=== PATIENT | male | born 1945 | race Caucasian/White ===

== ENCOUNTER 2024-05-09 10:30 | Emergency (ER) | payer MEDICARE, BC, SELFPAY ==
[2024-05-09 10:31] VITALS: BP 135/77; PULSE 113; RESP 18; TEMP 36.7; O2SAT 99
[2024-05-09] MEDS: Morphine 4 MG/ML Syringe IV (12:15)
[2024-05-09] MEDS: Ondansetron 4 MG/2 ML Vial IV (12:15)
[2024-05-09] MEDS: 0.9% Normal Saline (1000mL) 1,000 ML 999 ML IV (12:15)
--- NOTE | 2024-05-09 12:19 | EX.ED.DYSGE1 ---
HPI History of Present Illness Chief Complaint: Abd Pain Narrative Narrative: Chief complaint and HPI: Abdominal pain. 78-year-old male with history of untreated prostate cancer and remote history of kidney stones presents for evaluation of abdominal pain. Patient states 2 weeks ago he fell and since then has been having abdominal pain. He states originally the pain started in the right side of his back but then radiated to the right lower quadrant. He describes it as sharp. Worse with palpation and movement. Patient endorses 3 days of constipation. He has been eating and drinking. He endorses good urination. He denies any fever, chills, shortness of breath, chest pain, nausea, vomiting, dysuria, testicular pain. Denies history abdominal surgeries. Review of systems: See HPI Medications: As listed on the chart Allergies: As listed on the chart PFSH: Per chart Vital signs: As listed on the chart. Reviewed. Physical exam: Gen: A&O x3, NAD Head: Normocephalic, atraumatic Eyes: No sclera icterus, conjunctiva clear ENT: Moist mucous membranes Neck: Trachea midline, No JVD CV: RRR, no murmurs, no peripheral edema Resp: Lungs CTA BL, no w/r/c GI: Abd soft, non-distended, tender to palpation in the right lower quadrant and suprapubic region, + guarding, no rebound or rigidity : Circumcised penis. No penile tenderness or discharge. No penile or testicular swelling. Normal lie and position of the testicles. No testicular tenderness, masses, or skin changes. Cremasteric reflexes intact and equal bilaterally. No rashes. No palpable hernias. No CVA tenderness Musc: Full ROM, no deformity, no midline spinal tenderness , no bony step-off Skin: Warm, dry Neuro: Alert, oriented, grossly intact, sensation intact Psych: Cooperative, appropriate mood and affect PFSH PFSH Medical History no medical history Allergy/AdvReac Type Severity Reaction Status Date / Time No Known Allergies Allergy Verified 05/09/24 10:30 Family History no significant family his Surgical History no surgical history Social History Smoking Status: Never smoker EXAM Physical Exam Const Vital Signs: 05/09/24 10:31 05/09/24 12:30 05/09/24 14:00 Temperature 98.1 F Temperature Source Oral Pulse Rate 113 H 81 91 Respiratory Rate 18 16 16 Blood Pressure 135/77 H 126/81 H 114/69 Blood Pressure Mean 96 96 84 Pulse Ox 99 98 98 Oxygen Delivery Method Room Air Room Air Room Air MDM MDM MDM Narrative Medical decision making narrative: 78-year-old male with history of untreated prostate cancer and remote history of kidney stones presents for evaluation of abdominal pain. Differential diagnosis includes but is not limited to urolithiasis, UTI, appendicitis, colitis, constipation, electrolyte abnormality. NS bolus, morphine, Zofran ordered. Abdominal pain workup ordered. CBC without leukocytosis or anemia. CMP relatively unremarkable without USAMA, transaminitis. Lactic unremarkable. Lipase unremarkable. UA negative for UTI. CT abdomen pelvis shows mild hiatal hernia. Unremarkable appendix. Colonic diverticulosis without acute diverticulitis. Mildly enlarged prostate gland with distention of the urinary bladder, possible bladder outlet obstruction. On reviewing the imaging myself, patient's bladder is distended. He has been urinating here in the emergency department. Patient urinated 600 mL however on postvoid bladder scan he still had a liter in his bladder. I suspect his pain is secondary to urinary retention. Chowdhury catheter placed. On reexamination, patient's pain is improved with the Chowdhury placement. I suspect this is secondary to his prostate enlargement from his known prostate cancer. Patient is stable to discharge home. He will discharge home with a Chowdhury catheter. Follow-up with urology. He confirmed understanding. Return precautions explained. Impression: 1. Urinary retention 2. Enlarged prostate from known prostate cancer Lab Data Labs: Laboratory Results - last 24 hr 05/09/24 05/09/24 05/09/24 10:51 12:20 12:40 WBC 7.9 RBC 3.65 L Hgb 13.0 Hct 37.2 L MCV 101.9 H MCH 35.6 H MCHC 34.9 RDW Std Deviation 47.8 H RDW Coeff of Jam 12.8 Plt Count 175 MPV 9.2 Immature Gran % (Auto) 0.400 Neut % (Auto) 71.0 H Lymph % (Auto) 18.1 L Sur[place] % (Auto) 8.3 Eos % (Auto) 1.6 Baso % (Auto) 0.6 Absolute Neuts (auto) 5.6 Absolute Lymphs (auto) 1.44 Nucleated RBC % 0 Differential Comment Not Reportable Platelet Estimate Not Reportable Sodium 137 Potassium 3.8 Chloride 103 Carbon Dioxide 24.0 Anion Gap 10 BUN 19 H Creatinine 1.03 Est GFR (MDRD) Af Amer 89 Est GFR (MDRD) Non-Af 74 BUN/Creatinine Ratio 18.4 Glucose 117 H Lactic Acid 1.1 Calcium 9.6 Total Bilirubin 0.70 AST 24 ALT 32 Alkaline Phosphatase 78 Total Protein 7.7 Albumin 4.3 Globulin 3.4 Albumin/Globulin Ratio 1.3 Lipase 32 Urine Color Straw Urine Clarity Clear Urine pH 6.0 Ur Specific [place] 1.020 Urine Protein Negative Urine Glucose (UA) Normal Urine Ketones Negative Urine Occult Blood Negative Urine Nitrite Negative Urine Bilirubin Negative Urine Urobilinogen Normal Ur Leukocyte Esterase Negative Urine RBC 0 SEEN Urine WBC 0 SEEN Ur Squamous Epith Cells 0 SEEN Urine Bacteria 0 SEEN Urine Mucus 0 SEEN Radiography Diagnostic Testing: Clinical Impression(s) from Imaging Studies Abdomen/Pelvis CT 05/09/24 13:27 IMPRESSION: Mild hiatal hernia. Unremarkable appendix. Colonic diverticulosis without acute diverticulitis. Mildly enlarged prostate gland with distention of the urinary bladder, possible bladder outlet obstruction. Electronically Signed: Daphne Duggan MD at 14:06 EST Reading Location ID and State: [facility] / [place] Tel , Service support , Discharge Plan Triage Chief Complaint: Abd Pain ED Provider: Marin Platt Dx/Rx/DC Orders Clinical Impression: Acute urinary retention Instructions: ED Urinary Retention, Male Primary Care Provider: Ailin Magallon Referrals: Ailin Magallon MD [Primary Care Provider] - 3-5 Days Aron Soto MD [Med Staff - Active Staff] - 3-5 Days Activity Restrictions/Additional Instructions: Follow-up with urology and PCP. Chowdhury to remain in until removed by urology. Print Language: Yakut Disposition Disposition: Home, Self Care Discharge Date/Time: 05/09/24 15:36
[2024-05-09 12:30] VITALS: BP 126/81; PULSE 81; RESP 16; O2SAT 98
[2024-05-09 12:34] LABS: Bacteria 0 SEEN /hpf (None Seen); Mucous, Urine 0 SEEN /hpf (<or=2+); Red Blood Cells-Urine 0 SEEN /hpf (0-5); Squamous Epithelial Cells - UA 0 SEEN /hpf (0-5); White Blood Cells 0 SEEN /hpf (0-5)
[2024-05-09 12:36] LABS: Color, Urine Straw (Yellow); Glucose, Dipstick Normal (Normal); Ketone-Dipstick Negative (Negative); Leukocyte Esterase-Dipstick Negative /ul (Negative); Nitrite-Dipstick Negative (Negative); Occult Blood-Urine Negative /ul (Negative); Protein-Dipstick Negative (Negative); Urine Bilirubin Dipstick Negative (Negative); Urine Clarity Clear (Clear); Urine Urobilinogen Normal (Normal)
[2024-05-09 12:49] LABS: Absolute Lymphocyte Count 1.44 X10^3/uL (0.83-4.51); Absolute Neutrophil Count 5.6 X10^3/uL (2.0-7.7); Basophil# 0.05 X10^3/uL; Basophil% 0.6 % (0-1); Eosinophil# 0.13 X10^3/uL; Eosinophils% 1.6 % (0-5); Hematocrit 37.2 % (40-54); Lymphocyte # 1.44 X10^3/ul (0.83-4.51); Lymphocyte % 18.1 % (19-41); Mean Corp Hgb Conc 34.9 g/dL (32-36); Mean Corpuscular Hgb 35.6 pg (27.0-32.0); Mean Corpuscular Volume 101.9 fL (80-94); Mean Platelet Vol. 9.2 fl (6.2-12.0); Monocyte# 0.66 X10^3/uL; Monocyte% 8.3 % (0-10); NRBC Flagged by Analyzer 0 % (0-5); Neutrophil # 5.63 X10^3/uL (2.7-7.7); Platelet Count 175 K/mm3 (150-450); RBC Distribution Width CV 12.8 % (11.6-14.6); RBC Distribution Width SD 47.8 fl (35.1-43.9); Red Blood Count 3.65 M/mm3 (4.6-6.2); White Blood Count 7.9 K/mm3 (4.4-11.0)
[2024-05-09 13:08] LABS: ALB/GLOB Ratio 1.3 RATIO (0.9-2.4); AST(SGOT) 24 U/L (15-37); Alanine Aminotransfer ALT/SGPT 32 U/L (16-61); Albumin, Serum 4.3 g/dL (3.2-5.0); Alkaline Phosphatase 78 U/L (45-117); Anion Gap 10 (5-15); BUN 19 mg/dL (7-18); BUN/Creat Ratio 18.4 RATIO (10-20); Calcium,Total 9.6 mg/dL (8.5-10.1); Chloride 103 mmol/L (98-107); Creatinine, Serum 1.03 mg/dL (0.70-1.30); EST Glomerular Filtration Rate 74 mL/min (>60); Est Glom Filt Rate - Afr Amer 89 mL/min (>60); Globulin 3.4 g/dL (2.2-4.2); Glucose 117 mg/dL (74-106); Lipase 32 U/L (13-75); Potassium 3.8 mmol/L (3.5-5.1); Protein, Total 7.7 g/dL (6.4-8.2); Sodium Level 137 mmol/L (136-145)
[2024-05-09 13:18] LABS: Lactic Acid 1.1 mmol/L (0.4-1.9)
--- NOTE | 2024-05-09 13:27 | CT_ITS ---
HISTORY: Right lower quadrant abdominal pain. TECHNIQUE: Helically acquired images were obtained of the abdomen and pelvis after the intravenous administration of 100 mL Isovue-370. A radiation dose optimization technique was used for this scan. 499 images. COMPARISON: None. FINDINGS: LOWER CHEST: Small triangular juxtapleural nodules in the right lung base which do not require follow-up. BOWEL: Mild hiatal hernia. Bowel including appendix nondilated. No periappendiceal inflammation. Mild chronic diverticulosis without pericolonic inflammation. PERITONEUM: No significant ascites. LIVER: No enhancing mass. GALLBLADDER/BILIARY TREE: Gallbladder present. SPLEEN/PANCREAS: Homogeneous and nonenlarged. ADRENAL GLANDS: No nodules. KIDNEYS: No hydronephrosis. Simple cysts measuring up to 2.5 cm on the left; follow-up not indicated. VESSELS: No abdominal aortic aneurysm. Mild atherosclerosis of the abdominal aorta and its major branches. PELVIC ORGANS: 5.3 x 6.3 cm prostate gland. Distended urinary bladder. BONES: Degenerative change. CT/Abdomen/Pelvis W IV Cont ONLY IMPRESSION: Mild hiatal hernia. Unremarkable appendix. Colonic diverticulosis without acute diverticulitis. Mildly enlarged prostate gland with distention of the urinary bladder, possible bladder outlet obstruction. Electronically Signed: Daphne Duggan MD at 14:06 EST ,
[2024-05-09 14:00] VITALS: BP 114/69; PULSE 91; RESP 16; O2SAT 98
== END 2024-05-09 15:36 | disposition home or self-care (01) ==
PROVIDERS: Emergency Provider Surgery; PCP Internal Medicine; Visit Provider Surgery
DX: N40.1 Benign prostatic hyperplasia with lower urinary tract symptoms (principal); C61 Malignant neoplasm of prostate; R33.8 Other retention of urine; K44.9 Diaphragmatic hernia without obstruction or gangrene; K57.30 Diverticulosis of large intestine without perforation or abscess without bleeding; Z87.442 Personal history of urinary calculi
CPT/HCPCS: 51702; 74177; 80053; 81001; 83605; 83690; 85025; 96361; 96374; 96375; 99284; Q9967; A4216; J2405

== ENCOUNTER 2024-05-22 14:34 | Inpatient (IN) | payer MEDICARE, BC, SELFPAY ==
[2024-05-22 14:35] VITALS: BP 106/88; PULSE 76; RESP 18; TEMP 36.9; O2SAT 98; BMI 33.5
--- NOTE | 2024-05-22 14:53 | RAD_ITS ---
INDICATION: fall EXAMINATION/TECHNIQUE: X-RAY - XR Hip Unilateral with Pelvis when performed; 2-3 Views COMPARISON: No relevant prior comparison study available FINDINGS: PELVIC BONES: No displaced fracture, destructive or sclerotic lesions. Note that overlapping bowel shadows may however obscure fine detail. Sacroiliac joints are unremarkable. No widening of the pubic symphysis. HIPS: There are degenerative changes of the head characterized by joint space narrowing, subchondral sclerosis and marginal osteophytes. SOFT TISSUES: No soft tissue swelling or gas. RAD/HIP, UNI W/ Pelvis 2-3 Views IMPRESSION: Degenerative changes of the hips. Electronically Signed: Marielena Roper MD at 16:23 EST ,
--- NOTE | 2024-05-22 14:53 | EKG12_ITS ---
Test Reason : WEAKNESS Blood Pressure : */* mmHG Vent. Rate : 75 BPM Atrial Rate : 75 BPM P-R Int : 156 ms QRS Dur : 120 ms QT Int : 406 ms P-R-T Axes : 15 -53 36 degrees QTcB Int : 453 ms Sinus rhythm with Premature atrial complexes Left anterior fascicular block Septal infarct , age undetermined Abnormal ECG Confirmed by GREGORIO BHARDWAJ, REJI ([id number]), rewrite editor HARI PINEDA ([id number]) on 05/24/2024 2:16:33 PM Referred By: Mich Stokes Confirmed By: REJI PERKINS MD
--- NOTE | 2024-05-22 14:53 | RAD_ITS ---
INDICATION: fall EXAMINATION/TECHNIQUE: X-RAY - RIGHT XR Elbow Min 3 Views COMPARISON: No relevant prior comparison study available FINDINGS: SOFT TISSUES: No soft tissue swelling or gas. No radiopaque foreign body. BONES/JOINTS: There are intra-articular lucencies within the coronoid process. No dislocation is visualized. Normal alignment. No sclerotic or destructive changes observed. RAD/Elbow min 3 Views IMPRESSION: Findings concerning for a nondisplaced coronoid process fracture. Electronically Signed: Marielena Roper MD at 16:18 EST ,
--- NOTE | 2024-05-22 14:53 | CT_ITS ---
INDICATION: fall and trauma EXAMINATION: CT BRAIN - CT Head or Brain W/O Contrast Injection TECHNIQUE: Multiple axial images were obtained of the head without intravenous contrast. The protocol utilizes one or more of the following dose reduction techniques: automated exposure control, adjustment of mA and/or kV according to patient size,and/or use of iterative reconstruction technique. IV Contrast dosage and agent: None. RADIATION DOSAGE (If Supplied By Facility): CTDIvol = ( 44.99 ) mGy, DLP = ( 863.60 ) mGycm COMPARISON: No relevant prior comparison study available FINDINGS: BRAIN PARENCHYMA: No intra- or extra-axial hemorrhage. No evidence of acute infarct. No intracranial mass or mass effect. There is preservation of the lester/white matter interface. Posterior fossa structures are unremarkable. CSF SPACES: Appropriate for age. No hydrocephalus. Basal cisterns are patent. CALVARIUM, SKULL BASE, PARANASAL SINUSES AND MASTOID AIR CELLS: There is minimal opacification of the paranasal sinuses. There is a separate dedicated CT report of the maxillofacial bones. No discrete lytic or blastic abnormalities. ORBITS: Both globes, extraocular muscles, optic nerves and retrobulbar fat appear unremarkable. ASPECTS Score for Acute Strokes: 10 CT/Brain/Head without Contrast IMPRESSION: No acute intracranial process. Mild pansinusitis. Electronically Signed: Marielena Roper MD at 15:58 EST ,
--- NOTE | 2024-05-22 14:56 | ED.VIS.FALL ---
HPI HPI - Fall History of Present Illness Chief Complaint: Fall Informant: patient and family ( adult son) Occured/Mechanism Occurred: Today and Yesterday Mechanism/Context: Yes same level fall and Yes slip Usually ambulates: Without assistance Pain/Injury Pain Location: head, pelvis, upper extremity and lower extremity Quality of Pain: Dull and Aching Current Severity: Mild Maximum Severity: Mild Associated Symptoms Associated Symptoms: Positive for Weakness; Negative for Parasthesias, Loss of function, Loss of consciousness or Amnesia Narrative Narrative: 78-year-old male past medical history of prostate cancer will review his trouble urinating often has to self cath. Also has a left knee and left shoulder replacement. Last night he was in bed probably around 7 or 8:00. He talked to his son right before that. And he was trying to get out of bed he can a rolled off the bed on the ground and was unable to get up after that time. Denies any LOC. Does state he hit the back of his head when he fell from the bed. He is not on blood thinners. He denies any neck or back pain. He denies any chest or abdominal pain. He also has some mild discomfort to his right elbow and left hip. States over the last several days he has had a fever as high as 1013. Denies any dysuria. No abdominal pain. No rash or significant cough. Prior similar symptoms: No Recent Illness/Hospitalization: No PFSH PFSH Medical History Hypertension Allergy/AdvReac Type Severity Reaction Status Date / Time No Known Allergies Allergy Verified 05/22/24 14:38 Surgical History Knee joint replacement status H/O shoulder replacement Shoulder joint replacement by other means Social History housing: house Smoking Status: Never smoker ROS ROS ED ROS Narrative Fever. Generalized weakness. Constitutional Constitutional ED: Reports fever(s) Eyes Eyes: Denies blurry vision ENT ENT ED: Denies ear pain Cardiovascular Cardiovascular: Denies chest pain Respiratory/Chest Respiratory/Chest: Denies cough or dyspnea Gastrointestinal Gastrointestinal: Denies abdominal pain Genitourinary Genitourinary ED: Denies dysuria or hematuria Musculoskeletal Musculoskeletal: Denies arthralgias Integumentary Denies abscess Neurologic Neurologic: Denies headache(s) Psychiatric Psychiatric: Denies anxiety Endocrine Endocrinology: Denies polydipsia or polyphagia Hematologic/Lymphatic Hematologic/Lymphatic: Denies easy bleeding or easy bruising Allergic/Immunologic Allergic/Immunologic ED: Denies mouth swelling, tongue swelling or urticaria EXAM Physical Exam Narrative Exam Narrative: 78-year-old male lying flat in bed. Son present in the room also one of her nurses. Vital signs are stable currently is afebrile 98.4. He does not look septic or toxic. Currently he is in no distress. H EENT exam pupils round react light. Moist mucous membranes. There is no hematoma or laceration to his scalp. No trauma to his face. Neck and is nontender. Trachea midline. Lungs clear to auscultation bilaterally. Heart regular rhythm rate about 75 no murmur. Chest wall ribs nontender. Abdomen soft nontender. Nursed is already straight cath patient. He is put out about 800 cc of yellow urine. No blood is not cloudy. He is moving all 4 extremities. No gross bony deformity. Mild tenderness to his right elbow and left lateral hip. No deformity. Normal transmitter supervisor strength. Shoulders are nontender. He is able to flex and extend both knees dorsi and plantarflex both ankles. There is no shortening or rotation. Skin unremarkable. He is awake and alert. He knows he is in the hospital. He knows his April is tomorrow. He is answering questions and following commands. Const Vital Signs: 05/22/24 14:35 05/22/24 14:38 05/22/24 16:34 Temperature 98.4 F Temperature Source Oral Pulse Rate 76 Respiratory Rate 18 Respiratory Effort Normal Non-Labored Respiratory Depth Normal Respiratory Pattern Normal Blood Pressure 106/88 H Blood Pressure Mean 94 Pulse Ox 98 99 Oxygen Delivery Method Room Air Room Air 05/22/24 16:34 Temperature Temperature Source Pulse Rate 77 Respiratory Rate 16 Respiratory Effort Respiratory Depth Respiratory Pattern Blood Pressure 124/78 H Blood Pressure Mean 93 Pulse Ox 99 Oxygen Delivery Method Positive well nourished and well developed; Negative for cachectic, contractures or unkempt General Appearance ED: well developed and NAD; Negative for unkempt, cachectic or contractures Nutritional Appearance: Negative for cachectic HEENT Reports normocephalic HEENT Narrative: History of head trauma but no hematoma or laceration. No significant scalp tenderness. atraumatic; Negative for contusion, hematoma or tenderness Eyes PERRL and EOMs intact bilaterally General Eye ED: Negative for pale conjunctiva or scleral icterus Neck full ROM, no lymphadenopathy and supple General: Negative for tenderness Chest Wall inspection of chest normal and palpation of chest normal Resp normal respiratory effort, no retractions and clear to auscultation bilaterally Auscultation: Negative for rales, rhonchi, wheezes or diminished lung sounds Cardio regular rate, regular rhythm, S1 normal heart sound, S2 normal heart sound and no murmurs Rate: Negative for bradycardia or tachycardic GI non-tender, non-distended and no masses Inspection: Negative for abdominal distention Palpation: soft; Negative for guarding or rebound tenderness present Back/Spine no CVA tenderness Cervical Spine: Negative for cervical spine tenderness Thoracic Spine / Upper Back: Negative for ROM limited Lumbar Spine / Lower Back: Negative for lumbar spinal tenderness Neuro oriented x3, CN's II-XII intact bilaterally, moves all extremities and no focal motor deficits [place] Coma Scale: document GCS findings Spontaneous Obeys Commands Oriented 15 Sensorium / Orientation: alert, oriented to person, oriented to place and oriented to time; Negative for orientation impaired, confused, lethargic or stuporous Motor Exam: strength 5/5 throughout; Negative for general weakness Psych Appearance: Negative for unkempt Skin Lesions: no lesions Rashes: no rashes MDM MDM MDM Narrative Medical decision making narrative: 78-year-old male fell last night around 7:00 flight on the floor the today he was found by family. Complaining of mild right elbow and left hip discomfort. States he hit his head was not knocked out is not on blood thinners. He is also recently had a fever of the last several days but not currently. He will undergo septic workup with a CAT scan of his head due to head trauma and x-ray of his right elbow and his left hip. He is receiving IV fluids. CPK-MB done to determine if he is in rhabdomyolysis. Repeat exam at 5:05 PM patient doing well. Both sons are present in the room. I went over all the different diagnoses with them including his leukocytosis, UTI, right elbow fracture and I explained that while we are in the room with the nurses. We placed a Chowdhury catheter due to his urinary retention and need to monitor his fluids in's and outs. Also has rhabdomyolysis. He will be admitted to the hospitalist to have on page. History & Record Review Discussion w/independent historian: Patient and Family Additional record(s) reviewed:: Prior inpatient record, Prior outpatient record, Prior ED visit, Prior labs and No prior records Lab Data Attestation: I reviewed the patient's lab results. Lab results narrative: COVID, flu and RSV negative. CBC shows an elevated white count of 14.9. H&H 12.9 and 38. Platelets 205. PT/INR is 16 and 1. PTT 33. Electrolytes show a gap of 6. BUN of 22 creatinine 0.94. Glucose 105. Lactic acid 2. Liver enzymes unremarkable AST 248. CPK elevated at 9519. Urinalysis positive nitrates. 5-10 red cells 25-50 white cells 2+ bacteria culture will be sent. To be treated for UTI. Labs: Laboratory Results - last 24 hr 05/22/24 05/22/24 15:13 15:27 WBC 14.9 H RBC 3.69 L Hgb 12.9 L Hct 38.1 L MCV 103.3 H MCH 35.0 H MCHC 33.9 RDW Std Deviation 49.2 H RDW Coeff of Jam 12.9 Plt Count 205 MPV 9.0 Immature Gran % (Auto) 0.500 Neut % (Auto) 83.4 H Lymph % (Auto) 7.7 L Bonner % (Auto) 7.6 Eos % (Auto) 0.2 Baso % (Auto) 0.6 Absolute Neuts (auto) 12.4 H Absolute Lymphs (auto) 1.15 Nucleated RBC % 0 PT 16.1 H INR 1.3 APTT 33.5 Sodium 140 Potassium 4.2 Chloride 107 Carbon Dioxide 26.0 Anion Gap 6 BUN 22 H Creatinine 0.94 Estim Creat Clear Calc 81.06 Est GFR (MDRD) Af Amer 99 Est GFR (MDRD) Non-Af 82 BUN/Creatinine Ratio 23.4 H Glucose 105 Lactic Acid 2.0 Calcium 9.2 Total Bilirubin 0.60 AST 248 H ALT 75 H Alkaline Phosphatase 79 Total Creatine Kinase 9519 H Total Protein 7.8 Albumin 3.2 Globulin 4.6 H Albumin/Globulin Ratio 0.7 L Urine Color Yellow Urine Clarity Sl. Cloudy Urine pH 5.0 Ur Specific [place] 1.025 Urine Protein 100 H Urine Glucose (UA) Normal Urine Ketones 5 H Urine Occult Blood 250 H Urine Nitrite Positive H Urine Bilirubin Negative Urine Urobilinogen Normal Ur Leukocyte Esterase 100 H Urine RBC 5-10 SEEN Urine WBC 25-50 SEEN Ur Squamous Epith Cells 0 SEEN Urine Bacteria 2+ Urine Mucus 1+ Radiography Chest X-Ray - ED: 1 View, Read by ED Physician, Read by Radiologist, Heart, Lungs, Mediastinum, Bony Structures, No Acute Disease and Chronic Changes Diagnostic Testing: Clinical Impression(s) from Imaging Studies Brain CT 05/22/24 14:53 IMPRESSION: No acute intracranial process. Mild pansinusitis. Electronically Signed: Marielena Roper MD at 15:58 EST , Elbow X-Ray 05/22/24 14:53 IMPRESSION: Findings concerning for a nondisplaced coronoid process fracture. Electronically Signed: Marielean Roper MD at 16:18 EST , Hip/Pelvis X-Ray 05/22/24 14:53 IMPRESSION: Degenerative changes of the hips. Electronically Signed: Marielena Roper MD at 16:23 EST , Cervical Spine CT 05/22/24 15:43 IMPRESSION: Multilevel degenerative changes. Status post anterior fusion of C4-C7. Electronically Signed: Marielena Roper MD at 16:04 EST , Facial/Sinus 05/22/24 15:43 IMPRESSION: No acute osseous injury. Mild pansinusitis. Electronically Signed: Marielena Roper MD at 16:12 EST , Chest X-Ray 05/22/24 15:50 IMPRESSION: No radiographic evidence of acute cardiopulmonary disease. Electronically Signed: Marielena Roper MD at 16:13 EST , Chest x-ray, portable, single view interpreted by myself and radiologist shows no acute abnormality. Chronic changes. No pneumonia. Normal cardiac silhouette. Right elbow x-ray interpreted by myself and radiologist. Very questionable nondisplaced right coronoid process fracture. Procedures Upper Extremity Splints Upper Extremity Splint: Orthoglass and Long arm Splint Fabrication: Fabricated (Well-padded Ortho-Glass.) Location: Right Critical Care Time Critical Care Time: Yes Critical care time (excluding procedures): 30-74 minutes, Including time spent:, Discussing w/Patient &/or Family/Paint Technician, Discussing w/Consultants, Arranging Admission or Transfer, Performing Direct Patient Care at Bedside and - (33 minutes) Discharge Plan Dx/Rx/DC Orders Clinical Impression: Fall, Rhabdomyolysis, Fever, Acute UTI, Weakness, Closed fracture of right elbow, Leukocytosis, Acute on chronic urinary retention Disposition Disposition: [facility]
[2024-05-22 15:17] LABS: Squamous Epithelial Cells - UA 0 SEEN /hpf (0-5)
[2024-05-22 15:19] LABS: Color, Urine Yellow (Yellow); Glucose, Dipstick Normal (Normal); Ketone-Dipstick 5 mg/dl (Negative); Leukocyte Esterase-Dipstick 100 /ul (Negative); Nitrite-Dipstick Positive (Negative); Occult Blood-Urine 250 /ul (Negative); Protein-Dipstick 100 mg/dl (Negative); Specific Gravity, Urine 1.025 (1.002-1.030); Urine Bilirubin Dipstick Negative (Negative); Urine Clarity Sl. Cloudy (Clear); Urine Urobilinogen Normal (Normal)
[2024-05-22] MEDS: 0.9% Normal Saline (1000mL) 1,000 ML 999 ML IV (15:35)
[2024-05-22 15:40] LABS: White Blood Cells 25-50 SEEN /hpf (0-5)
[2024-05-22 15:41] LABS: Red Blood Cells-Urine 5-10 SEEN /hpf (0-5)
[2024-05-22 15:42] LABS: Mucous, Urine 1+ /hpf (<or=2+)
[2024-05-22 15:43] LABS: Bacteria 2+ /hpf (None Seen)
--- NOTE | 2024-05-22 15:43 | CT_ITS ---
INDICATION: FALL,INJURY EXAMINATION: CT CERVICAL SPINE - CT Spine Cervical W/O Contrast Injection TECHNIQUE: Helically acquired images were obtained of the cervical spine. 2D reformatted images were reviewed. The protocol utilizes one or more of the following dose reduction techniques: automated exposure control, adjustment of mA and/or kV according to patient size,and/or use of iterative reconstruction technique. IV Contrast dosage and agent: None. RADIATION DOSAGE (If Supplied By Facility): CTDIvol = ( 25.59 ) mGy, DLP = ( 500.06 ) mGycm COMPARISON: CT of the neck soft tissues FINDINGS: VERTEBRAE: There is evidence of prior anterior fusion of C4-C7 with a plate and screw fixation device. There is multilevel facet hypertrophy. No fracture or traumatic subluxation. No discrete lytic or blastic abnormality. Normal alignment. Normal craniocervical junction and cervicothoracic junction. DISCS and SPINAL CANAL: There is multilevel degenerative disc disease. No critical stenosis. NECK SOFT TISSUES: No prevertebral soft tissue swelling. There is no cervical adenopathy. LUNG APICES: Clear. CT/Spine Cervical without Contras IMPRESSION: Multilevel degenerative changes. Status post anterior fusion of C4-C7. Electronically Signed: Marielena Roper MD at 16:04 EST ,
--- NOTE | 2024-05-22 15:43 | CT_ITS ---
INDICATION: FALL, INJURY EXAMINATION: CT FACIAL BONES - CT Maxillofacial W/O Contrast Injection TECHNIQUE: Helically acquired images were obtained of the facial bones. A radiation dose optimization technique was used for this scan. The protocol utilizes one or more of the following dose reduction techniques: automated exposure control, adjustment of mA and/or kV according to patient size,and/or use of iterative reconstruction technique. IV Contrast dosage and agent: None. RADIATION DOSAGE (If Supplied By Facility): CTDIvol = ( 29.38 ) mGy, DLP = ( 562.15 ) mGycm COMPARISON: Prior study dated: Soft tissue neck CT dated July 21, 2007 FINDINGS: There is a separate dedicated CT report of the cervical spine. SOFT TISSUES: No focal subcutaneous swelling. No discrete fluid collections. VISUALIZED PARANASAL SINUSES: There is mild opacification of the paranasal sinuses. There is a stable cortical defect within the lateral wall of the left maxillary sinus. VISUALIZED MASTOID AIR CELLS: Clear. FACIAL BONES, MANDIBLE AND TMJs: No displaced facial bone fracture. No lytic or blastic abnormality. ORBITAL CONTENTS: Both globes, extraocular muscles and retrobulbar fat appear unremarkable. CT/Sinus/Facial Bone IMPRESSION: No acute osseous injury. Mild pansinusitis. Electronically Signed: Marielena Roper MD at 16:12 EST ,
[2024-05-22 15:47] LABS: Absolute Lymphocyte Count 1.15 X10^3/uL (0.83-4.51); Absolute Neutrophil Count 12.4 X10^3/uL (2.0-7.7); Basophil# 0.09 X10^3/uL; Basophil% 0.6 % (0-1); Eosinophil# 0.03 X10^3/uL; Eosinophils% 0.2 % (0-5); Hematocrit 38.1 % (40-54); Hemoglobin 12.9 g/dL (13.0-16.5); Lymphocyte # 1.15 X10^3/ul (0.83-4.51); Lymphocyte % 7.7 % (19-41); Mean Corp Hgb Conc 33.9 g/dL (32-36); Mean Corpuscular Volume 103.3 fL (80-94); Monocyte# 1.13 X10^3/uL; Monocyte% 7.6 % (0-10); NRBC Flagged by Analyzer 0 % (0-5); Neutrophil # 12.43 X10^3/uL (2.7-7.7); Neutrophil % 83.4 % (47-70); Platelet Count 205 K/mm3 (150-450); RBC Distribution Width CV 12.9 % (11.6-14.6); RBC Distribution Width SD 49.2 fl (35.1-43.9); Red Blood Count 3.69 M/mm3 (4.6-6.2); White Blood Count 14.9 K/mm3 (4.4-11.0)
--- NOTE | 2024-05-22 15:50 | RAD_ITS ---
INDICATION: fever EXAMINATION/TECHNIQUE: X-RAY - XR Chest 1 View COMPARISON: ) Shoulder dated April 08, 2004 FINDINGS: LINES/DEVICES: None. LUNGS: No consolidation, edema or effusion. No pneumothorax. MEDIASTINUM AND CARDIOVASCULAR STRUCTURES: Cardiac silhouette not enlarged. Central airways and mediastinal contour are unremarkable. 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 RAD/Chest 1 View (Portable) IMPRESSION: No radiographic evidence of acute cardiopulmonary disease. Electronically Signed: Marielena Rpoer MD at 16:13 EST ,
[2024-05-22 15:56] LABS: International Normalized Ratio 1.3; Partial Thromboplast Time 33.5 Seconds (24.1-36.2); Prothrombin Time (Protime)PT. 16.1 SECONDS (11.7-14.9)
[2024-05-22] MEDS: Acetaminophen 500 MG Tablet 1000 MG PO (16:04)
[2024-05-22 16:28] LABS: ALB/GLOB Ratio 0.7 RATIO (0.9-2.4); AST(SGOT) 248 U/L (15-37); Alanine Aminotransfer ALT/SGPT 75 U/L (16-61); Albumin, Serum 3.2 g/dL (3.2-5.0); Alkaline Phosphatase 79 U/L (45-117); Anion Gap 6 (5-15); BUN 22 mg/dL (7-18); BUN/Creat Ratio 23.4 RATIO (10-20); CPK Total, Creatine Kinase 9519 U/L (39-308); Calcium,Total 9.2 mg/dL (8.5-10.1); Chloride 107 mmol/L (98-107); Creatinine, Serum 0.94 mg/dL (0.70-1.30); EST Glomerular Filtration Rate 82 mL/min (>60); Est Glom Filt Rate - Afr Amer 99 mL/min (>60); Estimated Creatinine Clearance 81.06 ml/min; Globulin 4.6 g/dL (2.2-4.2); Glucose 105 mg/dL (74-106); Potassium 4.2 mmol/L (3.5-5.1); Protein, Total 7.8 g/dL (6.4-8.2); Sodium Level 140 mmol/L (136-145)
[2024-05-22 16:34] VITALS: BP 124/78; PULSE 77; RESP 16; O2SAT 99
[2024-05-22] MEDS: Ceftriaxone 1 GM/50 ML BAG IV (17:32)
--- NOTE | 2024-05-22 17:57 | CASEMGMT ---
Care Management Face to Face with patient for initial transition planning/care coordination assessment in the ED.? This contract writer introduced self and role at [facility]. Patient lying in bed, alert and oriented. Patient willing to participate in assessment and is able to answer all questions appropriately.? Patients sons at bedside and permission given for them to participate in assessment.? Care providers, pharmacy, and demographics verified. Admitting Diagnosis: Acute UTI ? PCP: [facility] Specialists: ??patient states he has a cancer doctor but does not recall name Preferred Pharmacy: [facility] Insurance: Medicare Prescription Benefit:?yes Living Will/HPOA: ?patient states he has a HPOA and Living Will, to bring in when able LNOK: Son Living Arrangements: patient lives alone in a ranch home.? Stairs to the basement, laundry is in basement.? Patient has been able to complete all ADLs, meals, laundry and cleaning although the sons say not to the level they should be completed. Transportation: Patient drives DME: cane, walker, walk in shower HHC: ?used once about 10 years ago SNF/Rehab: none Community Resources: none Patient goals: Patients sons state that patient will not be able to discharge home alone, they are considering patient going to live with one of them.? Patient seems to be in agreement at this time.? ? Disposition Plan: admission to acute; RN CM/SW to follow for discharge planning needs that may arise. Taylor Collado, IRON MELTER, [employer]G [employer]OPPER
[2024-05-22 18:00] VITALS: BP 106/68; PULSE 67; RESP 18; O2SAT 98
[2024-05-22 18:14] VITALS: BP 106/68; PULSE 67; RESP 18; TEMP 37.2; O2SAT 98
[2024-05-22 18:25] VITALS: BP 128/56; PULSE 64; RESP 17; TEMP 36.3; O2SAT 100
[2024-05-22 18:33] VITALS: BMI 32.4
--- NOTE | 2024-05-22 18:37 | PCM.HP.STD ---
HPI - General General Date of Admission: 05/22/24 Date of Service: 05/22/24 Chief Complaint: Fall HPI Narrative DARLENE ISIDRO, is a 78 M history of prostate cancer, prior history of kidney stones, who was brought to the ED following a fall at home. Per the patient, last night around 8 PM he tried to get out of his bed, tripped over and fell on his right side, and could not get up again. He could not dial the emergency services or call his family members. He laid there for almost 15 hours and was discovered today around noon. He had a bowel movement while laying down and also had few episodes of urinary incontinence. His 2 sons found him, and since then he is having severe pain in his right elbow and associated with pain over his right side of the face. Denies any fevers chills shortness of breath chest pain, nausea vomiting. In the ED, WBC 14.9, hemoglobin 12.9, platelet count 205, PT 16.1, sodium 140, potassium 4.2, BUN 22, creatinine 0.9, lactic acid 2.0, AST 248, ALT 75, total creatinine kinase 9519, albumin 3.2, urine protein 100, urine nitrate positive, leukoesterase 100, WBC 25-50 with 2+ bacteria. [facility] Medical History Hypertension Allergy/AdvReac Type Severity Reaction Status Date / Time No Known Allergies Allergy Verified 05/22/24 14:38 Surgical History Knee joint replacement status H/O shoulder replacement Shoulder joint replacement by other means Social History housing: house Smoking Status: Never smoker ROS Review of Systems ROS Unobtainable: Denies due to encephalopathy, due to endotracheal tube, due to mental condition, due to mental status or other Constitutional Constitutional: Reports fatigue Eyes Eyes: Denies blurry vision, change in eye color, change in vision, discharge from eye(s), double vision, erythema, eye pain, loss of vision or other ENT HEENT: Denies abnormal hearing, dysphagia, ear pain, epistaxis, headache(s), hearing loss, nasal congestion, nasal discharge, post nasal drip, sinus pressure, sore throat or other Cardiovascular Cardiovascular: Denies chest pain, claudication, dyspnea on exertion, edema, lightheadedness, orthopnea, palpitations, paroxysmal nocturnal dyspnea, rapid heart rate, syncope or other Respiratory/Chest Respiratory/Chest: Denies cough, dyspnea, excessive phlegm production, hemoptysis, productive cough, shortness of breath at rest, shortness of breath with exertion, wheezing or other Gastrointestinal Gastrointestinal: Denies abdominal pain, coffee ground emesis, constipation, diarrhea, dyspepsia, hematemesis, hematochezia, loose stools, melena, nausea, vomiting or other Genitourinary Genitourinary: Denies burning urination, difficulty urinating, dysuria, hematuria, nocturia, urinary frequency, urinary hesitancy, urinary incontinence, urinary urgency or other Musculoskeletal Musculoskeletal: Reports arthralgias, back pain and joint pain Neurologic Neurologic: Denies abnormal gait, abnormal speech, confusion, disequilibrium, dizziness, focal weakness, headache(s), numbness, paresthesias, seizure-like activity, seizures, syncope, tingling, tremor(s) or other Psychiatric Psychiatric: Denies anxiety, depression, homicidal ideation, suicidal ideation or other Endocrine Endocrinology: Denies change in body appearance, cold intolerance, excessive sweating, heat intolerance, polydipsia, polyuria or other Hematologic/Lymphatic Hematologic/Lymphatic: Denies anemia, easy bleeding, easy bruising, lymphadenopathy or other Allergic/Immunologic Allergic/Immunologic: Denies rhinitis, hives, eczemia, asthma or other Vital Signs Vital Signs Vital Signs: 05/22/24 14:35 05/22/24 14:38 05/22/24 16:34 Temperature 98.4 F Temperature Source Oral Pulse Rate 76 Respiratory Rate 18 Respiratory Effort Normal Non-Labored Respiratory Depth Normal Respiratory Pattern Normal Blood Pressure 106/88 H Blood Pressure Mean 94 Pulse Ox 98 99 Oxygen Delivery Method Room Air Room Air 05/22/24 16:34 05/22/24 18:00 05/22/24 18:14 Temperature 98.9 F Temperature Source Pulse Rate 77 67 67 Respiratory Rate 16 18 18 Respiratory Effort Respiratory Depth Respiratory Pattern Blood Pressure 124/78 H 106/68 106/68 Blood Pressure Mean 93 80 80 Pulse Ox 99 98 98 Oxygen Delivery Method Room Air Weight Weight: 247 lb 5.738 oz Body Mass Index (BMI) 33.5 Physical Exam Const alert and oriented x3 HEENT normocephalic, head/scalp atraumatic, hearing grossly normal bilaterally and moist oral mucous membranes Eyes PERRL and EOMs intact bilaterally Neck no lymphadenopathy Resp normal respiratory effort and no retractions Cardio regular rate and regular rhythm GI GI Narrative: Slight tenderness present in the periumbilical, right and left iliac region Extremity normal to inspection Neuro oriented x3 Results Medical Records Data Attestation: I reviewed the patient's medical records Lab / Micro Data Attestation: I reviewed the patient's lab results. 05/22/24 15:27 05/22/24 15:27 Labs: Laboratory Results - last 24 hr 05/22/24 15:13: Urine Color Yellow, Urine Clarity Sl. Cloudy, Urine pH 5.0, Ur Specific [place] 1.025, Urine Protein 100 H, Urine Glucose (UA) Normal, Urine Ketones 5 H, Urine Occult Blood 250 H, Urine Nitrite Positive H, Urine Bilirubin Negative, Urine Urobilinogen Normal, Ur Leukocyte Esterase 100 H, Urine RBC 5-10 SEEN, Urine WBC 25-50 SEEN, Ur Squamous Epith Cells 0 SEEN, Urine Bacteria 2+, Urine Mucus 1+ 05/22/24 15:27: WBC 14.9 H, RBC 3.69 L, Hgb 12.9 L, Hct 38.1 L, MCV 103.3 H, MCH 35.0 H, MCHC 33.9, RDW Std Deviation 49.2 H, RDW Coeff of Jam 12.9, Plt Count 205, MPV 9.0, Immature Gran % (Auto) 0.500, Neut % (Auto) 83.4 H, Lymph % (Auto) 7.7 L, [place] % (Auto) 7.6, Eos % (Auto) 0.2, Baso % (Auto) 0.6, Absolute Neuts (auto) 12.4 H, Absolute Lymphs (auto) 1.15, Nucleated RBC % 0, PT 16.1 H, INR 1.3, APTT 33.5, Sodium 140, Potassium 4.2, Chloride 107, Carbon Dioxide 26.0, Anion Gap 6, BUN 22 H, Creatinine 0.94, Estim Creat Clear Calc 81.06, Est GFR (MDRD) Af Amer 99, Est GFR (MDRD) Non-Af 82, BUN/Creatinine Ratio 23.4 H, Glucose 105, Lactic Acid 2.0, Calcium 9.2, Total Bilirubin 0.60, AST 248 H, ALT 75 H, Alkaline Phosphatase 79, Total Creatine Kinase 9519 H, Total Protein 7.8, Albumin 3.2, Globulin 4.6 H, Albumin/Globulin Ratio 0.7 L Micro: Microbiology 05/22/24 15:13 Mucosa - Nose SARS-CoV-2, Influenza & RSV (PCR) - Final Imaging Radiology Impression Brain CT 05/22/24 14:53 IMPRESSION: No acute intracranial process. Mild pansinusitis. Electronically Signed: Marielena Roper MD at 15:58 EST , Elbow X-Ray 05/22/24 14:53 IMPRESSION: Findings concerning for a nondisplaced coronoid process fracture. Electronically Signed: Marielena Roper MD at 16:18 EST , Hip/Pelvis X-Ray 05/22/24 14:53 IMPRESSION: Degenerative changes of the hips. Electronically Signed: Marielena Roper MD at 16:23 EST , Cervical Spine CT 05/22/24 15:43 IMPRESSION: Multilevel degenerative changes. Status post anterior fusion of C4-C7. Electronically Signed: Marielena Roper MD at 16:04 EST , Facial/Sinus 05/22/24 15:43 IMPRESSION: No acute osseous injury. Mild pansinusitis. Electronically Signed: Marielena Roper MD at 16:12 EST , Chest X-Ray 05/22/24 15:50 IMPRESSION: No radiographic evidence of acute cardiopulmonary disease. Electronically Signed: Marielena Roper MD at 16:13 EST , Assessment & Plan Assessment/Plan (1) Acute on chronic urinary retention: PLAN: Plan 78-year-old male presents to the ED following a fall resulting in prolonged immobilization and features of rhabdomyolysis. He was also incidentally found to have urinary tract infection. #Rhabdomyolysis -Secondary to his fall, prolonged dehydration and new mobilization -Received 1 L of fluid in the ED -Normal saline at the rate 100 mL/h with close monitoring of urine output -Repeat creatinine, creatinine kinase levels tomorrow morning -Life alert before discharge -Case management, PT OT consult #Nondisplaced coronoid fracture -Pain management for now -Orthopedic evaluation for need for any surgical intervention -Immobilization #Urinary tract infection -Likely secondary to recurrent straight cath and urinary obstruction -IV ceftriaxone as started in the ED. -Follow urine cultures #DVT prophylaxis -Enoxaparin 40 mg subcu daily #Urinary tract obstruction -Secondary to prostate cancer -Patient does not want to be discharged on Chowdhury's catheter, voiding trial and straight cath trial at the time of discharge
[2024-05-22 19:38] LABS: Reflex Lactate? Y
[2024-05-22] MEDS: 0.9% Normal Saline (1000mL) 1,000 ML 100 ML IV (20:16)
[2024-05-22 23:55] VITALS: BP 124/78; PULSE 70; RESP 16; TEMP 36.4; O2SAT 99
[2024-05-23 03:40] VITALS: BP 118/58; PULSE 62; RESP 16; TEMP 36.6; O2SAT 95
[2024-05-23] MEDS: 0.9% Normal Saline (1000mL) 1,000 ML 100 ML IV (06:11)
[2024-05-23 06:39] LABS: Absolute Lymphocyte Count 1.41 X10^3/uL (0.83-4.51); Basophil# 0.08 X10^3/uL; Basophil% 0.7 % (0-1); Eosinophil# 0.26 X10^3/uL; Eosinophils% 2.2 % (0-5); Hematocrit 34.7 % (40-54); Hemoglobin 11.6 g/dL (13.0-16.5); Lymphocyte # 1.41 X10^3/ul (0.83-4.51); Lymphocyte % 11.8 % (19-41); Mean Corp Hgb Conc 33.4 g/dL (32-36); Mean Corpuscular Hgb 34.7 pg (27.0-32.0); Mean Corpuscular Volume 103.9 fL (80-94); Mean Platelet Vol. 9.3 fl (6.2-12.0); Monocyte# 1.13 X10^3/uL; Monocyte% 9.4 % (0-10); NRBC Flagged by Analyzer 0 % (0-5); Neutrophil # 9.01 X10^3/uL (2.7-7.7); Neutrophil % 75.1 % (47-70); Platelet Count 194 K/mm3 (150-450); RBC Distribution Width SD 49.9 fl (35.1-43.9); Red Blood Count 3.34 M/mm3 (4.6-6.2)
[2024-05-23 07:19] LABS: ALB/GLOB Ratio 0.6 RATIO (0.9-2.4); AST(SGOT) 205 U/L (15-37); Alanine Aminotransfer ALT/SGPT 70 U/L (16-61); Albumin, Serum 2.7 g/dL (3.2-5.0); Alkaline Phosphatase 69 U/L (45-117); Anion Gap 6 (5-15); BUN 16 mg/dL (7-18); BUN/Creat Ratio 21.1 RATIO (10-20); Bilirubin, Direct 0.12 mg/dL (0.00-0.30); Calcium,Total 8.4 mg/dL (8.5-10.1); Chloride 109 mmol/L (98-107); Creatinine, Serum 0.76 mg/dL (0.70-1.30); EST Glomerular Filtration Rate 105 mL/min (>60); Est Glom Filt Rate - Afr Amer 127 mL/min (>60); Estimated Creatinine Clearance 93.71 ml/min; Globulin 4.3 g/dL (2.2-4.2); Glucose 89 mg/dL (74-106); Magnesium 2.3 mg/dL (1.6-2.6); Potassium 3.8 mmol/L (3.5-5.1); Sodium Level 139 mmol/L (136-145)
[2024-05-23 07:33] LABS: Phosphorus 2.9 mg/dL (2.5-4.9)
[2024-05-23 08:38] LABS: International Normalized Ratio 1.5
[2024-05-23 09:40] VITALS: BP 121/81; PULSE 72; RESP 16; TEMP 36.6; O2SAT 96
[2024-05-23] MEDS: Ceftriaxone 1 GM/50 ML BAG IV (12:44)
[2024-05-23] MEDS: Aspirin 81 MG TAB.CHEW PO (12:45)
[2024-05-23] MEDS: Lisinopril 10 MG Tablet PO (12:45)
[2024-05-23] MEDS: hydroCHLOROthiazide 12.5mg 12.5 MG PO (12:45)
[2024-05-23] MEDS: Enoxaparin 40 MG/0.4 ML Syringe SC (12:46)
--- NOTE | 2024-05-23 14:38 | PCM.PN.HOSP ---
Reason for Visit Reason for Visit: Diagnoses Retention of urine, unspecified (05/22/24) Subjective Subjective Patient was seen and examined today, had a long discussion with patient's son who is in the room at the time of my examination. Patient has had an indwelling Chowdhury catheter placed for several days, he usually straight caths himself due to a history of prostate cancer but a catheter was placed in the ER and he was told to follow-up with urology in [place] but could not get an appointment until July. He does state he has an upcoming appointment with his current urologist in [facility]. Patient states that he fell down at home and was not able to get up due to the fact that he was extremely weak in his legs. Objective Data Objective Data Vital Signs: Vital Signs Temp Pulse Resp BP Pulse Ox O2 Del Method 97.8 F 72 16 121/81 H 96 Room Air 05/23/24 09:40 05/23/24 09:40 05/23/24 09:40 05/23/24 09:40 05/23/24 09:40 05/23/24 09:55 Oxygen Delivery Method Room Air Weight: 108.5 kg Body Mass Index (BMI) 32.4 Intake & Output: Intake and Output for Last 24 Hours 05/21/24 05/22/24 05/23/24 23:59 23:59 23:59 Intake Total 1050 / 1050 1041.67 / 1041.67 Output Total 300 / 300 350 / 350 Balance 750 / 750 691.67 / 691.67 Lab / Micro Data 05/23/24 05:24 05/23/24 05:24 Labs: Laboratory Results - last 24 hr 05/22/24 15:13: Urine Color Yellow, Urine Clarity Sl. Cloudy, Urine pH 5.0, Ur Specific [place] 1.025, Urine Protein 100 H, Urine Glucose (UA) Normal, Urine Ketones 5 H, Urine Occult Blood 250 H, Urine Nitrite Positive H, Urine Bilirubin Negative, Urine Urobilinogen Normal, Ur Leukocyte Esterase 100 H, Urine RBC 5-10 SEEN, Urine WBC 25-50 SEEN, Ur Squamous Epith Cells 0 SEEN, Urine Bacteria 2+, Urine Mucus 1+ 05/22/24 15:27: WBC 14.9 H, RBC 3.69 L, Hgb 12.9 L, Hct 38.1 L, MCV 103.3 H, MCH 35.0 H, MCHC 33.9, RDW Std Deviation 49.2 H, RDW Coeff of Jam 12.9, Plt Count 205, MPV 9.0, Immature Gran % (Auto) 0.500, Neut % (Auto) 83.4 H, Lymph % (Auto) 7.7 L, [place] % (Auto) 7.6, Eos % (Auto) 0.2, Baso % (Auto) 0.6, Absolute Neuts (auto) 12.4 H, Absolute Lymphs (auto) 1.15, Nucleated RBC % 0, PT 16.1 H, INR 1.3, APTT 33.5, Sodium 140, Potassium 4.2, Chloride 107, Carbon Dioxide 26.0, Anion Gap 6, BUN 22 H, Creatinine 0.94, Estim Creat Clear Calc 81.06, Est GFR (MDRD) Af Amer 99, Est GFR (MDRD) Non-Af 82, BUN/Creatinine Ratio 23.4 H, Glucose 105, Lactic Acid 2.0, Calcium 9.2, Total Bilirubin 0.60, AST 248 H, ALT 75 H, Alkaline Phosphatase 79, Total Creatine Kinase 9519 H, Total Protein 7.8, Albumin 3.2, Globulin 4.6 H, Albumin/Globulin Ratio 0.7 L 05/22/24 20:25: Lactic Acid 3.0 H* 05/23/24 05:24: WBC 12.0 H, RBC 3.34 L, Hgb 11.6 L, Hct 34.7 L, MCV 103.9 H, MCH 34.7 H, MCHC 33.4, RDW Std Deviation 49.9 H, RDW Coeff of Jam 13.0, Plt Count 194, MPV 9.3, Immature Gran % (Auto) 0.800, Neut % (Auto) 75.1 H, Lymph % (Auto) 11.8 L, [place] % (Auto) 9.4, Eos % (Auto) 2.2, Baso % (Auto) 0.7, Absolute Neuts (auto) 9.0 H, Absolute Lymphs (auto) 1.41, Nucleated RBC % 0, PT 18.0 H, INR 1.5, Sodium 139, Potassium 3.8, Chloride 109 H, Carbon Dioxide 25.0, Anion Gap 6, BUN 16, Creatinine 0.76, Estim Creat Clear Calc 93.71, Est GFR (MDRD) Af Amer 127, Est GFR (MDRD) Non-Af 105, BUN/Creatinine Ratio 21.1 H, Glucose 89, Calcium 8.4 L, Phosphorus 2.9, Magnesium 2.3, Total Bilirubin 0.50, Direct Bilirubin 0.12, AST 205 H, ALT 70 H, Alkaline Phosphatase 69, Total Protein 7.0, Albumin 2.7 L, Globulin 4.3 H, Albumin/Globulin Ratio 0.6 L, TSH 1.080 Micro: Microbiology 05/22/24 15:13 Mucosa - Nose SARS-CoV-2, Influenza & RSV (PCR) - Final Radiography Diagnostic Testing: Radiology Impression Brain CT 05/22/24 14:53 IMPRESSION: No acute intracranial process. Mild pansinusitis. Electronically Signed: Marielena Roper MD at 15:58 EST Reading Location ID and State: [facility] / [place] Tel , Service support , Elbow X-Ray 05/22/24 14:53 IMPRESSION: Findings concerning for a nondisplaced coronoid process fracture. Electronically Signed: Marielena Roper MD at 16:18 EST Reading Location ID and State: [facility] / [place] Tel , Service support , Hip/Pelvis X-Ray 05/22/24 14:53 IMPRESSION: Degenerative changes of the hips. Electronically Signed: Marielena Roper MD at 16:23 EST , Cervical Spine CT 05/22/24 15:43 IMPRESSION: Multilevel degenerative changes. Status post anterior fusion of C4-C7. Electronically Signed: Marielena Roper MD at 16:04 EST Reading Location ID and State: [facility] / [place] Tel , Service support , Facial/Sinus 05/22/24 15:43 IMPRESSION: No acute osseous injury. Mild pansinusitis. Electronically Signed: Marielena Roper MD at 16:12 EST , Chest X-Ray 05/22/24 15:50 IMPRESSION: No radiographic evidence of acute cardiopulmonary disease. Electronically Signed: Marielena Roper MD at 16:13 EST , Physical Exam Const alert, oriented x3, no apparent distress and healthy appearing General Appearance: cooperative, well kempt and well developed Orientation / Consciousness: awake, oriented to person, oriented to place and oriented to time HEENT normocephalic, head/scalp atraumatic and moist oral mucous membranes Eyes PERRL, EOMs intact bilaterally and conjunctivae normal Neck supple, no JVD, thyroid normal and no carotid bruits General: trachea midline Resp normal respiratory effort, no retractions, no use of accessory muscles and clear to auscultation bilaterally Auscultation: Negative for rales, rhonchi or wheezes Cardio regular rate, regular rhythm, S1 normal heart sound, S2 normal heart sound, no murmurs, no rub and no gallops GI normal to inspection, nondistended, normoactive bowel sounds, soft to palpation, non-tender and non-distended Extremity no clubbing, cyanosis or edema Skin no rashes or lesions noted General Skin Exam: no breakdown Neuro oriented x3, CN's II-XII intact bilaterally, moves all extremities, no focal motor deficits and no sensory deficits noted Sensorium / Orientation: awake and alert Speech: speech normal Psych affect normal Assessment & Plan Assessment/Plan (1) Acute UTI: PLAN: Plan 1. Acute cystitis related to temporary indwelling Chowdhury catheter-patient will remain on IV Rocephin, urine cultures pending, patient would like to try to discontinue his Chowdhury catheter and I told him tomorrow I would discontinue it and make sure that he was able to straight cath without a residual before he goes home. #2 rhabdomyolysis-patient's BMP will be rechecked tomorrow #3 prostate cancer-complicates care, management, recovery, and prognosis, patient is due to follow-up with his urologist as an outpatient #4 possible fracture of the coronoid process of the right elbow-orthopedic surgery will see the patient in consultation Total clinical time spent by myself addressing the patient's medical issues, reviewing all of his data, and collaborating with patient's care team: 35 minutes Charges/Coding Visit Charges Inpatient E&M: 80360 Subs Hosp L2
[2024-05-23 16:00] VITALS: BP 107/68; PULSE 71; RESP 18; TEMP 37.1; O2SAT 97
[2024-05-23 17:00] VITALS: BP 107/68; PULSE 71; RESP 18; TEMP 37.1; O2SAT 97
[2024-05-23] MEDS: Tamsulosin HCl 0.4 MG Capsule 0.8 MG PO (20:58)
[2024-05-23 22:54] VITALS: BP 116/68; PULSE 70; RESP 16; TEMP 37.1; O2SAT 96
[2024-05-24 05:00] VITALS: BP 117/70; PULSE 58; RESP 16; TEMP 36.4; O2SAT 95
[2024-05-24] MEDS: oxyCODONE 5 MG Tablet PO (05:48)
[2024-05-24 06:49] LABS: Anion Gap 5 (5-15); BUN 15 mg/dL (7-18); BUN/Creat Ratio 21.1 RATIO (10-20); Calcium,Total 8.7 mg/dL (8.5-10.1); Chloride 107 mmol/L (98-107); Creatinine, Serum 0.71 mg/dL (0.70-1.30); EST Glomerular Filtration Rate 113 mL/min (>60); Est Glom Filt Rate - Afr Amer 137 mL/min (>60); Estimated Creatinine Clearance 93.71 ml/min; Glucose 102 mg/dL (74-106); Potassium 3.5 mmol/L (3.5-5.1); Sodium Level 138 mmol/L (136-145)
--- NOTE | 2024-05-24 08:21 | CONS.ORTHO ---
HPI Consult Data Date of Consult: 05/24/24 HPI Narrative HPI Narrative: DARLENE ISIDRO, is a 78 M who presents with right elbow pain. Patient had a fall out of bed about a day and a half ago. The patient is right-hand dominant. He has pain in the right lateral aspect of the elbow. The patient was put in a splint for possible fracture and admitted due to rhabdomyolysis and urinary issues. [facility] Medical History (Updated 05/24/24 @ 08:25 by Jono Adler MD) Right elbow pain Kidney stones Non-smoker Asthma Hypertension Home Medications ?Medication ?Instructions ?Recorded ?Last Taken ?Type aspirin 81 mg capsule 81 mg PO DAILY prevention 05/22/24 Unknown History azelastine 137 mcg (0.1 %) nasal 1 spray intranasal DAILY nasal 05/22/24 Unknown History spray ergocalciferol (vitamin D2) 1,250 1,250 mcg PO .weekly bones 05/22/24 Unknown History mcg (50,000 unit) capsule lisinopril 10 1 tab PO DAILY bp 05/22/24 Unknown History mg-hydrochlorothiazide 12.5 mg tablet naproxen 500 mg tablet 500 mg PO BID PRN PRN pain 05/22/24 Unknown History polyethylene glycol 3350 17 17 g PO DAILY PRN bowels 05/22/24 Unknown History gram/dose oral powder tamsulosin 0.4 mg capsule 0.4 mg PO QHS bladder 05/22/24 Unknown History Allergy/AdvReac Type Severity Reaction Status Date / Time ramelteon Allergy hallucinati Verified 05/22/24 19:37 ons Surgical History Knee joint replacement status H/O shoulder replacement Shoulder joint replacement by other means Social History housing: house Smoking Status: Never smoker Vital Signs Vital Signs Vital Signs: 05/23/24 09:40 05/23/24 09:55 05/23/24 09:55 Temperature 97.8 F Temperature Source Temporal Pulse Rate 72 Pulse Strength Normal (2+) Respiratory Rate 16 Respiratory Effort Normal Non-Labored Respiratory Depth Normal Respiratory Pattern Normal Blood Pressure 121/81 H Blood Pressure Mean 94 Blood Pressure Source Monitor Blood Pressure Position Sitting Blood Pressure Location Left Arm Pulse Ox 96 Oxygen Delivery Method Room Air Room Air 05/23/24 14:00 05/23/24 16:00 05/23/24 17:00 Temperature 98.8 F 98.8 F Temperature Source Oral Oral Pulse Rate 71 71 Pulse Strength Respiratory Rate 18 18 Respiratory Effort Normal Non-Labored Respiratory Depth Normal Respiratory Pattern Normal Blood Pressure 107/68 107/68 Blood Pressure Mean 81 81 Blood Pressure Source Monitor Blood Pressure Position Semi-Fowlers Blood Pressure Location Left Arm Pulse Ox 97 97 Oxygen Delivery Method Room Air Room Air Room Air 05/23/24 22:00 05/23/24 22:00 05/23/24 22:54 Temperature 98.7 F Temperature Source Oral Pulse Rate 70 Pulse Strength Normal (2+) Respiratory Rate 16 Respiratory Effort Respiratory Depth Respiratory Pattern Blood Pressure 116/68 Blood Pressure Mean 84 Blood Pressure Source Monitor Blood Pressure Position Semi-Fowlers Blood Pressure Location Left Arm Pulse Ox 96 Oxygen Delivery Method Room Air Room Air 05/24/24 05:00 Temperature 97.6 F L Temperature Source Oral Pulse Rate 58 L Pulse Strength Respiratory Rate 16 Respiratory Effort Respiratory Depth Respiratory Pattern Blood Pressure 117/70 Blood Pressure Mean 85 Blood Pressure Source Monitor Blood Pressure Position Semi-Fowlers Blood Pressure Location Left Arm Pulse Ox 95 Oxygen Delivery Method Room Air Weight Weight: 239 lb 3.225 oz Body Mass Index (BMI) 32.4 Physical Exam Const alert, oriented x3, no apparent distress and well nourished General Appearance: well developed Extremity Extremity Narrative: Right upper extremity is in a splint. I remove the splint. There is some mild superficial abrasions the posterior aspect of the right elbow. Some mild area of ecchymosis to the lateral aspect of the elbow. Mild pain to the anterior and medial aspect of the elbow no pain to the radial head or posterior aspect of the elbow. Forearm compartment is soft. This is neurovascularly intact strong radial pulse normal sensation and motor function to the MRU and AIN/PIN nerves. Shoulder deltoid muscle is soft. No bruising up there or in the wrist no pain in the wrist or hand. Elbow moves fully and range of motion 0 to 135 degrees of flexion with full pronation and supination. No varus or valgus instability at 0 or 30 degrees of stress testing. Able to actively flex and extend at the elbow. Lab / Micro Data 05/23/24 05:24 05/24/24 05:22 Labs: Laboratory Results - last 24 hr 05/23/24 05:24: PT 18.0 H, INR 1.5 05/24/24 05:22: Sodium 138, Potassium 3.5, Chloride 107, Carbon Dioxide 26.0, Anion Gap 5, BUN 15, Creatinine 0.71, Estim Creat Clear Calc 93.71, Est GFR (MDRD) Af Amer 137, Est GFR (MDRD) Non-Af 113, BUN/Creatinine Ratio 21.1 H, Glucose 102, Calcium 8.7 Imaging [facility] Imaging Services [address] [place], [place] [id number] Elbow min 3 Views MR#: [id number] Acct: [id number] Name: DARLENE ISIDRO Rep #: [id number] : 1945 78 From: Marielena Roper MD PCP: Dr. Ailin Magallon MD Status: [facility] ER Study: Elbow min 3 Views Date of Exam: 05/22/24 Exam# [id number] Ordering Dr: Mich Stokes MD INDICATION: fall EXAMINATION/TECHNIQUE: X-RAY - RIGHT XR Elbow Min 3 Views COMPARISON: No relevant prior comparison study available FINDINGS: SOFT TISSUES: No soft tissue swelling or gas. No radiopaque foreign body. BONES/JOINTS: There are intra-articular lucencies within the coronoid process. No dislocation is visualized. Normal alignment. No sclerotic or destructive changes observed. RAD/Elbow min 3 Views IMPRESSION: Findings concerning for a nondisplaced coronoid process fracture. Electronically Signed: Marielena Roper MD at 16:18 EST , C: Dr. Ailni Magallon MD; Dr. Mich Stokes MD ~ I independently reviewed the imaging. I am not overly suspicious for a fracture. the joint space is aligned. Leather Belt Loop Cutter: Signed Assessment & Plan Assessment/Plan (1) Right elbow pain: PLAN: 78-year-old man with a right elbow pain after a fall. No signs of a compartment syndrome. He does have a superficial abrasion and some mild ecchymosis about the elbow - can do ointment and bandage if needed, but I have a relatively low suspicion of a fracture given the x-ray findings, good alignment of the joint and clinical findings of full range of motion and stable elbow with minimal pain. The patient is right-hand dominant - for now I think the best plan of action would be to remove the splint which I have done he can do some gentle range of motion at the elbow no heavy lifting gripping pushing or pulling or mobilizing with the elbow but see how the pain feels over the next couple days as long as there is minimal pain we will continue to do gentle range of motion without the splint and the patient will follow-up in the clinic. Even if there was a nondisplaced radial head fracture or very small coronoid fracture I would still recommend doing the same type of gentle range of motion with no heavy lifting and I will sign off on the patient and okay to follow-up in clinic in the next 1 to 2 weeks. Thanks for the consult.
[2024-05-24 10:04] VITALS: BP 111/78; PULSE 58; RESP 18; TEMP 36.6; O2SAT 96
[2024-05-24] MEDS: hydroCHLOROthiazide 12.5mg 12.5 MG PO (10:06)
[2024-05-24] MEDS: Aspirin 81 MG TAB.CHEW PO (10:06)
[2024-05-24] MEDS: Enoxaparin 40 MG/0.4 ML Syringe SC (10:06)
[2024-05-24] MEDS: Lisinopril 10 MG Tablet PO (10:06)
[2024-05-24] MEDS: Ceftriaxone 1 GM/50 ML BAG IV (10:06)
--- NOTE | 2024-05-24 12:09 | CASEMGMT ---
Social Work SW met w/pt and son Brayden in room in regard to discharge plan. Pt states did therapy today and he is moving well, son confirms this. SW spoke w/pt and son in regard to plan. Both in agreement at this time that pt will go home. Son Brayden states they are going to get a life alert button for pt, hire someone to help w/cleaning and laundry, and get some grab bars out from the basement to put up. Additionally pt has a lower bed frame in the basement so they are going to set this up, as pt's bed currently is very high. Pt explained his fall, that he could not reach his phone and it was a fluke thing. Pt states he brings his phone everywhere. He fell out of bed and the phone was on the bed, he could not reach it. SW offered support for pt having gone through this, he was on the floor for 18 hours. Pt states he is feeling so much better, is attributing his fall and weakness to the UTI he has. SW spoke w/pt and son Brayden about both home health and outpt PT, pt declined referrals for both. Pt and son explain son Ariel is also working on some things for pt and will be here shortly. They will ask for SW if they need anything, but at this time they are declining home health, outpt PT and DME. Pt has a walker already. SW offered to give information on home delivered meals, pt declined this as well. Pt's son Brayden states he has room in his home for pt to stay w/him if needed, but they are okay w/pt going home at this time. SW remains available should any needs arise. Plan: Home, no needs. SHIRAZ Putnam
--- NOTE | 2024-05-24 13:52 | CHAPLAIN ---
Type of Pastoral Visit _x__ Initial Visit ___ Follow-up Visit ___ On-call Visit ___ General Patient Visit ___ Spiritual Assessment ___ Family Conference ___ Bereavement ___ Rapid Response ___ Code Blue ___ Other (describe below) Pastoral Care Referral From _x__ Patient _x_ Family ___ Nurse ___ Physician ___ Water Taxi Boat Mate ___ Local Intermodal Truck Driver ___ Other (describe below) Sacrament/Intervention _x__ Active listening ___ Anointing ___ Druze ___ Bereavement ___ Communion ___ Alexsandra exploration ___ _x__ Life review _x__ Prayer ___ Reconciliation ___ Sacrament of Sick _x__ Supportive presence ___ Wedding ___ Other (describe below) Pastoral Comments patient speaks of his fall and lying on the floor for many hours before rescued; pt acknowledges that his situation at home will need to change for his safety in the future and speaks with his son openly about the possibilities; pt also reveals the loss of his a few years ago and how he is filled with the memories of her cancer journey; pt is emotional at moments during his reporting; calm presence, listening and waiting for patient responses, affirming his feelings, and offering support to his family that is present in the room; prayer requested and given
--- NOTE | 2024-05-24 14:29 | DCINST_ITS ---
Discharge Instructions Diet Discharge Diet: No restrictions DC O2, CPAP, BIPAP needs Home O2 Discharge instructions: No Dressing / Incision Discharge Activity: Return to Normal Activity Weight Bearing Status: Full weight bearing Follow Up Care Test Results: Test results from this visit will be discussed in further detail at your follow- up appointment, if applicable. Discharge Plan Admission Admit Date/Time: 05/22/24 17:51 Primary Reason for Your Visit: cystitis, debility Attending Provider: Brayden Gaona Primary Care Provider: Ailin Magallon Consulting Providers: Tyler Garcia; Jono Adler Instructions Additional Instructions / Restrictions: Follow-up with your urologist as scheduled Discharge Orders/Prescriptions Prescriptions: New tamsulosin 0.4 mg Capsule 0.8 mg PO QHS Qty: 60 0RF cefdinir 300 mg capsule 300 mg PO BID Qty: 8 0RF Rx Instructions: Start on 05/25/2024 Continued lisinopril-hydrochlorothiazide 10-12.5 mg tablet 1 tab PO DAILY aspirin 81 mg capsule 81 mg PO DAILY polyethylene glycol 3350 17 gram/dose powder 17 g PO DAILY PRN (Reason: bowels) azelastine 137 mcg (0.1 %) spray,non-aerosol 1 spray INTRANASAL DAILY naproxen 500 mg tablet 500 mg PO BID PRN PRN (Reason: pain) ergocalciferol (vitamin D2) 1,250 mcg (50,000 unit) capsule 1,250 mcg PO .weekly Rx Instructions: takes on Saturadays Discontinued tamsulosin 0.4 mg capsule 0.4 mg PO QHS Referrals / Follow Up: Ailin Magallon MD [Primary Care Provider] - Within 2 Weeks Disposition Disposition (needs filled in before D/C Order can be placed): Home, Self Care
--- NOTE | 2024-05-24 14:45 | DS.PCM_ITS ---
Providers Date of Admission: 05/22/24 Date of Discharge: 05/24/24 Primary Care Physician: Dr. Ailin Magallon MD Consultations 05/22/24 18:56 Consult: Orthopedics Routine Consulting Provider: Jono Adler Reason for Consult: elbow fracture EMERGENT Consult: No MD Notified: Yes Date Notified: 05/22/24 Time Notified: 07:54 Method of Notification: Verbal Reason For Visit: FALL Diagnosis Discharge Diagnosis (1) Right elbow pain: Status: Acute Code(s): M25.521 - Pain in right elbow Plan 1. Acute cystitis related to temporary indwelling Chowdhury catheter-patient will remain on IV Rocephin, urine cultures pending, patient would like to try to discontinue his Chowdhury catheter and I told him tomorrow I would discontinue it and make sure that he was able to straight cath without a residual before he goes home. #2 rhabdomyolysis-patient's BMP will be rechecked tomorrow #3 prostate cancer-complicates care, management, recovery, and prognosis, patient is due to follow-up with his urologist as an outpatient #4 possible fracture of the coronoid process of the right elbow-orthopedic surgery will see the patient in consultation Total clinical time spent by myself addressing the patient's medical issues, reviewing all of his data, and collaborating with patient's care team: 35 minutes Medications at Discharge Home Medications aspirin 81 mg capsule 81 mg PO DAILY prevention 05/22/24 azelastine 137 mcg (0.1 %) nasal spray 1 spray intranasal DAILY nasal 05/22/24 ergocalciferol (vitamin D2) 1,250 mcg (50,000 unit) capsule 1,250 mcg PO .weekly bones 05/22/24 lisinopril 10 mg-hydrochlorothiazide 12.5 mg tablet 1 tab PO DAILY bp 05/22/24 naproxen 500 mg tablet 500 mg PO BID PRN PRN pain 05/22/24 polyethylene glycol 3350 17 gram/dose oral powder 17 g PO DAILY PRN bowels 05/22/24 cefdinir 300 mg capsule 300 mg PO BID #8 caps 05/24/24 tamsulosin 0.4 mg capsule 0.8 mg (2 x 0.4 mg) PO QHS #60 caps 05/24/24 Hospital Course Operations None Procedures None Summary of Care Provided Minutes Spent on Discharge: 31 Hospital Course: This 78-year-old white male was seen in the emergency room at [facility] for generalized weakness and a fall from his bed with no serious injuries but he could not get up off his floor. He also complained of a fever at home. Workup in the emergency room included a white blood cell count which was elevated at 14.9, hemoglobin is 12.9, BUN was 22, and CPK was 9592. AST was elevated to 48 and ALT was 75. UA was abnormal for white blood cell count of 25-50, there is +2 bacteria. Patient was admitted for rhabdomyolysis generalized weakness and acute UTI. There was question about a closed fracture of the right elbow, patient was seen by orthopedic surgery however and they did not feel the patient had a fracture. Patient was seen by PT and OT, he was given IV antibiotics and improved during his hospital stay. Patient's Chowdhury catheter was removed prior to discharge home. On 05/24/2024, patient was seen and examined: On examination he appeared in good health and spirits. Vital signs as documented. Skin warm and dry and without overt rashes. Neck without JVD, neck was supple, trachea midline, thyroid was normal. Lungs clear bilaterally, normal air movement was noted. Heart exam notable for regular rhythm, normal sounds and absence of murmurs, rubs or gallops. Abdomen unremarkable and without evidence of organomegaly, masses, or abdominal aortic enlargement. Bowel sounds are present, abdomen is not distended. Extremities nonedematous, no cyanosis was noted, no clubbing was noted. Neuro: Cranial nerves II through XII are grossly intact, no focal motor deficits were noted, sensation to light touch and pinprick intact, motor exam 5/5 throughout. Psych: Patient is alert and oriented x3, he does not appear anxious or depressed, he does not appear agitated. Patient was discharged home in stable condition on 05/24/2024 Weight / BMI Weight Weight: 108.5 kg Body Mass Index (BMI) 32.4 ABG / Lab / Microbiology Data 05/23/24 05:24 05/24/24 05:22 Laboratory: Laboratory Results - last 24 hr 05/24/24 05:22: Sodium 138, Potassium 3.5, Chloride 107, Carbon Dioxide 26.0, Anion Gap 5, BUN 15, Creatinine 0.71, Estim Creat Clear Calc 93.71, Est GFR (MDRD) Af Amer 137, Est GFR (MDRD) Non-Af 113, BUN/Creatinine Ratio 21.1 H, Glucose 102, Calcium 8.7 Microbiology: Microbiology 05/22/24 15:27 Blood Culture (Wb) - Left Wrist Blood Culture - Final No growth in 5 days. 05/22/24 15:27 Blood Culture (Wb) - Right Wrist Blood Culture - Final No growth in 5 days. 05/22/24 15:11 Urine, Random Urine Culture - Final Enterococcus faecalis Enterobacter cloacae complex 05/23/24 14:30 Urine Catheter - Chowdhury Urine Culture - Final Culture exhibits no growth. 05/22/24 15:13 Mucosa - Nose SARS-CoV-2, Influenza & RSV (PCR) - Final D/C Instructions Discharge Diet: No restrictions Weight Bearing Status: Full weight bearing DC O2, CPAP, BIPAP Needs Home O2 Discharge instructions: No Meaningful Use Info Meaningful Use Meaningful Use Diagnoses (Choose all that apply): None applicable Ischemic Stroke Statin Dosing Therapy Reference: STATIN DOSE THERAPY REFERENCE: * Patients > 75 years receive moderate or high dose statin therapy. * Patients 75 years or YOUNGER should receive HIGH intensity statin dose unless contraindicated. You will be required to document reason for non-treatment if statin daily dose does not meet guidelines. HIGH DOSE STATIN THERAPY DAILY Atorvastatin > than or = to 40 mg Rosuvastatin > than or = to 20 mg Amlodipine + Atorvastatin > than or = to 2.5/40 mg Ezetimibe + Simvastatin 10/80 mg Simvastatin 80mg Discharge Plan Admission Admit Date/Time: 05/22/24 17:51 Primary Reason for Your Visit: cystitis, debility Attending Provider: Brayden Gaona Primary Care Provider: Ailin Magallon Consulting Providers: Tyler Garcia; Joon Adler Instructions Additional Instructions / Restrictions: Follow-up with your urologist as scheduled Discharge Orders/Prescriptions Prescriptions: New tamsulosin 0.4 mg Capsule 0.8 mg PO QHS Qty: 60 0RF cefdinir 300 mg capsule 300 mg PO BID Qty: 8 0RF Rx Instructions: Start on 05/25/2024 Continued lisinopril-hydrochlorothiazide 10-12.5 mg tablet 1 tab PO DAILY aspirin 81 mg capsule 81 mg PO DAILY polyethylene glycol 3350 17 gram/dose powder 17 g PO DAILY PRN (Reason: bowels) azelastine 137 mcg (0.1 %) spray,non-aerosol 1 spray INTRANASAL DAILY naproxen 500 mg tablet 500 mg PO BID PRN PRN (Reason: pain) ergocalciferol (vitamin D2) 1,250 mcg (50,000 unit) capsule 1,250 mcg PO .weekly Rx Instructions: takes on Saturadays Discontinued tamsulosin 0.4 mg capsule 0.4 mg PO QHS Referrals / Follow Up: Ailin Magallon MD [Primary Care Provider] - Within 2 Weeks Disposition Disposition (needs filled in before D/C Order can be placed): Home, Self Care Charges/Coding Visit Charges Inpatient E&M: 87703 Disch Hosp >30min
[2024-05-24 14:58] VITALS: BMI 32.4
[2024-05-24 15:43] VITALS: BP 114/76; PULSE 71; RESP 18; TEMP 36.4; O2SAT 97
== END 2024-05-24 17:20 | disposition home or self-care (01) | DRG 699 ==
LOC: ED 17:07 → PCU 17:54
PROVIDERS: Admitting Provider Internal Medicine; Emergency Provider Emergency Medicine; PCP Internal Medicine; Visit Provider Internal Medicine
DX: T83.511A Infection and inflammatory reaction due to indwelling urethral catheter, initial encounter (principal); M62.82 Rhabdomyolysis; C61 Malignant neoplasm of prostate; I10 Essential (primary) hypertension; S52.044A Nondisplaced fracture of coronoid process of right ulna, initial encounter for closed fracture; W06.XXXA Fall from bed, initial encounter; N39.0 Urinary tract infection, site not specified; Z79.82 Long term (current) use of aspirin; Z79.899 Other long term (current) drug therapy
CPT/HCPCS: 36415; 70450; 70486; 71045; 72125; 73080; 73502; 80048; 80053; 80076; 81001; 82550; 83605; 83735; 84100; 84443; 85025; 85610; 85730; 87040; 87077; 87086; 87088; 87186; 87631; 93005; 97110; 97162; 97166; 97530; 97535; 99285; A4216

== ENCOUNTER 2024-06-19 09:14 | Observation (INO) | payer MEDICARE, BC, SELFPAY ==
[2024-06-19 09:16] VITALS: BP 131/77; PULSE 94; RESP 16; TEMP 36.1; O2SAT 99; BMI 33.4
--- NOTE | 2024-06-19 09:25 | ED.RN ---
PT BRUSHING HIS TEETH, DROPPED HIS TOOTHBRUSH AND FELL PICKING IT UP. DENIES LOC. PT SELF CATHS SINCE 04/2024. PT SAID HE HAS NOT BEEN GOING OFTEN SINCE FALL BUT DENIES ANY BLOOD IN THE OUTPUT HE HAS HAD.
--- NOTE | 2024-06-19 09:29 | CT_ITS ---
STUDY: CT LUMBAR SPINE WITHOUT CONTRAST REASON FOR EXAM: Male, 78 years old. Trauma, fell yesterday, bruising to posterior left back RADIATION DOSAGE (If Supplied By Facility): CTDIvol = ( 48.81 ) mGy, DLP = ( 1540.26 ) mGycm TECHNIQUE: The patient was scanned in a multi detector CT scanner. High resolution transaxial imaging was performed. Images were obtained from L1 to S1 vertebral level. Sagittal and coronal images were reconstructed. Individualized dose optimization techniques were used for this CT. COMPARISON: None FINDINGS: Normal lumbar lordosis. There is no substantial scoliosis. Multilevel spondylosis. L1-2: Moderate degree of disc space narrowing. Anterior spondylosis. No evidence of vertebral compression. Mild degree of bilateral neural foraminal stenosis. L2-3: Marked degree of disc space narrowing and disc degeneration. Spondylosis. Bilateral neural foraminal stenosis caused by diffuse posterior disc bulge. Mild degree of disc space 9. Spondylosis. Bilateral neural foraminal stenosis and posterior diffuse disc bulge. L3-4: Disc space narrowing. Spondylosis. Bilateral neural foraminal stenosis. L4-5: Moderate degree of disc space narrowing and spondylosis. Facet joint osteoarthritis and hypertrophy. Bilateral neural foraminal stenosis. L5-S1: Moderate degree of disc space narrowing and disc degeneration. Spondylosis. Facet joint osteoarthritis. There is evidence of a nondisplaced fracture of the transverse process of the L2, L3 and L4 vertebrae. Nondisplaced fracture involving the costovertebral aspect of the right 12th rib as well as nondisplaced fracture of the anterior lateral aspect of the left 11th rib. Atherosclerotic calcification of the abdominal aorta. CT/Spine Lumbar without Contrast IMPRESSION: Nondisplaced fracture of the costovertebral aspect of the left fourth rib as well as the posterior lateral aspect of the left 11th rib. Nondisplaced fracture of the L2, L3 and L4 transverse process. Electronically Signed: Abraham Weiss MD at 10:47 EST ,
--- NOTE | 2024-06-19 09:29 | CT_ITS ---
STUDY: CT CHEST, ABDOMEN T PELVIS WITHOUT CONTRAST REASON FOR EXAM: Male, 78 years old. Left rib pain posterior after falling RADIATION DOSAGE (If Supplied By Facility): CTDIvol = ( 27.15 ) mGy, DLP = ( 2654.34 ) mGycm TECHNIQUE: Transaxial imaging was performed without the administration of intravenous contrast material. Multiplanar coronal and sagittal images were reformatted. Individualized dose optimization techniques were used for this CT. COMPARISON: No relevant priors. FINDINGS: CHEST Minimal scarring seen in the posterior medial segment of the right lower lobe. There is no demonstrated pleural abnormality. There are calcifications of the coronary arteries. Normal mediastinum. Normal hilar regions. Normal unenhanced pulmonary arteries. There is atherosclerotic calcification of the aortic arch. There are multi-level degenerative changes of the thoracic spine. Degenerative changes of both shoulder joints. Small hiatal hernia. ABDOMEN The visualized lung bases are unremarkable. The visualized portions of the heart are within normal limits. Normal liver. Normal gallbladder and extrahepatic biliary system. Normal spleen. Normal pancreas. Normal bilateral adrenal glands. Normal right kidney. There is a 2.4 cm x 1.8 cm hypodense nodule in the posterior medial aspect of the lower pole of the left kidney. This may represent a cyst although correlation with ultrasound is recommended. There is a small hiatal hernia. Normal small intestine. Normal colon. The appendix is visualized and appears normal. There is diffuse atherosclerotic calcification of the abdominal aorta and its major visceral branches, without a demonstrated aneurysm. Normal inferior vena cava. Normal retroperitoneum. There is evidence of increased markings within the subcutaneous fat overlying the posterior left flank extending into the lower posterior pelvic fat. This may represent changes secondary to the patient''s history of a recent fall There are diffuse degenerative changes of the visualized lumbar spine. PELVIS There is evidence of diffuse bilateral wall thickening. There is heterogeneous enlargement of the prostate measuring 4.6 cm x 5.9 cm. This causes indentation of the bladder base. Central prostatic calcification. Small fat-containing inguinal lymph nodes. There is no pelvic fluid. There is no pelvic lymphadenopathy or mass lesion. There is diffuse atherosclerotic calcification of the pelvic arteries. CT/CT Chest, Abd, Pelvis WO Cont IMPRESSION: Minimal scarring in the posterior segment of the right lower lobe. 2.4 cm x 1.8 cm hypodense nodule in the posteromedial aspect of the lower pole of the left kidney suggestive of a small cyst although correlation with ultrasound is recommended. Findings suggestive of a edematous changes overlying the subcutaneous fat in the posterior left flank extending to the lower posterior pelvic fat suggestive of post fall contusion. Electronically Signed: Abraham Weiss MD at 10:35 EST ,
--- NOTE | 2024-06-19 09:30 | EDS_ITS ---
HPI History of Present Illness Chief Complaint: Back Narrative Narrative: 78-year-old male presents with his son status post fall yesterday evening. He states he was in his carpeted bathroom, brushing his teeth when he dropped his toothbrush. He leaned forward to pick it up, and started falling. He turned his head so he did not hit the toilet. He hit the left side of his back and his ribs. There was no loss of consciousness. He does not take blood thinners. However, he complains of large amount of bruising to his left low back. He does have mild midline back pain as well. While he has bruising and tenderness on his left anterior to lateral ribs, he denies any shortness of breath or difficulty breathing. He is also concerned about his kidneys as he has had problems with having to self catheterize once a day. He denies any blood in his urine, but states when he cath himself there is only a small amount of urine contained in his bladder. [facility] Medical History Acute on chronic urinary retention Leukocytosis Closed fracture of right elbow Weakness Acute UTI Fever Rhabdomyolysis Fall Right elbow pain Kidney stones Non-smoker Asthma Hypertension Home Medications ?Medication ?Instructions ?Recorded ?Last Taken ?Type aspirin 81 mg capsule 81 mg PO DAILY prevention 05/22/24 Unknown History azelastine 137 mcg (0.1 %) nasal 1 spray intranasal DAILY nasal 05/22/24 Unknown History spray ergocalciferol (vitamin D2) 1,250 1,250 mcg PO .weekly bones 05/22/24 Unknown History mcg (50,000 unit) capsule lisinopril 10 1 tab PO DAILY bp 05/22/24 Unknown History mg-hydrochlorothiazide 12.5 mg tablet naproxen 500 mg tablet 500 mg PO BID PRN PRN pain 05/22/24 Unknown History polyethylene glycol 3350 17 17 g PO DAILY PRN bowels 05/22/24 Unknown History gram/dose oral powder cefdinir 300 mg capsule 300 mg PO BID #8 caps 05/24/24 Unknown Rx tamsulosin 0.4 mg capsule 0.8 mg (2 x 0.4 mg) PO QHS #60 caps 05/24/24 Unknown Rx Allergy/AdvReac Type Severity Reaction Status Date / Time ramelteon Allergy hallucinati Verified 06/19/24 09:26 ons Surgical History 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 History of neurogenic bladder but no loss of bowel control. No fevers or chills. No hitting of head or loss of consciousness. EXAM Physical Exam Narrative Exam Narrative: GCS 15. ABCs intact. Seen ambulating to his emergency department room. Nontoxic-appearing. Cardiovascular examination reveals a regular rate and rhythm, chest wall mildly tender in left anterior to mid axillary ribs. No crepitance. Small bruise noted on left chest wall. Abdomen is soft and nontender with positive bowel sounds. No vertebral point tenderness or bony step-off of lumbar spine. Large flank ecchymosis, left. Neurovascular intact bilateral lower extremities. Moves all extremities. Neurological examination nonfocal, nonlateralizing. Const Vital Signs: 06/19/24 09:16 06/19/24 11:37 Temperature 97 F L Temperature Source Temporal Pulse Rate 94 75 Respiratory Rate 16 16 Blood Pressure 131/77 H 109/75 Blood Pressure Mean 95 86 Pulse Ox 99 95 Oxygen Delivery Method Room Air Room Air MDM MDM MDM Narrative Medical decision making narrative: Differential diagnosis includes but not limited to left flank contusion versus retroperitoneal hemorrhage versus rib fracture versus rib contusion on the left. I have lower concern for lumbar spine fracture. However, given his age, imaging was obtained of the chest/ribs as well as CT lumbar spine and CT flank. I reviewed the radiology report of the CT of the flank and there is a renal cyst noted, but more of a left flank contusion, no discrete hematoma. There are edematous changes. On review of the radiology report of the CT of the chest, there are fractures of the posterior ribs #11 and 12 at the costovertebral angle. I reviewed the radiology report of the CT of the lumbar spine and he has nondisplaced fractures of L2, L3, and L4 transverse processes. Given the patient's age and comorbidities, I do feel that he requires observation and further evaluation at a trauma center. In discussion with the patient's son, he would like him transferred to a facility in [place] [facility]. Patient does live alone. However, given that he has posterior rib fractures and nondisplaced transverse process fractures with flank hematoma, I discussed patient with Dr. Randle. Patient will be observed on the general medical floor here for PT and OT eval. Patient is in stable condition. History & Record Review Discussion w/independent historian: Patient Radiography Diagnostic Testing: Clinical Impression(s) from Imaging Studies Chest/Abdomen/Pelvis CT 06/19/24 09:29 IMPRESSION: Minimal scarring in the posterior segment of the right lower lobe. 2.4 cm x 1.8 cm hypodense nodule in the posteromedial aspect of the lower pole of the left kidney suggestive of a small cyst although correlation with ultrasound is recommended. Findings suggestive of a edematous changes overlying the subcutaneous fat in the posterior left flank extending to the lower posterior pelvic fat suggestive of post fall contusion. Electronically Signed: Abraham Weiss MD at 10:35 EST , Lumbar Spine CT 06/19/24 09:29 IMPRESSION: Nondisplaced fracture of the costovertebral aspect of the left fourth rib as well as the posterior lateral aspect of the left 11th rib. Nondisplaced fracture of the L2, L3 and L4 transverse process. Electronically Signed: Abraham Weiss MD at 10:47 EST , Management Discussion w/another healthcare provider: Hospitalist (Dr. Randle) and Radiologist (Dr. Weiss) Discharge Plan Dx/Rx/DC Orders Clinical Impression: Fall, Contusion of left flank, Fracture of transverse process of lumbar vertebra, Fracture, ribs Disposition Disposition: Acute Care Hospital [facility]
--- NOTE | 2024-06-19 11:32 | HP.PCM.HOS_ITS ---
HPI - General General Date of Admission: 06/19/24 Date of Service: 06/19/24 Chief Complaint: mechanical fall HPI Narrative DARLENE ISIDRO, is a 78 M with a PMH as outlined who presents via the ED on 06/19/2024 with a complaint of mechanical fall and back pian. He was brushing his teeth when he dropped is toothbrush. In his attempt to pick it up, he fell. He hit his head and also hit the left side of his back and ribs. He had no loss of consciousness. He complained of lower back pain and left flank pain with associated brusing. He had no other symptoms. Review of systems was otherwise. Vitals in the ED were BP of 109/75, AR of 75, RR of 16 and oxygen sats of 95% on room air. CBC and BMP ordered with pending at time of review. CT chest abdomen and pelvis showed a 2.4 x 1.8 cm hypodense nodule in the posterior aspect of the left lower pole of the left kidney suggestive of a small cyst and showed edematous changes overlying the subcutaneous fat in the posterior left flank extending to the lower posterior pelvic fat suggestive of post fall contusion. Lumbar spine CT showed a nondisplaced fracture of the costovertebral aspect of the left fourth rib as well as the posterior lateral aspect of the left 11th rib and nondisplaced fractures of the L2-L3 and L4 transverse processes. He has been admitted to be managed for debility and spinal fractures as well as rib fractures due to mechanical fall. [facility] Medical History Acute on chronic urinary retention Leukocytosis Closed fracture of right elbow Weakness Acute UTI Fever Rhabdomyolysis Fall Right elbow pain Kidney stones Non-smoker Asthma Hypertension Home Medications ?Medication ?Instructions ?Recorded ?Last Taken ?Type aspirin 81 mg capsule 81 mg PO DAILY prevention 05/22/24 06/19/24 History azelastine 137 mcg (0.1 %) nasal 1 spray intranasal DAILY nasal 05/22/24 06/19/24 History spray ergocalciferol (vitamin D2) 1,250 1,250 mcg PO .weekly bones 05/22/24 06/16/24 History mcg (50,000 unit) capsule lisinopril 10 1 tab PO DAILY bp 05/22/24 06/19/24 History mg-hydrochlorothiazide 12.5 mg tablet naproxen 500 mg tablet 500 mg PO BID PRN PRN pain 05/22/24 06/05/24 History polyethylene glycol 3350 17 17 g PO DAILY PRN bowels 05/22/24 05/15/24 History gram/dose oral powder tamsulosin 0.4 mg capsule 0.8 mg (2 x 0.4 mg) PO QHS #60 caps 05/24/24 06/19/24 Rx Allergy/AdvReac Type Severity Reaction Status Date / Time ramelteon Allergy hallucinati Verified 06/19/24 09:26 ons Surgical History Knee joint replacement status H/O shoulder replacement Shoulder joint replacement by other means Social History housing: house Smoking Status: Never smoker ROS Constitutional Constitutional: Reports fatigue, malaise and weakness; Denies anorexia, chills or fever(s) Eyes Eyes: Denies change in vision ENT HEENT: Denies dysphagia or headache(s) Cardiovascular Cardiovascular: Denies chest pain, dyspnea on exertion, edema, lightheadedness, orthopnea, palpitations, paroxysmal nocturnal dyspnea, rapid heart rate or syncope Respiratory/Chest Respiratory/Chest: Denies cough, dyspnea, shortness of breath at rest or shortness of breath with exertion Gastrointestinal Gastrointestinal: Denies abdominal pain, nausea or vomiting Genitourinary Genitourinary: Denies burning urination or dysuria Musculoskeletal Musculoskeletal: Reports arthralgias and back pain; Denies joint pain, joint stiffness, joint swelling, myalgias or neck pain Neurologic Neurologic: Denies confusion, dizziness, focal weakness, headache(s), numbness, paresthesias, seizure-like activity, seizures or syncope Psychiatric Psychiatric: Denies anxiety Vital Signs Vital Signs Vital Signs: 06/19/24 09:16 Temperature 97 F L Temperature Source Temporal Pulse Rate 94 Respiratory Rate 16 Blood Pressure 131/77 H Blood Pressure Mean 95 Pulse Ox 99 Oxygen Delivery Method Room Air Weight Weight: 246 lb 4.101 oz Body Mass Index (BMI) 33.4 Physical Exam Const alert, oriented x3 and no apparent distress Constitutional Narrative: frail General Appearance: cooperative HEENT normocephalic, head/scalp atraumatic, hearing grossly normal bilaterally and moist oral mucous membranes Eyes PERRL, EOMs intact bilaterally and conjunctivae normal Neck no lymphadenopathy and supple Resp normal respiratory effort, no retractions, no use of accessory muscles and clear to auscultation bilaterally Cardio regular rate, regular rhythm, S1 normal heart sound and S2 normal heart sound GI normal to inspection, nondistended, normoactive bowel sounds, soft to palpation, non-tender and non-distended Extremity normal to inspection, full ROM and no clubbing, cyanosis or edema Skin Skin Narrative: has large ecchymosis on left lower back Neuro oriented x3, CN's II-XII intact bilaterally and moves all extremities Sensorium / Orientation: awake and alert Motor Exam: strength 5/5 throughout Psych affect normal Results Lab / Micro Data 06/19/24 11:37 06/19/24 11:37 Imaging Radiology Impression Chest/Abdomen/Pelvis CT 06/19/24 09:29 IMPRESSION: Minimal scarring in the posterior segment of the right lower lobe. 2.4 cm x 1.8 cm hypodense nodule in the posteromedial aspect of the lower pole of the left kidney suggestive of a small cyst although correlation with ultrasound is recommended. Findings suggestive of a edematous changes overlying the subcutaneous fat in the posterior left flank extending to the lower posterior pelvic fat suggestive of post fall contusion. Electronically Signed: Abraham Weiss MD at 10:35 EST , Lumbar Spine CT 06/19/24 09:29 IMPRESSION: Nondisplaced fracture of the costovertebral aspect of the left fourth rib as well as the posterior lateral aspect of the left 11th rib. Nondisplaced fracture of the L2, L3 and L4 transverse process. Electronically Signed: Abraham Weiss MD at 10:47 EST , Assessment & Plan Assessment/Plan (1) Fracture, ribs: (2) Fracture of transverse process of lumbar vertebra: (3) Contusion of left flank: (4) Fall: PLAN: Plan #Debility with left rib fractures and spinal fractures due to mechanical fall * patient said he was picking his toothbrush which fell down; he fell down and did not hit his head, but hit his left flank and back against the toilet. * sustained a large ecchymotic patch over the left lower back. * Imaging done showed left rib fractures and lumbar spinal stenosis * CT of the chest abdomen and pelvis showed 2.4 x 1.8cm hypodense nodule in the postero medial aspect of hte lower pole of the left kidney suffestive of small cyst and edematous changes overlying the subcutaneous fat in the posterior left flank extending to the lower posterior pelvic fat suggestive of post fall contusion. * CXR showed no acute cardiopulmonary pathollgy. * CT chest showed nondisplaced fracture of L2, L3 and L4, and showed nondisplaced facture of the costovertebral aspect of hte left fourth rib as well as the posteriolateral aspect of hte left 11th rib * admit to med surg * PT/OT consult * PO tylenol, PO oxycodone and IV morphine prn for pain. * fall precautions * incentive spirometry * #Left rib and spinal fractures due to mechanical fall * as above * #Left lower back ecchymosis due ot mechanical fall * Has a large ecchymotic patch over the left lower back. Hemoglobin is 12.6. * hold aspirin and monitor Hb * monitor ecchymosis for resolution * #History of prostate cancer * says he has opted for conservative management for now and is due to follow up with his urologist within a few weeks for follow up PSA * on flomax * #Hypertension: On lisinopril and HCTZ DVT prophylaxis: SCDs due to mechanical fall and left lower back ecchymosis Code status: full code * Patient and son counseled extensively about different types of CODE STATUS including full code, DNR CCA and DNR CCA. * Patient elects to be full code. * Total syed-no-tnni time 17 minutes. Charges/Coding Visit Charges Inpatient E&M: 19121 Init Hosp L3 Procedures Hospitalists Procedures: 51426 Advncd Care Plan 30 Min
[2024-06-19] MEDS: Morphine 4 MG/ML Syringe IV (11:33)
[2024-06-19] MEDS: Ondansetron 4 MG/2 ML Vial IV (11:33)
[2024-06-19 11:37] VITALS: BP 109/75; PULSE 75; RESP 16; O2SAT 95
[2024-06-19 11:47] LABS: Absolute Lymphocyte Count 1.54 X10^3/uL (0.83-4.51); Absolute Neutrophil Count 7.6 X10^3/uL (2.0-7.7); Basophil# 0.08 X10^3/uL; Basophil% 0.8 % (0-1); Eosinophils% 1.9 % (0-5); Hematocrit 36.2 % (40-54); Hemoglobin 12.6 g/dL (13.0-16.5); Lymphocyte # 1.54 X10^3/ul (0.83-4.51); Lymphocyte % 14.5 % (19-41); Mean Corp Hgb Conc 34.8 g/dL (32-36); Mean Corpuscular Hgb 35.6 pg (27.0-32.0); Mean Corpuscular Volume 102.3 fL (80-94); Mean Platelet Vol. 9.2 fl (6.2-12.0); Monocyte# 1.07 X10^3/uL; Monocyte% 10.1 % (0-10); NRBC Flagged by Analyzer 0 % (0-5); Neutrophil # 7.64 X10^3/uL (2.7-7.7); Neutrophil % 71.9 % (47-70); Platelet Count 160 K/mm3 (150-450); RBC Distribution Width CV 13.4 % (11.6-14.6); RBC Distribution Width SD 50.6 fl (35.1-43.9); Red Blood Count 3.54 M/mm3 (4.6-6.2); White Blood Count 10.6 K/mm3 (4.4-11.0)
[2024-06-19 11:59] LABS: Anion Gap 9 (5-15); BUN 18 mg/dL (7-18); BUN/Creat Ratio 15.8 RATIO (10-20); Calcium,Total 9.1 mg/dL (8.5-10.1); Chloride 101 mmol/L (98-107); Creatinine, Serum 1.14 mg/dL (0.70-1.30); EST Glomerular Filtration Rate 66 mL/min (>60); Est Glom Filt Rate - Afr Amer 79 mL/min (>60); Glucose 109 mg/dL (74-106); Sodium Level 136 mmol/L (136-145)
[2024-06-19 12:20] VITALS: BP 109/75; PULSE 75; RESP 16; TEMP 36.5; O2SAT 95
[2024-06-19 12:35] VITALS: BMI 32.8
[2024-06-19 13:03] VITALS: BP 117/66; PULSE 69; RESP 18; TEMP 36.4; O2SAT 99
[2024-06-19] MEDS: 0.9% Normal Saline (1000mL) 1,000 ML 125 ML IV ×2 (14:48→23:09)
[2024-06-19] MEDS: 0.9% Saline Lock 10 ML Syringe IV ×2 (14:58→18:46)
[2024-06-19] MEDS: Morphine 2 MG/ML Syringe IV (18:45)
[2024-06-19 20:19] VITALS: BP 109/74; PULSE 84; RESP 18; TEMP 36.7; O2SAT 99
[2024-06-19] MEDS: Tamsulosin HCl 0.4 MG Capsule 0.8 MG PO (20:21)
[2024-06-19] MEDS: oxyCODONE 5 MG Tablet PO (20:21)
[2024-06-19] MEDS: traZODone 50 MG Tablet PO (20:22)
[2024-06-20] MEDS: Morphine 2 MG/ML Syringe IV (00:46)
[2024-06-20] MEDS: 0.9% Saline Lock 10 ML Syringe IV (00:46)
[2024-06-20 02:45] VITALS: BP 93/68; PULSE 77; RESP 16; TEMP 36.3; O2SAT 98
[2024-06-20 06:17] LABS: Absolute Lymphocyte Count 1.11 X10^3/uL (0.83-4.51); Absolute Neutrophil Count 7.1 X10^3/uL (2.0-7.7); Basophil# 0.07 X10^3/uL; Basophil% 0.7 % (0-1); Eosinophil# 0.19 X10^3/uL; Hematocrit 33.3 % (40-54); Lymphocyte # 1.11 X10^3/ul (0.83-4.51); Lymphocyte % 11.8 % (19-41); Mean Corpuscular Hgb 34.7 pg (27.0-32.0); Mean Platelet Vol. 9.4 fl (6.2-12.0); Monocyte# 0.92 X10^3/uL; Monocyte% 9.7 % (0-10); NRBC Flagged by Analyzer 0 % (0-5); Neutrophil % 75.3 % (47-70); Platelet Count 157 K/mm3 (150-450); RBC Distribution Width CV 13.5 % (11.6-14.6); RBC Distribution Width SD 52.2 fl (35.1-43.9); Red Blood Count 3.17 M/mm3 (4.6-6.2); White Blood Count 9.4 K/mm3 (4.4-11.0)
[2024-06-20 06:56] LABS: Anion Gap 5 (5-15); BUN 17 mg/dL (7-18); BUN/Creat Ratio 16.3 RATIO (10-20); Calcium,Total 8.5 mg/dL (8.5-10.1); Chloride 102 mmol/L (98-107); Creatinine, Serum 1.04 mg/dL (0.70-1.30); EST Glomerular Filtration Rate 73 mL/min (>60); Est Glom Filt Rate - Afr Amer 88 mL/min (>60); Estimated Creatinine Clearance 72.47 ml/min; Glucose 116 mg/dL (74-106); Potassium 4.8 mmol/L (3.5-5.1); Sodium Level 135 mmol/L (136-145)
[2024-06-20 09:03] VITALS: BP 111/69; PULSE 83; RESP 16; TEMP 37.2; O2SAT 98
[2024-06-20] MEDS: Lisinopril 10 MG Tablet PO (09:10)
[2024-06-20] MEDS: hydroCHLOROthiazide 12.5mg 12.5 MG PO (09:10)
[2024-06-20] MEDS: Azelastine HCl NASAL.SRY 1 SPRAY NASAL (09:10)
[2024-06-20] MEDS: Aspirin 81 MG TAB.CHEW PO (09:14)
[2024-06-20] MEDS: oxyCODONE 5 MG Tablet PO ×3 (09:24→21:23)
--- NOTE | 2024-06-20 12:58 | CHAPLAIN ---
Type of Pastoral Visit _x__ Initial Visit ___ Follow-up Visit ___ On-call Visit ___ General Patient Visit ___ Spiritual Assessment ___ Family Conference ___ Bereavement ___ Rapid Response ___ Code Blue ___ Other (describe below) Pastoral Care Referral From _x__ Patient ___ Family _x__ Nurse ___ Physician ___ Software Consultant ___ Mortgage Loan Assistant ___ Other (describe below) Sacrament/Intervention _x__ Active listening ___ Anointing ___ Hindu ___ Bereavement ___ Communion ___ Alexsandra exploration ___ _x__ Life review _x__ Prayer ___ Reconciliation ___ Sacrament of Sick _x__ Supportive presence ___ Wedding ___ Other (describe below) Pastoral Comments MUSIC ADAPTER notified this peripatologist that the patient has been tearful this morning and upset about his situation; MUSIC ADAPTER recommended intervention to give support and encouragement; patient welcomed this peripatologist to visit and he explains his previous and current admissions to the hospital due to falls and injury; pt admits that he is not able to do things like before; pt admits to pain and discomfort in his arm, shoulder, and ribs; pt is and lives alone; pt is able to express his emotions although they surprise him as I've never been this emotional before; pt is given time to process thoughts and feelings, and have prayer support; pt expresses thanks for the time and visit
--- NOTE | 2024-06-20 13:00 | PN_ITS ---
Subjective Subjective Patient seen and examined. He complained of pain over the left flank due to the fractured ribs. Pain was especially worse with breathing and movement. Review of systems is otherwise negative. Objective Data Objective Data Vital Signs: Vital Signs Temp Pulse Resp BP Pulse Ox O2 Del Method O2 Flow Rate 98.9 F 83 16 111/69 98 Room Air 2 06/20/24 09:03 06/20/24 09:03 06/20/24 09:03 06/20/24 09:03 06/20/24 09:03 06/20/24 09:03 06/20/24 02:45 Oxygen Flow Rate (L/min) 2 Oxygen Delivery Method Room Air Weight: 241 lb 13.553 oz Body Mass Index (BMI) 32.8 Intake & Output: Intake and Output for Last 24 Hours 06/18/24 06/19/24 06/20/24 23:59 23:59 23:59 Intake Total 1000 / 1000 1000 / 1000 Output Total 600 / 600 Balance 400 / 400 1000 / 1000 Lab / Micro Data 06/20/24 05:37 06/20/24 05:37 Labs: Laboratory Results - last 24 hr 06/20/24 05:37: WBC 9.4, RBC 3.17 L, Hgb 11.0 L, Hct 33.3 L, MCV 105.0 H, MCH 34.7 H, MCHC 33.0 D, RDW Std Deviation 52.2 H, RDW Coeff of Jam 13.5, Plt Count 157, MPV 9.4, Immature Gran % (Auto) 0.500, Neut % (Auto) 75.3 H, Lymph % (Auto) 11.8 L, Graves % (Auto) 9.7, Eos % (Auto) 2.0, Baso % (Auto) 0.7, Absolute Neuts (auto) 7.1, Absolute Lymphs (auto) 1.11, Nucleated RBC % 0, Sodium 135 L, Potassium 4.8, Chloride 102, Carbon Dioxide 28.0, Anion Gap 5, BUN 17, Creatinine 1.04, Estim Creat Clear Calc 72.47, Est GFR (MDRD) Af Amer 88, Est GFR (MDRD) Non-Af 73, BUN/Creatinine Ratio 16.3, Glucose 116 H, Calcium 8.5 Physical Exam Const alert, oriented x3 and no apparent distress Constitutional Narrative: frail General Appearance: cooperative HEENT normocephalic, head/scalp atraumatic, hearing grossly normal bilaterally and moist oral mucous membranes Eyes PERRL, EOMs intact bilaterally and conjunctivae normal Neck no lymphadenopathy and supple Resp normal respiratory effort, normal air movement, no retractions, no use of accessory muscles and clear to auscultation bilaterally Cardio regular rate, regular rhythm, S1 normal heart sound and S2 normal heart sound GI normal to inspection, nondistended, normoactive bowel sounds, soft to palpation, non-tender and non-distended Extremity normal to inspection, full ROM and no clubbing, cyanosis or edema Skin Skin Narrative: has large ecchymosis on left lower back Neuro oriented x3, CN's II-XII intact bilaterally and moves all extremities Sensorium / Orientation: awake and alert Motor Exam: strength 5/5 throughout Psych affect normal Appearance: appropriate Assessment & Plan Assessment/Plan (1) Fracture, ribs: (2) Fracture of transverse process of lumbar vertebra: (3) Contusion of left flank: (4) Fall: PLAN: Plan #Debility with left rib fractures and spinal fractures due to mechanical fall * patient said he was picking his toothbrush which fell down; he fell down and did not hit his head, but hit his left flank and back against the toilet. * sustained a large ecchymotic patch over the left lower back. * Imaging done showed left rib fractures and lumbar spinal stenosis * CT of the chest abdomen and pelvis showed 2.4 x 1.8cm hypodense nodule in the postero medial aspect of hte lower pole of the left kidney suggestive of small cyst and edematous changes overlying the subcutaneous fat in the posterior left flank extending to the lower posterior pelvic fat suggestive of post fall contusion. * CXR showed no acute cardiopulmonary pathollgy. * CT chest showed nondisplaced fracture of L2, L3 and L4, and showed nondisplaced facture of the costovertebral aspect of hte left fourth rib as well as the posterolateral aspect of the left 11th rib * PT/OT on board * PO tylenol, PO oxycodone and IV morphine prn for pain. * fall precautions * incentive spirometry * #Left rib and spinal fractures due to mechanical fall * as above * #Left lower back ecchymosis due to mechanical fall * Has a large ecchymotic patch over the left lower back. Hemoglobin is 12.6. * hold aspirin and monitor Hb * monitor ecchymosis for resolution * #History of prostate cancer * says he has opted for conservative management for now and is due to follow up with his urologist within a few weeks for follow up PSA * on flomax * #Hypertension: On lisinopril and HCTZ DVT prophylaxis: SCDs due to mechanical fall and left lower back ecchymosis Code status: full code * Charges/Coding Visit Charges Inpatient E&M: 80257 Subs Hosp L2
[2024-06-20 14:28] VITALS: BP 105/64; PULSE 77; RESP 16; TEMP 36.6; O2SAT 96
[2024-06-20] MEDS: Lidocaine 5% Patch 1 PATCH TOPICAL (14:38)
--- NOTE | 2024-06-20 15:41 | CASEMGMT ---
Met with patient to complete LAKE form. LAKE form explained to patient who voiced understanding and signed form. Original form placed in pt?s chart and copy provided to patient. Jo Harrington, Discharge Planning Asst
[2024-06-20 20:28] VITALS: BP 89/62; PULSE 75; RESP 18; TEMP 36.4; O2SAT 98
[2024-06-20] MEDS: Tamsulosin HCl 0.4 MG Capsule 0.8 MG PO (20:32)
[2024-06-20 21:16] VITALS: BP 112/64; PULSE 68; RESP 16; TEMP 36.4; O2SAT 96
[2024-06-20] MEDS: traZODone 50 MG Tablet PO (21:23)
[2024-06-21 03:10] VITALS: BP 99/78; PULSE 75; RESP 18; TEMP 36; O2SAT 95
[2024-06-21 05:53] LABS: Absolute Lymphocyte Count 1.72 X10^3/uL (0.83-4.51); Absolute Neutrophil Count 5.2 X10^3/uL (2.0-7.7); Basophil# 0.04 X10^3/uL; Basophil% 0.5 % (0-1); Eosinophil# 0.31 X10^3/uL; Eosinophils% 3.8 % (0-5); Hematocrit 30.7 % (40-54); Hemoglobin 10.3 g/dL (13.0-16.5); Lymphocyte # 1.72 X10^3/ul (0.83-4.51); Lymphocyte % 20.8 % (19-41); Mean Corp Hgb Conc 33.6 g/dL (32-36); Mean Corpuscular Hgb 34.7 pg (27.0-32.0); Mean Corpuscular Volume 103.4 fL (80-94); Mean Platelet Vol. 9.4 fl (6.2-12.0); Monocyte% 10.9 % (0-10); NRBC Flagged by Analyzer 0 % (0-5); Neutrophil # 5.23 X10^3/uL (2.7-7.7); Neutrophil % 63.3 % (47-70); Platelet Count 158 K/mm3 (150-450); RBC Distribution Width CV 13.3 % (11.6-14.6); Red Blood Count 2.97 M/mm3 (4.6-6.2); White Blood Count 8.3 K/mm3 (4.4-11.0)
[2024-06-21 06:38] LABS: Anion Gap 7 (5-15); BUN 22 mg/dL (7-18); BUN/Creat Ratio 22.6 RATIO (10-20); Calcium,Total 8.6 mg/dL (8.5-10.1); Chloride 101 mmol/L (98-107); Creatinine, Serum 0.97 mg/dL (0.70-1.30); EST Glomerular Filtration Rate 79 mL/min (>60); Est Glom Filt Rate - Afr Amer 95 mL/min (>60); Glucose 108 mg/dL (74-106); Sodium Level 133 mmol/L (136-145)
[2024-06-21] MEDS: Aspirin 81 MG TAB.CHEW PO (08:37)
[2024-06-21 08:39] VITALS: BP 106/69; PULSE 74; RESP 18; TEMP 36.6; O2SAT 96
[2024-06-21] MEDS: Lisinopril 10 MG Tablet PO (10:08)
[2024-06-21] MEDS: hydroCHLOROthiazide 12.5mg 12.5 MG PO (10:08)
[2024-06-21] MEDS: Lidocaine 5% Patch 1 PATCH TOPICAL (10:09)
[2024-06-21] MEDS: Azelastine HCl NASAL.SRY 1 SPRAY NASAL (10:09)
[2024-06-21 10:20] VITALS: BP 110/63; PULSE 73; O2SAT 100
[2024-06-21] MEDS: Acetaminophen 325 MG Tablet 650 MG PO (10:25)
[2024-06-21 12:44] VITALS: BP 104/58; PULSE 69; RESP 18; TEMP 36.4; O2SAT 95
--- NOTE | 2024-06-21 13:00 | CASEMGMT ---
RN WALTER updated that patient will be discharging today. RN CM in to discuss needs at discharge, therapy recommending outpatient therapy. RN WALTER discussed outpatient therapy with patient, patient agreeable to outpatient therapy and prefers [facility]. Patient denied further needs or help at discharge. Patient states his son is able to help him at home. Patient asked this RN CM to call his son Ariel to update regarding discharge plan. RN CM called son Ariel and updated regarding discharge plan, son agreeable to plan and requested to have [employer] call him to schedule appt. Son had no further questions or concerns. RN WALTER updated patient regarding son requesting [employer] call him, patient agreeable to plan. Patient had no further questions or concerns. LAY WATSON faxed outpatient therapy referral to [employer].
--- NOTE | 2024-06-21 14:22 | DCINST_ITS ---
Discharge Instructions Diet Discharge Diet: Low fat / Low cholesterol DC O2, CPAP, BIPAP needs Home O2 Discharge instructions: No Dressing / Incision Discharge Activity: Return to Normal Activity Weight Bearing Status: Weight bearing as tolerated Dressing / Incision Call your doctor if you observe: Fever of 101 or Higher, Shortness of breath, Dizziness, Swelling in the ankles, Chest pain and Uncontrolled pain Follow Up Care Test Results: Test results from this visit will be discussed in further detail at your follow- up appointment, if applicable. Discharge Plan Admission Admit Date/Time: 06/19/24 11:44 Primary Reason for Your Visit: mechanical fall, rib and lumbar spine fracutres Attending Provider: Itzel Randle Primary Care Provider: Ailin Magallon Instructions Patient Instructions: ED Mechanical Fall, ED Rib Fracture Additional Instructions / Restrictions: to see PCP within 2-3 days to check CBC to monitor Hb level. Discharge Orders/Prescriptions Prescriptions: New lidocaine 5 % Adhesive Patch,Medicated 1 patch topical DAILY Qty: 30 0RF Protocol: *Topical Application Instructions APPLICATION INSTRUCTIONS: apply to left flank over broken ribs Rx Instructions: apply over left flank and lower back oxycodone 5 mg Tablet 5 mg PO Q4H PRN PRN (Reason: Pain Score 4-10) 5 Days Qty: 30 0RF Continued lisinopril-hydrochlorothiazide 10-12.5 mg tablet 1 tab PO DAILY polyethylene glycol 3350 17 gram/dose powder 17 g PO DAILY PRN (Reason: bowels) azelastine 137 mcg (0.1 %) spray,non-aerosol 1 spray INTRANASAL DAILY ergocalciferol (vitamin D2) 1,250 mcg (50,000 unit) capsule 1,250 mcg PO .weekly Rx Instructions: takes on Saturadays tamsulosin 0.4 mg Capsule 0.8 mg PO QHS Qty: 60 0RF Patient Comments: CHECK DOSAGE CHANGE Discontinued aspirin 81 mg capsule 81 mg PO DAILY naproxen 500 mg tablet 500 mg PO BID PRN PRN (Reason: pain) Referrals / Follow Up: Ailin Magallon MD [Primary Care Provider] - Within 1 Week Disposition Disposition (needs filled in before D/C Order can be placed): Home, Self Care
--- NOTE | 2024-06-21 14:23 | DS.PCM_ITS ---
Providers Date of Admission: 06/19/24 Date of Discharge: 06/21/24 Primary Care Physician: Dr. Ailin Magallon MD Reason For Visit: DEBILITY DUE TO MECHANICAL FALL Diagnosis Discharge Diagnosis (1) Fracture, ribs: Status: Acute Code(s): S22.49XA - Multiple fractures of ribs, unspecified side, initial encounter for closed fracture (2) Fracture of transverse process of lumbar vertebra: Status: Acute Code(s): S32.009A - Unspecified fracture of unspecified lumbar vertebra, initial encounter for closed fracture (3) Contusion of left flank: Status: Acute Code(s): S30.1XXA - Contusion of abdominal wall, initial encounter (4) Fall: Status: Acute Code(s): W19.XXXA - Unspecified fall, initial encounter Plan #Debility with left rib fractures and spinal fractures due to mechanical fall * patient said he was picking his toothbrush which fell down; he fell down and did not hit his head, but hit his left flank and back against the toilet. * sustained a large ecchymotic patch over the left lower back. * Imaging done showed left rib fractures and lumbar spinal stenosis * CT of the chest abdomen and pelvis showed 2.4 x 1.8cm hypodense nodule in the postero medial aspect of hte lower pole of the left kidney suggestive of small cyst and edematous changes overlying the subcutaneous fat in the posterior left flank extending to the lower posterior pelvic fat suggestive of post fall contusion. * CXR showed no acute cardiopulmonary pathollgy. * CT chest showed nondisplaced fracture of L2, L3 and L4, and showed nondisplaced facture of the costovertebral aspect of hte left fourth rib as well as the posterolateral aspect of the left 11th rib * PT/OT on board * PO tylenol, PO oxycodone and IV morphine prn for pain. * fall precautions * incentive spirometry * #Left rib and spinal fractures due to mechanical fall * as above * #Left lower back ecchymosis due to mechanical fall * Has a large ecchymotic patch over the left lower back. Hemoglobin is 12.6. * hold aspirin and monitor Hb * monitor ecchymosis for resolution * #History of prostate cancer * says he has opted for conservative management for now and is due to follow up with his urologist within a few weeks for follow up PSA * on flomax * #Hypertension: On lisinopril and HCTZ DVT prophylaxis: SCDs due to mechanical fall and left lower back ecchymosis Code status: full code * Medications at Discharge Home Medications azelastine 137 mcg (0.1 %) nasal spray 1 spray intranasal DAILY nasal 05/22/24 ergocalciferol (vitamin D2) 1,250 mcg (50,000 unit) capsule 1,250 mcg PO .weekly bones 05/22/24 lisinopril 10 mg-hydrochlorothiazide 12.5 mg tablet 1 tab PO DAILY bp 05/22/24 polyethylene glycol 3350 17 gram/dose oral powder 17 g PO DAILY PRN bowels 05/22/24 tamsulosin 0.4 mg capsule 0.8 mg (2 x 0.4 mg) PO QHS #60 caps 05/24/24 lidocaine 5 % topical patch 1 patch topical DAILY #30 ea 06/21/24 oxycodone 5 mg tablet 5 mg PO Q4H PRN PRN Pain Score 4-10 5 days #30 tabs 06/21/24 Hospital Course Operations None Procedures None Summary of Care Provided Minutes Spent on Discharge: 47 Hospital Course: DARLENE ISIDRO, is a 78 M with a PMH as outlined who presents via the ED on 06/19/2024 with a complaint of mechanical fall and back pain. He was brushing his teeth when he dropped is toothbrush. In his attempt to pick it up, he fell. He hit his head and also hit the left side of his back and ribs. He had no loss of consciousness. He complained of lower back pain and left flank pain with associated bruising. He had no other symptoms. Review of systems was otherwise. Vitals in the ED were BP of 109/75, UT of 75, RR of 16 and oxygen sats of 95% on room air. CBC and BMP ordered with pending at time of review. CT chest abdomen and pelvis showed a 2.4 x 1.8 cm hypodense nodule in the posterior aspect of the left lower pole of the left kidney suggestive of a small cyst and showed edematous changes overlying the subcutaneous fat in the posterior left flank extending to the lower posterior pelvic fat suggestive of post fall contusion. Lumbar spine CT showed a nondisplaced fracture of the costovertebral aspect of the left fourth rib as well as the posterior lateral aspect of the left 11th rib and nondisplaced fractures of the L2-L3 and L4 transverse processes. He has been admitted to be managed for debility and spinal fractures as well as rib fractures due to mechanical fall. PT OT were consulted. He was also placed on p.o. pain meds and IV pain meds as well as lidocaine patch. He worked well with therapy and did well. His hemoglobin dropped from around 12-10.6. This was likely due to a left flank contusion that he sustained as a result of the mechanical fall. Patient was counseled to follow-up with his PCP within 2 to 3 days for follow-up CBC to monitor hemoglobin as there is a chance he may continue to drop. Patient seen and examined prior to discharge. Son was by his bedside. He still complains of some left flank pain especially with breathing in and out of as a result of the rib fractures. He said the lidocaine patch helped. Review of systems otherwise negative. Labs and vitals reviewed. Home medication reviewed and reconciled. He was discharged the prescription for p.o. oxycodone 5 mg every 4 hours as needed for total of 30 tablets for 5 days. OARRS score was checked and no red flags were seen. He was also given a script for lidocaine patch daily x 30 days. Patient and family counseled to take fall precautions at home and to remove any potential fall risks. Physical Exam Const alert, oriented x3 and no apparent distress Constitutional Narrative: frail General Appearance: cooperative and comfortable Orientation / Consciousness: awake Exam Limitations: no limitations HEENT normocephalic, head/scalp atraumatic, hearing grossly normal bilaterally, moist oral mucous membranes and oropharynx normal Mouth: oral and palatal mucosa normal Eyes PERRL, EOMs intact bilaterally and conjunctivae normal Neck no lymphadenopathy, supple and no JVD Resp normal respiratory effort, normal air movement, no retractions, no use of accessory muscles and clear to auscultation bilaterally Cardio regular rate, regular rhythm, S1 normal heart sound and S2 normal heart sound GI normal to inspection, nondistended, normoactive bowel sounds, soft to palpation, non-tender and non-distended Extremity normal to inspection, full ROM and no clubbing, cyanosis or edema Skin Skin Narrative: has large ecchymosis on left lower back Neuro oriented x3, CN's II-XII intact bilaterally and moves all extremities Sensorium / Orientation: awake and alert Motor Exam: strength 5/5 throughout Psych affect normal Appearance: appropriate Weight / BMI Weight Weight: 241 lb 13.553 oz Body Mass Index (BMI) 32.8 ABG / Lab / Microbiology Data 06/21/24 05:05 06/21/24 05:05 Laboratory: Laboratory Results - last 24 hr 06/21/24 05:05: WBC 8.3, RBC 2.97 L, Hgb 10.3 L, Hct 30.7 L, MCV 103.4 H, MCH 34.7 H, MCHC 33.6, RDW Std Deviation 51.0 H, RDW Coeff of Jam 13.3, Plt Count 158, MPV 9.4, Immature Gran % (Auto) 0.700, Neut % (Auto) 63.3, Lymph % (Auto) 20.8, [place] % (Auto) 10.9 H, Eos % (Auto) 3.8, Baso % (Auto) 0.5, Absolute Neuts (auto) 5.2, Absolute Lymphs (auto) 1.72, Nucleated RBC % 0, Sodium 133 L, Potassium 4.0, Chloride 101, Carbon Dioxide 25.0, Anion Gap 7, BUN 22 H, Creatinine 0.97, Estim Creat Clear Calc 77.70, Est GFR (MDRD) Af Amer 95, Est GFR (MDRD) Non-Af 79, BUN/Creatinine Ratio 22.6 H, Glucose 108 H, Calcium 8.6 D/C Instructions Discharge Diet: Low fat / Low cholesterol Discharge Activity: Return to Normal Activity Weight Bearing Status: Weight bearing as tolerated Call your doctor if you observe: Fever of 101 or Higher, Shortness of breath, Dizziness, Swelling in the ankles, Chest pain and Uncontrolled pain DC O2, CPAP, BIPAP Needs Home O2 Discharge instructions: No Meaningful Use Info Meaningful Use Meaningful Use Diagnoses (Choose all that apply): None applicable Ischemic Stroke Statin Dosing Therapy Reference: STATIN DOSE THERAPY REFERENCE: * Patients > 75 years receive moderate or high dose statin therapy. * Patients 75 years or YOUNGER should receive HIGH intensity statin dose unless contraindicated. You will be required to document reason for non-treatment if statin daily dose does not meet guidelines. HIGH DOSE STATIN THERAPY DAILY Atorvastatin > than or = to 40 mg Rosuvastatin > than or = to 20 mg Amlodipine + Atorvastatin > than or = to 2.5/40 mg Ezetimibe + Simvastatin 10/80 mg Simvastatin 80mg Discharge Plan Admission Admit Date/Time: 06/19/24 11:44 Primary Reason for Your Visit: mechanical fall, rib and lumbar spine fracutres Attending Provider: Itzel Randle Primary Care Provider: Ailin Magallon Instructions Patient Instructions: ED Mechanical Fall, ED Rib Fracture Additional Instructions / Restrictions: to see PCP within 2-3 days to check CBC to monitor Hb level. Discharge Orders/Prescriptions Prescriptions: New lidocaine 5 % Adhesive Patch,Medicated 1 patch topical DAILY Qty: 30 0RF Protocol: *Topical Application Instructions APPLICATION INSTRUCTIONS: apply to left flank over broken ribs Rx Instructions: apply over left flank and lower back oxycodone 5 mg Tablet 5 mg PO Q4H PRN PRN (Reason: Pain Score 4-10) 5 Days Qty: 30 0RF Continued lisinopril-hydrochlorothiazide 10-12.5 mg tablet 1 tab PO DAILY polyethylene glycol 3350 17 gram/dose powder 17 g PO DAILY PRN (Reason: bowels) azelastine 137 mcg (0.1 %) spray,non-aerosol 1 spray INTRANASAL DAILY ergocalciferol (vitamin D2) 1,250 mcg (50,000 unit) capsule 1,250 mcg PO .weekly Rx Instructions: takes on Saturadays tamsulosin 0.4 mg Capsule 0.8 mg PO QHS Qty: 60 0RF Patient Comments: CHECK DOSAGE CHANGE Discontinued aspirin 81 mg capsule 81 mg PO DAILY naproxen 500 mg tablet 500 mg PO BID PRN PRN (Reason: pain) Referrals / Follow Up: Ailin Magallon MD [Primary Care Provider] - Within 1 Week Disposition Disposition (needs filled in before D/C Order can be placed): Home, Self Care Charges/Coding Visit Charges Inpatient E&M: 85349 Disch Hosp >30min
[2024-06-21 14:49] VITALS: BP 119/61; PULSE 74; RESP 18; TEMP 36.8; O2SAT 97
== END 2024-06-21 16:27 | disposition home or self-care (01) ==
LOC: ED 11:40 → PCU 11:58
PROVIDERS: Admitting Provider Student in an Organized Health Care Education/Training Program; Emergency Provider Emergency Medicine; PCP Internal Medicine; Visit Provider Student in an Organized Health Care Education/Training Program
DX: S22.42XA Multiple fractures of ribs, left side, initial encounter for closed fracture (principal); S32.029A Unspecified fracture of second lumbar vertebra, initial encounter for closed fracture; S32.039A Unspecified fracture of third lumbar vertebra, initial encounter for closed fracture; S32.049A Unspecified fracture of fourth lumbar vertebra, initial encounter for closed fracture; Z79.82 Long term (current) use of aspirin; I10 Essential (primary) hypertension; R53.81 Other malaise; Z79.899 Other long term (current) drug therapy; J45.909 Unspecified asthma, uncomplicated; W01.0XXA Fall on same level from slipping, tripping and stumbling without subsequent striking against object, initial encounter; Y93.E8 Activity, other personal hygiene; Y92.89 Other specified places as the place of occurrence of the external cause
CPT/HCPCS: 36415; 71250; 72131; 74176; 80048; 85025; 96361; 96374; 96375; 96376; 97162; 97166; 99221; 99284; A4216; G0378; J2405

== ENCOUNTER 2024-08-29 12:39 | Emergency (ER) | payer MEDICARE, BC, SELFPAY ==
[2024-08-29] VITALS (11 sets, daily range): BP systolic 96–144; BP diastolic 53–85; PULSE 57–92; RESP 16–18; TEMP 36.4–36.8; O2SAT 97–100; BMI 31.6
[2024-08-29 13:48] LABS: Absolute Lymphocyte Count 0.73 X10^3/uL (0.83-4.51); Absolute Neutrophil Count 6.3 X10^3/uL (2.0-7.7); Basophil% 1.1 % (0-1); Eosinophil# 0.74 X10^3/uL; Eosinophils% 8.4 % (0-5); Hematocrit 33.8 % (40-54); Hemoglobin 11.6 g/dL (13.0-16.5); Lymphocyte # 0.73 X10^3/ul (0.83-4.51); Lymphocyte % 8.3 % (19-41); Mean Corp Hgb Conc 34.3 g/dL (32-36); Mean Corpuscular Hgb 34.4 pg (27.0-32.0); Mean Corpuscular Volume 100.3 fL (80-94); Monocyte# 0.87 X10^3/uL; Monocyte% 9.9 % (0-10); NRBC Flagged by Analyzer 0 % (0-5); Neutrophil # 6.28 X10^3/uL (2.7-7.7); Neutrophil % 71.5 % (47-70); POSITIVE COUNT YES; Platelet Count 219 K/mm3 (150-450); RBC Distribution Width CV 14.1 % (11.6-14.6); RBC Distribution Width SD 51.2 fl (35.1-43.9); Red Blood Count 3.37 M/mm3 (4.6-6.2); White Blood Count 8.8 K/mm3 (4.4-11.0)
[2024-08-29 14:09] LABS: ALB/GLOB Ratio 0.9 RATIO (0.9-2.4); AST(SGOT) 26 U/L (<=37); Alanine Aminotransfer ALT/SGPT 22 U/L (<=46); Alkaline Phosphatase 82 U/L (40-129); Anion Gap 12 (5-15); BUN 29 mg/dL (4-19); BUN/Creat Ratio 24.2 RATIO (10-20); Calcium,Total 9.6 mg/dL (7.6-11.0); Carbon Dioxide 22.8 mmol/L (21.0-32.0); Chloride 101 mmol/L (98-108); Creatinine, Serum 1.21 mg/dL (0.70-1.20); Differential Indicated SCAN CRITERIA MET; EST Glomerular Filtration Rate 60 (>60); Estimated Creatinine Clearance 60.16 ml/min (50-250); Globulin 4.3 g/dL (2.2-4.2); Glucose 98 mg/dL (70-99); Lipase 47 U/L (13-75); Protein, Total 8.2 g/dL (5.9-8.4); Sodium Level 136 mmol/L (133-145); Total Bilirubin 0.22 mg/dL (0.00-1.30)
--- NOTE | 2024-08-29 14:30 | EDS_ITS ---
HPI History of Present Illness Chief Complaint: Complaint Detail of Chief Complaint: Possible UTI/dysuria Informant: patient Narrative Narrative: Patient presents to the emergency department with complaint urinary symptoms. Patient states that currently being treated for prostate cancer with metastasis to the bone and receiving radiation therapy. Yesterday he mention to the radiation oncologist that he was having pain with urination. Urine culture apparently was sent and today was called was told that there may be an infection there. Patient complains of chills but no fever. He said no nausea or vomiting. Patient states that he self caths once a day. He has had history of retention. He sees a [facility] urologist and also sees Dr. Soto. [facility] Medical History Acute on chronic urinary retention Leukocytosis Closed fracture of right elbow Weakness Acute UTI Fever Rhabdomyolysis Fall Right elbow pain Kidney stones Non-smoker Asthma Hypertension Home Medications ?Medication ?Instructions ?Recorded ?Last Taken ?Type azelastine 137 mcg (0.1 %) nasal 1 spray intranasal DA CRISTOBAL nasal 05/22/24 06/19/24 History spray ergocalciferol (vitamin D2) 1,250 1,250 mcg PO .weekly bones 05/22/24 06/16/24 History mcg (50,000 unit) capsule lisinopril 10 1 tab PO DAILY bp 05/22/24 0 06/19/24 History mg-hydrochlorothiazide 12.5 mg tablet polyethylene glycol 3350 17 17 g PO DAILY PRN bowels 1 07/23/23 05/15/24 History gram/dose oral powder tamsulosin 0.4 mg capsule 0.8 mg (2 x 0.4 mg) PO QHS # 60 caps 05/24/24 06/19/24 Rx lidocaine 5 % topical patch 1 patch topical DAILY #30 ea 06/21/24 Unknown Rx oxycodone 5 mg tablet 5 mg PO Q4H PRN PRN Pain Sco re 06/21/24 Unknown Rx 4-10 5 days #30 tabs cephalexin 500 mg capsule 500 mg PO Q6 #28 CAPSULES Unknown Rx phenazopyridine 200 mg tablet 200 mg PO TID 6 doses #6 tabs 08/29/24 Unknown Rx (Pyridium) Allergy/AdvReac Type Severity Reaction Status Date / Time ramelteon Allergy hallucinati Verified 08/29/24 12:45 ons Family History no significant family his Surgical History Knee joint replacement status H/O shoulder replacement Shoulder joint replacement by other means Social History housing: house Smoking Status: Never smoker ROS ROS ED Review of Systems ROS Unobtainable: other Constitutional Constitutional ED: Reports lethargy; Denies chills, fever(s), sweats or weight loss Eyes Eyes: Denies blurry vision, change in vision or diplopia ENT ENT ED: Denies rhinorrhea or sore throat Cardiovascular Cardiovascular: Denies chest pain, orthopnea or racing heartbeat Respiratory/Chest Respiratory/Chest: Denies cough, dyspnea, dyspnea on exertion, orthopnea or sputum Gastrointestinal Gastrointestinal: Reports abdominal pain; Denies diarrhea, nausea or vomiting Genitourinary Genitourinary ED: Reports dysuria and other Details: Urinary retention ; Denies hematuria or urinary frequency Musculoskeletal Musculoskeletal: Denies arthralgias, back pain, myalgias or neck pain Integumentary Denies abscess, Abrasions or rash Neurologic Neurologic: Denies headache(s) or weakness Psychiatric Psychiatric: Denies anxiety, depression or suicidal thoughts Endocrine Endocrinology: Denies polydipsia, polyphagia or polyuria Hematologic/Lymphatic Hematologic/Lymphatic: Denies easy bleeding, easy bruising or lymphadenopathy Allergic/Immunologic Allergic/Immunologic ED: Denies mouth swelling, tongue swelling or urticaria EXAM Physical Exam Const Vital Signs: 08/29/24 12:39 08/29/24 14:32 08/29/24 14:37 Temperature 97.5 F L 98.2 F Temperature Source Oral Oral Pulse Rate 92 73 73 Respiratory Rate 18 18 18 Blood Pressure 96/73 144/85 H 144/85 H Blood Pressure Mean 80 104 104 Pulse Ox 99 98 99 Oxygen Delivery Method Room Air Room Air Room Air 08/29/24 15:00 Temperature 98.2 F Temperature Source Oral Pulse Rate 67 Respiratory Rate 18 Blood Pressure 144/85 H Blood Pressure Mean 104 Pulse Ox 100 Oxygen Delivery Method Room Air Positive well nourished and well developed General Appearance ED: well developed and NAD HEENT Reports TM's clear and moist mucous membranes normocephalic and atraumatic; Negative for trauma or tenderness Tympanic Membrane ED: Yes TM's clear Eyes PERRL and EOMs intact bilaterally General Eye ED: Negative for pale conjunctiva or scleral icterus Neck no lymphadenopathy, supple and no JVD General: Negative for tenderness Chest Wall inspection of chest normal and palpation of chest normal Chest: Negative for tenderness Resp normal respiratory effort and clear to auscultation bilaterally Effort and Inspection: Negative for respiratory distress or pain with movement Auscultation: Negative for rhonchi, wheezes or diminished lung sounds Cardio regular rate, regular rhythm, S1 normal heart sound, S2 normal heart sound and no murmurs Peripheral Pulses: pulses 2+ throughout GI normal to inspection, nondistended, normoactive bowel sounds, soft to palpation, non-tender, non-distended and no masses GI Narrative: Tenderness right lower quadrant and suprapubic region. There are some mild guarding. There is no rebound, rigidity, or peritoneal signs. No mass palpated Back/Spine no CVA tenderness and no thoracic nor lumbar tenderness Extremity normal to inspection General Extremety ED: Negative for edema General Extremity: Negative for edema Neuro oriented x3, CN's II-XII intact bilaterally, no sensory deficits noted and gait normal Sensorium / Orientation: awake, alert, oriented to person, oriented to place and oriented to time Motor Exam: strength 5/5 throughout and strength abnormal Psych mental status grossly normal Skin no rashes or lesions noted and no wounds MDM MDM MDM Narrative Medical decision making narrative: Patient presents the emergency department with concern for UTI. Currently undergoing treatment for prostate cancer. He self caths. He has had problems with retention in the past. IV line established. CBC with differential white of 8.8 with hemoglobin 11.6 and platelet count of 219. Chemistries unremarkable. BUN 29 and creatinine 1.21. Lactate was 1.3. Urinalysis positive for UTI and I did send off a culture. He was started on Rocephin 1 g IV. I did obtain a CT scan of the abdomen pelvis given the amount of pain he was having and history of kidney stones. Scan shows evidence of likely cystitis with out evidence of kidney stones. He has had some old fractures of his ribs from prior fall that patient is aware of. This point I feel he can be safely discharged to home. Patient is not septic. Will start patient on Keflex. Patient had a Chowdhury catheter placed on arrival and will send him home with a leg bag as well as a larger bag for nighttime as he has had a hard time sleeping as he is up frequently feeling like he needs to urinate. Will also start patient on Pyridium. Lab Data Attestation: I reviewed the patient's lab results. Labs: Laboratory Results - last 24 hr 08/29/24 08/29/24 13:35 15:06 WBC 8.8 RBC 3.37 L Hgb 11.6 L Hct 33.8 L MCV 100.3 H MCH 34.4 H MCHC 34.3 RDW Std Deviation 51.2 H RDW Coeff of Jam 14.1 Plt Count 219 MPV 10.0 Immature Gran % (Auto) 0.800 Neut % (Auto) 71.5 H Lymph % (Auto) 8.3 L [place] % (Auto) 9.9 Eos % (Auto) 8.4 H Baso % (Auto) 1.1 H Absolute Neuts (auto) 6.3 Absolute Lymphs (auto) 0.73 L Nucleated RBC % 0 Platelet Estimate ADEQUATE Sodium 136 Potassium 4.0 Chloride 101 Carbon Dioxide 22.8 Anion Gap 12 BUN 29 H Creatinine 1.21 H Estim Creat Clear Calc 60.16 Est GFR (MDRD) Non-Af 60 BUN/Creatinine Ratio 24.2 H Glucose 98 Lactic Acid 1.3 Calcium 9.6 Total Bilirubin 0.22 AST 26 ALT 22 Alkaline Phosphatase 82 Total Protein 8.2 Albumin 4.0 Globulin 4.3 H Albumin/Globulin Ratio 0.9 Lipase 47 Urine Color Yellow Urine Clarity Cloudy Urine pH 6.0 Ur Specific [place] 1.015 Urine Protein 100 H Urine Glucose (UA) Normal Urine Ketones Negative Urine Occult Blood 50 H Urine Nitrite Positive H Urine Bilirubin Negative Urine Urobilinogen Normal Ur Leukocyte Esterase 500 H Urine RBC 0 SEEN Urine WBC 50-100 SEEN Ur Squamous Epith Cells 0 SEEN Urine Bacteria 1+ Urine Mucus 0 SEEN Radiography Diagnostic Testing: Clinical Impression(s) from Imaging Studies Abdomen/Pelvis CT 08/29/24 15:25 IMPRESSION: 1. Findings suggestive of cystitis although a component of chronic bladder outlet obstruction may be present given prostatomegaly. Stranding extending along the mid to distal LEFT ureter could be related to ascending urinary tract infection. Correlate with urinalysis. No hydronephrosis or ureteral calculus identified. 2. Subacute appearing fractures of LEFT L1-L3 transverse processes and LEFT posterior ribs 11-12. 3. Abdominal aortic ectasia to 2.6 cm. Recommend follow-up in 5 years per 2013 ACR recommendations. 4. Additional description as above. Reading Location: [id number] Discharge Plan Triage Chief Complaint: Complaint ED Provider: Lamont Fajardo Dx/Rx/DC Orders Clinical Impression: Acute UTI, Acute urinary retention Instructions: ED Chowdhury Catheter, Care, ED Urinary Retention, Male, ED Bladder Infection, Male (Adult) Prescriptions: New cephalexin 500 mg capsule 500 mg PO Q6 Qty: 28 0RF phenazopyridine [Pyridium] 200 mg tablet 200 mg PO TID Qty: 6 0RF No Action lisinopril-hydrochlorothiazide 10-12.5 mg tablet 1 tab PO DAILY polyethylene glycol 3350 17 gram/dose powder 17 g PO DAILY PRN (Reason: bowels) azelastine 137 mcg (0.1 %) spray,non-aerosol 1 spray INTRANASAL DAILY ergocalciferol (vitamin D2) 1,250 mcg (50,000 unit) capsule 1,250 mcg PO .weekly Rx Instructions: takes on Saturadays tamsulosin 0.4 mg Capsule 0.8 mg PO QHS Qty: 60 0RF Patient Comments: CHECK DOSAGE CHANGE lidocaine 5 % Adhesive Patch,Medicated 1 patch topical DAILY Qty: 30 0RF Protocol: *Topical Application Instructions APPLICATION INSTRUCTIONS: apply to left flank over broken ribs Rx Instructions: apply over left flank and lower back oxycodone 5 mg Tablet 5 mg PO Q4H PRN PRN (Reason: Pain Score 4-10) 5 Days Qty: 30 0RF Primary Care Provider: Ailin Magallon Referrals: Ailin Magallon MD [Primary Care Provider] - Activity Restrictions/Additional Instructions: Follow-up with your urologist within the next 7 to 10 days Print Language: Bolivian Disposition Disposition: Home, Self Care
[2024-08-29 15:14] LABS: Mucous, Urine 0 SEEN /hpf (<or=2+); Red Blood Cells-Urine 0 SEEN /hpf (0-5); Squamous Epithelial Cells - UA 0 SEEN /hpf (0-5)
[2024-08-29] MEDS: 0.9% Normal Saline (1000mL) 1,000 ML 999 ML IV (15:15)
[2024-08-29 15:18] LABS: Color, Urine Yellow (Yellow); Glucose, Dipstick Normal (Normal); Ketone-Dipstick Negative (Negative); Leukocyte Esterase-Dipstick 500 /ul (Negative); Nitrite-Dipstick Positive (Negative); Occult Blood-Urine 50 /ul (Negative); Protein-Dipstick 100 mg/dl (Negative); Specific Gravity, Urine 1.015 (1.002-1.030); Urine Bilirubin Dipstick Negative (Negative); Urine Clarity Cloudy (Clear); Urine Urobilinogen Normal (Normal)
--- NOTE | 2024-08-29 15:25 | CT_ITS ---
PROCEDURE: ABDOMEN/PELVIS WITHOUT CONT 08/29/2024 REASON FOR EXAM: LOWER ABDOMINAL PAIN, HISTORY OF KIDNEY STONES TECHNIQUE: CT abdomen and pelvis was performed with out IV contrast. Multiplanar reformats were generated. One or more dose reduction techniques were used (e.g., Automated exposure control, adjustment of the mA and/or kV according to patient size, use of iterative reconstruction technique). PATIENT PREPARATION: Per protocol ORAL CONTRAST TYPE: None. COMPARISON: 06/19/2024 FINDINGS: Exam limited by beam hardening artifact related to the arms which were positioned at the sides rather than above the head. Note also that evaluation of the abdominopelvic viscera, vasculature, and remaining soft tissues is limited in the absence of IV contrast. Lung bases: Multivessel coronary atherosclerosis and/or stents. Aortic annular calcification. Hiatal hernia. Atelectasis/scarring. Similar fissural likely intrapulmonary lymph nodes in the RIGHT lung base. Liver: Unremarkable. Spleen: Unremarkable. Gallbladder: Unremarkable. Pancreas: Unremarkable. Adrenals: Unremarkable. Kidneys: LEFT renal cyst. No hydronephrosis or ureteral calculus identified. Mild nonspecific stranding along the mid to distal course of the RIGHT ureter and RIGHT pelvic sidewall, slightly increased from prior. Bowel: Mild sigmoid diverticulosis.. Normal caliber appendix. Lymph nodes: Unremarkable. Vasculature: Atherosclerosis. Tortuous aortoiliac vessels. Mild infrarenal abdominal aortic ectasia to 2.6 x 2.4 cm. Peritoneum: Unremarkable. Bladder: Decompressed by Chowdhury catheter and suboptimally evaluated. Marked bladder wall thickening disproportionate to the degree of underdistention. Perivesicular stranding. Reproductive Organs: Prostatomegaly. Body Wall: Tiny fat containing umbilical hernia.. Bones: Multilevel spondylosis. Findings suggestive of early diffuse idiopathic skeletal hyperostosis. Multilevel spinal canal stenoses are suboptimally characterized by CT. Trace lumbar dextroscoliosis. Degenerative changes of the hips and SI joints including anterior ankylosis. Subacute appearing LEFT transverse process fractures from L1-L3. Subacute appearing nondisplaced fractures of LEFT posterior ribs 11-12. CT/Abdomen/Pelvis without Cont IMPRESSION: 1. Findings suggestive of cystitis although a component of chronic bladder outl et obstruction may be present given prostatomegaly. Stranding extending along the mid to distal LEFT ureter could be related to ascending urinary tract infection. Correlate with urinalysis. No hydronephrosis or ureteral calculus identified. 2. Subacute appearing fractures of LEFT L1-L3 transverse processes and LEFT pos terior ribs 11-12. 3. Abdominal aortic ectasia to 2.6 cm. Recommend follow-up in 5 years per 2013 ACR recommendations. 4. Additional description as above. Reading Location: [facility]
[2024-08-29 15:26] LABS: White Blood Cells 50-100 SEEN /hpf (0-5)
[2024-08-29 15:27] LABS: Bacteria 1+ /hpf (None Seen)
[2024-08-29 15:33] LABS: Platelet Estimate ADEQUATE (ADEQ)
[2024-08-29 15:48] LABS: Lactic Acid 1.3 mmol/L (0.0-2.0)
[2024-08-29] MEDS: Ceftriaxone 1 GM/50 ML BAG IV (16:12)
== END 2024-08-29 17:41 | disposition home or self-care (01) ==
LOC: ED 16:51
PROVIDERS: Emergency Provider Emergency Medicine; PCP Internal Medicine; Visit Provider Emergency Medicine
DX: N39.0 Urinary tract infection, site not specified (principal); C79.51 Secondary malignant neoplasm of bone; C61 Malignant neoplasm of prostate; I10 Essential (primary) hypertension; R33.9 Retention of urine, unspecified; Z92.3 Personal history of irradiation; Z79.899 Other long term (current) drug therapy; Z96.619 Presence of unspecified artificial shoulder joint; Z96.659 Presence of unspecified artificial knee joint
CPT/HCPCS: 36415; 51702; 74176; 80053; 81001; 83605; 83690; 85025; 87040; 87077; 87086; 87088; 87186; 96361; 96365; 99283; A4216

== ENCOUNTER 2025-01-06 12:47 | Emergency (ER) | payer MEDICARE, BC, SELFPAY ==
[2025-01-06] VITALS (11 sets, daily range): BP systolic 104–150; BP diastolic 58–114; PULSE 57–85; RESP 15–18; TEMP 36.8–37.1; O2SAT 95–99; BMI 32.8
--- NOTE | 2025-01-06 13:13 | EX.ED.DYSGE1 ---
HPI History of Present Illness Chief Complaint: Complaint Detail of Chief Complaint: Dysuria Informant: patient Narrative Narrative: Patient presents to the emergency department with complaint of dysuria that started around 8 PM last night. States he was recently admitted to the [facility] for a UTI and spent 4 days in the hospital. Patient tells me that a few weeks ago he had a TURP at [facility]. He complains of some frequency. Low-grade temp at home up to 99.2. Had some nausea but no vomiting. Describes some mild suprapubic discomfort. Denies any significant pain in his back. Patient lives alone. [facility] Medical History Fracture, ribs Fracture of transverse process of lumbar vertebra Contusion of left flank Fall Acute on chronic urinary retention Leukocytosis Closed fracture of right elbow Weakness Acute UTI Fever Rhabdomyolysis Fall Right elbow pain Kidney stones Non-smoker Asthma Hypertension Home Medications ?Medication ?Instructions ?Recorded ?Last Taken ?Type azelastine 137 mcg (0.1 %) nasal 1 spray intranasal DAILY nasal 05/22/24 06/19/24 History spray ergocalciferol (vitamin D2) 1,250 1,250 mcg PO .weekly bones 05/22/24 06/16/24 History mcg (50,000 unit) capsule lisinopril 10 1 tab PO DAILY bp 05/22/24 06/19/24 History mg-hydrochlorothiazide 12.5 mg tablet polyethylene glycol 3350 17 17 g PO DAILY PRN bowels 05/22/24 05/15/24 History gram/dose oral powder oxycodone 5 mg tablet 5 mg PO Q4H PRN PRN Pain Score 06/21/24 Unknown Rx 4-10 5 days #30 tabs phenazopyridine 200 mg tablet 200 mg PO TID 6 doses #6 tabs 08/29/24 Unknown Rx (Pyridium) colestipol 1 gram tablet 1 g PO BID 01/06/25 Unknown History tamsulosin 0.4 mg capsule 0.4 mg PO BID 01/06/25 Unknown History Allergy/AdvReac Type Severity Reaction Status Date / Time ramelteon Allergy hallucinati Verified 01/06/25 12:50 ons Surgical History (Updated 01/06/25 @ 17:[address] 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 Shoulder joint replacement by other means Social History housing: house Smoking Status: Never smoker ROS ROS ED Review of Systems ROS Unobtainable: other Constitutional Constitutional ED: Reports lethargy; Denies chills, fever(s), sweats or weight loss Eyes Eyes: Denies blurry vision, change in vision or diplopia ENT ENT ED: Denies rhinorrhea or sore throat Cardiovascular Cardiovascular: Denies chest pain, orthopnea or racing heartbeat Respiratory/Chest Respiratory/Chest: Denies cough, dyspnea, dyspnea on exertion, orthopnea or sputum Gastrointestinal Gastrointestinal: Reports abdominal pain and nausea; Denies diarrhea or vomiting Genitourinary Genitourinary ED: Reports dysuria and urinary frequency; Denies hematuria Musculoskeletal Musculoskeletal: Denies arthralgias, back pain, myalgias or neck pain Integumentary Denies abscess, Abrasions or rash Neurologic Neurologic: Denies headache(s) or weakness Psychiatric Psychiatric: Denies anxiety, depression or suicidal thoughts Endocrine Endocrinology: Denies polydipsia, polyphagia or polyuria Hematologic/Lymphatic Hematologic/Lymphatic: Denies easy bleeding, easy bruising or lymphadenopathy Allergic/Immunologic Allergic/Immunologic ED: Denies mouth swelling, tongue swelling or urticaria EXAM Physical Exam Const Vital Signs: 01/06/25 12:48 01/06/25 12:50 01/06/25 13:50 Temperature 98.6 F 98.6 F 98.6 F Temperature Source Oral Oral Oral Pulse Rate 85 81 65 Respiratory Rate 16 16 15 Blood Pressure 150/114 H 150/114 H 113/66 Blood Pressure Mean 126 126 81 Pulse Ox 98 98 96 Oxygen Delivery Method Room Air Room Air Room Air Positive well nourished and well developed General Appearance ED: well developed and NAD HEENT Reports TM's clear and moist mucous membranes normocephalic and atraumatic; Negative for trauma or tenderness Tympanic Membrane ED: Yes TM's clear Eyes PERRL and EOMs intact bilaterally General Eye ED: Negative for pale conjunctiva or scleral icterus Neck no lymphadenopathy, supple and no JVD General: Negative for tenderness Chest Wall inspection of chest normal and palpation of chest normal Chest: Negative for tenderness Resp normal respiratory effort and clear to auscultation bilaterally Effort and Inspection: Negative for respiratory distress or pain with movement Auscultation: Negative for rhonchi, wheezes or diminished lung sounds Cardio regular rate, regular rhythm, S1 normal heart sound, S2 normal heart sound and no murmurs Peripheral Pulses: pulses 2+ throughout GI normal to inspection, nondistended, normoactive bowel sounds, soft to palpation, non-distended and no masses GI Narrative: Mild suprapubic tenderness on exam. There is no rebound, rigidity, or peritoneal signs. No masses palpated. Back/Spine no CVA tenderness and no thoracic nor lumbar tenderness Extremity normal to inspection General Extremety ED: Negative for edema General Extremity: Negative for edema Neuro oriented x3, CN's II-XII intact bilaterally, no sensory deficits noted and gait normal Sensorium / Orientation: awake, alert, oriented to person, oriented to place and oriented to time Motor Exam: strength 5/5 throughout and strength abnormal Psych mental status grossly normal Skin no rashes or lesions noted and no wounds MDM MDM MDM Narrative Medical decision making narrative: Patient presents with dysuria and recently admitted for treatment for UTI at [facility]. He said chills and sweats. Low-grade temp at home. Established. CBC with inflammation and elevated white count of 12.9 with hemoglobin 9.7 and platelet count of 234. Chemistries unremarkable. Urine positive for infection. Urine culture sent. Blood cultures ordered. Patient started on Rocephin 1 g IV. Will discuss with hospitalist to evaluate for admission for UTI. Currently do not believe he is septic but concerned about recent treated infection and the fact that patient was diaphoretic and had chills. Lab Data Attestation: I reviewed the patient's lab results. Labs: Laboratory Results - last 24 hr 01/06/25 01/06/25 13:35 13:55 WBC 12.9 H RBC 2.74 L Hgb 9.7 L Hct 28.5 L MCV 104.0 H MCH 35.4 H MCHC 34.0 RDW Std Deviation 47.4 H RDW Coeff of Jam 12.5 Plt Count 234 MPV 8.6 Immature Gran % (Auto) 0.700 Neut % (Auto) 85.0 H Lymph % (Auto) 5.6 L Mcduffie % (Auto) 7.7 Eos % (Auto) 0.6 Baso % (Auto) 0.4 Absolute Neuts (auto) 11.0 H Absolute Lymphs (auto) 0.73 L Nucleated RBC % 0 Sodium 133 Potassium 4.5 Chloride 98 Carbon Dioxide 22.7 Anion Gap 12 BUN 26 H Creatinine 1.18 Estim Creat Clear Calc 62.81 Est GFR (MDRD) Non-Af 62 BUN/Creatinine Ratio 22.0 H Glucose 103 H Lactic Acid 1.4 Calcium 9.4 Urine Color Yellow Urine Clarity Turbid Urine pH 6.0 Ur Specific Worley 1.015 Urine Protein 500 H Urine Glucose (UA) Normal Urine Ketones Negative Urine Occult Blood 250 H Urine Nitrite Positive H Urine Bilirubin Negative Urine Urobilinogen Normal Ur Leukocyte Esterase 500 H Urine RBC 10-25 SEEN Urine WBC >100 SEEN Ur Squamous Epith Cells 0 SEEN Urine Bacteria 2+ Urine Mucus 0 SEEN Discharge Plan Triage Chief Complaint: Complaint ED Provider: Lamont Fajardo Dx/Rx/DC Orders Clinical Impression: Acute UTI, Weakness Primary Care Provider: Ailin Magallon Disposition Disposition: DC/Tx to Another Type of HCF
--- OUTSIDE RECORDS SUMMARY | 2025-01-06 13:25 | XMS RPT_ITS | CCD ---
Author Organization [facility] Team Providers Care Agricultural Technician Name Role Phone FOSTER, SAMUEL Unavailable Unavailable FOSTER, SAMUEL Unavailable Unavailable FOSTER, SAMUEL Unavailable Unavailable FOSTER, SAMUEL Unavailable Unavailable FOSTER, SAMUEL Unavailable Unavailable FOSTER, SAMUEL Unavailable Unavailable FOSTER, SAMUEL Unavailable Unavailable FOSTER, SAMUEL Unavailable Unavailable FOSTER, SAMUEL Unavailable Unavailable FOSTER, SAMUEL Unavailable Unavailable FOSTER, SAMUEL Unavailable Unavailable FOSTER, SAMUEL Unavailable Unavailable FOSTER, SAMUEL Unavailable Unavailable FOSTER, SAMUEL Unavailable Unavailable FOSTER, SAMUEL Unavailable Unavailable FOSTER, SAMUEL Unavailable Unavailable FOSTER, SAMUEL Unavailable Unavailable FOSTER, SAMUEL Unavailable Unavailable FOSTER, SAMUEL Unavailable Unavailable FOSTER, SAMUEL Unavailable Unavailable Ailin Pierson MD Primary Care Provider Ailin Pierson MD Primary Care Provider Ailin Pierson MD Primary Care Provider Vince Huffman MD Unavailable Carley Armenta PA-C Unavailable Older [place] DECORATOR.DIRECTOR OF COMPENSATION, Kayla Unavailable Nancy Villarreal PA-C Unavailable VINCE HUFFMAN Referring Unavailable AILIN PIERSON Primary Care Unavailable VINCE HUFFMAN Referring Unavailable AILIN IPERSON Primary Care Unavailable Dr. Ailin Pierson MD Primary Care Provider [phone] Dr. Marin Platt DO Attending Provider Dr. Marin Platt DO Emergency Provider Dr. Mich Stokes MD Emergency Provider [phone] Jose BHARDWAJ, Dr. Scott Admit Provider Unavailab elin Garcia MD, Dr. Scott Other Provider Unavailab Samuel Vincent MD Other Provider Dr. Brayden Gaona DO Attending Provider Jose BHARDWAJ, Dr. Scott Attending Provider Renee Gaona DO, Dr. Owen Other Provider Samuel Adler MD Attending Provider Jimenez DAWSON, Dr. Owen Referring Provider Faustino Starr MD Emergency Provider Razia BHARDWAJ, Dr. Itzel Hancock Admit Provider Razia BHARDWAJ, Dr. Itzel Hancock Attending Provider Razia BHARDWAJ, Dr. Itzel Hancock Other Provider Scotty DAWSON, Dr. Miguel Emergency Provider Ganta, Ailin Primary Care Unavailable Garcia, Achintya Admitting Unavailable Garcia, Achintya Attending Unavailable Jose, Achintya Consulting Unavailable Brayden Gaona Attending Unavailable Samuel Adler Consulting Unavailable Brayden Gaona Consulting Unavailable Samuel Adler Attending Unavailable Brayden Gaona Referring Unavailable Ganta, Ailin Primary Care Unavailable Koram, Itzel Karissa Admitting Unavailable Koram, Itzel Karissa Attending Unavailable Koram, Itzel Karissa Consulting Unavailable Ganta, Ailin Primary Care Unavailable Marin Platt Attending Unavailabl e Ganta, Ailin Primary Care Unavailable Lamont Fajardo Attending Unavailable Ganta, Ailin Primary Care Unavailable Mich Stokes Referring Unavailable Garcia, Achintya Consulting Unavailable Brayden Gaona Attending Unavailable Garcia, Achintya Admitting Unavailable Samuel Adler Consulting Unavailable Ganta, Ailin Primary Care Unavailable Koram, Itzel Karissa Admitting Unavailable Koram, Itzel Karissa Attending Unavailable Jarrod RN, Sophia Unavailable Unavailable Jarrod RN, Sophia Unavailable Unavailable Jered RN, Joseluis Zaman Unavailable GANTA, AILIN Primary Care Unavailable RADHA JR, JUAN GENE Referring Unavaila ble GANGEL JR, JUAN GENE Referring Unavaila ble GANGEL JR, JUAN GENE Attending Unavaila ble GANGEL JR, JUAN GENE Admitting Unavaila ble GANTA, AILIN Primary Care Unavailable GANTA, AILIN Referring Unavailable GANTA, AILIN Primary Care Unavailable PROVIDER, UNKNOWN Attending Unavailable GANTA, AILIN Primary Care Unavailable AN, JIMBO Consulting Unavailable KIZZY, RIMON Attending Unavailable KATERINA, THI KARIMI Admitting Unavailable GANTA, AILIN Primary Care Unavailable GANTA, AILIN Primary Care Unavailable GANTA, AILIN Primary Care Unavailable GANTA, AILIN Primary Care Unavailable GANTA, AILIN Primary Care Unavailable IXMENA, DAESUNG Attending Unavailable GANTA, AILIN Attending Unavailable GANTA, AILIN Primary Care Unavailable GANTA, AILIN Primary Care Unavailable GANTA, AILIN Primary Care Unavailable GANTA, AILIN Primary Care Unavailable GANTA, AILIN Primary Care Unavailable GANTA, AILIN Primary Care Unavailable GANTA, AILIN Primary Care Unavailable GANTA, AILIN Primary Care Unavailable XIMENA, DAESUNG Attending Unavailable GANTA, AILIN Primary Care Unavailable GANTA, AILIN Primary Care Unavailable GANTA, AILIN Primary Care Unavailable GANTA, AILIN Primary Care Unavailable XIMENA, DAESUNG Attending Unavailable GANTA, AILIN Primary Care Unavailable GANTA, AILIN Attending Unavailable KIZZY, DAVIDON Referring Unavailable GANTA, AILIN Primary Care Unavailable GANTA, AILIN Primary Care Unavailable XIMENA, DAESUNG Referring Unavailable GANTA, AILIN Primary Care Unavailable XIMENA, DAESUNG Attending Unavailable GANTA, AILIN Referring Unavailable GANTA, AILIN Primary Care Unavailable GANTA, AILIN Primary Care Unavailable SARAH WARE Attending Unavailable GANTA, AILIN Referring Unavailable GANTA, AILIN Primary Care Unavailable GANTA, AILIN Attending Unavailable GANTA, AILIN Primary Care Unavailable GANTA, AILIN Primary Care Unavailable GANTA, AILIN Attending Unavailable GANTA, AILIN Primary Care Unavailable GANTA, AILIN Primary Care Unavailable JUAN BLANTON JR Referring Unavaila ble GANTA, AILIN Primary Care Unavailable GANTA, AILIN Primary Care Unavailable GANTA, AILIN Primary Care Unavailable XIMENA, DAESUNG Attending Unavailable GANTA, AILIN Primary Care Unavailable GANTA, AILIN Primary Care Unavailable SAMEER RENDON Attending Unavailable GANTA, AILIN Primary Care Unavailable GANTA, AILIN Primary Care Unavailable GANTA, AILIN Primary Care Unavailable GANTA, AILIN Primary Care Unavailable GANTA, AILIN Primary Care Unavailable GANTA, AILIN Primary Care Unavailable GANTA, AILIN Primary Care Unavailable GANTA, AILIN Primary Care Unavailable SELF Referring Unavailable XIMENA, DAESUNG Attending Unavailable GANTA, AILIN Attending Unavailable GANTA, AILIN Primary Care Unavailable GANTA, AILIN Referring Unavailable GANTA, AILIN Primary Care Unavailable GANGEL JR, JUAN GENE Attending Unavaila ble GANTA, AILIN Primary Care Unavailable GANTA, AILIN Primary Care Unavailable VINCE HUFFMAN Attending Unavailable GANTA, AILIN Primary Care Unavailable GANTA, AILIN Primary Care Unavailable GANTA, AILIN Primary Care Unavailable GANTA, AILIN Referring Unavailable GANTA, AILIN Primary Care Unavailable GANTA, AILIN Referring Unavailable GANTA, AILIN Primary Care Unavailable SOLO BAKER Attending Unavailable GANTA, AILIN Primary Care Unavailable GANTA, AILIN Primary Care Unavailable SOLO BAKER Referring Unavailable GANTA, AILIN Primary Care Unavailable GANTA, AILIN Primary Care Unavailable VINCE HUFFMAN Attending Unavailable XIMENA, DACHEMAUNG Referring Unavailable GANTA, AILIN Primary Care Unavailable GANTA, AILIN Primary Care Unavailable GANTA, AILIN Attending Unavailable SELF Referring Unavailable GANTA, AILIN Primary Care Unavailable GANTA, AILIN Primary Care Unavailable Allergies Allergy Classification Reported Allergen(s) Allergy Type Date of Onset Reaction(s) Facility (11 sources) environmental [Other] Propensity to adverse reactions 6 [facility] Work Phone: (20 sources) ramelteon; Translations: [RAMELTEON] Drug Allergy 4 Mental Status Change [facility] (1 source) [facility]on Drug Allergy 5 [facility] Repository Medications Current Medications Medication Drug Class(es) Dates Sig (Normalized) Sig (Original) acetaminophen 650 mg / dexbrompheniramine maleate 2 mg oral tablet (3 sources) Start: 08-30-2017 End: 03-25-2022 take 1 tablet by mouth once daily acetaminophen/d-bromp heniramin 650-2 mg tab Indications: S/P left unicompartmental knee replacement Take 650 mg by mouth once daily. 0 08/30/2017 03/25/2022 Discontinued (Discontinued by Patient) Comment on above: Take 650 mg by mouth once daily. Acetaminophen / oxyCODONE (20 sources) Opioid Agonist take 1-2 tablets by mouth every four hours as needed for pain oxyCODONE-acetaminoph en 5-325 mg (PERCOCET) Take 1-2 tablets by mouth every 4 hours as needed (for pain). Suspended take 1-2 tablets by mouth every four hours as needed for pain oxyCODONE-acetaminophen 5-325 mg (PERCOC ET) Take 1-2 tablets by mouth every 4 hours as needed (for pain). Active amoxicillin 875 mg / clavulanate 125 mg oral tablet (1 source) Penicillin-class Antibacterial Start: 11-29-2024 End: 12-02-2024 take 1 tablet by mouth every twelve hours amoxicillin-clavulanate potassium (AUGMENTIN) 875-125 mg per tablet Take 1 tablet by mouth every 12 hours for 3 days. 6 tablet 11/29/2024 12/02/2024 Active azelastine hydrochloride 0.137 mg/actuat metered dose nasal spray (20 sources) Histamine-1 Receptor Antagonist Start: 05-22-2024 Azelastine 137 mcg (0.1 %) spray,non-aerosol Active 1 NMA INTRANASAL DAILY May 22, 2024 1:00am Start: 04-23-2024 take 1 spray(s) nasa l route twice daily azelastine 0.1% nasal spray Use 1 [place] in each nostril two times a day. 30 mL 1 04/23/2024 Active cephalexin 500 mg oral capsule (2 sources) Cephalosporin Antibacterial Start: 12-27-2024 End: 01-01-2025 take 1 capsule by mouth four times daily cephALEXin (KEFLEX) 500 mg capsule Take 1 capsule by mouth four times daily for 5 days. 20 capsule 12/27/2024 01/01/2025 Active Start: 08-29-2024 take 1 capsule by [facility] every six hours Cephalexin 500 mg capsule Active 500 mg PO EVERY 6 HOURS August 29, 2024 12:00am citalopram 20 mg oral tablet (20 sources) Serotonin Reuptake Inhibitor Start: 10-10-2024 take 1 tablet by mouth once daily citalopram (CELEXA) 20 mg tablet Take 1 tablet by mouth once daily. 90 tablet 3 10/10/2024 Active Start: 08-28-2024 End: 10-10-2024 citalopram hydrobromide (MK EXA) 10 mg tablet Take 1 tablet by mouth once daily. Start with half a pill a week and then go to a full pill 90 tablet 3 08/28/2024 10/10/2024 Discontinued colestipol hydrochloride 1000 mg oral tablet (20 sources) Bile Acid Sequestrant Start: 10-10-2024 take 1 tablet by mouth twice daily colestipol (COLESTID) 1 gram tablet Take 1 tablet by mouth two times a day. 60 tablet 5 10/10/2024 Active docusate sodium 100 mg oral capsule (3 sources) Start: 08-30-2017 End: 03-25-2022 take 1 capsule by mouth twice daily as needed for constipation docusate sodium (COLACE) 100 mg capsule Indications: S/P left unicompartmental knee replacement Take 1 capsule by mouth twice daily as needed for Constipation. 0 08/30/2017 03/25/2022 Discontinued (Discontinued by Patient) Comment on above: Take 1 capsule by mo ut twice daily as needed for Constipation. ergocalciferol 1.25 mg oral capsule (20 sources) Provitamin D2 Compound Start: 05-22-2024 Ergocalciferol (Vitamin D2) 1,250 mcg (50,000 unit) capsule Active 1250 ug PO .weekly May 22, 2024 1:00am takes on Satur Start: 12-30-2023 take 1 capsule by mo ut two times weekly, then take 1 capsule by mouth two times weekly, then take 1 capsule by mouth every week ergocalciferol 50,000 unit capsule (VITAMIN D2, DRISDOL) Take 1 capsule by mouth two times a week. TO BE TAKEN ORALLY DIRECTED. Take 1 tablet by mouth twice weekly [id number], then decrease to 1 tablet weekly. 8 capsule 5 12/30/2023 Active finasteride 5 mg oral tablet (14 sources) 5-alpha Reductase Inhibitor Start: 10-09-2024 take 1 tablet by mouth once daily finasteride (PROSCAR) 5 mg tablet Take 1 tablet by mouth once daily. 10/09/2024 Active homatropine methylbromide 0.3 mg/ml / HYDROcodone bitartrate 1 mg/ml oral solution (1 source) Opioid Agonist, Cholinergic Muscarinic Agonist Start: 07-02-2024 End: 07-07-2024 HYDROcodone-ruchi tropine (HYCODAN, WITH HOMATROPINE,) 5-1.5 mg/5 mL syrup Indications: Upper respiratory tract infection, unspecified type Take 5 mL by mouth every 6 hours as needed for cough for up to 5 days. 100 mL 07/02/2024 07/07/2024 Active hydroCHLOROthiazide 12.5 mg / lisinopril 10 mg oral tablet (20 sources) Thiazide Diuretic, Angiotensin Converting Enzyme Inhibitor Start: 05-22-2024 Lisinopril-[facility] chlorothiazide 10-12.5 mg tablet Active 1 {tbl} PO DAILY May 22, 2024 1:00am Start: 03-03-2021 End: 04-16-2024 take 10-12.5 mg by mouth once lisinopril-hydroCHLOROthiazide (ZESTORET IC) 10-12.5 mg per tablet Indications: Essential hypertension, benign Take 1 tablet by mouth once daily. 90 tablet 3 04/16/2024 Active Comment on above: Take 1 tablet by [place] th once daily. iv contrast (will be provided with radiology test) (1 source) Start: End: iv contrast (will be provided with radiology test) MRI Prostate Inject, intravenously, once for 1 dose. No IV access, insert saline lock prior to the beginning of sedation, infusion, injection of imaging exam. Discontinue saline lock post exam. If Pt. has a central line or IVAD, may access for administration according to line specific nursing protocol. Once exam is complete flush line and de-access according to line specific nursing protocol in the MR contrast administration guidelines link. 1 Each 0 2023 07/20/2023 Active Comment on above: MRI Prostate Inject, intravenously, once for 1 dose. No IV access, insert saline lock prior to the beginning of sedation, infusion, injection of imaging exam. Discontinue saline lock post exam. If Pt. has a central line or IVAD, may access for administration according to line specific nursing protocol. Once exam is complete flush line and de-access according to line specific nursing protocol in the MR contrast administration guidelines link. lidocaine 0.05 mg/mg medicated patch (1 source) Antiarrhythmic, Amide Local Anesthetic Start: 025 Lidocaine 5 % Adhesive Patch,Medicated Active 1 NMA TOPICAL DAILY June 21, 2024 1:00am apply over left flank and lower back Please contact the information source for Protocol details. mupirocin 0.02 mg/mg topical ointment (3 sources) RNA Synthetase Inhibitor Antibacterial Start: 018 End: mupirocin (BACTROBAN) 2 % ointment 0 07/22/2017 03/25/2022 Discontinued (Discontinued by Patient) oxyCODONE hydrochloride 5 mg oral tablet (1 source) Opioid Agonist Start: take 1 tablet by mouth every four hours as needed for pain Oxycodone 5 mg Tablet Active 5 mg PO EVERY 4 HOURS NEEDED as needed for Pain Score 4-10 30 5 June 21, 2024 phenazopyridine hydrochloride 200 mg oral tablet (1 source) Start: 025 take 1 tablet by mouth three times daily Phenazopyridine (Pyridium) 200 mg tablet Active 200 mg PO THREE TIMES A DAY August 29, 2024 12:00am polyethylene glycol 3350 32054 mg powder for oral solution (20 sources) Osmotic Laxative Start: 024 take 17 g by mouth once daily as needed Polyethylene Glycol 3350 17 gram/dose powder Active 17 g PO DAILY as needed for bowels May 22, 2024 1:00am Start: 09-28-2023 polyethylene g lycol 3350 (MIRALAX) 17 gram/dose powder Take 17 g by mouth once daily. Dissolve dose in 4 - 8 ounces of liquid and take as directed. 510 g 09/28/2023 Active tamsulosin hydrochloride 0.4 mg oral capsule (20 sources) alpha-Adrenergic Ayaz Start: 09-24-2024 End: 09-24-2025 take 1 capsule by mouth twice daily tamsulosin (FLOMAX) 0.4 mg Take 1 capsule by mouth two times a day. 180 capsule 3 09/24/2024 09/24/2025 Active Start: 05-24-2024 take 2 capsules by m outh at bedtime Tamsulosin 0.4 mg Capsule Active 0.8 mg PO AT BEDTIME 60 May 24, 2024 1:00am Start: 04-02-2022 End: 05-24-2024 take 1 capsule by mouth once daily at bedtime tamsulosin (FLOMAX) 0.4 mg Take 1 capsule by mouth daily at bedtime. 90 capsule 3 04/16/2024 Active Comment on above: Take 1 capsule by mo uth daily at bedtime. terbinafine 250 mg oral tablet (2 sources) Allylamine Antifungal Start: 2 End: 3 take 1 tablet by mouth once daily terbinafine HCl (LAMISIL) 250 mg tablet Indications: Onychomycosis Take 1 tablet by mouth once daily. 90 tablet 0 03/25/2022 06/23/2022 Active Comment on above: Take 1 tablet by [place] once daily. Completed/Discontinued Medications Medication Drug Class(es) Dates Sig (Normalized) Sig (Original) ampicillin 500 mg oral capsule (2 sources) Penicillin-class Antibacterial Start: 09-28-2024 End: 10-08-2024 take 1 capsule by mouth four times daily ampicillin (PRINCIPEN) 500 mg capsule Take 1 capsule by mouth four times daily for 10 days. 40 capsule 09/28/2024 10/08/2024 aspirin 81 mg oral tablet (20 sources) Platelet Aggregation Inhibitor, Nonsteroidal Anti-inflammatory Drug Start: 05-22-2024 End: 06-21-2024 take 1 capsule by mouth once daily Aspirin 81 mg capsule Discontinued 81 mg PO DAILY May 22, 2024 1:00am June 21, 2024 3:16pm Start: 08-30-2017 take 1 tablet by [facility] once daily aspirin, enteric coated (ASPIRIN, ENTERIC COATED) 81 mg EC tablet Indications: S/P left unicompartmental knee replacement Take 81 mg by mouth once daily. 08/30/2017 Active Comment on above: Take 1 tablet by [facility] once daily. cefdinir 300 mg oral capsule (1 source) Cephalosporin Antibacterial Start: 4 End: 5 take 1 capsule by mouth twice daily Cefdinir 300 mg capsule Discontinued 300 mg PO TWICE A DAY May 24, 2024 1:00am June 19, 2024 1:17pm Start on 05/25/2024 2 ml gentamicin 40 mg/ml injection (1 source) Start: 3 End: 3 gentamicin 40 mg/mL 160 mg injection Start: 04-19-2023 End: 04-19-2023 gentamicin 40 mg/mL 160 mg i njection 0.375 ml leuprolide acetate 120 mg/ml prefilled syringe (6 sources) Gonadotropin Releasing Hormone Receptor Agonist Start: 10-11-2024 End: 10-11-2024 leuprolide 45 mg injection (ELIGARD) Start: 10-11-2024 End: 10-11-2024 inject 1 dose by subcutaneous injection once 45 mg, SUBCUTANEOUS, ONCE, 1 dose, On Radha 10/11/24 at 0000, Hazardous Chemotherapy Drug: Use appropriate PPE. levoFLOXacin 750 mg oral tablet (1 source) Quinolone Antimicrobial Start: 04-19-2023 End: 04-19-2023 levoFLOXacin 750 mg tab(s) (LEVAQUIN) Start: 04-19-2023 End: 04-19-2023 levoFLOXacin 750 mg tab(s) ( LEVAQUIN) naproxen 500 mg oral tablet (20 sources) Nonsteroidal Anti-inflammatory Drug Start: 03-30-2023 End: 06-21-2024 take 1 tablet by mouth every twelve hours as needed naproxen (NAPROSYN) 500 mg tablet Take 1 tablet by mouth two times a day as needed (for pain/inflammation). Take with food. 30 tablet 1 09/28/2023 Suspended Comment on above: Take 1 tablet by mouth two times a day a s needed (for pain/inflammation). Take with food. ramelteon 8 mg oral tablet (20 sources) Melatonin Receptor Agonist Start: 04-23-2024 End: 10-10-2024 take 1 tablet by mouth once daily at bedtime ramelteon (ROZEREM) 8 mg tablet Indications: Insomnia, unspecified type Take 1 tablet by mouth daily at bedtime. 30 tablet 1 04/23/2024 10/10/2024 Discontinued Problems Active Problems Problem Classification Problem Date Documented Da te Episodic/Chronic Abdominal pain (1 source) Unspecified abdominal pain; Translations: [Unspecified abdominal pain] Onset: 5 Episodic Aortic; peripheral; and visceral artery aneurysms (4 sources) Dilatation of aorta; Translations: [Aortic ectasia, unspecified site] Onset: 5 12-11-2024 Chronic Asthma (20 sources) Unspecified asthma, uncomplicated; Translations: [Asthma, unspecified type, unspecified] Onset: 6 09-15-2009 Chronic Cancer of prostate (20 sources) Malignant tumor of prostate; Translations: [Malignant neoplasm of prostate] Onset: 4 09-28-2023 Chronic Cardiac dysrhythmias (4 sources) Supraventricular premature beats; Translations: [Atrial premature depolarization] Onset: 5 10-10-2024 Chronic Conditions associated with dizziness or vertigo (10 sources) Lightheadedness; Translations: [Dizziness and giddiness] Onset: 5 12-17-2024 Episodic Conduction disorders (1 source) Left anterior fascicular block; Translations: [Left anterior fascicular block] 10-10-2024 Chronic Diseases of mouth; excluding dental (1 source) Geographic tongue; Translations: [Geographic tongue] Episodic Diseases of white blood cells (2 sources) Leukocytosis; Translations: [Elevated white blood cell count, unspecified] 06-01-2024 Chronic Disorders of lipid metabolism (20 sources) Mixed hyperlipidemia; Translations: [Mixed hyperlipidemia] Onset: 6 06-12-2020 Chronic E Codes: Fall (10 sources) Fall; Translations: [Unspecified fall, initial encounter] Onset: 5 Resolved: 5 06-01-2024 Episodic Esophageal disorders (4 sources) Gastroesophageal reflux disease; Translations: [Gastro-esophageal reflux disease without esophagitis] Onset: 8 12-24-2024 Chronic Essential hypertension (20 sources) Benign essential hypertension; Translations: [Essential (primary) hypertension] Onset: 0 Chronic Fever of unknown origin (2 sources) Fever; Translations: [Fever, unspecified] 06-01-2024 Episodic Fracture of upper limb (2 sources) Elbow fracture - closed; Translations: [Unspecified fracture of lower end of right humerus, initial encounter for closed fracture] 06-01-2024 Episodic Genitourinary symptoms and ill-defined conditions (2 sources) Urinary catheter in situ; Translations: [Encounter for fitting and adjustment of urinary device] Onset: 5 11-05-2024 Chronic Genitourinary symptoms and ill-defined conditions (18 sources) Increased frequency of urination; Translations: [Frequency of micturition] Onset: 5 Resolved: 5 09-28-2023 Episodic Hyperplasia of prostate (20 sources) Benign prostatic hypertrophy with outflow obstruction; Translations: [Benign prostatic hyperplasia with lower urinary tract symptoms] Onset: 0 05-22-2012 Chronic Mycoses (1 source) Onychomycosis; Translations: [Tinea unguium] Episodic Nutritional deficiencies (3 sources) Vitamin D deficiency; Translations: [Vitamin D deficiency, unspecified] Onset: 5 12-29-2023 Chronic Nutritional deficiencies (1 source) Cobalamin deficiency; Translations: [Deficiency of other specified B group vitamins] 12-29-2023 Episodic Osteoarthritis (20 sources) Unilateral primary osteoarthritis, left knee; Translations: [Localized, primary osteoarthritis of the shoulder region] Onset: 8 09-15-2009 Chronic Osteoporosis (4 sources) Osteoporosis; Translations: [Other osteoporosis without current pathological fracture] Onset: 5 06-27-2024 Chronic Other aftercare (1 source) Post-discharge follow-up; Translations: [Encounter for follow-up examination after completed treatment for conditions other than malignant neoplasm] 12-11-2024 Episodic Other aftercare (2 sources) Encounter for follow-up examination after completed treatment for conditions other than malignant neoplasm; Translations: [Hospital discharge follow-up] Onset: 5 Episodic Other bone disease and musculoskeletal deformities (1 source) Bone density below reference range; Translations: [Other specified disorders of bone density and structure, unspecified site] 08-28-2024 Episodic Other circulatory disease (1 source) Disorder of arteries and arterioles, unspecified; Translations: [Disorder of artery or arteriole] Onset: 5 Chronic Other circulatory disease (10 sources) Low blood pressure; Translations: [Hypotension, unspecified] Onset: 5 12-17-2024 Episodic Other connective tissue disease (2 sources) Presence of left artificial knee joint; Translations: [Presence of left artificial knee joint] Onset: 8 Chronic Other connective tissue disease (2 sources) Recurrent falls ; Translations: [Repeated falls] 06-28-2024 Episodic Other connective tissue disease (2 sources) Rhabdomyolysis; Translations: [Rhabdomyolysis] 06-01-2024 Episodic Other diseases of bladder and urethra (20 sources) Bladder neck obstruction; Translations: [Bladder-neck obstruction] Onset: 0 10-30-2009 Chronic Other fractures (1 source) Closed fracture of multiple left and right ribs; Translations: [Multiple fractures of ribs, bilateral, sequela] 06-27-2024 Episodic Other fractures (2 sources) Fracture of multiple ribs ; Translations: [Multiple fractures of ribs, unspecified side, initial encounter for closed fracture] 06-29-2024 Episodic Other fractures (2 sources) Fracture of transverse process of lumbar vertebra; Translations: [Unspecified fracture of unspecified lumbar vertebra, initial encounter for closed fracture] 06-29-2024 Episodic Other fractures (1 source) Multiple fractures of ribs, unspecified side, initial encounter for closed fracture; Translations: [Multiple fractures of ribs, unspecified side, initial encounter for closed fracture] Onset: 5 Episodic Other fractures (1 source) Unspecified fracture of unspecified lumbar vertebra, initial encounter for closed fracture; Translations: [Unspecified fracture of unspecified lumbar vertebra, initial encounter for closed fracture] Onset: 5 Episodic Other fractures (1 source) Multiple fractures of ribs, left side, initial encounter for closed fracture; Translations: [Multiple fractures of ribs, left side, initial encounter for closed fracture] Onset: 5 Episodic Other gastrointestinal disorders (1 source) Constipation; Translations: [Constipation, unspecified] 09-28-2023 Episodic Other inflammatory condition of skin (20 sources) Rosacea; Translations: [Rosacea, unspecified] Onset: 8 05-22-2012 Chronic Other male genital disorders (1 source) Pain of right testicle; Translations: [Right testicular pain] 03-29-2023 Episodic Other nervous system disorders (2 sources) Other chronic pain; Translations: [Other chronic pain] Onset: 7 Chronic Other non-traumatic joint disorders (2 sources) Pain in elbow; Translations: [Pain in right elbow] 06-01-2024 Episodic Other nutritional; endocrine; and metabolic disorders (20 sources) Obesity; Translations: [Obesity, unspecified] Onset: 0 09-15-2009 Chronic Other nutritional; endocrine; and metabolic disorders (20 sources) Obese class I; Translations: [Obesity, unspecified] Onset: 4 11-21-2023 Chronic Other nutritional; endocrine; and metabolic disorders (1 source) Hypomagnesemia; Translations: [Hypomagnesemia] 10-10-2024 Chronic Other screening for suspected conditions (not mental disorders or infectious disease) (20 sources) Patient encounter status; Translations: [Encounter for screening for malignant neoplasm of prostate] Onset: 4 Resolved: 4 Episodic Other upper respiratory disease (1 source) Nasal sinus problem; Translations: [Other specified disorders of nose and nasal sinuses] 09-28-2023 Episodic Other upper respiratory infections (1 source) Upper respiratory infection; Translations: [Acute upper respiratory infection, unspecified] 07-02-2024 Episodic Residual codes; unclassified (2 sources) Insomnia; Translations: [Insomnia, unspecified] 09-28-2023 Episodic Residual codes; unclassified (1 source) Finding related to ability to manage personal health care; Translations: [Other specified health status] 08-28-2024 Episodic Residual codes; unclassified (1 source) Acquired absence of other genital organ(s); Translations: [S/P TURP] Onset: 5 Episodic Spondylosis; intervertebral disc disorders; other back problems (20 sources) Cervical spondylosis without myelopathy; Translations: [Spondylosis without myelopathy or radiculopathy, cervical region] 09-15-2009 Chronic Superficial injury; contusion (4 sources) Tick bite; Translations: [Insect bite (nonvenomous) of right upper arm, initial encounter] Onset: 5 Episodic Unclassified (1 source) Follow-up / 145() Onset: 8 Unclassified (2 sources) Obesity, Class I, BMI 30-34.9; Translations: [Obesity, Class I, BMI 30-34.9] Onset: 4 Unclassified (1 source) Radiotherapy On-treatment Visit Onset: 5 Past or Other Problems Problem Classification Problem Date Documented Date Episodic/Chronic Allergic reactions (20 sources) Radiation-induced dermatosis; Translations: [Other skin changes due to chronic exposure to nonionizing radiation] Onset: 05-17-2008 Resolved: 09-15-2009 09-15-2009 Episodic Fluid and electrolyte disorders (4 sources) Hyponatremia; Translations: [Hypo-osmolality and hyponatremia] Onset: 12-24-2024 Resolved: 12-27-2024 12-24-2024 Episodic Malaise and fatigue (9 sources) Asthenia; Translations: [Other malaise] Onset: 06-26-2024 Resolved: 12-27-2024 06-28-2024 Episodic Medical examination/evaluati on (2 sources) Encounter for other preprocedural examination; Translations: [Encounter for other preprocedural examination] Onset: 08-08-2017 Episodic Other aftercare (1 source) Other jboss developer (current) drug therapy; Translations: [Medication management] Onset: 04-19-2024 Episodic Other and unspecified benign neoplasm (20 sources) Benign neoplasm of rectum and anal canal; Translations: [Benign neoplasm of rectum] Onset: 08-23-2011 05-22-2012 Episodic Other connective tissue disease (1 source) Repeated falls; Translations: [Falls frequently] Onset: 06-26-2024 Episodic Other diseases of kidney and ureters (2 sources) Other obstructive and reflux uropathy; Translations: [BPH with obstruction/lower urinary tract symptoms] Onset: 09-25-2024 Episodic Other fractures (1 source) Multiple fractures of ribs, bilateral, sequela; Translations: [Closed fracture of multiple ribs of both sides, sequela] Onset: 06-26-2024 Episodic Other nervous system disorders (2 sources) Other acute postprocedural pain; Translations: [Other acute postprocedural pain] Onset: 08-08-2017 Episodic Other non-epithelial cancer of skin (20 sources) History of malignant neoplasm of skin; Translations: [Personal history of other malignant neoplasm of skin] Onset: 03-31-2006 05-22-2012 Episodic Other non-traumatic joint disorders (2 sources) Pain in left knee; Translations: [Pain in left knee] Onset: 08-08-2017 Episodic Other non-traumatic joint disorders (20 sources) Shoulder joint pain; Translations: [Pain in unspecified shoulder] Onset: 10-21-2011 10-21-2011 Episodic Other non-traumatic joint disorders (20 sources) Pain in unspecified knee; Translations: [Pain in joint, lower leg] Onset: 02-28-2017 02-28-2017 Episodic Other non-traumatic joint disorders (1 source) Pain in right elbow; Translations: [Pain in right elbow] Onset: 06-01-2024 Episodic Other skin disorders (20 sources) Actinic keratosis; Translations: [Actinic keratosis] Onset: 05-17-2008 05-22-2012 Episodic Other skin disorders (20 sources) Inflamed seborrheic keratosis; Translations: [Inflamed seborrheic keratosis] Onset: 09-23-2009 05-22-2012 Episodic Other skin disorders (20 sources) Solar lentigo; Translations: [Other melanin hyperpigmentation] Onset: 09-23-2009 05-22-2012 Episodic Other skin disorders (20 sources) Seborrheic keratosis; Translations: [Other seborrheic keratosis] Onset: 05-17-2008 Resolved: 09-15-2009 09-15-2009 Episodic Pathological fracture (2 sources) Pathological fracture of vertebra due to osteoporosis; Translations: [Age-related osteoporosis with current pathological fracture, vertebra(e), sequela] Onset: 06-26-2024 06-27-2024 Episodic Residual codes; unclassified (20 sources) Family history of malignant neoplasm of gastrointestinal tract; Translations: [Family history of malignant neoplasm of digestive organs] Onset: 05-16-2008 09-15-2009 Episodic Residual codes; unclassified (1 source) Insomnia, unspecified; Translations: [Insomnia, unspecified type] Onset: 04-23-2024 Episodic Unclassified (1 source) Follow-up; Translations: [Follow-up] Onset: 07-07-2017 Unclassified (1 source) Patient encounter status 10-10-2024 Urinary tract infections (17 sources) Acute urinary tract infection; Translations: [Urinary tract infection, site not specified] Onset: 05-27-2024 Resolved: 12-27-2024 08-29-2024 Episodic Results Test Name Value Interpretation Reference Range Facility [facility] 01-03-2025 [facility] Telephone (INTMWS) -- ZACHARY SHORT ([id number]) 1945 M Date Time Provider Department 01/03/25 AILIN PIERSON INTWS During your visit today, we recorded the following information about you: Zaire Wellington, LAY 01/03/2025 8:45 AM Signed Patient calls to request polysomnogram orders be faxed to [facility]. Faxed to [phone] per request. Patient aware to follow up with [facility] scheduling for polysomnogram. Patient also requesting to schedule iron infusions. Spoke with Yvonne in hematology. Orders will be submitted to the pharmacy and then patient will be contacted to schedule. Notified patient of message and patient will await call for scheduling. Zaire Wellington RN Allergies As of Date: 01/03/2025 Noted Allergy Reaction RAMELTEON 05/22/2024 1 - Mental Status Change Date Reviewed: 01/01/2025 Reviewed by: Joseluis Chau LPN - Fully Assessed Reason for Visit: Orders [521] Prescriptions as of 01/03/2025 - finasteride (PROSCAR) 5 mg tablet Take 1 tablet by mouth once daily. - colestipol (COLESTID) 1 gram tablet Take 1 tablet by mouth two times a day. - citalopram (CELEXA) 20 mg tablet Take 1 tablet by mouth once daily. - tamsulosin (FLOMAX) 0.4 mg Take 1 capsule by mouth two times a day. - oxyCODONE-acetaminophen 5-325 mg (PERCOCET) Take 1-2 tablets by mouth every 4 hours as needed (for pain). - azelastine 0.1% nasal spray Use 1 [place] in each nostril two times a day. - lisinopril-hydroCHLOROthia zide (ZESTORETIC) 10-12.5 mg per tablet Take 1 tablet by mouth once daily. - ergocalciferol 50,000 unit capsule (VITAMIN D2, DRISDOL) Take 1 capsule by mouth two times a week. TO BE TAKEN ORALLY DIRECTED. Take 1 tablet by mouth twice weekly [id number], then decrease to 1 tablet weekly. - polyethylene glycol 3350 (MIRALAX) 17 gram/dose powder Take 17 g by mouth once daily. Dissolve dose in 4 - 8 ounces of liquid and take as directed. - aspirin, enteric coated (ASPIRIN, ENTERIC COATED) 81 mg EC tablet Take 81 mg by mouth once daily. Problem List As Of Date 01/03/2025 Noted Resolved Mixed hyperlipidemia [E78.2] 11/09/2005 Unspecified Asthma [J45.909] 11/09/2005 Personal history of other malignant neoplasm of*03/31/2006 Cervical Spondylosis without Myelopathy [M47.81* Family History of Malignant Neoplasm of Gastroi*05/16/2008 Primary Localized Osteoarthrosis, Shoulder Quin*05/16/2008 ACTINIC KERATOSIS (Premalignant AK) [L57.0] 05/17/2008 Other Seborrheic Keratosis [L82.1] 05/17/2008 09/15/2009 ACTINIC DAMAGE///CHR SOLAR SKIN DAMAGE NOS [L57*05/17/2008 09/15/2009 Rosacea [L71.9] 05/17/2008 Primary hypertension [I10] 09/15/2009 Obesity [E66.9] 09/15/2009 Irritated//Inflamed Seborrheic Keratosis [L82.0]09/23/2009 Solar lentigo [L81.4] 09/23/2009 Bladder Neck Obstruction [N32.0] 10/30/2009 Hypertrophy of prostate with urinary obstructio*05/28/2010 Arthritis of shoulder region, left, degenerativ*08/03/2011 Benign neoplasm of rectum and anal canal [D12.8*08/23/2011 Pain in joint, shoulder region [M25.519] 10/21/2011 Chronic knee pain [M25.569, G89.29] 02/28/2017 Preop examination [Z01.818] 11/21/2023 Elevated prostate specific antigen (PSA) [R97.2*11/21/2023 11/29/2023 Obesity, Class I, BMI 30-34.9 [E66.811] 11/21/2023 Prostate cancer (HCC) [C61] 11/29/2023 BPH with obstruction/lower urinary tract sympto*11/28/2024 Hypotension [I95.9] 12/17/2024 Lightheaded [R42] 12/17/2024 Acute on chronic urinary retention [R33.9] 12/24/2024 12/27/2024 Acute urinary tract infection [N39.0] 05/27/2024 Fall [W19.XXXA] 12/24/2024 12/27/2024 GERD (gastroesophageal reflux disease) [K21.9] 08/08/2017 Weakness [R53.1] 12/24/2024 12/27/2024 Hyponatremia [E87.1] 12/24/2024 12/27/2024 Acute UTI (urinary tract infection) [N39.0] 12/24/2024 12/27/2024 Iron deficiency [E61.1] 01/01/2025 Encounter Status:Closed by ZAIRE WELLINGTON on 01/03/25 [facility] Telephone (RADHA) -- ZACHARY SHORT ([id number]) 1945 M Date Time Provider Department 01/03/25 JUAN C PEOPLES During your visit today, we recorded the following information about you: Christopher Broderick 01/03/2025 8:40 AM Signed Iron orders in from Dr. Pierson. Please review and advise. Kelvin Dowd 01/03/2025 12:00 PM Signed LVM for pt to call back and schedule. Christopher Parkinson 01/04/2025 9:04 AM Signed Scheduled with patient Start email sent Allergies As of Date: 01/03/2025 Noted Allergy Reaction BRENDAON 05/22/2024 1 - Mental Status Change Date Reviewed: 01/01/2025 Reviewed by: Joseluis Chau LPN - Fully Assessed Reason for Visit: Orders [681] Prescriptions as of 01/04/2025 - finasteride (PROSCAR) 5 mg tablet Take 1 tablet by mouth once daily. - colestipol (COLESTID) 1 gram tablet Take 1 tablet by mouth two times a day. - citalopram (CELEXA) 20 mg tablet Take 1 tablet by mouth once daily. - tamsulosin (FLOMAX) 0.4 mg Take 1 capsule by mouth two times a day. - oxyCODONE-acetaminophen 5-325 mg (PERCOCET) Take 1-2 tablets by mouth every 4 hours as needed (for pain). - azelastine 0.1% nasal spray Use 1 [place] in each nostril two times a day. - lisinopril-hydroCHLOROthia zide (ZESTORETIC) 10-12.5 mg per tablet Take 1 tablet by mouth once daily. - ergocalciferol 50,000 unit capsule (VITAMIN D2, DRISDOL) Take 1 capsule by mouth two times a week. TO BE TAKEN ORALLY DIRECTED. Take 1 tablet by mouth twice weekly [id number], then decrease to 1 tablet weekly. - polyethylene glycol 3350 (MIRALAX) 17 gram/dose powder Take 17 g by mouth once daily. Dissolve dose in 4 - 8 ounces of liquid and take as directed. - aspirin, enteric coated (ASPIRIN, ENTERIC COATED) 81 mg EC tablet Take 81 mg by mouth once daily. Problem List As Of Date 01/03/2025 Noted Resolved Mixed hyperlipidemia [E78.2] 11/09/2005 Unspecified Asthma [J45.909] 11/09/2005 Personal history of other malignant neoplasm of*03/31/2006 Cervical Spondylosis without Myelopathy [M47.81* Family History of Malignant Neoplasm of Gastroi*05/16/2008 Primary Localized Osteoarthrosis, Shoulder Quin*05/16/2008 ACTINIC KERATOSIS (Premalignant AK) [L57.0] 05/17/2008 Other Seborrheic Keratosis [L82.1] 05/17/2008 09/15/2009 ACTINIC DAMAGE///CHR SOLAR SKIN DAMAGE NOS [L57*05/17/2008 09/15/2009 Rosacea [L71.9] 05/17/2008 Primary hypertension [I10] 09/15/2009 Obesity [E66.9] 09/15/2009 Irritated//Inflamed Seborrheic Keratosis [L82.0]09/23/2009 Solar lentigo [L81.4] 09/23/2009 Bladder Neck Obstruction [N32.0] 10/30/2009 Hypertrophy of prostate with urinary obstructio*05/28/2010 Arthritis of shoulder region, left, degenerativ*08/03/2011 Benign neoplasm of rectum and anal canal [D12.8*08/23/2011 Pain in joint, shoulder region [M25.519] 10/21/2011 Chronic knee pain [M25.569, G89.29] 02/28/2017 Preop examination [Z01.818] 11/21/2023 Elevated prostate specific antigen (PSA) [R97.2*11/21/2023 11/29/2023 Obesity, Class I, BMI 30-34.9 [E66.811] 11/21/2023 Prostate cancer (HCC) [C61] 11/29/2023 BPH with obstruction/lower urinary tract sympto*11/28/2024 Hypotension [I95.9] 12/17/2024 Lightheaded [R42] 12/17/2024 Acute on chronic urinary retention [R33.9] 12/24/2024 12/27/2024 Acute urinary tract infection [N39.0] 05/27/2024 Fall [W19.XXXA] 12/24/2024 12/27/2024 GERD (gastroesophageal reflux disease) [K21.9] 08/08/2017 Weakness [R53.1] 12/24/2024 12/27/2024 Hyponatremia [E87.1] 12/24/2024 12/27/2024 Acute UTI (urinary tract infection) [N39.0] 12/24/2024 12/27/2024 Iron deficiency [E61.1] 01/01/2025 Encounter Status:Closed by CHRISTOPHER BRODERICK on 01/04/25 [facility] 01-01-2025 [facility] Office Visit (INTMWS ) -- ZACHARY SHORT ([id number]) 1945 M Date Time Provider Department 01/01/25 4:00 PM AILIN PIERSON INTMWS During your visit today, we recorded the following information about you: Pulse Respiration Blood pressure Weight 93/minute 18/minute 88/58 108.8 kg Ailin Pierson MD 01/01/2025 4:50 PM Signed We discussed your recent hospitalization and urinary tract infection (UTI): - You were hospitalized from 12/24 to 12/27 for a UTI caused by E. coli. You were treated with IV Rocephin in the hospital and discharged with a prescription for Keflex. Please continue taking Keflex as prescribed for the remaining 2 days to complete the 5-day course. - The E. coli infection is likely related to your prior prostate procedure (PPH). We discussed your anemia: - Your hemoglobin levels are low, and you are iron deficient. I am ordering iron infusions to address this. This may help with your dizziness, lightheadedness, and fatigue. We discussed your sleep apnea: - You have been diagnosed with sleep apnea. I recommend completing a sleep study at the sleep lab in [facility]. This is necessary to determine the best settings for a CPAP machine, which can help improve your sleep and overall health. We discussed your shortness of breath and fatigue: - You reported feeling short of breath and weak, especially with activity. This may be related to your anemia or other underlying conditions. The iron infusions should help improve these symptoms. We discussed your abdominal aortic aneurysm (AAA): - Your recent CT scan showed a bulging aorta (abdominal aortic aneurysm). At this time, it is not severe and does not require intervention. We will continue to monitor this. We discussed your heart rhythm concerns: - You mentioned prior findings of irregular heart rhythms, including surging and blood pooling. These may be contributing to your fluctuating blood pressure. We will continue to monitor this as part of your care. Next steps: - Complete your current course of Keflex for the UTI. - Schedule and complete the sleep study at [facility] to evaluate your sleep apnea and determine the need for a CPAP machine. - Begin iron infusions as ordered to address your anemia. - Monitor your symptoms, including dizziness, shortness of breath, and fatigue. If these worsen or do not improve, please contact our office. Please let us know if you have any questions or concerns. Ailin Pierson MD 01/01/2025 5:10 PM Signed Reason for Visit Follow up HPI Zachary Short is a 79-year-old male, with a history of recurrent UTIs, presenting for follow-up after a recent hospitalization for a UTI. Zachary was admitted to the hospital on 12/24 and discharged on 12/27 for a UTI. He was treated with IV Rocephin, and urine cultures showed E. coli, which was alexandre-sensitive. He was discharged with a 5-day course of Keflex, with 2 days remaining. He reports feeling weak and experiencing dyspnea on exertion, which he attributes to the recent radiation treatment. He also reports dizziness and lightheadedness, which he believes may be related to his anemia. He denies any known heart or lung problems. Zachary also reports a recent fall, which he attributes to dizziness from the infection. He fell in his driveway while trying to move a trash barrel and snowblower. He denies any injuries from the fall. Zachary also reports the hospital personnel told him that he has sleep apnea, as he stopped breathing mutliple times , but has not been using a CPAP machine and has always declined wanting one. He expresses reluctance to undergo a sleep study, but is considering it due to his symptoms. Social History Tobacco Use Smoking status: Never Passive exposure: Never Smokeless tobacco: Never Vaping Use Vaping status: Never Used Substance Use Topics Alcohol use: Yes Comment: socially, 3-4 beers/year Drug use: No Past medical history, appointments, medications, allergies reviewed. Pertinent Lab/Diagnostic Studies are reviewed and discussed today Current Outpatient Medications: cephALEXin (KEFLEX) 500 mg capsule finasteride (PROSCAR) 5 mg tablet colestipol (COLESTID) 1 gram tablet citalopram (CELEXA) 20 mg tablet tamsulosin (FLOMAX) 0.4 mg oxyCODONE-acetaminophen 5-325 mg (PERCOCET) azelastine 0.1% nasal spray lisinopril-hydroCHLOROthia zide (ZESTORETIC) 10-12.5 mg per tablet ergocalciferol 50,000 unit capsule (VITAMIN D2, DRISDOL) polyethylene glycol 3350 (MIRALAX) 17 gram/dose powder aspirin, enteric coated (ASPIRIN, ENTERIC COATED) 81 mg EC tablet Health Maintenance Depression Screening Anxiety Screening DTaP,Tdap,Td Vaccine(1 - Tdap) Shingrix Vaccine(1 of 2) Medicare Annual Wellness Visit RSV Vaccine(1 - 1-dose 75+ series) Advance Directive Discussion@ Review Of Systems Constitutional: (+) weakness Barney (more content not included)... Normal [facility] Basic metabolic 2000 panelon 12-27-2024 Anion gap [Moles/Vol] 18 mmol/L High 8-15 [facility] Comment on above: Order Comment: Speci men Type: BLOOD SPECIMEN Ordering Facility: [facility] Address: [address] [place] [address] Performed By: #### 2 4321-2, #### [facility] CLIA [id number] [address] [place] [address] [place] Calcium [Mass/Vol] 9.1 mg/dL Normal 8.5-10.2 [facility] Comment on above: Order Comment: Speci men Type: BLOOD SPECIMEN Ordering Facility: [facility] Address: [address] [place] [address] Performed By: #### 2 4321-2, #### [facility] CLIA [id number] [address] [place] [address] [place] Chloride [Moles/Vol] 98 mmol/L Normal 98-107 [facility] Comment on above: Order Comment: Speci men Type: BLOOD SPECIMEN Ordering Facility: [facility] Address: [address] [place] [address] Performed By: #### 2 4321-2, #### [facility] CLIA [id number] [address] [place] [address] [place] CO2 [Moles/Vol] 18 mmol/L Low 22-30 [facility] Comment on above: Order Comment: Speci men Type: BLOOD SPECIMEN Ordering Facility: [facility] Address: [address] [place] [address] Performed By: #### 2 4321-2, #### [facility] CLIA [id number] [address] [place] [address] [place] Creatinine [Mass/Vol] 1.19 mg/dL Normal 0.73-1.22 [facility] Comment on above: Order Comment: Speci men Type: BLOOD SPECIMEN Ordering Facility: [facility] Address: [address] [place] [address] Performed By: #### 2 4321-2, #### [facility] CLIA [id number] [address] [place] [address] [place] eGFRcr SerPlBld CKD-EPI 2020 61 mL/min/1.73m??? Normal >=60 [facility] Comment on above: Order Comment: Radha charles Type: BLOOD SPECIMEN Ordering Facility: [facility] Address: [address] [place] [address] Result Comment: Ekaterina mated Glomerular Filtration Rate (eGFR) is calculated using the 2020 CKD-EPI creatinine equation. This equation utilizes serum creatinine, sex, and age as parameters. The creatinine assay has traceable calibration to isotope dilution-mass spectrometry. Refer to KDIGO guidelines for clinical interpretation. In patients with unstable renal function, e.g. those with acute kidney injury, the eGFR may not accurately reflect actual GFR. Performed By: #### 2 432-2, #### [facility] CLIA [id number] [address] [place] [address] [place] Glucose [Mass/Vol] 96 mg/dL Normal 74-99 [facility] Comment on above: Order Comment: Radha charles Type: BLOOD SPECIMEN Ordering Facility: [facility] Address: [address] [place] [address] Result Comment: The [place] [employer] (ADA) provides guidance for cutoff values for fasting glucose and random glucose. The ADA defines fasting as no caloric intake for at least 8 hours. Fasting plasma glucose results between 100 to 125 mg/dL indicate increased risk for diabetes (prediabetes). Fasting plasma glucose results greater than or equal to 126 mg/dL meet the criteria for diagnosis of diabetes. In the absence of unequivocal hyperglycemia, results should be confirmed by repeat testing. In a patient with classic symptoms of hyperglycemia or hyperglycemic crisis, random plasma glucose results greater than or equal to 200 mg/dL meet the criteria for diagnosis of diabetes. Reference: Standards of Medical Care in Diabetes 2016, [place] [employer]. Diabetes Care. 2016.39(Suppl 1). Performed By: #### 2 4321-2, #### [facility] CLIA [id number] [address] [place] [address] [place] Potassium [Moles/Vol] 4.6 mmol/L Normal 3.7-5.1 [facility] Comment on above: Order Comment: Speci men Type: BLOOD SPECIMEN Ordering Facility: [facility] Address: [address] [place] [address] Performed By: #### 2 4321-2, #### [facility] CLIA [id number] [address] STATES OF [facility] Sodium [Moles/Vol] 134 mmol/L Low 136-144 [facility] Comment on above: Order Comment: Speci men Type: BLOOD SPECIMEN Ordering Facility: [facility] Address: [address] [place] [address] Performed By: #### 2 4321-2, #### [facility] CLIA [id number] [address] STATES [facility] Urea nitrogen [Mass/Vol] 21 mg/dL Normal 9-24 [facility] Comment on above: Order Comment: Speci men Type: BLOOD SPECIMEN Ordering Facility: [facility] Address: [address] [place] [address] Performed By: #### 2 4321-2, #### [facility] CLIA [id number] [address] [place] CBC W Auto Differential pane l (Bld)on 12-27-2024 Basophils (Bld) [#/Vol] 0.08 10*3/uL Normal <0.11 [facility] Comment on above: Order Comment: Speci men Type: BLOOD SPECIMENOrdering Facility: [facility] Address: [address] [place] [address] Performed By: #### 5 7021-8 ####[facility] [id number] [address] Basophils/100 WBC (Bld) 1.1 % Normal [facility] Comment on above: Order Comment: Speci men Type: BLOOD SPECIMENOrdering Facility: [facility] Address: [address] [place] [address] Performed By: #### 5 7021-8 ####[facility] [id number] [address] Differential cell count method Nom (Bld) Auto Normal [facility] Comment on above: Order Comment: Speci men Type: BLOOD SPECIMENOrdering Facility: [facility] Address: [address] [place] [address] Performed By: #### 5 7021-8 ####[facility] [id number] [place] [address] [place] Eosinophils (Bld) [#/Vol] 0.41 10*3/uL Normal <0.46 [facility] Comment on above: Order Comment: Speci men Type: BLOOD SPECIMENOrdering Facility: [facility] Address: [address] [place] [address] Performed By: #### 5 7021-8 ####[facility] [id number] [address] Eosinophils/100 WBC (Bld) 5.8 % Normal [facility] Comment on above: Order Comment: Speci men Type: BLOOD SPECIMENOrdering Facility: [facility] Address: [address] [place] [address] Performed By: #### 5 7021-8 ####[facility] [id number] [address] Erythrocyte distribution width (RBC) [Ratio] 12.2 % Normal 11.5-15.0 [facility] Comment on above: Order Comment: Speci men Type: BLOOD SPECIMENOrdering Facility: [facility] Address: [address] [place] [address] Performed By: #### 5 7021-8 ####[facility] [id number] [address] [place] Hematocrit (Bld) [Volume fraction] 29.4 % Low 39.0-51.0 [facility] Comment on above: Order Comment: Speci men Type: BLOOD SPECIMENOrdering Facility: [facility] Address: [address] [place] [address] Performed By: #### 5 7021-8 ####[facility] [id number] [place] [address] [place] Hemoglobin (Bld) [Mass/Vol] 9.4 g/dL Low 13.0-17.0 [facility] Comment on above: Order Comment: Speci men Type: BLOOD SPECIMENOrdering Facility: [facility] Address: [address] [place] [address] Performed By: #### 5 7021-8 ####[facility]IA [id number] [place] [address] [place] Immature granulocytes (Bld) [#/Vol] 0.07 10*3/uL Normal <0.10 [facility] Comment on above: Order Comment: Speci men Type: BLOOD SPECIMENOrdering Facility: [facility] Address: [address] [place] [address] Performed By: #### 5 7021-8 ####[facility] [id number] [address] [place] Immature granulocytes/100 WBC (Bld) 1.0 % Normal [facility] Comment on above: Order Comment: Speci men Type: BLOOD SPECIMENOrdering Facility: [facility] Address: [address] [place] [address] Performed By: #### 5 7021-8 ####[facility] [id number] [place] [address] [place] Lymphocytes (Bld) [#/Vol] 0.71 10*3/uL Low 1.00-4.00 [facility] Comment on above: Order Comment: Speci men Type: BLOOD SPECIMENOrdering Facility: [facility] Address: [address] [place] [address] Performed By: #### 5 7021-8 ####[facility] [id number] [address] [place] Lymphocytes/100 WBC (Bld) 10.1 % Normal [facility] Comment on above: Order Comment: Speci men Type: BLOOD SPECIMENOrdering Facility: [facility] Address: [address] [place] [address] Performed By: #### 5 7021-8 ####[facility] [id number] [address] MCH (RBC) [Entitic mass] 36.3 pg High 26.0-34.0 [facility] Comment on above: Order Comment: Speci men Type: BLOOD SPECIMENOrdering Facility: [facility] Address: [address] [place] [address] Performed By: #### 5 7021-8 ####[facility] [id number] [address] [place] MCHC (RBC) [Mass/Vol] 32.0 g/dL Normal 30.5-36.0 [facility] Comment on above: Order Comment: Speci men Type: BLOOD SPECIMENOrdering Facility: [facility] Address: [address] [place] [address] Performed By: #### 5 7021-8 ####[facility] [id number] [address] MCV (RBC) [Entitic vol] 113.5 fL High 80.0-100.0 [facility] Comment on above: Order Comment: Speci men Type: BLOOD SPECIMENOrdering Facility: [facility] Address: [address] [place] [address] Performed By: #### 5 7021-8 ####[facility] [id number] [address] Monocytes (Bld) [#/Vol] 0.81 10*3/uL Normal <0.87 [facility] Comment on above: Order Comment: Speci men Type: BLOOD SPECIMENOrdering Facility: [facility] Address: [address] [place] [address] Performed By: #### 5 7021-8 ####[facility] [id number] [address] Monocytes/100 WBC (Bld) 11.6 % Normal [facility] Comment on above: Order Comment: Speci men Type: BLOOD SPECIMENOrdering Facility: [facility] Address: [address] [place] [address] Performed By: #### 5 7021-8 ####[facility]ORYCLIA [id number] [place] [address] [place] Neutrophils (Bld) [#/Vol] 4.93 10*3/uL Normal 1.45-7.50 [facility] Comment on above: Order Comment: Speci men Type: BLOOD SPECIMENOrdering Facility: [facility] Address: [address] [place] [address] Performed By: #### 5 7021-8 ####[facility] [id number] [place] [address] [place] Neutrophils/100 WBC (Bld) 70.4 % Normal [facility] Comment on above: Order Comment: Speci men Type: BLOOD SPECIMENOrdering Facility: [facility] Address: [address] [place] [address] Performed By: #### 5 7021-8 ####[facility]ORYCLIA [id number] [place] [address] [place] Nucleated RBC (Bld) [#/Vol] 10*3/uL Normal <0.01 [facility] Comment on above: Order Comment: Speci men Type: BLOOD SPECIMENOrdering Facility: [facility] Address: [address] [place] [address] Performed By: #### 5 7021-8 ####[facility]ORYCLIA [id number] [address] [place] Nucleated RBC/100 WBC (Bld) [Ratio] 0.0 /100 WBC Normal [facility] Comment on above: Order Comment: Speci men Type: BLOOD SPECIMENOrdering Facility: [facility] Address: [address] [place] [address] Performed By: #### 5 7021-8 ####[facility]ORYCLIA [id number] [place] [address] [place] Platelet mean volume (Bld) [Entitic vol] 9.2 fL Normal 9.0-12.7 [facility] Comment on above: Order Comment: Speci men Type: BLOOD SPECIMENOrdering Facility: [facility] Address: [address] [place] [address] Performed By: #### 5 7021-8 ####[facility]ORYCLIA [id number] [place] [address] [place] [facility] [place] Platelets (Bld) [#/Vol] 241 10*3/uL Normal 150-400 [facility] Comment on above: Order Comment: Speci men Type: BLOOD SPECIMENOrdering Facility: [facility] Address: [address] [place] [address] Performed By: #### 5 7021-8 ####[facility] [id number] [place] [address] [place] RBC (Bld) [#/Vol] 2.59 10*6/uL Low 4.20-6.00 [facility] Comment on above: Order Comment: Speci men Type: BLOOD SPECIMENOrdering Facility: [facility] Address: [address] [place] [address] Performed By: #### 5 7021-8 ####[facility] [id number] [address] [place] WBC (Bld) [#/Vol] 7.12 10*3/uL Normal 3.70-11.00 [facility] Comment on above: Order Comment: Speci men Type: BLOOD SPECIMENOrdering Facility: [facility] Address: [address] [place] [address] Performed By: #### 5 7021-8 ####[facility]ORY[facility]IA [id number] [place] [id number] [facility] [place] CNCOon 12-27-2024 CNCO Letter Text Normal [facility] CNDSon 12-27-2024 CNDS HNO ID: [id number] Author: ALLISON SUN MD Service: Hospital Medicine Author Type: Physician Type: Discharge Summary Filed: 12/27/2024 14:35 Note Text: DISCHARGE SUMMARY PATIENT NAME: Zachary Short ADMISSION DATE: 12/24/2024 DISCHARGE DATE: 12/27/2024 ATTENDING PHYSICIAN: Allison Sun MD Code Status: Full Code PCP: Ailin Pierson MD Highest Readmission Risk Score: 22 The 30 day readmissions risk score is derived from an internally validated risk model which evaluates patient level characteristics, utilization history, medication orders and lab results up until the day of discharge. Patients with a score of 39 or above are considered highest risk for readmission. Specific patient level drivers will be listed at the bottom of the summary. 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 coli pansensitive, discussed with ID who was consulted on admission recommended Keflex for 5 more days, patient denied having today any abdominal pain nausea vomiting fever chills chest pain or shortness of breath, he will be discharged home in stable condition, patient will be discharged in stable condition, patient was advised to follow-up with a primary care physician and other specialist as indicated, patient was advised to come back to the hospital if experiencing any more concerns or worsening symptoms. Assesment: Acute E. coli UTI Generalized weakness debility and fall secondary to UTI BPH, prostate cancer status post radiation and TURP Hypertension Hyperlipidemia GERD Anemia Plan *Patient initiated emergency room he was started on IV Zosyn and vancomycin, before microbiology, ID was consulted. I will add Pyridium *DC Mahoney catheter, continue BPH medications *Blood work was reviewed HANDH low but stable *Continue chronic home medications monitor vital signs *Check CBC BMP magnesium for tomorrow *Constipation the patient and his [id number]-[id number]-kea at bedside Plan 12/10/2019 *Continue IV antibiotics Zosyn, vancomycin was discontinued, continue Pyridium patient benefited from diet, patient urine culture showed E. coli pending sensitivity, blood culture no growth at 1 day ID note was reviewed from yesterday. *Blood work was reviewed HANDH low but stable *Continue chronic home medications monitor vital signs *Check CBC BMP magnesium for tomorrow DATA: LABORATORY TESTS: CBC: Recent Labs 12/27/24 0501 12/26/2444512/25/2443612/24/241918 WBC 7.12 7.22 7.85 8.56 HB 9.4* 9.3* 9.0* 9.7* PLT 241 185 201 202 MCV 113.5* 106.3* 105.6* 105.1* NEUTP 70.4 70.4 -- 76.9 ABSNEUT 4.93 5.09 -- 6.58 LYMPHP 10.1 11.1 -- 9.2 EODINP 5.8 6.0 -- 2.0 CHEM: Recent Labs 12/27/24 05012/26/2444612/25/24436 NA 134* 137 138 K 4.6 4.4 4.0 CA 9.1 9.1 8.8 MG 2.1 2.2 1.8 ANION 18* 10 12 CHLOR 98 100 101 CO2 18* 27 25 GLUC 96 98 94 BUN 21 18 16 CREAT 1.19 1.29* 0.94 HEPATIC: Recent Labs 12/24/241918 ALT 14 AST 19 TBILI 0.2 ALKPHOS 87 ALB 3.9 TPROT 7.5 URINALYSIS: Recent Labs 12/24/241912 SPGR 1.025 UBACTERIA Many* LEUKEST 1+* UWBC >25 /HPF* URBC 6-10 /HPF* UHB 2+* UPROT 3+* UGLUC Negative UKET Negative COAG: No results for input(s): APTT, INR in the last 168 hours. CARDIAC: No results for input(s): CKMB, CKMBP, TROPT, PBNP in the last 168 hours. OPERATIONS/PROCEDURE DURING THIS HOSPITALIZATION: * No surgery found * CONSULTS DURING HOSPITALIZATION: Treatment Team: Attending Provider: Allison Sun MD Consulting: Jimbo Nolan MD Primary Service: 1, [facility] PATIENT CONDITION AT DISCHARGE: Stable DISCHARGE DISPOSITION: Home with Home Health Vital Signs: BP 115/63 Pulse 73 Temp 37.2 ?C (98.9 ?F) (Oral) Resp 17 Ht 180.3 cm (5' 11) Wt 104.4 kg (230 lb 2.6 oz) SpO2 96% BMI 32.10 kg/m? Body mass index is 32.1 kg/m?. General: Patient is alert and is in no acute respiratory distress. Lungs: Clear to auscultation, no wheezing, rales, or rhonchi. Cardiac: S1-S2 within normal limits Abdomen: Soft, nontender, nondistended. Extremities: No cyanosis Neurologic: Cranial nerves from II-XII intact grossly. Ps (more content not included)... Normal [facility] CONSULT PROGon 12-27-2024 CONSULT PROG HNO ID: [id number] Author: JIMBO NOLAN MD Service: Infectious Disease Author Type: Physician Type: Consult Progress Note Filed: 12/28/2024 09:43 Note Text: INFECTIOUS DISEASE PROGRESS NOTE Patient Name: Zachary Short INTERVAL HISTORY: No fevers. Feels better. Voiding trial Patient Active Hospital Problem List: Acute urinary tract infection Date Noted: 05/27/2024 Mixed hyperlipidemia Date Noted: 11/09/2005 Primary hypertension Date Noted: 09/15/2009 Prostate cancer (HCC) Date Noted: 11/29/2023 BPH with obstruction/lower urinary tract symptoms Date Noted: 11/28/2024 GERD (gastroesophageal reflux disease) Date Noted: 08/08/2017 ASSESSMENT: Acute urinary tract infection Mixed hyperlipidemia Primary hypertension Prostate cancer BPH with obstruction/lower urinary tract symptoms Acute on chronic urinary retention Fall GERD (gastroesophageal reflux disease) Weakness Hyponatremia PLAN: Discontinue Zosyn Stopped vanco Abx started before UCx collected but still positive Added Pyridium Discussed w DR SUN. DISCHARGE PLANNING ON PO KEFLEX X 5 DAYS MORE BCx x 2 Voiding trial Shoulder XR Check PSA Renal US DC Mahoney catheter, continue BPH medications I have reviewed and interpreted all lab test imaging studies and documentations from other healthcare providers I am monitoring antibiotics for side effects and toxicity MEDICATIONS: reviewed. PHYSICAL EXAM: Vital signs: BP 115/63 Pulse 73 Temp 37.2 ?C (98.9 ?F) (Oral) Resp 17 Ht 180.3 cm (5' 11) Wt 104.4 kg (230 lb 2.6 oz) SpO2 96% BMI 32.10 kg/m? Temp (24hrs), Av.6 ?C (97.8 ?F), Min:36.5 ?C (97.7 ?F), Max:36.6 ?C (97.8 ?F) General: alert, oriented, NAD Lungs: bilaterally clear to auscultation Heart: regular rate and rhythm Abdomen: soft, non tender, non distended, BS+ Extremities: no edema No rashes No joint inflammation Neck supple Lines ok No CVAT Labs: Recent Labs 12/27/24 0501 12/26/24 0447 12/26/24 0446 WBC 7.12 -- 7.22 HB 9.4* -- 9.3* PLT 241 -- 185 NA 134* 137 -- K 4.6 4.4 -- CO2 18* 27 -- BUN 21 18 -- CREAT 1.19 1.29* -- Microbiology data: reviewed Imaging data: reviewed Jimbo Nolan MD Pager: Date of service: 12/27/2024 Time of service: 11:22 AM This note is not final until Authenticated by responsible provider. Normal [facility] Magnesium SerPl-mCncon 12-27 Magnesium [Mass/Vol] 2.1 mg/dL Normal 1.7-2.3 [facility] Comment on above: Order Comment: Speci men Type: BLOOD SPECIMEN [facility] Address: [address] [place] [address] Performed By: #### 2 4321-2, 44328-1 #### [facility] CLIA [id number] [address] [place] [address] [place] [facility] THERAPY NTon 12-27-2024 THERAPY NT HNO ID: [id number] Author: BALAJI GUERRA PT Service: Physical Therapy Author Type: Physical Therapist Type: Therapy (PT/OT/Speech/Resp) Filed: 12/27/2024 14:39 Note Text: -- Summary: PT Eval -- Physical Therapy Evaluation Summary SERVICE DATE: 12/27/2024 SERVICE TIME: 1341 to 1407 ROOM: [place] [address] PT 6 Clicks Score: 21 DISCHARGE RECOMMENDATIONS Home PT Recommended Discharge Equipment: No equipment needs anticipated ASSESSMENT Response to Therapy Interventions: Good Participation in Activities, On-Track to Achieve Discharge Goals, Requires Additional Time to Complete Activities Pt functioning close to baseline however minor balance and strength deficits are noted. Pt is AANDO x 3, follows cues appropriately, participates without adverse effects. Pt owuld benefit from additional therapy for high level balance and strength training to reduce risk of falls. PRECAUTIONS Lines/Tubes/Drains CURRENT HOSPITAL COURSE Patient presents with hematuria and weakness, recent fall, admitted for UTI Relevant Past Medical History: cervical spondylosis, benign prostatic hyperplasia with urinary obstruction, HTN, prostate CA, asthma, falls, HLD, L shoulder hemiarthroplasty with revision, anterior cervical discectomy allograft fusion on C4-6, anal and rectal CA HOME LIVING Patient Lives With: Self/Alone Assistance Available: PRN (from neighbors, sons live in [facility] [place]) Entry To Home: No Stairs Number Of Stairs To Bed/Bath: 0 Tub/Shower Type: Tub shower with shower chair and grab bars Laundry: Basement, pt throws down the stairs and sons complete Equipment Owned: Cane, Commode- Raised, Commode- Bedside, Grab Bars- Shower, Grab Bars- Toilet, Shower Chair, Walker- Wheeled, Extended Tub Bench, Hand Held Shower PRIOR FUNCTIONAL LEVEL Within Functional Limits, History of Falls Patient reports independence with ADLs/IADLs but sons assist with laundry, ambulates PRN with a walker in the home, no use of AD in the community, report 3 falls in the past 6 months, enjoys going to the [employer] and yard work, recently sold his yacht, sleeps on a flat bed, +drives, manages own meds SUBJECTIVE Pt agreeable to PT, ok per nursing to treat. THERAPY DIAGNOSIS General symptoms and signs-other TREATMENT INTERVENTIONS $ Evaluation-Low (97453) Billed Units: 1 unit Gait Training (66828) Treatment Minutes: 9 $ Gait Training (58395) Billed Units: 1 unit Evaluation, Gait Training (83333) Timed Code Treatment (minutes): 9 Skilled Treatment Time (minutes): 24 TRAINING AND EDUCATION PROVIDED Advanced Balance Activities, Benefits of In-Hospital Mobility, Discharge Planning, Disease Specific Education, Expected Functional Level, Falls Prevention, Gait Pattern, Reduction of Deviations, Home Safety, Role of Physical Therapy, Standing Balance, Transfers, Treatment Protocol, Assistive Device Use THERAPEUTIC SKILLS USED Cues for Sequencing/Proper Technique for Activity, Cuing Tactile, Cuing Verbal, Cuing Visual, Physical Assist, Postural Alignment Correction FUNCTIONAL STATUS Bed Mobility Supine To Sit: Stand By Assistance, Additional Information HOB elevated Sit to Supine: Additional Information Scooting: Stand By Assistance Transfers Sit To Stand: Stand By Assistance, Additional Information LOB back to bed trial 1 Stand To Sit: Stand By Assistance Bed to Chair Gait Stand By Assistance, Additional Information, Contact Guard Assistance step through pattern, initial CGA with cues for safety navigating narrow spaces, progression to SBA without device. Discussed benefits of increased utilization of cane at home until back to baseline Gait Device: None, IV Pole General Deviations/Observations: Step length decreased Gait Distance (feet): 1 x 100', 2 x 8' Stairs Additional Information N/A RANGE OF MOTION WFL STRENGTH BALANCE Static Sitting Balance: Good Dynamic Sitting Balance: Good Static Standing Balance: Good Dynamic Standing Balance: Good GOALS Patient will demonstrate progress with functional mobility to allow safe discharge to home with available support and/or physical assistance., Patient will demonstrate progress to optimize functional mobility, maximize activity tolerance and endurance to maximize function upon discharge. Transfer Supine to/from Sit with: Stand By Assistance (HOB flat) Transfer Sit to/from Stand with: Stand By Assistance Ambulate with: Stand By Assistance Distance: 250 Device: (LRAD) Rehab Potential: Good Progress Toward Goals: Progressing as expected PLAN PT Frequency: 3 Times Per Week Treatment Interventions: Balance Training, Strengthening Plan for Next Visit: Continue per POC SIGNATURE: Balaji Guerra, CHASIDY PATIENT NAME: Zachary Short DATE: December 27, (more content not included)... [facility] THERAPY NT HNO ID: [id number] Author: RICK MCFADDEN, OT/L Service: ? Author Type: Occupational Therapist Type: Therapy (PT/OT/Speech/Resp) Filed: 12/27/2024 10:20 Note Text: -- Summary: OT Evaluation -- Occupational Therapy Evaluation Summary SERVICE DATE: 12/27/2024 SERVICE TIME: 0947 to 1012 ROOM: [place] [address] OT 6 Clicks Score: 21 DISCHARGE RECOMMENDATIONS Home OT Anticipated Discharge Needs: Supervision at Home, Physical Assist at Home Physical Assist at Home for: (PRN assist for IADLs) Supervision at Home due to: Decreased safety awareness Recommended Discharge Equipment: No equipment needs anticipated ASSESSMENT Response to Therapy Interventions: Good Participation in Activities, On-Track to Achieve Discharge Goals Patient is functioning below baseline with ADLs/IADLs, follows commands appropriately but requires cueing to maintain attention to task, reports no questions/concerns for d/c home PRECAUTIONS Bed/Chair Alarm, Fall Risk CURRENT HOSPITAL COURSE Patient presents with hematuria and weakness, recent fall, admitted for UTI Relevant Past Medical History: cervical spondylosis, benign prostatic hyperplasia with urinary obstruction, HTN, prostate CA, asthma, falls, HLD, L shoulder hemiarthroplasty with revision, anterior cervical discectomy allograft fusion on C4-6, anal and rectal CA HOME LIVING Patient Lives With: Self/Alone Assistance Available: PRN (from neighbors, sons live in [facility] [place]) Entry To Home: No Stairs Number Of Stairs To Bed/Bath: 0 Tub/Shower Type: Tub shower with shower chair and grab bars Laundry: Basement, pt throws down the stairs and sons complete Equipment Owned: Cane, Commode- Raised, Commode- Bedside, Grab Bars- Shower, Grab Bars- Toilet, Shower Chair, Walker- Wheeled, Extended Tub Bench PRIOR FUNCTIONAL LEVEL Within Functional Limits, History of Falls Patient reports independence with ADLs/IADLs but sons assist with laundry, ambulates PRN with a walker in the home, no use of AD in the community, report 3 falls in the past 6 months, enjoys going to the [employer] and yard work, recently sold his yacht, sleeps on a flat bed, +drives, manages own meds Baseline Cognition: Oriented to self, Oriented to place, Oriented to time, Oriented to situation SUBJECTIVE Patient pleasant and agreeable to this session, RN cleared to work with COGNITION Orientation Deficits: (AOx4) Responsiveness: Alert, Awake Follows Commands: 3-step Commands Attention Deficits: Distractible, Redirected with Cues THERAPY DIAGNOSIS Decreased activities of daily living (ADL), Reduced mobility-other, Muscle Weakness (generalized) TREATMENT INTERVENTIONS Evaluation, Self Fci Management (49378) Timed Code Treatment (minutes): 10 Skilled Treatment Time (minutes): 25 TRAINING AND EDUCATION PROVIDED Bed Mobility, Activity Adaptation/Compensatory Strategies, Benefits of In-Hospital Mobility, Cognitive Skills, Command Following, Discharge Planning, Expected Functional Level, Functional Mobility Involving ADLs, Insight into Deficits, Lower Extremity Dressing, Memory/Attention, Orientation, Positioning, Role of Occupational Therapy, Safety/Judgment, Sitting Balance to Improve [place] with ADLs/Self-Care, Standing Balance to Improve [place] with ADLs/Self-Care, Toileting , Transfer - Sit to Stand, Transfer - Toilet/Commode THERAPEUTIC SKILLS USED Activity Dosing, Cues for Sequencing/Proper Technique for Activity, Cuing Visual, Cuing Verbal, Cuing Tactile, Facilitation of Joint Range of Motion, Movement Facilitation, Muscle Activation Facilitation, Physical Assist, Task Analysis Learning, Teach-Back for Education, Therapeutic Use of Self FUNCTIONAL STATUS Activities of Daily Living Assist Level Additional Information Feeding Independent Grooming Contact Guard Assistance, Additional Information standing at the sink Bathing Upper Body Stand By Assistance Bathing Lower Body Contact Guard Assistance Dressing Upper Body Stand By Assistance Dressing Lower Body Contact Guard Assistance Toileting Stand By Assistance Mobility Assist Level Additional Information Bed Mobility Supine To Sit: Stand By Assistance Sit To Supine: Stand By Assistance Sit to Stand Contact Guard Assistance Stand to Sit Contact Guard Assistance Bed to Chair Toilet/Commode Contact Guard Assistance Shower Functional Mobility Contact Guard Assistance Functional Mobility Device: None GOALS Patient will demonstrate progress with self-care, cognitive and/or coping needs identified to allow safe discharge to home with available support and/or physical assistance. Rehab Potential: Good Good Rehab Potential Due To: Current objective clinical presentation, Good support system/ coping skills, Good (more content not included)... Normal [facility] Basic metabolic 2000 panelon 12-26-2024 Anion gap [Moles/Vol] 10 mmol/L Normal 8-15 [facility] Comment on above: Order Comment: Radha charles Type: BLOOD SPECIMEN Ordering Facility: [facility] Address: [address] [place] [address] Performed By: #### 2 4321-2, #### [facility] CLIA [id number] [address] [place] [address] [place] Calcium [Mass/Vol] 9.1 mg/dL Normal 8.5-10.2 [facility] Comment on above: Order Comment: Radha charles Type: BLOOD SPECIMEN Ordering Facility: [facility] Address: [address] [place] [address] Performed By: #### 2 2, #### [facility] CLIA [id number] [address] [place] [address] [place] Chloride [Moles/Vol] 100 mmol/L Normal 98-107 [facility] Comment on above: Order Comment: Radha charles Type: BLOOD SPECIMEN Ordering Facility: [facility] Address: [address] [place] [address] Performed By: #### 2 2, #### [facility] CLIA [id number] [address] [place] [address] [place] CO2 [Moles/Vol] 27 mmol/L Normal 22-30 [facility] Comment on above: Order Comment: Radha charles Type: BLOOD SPECIMEN Ordering Facility: [facility] Address: [address] [place] [address] Performed By: #### 2 2, #### [facility] CLIA [id number] [address] [place] [address] [place] Creatinine [Mass/Vol] 1.29 mg/dL High 0.73-1.22 [facility] Comment on above: Order Comment: Radha charles Type: BLOOD SPECIMEN Ordering Facility: [facility] Address: [address] [place] [address] Performed By: #### 2 4321-2, #### [facility] CLIA [id number] [address] [place] [address] [place] eGFRcr SerPlBld CKD-EPI 2020 56 mL/min/1.73m??? Low >=60 [facility] Comment on above: Order Comment: Radha charles Type: BLOOD SPECIMEN Ordering Facility: [facility] Address: [address] [place] [address] Result Comment: Ekaterina mated Glomerular Filtration Rate (eGFR) is calculated using the 2020 CKD-EPI creatinine equation. This equation utilizes serum creatinine, sex, and age as parameters. The creatinine assay has traceable calibration to isotope dilution-mass spectrometry. Refer to KDIGO guidelines for clinical interpretation. In patients with unstable renal function, e.g. those with acute kidney injury, the eGFR may not accurately reflect actual GFR. Performed By: #### 2 4321-2, 85248-4 #### [facility] CLIA [id number] [address] [place] [address] [place] Glucose [Mass/Vol] 98 mg/dL Normal 74-99 [facility] Comment on above: Order Comment: Radha charles Type: BLOOD SPECIMEN Ordering Facility: [facility] Address: [address] [place] [address] Result Comment: The [place] [employer] (ADA) provides guidance for cutoff values for fasting glucose and random glucose. The ADA defines fasting as no caloric intake for at least 8 hours. Fasting plasma glucose results between 100 to 125 mg/dL indicate increased risk for diabetes (prediabetes). Fasting plasma glucose results greater than or equal to 126 mg/dL meet the criteria for diagnosis of diabetes. In the absence of unequivocal hyperglycemia, results should be confirmed by repeat testing. In a patient with classic symptoms of hyperglycemia or hyperglycemic crisis, random plasma glucose results greater than or equal to 200 mg/dL meet the criteria for diagnosis of diabetes. Reference: Standards of Medical Care in Diabetes 2016, [place] [employer]. Diabetes Care. 2016.39(Suppl 1). Performed By: #### 2 4321-2, #### [facility] CLIA [id number] [address] [place] [address] [place] Potassium [Moles/Vol] 4.4 mmol/L Normal 3.7-5.1 [facility] Comment on above: Order Comment: Speci men Type: BLOOD SPECIMEN Ordering Facility: [facility] Address: [address] [place] [address] Performed By: #### 2 4321-2, #### [facility] CLIA [id number] [address] [place] [address] [place] Sodium [Moles/Vol] 137 mmol/L Normal 136-144 [facility] Comment on above: Order Comment: Speci men Type: BLOOD SPECIMEN Ordering Facility: [facility] Address: [address] [place] [address] Performed By: #### 2 432-2, #### [facility] CLIA [id number] [address] [place] [address] [place] Urea nitrogen [Mass/Vol] 18 mg/dL Normal 9-24 [facility] Comment on above: Order Comment: Speci men Type: BLOOD SPECIMEN Ordering Facility: [facility] Address: [address] [place] [address] Performed By: #### 2 432-2, #### [facility] CLIA [id number] [address] [place] [address] [place] CBC W Auto Differential pane l (Bld)on 12-26-2024 Basophils (Bld) [#/Vol] 0.06 10*3/uL Normal <0.11 [facility] Comment on above: Order Comment: Speci men Type: BLOOD SPECIMENOrdering Facility: [facility] Address: [address] [place] [address] Performed By: #### 5 7021-8 ####[facility] [id number] [address] [place] Basophils/100 WBC (Bld) 0.8 % Normal [facility] Comment on above: Order Comment: Speci men Type: BLOOD SPECIMENOrdering Facility: [facility] Address: [address] [place] [address] Performed By: #### 5 7021-8 ####[facility] [id number] [address] [place] Differential cell count method Nom (Bld) Auto Normal [facility] Comment on above: Order Comment: Speci men Type: BLOOD SPECIMENOrdering Facility: [facility] Address: [address] [place] [address] Performed By: #### 5 7021-8 ####[facility] [id number] [place] [address] [place] Eosinophils (Bld) [#/Vol] 0.43 10*3/uL Normal <0.46 [facility] Comment on above: Order Comment: Speci men Type: BLOOD SPECIMENOrdering Facility: [facility] Address: [address] [place] [address] Performed By: #### 5 7021-8 ####[facility] [id number] [address] [place] Eosinophils/100 WBC (Bld) 6.0 % Normal [facility] Comment on above: Order Comment: Speci men Type: BLOOD SPECIMENOrdering Facility: [facility] Address: [address] [place] [address] Performed By: #### 5 7021-8 ####[facility] [id number] [address] [place] Erythrocyte distribution width (RBC) [Ratio] 12.3 % Normal 11.5-15.0 [facility] Comment on above: Order Comment: Speci men Type: BLOOD SPECIMENOrdering Facility: [facility] Address: [address] [place] [address] Performed By: #### 5 7021-8 ####[facility] [id number] [address] [place] Hematocrit (Bld) [Volume fraction] 26.9 % Low 39.0-51.0 [facility] Comment on above: Order Comment: Speci men Type: BLOOD SPECIMENOrdering Facility: [facility] Address: [address] [place] [address] Performed By: #### 5 7021-8 ####[facility] [id number] [place] [address] [place] Hemoglobin (Bld) [Mass/Vol] 9.3 g/dL Low 13.0-17.0 [facility] Comment on above: Order Comment: Speci men Type: BLOOD SPECIMENOrdering Facility: [facility] Address: [address] [place] [address] Performed By: #### 5 7021-8 ####[facility] [id number] [place] [address] [place] Immature granulocytes (Bld) [#/Vol] 0.07 10*3/uL Normal <0.10 [facility] Comment on above: Order Comment: Speci men Type: BLOOD SPECIMENOrdering Facility: [facility] Address: [address] [place] [address] Performed By: #### 5 7021-8 ####[facility] [id number] [place] [address] [place] Immature granulocytes/100 WBC (Bld) 1.0 % Normal [facility] Comment on above: Order Comment: Speci men Type: BLOOD SPECIMENOrdering Facility: [facility] Address: [address] [place] [address] Performed By: #### 5 7021-8 ####[facility] [id number] [place] [address] [place] Lymphocytes (Bld) [#/Vol] 0.80 10*3/uL Low 1.00-4.00 [facility] Comment on above: Order Comment: Speci men Type: BLOOD SPECIMENOrdering Facility: [facility] Address: [address] [place] [address] Performed By: #### 5 7021-8 ####[facility] [id number] [place] [address] [place] Lymphocytes/100 WBC (Bld) 11.1 % Normal [facility] Comment on above: Order Comment: Speci men Type: BLOOD SPECIMENOrdering Facility: [facility] Address: [address] [place] [address] Performed By: #### 5 7021-8 ####[facility] [id number] [address] MCH (RBC) [Entitic mass] 36.8 pg High 26.0-34.0 [facility] Comment on above: Order Comment: Speci men Type: BLOOD SPECIMENOrdering Facility: [facility] Address: [address] [place] [address] Performed By: #### 5 7021-8 ####[facility] [id number] [address] MCHC (RBC) [Mass/Vol] 34.6 g/dL Normal 30.5-36.0 [facility] Comment on above: Order Comment: Speci men Type: BLOOD SPECIMENOrdering Facility: [facility] Address: [address] [place] [address] Performed By: #### 5 7021-8 ####[facility] [id number] [address] MCV (RBC) [Entitic vol] 106.3 fL High 80.0-100.0 [facility] Comment on above: Order Comment: Speci men Type: BLOOD SPECIMENOrdering Facility: [facility] Address: [address] [place] [address] Performed By: #### 5 7021-8 ####[facility] [id number] [address] Monocytes (Bld) [#/Vol] 0.77 10*3/uL Normal <0.87 [facility] Comment on above: Order Comment: Speci men Type: BLOOD SPECIMENOrdering Facility: [facility] Address: [address] [place] [address] Performed By: #### 5 7021-8 ####[facility] [id number] [address] Monocytes/100 WBC (Bld) 10.7 % Normal [facility] Comment on above: Order Comment: Speci men Type: BLOOD SPECIMENOrdering Facility: [facility] Address: [address] [place] [address] Performed By: #### 5 7021-8 ####[facility] [id number] [place] [address] [place] Neutrophils (Bld) [#/Vol] 5.09 10*3/uL Normal 1.45-7.50 [facility] Comment on above: Order Comment: Speci men Type: BLOOD SPECIMENOrdering Facility: [facility] Address: [address] [place] [address] Performed By: #### 5 7021-8 ####[facility] [id number] [place] [address] [place] Neutrophils/100 WBC (Bld) 70.4 % Normal [facility] Comment on above: Order Comment: Speci men Type: BLOOD SPECIMENOrdering Facility: [facility] Address: [address] [place] [address] Performed By: #### 5 7021-8 ####[facility] [id number] [place] [address] [place] Nucleated RBC (Bld) [#/Vol] 10*3/uL Normal <0.01 [facility] Comment on above: Order Comment: Speci men Type: BLOOD SPECIMENOrdering Facility: [facility] Address: [address] [place] [address] Performed By: #### 5 7021-8 ####[facility] [id number] [place] [address] [place] Nucleated RBC/100 WBC (Bld) [Ratio] 0.0 /100 WBC Normal [facility] Comment on above: Order Comment: Speci men Type: BLOOD SPECIMENOrdering Facility: [facility] Address: [address] [place] [address] Performed By: #### 5 7021-8 ####[facility] [id number] [place] [address] [place] Platelet mean volume (Bld) [Entitic vol] 8.5 fL Low 9.0-12.7 [facility] Comment on above: Order Comment: Speci men Type: BLOOD SPECIMENOrdering Facility: [facility] Address: [address] [place] [address] Performed By: #### 5 7021-8 ####[facility] [id number] [address] [place] Platelets (Bld) [#/Vol] 185 10*3/uL Normal 150-400 [facility] Comment on above: Order Comment: Speci men Type: BLOOD SPECIMENOrdering Facility: [facility] Address: [address] [place] [address] Performed By: #### 5 7021-8 ####[facility] [id number] [address] [place] RBC (Bld) [#/Vol] 2.53 10*6/uL Low 4.20-6.00 [facility] Comment on above: Order Comment: Speci men Type: BLOOD SPECIMENOrdering Facility: [facility] Address: [address] [place] [address] Performed By: #### 5 7021-8 ####[facility] [id number] [address] WBC (Bld) [#/Vol] 7.22 10*3/uL Normal 3.70-11.00 [facility] Comment on above: Order Comment: Speci men Type: BLOOD SPECIMENOrdering Facility: [facility] Address: [address] [place] [address] Performed By: #### 5 7021-8 ####[facility] [id number] [address] [place] CONSULT PROGon 12-26-2024 CONSULT PROG HNO ID: [id number] Author: JIMBO NOLAN MD Service: Infectious Disease Author Type: Physician Type: Consult Progress Note Filed: 12/26/2024 22:26 Note Text: INFECTIOUS DISEASE PROGRESS NOTE Patient Name: Zachary Short INTERVAL HISTORY: No fevers. Feels better. Voiding trial Patient Active Hospital Problem List: Acute urinary tract infection Date Noted: 05/27/2024 Mixed hyperlipidemia Date Noted: 11/09/2005 Primary hypertension Date Noted: 09/15/2009 Prostate cancer (HCC) Date Noted: 11/29/2023 BPH with obstruction/lower urinary tract symptoms Date Noted: 11/28/2024 Acute on chronic urinary retention Date Noted: 12/24/2024 Fall Date Noted: 12/24/2024 GERD (gastroesophageal reflux disease) Date Noted: 08/08/2017 Weakness Date Noted: 12/24/2024 Hyponatremia Date Noted: 12/24/2024 Acute UTI (urinary tract infection) Date Noted: 12/24/2024 ASSESSMENT: Acute urinary tract infection Mixed hyperlipidemia Primary hypertension Prostate cancer BPH with obstruction/lower urinary tract symptoms Acute on chronic urinary retention Fall GERD (gastroesophageal reflux disease) Weakness Hyponatremia PLAN: Continue Zosyn Stopped vanco Abx started before UCx collected Added Pyridium BCx x 2 Voiding trial Shoulder XR Check PSA Renal US DC Mahoney catheter, continue BPH medications I have reviewed and interpreted all lab test imaging studies and documentations from other healthcare providers I am monitoring antibiotics for side effects and toxicity MEDICATIONS: reviewed. Current Facility-Administered Medications Medication Dose Route Frequency NaCl 0.9% iv flush bag 20 mL INTRAVENOUS PRN piperacillin-tazobactam iv piggyback 3.375 g in dextrose (iso-osmotic) 50 mL (ZOSYN) 3.375 g INTRAVENOUS q 6 HR oxyCODONE-acetaminophen 5-325 mg 1 tablet (PERCOCET) 1 tablet ORAL q 4 H PRN colestipol 1 g tab(s) (COLESTID) 1 g ORAL BID polyethylene glycol 3350 17 g packet 17 g ORAL DAILY PRN finasteride 5 mg tab(s) (PROSCAR) 5 mg ORAL DAILY tamsulosin 0.4 mg cap(s) (FLOMAX) 0.4 mg ORAL BID ondansetron orally disintegrating 4 mg tab(s) (ZOFRAN ODT) 4 mg ORAL q 6 H PRN Or ondansetron (PF) 4 mg injection (ZOFRAN) 4 mg INTRAVENOUS q 6 H PRN acetaminophen 650 mg tab(s) (TYLENOL) 650 mg ORAL q 6 H PRN aspirin, enteric coated 81 mg tab(s) 81 mg ORAL DAILY lisinopril 10 mg tab(s) (ZESTRIL) 10 mg ORAL DAILY And hydroCHLOROthiazide 12.5 mg tab(s) 12.5 mg ORAL DAILY phenazopyridine 200 mg tab(s) (PYRIDIUM) 200 mg ORAL TID after MEALS PHYSICAL EXAM: Vital signs: BP 115/63 Pulse 77 Temp 36.5 ?C (97.7 ?F) (Oral) Resp 14 Ht 180.3 cm (5' 11) Wt 104.4 kg (230 lb 2.6 oz) SpO2 95% BMI 32.10 kg/m? Temp (24hrs), Av.6 ?C (97.8 ?F), Min:36.5 ?C (97.7 ?F), Max:36.6 ?C (97.8 ?F) General: alert, oriented, NAD Lungs: bilaterally clear to auscultation Heart: regular rate and rhythm Abdomen: soft, non tender, non distended, BS+ Extremities: no edema No rashes No joint inflammation Neck supple Lines ok No CVAT Lines, Drains, and Airways Line Duration Peripheral 12/26/24 1743 [facility] Short Right Forearm 22 Gauge <1 day Labs: Recent Labs 12/26/24 0447 12/26/24 0446 12/25/24 0437 12/24/24 2109 12/24/24 1919 WBC -- 7.22 7.85 -- 8.56 HB -- 9.3* 9.0* -- 9.7* PLT -- 185 201 -- 202 NA 137 -- 138 -- 135* K 4.4 -- 4.0 -- 4.7 CO2 27 -- 25 -- 23 BUN 18 -- 16 -- 20 CREAT 1.29* -- 0.94 -- 1.08 AST -- -- -- -- 19 ALT -- -- -- -- 14 TBILI -- -- -- -- 0.2 ALKPHOS -- -- -- -- 87 LACT -- -- -- 0.9 -- Microbiology data: reviewed Imaging data: reviewed Jimbo Nolan MD Pager: Date of service: 12/26/2024 Time of service: 10:22 AM This note is not final until Authenticated by responsible provider. Normal [facility] Magnesium SerPl-mCncon 12-26 Magnesium [Mass/Vol] 2.2 mg/dL Normal 1.7-2.3 [facility] Comment on above: Order Comment: Speci men Type: BLOOD SPECIMEN Order[facility] Facility[facility] Address: [address] [place] [address] Performed By: #### 2 4321-2, 61400-6 #### [facility] CLIA [id number] [address] [place] [address] [facility] NUTRITIONon 12-26-2024 NUTRITION HNO ID: [id number] Author: LUISA ARGUETA RD Service: Nutrition Therapy Author Type: Registered Dietitian Type: Nutrition Filed: 12/26/2024 13:21 Note Text: NUTRITION THERAPY SCREEN NOTE SERVICE DATE: 12/26/2024 SERVICE TIME: Start Time: 5 Care Plan: Continue current diet Monitor and Evaluation: Meet greater than 75% of estimated needs Intake History: Nutrition Intake Prior to Admission: good appetite eating 2-3 meals/day + snacks at times per pt Current Nutrition Intake: 100% of meals that have been recorded in flowsheets since admission per pt. Good appetite per pt. Diet Orders (From admission, onward) Start Ordered 12/24/242244 DIET REGULAR START NOW 12/24/242237 Anthropometrics: Height: 180.3 cm (5' 11) Weight: 104.4 kg (230 lb 2.6 oz) Usual Weight: 110.7 kg (244 lb 0.8 oz) 06/26/24 Usual Weight Obtained From: Chart Review Weight change percentage over time: 5.7% weight loss 6 months Weight Change: Not clinically significant weight loss MNT Billing: $ Routine Care : 1 unit Time Spent (mins): 3 SIGNATURE: Luisa Argueta RD PATIENT NAME: Zachary Short DATE: December 26, 2024 TIME: 1:21 PM Normal [facility] PSA SerPl-mCncon 12-26-2024 Prostate specific Ag [Mass/Vol] ng/mL Normal <2.60 [facility] Comment on above: Order Comment: Speci men Type: BLOOD SPECIMENOrdering Facility: [facility] Address: [address] [place] [address] Result Comment: Wilmana angeline PSA test methodology used is the Electrochemiluminescence Immunoassay by [employer]. Total PSA values by differing methodologies cannot be interchanged. Performed By: #### 2 857-1 ####[facility] LABCLIA [id number] [place] [id number] [place] ALLIED HEALTHon 12-25-2024 ALLIED HEALTH HNO ID: [id number] Author: CASIE ANDINO RT(R) Service: Radiology Author Type: Insurance Inspector Type: Allied Health Filed: 12/25/2024 23:44 Note Text: Radiology Service Progress Note PATIENT NAME: Zachary Short DATE OF SERVICE: December 25, 2024 TIME: 11:44 PM PATIENT IDENTITY VERIFICATION COMPLETED USING TWO (2) IDENTIFIERS: Name and Date of confirmed by patient verbally and Name and Date of confirmed by identification band. FALL SCREENING: Has the patient had 2 falls in the last year or 1 fall with injury or currently using an Ambulatory Assistive Device (Walker, Cane, Wheelchair, Crutches, etc.)? Inpatient: Screened on floor PATIENT GENDER DATA: Assigned male at PATIENT RELEVANT IMPLANT DATA REVIEWED: Not Applicable PATIENT PRESENTS WITH AN IMPLANTABLE OR ATTACHED EXTENSION WORK INSTRUCTOR: No RADIOLOGY DEPARTMENT: Ultrasound PERIPHERAL IV DATA: Not applicable SIGNED BY: RT Linus(R) December 25, 2024 11:44 PM Normal [facility] Basic metabolic 2000 panelon 12-25-2024 Anion gap [Moles/Vol] 12 mmol/L Normal 8-15 [facility] Comment on above: Order Comment: Speci men Type: BLOOD SPECIMENOrdering Facility: [facility] Address: [address] [place] [address] Performed By: #### 2 132-9, 54623-5, 64016-9 ####[facility] [id number] [place] [address] [place]#### 2284-8 ####[facility] LABCLIA [id number] [place] [id number] [place] Calcium [Mass/Vol] 8.8 mg/dL Normal 8.5-10.2 [facility] Comment on above: Order Comment: Speci men Type: BLOOD SPECIMENOrdering Facility: [facility] Address: [address] [place], [place] [address] Performed By: #### 2 132-9, 53544-4, ####[facility] [id number] [place] [address] [place]#### 2284-8 ####[facility] LABCLIA [id number] [address] [address] [place] Chloride [Moles/Vol] 101 mmol/L Normal 98-107 [facility] Comment on above: Order Comment: Speci men Type: BLOOD SPECIMENOrdering Facility: [facility] Address: [address] [place] [address] Performed By: #### 2 132-9, , ####[facility] [id number] [place] [address] [place]#### 2284-8 ####[facility] LABCLIA [id number] [place] [id number] [place] CO2 [Moles/Vol] 25 mmol/L Normal 22-30 [facility] Comment on above: Order Comment: Speci men Type: BLOOD SPECIMENOrdering Facility: [facility] Address: [address] [place] [address] Performed By: #### 2 132-9, , ####[facility] [id number] [place] [address] [place]#### 2284-8 ####[facility] LABCLIA [id number] [address] [address] [place] Creatinine [Mass/Vol] 0.94 mg/dL Normal 0.73-1.22 [facility] Comment on above: Order Comment: Speci men Type: BLOOD SPECIMENOrdering Facility: [facility] Address: [address] [place], [place] [address] Performed By: #### 2 132-9, , ####[facility] [id number] [place] [address] [place]#### 2284-8 ####[facility] LABCLIA [id number] [place] [address] [place] eGFRcr SerPlBld CKD-EPI 2020 81 mL/min/1.73m??? Normal >=60 [facility] Comment on above: Order Comment: Radha charles Type: BLOOD SPECIMENOrdering Facility: [facility] Address: [address] [place] [address] Result Comment: Ekaterina mated Glomerular Filtration Rate (eGFR) is calculated using the 2020 CKD-EPI creatinine equation. This equation utilizes serum creatinine, sex, and age as parameters. The creatinine assay has traceable calibration to isotope dilution-mass spectrometry. Refer to KDIGO guidelines for clinical interpretation. In patients with unstable renal function, e.g. those with acute kidney injury, the eGFR may not accurately reflect actual GFR. Performed By: #### 2 132-9, 71673-9, 79136-7 ####[facility]IA [id number] [place] [address] [place]#### 2284-8 ####[facility] LABCLIA [id number] [place] [address] [place] Glucose [Mass/Vol] 94 mg/dL Normal 74-99 [facility] Comment on above: Order Comment: Radha charles Type: BLOOD SPECIMENOrdering Facility: [facility] Address: [address] [place] [address] Result Comment: The [place] [employer] Association (ADA) provides guidance for cutoff values for fasting glucose and random glucose. The ADA defines fasting as no caloric intake for at least 8 hours. Fasting plasma glucose results between 100 to 125 mg/dL indicate increased risk for diabetes (prediabetes). Fasting plasma glucose results greater than or equal to 126 mg/dL meet the criteria for diagnosis of diabetes. In the absence of unequivocal hyperglycemia, results should be confirmed by repeat testing. In a patient with classic symptoms of hyperglycemia or hyperglycemic crisis, random plasma glucose results greater than or equal to 200 mg/dL meet the criteria for diagnosis of diabetes. Reference: Standards of Medical Care in Diabetes 2016, [place] [employer]. Diabetes Care. 2016.39(Suppl 1). Performed By: #### 2 132-9, 50857-1, ####LINK LABORATORYCLIA [id number] [place] [address] [place]#### 2284-8 ####[facility] LABCLIA [id number] [address] [address] [place] Potassium [Moles/Vol] 4.0 mmol/L Normal 3.7-5.1 [facility] Comment on above: Order Comment: Speci men Type: BLOOD SPECIMENOrdering Facility: [facility] Address: [address] [place] [address] Performed By: #### 2 132-9, , ####LINK LABORATORYCLIA [id number] [place] [address] [place]#### 2284-8 ####[facility] LABCLIA [id number] [address] [address] [place] Sodium [Moles/Vol] 138 mmol/L Normal 136-144 [facility] Comment on above: Order Comment: Speci men Type: BLOOD SPECIMENOrdering Facility: [facility] Address: [address] [place] [address] Performed By: #### 2 132-9, , ####LINK LABORATORYCLIA [id number] [place] [address] [place]#### 2284-8 ####[facility] LABCLIA [id number] [address] [address] [place] Urea nitrogen [Mass/Vol] 16 mg/dL Normal 9-24 [facility] Comment on above: Order Comment: Speci men Type: BLOOD SPECIMENOrdering Facility: [facility] Address: [address] [place], [place] [address] Performed By: #### 2 132-9, , ####LINK LABORATORYCLIA [id number] [address] [place]#### 2284-8 ####[facility] LABCLIA [id number] [address] [place] CBC panel Auto (Bld)on 12-25 Erythrocyte distribution width (RBC) [Ratio] 12.4 % Normal 11.5-15.0 [facility] Comment on above: Order Comment: Speci men Type: BLOOD SPECIMENOrdering Facility: [facility] Address: [address] [place] [address] Performed By: #### 5 8410-2 ####LINK LABORATORYCLIA [id number] [address] Hematocrit (Bld) [Volume fraction] 26.6 % Low 39.0-51.0 [facility] Comment on above: Order Comment: Speci men Type: BLOOD SPECIMENOrdering Facility: [facility] Address: [address] [place] [address] Performed By: #### 5 8410-2 ####LINK LABORATORYCLIA [id number] [address] Hemoglobin (Bld) [Mass/Vol] 9.0 g/dL Low 13.0-17.0 [facility] Comment on above: Order Comment: Speci men Type: BLOOD SPECIMENOrdering Facility: [facility] Address: [address] [place] [address] Performed By: #### 5 8410-2 ####LINK LABORATORYCLIA [id number] [address] MCH (RBC) [Entitic mass] 35.7 pg High 26.0-34.0 [facility] Comment on above: Order Comment: Speci men Type: BLOOD SPECIMENOrdering Facility: [facility] Address: [address] [place] [address] Performed By: #### 5 8410-2 ####LINK LABORATORYCLIA [id number] [place] [address] [place] MCHC (RBC) [Mass/Vol] 33.8 g/dL Normal 30.5-36.0 [facility] Comment on above: Order Comment: Speci men Type: BLOOD SPECIMENOrdering Facility: [facility] Address: [address] [place] [address] Performed By: #### 5 8410-2 ####LINK LABORATORYCLIA [id number] [address] [place] MCV (RBC) [Entitic vol] 105.6 fL High 80.0-100.0 [facility] Comment on above: Order Comment: Speci men Type: BLOOD SPECIMENOrdering Facility: [facility] Address: [address] [place] [address] Performed By: #### 5 8410-2 ####LINK LABORATORYCLIA [id number] [address] Nucleated RBC (Bld) [#/Vol] 10*3/uL Normal <0.01 [facility] Comment on above: Order Comment: Speci men Type: BLOOD SPECIMENOrdering Facility: [facility] Address: [address] [place] [address] Performed By: #### 5 8410-2 ####LINK LABORATORYCLIA [id number] [address] [place] Platelet mean volume (Bld) [Entitic vol] 8.8 fL Low 9.0-12.7 [facility] Comment on above: Order Comment: Speci men Type: BLOOD SPECIMENOrdering Facility: [facility] Address: [address] [place] [address] Performed By: #### 5 8410-2 ####LINK LABORATORYCLIA [id number] [place] [address] [place] Platelets (Bld) [#/Vol] 201 10*3/uL Normal 150-400 [facility] Comment on above: Order Comment: Speci men Type: BLOOD SPECIMENOrdering Facility: [facility] Address: [address] [place] [address] Performed By: #### 5 8410-2 ####LINK LABORATORYCLIA [id number] [address] [place] RBC (Bld) [#/Vol] 2.52 10*6/uL Low 4.20-6.00 [facility] Comment on above: Order Comment: Speci men Type: BLOOD SPECIMENOrdering Facility: [facility] Address: [address] [place] [address] Performed By: #### 5 8410-2 ####LINK LABORATORYCLIA [id number] [place] [id number] [facility] WBC (Bld) [#/Vol] 7.85 10*3/uL Normal 3.70-11.00 [facility] Comment on above: Order Comment: Speci men Type: BLOOD SPECIMENOrdering Facility: [facility] Address: [address] [place] [address] Performed By: #### 5 8410-2 ####LINK LABORATORYCLIA [id number] [address] CONSULTon 12-25-2024 CONSULT HNO ID: [id number] Author: JIMBO NOLAN MD Service: Infectious Disease Author Type: Physician Type: Consults Filed: 12/25/2024 22:49 Note Text: INFECTIOUS DISEASE INITIAL CONSULT SERVICE DATE: 12/25/2024 SERVICE TIME: 10:42 AM REASON FOR CONSULT: UTI Subjective Patient is seen at the request of Dr Sun. My final recommendations will be communicated back to the requesting physician by way of copy of this note or shared electronic medical record. HPI: Zachary Short who is a 79 year old male with PMHx of HTN, HLD, GERD, BPH, prostate cancer s/p radiation with recent negative biopsy 11/28/24, and hx chronic urinary retention who presents with blood in urine. Patient was sent in by PCP for concerns of blood in his urine. Patient has been weak and suffered a fall onto his right shoulder today after losing his balance. He states he has felt lightheaded like his head is in the clouds. He endorses blood in his urine with numerous clots yesterday that has resolved with dysuria for a few days. He states he has been urinating more at night going about every 2 hrs. He endorses suprapubic pressure/discomfort. He recently underwent a TURP at [facility] on11/28/24 and had 8 days of bleeding thereafter. He has been having low back pain since a fall around 2023 made worse by the fall today which he states is tolerable and declines oxycodone. His temp has been 99F max at home with no chills. He endorses chronic toe tingling and leg soreness. He denies smoking, endorses rare alcohol use and denies illicit drug use. He denies headaches, syncope, chest pain, shortness of breath, abdominal pain, nausea, vomiting, diarrhea, constipation, lower extremity edema. 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 Only seasonal now PAST SURGICAL HISTORY Procedure Laterality Date ARTHROPLASTY HEMIARTHROPLASTY 09/10/2011 left shoulder Ari arthroplasty ARTHROPLASTY HEMIARTHROPLASTY 03/07/2012 left shoulder revision COLONOSCOPY AND POLYPECTOMY 08/23/11 repeat 5 years COLONOSCOPY FLX DX W/COLLJ SPEC WHEN PFRMD 10/19/2016 Normal colonoscopy-family history-5 year follow-up NECK 07/17/2007 Anterior cervical discectomy allograft fusion on c-4,c-5,c-6 Social History Tobacco Use Smoking status: Never Passive exposure: Never Smokeless tobacco: Never Vaping Use Vaping status: Never Used Substance Use Topics Alcohol use: Yes Comment: socially, 3-4 beers/year Drug use: No FAMILY HISTORY Problem Relation Age of Onset Colon Cancer Father Cancer Mother metastatic melanoma Immunization History Administered Date(s) Administered COVID-19 original vaccine, age 12+ yr, monovalent ([employer] - PURPLE TOP) 07/25/2020 08/15/2020 influenza (HD-IIV3) vaccine, age 65+ yr, high dose, trivalent, PF (FLUZONE HIGH-DOSE) 02/27/2019 influenza (IIV3) vaccine, age 6 mo - 64 yr, trivalent (AFLURIA, FLULAVAL, FLUVIRIN, FLUZONE) 06/25/2014 influenza vaccine, unspecified formulation 09/09/2011 06/22/2013 pneumococcal conjugate (PCV13) vaccine, 13 valent (PREVNAR 13) 10/06/2016 pneumococcal polysaccharide (PPV23) vaccine, 23 valent (PNEUMOVAX 23) 09/09/2011 Current Facility-Administered Medications Medication Dose Route Frequency phenazopyridine 200 mg tab(s) (PYRIDIUM) 200 mg ORAL TID after MEALS NaCl 0.9% iv flush bag 20 mL INTRAVENOUS PRN piperacillin-tazobactam iv piggyback 3.375 g in dextrose (iso-osmotic) 50 mL (ZOSYN) 3.375 g INTRAVENOUS q 6 HR vancomycin dosing and monitoring per pharmacy OTHER As Directed oxyCODONE-acetaminophen 5-325 mg 1 tablet (PERCOCET) 1 tablet ORAL q 4 H PRN colestipol 1 g tab(s) (COLESTID) 1 g ORAL BID polyethylene glycol 3350 17 g packet 17 g ORAL DAILY PRN finasteride 5 mg tab(s) (PROSCAR) 5 mg ORAL DAILY tamsulosin 0.4 mg cap(s) (FLOMAX) 0.4 mg ORAL BID ondansetron orally disintegrating 4 mg tab(s) (ZOFRAN ODT) 4 mg ORAL q 6 H PRN Or ondansetron (PF) 4 mg injection (ZOFRAN) 4 mg INTRAVENOUS q 6 H PRN acetaminophen 650 mg tab(s) (TYLENOL) 650 mg ORAL q 6 H PRN aspirin, enteric coated 81 mg tab(s) 81 mg ORAL DAILY lisinopril 10 mg tab(s) (ZESTRIL) 10 mg ORAL DAILY And hydroCHLOROthiazide 12.5 mg tab(s) 12.5 mg ORAL DAILY vancomycin iv piggyback 1.5 g in D5W 300 mL (VANCOCIN) 1.5 g INTRAVENOUS q 24 HR ALLERGIES Allergen Reactions Ramelteon Mental Status Change REVIEW OF SYSTEMS: ROS checked in details x 10 systems and is negat (more content not included)... [facility] CONSULT PROGon 12-25-2024 CONSULT PROG HNO ID: [id number] Author: FOSTER FELIX RPh Service: Pharmacy Author Type: Pharmacist Type: Consult Progress Note Filed: 12/25/2024 23:00 Note Text: PHARMACY VANCOMYCIN DOSING NOTE Patient Name: Zachary S Han Admission Date: 12/24/2024 Date of Consult: 12/25/2024 Time of Consult: 11:00 PM RECOMMENDATIONS/PLAN: Pharmacy consulted for vancomycin dosing for Zachary Short, a 79 year old male. Vancomycin therapy has been discontinued. Vancomycin level(s) have been discontinued: Yes. The pharmacy vancomycin dosing service will sign off. Thank you for allowing us to participate in this patient's care. Please contact pharmacy if there are questions. Foster Felix, [facility] Normal [facility] Folate SerPl-mCncon 12-26-19 25 Folate [Mass/Vol] 15.9 ng/mL Normal >4.7 [facility] Comment on above: Order Comment: Radha charles Type: BLOOD SPECIMENOrdering Facility: [facility] Address: [address] [place] [address] Performed By: #### 2 132-9, 76237-8, 20281-9 ####DONIPHAN LABORATORYCLIA [id number] [place] [address] [place]#### 2284-8 ####[facility] LABCLIA [id number] [place] [address] [place] [facility] Magnesium [Mass/Vol] 1.8 mg/dL Normal 1.7-2.3 [facility] Comment on above: Order Comment: Radha charles Type: BLOOD SPECIMENOrdering Facility: [facility] Address: [address] [place] [address] Performed By: #### 2 132-9, 12687-0, ####DONIPHAN LABORATORYCLIA [id number] [place] [address] [place]#### 2284-8 ####[facility] LABCLIA [id number] [place] [address] [place] US KIDNEY/BLADDERon 12-26-19 25 US KIDNEY/BLADDER * * *Final Report* * * DATE OF EXAM: Dec 25 2024 11:48PM U 1055 - US KIDNEY/BLADDER / PROCEDURE REASON: Urinary retention * * * * Physician Interpretation * * * * EXAMINATION: RENAL ULTRASOUND CLINICAL HISTORY: Urinary retention TECHNIQUE: Sonography of the kidneys and urinary bladder was performed. Images were obtained and stored in a permanent archive. MQ: UR_1 COMPARISON: None RESULT: Right Kidney: -Renal length: 11.6 cm -Parenchyma: Normal parenchymal echogenicity. Normal parenchymal thickness. -Collecting system: No hydronephrosis. -Calculus: No echogenic, shadowing calculus. -Lesion: None Left Kidney: -Renal length: 12.5 cm -Parenchyma: Normal parenchymal echogenicity. Normal parenchymal thickness. -Collecting system: No hydronephrosis. -Calculus: No echogenic, shadowing calculus. -Lesion: Complex cyst along the medial aspect of the lower pole measures 2.3 x 2.0 x 2.3 cm. Bladder: Bladder is distended with a volume of 279 cc. There is bladder wall thickening measuring 6 mm. Patient has history of prostate cancer. The prostate gland is enlarged and impresses upon the base of the urinary bladder measuring 5.8 x 4.0 x 7.6 cm. IMPRESSION: Complex cyst of the left kidney. Thickening of the bladder wall possibly related to enlarged prostate gland impressing upon the base of the urinary bladder. Slitter Cut Off Operator: PSCB Transcribe Date/Time: Dec 26 2024 8:13A Dictated by : DEREK MOSHER MD This examination was interpreted and the report reviewed and electronically signed by: DEREK MOSHER MD on Dec 26 2024 8:16AM EST [id number] Normal [facility] Vit [facility]12 [facility] Cobalamin (Vitamin B12) [Mass/Vol] 423 pg/mL Normal 232-1245 [facility] Comment on above: Order Comment: Speci men Type: BLOOD SPECIMENOrdering Facility: [facility] Address: [address] [place] [address] Performed By: #### 2 132-9, 99119-6, 39434-7 ####DONIPHAN LABORATORYCLIA [id number] [place] [address] [place]#### 2284-8 ####[facility] LABCLIA [id number] [place] [id number] [facility] HE[facility] 12-24-2024 ALLIED HEALTH HNO ID: [id number] Author: JOSELUIS MELISSA RT(R) Service: Radiology Author Type: Insurance Inspector Type: Allied Health Filed: 12/24/2024 20:33 Note Text: Radiology Service Progress Note PATIENT NAME: Zachary Short DATE OF SERVICE: December 24, 2024 TIME: 8:33 PM PATIENT IDENTITY VERIFICATION COMPLETED USING TWO (2) IDENTIFIERS: Name and Date of confirmed by patient verbally and Name and Date of confirmed by identification band. FALL SCREENING: Has the patient had 2 falls in the last year or 1 fall with injury or currently using an Ambulatory Assistive Device (Walker, Cane, Wheelchair, Crutches, etc.)? Emergency Room Patient: Screened in ED PATIENT GENDER DATA: Assigned male at PATIENT RELEVANT IMPLANT DATA REVIEWED: Not Applicable PATIENT PRESENTS WITH AN IMPLANTABLE OR ATTACHED EXTENSION WORK INSTRUCTOR: No RADIOLOGY DEPARTMENT: General X-ray: Exam(s) Completed: Upper Extremity X-Ray(s): Shoulder, AP / TRUE AP right PERIPHERAL IV DATA: Not applicable SIGNED BY: RT Hayder(R) December 24, 2024 8:33 PM [facility] ALLIED HEALTH HNO ID: [id number] Author: CARLEY ABARCA RT(R) Service: Radiology Author Type: Technologist Type: Allied Health Filed: 12/24/2024 20:29 Note Text: Radiology Service Progress Note PATIENT NAME: Zachary Short DATE OF SERVICE: December 24, 2024 TIME: 8:28 PM PATIENT IDENTITY VERIFICATION COMPLETED USING TWO (2) IDENTIFIERS: Name and Date of confirmed by patient verbally and Name and Date of confirmed by identification band. FALL SCREENING: Has the patient had 2 falls in the last year or 1 fall with injury or currently using an Ambulatory Assistive Device (Walker, Cane, Wheelchair, Crutches, etc.)? Emergency Room Patient: Screened in ED PATIENT GENDER DATA: Assigned male at PATIENT RELEVANT IMPLANT DATA REVIEWED: Not Applicable PATIENT PRESENTS WITH AN IMPLANTABLE OR ATTACHED EXTENSION WORK INSTRUCTOR: No RADIOLOGY DEPARTMENT: General X-ray: Exam(s) Completed: Upper Extremity X-Ray(s): Shoulder, AP / TRUE AP / Y VIEW right PERIPHERAL IV DATA: Not applicable SIGNED BY: RT Kendell(R) December 24, 2024 8:28 PM [facility] Bacteria Bld Culton 12-25-19 25 Bacteria identified Cx Nom (Bld) CULTURE, BLOOD: No growth 5 days [facility] Comment on above: Performed By: #### 6 00-7 ####[facility] LABCLIA [id number] [address] OF [facility] Bacteria Ur Culton 5 Bacteria identified Cx Nom (U) ORGANISM ID: 1 >=100,000 CFU/ml Escherichia coli ORGANISM ID: 1 (ESCHERICHIA COLI) ANTIBIOTIC INTERPRETATION DYLAN STATUS REFERENCE RANGE Ampicillin S 4 F Susceptible <=8 , Intermediate >8 , Resistant >16 Cefazolin S <=4 F Susceptible 0-16 , Intermediate <0 or >16 , Resistant >16 For uncomplicated urinary tract infections, cefazolin results can be used to predict susceptibility or resistance to cephalexin. Ceftriaxone S <=1 F Susceptible <=1 , Intermediate >1 , Resistant >=4 Cefepime S <=1 F Susceptible <=2 , Susceptible-Dose Dependent >2 , Resistant >=16 Ertapenem S <=0.5 F Susceptible <=0.5 , Intermediate >.5 , Resistant >1 Meropenem S <=0.25 F Susceptible <=1 , Intermediate >1 , Resistant >2 Ampicillin/Sulbact S <=2 F Susceptible <=8 , Intermediate >8 , Resistant >16 Piperacillin/Tazobac S <=4 F Susceptible <16 , Susceptible-Dose Dependent >=16 , Resistant >=32 Gentamicin S <=1 F Susceptible <=2 , Intermediate >2 , Resistant >=8 Tobramycin S <=1 F Susceptible <4 , Intermediate >=4 , Resistant >=8 Trimeth sulfameth S <=20 F Susceptible <=40 , Resistant >40 Ciprofloxacin S <=0.25 F Susceptible <0.5 , Intermediate >=.5 , Resistant >=1 Nitrofurantoin S <=16 F Susceptible <=32 , Intermediate >32 , Resistant >64 Abnormal [facility] Comment on above: Performed By: #### 6 30-4 ####[facility] LABCLIA [id number] [address]#### [address]-8 ####DONIPHAN LABORATORYCLIA [id number] [address] [place] CBC W Auto Differential pane l (Bld)on 12-24-2024 Basophils (Bld) [#/Vol] 0.07 10*3/uL Normal <0.11 [facility] Comment on above: Order Comment: Speci men Type: BLOOD SPECIMENOrdering Facility: [facility] Address: [address] [place] [address] Performed By: #### 5 7021-8 ####DONIPHAN LABORATORYCLIA [id number] [address] [place] Basophils/100 WBC (Bld) 0.8 % Normal [facility] Comment on above: Order Comment: Speci men Type: BLOOD SPECIMENOrdering Facility: [facility] Address: [address] [place] [address] Performed By: #### 5 7021-8 ####LINK LABORATORYCLIA [id number] [address] Differential cell count method Nom (Bld) Auto Normal [facility] Comment on above: Order Comment: Speci men Type: BLOOD SPECIMENOrdering Facility: [facility] Address: [address] [place], [place] [address] Performed By: #### 5 7021-8 ####LINK LABORATORYCLIA [id number] [address] [place] Eosinophils (Bld) [#/Vol] 0.17 10*3/uL Normal <0.46 [facility] Comment on above: Order Comment: Speci men Type: BLOOD SPECIMENOrdering Facility: [facility] Address: [address] [place] [address] Performed By: #### 5 7021-8 ####LINK LABORATORYCLIA [id number] [address] Eosinophils/100 WBC (Bld) 2.0 % Normal [facility] Comment on above: Order Comment: Speci men Type: BLOOD SPECIMENOrdering Facility: [facility] Address: [address] [place] [address] Performed By: #### 5 7021-8 ####LINK LABORATORYCLIA [id number] [address] Erythrocyte distribution width (RBC) [Ratio] 12.6 % Normal 11.5-15.0 [facility] Comment on above: Order Comment: Speci men Type: BLOOD SPECIMENOrdering Facility: [facility] Address: [address] [place] [address] Performed By: #### 5 7021-8 ####LINK LABORATORYCLIA [id number] [address] Hematocrit (Bld) [Volume fraction] 28.6 % Low 39.0-51.0 [facility] Comment on above: Order Comment: Speci men Type: BLOOD SPECIMENOrdering Facility: [facility] Address: [address] [place] [address] Performed By: #### 5 7021-8 ####LINK LABORATORYCLIA [id number] [address] Hemoglobin (Bld) [Mass/Vol] 9.7 g/dL Low 13.0-17.0 [facility] Comment on above: Order Comment: Speci men Type: BLOOD SPECIMENOrdering Facility: [facility] Address: [address] [place] [address] Performed By: #### 5 7021-8 ####LINK LABORATORYCLIA [id number] [place] [address] [place] Immature granulocytes (Bld) [#/Vol] 0.07 10*3/uL Normal <0.10 [facility] Comment on above: Order Comment: Speci men Type: BLOOD SPECIMENOrdering Facility: [facility] Address: [address] [place] [address] Performed By: #### 5 7021-8 ####LINK LABORATORYCLIA [id number] [place] [address] [place] Immature granulocytes/100 WBC (Bld) 0.8 % Normal [facility] Comment on above: Order Comment: Speci men Type: BLOOD SPECIMENOrdering Facility: [facility] Address: [address] [place] [address] Performed By: #### 5 7021-8 ####LINK LABORATORYCLIA [id number] [place] [address] [place] Lymphocytes (Bld) [#/Vol] 0.79 10*3/uL Low 1.00-4.00 [facility] Comment on above: Order Comment: Speci men Type: BLOOD SPECIMENOrdering Facility: [facility] Address: [address] [place] [address] Performed By: #### 5 7021-8 ####LINK LABORATORYCLIA [id number] [address] [place] Lymphocytes/100 WBC (Bld) 9.2 % Normal [facility] Comment on above: Order Comment: Speci men Type: BLOOD SPECIMENOrdering Facility: [facility] Address: [address] [place] [address] Performed By: #### 5 7021-8 ####LINK LABORATORYCLIA [id number] [place] [address] [place] MCH (RBC) [Entitic mass] 35.7 pg High 26.0-34.0 [facility] Comment on above: Order Comment: Speci men Type: BLOOD SPECIMENOrdering Facility: [facility] Address: [address] [place] [address] Performed By: #### 5 7021-8 ####LINK LABORATORYCLIA [id number] [place] [address] [place] MCHC (RBC) [Mass/Vol] 33.9 g/dL Normal 30.5-36.0 [facility] Comment on above: Order Comment: Speci men Type: BLOOD SPECIMENOrdering Facility: [facility] Address: [address] [place] [address] Performed By: #### 5 7021-8 ####LINK LABORATORYCLIA [id number] [place] [address] [place] MCV (RBC) [Entitic vol] 105.1 fL High 80.0-100.0 [facility] Comment on above: Order Comment: Speci men Type: BLOOD SPECIMENOrdering Facility: [facility] Address: [address] [place] [address] Performed By: #### 5 7021-8 ####LINK LABORATORYCLIA [id number] [place] [address] [place] Monocytes (Bld) [#/Vol] 0.88 10*3/uL High <0.87 [facility] Comment on above: Order Comment: Speci men Type: BLOOD SPECIMENOrdering Facility: [facility] Address: [address] [place] [address] Performed By: #### 5 7021-8 ####LINK LABORATORYCLIA [id number] [address] [place] Monocytes/100 WBC (Bld) 10.3 % Normal [facility] Comment on above: Order Comment: Speci men Type: BLOOD SPECIMENOrdering Facility: [facility] Address: [address] [place] [address] Performed By: #### 5 7021-8 ####LINK LABORATORYCLIA [id number] [place] [address] [place] Neutrophils (Bld) [#/Vol] 6.58 10*3/uL Normal 1.45-7.50 [facility] Comment on above: Order Comment: Speci men Type: BLOOD SPECIMENOrdering Facility: [facility] Address: [address] [place] [address] Performed By: #### 5 7021-8 ####LINK LABORATORYCLIA [id number] [address] Neutrophils/100 WBC (Bld) 76.9 % Normal [facility] Comment on above: Order Comment: Speci men Type: BLOOD SPECIMENOrdering Facility: [facility] Address: [address] [place] [address] Performed By: #### 5 7021-8 ####LINK LABORATORYCLIA [id number] [place] [address] [place] Nucleated RBC (Bld) [#/Vol] 10*3/uL Normal <0.01 [facility] Comment on above: Order Comment: Speci men Type: BLOOD SPECIMENOrdering Facility: [facility] Address: [address] [place] [address] Performed By: #### 5 7021-8 ####LINK LABORATORYCLIA [id number] [address] [place] Nucleated RBC/100 WBC (Bld) [Ratio] 0.0 /100 WBC Normal [facility] Comment on above: Order Comment: Speci men Type: BLOOD SPECIMENOrdering Facility: [facility] Address: [address] [place] [address] Performed By: #### 5 7021-8 ####LINK LABORATORYCLIA [id number] [place] [address] [place] Platelet mean volume (Bld) [Entitic vol] 8.7 fL Low 9.0-12.7 [facility] Comment on above: Order Comment: Speci men Type: BLOOD SPECIMENOrdering Facility: [facility] Address: [address] [place] [address] Performed By: #### 5 7021-8 ####LINK LABORATORYCLIA [id number] [place] [address] [place] Platelets (Bld) [#/Vol] 202 10*3/uL Normal 150-400 [facility] Comment on above: Order Comment: Speci men Type: BLOOD SPECIMENOrdering Facility: [facility] Address: [address] [place] [address] Performed By: #### 5 7021-8 ####LINK LABORATORYCLIA [id number] [address] RBC (Bld) [#/Vol] 2.72 10*6/uL Low 4.20-6.00 [facility] Comment on above: Order Comment: Speci men Type: BLOOD SPECIMENOrdering Facility: [facility] Address: [address] [place] [address] Performed By: #### 5 7021-8 ####LINK LABORATORYCLIA [id number] [address] WBC (Bld) [#/Vol] 8.56 10*3/uL Normal 3.70-11.00 [facility] Comment on above: Order Comment: Speci men Type: BLOOD SPECIMENOrdering Facility: [facility] Address: [address] [place] [address] Performed By: #### 5 7021-8 ####LINK LABORATORYCLIA [id number] [address] CNPMelisa 12-24-2024 CNPN Telephone (CRISTHIAN) -- ZACHARY SHORT ([id number]) 1945 M Date Time Provider Department 12/24/24 JUAN BLANTON JR (HIST) CRISTHIAN During your visit today, we recorded the following information about you: Mario Ugalde, RN 12/24/2024 4:20 PM Signed Patient is calling that he is having urinary burning and unable to urinate. Patient is drinking fluids. Patient stated that he also fell in his garage. Temp. 99.8. Patient is feeling weak. Patient had surgery on 11/28/24. Patient stated that he had blood in urine and blood clots yesterday but is clear up today after increasing his fluids. Informed patient that the recommendation would be for him to go to /[facility]. Mario Ugalde RN Allergies As of Date: 12/24/2024 Noted Allergy Reaction RAMDANIELEON 05/22/2024 1 - Mental Status Change Date Reviewed: 12/17/2024 Reviewed by: Nini Sheriff APRN.DIRECTOR OF COMPENSATION - Fully Assessed Reason for Visit: Patient Update [1234] Prescriptions as of 12/24/2024 - finasteride (PROSCAR) 5 mg tablet Take 1 tablet by mouth once daily. - colestipol (COLESTID) 1 gram tablet Take 1 tablet by mouth two times a day. - citalopram (CELEXA) 20 mg tablet Take 1 tablet by mouth once daily. - tamsulosin (FLOMAX) 0.4 mg Take 1 capsule by mouth two times a day. - oxyCODONE-acetaminophen 5-325 mg (PERCOCET) Take 1-2 tablets by mouth every 4 hours as needed (for pain). - azelastine 0.1% nasal spray Use 1 [place] in each nostril two times a day. - lisinopril-hydroCHLOROthia zide (ZESTORETIC) 10-12.5 mg per tablet Take 1 tablet by mouth once daily. - ergocalciferol 50,000 unit capsule (VITAMIN D2, DRISDOL) Take 1 capsule by mouth two times a week. TO BE TAKEN ORALLY DIRECTED. Take 1 tablet by mouth twice weekly x2vkopg, then decrease to 1 tablet weekly. - naproxen (NAPROSYN) 500 mg tablet Take 1 tablet by mouth two times a day as needed (for pain/inflammation). Take with food. - polyethylene glycol 3350 (MIRALAX) 17 gram/dose powder Take 17 g by mouth once daily. Dissolve dose in 4 - 8 ounces of liquid and take as directed. - aspirin, enteric coated (ASPIRIN, ENTERIC COATED) 81 mg EC tablet Take 1 tablet by mouth once daily. Problem List As Of Date 12/24/2024 Noted Resolved Mixed hyperlipidemia [E78.2] 11/09/2005 Unspecified Asthma [J45.909] 11/09/2005 Personal history of other malignant neoplasm of*03/31/2006 Cervical Spondylosis without Myelopathy [M47.81* Family History of Malignant Neoplasm of Gastroi*05/16/2008 Primary Localized Osteoarthrosis, Shoulder Quin*05/16/2008 ACTINIC KERATOSIS (Premalignant AK) [L57.0] 05/17/2008 Other Seborrheic Keratosis [L82.1] 05/17/2008 09/15/2009 ACTINIC DAMAGE///CHR SOLAR SKIN DAMAGE NOS [L57*05/17/2008 09/15/2009 Rosacea [L71.9] 05/17/2008 Primary hypertension [I10] 09/15/2009 Obesity [E66.9] 09/15/2009 Irritated//Inflamed Seborrheic Keratosis [L82.0]09/23/2009 Solar lentigo [L81.4] 09/23/2009 Bladder Neck Obstruction [N32.0] 10/30/2009 Hypertrophy of prostate with urinary obstructio*05/28/2010 Arthritis of shoulder region, left, degenerativ*08/03/2011 Benign neoplasm of rectum and anal canal [D12.8*08/23/2011 Pain in joint, shoulder region [M25.519] 10/21/2011 Chronic knee pain [M25.569, G89.29] 02/28/2017 Preop examination [Z01.818] 11/21/2023 Elevated prostate specific antigen (PSA) [R97.2*11/21/2023 11/29/2023 Obesity, Class I, BMI 30-34.9 [E66.811] 11/21/2023 Prostate cancer (HCC) [C61] 11/29/2023 BPH with obstruction/lower urinary tract sympto*11/28/2024 Hypotension [I95.9] 12/17/2024 Lightheaded [R42] 12/17/2024 Encounter Status:Closed by MARIO UGALDE on 12/24/24 [facility] CONSULT PROGon 12-24-2024 CONSULT PROG HNO ID: [id number] Author: FOSTER FELIX RPh Service: Pharmacy Author Type: Pharmacist Type: Consult Progress Note Filed: 12/24/2024 23:20 Note Text: PHARMACY VANCOMYCIN DOSING NOTE Patient Name: Zachary Short Admission Date: 12/24/2024 Date of Consult: 12/24/2024 Time of Consult: 9:34 PM Indication: Urinary tract infection Goal Range: 10-20 mcg/mL RECOMMENDATIONS/PLAN: Pharmacy consulted for vancomycin dosing for Zachary Short, a 79 year old male. 1. Patient is currently ordered Vancomycin 1.5 g IV once. Today is day 1 of therapy. 2. No vancomycin level has been drawn for this dosing regimen. 3. Will schedule vancomycin to 1.5 g with a dosing interval of q24h. 4. The next vancomycin level will be ordered for 12/26/24 unless clinically indicated sooner. (Pharmacy will order) We will follow patient renal function, vancomycin levels and doses with you during the course of therapy. Additional recommendations will appear in follow up notes. If you have any questions, please contact pharmacy at [phone]. Age: [age] year old Allergies: ALLERGIES Allergen Reactions Ramelteon Mental Status Change Last 3 Encounter Wt Readings: Date: Wt: 12/24/2024 107.7 kg (237 lb 7 oz) 12/11/2024 108.2 kg (238 lb 9.6 oz) 11/14/2024 105.2 kg (232 lb) Last 1 Encounter Ht Readings: Date: Ht: 11/14/2024 180.3 cm (5' 11) CrCl: 65.9 mL/min Temp (24hrs), Av.4 ?C (97.5 ?F), Min:36.4 ?C (97.5 ?F), Max:36.4 ?C (97.5 ?F) - Current Temp: 36.4 ?C (97.5 ?F) Labs BUN (mg/dL) Date Value 12/24/2024 20 12/11/2024 14 10/23/2024 21 Creatinine (mg/dL) Date Value 12/24/2024 1.08 12/11/2024 0.86 10/23/2024 1.01 WBC (k/uL) Date Value 12/24/2024 8.56 12/11/2024 7.76 10/23/2024 6.96 Vancomycin Levels: No results found for: BETHANIE Felix [facility] metabolic 2000 panelon 12-24-2024 Albumin [Mass/Vol] 3.9 g/dL Normal 3.9-4.9 [facility] Comment on above: Order Comment: Speci men Type: BLOOD SPECIMEN [facility] Address: [address] [place] [address] Performed By: #### 2 4321-2, #### [facility]AT[facility] CLIA [id number] [address] [place] [address] [place] ALP [Catalytic activity/Vol] 87 U/L Normal 38-113 [facility] Comment on above: Order Comment: Speci men Type: BLOOD SPECIMEN [facility] Address: [address] [place] [address] Performed By: #### 2 432-2, #### [facility] CLIA [id number] [address] [place] [address] [place] ALT [Catalytic activity/Vol] 14 U/L Normal 10-54 [facility] Comment on above: Order Comment: Speci men Type: BLOOD SPECIMEN [facility] Address: [address] [place] [address] Performed By: #### 2 4321-2, #### [facility] CLIA [id number] [address] [place] [address] [place] Anion gap [Moles/Vol] 13 mmol/L Normal 8-15 [facility] Comment on above: Order Comment: Speci men Type: BLOOD SPECIMEN [facility] Address: [address] [place] [address] Performed By: #### 2 4321-2, #### [facility] CLIA [id number] [address] [place] [address] [place] AST [Catalytic activity/Vol] 19 U/L Normal 14-40 [facility] Comment on above: Order Comment: Speci men Type: BLOOD SPECIMEN [facility] Address: [address] [place] [address] Performed By: #### 2 4321-2, #### [facility] CLIA [id number] [address] [place] [address] [place] Bilirubin [Mass/Vol] 0.2 mg/dL Normal 0.2-1.3 [facility] Comment on above: Order Comment: Speci men Type: BLOOD SPECIMEN [facility] Address: [address] [place] [address] Performed By: #### 2 4321-2, #### [facility] CLIA [id number] [address] [place] [address] [place] Calcium [Mass/Vol] 9.1 mg/dL Normal 8.5-10.2 [facility] Comment on above: Order Comment: Speci men Type: BLOOD SPECIMEN [facility] Address: [address] [place] [address] Performed By: #### 2 4321-2, #### [facility] CLIA [id number] [address] [place] [address] [place] Chloride [Moles/Vol] 99 mmol/L Normal 98-107 [facility] Comment on above: Order Comment: Speci men Type: BLOOD SPECIMEN [facility] Address: [address] [place] [address] Performed By: #### 2 432-2, #### [facility] CLIA [id number] [address] [place] [address] [place] CO2 [Moles/Vol] 23 mmol/L Normal 22-30 [facility] Comment on above: Order Comment: Speci men Type: BLOOD SPECIMEN [facility] Address: [address] [place] [address] Performed By: #### 2 4321-2, #### [facility] CLIA [id number] [address] [place] [address] [place] Creatinine [Mass/Vol] 1.08 mg/dL Normal 0.73-1.22 [facility] Comment on above: Order Comment: Speci men Type: BLOOD SPECIMEN [facility] Address: [address] [place] [address] Performed By: #### 2 4321-2, #### [facility] CLIA [id number] [address] [place] [address] [place] eGFRcr SerPlBld CKD-EPI 2020 69 mL/min/1.73m??? Normal >=60 [facility] Comment on above: Order Comment: Radha charles Type: BLOOD SPECIMEN [facility] Address: [address] [place] [address] Result Comment: Ekaterina mated Glomerular Filtration Rate (eGFR) is calculated using the 2020 CKD-EPI creatinine equation. This equation utilizes serum creatinine, sex, and age as parameters. The creatinine assay has traceable calibration to isotope dilution-mass spectrometry. Refer to KDIGO guidelines for clinical interpretation. In patients with unstable renal function, e.g. those with acute kidney injury, the eGFR may not accurately reflect actual GFR. Performed By: #### 2 432-2, #### [facility] CLIA [id number] [address] [place] [address] [place] Glucose [Mass/Vol] 98 mg/dL Normal 74-99 [facility] Comment on above: Order Comment: Radha charles Type: BLOOD SPECIMEN [facility] Address: [address] [place] [address] Result Comment: The [place] Diabetes Association (ADA) provides guidance for cutoff values for fasting glucose and random glucose. The ADA defines fasting as no caloric intake for at least 8 hours. Fasting plasma glucose results between 100 to 125 mg/dL indicate increased risk for diabetes (prediabetes). Fasting plasma glucose results greater than or equal to 126 mg/dL meet the criteria for diagnosis of diabetes. In the absence of unequivocal hyperglycemia, results should be confirmed by repeat testing. In a patient with classic symptoms of hyperglycemia or hyperglycemic crisis, random plasma glucose results greater than or equal to 200 mg/dL meet the criteria for diagnosis of diabetes. Reference: Standards of Medical Care in Diabetes 2016, [place] [employer] Association. Diabetes Care. 2016.39(Suppl 1). Performed By: #### 2 4321-2, #### [facility] CLIA [id number] [address] [place] [address] [place] Potassium [Moles/Vol] 4.7 mmol/L Normal 3.7-5.1 [facility] Comment on above: Order Comment: Speci men Type: BLOOD SPECIMEN [facility] Address: [address] [place] [address] Performed By: #### 2 4321-2, #### [facility] CLIA [id number] [address] [place] Protein [Mass/Vol] 7.5 g/dL Normal 6.3-8.0 [facility] Comment on above: Order Comment: Speci men Type: BLOOD SPECIMEN [facility] Address: [address] [place] [address] Performed By: #### 2 4321-2, #### [facility] CLIA [id number] [address] [place] [address] [place] Sodium [Moles/Vol] 135 mmol/L Low 136-144 [facility] Comment on above: Order Comment: Speci men Type: BLOOD SPECIMEN [facility] Address: [address] [place] [address] Performed By: #### 2 4321-2, #### [facility] CLIA [id number] [address] [place] [address] [place] Urea nitrogen [Mass/Vol] 20 mg/dL Normal 9-24 [facility] Comment on above: Order Comment: Speci men Type: BLOOD SPECIMEN [facility] Address: [address] [place] [address] Performed By: #### 2 4321-2, #### [facility] CLIA [id number] [address] [place] [address] [place] ED NOTEon 12-24-2024 ED NOTE HNO ID: [id number] Author: LUCHO MARES RN Service: Nursing Author Type: Registered Nurse Type: ED Notes Filed: 12/24/2024 18:45 Note Text: Assumed care of patient at this time. [facility] ED PROV NOTEon 12-24-2024 ED PROV NOTE HNO ID: [id number] Author: MELONIE HARRINGTON MD Service: Emergency Medicine Author Type: Physician Type: ED Provider Notes Filed: 12/25/2024 01:10 Note Text: ED Provider Note Patient Name: Zachary Short : 1945 SERVICE DATE: 12/24/24 History Patient presents with: Hematuria: Patient came to ER, coming in from home. States he believes he has a kidney infection again. Last one was 3-4 weeks ago. ABD pain, tightness. Burning with urination. Started last night and continued throughout the night. Not passing urine since this morning. Back is sore from fall today. Urinary Retention Weakness: Has had unsteady gait. States bilateral weakness has been getting worse over weeks. 79-year-old male who has history of hypertension, hyperlipidemia, prostate cancer, BPH on Proscar, previous anorectal cancer, and asthma who underwent recent TURP by Dr. Blanton on 11/28 d/c with no catheter after passing TOV on Augmentin BID x 3 days presents to the emergency department for 2-day duration of dysuria and difficulty voiding suspecting he may have a urinary tract infection. Appears he has grown Enterococcus faecalis previously on review of cultures and has been on ampicillin in September and Augmentin in October for this. Last night he did have gross hematuria and passed a clot. Bleeding seems to have subsided as his urine has been nonbloody today. He is otherwise on no anticoagulants. He also describes generalized weakness worsening over the last few weeks and today he suffered a fall in his garage after mowing the lawn while bringing the dumpster back into the house. Fell backwards striking his right shoulder on a nearby car. Stumbled again and fell into the snowblower. Ambulatory on arrival. Denies any other sites of pain or injury besides the right shoulder and otherwise has full range of motion. Did not hit his head or lose consciousness. 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 Only seasonal now PAST SURGICAL HISTORY Procedure Laterality Date - ARTHROPLASTY HEMIARTHROPLASTY 09/10/2011 left shoulder Ari arthroplasty - ARTHROPLASTY HEMIARTHROPLASTY 03/07/2012 left shoulder revision - COLONOSCOPY AND POLYPECTOMY 08/23/11 repeat 5 years - COLONOSCOPY FLX DX W/COLLJ SPEC WHEN PFRMD 10/19/2016 Normal colonoscopy-family history-5 year follow-up - NECK 07/17/2007 Anterior cervical discectomy allograft fusion on c-4,c-5,c-6 FAMILY HISTORY Problem Relation Age of Onset - Colon Cancer Father - Cancer Mother metastatic melanoma Social History Tobacco Use - Smoking status: Never Passive exposure: Never - Smokeless tobacco: Never Vaping Use - Vaping status: Never Used Substance and Sexual Activity - Alcohol use: Yes Comment: socially, 3-4 beers/year - Drug use: No - Sexual activity: Not Currently Partners: Female ALLERGIES Allergen Reactions - Ramelteon Mental Status Change Review of Systems Constitutional: Positive for fatigue. Negative for chills and fever. Respiratory: Negative for shortness of breath. Cardiovascular: Negative for chest pain. Gastrointestinal: Negative for vomiting. Genitourinary: Positive for dysuria and hematuria. Musculoskeletal: Positive for arthralgias. Negative for back pain and neck pain. Skin: Negative for color change. Allergic/Immunologic: Negative for immunocompromised state. Neurological: Positive for weakness. Hematological: Does not bruise/bleed easily. Psychiatric/Behavioral: Negative for confusion. Physical Exam Vitals BP Pulse Temp Temp src Resp SpO2 Weight Height 12/24/24 1816 12/24/24 1816 12/24/24 18112/24/24 18112/24/24 1816 12/24/24 18112/24/24 1813 -- 120/68 67 36.4 ?C (97.5 ?F) Oral 18 100 % 107.7 kg (237 lb 7 oz) Physical Exam Vitals and nursing note reviewed. Constitutional: General: He is awake. He is not in acute distress. Appearance: Normal appearance. He is well-developed and well-groomed. He is not ill-appearing, toxic-appearing or diaphoretic. HENT: Head: Normocephalic and atraumatic. Nose: Nose normal. Mouth/Throat: Mouth: Mucous membranes are moist. Cardiovascular: Rate and Rhythm: Normal rate and regular rhythm. Pulses: Normal pulses. Radial pulses are 2+ on the right side and 2+ on the left side. Dorsalis pedis pulses are 2+ on the right side and 2+ on t (more content not included)... [facility] ED Triage Noteon 12-24-2024 ED Triage Note HNO ID: [id number] Author: ISAMAR GARCIA MD Service: Emergency Medicine Author Type: Physician Type: ED Triage Notes Filed: 12/24/2024 18:35 Note Text: ED INTAKE NOTE Patient Name: Zachary Short Service Date: 12/24/24 BRIEF HPI: This is a 79 year old male who presents to the ED with: Hematuria Patient came to ER, coming in from home. States he believes he has a kidney infection again. Last one was 3-4 weeks ago. ABD pain, tightness. Burning with urination. Started last night and continued throughout the night. Not passing urine since this morning. Back is sore from fall today. Urinary Retention Weakness Has had unsteady gait. States bilateral weakness has been getting worse over weeks. Denies head strike or LOC. BRIEF EXAM: NAD Awake and Alert Non labored breathing Points to R shoulder as area of discomfort INITIAL WORKUP AND DECISION MAKING: Orders Placed This Encounter XR SHOULDER GENERAL 3V OR MORE AP/TRUE AP/OTHER RIGHT Urine w microscopic, relfex culture CBC w Diff CMP Magnesium Bladder scan [place] Provider examination performed via virtual platform with assistance from bedside clinician. SIGNATURE: Isamar Garcia MD [facility] EKGon 12-24-2024 Electrocardiogram Ventricular Rate : 6 1 BPM Atrial Rate : 61 BPM P-R Interval : 196 ms QRS Duration : 132 ms Q-T Interval : 420 ms QTC Calculation(Bazett) : 422 ms Calculated P [place] : 54 degrees Calculated R [place] : -47 degrees Calculated T [place] : 32 degrees NORMAL SINUS RHYTHM Confirmed by MELONIE HARRINGTON MD ([id number]) on 12/25/2024 1:10:34 AM NAME : ZACHARY SHORT PID : [id number] : 1945 Gender : Male Race : ORD : Procedure Date : Dec 24 2024 19:19:55 Edit Date : Dec 25 2024 01:10:36 Diagnosis: NORMAL SINUS RHYTHM Confirmed by MELONIE HARRINGTON MD ([id number]) on 12/25/2024 1:10:34 AM Test Reason : Location : 1 : ER ED Overread By : MELONIE HARRINGTON MD Edited By : MELONIE HARRINGTON MD Referred By : , Acquired by : leanne, Normal [facility] Ferritin SerPl-mCncon 2024 Ferritin [Mass/Vol] 261.4 ng/mL Normal 30.3-565.7 [facility] Comment on above: Order Comment: Speci men Type: BLOOD SPECIMEN [facility] [address] [address] [facility] [place] [id number] Performed By: #### 2 4321-2, 44952-6 #### [facility] CLIA [id number] [address] [place] [address] [facility] HISTORY PHYSICALon HISTORY PHYSICAL HNO ID: [id number] Author: ROCHELLE MEDELLIN PA-C Service: Hospital Medicine Author Type: Physician Medical Unit Secretary Type: H&P Filed: 12/24/2024 22:53 Note Text: -- Attestation signed by Ros Yeung MD at 12/25/2024 12:34 PM I have reviewed the chart and data for this patient. I agree with the history and physical, and discussed the outlined assessment and management with the ELMER. Signature: Ros Yeung MD Date: 12/25/2024 Time: 12:34 PM -- DEPARTMENT OF HOSPITAL MEDICINE HISTORY AND PHYSICAL EXAM SERVICE DATE: 12/24/2024 SERVICE TIME: 9:42 PM Primary Care Physician: Ailin Pierson MD NIGHT AND WEEKEND COVERAGE: [facility] COVERAGE: Days: [phone], please page attending physician. Nights: [phone], please page [facility] Night coverage pager [phone]. Subjective CHIEF COMPLAINT: blood in urine HPI: This is a 79 year old male with PMHx of HTN, HLD, GERD, BPH, prostate cancer s/p radiation with recent negative biopsy 11/28/24, and hx chronic urinary retention who presents with blood in urine. Patient was sent in by PCP for concerns of blood in his urine. Patient has been weak and suffered a fall onto his right shoulder today after losing his balance. He states he has felt lightheaded like his head is in the clouds. He endorses blood in his urine with numerous clots yesterday that has resolved with dysuria for a few days. He states he has been urinating more at night going about every 2 hrs. He endorses suprapubic pressure/discomfort. He recently underwent a TURP at [facility] on11/28/24 and had 8 days of bleeding thereafter. He has been having low back pain since a fall around [place] 2023 made worse by the fall today which he states is tolerable and declines oxycodone. His temp has been 99F max at home with no chills. He endorses chronic toe tingling and leg soreness. He denies smoking, endorses rare alcohol use and denies illicit drug use. He denies headaches, syncope, chest pain, shortness of breath, abdominal pain, nausea, vomiting, diarrhea, constipation, lower extremity edema. He desires to be a full code. ED course: Afebrile, BP 120/68, HR 67, RR 18 with SpO2 100% on RA. CBC with RBC 2.72, HANDH 9.7/28.6, MCV 105.1, MCH 35.7, ALC 0.79. CMP with sodium 135. Magnesium WNL. UA with cloudy clarity, 2+ hgb, 3+ protein, positive nitrites, 1+ LE, WBC >25, RBC 6-10, many bacteria. Urine culture pending. Lactate WNL. Blood cultures x2 pending. EKG read as NSR, LAD, LVH; Qtc 422. X-ray right shoulder unremarkable. Patient started on Vancomycin and Zosyn. Patient admitted to [facility] under the hospital medicine service for management of UTI. 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 Only seasonal now PAST SURGICAL HISTORY Procedure Laterality Date ARTHROPLASTY HEMIARTHROPLASTY 09/10/2011 left shoulder Ari arthroplasty ARTHROPLASTY HEMIARTHROPLASTY 03/07/2012 left shoulder revision COLONOSCOPY AND POLYPECTOMY 08/23/11 repeat 5 years COLONOSCOPY FLX DX W/COLLJ SPEC WHEN PFRMD 10/19/2016 Normal colonoscopy-family history-5 year follow-up NECK 07/17/2007 Anterior cervical discectomy allograft fusion on c-4,c-5,c-6 FAMILY HISTORY Problem Relation Age of Onset Colon Cancer Father Cancer Mother metastatic melanoma Social History Tobacco Use Smoking status: Never Passive exposure: Never Smokeless tobacco: Never Vaping Use Vaping status: Never Used Substance Use Topics Alcohol use: Yes Comment: socially, 3-4 beers/year Drug use: No PRIOR TO ADMISSION MEDICATIONS: Prior to Admission Medications Prescriptions Last Dose Informant Patient Reported? Taking? aspirin, enteric coated (ASPIRIN, ENTERIC COATED) 81 mg EC tablet Yes No Sig: Take 1 tablet by mouth once daily. Patient not taking: Reported on 06/26/2024 azelastine 0.1% nasal spray No No Sig: Use 1 [place] in each nostril two times a day. citalopram (CELEXA) 20 mg tablet No No Sig: Take 1 tablet by mouth once daily. colestipol (COLESTID) 1 gram tablet No No Sig: Take 1 tablet by mouth two times a day. ergocalciferol 50,000 unit capsule (VITAMIN D2, DRISDOL) No No Sig: Take 1 capsule by mouth two times a week. TO BE TAKEN ORALLY DIRECTED. Take 1 tablet by mouth twice weekly [id number], then decrease to 1 tablet weekly. finaster (more content not included)... Normal [facility] Iron and Iron binding capaci ty panelon 12-24-2024 Iron [Mass/Vol] 28 ug/dL Low 41-186 [facility] Comment on above: Order Comment: Speci men Type: BLOOD SPECIMEN Ordering Facility: [facility] Address: [address] [place] [address] Performed By: #### 5 0190-8 #### [facility] CLIA [id number] [address] [place] Iron binding capacity [Mass/Vol] 216 ug/dL Low 232-386 [facility] Comment on above: Order Comment: Speci men Type: BLOOD SPECIMEN Ordering Facility: [facility] Address: [address] [place] [address] Performed By: #### 5 0190-8 #### [facility] CLIA [id number] [address] [place] Iron/TIBC [Molar ratio] 13.0 % Low 15.0-57.0 [facility] Comment on above: Order Comment: Speci men Type: BLOOD SPECIMEN Ordering Facility: [facility] Address: [address] [place] [address] Performed By: #### 5 0190-8 #### [facility] CLIA [id number] [address] [place] [address] [place] Magnesium SerPl-mCncon 12-24 Magnesium [Mass/Vol] 1.9 mg/dL Normal 1.7-2.3 [facility] Comment on above: Order Comment: Speci men Type: BLOOD SPECIMEN Ordering Facility: [facility] Address: [address] [place] [address] Performed By: #### 2 4321-2, 17752-7 #### [facility] CLIA [id number] [address] [place] [address] [place] SEPSIS LACTATE W/ REFLEX (IN ITIAL)on 12-24-2024 Lactate [Moles/Vol] 0.9 mmol/L Normal 0.5-2.0 [facility] Comment on above: Order Comment: Speci men Type: BLOOD SPECIMENOrdering Facility: [facility] Address: [address] [place] [address] Performed By: #### S LACTR ####[facility] [id number] [address] [place] Urinalysis complete panel (U )on 12-24-2024 Bacteria LM.HPF (Urine sed) [#/Area] Many Abnormal None Seen [facility] Comment on above: Order Comment: Speci men Type: URINE SPECIMENOrdering Facility: [facility] Address: [address] [place] [address] Performed By: #### 6 30-4 ####[facility]CLIA [id number] [place] [address] [place]#### 36444-8 ####[facility] [id number] [place] [address] [place] Bilirubin Ql (U) Negative Normal Negative [facility] Comment on above: Order Comment: Speci men Type: URINE SPECIMENOrdering Facility: [facility] Address: [address] [place] [address] Performed By: #### 6 30-4 ####[facility]CLIA [id number] [address] [place]#### 68749-0 ####[facility] [id number] [address] [place] Clarity (Unsp spec) Cloudy Abnormal Clear [facility] Comment on above: Order Comment: Speci men Type: URINE SPECIMENOrdering Facility: [facility] Address: [address] [place] [address] Performed By: #### 6 30-4 ####[facility]CLIA [id number] [place] [address] [place] [facility] [place]#### 73876-7 ####[facility] [id number] [address] [place] Color (U) Yellow Normal Yellow [facility] Comment on above: Order Comment: Speci men Type: URINE SPECIMENOrdering Facility: [facility] Address: [address] [place] [address] Performed By: #### 6 30-4 ####[facility] LABCLIA [id number] [place] [address] [place]#### 30587-0 ####[facility] [id number] [place] [address] [place] Epithelial cells LM.HPF (Urine sed) [#/Area] Few Normal [facility] Comment on above: Order Comment: Speci men Type: URINE SPECIMENOrdering Facility: [facility] Address: [address] [place] [address] Performed By: #### 6 30-4 ####[facility]CLIA [id number] [place] [address] [place]#### 99085-3 ####[facility] [id number] [place] [address] [place] Glucose Test strip (U) [Mass/Vol] Negative Normal Negative [facility] Comment on above: Order Comment: Speci men Type: URINE SPECIMENOrdering Facility: [facility] Address: [address] [place] [address] Performed By: #### 6 30-4 ####[facility]CLIA [id number] [place] [address] [place]#### 39660-2 ####[facility] [id number] [place] [address] [place] Hemoglobin Ql (U) 2+ Abnormal Negative [facility] Comment on above: Order Comment: Speci men Type: URINE SPECIMENOrdering Facility: [facility] Address: [address] [place], [place] [address] Performed By: #### 6 30-4 ####[facility] LABCLIA [id number] [place] [address] [place]#### 90118-3 ####[facility] [id number] [place] [address] [place] Ketones Ql (U) Negative Normal Negative [facility] Comment on above: Order Comment: Speci men Type: URINE SPECIMENOrdering Facility: [facility] Address: [address] [place] [address] Performed By: #### 6 30-4 ####[facility]CLIA [id number] [place] [address] [place]#### 46139-3 ####[facility] [id number] [place] [address] [place] Leukocyte esterase Test strip Ql (U) 1+ Abnormal Negative [facility] Comment on above: Order Comment: Speci men Type: URINE SPECIMENOrdering Facility: [facility] Address: [address] [place] [address] Performed By: #### 6 30-4 ####[facility]CLIA [id number] [place] [address] [place]#### 26322-3 ####[facility] [id number] [place] [address] [place] Nitrite Ql (U) Positive Abnormal Negative [facility] Comment on above: Order Comment: Speci men Type: URINE SPECIMENOrdering Facility: [facility] Address: [address] [place] [address] Performed By: #### 6 30-4 ####[facility]CLIA [id number] [place] [address] [place]#### 66102-1 ####[facility] [id number] [place] [address] [place] pH (U) 6.0 [pH] Normal 5.0-8.0 [facility] Comment on above: Order Comment: Speci men Type: URINE SPECIMENOrdering Facility: [facility] Address: [address] [place] [address] Performed By: #### 6 30-4 ####[facility] LABCLIA [id number] [place] [address] [place]#### 71869-5 ####[facility] [id number] [place] [address] [place] Protein (U) [Mass/Vol] 3+ Abnormal Negative [facility] Comment on above: Order Comment: Speci men Type: URINE SPECIMENOrdering Facility: [facility] Address: [address] [place] [address] Performed By: #### 6 30-4 ####[facility] LABCLIA [id number] [place] [address] [place]#### 19258-8 ####[facility] [id number] [place] [address] [place] RBC LM.HPF (Urine sed) [#/Area] 6-10 /HPF Abnormal 0-3 /HPF [facility] Comment on above: Order Comment: Speci men Type: URINE SPECIMENOrdering Facility: [facility] Address: [address] [place] [address] Performed By: #### 6 30-4 ####[facility] LABCLIA [id number] [place] [address] [place]#### 89731-7 ####[facility] [id number] [place] [address] [place] Specific gravity (U) [Rel density] 1.025 Normal 1.005-1.030 [facility] Comment on above: Order Comment: Speci men Type: URINE SPECIMENOrdering Facility: [facility] Address: [address] [place] [address] Performed By: #### 6 30-4 ####[facility]CLIA [id number] [place] [address] [place]#### 33816-8 ####[facility] [id number] [place] [address] [place] Urobilinogen Ql (U) 0.2 EU/dL Normal 0.2-1.0 EU/dL [facility] Comment on above: Order Comment: Speci men Type: URINE SPECIMENOrdering Facility: [facility] Address: [address] [place] [address] Performed By: #### 6 30-4 ####[facility]CLIA [id number] [address] [place]#### 49806-0 ####[facility] [id number] [place] [address] [place] WBC LM.HPF (Urine sed) [#/Area] /[HPF] Abnormal 0-5 /HPF [facility] Comment on above: Order Comment: Speci men Type: URINE SPECIMENOrdering Facility: [facility] Address: [address] [place] [address] Performed By: #### 6 30-4 ####[facility]CLIA [id number] [address] [place]#### 68174-8 ####[facility] [id number] [address] [place] XR SHLDR >/=3V AP/RIKI AP/OTH R RTon 12-24-2024 XR SHLDR >/=3V AP/RIKI AP/OTHR RT * * *Final Report* * * DATE OF EXAM: Dec 24 2024 8:25PM MDX 5253 - XR SHLDR >/=3V AP/RIKI AP/OTHR RT / PROCEDURE REASON: Trauma * * * * Physician Interpretation * * * * EXAMINATION: XR SHLDR >/=3V AP/RIKI AP/OTHR RT CLINICAL HISTORY: Trauma Technique: XR SHLDR >/=3V AP/RIKI AP/OTHR RT -- RIGHT with 3 views on 3 images Comparison: None RESULT: No acute fracture or dislocation. Right acromioclavicular and glenohumeral joint space narrowing with marginal osteophytes. IMPRESSION: No acute fracture. Degenerative disease of the right shoulder. Slitter Cut Off Operator: ROCÍO Transcribe Date/Time: Dec 24 2024 8:43P Dictated by : SANTHOSH GUEVARA MD This examination was interpreted and the report reviewed and electronically signed by: SANTHOSH GUEVARA MD on Dec 24 2024 8:44PM EST [id number] [facility] CT CHEST WO IVCONon 12-20-19 CT CHEST WO IVCON * * *Final Report* * * DATE OF EXAM: Dec 19 2024 11:51AM [facility] 0541 - CT CHEST WO IVCON / PROCEDURE REASON: Aortic dilatation * * * * Physician Interpretation * * * * EXAMINATION: CHEST CT WITHOUT CONTRAST CLINICAL HISTORY: Aortic dilatation Technique: Spiral CT acquisition of the chest from the thoracic inlet to the upper abdomen without contrast. MQ: [id number] CT Radiation dose: Integrated Dose-length product (DLP) for this visit = 442 mGy*cm CT Dose Reduction Employed: Automated exposure control(AEC) and iterative recon Comparison: CT chest performed at outside facility on 06/19/2024. RESULT: Limitations: None. Lines, tubes, and devices: None. Lung parenchyma and airways: Mild subpleural reticulations and traction bronchiectasis in the medial RIGHT lower lobe favored to be secondary to adjacent thoracic spine marginal endplate osteophytes. There is a 6 mm perifissural triangular nodule in the RIGHT lower lobe on series 6 image 135, unchanged. There is also a 6 mm subpleural nodule in the middle lobe on series 6 image 135 that is unchanged. Pleural space: No pleural effusion. No pleural thickening. Lower neck, lymph nodes, and mediastinum: The imaged thyroid gland is normal. No lymphadenopathy in the supraclavicular, axillary, mediastinal, or hilar regions. Heart, pericardium, and thoracic vessels: The ascending thoracic aorta is mildly ectatic measuring up to 4.0 cm caliber at the level the RIGHT main pulmonary artery, unchanged remeasure the same plane on 06/19/2024. Aorta measures 4.2 cm in caliber at the level of the sinuses of Valsalva. Mild thoracic aortic atherosclerosis. The cardiac chambers are normal in size. Coronary artery atherosclerotic calcifications are noted, although the study is not optimized for coronary assessment. No pericardial effusion or thickening. Bones and soft tissues: Partially imaged LEFT shoulder arthroplasty. Upper abdomen: Moderate sliding hiatal hernia. Localizer images: No additional findings. IMPRESSION: 1. Mild ectasia of the ascending thoracic aorta measuring up to 4.0 cm in caliber. 2. Moderate sliding hiatal hernia. 3. Unchanged 6 mm pulmonary nodules in the RIGHT lower and middle lobes. These are most likely benign lymph nodes, but recommend additional follow-up chest CT in 12 months to confirm stability according to Fleischner Society guidelines. ACTIONABLE RESULT: FOLLOW-UP Acuity: Actionable Findings: Thoracic-Lung nodules Routing code: RI_1 Recommendation: CT Chest WO IVCON Time Frame: In one year. COMMUNICATION: Results will be communicated with the ordering provider via [facility] staff message or phone message by [facility] within 2 business days of report finalization. --END OF FINDING-- Slitter Cut Off Operator: PSCB Transcribe Date/Time: Dec 27 2024 4:13P Dictated by : SULTANA GUZMÁN MD This examination was interpreted and the report reviewed and electronically signed by: SULTANA GUZMÁN MD on Dec 27 2024 4:24PM EST [id number] ACTIONABLE Invalid Interpretation Code [facility] Jluis 12-18-2024 HUMA Telephone (UROLMD) -- ZACHARY SHORT ([id number]) 1945 M Date Time Provider Department 12/18/24 JUAN BLANTON JR UROLMD During your visit today, we recorded the following information about you: Destinee Cloud RN 12/18/2024 1:23 PM Addendum Patient calling and had the Medicare Outpatient Observation notice. I called back and gave billing number to patient. Left message about billing # [phone]. Allergies As of Date: 12/18/2024 Noted Allergy Reaction RAMELTEON 05/22/2024 1 - Mental Status Change Date Reviewed: 12/17/2024 Reviewed by: Nini Sheriff APRN.DIRECTOR OF COMPENSATION - Fully Assessed Prescriptions as of 12/18/2024 - finasteride (PROSCAR) 5 mg tablet Take 1 tablet by mouth once daily. - colestipol (COLESTID) 1 gram tablet Take 1 tablet by mouth two times a day. - citalopram (CELEXA) 20 mg tablet Take 1 tablet by mouth once daily. - tamsulosin (FLOMAX) 0.4 mg Take 1 capsule by mouth two times a day. - oxyCODONE-acetaminophen 5-325 mg (PERCOCET) Take 1-2 tablets by mouth every 4 hours as needed (for pain). - azelastine 0.1% nasal spray Use 1 [place] in each nostril two times a day. - lisinopril-hydroCHLOROthia zide (ZESTORETIC) 10-12.5 mg per tablet Take 1 tablet by mouth once daily. - ergocalciferol 50,000 unit capsule (VITAMIN D2, DRISDOL) Take 1 capsule by mouth two times a week. TO BE TAKEN ORALLY DIRECTED. Take 1 tablet by mouth twice weekly [id number], then decrease to 1 tablet weekly. - naproxen (NAPROSYN) 500 mg tablet Take 1 tablet by mouth two times a day as needed (for pain/inflammation). Take with food. - polyethylene glycol 3350 (MIRALAX) 17 gram/dose powder Take 17 g by mouth once daily. Dissolve dose in 4 - 8 ounces of liquid and take as directed. - aspirin, enteric coated (ASPIRIN, ENTERIC COATED) 81 mg EC tablet Take 1 tablet by mouth once daily. Problem List As Of Date 12/18/2024 Noted Resolved Mixed hyperlipidemia [E78.2] 11/09/2005 Unspecified Asthma [J45.909] 11/09/2005 Personal history of other malignant neoplasm of*03/31/2006 Cervical Spondylosis without Myelopathy [M47.81* Family History of Malignant Neoplasm of Gastroi*05/16/2008 Primary Localized Osteoarthrosis, Shoulder Quin*05/16/2008 ACTINIC KERATOSIS (Premalignant AK) [L57.0] 05/17/2008 Other Seborrheic Keratosis [L82.1] 05/17/2008 09/15/2009 ACTINIC DAMAGE///CHR SOLAR SKIN DAMAGE NOS [L57*05/17/2008 09/15/2009 Rosacea [L71.9] 05/17/2008 Primary hypertension [I10] 09/15/2009 Obesity [E66.9] 09/15/2009 Irritated//Inflamed Seborrheic Keratosis [L82.0]09/23/2009 Solar lentigo [L81.4] 09/23/2009 Bladder Neck Obstruction [N32.0] 10/30/2009 Hypertrophy of prostate with urinary obstructio*05/28/2010 Arthritis of shoulder region, left, degenerativ*08/03/2011 Benign neoplasm of rectum and anal canal [D12.8*08/23/2011 Pain in joint, shoulder region [M25.519] 10/21/2011 Chronic knee pain [M25.569, G89.29] 02/28/2017 Preop examination [Z01.818] 11/21/2023 Elevated prostate specific antigen (PSA) [R97.2*11/21/2023 11/29/2023 Obesity, Class I, BMI 30-34.9 [E66.811] 11/21/2023 Prostate cancer (HCC) [C61] 11/29/2023 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 2 mg/dL [facility] Chloride [Moles/Vol] 103 mmol/L 98 - 10 7 mmol/L [facility] CO2 [Moles/Vol] 23 mmol/L 22 - 30 mmol/L [facility] Creatinine [Mass/Vol] 0.86 mg/dL 0.73 - 1.22 mg/dL [facility] GFR/1.73 sq M.predicted among non-blacks MDRD (S/P/Bld) [Vol rate/Area] 87 mL/min/{1.73_m2} - PINF [facility] Comment on above: Estimated Glomerular Filtration Rate (eGFR) is calculated using the 2020 CKD-EPI creatinine equation. This equation utilizes serum creatinine, sex, and age as parameters. The creatinine assay has traceable calibration to isotope dilution-mass spectrometry. Refer to KDIGO guidelines for clinical interpretation. In patients with unstable renal function, e.g. those with acute kidney injury, the eGFR may not accurately reflect actual GFR. Glucose [Mass/Vol] 98 mg/dL 74 - 99 mg/dL [facility] Comment on above: The [place] Diabete s Association (ADA) provides guidance for cutoff values for fasting glucose and random glucose. The ADA defines fasting as no caloric intake for at least 8 hours. Fasting plasma glucose results between 100 to 125 mg/dL indicate increased risk for diabetes (prediabetes). Fasting plasma glucose results greater than or equal to 126 mg/dL meet the criteria for diagnosis of diabetes. In the absence of unequivocal hyperglycemia, results should be confirmed by repeat testing. In a patient with classic symptoms of hyperglycemia or hyperglycemic crisis, random plasma glucose results greater than or equal to 200 mg/dL meet the criteria for diagnosis of diabetes. Reference: Standards of Medical Care in Diabetes 2016, [place] [employer]. Diabetes Care. 2016.39(Suppl 1). Interpretation and review of laboratory results Normal [facility] Potassium [Moles/Vol] 4.5 mmol/L 3.7 - 5.1 mmol/L [facility] Sodium [Moles/Vol] 137 mmol/L 136 - 144 mmol/L [facility] Urea nitrogen [Mass/Vol] 14 mg/dL 9 - 24 mg/dL [facility] Anion gap [Moles/Vol] 11 mmol/L Normal 8-15 [facility] Comment on above: Order Comment: Speci men Type: URINE SPECIMEN Ordering Facility: [facility] Address: [address] [place] [address] Performed By: #### U A #### [facility] CLIA [id number] [address] [place] [address] [place] Calcium [Mass/Vol] 9.1 mg/dL Normal 8.5-10.2 [facility] Comment on above: Order Comment: Speci men Type: URINE SPECIMEN Ordering Facility: [facility] Address: [address] [place] [address] Performed By: #### U A #### [facility] CLIA [id number] [address] [place] [address] [place] Chloride [Moles/Vol] 103 mmol/L Normal 98-107 [facility] Comment on above: Order Comment: Speci men Type: URINE SPECIMEN Ordering Facility: [facility] Address: [address] [place] [address] Performed By: #### U A #### [facility] CLIA [id number] [address] [place] [address] [place] CO2 [Moles/Vol] 23 mmol/L Normal 22-30 [facility] Comment on above: Order Comment: Speci men Type: URINE SPECIMEN Ordering Facility: [facility] Address: [address] [place] [address] Performed By: #### U A #### [facility] CLIA [id number] [address] [place] [address] [place] Creatinine [Mass/Vol] 0.86 mg/dL Normal 0.73-1.22 [facility] Comment on above: Order Comment: Speci men Type: URINE SPECIMEN Ordering Facility: [facility] Address: [address] [place] [address] Performed By: #### U A #### [facility] CLIA [id number] 35 [place] [address] [place] eGFRcr SerPlBld CKD-EPI 2020 87 mL/min/1.73m??? Normal >=60 [facility] Comment on above: Order Comment: Speci men Type: URINE SPECIMEN Ordering Facility: [facility] Address: [address] [place] [address] Result Comment: Ekaternia mated Glomerular Filtration Rate (eGFR) is calculated using the 2020 CKD-EPI creatinine equation. This equation utilizes serum creatinine, sex, and age as parameters. The creatinine assay has traceable calibration to isotope dilution-mass spectrometry. Refer to KDIGO guidelines for clinical interpretation. In patients with unstable renal function, e.g. those with acute kidney injury, the eGFR may not accurately reflect actual GFR. Performed By: #### U A #### [facility] CLIA [id number] [address] [place] [address] [place] Glucose [Mass/Vol] 98 mg/dL Normal 74-99 [facility] Comment on above: Order Comment: Speci men Type: URINE SPECIMEN Ordering Facility: [facility] Address: [address] [place] [address] Result Comment: The [place] [employer] (ADA) provides guidance for cutoff values for fasting glucose and random glucose. The ADA defines fasting as no caloric intake for at least 8 hours. Fasting plasma glucose results between 100 to 125 mg/dL indicate increased risk for diabetes (prediabetes). Fasting plasma glucose results greater than or equal to 126 mg/dL meet the criteria for diagnosis of diabetes. In the absence of unequivocal hyperglycemia, results should be confirmed by repeat testing. In a patient with classic symptoms of hyperglycemia or hyperglycemic crisis, random plasma glucose results greater than or equal to 200 mg/dL meet the criteria for diagnosis of diabetes. Reference: Standards of Medical Care in Diabetes 2016, [place] [employer]. Diabetes Care. 2016.39(Suppl 1). Performed By: #### U A #### [facility] CLIA [id number] [address] [place] [address] [place] Potassium [Moles/Vol] 4.5 mmol/L Normal 3.7-5.1 [facility] Comment on above: Order Comment: Speci men Type: URINE SPECIMEN Ordering Facility: [facility] Address: [address] [place] [address] Performed By: #### U A #### [facility] CLIA [id number] [address] [place] [address] [place] Sodium [Moles/Vol] 137 mmol/L Normal 136-144 [facility] Comment on above: Order Comment: Speci men Type: URINE SPECIMEN Ordering Facility: [facility] Address: [address] [place] [address] Performed By: #### U A #### [facility] CLIA [id number] [address] [place] [address] [place] Urea nitrogen [Mass/Vol] 14 mg/dL Normal 9-24 [facility] Comment on above: Order Comment: Speci men Type: URINE SPECIMEN Ordering Facility: [facility] Address: [address] [place] [address] Performed By: #### U A #### [facility] CLIA [id number] [address] [place] [address] [place] CBC W Auto Differential pane l (Bld)on 12-11-2024 Basophils (Bld) [#/Vol] 0.07 10*3/uL [facility] Basophils/100 WBC (Bld) 0.9 % [facility] Differential cell count method Nom (Bld) Auto [facility] Eosinophils (Bld) [#/Vol] 0.32 10*3/uL [facility] Eosinophils/100 WBC (Bld) 4.1 % [facility] Erythrocyte distribution width (RBC) [Ratio] 12.9 % 11.5 - 15.0 % [facility] Hematocrit (Bld) [Volume fraction] 31.6 % Low 39.0 - 51.0 % [facility] Hemoglobin (Bld) [Mass/Vol] 10.4 g/dL Low 13.0 - 17.0 g/dL [facility] Immature granulocytes (Bld) [#/Vol] 0.04 10*3/uL [facility] Immature granulocytes/100 WBC (Bld) 0.5 % [facility] Interpretation and review of laboratory results Abnormal [facility] Lymphocytes (Bld) [#/Vol] 1.02 10*3/uL [facility] Lymphocytes/100 WBC (Bld) 13.1 % [facility] MCH (RBC) [Entitic mass] 36 pg High 26.0 - 34.0 pg [facility] MCHC (RBC) [Mass/Vol] 32.9 g/dL 30.5 - 36.0 g/dL [facility] MCV (RBC) [Entitic vol] 109.3 fL High 80.0 - 100.0 fL [facility] Monocytes (Bld) [#/Vol] 0.71 10*3/uL [facility] Monocytes/100 WBC (Bld) 9.1 % [facility] Neutrophils (Bld) [#/Vol] 5.6 10*3/uL [facility] Neutrophils/100 WBC (Bld) 72.3 % [facility] Nucleated RBC (Bld) [#/Vol] NINF [facility] Nucleated RBC/100 WBC (Bld) [Ratio] 0 % /100 WBC [facility] Platelet mean volume (Bld) [Entitic vol] 9.3 fL 9.0 - 12.7 fL [facility] Platelets (Bld) [#/Vol] 237 10*3/uL [facility] RBC (Bld) [#/Vol] 2.89 10*6/uL Low 4.20 - 6.0 0 m/uL [facility] WBC (Bld) [#/Vol] 7.76 10*3/uL [facility] Basophils (Bld) [#/Vol] 0.07 10*3/uL Normal <0.11 [facility] Comment on above: Order Comment: Speci men Type: URINE SPECIMEN Ordering Facility: [facility] Address: [address] [place] [address] Performed By: #### U A #### [facility] CLIA [id number] [address] [place] [address] [place] Basophils/100 WBC (Bld) 0.9 % Normal [facility] Comment on above: Order Comment: Speci men Type: URINE SPECIMEN Ordering Facility: [facility] Address: [address] [place] [address] Performed By: #### U A #### [facility] CLIA [id number] [address] [place] [address] [place] Differential cell count method Nom (Bld) Auto Normal [facility] Comment on above: Order Comment: Speci men Type: URINE SPECIMEN Ordering Facility: [facility] Address: [address] [place] [address] Performed By: #### U A #### [facility] CLIA [id number] [address] [place] [address] [place] Eosinophils (Bld) [#/Vol] 0.32 10*3/uL Normal <0.46 [facility] Comment on above: Order Comment: Speci men Type: URINE SPECIMEN Ordering Facility: [facility] Address: [address] [place] [address] Performed By: #### U A #### [facility] CLIA [id number] [address] [place] [address] [place] Eosinophils/100 WBC (Bld) 4.1 % Normal [facility] Comment on above: Order Comment: Speci men Type: URINE SPECIMEN Ordering Facility: [facility] Address: [address] [place] [address] Performed By: #### U A #### [facility] CLIA [id number] [address] [place] [address] [place] Erythrocyte distribution width (RBC) [Ratio] 12.9 % Normal 11.5-15.0 [facility] Comment on above: Order Comment: Speci men Type: URINE SPECIMEN Ordering Facility: [facility] Address: [address] [place] [address] Performed By: #### U A #### [facility] CLIA [id number] [address] [place] [address] [place] Hematocrit (Bld) [Volume fraction] 31.6 % Low 39.0-51.0 [facility] Comment on above: Order Comment: Speci men Type: URINE SPECIMEN Ordering Facility: [facility] Address: [address] [place] [address] Performed By: #### U A #### [facility] CLIA [id number] [address] [place] [address] [place] Hemoglobin (Bld) [Mass/Vol] 10.4 g/dL Low 13.0-17.0 [facility] Comment on above: Order Comment: Speci men Type: URINE SPECIMEN Ordering Facility: [facility] Address: [address] [place] [address] Performed By: #### U A #### [facility] CLIA [id number] [address] [place] [address] [place] Immature granulocytes (Bld) [#/Vol] 0.04 10*3/uL Normal <0.10 [facility] Comment on above: Order Comment: Speci men Type: URINE SPECIMEN Ordering Facility: [facility] Address: [address] [place] [address] Performed By: #### U A #### [facility] CLIA [id number] [address] [place] [address] [place] Immature granulocytes/100 WBC (Bld) 0.5 % Normal [facility] Comment on above: Order Comment: Speci men Type: URINE SPECIMEN Ordering Facility: [facility] Address: [address] [place] [address] Performed By: #### U A #### [facility] CLIA [id number] [address] [place] [address] [place] Lymphocytes (Bld) [#/Vol] 1.02 10*3/uL Normal 1.00-4.00 [facility] Comment on above: Order Comment: Speci men Type: URINE SPECIMEN Ordering Facility: [facility] Address: [address] [place] [address] Performed By: #### U A #### [facility] CLIA [id number] [address] [place] [address] [place] Lymphocytes/100 WBC (Bld) 13.1 % Normal [facility] Comment on above: Order Comment: Speci men Type: URINE SPECIMEN Ordering Facility: [facility] Address: [address] [place] [address] Performed By: #### U A #### [facility] CLIA [id number] [address] [place] [address] [place] MCH (RBC) [Entitic mass] 36.0 pg High 26.0-34.0 [facility] Comment on above: Order Comment: Speci men Type: URINE SPECIMEN Ordering Facility: [facility] Address: [address] [place] [address] Performed By: #### U A #### [facility] CLIA [id number] [address] [place] [address] [place] MCHC (RBC) [Mass/Vol] 32.9 g/dL Normal 30.5-36.0 [facility] Comment on above: Order Comment: Speci men Type: URINE SPECIMEN Ordering Facility: [facility] Address: [address] [place] [address] Performed By: #### U A #### [facility] CLIA [id number] [address] [place] [address] [place] MCV (RBC) [Entitic vol] 109.3 fL High 80.0-100.0 [facility] Comment on above: Order Comment: Speci men Type: URINE SPECIMEN Ordering Facility: [facility] Address: [address] [place] [address] Performed By: #### U A #### [facility] CLIA [id number] [address] [place] [address] [place] Monocytes (Bld) [#/Vol] 0.71 10*3/uL Normal <0.87 [facility] Comment on above: Order Comment: Speci men Type: URINE SPECIMEN Ordering Facility: [facility] Address: [address] [place] [address] Performed By: #### U A #### [facility] CLIA [id number] [address] [place] [address] [place] Monocytes/100 WBC (Bld) 9.1 % Normal [facility] Comment on above: Order Comment: Speci men Type: URINE SPECIMEN Ordering Facility: [facility] Address: [address] [place] [address] Performed By: #### U A #### [facility] CLIA [id number] [address] [place] [address] [place] Neutrophils (Bld) [#/Vol] 5.60 10*3/uL Normal 1.45-7.50 [facility] Comment on above: Order Comment: Speci men Type: URINE SPECIMEN Ordering Facility: [facility] Address: [address] [place] [address] Performed By: #### U A #### [facility] CLIA [id number] [address] [place] [address] [place] Neutrophils/100 WBC (Bld) 72.3 % Normal [facility] Comment on above: Order Comment: Speci men Type: URINE SPECIMEN Ordering Facility: [facility] Address: [address] [place] [address] Performed By: #### U A #### [facility] CLIA [id number] [address] [place] [address] [place] Nucleated RBC (Bld) [#/Vol] 10*3/uL Normal <0.01 [facility] Comment on above: Order Comment: Speci men Type: URINE SPECIMEN Ordering Facility: [facility] Address: [address] [place] [address] Performed By: #### U A #### [facility] CLIA [id number] [address] [place] [address] [place] Nucleated RBC/100 WBC (Bld) [Ratio] 0.0 /100 WBC Normal [facility] Comment on above: Order Comment: Speci men Type: URINE SPECIMEN Ordering Facility: [facility] Address: [address] [place] [address] Performed By: #### U A #### [facility] CLIA [id number] [address] [place] [address] [place] Platelet mean volume (Bld) [Entitic vol] 9.3 fL Normal 9.0-12.7 [facility] Comment on above: Order Comment: Speci men Type: URINE SPECIMEN Ordering Facility: [facility] Address: [address] [place] [address] Performed By: #### U A #### [facility] CLIA [id number] [address] [place] [address] [place] Platelets (Bld) [#/Vol] 237 10*3/uL Normal 150-400 [facility] Comment on above: Order Comment: Speci men Type: URINE SPECIMEN Ordering Facility: [facility] Address: [address] [place] [address] Performed By: #### U A #### [facility] CLIA [id number] [address] [place] [address] [place] RBC (Bld) [#/Vol] 2.89 10*6/uL Low 4.20-6.00 [facility] Comment on above: Order Comment: Speci men Type: URINE SPECIMEN Ordering Facility: [facility] Address: [address] [place] [address] Performed By: #### U A #### [facility] CLIA [id number] [address] [place] [address] WBC (Bld) [#/Vol] 7.76 10*3/uL Normal 3.70-11.00 [facility] Comment on above: Order Comment: Speci men Type: URINE SPECIMEN Ordering Facility: [facility] Address: [address] [place] [address] Performed By: #### U A #### [facility] CLIA [id number] [address] [place] [address] CNOVon 12-11-2024 CNOV Office Visit (INTMWS ) -- ZACHARY SHORT ([id number]) 1945 M Date Time Provider Department 12/11/24 11:40 AM AILIN PIERSON During your visit today, we recorded the following information about you: Pulse Respiration Blood pressure Weight 81/minute 16/minute 98/57 108.2 kg Ailin Pierson MD 12/11/2024 12:40 PM Signed We discussed your prostate health and recent surgery: - The pathology report from your prostate surgery showed no cancer in the fragments removed. The findings were benign, consistent with prostatic hyperplasia. - You no longer require a catheter and are urinating well. This is a significant improvement, and I?m glad to hear you are feeling better. - You experienced some bleeding after the procedure, which resolved after passing clots. You are now urinating without issues and able to control your bladder. Continue monitoring for any changes, and let us know if you experience new symptoms such as difficulty urinating or significant bleeding. 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 This is being monitored, as intervention is typically not required unless it reaches 5 cm. - I have ordered a CT scan of your chest (no contrast) to get a clearer picture of the aorta and its dilation. Please schedule and complete this test within the next month. - After the CT scan, you may need to follow up with a community service specialist for further evaluation. For now, this condition is not expected to cause you significant problems. - Your blood pressure and heart rate have been fluctuating. Please continue monitoring these at home and let us know if you experience symptoms such as dizziness, chest pain, or shortness of breath. We discussed your cancer treatment: - Your last PSA test after radiation therapy showed a significant decrease to 0.2, which is a positive sign. No further PSA tests have been done since then. Dr. Huffman is expected to follow up with you later this month to discuss your progress. We discussed your follow-up care: - Please complete the blood work I ordered at your convenience this month. - Keep your scheduled appointment in December. - I will see you back in 3 months to review your progress and any new test results. Please continue to avoid heavy lifting, using a weed eater, or prolonged use of a experience designer to prevent strain. Let us know if you have any new or worsening symptoms. Ailin Pierson MD 12/11/2024 5:08 PM Signed Reason for Visit Follow up HPI Zachary Short is a 79-year-old male with a history of prostate cancer and aortic dilation, presenting for follow-up after recent prostate surgery and cardiac complications. Zachary recently underwent prostate surgery performed by Dr. Pierson, during which he experienced cardiac complications. He reports that his heart rate was irregular, jumping up and down, leading to an extended recovery time of 3-4 hours and close monitoring by the anesthesiologist and other physicians. Zachary was informed that his heart rate dropped to 52 bpm at one point, causing concern among the medical team. He was given medication to stabilize his heart rate, which eventually allowed him to be moved to a regular room. Since the surgery, he has noticed fluctuations in his heart rate and blood pressure, with a recent reading of 117/68 mmHg and a heart rate of 56 bpm this morning, which later increased to 70-80 bpm. Prior to the surgery, Zachary was scheduled for an echocardiogram but canceled it based on information that it would be performed during his pre-hospital exam. However, the echocardiogram was not conducted as expected, leading to delays and confusion. Eventually, his urologist, Dr. Ruelas, facilitated the echocardiogram, which revealed aortic dilation with a maximal dimension of 4.1 cm. Zachary is seeking clarification on the implications of this finding and its potential impact on his irregular heart rate. Post-surgery, Zachary experienced significant bleeding for 8 days, with a particularly severe episode on the 8th day, which he describes as extremely thick and red. He reports that the bleeding caused a blockage in his urinary flow, which he managed to clear by applying pressure. A second similar episode occurred but has since resolved. He is now able to urinate without a catheter, although he wakes up every 2.5-3 hours at night to urinate to prevent leakage. He expresses satisfaction with his current urinary function and notes an improvement in his overall condition, including increased energy levels, as evidenced by his ability to mow the lawn recently. Zachary also mentions a significant reduction in his PSA levels to approximately 0.2 ng/mL following radiation therapy, although he has not had a recent PSA test. He is awaiting further information from Dr. Huffman regarding his cancer s (more content not included)... Normal [facility] ANES POSTPROC EVALon 025 ANES POSTPROC EVAL HNO ID: [id number] Author: JUAN SALGUERO DO Service: Anesthesiology Author Type: Physician Type: Anesthesia Postprocedure Evaluation Filed: 11/30/2024 17:04 Note Text: POST ANESTHESIA EVALUATION NOTE : 1945 Procedure Summary Date: 11/28/24 Room / Location: [facility] OR / [facility] OR Anesthesia Start: 1007 Anesthesia Stop: 1123 Procedure: CYSTOSCOPY, RESECTION PROSTATE TRANSURETHRAL (Prostate) Diagnosis: BPH with obstruction/lower urinary tract symptoms (BPH with obstruction/lower urinary tract symptoms [N40.1, N13.8]) Surgeons: Juan Blanton Jr., MD Responsible Provider: Juan Salguero DO Anesthesia Type: general ASA Status: 2 Anesthesia Type: general Airway Type: LMA Last Vitals Vitals Value Taken Time BP 128/75 11/28/24 1400 Temp 36 ?C (96.8 ?F) 11/28/24 1215 Pulse 68 11/28/24 1406 Resp 20 11/28/24 1406 SpO2 99 % 11/28/24 1406 Vitals shown include unfiled device data. Post Anesthesia Patient Status Patient Evaluation: PACU. PACU/ICU Patient Condition: stable. Anticipated Disposition: inpatient floor planned admission. Neurological Status: sleepy but arousable. Pulmonary Status: breathing comfortably on supplemental oxygen Airway Control: returned to baseline unsupported. Cardiovascular Status: stable. Pain Management: clinically adequate Postoperative Hydration: acceptable. Intraoperative Events: no significant anesthesia events Post Operative Nausea/Vomiting Status: no significant post operative nausea or vomiting Recommendation: continue current plan of care. Anesthesia Observations No Documentation SIGNATURE: Juan Salguero DO PATIENT NAME: Zachary Short DATE: November 30, 2024 TIME: 5:03 PM CSN: [id number] [facility] Jluis 11-30-2024 [facility] Telephone (AKURFL) -- HANZACHARY ([id number]) 1945 M Date Time Provider Department 11/30/24 JUAN BLANTON JR During your visit today, we recorded the following information about you: Juan Blanton Jr., MD 11/30/2024 10:00 AM Signed [facility] or 11/28/24 Fu with az 4 weeks Mor Cannon 12/03/2024 10:13 AM Signed PT called and was scheduled Thanks Allergies As of Date: 11/30/2024 Noted Allergy Reaction RAMELTEON 05/22/2024 1 - Mental Status Change Date Reviewed: 11/28/2024 Reviewed by: Mikala Miranda, LAY - Fully Assessed Reason for Visit: Appointment [186] Prescriptions as of 12/03/2024 - finasteride (PROSCAR) 5 mg tablet Take 1 tablet by mouth once daily. - colestipol (COLESTID) 1 gram tablet Take 1 tablet by mouth two times a day. - citalopram (CELEXA) 20 mg tablet Take 1 tablet by mouth once daily. - tamsulosin (FLOMAX) 0.4 mg Take 1 capsule by mouth two times a day. - oxyCODONE-acetaminophen 5-325 mg (PERCOCET) Take 1-2 tablets by mouth every 4 hours as needed (for pain). - azelastine 0.1% nasal spray Use 1 [place] in each nostril two times a day. - lisinopril-hydroCHLOROthia zide (ZESTORETIC) 10-12.5 mg per tablet Take 1 tablet by mouth once daily. - ergocalciferol 50,000 unit capsule (VITAMIN D2, DRISDOL) Take 1 capsule by mouth two times a week. TO BE TAKEN ORALLY DIRECTED. Take 1 tablet by mouth twice weekly [id number], then decrease to 1 tablet weekly. - naproxen (NAPROSYN) 500 mg tablet Take 1 tablet by mouth two times a day as needed (for pain/inflammation). Take with food. - polyethylene glycol 3350 (MIRALAX) 17 gram/dose powder Take 17 g by mouth once daily. Dissolve dose in 4 - 8 ounces of liquid and take as directed. - aspirin, enteric coated (ASPIRIN, ENTERIC COATED) 81 mg EC tablet Take 1 tablet by mouth once daily. Problem List As Of Date 11/30/2024 Noted Resolved Mixed hyperlipidemia [E78.2] 11/09/2005 Unspecified Asthma [J45.909] 11/09/2005 Personal history of other malignant neoplasm of*03/31/2006 Cervical Spondylosis without Myelopathy [M47.81* Family History of Malignant Neoplasm of Gastroi*05/16/2008 Primary Localized Osteoarthrosis, Shoulder Quin*05/16/2008 ACTINIC KERATOSIS (Premalignant AK) [L57.0] 05/17/2008 Other Seborrheic Keratosis [L82.1] 05/17/2008 09/15/2009 ACTINIC DAMAGE///CHR SOLAR SKIN DAMAGE NOS [L57*05/17/2008 09/15/2009 Rosacea [L71.9] 05/17/2008 Primary hypertension [I10] 09/15/2009 Obesity [E66.9] 09/15/2009 Irritated//Inflamed Seborrheic Keratosis [L82.0]09/23/2009 Solar lentigo [L81.4] 09/23/2009 Bladder Neck Obstruction [N32.0] 10/30/2009 Hypertrophy of prostate with urinary obstructio*05/28/2010 Arthritis of shoulder region, left, degenerativ*08/03/2011 Benign neoplasm of rectum and anal canal [D12.8*08/23/2011 Pain in joint, shoulder region [M25.519] 10/21/2011 Chronic knee pain [M25.569, G89.29] 02/28/2017 Preop examination [Z01.818] 11/21/2023 Elevated prostate specific antigen (PSA) [R97.2*11/21/2023 11/29/2023 Obesity, Class I, BMI 30-34.9 [E66.811] 11/21/2023 Prostate cancer (HCC) [C61] 11/29/2023 BPH with obstruction/lower urinary tract sympto*11/28/2024 Encounter Status:Closed by JUAN BLANTON on 11/30/24 [facility] OPERATIVE NOon 11-30-2024 OPERATIVE NO HNO ID: [id number] Author: JUAN BLANTON JR, MD Service: Urology Author Type: Physician Type: Operative Report Filed: 12/01/2024 08:05 Note Text: [facility] - Operative Report ZACHARY SHORT : 1945 AGE: 79. SEX: M PATIENT TYPE: V HOSP SVC: Surgical LOCATION: [facility] ATTENDING PHYSICIAN: Juan Blanton Jr, MD CSN NUMBER: [id number] DATE OF SURGERY/PROCEDURE: 11/28/2024 INCISION/PROCEDURE START TIME: 10:27 AM INCISION CLOSE/PROCEDURE END TIME: 11:09 AM PREOPERATIVE DIAGNOSIS: BPH with lower urinary tract symptoms. POSTOPERATIVE DIAGNOSIS: BPH with lower urinary tract symptoms. SURGEON: Juan Blanton Jr, MD DROP FORGER HELPER: No Additional Staff SURGERY/PROCEDURE: Cystoscopy, transurethral resection of the prostate. ANESTHESIA: General. COMPLICATIONS: None. HISTORY: Zachary Short is an 79-year-old gentleman with a history of BPH, now presents for endoscopic management. DESCRIPTION OF PROCEDURE: After being explained the risks, benefits, and alternatives of the procedure, the patient was correctly identified, taken to the operative suite, placed on the table in a dorsal lithotomy position. After a general anesthesia was induced, prepped and draped in a normal sterile fashion. The resectoscope was inserted transurethrally into the bladder, and resection was started on the small middle lobe. This was taken down and flushed with the trigone. Next, the bilateral lateral lobes were resected in their entirety down to the capsule. At this point, all the prostate chips were evacuated from the bladder and sent to lab for pathologic analysis. Hemostasis was achieved with fulguration of the prostatic fossa. At this point, the scope was removed. A three-way Mahoney catheter was inserted transurethrally into the bladder and hooked to CBI straight drain. At this point, the patient was reversed from anesthesia having tolerated the procedure well and afterward was taken to postoperative care unit for recovery. Juan Blanton Jr, MD MG:[id number] /[id number] Normal [facility] CNDSon 11-29-2024 [facility] HNO ID: [id number] Author: JUAN BLANTON JR, MD Service: Urology Author Type: Resident Type: Discharge Summary Filed: 11/30/2024 09:51 Note Text: -- Attestation signed by Juan Blanton Jr., MD at 11/30/2024 9:51 AM Discussed with the resident and agree with resident's findings and plan as documented in the resident's note. Juan Blanton Jr, MD -- DISCHARGE SUMMARY PATIENT NAME: Zachary Short ADMISSION DATE: 11/28/2024 DISCHARGE DATE: 11/29/2024 Attending Physician: Juan Blanton Jr.* Reason for Hospitalization: TURP Principal Problem: BPH with obstruction/lower urinary tract symptoms (POA: Yes) Resolved Problems: * No resolved hospital problems. * Operations During Hospitalization: TURP Hospital Course: Patient was admitted for the above surgery. Patient was transferred to the recovery unit and then to the regular nursing floor. Diet was slowly advanced as tolerated. Activity level was gradually increased. Pain was controlled on oral medications. The patient was then deemed fit for discharge. Patient passed void trial and went home without catheter. Labs and Procedures Pending at Discharge: No pending results. Consulting Teams During Hospitalization: none Patient Condition @ Discharge: Stable Discharge Disposition: Home with Self Care Information Provided to Patient: See discharge instructions Discharge Medications: Medication List PAUSE taking these medications aspirin, enteric coated 81 mg EC tablet Wait to take this until: December 03, 2024 Commonly known as: ASPIRIN, ENTERIC COATED START taking these medications amoxicillin-clavulanate potassium 875-125 mg per tablet Commonly known as: AUGMENTIN Take 1 tablet by mouth every 12 hours for 3 days. CONTINUE taking these medications azelastine 0.1% nasal spray Use 1 [place] in each nostril two times a day. citalopram 20 mg tablet Commonly known as: CeleXA Take 1 tablet by mouth once daily. colestipol 1 gram tablet Commonly known as: COLESTID Take 1 tablet by mouth two times a day. ergocalciferol (vitamin D2) 50,000 unit capsule Commonly known as: DRISDOL Take 1 capsule by mouth two times a week. TO BE TAKEN ORALLY DIRECTED. Take 1 tablet by mouth twice weekly [id number], then decrease to 1 tablet weekly. finasteride 5 mg tablet Commonly known as: PROSCAR lisinopril-hydroCHLOROthia zide 10-12.5 mg per tablet Commonly known as: ZESTORETIC Take 1 tablet by mouth once daily. oxyCODONE-acetaminophen 5-325 mg Commonly known as: PERCOCET polyethylene glycol 3350 17 gram/dose powder Commonly known as: MIRALAX Take 17 g by mouth once daily. Dissolve dose in 4 - 8 ounces of liquid and take as directed. tamsulosin 0.4 mg Commonly known as: FLOMAX Take 1 capsule by mouth two times a day. ASK your doctor about these medications naproxen 500 mg tablet Commonly known as: NAPROSYN Take 1 tablet by mouth two times a day as needed (for pain/inflammation). Take with food. Where to Get Your Medications These medications were sent to [facility] [place] [address] [address] [phone] [place] [address] amoxicillin-clavulanate potassium 875-125 mg per tablet Future Appointments: Follow Up with Dr Blanton TIME OF CARE: Discharge Management: I personally spent less than 30 minutes involved in the discharge management of this patient. SIGNATURE: Michael Dang MD DATE: November 29, 2024 TIME: 8:22 AM Normal [facility] ECG COMPLETEon 11-29-2024 ECG COMPLETE Ventricular Rate : 5 8 BPM Atrial Rate : 58 BPM P-R Interval : 200 ms QRS Duration : 134 ms Q-T Interval : 458 ms QTC Calculation(Bazett) : 449 ms Calculated P [place] : 61 degrees Calculated R [place] : -48 degrees Calculated T [place] : 36 degrees SINUS BRADYCARDIA WITH PREMATURE ATRIAL COMPLEXES LEFT AXIS DEVIATION NON-SPECIFIC INTRA-VENTRICULAR CONDUCTION BLOCK MINIMAL VOLTAGE CRITERIA FOR LVH, MAY BE NORMAL VARIANT ( [place] product ) CANNOT RULE OUT SEPTAL INFARCT , AGE UNDETERMINED ABNORMAL ECG NO PREVIOUS ECGS AVAILABLE Confirmed by KANU GONZALES MD ([id number]) on 11/29/2024 2:49:30 PM NAME : ZACHARY SHORT PID : [id number] : 1945 Gender : Male Race : ORD : [id number] Procedure Date : Nov 29 2024 07:56:13 Edit Date : Nov 29 2024 14:49:33 Diagnosis: SINUS BRADYCARDIA WITH PREMATURE ATRIAL COMPLEXES LEFT AXIS DEVIATION NON-SPECIFIC INTRA-VENTRICULAR CONDUCTION BLOCK MINIMAL VOLTAGE CRITERIA FOR LVH, MAY BE NORMAL VARIANT ( [place] product ) CANNOT RULE OUT SEPTAL INFARCT , AGE UNDETERMINED ABNORMAL ECG NO PREVIOUS ECGS AVAILABLE Confirmed by KANU GONZALES MD ([id number]) on 11/29/2024 2:49:30 PM Test Reason : Bradycardia Location : 200 : [facility] 5105 Overread By : KANU GONZALES MD Edited By : KANU GONZALES MD Referred By : JUAN BLANTON JR Acquired by : POORNIMA CHOW [facility] ANES PRE-OPon 11-28-2024 ANES PRE-OP HNO ID: [id number] Author: JUAN SALGUERO DO Service: Anesthesiology Author Type: Physician Type: Anesthesia Preprocedure Evaluation Filed: 11/28/2024 09:24 Note Text: ANESTHESIOLOGY DAY OF SURGERY NOTE : 1945 Procedure Information Date/Time: 11/28/24 1015 Procedure: CYSTOSCOPY, RESECTION PROSTATE TRANSURETHRAL (Prostate) Location: [place] OR 18 / [facility] Surgeons: Juan Blanton Jr., MD Estimated body mass index is 32.36 kg/m? as calculated from the following: Height as of 11/14/24: 180.3 cm (5' 11). Weight as of 11/14/24: 105.2 kg (232 lb). Most recent hematocrit and potassium results: Hematocrit 34.4 10/23/2024 Potassium 4.6 10/23/2024 Relevant Problems CARDIO (+) Primary hypertension NEURO-PSYCH (+) Personal history of other malignant neoplasm of skin Other (+) Arthritis of shoulder region, left, degenerative (+) Primary localized osteoarthrosis, shoulder region I - PHYSICAL EVALUATION AIRWAY Patient intubated: No. Tracheostomy tube not present Mallampati: II. TM distance: >3 FB. Neck ROM: full ROM without neurological symptoms. Mouth opening: adequate. Short neck: no. Thick neck: no DENTAL Dental findings: missing tooth/teeth. Dentures, upper: complete. Dentures, lower: partial. Additional exam findings: no II - ANESTHESIA PLAN ASA Score: 2 Anesthetic Plan: general Airway type: LMA The patient is not a current smoker. NPO Status: adequate Beta Ayaz Monitoring Plan Monitoring plan: standard ASA. Post Procedure Analgesic Plan Postoperative analgesic plan: multimodal analgesia and parenteral or oral opioids. Patient / Surrogate agrees to blood products: blood products not planned Significant changes in the patient condition since the History and Physical, not otherwise documented in primary service progress note: no. Potential Anesthesia issues that may suggest increased risk of complications or contraindication to planned procedure: none. Vitals Value Taken Time BP 113/76 11/28/24901 Pulse 61 11/28/24901 Resp 16 11/28/24901 Temp 36.3 ?C (97.3 ?F) 11/28/24901 SpO2 98 % 11/28/24901 Facility-Administered Medications as of 11/28/2024 Medication Dose Route Frequency lidocaine (PF) 10 mg/mL (1 %) 1-2 mg injection (XYLOCAINE) 0.1-0.2 mL INTRADERMAL PRN lactated ringers iv infusion 5-30 mL/hr INTRAVENOUS CONTINUOUS NaCl 0.9% iv flush bag 20 mL INTRAVENOUS PRN [COMPLETED] acetaminophen 975 mg tab(s) (TYLENOL) 975 mg ORAL Pre-Op Once [COMPLETED] celecoxib 400 mg cap(s) (CeleBREX) 400 mg ORAL Pre-Op Once ceFAZolin iv piggyback 2 g in D5W (iso-osmotic) 100 mL (ANCEF) 2 g INTRAVENOUS ONCE Outpatient Medications as of 11/28/2024 Medication Sig finasteride (PROSCAR) 5 mg tablet Take 1 tablet by mouth once daily. colestipol (COLESTID) 1 gram tablet Take 1 tablet by mouth two times a day. citalopram (CELEXA) 20 mg tablet Take 1 tablet by mouth once daily. tamsulosin (FLOMAX) 0.4 mg Take 1 capsule by mouth two times a day. oxyCODONE-acetaminophen 5-325 mg (PERCOCET) Take 1-2 tablets by mouth every 4 hours as needed (for pain). lisinopril-hydroCHLOROthia zide (ZESTORETIC) 10-12.5 mg per tablet Take 1 tablet by mouth once daily. azelastine 0.1% nasal spray Use 1 [place] in each nostril two times a day. ergocalciferol 50,000 unit capsule (VITAMIN D2, DRISDOL) Take 1 capsule by mouth two times a week. TO BE TAKEN ORALLY DIRECTED. Take 1 tablet by mouth twice weekly [id number], then decrease to 1 tablet weekly. naproxen (NAPROSYN) 500 mg tablet Take 1 tablet by mouth two times a day as needed (for pain/inflammation). Take with food. (Patient not taking: Reported on 06/26/2024) polyethylene glycol 3350 (MIRALAX) 17 gram/dose powder Take 17 g by mouth once daily. Dissolve dose in 4 - 8 ounces of liquid and take as directed. (Patient taking differently: Take 17 g by mouth as needed. Dissolve dose in 4 - 8 ounces of liquid and take as directed.) aspirin, enteric coated (ASPIRIN, ENTERIC COATED) 81 mg EC tablet Take 1 tablet by mouth once daily. (Patient not taking: Reported on 06/26/2024) I have interviewed and examined the patient. I have reviewed the medical record and/or the pre-anesthesia evaluation, pertinent labs, and test results. This contains updated information obtained within 48 hours of Surgery/Procedure. SIGNATURE: Juan Salguero DO PATIENT NAME: Zachary Short DATE: November 28, 2024 TIME: 9:24 AM CSN: [id number] Normal [facility] Pathology biopsy report Leno (Tiss)on 11-28-2024 AP DISCLAIMER Normal [facility] Comment on above: Order Comment: Speci men Type: TISSUE SPECIMENOrdering Facility: [facility] Address: [address] [place] [address] Result Comment: Ramon medina Developed Test (LDT) Disclaimer: Performance characteristics of immunohistochemical, immunofluorescent, and chromogenic in-situ hybridization tests have been determined by the performing laboratory within [facility]'s Rajat Lopez Pathology and Laboratory Medicine Department ([facility], [facility], [facility], [facility], [facility], [facility], or [facility]) in a manner consistent with CLIA requirements. One or more of these tests may not have been cleared or approved by the FDA. [facility] is regulated under CLIA as qualified to perform high-complexity testing. These tests are used for clinical purposes. These should not be regarded as investigational or for research. Positive and negative controls stain appropriately. Performed By: #### 6 6121-5 ####[facility] [id number] [address] CASE REPORT Normal [facility] Comment on above: Order Comment: Speci men Type: TISSUE SPECIMENOrdering Facility: [facility] Address: [address] [place] [address] Result Comment: Surg ica Pathology Report Case: [id number] Authorizing Provider: Juan Blanton Jr., Collected: 11/28/2024 11:07 AM Ordering Location: [facility] Received: 11/28/2024 02:50 PM Pathologist: Zachary Blackmon MD Specimen: Prostate, Chips Performed By: #### 6 6121-5 ####[facility] [id number] [address] STATES [facility] CLINICAL HISTORY Normal [facility] Comment on above: Order Comment: Speci men Type: TISSUE SPECIMENOrdering Facility: [facility] Address: [address] [place] [address] Result Comment: Pre- op diagnosis: BPH with obstruction/lower urinary tract symptoms [N40.1, N13.8] Performed By: #### 6 6121-5 ####[facility] [id number] [address] FINAL DIAGNOSIS Normal [facility] Comment on above: Order Comment: Speci men Type: TISSUE SPECIMENOrdering Facility: [facility] Address: [address] [place] [address] Result Comment: Sanjay menendez, transurethral resection: - Benign prostatic tissues. at 1007 EDT Performed By: #### 6 6121-5 ####[facility] LABORATORYCLIA [id number] [address] STATES [place] FINAL PERFORMING LAB Normal [facility] Comment on above: Order Comment: Speci men Type: TISSUE SPECIMENOrdering Facility: [facility] Address: [address] [place] [address] Result Comment: Diag nostic interpretation performed at: [facility], [address] [place] [address] CLIA# [id number] Hat Blocking Operator: Zachary Blackmon MD Performed By: #### 6 6121-5 ####[facility] LABORATORYCLIA [id number] [address] GROSS DESCRIPTION Normal [facility] Comment on above: Order Comment: Speci men Type: TISSUE SPECIMENOrdering Facility: [facility] Address: [address] [place] [address] Result Comment: Sanjay menendez, Chips Received in formalin and designated prostate chips are multiple fragments of jones-pink rubbery tissue 28.2 g and 10.0 x 9.0 x 2.0 cm. Grossly no firm areas are identified. Multiple product support representative sections are submitted in cassettes 1-8. KM November 29, 2024 8:31 AM Gross examination performed at [facility], [address] [place] [address] Performed By: #### 6 6121-5 ####[facility] LABORATORYCLIA [id number] [address] OF [facility] NURSING PROGon 11-22-2024 NURSING PROG HNO ID: [id number] Author: LACI ALEXANDRE APRN.DIRECTOR OF COMPENSATION Service: ? Author Type: Nurse Practitioner Type: Nursing Progress Note Filed: 11/22/2024 08:44 Note Text: -- Summary: PAT -- F/u on PAT concerns: ECHO completed 11/19/24 results reviewed. No further anesthesia concerns at this time. ECHO 11/19/24 CONCLUSIONS: - Exam indication: Abnormal ECG - The left ventricle is normal in size. Left ventricular systolic function is normal. EF = 55 ? 5% (2D 4-ch.). Normal left ventricular diastolic function. - The right ventricle is normal in size. Right ventricular systolic function is normal. - The visualized aorta is dilated with a maximal dimension of 4.1 cm. - Mild (1+) mitral valve regurgitation. - The patient has not had a prior CC echocardiographic exam for comparison. Normal [facility] ECHOon 11-19-2024 CONCLUSIONS: - Exam indication: Abnormal ECG - The left ventricle is normal in size. Left ventricular systolic function is normal. EF = 55 5% (2D 4-ch.). Normal left ventricular diastolic function. - The right ventricle is normal in size. Right ventricular systolic function is normal. - The visualized aorta is dilated with a maximal dimension of 4.1 cm. - Mild (1+) mitral valve regurgitation. - The patient has not had a prior CC echocardiographic exam for comparison. * * * Final * * * [facility] Echocardiography Report: Transthoracic Echo [facility] Date of service: 11/19/2024 11:34:12 AM Ordering physician: AILIN PIERSON Indication: Abnormal ECG Technologist: Kathia Ramos [facility] Interpreting physician: Oj Barton MD PATIENT: Name: ZACHARY SHORT : 1945 Age: 79 years Gender: M Primary rhythm: sinus. Height: 182.88 cm BSA: 2.35 m Weight: 108.41 kg BMI: 32.4 kg/m Heart rate 75 bpm Blood pressure 100/80 mmHg Color Doppler was utilized to interrogate the cardiac valves assessed and spectral Doppler was utilized to determine the flow velocities and pressure gradients reported in this exam. Myocardial strain analysis was performed in this exam to aid in the assessment of cardiac function. MEASUREMENTS: Value Indexed Normal Max aortic dimension 4.1 cm Ao < 3.8 Left atrial volume 42 ml (biplane A-L) 18 ml/m Harman <= 34 LV ID (diastole) 5.6 cm (2D) 2.39 cm/m LV ID (systole) 3.8 cm (2D) 1.60 cm/m IVS, leaflet tips 1.0 cm (2D) Posterior wall thickness 1.1 cm (2D) Left ventricular mass 235 g (2D) 100 g/m Global peak long strain -17.4 % LV stroke volume 76 ml (2D 4-ch.) LV end diastolic volume 137 ml (2D 4-ch.) 58.5 ml/m 34<=EDVi<75 LV end systolic volume 61 ml (2D 4-ch.) 26.1 ml/m Ejection Fraction 55 % (2D 4-ch.) EF > 52 FINDINGS: LEFT VENTRICLE The left ventricle is normal in size. Left ventricular systolic function is normal. Global LV myocardial strain is normal. Normal left ventricular diastolic function. Mitral annular lateral E/e': 10.0. Mitral annular septal E/e': 10.9. Wall Motion: All scored segments are normal. RIGHT VENTRICLE The right ventricle is normal in size. Right ventricular systolic function is normal. RV systolic tissue Doppler velocity is 9.0 cm/s. Tricuspid annular displacement is 2.3 cm. Estimated right ventricular systolic pressure is not reported due to an insufficient tricuspid regurgitation signal. Estimated right atrial pressure is not included as the IVC was not seen. LEFT ATRIUM The left atrial cavity is normal in size. RIGHT ATRIUM The right atrial cavity is normal in size. MITRAL VALVE The mitral valve leaflets are structurally normal. There is mild (1+) mitral valve regurgitation. The pressure half time is 49 msec. The peak mitral E/A ratio is 0.83. The average mitral E/e' ratio is 10.5. The mitral flow deceleration time is 169 msec. TRICUSPID VALVE The tricuspid valve leaflets are structurally normal. There is trace tricuspid valve regurgitation. AORTIC VALVE There is no aortic valve stenosis. There is no aortic valve regurgitation. Tricuspid aortic valve. There is mild thickening. There is mild calcification. The peak gradient is 4 mmHg (peak velocity = 97.0 cm/s). PULMONIC VALVE The pulmonic valve cusps are structurally normal. There is no pulmonic stenosis. There is trace pulmonic valve regurgitation. AORTA The visualized aorta is dilated. Measurements - Aortic valve annulus 2.6 cm. Sinus: 4.1 cm. Sinotubular junction 4.0 cm. Mid ascending aorta 4.1 cm. PULMONARY ARTERIES The pulmonary arteries are normal. INTERATRIAL SEPTUM There is no evidence of intracardiac shunting as detected by Doppler. INTERVENTRICULAR SEPTUM There is abnormal motion of the interventricular septum secondary to abnormal conduction. There is no flow through the interventricular septum as detected by Doppler. PERICARDIUM There is no pericardial effusion. There is an epicardial fat pad. [facility] Echocardiography Echocardiography Rep ort: Transthoracic Echo [facility] Date of service: 11/19/2024 11:34:12 AM Ordering physician: AILIN PIERSON Indication: Abnormal ECG Technologist: Kathia Ramos [facility] Interpreting physician: Oj Barton MD PATIENT: Name: ZACHARY SHORT : 1945 Age: 79 years Gender: M Primary rhythm: sinus. Height: 182.88 cm BSA: 2.35 m Weight: 108.41 kg BMI: 32.4 kg/m Heart rate 75 bpm Blood pressure 100/80 mmHg Color Doppler was utilized to interrogate the cardiac valves assessed and spectral Doppler was utilized to determine the flow velocities and pressure gradients reported in this exam. Myocardial strain analysis was performed in this exam to aid in the assessment of cardiac function. MEASUREMENTS: Value Indexed Normal Max aortic dimension 4.1 cm Ao < 3.8 Left atrial volume 42 ml (biplane A-L) 18 ml/m Har[place] <= 34 LV ID (diastole) 5.6 cm (2D) 2.39 cm/m LV ID (systole) 3.8 cm (2D) 1.60 cm/m IVS, leaflet tips 1.0 cm (2D) Posterior wall thickness 1.1 cm (2D) Left ventricular mass 235 g (2D) 100 g/m Global peak long strain -17.4 % LV stroke volume 76 ml (2D 4-ch.) LV end diastolic volume 137 ml (2D 4-ch.) 58.5 ml/m 34<=EDVi<75 LV end systolic volume 61 ml (2D 4-ch.) 26.1 ml/m Ejection Fraction 55 % (2D 4-ch.) EF > 52 FINDINGS: LEFT VENTRICLE The left ventricle is normal in size. Left ventricular systolic function is normal. Global LV myocardial strain is normal. Normal left ventricular diastolic function. Mitral annular lateral E/e': 10.0. Mitral annular septal E/e': 10.9. Wall Motion: All scored segments are normal. RIGHT VENTRICLE The right ventricle is normal in size. Right ventricular systolic function is normal. RV systolic tissue Doppler velocity is 9.0 cm/s. Tricuspid annular displacement is 2.3 cm. Estimated right ventricular systolic pressure is not reported due to an insufficient tricuspid regurgitation signal. Estimated right atrial pressure is not included as the IVC was not seen. LEFT ATRIUM The left atrial cavity is normal in size. RIGHT ATRIUM The right atrial cavity is normal in size. MITRAL VALVE The mitral valve leaflets are structurally normal. There is mild (1+) mitral valve regurgitation. The pressure half time is 49 msec. The peak mitral E/A ratio is 0.83. The average mitral E/e' ratio is 10.5. The mitral flow deceleration time is 169 msec. TRICUSPID VALVE The tricuspid valve leaflets are structurally normal. There is trace tricuspid valve regurgitation. AORTIC VALVE There is no aortic valve stenosis. There is no aortic valve regurgitation. Tricuspid aortic valve. There is mild thickening. There is mild calcification. The peak gradient is 4 mmHg (peak velocity = 97.0 cm/s). PULMONIC VALVE The pulmonic valve cusps are structurally normal. There is no pulmonic stenosis. There is trace pulmonic valve regurgitation. AORTA The visualized aorta is dilated. Measurements - Aortic valve annulus 2.6 cm. Sinus: 4.1 cm. Sinotubular junction 4.0 cm. Mid ascending aorta 4.1 cm. PULMONARY ARTERIES The pulmonary arteries are normal. INTERATRIAL SEPTUM There is no evidence of intracardiac shunting as detected by Doppler. INTERVENTRICULAR SEPTUM There is abnormal motion of the interventricular septum secondary to abnormal conduction. There is no flow through the interventricular septum as detected by Doppler. PERICARDIUM There is no pericardial effusion. There is an epicardial fat pad. CONCLUSIONS: - Exam indication: Abnormal ECG - The left ventricle is normal in size. Left ventricular systolic function is normal. EF = 55 5% (2D 4-ch.). Normal left ventricular diastolic function. - The right ventricle is normal in size. Right ventricular systolic function is normal. - The visualized aorta is dilated with a maximal dimension of 4.1 cm. - Mild (1+) mitral valve regurgitation. - The patient has not had a prior CC echocardiographic exam for comparison. * * * Final * * * CC [employer] Medical Image : [id number]. 524[employer] [facility] 11-14-2024 HUMA Telephone (UROLMD) -- ZACHARY SHORT ([id number]) 1945 M Date Time Provider Department 11/14/24 JUAN BLANTON JR UROLMD During your visit today, we recorded the following information about you: Yordan Arellano 11/14/2024 10:32 AM Signed Called patient and LVM of scheduled echo appt. If patient calls back please let him know date and time of echo. . ThanksYordan Allergies As of Date: 11/14/2024 Noted Allergy Reaction RAMELTEON 05/22/2024 1 - Mental Status Change Date Reviewed: 11/14/2024 Reviewed by: Navneet Tellez APRN.[facility] - Fully Assessed Reason for Visit: Appointment [186] Prescriptions as of 11/14/2024 - finasteride (PROSCAR) 5 mg tablet Take 1 tablet by mouth once daily. - colestipol (COLESTID) 1 gram tablet Take 1 tablet by mouth two times a day. - citalopram (CELEXA) 20 mg tablet Take 1 tablet by mouth once daily. - tamsulosin (FLOMAX) 0.4 mg Take 1 capsule by mouth two times a day. - oxyCODONE-acetaminophen 5-325 mg (PERCOCET) Take 1-2 tablets by mouth every 4 hours as needed (for pain). - azelastine 0.1% nasal spray Use 1 [place] in each nostril two times a day. - lisinopril-hydroCHLOROthia zide (ZESTORETIC) 10-12.5 mg per tablet Take 1 tablet by mouth once daily. - ergocalciferol 50,000 unit capsule (VITAMIN D2, DRISDOL) Take 1 capsule by mouth two times a week. TO BE TAKEN ORALLY DIRECTED. Take 1 tablet by mouth twice weekly q8wfaip, then decrease to 1 tablet weekly. - naproxen (NAPROSYN) 500 mg tablet Take 1 tablet by mouth two times a day as needed (for pain/inflammation). Take with food. - polyethylene glycol 3350 (MIRALAX) 17 gram/dose powder Take 17 g by mouth once daily. Dissolve dose in 4 - 8 ounces of liquid and take as directed. - aspirin, enteric coated (ASPIRIN, ENTERIC COATED) 81 mg EC tablet Take 1 tablet by mouth once daily. Problem List As Of Date 11/14/2024 Noted Resolved Mixed hyperlipidemia [E78.2] 11/09/2005 Unspecified Asthma [J45.909] 11/09/2005 Personal history of other malignant neoplasm of*03/31/2006 Cervical Spondylosis without Myelopathy [M47.81* Family History of Malignant Neoplasm of Gastroi*05/16/2008 Primary Localized Osteoarthrosis, Shoulder Quin*05/16/2008 ACTINIC KERATOSIS (Premalignant AK) [L57.0] 05/17/2008 Other Seborrheic Keratosis [L82.1] 05/17/2008 09/15/2009 ACTINIC DAMAGE///CHR SOLAR SKIN DAMAGE NOS [L57*05/17/2008 09/15/2009 Rosacea [L71.9] 05/17/2008 Primary hypertension [I10] 09/15/2009 Obesity [E66.9] 09/15/2009 Irritated//Inflamed Seborrheic Keratosis [L82.0]09/23/2009 Solar lentigo [L81.4] 09/23/2009 Bladder Neck Obstruction [N32.0] 10/30/2009 Hypertrophy of prostate with urinary obstructio*05/28/2010 Arthritis of shoulder region, left, degenerativ*08/03/2011 Benign neoplasm of rectum and anal canal [D12.8*08/23/2011 Pain in joint, shoulder region [M25.519] 10/21/2011 Chronic knee pain [M25.569, G89.29] 02/28/2017 Preop examination [Z01.818] 11/21/2023 Elevated prostate specific antigen (PSA) [R97.2*11/21/2023 11/29/2023 Obesity, Class I, BMI 30-34.9 [E66.811] 11/21/2023 Prostate cancer (HCC) [C61] 11/29/2023 Encounter Status:Closed by YORDAN ARELLANO on 11/14/24 Normal [facility] HISTORY PHYSICALon HISTORY PHYSICAL HNO ID: [id number] Author: NAVNEET TELLEZ APRN.DIRECTOR OF COMPENSATION Service: ? Author Type: Nurse Practitioner Type: H&P Filed: 11/14/2024 08:53 Note Text: [facility] HISTORY AND PHYSICAL EXAMINATION SERVICE DATE: 11/14/2024 SERVICE TIME: 07:45 AM PRIMARY CARE PHYSICIAN: Ailin Pierson MD Assessment Patient has the following medical conditions which may affect jose francisco-operative course: Problem List Items Addressed This Visit Cardiovascular Mixed hyperlipidemia Current Assessment AND Plan Managed by PCP and Controlled with meds. Cholesterol, Total (mg/dL) Date Value 04/19/2024 193 06/11/2020 170 Primary hypertension Current Assessment AND Plan Managed by PCP and Controlled with meds. Last 14 BP Last 14 Encounter BP Readings: Date: BP: 10/23/2024 129/73 10/10/2024 102/61 09/18/2024 111/58 09/11/2024 114/66 09/04/2024 142/67 08/28/2024 116/63 08/28/2024 110/62 08/21/2024 100/67 08/14/2024 122/72 06/29/2024 118/69 06/26/2024 112/70 04/23/2024 118/78 01/05/2024 120/71 12/29/2023 120/78 Other Preop examination - Primary Current Assessment AND Plan Patient has the following medical conditions which may affect jose francisco-operative course addressed in assessment and plan today Obesity, Class I, BMI 30-34.9 Current Assessment AND Plan BMI 32 Pending ECHO from 10/10/2024 in [facility] ? Flagged for anesthesia review ANESTHESIA FINDINGS: Intubation History: No history of difficult intubation. No abnormal airway history Significant Anesthesia Considerations: none Airway History: No history of difficult airway No abnormal airway history Glover Activity Status Index: METS: Climb a flight of stairs or walk up a hill (5.50 METs) DASI Score: 5.5 Patient denies any chest pain or undue shortness of breath with the above physical activity. ARISCAT Score: Age: >80 Preoperative SpO2: >=96% Respiratory infection in the last month: No Preoperative anemia: No Surgical incision: peripheral Duration of surgery: <2 hrs Emergency procedure: No ARISCAT Score: 16 I - PHYSICAL EVALUATION AIRWAY Patient intubated: No. DENTAL Dental findings: missing tooth/teeth and poor dentition. Dentures, upper: partial. Dentures, lower: partial. II - ANESTHESIA PLAN Anesthetic Plan: general Beta Ayaz Monitoring Plan Post Procedure Analgesic Plan Prepared for Surgery: . Last OR October 2023 with no issues with anesthesia CONSULTS: Planned Anesthetic: general The Following Tests/Procedures Have Been Initiated: No orders of the defined types were placed in this encounter. REASON FOR VISIT: Zachary Short is a 79 year old male who is scheduled for Procedure(s): CYSTOSCOPY, RESECTION PROSTATE TRANSURETHRAL (N/A) at the request of Dr. Blanton, Juan Martin Jr., MD for routine HANDP. My final recommendation will be communicated back to the requesting physician by way of shared medical record or letter. Subjective The patient has the following: COVID-19 Immunization Status Upcoming Covid-19 Vaccine () Postponed until 04/23/2025 04/23/2024 Postponed until 04/23/2025 by Ailin Pierson MD (Declined at this time) 03/30/2023 Postponed until 03/30/2024 by Roxana Reza MA (Declined at this time) 03/25/2022 Postponed until 03/25/2023 by Roxana Reza MA (Declined at this time) Only the first 3 history entries have been loaded, but more history exists. CHIEF COMPLAINT: The reason for this visit is to perform a comprehensive review of the patient's past medical history, assess their current health status and obtain any additional testing required based on anesthesia guidelines. We will also identify any potential anesthesia problems or contraindications to the planned procedure. HPI: Patient presents to [facility] for the preoperative exam for the above procedure. Patient with PMH prostate cancer on hormone therapy s/p radiation with last treatment 3 weeks ago. Chronic hx of BPH x 2 years. Patient recently was unable to empty his bladder with ultrasound showing blockage. Mahoney cath put in place. +UTI and was prescribed antibiotic treatments. Patient denies any other problems or concerns at this time. Risks and benefits of the procedure discussed by Surgeon and patient agreed to proceed with planned procedure. REVIEW OF SYSTEMS: General: No weight loss, malaise or fevers. Neurological: No history of TIA's, stroke, [employer]OTE [employer] tumor, impaired sensorium, hemiplegia, paraplegia or quadraplegia. No neurological symptoms or problems. Respiratory: No history of current cough or dyspnea, or pneumonia in the past 6 weeks. No history of respiratory/pulmonary symptoms or problems. Cardiovascular: Positive for: hyperlipidemia and hypertension GI: No history of GI symptoms or problems. No history of esophageal varices, recent ascites, or ETOH greater than 2 drinks per day. : See HPI. Positive for: nolberto (more content not included)... Normal [facility] NURSING PROGon 11-14-2024 NURSING PROG HNO ID: [id number] Author: LACI ALEXANDRE APRN.DIRECTOR OF COMPENSATION Service: ? Author Type: Nurse Practitioner Type: Nursing Progress Note Filed: 11/14/2024 10:18 Note Text: -- Summary: Anesthesia -- Reviewed patient's HANDP, PCP note from 10/10/24 and outstanding ECHO with Dr. Gonzalez of anesthesia, she states ideally would have ECHO complete, but due to surgery is approaching, no need for canceling surgery, at this time will request medical optimization to address the issue. I called and spoke with Bhumika at Dr. Blanton's office regarding the request. ELMER please f/u on medical optimization. [facility] NURSING PROGon 11-12-2024 NURSING PROG HNO ID: [id number] Author: BHUMIKA SCHULER, RN Service: Nursing Author Type: Registered Nurse Type: Nursing Progress Note Filed: 11/12/2024 15:27 Note Text: Does patient want another opportunity to revisit surgical decision with surgeon prior to surgery? No If yes, message sent to surgeon. N/A Normal [facility] CNNURSEon 11-05-2024 CNNURSE Nurse Visit (UROLMD) -- ZACHARY SHORT ([id number]) 1945 M Date Time Provider Department 11/05/24 8:00 AM NURSE UROL LINK UROLMD During your visit today, we recorded the following information about you: Gregory Casarez, RN 11/05/2024 1:40 PM Signed Zachary Short presents for a Mahoney catheter change Assisted to exam table, placed into semi-atkins position.Prepped with Iodine and 200 mg/10ml Lidocaine Hydrochloride jelly, 2% instilled retrograde into urethra. Using sterile procedure inserted 16 Fr. Coude catheter into bladder, returned 10 cc's of yellow urine.Balloon inflated with 10 cc's sterile H2O, connected to closed leg bag drainage, secured mahoney catheter to upper right side thigh c a mahoney catheter stabilization device.Leg bag secured to upper right side thigh.Tolerated procedure well. Overnight bag supplied.Instructions were given to wipe collection bag-mahoney catheter connection with alcohol prior to disconnect for exchange of collection bags, secure catheter with paper tape or mahoney catheter stabilization device obtained from a medical supply store and to alternate inner upper thigh site daily and to secure collection bag to alternate inner upper thigh daily. Gregory Casarez RN Allergies As of Date: 11/05/2024 (No Known Allergies) Date Reviewed: 11/05/2024 Reviewed by: Gregory Casarez RN - Fully Assessed Reason for Visit: Mahoney Catheter Change [825] Primary Visit Diagnosis:Encounter for Mahoney catheter replacement [Z46.6] Prescriptions as of 11/05/2024 - colestipol (COLESTID) 1 gram tablet Take 1 tablet by mouth two times a day. - citalopram (CELEXA) 20 mg tablet Take 1 tablet by mouth once daily. - tamsulosin (FLOMAX) 0.4 mg Take 1 capsule by mouth two times a day. - oxyCODONE-acetaminophen 5-325 mg (PERCOCET) Take 1-2 tablets by mouth every 4 hours as needed (for pain). - azelastine 0.1% nasal spray Use 1 [place] in each nostril two times a day. - lisinopril-hydroCHLOROthia zide (ZESTORETIC) 10-12.5 mg per tablet Take 1 tablet by mouth once daily. - ergocalciferol 50,000 unit capsule (VITAMIN D2, DRISDOL) Take 1 capsule by mouth two times a week. TO BE TAKEN ORALLY DIRECTED. Take 1 tablet by mouth twice weekly [id number], then decrease to 1 tablet weekly. - naproxen (NAPROSYN) 500 mg tablet Take 1 tablet by mouth two times a day as needed (for pain/inflammation). Take with food. - polyethylene glycol 3350 (MIRALAX) 17 gram/dose powder Take 17 g by mouth once daily. Dissolve dose in 4 - 8 ounces of liquid and take as directed. - aspirin, enteric coated (ASPIRIN, ENTERIC COATED) 81 mg EC tablet Take 1 tablet by mouth once daily. Problem List As Of Date 11/05/2024 Noted Resolved Mixed hyperlipidemia [E78.2] 11/09/2005 Unspecified Asthma [J45.909] 11/09/2005 Personal history of other malignant neoplasm of*03/31/2006 Cervical Spondylosis without Myelopathy [M47.81* Family History of Malignant Neoplasm of Gastroi*05/16/2008 Primary Localized Osteoarthrosis, Shoulder Quin*05/16/2008 ACTINIC KERATOSIS (Premalignant AK) [L57.0] 05/17/2008 Other Seborrheic Keratosis [L82.1] 05/17/2008 09/15/2009 ACTINIC DAMAGE///CHR SOLAR SKIN DAMAGE NOS [L57*05/17/2008 09/15/2009 Rosacea [L71.9] 05/17/2008 Primary hypertension [I10] 09/15/2009 Obesity [E66.9] 09/15/2009 Irritated//Inflamed Seborrheic Keratosis [L82.0]09/23/2009 Solar lentigo [L81.4] 09/23/2009 Bladder Neck Obstruction [N32.0] 10/30/2009 Hypertrophy of prostate with urinary obstructio*05/28/2010 Arthritis of shoulder region, left, degenerativ*08/03/2011 Benign neoplasm of rectum and anal canal [D12.8*08/23/2011 Pain in joint, shoulder region [M25.519] 10/21/2011 Chronic knee pain [M25.569, G89.29] 02/28/2017 Preop examination [Z01.818] 11/21/2023 Elevated prostate specific antigen (PSA) [R97.2*11/21/2023 11/29/2023 Obesity, Class I, BMI 30-34.9 [E66.811] 11/21/2023 Prostate cancer (HCC) [C61] 11/29/2023 Encounter Status:Closed by GREGORY CASAREZ on 11/05/24 Normal [facility] Bacteria Ur Culton 5 Bacteria identified Cx Nom (U) ORGANISM ID: 1 50,000-<100,000 CFU/ml Enterococcus faecalis Cephalosporins, clindamycin, and TMP-SMX are not effective for the treatment of enterococcal infections. ORGANISM ID: 2 10,000 -<50,000 CFU/ml Normal urogenital he ORGANISM ID: 1 (ENTEROCOCCUS FAECALIS) ANTIBIOTIC INTERPRETATION DYLAN STATUS REFERENCE RANGE Ampicillin S <=2 F Susceptible <=8 , Resistant >8 Vancomycin S 2 F Susceptible <=4 , Intermediate >4 , Resistant >16 Nitrofurantoin S <=16 F Susceptible <=32 , Intermediate >32 , Resistant >64 Abnormal [facility] Comment on above: Performed By: #### 2 4321-2, 02395-8 #### [facility] CLIA [id number] [address] [place] CBC W Auto Differential pane l (Bld)on 10-23-2024 Basophils (Bld) [#/Vol] 0.04 10*3/uL Normal <0.11 [facility] Comment on above: Order Comment: Speci men Type: BLOOD SPECIMENOrdering Facility: [facility] Address: [address] [place] [address] Performed By: #### 5 7021-8 ####[facility] [id number] [address] OF [facility] Basophils/100 WBC (Bld) 0.6 % Normal [facility] Comment on above: Order Comment: Speci men Type: BLOOD SPECIMENOrdering Facility: [facility] Address: [address] [place] [address] Performed By: #### 5 7021-8 ####[facility] [id number] [address] [place] Differential cell count method Nom (Bld) Auto Normal [facility] Comment on above: Order Comment: Speci men Type: BLOOD SPECIMENOrdering Facility: [facility] Address: [address] [place] [address] Performed By: #### 5 7021-8 ####[facility] [id number] [place] [address] [place] Eosinophils (Bld) [#/Vol] 0.50 10*3/uL High <0.46 [facility] Comment on above: Order Comment: Speci men Type: BLOOD SPECIMENOrdering Facility: [facility] Address: [address] [place] [address] Performed By: #### 5 7021-8 ####[facility] [id number] [address] [place] Eosinophils/100 WBC (Bld) 7.2 % Normal [facility] Comment on above: Order Comment: Speci men Type: BLOOD SPECIMENOrdering Facility: [facility] Address: [address] [place] [address] Performed By: #### 5 7021-8 ####[facility] [id number] [address] [place] Erythrocyte distribution width (RBC) [Ratio] 14.6 % Normal 11.5-15.0 [facility] Comment on above: Order Comment: Speci men Type: BLOOD SPECIMENOrdering Facility: [facility] Address: [address] [place] [address] Performed By: #### 5 7021-8 ####[facility] [id number] [address] [place] Hematocrit (Bld) [Volume fraction] 34.4 % Low 39.0-51.0 [facility] Comment on above: Order Comment: Speci men Type: BLOOD SPECIMENOrdering Facility: [facility] Address: [address] [place] [address] Performed By: #### 5 7021-8 ####[facility] [id number] [place] [address] [place] Hemoglobin (Bld) [Mass/Vol] 11.8 g/dL Low 13.0-17.0 [facility] Comment on above: Order Comment: Speci men Type: BLOOD SPECIMENOrdering Facility: [facility] Address: [address] [place] [address] Performed By: #### 5 7021-8 ####[facility] [id number] [place] [address] [place] Immature granulocytes (Bld) [#/Vol] 0.10 10*3/uL High <0.10 [facility] Comment on above: Order Comment: Speci men Type: BLOOD SPECIMENOrdering Facility: [facility] Address: [address] [place] [address] Performed By: #### 5 7021-8 ####[facility] [id number] [address] [place] Immature granulocytes/100 WBC (Bld) 1.4 % Normal [facility] Comment on above: Order Comment: Speci men Type: BLOOD SPECIMENOrdering Facility: [facility] Address: [address] [place] [address] Performed By: #### 5 7021-8 ####[facility] [id number] [place] [address] [place] Lymphocytes (Bld) [#/Vol] 0.83 10*3/uL Low 1.00-4.00 [facility] Comment on above: Order Comment: Speci men Type: BLOOD SPECIMENOrdering Facility: [facility] Address: [address] [place] [address] Performed By: #### 5 7021-8 ####[facility] [id number] [address] [place] Lymphocytes/100 WBC (Bld) 11.9 % Normal [facility] Comment on above: Order Comment: Speci men Type: BLOOD SPECIMENOrdering Facility: [facility] Address: [address] [place] [address] Performed By: #### 5 7021-8 ####[facility] [id number] [address] MCH (RBC) [Entitic mass] 35.4 pg High 26.0-34.0 [facility] Comment on above: Order Comment: Speci men Type: BLOOD SPECIMENOrdering Facility: [facility] Address: [address] [place] [address] Performed By: #### 5 7021-8 ####[facility] [id number] [address] MCHC (RBC) [Mass/Vol] 34.3 g/dL Normal 30.5-36.0 [facility] Comment on above: Order Comment: Speci men Type: BLOOD SPECIMENOrdering Facility: [facility] Address: [address] [place] [address] Performed By: #### 5 7021-8 ####[facility] [id number] [address] MCV (RBC) [Entitic vol] 103.3 fL High 80.0-100.0 [facility] Comment on above: Order Comment: Speci men Type: BLOOD SPECIMENOrdering Facility: [facility] Address: [address] [place] [address] Performed By: #### 5 7021-8 ####[facility] [id number] [address] Monocytes (Bld) [#/Vol] 0.77 10*3/uL Normal <0.87 [facility] Comment on above: Order Comment: Speci men Type: BLOOD SPECIMENOrdering Facility: [facility] Address: [address] [place] [address] Performed By: #### 5 7021-8 ####[facility] [id number] [address] Monocytes/100 WBC (Bld) 11.1 % Normal [facility] Comment on above: Order Comment: Speci men Type: BLOOD SPECIMENOrdering Facility: [facility] Address: [address] [place] [address] Performed By: #### 5 7021-8 ####[facility] [id number] [place] [address] [place] Neutrophils (Bld) [#/Vol] 4.72 10*3/uL Normal 1.45-7.50 [facility] Comment on above: Order Comment: Speci men Type: BLOOD SPECIMENOrdering Facility: [facility] Address: [address] [place] [address] Performed By: #### 5 7021-8 ####[facility] [id number] [place] [address] [place] Neutrophils/100 WBC (Bld) 67.8 % Normal [facility] Comment on above: Order Comment: Speci men Type: BLOOD SPECIMENOrdering Facility: [facility] Address: [address] [place] [address] Performed By: #### 5 7021-8 ####[facility]ORY[facility] [id number] [place] [address] [place] Nucleated RBC (Bld) [#/Vol] 10*3/uL Normal <0.01 [facility] Comment on above: Order Comment: Speci men Type: BLOOD SPECIMENOrdering Facility: [facility] Address: [address] [place] [address] Performed By: #### 5 7021-8 ####[facility] [id number] [address] [place] Nucleated RBC/100 WBC (Bld) [Ratio] 0.0 /100 WBC Normal [facility] Comment on above: Order Comment: Speci men Type: BLOOD SPECIMENOrdering Facility: [facility] Address: [address] [place] [address] Performed By: #### 5 7021-8 ####[facility]ORYCL[facility] [id number] [place] [address] [place] Platelet mean volume (Bld) [Entitic vol] 8.6 fL Low 9.0-12.7 [facility] Comment on above: Order Comment: Speci men Type: BLOOD SPECIMENOrdering Facility: [facility] Address: [address] [place] [address], [place] [address] Performed By: #### 5 7021-8 ####[facility]ORYCL[facility] [id number] [address] [place] Platelets (Bld) [#/Vol] 201 10*3/uL Normal 150-400 [facility] Comment on above: Order Comment: Speci men Type: BLOOD SPECIMENOrdering Facility: [facility] Address: [address] [place] [address] Performed By: #### 5 7021-8 ####[facility] [id number] [address] [place] RBC (Bld) [#/Vol] 3.33 10*6/uL Low 4.20-6.00 [facility] Comment on above: Order Comment: Speci men Type: BLOOD SPECIMENOrdering Facility: [facility] Address: [address] [place] [address] Performed By: #### 5 7021-8 ####[facility] [id number] [address] OF [facility] WBC (Bld) [#/Vol] 6.96 10*3/uL Normal 3.70-11.00 [facility] Comment on above: Order Comment: Speci men Type: BLOOD SPECIMENOrdering Facility: [facility] Address: [address] [place] [address] Performed By: #### 5 7021-8 ####[facility] [id number] [address] OF [facility] ZACHARY SHORT ([id number]) 1945 M Date Time Provider Department 10/23/24 XIMENA, DAESUNG RADTWS During your visit today, we recorded the following information about you: Mali Fernández RN 10/23/2024 3:[address] Huffman, pt was called to see if UA with culture was completed on 10/17 not 08/29/24 when it had been ordered and if it wsa a straight cath as noted on report. Spoke with Zachary and he reports he came in for blood draw on 10/17 and was told he needed a urine culture too. He told the lab he had a mahoney cath and was told that it was ok and the specimen was drawn from the catheter bag. Pt does reports some occasional burning at tip but feels ok and reports urine looks clear in bag. This all reported to Dr Huffman who ordered pt to go to ER to have catheter changed since the culture on 10/17 showed Silke. Pt was notified and prefers to go to [place] [facility] and will do so now. Dr Blanton is now caring for pt as radiation is complete. Allergies As of Date: 10/23/2024 (No Known Allergies) Date Reviewed: 10/10/2024 Reviewed by: Lea Hargrove LPN - Fully Assessed Reason for Visit: Results [95] Prescriptions as of 10/23/2024 - colestipol (COLESTID) 1 gram tablet Take 1 tablet by mouth two times a day. - citalopram (CELEXA) 20 mg tablet Take 1 tablet by mouth once daily. - tamsulosin (FLOMAX) 0.4 mg Take 1 capsule by mouth two times a day. - oxyCODONE-acetaminophen 5-325 mg (PERCOCET) Take 1-2 tablets by mouth every 4 hours as needed (for pain). - azelastine 0.1% nasal spray Use 1 [place] in each nostril two times a day. - lisinopril-hydroCHLOROthia zide (ZESTORETIC) 10-12.5 mg per tablet Take 1 tablet by mouth once daily. - ergocalciferol 50,000 unit capsule (VITAMIN D2, DRISDOL) Take 1 capsule by mouth two times a week. TO BE TAKEN ORALLY DIRECTED. Take 1 tablet by mouth twice weekly e2uuiat, then decrease to 1 tablet weekly. - naproxen (NAPROSYN) 500 mg tablet Take 1 tablet by mouth two times a day as needed (for pain/inflammation). Take with food. - polyethylene glycol 3350 (MIRALAX) 17 gram/dose powder Take 17 g by mouth once daily. Dissolve dose in 4 - 8 ounces of liquid and take as directed. - aspirin, enteric coated (ASPIRIN, ENTERIC COATED) 81 mg EC tablet Take 1 tablet by mouth once daily. Problem List As Of Date 10/23/2024 Noted Resolved Mixed hyperlipidemia [E78.2] 11/09/2005 Unspecified Asthma [J45.909] 11/09/2005 Personal history of other malignant neoplasm of*03/31/2006 Cervical Spondylosis without Myelopathy [M47.81* Family History of Malignant Neoplasm of Gastroi*05/16/2008 Primary Localized Osteoarthrosis, Shoulder Quin*05/16/2008 ACTINIC KERATOSIS (Premalignant AK) [L57.0] 05/17/2008 Other Seborrheic Keratosis [L82.1] 05/17/2008 09/15/2009 ACTINIC DAMAGE///CHR SOLAR SKIN DAMAGE NOS [L57*05/17/2008 09/15/2009 Rosacea [L71.9] 05/17/2008 Primary hypertension [I10] 09/15/2009 Obesity [E66.9] 09/15/2009 Irritated//Inflamed Seborrheic Keratosis [L82.0]09/23/2009 Solar lentigo [L81.4] 09/23/2009 Bladder Neck Obstruction [N32.0] 10/30/2009 Hypertrophy of prostate with urinary obstructio*05/28/2010 Arthritis of shoulder region, left, degenerativ*08/03/2011 Benign neoplasm of rectum and anal canal [D12.8*08/23/2011 Pain in joint, shoulder region [M25.519] 10/21/2011 Chronic knee pain [M25.569, G89.29] 02/28/2017 Preop examination [Z01.818] 11/21/2023 Elevated prostate specific antigen (PSA) [R97.2*11/21/2023 11/29/2023 Obesity, Class I, BMI 30-34.9 [E66.811] 11/21/2023 Prostate cancer (HCC) [C61] 11/29/2023 Encounter Status:Closed by MALI FERNÁNDEZ on 10/23/24 Normal [facility] metabolic 2000 panelon 10-23-2024 Albumin [Mass/Vol] 4.2 g/dL Normal 3.9-4.9 [facility] Comment on above: Order Comment: Speci men Type: BLOOD SPECIMENOrdering Facility: [facility] Address: [address] [place] [address] Performed By: #### 1 9123-9, 06810-2 ####LINK LABORATORYCLIA [id number] [place] [address] [place] ALP [Catalytic activity/Vol] 102 U/L Normal 38-113 [facility] Comment on above: Order Comment: Speci men Type: BLOOD SPECIMENOrdering Facility: [facility] Address: [address] [place] [address] Performed By: #### 1 9123-9, 77373-7 ####LIKN LABORATORYCLIA [id number] [place] [address] [place] ALT [Catalytic activity/Vol] U/L Low 10-54 [facility] Comment on above: Order Comment: Speci men Type: BLOOD SPECIMENOrdering Facility: [facility] Address: [address] [place] [address] Performed By: #### 1 23-9, 15475-2 ####LINK LABORATORYCLIA [id number] [place] [address] [place] Anion gap [Moles/Vol] 11 mmol/L Normal 8-15 [facility] Comment on above: Order Comment: Speci men Type: BLOOD SPECIMENOrdering Facility: [facility] Address: [address] [place] [address] Performed By: #### 1 9123-9, 17999-3 ####LINK LABORATORYCLIA [id number] [place] [id number] [place] AST [Catalytic activity/Vol] 27 U/L Normal 14-40 [facility] Comment on above: Order Comment: Speci men Type: BLOOD SPECIMENOrdering Facility: [facility] Address: [address] [place] [address] Performed By: #### 1 23, ####LINK LABORATORYCLIA [id number] [place] [address] [place] Bilirubin [Mass/Vol] mg/dL Low 0.2-1.3 [facility] Comment on above: Order Comment: Speci men Type: BLOOD SPECIMENOrdering Facility: [facility] Address: [address] [place] [address] Performed By: #### 1 9123-01, ####LINK LABORATORYCLIA [id number] [place] [address] [place] Calcium [Mass/Vol] 9.3 mg/dL Normal 8.5-10.2 [facility] Comment on above: Order Comment: Speci men Type: BLOOD SPECIMENOrdering Facility: [facility] Address: [address] [place] [address] Performed By: #### 1 9, ####LINK LABORATORYCLIA [id number] [place] [address] [place] Chloride [Moles/Vol] 100 mmol/L Normal 98-107 [facility] Comment on above: Order Comment: Speci men Type: BLOOD SPECIMENOrdering Facility: [facility] Address: [address] [place] [address] Performed By: #### 1 9, ####LINK LABORATORYCLIA [id number] [place] [address] [place] CO2 [Moles/Vol] 26 mmol/L Normal 22-30 [facility] Comment on above: Order Comment: Speci men Type: BLOOD SPECIMENOrdering Facility: [facility] Address: [address] [place] [address] Performed By: #### 1 23-9, 09149-4 ####LINK LABORATORYCLIA [id number] [place] [address] [place] Creatinine [Mass/Vol] 1.01 mg/dL Normal 0.73-1.22 [facility] Comment on above: Order Comment: Speci men Type: BLOOD SPECIMENOrdering Facility: [facility] Address: [address] [place] [address] Performed By: #### 1 9123-9, 36026-8 ####LINK LABORATORYCLIA [id number] [place] [id number] [place] [facility] Creatinine and Glomerular filtration rate.predicted panel (S/P/Bld) 75 mL/min/1.73m??? Normal >=60 [facility] Comment on above: Order Comment: Radha charles Type: BLOOD SPECIMENOrdering Facility: [facility] Address: [address] [place] [address] Result Comment: Ekaterina mated Glomerular Filtration Rate (eGFR) is calculated using the 2020 CKD-EPI creatinine equation. This equation utilizes serum creatinine, sex, and age as parameters. The creatinine assay has traceable calibration to isotope dilution-mass spectrometry. Refer to KDIGO guidelines for clinical interpretation. In patients with unstable renal function, e.g. those with acute kidney injury, the eGFR may not accurately reflect actual GFR. Performed By: #### 1 9123-9, 63471-9 ####LINK LABORATORYCLIA [id number] [place] [address] [place] [facility] Glucose [Mass/Vol] 96 mg/dL Normal 74-99 [facility] Comment on above: Order Comment: Radha charles Type: BLOOD SPECIMENOrdering Facility: [facility] Address: [address] [place] [address] Result Comment: The [place] Diabetes Association (ADA) provides guidance for cutoff values for fasting glucose and random glucose. The ADA defines fasting as no caloric intake for at least 8 hours. Fasting plasma glucose results between 100 to 125 mg/dL indicate increased risk for diabetes (prediabetes). Fasting plasma glucose results greater than or equal to 126 mg/dL meet the criteria for diagnosis of diabetes. In the absence of unequivocal hyperglycemia, results should be confirmed by repeat testing. In a patient with classic symptoms of hyperglycemia or hyperglycemic crisis, random plasma glucose results greater than or equal to 200 mg/dL meet the criteria for diagnosis of diabetes. Reference: Standards of Medical Care in Diabetes 2016, [place] [employer] Association. Diabetes Care. 2016.39(Suppl 1). Performed By: #### 1 9123-9, 50186-1 ####LINK LABORATORYCLIA [id number] [place] [address] OF [facility] Potassium [Moles/Vol] 4.6 mmol/L Normal 3.7-5.1 [facility] Comment on above: Order Comment: Speci men Type: BLOOD SPECIMENOrdering Facility: [facility] Address: [address] [place] [address] Performed By: #### 1 9123-9, 28478-5 ####LINK LABORATORYCLIA [id number] [place] [address] [place] Protein [Mass/Vol] 7.9 g/dL Normal 6.3-8.0 [facility] Comment on above: Order Comment: Speci men Type: BLOOD SPECIMENOrdering Facility: [facility] Address: [address] [place] [address] Performed By: #### 1 9123-9, 37351-5 ####LINK LABORATORYCLIA [id number] [address] Sodium [Moles/Vol] 137 mmol/L Normal 136-144 [facility] Comment on above: Order Comment: Speci men Type: BLOOD SPECIMENOrdering Facility: [facility] Address: [address] [place] [address] Performed By: #### 1 9123-9, 07867-8 ####LINK LABORATORYCLIA [id number] [address] [place] Urea nitrogen [Mass/Vol] 21 mg/dL Normal 9-24 [facility] Comment on above: Order Comment: Speci men Type: BLOOD SPECIMENOrdering Facility: [facility] Address: [address] [place] [address] Performed By: #### 1 9123-9, 61150-5 ####LINK LABORATORYCLIA [id number] [address] [place] ED NOTEon 10-23-2024 ED NOTE HNO ID: [id number] Author: RENEE RAMIREZ RN Service: ? Author Type: Registered Nurse Type: ED Notes Filed: 10/25/2024 10:37 Note Text: Emergency Services: ED Call Back Questionnaire SERVICE DATE: 10/23/2024 Are you feeling better? Yes Any questions about discharge instructions and follow-up care? No Were you able to make a follow up appointment? Yes Do you have any further questions? No Is there anything that we could have done differently to improve your ED visit? No SIGNATURE: Renee Ramirez RN PATIENT NAME: Zachary Short DATE: October 25, 2024 TIME: 10:35 AM [facility] ED NOTE HNO ID: [id number] Author: AYDEN HOLDEN RN Service: Nursing Author Type: Registered Nurse Type: ED Notes Filed: 10/23/2024 20:05 Note Text: Pt discharged from the facility at this time in satisfactory condition. Pt peripheral IV removed prior to discharge. Pt educated on how to schedule follow up appt with PCP. This nurse reviewed entire discharge packet with Pt including: medications, side effects, s/s to report to MD. Pt verbalized understanding. Pt has a ride home. Pt left with all personal belongings exiting the facility. [facility] ED PROV NOTEon 10-23-2024 ED PROV NOTE HNO ID: [id number] Author: VICKY HERNÁNDEZ DO Service: Emergency Medicine Author Type: Physician Type: ED Provider Notes Filed: 10/24/2024 01:01 Note Text: ED Provider Note Patient Name: Zachary Short : 1945 SERVICE DATE: 10/23/24 History Patient presents with: Mahoney Cath Problem: Pt ambulates to triage, pt was sent by PCP for catheter change for possible infection. HPI 79-year-old male PMH prostate cancer on hormone therapy s/p radiation presents today for concern for UTI. Patient states that he was told to emergency room because he has a patient denies any fever, chills, nausea, vomiting, abdominal pain, flank pain, focal weakness or numbness, headaches, vision changes UTI. Denies any hematuria, dysuria, melena, hematochezia. Patient states that he has otherwise been at baseline. Denies any chemotherapy. Patient states that he is currently asymptomatic. 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 Only seasonal now PAST SURGICAL HISTORY Procedure Laterality Date ARTHROPLASTY HEMIARTHROPLASTY 09/10/2011 left shoulder Ari arthroplasty ARTHROPLASTY HEMIARTHROPLASTY 03/07/2012 left shoulder revision COLONOSCOPY AND POLYPECTOMY 08/23/11 repeat 5 years COLONOSCOPY FLX DX W/COLLJ SPEC WHEN PFRMD 10/19/2016 Normal colonoscopy-family history-5 year follow-up NECK 07/17/2007 Anterior cervical discectomy allograft fusion on c-4,c-5,c-6 FAMILY HISTORY Problem Relation Age of Onset Colon Cancer Father Cancer Mother metastatic melanoma Social History Tobacco Use Smoking status: Never Passive exposure: Never Smokeless tobacco: Never Vaping Use Vaping status: Never Used Substance and Sexual Activity Alcohol use: Yes Comment: socially, 3-4 beers/year Drug use: No Sexual activity: Not Currently Partners: Female ALLERGIES No Known Allergies Review of Systems Constitutional: Negative for fatigue and fever. HENT: Negative for congestion. Respiratory: Negative for cough and shortness of breath. Cardiovascular: Negative for chest pain. Gastrointestinal: Negative for abdominal pain, diarrhea, nausea and vomiting. Genitourinary: Negative for dysuria. Neurological: Negative for weakness. Physical Exam Vitals [10/23/24 1655] BP Pulse Temp Temp src Resp SpO2 Weight Height 142/72 76 36.7 ?C (98 ?F) Oral 18 99 % 108.4 kg (239 lb) -- Physical Exam Constitutional: General: He is not in acute distress. Appearance: He is not ill-appearing, toxic-appearing or diaphoretic. HENT: Head: Normocephalic. Nose: Nose normal. Mouth/Throat: Mouth: Mucous membranes are moist. Eyes: Pupils: Pupils are equal, round, and reactive to light. Cardiovascular: Rate and Rhythm: Normal rate. Pulses: Normal pulses. Comments: +2 radials and DPs bilaterally Pulmonary: Effort: Pulmonary effort is normal. No respiratory distress. Breath sounds: No wheezing. Abdominal: Palpations: Abdomen is soft. Tenderness: There is no abdominal tenderness. There is no guarding. Comments: abdomen soft and nontender in all quadrants Urinary bag on patient's leg with yellow urine. Musculoskeletal: Right lower leg: No edema. Left lower leg: No edema. Skin: General: Skin is warm. Capillary Refill: Capillary refill takes less than 2 seconds. Neurological: Mental Status: Mental status is at baseline. Diagnostic Testing ED Labs Ordered and Reviewed COMPREHENSIVE METABOLIC PANEL - Abnormal; Notable for the following components: Result Value Ref Range Bilirubin, Total <0.2 (*) 0.2 - 1.3 mg/dL ALT <5 (*) 10 - 54 U/L All other components within normal limits COMPLETE BLOOD COUNT AND DIFFERENTIAL - Abnormal; Notable for the following components: RBC 3.33 (*) 4.20 - 6.00 m/uL Hemoglobin 11.8 (*) 13.0 - 17.0 g/dL Hematocrit 34.4 (*) 39.0 - 51.0 % MCV 103.3 (*) 80.0 - 100.0 fL MCH 35.4 (*) 26.0 - 34.0 pg MPV 8.6 (*) 9.0 - 12.7 fL Abs Lymph 0.83 (*) 1.00 - 4.00 k/uL Abs Eosin 0.50 (*) <0.46 k/uL Abs Immature Gran 0.10 (*) <0.10 k/uL All other components within normal limits URINALYSIS (WITH MICROSCOPIC) WITH CULTURE IF INDICATED - Abnormal; Notable for the following components: Clarity Cloudy (*) Clear Hemoglobin/Blood,Ur 3+ (*) Negative Protein, Urine 1+ (*) Negative Leuk Esterase 3+ (*) Negative WBC, Urine 11-25 /HPF (*) 0-5 /HPF RBC, Urine 6-10 /HPF (*) 0-3 /HPF Bacteria Moderate (*) None Seen /HPF All other components within normal limits MAGNESIUM - Normal URINE CULTURE IF INDICATED Procedures ED Course / Clinical Impression ED Course a (more content not included)... Normal [facility] ED Triage Noteon 10-23-2024 ED Triage Note HNO ID: [id number] Author: MATEO BRODERICK APRN.DIRECTOR OF COMPENSATION Service: Emergency Medicine Author Type: Nurse Practitioner Type: ED Triage Notes Filed: 10/23/2024 16:58 Note Text: ED TRIAGE PROVIDER NOTE Patient Name: Zachary Short Service Date: 10/23/24 BRIEF HPI: This is a 79 year old male who presents to the ED with: Possible UTI Follows with urology for BPH Has mahoney just finished radiation Had culture 10/17 showing silke Due to UTI symptoms patient physician wanted cath exchanged and urine re examined. (See epic) BRIEF EXAM: NAD Awake and Alert Non labored breathing No focal neurological deficits INITIAL WORKUP AND DECISION MAKING: Orders Placed This Encounter COMP METABOLIC PANEL (BMP+LFT) MAGNESIUM BLD CBC + DIFF Urinalysis w Microscopic, reflex Culture SIGNATURE: Mateo Broderick, [place] DECORATOR.DIRECTOR OF COMPENSATION Normal [facility] Magnesium SerPl-mCncon 10-23 Magnesium [Mass/Vol] 2.0 mg/dL Normal 1.7-2.3 [facility] Comment on above: Order Comment: Speci men Type: BLOOD SPECIMENOrdering Facility: [facility] Address: [address] [place] [address] Performed By: #### 1 9123-9, 70315-4 ####DONIPHAN LABORATORYCLIA [id number] [address] [place] [facility] Urinalysis complete panel (U )on 10-23-2024 Bacteria LM.HPF (Urine sed) [#/Area] Moderate Abnormal None Seen [facility] Comment on above: Order Comment: Speci men Type: BLOOD SPECIMEN [facility] Address: [address] [place] [address] Performed By: #### 2 432-2, #### [facility] CLIA [id number] [address] [place] [facility] Bilirubin Ql (U) Negative Normal Negative [facility] Comment on above: Order Comment: Speci men Type: BLOOD SPECIMEN [facility] Address: [address] [place] [address] Performed By: #### 2 432-2, #### [facility] CLIA [id number] [address] Clarity (Unsp spec) Cloudy Abnormal Clear [facility] Comment on above: Order Comment: Speci men Type: BLOOD SPECIMEN [facility] Address: [address] [place] [address] Performed By: #### 2 4321-2, #### [facility] CLIA [id number] [address] [place] Color (U) Yellow Normal Yellow [facility] Comment on above: Order Comment: Speci men Type: BLOOD SPECIMEN [facility] Address: [address] [place] [address] Performed By: #### 2 4321-2, #### [facility] CLIA [id number] [address] Glucose Test strip (U) [Mass/Vol] Negative Normal Negative [facility] Comment on above: Order Comment: Speci men Type: BLOOD SPECIMEN [facility] Address: [address] [place] [address] Performed By: #### 2 4321-2, #### [facility] CLIA [id number] [address] Hemoglobin Ql (U) 3+ Abnormal Negative [facility] Comment on above: Order Comment: Speci men Type: BLOOD SPECIMEN [facility] Address: [address] [place] [address] Performed By: #### 2 432-2, #### [facility] CLIA [id number] [address] [place] Ketones Ql (U) Negative Normal Negative [facility] Comment on above: Order Comment: Speci men Type: BLOOD SPECIMEN [facility] Address: [address] [place] [address] Performed By: #### 2 432-2, #### [facility] CLIA [id number] [address] Leukocyte esterase Test strip Ql (U) 3+ Abnormal Negative [facility] Comment on above: Order Comment: Speci men Type: BLOOD SPECIMEN [facility] Address: [address] [place] [address] Performed By: #### 2 432-2, #### [facility] CLIA [id number] [address] [place] [address] [place] Nitrite Ql (U) Negative Normal Negative [facility] Comment on above: Order Comment: Speci men Type: BLOOD SPECIMEN [facility] Address: [address] [place] [address] Performed By: #### 2 4320-2, #### [facility] CLIA [id number] [address] [place] pH (U) 6.0 [pH] Normal 5.0-8.0 [facility] Comment on above: Order Comment: Speci men Type: BLOOD SPECIMEN [facility] Address: [address] [place] [address] Performed By: #### 2 4320-2, #### [facility] CLIA [id number] [address] [place] [address] [place] Protein (U) [Mass/Vol] 1+ Abnormal Negative [facility] Comment on above: Order Comment: Speci men Type: BLOOD SPECIMEN [facility] Address: [address] [place] [address] Performed By: #### 2 4320-2, #### [facility] CLIA [id number] [address] [place] [address] [place] RBC LM.HPF (Urine sed) [#/Area] 6-10 /HPF Abnormal 0-3 /HPF [facility] Comment on above: Order Comment: Speci men Type: BLOOD SPECIMEN [facility] Address: [address] [place] [address] Performed By: #### 2 4320-2, #### [facility] CLIA [id number] [address] [place] Specific gravity (U) [Rel density] 1.020 Normal 1.005-1.030 [facility] Comment on above: Order Comment: Speci men Type: BLOOD SPECIMEN [facility] Address: [address] [place] [address] Performed By: #### 2 4320-2, #### [facility] CLIA [id number] [address] [place] [address] [place] Urobilinogen Ql (U) 0.2 EU/dL Normal 0.2-1.0 EU/dL [facility] Comment on above: Order Comment: Speci men Type: BLOOD SPECIMEN [facility] Address: [address] [place] [address] [place] [id number] Performed By: #### 2 4321-2, #### [facility] CLIA [id number] [address] WBC LM.HPF (Urine sed) [#/Area] 11-25 /HPF Abnormal 0-5 /HPF [facility] Comment on above: Order Comment: Speci men Type: BLOOD SPECIMEN [facility] Address: [address] [place] [address] [place] [id number] Performed By: #### 2 4321-2, #### [facility] CLIA [id number] [address] CNPNon 10-18-2024 CNPN Telephone (RADTWS) -- ZACHARY SHORT ([id number]) 1945 M Date Time Provider Department 10/18/24 VINCE HUFFMAN RADTWS During your visit today, we recorded the following information about you: Poonam Rice RN 10/18/2024 12:03 PM Signed I attempted to notify pt of his PSA results but had to leave a message. Dr Huffman would like a 6 [address] follow [address] scheduled. [address] Huffman do you want a PSA drawn a week before and follow up by phone? Vince Huffman MD 10/18/2024 1:29 PM Signed Yes, please. Thank you. Poonam Rice, RN 10/18/2024 2:19 PM Signed PSR's please contact pt and schedule 6 month phone follow up with Dr Huffman. PSA in lab 1 week prior. Thanks! Vero Aj 10/18/2024 3:02 PM Signed Spoke with patient and scheduled both lab and phone call Vero Aj Allergies As of Date: 10/18/2024 (No Known Allergies) Date Reviewed: 10/10/2024 Reviewed by: Lea Hargrove LPN - Fully Assessed Prescriptions as of 10/18/2024 - colestipol (COLESTID) 1 gram tablet Take 1 tablet by mouth two times a day. - citalopram (CELEXA) 20 mg tablet Take 1 tablet by mouth once daily. - tamsulosin (FLOMAX) 0.4 mg Take 1 capsule by mouth two times a day. - oxyCODONE-acetaminophen 5-325 mg (PERCOCET) Take 1-2 tablets by mouth every 4 hours as needed (for pain). - azelastine 0.1% nasal spray Use 1 [place] in each nostril two times a day. - lisinopril-hydroCHLOROthia zide (ZESTORETIC) 10-12.5 mg per tablet Take 1 tablet by mouth once daily. - ergocalciferol 50,000 unit capsule (VITAMIN D2, DRISDOL) Take 1 capsule by mouth two times a week. TO BE TAKEN ORALLY DIRECTED. Take 1 tablet by mouth twice weekly [id number], then decrease to 1 tablet weekly. - naproxen (NAPROSYN) 500 mg tablet Take 1 tablet by mouth two times a day as needed (for pain/inflammation). Take with food. - polyethylene glycol 3350 (MIRALAX) 17 gram/dose powder Take 17 g by mouth once daily. Dissolve dose in 4 - 8 ounces of liquid and take as directed. - aspirin, enteric coated (ASPIRIN, ENTERIC COATED) 81 mg EC tablet Take 1 tablet by mouth once daily. Problem List As Of Date 10/18/2024 Noted Resolved Mixed hyperlipidemia [E78.2] 11/09/2005 Unspecified Asthma [J45.909] 11/09/2005 Personal history of other malignant neoplasm of*03/31/2006 Cervical Spondylosis without Myelopathy [M47.81* Family History of Malignant Neoplasm of Gastroi*05/16/2008 Primary Localized Osteoarthrosis, Shoulder Quin*05/16/2008 ACTINIC KERATOSIS (Premalignant [place]) [L57.0] 05/17/2008 Other Seborrheic Keratosis [L82.1] 05/17/2008 09/15/2009 ACTINIC DAMAGE///CHR SOLAR SKIN DAMAGE NOS [L57*05/17/2008 09/15/2009 Rosacea [L71.9] 05/17/2008 Primary hypertension [I10] 09/15/2009 Obesity [E66.9] 09/15/2009 Irritated//Inflamed Seborrheic Keratosis [L82.0]09/23/2009 Solar lentigo [L81.4] 09/23/2009 Bladder Neck Obstruction [N32.0] 10/30/2009 Hypertrophy of prostate with urinary obstructio*05/28/2010 Arthritis of shoulder region, left, degenerativ*08/03/2011 Benign neoplasm of rectum and anal canal [D12.8*08/23/2011 Pain in joint, shoulder region [M25.519] 10/21/2011 Chronic knee pain [M25.569, G89.29] 02/28/2017 Preop examination [Z01.818] 11/21/2023 Elevated prostate specific antigen (PSA) [R97.2*11/21/2023 11/29/2023 Obesity, Class I, BMI 30-34.9 [E66.811] 11/21/2023 Prostate cancer (HCC) [C61] 11/29/2023 Encounter Status:Closed by VERO AJ on 10/18/24 Normal [facility] Bacteria Ur Culton 5 Bacteria identified Cx Nom (U) ORGANISM ID: 1 >=100,000 CFU/ml Silke tropicalis No susceptibility testing done. Normal [facility] Comment on above: Performed By: #### 6 30-4 ####[facility] LABCLIA [id number] [place] [address] [place] PSA SerPl-mCncon 10-17-2024 Prostate specific Ag [Mass/Vol] ng/mL Normal <2.60 [facility] Comment on above: Order Comment: Speci men Type: BLOOD SPECIMEN Ordering Facility: [facility] Address: [address] [place] [address] Result Comment: Tota l PSA test methodology used is the Electrochemiluminescence Immunoassay by [employer]. Total PSA values by differing methodologies cannot be interchanged. Performed By: #### 2 857-1 #### [facility] CLIA [id number] [address] [place] [address] [place] CNNURSEon 10-11-2024 CNNURSE Nurse Visit (UROLMD) -- HANZACHARY Bates ([id number]) 1945 M Date Time Provider Department 10/11/24 11:00 AM NURSE GAVIN LINK UROFRIEDA During your visit today, we recorded the following information about you: Gregory Casarez RN 10/26/2024 11:18 AM Signed Zachary Short a 79 year old male, identified by name and date of , here for a 6 Month Lupron injection Hot Flashes:No Frequency: none Allergies reviewed: Yes Medication - prescribed and OTC reviewed and updated: Yes Latex allergy: no. PAIN SCALE: Is the patient having any pain? No 0 on a scale of 0 to 10 Injection Administration: 45 mg IM left upper arm. Lot Number:[id number] Expiration date:10/2025 Patient tolerated well. FOLLOW UP: Next Dose: 6 months Allergies As of Date: 10/11/2024 (No Known Allergies) Date Reviewed: 10/10/2024 Reviewed by: Lea Hargrove LPN - Fully Assessed Primary Visit Diagnosis:Malignant neoplasm of prostate (HCC) [C61] Prescriptions as of 10/26/2024 - amoxicillin-clavulanate potassium (AUGMENTIN) 875-125 mg per tablet Take 1 tablet by mouth two times a day for 10 days. - colestipol (COLESTID) 1 gram tablet Take 1 tablet by mouth two times a day. - citalopram (CELEXA) 20 mg tablet Take 1 tablet by mouth once daily. - tamsulosin (FLOMAX) 0.4 mg Take 1 capsule by mouth two times a day. - oxyCODONE-acetaminophen 5-325 mg (PERCOCET) Take 1-2 tablets by mouth every 4 hours as needed (for pain). - azelastine 0.1% nasal spray Use 1 [place] in each nostril two times a day. - lisinopril-hydroCHLOROthia zide (ZESTORETIC) 10-12.5 mg per tablet Take 1 tablet by mouth once daily. - ergocalciferol 50,000 unit capsule (VITAMIN D2, DRISDOL) Take 1 capsule by mouth two times a week. TO BE TAKEN ORALLY DIRECTED. Take 1 tablet by mouth twice weekly f0kotkr, then decrease to 1 tablet weekly. - naproxen (NAPROSYN) 500 mg tablet Take 1 tablet by mouth two times a day as needed (for pain/inflammation). Take with food. - polyethylene glycol 3350 (MIRALAX) 17 gram/dose powder Take 17 g by mouth once daily. Dissolve dose in 4 - 8 ounces of liquid and take as directed. - aspirin, enteric coated (ASPIRIN, ENTERIC COATED) 81 mg EC tablet Take 1 tablet by mouth once daily. Problem List As Of Date 10/11/2024 Noted Resolved Mixed hyperlipidemia [E78.2] 11/09/2005 Unspecified Asthma [J45.909] 11/09/2005 Personal history of other malignant neoplasm of*03/31/2006 Cervical Spondylosis without Myelopathy [M47.81* Family History of Malignant Neoplasm of Gastroi*05/16/2008 Primary Localized Osteoarthrosis, Shoulder Quin*05/16/2008 ACTINIC KERATOSIS (Premalignant AK) [L57.0] 05/17/2008 Other Seborrheic Keratosis [L82.1] 05/17/2008 09/15/2009 ACTINIC DAMAGE///CHR SOLAR SKIN DAMAGE NOS [L57*05/17/2008 09/15/2009 Rosacea [L71.9] 05/17/2008 Primary hypertension [I10] 09/15/2009 Obesity [E66.9] 09/15/2009 Irritated//Inflamed Seborrheic Keratosis [L82.0]09/23/2009 Solar lentigo [L81.4] 09/23/2009 Bladder Neck Obstruction [N32.0] 10/30/2009 Hypertrophy of prostate with urinary obstructio*05/28/2010 Arthritis of shoulder region, left, degenerativ*08/03/2011 Benign neoplasm of rectum and anal canal [D12.8*08/23/2011 Pain in joint, shoulder region [M25.519] 10/21/2011 Chronic knee pain [M25.569, G89.29] 02/28/2017 Preop examination [Z01.818] 11/21/2023 Elevated prostate specific antigen (PSA) [R97.2*11/21/2023 11/29/2023 Obesity, Class I, BMI 30-34.9 [E66.811] 11/21/2023 Prostate cancer (HCC) [C61] 11/29/2023 Encounter Status:Closed by GREGORY CASAREZ on 10/26/24 Normal [facility] 25(OH)D3 SerPl-mCncon 2024 25-hydroxyvitamin D3 [Mass/Vol] 32.2 ng/mL Normal 31.0-80.0 [facility] Comment on above: Order Comment: Speci men Type: BLOOD SPECIMEN Ordering Facility: [facility] Address: [address] [place] [address] Performed By: #### 1 989-3 #### [facility] CLIA [id number] [address] [place] [address] [place] 25-hydroxyvitamin D3 [Mass/V ol]on 10-10-2024 Interpretation and review of laboratory results Normal [facility] Basic metabolic 2000 panelon 10-10-2024 Anion gap [Moles/Vol] 13 mmol/L Normal 8-15 [facility] Comment on above: Order Comment: Speci men Type: BLOOD SPECIMENOrdering Facility: [facility] Address: [address] [place] [address] Performed By: #### 2 4321-2, 97584-2, 3016-3 ####[facility] LABCLIA [id number] [place] [address] [place] Calcium [Mass/Vol] 10.1 mg/dL Normal 8.5-10.2 [facility] Comment on above: Order Comment: Speci men Type: BLOOD SPECIMENOrdering Facility: [facility] Address: [address] [place], [place] [address] Performed By: #### 2 4321-2, , 3 ####[facility] LABCLIA [id number] [address] [address] [place] Chloride [Moles/Vol] 98 mmol/L Normal 98-107 [facility] Comment on above: Order Comment: Speci men Type: BLOOD SPECIMENOrdering Facility: [facility] Address: [address] [place], [place] [id number] Performed By: #### 2 4321-2, , 3 ####[facility] LABCLIA [id number] [address] [address] [place] CO2 [Moles/Vol] 25 mmol/L Normal 22-30 [facility] Comment on above: Order Comment: Speci men Type: BLOOD SPECIMENOrdering Facility: [facility] Address: [address] [place], [place] [address] Performed By: #### 2 4321-2, , 3015-07 ####[facility] LABCLIA [id number] [address] [address] [place] Creatinine [Mass/Vol] 1.01 mg/dL Normal 0.73-1.22 [facility] Comment on above: Order Comment: Speci men Type: BLOOD SPECIMENOrdering Facility: [facility] Address: [address] [place], [place] [address] Performed By: #### 2 4321-2, , 3 ####[facility] LABCLIA [id number] [address] [address] [place] Creatinine and Glomerular filtration rate.predicted panel (S/P/Bld) 75 mL/min/1.73m??? Normal >=60 [facility] Comment on above: Order Comment: Speci men Type: BLOOD SPECIMENOrdering Facility: [facility] Address: [address] [place] [id number] Result Comment: Ekaterina mated Glomerular Filtration Rate (eGFR) is calculated using the 2020 CKD-EPI creatinine equation. This equation utilizes serum creatinine, sex, and age as parameters. The creatinine assay has traceable calibration to isotope dilution-mass spectrometry. Refer to KDIGO guidelines for clinical interpretation. In patients with unstable renal function, e.g. those with acute kidney injury, the eGFR may not accurately reflect actual GFR. Performed By: #### 2 4321-2, , 3 ####[facility] LABIA [id number] [place] [id number] [place] Glucose [Mass/Vol] 93 mg/dL Normal 74-99 [facility] Comment on above: Order Comment: Radha charles Type: BLOOD SPECIMENOrdering Facility: [facility] Address: [address] [place] [address] Result Comment: The [place] Diabetes Association (ADA) provides guidance for cutoff values for fasting glucose and random glucose. The ADA defines fasting as no caloric intake for at least 8 hours. Fasting plasma glucose results between 100 to 125 mg/dL indicate increased risk for diabetes (prediabetes). Fasting plasma glucose results greater than or equal to 126 mg/dL meet the criteria for diagnosis of diabetes. In the absence of unequivocal hyperglycemia, results should be confirmed by repeat testing. In a patient with classic symptoms of hyperglycemia or hyperglycemic crisis, random plasma glucose results greater than or equal to 200 mg/dL meet the criteria for diagnosis of diabetes. Reference: Standards of Medical Care in Diabetes 2016, [place] [employer] Association. Diabetes Care. 2016.39(Suppl 1). Performed By: #### 2 4321-2, , 3 ####[facility] LABIA [id number] [address] [address] [place] Potassium [Moles/Vol] 4.6 mmol/L Normal 3.7-5.1 [facility] Comment on above: Order Comment: Radha charles Type: BLOOD SPECIMENOrdering Facility: [facility] Address: [address] [place] [address] Performed By: #### 2 4321-2, 36453-6, 6-3 ####[facility] LABIA [id number] [place] [id number] [place] Sodium [Moles/Vol] 136 mmol/L Normal 136-144 [facility] Comment on above: Order Comment: Speci men Type: BLOOD SPECIMENOrdering Facility: [facility] Address: [address] [place] [address] Performed By: #### 2 4321-2, 89074-1, 3016-3 ####[facility] LABIA [id number] [place] [address] [place] Urea nitrogen [Mass/Vol] 22 mg/dL Normal 9-24 [facility] Comment on above: Order Comment: Speci men Type: BLOOD SPECIMENOrdering Facility: [facility] Address: [address] [place] [address] Performed By: #### 2 4321-2, 57887-6, 3016-3 ####[facility] LABIA [id number] [place] [id number] [place] CNOVon 10-10-2024 CNOV Office Visit (INTMWS ) -- ZACHARY SHORT ([id number]) 1945 M Date Time Provider Department 10/10/24 8:20 AM AILIN PIERSON INTMWS During your visit today, we recorded the following information about you: Pulse Blood pressure Weight Height 81/minute 102/61 108.5 kg 1.829 m Ailin Pierson MD 10/10/2024 9:33 AM Addendum We discussed your prostate cancer and related treatments: - You have completed your radiation therapy. The oncologist?s office is expected to call you next week with results. Please follow up with them if you do not hear back. - You mentioned ongoing use of a catheter due to an enlarged prostate. The urologist has discussed the option of surgery to reduce the prostate size and improve bladder function. This would involve an overnight hospital stay. You may decide whether to proceed with this based on your preferences and discussions with the urologist. - Continue taking your prescribed medications, including the testosterone-suppressing injections. You are scheduled to receive your next injection tomorrow, along with a catheter change. We discussed your bone health: - Your recent bone density scan shows that your bone density is within the normal range, and your 10-year risk for major fractures is low. This is reassuring, and no further action is needed at this time. - Your history of fractures is likely related to cancer involvement in the bones. Continue to follow up with your oncologist regarding this. We discussed your bowel issues: - You are experiencing diarrhea and burning pain, which may be related to recent radiation therapy. I have prescribed Colestipol to help manage your diarrhea. Please take this as directed. - If your symptoms persist or worsen, let us know. We discussed your mental health: - You are currently taking Citalopram (Celexa) for depression. I have increased your dose to help manage your symptoms. Please take the new dose as prescribed. - If you experience any side effects or worsening of your mood, contact our office. We discussed your heart health: - Your EKG today showed some changes, including premature ventricular complexes and a left anterior fascicular block. To further evaluate your heart, I have ordered an echocardiogram. Please schedule this test as soon as possible. - At this time, I am not referring you to a leisure travel agent to avoid unnecessary stress. We will review the echocardiogram results and decide on next steps. We discussed your sleep issues: - You are having difficulty sleeping and are using sleeping pills occasionally. Continue to use them as needed, but let us know if your sleep does not improve or if you need additional support. We discussed your recent infections: - You recently completed a course of antibiotics for a urinary tract infection. Continue monitoring for any signs of infection, such as fever, chills, or worsening urinary symptoms, and let us know if they occur. Next steps: - Schedule an echocardiogram as ordered. - Follow up with your oncologist for radiation results and ongoing cancer care. - Follow up with your urologist for your next injection, catheter change, and any further decisions regarding prostate surgery. - Take all prescribed medications as directed, including Colestipol and the increased dose of Citalopram. - Contact our office if you, experience any new or worsening symptoms. Ailin Pierson MD 10/10/2024 12:30 PM Signed Reason for Visit Follow up HPI Zachary is a 79-year-old male with a history of prostate cancer, presenting for follow-up after completing radiation therapy. Zachary recently completed radiation therapy targeting the prostate and is awaiting results, expected next week. He reports ongoing issues with a urinary catheter due to an enlarged prostate obstructing the urethra, causing nocturnal enuresis. He is scheduled for a second injection tomorrow to reduce testosterone levels and is considering a TURP procedure to alleviate urinary obstruction. He also reports diarrhea with associated burning pain, which he attributes to recent radiation therapy. Zachary has been hospitalized four times since April, twice for kidney infections and twice for falls resulting in fractures. He reports difficulty sleeping, averaging 2-3 hours per night, and is currently taking a sleep aid as needed. He also reports feelings of depression and is taking citalopram, which he feels is effective. He denies seeing a leisure travel agent recently. Social History Tobacco Use Smoking status: Never Passive exposure: Never Smokeless tobacco: Never Vaping Use Vaping status: Never Used Substance Use Topics Alcohol use: Yes Comment: socially, 3-4 beers/year Drug use: No Past medical history, appointments, medications, allergies reviewed. Pertinent Lab/Diagnostic Studies are reviewed and discussed today Curr (more content not included)... Normal [facility] ECG COMPLETEon 10-10-2024 ECG COMPLETE Ventricular Rate : 6 7 BPM Atrial Rate : 67 BPM P-R Interval : 178 ms QRS Duration : 118 ms Q-T Interval : 424 ms QTC Calculation(Bazett) : 448 ms Calculated R [place] : -48 degrees Calculated T [place] : 31 degrees SINUS RHYTHM WITH PREMATURE SUPRAVENTRICULAR COMPLEXES LEFT ANTERIOR FASCICULAR BLOCK MINIMAL VOLTAGE CRITERIA FOR LVH, MAY BE NORMAL VARIANT ( R in aVL ) Confirmed by MD SEN, QAB ([id number]) on 10/15/2024 12:38:35 PM NAME : ZACHARY SHORT PID : [id number] : 1945 Gender : Male Race : ORD : [id number] Procedure Date : Oct 10 2024 09:20:28 Edit Date : Oct 15 2024 12:38:36 Diagnosis: SINUS RHYTHM WITH PREMATURE SUPRAVENTRICULAR COMPLEXES LEFT ANTERIOR FASCICULAR BLOCK MINIMAL VOLTAGE CRITERIA FOR LVH, MAY BE NORMAL VARIANT ( R in aVL ) Confirmed by MD CHATTERJEE QARAB ([id number]) on 10/15/2024 12:38:35 PM Test Reason : Z51.81 Medication monitoring encounter Location : 185 : [facility] Overread By : MD CHATTERJEE QARAB Edited By : MD CHATTERJEE QARAB Referred By : , Acquired by : Devon montanez [facility] Magnesium SerPl-mCncon 10-10 Magnesium [Mass/Vol] 2.1 mg/dL Normal 1.7-2.3 [facility] Comment on above: Order Comment: Speci men Type: BLOOD SPECIMENOrdering Facility: [facility] Address: [address] [place] [address] Performed By: #### 2 4321-2, 79341-5, 6-3 ####[facility] [id number] [place] [address] [place] TSH SerPl-aCncon 10-10-2024 TSH Qn 3.280 m[IU]/L Normal 0.270-4.200 [facility] Comment on above: Order Comment: Speci men Type: BLOOD SPECIMENOrdering Facility: [facility] Address: [address] [place] [address] Performed By: #### 2 4321-2, 76838-1, 6-3 ####[facility] [id number] [place] [address] [place] VITAMIN D 25 HYDROXYon 10-10 25-hydroxyvitamin D3 [Mass/Vol] 32.2 ng/mL 31.0 - 80.0 ng/mL [facility] BD DXA - AXIAL SKELETONon 05 -12-2025 BD DXA - AXIAL SKELETON * * *Final Report* * * DATE OF EXAM: Oct 08 2024 8:44AM WRB 0804 - BD DXA - AXIAL SKELETON / PROCEDURE REASON: Other osteoporosis, unspecified pathological fracture presence * * * * Physician Interpretation * * * * EXAMINATION: DXA BONE DENSITOMETRY BD DXA - AXIAL SKELETON PATIENT DEMOGRAPHICS: Age: 79 years, Gender: Male SCANNER INFORMATION: DXA Model: PetHub - Flowgram C [id number] Date Scanned: 10/08/2024 8:44 AM CLINICAL HISTORY: DIAGNOSTIC Other osteoporosis, unspecified pathological fracture presence . RISK FACTORS FOR OSTEOPOROSIS AND ASSOCIATED FRACTURES REPORTED BY THIS PATIENT: Please refer to Bone Health Questionnaire in the EMR CURRENT THERAPY: Please refer to Bone Health Questionnaire in the EMR TECHNICAL LIMITATIONS: Degenerative disease of the spine RESULTS: Lumbar spine (L1, L3, L4): 1.396 g/cm2, T-score 2.8, Z-score 4.0 Right Femoral Neck: 1.016 g/cm2, T-score 0.6, Z-score 2.2 Right Total Hip: 1.078 g/cm2, T-score 0.3, Z-score 1.4 Left Femoral Neck: 0.985 g/cm2, T-score 0.4, Z-score 2.0 Left Total Hip: 1.104 g/cm2, T-score 0.5, Z-score 1.6 No comparison data - the patient has not had a previous bone density in the [facility] or the previous bone density was performed on a different DXA machine (new, updated model or different location) within the [facility]. VERTEBRAL FRACTURE ASSESSMENT Not performed. IMPRESSION: THE LOWEST T-SCORE IS 0.4 IN THE LEFT HIP 1) DIAGNOSIS (based on BMD alone): NORMAL BONE DENSITY Caution: Medical conditions other than osteoporosis may cause low bone density, such as osteomalacia or renal osteodystrophy. Clinical correlation is necessary. 2) FRACTURE RISK (based on FRAX): 10-year absolute fracture risk: - major osteoporotic fracture = 5.8 % - hip fracture = 0.9 % - A diagnosis of Osteoporosis, a 10 year probability of hip fracture greater than or equal to 3% or a 10 year probability of any major osteoporosis-related fracture greater than or equal to 20% should be considered for treatment. - DXA scanner generated FRAX calculations may slightly differ from online FRAX calculations due to differences in software versions. - All recommendations and calculations are to be considered as guidelines and should not replace sound clinical judgement - Caution: Fracture risk may be increased independent of BMD in patients with corticosteroid use, age greater than 65 years, or a history of prior fragility fracture. RECOMMENDATIONS: Follow-up in 2 years or as clinically indicated. Patients that are taking corticosteroids, are transplant recipients or have hyperparathyroidism should have annual follow-up. Follow-up scans should always be done on the same machine for accurate comparison. FOR MORE INFORMATION ABOUT DIAGNOSIS AND TREATMENT: [facility] Center for Osteoporosis and Metabolic Bone Disease:? [email or web address]/arthritis/oste o National Osteoporosis Foundation:? www.nof.org International Society of Clinical Densitometry www.iscd.org Slitter Cut Off Operator: ROCÍO Transcribe Date/Time: Oct 08 2024 8:54A Dictated by : ROXI DEVRIES MD This examination was interpreted and the report reviewed and electronically signed by: ROXI DEVRIES MD on Oct 08 2024 8:56AM EST [id number] 0.4 Normal [facility] DXA Skeletal system.axial Vi ews for bone densityOrdered By: [facility]cf Provider on 10-08-2024 LOWEST T-SCORE 0.4 [facility] DXA Skeletal system.axial Vi ews for bone densityon 10-08-2024 IMPRESSION: THE LOWEST T-SCORE IS 0.4 IN THE LEFT HIP 1) DIAGNOSIS (based on BMD alone): NORMAL BONE DENSITY Caution: Medical conditions other than osteoporosis may cause low bone density, such as osteomalacia or renal osteodystrophy. Clinical correlation is necessary. 2) FRACTURE RISK (based on FRAX): 10-year absolute fracture risk: - major osteoporotic fracture = 5.8 % - hip fracture = 0.9 % - A diagnosis of Osteoporosis, a 10 year probability of hip fracture greater than or equal to 3% or a 10 year probability of any major osteoporosis-related fracture greater than or equal to 20% should be considered for treatment. - DXA scanner generated FRAX calculations may slightly differ from online FRAX calculations due to differences in software versions. - All recommendations and calculations are to be considered as guidelines and should not replace sound clinical judgement - Caution: Fracture risk may be increased independent of BMD in patients with corticosteroid use, age greater than 65 years, or a history of prior fragility fracture. RECOMMENDATIONS: Follow-up in 2 years or as clinically indicated. Patients that are taking corticosteroids, are transplant recipients or have hyperparathyroidism should have annual follow-up. Follow-up scans should always be done on the same machine for accurate comparison. FOR MORE INFORMATION ABOUT DIAGNOSIS AND TREATMENT: [facility] Center for Osteoporosis and Metabolic Bone Disease:? www.ccf.org/arthritis/oste o National Osteoporosis Foundation:? www.nof.org International Society of Clinical Densitometry www.iscd.org Slitter Cut Off Operator: ROCÍO Transcribe Date/Time: Oct 08 2024 8:54A Dictated by : ROXI DEVRIES MD This examination was interpreted and the report reviewed and electronically signed by: ROXI DEVRIES MD on Oct 08 2024 8:56AM [facility] [email or web address]] DIVISION OF RADIOLOGY * * *Final Report* * * DATE OF EXAM: Oct 08 2024 8:44AM [facility] 0804 - BD DXA - AXIAL SKELETON / PROCEDURE REASON: Other osteoporosis, unspecified pathological fracture presence * * * * Physician Interpretation * * * * EXAMINATION: DXA BONE DENSITOMETRY BD DXA - AXIAL SKELETON PATIENT DEMOGRAPHICS: Age: 79 years, Gender: Male SCANNER INFORMATION: DXA Model: [employer] - Flowgram C [id number] Date Scanned: 10/08/2024 8:44 AM CLINICAL HISTORY: DIAGNOSTIC Other osteoporosis, unspecified pathological fracture presence . RISK FACTORS FOR OSTEOPOROSIS AND ASSOCIATED FRACTURES REPORTED BY THIS PATIENT: Please refer to Bone Health Questionnaire in the EMR CURRENT THERAPY: Please refer to Bone Health Questionnaire in the EMR TECHNICAL LIMITATIONS: Degenerative disease of the spine RESULTS: Lumbar spine (L1, L3, L4): 1.396 g/cm2, T-score 2.8, Z-score 4.0 Right Femoral Neck: 1.016 g/cm2, T-score 0.6, Z-score 2.2 Right Total Hip: 1.078 g/cm2, T-score 0.3, Z-score 1.4 Left Femoral Neck: 0.985 g/cm2, T-score 0.4, Z-score 2.0 Left Total Hip: 1.104 g/cm2, T-score 0.5, Z-score 1.6 No comparison data - the patient has not had a previous bone density in the [facility] or the previous bone density was performed on a different DXA machine (new, updated model or different location) within the [facility]. VERTEBRAL FRACTURE ASSESSMENT Not performed. DIVISION OF RADIOLOGY Provider, Virginia Rola Mosher - 10/08/2024 * * *Final Report* * * DATE OF EXAM: Oct 08 2024 8:44AM WRB [id number] - BD DXA - AXIAL SKELETON / PROCEDURE REASON: Other osteoporosis, unspecified pathological fracture presence * * * * Physician Interpretation * * * * EXAMINATION: DXA BONE DENSITOMETRY BD DXA - AXIAL SKELETON PATIENT DEMOGRAPHICS: Age: 79 years, Gender: Male SCANNER INFORMATION: DXA Model: Pet[employer] - Flowgram C [id number] Date Scanned: 10/08/2024 8:44 AM CLINICAL HISTORY: DIAGNOSTIC Other osteoporosis, unspecified pathological fracture presence . RISK FACTORS FOR OSTEOPOROSIS AND ASSOCIATED FRACTURES REPORTED BY THIS PATIENT: Please refer to Bone Health Questionnaire in the EMR CURRENT THERAPY: Please refer to Bone Health Questionnaire in the EMR TECHNICAL LIMITATIONS: Degenerative disease of the spine RESULTS: Lumbar spine (L1, L3, L4): 1.396 g/cm2, T-score 2.8, Z-score 4.0 Right Femoral Neck: 1.016 g/cm2, T-score 0.6, Z-score 2.2 Right Total Hip: 1.078 g/cm2, T-score 0.3, Z-score 1.4 Left Femoral Neck: 0.985 g/cm2, T-score 0.4, Z-score 2.0 Left Total Hip: 1.104 g/cm2, T-score 0.5, Z-score 1.6 No comparison data - the patient has not had a previous bone density in the [facility] or the previous bone density was performed on a different DXA machine (new, updated model or different location) within the [facility]. VERTEBRAL FRACTURE ASSESSMENT Not performed. IMPRESSION IMPRESSION: THE LOWEST T-SCORE IS 0.4 IN THE LEFT HIP 1) DIAGNOSIS (based on BMD alone): NORMAL BONE DENSITY Caution: Medical conditions other than osteoporosis may cause low bone density, such as osteomalacia or renal osteodystrophy. Clinical correlation is necessary. 2) FRACTURE RISK (based on FRAX): 10-year absolute fracture risk: - major osteoporotic fracture = 5.8 % - hip fracture = 0.9 % - A diagnosis of Osteoporosis, a 10 year probability of hip fracture greater than or equal to 3% or a 10 year probability of any major osteoporosis-related fracture greater than or equal to 20% should be considered for treatment. - DXA scanner generated FRAX calculations may slightly differ from online FRAX calculations due to differences in software versions. - All recommendations and calculations are to be considered as guidelines and should not replace sound clinical judgement - Caution: Fracture risk may be increased independent of BMD in patients with corticosteroid use, age greater than 65 years, or a history of prior fragility fracture. RECOMMENDATIONS: Follow-up in 2 years or as clinically indicated. Patients that are taking corticosteroids, are transplant recipients or have hyperparathyroidism should have annual follow-up. Follow-up scans should always be done on the same machine for accurate comparison. FOR MORE INFORMATION ABOUT DIAGNOSIS AND TREATMENT: [facility] for Osteoporosis and Metabolic Bone Disease:? www.ccf.org/arthritis/oste o National Osteoporosis Foundation:? www.nof.org International Society of Clinical Densitometry www.iscd.org Slitter Cut Off Operator: ROCÍO Transcribe Date/Time: Oct 08 2024 8:54A Dictated by : ROXI DEVRIES MD This examination was interpreted and the report reviewed and electronically signed by: ROXI DEVRIES MD on Oct 08 2024 8:56AM EST [facility] Radiology Study observation (narrative) [facility] Bacteria Ur Culton 5 Bacteria identified Cx Nom (U) ORGANISM ID: 1 >=100,000 CFU/ml Enterococcus faecalis Cephalosporins, clindamycin, and TMP-SMX are not effective for the treatment of enterococcal infections. ORGANISM ID: 1 (ENTEROCOCCUS FAECALIS) ANTIBIOTIC INTERPRETATION DYLAN STATUS REFERENCE RANGE Ampicillin S <=2 F Susceptible <=8 , Resistant >8 Vancomycin S 2 F Susceptible <=4 , Intermediate >4 , Resistant >16 Nitrofurantoin S <=16 F Susceptible <=32 , Intermediate >32 , Resistant >64 Abnormal [facility] Comment on above: Performed By: #### U A #### [facility] CLIA [id number] [address] [place] [address] STATES OF [facility] CNOVon 09-25-2024 CNOV Office Visit (UROLMD ) -- ZACHARY SHORT ([id number]) 1945 M Date Time Provider Department 09/25/24 10:30 AM JUAN BLANTON JR During your visit today, we recorded the following information about you: Juan Blanton Jr., MD 09/25/2024 11:27 AM Signed ESTABLISHED PATIENT OFFICE VISIT HPI Zachary Short is a 79 year old male who presents sp trus bx 04/21. Did well after surgery. Gland 67cc. Path benign. Psa was 14.2 then and is now 12.17. no fever. No uti. Feels well otherwise. Options discussed. 10/11/23 - here to discuss psa and mri prostate. Psa now 17. Mri prostate 1 pirads 5 lesion. Gland 66 cc. No change in luts. Options discussed. 12/06/23 - sp mri fusion bx. Path on lesion showed G7(3+4). Rest of bx neg. Gland 66.8cc. mri had showed a ? Lesion in pelvic bone. No LAD. Options discussed. 01/03/24 - bone scan normal. Repeat psa 12. Options discussed. No fever. No uti. 09/25/24 - since last seen completed xrt. Dr. Soto gave lupron injection. Is now catheter dependent. Was getting UTI's with cic. Interested in becoming catheter independent. Options discussed. Would like to proceed with TURP LAB: Creatinine Date Value Ref Range Status 04/19/2024 0.98 0.73 - 1.22 mg/dL Final PSA (ng/mL) Date Value 06/25/2024 17.31 12/29/2023 12.32 08/18/2023 17.02 05/10/2023 12.17 03/25/2023 14.20 PSA Screening (ng/mL) Date Value 03/23/2022 9.18 10/06/2016 2.58 Glucose, Urine Date Value 08/28/2024 Negative 08/31/2011 Negative mg/dL Bilirubin, Urine (no units) Date Value 08/28/2024 Negative 08/31/2011 Negative Ketones, Urine (no units) Date Value 08/28/2024 Negative 08/31/2011 Negative Specific [place], Ur (no units) Date Value 08/28/2024 1.015 08/31/2011 1.020 Hemoglobin/Blood,Ur Date Value 08/28/2024 1+ 08/31/2011 Negative pH, Urine (no units) Date Value 08/28/2024 6.0 08/31/2011 5.5 Protein, Urine Date Value 08/28/2024 2+ 08/31/2011 Negative mg/dL Nitrites (no units) Date Value 08/28/2024 Negative 08/31/2011 Negative WBC, Urine (/HPF) Date Value 08/31/2011 3-5 MEDICATIONS: tamsulosin (FLOMAX) 0.4 mgTake 1 capsule by mouth two times a day.Disp: 180 capsuleRfl: 3 citalopram hydrobromide (CELEXA) 10 mg tabletTake 1 tablet by mouth once daily. Start with half a pill a week and then go to a full pillDisp: 90 tabletRfl: 3 oxyCODONE-acetaminophen 5-325 mg (PERCOCET)Take 1-2 tablets by mouth every 4 hours as needed (for pain).Disp: Rfl: azelastine 0.1% nasal sprayUse 1 [place] in each nostril two times a day.Disp: 30 mLRfl: 1 lisinopril-hydroCHLOROthia zide (ZESTORETIC) 10-12.5 mg per tabletTake 1 tablet by mouth once daily.Disp: 90 tabletRfl: 3 ergocalciferol 50,000 unit capsule (VITAMIN D2, DRISDOL)Take 1 capsule by mouth two times a week. TO BE TAKEN ORALLY DIRECTED. Take 1 tablet by mouth twice weekly [id number], then decrease to 1 tablet weekly.Disp: 8 capsuleRfl: 5 ramelteon (ROZEREM) 8 mg tabletTake 1 tablet by mouth daily at bedtime.Disp: 30 tabletRfl: 1 (Patient not taking: Reported on 09/25/2024) naproxen (NAPROSYN) 500 mg tabletTake 1 tablet by mouth two times a day as needed (for pain/inflammation). Take with food.Disp: 30 tabletRfl: 1 (Patient not taking: Reported on 06/26/2024) polyethylene glycol 3350 (MIRALAX) 17 gram/dose powderTake 17 g by mouth once daily. Dissolve dose in 4 - 8 ounces of liquid and take as directed.Disp: 510 gRfl: 0 (Patient not taking: Reported on 09/25/2024) aspirin, enteric coated (ASPIRIN, ENTERIC COATED) 81 mg EC tabletTake 1 tablet by mouth once daily.Disp: Rfl: (Patient not taking: Reported on 06/26/2024) REVIEW OF SYSTEMS Review of Systems Constitutional: Negative. Respiratory: Negative. Cardiovascular: Negative. Gastrointestinal: Negative. Genitourinary: Negative. Skin: Negative. Neurological: Negative. Psychiatric/Behavioral: Negative. 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 Only seasonal now FAMILY HISTORY Problem Relation Age of Onset Colon Cancer Father Cancer Mother metastatic melanoma SOCIAL HISTORY Social History Tobacco Use Smoking status: Never Passive exposure: Never Smokeless tobacco: Never Vaping Use Vaping status: Never Used Substance Use Topics Alcohol use: Yes Comment: socially, 3-4 beers/year Drug use: No PHYSICAL EXAMINATION General appearance: Well appearing, alert, in no acute distress, and well-hydrated, well nourished Skin: Skin color, textur (more content not included)... Normal [facility] CNOVon 09-18-2024 CNOV Office Visit (RADTWS ) -- ZACHARY SHORT ([id number]) 1945 M Date Time Provider Department 09/18/24 2:00 PM VINCE HUFFMAN During your visit today, we recorded the following information about you: Temperature Pulse Blood pressure 97.7 degrees 64/minute 111/58 Mali Fernández, RN 09/18/2024 2:30 PM Signed Radiation Therapy - Nursing Note (OTV) PATIENT NAME: Zachary Short PATIENT September 18, 2024 [facility] FACILITY/LOCATION: [place] NURSING NOTE TYPE: PROSTATE - MALE PELVIS Subjective Data some diarrhea 2 times a day, afraid to take imodium Additional Data Do you want to see a Physical Science Technician? No Status: Patient is male Stress Scale: On a scale of 0 to 10, what number best describes how much distress you have experienced in the past week?(0 being no distress and 10 being extreme distress) 2 Social work notified: Pt denied need to see addiction social worker at this time. Nursing Assessment Fatigue: moderate; causing difficulty performing some activities Appetite: good Nutritional Intake: Regular oral intake. Weight Gain/Loss: Not applicable Ambulatory weight history: Last 6 Encounter Wt Readings: Date: Wt: 08/28/2024 107 kg (236 lb) 06/29/2024 110.2 kg (243 lb) 06/26/2024 110.7 kg (244 lb) 05/16/2024 109.3 kg (241 lb) 04/23/2024 111 kg (244 lb 11.4 oz) 01/05/2024 113.4 kg (250 lb) Nausea:None Vomiting: None Bowel Function: diarrhea 1 - abdominal cramping; two or less soft or liquid bowel Erythema/Hyperpigmentation :none Desquamation:none Rash:none Skin Care: Aquaphor Skin Sensation: mild itching Focused Assessment PROSTATE - MALE PELVIS: Rectal bleeding: No. Rectal pain: No. Bladder function: no problems. Urinary frequency (D/N): mahoney/mahoney clear yellow. SIGNED by: LAY Sagastume Daesung, MD 09/18/2024 2:30 PM Signed Radiation Oncology - On Treatment Review (OTR) Note PATIENT NAME: Zachary Short PATIENT DIAGNOSIS: Stage IIA, T1c cN0, prostate adenocarcinoma with Nordheim score 7 (3+4), grade group 2, and PSA 17.31 ng/mL. He is on hormonal therapy. COURSE: definitive AREA TREATED: Pelvis/prostate/SV CURRENT DOSE: 7000 cGy in 28 fx PLANNED DOSE: 7000 cGy in 28 fx SUBJECTIVE: He is doing well without any specific new complaints. EXAM: KPS: 90 General Appearance: Alert and oriented. No acute distress. IMAGING/LAB RESULTS: None Treatment chart checked: Yes Patient treatment site reviewed and verified:Yes CBCTs reviewed and current:Yes Medications started: None ASSESSMENT/PLAN: Clinically stable. No signs of toxicity. He finished radiation treatment today as planned. Follow-up with me in four weeks. Vince Huffman MD Allergies As of Date: 09/18/2024 (No Known Allergies) Date Reviewed: 09/18/2024 Reviewed by: Mali Fernández RN - Fully Assessed Reason for Visit: Radiotherapy On-treatment Visit [1722] Primary Visit Diagnosis:Prostate cancer (HCC) [C61] Prescriptions as of 09/18/2024 - citalopram hydrobromide (CELEXA) 10 mg tablet Take 1 tablet by mouth once daily. Start with half a pill a week and then go to a full pill - oxyCODONE-acetaminophen 5-325 mg (PERCOCET) Take 1-2 tablets by mouth every 4 hours as needed (for pain). - ramelteon (ROZEREM) 8 mg tablet Take 1 tablet by mouth daily at bedtime. - azelastine 0.1% nasal spray Use 1 [place] in each nostril two times a day. - lisinopril-hydroCHLOROthia zide (ZESTORETIC) 10-12.5 mg per tablet Take 1 tablet by mouth once daily. - tamsulosin (FLOMAX) 0.4 mg Take 1 capsule by mouth daily at bedtime. - ergocalciferol 50,000 unit capsule (VITAMIN D2, DRISDOL) Take 1 capsule by mouth two times a week. TO BE TAKEN ORALLY DIRECTED. Take 1 tablet by mouth twice weekly [id number], then decrease to 1 tablet weekly. - naproxen (NAPROSYN) 500 mg tablet Take 1 tablet by mouth two times a day as needed (for pain/inflammation). Take with food. - polyethylene glycol 3350 (MIRALAX) 17 gram/dose powder Take 17 g by mouth once daily. Dissolve dose in 4 - 8 ounces of liquid and take as directed. - aspirin, enteric coated (ASPIRIN, ENTERIC COATED) 81 mg EC tablet Take 1 tablet by mouth once daily. Problem List As Of Date 09/18/2024 Noted Resolved Mixed hyperlipidemia [E78.2] 11/09/2005 Unspecified Asthma [J45.909] 11/09/2005 Personal history of other malignant neoplasm of*03/31/2006 Cervical Spondylosis without Myelopathy [M47.81* Family History of Malignant Neoplasm of Gastroi*05/16/2008 Primary Localized Osteoarthrosis, Shoulder Quin*05/16/2008 ACTINIC KERATOSIS (Premalignant AK) [L57.0] 05/17/2008 Other Seborrheic Keratosis [L82.1] 05/17/2008 09/15/2009 ACTINIC DAMAGE///CHR SOLAR SKIN DAMAGE NOS [L57*05/17/2008 09/15/2009 Rosacea [L71.9] 05/17/2008 Primary hypertension [I10] 09/15/2009 Obesity [E66.9] 09/15/2009 Irritated//Inflamed Seborrheic Kerato (more content not included)... Normal [facility] CNOVon 09-11-2024 CNOV Office Visit (RADTWS ) -- ZACHARY SHORT ([id number]) 1945 M Date Time Provider Department 09/11/24 2:00 PM VINCE HUFFMAN During your visit today, we recorded the following information about you: Temperature Pulse Blood pressure 97.1 degrees 82/minute 114/66 Mali Fernández RN 09/11/2024 2:23 PM Signed Radiation Therapy - Nursing Note (OTV) PATIENT NAME: Zachary Short PATIENT September 11, 2024 [facility] FACILITY/LOCATION: [facility] NOTE TYPE: PROSTATE - MALE PELVIS Subjective Data some fatigue, a little diarrhea has not taken imodium, seems to alternate with constipation Additional Data Do you want to see a Physical Science Technician? No Status: Patient is male Stress Scale: On a scale of 0 to 10, what number best describes how much distress you have experienced in the past week?(0 being no distress and 10 being extreme distress) 3 Social work notified: Pt denied need to see addiction social worker at this time. Nursing Assessment Fatigue: increased fatigue over baseline but not altering normal activities Appetite: good Nutritional Intake: Regular oral intake. Weight Gain/Loss: Not applicable Ambulatory weight history: Last 6 Encounter Wt Readings: Date: Wt: 08/28/2024 107 kg (236 lb) 06/29/2024 110.2 kg (243 lb) 06/26/2024 110.7 kg (244 lb) 05/16/2024 109.3 kg (241 lb) 04/23/2024 111 kg (244 lb 11.4 oz) 01/05/2024 113.4 kg (250 lb) Nausea:None Vomiting: None Bowel Function: alternates with normal to constipation to diarrhea Erythema/Hyperpigmentation :none Desquamation:none Rash:none Skin Care: Aquaphor Skin Sensation: Within Normal Limits Focused Assessment PROSTATE - MALE PELVIS: Rectal bleeding: No. Rectal pain: Minimal. Bladder function: no problems. Urinary frequency (D/N): has mahoney/clear pale yellow. SIGNED by: LAY Sagastume Daesung, MD 09/11/2024 2:23 PM Signed Radiation Oncology - On Treatment Review (OTR) Note PATIENT NAME: Zachary Short PATIENT DIAGNOSIS: Stage IIA, T1c cN0, prostate adenocarcinoma with Lisbeth score 7 (3+4), grade group 2, and PSA 17.31 ng/mL. He is on hormonal therapy. COURSE: definitive AREA TREATED: Pelvis/prostate/SV CURRENT DOSE: 5750 cGy in 23 fx PLANNED DOSE: 7000 cGy in 28 fx SUBJECTIVE: He is doing well without any specific new complaints. EXAM: KPS: 90 General Appearance: Alert and oriented. No acute distress. IMAGING/LAB RESULTS: None Treatment chart checked: Yes Patient treatment site reviewed and verified:Yes CBCTs reviewed and current:Yes Medications started: None ASSESSMENT/PLAN: Clinically stable. No signs of toxicity. Continue radiation treatment as planned. Vince Huffman MD Allergies As of Date: 09/11/2024 (No Known Allergies) Date Reviewed: 09/11/2024 Reviewed by: Mali Fernández RN - Fully Assessed Reason for Visit: Radiotherapy On-treatment Visit [1722] Primary Visit Diagnosis:Prostate cancer (HCC) [C61] Prescriptions as of 09/11/2024 - citalopram hydrobromide (CELEXA) 10 mg tablet Take 1 tablet by mouth once daily. Start with half a pill a week and then go to a full pill - oxyCODONE-acetaminophen 5-325 mg (PERCOCET) Take 1-2 tablets by mouth every 4 hours as needed (for pain). - ramelteon (ROZEREM) 8 mg tablet Take 1 tablet by mouth daily at bedtime. - azelastine 0.1% nasal spray Use 1 [place] in each nostril two times a day. - lisinopril-hydroCHLOROthia zide (ZESTORETIC) 10-12.5 mg per tablet Take 1 tablet by mouth once daily. - tamsulosin (FLOMAX) 0.4 mg Take 1 capsule by mouth daily at bedtime. - ergocalciferol 50,000 unit capsule (VITAMIN D2, DRISDOL) Take 1 capsule by mouth two times a week. TO BE TAKEN ORALLY DIRECTED. Take 1 tablet by mouth twice weekly [id number], then decrease to 1 tablet weekly. - naproxen (NAPROSYN) 500 mg tablet Take 1 tablet by mouth two times a day as needed (for pain/inflammation). Take with food. - polyethylene glycol 3350 (MIRALAX) 17 gram/dose powder Take 17 g by mouth once daily. Dissolve dose in 4 - 8 ounces of liquid and take as directed. - aspirin, enteric coated (ASPIRIN, ENTERIC COATED) 81 mg EC tablet Take 1 tablet by mouth once daily. Problem List As Of Date 09/11/2024 Noted Resolved Mixed hyperlipidemia [E78.2] 11/09/2005 Unspecified Asthma [J45.909] 11/09/2005 Personal history of other malignant neoplasm of*03/31/2006 Cervical Spondylosis without Myelopathy [M47.81* Family History of Malignant Neoplasm of Gastroi*05/16/2008 Primary Localized Osteoarthrosis, Shoulder Quin*05/16/2008 ACTINIC KERATOSIS (Premalignant AK) [L57.0] 05/17/2008 Other Seborrheic Keratosis [L82.1] 05/17/2008 09/15/2009 ACTINIC DAMAGE///CHR SOLAR SKIN DAMAGE NOS [L57*05/17/2008 09/15/2009 Rosacea [L71.9] 05/17/2008 Primary hypertension [I10] 09/15/2009 Obesity [E66.9] 09/15/2009 Irritated//Inflamed Sebor (more content not included)... Normal [facility] CNOVon 09-04-2024 CNOV Office Visit (RADTWS ) -- HANZACHARY PATEL ([id number]) 1945 M Date Time Provider Department 09/04/24 2:00 PM VINCE HUFFMAN RADTWS During your visit today, we recorded the following information about you: Temperature Pulse Blood pressure 97.5 degrees 80/minute 142/67 Mali Fernández, LAY 09/04/2024 2:33 PM Signed Radiation Therapy - Nursing Note (OTV) PATIENT NAME: Zachary Short PATIENT September 04, 2024 [facility] FACILITY/LOCATION: [place] NURSING NOTE TYPE: PROSTATE - MALE PELVIS Subjective Data has mahoney in, has finished Keflex has also finished pyridium Additional Data Do you want to see a Physical Science Technician? No Status: Patient is male Stress Scale: On a scale of 0 to 10, what number best describes how much distress you have experienced in the past week?(0 being no distress and 10 being extreme distress) 0 Social work notified: Pt denied need to see addiction social worker at this time. Nursing Assessment Fatigue: increased fatigue over baseline but not altering normal activities Appetite: good Nutritional Intake: Regular oral intake. Weight Gain/Loss: Not applicable Ambulatory weight history: Last 6 Encounter Wt Readings: Date: Wt: 08/28/2024 107 kg (236 lb) 06/29/2024 110.2 kg (243 lb) 06/26/2024 110.7 kg (244 lb) 05/16/2024 109.3 kg (241 lb) 04/23/2024 111 kg (244 lb 11.4 oz) 01/05/2024 113.4 kg (250 lb) Nausea:None Vomiting: None Bowel Function: normal bowel movements Erythema/Hyperpigmentation :none Desquamation:none Rash:none Skin Care: Aquaphor Skin Sensation: Within Normal Limits Focused Assessment PROSTATE - MALE PELVIS: Rectal bleeding: No. Rectal pain: No. Bladder function: no problems, retention. Urinary frequency (D/N): Pt has mahoney in and it is clamped for radiation treatment, pt reports urine is clear, /mahoney. SIGNED by: LAY Sagastume Daesung, MD 09/04/2024 2:33 PM Signed Radiation Oncology - On Treatment Review (OTR) Note PATIENT NAME: Zachary Short PATIENT DIAGNOSIS: Stage IIA, T1c cN0, prostate adenocarcinoma with Nordheim score 7 (3+4), grade group 2, and PSA 17.31 ng/mL. He is on hormonal therapy. COURSE: definitive AREA TREATED: Pelvis/prostate/SV CURRENT DOSE: 4500 cGy in 18 fx PLANNED DOSE: 7000 cGy in 28 fx SUBJECTIVE: He is doing well without any specific new complaints. He had UTI and was treated with antibiotics. He feels a lot better and he denies any pelvic pain. He had Mahoney catheter now and he reports that his urine is clean now. He will talk to his urologist to see when his Mahoney catheter can come out. EXAM: KPS: 90 General Appearance: Alert and oriented. No acute distress. IMAGING/LAB RESULTS: None Treatment chart checked: Yes Patient treatment site reviewed and verified:Yes CBCTs reviewed and current:Yes Medications started: None ASSESSMENT/PLAN: Clinically stable. No signs of toxicity. Continue radiation treatment as planned. Vince Huffman MD Allergies As of Date: 09/04/2024 (No Known Allergies) Date Reviewed: 09/04/2024 Reviewed by: Mali Fernández RN - Fully Assessed Reason for Visit: Radiotherapy On-treatment Visit [1722] Primary Visit Diagnosis:Prostate cancer (HCC) [C61] Prescriptions as of 09/04/2024 - citalopram hydrobromide (CELEXA) 10 mg tablet Take 1 tablet by mouth once daily. Start with half a pill a week and then go to a full pill - oxyCODONE-acetaminophen 5-325 mg (PERCOCET) Take 1-2 tablets by mouth every 4 hours as needed (for pain). - ramelteon (ROZEREM) 8 mg tablet Take 1 tablet by mouth daily at bedtime. - azelastine 0.1% nasal spray Use 1 [place] in each nostril two times a day. - lisinopril-hydroCHLOROthia zide (ZESTORETIC) 10-12.5 mg per tablet Take 1 tablet by mouth once daily. - tamsulosin (FLOMAX) 0.4 mg Take 1 capsule by mouth daily at bedtime. - ergocalciferol 50,000 unit capsule (VITAMIN D2, DRISDOL) Take 1 capsule by mouth two times a week. TO BE TAKEN ORALLY DIRECTED. Take 1 tablet by mouth twice weekly [id number], then decrease to 1 tablet weekly. - naproxen (NAPROSYN) 500 mg tablet Take 1 tablet by mouth two times a day as needed (for pain/inflammation). Take with food. - polyethylene glycol 3350 (MIRALAX) 17 gram/dose powder Take 17 g by mouth once daily. Dissolve dose in 4 - 8 ounces of liquid and take as directed. - aspirin, enteric coated (ASPIRIN, ENTERIC COATED) 81 mg EC tablet Take 1 tablet by mouth once daily. Problem List As Of Date 09/04/2024 Noted Resolved Mixed hyperlipidemia [E78.2] 11/09/2005 Unspecified Asthma [J45.909] 11/09/2005 Personal history of other malignant neoplasm of*03/31/2006 Cervical Spondylosis without Myelopathy [M47.81* Family History of Malignant Neoplasm of Gastroi*05/16/2008 Primary Localized Osteoarthrosis, Shoulder Quin*05/16/2008 ACTINIC KERATOSIS (Premalignant AK) [L57.0] 05/17/2008 (more content not included)... Normal [facility] Culture, Blood (WB)on 2024 CUB Blood cultures x2, f rom two different sites No growth in 5 days. Normal [facility] Comment on above: Performed By: #### L [id number] #### [facility] [address], [place], [id number] Urine Cultureon 08-31-2024 [facility] Enterobacter cloacae complex [place] Count 80,000-100,000 Enterobacter cloacae complex: REACTION Cefepime Islt DYLAN <=0.12 Ciprofloxacin Islt DYLAN <=0.06 S Gentamicin Islt DYLAN <=1 S levoFLOXacin Islt DYLAN <=0.12 S Meropenem Islt DYLAN <=0.25 S Nitrofurantoin Islt DYLAN <=16 S Pip+Tazo Islt DYLAN <=4 S TMP SMX Islt DYLAN <=20 S Normal [facility] Comment on above: Performed By: #### L 400.0001 #### [facility] [address], [place], [address] Abdomen/Pelvis without Conto n 08-29-2024 Abdomen/Pelvis without Cont [facility] Imaging Services [address] [place], [place] [address] Abdomen/Pelvis without Cont MR#: [id number] Acct: [id number] Name: ZACHARY SHORT Rep #: [id number] : 1945 M 79 From: Brayden Austin MD PCP: Dr. Ailin Pierson MD Status: PRE ER Study: Abdomen/Pelvis without Cont Date of Exam: 07/24 Exam# [id number] Ordering Dr: Lamont Fajardo DO PROCEDURE: ABDOMEN/PELVIS WITHOUT CONT 08/29/2024 REASON FOR EXAM: LOWER ABDOMINAL PAIN, HISTORY OF KIDNEY STONES TECHNIQUE: CT abdomen and pelvis was performed with out IV contrast. Multiplanar reformats were generated. One or more dose reduction techniques were used (e.g., Automated exposure control, adjustment of the mA and/or kV according to patient size, use of iterative reconstruction technique). PATIENT PREPARATION: Per protocol ORAL CONTRAST TYPE: None. COMPARISON: 06/19/2024 FINDINGS: Exam limited by beam hardening artifact related to the arms which were positioned at the sides rather than above the head. Note also that evaluation of the abdominopelvic viscera, vasculature, and remaining soft tissues is limited in the absence of IV contrast. Lung bases: Multivessel coronary atherosclerosis and/or stents. Aortic annular calcification. Hiatal hernia. Atelectasis/scarring. Similar fissural likely intrapulmonary lymph nodes in the RIGHT lung base. Liver: Unremarkable. Spleen: Unremarkable. Gallbladder: Unremarkable. Pancreas: Unremarkable. Adrenals: Unremarkable. Kidneys: LEFT renal cyst. No hydronephrosis or ureteral calculus identified. Mild nonspecific stranding along the mid to distal course of the RIGHT ureter and RIGHT pelvic sidewall, slightly increased from prior. Bowel: Mild sigmoid diverticulosis.. Normal caliber appendix. Lymph nodes: Unremarkable. Vasculature: Atherosclerosis. Tortuous aortoiliac vessels. Mild infrarenal abdominal aortic ectasia to 2.6 x 2.4 cm. Peritoneum: Unremarkable. Bladder: Decompressed by Mahoney catheter and suboptimally evaluated. Marked bladder wall thickening disproportionate to the degree of underdistention. Perivesicular stranding. Reproductive Organs: Prostatomegaly. Body Wall: Tiny fat containing umbilical hernia.. Bones: Multilevel spondylosis. Findings suggestive of early diffuse idiopathic skeletal hyperostosis. Multilevel spinal canal stenoses are suboptimally characterized by CT. Trace lumbar dextroscoliosis. Degenerative changes of the hips and SI joints including anterior ankylosis. Subacute appearing LEFT transverse process fractures from L1-L3. Subacute appearing nondisplaced fractures of LEFT posterior ribs 11-12. CT/Abdomen/Pelvis without Cont IMPRESSION: 1. Findings suggestive of cystitis although a component of chronic bladder outlet obstruction may be present given prostatomegaly. Stranding extending along the mid to distal LEFT ureter could be related to ascending urinary tract infection. Correlate with urinalysis. No hydronephrosis or ureteral calculus identified. 2. Subacute appearing fractures of LEFT L1-L3 transverse processes and LEFT posterior ribs 11-12. 3. Abdominal aortic ectasia to 2.6 cm. Recommend follow-up in 5 years per 2013 ACR recommendations. 4. Additional description as above. Reading Location: [id number] CC: Dr. Ailin Pierson MD; Dr. Lamont Fajardo, Slitter Cut Off Operator: Signed Normal [facility] Absolute neutrophil countOrd ered By: ED PROVIDER on 08-29-2024 Neutrophils (Bld) [#/Vol] 6.3 10*3/uL 2.0-7.7 [facility] Anion gap in Serum or Plasma Ordered By: ED PROVIDER on 08-29-2024 Anion gap [Moles/Vol] 12 mmol/L 5-15 [facility] BUN/creatinine ratioOrdered By: ED PROVIDER on 08-29-2024 Urea nitrogen/Creatinine [Mass ratio] 24.2 mg/mg High 10-20 [facility] Basophil percentageOrdered B y: ED PROVIDER on 08-29-2024 Basophils/100 WBC (Bld) 1.1 % High 0-1 [facility] Bilirubin Test strip Ql (U)O rdered By: Lamont Fajardo on 08-29-2024 Bilirubin Ql (U) Negative Negative [facility] Bilirubin, totalOrdered By: ED PROVIDER on 08-29-2024 Bilirubin [Mass/Vol] 0.22 mg/dL 0.00-1.30 [facility] CBC W/Diff, Automatedon 04 PLT EST ADEQUATE Normal ADEQ [facility] Comment on above: Performed By: #### L 400.0001 #### [facility] [address] [place], [address] [facility] ZACHARY SHORT ([id number]) 1945 M Date Time Provider Department 08/29/24 VINCE HUFFMAN During your visit today, we recorded the following information about you: Mali Fernández, RN 08/29/2024 12:12 PM Signed Currently getting radiation for prostate cancer. Pt c/o of increased bladder pain and frequency. Self caths once per day per another MD (not radiation oncologist). Hx of sepsis with untreated UTI. UA ordered 08/28 afternoon for these complaints.Per Dr Huffman: Called pt this am to report his urine was positive for infection. NO culture was ordered yesterday so asked him to do a self cath urine specimen here after he get radiation treatment.When I spoke with pt he said he just does not feel good and running to bathroom every 15 min but does not go much. He reports that he self caths in the evening. When asked if he measures tht he said yes he has a container from hospital he uses and usually fill that up. In checking that container her said it holds 28oz. He also reports that he is chilling and shaking right now. Had him check his temp and it was 97.7F. This reported to Dr Huffman who advises pt to go to ER right now. Pt not happy about that but understands and states he will go. Told ok to miss radiation today and we will check on him in the morning. Poonam Rice RN 08/30/2024 10:33 AM Signed Pt was seen at [facility]. Records printed and given to Dr Huffman. Pt denies fever or chills today. He has started the antibiotic that was prescribed yesterday. Pt has mahoney catheter and advised per Dr Huffman's instructions to clamp his catheter 3 hours prior to treatment. Pt verbalized understanding. Allergies As of Date: 08/29/2024 (No Known Allergies) Date Reviewed: 08/28/2024 Reviewed by: Mali Fernández, RN - Fully Assessed Reason for Visit: Results [95] UTI [116] Prescriptions as of 08/30/2024 - citalopram hydrobromide (CELEXA) 10 mg tablet Take 1 tablet by mouth once daily. Start with half a pill a week and then go to a full pill - oxyCODONE-acetaminophen 5-325 mg (PERCOCET) Take 1-2 tablets by mouth every 4 hours as needed (for pain). - ramelteon (ROZEREM) 8 mg tablet Take 1 tablet by mouth daily at bedtime. - azelastine 0.1% nasal spray Use 1 [place] in each nostril two times a day. - lisinopril-hydroCHLOROthia zide (ZESTORETIC) 10-12.5 mg per tablet Take 1 tablet by mouth once daily. - tamsulosin (FLOMAX) 0.4 mg Take 1 capsule by mouth daily at bedtime. - ergocalciferol 50,000 unit capsule (VITAMIN D2, DRISDOL) Take 1 capsule by mouth two times a week. TO BE TAKEN ORALLY DIRECTED. Take 1 tablet by mouth twice weekly [id number], then decrease to 1 tablet weekly. - naproxen (NAPROSYN) 500 mg tablet Take 1 tablet by mouth two times a day as needed (for pain/inflammation). Take with food. - polyethylene glycol 3350 (MIRALAX) 17 gram/dose powder Take 17 g by mouth once daily. Dissolve dose in 4 - 8 ounces of liquid and take as directed. - aspirin, enteric coated (ASPIRIN, ENTERIC COATED) 81 mg EC tablet Take 1 tablet by mouth once daily. Problem List As Of Date 08/29/2024 Noted Resolved Mixed hyperlipidemia [E78.2] 11/09/2005 Unspecified Asthma [J45.909] 11/09/2005 Personal history of other malignant neoplasm of*03/31/2006 Cervical Spondylosis without Myelopathy [M47.81* Family History of Malignant Neoplasm of Gastroi*05/16/2008 Primary Localized Osteoarthrosis, Shoulder Quin*05/16/2008 ACTINIC KERATOSIS (Premalignant AK) [L57.0] 05/17/2008 Other Seborrheic Keratosis [L82.1] 05/17/2008 09/15/2009 ACTINIC DAMAGE///CHR SOLAR SKIN DAMAGE NOS [L57*05/17/2008 09/15/2009 Rosacea [L71.9] 05/17/2008 Primary hypertension [I10] 09/15/2009 Obesity [E66.9] 09/15/2009 Irritated//Inflamed Seborrheic Keratosis [L82.0]09/23/2009 Solar lentigo [L81.4] 09/23/2009 Bladder Neck Obstruction [N32.0] 10/30/2009 Hypertrophy of prostate with urinary obstructio*05/28/2010 Arthritis of shoulder region, left, degenerativ*08/03/2011 Benign neoplasm of rectum and anal canal [D12.8*08/23/2011 Pain in joint, shoulder region [M25.519] 10/21/2011 Chronic knee pain [M25.569, G89.29] 02/28/2017 Preop examination [Z01.818] 11/21/2023 Elevated prostate specific antigen (PSA) [R97.2*11/21/2023 11/29/2023 Obesity, Class I, BMI 30-34.9 [E66.811] 11/21/2023 Prostate cancer (HCC) [C61] 11/29/2023 Encounter Status:Closed by MALI FERNÁNDEZ on 08/29/24 Normal [facility] Carbon dioxide, total [Moles /volume] in Central venous bloodOrdered By: ED PROVIDER on 08-29-2024 CO2 [Moles/Vol] 22.8 mmol/L 21.0-32.0 [facility] Chloride assayOrdered By: ED PROVIDER on 08-29-2024 Chloride [Moles/Vol] 101 mmol/L 98-108 [facility] Comprehensive Metabolic Prof ilon 08-29-2024 Albumin [Mass/Vol] 4.0 g/dL Normal 3.4-4.8 [facility] Comment on above: Performed By: #### L 400.0001 #### [facility] [address] [place], [place], [id number] Albumin/Globulin [Mass ratio] 0.9 {ratio} Normal 0.9-2.4 [facility] Comment on above: Performed By: #### L 400.0001 #### [facility] [address] [place], [address] ALK PHOS 82 U/L Normal 40-129 [facility] Comment on above: Performed By: #### L 400.0001 #### [facility] [address] [place], [address] ALT [Catalytic activity/Vol] 22 U/L Normal <=46 [facility] Comment on above: Performed By: #### L 400.0001 #### [facility] [address] [place], [address] AST [Catalytic activity/Vol] 26 U/L Normal <=37 [facility] Comment on above: Performed By: #### L 400.0001 #### [facility] [address] [place], [address] Bilirubin [Mass/Vol] 0.22 mg/dL Normal 0.00-1.30 [facility] Comment on above: Performed By: #### L 400.0001 #### [facility] [address] [place], [address] BUN/CRE 24.2 RATIO High 10-20 [facility] Comment on above: Performed By: #### L 400.0001 #### [facility] [address] [place], [address] Calcium [Mass/Vol] 9.6 mg/dL Normal 7.6-11.0 [facility] Comment on above: Performed By: #### L 400.0001 #### [facility] [address] [place], [address] Chloride [Moles/Vol] 101 mmol/L Normal 98-108 [facility] Comment on above: Performed By: #### L 400.0001 #### [facility] [address] [place], [address] CO2 [Moles/Vol] 22.8 mmol/L Normal 21.0-32.0 [facility] Comment on above: Performed By: #### L 400.0001 #### [facility] [address] [place], [address] Creatinine [Mass/Vol] 1.21 mg/dL High 0.70-1.20 [facility] Comment on above: Performed By: #### L 400.0001 #### [facility] [address] [place], [address] ECRCL 60.16 ml/min Normal 50-250 [facility] Comment on above: Performed By: #### L 400.0001 #### [facility] [address] [place], [address] GAP 12 Normal 5-15 [facility] Comment on above: Performed By: #### L 400.0001 #### [facility] [address] [place], [address] GFR/1.73 sq M.predicted among non-blacks MDRD (S/P/Bld) [Vol rate/Area] 60 mL/min/{1.73_m2} Normal >60 [facility] Comment on above: Result Comment: mL/m in/1.73m2 CKD-EPI Creatinine Equation (2020) Performed By: #### L 400.0001 #### [facility] [address] [place], [address] Globulin (S) [Mass/Vol] 4.3 g/dL High 2.2-4.2 [facility] Comment on above: Performed By: #### L 400.0001 #### [facility] [address] [place], [address] Glucose [Mass/Vol] 98 mg/dL Normal 70-99 [facility] Comment on above: Performed By: #### L 400.0001 #### [facility] [address] [place], [address] Potassium [Moles/Vol] 4.0 mmol/L Normal 3.3-5.1 [facility] Comment on above: Performed By: #### L 400.0001 #### [facility] [address] [place], [address] Sodium [Moles/Vol] 136 mmol/L Normal 133-145 [facility] Comment on above: Performed By: #### L 400.0001 #### [facility] [address] [place], [place], [address] T PROT 8.2 g/dL Normal 5.9-8.4 [facility] Comment on above: Performed By: #### L 400.0001 #### [facility] [address] [place], [address] Urea nitrogen [Mass/Vol] 29 mg/dL High 4-19 [facility] Comment on above: Performed By: #### L 400.0001 #### [facility] [address] [place], [place], [id number] Emergency Department Summary on 08-29-2024 Emergency Department Summary [facility] Medical Records Department [address] [place] [address] Emergency Department Summary 08/29/24 MR#: [id number] Acct: [id number] Name: ZACHARY SHORT Rep #: [id number] : 1945 79 From: Lamont Fajardo DO PCP: Dr. Ailin Pierson MD Status:DEP ER Location: ED HPI History of Present Illness Chief Complaint: Complaint Detail of Chief Complaint: Possible UTI/dysuria Informant: patient Narrative Narrative: Patient presents to the emergency department with complaint urinary symptoms. Patient states that currently being treated for prostate cancer with metastasis to the bone and receiving radiation therapy. Yesterday he mention to the radiation oncologist that he was having pain with urination. Urine culture apparently was sent and today was called was told that there may be an infection there. Patient complains of chills but no fever. He said no nausea or vomiting. Patient states that he self caths once a day. He has had history of retention. He sees a [facility] urologist and also sees Dr. Soto. [facility] Medical History Acute on chronic urinary retention Leukocytosis Closed fracture of right elbow Weakness Acute UTI Fever Rhabdomyolysis Fall Right elbow pain Kidney stones Non-smoker Asthma Hypertension Home Medications ???Medication ???Instructions ???Recorded ???Last Taken ???Type azelastine 137 mcg (0.1 %) nasal 1 spray intranasal DAILY nasal 06/19/24 History spray ergocalciferol (vitamin D2) 1,250 1,250 mcg PO .weekly bones 06/16/24 History mcg (50,000 unit) capsule lisinopril 10 1 tab PO DAILY bp 05/22/24 5 History mg-hydrochlorothiazide 12.5 mg tablet polyethylene glycol 3350 17 17 g PO DAILY PRN bowels 05/22/24 05/15/24 History gram/dose oral powder tamsulosin 0.4 mg capsule 0.8 mg (2 x 0.4 mg) PO QHS #60 cap s 05/24/24 06/19/24 Rx lidocaine 5 % topical patch 1 patch topical DAILY #30 ea 06/21 Unknown Rx oxycodone 5 mg tablet 5 mg PO Q4H PRN PRN Pain Score Unknown Rx 4-10 5 days #30 tabs cephalexin 500 mg capsule 500 mg PO Q6 #28 CAPSULES 08/29/24 Unknown Rx phenazopyridine 200 mg tablet 200 mg PO TID 6 doses #6 tabs 04/07/24 Unknown Rx (Pyridium) Allergy/AdvReac Type Severity Reaction Status Date / Time ramelteon Allergy hallucinati Verified 08/29/24 12:45 ons Family History no significant family his Surgical History Knee joint replacement status H/O shoulder replacement Shoulder joint replacement by other means Social History housing: house Smoking Status: Never smoker ROS ROS ED Review of Systems ROS Unobtainable: other Constitutional Constitutional ED: Reports lethargy; Denies chills, fever(s), sweats or weight loss Eyes Eyes: Denies blurry vision, change in vision or diplopia ENT ENT ED: Denies rhinorrhea or sore throat Cardiovascular Cardiovascular: Denies chest pain, orthopnea or racing heartbeat Respiratory/Chest Respiratory/Chest: Denies cough, dyspnea, dyspnea on exertion, orthopnea or sputum Gastrointestinal Gastrointestinal: Reports abdominal pain; Denies diarrhea, nausea or vomiting Genitourinary Genitourinary ED: Reports dysuria and other Details: Urinary retention ; Denies hematuria or urinary frequency Musculoskeletal Musculoskeletal: Denies arthralgias, back pain, myalgias or neck pain Integumentary Denies abscess, Abrasions or rash Neurologic Neurologic: Denies headache(s) or weakness Psychiatric Psychiatric: Denies anxiety, depression or suicidal thoughts Endocrine Endocrinology: Denies polydipsia, polyphagia or polyuria Hematologic/Lymphatic Hematologic/Lymphatic: Denies easy bleeding, easy bruising or lymphadenopathy Allergic/Immunologic Allergic/Immunologic ED: Denies mouth swelling, tongue swelling or urticaria EXAM Physical Exam Const Vital Signs: 08/29/24 12:39 08/29/24 14:32 08/29/24 14:37 Temperature 97.5 F L 98.2 F Temperature Source Oral Oral Pulse Rate 92 73 73 Respiratory Rate 18 18 18 Blood Pressure 96/73 144/85 H 144/85 H Blood Pressure Mean 80 104 104 Pulse Ox 99 98 99 Oxygen Delivery Method Room Air Room Air Room Air 08/29/24 15:00 Temperature 98.2 F Temperature Source Oral Pulse Rate 67 Respiratory Rate 18 Blood Pressure 144/85 H Blood Pressure Mean 104 Pulse Ox 100 Oxygen Delivery Method Room Air Positive well nourished and well developed General Appearance ED: well developed and NAD HEENT Reports TM's clear and moist mucous membranes normocephalic and atraumatic; Negative for trauma or tender (more content not included)... Normal [facility] Eosinophil percentageOrdered By: ED PROVIDER on 08-29-2024 Eosinophils/100 WBC (Bld) 8.4 % High 0-5 [facility] Epithelial cells.squamous LM Ql (Urine sed)Ordered By: Lamont Fajardo on 08-29-2024 Epithelial cells.squamous LM.HPF (Urine sed) [#/Area] 0 /[HPF] 0-5 [facility] Erythrocyte distribution wid th (RBC) [Ratio]Ordered By: ED PROVIDER on 08-29-2024 Erythrocyte distribution width (RBC) [Entitic vol] 51.2 fL High 35.1-43.9 [facility] Erythrocyte distribution wid th ratioOrdered By: ED PROVIDER on 08-29-2024 Erythrocyte distribution width (RBC) [Ratio] 14.1 % 11.6-14.6 [facility] Estimation of creatinine lopez aranceOrdered By: ED PROVIDER on 08-29-2024 Estimated Creatinine Clearance Calc 60.16 ml/min 50-250 [facility] GFR/1.73 sq M.predicted jimenez g non-blacks MDRD (S/P/Bld) [Vol rate/Area]Ordered By: ED PROVIDER on 08-29-2024 Estimated GFR (MDRD) Non-Af Amer 60 >60 [facility] Comment on above: mL/min/1.73m2 CKD-EP I Creatinine Equation (2020) Glucose Ql (U)Ordered By: Leatha Fajardo on 08-29-2024 Urine Glucose (UA) Normal mg/dl Normal [facility] Hematocrit Auto (Bld) [Volum e fraction]Ordered By: ED PROVIDER on 08-29-2024 Hematocrit (Bld) [Volume fraction] 33.8 % Low 40-54 [facility] Hemoglobin measurementOrdere d By: ED PROVIDER on 08-29-2024 Hemoglobin (Bld) [Mass/Vol] 11.6 g/dL Low 13.0-16.5 [facility] Immature granulocytes/100 WB C Auto (Bld)Ordered By: ED PROVIDER on 08-29-2024 Immature granulocytes/100 WBC (Bld) 0.800 % 0.0-0.9 [facility] Comment on above: IG% - Immature Granu locytes (promyelocytes, myelocytes and metamyelocytes) > 1% indicates that a LEFT SHIFT is Present. Ketones Test strip Ql (U)Ord ered By: Lamont Fajardo on 08-29-2024 Ketones Ql (U) Negative Negative [facility] - Chemistry and C hemistry - challengeOrdered By: ED PROVIDER on 08-29-2024 AST [Catalytic activity/Vol] 26 U/L <38 [facility] Lactic Acidon 08-29-2024 Lactate [Moles/Vol] 1.3 mmol/L Normal 0.0-2.[address] [facility] Comment on above: Order Comment: Y Performed By: #### L 503.6006 ####[facility] [address] [place], [place], [address] Lactic acid measurementOrder ed By: Lamont Fajardo on 08-29-2024 Lactate [Moles/Vol] 1.3 mmol/L 0.0-2.[address] [facility] Lipaseon 08-29-2024 Lipase [Catalytic activity/Vol] 47 U/L Normal 13-75 [facility] Comment on above: Result Comment: Linda armando note: LIPASE revised reference range effective 22. New Lipase methodology. Expected to produce lower values than the previous assay method. NEW Reference Range: 13 - 75 U/L Performed By: #### L 100.0100, L500.4050, L501.2450, L503.6005 #### [facility] [address] [place], [address] Lipase measurementOrdered By : ED PROVIDER on 08-29-2024 Lipase [Catalytic activity/Vol] 47 U/L 13-75 [facility] Comment on above: Please note:LIPASE r evised reference range effective 22. New Lipase methodology. Expected to produce lower values than the previous assay method. NEW Reference Range: 13 - 75 U/L Lymphocytes Auto (Unsp spec) [#/Vol]Ordered By: ED PROVIDER on 08-29-2024 Lymphocytes (Bld) [#/Vol] 0.73 10*3/uL Low 0.83-4.51 [facility] Lymphocytes/100 WBC Auto (Un sp spec)Ordered By: ED PROVIDER on 08-29-2024 Lymphocytes/100 WBC (Bld) 8.3 % Low 19-41 [facility] MCV (mean corpuscular volume ) determinationOrdered By: ED PROVIDER on 08-29-2024 MCV (RBC) [Entitic vol] 100.3 fL High 80-94 [facility] Mean corpuscular hemoglobin (MCH) determinationOrdered By: ED PROVIDER on 08-29-2024 MCH (RBC) [Entitic mass] 34.4 pg High 27.0-32.0 [facility] Mean corpuscular hemoglobin concentration (MCHC) determinationOrdered By: ED PROVIDER on 08-29-2024 MCHC (RBC) [Mass/Vol] 34.3 g/dL 32-36 [facility] Mean platelet volume determi nationOrdered By: ED PROVIDER on 08-29-2024 Platelet mean volume (Bld) [Entitic vol] 10.0 fL 6.2-12.0 [facility] Microscopic analysis of urin e for red blood cells (RBC)Ordered By: Lamont Fajardo on 08-29-2024 Urine RBC 0 SEEN /hpf 0-5 [facility] Monocyte percentageOrdered B y: ED PROVIDER on 08-29-2024 Monocytes/100 WBC (Bld) 9.9 % 0-10 [facility] Mucus LM Ql (Urine sed)Order ed By: Lamont Fajardo on 08-29-2024 Mucus Ql (Urine sed) 0 SEEN /hpf [facility] Neutrophil percentageOrdered By: ED PROVIDER on 08-29-2024 Neutrophils/100 WBC (Bld) 71.5 % High 47-70 [facility] Nitrite Test strip Ql (U)Ord ered By: Lamont Fajardo on 08-29-2024 Nitrite Ql (U) Positive High Negative [facility] Nucleated red blood cell per centageOrdered By: ED PROVIDER on 08-29-2024 Nucleated RBC/100 WBC (Bld) [Ratio] 0 % 0-5 [facility] Platelet countOrdered By: ED PROVIDER on 08-29-2024 Platelets (Bld) [#/Vol] 219 10*3/uL 150-450 [facility] Platelets LM Ql (Bld)Ordered By: Lamont Fajardo on 08-29-2024 Platelet Estimate ADEQUATE ADEQ [facility] Potassium (Unsp spec) [Mass/ Vol]Ordered By: ED PROVIDER on 08-29-2024 Potassium [Moles/Vol] 4.0 mmol/L 3.3-5.1 [facility] [facility] Protein Test strip Ql (U)Ord ered By: Lamont Fajardo on 08-29-2024 Protein Ql (U) 100 mg/dl High Negative [facility] RBC Auto (Bld) [#/Vol]Ordere d By: ED PROVIDER on 08-29-2024 RBC (Bld) [#/Vol] 3.37 10*6/uL Low 4.6-6.[address] [facility] Serum creatinine measurement (mass/volume)Ordered By: ED PROVIDER on 08-29-2024 Creatinine [Mass/Vol] 1.21 mg/dL High 0.70-1.20 [facility] Serum globulin measurementOr dered By: ED PROVIDER on 08-29-2024 Globulin (S) [Mass/Vol] 4.3 g/dL High 2.2-4.2 [facility] Serum glucose measurement (m ass/volume)Ordered By: ED PROVIDER on 08-29-2024 Glucose [Mass/Vol] 98 mg/dL 70-99 [facility] Serum or plasma alanine anderson otransferase (ALT) measurementOrdered By: ED PROVIDER on 08-29-2024 ALT [Catalytic activity/Vol] 22 U/L <47 [facility] Serum or plasma albumin valentin urement (mass/volume)Ordered By: ED PROVIDER on 08-29-2024 Albumin [Mass/Vol] 4.0 g/dL 3.4-4.8 [facility] Serum or plasma albumin/glob ulin mass ratioOrdered By: ED PROVIDER on 08-29-2024 Albumin/Globulin [Mass ratio] 0.9 {ratio} 0.9-2.4 [facility] Serum or plasma alkaline herb sphatase measurementOrdered By: ED PROVIDER on 08-29-2024 ALP [Catalytic activity/Vol] 82 U/L 40-129 [facility] Serum or plasma calcium valentin urement (mass/volume)Ordered By: ED PROVIDER on 08-29-2024 Calcium [Mass/Vol] 9.6 mg/dL 7.6-11.0 [facility] Serum or plasma urea nitroge n measurement (mass/volume)Ordered By: ED PROVIDER on 08-29-2024 Urea nitrogen [Mass/Vol] 29 mg/dL High 4-19 [facility] Sodium levelOrdered By: ED Keely MENON on 08-29-2024 Sodium [Moles/Vol] 136 mmol/L 133-145 [facility] Total proteinOrdered By: ED PROVIDER on 08-29-2024 Protein [Mass/Vol] 8.2 g/dL 5.9-8.4 [facility] Urinalysis, Completeon 08-29 BACTERIA 1+ /hpf Normal None Seen [facility] Comment on above: Order Comment: CLEAN CATCH Performed By: #### L 100.0100, L500.4050, L501.2450, L503.6005 #### [facility] [address] [place], [address] WBC 50-100 SEEN Normal 0-5 [facility] Comment on above: Order Comment: CLEAN CATCH Performed By: #### L 100.0100, L500.4050, L501.2450, L503.6005 #### [facility] [address] [place], [address] EPI,SQUAMOUS 0 SEEN Normal 0-5 [facility] Comment on above: Order Comment: CLEAN CATCH Performed By: #### L 100.0100, L500.4050, L501.2450, L503.6005 #### [facility] [address] [place], [address] Mucus Ql (Urine sed) 0 SEEN Normal [facility] Comment on above: Order Comment: CLEAN CATCH Performed By: #### L 100.0100, L500.4050, L501.2450, L503.6005 #### [facility] [address] [place], [address] RBC 0 SEEN Normal [address] [place] [address] Comment on above: Order Comment: CLEAN CATCH Performed By: #### L 100.0100, L500.4050, L501.2450, L503.6005 #### [facility] [address] [place], [address] Urine blood detectionOrdered By: Lamont Fajardo on 08-29-2024 Urine Occult Blood 50 /ul High Negative [facility] Urine clarityOrdered By: Ava Fajardo on 08-29-2024 Clarity (U) Cloudy Clear [facility] Urine color determinationOrd ered By: Lamont Fajardo on 08-29-2024 Color (U) Yellow Yellow [facility] Urine leukocyte esterase det ection by dipstickOrdered By: Lamont Fajardo on 08-29-2024 Leukocyte esterase Test strip Ql (U) 500 /ul High Negative [facility] Urine pHOrdered By: Remus Un gur on 08-29-2024 pH (U) 6.0 [pH] 5.0 - 8.0 [facility] Urine sediment bacteria coun t by microscopy (number/high power field)Ordered By: Remus Ungsandra on 08-29-2024 Bacteria LM.HPF (Urine sed) [#/Area] 1 /[HPF] None Seen [facility] Urine specific gravity measu rementOrdered By: Remus Ungsandra on 08-29-2024 Specific gravity (U) [Rel density] 1.015 1.002-1.030 [facility] Urobilinogen Ql (U)Ordered B y: Remus Ungsandra on 08-29-2024 Urine Urobilinogen Normal mg/dl Normal [facility] White blood cell (WBC) count Ordered By: ED PROVIDER on 08-29-2024 WBC (Bld) [#/Vol] 8.8 10*3/uL 4.4-11.0 [facility] White blood cell countOrdere d By: Remus Ungsandra on 08-29-2024 Urine WBC 50-100 SEEN /hpf 0-5 [facility] CNOVon 08-28-2024 CNOV Office Visit (RADTWS ) -- HANZACHARY Bates ([id number]) 1945 M Date Time Provider Department 08/28/24 2:00 PM SOLO BAKER During your visit today, we recorded the following information about you: Temperature Pulse Blood pressure 97.5 degrees 81/minute 116/63 Solo Baker MD 09/05/2024 12:31 PM Addendum Radiation Therapy - Nursing Note (OTV) PATIENT NAME: Zachary Short PATIENT August 28, 2024 [facility] FACILITY/LOCATION: [facility] NURSING NOTE TYPE: PROSTATE - MALE PELVIS Subjective Data c/o pain in bladder area, pt history of self cath, but only does this first thing in am, thinks maybe should do more often Also reports his son saw someone for medical swetha who gave son a mixture that he has tried once, this is in a vape form and does not think it is marijuana Additional Data Do you want to see a Physical Science Technician? No Status: Patient is male Stress Scale: On a scale of 0 to 10, what number best describes how much distress you have experienced in the past week?(0 being no distress and 10 being extreme distress) 6 Social work notified: Pt denied need to see addiction social worker at this time. Nursing Assessment Fatigue: none Appetite: good Nutritional Intake: Regular oral intake. Weight Gain/Loss: Not applicable Ambulatory weight history: Last 6 Encounter Wt Readings: Date: Wt: 08/28/2024 107 kg (236 lb) 06/29/2024 110.2 kg (243 lb) 06/26/2024 110.7 kg (244 lb) 05/16/2024 109.3 kg (241 lb) 04/23/2024 111 kg (244 lb 11.4 oz) 01/05/2024 113.4 kg (250 lb) Nausea:None Vomiting: None Bowel Function: loose stools, Erythema/Hyperpigmentation :none Desquamation:none Rash:none Skin Care: Aquaphor Skin Sensation: Within Normal Limits Focused Assessment PROSTATE - MALE PELVIS: Rectal bleeding: No. Rectal pain: No. Bladder function: no problems, painful urination, blood in urine. Urinary frequency (D/N): urinates multiple times a day/every hour or so., SIGNED by: Mali Fernández RN [facility] STAFF PHYSICAN NOTE OF PERSONAL INVOLVEMENT IN CARE I have personally participated in the [place] components of the case including a review and verification of the treatment chart, treatment site, and pertinent set-up including imaging and agree with the above findings Complex scenario. Patient complains of significant pain with urination. Complicated by self-cath/recent history of UTI, prostate radiation. He is seeing his urologist next week to discuss. UA today to rule out UTI. If negative, consider azo. no other radiation toxicity. continue XRT as planned. Solo Baker MD Allergies As of Date: 08/28/2024 (No Known Allergies) Date Reviewed: 08/28/2024 Reviewed by: Mali Fernández RN - Fully Assessed Reason for Visit: Radiotherapy On-treatment Visit [1722] Primary Visit Diagnosis:Prostate cancer (HCC) [C61] Order(s):URINALYSIS, DIPSTICK ONLY [SQUA] Order #: [id number] FUTURE Prescriptions as of 09/05/2024 - citalopram hydrobromide (CELEXA) 10 mg tablet Take 1 tablet by mouth once daily. Start with half a pill a week and then go to a full pill - oxyCODONE-acetaminophen 5-325 mg (PERCOCET) Take 1-2 tablets by mouth every 4 hours as needed (for pain). - ramelteon (ROZEREM) 8 mg tablet Take 1 tablet by mouth daily at bedtime. - azelastine 0.1% nasal spray Use 1 [place] in each nostril two times a day. - lisinopril-hydroCHLOROthia zide (ZESTORETIC) 10-12.5 mg per tablet Take 1 tablet by mouth once daily. - tamsulosin (FLOMAX) 0.4 mg Take 1 capsule by mouth daily at bedtime. - ergocalciferol 50,000 unit capsule (VITAMIN D2, DRISDOL) Take 1 capsule by mouth two times a week. TO BE TAKEN ORALLY DIRECTED. Take 1 tablet by mouth twice weekly [id number], then decrease to 1 tablet weekly. - naproxen (NAPROSYN) 500 mg tablet Take 1 tablet by mouth two times a day as needed (for pain/inflammation). Take with food. - polyethylene glycol 3350 (MIRALAX) 17 gram/dose powder Take 17 g by mouth once daily. Dissolve dose in 4 - 8 ounces of liquid and take as directed. - aspirin, enteric coated (ASPIRIN, ENTERIC COATED) 81 mg EC tablet Take 1 tablet by mouth once daily. Problem List As Of Date 08/28/2024 Noted Resolved Mixed hyperlipidemia [E78.2] 11/09/2005 Unspecified Asthma [J45.909] 11/09/2005 Personal history of other malignant neoplasm of*03/31/2006 Cervical Spondylosis without Myelopathy [M47.81* Family History of Malignant Neoplasm of Gastroi*05/16/2008 Primary Localized Osteoarthrosis, Shoulder Quin*05/16/2008 ACTINIC KERATOSIS (Premalignant AK) [L57.0] 05/17/2008 Other Seborrheic Keratosis [L82.1] 05/17/2008 09/15/2009 ACTINIC DAMAGE///CHR SOLAR SKIN DAMAGE NOS [L57*05/17/2008 09/15/2009 Rosacea [L71.9] 05/17/2008 Primary hypertension [I10] 09/15/2009 Obesity [E66.9] 09/15/2009 Irritated//Inflamed Seborrheic Keratosis [L82.0]09/23/2009 Solar l (more content not included)... Normal [facility] Office Visit (INTMWS ) -- ZACHARY SHORT ([id number]) 1945 M Date Time Provider Department 08/28/24 9:20 AM AILIN PIERSON INTMWS During your visit today, we recorded the following information about you: Pulse Blood pressure Weight Height 74/minute 110/62 107 kg 1.829 m Ailin Pierson MD 08/28/2024 6:01 PM Signed Reason for Visit Follow up prostate cancer treatment HPI Zachary is a 79-year-old male with a history of stage 2a prostate adenocarcinoma, presenting with severe urinary retention and associated pain. Zachary reports severe urinary retention and associated pain, requiring self-catheterization once daily. He experiences a constant urge to urinate every 30-60 minutes, with minimal urine output each time, leading to significant pain rated as 10/10. This issue persists throughout the night, disrupting his sleep. He notes temporary pain relief after urination, but the pain quickly returns. He has been taking two aspirin at night for the past 2-3 days, which has slightly reduced the pain and increased the interval between urinations to 75 minutes. He has also taken Percocet and oxycodone for pain relief, but was advised by his urologist, Dr. Fallon, to discontinue these medications. He is uncertain about the reason for this advice and is concerned about potential interactions with his current treatments. Zachary is currently undergoing radiation therapy and has received a Lupron injection as part of his treatment for prostate cancer. He reports experiencing side effects from the Lupron injection, including hot flashes, chills, and weight loss. He also notes a significant decrease in energy levels, numbness and tingling in his legs, and a feeling of unsteadiness on his feet. He describes a sensation of walking around in a fog, which he attributes to both the radiation therapy and lack of sleep. Zachary has a history of back pain, which he attributes to a previous injury. He underwent a bone scan, which showed no evidence of cancer in the back. However, he reports a recent fall around [place] [facility], resulting in a contusion that took three months to heal. He has not had any falls in the past three months, but reports feeling unsteady, particularly when getting out of bed or using the bathroom. His children have made modifications to his home to reduce the risk of falls, including installing handrails and a shower seat. Zachary has a complex medical history, including a recent hospitalization for severe pain and urinary retention. During this hospitalization, he was diagnosed with a bladder infection and was treated with antibiotics and a catheter. He has been self-catheterizing once daily since March. He reports that his current urologist, Dr. Fallon, has been responsive to his needs, providing him with a sufficient supply of catheters. Zachary expresses frustration with his current situation, particularly the severe pain associated with urinary retention. He is willing to increase the frequency of self-catheterization if it would provide relief. He also expresses concern about the cost of catheters and the potential for Medicare coverage. He reports a recent appointment with his radiation oncologist, Dr. Huffman, during which he discussed his symptoms and potential treatment options. He has a follow-up appointment with his previous urologist, Dr. Blanton, but is unsure of the reason for this appointment. Social History Tobacco Use Smoking status: Never Passive exposure: Never Smokeless tobacco: Never Vaping Use Vaping status: Never Used Substance Use Topics Alcohol use: Yes Comment: socially, 3-4 beers/year Drug use: No Past medical history, appointments, medications, allergies reviewed. Pertinent Lab/Diagnostic Studies are reviewed and discussed today Current Outpatient Medications: oxyCODONE-acetaminophen 5-325 mg (PERCOCET) ramelteon (ROZEREM) 8 mg tablet azelastine 0.1% nasal spray lisinopril-hydroCHLOROthia zide (ZESTORETIC) 10-12.5 mg per tablet tamsulosin (FLOMAX) 0.4 mg ergocalciferol 50,000 unit capsule (VITAMIN D2, DRISDOL) polyethylene glycol 3350 (MIRALAX) 17 gram/dose powder naproxen (NAPROSYN) 500 mg tablet aspirin, enteric coated (ASPIRIN, ENTERIC COATED) 81 mg EC tablet Health Maintenance Depression Screening Anxiety Screening DTaP,Tdap,Td Vaccine(1 - Tdap) Shingrix Vaccine(1 of 2) RSV Vaccine(1 - 1-dose 75+ series) Advance Directive Discussion@ Review Of Systems Constitutional: (+) chills, (+) hot flashes, (+) sleep disturbance, (+) weight loss Genitourinary: (+) urinary frequency, (+) dysuria, (+) nocturia, (+) incomplete emptying, (+) dribbling Musculoskeletal: (+) back pain Neurological: (+) unsteady gait, (+) paresthesias, (+) near falls Physical Exam BP 110/62 Pulse 74 Ht 182.9 cm (6') Wt 107 kg (236 lb) SpO2 96% BMI 32.01 kg/m? GENERAL (more content not included)... Normal [facility] URINALYSIS, DIPSTICK ONLYon 08-28-2024 Bilirubin Ql (U) Negative Negative [facility] Clarity (Unsp spec) Turbid Abnormal Clear [facility] Color (U) Yellow Yellow [facility] Glucose Test strip (U) [Mass/Vol] Negative Negative [facility] Hemoglobin Ql (U) 1+ Abnormal Negative [facility] Interpretation and review of laboratory results Abnormal [facility] Ketones Ql (U) Negative Negative [facility] Leukocyte esterase Test strip Ql (U) 3+ Abnormal Negative [facility] Nitrite Ql (U) Negative Negative [facility] pH (U) 6 [pH] NINF - 8.5 [facility] Protein (U) [Mass/Vol] 2+ Abnormal Negative [facility] Specific gravity (U) [Rel density] 1.015 1.005 - 1.030 [facility] Urobilinogen Ql (U) 0.2 EU/dL 0.2-1.0 EU/dL [facility] in [facility] Bilirubin Ql (U) Negative Normal Negative [facility] Comment on above: Order Comment: Speci men Type: URINE SPECIMEN Ordering Facility: [facility] Address: [address] [place] [address] Performed By: #### U A #### [facility] CLIA [id number] [address] [place] [address] [place] Clarity (Unsp spec) Turbid Abnormal Clear [facility] Comment on above: Order Comment: Speci men Type: URINE SPECIMEN Ordering Facility: [facility] Address: [address] [place] [address] Performed By: #### U A #### [facility] CLIA [id number] [address] [place] [address] [place] Color (U) Yellow Normal Yellow [facility] Comment on above: Order Comment: Speci men Type: URINE SPECIMEN Ordering Facility: [facility] Address: [address] [place] [address] Performed By: #### U A #### [facility] CLIA [id number] [address] [place] [address] [place] Glucose Test strip (U) [Mass/Vol] Negative Normal Negative [facility] Comment on above: Order Comment: Speci men Type: URINE SPECIMEN Ordering Facility: [facility] Address: [address] [place] [address] Performed By: #### U A #### [facility] CLIA [id number] [address] [place] [address] [place] Hemoglobin Ql (U) 1+ Abnormal Negative [facility] Comment on above: Order Comment: Speci men Type: URINE SPECIMEN Ordering Facility: [facility] Address: [address] [place] [address] Performed By: #### U A #### [facility] CLIA [id number] [address] [place] [address] [place] Ketones Ql (U) Negative Normal Negative [facility] Comment on above: Order Comment: Speci men Type: URINE SPECIMEN Ordering Facility: [facility] Address: [address] [place] [address] Performed By: #### U A #### [facility] CLIA [id number] [address] [place] [address] [place] Leukocyte esterase Test strip Ql (U) 3+ Abnormal Negative [facility] Comment on above: Order Comment: Speci men Type: URINE SPECIMEN Ordering Facility: [facility] Address: [address] [place] [address] Performed By: #### U A #### [facility] CLIA [id number] [address] [place] [address] [place] Nitrite Ql (U) Negative Normal Negative [facility] Comment on above: Order Comment: Speci men Type: URINE SPECIMEN Ordering Facility: [facility] Address: [address] [place] [address] Performed By: #### U A #### [facility] CLIA [id number] [address] [place] [address] [place] pH (U) 6.0 [pH] Normal <8.5 [facility] Comment on above: Order Comment: Speci men Type: URINE SPECIMEN Ordering Facility: [facility] Address: [address] [place] [address] Performed By: #### U A #### [facility] CLIA [id number] [address] [place] [address] [place] Protein (U) [Mass/Vol] 2+ Abnormal Negative [facility] Comment on above: Order Comment: Speci men Type: URINE SPECIMEN Ordering Facility: [facility] Address: [address] [place] [address] Performed By: #### U A #### [facility] IA [id number] [address] [place] [address] [place] Specific gravity (U) [Rel density] 1.015 Normal 1.005-1.030 [facility] Comment on above: Order Comment: Speci men Type: URINE SPECIMEN Ordering Facility: [facility] Address: [address] [place] [address] Performed By: #### U A #### [facility] CLIA [id number] [address] [place] [address] [place] Urobilinogen Ql (U) 0.2 EU/dL Normal 0.2-1.0 EU/dL [facility] Comment on above: Order Comment: Speci men Type: URINE SPECIMEN Ordering Facility: [facility] Address: [address] [place] [address] Performed By: #### U A #### [facility] CLIA [id number] [address] [place] [address] [place] CNPNon 08-22-2024 CNPN Telephone (AKPRAD) -- ZACHARY HSORT ([id number]) 1945 M Date Time Provider Department 08/22/24 JUAN BLANTON JR During your visit today, we recorded the following information about you: Juan Blanton Jr., MD 08/22/2024 8:16 AM Signed Needs appt with Muriel Barnhart 08/22/2024 8:45 AM Signed Called and left vox Patient is scheduled September 12, 2024 at 12:45 pm, [facility] Thank you Muriel Allergies As of Date: 08/22/2024 (No Known Allergies) Date Reviewed: 08/21/2024 Reviewed by: Lavinia Blanca RN - Fully Assessed Reason for Visit: Appointment [186] Prescriptions as of 08/22/2024 - oxyCODONE-acetaminophen 5-325 mg (PERCOCET) Take 1-2 tablets by mouth every 4 hours as needed (for pain). - ramelteon (ROZEREM) 8 mg tablet Take 1 tablet by mouth daily at bedtime. - azelastine 0.1% nasal spray Use 1 [place] in each nostril two times a day. - lisinopril-hydroCHLOROthia zide (ZESTORETIC) 10-12.5 mg per tablet Take 1 tablet by mouth once daily. - tamsulosin (FLOMAX) 0.4 mg Take 1 capsule by mouth daily at bedtime. - ergocalciferol 50,000 unit capsule (VITAMIN D2, DRISDOL) Take 1 capsule by mouth two times a week. TO BE TAKEN ORALLY DIRECTED. Take 1 tablet by mouth twice weekly [id number], then decrease to 1 tablet weekly. - naproxen (NAPROSYN) 500 mg tablet Take 1 tablet by mouth two times a day as needed (for pain/inflammation). Take with food. - polyethylene glycol 3350 (MIRALAX) 17 gram/dose powder Take 17 g by mouth once daily. Dissolve dose in 4 - 8 ounces of liquid and take as directed. - aspirin, enteric coated (ASPIRIN, ENTERIC COATED) 81 mg EC tablet Take 1 tablet by mouth once daily. Problem List As Of Date 08/22/2024 Noted Resolved Mixed hyperlipidemia [E78.2] 11/09/2005 Unspecified Asthma [J45.909] 11/09/2005 Personal history of other malignant neoplasm of*03/31/2006 Cervical Spondylosis without Myelopathy [M47.81* Family History of Malignant Neoplasm of Gastroi*05/16/2008 Primary Localized Osteoarthrosis, Shoulder Quin*05/16/2008 ACTINIC KERATOSIS (Premalignant AK) [L57.0] 05/17/2008 Other Seborrheic Keratosis [L82.1] 05/17/2008 09/15/2009 ACTINIC DAMAGE///CHR SOLAR SKIN DAMAGE NOS [L57*05/17/2008 09/15/2009 Rosacea [L71.9] 05/17/2008 Primary hypertension [I10] 09/15/2009 Obesity [E66.9] 09/15/2009 Irritated//Inflamed Seborrheic Keratosis [L82.0]09/23/2009 Solar lentigo [L81.4] 09/23/2009 Bladder Neck Obstruction [N32.0] 10/30/2009 Hypertrophy of prostate with urinary obstructio*05/28/2010 Arthritis of shoulder region, left, degenerativ*08/03/2011 Benign neoplasm of rectum and anal canal [D12.8*08/23/2011 Pain in joint, shoulder region [M25.519] 10/21/2011 Chronic knee pain [M25.569, G89.29] 02/28/2017 Preop examination [Z01.818] 11/21/2023 Elevated prostate specific antigen (PSA) [R97.2*11/21/2023 11/29/2023 Obesity, Class I, BMI 30-34.9 [E66.811] 11/21/2023 Prostate cancer (HCC) [C61] 11/29/2023 Encounter Status:Closed by JUAN BLANTON on 08/22/24 [facility] CNOVon 08-21-2024 CNOV Office Visit (RADTWS ) -- HANZACHARY ([id number]) 1945 M Date Time Provider Department 08/21/24 2:00 PM SAMEER RENDON RADTWS During your visit today, we recorded the following information about you: Temperature Pulse Respiration Blood pressure 98.1 degrees 80/minute 18/minute 100/67 Sameer Rendon MD 08/21/2024 3:01 PM Signed Radiation Oncology - On Treatment Review (OTR) Note PATIENT NAME: Zachary Short PATIENT DIAGNOSIS: Stage IIA, T1c cN0, prostate adenocarcinoma with Lisbeth score 7 (3+4), grade group 2, and PSA 17.31 ng/mL. He is on hormonal therapy. COURSE: definitive AREA TREATED: Pelvis/prostate/SV CURRENT DOSE: 1000 cGy in 4 fx PLANNED DOSE: 7000 cGy in 28 fx SUBJECTIVE: Tolerating inc in urinary frequency and urgency, in spite of ISc X 1 PM, HS. He indicated he self-cath x 1 in the pm, still gets up hourly through the night to urinate, does not self-cath > 1 / day. Also notes since starting the RT a feeling of obstruction when inserting the catheter and has to force the catheter beyond the obstruction. He has difficulty with stream onset, he said Dr Huffman increased Flomax to two tabs hs and added another medication for this problem, I cannot find another similar medication. He is afraid to self-cath > x1 because that's what they told me to do. BM ranges between obstipation and loose, denies diarrhea. Having hot flashes from ADT. EXAM: KPS: 90 General Appearance: Alert and oriented. No acute distress. IMAGING/LAB RESULTS: None Treatment chart checked: Yes Patient treatment site reviewed and verified:Yes CBCTs reviewed and current:Yes Medications started: None ASSESSMENT/PLAN: Tolerating increase in urinary frequency. Clinically declined due to inc in urinary frequency and difficulties with self-cath, will notify Dr Blanton (Urology). . Tolerating excess toxicity. Continue radiation treatment as planned. Sameer Rendon MD for Vince Huffman MD Radiation Therapy - Nursing Note (OTV) PATIENT NAME: Zachary Short PATIENT August 21, 2024 [facility] FACILITY/LOCATION: [facility] NOTE TYPE: PROSTATE - MALE PELVIS Subjective Data I'm feeling weaker. I'm cathing myself at 6-7 pm to help me emptying my bladder. I'm not getting any sleep d/t being up every hour at night time. Additional Data Do you want to see a Physical Science Technician? No Status: Patient is male Stress Scale: On a scale of 0 to 10, what number best describes how much distress you have experienced in the past week?(0 being no distress and 10 being extreme distress) 0 Social work notified: Pt denied need to see addiction social worker at this time. Nursing Assessment Fatigue: increased fatigue over baseline but not altering normal activities Appetite: good Nutritional Intake: Regular oral intake. Weight Gain/Loss: Not applicable Ambulatory weight history: Last 6 Encounter Wt Readings: Date: Wt: 06/29/2024 110.2 kg (243 lb) 06/26/2024 110.7 kg (244 lb) 05/16/2024 109.3 kg (241 lb) 04/23/2024 111 kg (244 lb 11.4 oz) 01/05/2024 113.4 kg (250 lb) 01/03/2024 111.1 kg (245 lb) Nausea:None Vomiting: None Bowel Function: diarrhea 2 - 3 to 5 soft or liquid bowel movements per day Erythema/Hyperpigmentation :none Desquamation:none Rash:none Skin Care: None Skin Sensation: Within Normal Limits Focused Assessment PROSTATE - MALE PELVIS: Rectal bleeding: No. Rectal pain: bermudez and sometimes mild pain . Bladder function: urgency, frequency, painful urination, incomplete emptying. Urinary frequency (D/N): q hr/q hr. Having leaking at times. SIGNED by: Lavinia Blanca RN Allergies As of Date: 08/21/2024 (No Known Allergies) Date Reviewed: 08/21/2024 Reviewed by: Lavinia Blanca RN - Fully Assessed Reason for Visit: Radiotherapy On-treatment Visit [1722] Fx # 9 [Other] Primary Visit Diagnosis:Prostate cancer (HCC) [C61] Prescriptions as of 08/21/2024 - oxyCODONE-acetaminophen 5-325 mg (PERCOCET) Take 1-2 tablets by mouth every 4 hours as needed (for pain). - ramelteon (ROZEREM) 8 mg tablet Take 1 tablet by mouth daily at bedtime. - azelastine 0.1% nasal spray Use 1 [place] in each nostril two times a day. - lisinopril-hydroCHLOROthia zide (ZESTORETIC) 10-12.5 mg per tablet Take 1 tablet by mouth once daily. - tamsulosin (FLOMAX) 0.4 mg Take 1 capsule by mouth daily at bedtime. - ergocalciferol 50,000 unit capsule (VITAMIN D2, DRISDOL) Take 1 capsule by mouth two times a week. TO BE TAKEN ORALLY DIRECTED. Take 1 tablet by mouth twice weekly [id number], then decrease to 1 tablet weekly. - naproxen (NAPROSYN) 500 mg tablet Take 1 tablet by mouth two times a day as needed (for pain/inflammation). Take with food. - polyethylene glycol 3350 (MIRALAX) 17 gram/dose powder Take 17 g by mouth once daily. Dissolve dose in 4 - 8 ounces of liquid and ta (more content not included)... Normal [facility] CNOVon 08-14-2024 CNOV Office Visit (RADTWS ) -- HANZACHARY PATEL ([id number]) 1945 M Date Time Provider Department 08/14/24 2:00 PM VINCE HUFFMAN RADTWS During your visit today, we recorded the following information about you: Temperature Pulse Blood pressure 97.9 degrees 85/minute 122/72 Mali Fernández, RN 08/14/2024 2:33 PM Signed Radiation Therapy - Nursing Note (OTV) PATIENT NAME: Zachary Short PATIENT August 14, 2024 [facility] FACILITY/LOCATION: [place] NURSING NOTE TYPE: PROSTATE - MALE PELVIS Subjective Data no complaints so far with treatments Additional Data Do you want to see a Physical Science Technician? No Status: Patient is male Stress Scale: On a scale of 0 to 10, what number best describes how much distress you have experienced in the past week?(0 being no distress and 10 being extreme distress) 5 Social work notified: Pt denied need to see addiction social worker at this time. Nursing Assessment Fatigue: none Appetite: good Nutritional Intake: Regular oral intake. Weight Gain/Loss: Not applicable Ambulatory weight history: Last 6 Encounter Wt Readings: Date: Wt: 06/29/2024 110.2 kg (243 lb) 06/26/2024 110.7 kg (244 lb) 05/16/2024 109.3 kg (241 lb) 04/23/2024 111 kg (244 lb 11.4 oz) 01/05/2024 113.4 kg (250 lb) 01/03/2024 111.1 kg (245 lb) Nausea:None Vomiting: None Bowel Function: normal bowel movements Erythema/Hyperpigmentation :none Desquamation:none Rash:none Skin Care: None Skin Sensation: Within Normal Limits Focused Assessment PROSTATE - MALE PELVIS: Rectal bleeding: No. Rectal pain: No. Bladder function: no problems. Urinary frequency (D/N): voids small amounts thru out day but then straights cath every day at 6pm and that keeps him comfortable/n/a. SIGNED by: LAY Sagastume Daesung, MD 08/14/2024 2:33 PM Signed Radiation Oncology - On Treatment Review (OTR) Note PATIENT NAME: Zachary Short PATIENT DIAGNOSIS: Stage IIA, T1c cN0, prostate adenocarcinoma with Lisbeth score 7 (3+4), grade group 2, and PSA 17.31 ng/mL. He is on hormonal therapy. COURSE: definitive AREA TREATED: Pelvis/prostate/SV CURRENT DOSE: 1000 cGy in 4 fx PLANNED DOSE: 7000 cGy in 28 fx SUBJECTIVE: He is doing well without any specific new complaints. He continues to do self-catheterization once a day as before he started radiation treatment. EXAM: KPS: 90 General Appearance: Alert and oriented. No acute distress. IMAGING/LAB RESULTS: None Treatment chart checked: Yes Patient treatment site reviewed and verified:Yes CBCTs reviewed and current:Yes Medications started: None ASSESSMENT/PLAN: Clinically stable. No signs of toxicity. Continue radiation treatment as planned. Vinec Huffman MD Allergies As of Date: 08/14/2024 (No Known Allergies) Date Reviewed: 08/14/2024 Reviewed by: Mali Fernández RN - Fully Assessed Reason for Visit: Radiotherapy On-treatment Visit [1722] Primary Visit Diagnosis:Prostate cancer (HCC) [C61] Prescriptions as of 08/14/2024 - oxyCODONE-acetaminophen 5-325 mg (PERCOCET) Take 1-2 tablets by mouth every 4 hours as needed (for pain). - ramelteon (ROZEREM) 8 mg tablet Take 1 tablet by mouth daily at bedtime. - azelastine 0.1% nasal spray Use 1 [place] in each nostril two times a day. - lisinopril-hydroCHLOROthia zide (ZESTORETIC) 10-12.5 mg per tablet Take 1 tablet by mouth once daily. - tamsulosin (FLOMAX) 0.4 mg Take 1 capsule by mouth daily at bedtime. - ergocalciferol 50,000 unit capsule (VITAMIN D2, DRISDOL) Take 1 capsule by mouth two times a week. TO BE TAKEN ORALLY DIRECTED. Take 1 tablet by mouth twice weekly [id number], then decrease to 1 tablet weekly. - naproxen (NAPROSYN) 500 mg tablet Take 1 tablet by mouth two times a day as needed (for pain/inflammation). Take with food. - polyethylene glycol 3350 (MIRALAX) 17 gram/dose powder Take 17 g by mouth once daily. Dissolve dose in 4 - 8 ounces of liquid and take as directed. - aspirin, enteric coated (ASPIRIN, ENTERIC COATED) 81 mg EC tablet Take 1 tablet by mouth once daily. Problem List As Of Date 08/14/2024 Noted Resolved Mixed hyperlipidemia [E78.2] 11/09/2005 Unspecified Asthma [J45.909] 11/09/2005 Personal history of other malignant neoplasm of*03/31/2006 Cervical Spondylosis without Myelopathy [M47.81* Family History of Malignant Neoplasm of Gastroi*05/16/2008 Primary Localized Osteoarthrosis, Shoulder Quin*05/16/2008 ACTINIC KERATOSIS (Premalignant AK) [L57.0] 05/17/2008 Other Seborrheic Keratosis [L82.1] 05/17/2008 09/15/2009 ACTINIC DAMAGE///CHR SOLAR SKIN DAMAGE NOS [L57*05/17/2008 09/15/2009 Rosacea [L71.9] 05/17/2008 Primary hypertension [I10] 09/15/2009 Obesity [E66.9] 09/15/2009 Irritated//Inflamed Seborrheic Keratosis [L82.0]09/23/2009 Solar lentigo [L81.4] 09/23/2009 Bladder Neck Obstruction [N32.0] 10/30/2009 Hypertro (more content not included)... Normal [facility] CNNURSEon 08-02-2024 CNNURSE Nurse Visit (RADTWS) -- ZACHARY SHORT ([id number]) 1945 M Date Time Provider Department 08/02/24 1:30 PM NURSE RADT [facility] RADTWS During your visit today, we recorded the following information about you: Poonam Rice RN 08/02/2024 1:29 PM Signed Radiation Therapy - Patient Education Note PATIENT NAME: Zachary Short PATIENT August 02, 2024 [facility] FACILITY/LOCATION: [place] READINESS TO LEARN Cognitive Ability: Alert and oriented Motivation to learn: Eager Interested Family Support: Unable to assess - Family not present Instruction provide to: Patient Patient learns best by: Multiple Methods Factors effecting learning: None Physical limitations effecting learning: None LEARNING RESPONSE Diagnosis: Pt simulated today for radiation therapy to prostate. Education Topic/Teaching Points: Radiation therapy, Side effects, and OTV: Method of instruction: Teach Back skin care Individual instruction Written instruction/Handouts Verbal instruction Patient /Family response: Patient verbalized understanding of radiation treatments, side effects, OTV, and transportation. Follow-up plan: Patient instructed to call with any further issues Contact information given. Supplemental material: Informational handouts on Department phone list, bowel handout, Bladder function, Fatigue, and Maia instructions, XRT sheet and Aquaphor handout. Referral (recommendation): None, Pt denied need for social work, van service, and ceramic engineer. Patient has an Onbody or Implanted device: No Signed by: Poonam Rice RN Allergies As of Date: 08/02/2024 (No Known Allergies) Date Reviewed: 06/29/2024 Reviewed by: Poonam Rcie, RN - Fully Assessed Reason for Visit: Patient Education [91] Primary Visit Diagnosis:Prostate cancer (HCC) [C61] Prescriptions as of 08/02/2024 - oxyCODONE-acetaminophen 5-325 mg (PERCOCET) Take 1-2 tablets by mouth every 4 hours as needed (for pain). - ramelteon (ROZEREM) 8 mg tablet Take 1 tablet by mouth daily at bedtime. - azelastine 0.1% nasal spray Use 1 [place] in each nostril two times a day. - lisinopril-hydroCHLOROthia zide (ZESTORETIC) 10-12.5 mg per tablet Take 1 tablet by mouth once daily. - tamsulosin (FLOMAX) 0.4 mg Take 1 capsule by mouth daily at bedtime. - ergocalciferol 50,000 unit capsule (VITAMIN D2, DRISDOL) Take 1 capsule by mouth two times a week. TO BE TAKEN ORALLY DIRECTED. Take 1 tablet by mouth twice weekly [id number], then decrease to 1 tablet weekly. - naproxen (NAPROSYN) 500 mg tablet Take 1 tablet by mouth two times a day as needed (for pain/inflammation). Take with food. - polyethylene glycol 3350 (MIRALAX) 17 gram/dose powder Take 17 g by mouth once daily. Dissolve dose in 4 - 8 ounces of liquid and take as directed. - aspirin, enteric coated (ASPIRIN, ENTERIC COATED) 81 mg EC tablet Take 1 tablet by mouth once daily. Problem List As Of Date 08/02/2024 Noted Resolved Mixed hyperlipidemia [E78.2] 11/09/2005 Unspecified Asthma [J45.909] 11/09/2005 Personal history of other malignant neoplasm of*03/31/2006 Cervical Spondylosis without Myelopathy [M47.81* Family History of Malignant Neoplasm of Gastroi*05/16/2008 Primary Localized Osteoarthrosis, Shoulder Quin*05/16/2008 ACTINIC KERATOSIS (Premalignant AK) [L57.0] 05/17/2008 Other Seborrheic Keratosis [L82.1] 05/17/2008 09/15/2009 ACTINIC DAMAGE///CHR SOLAR SKIN DAMAGE NOS [L57*05/17/2008 09/15/2009 Rosacea [L71.9] 05/17/2008 Primary hypertension [I10] 09/15/2009 Obesity [E66.9] 09/15/2009 Irritated//Inflamed Seborrheic Keratosis [L82.0]09/23/2009 Solar lentigo [L81.4] 09/23/2009 Bladder Neck Obstruction [N32.0] 10/30/2009 Hypertrophy of prostate with urinary obstructio*05/28/2010 Arthritis of shoulder region, left, degenerativ*08/03/2011 Benign neoplasm of rectum and anal canal [D12.8*08/23/2011 Pain in joint, shoulder region [M25.519] 10/21/2011 Chronic knee pain [M25.569, G89.29] 02/28/2017 Preop examination [Z01.818] 11/21/2023 Elevated prostate specific antigen (PSA) [R97.2*11/21/2023 11/29/2023 Obesity, Class I, BMI 30-34.9 [E66.811] 11/21/2023 Prostate cancer (HCC) [C61] 11/29/2023 Encounter Status:Closed by POONAM RICE on 08/02/24 [facility] 08-01-2024 CNPN Telephone (SimplifyTWS) -- ZACHARY SHORT ([id number]) 1945 M Date Time Provider Department 08/01/24 VINCE HUFFMAN RADLORI During your visit today, we recorded the following information about you: Christopher Broderick 08/01/2024 8:14 AM Signed Patient called asking when radiation treatments would be scheduled. Vince Huffman MD 08/01/2024 1:34 PM Signed Therapists will call him and schedule simulation. Thanks. Allergies As of Date: 08/01/2024 (No Known Allergies) Date Reviewed: 06/29/2024 Reviewed by: Poonam Rice, LAY - Fully Assessed Reason for Visit: Appointment [186] Prescriptions as of 08/01/2024 - oxyCODONE-acetaminophen 5-325 mg (PERCOCET) Take 1-2 tablets by mouth every 4 hours as needed (for pain). - ramelteon (ROZEREM) 8 mg tablet Take 1 tablet by mouth daily at bedtime. - azelastine 0.1% nasal spray Use 1 [place] in each nostril two times a day. - lisinopril-hydroCHLOROthia zide (ZESTORETIC) 10-12.5 mg per tablet Take 1 tablet by mouth once daily. - tamsulosin (FLOMAX) 0.4 mg Take 1 capsule by mouth daily at bedtime. - ergocalciferol 50,000 unit capsule (VITAMIN D2, DRISDOL) Take 1 capsule by mouth two times a week. TO BE TAKEN ORALLY DIRECTED. Take 1 tablet by mouth twice weekly [id number], then decrease to 1 tablet weekly. - naproxen (NAPROSYN) 500 mg tablet Take 1 tablet by mouth two times a day as needed (for pain/inflammation). Take with food. - polyethylene glycol 3350 (MIRALAX) 17 gram/dose powder Take 17 g by mouth once daily. Dissolve dose in 4 - 8 ounces of liquid and take as directed. - aspirin, enteric coated (ASPIRIN, ENTERIC COATED) 81 mg EC tablet Take 1 tablet by mouth once daily. Problem List As Of Date 08/01/2024 Noted Resolved Mixed hyperlipidemia [E78.2] 11/09/2005 Unspecified Asthma [J45.909] 11/09/2005 Personal history of other malignant neoplasm of*03/31/2006 Cervical Spondylosis without Myelopathy [M47.81* Family History of Malignant Neoplasm of Gastroi*05/16/2008 Primary Localized Osteoarthrosis, Shoulder Quin*05/16/2008 ACTINIC KERATOSIS (Premalignant AK) [L57.0] 05/17/2008 Other Seborrheic Keratosis [L82.1] 05/17/2008 09/15/2009 ACTINIC DAMAGE///CHR SOLAR SKIN DAMAGE NOS [L57*05/17/2008 09/15/2009 Rosacea [L71.9] 05/17/2008 Primary hypertension [I10] 09/15/2009 Obesity [E66.9] 09/15/2009 Irritated//Inflamed Seborrheic Keratosis [L82.0]09/23/2009 Solar lentigo [L81.4] 09/23/2009 Bladder Neck Obstruction [N32.0] 10/30/2009 Hypertrophy of prostate with urinary obstructio*05/28/2010 Arthritis of shoulder region, left, degenerativ*08/03/2011 Benign neoplasm of rectum and anal canal [D12.8*08/23/2011 Pain in joint, shoulder region [M25.519] 10/21/2011 Chronic knee pain [M25.569, G89.29] 02/28/2017 Preop examination [Z01.818] 11/21/2023 Elevated prostate specific antigen (PSA) [R97.2*11/21/2023 11/29/2023 Obesity, Class I, BMI 30-34.9 [E66.811] 11/21/2023 Prostate cancer (HCC) [C61] 11/29/2023 Encounter Status:Closed by [facility]INCE HU[facility]MAN [facility]01/24 [facility] (RADTWS[facility] -- ZACHARY SHORT ([id number]) 1945 M Date Time Provider Department 07/23/24 VINCE HUFFMAN RADTWS During your visit today, we recorded the following information about you: Christopher Broderick 07/23/2024 10:39 AM Signed Patient called stating he has to cath every day and has 6 catheters left. He did receive some from [facility] when he was inpatient. They are called [employer] soft. they are 13 inches, 33 cm. lubricated. Patient is asking if this is something we can prescribe. Please advise. Kelvin Dowd 07/23/2024 12:01 PM Signed Spoke w pt and he is seeing urologist at [facility], I advised him to call them and get order for supplies. Kelvin Dowd Allergies As of Date: 07/23/2024 (No Known Allergies) Date Reviewed: 06/29/2024 Reviewed by: Poonam Rice, RN - Fully Assessed Reason for Visit: Patient Question [0029] Prescriptions as of 07/23/2024 - oxyCODONE-acetaminophen 5-325 mg (PERCOCET) Take 1-2 tablets by mouth every 4 hours as needed (for pain). - ramelteon (ROZEREM) 8 mg tablet Take 1 tablet by mouth daily at bedtime. - azelastine 0.1% nasal spray Use 1 [place] in each nostril two times a day. - lisinopril-hydroCHLOROthia zide (ZESTORETIC) 10-12.5 mg per tablet Take 1 tablet by mouth once daily. - tamsulosin (FLOMAX) 0.4 mg Take 1 capsule by mouth daily at bedtime. - ergocalciferol 50,000 unit capsule (VITAMIN D2, DRISDOL) Take 1 capsule by mouth two times a week. TO BE TAKEN ORALLY DIRECTED. Take 1 tablet by mouth twice weekly [id number], then decrease to 1 tablet weekly. - naproxen (NAPROSYN) 500 mg tablet Take 1 tablet by mouth two times a day as needed (for pain/inflammation). Take with food. - polyethylene glycol 3350 (MIRALAX) 17 gram/dose powder Take 17 g by mouth once daily. Dissolve dose in 4 - 8 ounces of liquid and take as directed. - aspirin, enteric coated (ASPIRIN, ENTERIC COATED) 81 mg EC tablet Take 1 tablet by mouth once daily. Problem List As Of Date 07/23/2024 Noted Resolved Mixed hyperlipidemia [E78.2] 11/09/2005 Unspecified Asthma [J45.909] 11/09/2005 Personal history of other malignant neoplasm of*03/31/2006 Cervical Spondylosis without Myelopathy [M47.81* Family History of Malignant Neoplasm of Gastroi*05/16/2008 Primary Localized Osteoarthrosis, Shoulder Quin*05/16/2008 ACTINIC KERATOSIS (Premalignant AK) [L57.0] 05/17/2008 Other Seborrheic Keratosis [L82.1] 05/17/2008 09/15/2009 ACTINIC DAMAGE///CHR SOLAR SKIN DAMAGE NOS [L57*05/17/2008 09/15/2009 Rosacea [L71.9] 05/17/2008 Primary hypertension [I10] 09/15/2009 Obesity [E66.9] 09/15/2009 Irritated//Inflamed Seborrheic Keratosis [L82.0]09/23/2009 Solar lentigo [L81.4] 09/23/2009 Bladder Neck Obstruction [N32.0] 10/30/2009 Hypertrophy of prostate with urinary obstructio*05/28/2010 Arthritis of shoulder region, left, degenerativ*08/03/2011 Benign neoplasm of rectum and anal canal [D12.8*08/23/2011 Pain in joint, shoulder region [M25.519] 10/21/2011 Chronic knee pain [M25.569, G89.29] 02/28/2017 Preop examination [Z01.818] 11/21/2023 Elevated prostate specific antigen (PSA) [R97.2*11/21/2023 11/29/2023 Obesity, Class I, BMI 30-34.9 [E66.811] 11/21/2023 Prostate cancer (HCC) [C61] 11/29/2023 Encounter Status:Closed by KELVIN DOWD on 07/23/24 Normal [facility] NM PET/CT PROSTATE WBon 06-30 NM PET/CT PROSTATE WB * * *Final Report* * * * * * SEE BOTTOM OF REPORT FOR ADDENDED TEXT * * * DATE OF EXAM: Jul 16 2024 11:14AM [facility] 0093 - NM PET/CT PROSTATE WB / PROCEDURE REASON: Prostate cancer (HCC) * * * * Physician Interpretation * * * * * * * * * * * * ORIGINAL REPORT * * * * * * * * EXAMINATION: PROSTATE-SPECIFIC MEMBRANE ANTIGEN PET-CT CLINICAL HISTORY: 78-year-old male with history of prostate cancer. * Prostate Cancer Grade: Grade Group 2 ([place] score 3 + 4) * PSA: 17.31 ng/mL 06/25/2024 EXAM CATEGORY: Initial treatment strategy. TECHNIQUE: Radiopharmaceutical was administered intravenously followed later on by PET imaging from the skull vertex to thighs. Free breathing, low dose CT of the same body region was acquired without IV contrast for attenuation correction and anatomic localization. Unenhanced imaging is limited for the evaluation of some pathology and the acquired CT was not designed to produce diagnostic CT scan quality. Physiologic/non-pathologic uptake in some body regions could confound or obscure some pathology. * CT Dose-Length Product (DLP): 565 mGy*cm * CT Dose Reduction Employed: Yes * Injection site: Left Forearm-Antecubital * Injected activity: 9.6 mCi * Uptake Time: 60 minutes * Radiopharmaceutical: F-18 PSMA (Posluma) COMPARISON: No previous PSMA PET/CT available CORRELATION: MRI prostate 09/22/2023, bone scan 12/09/2023 RESULT: REFERENCES: Uptake by the injected radiopharmaceutical serves as a surrogate marker for prostate-specific membrane antigen (PSMA) expression. All reported standardized uptake values represent maximum SUV (SUVmax) per body weight, unless otherwise specified. SUV Reference Values: * Background Salivary Gland: SUVmax 30.1 * Blood Pool (Descending Aorta): SUVmax 2.4 * Background Liver: SUVmax 4.2 Localizer Images: Left shoulder arthroplasty. HEAD AND NECK: Head: No radiotracer avid lesion or mass effect in the intracranial compartment. Aerodigestive Tract: No radiotracer avid lesion. Lymph Nodes: No radiotracer avid lymphadenopathy. Neck Soft Tissues: No radiotracer avid thyroid nodule. CHEST: Lungs and Pleura: No radiotracer avid mass, nodule, or consolidation. No pleural effusion. Lymph Nodes: No radiotracer avid lymphadenopathy. Mediastinum: No radiotracer avid mass. Cardiovascular: Blood pool activity. No pericardial effusion. Normal heart size. Coronary artery calcifications. Chest Wall: No radiotracer avid soft tissue lesion. ABDOMEN AND PELVIS: Hepatobiliary: No radiotracer avid lesion. No measurable mass. Spleen: No radiotracer avid lesion. No splenomegaly. Pancreas: No radiotracer avid lesion. Adrenals: No radiotracer avid nodule. Urinary Tract: Physiologic radiotracer excretion in the urinary tract. No hydronephrosis. GI Tract: No radiotracer avid lesion. No bowel dilation. Peritoneum: No radiotracer avid lesion. No ascites. Lymph Nodes: * Abdomen (including common iliac): No radiotracer avid lymphadenopathy. * Pelvis (below common iliac): No radiotracer avid lymphadenopathy. Vasculature: Blood pool activity. Abdominal aortic atherosclerotic calcifications without aneurysm. Prostate and Seminal Vesicles: Tracer avid left anterior mid to upper apical transition zone with SUV max 9.0. Pelvis Soft Tissues: No radiotracer avid lesion. MUSCULOSKELETAL: Bones: Few tracer avid lesions including left lateral eighth rib with SUV max 6.6, T12 at costovertebral junction with SUV max 3.8, and left lateral L4 with SUV max 3.8. Soft Tissues: No radiotracer avid lesion. IMPRESSION: PROSTATE: * Tracer avid left anterior mid to upper apical transition zone lesion. AIDEN DISEASE: * No PSMA expressing pelvic lymphadenopathy. METASTATIC DISEASE: * Oligo metastatic disease to the bones. * * * * * * * * ADDENDUM #1 * * * * * * * * The osseous foci of mild to moderate uptake at left sided costochondral and costovertebral junctions are likely posttraumatic as patient had a fall about one month prior to the PET/CT scan. Slitter Cut Off Operator: [facility] Transcribe Date/Time: Jul 18 2024 2:30P Dictated by : MAE FRANCIS MD This examination was interpreted and the report reviewed and electronically signed by: MAE FRANCIS MD on Jul 16 2024 1:21PM EST This document has been addended by: MAE FRANCIS MD on Jul 18 2024 2:33PM EST [id number] Normal [facility] PET+CT Guidance for localiza tion of tumor of Whole body-- W [id number] Aneta 07-16-2024 IMPRESSION: PROSTATE: * Tracer avid left anterior mid to upper apical transition zone lesion. AIDEN DISEASE: * No PSMA expressing pelvic lymphadenopathy. METASTATIC DISEASE: * Oligo metastatic disease to the bones. Slitter Cut Off Operator: [facility] Transcribe Date/Time: Jul 16 2024 1:08P Dictated by : MAE FRANCIS MD This examination was interpreted and the report reviewed and electronically signed by: MAE FRANCIS MD on Jul 16 2024 1:21PM [facility] RADIOLOGY * * *Final Report* * * DATE OF EXAM: Jul 16 2024 11:14AM [facility] 0093 - NM PET/CT PROSTATE WB / PROCEDURE REASON: Prostate cancer (HCC) * * * * Physician Interpretation * * * * EXAMINATION: PROSTATE-SPECIFIC MEMBRANE ANTIGEN PET-CT CLINICAL HISTORY: 78-year-old male with history of prostate cancer. * Prostate Cancer Grade: Grade Group 2 (Nordheim score 3 + 4) * PSA: 17.31 ng/mL 06/25/2024 EXAM CATEGORY: Initial treatment strategy. TECHNIQUE: Radiopharmaceutical was administered intravenously followed later on by PET imaging from the skull vertex to thighs. Free breathing, low dose CT of the same body region was acquired without IV contrast for attenuation correction and anatomic localization. Unenhanced imaging is limited for the evaluation of some pathology and the acquired CT was not designed to produce diagnostic CT scan quality. Physiologic/non-pathologic uptake in some body regions could confound or obscure some pathology. * CT Dose-Length Product (DLP): 565 mGy*cm * CT Dose Reduction Employed: Yes * Injection site: Left Forearm-Antecubital * Injected activity: 9.6 mCi * Uptake Time: 60 minutes * Radiopharmaceutical: F-18 PSMA (Posluma) COMPARISON: No previous PSMA PET/CT available CORRELATION: MRI prostate 09/22/2023, bone scan 12/09/2023 RESULT: REFERENCES: Uptake by the injected radiopharmaceutical serves as a surrogate marker for prostate-specific membrane antigen (PSMA) expression. All reported standardized uptake values represent maximum SUV (SUVmax) per body weight, unless otherwise specified. SUV Reference Values: * Background Salivary Gland: SUVmax 30.1 * Blood Pool (Descending Aorta): SUVmax 2.4 * Background Liver: SUVmax 4.2 Localizer Images: Left shoulder arthroplasty. HEAD AND NECK: Head: No radiotracer avid lesion or mass effect in the intracranial compartment. Aerodigestive Tract: No radiotracer avid lesion. Lymph Nodes: No radiotracer avid lymphadenopathy. Neck Soft Tissues: No radiotracer avid thyroid nodule. CHEST: Lungs & Pleura: No radiotracer avid mass, nodule, or consolidation. No pleural effusion. Lymph Nodes: No radiotracer avid lymphadenopathy. Mediastinum: No radiotracer avid mass. Cardiovascular: Blood pool activity. No pericardial effusion. Normal heart size. Coronary artery calcifications. Chest Wall: No radiotracer avid soft tissue lesion. ABDOMEN AND PELVIS: Hepatobiliary: No radiotracer avid lesion. No measurable mass. Spleen: No radiotracer avid lesion. No splenomegaly. Pancreas: No radiotracer avid lesion. Adrenals: No radiotracer avid nodule. Urinary Tract: Physiologic radiotracer excretion in the urinary tract. No hydronephrosis. GI Tract: No radiotracer avid lesion. No bowel dilation. Peritoneum: No radiotracer avid lesion. No ascites. Lymph Nodes: * Abdomen (including common iliac): No radiotracer avid lymphadenopathy. * Pelvis (below common iliac): No radiotracer avid lymphadenopathy. Vasculature: Blood pool activity. Abdominal aortic atherosclerotic calcifications without aneurysm. Prostate & Seminal Vesicles: Tracer avid left anterior mid to upper apical transition zone with SUV max 9.0. Pelvis Soft Tissues: No radiotracer avid lesion. MUSCULOSKELETAL: Bones: Few tracer avid lesions including left lateral eighth rib with SUV max 6.6, T12 at costovertebral junction with SUV max 3.8, and left lateral L4 with SUV max 3.8. Soft Tissues: No radiotracer avid lesion. [facility] RADIOLOGY Provider, Tono Mosher - 07/16/2024 * * *Final Report* * * DATE OF EXAM: Jul 16 2024 11:14AM [facility] 0093 - NM PET/CT PROSTATE WB / PROCEDURE REASON: Prostate cancer (HCC) * * * * Physician Interpretation * * * * EXAMINATION: PROSTATE-SPECIFIC MEMBRANE ANTIGEN PET-CT CLINICAL HISTORY: 78-year-old male with history of prostate cancer. * Prostate Cancer Grade: Grade Group 2 (Nordheim score 3 + 4) * PSA: 17.31 ng/mL 06/25/2024 EXAM CATEGORY: Initial treatment strategy. TECHNIQUE: Radiopharmaceutical was administered intravenously followed later on by PET imaging from the skull vertex to thighs. Free breathing, low dose CT of the same body region was acquired without IV contrast for attenuation correction and anatomic localization. Unenhanced imaging is limited for the evaluation of some pathology and the acquired CT was not designed to produce diagnostic CT scan quality. Physiologic/non-pathologic uptake in some body regions could confound or obscure some pathology. * CT Dose-Length Product (DLP): 565 mGy*cm * CT Dose Reduction Employed: Yes * Injection site: Left Forearm-Antecubital * Injected activity: 9.6 mCi * Uptake Time: 60 minutes * Radiopharmaceutical: F-18 PSMA (Posluma) COMPARISON: No previous PSMA PET/CT available CORRELATION: MRI prostate 09/22/2023, bone scan 12/09/2023 RESULT: REFERENCES: Uptake by the injected radiopharmaceutical serves as a surrogate marker for prostate-specific membrane antigen (PSMA) expression. All reported standardized uptake values represent maximum SUV (SUVmax) per body weight, unless otherwise specified. SUV Reference Values: * Background Salivary Gland: SUVmax 30.1 * Blood Pool (Descending Aorta): SUVmax 2.4 * Background Liver: SUVmax 4.2 Localizer Images: Left shoulder arthroplasty. HEAD AND NECK: Head: No radiotracer avid lesion or mass effect in the intracranial compartment. Aerodigestive Tract: No radiotracer avid lesion. Lymph Nodes: No radiotracer avid lymphadenopathy. Neck Soft Tissues: No radiotracer avid thyroid nodule. CHEST: Lungs & Pleura: No radiotracer avid mass, nodule, or consolidation. No pleural effusion. Lymph Nodes: No radiotracer avid lymphadenopathy. Mediastinum: No radiotracer avid mass. Cardiovascular: Blood pool activity. No pericardial effusion. Normal heart size. Coronary artery calcifications. Chest Wall: No radiotracer avid soft tissue lesion. ABDOMEN AND PELVIS: Hepatobiliary: No radiotracer avid lesion. No measurable mass. Spleen: No radiotracer avid lesion. No splenomegaly. Pancreas: No radiotracer avid lesion. Adrenals: No radiotracer avid nodule. Urinary Tract: Physiologic radiotracer excretion in the urinary tract. No hydronephrosis. GI Tract: No radiotracer avid lesion. No bowel dilation. Peritoneum: No radiotracer avid lesion. No ascites. Lymph Nodes: * Abdomen (including common iliac): No radiotracer avid lymphadenopathy. * Pelvis (below common iliac): No radiotracer avid lymphadenopathy. Vasculature: Blood pool activity. Abdominal aortic atherosclerotic calcifications without aneurysm. Prostate & Seminal Vesicles: Tracer avid left anterior mid to upper apical transition zone with SUV max 9.0. Pelvis Soft Tissues: No radiotracer avid lesion. MUSCULOSKELETAL: Bones: Few tracer avid lesions including left lateral eighth rib with SUV max 6.6, T12 at costovertebral junction with SUV max 3.8, and left lateral L4 with SUV max 3.8. Soft Tissues: No radiotracer avid lesion. IMPRESSION IMPRESSION: PROSTATE: * Tracer avid left anterior mid to upper apical transition zone lesion. AIDEN DISEASE: * No PSMA expressing pelvic lymphadenopathy. METASTATIC DISEASE: * Oligo metastatic disease to the bones. Slitter Cut Off Operator[facility] Transcribe Date/Time: Jul 16 2024 1:08P Dictated by : MAE FRANCIS MD This examination was interpreted and the report reviewed and electronically signed by: MAE FRANCIS MD on Jul 16 2024 1:21PM EST [facility] Radiology Study observation (narrative) [facility] PET+CT Guidance for localiza tion of tumor of Whole body-- [id number] IVOrdered By: [facility]cf Provider on 07-16-2024 [facility] Jluis 07-02-2024 CNPN Telephone (INTMWS) -- HANZACHARY PATEL ([id number]) 1945 M Date Time Provider Department 07/02/24 AILIN PIERSON INTMWS During your visit today, we recorded the following information about you: Susan Sher 07/02/2024 8:37 AM Signed Patient calling in to see if he can get something called in for him, he is having Congestion, temp 99.5, can't sleep,and cough. Patient denies appiontment due to already having one at [facility] at 11 am today. Please review and advise. Susan Sher July 02, 2024 8:36 AM Carley Khan MA 07/02/2024 10:19 AM Signed PAOLA 06/26/24. Please review and advise. YENY Angel Chitra, MD 07/02/2024 5:22 PM Signed I sent some syrup for disruptive cough, but he needs to take tylenol for pain and fever, Can take otc delsym for congestions. Regards, Hari Limon MD, RN 07/02/2024 6:33 PM Signed Pt called and is notified of providers message and instructions. Pt voices understanding. Hari Rodriguez RN Allergies As of Date: 07/02/2024 (No Known Allergies) Date Reviewed: 06/29/2024 Reviewed by: Poonam Rice, LAY - Fully Assessed Reason for Visit: Patient Question [1477] Primary Visit Diagnosis:Upper respiratory tract infection, unspecified type [J06.9] Order(s):HYDROcodone-homat ropine (HYCODAN, WITH HOMATROPINE,) 5-1.5 mg/5 mL syrupTake 5 mL by mouth every 6 hours as needed for cough for up to 5 days.Disp: 100 mLRfl: 0 Prescriptions as of 07/02/2024 - HYDROcodone-homatropine (HYCODAN, WITH HOMATROPINE,) 5-1.5 mg/5 mL syrup Take 5 mL by mouth every 6 hours as needed for cough for up to 5 days. - oxyCODONE-acetaminophen 5-325 mg (PERCOCET) Take 1-2 tablets by mouth every 4 hours as needed (for pain). - ramelteon (ROZEREM) 8 mg tablet Take 1 tablet by mouth daily at bedtime. - azelastine 0.1% nasal spray Use 1 [place] in each nostril two times a day. - lisinopril-hydroCHLOROthia zide (ZESTORETIC) 10-12.5 mg per tablet Take 1 tablet by mouth once daily. - tamsulosin (FLOMAX) 0.4 mg Take 1 capsule by mouth daily at bedtime. - ergocalciferol 50,000 unit capsule (VITAMIN D2, DRISDOL) Take 1 capsule by mouth two times a week. TO BE TAKEN ORALLY DIRECTED. Take 1 tablet by mouth twice weekly [id number], then decrease to 1 tablet weekly. - naproxen (NAPROSYN) 500 mg tablet Take 1 tablet by mouth two times a day as needed (for pain/inflammation). Take with food. - polyethylene glycol 3350 (MIRALAX) 17 gram/dose powder Take 17 g by mouth once daily. Dissolve dose in 4 - 8 ounces of liquid and take as directed. - aspirin, enteric coated (ASPIRIN, ENTERIC COATED) 81 mg EC tablet Take 1 tablet by mouth once daily. Problem List As Of Date 07/02/2024 Noted Resolved Mixed hyperlipidemia [E78.2] 11/09/2005 Unspecified Asthma [J45.909] 11/09/2005 Personal history of other malignant neoplasm of*03/31/2006 Cervical Spondylosis without Myelopathy [M47.81* Family History of Malignant Neoplasm of Gastroi*05/16/2008 Primary Localized Osteoarthrosis, Shoulder Quin*05/16/2008 ACTINIC KERATOSIS (Premalignant AK) [L57.0] 05/17/2008 Other Seborrheic Keratosis [L82.1] 05/17/2008 09/15/2009 ACTINIC DAMAGE///CHR SOLAR SKIN DAMAGE NOS [L57*05/17/2008 09/15/2009 Rosacea [L71.9] 05/17/2008 Primary hypertension [I10] 09/15/2009 Obesity [E66.9] 09/15/2009 Irritated//Inflamed Seborrheic Keratosis [L82.0]09/23/2009 Solar lentigo [L81.4] 09/23/2009 Bladder Neck Obstruction [N32.0] 10/30/2009 Hypertrophy of prostate with urinary obstructio*05/28/2010 Arthritis of shoulder region, left, degenerativ*08/03/2011 Benign neoplasm of rectum and anal canal [D12.8*08/23/2011 Pain in joint, shoulder region [M25.519] 10/21/2011 Chronic knee pain [M25.569, G89.29] 02/28/2017 Preop examination [Z01.818] 11/21/2023 Elevated prostate specific antigen (PSA) [R97.2*11/21/2023 11/29/2023 Obesity, Class I, BMI 30-34.9 [E66.811] 11/21/2023 Prostate cancer (HCC) [C61] 11/29/2023 Prescriptions ordered this encounter Disp Refills Start End HYDROCODONE-HOMATROPINE 5 MG-1.5 MG/* 100 * 0 07/02/2024 07/07/2024 Route: ORAL Sig: Take 5 mL by mouth every 6 hours as needed for cough for up to 5 days. Encounter Status:Closed by HARI RODRIGUEZ on 07/02/24 [facility] CNOVon 06-29-2024 CNOV Office Visit (RADTWS ) -- ZACHARY SHORT ([id number]) 1945 M Date Time Provider Department 06/29/24 11:00 AM VINCE HUFFMAN During your visit today, we recorded the following information about you: Temperature Pulse Respiration Blood pressure 98 degrees 71/minute 15/minute 118/69 Weight 110.2 kg Poonam Rice RN 07/03/2024 10:55 AM Signed Radiation Therapy - Nursing Note (Follow-up) PATIENT NAME: Zachary Short PATIENT June 29, 2024 [facility] FACILITY/LOCATION: [place] Reason for visit: Follow up to discuss treatment options. Subjective Data Pt reports that he is straight cathing daily per Dr Blanton. Pt reports being more emotional, fatigued, shaking hands, increased falls, weakness and poor balance since before . Pt reports burning sensation in lower abdomen toward prostate when he tries to urinate for the last 2-3 days. Additional Data Do you want to see a Physical Science Technician? No Nursing Assessment Fatigue: moderate; causing difficulty performing some activities Appetite: fair Weight Gain/Loss: No Last 6 Encounter Wt Readings: Date: Wt: 06/29/2024 110.2 kg (243 lb) 06/26/2024 110.7 kg (244 lb) 05/16/2024 109.3 kg (241 lb) 04/23/2024 111 kg (244 lb 11.4 oz) 01/05/2024 113.4 kg (250 lb) 01/03/2024 111.1 kg (245 lb) Bowel Function: constipation 0 - bowel movement every day Bone Pain: severe pain: pain or analgesics severely interfering with activities of daily living and bone pain from injuries sustained from multiple falls. Focused Assessment PROSTATE - MALE PELVIS: Rectal bleeding: No. Rectal pain: No. Bladder function: no problems, incomplete emptying, retention. Urinary frequency (D/N): 4-5/2-3 plus straight cath once daily prior to bed. SIGNED by: LAY Bishop Daesung, MD 07/03/2024 10:55 AM Signed Radiation Oncology - Follow Up Note PATIENT NAME: Zachary Short PATIENT DIAGNOSIS: Stage IIA, T1c cN0, prostate adenocarcinoma with Nordheim score 7 (3+4), grade group 2, and PSA 17.31 ng/mL. INTERVAL HISTORY: When I saw him back in December, he decided not to pursue radiation treatment. He is now referred back to me because he is reconsidering his treatment options. He had an episode of fall and was told to have fracture in his lumbar spine recently. PSA on 06/25/24 was 17.31 and progressed from 12.32 six months ago. ALLERGIES No Known Allergies MEDICATIONS: oxyCODONE-acetaminophen 5-325 mg (PERCOCET) Take 1-2 tablets by mouth every 4 hours as needed (for pain). ramelteon (ROZEREM) 8 mg tablet Take 1 tablet by mouth daily at bedtime. azelastine 0.1% nasal spray Use 1 [place] in each nostril two times a day. lisinopril-hydroCHLOROthia zide (ZESTORETIC) 10-12.5 mg per tablet Take 1 tablet by mouth once daily. tamsulosin (FLOMAX) 0.4 mg Take 1 capsule by mouth daily at bedtime. ergocalciferol 50,000 unit capsule (VITAMIN D2, DRISDOL) Take 1 capsule by mouth two times a week. TO BE TAKEN ORALLY DIRECTED. Take 1 tablet by mouth twice weekly [id number], then decrease to 1 tablet weekly. polyethylene glycol 3350 (MIRALAX) 17 gram/dose powder Take 17 g by mouth once daily. Dissolve dose in 4 - 8 ounces of liquid and take as directed. HYDROcodone-homatropine (HYCODAN, WITH HOMATROPINE,) 5-1.5 mg/5 mL syrup Take 5 mL by mouth every 6 hours as needed for cough for up to 5 days. naproxen (NAPROSYN) 500 mg tablet Take 1 tablet by mouth two times a day as needed (for pain/inflammation). Take with food. (Patient not taking: Reported on 06/26/2024) aspirin, enteric coated (ASPIRIN, ENTERIC COATED) 81 mg EC tablet Take 1 tablet by mouth once daily. (Patient not taking: Reported on 06/26/2024) PHYSICAL EXAM: VS: BP 118/69 Pulse 71 Temp 36.7 ?C (98 ?F) (Temporal) Resp 15 Wt 110.2 kg (243 lb) SpO2 98% BMI 32.96 kg/m? KPS: 90 General Appearance: Alert and oriented. No acute distress. HEENT: NCAT. Sclera anicteric. EOMI. Neck: Normal ROM. Chest: No respiratory distress. Musculoskeletal: Normal ROM in extremities. Neuro: Speech fluent. No focal deficits. Hematologic: No signs of active bleeding ASSESSMENT AND PLAN: 78 year old man with stage IIA, T1c cN0, prostate adenocarcinoma with Nordheim score 7 (3+4), grade group 2, and PSA 17.31 ng/mL. He declined radiation treatment before. However, now his PSA is progressing and he is reconsidering. I will get PSMA PET scan for staging. If that's negative for distant metastasis, he may be a candidate for definitive radiation treatment and a short term hormonal therapy. I will talk to him after his PET scan. Signed by: Vince Huffman MD cc: Ailin Pierson [id number] [place] [address] Referring Provider: SELF [200] Allergies As of Date: 06/29/2024 (No Known Allergies) Date Reviewed: 06/29/2024 Reviewed by: Mikhail (more content not included)... Normal [facility] CNPNon 06-28-2024 CNPN Telephone (INTMWS) -- ZACHARY SHORT ([id number]) 1945 M Date Time Provider Department 06/28/24 AILIN PIERSON INTMWS During your visit today, we recorded the following information about you: Ailin Pierson MD 06/28/2024 10:54 AM Signed Hi Luly Blanton and Dr Huffman, This patient had a couple falls in the past 2 months , on of them was severe, where he lay on the floor for 15 hours as he could not call any one. Developed severe back ache from it , the pain has motivated him to seek treatment for the prostate cancer. He has several lumbar vertebral fractures, and rib fractures. Would you think the bones are brittle from the prostate cancer/. The last NM scan did not show mets but that was around a year ago and things could have changed. I will try to treat him with prolia Could you help me with understanding what are his treatment options at this point? And his prognosis? He is motivated for the first time to consider all his options. Thank you Vince Winn MD, MD 06/28/2024 1:30 PM Signed If he doesn't have metastasis, he is a candidate for a short course of hormone therapy and definitive radiation treatment. I understand your concern for possible bone metastases. If he had recent lumbar spine fracture, I'm not sure how helpful repeat bone scan would be. I can get PSMA PET scan if his insurance company approves. He is scheduled to see me tomorrow and I will order PSMA PET then. Thank you for brining up your concerns! Ailin Orellana MD 06/28/2024 1:38 PM Signed Please call patient and let him know to keep the apt tomorrow with I just communicated with him and he has plan to give the medication and then radiation and also do a bone scan on him tomorrow. He can keep the augie visit for a second opinion and make decisions after visit. I think since Dr Huffman can see him tomorrow we should try to keep that appointment Regards, Lea Jones MD, LPN 06/28/2024 4:18 PM Signed Called and spoke to Zachary and updated patient. Patient planning on keeping appointment with Dr Huffman for tomorrow, patient son will accompany patient to appointment. Lea Hargrove LPN June 28, 2024 4:18 PM Allergies As of Date: 06/28/2024 (No Known Allergies) Date Reviewed: 06/26/2024 Reviewed by: Mine Campebll MA - Fully Assessed Prescriptions as of 06/28/2024 - ramelteon (ROZEREM) 8 mg tablet Take 1 tablet by mouth daily at bedtime. - azelastine 0.1% nasal spray Use 1 [place] in each nostril two times a day. - lisinopril-hydroCHLOROthia zide (ZESTORETIC) 10-12.5 mg per tablet Take 1 tablet by mouth once daily. - tamsulosin (FLOMAX) 0.4 mg Take 1 capsule by mouth daily at bedtime. - ergocalciferol 50,000 unit capsule (VITAMIN D2, DRISDOL) Take 1 capsule by mouth two times a week. TO BE TAKEN ORALLY DIRECTED. Take 1 tablet by mouth twice weekly [id number], then decrease to 1 tablet weekly. - naproxen (NAPROSYN) 500 mg tablet Take 1 tablet by mouth two times a day as needed (for pain/inflammation). Take with food. - polyethylene glycol 3350 (MIRALAX) 17 gram/dose powder Take 17 g by mouth once daily. Dissolve dose in 4 - 8 ounces of liquid and take as directed. - aspirin, enteric coated (ASPIRIN, ENTERIC COATED) 81 mg EC tablet Take 1 tablet by mouth once daily. Problem List As Of Date 06/28/2024 Noted Resolved Mixed hyperlipidemia [E78.2] 11/09/2005 Unspecified Asthma [J45.909] 11/09/2005 Personal history of other malignant neoplasm of*03/31/2006 Cervical Spondylosis without Myelopathy [M47.81* Family History of Malignant Neoplasm of Gastroi*05/16/2008 Primary Localized Osteoarthrosis, Shoulder Quin*05/16/2008 ACTINIC KERATOSIS (Premalignant AK) [L57.0] 05/17/2008 Other Seborrheic Keratosis [L82.1] 05/17/2008 09/15/2009 ACTINIC DAMAGE///CHR SOLAR SKIN DAMAGE NOS [L57*05/17/2008 09/15/2009 Rosacea [L71.9] 05/17/2008 Primary hypertension [I10] 09/15/2009 Obesity [E66.9] 09/15/2009 Irritated//Inflamed Seborrheic Keratosis [L82.0]09/23/2009 Solar lentigo [L81.4] 09/23/2009 Bladder Neck Obstruction [N32.0] 10/30/2009 Hypertrophy of prostate with urinary obstructio*05/28/2010 Arthritis of shoulder region, left, degenerativ*08/03/2011 Benign neoplasm of rectum and anal canal [D12.8*08/23/2011 Pain in joint, shoulder region [M25.519] 10/21/2011 Chronic knee pain [M25.569, G89.29] 02/28/2017 Preop examination [Z01.818] 11/21/2023 Elevated prostate specific antigen (PSA) [R97.2*11/21/2023 11/29/2023 Obesity, Class I, BMI 30-34.9 [E66.811] 11/21/2023 Prostate cancer (HCC) [C61] 11/29/2023 Encounter Status:Closed by LEA HARGROVE on 06/28/24 [facility] Telephone (INTMWS) -- ZACHARY SHORT ([id number]) 1945 M Date Time Provider Department 06/28/24 AILIN PIRESON INTMWS During your visit today, we recorded the following information about you: Lea Hargrove LPN 06/28/2024 10:47 AM Addendum Called and spoke to Martha with Dr Soto office (Urology) [facility]. Updated Martha, who will call patient to set up appointment. Dr Pierson would like patient to be seen [facility] regarding prostate cancer. Patient is willing to see Urology and was apprehensive previously to follow up. Dr Pierson is willing to do a peer to peer with Dr Soto if needed. Urologist requested order, office note and face sheet to be faxed over to their office. Faxed done. [facility] office # [phone] Lea Hargrove LPN June 28, 2024 9:58 AM Allergies As of Date: 06/28/2024 (No Known Allergies) Date Reviewed: 06/26/2024 Reviewed by: Mine Campbell MA - Fully Assessed Reason for Visit: Appointment [[id number]] Cmt: Urology Augie Prescriptions as of 06/28/2024 - ramelteon (ROZEREM) 8 mg tablet Take 1 tablet by mouth daily at bedtime. - azelastine 0.1% nasal spray Use 1 [place] in each nostril two times a day. - lisinopril-hydroCHLOROthia zide (ZESTORETIC) 10-12.5 mg per tablet Take 1 tablet by mouth once daily. - tamsulosin (FLOMAX) 0.4 mg Take 1 capsule by mouth daily at bedtime. - ergocalciferol 50,000 unit capsule (VITAMIN D2, DRISDOL) Take 1 capsule by mouth two times a week. TO BE TAKEN ORALLY DIRECTED. Take 1 tablet by mouth twice weekly [id number], then decrease to 1 tablet weekly. - naproxen (NAPROSYN) 500 mg tablet Take 1 tablet by mouth two times a day as needed (for pain/inflammation). Take with food. - polyethylene glycol 3350 (MIRALAX) 17 gram/dose powder Take 17 g by mouth once daily. Dissolve dose in 4 - 8 ounces of liquid and take as directed. - aspirin, enteric coated (ASPIRIN, ENTERIC COATED) 81 mg EC tablet Take 1 tablet by mouth once daily. Problem List As Of Date 06/28/2024 Noted Resolved Mixed hyperlipidemia [E78.2] 11/09/2005 Unspecified Asthma [J45.909] 11/09/2005 Personal history of other malignant neoplasm of*03/31/2006 Cervical Spondylosis without Myelopathy [M47.81* Family History of Malignant Neoplasm of Gastroi*05/16/2008 Primary Localized Osteoarthrosis, Shoulder Quin*05/16/2008 ACTINIC KERATOSIS (Premalignant AK) [L57.0] 05/17/2008 Other Seborrheic Keratosis [L82.1] 05/17/2008 09/15/2009 ACTINIC DAMAGE///CHR SOLAR SKIN DAMAGE NOS [L57*05/17/2008 09/15/2009 Rosacea [L71.9] 05/17/2008 Primary hypertension [I10] 09/15/2009 Obesity [E66.9] 09/15/2009 Irritated//Inflamed Seborrheic Keratosis [L82.0]09/23/2009 Solar lentigo [L81.4] 09/23/2009 Bladder Neck Obstruction [N32.0] 10/30/2009 Hypertrophy of prostate with urinary obstructio*05/28/2010 Arthritis of shoulder region, left, degenerativ*08/03/2011 Benign neoplasm of rectum and anal canal [D12.8*08/23/2011 Pain in joint, shoulder region [M25.519] 10/21/2011 Chronic knee pain [M25.569, G89.29] 02/28/2017 Preop examination [Z01.818] 11/21/2023 Elevated prostate specific antigen (PSA) [R97.2*11/21/2023 11/29/2023 Obesity, Class I, BMI 30-34.9 [E66.811] 11/21/2023 Prostate cancer (HCC) [C61] 11/29/2023 Encounter Status:Closed by LEA HARGROVE on 06/28/24 [facility] CNPNon 06-27-2024 CNPN Telephone (RADTWS) -- ZACHARY SHORT ([id number]) 1945 M Date Time Provider Department 06/27/24 VINCE HUFFMAN During your visit today, we recorded the following information about you: Christopher Broderick 06/27/2024 8:04 AM Signed Unscheduled order from yesterday- Dr. Pierson. Please note telephone encounter from Dr. Blanton's office. order from PCP- Prostate Cancer, ref prov Dr. Pierson. Message from Dr. Blanton's office - Juan Blanton Jr., MD [facility] Clinical Pool Psa [phone] Recommend fu with rad/onc Patient informed. He was told to call Dr. Huffman's office to set up a follow up but wanted to keep his appointment with Dr. Blanton on 07/24/24. Mayi Stallings MA Clinical, please advise. Do we call and set up consult after 07/24? Ayah Nice 06/27/2024 12:56 PM Signed I called and spoke to Zachary and scheduled him to come in this week Tuesday06/29/24 @ 11:00 am, patient confirmed this date AND time Ayah [place] Pss Allergies As of Date: 06/27/2024 (No Known Allergies) Date Reviewed: 06/26/2024 Reviewed by: Mine Campbell MA - Fully Assessed Reason for Visit: New Patient [172] Prescriptions as of 06/27/2024 - ramelteon (ROZEREM) 8 mg tablet Take 1 tablet by mouth daily at bedtime. - azelastine 0.1% nasal spray Use 1 [place] in each nostril two times a day. - lisinopril-hydroCHLOROthia zide (ZESTORETIC) 10-12.5 mg per tablet Take 1 tablet by mouth once daily. - tamsulosin (FLOMAX) 0.4 mg Take 1 capsule by mouth daily at bedtime. - ergocalciferol 50,000 unit capsule (VITAMIN D2, DRISDOL) Take 1 capsule by mouth two times a week. TO BE TAKEN ORALLY DIRECTED. Take 1 tablet by mouth twice weekly [id number], then decrease to 1 tablet weekly. - naproxen (NAPROSYN) 500 mg tablet Take 1 tablet by mouth two times a day as needed (for pain/inflammation). Take with food. - polyethylene glycol 3350 (MIRALAX) 17 gram/dose powder Take 17 g by mouth once daily. Dissolve dose in 4 - 8 ounces of liquid and take as directed. - aspirin, enteric coated (ASPIRIN, ENTERIC COATED) 81 mg EC tablet Take 1 tablet by mouth once daily. Problem List As Of Date 06/27/2024 Noted Resolved Mixed hyperlipidemia [E78.2] 11/09/2005 Unspecified Asthma [J45.909] 11/09/2005 Personal history of other malignant neoplasm of*03/31/2006 Cervical Spondylosis without Myelopathy [M47.81* Family History of Malignant Neoplasm of Gastroi*05/16/2008 Primary Localized Osteoarthrosis, Shoulder Quin*05/16/2008 ACTINIC KERATOSIS (Premalignant AK) [L57.0] 05/17/2008 Other Seborrheic Keratosis [L82.1] 05/17/2008 09/15/2009 ACTINIC DAMAGE///CHR SOLAR SKIN DAMAGE NOS [L57*05/17/2008 09/15/2009 Rosacea [L71.9] 05/17/2008 Primary hypertension [I10] 09/15/2009 Obesity [E66.9] 09/15/2009 Irritated//Inflamed Seborrheic Keratosis [L82.0]09/23/2009 Solar lentigo [L81.4] 09/23/2009 Bladder Neck Obstruction [N32.0] 10/30/2009 Hypertrophy of prostate with urinary obstructio*05/28/2010 Arthritis of shoulder region, left, degenerativ*08/03/2011 Benign neoplasm of rectum and anal canal [D12.8*08/23/2011 Pain in joint, shoulder region [M25.519] 10/21/2011 Chronic knee pain [M25.569, G89.29] 02/28/2017 Preop examination [Z01.818] 11/21/2023 Elevated prostate specific antigen (PSA) [R97.2*11/21/2023 11/29/2023 Obesity, Class I, BMI 30-34.9 [E66.811] 11/21/2023 Prostate cancer (HCC) [C61] 11/29/2023 Encounter Status:Closed by AYAH NICE on 06/27/24 [facility] CNOVon 06-26-2024 CNOV Office Visit (INTMWS ) -- HANZACHARY Bates ([id number]) 1945 M Date Time Provider Department 06/26/24 3:40 PM AILIN PIERSON INTMWS During your visit today, we recorded the following information about you: Pulse Respiration Blood pressure Weight 78/minute 18/minute 112/70 110.7 kg Aiiln Pierson MD 06/28/2024 10:39 AM Signed Reason for Visit Patient presents with: [facility] F/U Zacharytanya Short is a 78 year old male who presents here today for Above Complaints.. Health Maintenance Depression Screening Anxiety Screening DTaP,Tdap,Td Vaccine(1 - Tdap) Shingrix Vaccine(1 of 2) RSV Vaccine(1 - 1-dose 75+ series) Advance Directive Discussion MARGIE Sharma is a very pleasant 78-year-old gentleman who was diagnosed with prostate cancer, has arthritis of the back, LUTS, hypertension and obesity. He is here with his son for a hospital discharge follow-up. Over the past 2 months he has been to the hospital 2 times,. Both times after a fall. He has in the last visit broken multiple ribs and fractured vertebral bones. He was admitted on June 19, 2024 to June 21, 2024 at [facility]. 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 He was admitted for a couple days and was adequately given pain relief and DVT prophylaxis and discharged. Prior to this he was admitted in April at [facility] for tripping and falling out of the bed, he could not get up and could not call his family members and he was laying for 15 hours. He had a bowel movement and he had passed urine 2 times in the position. Both his sons found him 15 hours later, he had developed rhambomyolysis, usama and found to have uti. Since then he has been having severe pain in back. Until the last visit in the office with me he was not motivated to have any treatment done for his prostate cancer and wanted to just let things ride. But after the awful experience he had after the fall and the chronic pain he has in the back he is open to getting treatment and is very motivated to getting many things done. He was told that he has probably severe sleep apnea and for the first time he says he would consider getting PAP treatment if he has to use it. His current urologist has referred him for radiation therapy as surgery was not preferable at his age, and he wants to have a second opinion. He also wants to know all the options he has for treatment. We discussed that his options are mostly palliative at this point and it will aid his quality of life. Over the past few years after watching his he has talked more about quality of life and wanting to live and do things he wants to do rather than being treated and today he has changed that outlook a little bit and seems more motivated. No problem-specific Assessment AND Plan notes found for this encounter. 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 Only seasonal now PAST SURGICAL HISTORY Procedure Laterality Date ARTHROPLASTY HEMIARTHROPLASTY 09/10/2011 left shoulder Ari arthroplasty ARTHROPLASTY HEMIARTHROPLASTY 03/07/2012 left shoulder revision COLONOSCOPY AND POLYPECTOMY 08/23/11 repeat 5 years COLONOSCOPY FLX DX W/COLLJ SPEC WHEN PFRMD 10/19/2016 Normal colonoscopy-family history-5 year follow-up NECK 07/17/2007 Anterior cervical discectomy allograft fusion on c-4,c-5,c-6 FAMILY HISTORY Problem Relation Age of Onset Colon Cancer Father Cancer Mother metastatic melanoma Social History Tobacco Use Smoking status: Never Passive exposure: Never Smokeless tobacco: Never Vaping Use Vaping status: Never Used Substance Use Topics Alcohol use: Yes Comment: socially, 3-4 beers/year Drug use: No Past medical history, appointments, medications, allergies reviewed. Pertinent Lab/Diagnostic Studies are reviewed and discussed today Current Outpatient Medications: ramelteon (ROZEREM) 8 mg tablet azelastine 0.1% nasal spray lisinopril-hydroCHLOROthia zide (ZESTORETIC) 10-12.5 mg per tablet tamsulosin (FLOMAX) 0.4 mg ergocalciferol 50,000 unit capsule (VITAMIN D2, DRISDOL) naproxen (NAPROSYN) 500 mg tablet polyethylene glycol 3350 (MIRALAX) 17 gram/dose powder aspirin, enteric coated (ASPIRIN, ENTERIC COATED) 81 mg EC tablet Review of Systems CONSTITUTIONAL: No fevers, chills night sweats, unintended weight loss CARDIOVASCULAR: No chest (more content not included)... Normal [facility] Jluis 06-26-2024 HUMA Telephone (AKURFL) -- HANZACHARY PATEL ([id number]) 1945 M Date Time Provider Department 06/26/24 JUAN BLANTON JR During your visit today, we recorded the following information about you: Mayi Stallings MA 06/26/2024 10:28 AM Signed Juan Blanton Jr., MD P [facility] Clinical Pool Psa [phone] Recommend fu with rad/onc Patient informed. He was told to call Dr. Huffman's office to set up a follow up but wanted to keep his appointment with Dr. Blanton on 07/24/24. Mayi Stallings MA Allergies As of Date: 06/26/2024 (No Known Allergies) Date Reviewed: 05/31/2024 Reviewed by: Gregory Casarez, RN - Fully Assessed Reason for Visit: Results [95] Prescriptions as of 06/26/2024 - ramelteon (ROZEREM) 8 mg tablet Take 1 tablet by mouth daily at bedtime. - azelastine 0.1% nasal spray Use 1 [place] in each nostril two times a day. - lisinopril-hydroCHLOROthia zide (ZESTORETIC) 10-12.5 mg per tablet Take 1 tablet by mouth once daily. - tamsulosin (FLOMAX) 0.4 mg Take 1 capsule by mouth daily at bedtime. - ergocalciferol 50,000 unit capsule (VITAMIN D2, DRISDOL) Take 1 capsule by mouth two times a week. TO BE TAKEN ORALLY DIRECTED. Take 1 tablet by mouth twice weekly [id number], then decrease to 1 tablet weekly. - naproxen (NAPROSYN) 500 mg tablet Take 1 tablet by mouth two times a day as needed (for pain/inflammation). Take with food. - polyethylene glycol 3350 (MIRALAX) 17 gram/dose powder Take 17 g by mouth once daily. Dissolve dose in 4 - 8 ounces of liquid and take as directed. - aspirin, enteric coated (ASPIRIN, ENTERIC COATED) 81 mg EC tablet Take 1 tablet by mouth once daily. Problem List As Of Date 06/26/2024 Noted Resolved Mixed hyperlipidemia [E78.2] 11/09/2005 Unspecified Asthma [J45.909] 11/09/2005 Personal history of other malignant neoplasm of*03/31/2006 Cervical Spondylosis without Myelopathy [M47.81* Family History of Malignant Neoplasm of Gastroi*05/16/2008 Primary Localized Osteoarthrosis, Shoulder Quin*05/16/2008 ACTINIC KERATOSIS (Premalignant AK) [L57.0] 05/17/2008 Other Seborrheic Keratosis [L82.1] 05/17/2008 09/15/2009 ACTINIC DAMAGE///CHR SOLAR SKIN DAMAGE NOS [L57*05/17/2008 09/15/2009 Rosacea [L71.9] 05/17/2008 Primary hypertension [I10] 09/15/2009 Obesity [E66.9] 09/15/2009 Irritated//Inflamed Seborrheic Keratosis [L82.0]09/23/2009 Solar lentigo [L81.4] 09/23/2009 Bladder Neck Obstruction [N32.0] 10/30/2009 Hypertrophy of prostate with urinary obstructio*05/28/2010 Arthritis of shoulder region, left, degenerativ*08/03/2011 Benign neoplasm of rectum and anal canal [D12.8*08/23/2011 Pain in joint, shoulder region [M25.519] 10/21/2011 Chronic knee pain [M25.569, G89.29] 02/28/2017 Preop examination [Z01.818] 11/21/2023 Elevated prostate specific antigen (PSA) [R97.2*11/21/2023 11/29/2023 Obesity, Class I, BMI 30-34.9 [E66.811] 11/21/2023 Prostate cancer (HCC) [C61] 11/29/2023 Encounter Status:Closed by MAYI STALLINGS on 06/26/24 Normal [facility] Basic Metabolic Profile (BMP )on 06-25-2024 BUN Normal 12-14 [facility] Comment on above: Result Comment: Canc elled via OM: Order cancelled - Patient discharged Performed By: #### L 100.0100, L500.4050, L501.2450, L503.6005 #### [facility] [place] [address], [address] BUN/CRE Normal 10-20 [facility] Comment on above: Result Comment: Canc elled via OM: Order cancelled - Patient discharged Performed By: #### L 100.0100, L500.4050, L501.2450, L503.6005 #### [facility] [address] [place], [address] CA,Total Normal 8.5-10.1 [facility] Comment on above: Result Comment: Canc elled via OM: Order cancelled - Patient discharged Performed By: #### L 100.0100, L500.4050, L501.2450, L503.6005 #### [facility] [address] [place], [address] CL Normal 98-107 [facility] Comment on above: Result Comment: Canc elled via OM: Order cancelled - Patient discharged Performed By: #### L 100.0100, L500.4050, L501.2450, L503.6005 #### [facility] [address] [place], [address] CO2 Normal 21.0-32.0 [facility] Comment on above: Result Comment: Canc elled via OM: Order cancelled - Patient discharged Performed By: #### L 100.0100, L500.4050, L501.2450, L503.6005 #### [facility] [address] [place], [address] CREAT,SERUM Normal 0.70-1.30 [facility] Comment on above: Result Comment: Canc elled via OM: Order cancelled - Patient discharged Performed By: #### L 100.0100, L500.4050, L501.2450, L503.6005 #### [facility] [address] [place], [address] EST GFR Normal >60 [facility] Comment on above: Result Comment: Canc elled via OM: Order cancelled - Patient discharged Performed By: #### L 100.0100, L500.4050, L501.2450, L503.6005 #### [facility] [address] [place], [address] EST GFR - AA Normal >60 [facility] Comment on above: Result Comment: Canc elled via OM: Order cancelled - Patient discharged Performed By: #### L 100.0100, L500.4050, L501.2450, L503.6005 #### [facility] [address] [place], [address] GAP Normal 5-15 [facility] Comment on above: Result Comment: Canc elled via OM: Order cancelled - Patient discharged Performed By: #### L 100.0100, L500.4050, L501.2450, L503.6005 #### [facility] [address] [place], [address] GLU Normal 74-106 [facility] Comment on above: Result Comment: Canc elled via OM: Order cancelled - Patient discharged Performed By: #### L 100.0100, L500.4050, L501.2450, L503.6005 #### [facility] [address] [place], [address] Potassium Normal 3.5-5.1 [facility] Comment on above: Result Comment: Canc elled via OM: Order cancelled - Patient discharged Performed By: #### L 100.0100, L500.4050, L501.2450, L503.6005 #### [facility] [address] [place], [address] Basic Metabolic Profile (BMP) Normal 136-145 [facility] Comment on above: Result Comment: Canc elled via OM: Order cancelled - Patient discharged Performed By: #### L 100.0100, L500.4050, L501.2450, L503.6005 #### [facility] [address] [place], [address] CBC W/Diff, Automatedon 01-2 Absolute Neut Normal 2.0-7.7 [facility] Comment on above: Result Comment: Canc elled via OM: Order cancelled - Patient discharged Performed By: #### L 100.0100, L500.4050, L501.2450, L503.6005 #### [facility] [address] [place], [address] HCT Normal 40-54 [facility] Comment on above: Result Comment: Canc elled via OM: Order cancelled - Patient discharged Performed By: #### L 100.0100, L500.4050, L501.2450, L503.6005 #### [facility] [address] [place], [address] HGB Normal 13.0-16.5 [facility] Comment on above: Result Comment: Canc elled via OM: Order cancelled - Patient discharged Performed By: #### L 100.0100, L500.4050, L501.2450, L503.6005 #### [facility] [address] [place], [address] MCH Normal 27.0-32.0 [facility] Comment on above: Result Comment: Canc elled via OM: Order cancelled - Patient discharged Performed By: #### L 100.0100, L500.4050, L501.2450, L503.6005 #### [facility] [address] [place], [address] MCHC Normal 32-36 [facility] Comment on above: Result Comment: Canc elled via OM: Order cancelled - Patient discharged Performed By: #### L 100.0100, L500.4050, L501.2450, L503.6005 #### [facility] [address] [place], [address] MCV Normal 80-94 [facility] Comment on above: Result Comment: Canc elled via OM: Order cancelled - Patient discharged Performed By: #### L 100.0100, L500.4050, L501.2450, L503.6005 #### [facility] [address] [place], [address] NEUT% Normal 47-70 [facility] Comment on above: Result Comment: Canc elled via OM: Order cancelled - Patient discharged Performed By: #### L 100.0100, L500.4050, L501.2450, L503.6005 #### [facility] [address] [place], [address] PLT Normal 150-450 [facility] Comment on above: Result Comment: Canc elled via OM: Order cancelled - Patient discharged Performed By: #### L 100.0100, L500.4050, L501.2450, L503.6005 #### [facility] [address] [place], [address] RBC Normal 4.6-6.2 [facility] Comment on above: Result Comment: Canc elled via OM: Order cancelled - Patient discharged Performed By: #### L 100.0100, L500.4050, L501.2450, L503.6005 #### [facility] [address] [place], [address] RDW CV Normal 11.6-14.6 [facility] Comment on above: Result Comment: Canc elled via OM: Order cancelled - Patient discharged Performed By: #### L 100.0100, L500.4050, L501.2450, L503.6005 #### [facility] [address] [place], [address] RDW SD Normal 35.1-43.9 [facility] Comment on above: Result Comment: Canc elled via OM: Order cancelled - Patient discharged Performed By: #### L 100.0100, L500.4050, L501.2450, L503.6005 #### [facility] [address] [place], [address] WBC Normal 4.4-11.0 [facility] Comment on above: Result Comment: Canc elled via OM: Order cancelled - Patient discharged Performed By: #### L 100.0100, L500.4050, L501.2450, L503.6005 #### [facility] [address] [place], [address] PSA [facility] 06-25-2024 Prostate specific Ag [Mass/Vol] 17.31 ng/mL High <2.60 [facility] Comment on above: Order Comment: Speci men Type: BLOOD SPECIMEN Ordering Facility: [facility] Address: [address] [place] [address] Result Comment: Wilmana angeline PSA test methodology used is the Electrochemiluminescence Immunoassay by [employer]. Total PSA values by differing methodologies cannot be interchanged. For an individual patient, the significance of a PSA level should be interpreted in a broad clinical context, including age, race, family history, digital rectal exam, prostate size, results of prior testing (prostate biopsy, free PSA, PCA3), and use of 5-alpha reductase inhibitors. Considering the high incidence of asymptomatic cancer in the general population that may not pose an ultimate risk to a patient, the decision to recommend urological evaluation or prostate biopsy should be individualized after consideration of all these factors. REFERENCE: Karin Murray M.D., M.P.H., Pedro Ingram M.D., Ph.D., Pelon Hyde M.D., Nithya Salmeron, M.P.H., Kami Smallwood ScFran. Effect of Verification Bias on Screening for Prostate Cancer by Measurement of Prostatic Specific Antigen. N Engl J Med 2003,349:335-42. Performed By: #### 2 857-1 #### [facility] CLIA [id number] [address] [place] [address] [place] Basic Metabolic Profile (BMP )on 06-24-2024 BUN Normal 7-18 [facility] Comment on above: Result Comment: Canc elled via OM: Order cancelled - Patient discharged Performed By: #### L 100.0100, L500.4050, L501.2450, L503.6005 #### [facility] [address] [place], [address] BUN/CRE Normal 10-20 [facility] Comment on above: Result Comment: Canc elled via OM: Order cancelled - Patient discharged Performed By: #### L 100.0100, L500.4050, L501.2450, L503.6005 #### [facility] [address] [place], [address] CA,Total Normal 8.5-10.1 [facility] Comment on above: Result Comment: Canc elled via OM: Order cancelled - Patient discharged Performed By: #### L 100.0100, L500.4050, L501.2450, L503.6005 #### [facility] [address] [place], [address] CL Normal 98-107 [facility] Comment on above: Result Comment: Canc elled via OM: Order cancelled - Patient discharged Performed By: #### L 100.0100, L500.4050, L501.2450, L503.6005 #### [facility] [address] [place], [address] CO2 Normal 21.0-32.0 [facility] Comment on above: Result Comment: Canc elled via OM: Order cancelled - Patient discharged Performed By: #### L 100.0100, L500.4050, L501.2450, L503.6005 #### [facility] [address] [place], [address] CREAT,SERUM Normal 0.70-1.30 [facility] Comment on above: Result Comment: Canc elled via OM: Order cancelled - Patient discharged Performed By: #### L 100.0100, L500.4050, L501.2450, L503.6005 #### [facility] [address] [place], [address] EST GFR Normal >60 [facility] Comment on above: Result Comment: Canc elled via OM: Order cancelled - Patient discharged Performed By: #### L 100.0100, L500.4050, L501.2450, L503.6005 #### [facility] [address] [place], [address] EST GFR - AA Normal >60 [facility] Comment on above: Result Comment: Canc elled via OM: Order cancelled - Patient discharged Performed By: #### L 100.0100, L500.4050, L501.2450, L503.6005 #### [facility] [address] [place], [address] GAP Normal 5-15 [facility] Comment on above: Result Comment: Canc elled via OM: Order cancelled - Patient discharged Performed By: #### L 100.0100, L500.4050, L501.2450, L503.6005 #### [facility] [address] [place], [address] GLU Normal 74-106 [facility] Comment on above: Result Comment: Canc elled via OM: Order cancelled - Patient discharged Performed By: #### L 100.0100, L500.4050, L501.2450, L503.6005 #### [facility] [address] [place], [address] Potassium Normal 3.5-5.1 [facility] Comment on above: Result Comment: Canc elled via OM: Order cancelled - Patient discharged Performed By: #### L 100.0100, L500.4050, L501.2450, L503.6005 #### [facility] [address] [place], [address] Basic Metabolic Profile (BMP) Normal 136-145 [facility] Comment on above: Result Comment: Canc elled via OM: Order cancelled - Patient discharged Performed By: #### L 100.0100, L500.4050, L501.2450, L503.6005 #### [facility] [address] [place], [address] CBC W/Diff, Automatedon - Absolute Neut Normal 2.0-7.7 [facility] Comment on above: Result Comment: Canc elled via OM: Order cancelled - Patient discharged Performed By: #### L 100.0100, L500.4050, L501.2450, L503.6005 #### [facility] [address] [place], [address] HCT Normal 40-54 [facility] Comment on above: Result Comment: Canc elled via OM: Order cancelled - Patient discharged Performed By: #### L 100.0100, L500.4050, L501.2450, L503.6005 #### [facility] [address] [place], [address] HGB Normal 13.0-16.5 [facility] Comment on above: Result Comment: Canc elled via OM: Order cancelled - Patient discharged Performed By: #### L 100.0100, L500.4050, L501.2450, L503.6005 #### [facility] [address] [place], [address] MCH Normal 27.0-32.0 [facility] Comment on above: Result Comment: Canc elled via OM: Order cancelled - Patient discharged Performed By: #### L 100.0100, L500.4050, L501.2450, L503.6005 #### [facility] [address] [place], [address] MCHC Normal 32-36 [facility] Comment on above: Result Comment: Canc elled via OM: Order cancelled - Patient discharged Performed By: #### L 100.0100, L500.4050, L501.2450, L503.6005 #### [facility] [address] [place], [address] MCV Normal 80-94 [facility] Comment on above: Result Comment: Canc elled via OM: Order cancelled - Patient discharged Performed By: #### L 100.0100, L500.4050, L501.2450, L503.6005 #### [facility] [address] [place], [address] NEUT% Normal 47-70 [facility] Comment on above: Result Comment: Canc elled via OM: Order cancelled - Patient discharged Performed By: #### L 100.0100, L500.4050, L501.2450, L503.6005 #### [facility] [address] [place], [address] PLT Normal 150-450 [facility] Comment on above: Result Comment: Canc elled via OM: Order cancelled - Patient discharged Performed By: #### L 100.0100, L500.4050, L501.2450, L503.6005 #### [facility] [address] [place], [address] RBC Normal 4.6-6.2 [facility] Comment on above: Result Comment: Canc elled via OM: Order cancelled - Patient discharged Performed By: #### L 100.0100, L500.4050, L501.2450, L503.6005 #### [facility] [address] [place], [address] RDW CV Normal 11.6-14.6 [facility] Comment on above: Result Comment: Canc elled via OM: Order cancelled - Patient discharged Performed By: #### L 100.0100, L500.4050, L501.2450, L503.6005 #### [facility] [address] [place], [address] RDW SD Normal 35.1-43.9 [facility] Comment on above: Result Comment: Canc elled via OM: Order cancelled - Patient discharged Performed By: #### L 100.0100, L500.4050, L501.2450, L503.6005 #### [facility] [address] [place], [address] WBC Normal 4.4-11.0 [facility] Comment on above: Result Comment: Canc elled via OM: Order cancelled - Patient discharged Performed By: #### L 100.0100, L500.4050, L501.2450, L503.6005 #### [facility] [address] [place], [address] Basic Metabolic Profile (BMP )on 06-23-2024 BUN Normal 7-18 [facility] Comment on above: Result Comment: Canc elled via OM: Order cancelled - Patient discharged Performed By: #### L 100.0100, L500.4050, L501.2450, L503.6005 #### [facility] [address] [place], [address] BUN/CRE Normal 10-20 [facility] Comment on above: Result Comment: Canc elled via OM: Order cancelled - Patient discharged Performed By: #### L 100.0100, L500.4050, L501.2450, L503.6005 #### [facility] [address] [place], [address] CA,Total Normal 8.5-10.1 [facility] Comment on above: Result Comment: Canc elled via OM: Order cancelled - Patient discharged Performed By: #### L 100.0100, L500.4050, L501.2450, L503.6005 #### [facility] [address] [place], [address] CL Normal 98-107 [facility] Comment on above: Result Comment: Canc elled via OM: Order cancelled - Patient discharged Performed By: #### L 100.0100, L500.4050, L501.2450, L503.6005 #### [facility] [address] [place], [address] CO2 Normal 21.0-32.0 [facility] Comment on above: Result Comment: Canc elled via OM: Order cancelled - Patient discharged Performed By: #### L 100.0100, L500.4050, L501.2450, L503.6005 #### [facility] [address] [place], [address] CREAT,SERUM Normal 0.70-1.30 [facility] Comment on above: Result Comment: Canc elled via OM: Order cancelled - Patient discharged Performed By: #### L 100.0100, L500.4050, L501.2450, L503.6005 #### [facility] [address] [place], [address] EST GFR Normal >60 [facility] Comment on above: Result Comment: Canc elled via OM: Order cancelled - Patient discharged Performed By: #### L 100.0100, L500.4050, L501.2450, L503.6005 #### [facility] [address] [place], [address] EST GFR - AA Normal >60 [facility] Comment on above: Result Comment: Canc elled via OM: Order cancelled - Patient discharged Performed By: #### L 100.0100, L500.4050, L501.2450, L503.6005 #### [facility] [address] [place], [address] GAP Normal 5-15 [facility] Comment on above: Result Comment: Canc elled via OM: Order cancelled - Patient discharged Performed By: #### L 100.0100, L500.4050, L501.2450, L503.6005 #### [facility] [address] [place], [address] GLU Normal 74-106 [facility] Comment on above: Result Comment: Canc elled via OM: Order cancelled - Patient discharged Performed By: #### L 100.0100, L500.4050, L501.2450, L503.6005 #### [facility] [address] [place], [address] Potassium Normal 3.5-5.1 [facility] Comment on above: Result Comment: Canc elled via OM: Order cancelled - Patient discharged Performed By: #### L 100.0100, L500.4050, L501.2450, L503.6005 #### [facility] [address] [place], [address] Basic Metabolic Profile (BMP) Normal 136-145 [facility] Comment on above: Result Comment: Canc elled via OM: Order cancelled - Patient discharged Performed By: #### L 100.0100, L500.4050, L501.2450, L503.6005 #### [facility] [address] [place], [address] CBC W/Diff, Automatedon -2 Absolute Neut Normal 2.0-7.7 [facility] Comment on above: Result Comment: Canc elled via OM: Order cancelled - Patient discharged Performed By: #### L 100.0100, L500.4050, L501.2450, L503.6005 #### [facility] [address] [place], [address] HCT Normal 40-54 [facility] Comment on above: Result Comment: Canc elled via OM: Order cancelled - Patient discharged Performed By: #### L 100.0100, L500.4050, L501.2450, L503.6005 #### [facility] [address] [place], [address] HGB Normal 13.0-16.5 [facility] Comment on above: Result Comment: Canc elled via OM: Order cancelled - Patient discharged Performed By: #### L 100.0100, L500.4050, L501.2450, L503.6005 #### [facility] [address] [place], [address] MCH Normal 27.0-32.0 [facility] Comment on above: Result Comment: Canc elled via OM: Order cancelled - Patient discharged Performed By: #### L 100.0100, L500.4050, L501.2450, L503.6005 #### [facility] [address] [place], [address] MCHC Normal 32-36 [facility] Comment on above: Result Comment: Canc elled via OM: Order cancelled - Patient discharged Performed By: #### L 100.0100, L500.4050, L501.2450, L503.6005 #### [facility] [address] [place], [address] MCV Normal 80-94 [facility] Comment on above: Result Comment: Canc elled via OM: Order cancelled - Patient discharged Performed By: #### L 100.0100, L500.4050, L501.2450, L503.6005 #### [facility] [address] [place], [address] NEUT% Normal 47-70 [facility] Comment on above: Result Comment: Canc elled via OM: Order cancelled - Patient discharged Performed By: #### L 100.0100, L500.4050, L501.2450, L503.6005 #### [facility] [address] [place], [address] PLT Normal 150-450 [facility] Comment on above: Result Comment: Canc elled via OM: Order cancelled - Patient discharged Performed By: #### L 100.0100, L500.4050, L501.2450, L503.6005 #### [facility] [address] [place], [address] RBC Normal 4.6-6.2 [facility] Comment on above: Result Comment: Canc elled via OM: Order cancelled - Patient discharged Performed By: #### L 100.0100, L500.4050, L501.2450, L503.6005 #### [facility] [address] [place], [address] RDW CV Normal 11.6-14.6 [facility] Comment on above: Result Comment: Canc elled via OM: Order cancelled - Patient discharged Performed By: #### L 100.0100, L500.4050, L501.2450, L503.6005 #### [facility] [address] [place], [address] RDW SD Normal 35.1-43.9 [facility] Comment on above: Result Comment: Canc elled via OM: Order cancelled - Patient discharged Performed By: #### L 100.0100, L500.4050, L501.2450, L503.6005 #### [facility] [address] [place], [address] WBC Normal 4.4-11.0 [facility] Comment on above: Result Comment: Canc elled via OM: Order cancelled - Patient discharged Performed By: #### L 100.0100, L500.4050, L501.2450, L503.6005 #### [facility] [address] [place], [address] Basic Metabolic Profile (BMP )on 06-22-2024 BUN Normal 7-18 [facility] Comment on above: Result Comment: Canc elled via OM: Order cancelled - Patient discharged Performed By: #### L 100.0100, L500.4050, L501.2450, L503.6005 #### [facility] [address] [place], [address] BUN/CRE Normal 10-20 [facility] Comment on above: Result Comment: Canc elled via OM: Order cancelled - Patient discharged Performed By: #### L 100.0100, L500.4050, L501.2450, L503.6005 #### [facility] [address] [place], [address] CA,Total Normal 8.5-10.1 [facility] Comment on above: Result Comment: Canc elled via OM: Order cancelled - Patient discharged Performed By: #### L 100.0100, L500.4050, L501.2450, L503.6005 #### [facility] [address] [place], [address] CL Normal 98-107 [facility] Comment on above: Result Comment: Canc elled via OM: Order cancelled - Patient discharged Performed By: #### L 100.0100, L500.4050, L501.2450, L503.6005 #### [facility] [address] [place], [address] CO2 Normal 21.0-32.0 [facility] Comment on above: Result Comment: Canc elled via OM: Order cancelled - Patient discharged Performed By: #### L 100.0100, L500.4050, L501.2450, L503.6005 #### [facility] [address] [place], [address] CREAT,SERUM Normal 0.70-1.30 [facility] Comment on above: Result Comment: Canc elled via OM: Order cancelled - Patient discharged Performed By: #### L 100.0100, L500.4050, L501.2450, L503.6005 #### [facility] [address] [place], [address] EST GFR Normal >60 [facility] Comment on above: Result Comment: Canc elled via OM: Order cancelled - Patient discharged Performed By: #### L 100.0100, L500.4050, L501.2450, L503.6005 #### [facility] [address] [place], [address] EST GFR - AA Normal >60 [facility] Comment on above: Result Comment: Canc elled via OM: Order cancelled - Patient discharged Performed By: #### L 100.0100, L500.4050, L501.2450, L503.6005 #### [facility] [address] [place], [address] GAP Normal 5-15 [facility] Comment on above: Result Comment: Canc elled via OM: Order cancelled - Patient discharged Performed By: #### L 100.0100, L500.4050, L501.2450, L503.6005 #### [facility] [address] [place], [address] GLU Normal 74-106 [facility] Comment on above: Result Comment: Canc elled via OM: Order cancelled - Patient discharged Performed By: #### L 100.0100, L500.4050, L501.2450, L503.6005 #### [facility] [address] [place], [address] Potassium Normal 3.5-5.1 [facility] Comment on above: Result Comment: Canc elled via OM: Order cancelled - Patient discharged Performed By: #### L 100.0100, L500.4050, L501.2450, L503.6005 #### [facility] [address] [place], [address] Basic Metabolic Profile (BMP) Normal 136-145 [facility] Comment on above: Result Comment: Canc elled via OM: Order cancelled - Patient discharged Performed By: #### L 100.0100, L500.4050, L501.2450, L503.6005 #### [facility] [address] [place], [address] CBC W/Diff, Automatedon - Absolute Neut Normal 2.0-7.7 [facility] Comment on above: Result Comment: Canc elled via OM: Order cancelled - Patient discharged Performed By: #### L 100.0100, L500.4050, L501.2450, L503.6005 #### [facility] [address] [place], [address] HCT Normal 40-54 [facility] Comment on above: Result Comment: Canc elled via OM: Order cancelled - Patient discharged Performed By: #### L 100.0100, L500.4050, L501.2450, L503.6005 #### [facility] [address] [place], [address] HGB Normal 13.0-16.5 [facility] Comment on above: Result Comment: Canc elled via OM: Order cancelled - Patient discharged Performed By: #### L 100.0100, L500.4050, L501.2450, L503.6005 #### [facility] [address] [place], [address] MCH Normal 27.0-32.0 [facility] Comment on above: Result Comment: Canc elled via OM: Order cancelled - Patient discharged Performed By: #### L 100.0100, L500.4050, L501.2450, L503.6005 #### [facility] [address] [place], [address] MCHC Normal 32-36 [facility] Comment on above: Result Comment: Canc elled via OM: Order cancelled - Patient discharged Performed By: #### L 100.0100, L500.4050, L501.2450, L503.6005 #### [facility] [address] [place], [address] MCV Normal 80-94 [facility] Comment on above: Result Comment: Canc elled via OM: Order cancelled - Patient discharged Performed By: #### L 100.0100, L500.4050, L501.2450, L503.6005 #### [facility] [address] [place], [address] NEUT% Normal 47-70 [facility] Comment on above: Result Comment: Canc elled via OM: Order cancelled - Patient discharged Performed By: #### L 100.0100, L500.4050, L501.2450, L503.6005 #### [facility] [address] [place], [address] PLT Normal 150-450 [facility] Comment on above: Result Comment: Canc elled via OM: Order cancelled - Patient discharged Performed By: #### L 100.0100, L500.4050, L501.2450, L503.6005 #### [facility] [address] [place], [address] RBC Normal 4.6-6.2 [facility] Comment on above: Result Comment: Canc elled via OM: Order cancelled - Patient discharged Performed By: #### L 100.0100, L500.4050, L501.2450, L503.6005 #### [facility] [address] [place], [address] RDW CV Normal 11.6-14.6 [facility] Comment on above: Result Comment: Canc elled via OM: Order cancelled - Patient discharged Performed By: #### L 100.0100, L500.4050, L501.2450, L503.6005 #### [facility] [address] [place], [address] RDW SD Normal 35.1-43.9 [facility] Comment on above: Result Comment: Canc elled via OM: Order cancelled - Patient discharged Performed By: #### L 100.0100, L500.4050, L501.2450, L503.6005 #### [facility] [address] [place], [address] WBC Normal 4.4-11.0 [facility] Comment on above: Result Comment: Canc elled via OM: Order cancelled - Patient discharged Performed By: #### L 100.0100, L500.4050, L501.2450, L503.6005 #### [facility] [address] [place], [address] Absolute neutrophil countOrd ered By: Itzel Randle on 06-21-2024 Neutrophils (Bld) [#/Vol] 5.2 10*3/uL 2.0-7.7 [facility] Basic Metabolic Profile (BMP )on 06-21-2024 BUN/CRE 22.6 RATIO High 10-20 [facility] Comment on above: Performed By: #### L 100.0100, L500.2500 #### [facility] [address] [place], [address] CA,Total 8.6 mg/dL Normal 8.5-10.1 [facility] Comment on above: Performed By: #### L 100.0100, L500.2500 #### [facility] [address] [place], [address] Chloride [Moles/Vol] 101 mmol/L Normal 98-107 [facility] Comment on above: Performed By: #### L 100.0100, L500.2500 #### [facility] [address] [place], [address] CO2 [Moles/Vol] 25.0 mmol/L Normal 21.0-32.0 [facility] Comment on above: Performed By: #### L 100.0100, L500.2500 #### [facility] [address] [place], [address] Creatinine [Mass/Vol] 0.97 mg/dL Normal 0.70-1.30 [facility] Comment on above: Result Comment: The validity of the calculated GFR GFRAA in patients over 70 years has not been determined. Clinical correlation is essential. Performed By: #### L 100.0100, L500.2500 #### [facility] [address] [place], [address] ECRCL 77.70 ml/min Normal [facility] Comment on above: Performed By: #### L 100.0100, L500.2500 #### [facility] [address] [place], [address] EST GFR - AA 95 mL/min Normal >60 [facility] Comment on above: Result Comment: Afri can Guinean GFR Calc Performed By: #### L 100.0100, L500.2500 #### [facility] [address] [place], [address] GAP 7 Normal 5-15 [facility] Comment on above: Performed By: #### L 100.0100, L500.2500 #### [facility] [address] [place], [address] GFR/1.73 sq M.predicted among non-blacks MDRD (S/P/Bld) [Vol rate/Area] 79 mL/min/{1.73_m2} Normal >60 [facility] Comment on above: Result Comment: Non- GFR Calc Performed By: #### L 100.0100, L500.2500 #### [facility] [address] [place], [address] Glucose [Mass/Vol] 108 mg/dL High 74-106 [facility] Comment on above: Result Comment: Fast ing Glucose result from 100 to 125 mg/dL suggests IMPAIRED HOMEOSTASIS per A.D.A. criteria. Performed By: #### L 100.0100, L500.2500 #### [facility] [address] [place], [address] Potassium [Moles/Vol] 4.0 mmol/L Normal 3.5-5.1 [facility] Comment on above: Performed By: #### L 100.0100, L500.2500 #### [facility] [address] [place], [address] Sodium [Moles/Vol] 133 mmol/L Low 136-145 [facility] Comment on above: Performed By: #### L 100.0100, L500.2500 #### [facility] [address] [place], [address] Urea nitrogen [Mass/Vol] 22 mg/dL High 7-18 [facility] Comment on above: Performed By: #### L 100.0100, L500.2500 #### [facility] [address] [place], [address] Basophil percentageOrdered B y: Itzel Randle on 06-21-2024 Basophils/100 WBC (Bld) 0.5 % 0-1 [facility] Blood urea nitrogen (BUN)/cr eatinine ratioOrdered By: Itzel Randle on 06-21-2024 Urea nitrogen/Creatinine [Mass ratio] 22.6 mg/mg High 10-20 [facility] CBC W/Diff, Automatedon 05-31 Absolute Lymph 1.72 X10 3/uL Normal 0.83-4.51 [facility] Comment on above: Performed By: #### L 100.0100, L500.2500 #### [facility] [address] [place], [address] Absolute Neut 5.2 X10 3/uL Normal 2.0-7.7 [facility] Comment on above: Performed By: #### L 100.0100, L500.2500 #### [facility] [address] [place], [address] Basophils/100 WBC (Bld) 0.5 % Normal 0-1 [facility] Comment on above: Performed By: #### L 100.0100, L500.2500 #### [facility] [address] [place], [address] Eosinophils/100 WBC (Bld) 3.8 % Normal 0-5 [facility] Comment on above: Performed By: #### L 100.0100, L500.2500 #### [facility] [address] [place], [address] Erythrocyte distribution width (RBC) [Ratio] 13.3 % Normal 11.6-14.6 [facility] Comment on above: Performed By: #### L 100.0100, L500.2500 #### [facility] [address] [place], [address] Hematocrit (Bld) [Volume fraction] 30.7 % Low 40-54 [facility] Comment on above: Performed By: #### L 100.0100, L500.2500 #### [facility] [address] [place], [address] Hemoglobin (Bld) [Mass/Vol] 10.3 g/dL Low 13.0-16.5 [facility] Comment on above: Performed By: #### L 100.0100, L500.2500 #### [facility] [address] [place], [address] IG% 0.700 Normal 0.0-0.9 [facility] Comment on above: Result Comment: IG% - Immature Granulocytes (promyelocytes, myelocytes and metamyelocytes) > 1% indicates that a LEFT SHIFT is Present. Performed By: #### L 100.0100, L500.2500 #### [facility] [address] [place], [address] Lymphocytes/100 WBC (Bld) 20.8 % Normal 19-41 [facility] Comment on above: Performed By: #### L 100.0100, L500.2500 #### [facility] [address] [place], [place], [address] MCH (RBC) [Entitic mass] 34.7 pg High 27.0-32.0 [facility] Comment on above: Performed By: #### L 100.0100, L500.2500 #### [facility] [address] [place], [address] MCHC (RBC) [Mass/Vol] 33.6 g/dL Normal 32-36 [facility] Comment on above: Performed By: #### L 100.0100, L500.2500 #### [facility] [address] [place], [address] MCV (RBC) [Entitic vol] 103.4 fL High 80-94 [facility] Comment on above: Performed By: #### L 100.0100, L500.2500 #### [facility] [address] [place], [address] Monocytes/100 WBC (Bld) 10.9 % High 0-10 [facility] Comment on above: Performed By: #### L 100.0100, L500.2500 #### [facility] [address] [place], [address] Neutrophils/100 WBC (Bld) 63.3 % Normal 47-70 [facility] Comment on above: Performed By: #### L 100.0100, L500.2500 #### [facility] [address] [place], [address] Nucleated RBC (Bld) [#/Vol] 0 10*3/uL Normal 0-5 [facility] Comment on above: Performed By: #### L 100.0100, L500.2500 #### [facility] [address] [place], [address] Platelet mean volume (Bld) [Entitic vol] 9.4 fL Normal 6.2-12.0 [facility] Comment on above: Performed By: #### L 100.0100, L500.2500 #### [facility] [address] [place], [address] Platelets (Bld) [#/Vol] 158 10*3/uL Normal 150-450 [facility] Comment on above: Performed By: #### L 100.0100, L500.2500 #### [facility] [address] [place], [address] RBC (Bld) [#/Vol] 2.97 10*6/uL Low 4.6-6.[address] [facility] Comment on above: Performed By: #### L 100.0100, L500.2500 #### [facility] [address] [place], [address] RDW SD 51.0 fl High 35.1-43.9 [facility] Comment on above: Performed By: #### L 100.0100, L500.2500 #### [facility] [address] [place], [address] WBC (Bld) [#/Vol] 8.3 10*3/uL Normal 4.4-11.0 [facility] Comment on above: Performed By: #### L 100.0100, L500.2500 #### [facility] [address] [place], [address] Carbon dioxide measurementOr dered By: Itzel Randle on 06-21-2024 CO2 [Moles/Vol] 25.0 mmol/L 21.0-32.0 [facility] Chloride measurementOrdered By: Itzel Randle on 06-21-2024 Chloride [Moles/Vol] 101 mmol/L 98-107 [facility] Discharge Instructionon 05-31 Discharge Instruction [facility] Medical Records Department [address] [place] [address] Instructions for Home/Discharge Instructions 06/21/24 1422 MR#: [id number] Acct: [id number] Name: ZACHARY SHORT Rep #: [id number] : 1945 78 From: Itzel Randle MD PCP: Dr. Ailin Pierson MD Status:ADM VASU Discharge Instructions Diet Discharge Diet: Low fat / Low cholesterol DC O2, CPAP, BIPAP needs Home O2 Discharge instructions: No Dressing / Incision Discharge Activity: Return to Normal Activity Weight Bearing Status: Weight bearing as tolerated Dressing / Incision Call your doctor if you observe: Fever of 101 or Higher, Shortness of breath, Dizziness, Swelling in the ankles, Chest pain and Uncontrolled pain Follow Up Care Test Results: Test results from this visit will be discussed in further detail at your follow-up appointment, if applicable. Discharge Plan Admission Admit Date/Time: 06/19/24 11:44 Primary Reason for Your Visit: mechanical fall, rib and lumbar spine fracutres Attending Provider: Itzel Randle Primary Care Provider: Ailin Pierson Instructions Patient Instructions: ED Mechanical Fall, ED Rib Fracture Additional Instructions / Restrictions: to see PCP within 2-3 days to check CBC to monitor Hb level. Discharge Orders/Prescriptions Prescriptions: New lidocaine 5 % Adhesive Patch,Medicated 1 patch topical DAILY Qty: 30 0RF Protocol: *Topical Application Instructions APPLICATION INSTRUCTIONS: apply to left flank over broken ribs Rx Instructions: apply over left flank and lower back oxycodone 5 mg Tablet 5 mg PO Q4H PRN PRN (Reason: Pain Score 4-10) 5 Days Qty: 30 0RF Continued lisinopril-hydrochlorothia zide 10-12.5 mg tablet 1 tab PO DAILY polyethylene glycol 3350 17 gram/dose powder 17 g PO DAILY PRN (Reason: bowels) azelastine 137 mcg (0.1 %) spray,non-aerosol 1 spray INTRANASAL DAILY ergocalciferol (vitamin D2) 1,250 mcg (50,000 unit) capsule 1,250 mcg PO .weekly Rx Instructions: takes on Saturadays tamsulosin 0.4 mg Capsule 0.8 mg PO QHS Qty: 60 0RF Patient Comments: CHECK DOSAGE CHANGE Discontinued aspirin 81 mg capsule 81 mg PO DAILY naproxen 500 mg tablet 500 mg PO BID PRN PRN (Reason: pain) Referrals / Follow Up: Ailin Pierson MD [Primary Care Provider] - Within 1 Week Disposition Disposition (needs filled in before D/C Order can be placed): Home, Self Care 06/21/24 1423 Itzel Randle MD CC: Dr. Ailin Pierson MD Signed Normal [facility] Eosinophil percentageOrdered By: Itzel Randle on 06-21-2024 Eosinophils/100 WBC (Bld) 3.8 % 0-5 [facility] Erythrocyte distribution wid th (RBC) [Ratio]Ordered By: Itzel Randle on 06-21-2024 Erythrocyte distribution width (RBC) [Entitic vol] 51.0 fL High 35.1-43.9 [facility] Erythrocyte distribution wid th ratioOrdered By: Itzel Randle on 06-21-2024 Erythrocyte distribution width (RBC) [Ratio] 13.3 % 11.6-14.6 [facility] Estimated glomerular filtrat ion rate (GFR) AmericanOrdered By: Itzel Randle on 06-21-2024 Estimated GFR (MDRD) Amer 95 mL/min >60 [facility] Comment on above: GFR Calc Estimation of creatinine lopez aranceOrdered By: Itzel Randle on 06-21-2024 Estimated Creatinine Clearance Calc 77.70 ml/min [facility] Glomerular filtration rate ( GFR) estimationOrdered By: Itzel Randle on 06-21-2024 Estimated GFR (MDRD) Non-Af Amer 79 mL/min >60 [facility] Comment on above: Non- GFR Calc Glucose measurementOrdered B y: Itzel Randle on 06-21-2024 Glucose [Mass/Vol] 108 mg/dL High 74-106 [facility] Comment on above: Fasting Glucose resu lt from 100 to 125 mg/dL suggests IMPAIRED HOMEOSTASIS per A.D.A. criteria. Hematocrit Auto (Bld) [Volum e fraction]Ordered By: Itzel Randle on 06-21-2024 Hematocrit (Bld) [Volume fraction] 30.7 % Low 40-54 [facility] Hemoglobin measurementOrdere d By: Itzel Randle on 06-21-2024 Hemoglobin (Bld) [Mass/Vol] 10.3 g/dL Low 13.0-16.5 [facility] Immature granulocytes/100 WB C Auto (Bld)Ordered By: Itzel Randle on 06-21-2024 Immature granulocytes/100 WBC (Bld) 0.700 % 0.0-0.9 [facility] Comment on above: IG% - Immature Granu locytes (promyelocytes, myelocytes and metamyelocytes) > 1% indicates that a LEFT SHIFT is Present. Lymphocytes Auto (Unsp spec) [#/Vol]Ordered By: Itzel Randle on 06-21-2024 Lymphocytes (Bld) [#/Vol] 1.72 10*3/uL 0.83-4.51 [facility] Lymphocytes/100 WBC Auto (Un sp spec)Ordered By: Itzel Randle on 06-21-2024 Lymphocytes/100 WBC (Bld) 20.8 % 19-41 [facility] MCV (mean corpuscular volume ) determinationOrdered By: Iztel Randle on 06-21-2024 MCV (RBC) [Entitic vol] 103.4 fL High 80-94 [facility] Mean corpuscular hemoglobin (MCH) determinationOrdered By: Itzel Randle on 06-21-2024 MCH (RBC) [Entitic mass] 34.7 pg High 27.0-32.0 [facility] Mean corpuscular hemoglobin concentration (MCHC) determinationOrdered By: Itzel Randle on 06-21-2024 MCHC (RBC) [Mass/Vol] 33.6 g/dL 32-36 [facility] Mean platelet volume determi nationOrdered By: Itzel Randle on 06-21-2024 Platelet mean volume (Bld) [Entitic vol] 9.4 fL 6.2-12.0 [facility] Monocyte percentageOrdered B y: Itzel Randle on 06-21-2024 Monocytes/100 WBC (Bld) 10.9 % High 0-10 [facility] Neutrophil percentageOrdered By: Itzelgrant Randle on 06-21-2024 Neutrophils/100 WBC (Bld) 63.3 % 47-70 [facility] Nucleated red blood cell per centageOrdered By: Itzel Randle on 06-21-2024 Nucleated RBC/100 WBC (Bld) [Ratio] 0 % 0-5 [facility] Platelet countOrdered By: Na na Razia on 06-21-2024 Platelets (Bld) [#/Vol] 158 10*3/uL 150-450 [facility] Potassium measurementOrdered By: Itzel Randle on 06-21-2024 Potassium [Moles/Vol] 4.0 mmol/L 3.5-5.1 [facility] RBC Auto (Bld) [#/Vol]Ordere d By: Itzel Randle on 06-21-2024 RBC (Bld) [#/Vol] 2.97 10*6/uL Low 4.6-6.[address] [facility] Serum anion gap measurementO rdered By: Itzel Randle on 06-21-2024 Anion gap [Moles/Vol] 7 mmol/L 5-15 [facility] Serum or plasma calcium valentin urement (mass/volume)Ordered By: Itzel Randle on 06-21-2024 Calcium [Mass/Vol] 8.6 mg/dL 8.5-10.1 [facility] Serum or plasma creatinine m easurement (mass/volume)Ordered By: Itzel Randle on 06-21-2024 Creatinine [Mass/Vol] 0.97 mg/dL 0.70-1.30 [facility] Comment on above: The validity of the calculated GFR & GFRAA in patients over 70 years has not been determined. Clinical correlation is essential. Serum or plasma urea nitroge n measurement (mass/volume)Ordered By: Itzel Randle on 06-21-2024 Urea nitrogen [Mass/Vol] 22 mg/dL High 7-18 [facility] Sodium levelOrdered By: Itzel Randle on 06-21-2024 Sodium [Moles/Vol] 133 mmol/L Low 136-145 [facility] White blood cell (WBC) count Ordered By: Itzel Randle on 06-21-2024 WBC (Bld) [#/Vol] 8.3 10*3/uL 4.4-11.0 [facility] Basic Metabolic Profile (BMP )on 06-20-2024 BUN/CRE 16.3 RATIO Normal 10-20 [facility] Comment on above: Performed By: #### L 100.0100, L500.4050, L501.2450, L503.6005 #### [facility] [address] [place], [address] CA,Total 8.5 mg/dL Normal 8.5-10.1 [facility] Comment on above: Performed By: #### L 100.0100, L500.4050, L501.2450, L503.6005 #### [facility] [address] [place], [address] Chloride [Moles/Vol] 102 mmol/L Normal 98-107 [facility] Comment on above: Performed By: #### L 100.0100, L500.4050, L501.2450, L503.6005 #### [facility] [address] [place], [address] CO2 [Moles/Vol] 28.0 mmol/L Normal 21.0-32.0 [facility] Comment on above: Performed By: #### L 100.0100, L500.4050, L501.2450, L503.6005 #### [facility] [address] [place], [address] Creatinine [Mass/Vol] 1.04 mg/dL Normal 0.70-1.30 [facility] Comment on above: Result Comment: The validity of the calculated GFR GFRAA in patients over 70 years has not been determined. Clinical correlation is essential. Performed By: #### L 100.0100, L500.4050, L501.2450, L503.6005 #### [facility] [address] [place], [address] ECRCL 72.47 ml/min Normal [facility] Comment on above: Performed By: #### L 100.0100, L500.4050, L501.2450, L503.6005 #### [facility] [address] [place], [address] EST GFR - AA 88 mL/min Normal >60 [facility] Comment on above: Result Comment: Afri can Guinean GFR Calc Performed By: #### L 100.0100, L500.4050, L501.2450, L503.6005 #### [facility] [address] [place], [address] GAP 5 Normal 5-15 [facility] Comment on above: Performed By: #### L 100.0100, L500.4050, L501.2450, L503.6005 #### [facility] [address] [place], [address] GFR/1.73 sq M.predicted among non-blacks MDRD (S/P/Bld) [Vol rate/Area] 73 mL/min/{1.73_m2} Normal >60 [facility] Comment on above: Result Comment: Non- GFR Calc Performed By: #### L 100.0100, L500.4050, L501.2450, L503.6005 #### [facility] [address] [place], [address] Glucose [Mass/Vol] 116 mg/dL High 74-106 [facility] Comment on above: Result Comment: Fast ing Glucose result from 100 to 125 mg/dL suggests IMPAIRED HOMEOSTASIS per A.D.A. criteria. Performed By: #### L 100.0100, L500.4050, L501.2450, L503.6005 #### [facility] [address] [place], [address] Potassium [Moles/Vol] 4.8 mmol/L Normal 3.5-5.1 [facility] Comment on above: Performed By: #### L 100.0100, L500.4050, L501.2450, L503.6005 #### [facility] [address] [place], [address] Sodium [Moles/Vol] 135 mmol/L Low 136-145 [facility] Comment on above: Performed By: #### L 100.0100, L500.4050, L501.2450, L503.6005 #### [facility] [address] [place], [address] Urea nitrogen [Mass/Vol] 17 mg/dL Normal 7-18 [facility] Comment on above: Performed By: #### L 100.0100, L500.4050, L501.2450, L503.6005 #### [facility] [address] [place], [address] CBC W/Diff, Automatedon 05-31 Absolute Lymph 1.11 X10 3/uL Normal 0.83-4.51 [facility] Comment on above: Performed By: #### L 100.0100, L500.4050, L501.2450, L503.6005 #### [facility] [address] [place], [address] Absolute Neut 7.1 X10 3/uL Normal 2.0-7.7 [facility] Comment on above: Performed By: #### L 100.0100, L500.4050, L501.2450, L503.6005 #### [facility] [address] [place], [address] Basophils/100 WBC (Bld) 0.7 % Normal 0-1 [facility] Comment on above: Performed By: #### L 100.0100, L500.4050, L501.2450, L503.6005 #### [facility] [address] [place], [address] Eosinophils/100 WBC (Bld) 2.0 % Normal 0-5 [facility] Comment on above: Performed By: #### L 100.0100, L500.4050, L501.2450, L503.6005 #### [facility] [address] [place], [address] Erythrocyte distribution width (RBC) [Ratio] 13.5 % Normal 11.6-14.6 [facility] Comment on above: Performed By: #### L 100.0100, L500.4050, L501.2450, L503.6005 #### [facility] [address] [place], [address] Hematocrit (Bld) [Volume fraction] 33.3 % Low 40-54 [facility] Comment on above: Performed By: #### L 100.0100, L500.4050, L501.2450, L503.6005 #### [facility] [address] [place], [address] Hemoglobin (Bld) [Mass/Vol] 11.0 g/dL Low 13.0-16.5 [facility] Comment on above: Performed By: #### L 100.0100, L500.4050, L501.2450, L503.6005 #### [facility] [address] [place], [address] IG% 0.500 Normal 0.0-0.9 [facility] Comment on above: Result Comment: IG% - Immature Granulocytes (promyelocytes, myelocytes and metamyelocytes) > 1% indicates that a LEFT SHIFT is Present. Performed By: #### L 100.0100, L500.4050, L501.2450, L503.6005 #### [facility] [address] [place], [address] Lymphocytes/100 WBC (Bld) 11.8 % Low 19-41 [facility] Comment on above: Performed By: #### L 100.0100, L500.4050, L501.2450, L503.6005 #### [facility] [address] [place], [address] MCH (RBC) [Entitic mass] 34.7 pg High 27.0-32.0 [facility] Comment on above: Performed By: #### L 100.0100, L500.4050, L501.2450, L503.6005 #### [facility] [address] [place], [address] MCHC (RBC) [Mass/Vol] 33.0 g/dL Normal 32-36 [facility] Comment on above: Performed By: #### L 100.0100, L500.4050, L501.2450, L503.6005 #### [facility] [address] [place], [address] MCV (RBC) [Entitic vol] 105.0 fL High 80-94 [facility] Comment on above: Performed By: #### L 100.0100, L500.4050, L501.2450, L503.6005 #### [facility] [address] [place], [address] Monocytes/100 WBC (Bld) 9.7 % Normal 0-10 [facility] Comment on above: Performed By: #### L 100.0100, L500.4050, L501.2450, L503.6005 #### [facility] [address] [place], [address] Neutrophils/100 WBC (Bld) 75.3 % High 47-70 [facility] Comment on above: Performed By: #### L 100.0100, L500.4050, L501.2450, L503.6005 #### [facility] [address] [place], [address] Nucleated RBC (Bld) [#/Vol] 0 10*3/uL Normal 0-5 [facility] Comment on above: Performed By: #### L 100.0100, L500.4050, L501.2450, L503.6005 #### [facility] [address] [place], [address] Platelet mean volume (Bld) [Entitic vol] 9.4 fL Normal 6.2-12.0 [facility] Comment on above: Performed By: #### L 100.0100, L500.4050, L501.2450, L503.6005 #### [facility] [address] [place], [address] Platelets (Bld) [#/Vol] 157 10*3/uL Normal 150-450 [facility] Comment on above: Performed By: #### L 100.0100, L500.4050, L501.2450, L503.6005 #### [facility] [address] [place], [address] RBC (Bld) [#/Vol] 3.17 10*6/uL Low 4.6-6.[address] [facility] Comment on above: Performed By: #### L 100.0100, L500.4050, L501.2450, L503.6005 #### [facility] [address] [place], [address] RDW SD 52.2 fl High 35.1-43.9 [facility] Comment on above: Performed By: #### L 100.0100, L500.4050, L501.2450, L503.6005 #### [facility] [address] [place], [address] WBC (Bld) [#/Vol] 9.4 10*3/uL Normal 4.4-11.0 [facility] Comment on above: Performed By: #### L 100.0100, L500.4050, L501.2450, L503.6005 #### [facility] [address] [place], [address] Basic Metabolic Profile (BMP )on 06-19-2024 BUN/CRE 15.8 RATIO Normal 10-20 [facility] Comment on above: Performed By: #### L 500.2500, L100.0100 ####[facility] [address] [place], [address] CA,Total 9.1 mg/dL Normal 8.5-10.1 [facility] Comment on above: Performed By: #### L 500.2500, L100.0100 ####[facility] [address] [place], [address] Chloride [Moles/Vol] 101 mmol/L Normal 98-107 [facility] Comment on above: Performed By: #### L 500.2500, L100.0100 ####[facility] [address] [place], [address] CO2 [Moles/Vol] 25.0 mmol/L Normal 21.0-32.0 [facility] Comment on above: Performed By: #### L 500.2500, L100.0100 ####[facility] [address] [place], [address] Creatinine [Mass/Vol] 1.14 mg/dL Normal 0.70-1.30 [facility] Comment on above: Result Comment: The validity of the calculated GFR GFRAA in patients over 70 years has not been determined. Clinical correlation is essential. Performed By: #### L 500.2500, L100.0100 ####[facility] [address] [place], [address] ECRCL 66.70 ml/min Normal [facility] Comment on above: Performed By: #### L 500.2500, L100.0100 ####[facility] [address] [place], [address] EST GFR - AA 79 mL/min Normal >60 [facility] Comment on above: Result Comment: Afri can Guine[place] GFR Calc Performed By: #### L 500.2500, L100.0100 ####[facility] [address] [place], [address] GAP 9 Normal 5-15 [facility] Comment on above: Performed By: #### L 500.2500, L100.0100 ####[facility] [address] [place], [address] GFR/1.73 sq M.predicted among non-blacks MDRD (S/P/Bld) [Vol rate/Area] 66 mL/min/{1.73_m2} Normal >60 [facility] Comment on above: Result Comment: Non- GFR Calc Performed By: #### L 500.2500, L100.0100 ####[facility] [address] [place], [address] Glucose [Mass/Vol] 109 mg/dL High 74-106 [facility] Comment on above: Result Comment: Fast ing Glucose result from 100 to 125 mg/dL suggests IMPAIRED HOMEOSTASIS per A.D.A. criteria. Performed By: #### L 500.2500, L100.0100 ####[facility] [address] [place], [address] Potassium [Moles/Vol] 4.0 mmol/L Normal 3.5-5.1 [facility] Comment on above: Performed By: #### L 500.2500, L100.0100 ####[facility] [address] [place], [address] Sodium [Moles/Vol] 136 mmol/L Normal 136-145 [facility] Comment on above: Performed By: #### L 500.2500, L100.0100 ####[facility] [address] [place], [address] Urea nitrogen [Mass/Vol] 18 mg/dL Normal 7-18 [facility] Comment on above: Performed By: #### L 500.2500, L100.0100 ####[facility] [address] [place], [address] CBC W/Diff, Automatedon 05-31 Absolute Lymph 1.54 X10 3/uL Normal 0.83-4.51 [facility] Comment on above: Performed By: #### L 500.2500, L100.0100 ####[facility] [address] [place], [address] Absolute Neut 7.6 X10 3/uL Normal 2.0-7.7 [facility] Comment on above: Performed By: #### L 500.2500, L100.0100 ####[facility] [address] [place], [address] Basophils/100 WBC (Bld) 0.8 % Normal 0-1 [facility] Comment on above: Performed By: #### L 500.2500, L100.0100 ####[facility] [address] [place], [address] Eosinophils/100 WBC (Bld) 1.9 % Normal 0-5 [facility] Comment on above: Performed By: #### L 500.2500, L100.0100 ####[facility] [address] [place], [address] Erythrocyte distribution width (RBC) [Ratio] 13.4 % Normal 11.6-14.6 [facility] Comment on above: Performed By: #### L 500.2500, L100.0100 ####[facility] [address] [place], [address] Hematocrit (Bld) [Volume fraction] 36.2 % Low 40-54 [facility] Comment on above: Performed By: #### L 500.2500, L100.0100 ####[facility] [address] [place], [address] Hemoglobin (Bld) [Mass/Vol] 12.6 g/dL Low 13.0-16.5 [facility] Comment on above: Performed By: #### L 500.2500, L100.0100 ####[facility] [address] [place], [address] IG% 0.800 Normal 0.0-0.9 [facility] Comment on above: Result Comment: IG% - Immature Granulocytes (promyelocytes, myelocytes and metamyelocytes) > 1% indicates that a LEFT SHIFT is Present. Performed By: #### L 500.2500, L100.0100 ####[facility] [address] [place], [address] Lymphocytes/100 WBC (Bld) 14.5 % Low 19-41 [facility] Comment on above: Performed By: #### L 500.2500, L100.0100 ####[facility] [address] [place], [address] MCH (RBC) [Entitic mass] 35.6 pg High 27.0-32.0 [facility] Comment on above: Performed By: #### L 500.2500, L100.0100 ####[facility] [address] [place], [address] MCHC (RBC) [Mass/Vol] 34.8 g/dL Normal 32-36 [facility] Comment on above: Performed By: #### L 500.2500, L100.0100 ####[facility] [address] [place], [address] MCV (RBC) [Entitic vol] 102.3 fL High 80-94 [facility] Comment on above: Performed By: #### L 500.2500, L100.0100 ####[facility] [address] [place], [address] Monocytes/100 WBC (Bld) 10.1 % High 0-10 [facility] Comment on above: Performed By: #### L 500.2500, L100.0100 ####[facility] [address] [place], [address] Neutrophils/100 WBC (Bld) 71.9 % High 47-70 [facility] Comment on above: Performed By: #### L 500.2500, L100.0100 ####[facility] [address] [place], [address] Nucleated RBC (Bld) [#/Vol] 0 10*3/uL Normal 0-5 [facility] Comment on above: Performed By: #### L 500.2500, L100.0100 ####[facility] [address] [place], [address] Platelet mean volume (Bld) [Entitic vol] 9.2 fL Normal 6.2-12.0 [facility] Comment on above: Performed By: #### L 500.2500, L100.0100 ####[facility] [address] [place], [address] Platelets (Bld) [#/Vol] 160 10*3/uL Normal 150-450 [facility] Comment on above: Performed By: #### L 500.2500, L100.0100 ####[facility] [address] [place], [address] RBC (Bld) [#/Vol] 3.54 10*6/uL Low 4.6-6.[address] [facility] Comment on above: Performed By: #### L 500.2500, L100.0100 ####[facility] [address] [place], [address] RDW SD 50.6 fl High 35.1-43.9 [facility] Comment on above: Performed By: #### L 500.2500, L100.0100 ####[facility] [address] [place], [address] WBC (Bld) [#/Vol] 10.6 10*3/uL Normal 4.4-11.[address] [facility] Comment on above: Performed By: #### L 500.2500, L100.0100 ####[facility] [address] [place], [address] CT Chest, Abd, Pelvis WO Con ton 06-19-2024 CT Chest, Abd, Pelvis WO Cont [facility] Imaging Services [address] [place] [address] CT Chest, Abd, Pelvis WO Cont MR#: [id number] Acct: [id number] Name: ZACHARY SHORT Rep #: [id number] : 1945 M 78 From: Abraham jurado MD PCP: Dr. Ailin Pierson MD Status: [facility] Study: CT Chest, Abd, Pelvis WO Cont Date of Exam: Exam# [id number] Ordering Dr: Faustino Starr MD [id number] STUDY: CT CHEST, ABDOMEN T PELVIS WITHOUT CONTRAST REASON FOR EXAM: Male, 78 years old. Left rib pain posterior after falling RADIATION DOSAGE (If Supplied By Facility): CTDIvol = ( 27.15 ) mGy, DLP = ( 2654.34 ) mGycm TECHNIQUE: Transaxial imaging was performed without the administration of intravenous contrast material. Multiplanar coronal and sagittal images were reformatted. Individualized dose optimization techniques were used for this CT. COMPARISON: No relevant priors. FINDINGS: CHEST Minimal scarring seen in the posterior medial segment of the right lower lobe. There is no demonstrated pleural abnormality. There are calcifications of the coronary arteries. Normal mediastinum. Normal hilar regions. Normal unenhanced pulmonary arteries. There is atherosclerotic calcification of the aortic arch. There are multi-level degenerative changes of the thoracic spine. Degenerative changes of both shoulder joints. Small hiatal hernia. ABDOMEN The visualized lung bases are unremarkable. The visualized portions of the heart are within normal limits. Normal liver. Normal gallbladder and extrahepatic biliary system. Normal spleen. Normal pancreas. Normal bilateral adrenal glands. Normal right kidney. There is a 2.4 cm x 1.8 cm hypodense nodule in the posterior medial aspect of the lower pole of the left kidney. This may represent a cyst although correlation with ultrasound is recommended. There is a small hiatal hernia. Normal small intestine. Normal colon. The appendix is visualized and appears normal. There is diffuse atherosclerotic calcification of the abdominal aorta and its major visceral branches, without a demonstrated aneurysm. Normal inferior vena cava. Normal retroperitoneum. There is evidence of increased markings within the subcutaneous fat overlying the posterior left flank extending into the lower posterior pelvic fat. This may represent changes secondary to the patient''s history of a recent fall There are diffuse degenerative changes of the visualized lumbar spine. PELVIS There is evidence of diffuse bilateral wall thickening. There is heterogeneous enlargement of the prostate measuring 4.6 cm x 5.9 cm. This causes indentation of the bladder base. Central prostatic calcification. Small fat-containing inguinal lymph nodes. There is no pelvic fluid. There is no pelvic lymphadenopathy or mass lesion. There is diffuse atherosclerotic calcification of the pelvic arteries. CT/CT Chest, Abd, Pelvis WO Cont IMPRESSION: Minimal scarring in the posterior segment of the right lower lobe. 2.4 cm x 1.8 cm hypodense nodule in the posteromedial aspect of the lower pole of the left kidney suggestive of a small cyst although correlation with ultrasound is recommended. Findings suggestive of a edematous changes overlying the subcutaneous fat in the posterior left flank extending to the lower posterior pelvic fat suggestive of post fall contusion. Electronically Signed: Abraham Weiss MD at 10:35 EST , CC: Dr. Faustino Starr MD; Dr. Ailin Pierson MD Slitter Cut Off Operator: Signed Normal [facility] Emergency Department Summary on 06-19-2024 Emergency Department Summary [facility] Medical Records Department [address] [place] [address] Emergency Department Summary 06/19/24 MR#: [id number] Acct: [id number] Name: ZACHARY SHORT Rep #: [id number] : 1945 78 From: Faustino Starr MD PCP: Dr. Ailin Pierson MD Status:REG ER Location: ED HPI History of Present Illness Chief Complaint: Back Narrative Narrative: 78-year-old male presents with his son status post fall yesterday evening. He states he was in his carpeted bathroom, brushing his teeth when he dropped his toothbrush. He leaned forward to pick it up, and started falling. He turned his head so he did not hit the toilet. He hit the left side of his back and his ribs. There was no loss of consciousness. He does not take blood thinners. However, he complains of large amount of bruising to his left low back. He does have mild midline back pain as well. While he has bruising and tenderness on his left anterior to lateral ribs, he denies any shortness of breath or difficulty breathing. He is also concerned about his kidneys as he has had problems with having to self catheterize once a day. He denies any blood in his urine, but states when he cath himself there is only a small amount of urine contained in his bladder. [facility] Medical History Acute on chronic urinary retention Leukocytosis Closed fracture of right elbow Weakness Acute UTI Fever Rhabdomyolysis Fall Right elbow pain Kidney stones Non-smoker Asthma Hypertension Home Medications ???Medication ???Instructions ???Recorded ???Last Taken ???Type aspirin 81 mg capsule 81 mg PO DAILY prevention 05/22/24 Unknown History azelastine 137 mcg (0.1 %) nasal 1 spray intranasal DAILY nasal 05/22/24 Unknown History spray ergocalciferol (vitamin D2) 1,250 1,250 mcg PO .weekly bones 05/22/24 Unknown History mcg (50,000 unit) capsule lisinopril 10 1 tab PO DAILY bp 05/22/24 Unknown History mg-hydrochlorothiazide 12.5 mg tablet naproxen 500 mg tablet 500 mg PO BID PRN PRN pain 05/22/24 Unknown History polyethylene glycol 3350 17 17 g PO DAILY PRN bowels 05/22/24 Unknown History gram/dose oral powder cefdinir 300 mg capsule 300 mg PO BID #8 caps 05/24/24 Unknown Rx tamsulosin 0.4 mg capsule 0.8 mg (2 x 0.4 mg) PO QHS #60 caps 05/24/24 Unknown Rx Allergy/AdvReac Type Severity Reaction Status Date / Time ramelteon Allergy hallucinati Verified 06/19/24 09:26 ons Surgical History 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 History of neurogenic bladder but no loss of bowel control. No fevers or chills. No hitting of head or loss of consciousness. EXAM Physical Exam Narrative Exam Narrative: GCS 15. ABCs intact. Seen ambulating to his emergency department room. Nontoxic-appearing. Cardiovascular examination reveals a regular rate and rhythm, chest wall mildly tender in left anterior to mid axillary ribs. No crepitance. Small bruise noted on left chest wall. Abdomen is soft and nontender with positive bowel sounds. No vertebral point tenderness or bony step-off of lumbar spine. Large flank ecchymosis, left. Neurovascular intact bilateral lower extremities. Moves all extremities. Neurological examination nonfocal, nonlateralizing. Const Vital Signs: 06/19/24 09:16 06/19/24 11:37 Temperature 97 F L Temperature Source Temporal Pulse Rate 94 75 Respiratory Rate 16 16 Blood Pressure 131/77 H 109/75 Blood Pressure Mean 95 86 Pulse Ox 99 95 Oxygen Delivery Method Room Air Room Air MDM MDM MDM Narrative Medical decision making narrative: Differential diagnosis includes but not limited to left flank contusion versus retroperitoneal hemorrhage versus rib fracture versus rib contusion on the left. I have lower concern for lumbar spine fracture. However, given his age, imaging was obtained of the chest/ribs as well as CT lumbar spine and CT flank. I reviewed the radiology report of the CT of the flank and there is a renal cyst noted, but more of a left flank contusion, no discrete hematoma. There are edematous changes. On review of the radiology report of the CT of the chest, there are fractures of the posterior ribs #11 and 12 at the costovertebral angle. I reviewed the radiology report of the CT of the lumbar spine and he has nondisplaced fractures of L2, L3, and L4 transverse processes. Given the patient's age and comorbidities, (more content not included)... Normal [facility] H AND P Exam - Hospitaliston 06-19-2024 H&P Exam - Hospitalist [facility] Medical Records Department [address] [place] [id number] H P Exam - Hospitalist 06/19/24 1132 MR#: [id number] Acct: [id number] Name: ZACHARY SHORT Rep #: [id number] : 1945 78 From: Itzel Randle MD PCP: Dr. Ailin Pierson MD Status:ADM VASU Location: [place] [address] HPI - General General Date of Admission: 06/19/24 Date of Service: 06/19/24 Chief Complaint: mechanical fall HPI Narrative ZACHARY SHORT, is a 78 M with a PMH as outlined who presents via the ED on 06/19/2024 with a complaint of mechanical fall and back pian. He was brushing his teeth when he dropped is toothbrush. In his attempt to pick it up, he fell. He hit his head and also hit the left side of his back and ribs. He had no loss of consciousness. He complained of lower back pain and left flank pain with associated brusing. He had no other symptoms. Review of systems was otherwise. Vitals in the ED were BP of 109/75, CA of 75, RR of 16 and oxygen sats of 95% on room air. CBC and BMP ordered with pending at time of review. CT chest abdomen and pelvis showed a 2.4 x 1.8 cm hypodense nodule in the posterior aspect of the left lower pole of the left kidney suggestive of a small cyst and showed edematous changes overlying the subcutaneous fat in the posterior left flank extending to the lower posterior pelvic fat suggestive of post fall contusion. Lumbar spine CT showed a nondisplaced fracture of the costovertebral aspect of the left fourth rib as well as the posterior lateral aspect of the left 11th rib and nondisplaced fractures of the L2-L3 and L4 transverse processes. He has been admitted to be managed for debility and spinal fractures as well as rib fractures due to mechanical fall. [facility] Medical History Acute on chronic urinary retention Leukocytosis Closed fracture of right elbow Weakness Acute UTI Fever Rhabdomyolysis Fall Right elbow pain Kidney stones Non-smoker Asthma Hypertension Home Medications ???Medication ???Instructions ???Recorded ???Last Taken ???Type aspirin 81 mg capsule 81 mg PO DAILY prevention 05/22/24 06/19/24 History azelastine 137 mcg (0.1 %) nasal 1 spray intranasal DAILY nasal 05/22/24 06/19/24 History spray ergocalciferol (vitamin D2) 1,250 1,250 mcg PO .weekly bones 05/22/24 06/16/24 History mcg (50,000 unit) capsule lisinopril 10 1 tab PO DAILY bp 05/22/24 06/19/24 History mg-hydrochlorothiazide 12.5 mg tablet naproxen 500 mg tablet 500 mg PO BID PRN PRN pain 05/22/24 06/05/24 History polyethylene glycol 3350 17 17 g PO DAILY PRN bowels 05/22/24 05/15/24 History gram/dose oral powder tamsulosin 0.4 mg capsule 0.8 mg (2 x 0.4 mg) PO QHS #60 caps 05/24/24 06/19/24 Rx Allergy/AdvReac Type Severity Reaction Status Date / Time ramelteon Allergy hallucinati Verified 06/19/24 09:26 ons Surgical History Knee joint replacement status H/O shoulder replacement Shoulder joint replacement by other means Social History housing: house Smoking Status: Never smoker ROS Constitutional Constitutional: Reports fatigue, malaise and weakness; Denies anorexia, chills or fever(s) Eyes Eyes: Denies change in vision ENT HEENT: Denies dysphagia or headache(s) Cardiovascular Cardiovascular: Denies chest pain, dyspnea on exertion, edema, lightheadedness, orthopnea, palpitations, paroxysmal nocturnal dyspnea, rapid heart rate or syncope Respiratory/Chest Respiratory/Chest: Denies cough, dyspnea, shortness of breath at rest or shortness of breath with exertion Gastrointestinal Gastrointestinal: Denies abdominal pain, nausea or vomiting Genitourinary Genitourinary: Denies burning urination or dysuria Musculoskeletal Musculoskeletal: Reports arthralgias and back pain; Denies joint pain, joint stiffness, joint swelling, myalgias or neck pain Neurologic Neurologic: Denies confusion, dizziness, focal weakness, headache(s), numbness, paresthesias, seizure-like activity, seizures or syncope Psychiatric Psychiatric: Denies anxiety Vital Signs Vital Signs Vital Signs: 06/19/24 09:16 Temperature 97 F L Temperature Source Temporal Pulse Rate 94 Respiratory Rate 16 Blood Pressure 131/77 H Blood Pressure Mean 95 Pulse Ox 99 Oxygen Delivery Method Room Air Weight Weight: 246 lb 4.101 oz Body Mass Index (BMI) 33.4 Physical Exam Const alert, oriented x3 and no apparent distress Constitutional Narrative: frail General Appearance: cooperative HEENT normocephalic, head/scalp atraumatic, hearing grossly normal bilaterally and moist oral mucous membranes Eyes PERRL, EOMs intact bilaterally and conjunctivae norm (more content not included)... Normal [facility] Spine Lumbar without Contras ton 06-19-2024 Spine Lumbar without Contrast [facility] Imaging Services [address] [place], [place] [address] Spine Lumbar without Contrast MR#: [id number] Acct: [id number] Name: ZACHARY SHORT Rep #: [id number] : 1945 M 78 From: Abraham jurado MD PCP: Dr. Ailin Pierson MD Status: REG ER Study: Spine Lumbar without Contrast Date of Exam: Exam# [id number] Ordering Dr: Faustino Starr MD [id number] STUDY: CT LUMBAR SPINE WITHOUT CONTRAST REASON FOR EXAM: Male, 78 years old. Trauma, fell yesterday, bruising to posterior left back RADIATION DOSAGE (If Supplied By Facility): CTDIvol = ( 48.81 ) mGy, DLP = ( 1540.26 ) mGycm TECHNIQUE: The patient was scanned in a multi detector CT scanner. High resolution transaxial imaging was performed. Images were obtained from L1 to S1 vertebral level. Sagittal and coronal images were reconstructed. Individualized dose optimization techniques were used for this CT. COMPARISON: None FINDINGS: Normal lumbar lordosis. There is no substantial scoliosis. Multilevel spondylosis. L1-2: Moderate degree of disc space narrowing. Anterior spondylosis. No evidence of vertebral compression. Mild degree of bilateral neural foraminal stenosis. L2-3: Marked degree of disc space narrowing and disc degeneration. Spondylosis. Bilateral neural foraminal stenosis caused by diffuse posterior disc bulge. Mild degree of disc space 9. Spondylosis. Bilateral neural foraminal stenosis and posterior diffuse disc bulge. L3-4: Disc space narrowing. Spondylosis. Bilateral neural foraminal stenosis. L4-5: Moderate degree of disc space narrowing and spondylosis. Facet joint osteoarthritis and hypertrophy. Bilateral neural foraminal stenosis. L5-S1: Moderate degree of disc space narrowing and disc degeneration. Spondylosis. Facet joint osteoarthritis. There is evidence of a nondisplaced fracture of the transverse process of the L2, L3 and L4 vertebrae. Nondisplaced fracture involving the costovertebral aspect of the right 12th rib as well as nondisplaced fracture of the anterior lateral aspect of the left 11th rib. Atherosclerotic calcification of the abdominal aorta. CT/Spine Lumbar without Contrast IMPRESSION: Nondisplaced fracture of the costovertebral aspect of the left fourth rib as well as the posterior lateral aspect of the left 11th rib. Nondisplaced fracture of the L2, L3 and L4 transverse process. Electronically Signed: Abraham Weiss MD at 10:47 EST , CC: Dr. Faustino Starr MD; Dr. Ailin Pierson MD Slitter Cut Off Operator: Signed [facility] CNNURSEon 05-31-2024 CNNURSE Nurse Visit (UROLMD) -- ZACHARY SHORT ([id number]) 1945 M Date Time Provider Department 05/31/24 9:00 AM NURSE GAVIN LINK UROFRIEDA During your visit today, we recorded the following information about you: Gregory Casarez RN 05/31/2024 11:01 AM Signed Patient presents with urinary retention. Patient states he self caths but states that since taking flomax 0.8 mg he has been urinating much better. Patient asked to go to restroom and see if he could empty out his bladder so it could be scanned. Patient went to restroom and voided. Bladder scan done and patient showed 397 ml of residual urine. Patient was then asked to demonstrate self cath. Patient had no issue with self cath and got 650ml of residual. Patient encouraged to continue self cath and contact office if any new difficulties occur. Allergies As of Date: 05/31/2024 (No Known Allergies) Date Reviewed: 05/31/2024 Reviewed by: Gregory Casarez, RN - Fully Assessed Reason for Visit: Urinary Retention [228] Primary Visit Diagnosis:Urine retention [R33.9] Prescriptions as of 05/31/2024 - ramelteon (ROZEREM) 8 mg tablet Take 1 tablet by mouth daily at bedtime. - azelastine 0.1% nasal spray Use 1 [place] in each nostril two times a day. - lisinopril-hydroCHLOROthia zide (ZESTORETIC) 10-12.5 mg per tablet Take 1 tablet by mouth once daily. - tamsulosin (FLOMAX) 0.4 mg Take 1 capsule by mouth daily at bedtime. - ergocalciferol 50,000 unit capsule (VITAMIN D2, DRISDOL) Take 1 capsule by mouth two times a week. TO BE TAKEN ORALLY DIRECTED. Take 1 tablet by mouth twice weekly [id number], then decrease to 1 tablet weekly. - naproxen (NAPROSYN) 500 mg tablet Take 1 tablet by mouth two times a day as needed (for pain/inflammation). Take with food. - polyethylene glycol 3350 (MIRALAX) 17 gram/dose powder Take 17 g by mouth once daily. Dissolve dose in 4 - 8 ounces of liquid and take as directed. - aspirin, enteric coated (ASPIRIN, ENTERIC COATED) 81 mg EC tablet Take 1 tablet by mouth once daily. Problem List As Of Date 05/31/2024 Noted Resolved Mixed hyperlipidemia [E78.2] 11/09/2005 Unspecified Asthma [J45.909] 11/09/2005 Personal history of other malignant neoplasm of*03/31/2006 Cervical Spondylosis without Myelopathy [M47.81* Family History of Malignant Neoplasm of Gastroi*05/16/2008 Primary Localized Osteoarthrosis, Shoulder Quin*05/16/2008 ACTINIC KERATOSIS (Premalignant AK) [L57.0] 05/17/2008 Other Seborrheic Keratosis [L82.1] 05/17/2008 09/15/2009 ACTINIC DAMAGE///CHR SOLAR SKIN DAMAGE NOS [L57*05/17/2008 09/15/2009 Rosacea [L71.9] 05/17/2008 Primary hypertension [I10] 09/15/2009 Obesity [E66.9] 09/15/2009 Irritated//Inflamed Seborrheic Keratosis [L82.0]09/23/2009 Solar lentigo [L81.4] 09/23/2009 Bladder Neck Obstruction [N32.0] 10/30/2009 Hypertrophy of prostate with urinary obstructio*05/28/2010 Arthritis of shoulder region, left, degenerativ*08/03/2011 Benign neoplasm of rectum and anal canal [D12.8*08/23/2011 Pain in joint, shoulder region [M25.519] 10/21/2011 Chronic knee pain [M25.569, G89.29] 02/28/2017 Preop examination [Z01.818] 11/21/2023 Elevated prostate specific antigen (PSA) [R97.2*11/21/2023 11/29/2023 Obesity, Class I, BMI 30-34.9 [E66.811] 11/21/2023 Prostate cancer (HCC) [C61] 11/29/2023 Encounter Status:Closed by GREGORY CASAREZ on 05/31/24 Normal [facility] Culture, Blood (WB)on 2023 CUB Blood cultures x2, f rom two different sites No growth in 5 days. Normal [facility] Comment on above: Performed By: #### L 100.0100, L500.4050, L501.2450, L503.6005 #### [facility] [address] [place], [place], [id number] Urine Cultureon 05-26-2024 [facility] MAHONEY Enterococcus faecalis [place] Count 80,000-100,000 MIXC Mixed contaminants. Submit a new specimen if indicated. ENTCPX [place] Count 11,000-25,000 Enterobacter cloacae complex Ampicillin Islt DYLAN <=2 Ciprofloxacin Islt DYLAN 1 S Gentamicin Synergy Susc Islt SYN-S levoFLOXacin Islt DYLAN 2 S Linezolid Islt DYLAN 2 S Nitrofurantoin Islt DYLAN <=16 S Streptomycin High Pot Susc Islt SYN-S S Tetracycline Islt DYLAN >=16 R Vancomycin Islt DYLAN 2 S Enterobacter cloacae complex: REACTION Cefepime Islt DYLAN <=0.12 S Ciprofloxacin Islt DYLAN <=0.06 S Gentamicin Islt DYLAN <=1 levoFLOXacin Islt DYLAN <=0.12 S Meropenem Islt DYLAN <=0.25 S Nitrofurantoin Islt DYLAN 32 S Pip+Tazo Islt DYLAN <=4 S TMP SMX Islt DYLAN <=20 S Normal [facility] Comment on above: Performed By: #### M 100.2200 ####[facility] [address] [place], [place], [id number] Basic Metabolic Profile (BMP )on 05-24-2024 BUN/CRE 21.1 RATIO High 10-20 [facility] Comment on above: Performed By: #### L 100.0100, L500.4050, L501.2450, L503.6005 #### [facility] [address] [place], [address] CA,Total 8.7 mg/dL Normal 8.5-10.1 [facility] Comment on above: Performed By: #### L 100.0100, L500.4050, L501.2450, L503.6005 #### [facility] [address] [place], [address] Chloride [Moles/Vol] 107 mmol/L Normal 98-107 [facility] Comment on above: Performed By: #### L 100.0100, L500.4050, L501.2450, L503.6005 #### [facility] [address] [place], [address] CO2 [Moles/Vol] 26.0 mmol/L Normal 21.0-32.0 [facility] Comment on above: Performed By: #### L 100.0100, L500.4050, L501.2450, L503.6005 #### [facility] [address] [place], [address] Creatinine [Mass/Vol] 0.71 mg/dL Normal 0.70-1.30 [facility] Comment on above: Result Comment: The validity of the calculated GFR GFRAA in patients over 70 years has not been determined. Clinical correlation is essential. Performed By: #### L 100.0100, L500.4050, L501.2450, L503.6005 #### [facility] [address] [place], [address] ECRCL 93.71 ml/min Normal [facility] Comment on above: Performed By: #### L 100.0100, L500.4050, L501.2450, L503.6005 #### [facility] [address] [place], [address] EST GFR - AA 137 mL/min Normal >60 [facility] Comment on above: Result Comment: Afri can Guinean GFR Calc Performed By: #### L 100.0100, L500.4050, L501.2450, L503.6005 #### [facility] [address] [place], [address] GAP 5 Normal 5-15 [facility] Comment on above: Performed By: #### L 100.0100, L500.4050, L501.2450, L503.6005 #### [facility] [address] [place], [address] GFR/1.73 sq M.predicted among non-blacks MDRD (S/P/Bld) [Vol rate/Area] 113 mL/min/{1.73_m2} Normal >60 [facility] Comment on above: Result Comment: Non- GFR Calc Performed By: #### L 100.0100, L500.4050, L501.2450, L503.6005 #### [facility] [address] [place], [address] Glucose [Mass/Vol] 102 mg/dL Normal 74-106 [facility] Comment on above: Result Comment: Fast ing Glucose result from 100 to 125 mg/dL suggests IMPAIRED HOMEOSTASIS per A.D.A. criteria. Performed By: #### L 100.0100, L500.4050, L501.2450, L503.6005 #### [facility] [address] [place], [address] Potassium [Moles/Vol] 3.5 mmol/L Normal 3.5-5.1 [facility] Comment on above: Performed By: #### L 100.0100, L500.4050, L501.2450, L503.6005 #### [facility] [address] [place], [address] Sodium [Moles/Vol] 138 mmol/L Normal 136-145 [facility] Comment on above: Performed By: #### L 100.0100, L500.4050, L501.2450, L503.6005 #### [facility] [address] [place], [address] Urea nitrogen [Mass/Vol] 15 mg/dL Normal 7-18 [facility] Comment on above: Performed By: #### L 100.0100, L500.4050, L501.2450, L503.6005 #### [facility] [address] [place], [address] Blood urea nitrogen (BUN)/cr eatinine ratioOrdered By: Brayden Gaona on 05-24-2024 Urea nitrogen/Creatinine [Mass ratio] 21.1 mg/mg High 10- [facility] ZACHARY SHORT ([id number]) 1945 M Date Time Provider Department 05/24/24 JUAN BLANTON JR UROD During your visit today, we recorded the following information about you: Destinee Cloud, LAY 05/24/2024 2:19 PM Signed Patient saw Sarah Ware on 05-16-2024 and passed Voiding trial and was given some #14 BD Coude catheters to go home and straight cath prn. He ended up falling at home and was on the floor for 18 hours until he got help. He is hoping to get discharged from [facility] today but doesn't have that many catheters til the Nurse visit on 05-31-2024. Anyway to get some #14 Coude catheter samples from [place] office to get him til 05-31-2024? As he is there, if not he will have son try and drive to [place] to get. Destinee Cloud, LAY 05/24/2024 3:58 PM Signed Spoke with patient and we will touch based tomorrow if son needs to come here or if they ordered for him before leaving the Hospital. Ninfa Patel MA 05/24/2024 4:37 PM Signed I will put 10 14fr coude self caths at our service desk associate. [facility] [address] [facility] 2nd floor middle desk. Son, Arnoldo notified and they will have them picked up tomorrow. YENY Yu Janelle, LAY 05/25/2024 11:06 AM Signed Left message on voicemail to let us know if he needs anymore. Allergies As of Date: 05/24/2024 (No Known Allergies) Date Reviewed: 05/16/2024 Reviewed by: Sarah Ware APRN.DIRECTOR OF COMPENSATION - Fully Assessed Reason for Visit: CIC at home [Other] Prescriptions as of 05/25/2024 - ramelteon (ROZEREM) 8 mg tablet Take 1 tablet by mouth daily at bedtime. - azelastine 0.1% nasal spray Use 1 [place] in each nostril two times a day. - lisinopril-hydroCHLOROthia zide (ZESTORETIC) 10-12.5 mg per tablet Take 1 tablet by mouth once daily. - tamsulosin (FLOMAX) 0.4 mg Take 1 capsule by mouth daily at bedtime. - ergocalciferol 50,000 unit capsule (VITAMIN D2, DRISDOL) Take 1 capsule by mouth two times a week. TO BE TAKEN ORALLY DIRECTED. Take 1 tablet by mouth twice weekly o6facps, then decrease to 1 tablet weekly. - naproxen (NAPROSYN) 500 mg tablet Take 1 tablet by mouth two times a day as needed (for pain/inflammation). Take with food. - polyethylene glycol 3350 (MIRALAX) 17 gram/dose powder Take 17 g by mouth once daily. Dissolve dose in 4 - 8 ounces of liquid and take as directed. - aspirin, enteric coated (ASPIRIN, ENTERIC COATED) 81 mg EC tablet Take 1 tablet by mouth once daily. Problem List As Of Date 05/24/2024 Noted Resolved Mixed hyperlipidemia [E78.2] 11/09/2005 Unspecified Asthma [J45.909] 11/09/2005 Personal history of other malignant neoplasm of*03/31/2006 Cervical Spondylosis without Myelopathy [M47.81* Family History of Malignant Neoplasm of Gastroi*05/16/2008 Primary Localized Osteoarthrosis, Shoulder Quin*05/16/2008 ACTINIC KERATOSIS (Premalignant AK) [L57.0] 05/17/2008 Other Seborrheic Keratosis [L82.1] 05/17/2008 09/15/2009 ACTINIC DAMAGE///CHR SOLAR SKIN DAMAGE NOS [L57*05/17/2008 09/15/2009 Rosacea [L71.9] 05/17/2008 Primary hypertension [I10] 09/15/2009 Obesity [E66.9] 09/15/2009 Irritated//Inflamed Seborrheic Keratosis [L82.0]09/23/2009 Solar lentigo [L81.4] 09/23/2009 Bladder Neck Obstruction [N32.0] 10/30/2009 Hypertrophy of prostate with urinary obstructio*05/28/2010 Arthritis of shoulder region, left, degenerativ*08/03/2011 Benign neoplasm of rectum and anal canal [D12.8*08/23/2011 Pain in joint, shoulder region [M25.519] 10/21/2011 Chronic knee pain [M25.569, G89.29] 02/28/2017 Preop examination [Z01.818] 11/21/2023 Elevated prostate specific antigen (PSA) [R97.2*11/21/2023 11/29/2023 Obesity, Class I, BMI 30-34.9 [E66.811] 11/21/2023 Prostate cancer (HCC) [C61] 11/29/2023 Encounter Status:Closed by DESTINEE CLODU on 05/25/24 Normal [facility] Carbon dioxide measurementOr dered By: Brayden Gaona on 05-24-2024 CO2 [Moles/Vol] 26.0 mmol/L 21.0-32.0 [facility] Chloride measurementOrdered By: Brayden Gaona on 05-24-2024 Chloride [Moles/Vol] 107 mmol/L 98-107 [facility] Consultation - Orthopedicson 05-24-2024 Consultation - Orthopedics [facility] Medical Records Department [address] [place] [address] Consultation - Orthopedics 05/24/24 0821 MR#: [id number] Acct: [id number] Name: ZACHARY SHORT Rep #: [id number] : 1945 78 From: Samuel Adler MD PCP: Dr. Ailin Pierson MD Status:ADM IN Location: [place] [address] HPI Consult Data Date of Consult: 05/24/24 HPI Narrative HPI Narrative: ZACHARY SHORT, is a 78 M who presents with right elbow pain. Patient had a fall out of bed about a day and a half ago. The patient is right-hand dominant. He has pain in the right lateral aspect of the elbow. The patient was put in a splint for possible fracture and admitted due to rhabdomyolysis and urinary issues. [facility] Medical History (Updated 05/24/24 @ 08:25 by Samuel Adler MD) Right elbow pain Kidney stones Non-smoker Asthma Hypertension Home Medications ???Medication ???Instructions ???Recorded ???Last Taken ???Type aspirin 81 mg capsule 81 mg PO DAILY prevention 05/22/24 Unknown History azelastine 137 mcg (0.1 %) nasal 1 spray intranasal DAILY nasal 05/22/24 Unknown History spray ergocalciferol (vitamin D2) 1,250 1,250 mcg PO .weekly bones 05/22/24 Unknown History mcg (50,000 unit) capsule lisinopril 10 1 tab PO DAILY bp 05/22/24 Unknown History mg-hydrochlorothiazide 12.5 mg tablet naproxen 500 mg tablet 500 mg PO BID PRN PRN pain 05/22/24 Unknown History polyethylene glycol 3350 17 17 g PO DAILY PRN bowels 05/22/24 Unknown History gram/dose oral powder tamsulosin 0.4 mg capsule 0.4 mg PO QHS bladder 05/22/24 Unknown History Allergy/AdvReac Type Severity Reaction Status Date / Time ramelteon Allergy hallucinati Verified 05/22/24 19:37 ons Surgical History Knee joint replacement status H/O shoulder replacement Shoulder joint replacement by other means Social History housing: house Smoking Status: Never smoker Vital Signs Vital Signs Vital Signs: 05/23/24 09:40 05/23/24 09:55 05/23/24 09:55 Temperature 97.8 F Temperature Source Temporal Pulse Rate 72 Pulse Strength Normal (2+) Respiratory Rate 16 Respiratory Effort Normal Non-Labored Respiratory Depth Normal Respiratory Pattern Normal Blood Pressure 121/81 H Blood Pressure Mean 94 Blood Pressure Source Monitor Blood Pressure Position Sitting Blood Pressure Location Left Arm Pulse Ox 96 Oxygen Delivery Method Room Air Room Air 05/23/24 14:00 05/23/24 16:00 05/23/24 17:00 Temperature 98.8 F 98.8 F Temperature Source Oral Oral Pulse Rate 71 71 Pulse Strength Respiratory Rate 18 18 Respiratory Effort Normal Non-Labored Respiratory Depth Normal Respiratory Pattern Normal Blood Pressure 107/68 107/68 Blood Pressure Mean 81 81 Blood Pressure Source Monitor Blood Pressure Position Semi-Fowlers Blood Pressure Location Left Arm Pulse Ox 97 97 Oxygen Delivery Method Room Air Room Air Room Air 05/23/24 22:00 05/23/24 22:00 05/23/24 22:54 Temperature 98.7 F Temperature Source Oral Pulse Rate 70 Pulse Strength Normal (2+) Respiratory Rate 16 Respiratory Effort Respiratory Depth Respiratory Pattern Blood Pressure 116/68 Blood Pressure Mean 84 Blood Pressure Source Monitor Blood Pressure Position Semi-Fowlers Blood Pressure Location Left Arm Pulse Ox 96 Oxygen Delivery Method Room Air Room Air 05/24/24 05:00 Temperature 97.6 F L Temperature Source Oral Pulse Rate 58 L Pulse Strength Respiratory Rate 16 Respiratory Effort Respiratory Depth Respiratory Pattern Blood Pressure 117/70 Blood Pressure Mean 85 Blood Pressure Source Monitor Blood Pressure Position Semi-Fowlers Blood Pressure Location Left Arm Pulse Ox 95 Oxygen Delivery Method Room Air Weight Weight: 239 lb 3.225 oz Body Mass Index (BMI) 32.4 Physical Exam Const alert, oriented x3, no apparent distress and well nourished General Appearance: well developed Extremity Extremity Narrative: Right upper extremity is in a splint. I remove the splint. There is some mild superficial abrasions the posterior aspect of the right elbow. Some mild area of ecchymosis to the lateral aspect of the elbow. Mild pain to the anterior and medial aspect of the elbow no pain to the radial head or posterior aspect of the elbow. Forearm compartment is soft. This is neurovascularly intact strong radial pulse normal sensation and motor function to the MRU and AIN/PIN nerves. Shoulder deltoid muscle is soft. No bruising up there or in the wrist no pain in the wrist or hand. Elbow moves fully and range of motion 0 to (more content not included)... Normal [facility] Discharge Instructionon 04-30 Discharge Instruction [facility] Medical Records Department [address] [place] [address] Instructions for Home/Discharge Instructions 05/24/24 1429 MR#: [id number] Acct: [id number] Name: ZACHARY SHORT Rep #: [id number] : 1945 78 From: Brayden Gaona DO PCP: Dr. Ailin Pierson MD Status:ADM IN Discharge Instructions Diet Discharge Diet: No restrictions DC O2, CPAP, BIPAP needs Home O2 Discharge instructions: No Dressing / Incision Discharge Activity: Return to Normal Activity Weight Bearing Status: Full weight bearing Follow Up Care Test Results: Test results from this visit will be discussed in further detail at your follow-up appointment, if applicable. Discharge Plan Admission Admit Date/Time: 05/22/24 17:51 Primary Reason for Your Visit: cystitis, debility Attending Provider: Brayden Gaona Primary Care Provider: Ailin Pierson Consulting Providers: Tyler Garcia; Samuel Adler Instructions Additional Instructions / Restrictions: Follow-up with your urologist as scheduled Discharge Orders/Prescriptions Prescriptions: New tamsulosin 0.4 mg Capsule 0.8 mg PO QHS Qty: 60 0RF cefdinir 300 mg capsule 300 mg PO BID Qty: 8 0RF Rx Instructions: Start on 05/25/2024 Continued lisinopril-hydrochlorothia zide 10-12.5 mg tablet 1 tab PO DAILY aspirin 81 mg capsule 81 mg PO DAILY polyethylene glycol 3350 17 gram/dose powder 17 g PO DAILY PRN (Reason: bowels) azelastine 137 mcg (0.1 %) spray,non-aerosol 1 spray INTRANASAL DAILY naproxen 500 mg tablet 500 mg PO BID PRN PRN (Reason: pain) ergocalciferol (vitamin D2) 1,250 mcg (50,000 unit) capsule 1,250 mcg PO .weekly Rx Instructions: takes on Saturadays Discontinued tamsulosin 0.4 mg capsule 0.4 mg PO QHS Referrals / Follow Up: Ailin Pierson MD [Primary Care Provider] - Within 2 Weeks Disposition Disposition (needs filled in before D/C Order can be placed): Home, Self Care 05/24/24 1445 Brayden Gaona DO CC: Dr. Tyler Garcia MD; Dr. Ailin Pierson MD; Dr. Samuel Adler MD Signed Normal [facility] Estimated glomerular filtrat ion rate (GFR) AmericanOrdered By: Brayden Gaona on 05-24-2024 Estimated GFR (MDRD) Amer 137 mL/min >60 [facility] Comment on above: GFR Calc Estimation of creatinine lopez aranceOrdered By: Brayden Gaona on 05-24-2024 Estimated Creatinine Clearance Calc 93.71 ml/min [facility] Glomerular filtration rate ( GFR) estimationOrdered By: Brayden Gaona on 05-24-2024 Estimated GFR (MDRD) Non-Af Amer 113 mL/min >60 [facility] Comment on above: Non- GFR Calc Glucose measurementOrdered B y: Brayden Gaona on 05-24-2024 Glucose [Mass/Vol] 102 mg/dL 74-106 [facility] Comment on above: Fasting Glucose resu lt from 100 to 125 mg/dL suggests IMPAIRED HOMEOSTASIS per A.D.A. criteria. Potassium measurementOrdered By: Brayden Gaona on 05-24-2024 Potassium [Moles/Vol] 3.5 mmol/L 3.5-5.1 [facility] Serum anion gap measurementO rdered By: Brayden Gaona on 05-24-2024 Anion gap [Moles/Vol] 5 mmol/L 5-15 [facility] Serum or plasma calcium valentin urement (mass/volume)Ordered By: Brayden Gaona on 05-24-2024 Calcium [Mass/Vol] 8.7 mg/dL 8.5-10.1 [facility] Serum or plasma creatinine m easurement (mass/volume)Ordered By: Brayden Gaona on 05-24-2024 Creatinine [Mass/Vol] 0.71 mg/dL 0.70-1.30 [facility] Comment on above: The validity of the calculated GFR & GFRAA in patients over 70 years has not been determined. Clinical correlation is essential. Serum or plasma urea nitroge n measurement (mass/volume)Ordered By: Brayden Gaona on 05-24-2024 Urea nitrogen [Mass/Vol] 15 mg/dL 7-18 [facility] Sodium levelOrdered By: Brayden Gaona on 05-24-2024 Sodium [Moles/Vol] 138 mmol/L 136-145 [facility] Urine Cultureon 05-24-2024 URC Culture exhibits no growth. Normal [facility] Comment on above: Performed By: #### L 400.0001 #### [facility] [address] [place], [address] Absolute neutrophil countOrd ered By: Tyler Garcia on 05-23-2024 Neutrophils (Bld) [#/Vol] 9.0 10*3/uL High 2.0-7.7 [facility] Albumin to globulin ratioOrd ered By: Tyler Garcia on 05-23-2024 Albumin/Globulin [Mass ratio] 0.6 {ratio} Low 0.9-2.4 [facility] Basic Metabolic Profile (BMP )on 05-23-2024 BUN/CRE 21.1 RATIO High 10-20 [facility] Comment on above: Performed By: #### L 500.4050, L500.3400, L500.2500, L100.0100, L501.5200 ####[facility] [address] [place], [address] CA,Total 8.4 mg/dL Low 8.5-10.1 [facility] Comment on above: Performed By: #### L 500.4050, L500.3400, L500.2500, L100.0100, L501.5200 ####[facility] [address] [place], [address] Chloride [Moles/Vol] 109 mmol/L High 98-107 [facility] Comment on above: Performed By: #### L 500.4050, L500.3400, L500.2500, L100.0100, L501.5200 ####[facility] [address] [place], [address] CO2 [Moles/Vol] 25.0 mmol/L Normal 21.0-32.0 [facility] Comment on above: Performed By: #### L 500.4050, L500.3400, L500.2500, L100.0100, L501.5200 ####[facility] [address] [place], [address] Creatinine [Mass/Vol] 0.76 mg/dL Normal 0.70-1.30 [facility] Comment on above: Result Comment: The validity of the calculated GFR GFRAA in patients over 70 years has not been determined. Clinical correlation is essential. Performed By: #### L 500.4050, L500.3400, L500.2500, L100.0100, L501.5200 ####[facility] [address] [place], [address] ECRCL 93.71 ml/min Normal [facility] Comment on above: Performed By: #### L 500.4050, L500.3400, L500.2500, L100.0100, L501.5200 ####[facility] [address] [place], [address] EST GFR - AA 127 mL/min Normal >60 [facility] Comment on above: Result Comment: Afri can [place]inean GFR Calc Performed By: #### L 500.4050, L500.3400, L500.2500, L100.0100, L501.5200 ####[facility] [address] [place], [address] GAP 6 Normal 5-15 [facility] Comment on above: Performed By: #### L 500.4050, L500.3400, L500.2500, L100.0100, L501.5200 ####[facility] [address] [place], [address] GFR/1.73 sq M.predicted among non-blacks MDRD (S/P/Bld) [Vol rate/Area] 105 mL/min/{1.73_m2} Normal >60 [facility] Comment on above: Result Comment: Non- GFR Calc Performed By: #### L 500.4050, L500.3400, L500.2500, L100.0100, L501.5200 ####[facility] [address] [place], [address] Glucose [Mass/Vol] 89 mg/dL Normal 74-106 [facility] Comment on above: Performed By: #### L 500.4050, L500.3400, L500.2500, L100.0100, L501.5200 ####[facility] [address] [place], [address] Potassium [Moles/Vol] 3.8 mmol/L Normal 3.5-5.1 [facility] Comment on above: Performed By: #### L 500.4050, L500.3400, L500.2500, L100.0100, L501.5200 ####[facility] [address] [place], [address] Sodium [Moles/Vol] 139 mmol/L Normal 136-145 [facility] Comment on above: Performed By: #### L 500.4050, L500.3400, L500.2500, L100.0100, L501.5200 ####[facility] [address] [place], [address] Urea nitrogen [Mass/Vol] 16 mg/dL Normal 7-18 [facility] Comment on above: Performed By: #### L 500.4050, L500.3400, L500.2500, L100.0100, L501.5200 ####[facility] [address] [place], [address] Basophil percentageOrdered B y: Tyler Garcia on 05-23-2024 Basophils/100 WBC (Bld) 0.7 % 0-1 [facility] Bilirubin directOrdered By: Tyler Garcia on 05-23-2024 Bilirubin.direct [Mass/Vol] 0.12 mg/dL 0.00-0.30 [facility] Bilirubin, totalOrdered By: Tyler Garcia on 05-23-2024 Bilirubin [Mass/Vol] 0.50 mg/dL 0.20-1.00 [facility] Comment on above: For patients on eltr ombopag therapy, use of Dimension [place] TBIL is not recommended. CBC W/Diff, Automatedon 04-30 Absolute Lymph 1.41 X10 3/uL Normal 0.83-4.51 [facility] Comment on above: Performed By: #### L 500.4050, L500.3400, L500.2500, L100.0100, L501.5200 ####[facility] [address] [place], [address] Absolute Neut 9.0 X10 3/uL High 2.0-7.7 [facility] Comment on above: Performed By: #### L 500.4050, L500.3400, L500.2500, L100.0100, L501.5200 ####[facility] [address] [place], [address] Basophils/100 WBC (Bld) 0.7 % Normal 0-1 [facility] Comment on above: Performed By: #### L 500.4050, L500.3400, L500.2500, L100.0100, L501.5200 ####[facility] [address] [place], [address] Eosinophils/100 WBC (Bld) 2.2 % Normal 0-5 [facility] Comment on above: Performed By: #### L 500.4050, L500.3400, L500.2500, L100.0100, L501.5200 ####[facility] [address] [place], [address] Erythrocyte distribution width (RBC) [Ratio] 13.0 % Normal 11.6-14.6 [facility] Comment on above: Performed By: #### L 500.4050, L500.3400, L500.2500, L100.0100, L501.5200 ####[facility] [address] [place], [address] Hematocrit (Bld) [Volume fraction] 34.7 % Low 40-54 [facility] Comment on above: Performed By: #### L 500.4050, L500.3400, L500.2500, L100.0100, L501.5200 ####[facility] [address] [place], [address] Hemoglobin (Bld) [Mass/Vol] 11.6 g/dL Low 13.0-16.5 [facility] Comment on above: Performed By: #### L 500.4050, L500.3400, L500.2500, L100.0100, L501.5200 ####[facility] [address] [place], [address] IG% 0.800 Normal 0.0-0.9 [facility] Comment on above: Result Comment: IG% - Immature Granulocytes (promyelocytes, myelocytes and metamyelocytes) > 1% indicates that a LEFT SHIFT is Present. Performed By: #### L 500.4050, L500.3400, L500.2500, L100.0100, L501.5200 ####[facility] [address] [place], [address] Lymphocytes/100 WBC (Bld) 11.8 % Low 19-41 [facility] Comment on above: Performed By: #### L 500.4050, L500.3400, L500.2500, L100.0100, L501.5200 ####[facility] [address] [place], [address] MCH (RBC) [Entitic mass] 34.7 pg High 27.0-32.0 [facility] Comment on above: Performed By: #### L 500.4050, L500.3400, L500.2500, L100.0100, L501.5200 ####[facility] [address] [place], [address] MCHC (RBC) [Mass/Vol] 33.4 g/dL Normal 32-36 [facility] Comment on above: Performed By: #### L 500.4050, L500.3400, L500.2500, L100.0100, L501.5200 ####[facility] [address] [place], [address] MCV (RBC) [Entitic vol] 103.9 fL High 80-94 [facility] Comment on above: Performed By: #### L 500.4050, L500.3400, L500.2500, L100.0100, L501.5200 ####[facility] [address] [place], [address] Monocytes/100 WBC (Bld) 9.4 % Normal 0-10 [facility] Comment on above: Performed By: #### L 500.4050, L500.3400, L500.2500, L100.0100, L501.5200 ####[facility] [address] [place], [address] Neutrophils/100 WBC (Bld) 75.1 % High 47-70 [facility] Comment on above: Performed By: #### L 500.4050, L500.3400, L500.2500, L100.0100, L501.5200 ####[facility] [address] [place], [address] Nucleated RBC (Bld) [#/Vol] 0 10*3/uL Normal 0-5 [facility] Comment on above: Performed By: #### L 500.4050, L500.3400, L500.2500, L100.0100, L501.5200 ####[facility] [address] [place], [address] Platelet mean volume (Bld) [Entitic vol] 9.3 fL Normal 6.2-12.0 [facility] Comment on above: Performed By: #### L 500.4050, L500.3400, L500.2500, L100.0100, L501.5200 ####[facility] [address] [place], [address] Platelets (Bld) [#/Vol] 194 10*3/uL Normal 150-450 [facility] Comment on above: Performed By: #### L 500.4050, L500.3400, L500.2500, L100.0100, L501.5200 ####[facility] [address] [place], [address] RBC (Bld) [#/Vol] 3.34 10*6/uL Low 4.6-6.[address] [facility] Comment on above: Performed By: #### L 500.4050, L500.3400, L500.2500, L100.0100, L501.5200 ####[facility] [address] [place], [address] RDW SD 49.9 fl High 35.1-43.9 [facility] Comment on above: Performed By: #### L 500.4050, L500.3400, L500.2500, L100.0100, L501.5200 ####[facility] [address] [place], [address] WBC (Bld) [#/Vol] 12.0 10*3/uL High 4.4-11.[address] [facility] Comment on above: Performed By: #### L 500.4050, L500.3400, L500.2500, L100.0100, L501.5200 ####[facility] [address] [place], [address] Comprehensive Metabolic Prof ilon 05-23-2024 Albumin/Globulin [Mass ratio] 0.6 {ratio} Low 0.9-2.4 [facility] Comment on above: Performed By: #### L 500.4050, L500.3400, L500.2500, L100.0100, L501.5200 ####[facility] [address] [place], [address] Eosinophil percentageOrdered By: Tyler Garcia on 05-23-2024 Eosinophils/100 WBC (Bld) 2.2 % 0-5 [facility] Erythrocyte distribution wid th (RBC) [Ratio]Ordered By: Tyler Garcia on 05-23-2024 Erythrocyte distribution width (RBC) [Entitic vol] 49.9 fL High 35.1-43.9 [facility] Erythrocyte distribution wid th ratioOrdered By: Tyler Garcia on 05-23-2024 Erythrocyte distribution width (RBC) [Ratio] 13.0 % 11.6-14.6 [facility] Hematocrit Auto (Bld) [Volum e fraction]Ordered By: Tyler Garcia on 05-23-2024 Hematocrit (Bld) [Volume fraction] 34.7 % Low 40-54 [facility] Hemoglobin measurementOrdere d By: Tyler Garcia on 05-23-2024 Hemoglobin (Bld) [Mass/Vol] 11.6 g/dL Low 13.0-16.5 [facility] Immature granulocytes/100 WB C Auto (Bld)Ordered By: Tyler Garcia on 05-23-2024 Immature granulocytes/100 WBC (Bld) 0.800 % 0.0-0.9 [facility] Comment on above: IG% - Immature Granu locytes (promyelocytes, myelocytes and metamyelocytes) > 1% indicates that a LEFT SHIFT is Present. International normalized rat io (INR) calculationOrdered By: Tyler Garcia on 05-23-2024 INR Coag (Bld) [Relative time] 1.5 {INR} [facility] Laboratory - Chemistry and C hemistry - challengeOrdered By: Tyler Garcia on 05-23-2024 AST [Catalytic activity/Vol] 205 U/L High [facility] Liver Profileon 05-23-2024 Albumin [Mass/Vol] 2.7 g/dL Low 3.2-5.0 [facility] Comment on above: Performed By: #### L 500.4050, L500.3400, L500.2500, L100.0100, L501.5200 ####[facility] [address] [place], [address] ALK P 69 U/L Normal 45-117 [facility] Comment on above: Performed By: #### L 500.4050, L500.3400, L500.2500, L100.0100, L501.5200 ####[facility] [address] [place], [address] ALT [Catalytic activity/Vol] 70 U/L High 16-61 [facility] Comment on above: Performed By: #### L 500.4050, L500.3400, L500.2500, L100.0100, L501.5200 ####[facility] [address] [place], [address] AST [Catalytic activity/Vol] 205 U/L High 15-37 [facility] Comment on above: Performed By: #### L 500.4050, L500.3400, L500.2500, L100.0100, L501.5200 ####[facility] [address] [place], [address] Bilirubin [Mass/Vol] 0.50 mg/dL Normal 0.20-1.00 [facility] Comment on above: Result Comment: For patients on eltrombopag therapy, use of Dimension [place] TBIL is not recommended. Performed By: #### L 500.4050, L500.3400, L500.2500, L100.0100, L501.5200 ####[facility] [address] [place], [address] Bilirubin.direct [Mass/Vol] 0.12 mg/dL Normal 0.00-0.30 [facility] Comment on above: Performed By: #### L 500.4050, L500.3400, L500.2500, L100.0100, L501.5200 ####[facility] [address] [place], [address] Globulin (S) [Mass/Vol] 4.3 g/dL High 2.2-4.2 [facility] Comment on above: Performed By: #### L 500.4050, L500.3400, L500.2500, L100.0100, L501.5200 ####[facility] [address] [place], [address] T PROT 7.0 g/dL Normal 6.4-8.2 [facility] Comment on above: Performed By: #### L 500.4050, L500.3400, L500.2500, L100.0100, L501.5200 ####[facility] [address] [place], [address] Lymphocytes Auto (Unsp spec) [#/Vol]Ordered By: Tyler Garcia on 05-23-2024 Lymphocytes (Bld) [#/Vol] 1.41 10*3/uL 0.83-4.51 [facility] Lymphocytes/100 WBC Auto (Un sp spec)Ordered By: Tyler Garcia on 05-23-2024 Lymphocytes/100 WBC (Bld) 11.8 % Low 19-41 [facility] MCV (mean corpuscular volume ) determinationOrdered By: Tyler Garcia on 05-23-2024 MCV (RBC) [Entitic vol] 103.9 fL High 80-94 [facility] Magnesiumon 05-23-2024 Magnesium [Mass/Vol] 2.3 mg/dL Normal 1.6-2.6 [facility] Comment on above: Performed By: #### L 500.4050, L500.3400, L500.2500, L100.0100, L501.5200 ####[facility] [address] [place], [place], [address] Magnesium measurementOrdered By: Tyler Garcia on 05-23-2024 Magnesium [Mass/Vol] 2.3 mg/dL 1.6-2.6 [facility] Mean corpuscular hemoglobin (MCH) determinationOrdered By: Tyler Garcia on 05-23-2024 MCH (RBC) [Entitic mass] 34.7 pg High 27.0-32.0 [facility] Mean corpuscular hemoglobin concentration (MCHC) determinationOrdered By: Tyler Garcia on 05-23-2024 MCHC (RBC) [Mass/Vol] 33.4 g/dL 32-36 [facility] Mean platelet volume determi nationOrdered By: Tyler Garcia on 05-23-2024 Platelet mean volume (Bld) [Entitic vol] 9.3 fL 6.2-12.0 [facility] Monocyte percentageOrdered B y: Tyler Garcia on 05-23-2024 Monocytes/100 WBC (Bld) 9.4 % 0-10 [facility] Neutrophil percentageOrdered By: Tyler Garcia on 05-23-2024 Neutrophils/100 WBC (Bld) 75.1 % High 47-70 [facility] Nucleated red blood cell per centageOrdered By: Tyler Garcia on 05-23-2024 Nucleated RBC/100 WBC (Bld) [Ratio] 0 % 0-5 [facility] Phosphoruson 05-23-2024 Phosphate [Mass/Vol] 2.9 mg/dL Normal 2.5-4.9 [facility] Comment on above: Performed By: #### L 501.2300, L501.9520 ####[facility] [address] [place], [place], [id number] Phosphorus measurementOrdere d By: Tyler Garcia on 05-23-2024 Phosphorus Level 2.9 mg/dL 2.5-4.9 [facility] Platelet countOrdered By: Xavier Garcia on 05-23-2024 Platelets (Bld) [#/Vol] 194 10*3/uL 150-450 [facility] Prothrombin Time w/INRon INR Coag (PPP) [Relative time] 1.5 {INR} Normal [facility] Comment on above: Performed By: #### L 100.0100, L500.4050, L501.2450, L503.6005 #### [facility] Laboratory [address] [place], [address] PT Coag (PPP) [Time] 18.0 s High 11.7-14.9 [facility] Comment on above: Performed By: #### L 100.0100, L500.4050, L501.2450, L503.6005 #### [facility] [address] [place], [place], [id number] Prothrombin timeOrdered By: Tyler Garcia on 05-23-2024 PT Coag (PPP) [Time] 18.0 s High 11.7-14.9 [facility] RBC Auto (Bld) [#/Vol]Ordere d By: Tyler Garcia on 05-23-2024 RBC (Bld) [#/Vol] 3.34 10*6/uL Low 4.6-6.[address] [facility] Serum globulin measurementOr dered By: Tyler Garcia on 05-23-2024 Globulin (S) [Mass/Vol] 4.3 g/dL High 2.2-4.2 [facility] Serum or plasma alanine anderson otransferase (ALT) measurementOrdered By: Tyler Garcia on 05-23-2024 ALT [Catalytic activity/Vol] 70 U/L High 16-61 [facility] Serum or plasma albumin valentin urement (mass/volume)Ordered By: Tyler Garcia on 05-23-2024 Albumin [Mass/Vol] 2.7 g/dL Low 3.2-5.0 [facility] Serum or plasma alkaline herb sphatase measurementOrdered By: Tyler Garcia on 05-23-2024 ALP [Catalytic activity/Vol] 69 U/L 45-117 [facility] TSH QnOrdered By: Tyler Bates ingh on 05-23-2024 Thyroid Stimulating Hormone (TSH) 1.080 uIU/mL 0.358-3.740 [facility] Thyroid Stim Hormone (TSH)on 05-23-2024 TSH 1.080 uIU/mL Normal 0.358-3.740 [facility] Comment on above: Performed By: #### L 501.2300, L501.9520 ####[facility] [address] [facility] [place], [address] Total proteinOrdered By: Gabino Garcia on 05-23-2024 Protein [Mass/Vol] 7.0 g/dL 6.4-8.2 [facility] Urine cultureOrdered By: Bonny Gaona on 05-23-2024 Bacteria identified Cx Nom (U) Culture exhibits no growth. [facility] White blood cell (WBC) count Ordered By: Tyler Garcia on 05-23-2024 WBC (Bld) [#/Vol] 12.0 10*3/uL High 4.4-11.[address] [facility] 12 Lead EKGon 05-22-2024 12 Lead EKG [facility] Cardiovascular Services [address] [place] [address] 12 Lead EKG 05/22/24 1515 MR#: [id number] Acct: [id number] Name: ZACHARY SHORT Rep #: [id number] : 1945 78 From: Jose Richards MD Attending Dr: Dr. Brayden Gaona, DO Status: A DM IN Ordering Dr: Mich Stokes MD Date: 05/22/24 Location: U Sex: M C Admitted: 05/22/24 Test Reason : WEAKNESS Blood Pressure : */* mmHG Vent. Rate : 75 BPM Atrial Rate : 75 BPM P-R Int : 156 ms QRS Dur : 120 ms QT Int : 406 ms P-R-T Axes : 15 -53 36 degrees QTcB Int : 453 ms Sinus rhythm with Premature atrial complexes Left anterior fascicular block Septal infarct , age undetermined Abnormal ECG Confirmed by JOSE RICHARDS MD ([id number]), social media editor HARI PINEDA ([id number]) on 05/24/2024 2:16:33 PM Referred By: Mich Stokes Confirmed By: JOSE RICHARDS MD 05/24/24 1416 Date Jose Richards MD CC: Dr. Ailin Pierson MD; Dr. Mich Stokes MD; Dr. Brayden Gaona DO Signed Normal [facility] Bilirubin Test strip Ql (U)O rdered By: Mich Stokes on 05-22-2024 Bilirubin Ql (U) Negative Negative [facility] Blood cultureOrdered By: Harish Stokes on 05-22-2024 Bacteria identified Cx Nom (Bld) No growth in 5 days. [facility] Brain/Head without Contrasto n 05-22-2024 Brain/Head without Contrast [facility] Imaging Services [address] [place], [place] [address] Brain/Head without Contrast MR#: [id number] Acct: [id number] Name: ZACHARY SHORT Rep #: [id number] : 1945 M 78 From: Marielena Roper MD PCP: Dr. Ailin Pierson MD Status: REG ER Study: Brain/Head without Contrast Date of Exam: 04/30 09/20 Exam# [id number] Ordering Dr: Mich Stokes MD [id number] INDICATION: fall and trauma EXAMINATION: CT BRAIN - CT Head or Brain W/O Contrast Injection TECHNIQUE: Multiple axial images were obtained of the head without intravenous contrast. The protocol utilizes one or more of the following dose reduction techniques: automated exposure control, adjustment of mA and/or kV according to patient size,and/or use of iterative reconstruction technique. IV Contrast dosage and agent: None. RADIATION DOSAGE (If Supplied By Facility): CTDIvol = ( 44.99 ) mGy, DLP = ( 863.60 ) mGycm COMPARISON: No relevant prior comparison study available FINDINGS: BRAIN PARENCHYMA: No intra- or extra-axial hemorrhage. No evidence of acute infarct. No intracranial mass or mass effect. There is preservation of the lester/white matter interface. Posterior fossa structures are unremarkable. CSF SPACES: Appropriate for age. No hydrocephalus. Basal cisterns are patent. CALVARIUM, SKULL BASE, PARANASAL SINUSES AND MASTOID AIR CELLS: There is minimal opacification of the paranasal sinuses. There is a separate dedicated CT report of the maxillofacial bones. No discrete lytic or blastic abnormalities. ORBITS: Both globes, extraocular muscles, optic nerves and retrobulbar fat appear unremarkable. ASPECTS Score for Acute Strokes: 10 CT/Brain/Head without Contrast IMPRESSION: No acute intracranial process. Mild pansinusitis. Electronically Signed: Marielena Roper MD at 15:58 EST , CC: Dr. Ailin Pierson MD; Dr. Mich Stokes MD Slitter Cut Off Operator: Signed Normal [facility] CBC W/Diff, Automatedon 12-2 Absolute Lymph 1.15 X10 3/uL Normal 0.83-4.51 [facility] Comment on above: Performed By: #### L 100.0100, L500.4050, L501.2450, L503.6005 #### [facility] Laboratory [address] [place], [place], [id number] Absolute Neut 12.4 X10 3/uL High 2.0-7.7 [facility] Comment on above: Performed By: #### L 100.0100, L500.4050, L501.2450, L503.6005 #### [facility] [address] [place], [address] Basophils/100 WBC (Bld) 0.6 % Normal 0-1 [facility] Comment on above: Performed By: #### L 100.0100, L500.4050, L501.2450, L503.6005 #### [facility] [address] [place], [address] Eosinophils/100 WBC (Bld) 0.2 % Normal 0-5 [facility] Comment on above: Performed By: #### L 100.0100, L500.4050, L501.2450, L503.6005 #### [facility] [address] [place], [address] Erythrocyte distribution width (RBC) [Ratio] 12.9 % Normal 11.6-14.6 [facility] Comment on above: Performed By: #### L 100.0100, L500.4050, L501.2450, L503.6005 #### [facility] [address] [place], [address] Hematocrit (Bld) [Volume fraction] 38.1 % Low 40-54 [facility] Comment on above: Performed By: #### L 100.0100, L500.4050, L501.2450, L503.6005 #### [facility] [address] [place], [address] Hemoglobin (Bld) [Mass/Vol] 12.9 g/dL Low 13.0-16.5 [facility] Comment on above: Performed By: #### L 100.0100, L500.4050, L501.2450, L503.6005 #### [facility] [address] [place], [address] IG% 0.500 Normal 0.0-0.9 [facility] Comment on above: Result Comment: IG% - Immature Granulocytes (promyelocytes, myelocytes and metamyelocytes) > 1% indicates that a LEFT SHIFT is Present. Performed By: #### L 100.0100, L500.4050, L501.2450, L503.6005 #### [facility] [address] [place], [address] Lymphocytes/100 WBC (Bld) 7.7 % Low 19-41 [facility] Comment on above: Performed By: #### L 100.0100, L500.4050, L501.2450, L503.6005 #### [facility] [address] [place], [address] MCH (RBC) [Entitic mass] 35.0 pg High 27.0-32.0 [facility] Comment on above: Performed By: #### L 100.0100, L500.4050, L501.2450, L503.6005 #### [facility] [address] [place], [address] MCHC (RBC) [Mass/Vol] 33.9 g/dL Normal 32-36 [facility] Comment on above: Performed By: #### L 100.0100, L500.4050, L501.2450, L503.6005 #### [facility] [address] [place], [address] MCV (RBC) [Entitic vol] 103.3 fL High 80-94 [facility] Comment on above: Performed By: #### L 100.0100, L500.4050, L501.2450, L503.6005 #### [facility] [address] [place], [address] Monocytes/100 WBC (Bld) 7.6 % Normal 0-10 [facility] Comment on above: Performed By: #### L 100.0100, L500.4050, L501.2450, L503.6005 #### [facility] [address] [place], [address] Neutrophils/100 WBC (Bld) 83.4 % High 47-70 [facility] Comment on above: Performed By: #### L 100.0100, L500.4050, L501.2450, L503.6005 #### [facility] [address] [place], [address] Nucleated RBC (Bld) [#/Vol] 0 10*3/uL Normal 0-5 [facility] Comment on above: Performed By: #### L 100.0100, L500.4050, L501.2450, L503.6005 #### [facility] [address] [place], [address] Platelet mean volume (Bld) [Entitic vol] 9.0 fL Normal 6.2-12.0 [facility] Comment on above: Performed By: #### L 100.0100, L500.4050, L501.2450, L503.6005 #### [facility] [address] [place], [address] Platelets (Bld) [#/Vol] 205 10*3/uL Normal 150-450 [facility] Comment on above: Performed By: #### L 100.0100, L500.4050, L501.2450, L503.6005 #### [facility] [address] [place], [address] RBC (Bld) [#/Vol] 3.69 10*6/uL Low 4.6-6.[address] [facility] Comment on above: Performed By: #### L 100.0100, L500.4050, L501.2450, L503.6005 #### [facility] [address] [place], [address] RDW SD 49.2 fl High 35.1-43.9 [facility] Comment on above: Performed By: #### L 100.0100, L500.4050, L501.2450, L503.6005 #### [facility] [address] [place], [address] WBC (Bld) [#/Vol] 14.9 10*3/uL High 4.4-11.[address] [facility] Comment on above: Performed By: #### L 100.0100, L500.4050, L501.2450, L503.6005 #### [facility] [address] [place], [address] CPK Total, Creatine Kinaseon 05-22-2024 CPK TOTAL 9519 U/L High 39-308 [facility] Comment on above: Performed By: #### L 100.0100, L500.4050, L501.2450, L503.6005 #### [facility] Laboratory [address] [place], [address] Chest 1 View (Portable)on Chest 1 View (Portable) [facility] Imaging Services [address] [place] [address] Chest 1 View (Portable) MR#: [id number] Acct: [id number] Name: ZACHARY SHORT Rep #: [id number] : 1945 M 78 From: Marielena Roper MD PCP: Dr. Ailin Pierson MD Status: [facility] ER Study: Chest 1 View (Portable) Date of Exam: 05/22/24 Exam# [id number] Ordering Dr: Mich Stokes MD [id number] INDICATION: fever EXAMINATION/TECHNIQUE: X-RAY - XR Chest 1 View COMPARISON: ) Shoulder dated April 08, 2004 FINDINGS: LINES/DEVICES: None. LUNGS: No consolidation, edema or effusion. No pneumothorax. MEDIASTINUM AND CARDIOVASCULAR STRUCTURES: Cardiac silhouette not enlarged. Central airways and mediastinal contour are unremarkable. 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 RAD/Chest 1 View (Portable) IMPRESSION: No radiographic evidence of acute cardiopulmonary disease. Electronically Signed: Marielena Roper MD at 16:13 EST , CC: Dr. Ailin Pierson MD; Dr. Mich Stokes MD Slitter Cut Off Operator: Signed Normal [facility] Comprehensive Metabolic Prof nvon 05-22-2024 Albumin [Mass/Vol] 3.2 g/dL Normal 3.2-5.0 [facility] Comment on above: Performed By: #### L 100.0100, L500.4050, L501.2450, L503.6005 #### [facility] [address] [place], [address] Albumin/Globulin [Mass ratio] 0.7 {ratio} Low 0.9-2.4 [facility] Comment on above: Performed By: #### L 100.0100, L500.4050, L501.2450, L503.6005 #### [facility] [address] [place], [address] ALK P 79 U/L Normal 45-117 [facility] Comment on above: Performed By: #### L 100.0100, L500.4050, L501.2450, L503.6005 #### [facility] [address] [place], [address] ALT [Catalytic activity/Vol] 75 U/L High 16-61 [facility] Comment on above: Performed By: #### L 100.0100, L500.4050, L501.2450, L503.6005 #### [facility] [address] [place], [address] AST [Catalytic activity/Vol] 248 U/L High 15-37 [facility] Comment on above: Performed By: #### L 100.0100, L500.4050, L501.2450, L503.6005 #### [facility] [address] [place], [address] Bilirubin [Mass/Vol] 0.60 mg/dL Normal 0.20-1.00 [facility] Comment on above: Result Comment: For patients on eltrombopag therapy, use of Dimension [place] TBIL is not recommended. Performed By: #### L 100.0100, L500.4050, L501.2450, L503.6005 #### [facility] [address] [place], [address] BUN/CRE 23.4 RATIO High 10-20 [facility] Comment on above: Performed By: #### L 100.0100, L500.4050, L501.2450, L503.6005 #### [facility] [address] [place], [address] CA,Total 9.2 mg/dL Normal 8.5-10.1 [facility] Comment on above: Performed By: #### L 100.0100, L500.4050, L501.2450, L503.6005 #### [facility] [address] [place], [address] Chloride [Moles/Vol] 107 mmol/L Normal 98-107 [facility] Comment on above: Performed By: #### L 100.0100, L500.4050, L501.2450, L503.6005 #### [facility] [address] [place], [address] CO2 [Moles/Vol] 26.0 mmol/L Normal 21.0-32.0 [facility] Comment on above: Performed By: #### L 100.0100, L500.4050, L501.2450, L503.6005 #### [facility] [address] [place], [address] Creatinine [Mass/Vol] 0.94 mg/dL Normal 0.70-1.30 [facility] Comment on above: Result Comment: The validity of the calculated GFR GFRAA in patients over 70 years has not been determined. Clinical correlation is essential. Performed By: #### L 100.0100, L500.4050, L501.2450, L503.6005 #### [facility] [address] [place], [address] ECRCL 81.06 ml/min Normal [facility] Comment on above: Performed By: #### L 100.0100, L500.4050, L501.2450, L503.6005 #### [facility] [address] [place], [address] EST GFR - AA 99 mL/min Normal >60 [facility] Comment on above: Result Comment: Afri can Guinean GFR Calc Performed By: #### L 100.0100, L500.4050, L501.2450, L503.6005 #### [facility] [address] [place], [address] GAP 6 Normal 5-15 [facility] Comment on above: Performed By: #### L 100.0100, L500.4050, L501.2450, L503.6005 #### [facility] [address] [place], [address] GFR/1.73 sq M.predicted among non-blacks MDRD (S/P/Bld) [Vol rate/Area] 82 mL/min/{1.73_m2} Normal >60 [facility] Comment on above: Result Comment: Non- GFR Calc Performed By: #### L 100.0100, L500.4050, L501.2450, L503.6005 #### [facility] [address] [place], [address] Globulin (S) [Mass/Vol] 4.6 g/dL High 2.2-4.2 [facility] Comment on above: Performed By: #### L 100.0100, L500.4050, L501.2450, L503.6005 #### [facility] [address] [place], [address] Glucose [Mass/Vol] 105 mg/dL Normal 74-106 [facility] Comment on above: Result Comment: Fast ing Glucose result from 100 to 125 mg/dL suggests IMPAIRED HOMEOSTASIS per A.D.A. criteria. Performed By: #### L 100.0100, L500.4050, L501.2450, L503.6005 #### [facility] [address] [place], [address] Potassium [Moles/Vol] 4.2 mmol/L Normal 3.5-5.1 [facility] Comment on above: Performed By: #### L 100.0100, L500.4050, L501.2450, L503.6005 #### [facility] [address] [place], [address] Sodium [Moles/Vol] 140 mmol/L Normal 136-145 [facility] Comment on above: Performed By: #### L 100.0100, L500.4050, L501.2450, L503.6005 #### [facility] [address] [place], [address] T PROT 7.8 g/dL Normal 6.4-8.2 [facility] Comment on above: Performed By: #### L 100.0100, L500.4050, L501.2450, L503.6005 #### [facility] [address] [place], [address] Urea nitrogen [Mass/Vol] 22 mg/dL High 7-18 [facility] Comment on above: Performed By: #### L 100.0100, L500.4050, L501.2450, L503.6005 #### [facility] [address] [place], [address] Elbow min 3 Viewson 05-22-20 Elbow min 3 Views [facility] Imaging Services [address] [place] [address] Elbow min 3 Views MR#: [id number] Acct: [id number] Name: ZACHARY SHORT Rep #: [id number] : 1945 M 78 From: Marielena Roper MD PCP: Dr. Ailin Pierson MD Status: REG ER Study: Elbow min 3 Views Date of Exam: 05/22/24 Exam# [id number] Ordering Dr: Mich Stokes MD [id number] INDICATION: fall EXAMINATION/TECHNIQUE: X-RAY - RIGHT XR Elbow Min 3 Views COMPARISON: No relevant prior comparison study available FINDINGS: SOFT TISSUES: No soft tissue swelling or gas. No radiopaque foreign body. BONES/JOINTS: There are intra-articular lucencies within the coronoid process. No dislocation is visualized. Normal alignment. No sclerotic or destructive changes observed. RAD/Elbow min 3 Views IMPRESSION: Findings concerning for a nondisplaced coronoid process fracture. Electronically Signed: Marielena Roper MD at 16:18 EST , CC: Dr. Ailin Pierson MD; Dr. Mich Stokes MD Slitter Cut Off Operator: Signed Normal [facility] Emergency Department Summary on 05-22-2024 Emergency Department Summary [facility] Medical Records Department [address] [place] [address] Emergency Department Summary 05/22/24 MR#: [id number] Acct: [id number] Name: ZACHARY SHORT Rep #: [id number] : 1945 78 From: Mich Stokes MD PCP: Dr. Ailin Pierson MD Status:REG ER Location: ED HPI HPI - Fall History of Present Illness Chief Complaint: Fall Informant: patient and family ( adult son) Occured/Mechanism Occurred: Today and Yesterday Mechanism/Context: Yes same level fall and Yes slip Usually ambulates: Without assistance Pain/Injury Pain Location: head, pelvis, upper extremity and lower extremity Quality of Pain: Dull and Aching Current Severity: Mild Maximum Severity: Mild Associated Symptoms Associated Symptoms: Positive for Weakness; Negative for Parasthesias, Loss of function, Loss of consciousness or Amnesia Narrative Narrative: 78-year-old male past medical history of prostate cancer will review his trouble urinating often has to self cath. Also has a left knee and left shoulder replacement. Last night he was in bed probably around 7 or 8:00. He talked to his son right before that. And he was trying to get out of bed he can a rolled off the bed on the ground and was unable to get up after that time. Denies any LOC. Does state he hit the back of his head when he fell from the bed. He is not on blood thinners. He denies any neck or back pain. He denies any chest or abdominal pain. He also has some mild discomfort to his right elbow and left hip. States over the last several days he has had a fever as high as 1013. Denies any dysuria. No abdominal pain. No rash or significant cough. Prior similar symptoms: No Recent Illness/Hospitalization: No PFSH PFSH Medical History Hypertension Allergy/AdvReac Type Severity Reaction Status Date / Time No Known Allergies Allergy Verified 05/22/24 14:38 Surgical History Knee joint replacement status H/O shoulder replacement Shoulder joint replacement by other means Social History housing: house Smoking Status: Never smoker ROS ROS ED ROS Narrative Fever. Generalized weakness. Constitutional Constitutional ED: Reports fever(s) Eyes Eyes: Denies blurry vision ENT ENT ED: Denies ear pain Cardiovascular Cardiovascular: Denies chest pain Respiratory/Chest Respiratory/Chest: Denies cough or dyspnea Gastrointestinal Gastrointestinal: Denies abdominal pain Genitourinary Genitourinary ED: Denies dysuria or hematuria Musculoskeletal Musculoskeletal: Denies arthralgias Integumentary Denies abscess Neurologic Neurologic: Denies headache(s) Psychiatric Psychiatric: Denies anxiety Endocrine Endocrinology: Denies polydipsia or polyphagia Hematologic/Lymphatic Hematologic/Lymphatic: Denies easy bleeding or easy bruising Allergic/Immunologic Allergic/Immunologic ED: Denies mouth swelling, tongue swelling or urticaria EXAM Physical Exam Narrative Exam Narrative: 78-year-old male lying flat in bed. Son present in the room also one of her nurses. Vital signs are stable currently is afebrile 98.4. He does not look septic or toxic. Currently he is in no distress. H EENT exam pupils round react light. Moist mucous membranes. There is no hematoma or laceration to his scalp. No trauma to his face. Neck and is nontender. Trachea midline. Lungs clear to auscultation bilaterally. Heart regular rhythm rate about 75 no murmur. Chest wall ribs nontender. Abdomen soft nontender. Nursed is already straight cath patient. He is put out about 800 cc of yellow urine. No blood is not cloudy. He is moving all 4 extremities. No gross bony deformity. Mild tenderness to his right elbow and left lateral hip. No deformity. Normal radio artist strength. Shoulders are nontender. He is able to flex and extend both knees dorsi and plantarflex both ankles. There is no shortening or rotation. Skin unremarkable. He is awake and alert. He knows he is in the hospital. He knows his April is tomorrow. He is answering questions and following commands. Const Vital Signs: 05/22/24 14:35 05/22/24 14:38 05/22/24 16:34 Temperature 98.4 F Temperature Source Oral Pulse Rate 76 Respiratory Rate 18 Respiratory Effort Normal Non-Labored Respiratory Depth Normal Respiratory Pattern Normal Blood Pressure 106/88 H Blood Pressure Mean 94 Pulse Ox 98 99 Oxygen Delivery Method Room Air Room Air 05/22/24 16:34 Temperature Temperature Source Pulse Rate 77 Respiratory Rate 16 Respiratory Effort Respiratory Depth Respiratory Pattern Blood Pressure 124/78 H Blood Pressure Mean 93 Pulse Ox 99 Oxygen (more content not included)... Normal [facility] Epithelial cells.squamous LM Ql (Urine sed)Ordered By: Mich Stokes on 05-22-2024 Epithelial cells.squamous LM.HPF (Urine sed) [#/Area] 0 /[HPF] 0-5 [facility] Glucose Ql (U)Ordered By: Marcio Stokes on 05-22-2024 Urine Glucose (UA) Normal mg/dl Normal [facility] H AND P Exam - Hospitaliston 05-22-2024 H&P Exam - Hospitalist [facility] Medical Records Department [address] [place] [address] H P Exam - Hospitalist 05/22/24 1837 MR#: [id number] Acct: [id number] Name: ZACHARY SHORT Rep #: [id number] : 1945 78 From: Tyler Garcia MD PCP: Dr. Ailin Pierson MD Status:ADM IN Location: [facility] [id number] HPI - General General Date of Admission: 05/22/24 Date of Service: 05/22/24 Chief Complaint: Fall HPI Narrative ZACHARY SHORT, is a 78 M history of prostate cancer, prior history of kidney stones, who was brought to the ED following a fall at home. Per the patient, last night around 8 PM he tried to get out of his bed, tripped over and fell on his right side, and could not get up again. He could not dial the emergency services or call his family members. He laid there for almost 15 hours and was discovered today around noon. He had a bowel movement while laying down and also had few episodes of urinary incontinence. His 2 sons found him, and since then he is having severe pain in his right elbow and associated with pain over his right side of the face. Denies any fevers chills shortness of breath chest pain, nausea vomiting. In the ED, WBC 14.9, hemoglobin 12.9, platelet count 205, PT 16.1, sodium 140, potassium 4.2, BUN 22, creatinine 0.9, lactic acid 2.0, AST 248, ALT 75, total creatinine kinase 9519, albumin 3.2, urine protein 100, urine nitrate positive, leukoesterase 100, WBC 25-50 with 2+ bacteria. [facility] Medical History Hypertension Allergy/AdvReac Type Severity Reaction Status Date / Time No Known Allergies Allergy Verified 05/22/24 14:38 Surgical History Knee joint replacement status H/O shoulder replacement Shoulder joint replacement by other means Social History housing: house Smoking Status: Never smoker ROS Review of Systems ROS Unobtainable: Denies due to encephalopathy, due to endotracheal tube, due to mental condition, due to mental status or other Constitutional Constitutional: Reports fatigue Eyes Eyes: Denies blurry vision, change in eye color, change in vision, discharge from eye(s), double vision, erythema, eye pain, loss of vision or other ENT HEENT: Denies abnormal hearing, dysphagia, ear pain, epistaxis, headache(s), hearing loss, nasal congestion, nasal discharge, post nasal drip, sinus pressure, sore throat or other Cardiovascular Cardiovascular: Denies chest pain, claudication, dyspnea on exertion, edema, lightheadedness, orthopnea, palpitations, paroxysmal nocturnal dyspnea, rapid heart rate, syncope or other Respiratory/Chest Respiratory/Chest: Denies cough, dyspnea, excessive phlegm production, hemoptysis, productive cough, shortness of breath at rest, shortness of breath with exertion, wheezing or other Gastrointestinal Gastrointestinal: Denies abdominal pain, coffee ground emesis, constipation, diarrhea, dyspepsia, hematemesis, hematochezia, loose stools, melena, nausea, vomiting or other Genitourinary Genitourinary: Denies burning urination, difficulty urinating, dysuria, hematuria, nocturia, urinary frequency, urinary hesitancy, urinary incontinence, urinary urgency or other Musculoskeletal Musculoskeletal: Reports arthralgias, back pain and joint pain Neurologic Neurologic: Denies abnormal gait, abnormal speech, confusion, disequilibrium, dizziness, focal weakness, headache(s), numbness, paresthesias, seizure-like activity, seizures, syncope, tingling, tremor(s) or other Psychiatric Psychiatric: Denies anxiety, depression, homicidal ideation, suicidal ideation or other Endocrine Endocrinology: Denies change in body appearance, cold intolerance, excessive sweating, heat intolerance, polydipsia, polyuria or other Hematologic/Lymphatic Hematologic/Lymphatic: Denies anemia, easy bleeding, easy bruising, lymphadenopathy or other Allergic/Immunologic Allergic/Immunologic: Denies rhinitis, hives, eczemia, asthma or other Vital Signs Vital Signs Vital Signs: 05/22/24 14:35 05/22/24 14:38 05/22/24 16:34 Temperature 98.4 F Temperature Source Oral Pulse Rate 76 Respiratory Rate 18 Respiratory Effort Normal Non-Labored Respiratory Depth Normal Respiratory Pattern Normal Blood Pressure 106/88 H Blood Pressure Mean 94 Pulse Ox 98 99 Oxygen Delivery Method Room Air Room Air 05/22/24 16:34 05/22/24 18:00 05/22/24 18:14 Temperature 98.9 F Temperature Source Pulse Rate 77 67 67 Respiratory Rate 16 18 18 Respiratory Effort Respiratory Depth Respiratory Pattern Blood Pressure 124/78 H 106/68 106/68 Blood Pressure Mean 93 80 80 Pulse Ox 99 98 98 Oxygen Delivery Method Room Air Weight Weight: 2 (more content not included)... Normal [facility] HIP, UNI W/ Pelvis 2-3 Views on 05-22-2024 HIP, UNI W/ Pelvis 2-3 Views [facility] Imaging Services [address] [place] [address] HIP, UNI W/ Pelvis 2-3 Views MR#: [id number] Acct: [id number] Name: ZACHARY SHORT Rep #: [id number] : 1945 78 From: Marielena Roper MD PCP: Dr. Ailin Pierson MD Status: [facility] Study: HIP, UNI W/ Pelvis 2-3 Views Date of Exam: Exam# [id number] Ordering Dr: Mich Stokes MD [id number] INDICATION: fall EXAMINATION/TECHNIQUE: X-RAY - XR Hip Unilateral with Pelvis when performed; 2-3 Views COMPARISON: No relevant prior comparison study available FINDINGS: PELVIC BONES: No displaced fracture, destructive or sclerotic lesions. Note that overlapping bowel shadows may however obscure fine detail. Sacroiliac joints are unremarkable. No widening of the pubic symphysis. HIPS: There are degenerative changes of the head characterized by joint space narrowing, subchondral sclerosis and marginal osteophytes. SOFT TISSUES: No soft tissue swelling or gas. RAD/HIP, UNI W/ Pelvis 2-3 Views IMPRESSION: Degenerative changes of the hips. Electronically Signed: Marielena Roper MD at 16:23 EST , CC: Dr. Ailin Pierson MD; Dr. Mich Stokes MD Slitter Cut Off Operator: Signed Normal [facility] Influenza virus A and B and SARS-CoV-2 (COVID-19) and Respiratory syncytial virus RNAOrdered By: Mich Stokes on 05-22-2024 SARS-CoV-2 (COVID-19) RNA ANN-MARIE+probe Ql (Unsp spec) [facility] Ketones Test strip Ql (U)Ord ered By: Mich Stokes on 05-22-2024 Ketones Ql (U) 5 mg/dl High Negative [facility] Lactic Acidon 05-22-2024 Lactate [Moles/Vol] 3.0 mmol/L Invalid Interpretation Code 0.4-1.9 [facility] Comment on above: Result Comment: Crit ical Result(s) Called at: 21:07:00 05/22/2024 by: GARRISON MAN. Results read back by Pasha Gee Performed By: #### L 503.6005 ####[facility] [id number] [place], [place], [id number] Lactate [Moles/Vol] 2.0 mmol/L Normal 0.4-1.[address] [facility] Comment on above: Order Comment: Y Result Comment: Crit ical Result(s) Called at: 16:09:04 05/22/2024 by: Adrian Robison to Shar Ireland. Results read back by same. Performed By: #### L 100.0100, L500.4050, L501.2450, L503.6005 #### [facility] [address] [place], [address] Lactic acid measurementOrder ed By: Mich Stokes on 05-22-2024 Lactate [Moles/Vol] 3.0 mmol/L High 0.4-2.[address] [facility] Comment on above: Critical Result(s) C alled at: 21:07:00 05/22/2024 by: GARRISON MAN. Results read back by Pasha Gee M100.678on 05-22-2024 M100.678 Pending SARS-CoV-2 (COVID 19) Negative INFLUENZA A Negative INFLUENZA B Negative RSV PCR Negative Normal [facility] Comment on above: Performed By: #### L 100.0100, L500.4050, L501.2450, L503.6005 #### [facility] [address] [place], [address] Microscopic analysis of urin e for red blood cells (RBC)Ordered By: Mich Stokes on 05-22-2024 Urine RBC 5-10 SEEN /hpf 0-5 [facility] Mucus LM Ql (Urine sed)Order ed By: Mich Stokes on 05-22-2024 Mucus Ql (Urine sed) 1+ /hpf [facility] Nitrite Test strip Ql (U)Ord ered By: Mich Stokes on 05-22-2024 Nitrite Ql (U) Positive High Negative [facility] Partial Thromboplast Timeon 05-22-2024 aPTT Coag (Bld) [Time] 33.5 s Normal 24.1-36.2 [facility] Comment on above: Performed By: #### L 100.0100, L500.4050, L501.2450, L503.6005 #### [facility] [address] [place], [address] Protein Test strip Ql (U)Ord ered By: Mich Stokes on 05-22-2024 Protein Ql (U) 100 mg/dl High Negative [facility] Prothrombin Time w/INRon INR Coag (PPP) [Relative time] 1.3 {INR} Normal [facility] Comment on above: Performed By: #### L 100.0100, L500.4050, L501.2450, L503.6005 #### [facility] [address] [place], [address] PT Coag (PPP) [Time] 16.1 s High 11.7-14.9 [facility] Comment on above: Performed By: #### L 100.0100, L500.4050, L501.2450, L503.6005 #### [facility] [address] [place], [address] Sinus/Facial Boneon 05-22-20 Sinus/Facial Bone [facility] Imaging Services [address] [place] [address] Sinus/Facial Bone MR#: [id number] Acct: [id number] Name: ZACHARY SHORT Rep #: [id number] : 1945 M 78 From: Marielena Roper MD PCP: Dr. Ailin Pierson MD Status: [facility] Study: Sinus/Facial Bone Date of Exam: 05/22/24 Exam# [id number] Ordering Dr: Mich Stokes MD [id number] INDICATION: FALL, INJURY EXAMINATION: CT FACIAL BONES - CT Maxillofacial W/O Contrast Injection TECHNIQUE: Helically acquired images were obtained of the facial bones. A radiation dose optimization technique was used for this scan. The protocol utilizes one or more of the following dose reduction techniques: automated exposure control, adjustment of mA and/or kV according to patient size,and/or use of iterative reconstruction technique. IV Contrast dosage and agent: None. RADIATION DOSAGE (If Supplied By Facility): CTDIvol = ( 29.38 ) mGy, DLP = ( 562.15 ) mGycm COMPARISON: Prior study dated: Soft tissue neck CT dated July 21, 2007 FINDINGS: There is a separate dedicated CT report of the cervical spine. SOFT TISSUES: No focal subcutaneous swelling. No discrete fluid collections. VISUALIZED PARANASAL SINUSES: There is mild opacification of the paranasal sinuses. There is a stable cortical defect within the lateral wall of the left maxillary sinus. VISUALIZED MASTOID AIR CELLS: Clear. FACIAL BONES, MANDIBLE AND TMJs: No displaced facial bone fracture. No lytic or blastic abnormality. ORBITAL CONTENTS: Both globes, extraocular muscles and retrobulbar fat appear unremarkable. CT/Sinus/Facial Bone IMPRESSION: No acute osseous injury. Mild pansinusitis. Electronically Signed: Marielena Roper MD at 16:12 EST , CC: Dr. Ailin Pierson MD; Dr. Mich Stokes MD Slitter Cut Off Operator: Signed Normal [facility] Spine Cervical without Contr ason 05-22-2024 Spine Cervical without Contras [facility] Imaging Services [address] [place] [address] Spine Cervical without Contras MR#: [id number] Acct: [id number] Name: ZACHARY SHORT Rep #: [id number] : 1945 78 From: Marielena Roper MD PCP: Dr. Ailin Pierson MD Status: REG ER Study: Spine Cervical without Contras Date of Exam: 07/23/23 Exam# [id number] Ordering Dr: Mich Stokes MD [id number] INDICATION: FALL,INJURY EXAMINATION: CT CERVICAL SPINE - CT Spine Cervical W/O Contrast Injection TECHNIQUE: Helically acquired images were obtained of the cervical spine. 2D reformatted images were reviewed. The protocol utilizes one or more of the following dose reduction techniques: automated exposure control, adjustment of mA and/or kV according to patient size,and/or use of iterative reconstruction technique. IV Contrast dosage and agent: None. RADIATION DOSAGE (If Supplied By Facility): CTDIvol = ( 25.59 ) mGy, DLP = ( 500.06 ) mGycm COMPARISON: CT of the neck soft tissues FINDINGS: VERTEBRAE: There is evidence of prior anterior fusion of C4-C7 with a plate and screw fixation device. There is multilevel facet hypertrophy. No fracture or traumatic subluxation. No discrete lytic or blastic abnormality. Normal alignment. Normal craniocervical junction and cervicothoracic junction. DISCS and SPINAL CANAL: There is multilevel degenerative disc disease. No critical stenosis. NECK SOFT TISSUES: No prevertebral soft tissue swelling. There is no cervical adenopathy. LUNG APICES: Clear. CT/Spine Cervical without Contras IMPRESSION: Multilevel degenerative changes. Status post anterior fusion of C4-C7. Electronically Signed: Marielena Roper MD at 16:04 EST , CC: Dr. Ailin Pierson MD; Dr. Mich Stokes MD Slitter Cut Off Operator: Signed Normal [facility] Total creatine kinase measur ementOrdered By: Mich Stokes on 05-22-2024 CK [Catalytic activity/Vol] 9519 U/L High 39-308 [facility] Urinalysis, Completeon 05-22 BACTERIA 2+ /hpf Normal None Seen [facility] Comment on above: Order Comment: COLLE CTOR TO SPECIFY Performed By: #### L 100.0100, L500.4050, L501.2450, L503.6005 #### [facility] [address] [place], [address] Mucus Ql (Urine sed) 1+ /hpf Normal [facility] Comment on above: Order Comment: COLLE CTOR TO SPECIFY Performed By: #### L 100.0100, L500.4050, L501.2450, L503.6005 #### [facility] [address] [place], [address] RBC 5-10 SEEN Normal 0-5 [facility] Comment on above: Order Comment: LEAH CTOR TO SPECIFY Performed By: #### L 100.0100, L500.4050, L501.2450, L503.6005 #### [facility] [address] [place], [address] WBC 25-50 SEEN Normal 0-5 [facility] Comment on above: Order Comment: LEAH CTOR TO SPECIFY Performed By: #### L 100.0100, L500.4050, L501.2450, L503.6005 #### [facility] [address] [place], [address] EPI,SQUAMOUS 0 SEEN Normal 0-5 [facility] Comment on above: Order Comment: LEAH CTOR TO SPECIFY Performed By: #### L 100.0100, L500.4050, L501.2450, L503.6005 #### [facility] [address] [place], [address] Urine blood detectionOrdered By: Mich Stokes on 05-22-2024 Urine Occult Blood 250 /ul High Negative [facility] Urine clarityOrdered By: Harish Stokes on 05-22-2024 Clarity (U) Sl. Cloudy Clear [facility] Urine color determinationOrd ered By: Mich Stokes on 05-22-2024 Color (U) Yellow Yellow [facility] Urine cultureOrdered By: Bonny Gaona on 05-22-2024 Bacteria identified Cx Nom (U) Enterococcus faecalis Abnormal [facility] Bacteria identified Cx Nom (U) Enterobacter cloacae complex Abnormal [facility] Urine leukocyte esterase det ection by dipstickOrdered By: Mich Stokes on 05-22-2024 Leukocyte esterase Test strip Ql (U) 100 /ul High Negative [facility] Urine pHOrdered By: Mich dougherty on 05-22-2024 pH (U) 5.0 [pH] 5.0 - 8.0 [facility] Urine sediment bacteria coun t by microscopy (number/high power field)Ordered By: Mich Stokes on 05-22-2024 Bacteria LM.HPF (Urine sed) [#/Area] 2 /[HPF] None Seen [facility] Urine specific gravity measu rementOrdered By: Mich Stokes on 05-22-2024 Specific gravity (U) [Rel density] 1.025 1.002-1.030 [facility] Urobilinogen Ql (U)Ordered B y: Mich Stokes on 05-22-2024 Urine Urobilinogen Normal mg/dl Normal [facility] White blood cell countOrdere d By: Mich Stokes on 05-22-2024 Urine WBC 25-50 SEEN /hpf 0-5 [facility] aPTT Coag (PPP) [Time]Ordere d By: Mich Stokes on 05-22-2024 aPTT Coag (Bld) [Time] 33.5 s 24.1-36.2 [facility] CNOVon 05-16-2024 CNOV Office Visit (UROLMD ) -- ZACHARY SHORT ([id number]) 1945 M Date Time Provider Department 05/16/24 10:00 AM SARAH WARE UROFRIEDA During your visit today, we recorded the following information about you: Weight Height 109.3 kg 1.829 m Sarah Ware, WEDDING DECORATOR.DIRECTOR OF COMPENSATION 07/24/2024 1:09 PM Addendum Zachary Short is a 78 year old male who presents today for a follow up for Patient presents with: ER F/U Urinary Retention CHIEF COMPLAINT AND HISTORY OF PRESENT ILLNESS CC: urine retention 78 year old male with a history of prostate cancer, lisbeth 3+4=7 MRI fusion on 11/06/2023, ipsa 12.32, presents for ER follow up, he reports that he was changing his furnace filter and fell at home about 3 weeks ago, from that time on he had lower back pain, he presented to the [place] ER on 05/09/2024. Treated with pain medication? which caused constipation then he had a difficult time emptying his bladder. Voiding in small amounts. 7 days ago the pain increased so he went to the ER. Mahoney was placed and has been draining a large amount of urine. He has increased his fluids intake He has not taken pain meds in 2 weeks He has been taking flomax 0.4 mg daily Radiation oncology consult 12/2023, patient decided not to receive treatment Latest Ref Rng 10/06/2016 03/23/2022 03/25/2023 05/10/2023 08/18/2023 PSA Screening <2.60 ng/mL 2.58 9.18 (H) PSA <2.60 ng/mL 14.20 (H) 12.17 (H) 17.02 (H) NM bone scan negative 12/09/2023 11/21/2023 pathology FINAL DIAGNOSIS A. Prostate, left lesion #1, biopsy: - Prostatic adenocarcinoma Lisbeth score 3+4 = 7 (grade group 2) involving approximately 4 of 6 fragmented cores (35%, 5%, 50%, 50%; 8 mm total tumor length). 20% pattern 4. B. Prostate, left lateral apex, biopsy: - Benign prostatic tissue. C. Prostate, left lateral mid, biopsy: - Benign prostatic tissue. D. Prostate, left lateral base, biopsy: - Benign prostatic tissue. E. Prostate, right lateral apex, biopsy: - Benign prostatic tissue. F. Prostate, right lateral mid, biopsy: - Benign prostatic tissue. G. Prostate, right lateral base, biopsy: - Benign prostatic tissue. VITALS: Height 182.9 cm (6'), weight 109.3 kg (241 lb). ALLERGIES: Patient has no known allergies. MEDICATIONS: Current Outpatient Medications Medication Sig Dispense Refill ramelteon (ROZEREM) 8 mg tablet Take 1 tablet by mouth daily at bedtime. 30 tablet 1 azelastine 0.1% nasal spray Use 1 [place] in each nostril two times a day. 30 mL 1 lisinopril-hydroCHLOROthia zide (ZESTORETIC) 10-12.5 mg per tablet Take 1 tablet by mouth once daily. 90 tablet 3 tamsulosin (FLOMAX) 0.4 mg Take 1 capsule by mouth daily at bedtime. 90 capsule 3 ergocalciferol 50,000 unit capsule (VITAMIN D2, DRISDOL) Take 1 capsule by mouth two times a week. TO BE TAKEN ORALLY DIRECTED. Take 1 tablet by mouth twice weekly [id number], then decrease to 1 tablet weekly. 8 capsule 5 naproxen (NAPROSYN) 500 mg tablet Take 1 tablet by mouth two times a day as needed (for pain/inflammation). Take with food. 30 tablet 1 polyethylene glycol 3350 (MIRALAX) 17 gram/dose powder Take 17 g by mouth once daily. Dissolve dose in 4 - 8 ounces of liquid and take as directed. 510 g 0 aspirin, enteric coated (ASPIRIN, ENTERIC COATED) 81 mg EC tablet Take 1 tablet by mouth once daily. No current facility-administered medications for this visit. 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 Only seasonal now PAST SURGICAL HISTORY: PAST SURGICAL HISTORY Procedure Laterality Date ARTHROPLASTY HEMIARTHROPLASTY 09/10/2011 left shoulder Ari arthroplasty ARTHROPLASTY HEMIARTHROPLASTY 03/07/2012 left shoulder revision COLONOSCOPY AND POLYPECTOMY 08/23/11 repeat 5 years COLONOSCOPY FLX DX W/COLLJ SPEC WHEN PFRMD 10/19/2016 Normal colonoscopy-family history-5 year follow-up NECK 07/17/2007 Anterior cervical discectomy allograft fusion on c-4,c-5,c-6 FAMILY HISTORY: FAMILY HISTORY Problem Relation Age of Onset Colon Cancer Father Cancer Mother metastatic melanoma All histories reviewed on this date 05/16/2024: Yes REVIEW OF SYSTEMS: CONSTITUTIONAL: Patient reports no recent fever or weight loss CARDIOVASCULAR: Negative for chest pain. Al (more content not included)... Normal [facility] Jluis 05-14-2024 [facility] Telephone (INTMWS) -- ZACHARY SHORT ([id number]) 1945 M Date Time Provider Department 05/14/24 AILIN PIERSON During your visit today, we recorded the following information about you: Hari Rodriguez, LAY 05/14/2024 9:16 AM Signed Pt called in and reports he was in [facility] ER on Tuesday and they placed a urinary mahoney. He states he has prostate cancer and he isn't going to have radiation or chemo for it, and he was told he was too old to have his prostate removed. Pt states he was having urinary retention and was in a lot of pain due to it. They only gave him a leg bag, so it fills up really fast and it worries him at bed time. He said the people in the ER told him that Urology would give him a better bag and show him how to take care of it. I told the Pt to make sure to clean the tubing at the tip of his penis and to move from his penis away down the tubing, to not bring infection toward himself. I told him to use a wash cloth with soap and water, or wet wipes and to clean it at least once to twice a day. Pt states they told him to see Dr Pierson and Urology. He said he doesn't know if he needs to see Dr Pierson or just go to Urology. He said [facility] ER was telling him to see Dr Soto. Pt sates he has seen Dat KOHLER here and he isn't 'overjoyed' with him, the Pt said he isn't aggressive enough. The Pt was asking if we had another urologist here at [facility] and I told him we had Kt Collins NP, but he was asking for a doctor. He states he has seen Dr Blanton, but said he told him that he is a surgeon and not a urologist. He didn't know if Dr Pierson thought he should see Dr Soto. He was told in the ER that he may have to have the mahoney for the rest of his life. I didn't make an appointment with Dr Pierson, because Pt wanted provider him to come in or to just got to Urology. I told him if anyone removed the mahoney it would be urology. Please call and advise. Kayla Betancourt APRN.CNP 05/14/2024 9:41 AM Signed He needs to see urology. Please let us know who to send consult to? Thank you Kayla Betancourt APRN.Hari Navarrete RN 05/14/2024 11:25 AM Signed Called and left a voicemail for the Patient to call back and ask for a nurse to receive the providers message. LAY Reese M Robin, RN 05/14/2024 11:49 AM Signed Pt returned call. Pt asking provider to send referral to Dr. Soto, urology at [facility]. Kayla Betancourt APRN.CNP 05/14/2024 12:27 PM Signed Order placed. Please fax as requested and update patient. Thank you Kayla Betancourt APRN.Roxana Woodard MA 05/14/2024 2:35 PM Signed Referral faxed as requested. Allergies As of Date: 05/14/2024 (No Known Allergies) Date Reviewed: 04/23/2024 Reviewed by: Carley Khan MA - Fully Assessed Reason for Visit: Patient Update [1234] Patient Question [1477] Primary Visit Diagnosis:Prostate cancer (HCC) [C61] Other Visit Diagnosis:Unable to void [R33.9] Order(s):CONSULT TO UROLOGY [9041] Order #: [id number]: 1 FUTURE Prescriptions as of 05/14/2024 - ramelteon (ROZEREM) 8 mg tablet Take 1 tablet by mouth daily at bedtime. - azelastine 0.1% nasal spray Use 1 [place] in each nostril two times a day. - lisinopril-hydroCHLOROthia zide (ZESTORETIC) 10-12.5 mg per tablet Take 1 tablet by mouth once daily. - tamsulosin (FLOMAX) 0.4 mg Take 1 capsule by mouth daily at bedtime. - ergocalciferol 50,000 unit capsule (VITAMIN D2, DRISDOL) Take 1 capsule by mouth two times a week. TO BE TAKEN ORALLY DIRECTED. Take 1 tablet by mouth twice weekly [id number], then decrease to 1 tablet weekly. - naproxen (NAPROSYN) 500 mg tablet Take 1 tablet by mouth two times a day as needed (for pain/inflammation). Take with food. - polyethylene glycol 3350 (MIRALAX) 17 gram/dose powder Take 17 g by mouth once daily. Dissolve dose in 4 - 8 ounces of liquid and take as directed. - aspirin, enteric coated (ASPIRIN, ENTERIC COATED) 81 mg EC tablet Take 1 tablet by mouth once daily. Problem List As Of Date 05/14/2024 Noted Resolved Mixed hyperlipidemia [E78.2] 11/09/2005 Unspecified Asthma [J45.909] 11/09/2005 Personal history of other malignant neoplasm of*03/31/2006 Cervical Spondylosis without Myelopathy [M47.81* Family History of Malignant Neoplasm of Gastroi*05/16/2008 Primary Localized Osteoarthrosis, Shoulder Quin*05/16/2008 ACTINIC KERATOSIS (Premalignant AK) [L57.0] 05/17/2008 Other Seborrheic Keratosis [L82.1] 05/17/2008 09/15/2009 ACTINIC DAMAGE///CHR SOLAR SKIN DAMAGE NOS [L57*05/17/2008 09/15/2009 Rosacea [L71.9] 05/17/2008 Primary hypertension [I10] 09/15/2009 Obesity [E66.9] 09/15/2009 Irritated//Inflamed Seborrheic Keratosis [L82.0]09/23/2009 Solar lentigo [L81.4] 09/23/2009 Bladder Neck Obstruction [N32.0] 10/30/2009 Hypertrophy of prostate with urinary obstructio*05/28/2010 Arthritis of shoulder region, left, degenerati (more content not included)... Normal [facility] Abdomen/Pelvis W IV Cont ONL Yon 05-09-2024 Abdomen/Pelvis W IV Cont ONLY [facility] Imaging Services [address] [place] [address] [id number] Abdomen/Pelvis W IV Cont ONLY MR#: [id number] Acct: [id number] Name: ZACHARY SHORT Rep #: [id number] : 1945 M 78 From: Daphne sky MD PCP: Dr. Ailin Pierson MD Status: DEP ER Study: Abdomen/Pelvis W IV Cont ONLY Date of Exam: Exam# [id number] Ordering Dr: Marin Platt DO ADDENDUM by Dr. Daphne Duggan MD on 05/21/24 at 0803 ADDENDUM [id number] Small triangular juxtapleural nodules in the right lung base. Fleischner Society Guidelines suggest no follow-up is necessary for patients with a low or high risk of malignancy. Electronically Signed: Daphne Duggan MD at 8:03 EST Reading Location ID and State: [facility] / [place] Tel , Service support , 05/21/24802 Date cc: Dr. Marin Platt DO; Dr. Ailin Pierson MD * Signed ADDENDUM by Dr. Daphne Duggan MD on 05/21/[address]/Abdomen/Pelvis W IV Cont ONLY IMPRESSION: undefined 05/21/24 0810 Date cc: Dr. Marin Platt DO; Dr. Ailin Pierson MD * Signed [id number] HISTORY: Right lower quadrant abdominal pain. TECHNIQUE: Helically acquired images were obtained of the abdomen and pelvis after the intravenous administration of 100 mL Isovue-370. A radiation dose optimization technique was used for this scan. 499 images. COMPARISON: None. FINDINGS: LOWER CHEST: Small triangular juxtapleural nodules in the right lung base which do not require follow-up. BOWEL: Mild hiatal hernia. Bowel including appendix nondilated. No periappendiceal inflammation. Mild chronic diverticulosis without pericolonic inflammation. PERITONEUM: No significant ascites. LIVER: No enhancing mass. GALLBLADDER/BILIARY TREE: Gallbladder present. SPLEEN/PANCREAS: Homogeneous and nonenlarged. ADRENAL GLANDS: No nodules. KIDNEYS: No hydronephrosis. Simple cysts measuring up to 2.5 cm on the left; follow-up not indicated. VESSELS: No abdominal aortic aneurysm. Mild atherosclerosis of the abdominal aorta and its major branches. PELVIC ORGANS: 5.3 x 6.3 cm prostate gland. Distended urinary bladder. BONES: Degenerative change. CT/Abdomen/Pelvis W IV Cont ONLY IMPRESSION: Mild hiatal hernia. Unremarkable appendix. Colonic diverticulosis without acute diverticulitis. Mildly enlarged prostate gland with distention of the urinary bladder, possible bladder outlet obstruction. Electronically Signed: Daphne Duggan MD at 14:06 EST Reading Location ID and State: [facility] / [place] Tel , Service support , CC: Dr. Marin Platt DO; Dr. Ailin Pierson MD Slitter Cut Off Operator: Signed Normal [facility] Absolute neutrophil countOrd ered By: Marin Platt on 05-09-2024 Neutrophils (Bld) [#/Vol] 5.6 10*3/uL 2.0-7.7 [facility] Albumin to globulin ratioOrd ered By: Marin Platt on 05-09-2024 Albumin/Globulin [Mass ratio] 1.3 {ratio} 0.9-2.4 [facility] Basophil percentageOrdered B y: Marin Platt on 05-09-2024 Basophils/100 WBC (Bld) 0.6 % 0-1 [facility] Bilirubin Test strip Ql (U)O rdered By: Marin Platt on 05-09-2024 Bilirubin Ql (U) Negative Negative [facility] Bilirubin, totalOrdered By: Marin Platt on 05-09-2024 Bilirubin [Mass/Vol] 0.70 mg/dL 0.20-1.00 [facility] Comment on above: For patients on eltr ombopag therapy, use of Dimension [place] TBIL is not recommended. Blood urea nitrogen (BUN)/cr eatinine ratioOrdered By: Marin Platt on 05-09-2024 Urea nitrogen/Creatinine [Mass ratio] 18.4 mg/mg 10- [facility] CBC W/Diff, Automatedon 04-29 Absolute Lymph 1.44 X10 3/uL Normal 0.83-4.51 [facility] Comment on above: Performed By: #### L 100.0100, L500.4050, L501.2450, L503.6005 #### [facility] [address] [place], [address] Absolute Neut 5.6 X10 3/uL Normal 2.0-7.7 [facility] Comment on above: Performed By: #### L 100.0100, L500.4050, L501.2450, L503.6005 #### [facility] [address] [place], [address] Basophils/100 WBC (Bld) 0.6 % Normal 0-1 [facility] Comment on above: Performed By: #### L 100.0100, L500.4050, L501.2450, L503.6005 #### [facility] [address] [place], [address] Eosinophils/100 WBC (Bld) 1.6 % Normal 0-5 [facility] Comment on above: Performed By: #### L 100.0100, L500.4050, L501.2450, L503.6005 #### [facility] [address] [place], [address] Erythrocyte distribution width (RBC) [Ratio] 12.8 % Normal 11.6-14.6 [facility] Comment on above: Performed By: #### L 100.0100, L500.4050, L501.2450, L503.6005 #### [facility] [address] [place], [address] Hematocrit (Bld) [Volume fraction] 37.2 % Low 40-54 [facility] Comment on above: Performed By: #### L 100.0100, L500.4050, L501.2450, L503.6005 #### [facility] [address] [place], [address] Hemoglobin (Bld) [Mass/Vol] 13.0 g/dL Normal 13.0-16.5 [facility] Comment on above: Performed By: #### L 100.0100, L500.4050, L501.2450, L503.6005 #### [facility] [address] [place], [address] IG% 0.400 Normal 0.0-0.9 [facility] Comment on above: Result Comment: IG% - Immature Granulocytes (promyelocytes, myelocytes and metamyelocytes) > 1% indicates that a LEFT SHIFT is Present. Performed By: #### L 100.0100, L500.4050, L501.2450, L503.6005 #### [facility] [address] [place], [address] Lymphocytes/100 WBC (Bld) 18.1 % Low 19-41 [facility] Comment on above: Performed By: #### L 100.0100, L500.4050, L501.2450, L503.6005 #### [facility] [address] [place], [address] MCH (RBC) [Entitic mass] 35.6 pg High 27.0-32.0 [facility] Comment on above: Performed By: #### L 100.0100, L500.4050, L501.2450, L503.6005 #### [facility] [address] [place], [address] MCHC (RBC) [Mass/Vol] 34.9 g/dL Normal 32-36 [facility] Comment on above: Performed By: #### L 100.0100, L500.4050, L501.2450, L503.6005 #### [facility] [address] [place], [address] MCV (RBC) [Entitic vol] 101.9 fL High 80-94 [facility] Comment on above: Performed By: #### L 100.0100, L500.4050, L501.2450, L503.6005 #### [facility] [address] [place], [address] Monocytes/100 WBC (Bld) 8.3 % Normal 0-10 [facility] Comment on above: Performed By: #### L 100.0100, L500.4050, L501.2450, L503.6005 #### [facility] [address] [place], [address] Neutrophils/100 WBC (Bld) 71.0 % High 47-70 [facility] Comment on above: Performed By: #### L 100.0100, L500.4050, L501.2450, L503.6005 #### [facility] [address] [place], [address] Nucleated RBC (Bld) [#/Vol] 0 10*3/uL Normal 0-5 [facility] Comment on above: Performed By: #### L 100.0100, L500.4050, L501.2450, L503.6005 #### [facility] [address] [place], [address] Platelet mean volume (Bld) [Entitic vol] 9.2 fL Normal 6.2-12.0 [facility] Comment on above: Performed By: #### L 100.0100, L500.4050, L501.2450, L503.6005 #### [facility] [address] [place], [address] Platelets (Bld) [#/Vol] 175 10*3/uL Normal 150-450 [facility] Comment on above: Performed By: #### L 100.0100, L500.4050, L501.2450, L503.6005 #### [facility] [address] [place], [address] RBC (Bld) [#/Vol] 3.65 10*6/uL Low 4.6-6.[address] [facility] Comment on above: Performed By: #### L 100.0100, L500.4050, L501.2450, L503.6005 #### [facility] [address] [place], [address] RDW SD 47.8 fl High 35.1-43.9 [facility] Comment on above: Performed By: #### L 100.0100, L500.4050, L501.2450, L503.6005 #### [facility] [address] [place], [address] WBC (Bld) [#/Vol] 7.9 10*3/uL Normal 4.4-11.0 [facility] Comment on above: Performed By: #### L 100.0100, L500.4050, L501.2450, L503.6005 #### [facility] [address] [place], [address] Carbon dioxide measurementOr dered By: Marin Platt on 05-09-2024 CO2 [Moles/Vol] 24.0 mmol/L 21.0-32.0 [facility] Chloride measurementOrdered By: Marin Platt on 05-09-2024 Chloride [Moles/Vol] 103 mmol/L 98-107 [facility] Comprehensive Metabolic Prof ilon 05-09-2024 Albumin [Mass/Vol] 4.3 g/dL Normal 3.2-5.0 [facility] Comment on above: Performed By: #### L 100.0100, L500.4050, L501.2450, L503.6005 #### [facility] [address] [place], [address] Albumin/Globulin [Mass ratio] 1.3 {ratio} Normal 0.9-2.4 [facility] Comment on above: Performed By: #### L 100.0100, L500.4050, L501.2450, L503.6005 #### [facility] [address] [place], [address] ALK P 78 U/L Normal 45-117 [facility] Comment on above: Performed By: #### L 100.0100, L500.4050, L501.2450, L503.6005 #### [facility] [address] [place], [address] ALT [Catalytic activity/Vol] 32 U/L Normal 16-61 [facility] Comment on above: Performed By: #### L 100.0100, L500.4050, L501.2450, L503.6005 #### [facility] [address] [place], [address] AST [Catalytic activity/Vol] 24 U/L Normal 15-37 [facility] Comment on above: Performed By: #### L 100.0100, L500.4050, L501.2450, L503.6005 #### [facility] [address] [place], [address] Bilirubin [Mass/Vol] 0.70 mg/dL Normal 0.20-1.00 [facility] Comment on above: Result Comment: For patients on eltrombopag therapy, use of Dimension [place] TBIL is not recommended. Performed By: #### L 100.0100, L500.4050, L501.2450, L503.6005 #### [facility] [address] [place], [address] BUN/CRE 18.4 RATIO Normal 10-20 [facility] Comment on above: Performed By: #### L 100.0100, L500.4050, L501.2450, L503.6005 #### [facility] [address] [place], [address] CA,Total 9.6 mg/dL Normal 8.5-10.1 [facility] Comment on above: Performed By: #### L 100.0100, L500.4050, L501.2450, L503.6005 #### [facility] [address] [place], [address] Chloride [Moles/Vol] 103 mmol/L Normal 98-107 [facility] Comment on above: Performed By: #### L 100.0100, L500.4050, L501.2450, L503.6005 #### [facility] [address] [place], [address] CO2 [Moles/Vol] 24.0 mmol/L Normal 21.0-32.0 [facility] Comment on above: Performed By: #### L 100.0100, L500.4050, L501.2450, L503.6005 #### [facility] [address] [place], [address] Creatinine [Mass/Vol] 1.03 mg/dL Normal 0.70-1.30 [facility] Comment on above: Result Comment: The validity of the calculated GFR GFRAA in patients over 70 years has not been determined. Clinical correlation is essential. Performed By: #### L 100.0100, L500.4050, L501.2450, L503.6005 #### [facility] [address] [place], [address] EST GFR - AA 89 mL/min Normal >60 [facility] Comment on above: Result Comment: Afri can [place] GFR Calc Performed By: #### L 100.0100, L500.4050, L501.2450, L503.6005 #### [facility] [address] [place], [address] GAP 10 Normal 5-15 [facility] Comment on above: Performed By: #### L 100.0100, L500.4050, L501.2450, L503.6005 #### [facility] [address] [place], [address] GFR/1.73 sq M.predicted among non-blacks MDRD (S/P/Bld) [Vol rate/Area] 74 mL/min/{1.73_m2} Normal >60 [facility] Comment on above: Result Comment: Non- GFR Calc Performed By: #### L 100.0100, L500.4050, L501.2450, L503.6005 #### [facility] [address] [place], [address] Globulin (S) [Mass/Vol] 3.4 g/dL Normal 2.2-4.2 [facility] Comment on above: Performed By: #### L 100.0100, L500.4050, L501.2450, L503.6005 #### [facility] [address] [place], [address] Glucose [Mass/Vol] 117 mg/dL High 74-106 [facility] Comment on above: Result Comment: Fast ing Glucose result from 100 to 125 mg/dL suggests IMPAIRED HOMEOSTASIS per A.D.A. criteria. Performed By: #### L 100.0100, L500.4050, L501.2450, L503.6005 #### [facility] [address] [place], [address] Potassium [Moles/Vol] 3.8 mmol/L Normal 3.5-5.1 [facility] Comment on above: Performed By: #### L 100.0100, L500.4050, L501.2450, L503.6005 #### [facility] [address] [place], [address] Sodium [Moles/Vol] 137 mmol/L Normal 136-145 [facility] Comment on above: Performed By: #### L 100.0100, L500.4050, L501.2450, L503.6005 #### [facility] [address] [place], [address] T PROT 7.7 g/dL Normal 6.4-8.2 [facility] Comment on above: Performed By: #### L 100.0100, L500.4050, L501.2450, L503.6005 #### [facility] [address] [place], [address] Urea nitrogen [Mass/Vol] 19 mg/dL High 7-18 [facility] Comment on above: Performed By: #### L 100.0100, L500.4050, L501.2450, L503.6005 #### [facility] [address] [place], [address] Emergency Department Summary on 05-09-2024 Emergency Department Summary [facility] Medical Records Department [address] [place] [address] Emergency Department Summary 05/09/24 MR#: [id number] Acct: [id number] Name: ZACHARY SHORT Rep #: [id number] : 1945 78 From: Marin Platt DO PCP: Dr. Ailin Pierson MD Status:DEP ER Location: ED HPI History of Present Illness Chief Complaint: Abd Pain Narrative Narrative: Chief complaint and HPI: Abdominal pain. 78-year-old male with history of untreated prostate cancer and remote history of kidney stones presents for evaluation of abdominal pain. Patient states 2 weeks ago he fell and since then has been having abdominal pain. He states originally the pain started in the right side of his back but then radiated to the right lower quadrant. He describes it as sharp. Worse with palpation and movement. Patient endorses 3 days of constipation. He has been eating and drinking. He endorses good urination. He denies any fever, chills, shortness of breath, chest pain, nausea, vomiting, dysuria, testicular pain. Denies history abdominal surgeries. Review of systems: See HPI Medications: As listed on the chart Allergies: As listed on the chart PFSH: Per chart Vital signs: As listed on the chart. Reviewed. Physical exam: Gen: A O x3, NAD Head: Normocephalic, atraumatic Eyes: No sclera icterus, conjunctiva clear ENT: Moist mucous membranes Neck: Trachea midline, No JVD CV: RRR, no murmurs, no peripheral edema Resp: Lungs CTA BL, no w/r/c GI: Abd soft, non-distended, tender to palpation in the right lower quadrant and suprapubic region, + guarding, no rebound or rigidity : Circumcised penis. No penile tenderness or discharge. No penile or testicular swelling. Normal lie and position of the testicles. No testicular tenderness, masses, or skin changes. Cremasteric reflexes intact and equal bilaterally. No rashes. No palpable hernias. No CVA tenderness Musc: Full ROM, no deformity, no midline spinal tenderness , no bony step-off Skin: Warm, dry Neuro: Alert, oriented, grossly intact, sensation intact Psych: Cooperative, appropriate mood and affect [facility] History no medical history Allergy/AdvReac Type Severity Reaction Status Date / Time No Known Allergies Allergy Verified 05/09/24 10:30 Family History no significant family his Surgical History no surgical history Social History Smoking Status: Never smoker EXAM Physical Exam Const Vital Signs: 05/09/24 10:31 05/09/24 12:30 05/09/24 14:00 Temperature 98.1 F Temperature Source Oral Pulse Rate 113 H 81 91 Respiratory Rate 18 16 16 Blood Pressure 135/77 H 126/81 H 114/69 Blood Pressure Mean 96 96 84 Pulse Ox 99 98 98 Oxygen Delivery Method Room Air Room Air Room Air MDM MDM MDM Narrative Medical decision making narrative: 78-year-old male with history of untreated prostate cancer and remote history of kidney stones presents for evaluation of abdominal pain. Differential diagnosis includes but is not limited to urolithiasis, UTI, appendicitis, colitis, constipation, electrolyte abnormality. NS bolus, morphine, Zofran ordered. Abdominal pain workup ordered. CBC without leukocytosis or anemia. CMP relatively unremarkable without USAMA, transaminitis. Lactic unremarkable. Lipase unremarkable. UA negative for UTI. CT abdomen pelvis shows mild hiatal hernia. Unremarkable appendix. Colonic diverticulosis without acute diverticulitis. Mildly enlarged prostate gland with distention of the urinary bladder, possible bladder outlet obstruction. On reviewing the imaging myself, patient's bladder is distended. He has been urinating here in the emergency department. Patient urinated 600 mL however on postvoid bladder scan he still had a liter in his bladder. I suspect his pain is secondary to urinary retention. Mahoney catheter placed. On reexamination, patient's pain is improved with the Mahoney placement. I suspect this is secondary to his prostate enlargement from his known prostate cancer. Patient is stable to discharge home. He will discharge home with a Mahoney catheter. Follow-up with urology. He confirmed understanding. Return precautions explained. Impression: 1. Urinary retention 2. Enlarged prostate from known prostate cancer Lab Data Labs: Laboratory Results - last 24 hr 05/09/24 05/09/24 05/09/24 10:51 12:20 12:40 WBC 7.9 RBC 3.65 L Hgb 13.0 Hct 37.2 L MCV 101.9 H MCH 35.6 H MCHC 34.9 RDW Std Deviation 47.8 H RDW Coeff of Jam 12.8 Plt Count 175 MPV 9.2 Immature Gran % (Auto) 0.400 Neut % (Auto) 71.0 H Lymph % (Auto) 18.1 L [place] % (Auto) 8.3 Eos % (Auto) 1.6 Baso % (Auto) 0.6 Absolute Neuts (auto) 5.6 Absolute Lymphs (auto) 1.44 Nucleated RBC % 0 Differential Comment Not Rep (more content not included)... Normal [facility] Eosinophil percentageOrdered By: Marin Platt on 05-09-2024 Eosinophils/100 WBC (Bld) 1.6 % 0-5 [facility] Epithelial cells.squamous LM Ql (Urine sed)Ordered By: Marin Platt on 05-09-2024 Epithelial cells.squamous LM.HPF (Urine sed) [#/Area] 0 /[HPF] 0-5 [facility] Erythrocyte distribution wid th (RBC) [Ratio]Ordered By: Marin Platt on 05-09-2024 Erythrocyte distribution width (RBC) [Entitic vol] 47.8 fL High 35.1-43.9 [facility] Erythrocyte distribution wid th ratioOrdered By: Marin Platt on 05-09-2024 Erythrocyte distribution width (RBC) [Ratio] 12.8 % 11.6-14.6 [facility] Estimated glomerular filtrat ion rate (GFR) AmericanOrdered By: Marin Platt on 05-09-2024 Estimated GFR (MDRD) Amer 89 mL/min >60 [facility] Comment on above: GFR Calc Glomerular filtration rate ( GFR) estimationOrdered By: Marin Platt on 05-09-2024 Estimated GFR (MDRD) Non-Af Amer 74 mL/min >60 [facility] Comment on above: Non- GFR Calc Glucose Ql (U)Ordered By: Bandar Platt on 05-09-2024 Urine Glucose (UA) Normal mg/dl Normal [facility] Glucose measurementOrdered B y: Marin Platt on 05-09-2024 Glucose [Mass/Vol] 117 mg/dL High 74-106 [facility] Comment on above: Fasting Glucose resu lt from 100 to 125 mg/dL suggests IMPAIRED HOMEOSTASIS per A.D.A. criteria. Hematocrit Auto (Bld) [Volum e fraction]Ordered By: Marin Platt on 05-09-2024 Hematocrit (Bld) [Volume fraction] 37.2 % Low 40-54 [facility] Hemoglobin measurementOrdere d By: Marin Platt on 05-09-2024 Hemoglobin (Bld) [Mass/Vol] 13.0 g/dL 13.0-16.5 [facility] Immature granulocytes/100 WB C Auto (Bld)Ordered By: Marin Platt on 05-09-2024 Immature granulocytes/100 WBC (Bld) 0.400 % 0.0-0.9 [facility] Comment on above: IG% - Immature Granu locytes (promyelocytes, myelocytes and metamyelocytes) > 1% indicates that a LEFT SHIFT is Present. Ketones Test strip Ql (U)Ord ered By: Marin Platt on 05-09-2024 Ketones Ql (U) Negative Negative [facility] Laboratory - Chemistry and C hemistry - challengeOrdered By: Marin Platt on 05-09-2024 AST [Catalytic activity/Vol] 24 U/L 15-37 [facility] Lactic Acidon 05-09-2024 Lactate [Moles/Vol] 1.1 mmol/L Normal 0.4-1.[address] [facility] Comment on above: Order Comment: Y Performed By: #### L 100.0100, L500.4050, L501.2450, L503.6005 #### [facility] [address] [place], [address] Lactic acid measurementOrder ed By: Marin Platt on 05-09-2024 Lactate [Moles/Vol] 1.1 mmol/L 0.4-2.[address] [facility] Lipaseon 05-09-2024 Lipase [Catalytic activity/Vol] 32 U/L Normal 13-75 [facility] Comment on above: Result Comment: Linda armando note: LIPASE revised reference range effective 22. New Lipase methodology. Expected to produce lower values than the previous assay method. NEW Reference Range: 13 - 75 U/L Performed By: #### L 100.0100, L500.4050, L501.2450, L503.6005 #### [facility] [address] [place], [address] Lipase measurementOrdered By : Marin Platt on 05-09-2024 Lipase [Catalytic activity/Vol] 32 U/L 13-75 [facility] Comment on above: Please note:LIPASE r evised reference range effective 22. New Lipase methodology. Expected to produce lower values than the previous assay method. NEW Reference Range: 13 - 75 U/L Lymphocytes Auto (Unsp spec) [#/Vol]Ordered By: Marin Platt on 05-09-2024 Lymphocytes (Bld) [#/Vol] 1.44 10*3/uL 0.83-4.51 [facility] Lymphocytes/100 WBC Auto (Un sp spec)Ordered By: Marin Platt on 05-09-2024 Lymphocytes/100 WBC (Bld) 18.1 % Low 19-41 [facility] MCV (mean corpuscular volume ) determinationOrdered By: Marin Platt on 05-09-2024 MCV (RBC) [Entitic vol] 101.9 fL High 80-94 [facility] Manual differential comment Leno (Bld) [Interp]Ordered By: Marin Platt on 05-09-2024 Differential Comment Not Reportable [facility] Mean corpuscular hemoglobin (MCH) determinationOrdered By: Marin Platt on 05-09-2024 MCH (RBC) [Entitic mass] 35.6 pg High 27.0-32.0 [facility] Mean corpuscular hemoglobin concentration (MCHC) determinationOrdered By: Marin Platt on 05-09-2024 MCHC (RBC) [Mass/Vol] 34.9 g/dL 32-36 [facility] Mean platelet volume determi nationOrdered By: Marin Platt on 05-09-2024 Platelet mean volume (Bld) [Entitic vol] 9.2 fL 6.2-12.0 [facility] Microscopic analysis of urin e for red blood cells (RBC)Ordered By: Marin Platt on 05-09-2024 Urine RBC 0 SEEN /hpf 0-5 [facility] Monocyte percentageOrdered B y: Marin Platt on 05-09-2024 Monocytes/100 WBC (Bld) 8.3 % 0-10 [facility] Mucus LM Ql (Urine sed)Order ed By: Marin Platt on 05-09-2024 Mucus Ql (Urine sed) 0 SEEN /hpf [facility] Neutrophil percentageOrdered By: Marin Platt on 05-09-2024 Neutrophils/100 WBC (Bld) 71.0 % High 47-70 [facility] Nitrite Test strip Ql (U)Ord ered By: Marin Platt on 05-09-2024 Nitrite Ql (U) Negative Negative [facility] Nucleated red blood cell per centageOrdered By: Marin Platt on 05-09-2024 Nucleated RBC/100 WBC (Bld) [Ratio] 0 % 0-5 [facility] Platelet countOrdered By: Bandar Platt on 05-09-2024 Platelets (Bld) [#/Vol] 175 10*3/uL 150-450 [facility] Platelets LM Ql (Bld)Ordered By: Marin Platt on 05-09-2024 Platelet Estimate Not Reportable [facility] Potassium measurementOrdered By: Marin Platt on 05-09-2024 Potassium [Moles/Vol] 3.8 mmol/L 3.5-5.1 [facility] Protein Test strip Ql (U)Ord ered By: Marin Platt on 05-09-2024 Protein Ql (U) Negative Negative [facility] RBC Auto (Bld) [#/Vol]Ordere d By: Marin Platt on 05-09-2024 RBC (Bld) [#/Vol] 3.65 10*6/uL Low 4.6-6.[address] [facility] Serum anion gap measurementO rdered By: Marin Platt on 05-09-2024 Anion gap [Moles/Vol] 10 mmol/L 5-15 [facility] Serum globulin measurementOr dered By: Marin Platt on 05-09-2024 Globulin (S) [Mass/Vol] 3.4 g/dL 2.2-4.2 [facility] Serum or plasma alanine anderson otransferase (ALT) measurementOrdered By: Marin Platt on 05-09-2024 ALT [Catalytic activity/Vol] 32 U/L 16-61 [facility] Serum or plasma albumin valentin urement (mass/volume)Ordered By: Marin Craft on 05-09-2024 Albumin [Mass/Vol] 4.3 g/dL 3.2-5.0 [facility] Serum or plasma alkaline herb sphatase measurementOrdered By: Marin Platt on 05-09-2024 ALP [Catalytic activity/Vol] 78 U/L 45-117 [facility] Serum or plasma calcium valentin urement (mass/volume)Ordered By: Marin Craft on 05-09-2024 Calcium [Mass/Vol] 9.6 mg/dL 8.5-10.1 [facility] Serum or plasma creatinine m easurement (mass/volume)Ordered By: Marin Craft on 05-09-2024 Creatinine [Mass/Vol] 1.03 mg/dL 0.70-1.30 [facility] Comment on above: The validity of the calculated GFR & GFRAA in patients over 70 years has not been determined. Clinical correlation is essential. Serum or plasma urea nitroge n measurement (mass/volume)Ordered By: Marin Platt on 05-09-2024 Urea nitrogen [Mass/Vol] 19 mg/dL High 7-18 [facility] Sodium levelOrdered By: Woo Platt on 05-09-2024 Sodium [Moles/Vol] 137 mmol/L 136-145 [facility] Total proteinOrdered By: Royce Platt on 05-09-2024 Protein [Mass/Vol] 7.7 g/dL 6.4-8.2 [facility] Urinalysis, Completeon 05-09 BACTERIA 0 SEEN Normal None Seen [facility] Comment on above: Order Comment: CLEAN CATCH Performed By: #### L 400.0001 #### [facility] [address] [place], [address] EPI,SQUAMOUS 0 SEEN Normal 0-5 [facility] Comment on above: Order Comment: CLEAN CATCH Performed By: #### L 400.0001 #### [facility] [address] [place], [address] Mucus Ql (Urine sed) 0 SEEN Normal [facility] Comment on above: Order Comment: CLEAN CATCH Performed By: #### L 400.0001 #### [facility] [address] [place], [address] RBC 0 SEEN Normal 0-5 [facility] Comment on above: Order Comment: CLEAN CATCH Performed By: #### L 400.0001 #### [facility] [address] [place], [address] WBC 0 SEEN Normal 0-5 [facility] Comment on above: Order Comment: CLEAN CATCH Performed By: #### L 400.0001 #### [facility] [address] [place], [address] Urine blood detectionOrdered By: Marin Platt on 05-09-2024 Urine Occult Blood Negative Negative [facility] Urine clarityOrdered By: Royce Platt on 05-09-2024 Clarity (U) Clear Clear [facility] Urine color determinationOrd ered By: Marin Platt on 05-09-2024 Color (U) Straw Yellow [facility] Urine leukocyte esterase det ection by dipstickOrdered By: Marin Platt on 05-09-2024 Leukocyte esterase Test strip Ql (U) Negative Negative [facility] Urine pHOrdered By: Marin Brennan on 05-09-2024 pH (U) 6.0 [pH] 5.0 - 8.0 [facility] Urine sediment bacteria coun t by microscopy (number/high power field)Ordered By: Marin Platt on 05-09-2024 Bacteria LM.HPF (Urine sed) [#/Area] 0 /[HPF] None Seen [facility] Urine specific gravity measu rementOrdered By: Marin Paltt on 05-09-2024 Specific gravity (U) [Rel density] 1.020 1.002-1.030 [facility] Urobilinogen Ql (U)Ordered B y: Marin Platt on 05-09-2024 Urine Urobilinogen Normal mg/dl Normal [facility] White blood cell (WBC) count Ordered By: Marin Platt on 05-09-2024 WBC (Bld) [#/Vol] 7.9 10*3/uL 4.4-11.0 [facility] White blood cell countOrdere d By: Marin Platt on 05-09-2024 Urine WBC 0 SEEN /hpf 0-5 [facility] CNPNon 04-24-2024 [facility] Telephone (INTMWS) -- ZACHARY SHORT ([id number]) 1945 M Date Time Provider Department 04/24/24 AILIN PIERSON INTMWS During your visit today, we recorded the following information about you: Mali Saenz LPN 04/24/2024 9:38 AM Signed Unable to complete PA electronically. Did complete via covermymeds ZACHARY SHORT ([place]: [id number]) JOSE F Rx #: [id number] Need Help? Call us at Status sent iconSent to Plan today Drug Ramelteon 8MG tablets ePA cloud logo Form [employer] Electronic Prior Authorization Request Form (2016 WAPDP) Original Claim Info 569,MR IF LEVEL OF CARE CHANGE CALL HELP DESKCLOSED FORM. For RxLocal Coupon Manuel of: $58.34 submit to BIN: [id number] PCN: JAMI Group: COUPON --Service provided at no cost and no switch fee to the pharmacy-- Valeria MaliDUSTIN 04/25/2024 9:52 AM Signed [facility] until further notice. Pharmacy notified Allergies As of Date: 04/24/2024 (No Known Allergies) Date Reviewed: 04/23/2024 Reviewed by: Carley Khan MA - Fully Assessed Reason for Visit: Insurance Authorization [[id number]] Prescriptions as of 04/25/2024 - ramelteon (ROZEREM) 8 mg tablet Take 1 tablet by mouth daily at bedtime. - azelastine 0.1% nasal spray Use 1 [place] in each nostril two times a day. - lisinopril-hydroCHLOROthia zide (ZESTORETIC) 10-12.5 mg per tablet Take 1 tablet by mouth once daily. - tamsulosin (FLOMAX) 0.4 mg Take 1 capsule by mouth daily at bedtime. - ergocalciferol 50,000 unit capsule (VITAMIN D2, DRISDOL) Take 1 capsule by mouth two times a week. TO BE TAKEN ORALLY DIRECTED. Take 1 tablet by mouth twice weekly [id number], then decrease to 1 tablet weekly. - naproxen (NAPROSYN) 500 mg tablet Take 1 tablet by mouth two times a day as needed (for pain/inflammation). Take with food. - polyethylene glycol 3350 (MIRALAX) 17 gram/dose powder Take 17 g by mouth once daily. Dissolve dose in 4 - 8 ounces of liquid and take as directed. - aspirin, enteric coated (ASPIRIN, ENTERIC COATED) 81 mg EC tablet Take 1 tablet by mouth once daily. Problem List As Of Date 04/24/2024 Noted Resolved Mixed hyperlipidemia [E78.2] 11/09/2005 Unspecified Asthma [J45.909] 11/09/2005 Personal history of other malignant neoplasm of*03/31/2006 Cervical Spondylosis without Myelopathy [M47.81* Family History of Malignant Neoplasm of Gastroi*05/16/2008 Primary Localized Osteoarthrosis, Shoulder Quin*05/16/2008 ACTINIC KERATOSIS (Premalignant AK) [L57.0] 05/17/2008 Other Seborrheic Keratosis [L82.1] 05/17/2008 09/15/2009 ACTINIC DAMAGE///CHR SOLAR SKIN DAMAGE NOS [L57*05/17/2008 09/15/2009 Rosacea [L71.9] 05/17/2008 Primary hypertension [I10] 09/15/2009 Obesity [E66.9] 09/15/2009 Irritated//Inflamed Seborrheic Keratosis [L82.0]09/23/2009 Solar lentigo [L81.4] 09/23/2009 Bladder Neck Obstruction [N32.0] 10/30/2009 Hypertrophy of prostate with urinary obstructio*05/28/2010 Arthritis of shoulder region, left, degenerativ*08/03/2011 Benign neoplasm of rectum and anal canal [D12.8*08/23/2011 Pain in joint, shoulder region [M25.519] 10/21/2011 Chronic knee pain [M25.569, G89.29] 02/28/2017 Preop examination [Z01.818] 11/21/2023 Elevated prostate specific antigen (PSA) [R97.2*11/21/2023 11/29/2023 Obesity, Class I, BMI 30-34.9 [E66.811] 11/21/2023 Prostate cancer (HCC) [C61] 11/29/2023 Encounter Status:Closed by MALI SAENZ on 04/25/24 [facility] CNOVrosaura 04-23-2024 CNOV Office Visit (INTMWS ) -- ZACHARY SHORT ([id number]) 1945 M Date Time Provider Department 04/23/24 9:00 AM AILIN PIERSON INTMWS During your visit today, we recorded the following information about you: Pulse Respiration Blood pressure Weight 77/minute 16/minute 118/78 111 kg Ailin Pierson MD 04/23/2024 6:06 PM Signed Zachary Short is a 78 year old male here for a Medicare wellness visit. Medicare Health Risk Assessment General Health Exercise: Minutes/Day 30 min Exercise: Days/Week 3 days Alcohol: Daily Use 2-4 times a month Alcohol: Drinks/Day 1 or 2 Alcohol: 6 or more drinks Never Feel off balance Yes Concerns: Teeth/Dentures No Concerns: Sexual function No Troubled by feelings None of the above Frequency: Eating healthy diet More than half the days ADLs requiring help None Safety precautions in home/vehicle Yes Smoke, vape, chews tobacco No Difficulty hearing No Difficulty seeing No Current Providers Specialists: I have reviewed specialist-related care of the patient in the medical record. Medical/Family history review Reviewed and updated problem list, medical/surgical/family/so cial history, medications, and allergies. Opioid use review Opioid Medications (last 90 days) No data to display Depression Screening Cognitive screening was normal last time and normal. Cognitive screening reviewed and No further action needed (score 3-5). Functional Observation Was the patient's Timed Up AND Go test unsteady or >= 12 seconds? No Advance Care Planning Surrogate decision maker and/or advance care plan documented Measurements BP 118/78 Pulse 77 Resp 16 Wt 111 kg (244 lb 11.4 oz) BMI 30.43 kg/m? Vision Screening: Follows with optometry/ophthalmology Assessment/Plan Medicare annual wellness visit, subsequent (Z00.00) - Counseled on healthy diet and regular exercise - Fall avoidance information provided - Personalized prevention plan provided Reason for Visit Patient presents with: Medicare Wellness Exam Zachary Short is a 78 year old male who presents here today for Above Complaints.. Health Maintenance Depression Screening Anxiety Screening DTaP,Tdap,Td Vaccine(1 - Tdap) Shingrix Vaccine(1 of 2) RSV Vaccine(1 - 1-dose 60+ series) BP Controlled (<130/80) Advance Directive Discussion HPI This is a very pleasant 78-year-old gentleman with a past medical history of hypertension, mixed hyperlipidemia recent diagnosis of prostate cancer, he also has history of skin cancer, arthritis of the shoulder, obesity, rosacea. Prostate cancer: High grade Nordheim score of 7. NM study did not show likely tracer Uptake so unlikely he has metastasized. He has to decide what he would like to do. Met with the oncologist who offered radiation and hormonal therapies. Impressively read up on things. Tried to discuss goals of care, she enjoys his boat but sold it, was too much to care for. 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 He used to spend a lot more time there than now. Enjoys spending time with his sons. 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 That keeps him interested and occupied. He really missed his , who recently. He lives one day at a time. What he fears most is being with fecal and tubes, like colostomy. He does not want to live that time. He has lived a good life and wants to go peaceful He has not decided what he to do as yet. We discussed that exercise would really helpful to lose weight as he is still contemplating on prostate cancer treatment and does not want to do anything aggressive. Recently he fell down the basement steps. He does not like to go down the basement steps but his washer and dryer are there, so has to go down a couple times a week for laundry and that is when he puts himself at risk so his son's, they are thinking of moving out to a more comfortable and safe place. He does some exercises in bed. No problem-specific Assessment AND Plan notes found for this encounter. 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 Only seasonal now PAST SURGICAL HISTORY Procedure Laterality Date ARTHROPLASTY HEMIARTHROPLASTY 09/10/2011 left shoulder Ari arthroplasty ARTHROPLASTY HEMIARTHROPLASTY 03/07/2012 left shoulder revision COLONOSCOPY AND POLYPECTOMY 08/23/11 repeat 5 years COLONOSCOPY FLX DX W/COLLJ SPEC WHEN PFRMD 10/19/2016 Normal colonoscopy-family history-5 year follow-up NECK 07/17/2007 (more content not included)... Normal [facility] CBC panel Auto (Bld)on 04-19 Erythrocyte distribution width (RBC) [Ratio] 12.8 % Normal 11.5-15.0 [facility] Comment on above: Order Comment: Speci men Type: BLOOD SPECIMEN Ordering Facility: [facility] Address: [address] [place] [address] Performed By: #### 5 8410-2 #### [facility] CLIA [id number] [address] [place] [address] [place] Hematocrit (Bld) [Volume fraction] 44.2 % Normal 39.0-51.0 [facility] Comment on above: Order Comment: Speci men Type: BLOOD SPECIMEN Ordering Facility: [facility] Address: [address] [place] [address] Performed By: #### 5 8410-2 #### [facility] CLIA [id number] [address] [place] [address] [place] Hemoglobin (Bld) [Mass/Vol] 14.5 g/dL Normal 13.0-17.0 [facility] Comment on above: Order Comment: Speci men Type: BLOOD SPECIMEN Ordering Facility: [facility] Address: [address] [place] [address] Performed By: #### 5 8410-2 #### [facility] CLIA [id number] [address] [place] [address] [place] [place] MCH (RBC) [Entitic mass] 34.5 pg High 26.0-34.0 [facility] Comment on above: Order Comment: Speci men Type: BLOOD SPECIMEN Ordering Facility: [facility] Address: [address] [place] [address] Performed By: #### 5 8410-2 #### [facility] CLIA [id number] [address] [place] [address] [place] MCHC (RBC) [Mass/Vol] 32.8 g/dL Normal 30.5-36.0 [facility] Comment on above: Order Comment: Speci men Type: BLOOD SPECIMEN Ordering Facility: [facility] Address: [address] [place] [address] Performed By: #### 5 8410-2 #### [facility] CLIA [id number] [address] [place] [address] [place] MCV (RBC) [Entitic vol] 105.2 fL High 80.0-100.0 [facility] Comment on above: Order Comment: Speci men Type: BLOOD SPECIMEN Ordering Facility: [facility] Address: [address] [place] [address] Performed By: #### 5 8410-2 #### [facility] CLIA [id number] [address] [place] [address] [place] Nucleated RBC (Bld) [#/Vol] 10*3/uL Normal <0.01 [facility] Comment on above: Order Comment: Speci men Type: BLOOD SPECIMEN Ordering Facility: [facility] Address: [address] [place] [address] Performed By: #### 5 8410-2 #### [facility] CLIA [id number] [address] [place] [address] [place] Platelet mean volume (Bld) [Entitic vol] 9.7 fL Normal 9.0-12.7 [facility] Comment on above: Order Comment: Speci men Type: BLOOD SPECIMEN Ordering Facility: [facility] Address: [address] [place] [address] Performed By: #### 5 8410-2 #### [facility] CLIA [id number] [address] [place] [address] [place] Platelets (Bld) [#/Vol] 221 10*3/uL Normal 150-400 [facility] Comment on above: Order Comment: Speci men Type: BLOOD SPECIMEN Ordering Facility: [facility] Address: [address] [place] [address] Performed By: #### 5 8410-2 #### [facility] CLIA [id number] [address] [place] [address] [place] RBC (Bld) [#/Vol] 4.20 10*6/uL Normal 4.20-6.00 [facility] Comment on above: Order Comment: Speci men Type: BLOOD SPECIMEN Ordering Facility: [facility] Address: [address] [place] [address] Performed By: #### 5 8410-2 #### [facility] CLIA [id number] [address] [place] [address] [place] WBC (Bld) [#/Vol] 9.77 10*3/uL Normal 3.70-11.00 [facility] Comment on above: Order Comment: Speci men Type: BLOOD SPECIMEN Ordering Facility: [facility] Address: [address] [place] [address] Performed By: #### 5 8410-2 #### [facility] CLIA [id number] [address] [place] [address] [place] Comprehensive metabolic 2000 panelon 04-19-2024 Albumin [Mass/Vol] 4.4 g/dL Normal 3.9-4.9 [facility] Comment on above: Order Comment: Speci men Type: URINE SPECIMEN Ordering Facility: [facility] Address: [address] [place] [address] Performed By: #### U A #### [facility] CLIA [id number] [address] [place] [address] [place] ALP [Catalytic activity/Vol] 86 U/L Normal 38-113 [facility] Comment on above: Order Comment: Speci men Type: URINE SPECIMEN Ordering Facility: [facility] Address: [address] [place] [address] Performed By: #### U A #### [facility] CLIA [id number] [address] [place] [address] [place] ALT [Catalytic activity/Vol] 20 U/L Normal 10-54 [facility] Comment on above: Order Comment: Speci men Type: URINE SPECIMEN Ordering Facility: [facility] Address: [address] [place] [address] Performed By: #### U A #### [facility] CLIA [id number] [address] [place] [address] [place] Anion gap [Moles/Vol] 12 mmol/L Normal 8-15 [facility] Comment on above: Order Comment: Speci men Type: URINE SPECIMEN Ordering Facility: [facility] Address: [address] [place] [address] Performed By: #### U A #### [facility] CLIA [id number] [address] [place] [address] [place] AST [Catalytic activity/Vol] 23 U/L Normal 14-40 [facility] Comment on above: Order Comment: Speci men Type: URINE SPECIMEN Ordering Facility: [facility] Address: [address] [place] [address] Performed By: #### U A #### [facility] CLIA [id number] [address] [place] [address] [place] Bilirubin [Mass/Vol] 0.5 mg/dL Normal 0.2-1.3 [facility] Comment on above: Order Comment: Speci men Type: URINE SPECIMEN Ordering Facility: [facility] Address: [address] [place] [address] Performed By: #### U A #### [facility] CLIA [id number] [address] [place] [address] [place] Calcium [Mass/Vol] 9.6 mg/dL Normal 8.5-10.2 [facility] Comment on above: Order Comment: Speci men Type: URINE SPECIMEN Ordering Facility: [facility] Address: [address] [place] [address] Performed By: #### U A #### [facility] CLIA [id number] [address] [place] [address] [place] Chloride [Moles/Vol] 99 mmol/L Normal 98-107 [facility] Comment on above: Order Comment: Speci men Type: URINE SPECIMEN Ordering Facility: [facility] Address: [address] [place] [address] Performed By: #### U A #### [facility] CLIA [id number] [address] [place] [address] [place] CO2 [Moles/Vol] 26 mmol/L Normal 22-30 [facility] Comment on above: Order Comment: Speci men Type: URINE SPECIMEN Ordering Facility: [facility] Address: [address] [place] [address] Performed By: #### U A #### [facility] CLIA [id number] [address] [place] [address] [place] Creatinine [Mass/Vol] 0.98 mg/dL Normal 0.73-1.22 [facility] Comment on above: Order Comment: Speci men Type: URINE SPECIMEN Ordering Facility: [facility] Address: [address] [place] [address] Performed By: #### U A #### [facility] CLIA [id number] [address] [place] [address] [place] Creatinine and Glomerular filtration rate.predicted panel (S/P/Bld) 78 mL/min/1.73m??? Normal >=60 [facility] Comment on above: Order Comment: Speci men Type: URINE SPECIMEN Ordering Facility: [facility] Address: [address] [place] [address] Result Comment: Ekaterina mated Glomerular Filtration Rate (eGFR) is calculated using the 2020 CKD-EPI creatinine equation. This equation utilizes serum creatinine, sex, and age as parameters. The creatinine assay has traceable calibration to isotope dilution-mass spectrometry. Refer to KDIGO guidelines for clinical interpretation. In patients with unstable renal function, e.g. those with acute kidney injury, the eGFR may not accurately reflect actual GFR. Performed By: #### U A #### [facility] CLIA [id number] [address] [place] [address] [place] Glucose [Mass/Vol] 104 mg/dL High 74-99 [facility] Comment on above: Order Comment: Speci men Type: URINE SPECIMEN Ordering Facility: [facility] Address: [address] [place] [address] Result Comment: The [place] Diabetes Association (ADA) provides guidance for cutoff values for fasting glucose and random glucose. The ADA defines fasting as no caloric intake for at least 8 hours. Fasting plasma glucose results between 100 to 125 mg/dL indicate increased risk for diabetes (prediabetes). Fasting plasma glucose results greater than or equal to 126 mg/dL meet the criteria for diagnosis of diabetes. In the absence of unequivocal hyperglycemia, results should be confirmed by repeat testing. In a patient with classic symptoms of hyperglycemia or hyperglycemic crisis, random plasma glucose results greater than or equal to 200 mg/dL meet the criteria for diagnosis of diabetes. Reference: Standards of Medical Care in Diabetes 2016, [place] [employer]. Diabetes Care. 2016.39(Suppl 1). Performed By: #### U A #### [facility] CLIA [id number] [address] [place] [address] [place] Potassium [Moles/Vol] 4.2 mmol/L Normal 3.7-5.1 [facility] Comment on above: Order Comment: Speci men Type: URINE SPECIMEN Ordering Facility: [facility] Address: [address] [place] [address] Performed By: #### U A #### [facility] CLIA [id number] [address] [place] [address] [place] Protein [Mass/Vol] 8.1 g/dL High 6.3-8.0 [facility] Comment on above: Order Comment: Speci men Type: URINE SPECIMEN Ordering Facility: [facility] Address: [address] [place], [place] [id number] Performed By: #### U A #### [facility] CLIA [id number] [address] [place] [address] [place] Sodium [Moles/Vol] 137 mmol/L Normal 136-144 [facility] Comment on above: Order Comment: Speci men Type: URINE SPECIMEN Ordering Facility: [facility] Address: [address] [place] [address] Performed By: #### U A #### [facility] CLIA [id number] [address] [place] [address] [place] Urea nitrogen [Mass/Vol] 15 mg/dL Normal 9-24 [facility] Comment on above: Order Comment: Speci men Type: URINE SPECIMEN Ordering Facility: [facility] Address: [address] [place] [address] Performed By: #### U A #### [facility] CLIA [id number] [address] [place] [address] [place] Lipid 1996 panelon 4 Cholesterol [Mass/Vol] 193 mg/dL Normal <200 [facility] Comment on above: Order Comment: Speci men Type: URINE SPECIMEN Ordering Facility: [facility] Address: [address] [place] [address] Result Comment: <200 mg/dL, Desirable 200-239 mg/dL, Borderline high >239 mg/dL, High Performed By: #### U A #### [facility] CLIA [id number] [address] [place] [address] [place] Cholesterol in HDL [Mass/Vol] 55 mg/dL Normal >39 [facility] Comment on above: Order Comment: Speci men Type: URINE SPECIMEN Ordering Facility: [facility] Address: [address] [place] [address] Result Comment: 40-5 9 mg/dL, Acceptable >59 mg/dL, High: Negative risk factor for coronary heart disease <40 mg/dL, Low: Positive risk factor for coronary heart disease Performed By: #### U A #### [facility] CLIA [id number] [address] [place] [address] [place] Cholesterol in LDL [Mass/Vol] 123 mg/dL High <100 [facility] Comment on above: Order Comment: Speci men Type: URINE SPECIMEN Ordering Facility: [facility] Address: [address] [place] [address] Result Comment: <100 mg/dL, Optimal 100-129 mg/dL, Near optimal/above optimal 130-159 mg/dL, Borderline high 160-189 mg/dL, High >189 mg/dL, Very high Secondary prevention optimal LDL Cholesterol levels are recommended to be < 70 mg/dL Performed By: #### U A #### [facility] CLIA [id number] [address] [place] [address] [place] Cholesterol in LDL/Cholesterol in HDL [Mass ratio] 2.24 {ratio} Normal <2.54 [facility] Comment on above: Order Comment: Speci men Type: URINE SPECIMEN Ordering Facility: [facility] Address: [address] [place] [address] Result Comment: Refe rence: 1. National Cholesterol Education Program ATP III Guideline At-A-Glance Quick Desk Reference: National Heart, Lung, and Blood [place]. National Institutes of Health. 2001: NIH Publication No. 01-3305. 2. An International Atherosclerosis Society position paper: global recommendations for the management of dyslipidemia: executive summary, Atherosclerosis. 2014: 232(2):410-413. Performed By: #### U A #### [facility] CLIA [id number] [address] [place] [address] [place] Cholesterol in VLDL [Mass/Vol] 15 mg/dL Normal <30 [facility] Comment on above: Order Comment: Speci men Type: URINE SPECIMEN Ordering Facility: [facility] Address: [address] [place] [address] Performed By: #### U A #### [facility] CLIA [id number] [address] [place] [address] [place] Cholesterol non HDL [Mass/Vol] 138 mg/dL High <130 [facility] Comment on above: Order Comment: Speci men Type: URINE SPECIMEN Ordering Facility: [facility] Address: [address] [place] [address] Result Comment: <130 mg/dL, Optimal 130-159 mg/dL, Near optimal/above optimal 160-189 mg/dL, Borderline high 190-219 mg/dL, High >219 mg/dL, Very high Secondary prevention optimal non HDL Cholesterol levels are recommended to be <100 mg/dL Performed By: #### U A #### [facility] CLIA [id number] [address] [place] [address] [place] Cholesterol.total/Chol esterol in HDL [Mass ratio] 3.51 {ratio} Normal <5.10 [facility] Comment on above: Order Comment: Speci men Type: URINE SPECIMEN Ordering Facility: [facility] Address: [address] [place] [address] Performed By: #### U A #### [facility] CLIA [id number] [address] [place] [address] [place] FASTING TIME 12 hrs Normal [facility] Comment on above: Order Comment: Speci men Type: URINE SPECIMEN Ordering Facility: [facility] Address: [address] [place] [address] Performed By: #### U A #### [facility] CLIA [id number] [address] [place] [address] [place] Triglyceride [Mass/Vol] 73 mg/dL Normal <150 [facility] Comment on above: Order Comment: Speci men Type: URINE SPECIMEN Ordering Facility: [facility] Address: [address] [place] [address] Result Comment: <150 mg/dL, Normal 150-199 mg/dL, Borderline high 200-499 mg/dL, High >499 mg/dL, Very high Performed By: #### U A #### [facility] CLIA [id number] [address] [place] [address] [place] CNPMelisa [facility] HANZACHARY Jana ([id number]) 1945 M Date Time Provider Department 04/16/24 AILIN PIERSON INTWS During your visit today, we recorded the following information about you: Florence Goldberg RN 04/16/2024 12:20 PM Signed Patient calls and is asking if provider wants him to get labs done prior to medicare wellness visit on 04/23/2024. Please review and advise, LAY Gee Joy, APRN.MARITO 04/16/2024 12:49 PM Signed Fasting blood work ordered Thank you Kayla Betancourt APRN.Florence Giron RN 04/17/2024 1:07 PM Signed Patient called and notified that fasting lab orders placed. Florence Goldberg RN Allergies As of Date: 04/16/2024 (No Known Allergies) Date Reviewed: 01/05/2024 Reviewed by: Poonam Rice RN - Fully Assessed Reason for Visit: Orders [681] Primary Visit Diagnosis:Encounter for Medicare annual wellness exam [Z00.00] Other Visit Diagnoses:Annual physical exam [Z00.00] Mixed hyperlipidemia [E78.2] Primary hypertension [I10] Order(s):LIPID PANEL BASIC [SQLIPB] Order #: [id number] FUTURE COMPREHENSIVE METABOLIC PANEL [SQCMP] Order #: [id number] FUTURE COMPLETE BLOOD COUNT [SQCBC] Order #: [id number] FUTURE Prescriptions as of 04/17/2024 - lisinopril-hydroCHLOROthia zide (ZESTORETIC) 10-12.5 mg per tablet Take 1 tablet by mouth once daily. - tamsulosin (FLOMAX) 0.4 mg Take 1 capsule by mouth daily at bedtime. - ergocalciferol 50,000 unit capsule (VITAMIN D2, DRISDOL) Take 1 capsule by mouth two times a week. TO BE TAKEN ORALLY DIRECTED. Take 1 tablet by mouth twice weekly [id number], then decrease to 1 tablet weekly. - naproxen (NAPROSYN) 500 mg tablet Take 1 tablet by mouth two times a day as needed (for pain/inflammation). Take with food. - polyethylene glycol 3350 (MIRALAX) 17 gram/dose powder Take 17 g by mouth once daily. Dissolve dose in 4 - 8 ounces of liquid and take as directed. - aspirin, enteric coated (ASPIRIN, ENTERIC COATED) 81 mg EC tablet Take 1 tablet by mouth once daily. Problem List As Of Date 04/16/2024 Noted Resolved Mixed hyperlipidemia [E78.2] 11/09/2005 Unspecified Asthma [J45.909] 11/09/2005 Personal history of other malignant neoplasm of*03/31/2006 Cervical Spondylosis without Myelopathy [M47.81* Family History of Malignant Neoplasm of Gastroi*05/16/2008 Primary Localized Osteoarthrosis, Shoulder Quin*05/16/2008 ACTINIC KERATOSIS (Premalignant AK) [L57.0] 05/17/2008 Other Seborrheic Keratosis [L82.1] 05/17/2008 09/15/2009 ACTINIC DAMAGE///CHR SOLAR SKIN DAMAGE NOS [L57*05/17/2008 09/15/2009 Rosacea [L71.9] 05/17/2008 Primary hypertension [I10] 09/15/2009 Obesity [E66.9] 09/15/2009 Irritated//Inflamed Seborrheic Keratosis [L82.0]09/23/2009 Solar lentigo [L81.4] 09/23/2009 Bladder Neck Obstruction [N32.0] 10/30/2009 Hypertrophy of prostate with urinary obstructio*05/28/2010 Arthritis of shoulder region, left, degenerativ*08/03/2011 Benign neoplasm of rectum and anal canal [D12.8*08/23/2011 Pain in joint, shoulder region [M25.519] 10/21/2011 Chronic knee pain [M25.569, G89.29] 02/28/2017 Preop examination [Z01.818] 11/21/2023 Elevated prostate specific antigen (PSA) [R97.2*11/21/2023 11/29/2023 Obesity, Class I, BMI 30-34.9 [E66.811] 11/21/2023 Prostate cancer (HCC) [C61] 11/29/2023 Encounter Status:Closed by FLORENCE GOLDBERG on 04/16/24 [facility] 01-11-2024 CNPN Telephone (RADTWS) -- ZACHARY SHORT ([id number]) 1945 M Date Time Provider Department 01/11/24 VINCE HUFFMAN RADTWS During your visit today, we recorded the following information about you: Mali Fernández RN 01/11/2024 8:01 AM Signed Late entry: On 01/10/24 phone call to pt to see if he had made a decision on receiving radiation therapy. Pt states after long consideration and discussions with sons, he has decided not to do any treatment for prostate cancer. Allowed pt time to discuss all his feeling about this decision. He states understanding of all his options and feels at his age he would prefer to live without the burden of treatment and or side effects. Instructed pt to let Dr Blanton know of his decision to see if he wants f/u sooner than the scheduled 07/10/14. Also told pt to call if he were to change his mind about this. Dr Huffman made aware. Allergies As of Date: 01/11/2024 (No Known Allergies) Date Reviewed: 01/05/2024 Reviewed by: Poonam Rice, LAY - Fully Assessed Reason for Visit: Patient Update [2394] Cmt: Re:radiation treatment Prescriptions as of 01/11/2024 - ergocalciferol 50,000 unit capsule (VITAMIN D2, DRISDOL) Take 1 capsule by mouth two times a week. TO BE TAKEN ORALLY DIRECTED. Take 1 tablet by mouth twice weekly [id number], then decrease to 1 tablet weekly. - naproxen (NAPROSYN) 500 mg tablet Take 1 tablet by mouth two times a day as needed (for pain/inflammation). Take with food. - polyethylene glycol 3350 (MIRALAX) 17 gram/dose powder Take 17 g by mouth once daily. Dissolve dose in 4 - 8 ounces of liquid and take as directed. - lisinopril-hydroCHLOROthia zide (ZESTORETIC) 10-12.5 mg per tablet Take 1 tablet by mouth once daily. - tamsulosin (FLOMAX) 0.4 mg Take 1 capsule by mouth daily at bedtime. - aspirin, enteric coated (ASPIRIN, ENTERIC COATED) 81 mg EC tablet Take 1 tablet by mouth once daily. Problem List As Of Date 01/11/2024 Noted Resolved Mixed hyperlipidemia [E78.2] 11/09/2005 Unspecified Asthma [J45.909] 11/09/2005 Personal history of other malignant neoplasm of*03/31/2006 Cervical Spondylosis without Myelopathy [M47.81* Family History of Malignant Neoplasm of Gastroi*05/16/2008 Primary Localized Osteoarthrosis, Shoulder Quin*05/16/2008 ACTINIC KERATOSIS (Premalignant AK) [L57.0] 05/17/2008 Other Seborrheic Keratosis [L82.1] 05/17/2008 09/15/2009 ACTINIC DAMAGE///CHR SOLAR SKIN DAMAGE NOS [L57*05/17/2008 09/15/2009 Rosacea [L71.9] 05/17/2008 Primary hypertension [I10] 09/15/2009 Obesity [E66.9] 09/15/2009 Irritated//Inflamed Seborrheic Keratosis [L82.0]09/23/2009 Solar lentigo [L81.4] 09/23/2009 Bladder Neck Obstruction [N32.0] 10/30/2009 Hypertrophy of prostate with urinary obstructio*05/28/2010 Arthritis of shoulder region, left, degenerativ*08/03/2011 Benign neoplasm of rectum and anal canal [D12.8*08/23/2011 Pain in joint, shoulder region [M25.519] 10/21/2011 Chronic knee pain [M25.569, G89.29] 02/28/2017 Preop examination [Z01.818] 11/21/2023 Elevated prostate specific antigen (PSA) [R97.2*11/21/2023 11/29/2023 Obesity, Class I, BMI 30-34.9 [E66.9] 11/21/2023 Prostate cancer (HCC) [C61] 11/29/2023 Encounter Status:Closed by MALI FERNÁNDEZ on 01/11/24 [facility] CNPN Tele[facility] (UROLMD) -- ZACHARY SHORT ([id number]) 1945 M Date Time Provider Department 01/10/24 JUAN BLANTON JR UROLMD During your visit today, we recorded the following information about you: Destinee Cloud RN 01/10/2024 11:04 AM Signed Patient calling to inform that he did see Dr. Huffman for Radiation Oncology and wanted to let you know that he is not going to be doing radiation. He states he prefers to be on more of a Watch surveillance at this point. He wanted to talk with you about the discussion with Dr. Huffman. He is due to see you in June and get PSA prior. I called patient back and explained you are out of office this week and returning next week. If you can call him, or I can assist with appt for discussion. Destinee Cloud RN 01/10/2024 11:16 AM Signed Called back. If you are OK with decision then he'll wait and do PSA in June. Or if you want to see him and change any plans please advise. Allergies As of Date: 01/10/2024 (No Known Allergies) Date Reviewed: 01/05/2024 Reviewed by: Poonam Rice, LAY - Fully Assessed Reason for Visit: Patient Plan of care [Other] Prescriptions as of 01/01/2025 - cephALEXin (KEFLEX) 500 mg capsule Take 1 capsule by mouth four times daily for 5 days. - finasteride (PROSCAR) 5 mg tablet Take 1 tablet by mouth once daily. - colestipol (COLESTID) 1 gram tablet Take 1 tablet by mouth two times a day. - citalopram (CELEXA) 20 mg tablet Take 1 tablet by mouth once daily. - tamsulosin (FLOMAX) 0.4 mg Take 1 capsule by mouth two times a day. - oxyCODONE-acetaminophen 5-325 mg (PERCOCET) Take 1-2 tablets by mouth every 4 hours as needed (for pain). - azelastine 0.1% nasal spray Use 1 [place] in each nostril two times a day. - lisinopril-hydroCHLOROthia zide (ZESTORETIC) 10-12.5 mg per tablet Take 1 tablet by mouth once daily. - ergocalciferol 50,000 unit capsule (VITAMIN D2, DRISDOL) Take 1 capsule by mouth two times a week. TO BE TAKEN ORALLY DIRECTED. Take 1 tablet by mouth twice weekly [id number], then decrease to 1 tablet weekly. - polyethylene glycol 3350 (MIRALAX) 17 gram/dose powder Take 17 g by mouth once daily. Dissolve dose in 4 - 8 ounces of liquid and take as directed. - aspirin, enteric coated (ASPIRIN, ENTERIC COATED) 81 mg EC tablet Take 81 mg by mouth once daily. Problem List As Of Date 01/10/2024 Noted Resolved Mixed hyperlipidemia [E78.2] 11/09/2005 Unspecified Asthma [J45.909] 11/09/2005 Personal history of other malignant neoplasm of*03/31/2006 Cervical Spondylosis without Myelopathy [M47.81* Family History of Malignant Neoplasm of Gastroi*05/16/2008 Primary Localized Osteoarthrosis, Shoulder Quin*05/16/2008 ACTINIC KERATOSIS (Premalignant AK) [L57.0] 05/17/2008 Other Seborrheic Keratosis [L82.1] 05/17/2008 09/15/2009 ACTINIC DAMAGE///CHR SOLAR SKIN DAMAGE NOS [L57*05/17/2008 09/15/2009 Rosacea [L71.9] 05/17/2008 Primary hypertension [I10] 09/15/2009 Obesity [E66.9] 09/15/2009 Irritated//Inflamed Seborrheic Keratosis [L82.0]09/23/2009 Solar lentigo [L81.4] 09/23/2009 Bladder Neck Obstruction [N32.0] 10/30/2009 Hypertrophy of prostate with urinary obstructio*05/28/2010 Arthritis of shoulder region, left, degenerativ*08/03/2011 Benign neoplasm of rectum and anal canal [D12.8*08/23/2011 Pain in joint, shoulder region [M25.519] 10/21/2011 Chronic knee pain [M25.569, G89.29] 02/28/2017 Preop examination [Z01.818] 11/21/2023 Elevated prostate specific antigen (PSA) [R97.2*11/21/2023 11/29/2023 Obesity, Class I, BMI 30-34.9 [E66.811] 11/21/2023 Prostate cancer (HCC) [C61] 11/29/2023 Encounter Status:Closed by DESTINEE CLOUD on 01/01/25 [facility] Whole body Bone Viewson 0 12-09-2023 IMPRESSION: * No evident osteoblastic metastases. * Degenerative changes as described above Slitter Cut Off Operator: PSCB Transcribe Date/Time: Dec 09 2023 2:38P Dictated by : KIRAN HOLT MD This examination was interpreted and the report reviewed and electronically signed by: MAE FRANCIS MD on Dec 09 2023 3:03PM [facility] * * *Final Report* * * DATE OF EXAM: Dec 09 2023 1:00PM FELICITA 0014 - [place] BONE WHOLE BODY / PROCEDURE REASON: [id number] cancer (HCC) * * * * Physician Interpretation * * * * EXAMINATION: WHOLE BODY BONE SCAN CLINICAL HISTORY: Prostate cancer. . TECHNIQUE: 21.4 millicuries of Tc-99m MDP administered IV. Planar whole body images in anterior and posterior projections obtained 3-4 hours after injection. Regional static planar images also obtained. COMPARISON: No prior bone scan available CORRELATION: MRI prostate 09/22/2023 RESULT: Limitations: Aspects of the arms not in mwqoq-wn-asal and cannot be assessed. Bones: * No suspicious areas of tracer uptake. * Areas of increased uptake likely related to degenerative changes including risks, shoulders, thoracolumbar spine, hips, knees, ankles/feet. Urinary tract: Physiologic activity confirmed. [facility] Provider, [facility] - 12/09/2023 * * *Final Report* * * DATE OF EXAM: Dec 09 2023 1:00PM FELICITA Oliva4 - [place] BONE WHOLE BODY / PROCEDURE REASON: [id number]-Vqtmqwho cancer (HCC) * * * * Physician Interpretation * * * * EXAMINATION: WHOLE BODY BONE SCAN CLINICAL HISTORY: Prostate cancer. . TECHNIQUE: 21.4 millicuries of Tc-99m MDP administered IV. Planar whole body images in anterior and posterior projections obtained 3-4 hours after injection. Regional static planar images also obtained. COMPARISON: No prior bone scan available CORRELATION: MRI prostate 09/22/2023 RESULT: Limitations: Aspects of the arms not in lixbc-um-duds and cannot be assessed. Bones: * No suspicious areas of tracer uptake. * Areas of increased uptake likely related to degenerative changes including risks, shoulders, thoracolumbar spine, hips, knees, ankles/feet. Urinary tract: Physiologic activity confirmed. IMPRESSION IMPRESSION: * No evident osteoblastic metastases. * Degenerative changes as described above Slitter Cut Off Operator: ROCÍO Transcribe Date/Time: Dec 09 2023 2:38P Dictated by : KIRAN HOLT MD This examination was interpreted and the report reviewed and electronically signed by: MAE FRANCIS MD on Dec 09 2023 3:03PM EST [facility] Radiology Study observation (narrative) [facility] Whole body Bone ViewsOrde red By: [facility]cf Provider on 12-09-2023 [facility] UA DIP, URINE (POC)on 2023 BILIRUBIN UA (POCT) Negative Negative Juvenal [facility] CLARITY UA (POCT) Clear [facility] COLOR UA (POCT) Yellow [facility] GLUCOSE UA (POCT) Negative Negative mg/dL [facility] Hemoglobin Ql (U) Negative Negative [facility] KETONE UA (POCT) Negative Negative mg/dL [facility] LEUKOCYTES UA (POCT) Negative Negative [facility] NITRITE UA (POCT) Negative Negative [facility] PH UA (POCT) 5.5 4.5 - 8.0 [facility] Protein Ql (U) Negative Negative mg/dL [facility] SPECIFIC GRAVITY UA (POCT) 1.010 1.005 - 1.030 [facility] UROBILINOGEN UA (POCT) 0.2 Ivory l E.U./dL [facility] Location:[facility], [address] [place] [address], [place], [address] [facility] POINT OF CARE [facility] UA DIP, URINE (POC)on 2022 BILIRUBIN UA (POCT) Negative Negative Juvenal [facility] CLARITY UA (POCT) Clear [facility] COLOR UA (POCT) Yellow [facility] GLUCOSE UA (POCT) Negative Negative mg/dL [facility] Hemoglobin Ql (U) Negative Negative [facility] KETONE UA (POCT) Negative Negative mg/dL [facility] LEUKOCYTES UA (POCT) Negative Negative [facility] NITRITE UA (POCT) Negative Negative [facility] PH UA (POCT) 5.5 4.5 - 8.0 [facility] Protein Ql (U) Negative Negative mg/dL [facility] SPECIFIC GRAVITY UA (POCT) 1.020 1.005 - 1.030 [facility] UROBILINOGEN UA (POCT) 0.2 E.U./dL Ivory l E.U./dL [facility] US PROSTATE BIOPSY (POC) GUK I USE ONLYon 04-19-2023 [facility] UA DIP, URINE (POC)on 2022 BILIRUBIN UA (POCT) Negative Negative [facility] CLARITY UA (POCT) Slightly Cloudy Cl [facility] COLOR UA (POCT) Light [facility] GLUCOSE UA (POCT) Negative Negative mg/dL [facility] Hemoglobin Ql (U) Negative Negative [facility] KETONE UA (POCT) Negative Negative mg/dL [facility] LEUKOCYTES UA (POCT) Negative Negative [facility] NITRITE UA (POCT) Negative Negative [facility] PH UA (POCT) 6.5 4.5 - 8.0 [facility] Protein Ql (U) Negative Negative mg/dL [facility] SPECIFIC GRAVITY UA (POCT) 1.015 1.005 - 1.030 [facility] UROBILINOGEN UA (POCT) 0.2 E.U./dL Ivory l E.U./dL [facility] PROGRESSon 12-08-2017 [facility] NOTES [facility] PROGRESSon 09-01-2017 [facility] NOTES Normal [facility] CBCon 08-10-2017 ABSOLUTE BAS 0.0 X10 Normal [facility] Comment on above: Performed By: #### C HEM7F ACBC ####Testing performed at [address] [address] ABSOLUTE EOS 0.00 X10 Normal [facility] Comment on above: Performed By: #### C HEM7F ACBC ####Testing performed at [address] [address] ABSOLUTE NEUTROPHIL COUNT 12.4 x10 High 1.0-7.0 [facility] Comment on above: Performed By: #### C HEM7F ACBC ####Testing performed at [address] [place] [address] Basophils/100 WBC Auto (Bld) 0.0 % Normal 0.0-2.0 [facility] Comment on above: Performed By: #### C HEM7F ACBC ####Testing performed at [address] [place] [address] DTYPE AUTO DIFF Normal [facility] Comment on above: Performed By: #### C HEM7F ACBC ####Testing performed at [address] [address] Eosinophils/100 leukocytes 0.0 % Normal 0.0-11.0 [facility] Comment on above: Performed By: #### C HEM7F ACBC ####Testing performed at [address] [address] Lymphocytes 1.20 X10 Normal [facility] Comment on above: Performed By: #### C HEM7F ACBC ####Testing performed at [address] [address] Lymphocytes/100 leukocytes 8.0 % Low 20.0-55.0 [facility] Comment on above: Performed By: #### C HEM7F ACBC ####Testing performed at [address] [address] Monocytes 0.9 X10 Normal [facility] Comment on above: Performed By: #### C HEM7F ACBC ####Testing performed at [address] [address] Monocytes/100 leukocytes 6.2 % Normal 0.0-10.0 [facility] Comment on above: Performed By: #### C HEM7F, ACBC ####Testing performed at [address] [address] Neutrophils/100 leukocytes 85.8 % High 37.0-75.0 [facility] Comment on above: Performed By: #### C HEM7F, ACBC ####Testing performed at [address] [address] Erythrocyte distribution width Auto Ratio (RBC) 13.4 % Normal 11.5-14.5 [facility] Comment on above: Performed By: #### C HEM7F, ACBC ####Testing performed at [address] [address] Erythrocytes (RBC) 3.43 /cmm Low 4.0-6.1 [facility] Comment on above: Performed By: #### C HEM7F, ACBC ####Testing performed at [address] [address] Hematocrit (HCT) 35.0 % Low 42.0-52.0 [facility] Comment on above: Performed By: #### C HEM7F, ACBC ####Testing performed at [address] [address] Hemoglobin mass conc (Bld) 12.0 g/dL Low 14.0-18.0 [facility] Comment on above: Performed By: #### C HEM7F, ACBC ####Testing performed at [address] [address] MCH 35.1 pg High 26.0-35.0 [facility] Comment on above: Performed By: #### C HEM7F, ACBC ####Testing performed at [address] [address] MCHC mass conc (RBC) 34.4 g/dL Normal 27.0-37.0 [facility] Comment on above: Performed By: #### C HEM7F, ACBC ####Testing performed at [place] [address] MCV 102.0 fL High 80.0-100.0 [facility] Comment on above: Performed By: #### C [id number] Jack ####Testing performed at [place] [address] Platelet mean volume (PMV) 7.4 fL Normal 7.4-11.0 [facility] Comment on above: Performed By: #### C [id number] ####Testing performed at [place] [address] Platelets 164 /cmm Normal 130.0-400.0 [facility] Comment on above: Performed By: #### C [id number] ####[place] [address] WBC (Leukocytes) 14.5 /cmm High 3.6-11.0 [facility] Comment on above: Performed By: #### C [id number] ####[place] [address] CHEM 7 FASTINGon 08-10-2017 BUN (urea nitrogen) 22 mg/dL High 7-20 [facility] Comment on above: Performed By: #### C [id number] Jack ####Testing performed at [place] [address] Creatinine 0.8 mg/dL Normal 0.66-1.25 [facility] Comment on above: Performed By: #### C [id number] ####Testing performed at [place] [address] eGFR (non-black) Average GFR for 70+ years old = 75. Normal [facility] Comment on above: Result Comment: Aircraft Pne[employer]ulic [employer] Mechanic merna Kidney disease, GFR = <60.Kidney failure, GFR = <15.The GFR estimate is not adjusted for extreme body surface area or acute process, nor has it been validated for women or ethnic groups other than and . Performed By: #### C HEM7F ACHUNTER ####[place] [address] EST. GFR, >60 Normal [facility] Comment on above: Performed By: #### C HEM7F, ACBC ####Testing performed at [address] [address] EST. GFR,Non >60 Normal [facility] Comment on above: Performed By: #### C HEM7F, ACBC ####Testing performed at [address] [address] Chloride 108 mmol/L High 98-107 [facility] Comment on above: Performed By: #### C HEM7F, ACBC ####Testing performed at [address] [address] CO2 24 mmol/L Normal 22-30 [facility] Comment on above: Performed By: #### C HEM7F, ACBC ####Testing performed at [address] [address] Glucose mass conc 141 mg/dL High 70-100 [facility] Comment on above: Result Comment: NORM AL <100 mg/dLPREDIABETES 101-126 mg/dLDIABETES 126 mg/dL or higher Performed By: #### C HEM7F, ACBC ####Testing performed at [address] [address] Potassium molar conc 4.4 mmol/L Normal 3.5-5.1 [facility] Comment on above: Performed By: #### C HEM7F, ACBC ####Testing performed at [address] [address] Sodium 139 mmol/L Normal 137-145 [facility] Comment on above: Performed By: #### C HEM7F, ACBC ####Testing performed at [address] [address] DISCH SUMMon 08-10-2017 [facility] NOTES Normal [facility] NURSING NOTEon 08-10-2017 [facility] NOTES Normal [facility] NOT[facility] Normal [facility] NOT[facility] PROGRESSon 08-10-2017 [facility] NOTES Normal [facility] NOT[facility] Normal [facility] NOT[facility] Normal [facility] NOT[facility] Normal [facility] CBCon 08-09-2017 ABSOLUTE BAS 0.0 X10 Normal [facility] Comment on above: Performed By: #### A CBC ####Testing performed at [address] [place] [address] ABSOLUTE EOS 0.00 X10 Normal [facility] Comment on above: Performed By: #### A CBC ####Testing performed at [address] [place] [address] ABSOLUTE NEUTROPHIL COUNT 10.4 x10 High 1.0-7.0 [facility] Comment on above: Performed By: #### A CBC ####Testing performed at [address] [place] [address] Basophils/100 WBC Auto (Bld) 0.1 % Normal 0.0-2.0 [facility] Comment on above: Performed By: #### A CBC ####Testing performed at [address] [place] [address] DTYPE AUTO DIFF Normal [facility] Comment on above: Performed By: #### A CBC ####Testing performed at [address] [place] [address] Eosinophils/100 leukocytes 0.0 % Normal 0.0-11.0 [facility] Comment on above: Performed By: #### A CBC ####Testing performed at [address] [place] [address] Lymphocytes 1.20 X10 Normal [facility] Comment on above: Performed By: #### A CBC ####Testing performed at [address] [place] [address] Lymphocytes/100 leukocytes 9.7 % Low 20.0-55.0 [facility] Comment on above: Performed By: #### A CBC ####Testing performed at [address] [place] [address] Monocytes 0.6 X10 Normal [facility] Comment on above: Performed By: #### A CBC ####Testing performed at [address] [place] [address] Monocytes/100 leukocytes 4.7 % Normal 0.0-10.0 [facility] Comment on above: Performed By: #### A CBC ####Testing performed at [place] [address] Neutrophils/100 leukocytes 85.5 % High 37.0-75.0 [facility] Comment on above: Performed By: #### A CBC ####Testing performed at [place] [address] Erythrocyte distribution width Auto Ratio (RBC) 13.1 % Normal 11.5-14.5 [facility] Comment on above: Performed By: #### A CBC ####[place] [address] Erythrocytes (RBC) 3.66 /cmm Low 4.0-6.1 [facility] Comment on above: Performed By: #### A CBC ####[place] [address] Hematocrit (HCT) 37.0 % Low 42.0-52.0 [facility] Comment on above: Performed By: #### A CBC ####[place] [address] Hemoglobin mass conc (Bld) 12.8 g/dL Low 14.0-18.0 [facility] Comment on above: Performed By: #### A CBC ####Testing performed at [place] [address] MCH 35.0 pg Normal 26.0-35.0 [facility] Comment on above: Performed By: #### A CBC ####Testing performed at [place] [address] MCHC mass conc (RBC) 34.7 g/dL Normal 27.0-37.0 [facility] Comment on above: Performed By: #### A CBC ####Testing performed at [place] [address] MCV 101.0 fL High 80.0-100.0 [facility] Comment on above: Performed By: #### A CBC ####Testing performed at [place] [address] Platelet mean volume (PMV) 7.5 fL Normal 7.4-11.0 [facility] Comment on above: Performed By: #### A CBC ####Testing performed at [place] [address] Platelets 172 /cmm Normal 130.0-400.0 [facility] Comment on above: Performed By: #### A CBC ####Testing performed at [place] [address] WBC (Leukocytes) 12.1 /cmm High 3.6-11.0 [facility] Comment on above: Performed By: #### A CBC ####[place] [address] CHEM 7 FASTINGon 08-09-2017 BUN (urea nitrogen) 17 mg/dL Normal 7-20 [facility] Comment on above: Performed By: #### M G, CHEM7F ####[place] [address] Creatinine 0.9 mg/dL Normal 0.66-1.25 [facility] Comment on above: Performed By: #### M G, CHEM7F ####[place] [address] eGFR (non-black) Average GFR for 70+ years old = 75. Normal [facility] Comment on above: Result Comment: [employer] Mechanic merna Kidney disease, GFR = <60.Kidney failure, GFR = <15.The GFR estimate is not adjusted for extreme body surface area or acute process, nor has it been validated for women or ethnic groups other than and . Performed By: #### M G, CHEM7F ####Testing performed at [place] [address] EST. GFR, >60 Normal [facility] Comment on above: Performed By: #### M G, CHEM7F ####Testing performed at [place] [address] EST. GFR,Non >60 Normal [facility] Comment on above: Performed By: #### M G, CHEM7F ####[place] [address] Chloride 106 mmol/L Normal 98-107 [facility] Comment on above: Performed By: #### M G, CHEM7F ####Testing performed at [address] [address] CO2 22 mmol/L Normal 22-30 [facility] Comment on above: Performed By: #### M G, CHEM7F ####Testing performed at [address] [address] Glucose mass conc 133 mg/dL High 70-100 [facility] Comment on above: Result Comment: NORM AL <100 mg/dLPREDIABETES 101-126 mg/dLDIABETES 126 mg/dL or higher Performed By: #### M G, CHEM7F ####Testing performed at [address] [address] Potassium molar conc 4.0 mmol/L Normal 3.5-5.1 [facility] Comment on above: Performed By: #### M Kimberly, CHEM7F ####Testing performed at [address] [address] Sodium 137 mmol/L Normal 137-145 [facility] Comment on above: Performed By: #### Gildardo Harris, CHEM7F ####Testing performed at [address] [address] Certificatioon 08-09-2017 [facility] HIM CAC NOTES Normal [facility] MAGNESIUMon 08-09-2017 Magnesium 1.9 mg/dL Normal 1.6-2.3 [facility] Comment on above: Performed By: #### M G, CHEM7F ####Testing performed at [address] [address] NURSING NOTEon 08-09-2017 [facility] NOTES Normal [facility] NOT[facility] Normal [facility] NOT[facility] Normal [facility] NOT[facility] Normal [facility] NOT[facility] Normal [facility] NOTES Normal [facility] NOT[facility] Normal [facility] PLAN OF CAREon 08-09-2017 [facility] NOTES Normal [facility] PROGRESSon 08-09-2017 [facility] NOTES Normal [facility] NOTES Normal [facility] NOTES Normal [facility] NOT[facility] Normal [facility] NOTES Normal [facility] XR KNEE LEFT 2 VIEWSon 08-09 XR KNEE LEFT 2 VIEWS Knee, 08/08/2017 4:2 8 PMIndication:tkaComparison :05/11/2017.FINDINGS/IMPRE SSION:AP and lateral views of the left knee were obtained. There are findings consistent with recent left total knee arthroplasty, with hardware in good alignment and position. Immediate postsurgical changes within the regional soft tissues are noted. No complications are evident. Normal [facility] Anes Post-opon 08-08-2017 [facility] CAC NOTES Normal [facility] Anes Pre-opon 08-08-2017 [facility] CAC NOTES Normal [facility] BRIEF OP NOTon 08-08-2017 [facility] HIM CAC NOTES Normal [facility] CONSULTon 08-08-2017 [facility] NOTES Normal [facility] MRSA SCREENon 08-08-2017 MRSA SCREEN Negative [facility] Comment on above: Performed By: #### M RSAST ####[place] [address] STAPH AUREUS SCREEN Negative [facility] Comment on above: Result Comment: TEST ING PERFORMED BY PCR Performed By: #### M RSAST ####[place] [address] NURSING NOTEon 08-08-2017 [facility] NOTES Normal [facility] NOT[facility] Normal [facility] NOTES Normal [facility] NOT[facility] Normal [facility] OP NOTEon 08-08-2017 [facility] NOTES Normal [facility] OR NURSINGon 08-08-2017 [facility] HIM CAC NOTES [facility] PLAN OF CAREon 08-08-2017 [facility] NOTES Normal [facility] PROGRESSon 08-08-2017 [facility] NOTES Normal [facility] NOT[facility] Normal [facility] NOT[facility] REPEAT ABO/RHon 08-08-2017 REPEAT ABO/RH Positive [facility] Comment on above: Performed By: #### R ABRH ####Testing performed at [place] [address] BMP FASTINGon 07-21-2017 BUN (urea nitrogen) 22 mg/dL High 7-20 [facility] Comment on above: Performed By: #### B MPF, PT, ACBC ####Testing [place] [id number] Creatinine 0.9 mg/dL Normal 0.66-1.25 [facility] Comment on above: Performed By: #### B MPF, PT, ACBC ####Testing performed at [address] [address] eGFR (non-black) Average GFR for 70+ years old = 75. Normal [facility] Comment on above: Result Comment: [employer] Mechanic merna Kidney disease, GFR = <60.Kidney failure, GFR = <15.The GFR estimate is not adjusted for extreme body surface area or acute process, nor has it been validated for women or ethnic groups other than and . Performed By: #### B MPF, PT, ACBC ####Testing performed at [place] [address] EST. GFR, >60 Normal [facility] Comment on above: Performed By: #### B MPF, PT, ACBC ####Testing performed at [place] [address] EST. GFR,Non >60 Normal [facility] Comment on above: Performed By: #### B MPF, PT, ACBC ####Testing performed at [place] [place] [id number] Anion gap 11 mmol/L Normal 8-16 [facility] Comment on above: Performed By: #### B MPF, PT, ACBC ####Testing performed at [place] [address] Calcium 9.9 mg/dL Normal 8.4-10.2 [facility] Comment on above: Performed By: #### B MPF, PT, ACBC ####Testing performed at [place] [address] Chloride 102 mmol/L Normal 98-107 [facility] Comment on above: Performed By: #### B MPF, PT, ACBC ####Testing performed at [place] [address] CO2 24 mmol/L Normal 22-30 [facility] Comment on above: Performed By: #### B MPF, PT, ACBC ####Testing performed at [address] [address] Glucose mass conc 99 mg/dL Normal 70-100 [facility] Comment on above: Result Comment: NORM AL <100 mg/dLPREDIABETES 101-126 mg/dLDIABETES 126 mg/dL or higher Performed By: #### B MPF, PT, ACBC ####Testing performed at [address] [address] Potassium molar conc 4.4 mmol/L Normal 3.5-5.1 [facility] Comment on above: Performed By: #### B MPF, PT, ACBC ####Testing performed at [address] [address] Sodium 137 mmol/L Normal 137-145 [facility] Comment on above: Performed By: #### B MPF, PT, ACBC ####Testing performed at [address] [address] CBCon 07-21-2017 ABSOLUTE BAS 0.1 X10 Normal [facility] Comment on above: Performed By: #### B MPF, PT, ACBC ####Testing performed at [address] [address] ABSOLUTE EOS 0.20 X10 Normal [facility] Comment on above: Performed By: #### B MPF, PT, ACBC ####Testing performed at [address] [address] ABSOLUTE NEUTROPHIL COUNT 5.0 x10 Normal 1.0-7.0 [facility] Comment on above: Performed By: #### B MPF, PT, ACBC ####Testing performed at [address] [address] Basophils/100 WBC Auto (Bld) 0.8 % Normal 0.0-2.0 [facility] Comment on above: Performed By: #### B MPF, PT, ACBC ####Testing performed at [address] [address] DTYPE AUTO DIFF Normal [facility] Comment on above: Performed By: #### B MPF, PT, ACBC ####Testing performed at [address] [address] Eosinophils/100 leukocytes 2.8 % Normal 0.0-11.0 [facility] Comment on above: Performed By: #### B MPF, PT, ACBC ####Testing performed at [address] [address] Lymphocytes 2.30 X10 Normal [facility] Comment on above: Performed By: #### B MPF, PT, ACBC ####Testing performed at [address] [address] Lymphocytes/100 leukocytes 27.5 % Normal 20.0-55.0 [facility] Comment on above: Performed By: #### B MPF, PT, ACBC ####Testing performed at [address] [address] Monocytes 0.9 X10 Normal [facility] Comment on above: Performed By: #### B MPF, PT, ACBC ####Testing performed at [address] [address] Monocytes/100 leukocytes 10.3 % High 0.0-10.0 [facility] Comment on above: Performed By: #### B MPF, PT, ACBC ####Testing performed at [address] [address] Neutrophils/100 leukocytes 58.6 % Normal 37.0-75.0 [facility] Comment on above: Performed By: #### B MPF, PT, ACBC ####Testing performed at [address] [address] Erythrocyte distribution width Auto Ratio (RBC) 13.3 % Normal 11.5-14.5 [facility] Comment on above: Performed By: #### B MPF, PT, ACBC ####Testing performed at [address] [address] Erythrocytes (RBC) 4.21 /cmm Normal 4.0-6.1 [facility] Comment on above: Performed By: #### B MPF, PT, ACBC ####Testing performed at [address] [address] Hematocrit (HCT) 42.4 % Normal 42.0-52.0 [facility] Comment on above: Performed By: #### B MPF, PT, ACBC ####Testing performed at [place] [address] Hemoglobin mass conc (Bld) 15.0 g/dL Normal 14.0-18.0 [facility] Comment on above: Performed By: #### B MPF, PT, ACBC ####Testing performed at [place] [address] MCH 35.7 pg High 26.0-35.0 [facility] Comment on above: Performed By: #### B MPF, PT, ACBC ####[place] [address] MCHC mass conc (RBC) 35.5 g/dL Normal 27.0-37.0 [facility] Comment on above: Performed By: #### B MPF, PT, ACBC ####Testing performed at [place] [address] MCV 100.7 fL High 80.0-100.0 [facility] Comment on above: Performed By: #### B MPF, PT, ACBC ####[place] [address] Platelet mean volume (PMV) 7.4 fL Normal 7.4-11.0 [facility] Comment on above: Performed By: #### B MPF, PT, ACBC ####Testing performed at [place] [address] Platelets 187 /cmm Normal 130.0-400.0 [facility] Comment on above: Performed By: #### B MPF, PT, ACBC ####Testing performed at [address] [address] WBC (Leukocytes) 8.5 /cmm Normal 3.6-11.0 [facility] Comment on above: Performed By: #### B MPF, PT, ACBC ####Testing performed at [address] [address] HEMOGLOBIN A1Con 07-21-2017 Glucose mass conc 108 mg/dL Normal [facility] Comment on above: Performed By: #### H A1CT ####[place] [address] Hemoglobin A1c/Hemoglobin.total mass fraction (Bld) 5.4 % Normal <6 [facility] Comment on above: Result Comment: NORM AL <5.7%PREDIABETES 5.7-6.4%DIABETES 6.5% OR HIGHER Performed By: #### H A1CT ####[place] [address] MRSA SCREENon 07-21-2017 MRSA SCREEN Negative Normal [facility] Comment on above: Performed By: #### M RSAST ####[place] [address] STAPH AUREUS SCREEN Positive [facility] Comment on above: Result Comment: TEST ING PERFORMED BY PCR Performed By: #### M RSAST ####[place] [address] PROGRESSon 07-21-2017 [facility] NOTES Normal [facility] PROTIMEon 07-21-2017 INR Coag RelTime (PPP) 1.04 {INR} Normal 0.88-1.12 [facility] Comment on above: Result Comment: 2.0- 3.0 THERAPEUTIC RANGE2.5-3.5 PROSTHETIC VALVE RANGE Performed By: #### B MPF, PT, ACBC ####[place] [address] Prothrombin time (PT) Coag time (PPP) 13.5 s Normal 11.6-14.0 [facility] Comment on above: Performed By: #### B MPF, PT, ACBC ####[place] [address] TYPE AND SCREEN CROSSMATCH C ONVERTIBLEon 07-21-2017 TYPE AND SCREEN CROSSMATCH CONVERTIBLE UNITS ORDERED 0 WORKUP EXPIRES 08/11/2017 ABO/RH(D) A POSITIVE ANTIBODY SCREEN NEGATIVE ARM BAND NUMBER [id number] Normal [facility] Comment on above: Performed By: #### T SCC ####[place] [address] URINE MACROSCOPICon 07-21-19 18 Bilirubin Ql (U) Negative Normal NEGATIVE [facility] Comment on above: Performed By: #### U MAC ####Testing performed at [address] [place] [address] URINE HEMOGLOBIN Negative Normal NEGATIVE [facility] Comment on above: Performed By: #### U MAC ####Testing performed at [address] [place] [address] URINE KETONE Negative Normal NEGATIVE [facility] Comment on above: Performed By: #### U MAC ####Testing performed at [address] [place] [address] URINE LEUKOTEST Negative Normal NEGATIVE [facility] Comment on above: Performed By: #### U MAC ####Testing performed at [address] [place] [address] URINE NITRATES Negative Normal NEGATIVE [facility] Comment on above: Performed By: #### U MAC ####Testing performed at [address] [place] [address] URINE SPEC GRAVITY 1.020 Normal 1.010-1.025 [facility] Comment on above: Performed By: #### U MAC ####Testing performed at [address] [place] [address] URINE TOTAL PROTEIN Negative Normal NEGATIVE [facility] Comment on above: Performed By: #### U MAC ####Testing performed at [address] [place] [address] Urine, clarity CLEAR Normal CLEAR [facility] Comment on above: Performed By: #### U MAC ####Testing performed at [address] [place] [address] Urine, color YELLOW Normal YELLOW [facility] Comment on above: Performed By: #### U MAC ####Testing performed at [address] [place] [address] Urine, glucose presence Negative Normal NEGATIVE [facility] Comment on above: Performed By: #### U MAC ####Testing performed at [address] [place] [address] Urine, pH 5.5 [pH] Normal 5.0-7.0 [facility] Comment on above: Performed By: #### U MAC ####Testing performed at [address] [address] Urine, urobilinogen 0.2 mg/dl Normal 0.2-1.0 [facility] Comment on above: Performed By: #### U MAC ####Testing performed at [address] [address] PROCEDUREon 07-07-2017 [facility] NOTES Normal [facility] PROCEDUREon 05-11-2017 [facility] NOTES Normal [facility] Vital Signs Date Time Vital Sign Value Performing Clinician Facility 12-11-2024 12:14-0400 Body mass index (BMI) [Ratio] 32.36 kg/m2 Ailin Pierson MD Work Phone: [facility] 12-11-2024 12:14-0400 Body weight 108.23 kg Ailin Pierson MD Work Phone: [facility] 12-11-2024 12:14-0400 Diastolic blood pressure 57 mm[Hg] Ailin Pierson MD Work Phone: [facility] 12-11-2024 12:14-0400 Heart rate 81 /min Ailin Pierson MD Work Phone: [facility] 12-11-2024 12:14-0400 Respiratory rate 16 /min Ailin Pierson MD Work Phone: [facility] 12-11-2024 12:14-0400 SaO2% (BldA) [Mass fraction] 95 % Ailin Pierson MD Work Phone: [facility] 12-11-2024 12:14-0400 Systolic blood pressure 98 mm[Hg] Ailin Pierson MD Work Phone: [facility] 11-14-2024 08:33-0400 Body height 180.3 cm Pst 1 [facility] 11-14-2024 08:33-0400 Body mass index (BMI) [Ratio] 32.36 kg/m2 Pst 1 [facility] 11-14-2024 08:33-0400 Body temperature 96.8 [degF] Pst 1 [facility] 11-14-2024 08:33-0400 Body weight 105.23 kg Pst 1 [facility] 11-14-2024 08:33-0400 Diastolic blood pressure 85 mm[Hg] Pst 1 [facility] 11-14-2024 08:33-0400 Heart rate 67 /min Pst 1 [facility] 11-14-2024 08:33-0400 Respiratory rate 18 /min Pst 1 [facility] 11-14-2024 08:33-0400 SaO2% (BldA) [Mass fraction] 96 % Pst 1 [facility] 11-14-2024 08:33-0400 Systolic blood pressure 100 mm[Hg] Pst 1 [facility] 10-10-2024 08:01-0400 Body height 182.9 cm Aliin Pierson MD Work Phone: [facility] 10-10-2024 08:01-0400 Body mass index (BMI) [Ratio] 32.44 kg/m2 Ailin Pierson MD Work Phone: [facility] 10-10-2024 08:01-0400 Body weight 108.5 kg Ailin Pierson MD Work Phone: [facility] 10-10-2024 08:01-0400 Diastolic blood pressure 61 mm[Hg] Ailin Pierson MD Work Phone: [facility] 10-10-2024 08:01-0400 Heart rate 81 /min Ailin Pierson MD Work Phone: [facility] 10-10-2024 08:01-0400 SaO2% (BldA) [Mass fraction] 98 % Ailin Pierson MD Work Phone: [facility] 10-10-2024 08:01-0400 Systolic blood pressure 102 mm[Hg] Ailin Pierson MD Work Phone: [facility] 09-18-2024 14:04-0400 Body temperature 97.7 [degF] Vince Huffman MD Work Phone: [facility] 09-18-2024 14:04-0400 Diastolic blood pressure 58 mm[Hg] Vince Huffman MD Work Phone: [facility] 09-18-2024 14:04-0400 Heart rate 64 /min Vince Huffman MD Work Phone: [facility] 09-18-2024 14:04-0400 SaO2% (BldA) [Mass fraction] 97 % Vince Huffman MD Work Phone: [facility] 09-18-2024 14:04-0400 Systolic blood pressure 111 mm[Hg] Vince Huffman MD Work Phone: [facility] 09-11-2024 14:15-0400 Body temperature 97.11 [degF] Vince Huffman MD Work Phone: [facility] 09-11-2024 14:15-0400 Diastolic blood pressure 66 mm[Hg] Vince Huffman MD Work Phone: [facility] 09-11-2024 14:15-0400 Heart rate 82 /min Vince Huffman MD Work Phone: [facility] 09-11-2024 14:15-0400 SaO2% (BldA) [Mass fraction] 97 % Vince Huffman MD Work Phone: [facility] 09-11-2024 14:15-0400 Systolic blood pressure 114 mm[Hg] Vince Huffman MD Work Phone: [facility] 09-04-2024 14:09-0400 Body temperature 97.5 [degF] Vince Huffman MD Work Phone: [facility] 09-04-2024 14:09-0400 Diastolic blood pressure 67 mm[Hg] Vince Huffman MD Work Phone: [facility] 09-04-2024 14:09-0400 Heart rate 80 /min Vince Huffman MD Work Phone: [facility] 09-04-2024 14:09-0400 SaO2% (BldA) [Mass fraction] 99 % Vince Huffman MD Work Phone: [facility] 09-04-2024 14:09-0400 Systolic blood pressure 142 mm[Hg] Vince Huffman MD Work Phone: [facility] 08-29-2024 17:17-0400 Body temperature 98 [degF] Dr. Ailin Pierson MD Work Phone: [facility] 08-29-2024 17:17-0400 Diastolic blood pressure 70 mm[Hg] Dr. Ailin Pierson MD Work Phone: 4(314)872-801989 [place] [address] 08-29-2024 17:17-0400 Heart rate 77 /min Dr. Ailin Pierson MD Work Phone: 2(916)060-265989 [place] [address] 08-29-2024 17:17-0400 Respiratory rate 16 /min Dr. Ailin Pierson MD Work Phone: 7(745)841-887488 [place] [address] 08-29-2024 17:17-0400 SaO2% (BldA) [Mass fraction] 99 % Dr. Ailin Pierson MD Work Phone: 7(915)983-857488 [place] [address] 08-29-2024 17:17-0400 Systolic blood pressure 142 mm[Hg] Dr. Ailin Pierson MD Work Phone: 8(668)577-727589 [place] [address] 08-29-2024 12:39-0400 Body height 182.[address] Ailin Pierson MD Work Phone: 3(574)187-879088 [place] [address] 08-29-2024 12:39-0400 Body mass index (BMI) [Ratio] 31.6 kg/m2 Dr. Ailin Pierson MD Work Phone: 3(919)486-177089 [place] [address] 08-29-2024 12:39-0400 Body weight 105.[address] Ailin Pierson MD Work Phone: [facility] 08-28-2024 14:13-0400 Body temperature 97.5 [degF] Solo Baker MD Work Phone: [facility] 08-28-2024 14:13-0400 Diastolic blood pressure 63 mm[Hg] Solo Baker MD Work Phone: [facility] 08-28-2024 14:13-0400 Heart rate 81 /min Solo Baker MD Work Phone: [facility] 08-28-2024 14:13-0400 SaO2% (BldA) [Mass fraction] 98 % Solo Baker MD Work Phone: [facility] 08-28-2024 14:13-0400 Systolic blood pressure 116 mm[Hg] Solo Baker MD Work Phone: [facility] 08-28-2024 08:51-0400 Body height 182.9 cm Ailin Pierson MD Work Phone: [facility] 08-28-2024 08:51-0400 Body mass index (BMI) [Ratio] 32.01 kg/m2 Ailin Pierson MD Work Phone: [facility] 08-28-2024 08:51-0400 Body weight 107.05 kg Ailin Pierson MD Work Phone: [facility] 08-28-2024 08:51-0400 Diastolic blood pressure 62 mm[Hg] Ailin Pierson MD Work Phone: [facility] 08-28-2024 08:51-0400 Heart rate 74 /min Ailin Pierson MD Work Phone: [facility] 08-28-2024 08:51-0400 SaO2% (BldA) [Mass fraction] 96 % Ailin Pierson MD Work Phone: [facility] 08-28-2024 08:51-0400 Systolic blood pressure 110 mm[Hg] Ailin Pierson MD Work Phone: [facility] 08-21-2024 14:08-0400 Body temperature 98.1 [degF] Sameer Rendon MD Work Phone: [facility] 08-21-2024 14:08-0400 Diastolic blood pressure 67 mm[Hg] Sameer Rendon MD Work Phone: [facility] 08-21-2024 14:08-0400 Heart rate 80 /min Sameer Rendon MD Work Phone: [facility] 08-21-2024 14:08-0400 Respiratory rate 18 /min Sameer Rendon MD Work Phone: [facility] 08-21-2024 14:08-0400 SaO2% (BldA) [Mass fraction] 96 % Sameer Rendon MD Work Phone: [facility] 08-21-2024 14:08-0400 Systolic blood pressure 100 mm[Hg] Sameer Rendon MD Work Phone: [facility] 08-14-2024 14:17-0400 Body temperature 97.9 [degF] Vince Huffman MD Work Phone: [facility] 08-14-2024 14:17-0400 Diastolic blood pressure 72 mm[Hg] Vince Huffman MD Work Phone: [facility] 08-14-2024 14:17-0400 Heart rate 85 /min Vince Huffman MD Work Phone: [facility] 08-14-2024 14:17-0400 SaO2% (BldA) [Mass fraction] 96 % Vince Huffman MD Work Phone: [facility] 08-14-2024 14:17-0400 Systolic blood pressure 122 mm[Hg] Vince Huffman MD Work Phone: [facility] 06-29-2024 10:46-0500 Body mass index (BMI) [Ratio] 32.96 kg/m2 Vince Huffman MD Work Phone: [facility] 06-29-2024 10:46-0500 Body temperature 98.01 [degF] Vince Huffman MD Work Phone: [facility] 06-29-2024 10:46-0500 Body weight 110.22 kg Vince Huffman MD Work Phone: [facility] 06-29-2024 10:46-0500 Diastolic blood pressure 69 mm[Hg] Vince Huffman MD Work Phone: [facility] 06-29-2024 10:46-0500 Heart rate 71 /min Vince Huffman MD Work Phone: [facility] 06-29-2024 10:46-0500 Respiratory rate 15 /min Vince Huffman MD Work Phone: [facility] 06-29-2024 10:46-0500 SaO2% (BldA) [Mass fraction] 98 % Vince Huffman MD Work Phone: [facility] 06-29-2024 10:46-0500 Systolic blood pressure 118 mm[Hg] Vince Huffman MD Work Phone: [facility] 06-26-2024 16:28-0500 Body mass index (BMI) [Ratio] 33.09 kg/m2 Ailin Pierson MD Work Phone: [facility] 06-26-2024 16:28-0500 Body weight 110.68 kg Ailin Pierson MD Work Phone: [facility] 06-26-2024 16:28-0500 Diastolic blood pressure 70 mm[Hg] Ailin Pierson MD Work Phone: [facility] 06-26-2024 16:28-0500 Heart rate 78 /min Ailin Pierson MD Work Phone: [facility] 06-26-2024 16:28-0500 Respiratory rate 18 /min Ailin Pierson MD Work Phone: [facility] 06-26-2024 16:28-0500 SaO2% (BldA) [Mass fraction] 98 % Ailin Pierson MD Work Phone: [facility] 06-26-2024 16:28-0500 Systolic blood pressure 112 mm[Hg] Ailin Pierson MD Work Phone: [facility] 06-21-2024 14:49-0500 Body temperature 98.2 [degF] Dr. Ailin Pierson MD Work Phone: [facility] 06-21-2024 14:49-0500 Diastolic blood pressure 61 mm[Hg] Dr. Ailin Pierson MD Work Phone: 4(098)691-058089 [place] [address] 06-21-2024 14:49-0500 Heart rate 74 /min Dr. Ailin Pierson MD Work Phone: 3(763)012-074189 [place] [address] 06-21-2024 14:49-0500 Respiratory rate 18 /min Dr. Ailin Pierson MD Work Phone: 8(047)273-945488 [place] [address] 06-21-2024 14:49-0500 SaO2% (BldA) [Mass fraction] 97 % Dr. Ailin Pierson MD Work Phone: 5(716)291-925288 [place] [address] 06-21-2024 14:49-0500 Systolic blood pressure 119 mm[Hg] Dr. Ailin Pierson MD Work Phone: 2(445)220-944788 [place] [address] 06-20-2024 02:45-0500 Inhaled oxygen flow rate 2 L/min Dr. Ailin Pierson MD Work Phone: 8(116)010-805988 [place] [address] 06-19-2024 12:35-0500 Body mass index (BMI) [Ratio] 32.8 kg/m2 Dr. Ailin Pierson MD Work Phone: 6(715)618-453388 [place] [address] 06-19-2024 12:35-0500 Body weight 109.[address] Ailin Pierson MD Work Phone: 8(546)989-112088 [place] [address] 05-24-2024 15:43-0500 Body temperature 97.6 [degF] Dr. Ailin Pierson MD Work Phone: 8(911)925-440288 [place] [address] 05-24-2024 15:43-0500 Diastolic blood pressure 76 mm[Hg] Dr. Ailin Pierson MD Work Phone: 0(837)732-181288 [place] [address] 05-24-2024 15:43-0500 Heart rate 71 /min Dr. Ailin Pierson MD Work Phone: 4(544)859-520488 [place] [address] 05-24-2024 15:43-0500 Respiratory rate 18 /min Dr. Ailin Pierson MD Work Phone: 5(911)746-682988 [place] [address] 05-24-2024 15:43-0500 SaO2% (BldA) [Mass fraction] 97 % Dr. Ailin Peirson MD Work Phone: 5(283)476-203988 [place] [address] 05-24-2024 15:43-0500 Systolic blood pressure 114 mm[Hg] Dr. Ailin Pierson MD Work Phone: [facility] 05-24-2024 14:58-0500 Body mass index (BMI) [Ratio] 32.4 kg/m2 Dr. Ailin Pierson MD Work Phone: [facility] 05-24-2024 14:58-0500 Body weight 108.[address] Ailin Pierson MD Work Phone: [facility] 05-16-2024 10:02-0500 Body height 182.9 cm Sarah Coyner [employer] DECORATOR.DIRECTOR OF COMPENSATION Work Phone: [facility] 05-16-2024 10:02-0500 Body mass index (BMI) [Ratio] 32.69 kg/m2 Sarah Coyner WEDDING DECORATOR.DIRECTOR OF COMPENSATION Work Phone: [facility] 05-16-2024 10:02-0500 Body weight 109.32 kg Sarah Coyner WEDDING DECORATOR.DIRECTOR OF COMPENSATION Work Phone: [facility] 05-09-2024 14:00-0500 Diastolic blood pressure 69 mm[Hg] Dr. Ailin Pierson MD Work Phone: 4(654)815-324289 [place] [address] 05-09-2024 14:00-0500 Heart rate 91 /min Dr. Ailin Pierson MD Work Phone: [facility] 05-09-2024 14:00-0500 Respiratory rate 16 /min Dr. Ailin Pierson MD Work Phone: [facility] 05-09-2024 14:00-0500 SaO2% (BldA) [Mass fraction] 98 % Dr. Ailin Pierson MD Work Phone: [facility] 05-09-2024 14:00-0500 Systolic blood pressure 114 mm[Hg] Dr. Ailin Pierson MD Work Phone: [facility] 05-09-2024 10:31-0500 Body temperature 98.1 [degF] Dr. Ailin Pierson MD Work Phone: 8(552)753-495489 [place] [address] 04-23-2024 09:11-0500 Body mass index (BMI) [Ratio] 30.43 kg/m2 Ailin Pierson MD Work Phone: [facility] 04-23-2024 09:11-0500 Body weight 111 kg Ailin Pierson MD Work Phone: [facility] 04-23-2024 09:11-0500 Diastolic blood pressure 78 mm[Hg] Ailin Pierson MD Work Phone: [facility] 04-23-2024 09:11-0500 Heart rate 77 /min Ailin Pierson MD Work Phone: [facility] 04-23-2024 09:11-0500 Respiratory rate 16 /min Ailin Pierson MD Work Phone: [facility] 04-23-2024 09:11-0500 Systolic blood pressure 118 mm[Hg] Ailin Pierson MD Work Phone: [facility] 01-05-2024 09:29-0400 Body mass index (BMI) [Ratio] 31.08 kg/m2 Vince Huffman MD Work Phone: [facility] 01-05-2024 09:29-0400 Body temperature 98.01 [degF] Vince Huffman MD Work Phone: [facility] 01-05-2024 09:29-0400 Body weight 113.4 kg Vince Huffman MD Work Phone: [facility] 01-05-2024 09:29-0400 Diastolic blood pressure 71 mm[Hg] Vince Huffman MD Work Phone: [facility] 01-05-2024 09:29-0400 Heart rate 62 /min Vince Huffman MD Work Phone: [facility] 01-05-2024 09:29-0400 Respiratory rate 14 /min Vince Huffman MD Work Phone: [facility] 01-05-2024 09:29-0400 SaO2% (BldA) [Mass fraction] 95 % Vince Huffman MD Work Phone: [facility] 01-05-2024 09:29-0400 Systolic blood pressure 120 mm[Hg] Vince Huffman MD Work Phone: [facility] 01-03-2024 08:36-0400 Body mass index (BMI) [Ratio] 30.46 kg/m2 Juan Blanton Jr., MD Work Phone: [facility] 01-03-2024 08:36-0400 Body weight 111.13 kg Juan Blanton Jr., MD Work Phone: [facility] 12-29-2023 09:52-0400 Body height 191 cm Ailin Pierson MD Work Phone: [facility] 12-29-2023 09:52-0400 Body mass index (BMI) [Ratio] 31.41 kg/m2 Ailin Pierson MD Work Phone: [facility] 12-29-2023 09:52-0400 Body weight 114.58 kg Ailin Pierson MD Work Phone: [facility] 12-29-2023 09:52-0400 Diastolic blood pressure 78 mm[Hg] Ailin Pierson MD Work Phone: [facility] 12-29-2023 09:52-0400 Heart rate 66 /min Ailin Pierson MD Work Phone: [facility] 12-29-2023 09:52-0400 SaO2% (BldA) [Mass fraction] 96 % Ailin Pierson MD Work Phone: [facility] 12-29-2023 09:52-0400 Systolic blood pressure 120 mm[Hg] Ailin Pierson MD Work Phone: [facility] 12-06-2023 14:10-0400 Body mass index (BMI) [Ratio] 34.45 kg/m2 Juan Blanton Jr., MD Work Phone: [facility] 12-06-2023 14:10-0400 Body weight 115.21 kg Juan Blanton Jr., MD Work Phone: [facility] 10-11-2023 08:29-0400 Body mass index (BMI) [Ratio] 34.45 kg/m2 Juan Blanton Jr., MD Work Phone: [facility] 10-11-2023 08:29-0400 Body weight 115.21 kg Juan Blanton Jr., MD Work Phone: [facility] 09-28-2023 09:17-0400 Body mass index (BMI) [Ratio] 34.45 kg/m2 Kayla Older WEDDING DECORATOR.DIRECTOR OF COMPENSATION Work Phone: [facility] 09-28-2023 09:17-0400 Body weight 115.21 kg Kayla Older WEDDING DECORATOR.DIRECTOR OF COMPENSATION Work Phone: [facility] 09-28-2023 09:17-0400 Diastolic blood pressure 80 mm[Hg] Kayla Older WEDDING DECORATOR.DIRECTOR OF COMPENSATION Work Phone: [facility] 09-28-2023 09:17-0400 Heart rate 60 /min Kayla Older WEDDING DECORATOR.DIRECTOR OF COMPENSATION Work Phone: [facility] 09-28-2023 09:17-0400 Respiratory rate 16 /min Kayla Older WEDDING DECORATOR.DIRECTOR OF COMPENSATION Work Phone: [facility] 09-28-2023 09:17-0400 SaO2% (BldA) [Mass fraction] 97 % Kayla Older WEDDING DECORATOR.DIRECTOR OF COMPENSATION Work Phone: [facility] 09-28-2023 09:17-0400 Systolic blood pressure 124 mm[Hg] Kayla Older WEDDING DECORATOR.DIRECTOR OF COMPENSATION Work Phone: [facility] 2023 13:15-0500 Body height 182.9 cm Juan Blanton Jr., MD Work Phone: [facility] 2023 13:15-0500 Body weight 113.4 kg Juan Blanton Jr., MD Work Phone: [facility] 04-19-2023 10:07-0500 Body height 182.9 cm Juan Blanton Jr., MD Work Phone: [facility] 04-19-2023 10:07-0500 Body weight 113.85 kg Juan Blanton Jr., MD Work Phone: [facility] 04-19-2023 10:07-0500 Diastolic blood pressure 76 mm[Hg] Juan Blanton Jr., MD Work Phone: [facility] 04-19-2023 10:07-0500 Heart rate 84 /min Juan Blanton Jr., MD Work Phone: [facility] 04-19-2023 10:07-0500 Respiratory rate 18 /min Juan Blanton Jr., MD Work Phone: [facility] 04-19-2023 10:07-0500 Systolic blood pressure 125 mm[Hg] Juan Blanton Jr., MD Work Phone: [facility] 03-29-2023 15:12-0400 Body height 182.9 cm Dat Jones PA-C Work Phone: [facility] 03-29-2023 15:12-0400 Body temperature 98.29 [degF] Dat Jones PA-C Work Phone: [facility] 03-29-2023 15:12-0400 Body weight 114.67 kg Dat Jones PA-C Work Phone: [facility] 03-29-2023 15:12-0400 Diastolic blood pressure 70 mm[Hg] Dat Jones PA-C Work Phone: [facility] 03-29-2023 15:12-0400 Heart rate 86 /min Dat Jones PA-C Work Phone: [facility] 03-29-2023 15:12-0400 Respiratory rate 14 /min Dat Jones PA-C Work Phone: [facility] 03-29-2023 15:12-0400 SaO2% (BldA) [Mass fraction] 97 % Dat Jones PA-C Work Phone: [facility] 03-29-2023 15:12-0400 Systolic blood pressure 110 mm[Hg] Dat Jones PA-C Work Phone: [facility] 03-25-2022 07:53-0400 Body weight 117.03 kg Kayla Older WEDDING DECORATOR.DIRECTOR OF COMPENSATION Work Phone: [facility] 03-25-2022 07:53-0400 Diastolic blood pressure 86 mm[Hg] Kayla Older WEDDING DECORATOR.DIRECTOR OF COMPENSATION Work Phone: [facility] 03-25-2022 07:53-0400 Heart rate 68 /min Kayla Older WEDDING DECORATOR.DIRECTOR OF COMPENSATION Work Phone: [facility] 03-25-2022 07:53-0400 Respiratory rate 16 /min Kayla Older WEDDING DECORATOR.DIRECTOR OF COMPENSATION Work Phone: [facility] 03-25-2022 07:53-0400 Systolic blood pressure 128 mm[Hg] Kayla Older WEDDING DECORATOR.DIRECTOR OF COMPENSATION Work Phone: [facility] Encounters Encounter Date Encounter Type Care Provider Facility Start: 01-01-2025 ambulatory [facility] Facility[facility] Start: 12-28-2024 End: 12-28-2024 Patient Outreach Joseluis Lawton RN Work Phone: [employer] Comment on above: Initial phone contac t for Transitional Care Management Start: 12-26-2024 End: 12-26-2024 ambulatory Arsen Israel RN Work Phone: [employer] Start: 12-26-2024 End: 12-26-2024 Evaluation and management of inpatient Arsen Israel RN Work Phone: [employer] Comment on above: Transition Of Care ( TCM Inpatient reach in ) Start: 12-24-2024 End: 12-27-2024 Evaluation and management of inpatient JIMBO AN Facility:[facility] Start: 12-24-2024 End: 12-24-2024 Telephone encounter Juan Malloy (Hist) Urology Comment on above: Patient Update Start: 12-19-2024 End: 12-19-2024 ambulatory [facility] Facility[facility] Start: 12-19-2024 End: 12-19-2024 Subsequent hospital visit by physician Sherri [facility] Wsryan ([facility]-Stat) Work Phone: Cat Scan Comment on above: Aortic dilatation [I 77.819] Start: 12-18-2024 End: 12-18-2024 Patient Outreach Sophia Garay [employer] Comment on above: High Risk phone cont act for Transitional Care Management Start: 12-17-2024 End: 12-17-2024 ambulatory Nini Islas WEDDING DECORATOR.DIRECTOR OF COMPENSATION Work Phone: [employer] Comment on above: Hypotension, unspeci fied hypotension type (Primary Dx); Lightheaded Start: 12-17-2024 End: 12-17-2024 Patient Outreach Sophia Garay [employer] Comment on above: Weekly phone contact (Recurring) for Transitional Care Management Start: 12-17-2024 End: 12-17-2024 Telemedicine consultation with patient Nini Islas WEDDING DECORATOR.DIRECTOR OF COMPENSATION Work Phone: [employer] Start: 12-11-2024 End: 12-11-2024 ambulatory [facility] Facility[facility] Start: 12-11-2024 End: 12-11-2024 Office outpatient visit 25 minutes Ailin Pierson MD Work Phone: Internal Medicine [place] Comment on above: Hospital discharge f ollow-up (Primary Dx); S/P TURP; Aortic dilatation; Benign prostatic hyperplasia without lower urinary tract symptoms Start: 12-11-2024 End: 12-11-2024 [facility] Facility:[facility] Start: 12-10-2024 End: 12-10-2024 Patient Outreach Sophia Garay [employer] Comment on above: Weekly phone contact (Recurring) for Transitional Care Management Start: 12-03-2024 End: 12-03-2024 Patient Outreach Sophia Garay [employer] Comment on above: Initial phone contac t for Transitional Care Management Start: 11-30-2024 End: 11-30-2024 Telephone encounter Juan Blanton MD Work Phone: [facility] Comment on above: Appointment Start: 11-29-2024 End: 11-29-2024 ambulatory Rochelle Medrano RN Work Phone: [employer] Start: 11-29-2024 End: 11-29-2024 Evaluation and management of inpatient Rochelle Medrano RN Work Phone: [employer] Comment on above: Transition Of Care ( Inpatient reach in) Start: 11-28-2024 End: 11-29-2024 ambulatory JUAN BLANTON JR Facility:[facility] Start: 11-19-2024 ambulatory [facility] Start: 11-19-2024 End: 11-19-2024 Subsequent hospital visit by physician Amaya [facility] Work Phone: Cardiology Lab Comment on above: Abnormal EKG [R94.31 ] Start: 11-14-2024 End: 11-14-2024 Telephone encounter Laci Alexandre APRN.CNP Work Phone: Pre Surgical Testing Comment on above: Opened In Error Appointment Start: 11-14-2024 End: 11-14-2024 Admission to [facility] 1 Pre Surgical Testing Start: 11-14-2024 End: 11-14-2024 ambulatory Pst 1 Pre Surgical Testing Comment on above: Preop examination (P rimary Dx); Obesity, Class I, BMI 30-34.9; Mixed hyperlipidemia; Primary hypertension Start: 11-14-2024 End: 11-14-2024 Preprocedural examination done Pst 1 [facility] Work Phone: Start: 11-14-2024 End: 11-14-2024 [facility] Facility:[facility] Start: 11-05-2024 End: 11-05-2024 Nursing evaluation of patient and report Nurse Urol Link Work Phone: Urology Comment on above: Encounter for Mahoney catheter replacement (Primary Dx) Start: 11-05-2024 End: 11-05-2024 ambulatory [facility] Facility[facility] Start: 10-25-2024 End: 12-25-2024 Follow-up encounter Mike Martinez [facility] Start: 10-23-2024 End: 10-23-2024 Emergency department patient visit UNKNOWN PROVIDER Facility:[facility] Start: 10-23-2024 End: 10-23-2024 Telephone encounter Vince Huffman MD Work Phone: Radiation Oncology Comment on above: Results Start: 10-17-2024 End: 10-17-2024 [facility] Facility:[facility] Start: 10-15-2024 End: 12-15-2024 Follow-up encounter Ailin Pierson MD Work Phone: Internal Medicine [place] Start: 10-15-2024 End: 10-15-2024 [facility] Facility:[facility] Start: 10-11-2024 End: 10-11-2024 Nursing evaluation of patient and report Nurse Urol Tracey Work Phone: Urology Comment on above: Malignant neoplasm o f prostate (HCC) (Primary Dx) Start: 10-11-2024 End: 10-11-2024 [facility] Facility:[facility] Start: 10-10-2024 End: 10-10-2024 [facility] Facility:[facility] Start: 10-10-2024 End: 10-10-2024 Office outpatient visit 25 minutes Ailin Pierson MD Work Phone: Internal Medicine [place] Comment on above: Medication monitorin g encounter (Primary Dx); Vitamin D deficiency; Left anterior fascicular block; Abnormal EKG; Supraventricular premature beats; Hypomagnesemia; Elevated TSH; Cardiac arrhythmia, unspecified cardiac arrhythmia type Start: 10-10-2024 End: 10-10-2024 [facility] Facility:[facility] Start: 10-08-2024 [facility] Facility:[facility] Start: 10-08-2024 End: 10-08-2024 Subsequent hospital visit by physician Bone Density [facility] Work Phone: Radiology Comment on above: Other osteoporosis, unspecified pathological fracture presence [M81.8] Start: 09-28-2024 End: 09-28-2024 Follow-up encounter Juan Blanton MD Work Phone: [place] [facility] Start: 09-25-2024 End: 09-25-2024 Orders Only Juan Blanton MD Work Phone: Urology Comment on above: Prostate cancer (HCC ) (Primary Dx) BPH with obstruction /lower urinary tract symptoms (Primary Dx); Prostate cancer (HCC); Recurrent UTI Start: 09-18-2024 End: 09-18-2024 Patient encounter procedure Vince Huffman MD Work Phone: Radiation Oncology Comment on above: Prostate cancer (HCC ) (Primary Dx) Start: 09-18-2024 End: 09-18-2024 ambulatory Vince Huffman MD Work Phone: Radiation Oncology Comment on above: Patient Education Start: 09-17-2024 End: 09-17-2024 ambulatory [facility] Facility[facility] Start: 09-14-2024 End: 09-14-2024 ambulatory [facility] Facility[facility] Start: 09-13-2024 End: 09-13-2024 ambulatory [facility] Facility[facility] Start: 09-12-2024 End: 09-12-2024 ambulatory [facility] Facility[facility] Start: 09-11-2024 End: 09-11-2024 Patient encounter procedure Vince Huffman MD Work Phone: Radiation Oncology Comment on above: Prostate cancer (HCC ) (Primary Dx) Start: 09-11-2024 End: 09-11-2024 ambulatory [facility] Facility[facility] Start: 09-10-2024 End: 09-10-2024 ambulatory [facility] Facility[facility] Start: 09-07-2024 End: 09-07-2024 ambulatory [facility] Facility[facility] Start: 09-06-2024 End: 09-06-2024 ambulatory [facility] Facility[facility] Start: 09-05-2024 End: 09-05-2024 ambulatory [facility] Facility[facility] Start: 09-04-2024 End: 09-04-2024 Patient encounter procedure Vince Huffman MD Work Phone: Radiation Oncology Comment on above: Prostate cancer (HCC ) (Primary Dx) Start: 09-04-2024 End: 09-04-2024 ambulatory VINCE HUFFMAN Facility:[facility] Start: 09-03-2024 End: 09-03-2024 [facility] Facility:[facility] Start: 08-31-2024 End: 08-31-2024 [facility] Facility:[facility] Start: 08-30-2024 End: 08-30-2024 [facility] Facility:[facility] Start: 08-29-2024 End: 08-29-2024 Telephone encounter Vince Huffman MD Work Phone: Radiation Oncology Comment on above: Results; UTI Start: 08-29-2024 End: 08-29-2024 Emergency department patient visit Dr. Ailin Pierson MD Work Phone: -Emergency Department Work Phone: Start: 08-28-2024 End: 08-28-2024 Patient encounter jay Baker MD Work Phone: Radiation Oncology Comment on above: Prostate cancer (HCC ) (Primary Dx) Start: 08-28-2024 End: 08-28-2024 ambulatory SOLO BAKER Facility:[facility] Start: 08-28-2024 End: 08-28-2024 [facility] Facility:[facility] Start: 08-28-2024 End: 08-28-2024 Office outpatient visit 40 minutes Ailin Pierson MD Work Phone: Internal Medicine [place] Comment on above: Prostate cancer (HCC ) (Primary Dx); Self-catheterizes urinary bladder; Falls; Decreased bone density; Essential hypertension Start: 08-27-2024 End: 08-27-2024 [facility] Facility:[facility] Start: 08-24-2024 End: 08-24-2024 [facility] Facility:[facility] Start: 08-23-2024 End: 08-23-2024 [facility] Facility:[facility] Start: 08-22-2024 End: 08-22-2024 Telephone encounter Juan Blanton MD Work Phone: [place] [facility] Comment on above: Appointment Start: 08-22-2024 End: 08-22-2024 [facility] Facility:[facility] Start: 08-21-2024 End: 08-21-2024 Patient encounter procedure Sameer Rendon MD Work Phone: Radiation Oncology Comment on above: Prostate cancer (HCC ) (Primary Dx) Start: 08-21-2024 End: 08-21-2024 ambulatory SAMEER RENDON Facility:[facility] Start: 08-20-2024 End: 08-20-2024 ambulatory [facility] Start: 08-17-2024 End: 08-17-2024 ambulatory [facility] Facility[facility] Start: 08-16-2024 End: 08-16-2024 ambulatory [facility] Facility[facility] Start: 08-15-2024 End: 08-15-2024 ambulatory [facility] Facility[facility] Start: 08-14-2024 End: 08-14-2024 Patient encounter procedure Vince Huffman MD Work Phone: Radiation Oncology Comment on above: Prostate cancer (HCC ) (Primary Dx) Start: 08-14-2024 End: 08-14-2024 [facility] Facility:[facility] Start: 08-13-2024 End: 08-13-2024 [facility] Facility:[facility] Start: 08-10-2024 End: 08-10-2024 [facility] Facility:[facility] Start: 08-09-2024 End: 08-09-2024 [facility] Facility:[facility] Start: 08-02-2024 End: 08-08-2024 Patient encounter procedure Vince Huffman MD Work Phone: Radiation Oncology Start: 08-02-2024 End: 08-08-2024 Radiation Oncology Note Vince Huffman MD Work Phone: Radiation Oncology Comment on above: Simulation Note Treatment Planning Start: 08-02-2024 End: 08-02-2024 ambulatory [facility] Facility[facility] Start: 08-02-2024 End: 08-02-2024 Nursing evaluation of patient and report Nurse [facility] Work Phone: Radiation Oncology Comment on above: Prostate cancer (HCC ) (Primary Dx) Start: 08-01-2024 End: 08-02-2024 Telephone encounter Vince Huffman MD Work Phone: Radiation Oncology Comment on above: Appointment Prostate cancer (HCC ) (Primary Dx) Start: 07-23-2024 End: 07-23-2024 Telephone encounter Vince Huffman MD Work Phone: Radiation Oncology Comment on above: Patient Question Start: 2024 End: 07-20-2024 Follow-up encounter Destinee Cloud RN Urology Start: 07-16-2024 End: 07-16-2024 Patient encounter procedure Dee Bob RT(R) Nuclear Medicine Start: 07-16-2024 End: 07-16-2024 ambulatory Dee Bob RT(R) Nuclear Medicine Comment on above: Radiology [place] Start: 07-16-2024 End: 07-16-2024 Subsequent hospital visit by physician [facility] Work Phone: Nuclear Medicine Comment on above: Prostate cancer (HCC ) [C61] Start: 07-02-2024 End: 07-02-2024 Telephone encounter Ailin Pierson MD Work Phone: Internal Medicine [place] Comment on above: Patient Question Start: 06-29-2024 End: 06-29-2024 ambulatory AILIN PIERSON Facility:[facility] Start: 06-29-2024 End: 06-29-2024 Patient encounter procedure Vince Huffman MD Work Phone: Radiation Oncology Comment on above: Prostate cancer (HCC ) (Primary Dx) Start: 06-28-2024 End: 06-28-2024 ambulatory No Pcp WEDDING DECORATOR [facility] Start: 06-28-2024 End: 06-28-2024 Patient encounter procedure No Pcp WEDDING DECORATOR [facility] Start: 06-28-2024 End: 06-28-2024 Telephone encounter Ailin Pierson MD Work Phone: Internal Medicine [place] Comment on above: Appointment (Urology [place]) Start: 06-27-2024 End: 06-27-2024 Telephone encounter Vince Huffman MD Work Phone: Radiation Oncology Comment on above: New Patient Start: 06-26-2024 End: 06-26-2024 Office outpatient visit 40 minutes Ailin Pierson MD Work Phone: Internal Medicine [place] Comment on above: Prostate cancer (HCC ) (Primary Dx); Closed fracture of multiple ribs of both sides, sequela; Fracture of vertebra due to osteoporosis, sequela; Other osteoporosis, unspecified pathological fracture presence; Debility; Falls frequently Start: 06-26-2024 End: 06-26-2024 [facility] Facility:[facility] Start: 06-26-2024 End: 06-26-2024 Telephone encounter Juan Blanton MD Work Phone: [facility] Comment on above: Results Start: 06-25-2024 End: 06-25-2024 [facility] Facility:[facility] Start: 06-21-2024 Non-patient / Non-visit Dr. Itzel Randle MD -[place] [facility] Work Phone: Start: 06-20-2024 Non-patient / Non-visit Dr. Itzel Randle MD -[facility] [facility] Work Phone: Start: 06-19-2024 End: 06-21-2024 [facility] Facility:[facility] Start: 06-19-2024 End: 06-21-2024 Evaluation and management of inpatient Dr. Itzel Randle MD -Progressive Care Unit Work Phone: Start: 05-31-2024 End: 05-31-2024 [facility] Facility:[facility] Start: 05-31-2024 End: 05-31-2024 Nursing evaluation of patient and report Nurse Urol Tracey Work Phone: Urology Comment on above: Urine retention (Lily lea Dx) Start: 05-24-2024 Non-patient / Non-visit Dr. Brayden Meng DO -[facility] [facility] Work Phone: Start: 05-24-2024 End: 05-25-2024 Telephone encounter Juan Blanton MD Work Phone: Urology Comment on above: CIC at home Start: 05-24-2024 Non-patient / Non-visit Dr. Samuel brannon MD -[facility] Start: 05-23-2024 Non-patient / Non-visit Dr. Brayden Meng DO -[facility] [facility] Work Phone: Start: 05-22-2024 Non-patient / Non-visit Dr. Tyler Garcia MD -[facility] Work Phone: Start: 05-22-2024 ambulatory [facility] Start: 05-22-2024 End: 05-24-2024 Evaluation and management of inpatient Dr. Brayden Gaona DO -[facility] Work Phone: Start: 05-16-2024 End: 05-16-2024 [facility] Facility:[facility] Start: 05-16-2024 End: 05-16-2024 Office outpatient visit 15 minutes Sarah Ware APRN.CNP Work Phone: Urology Comment on above: Urine retention (Lily lea Dx); BPH with obstruction/lower urinary tract symptoms; Prostate cancer (HCC) Start: 05-14-2024 End: 05-14-2024 Telephone encounter Ailin Pierson MD Work Phone: Internal Medicine [place] Comment on above: Patient Update; Miri ent Question Start: 05-09-2024 End: 05-09-2024 Emergency department patient visit Dr. Marin Platt DO -Emergency Department Work Phone: Start: 04-24-2024 End: 04-25-2024 Telephone encounter Ailin Pierson MD Work Phone: [facility] [place] Comment on above: Insurance Authorizat ion Start: 04-23-2024 End: 04-23-2024 Office outpatient visit 15 minutes Ailin Pierson MD Work Phone: [facility] [place] Comment on above: Medicare annual well ness visit, subsequent (Primary Dx); Insomnia, unspecified type; Prostate cancer (HCC) Start: 04-23-2024 End: 04-23-2024 [facility]ulatory [facility] Facility[facility] Start: 04-23-2024 End: 04-23-2024 Patient encounter procedure Ailin Pierson MD Work Phone: [facility] Start: 04-19-2024 End: 04-19-2024 ambulatory AILIN PIERSON Facility:[facility] Start: 04-19-2024 Patient encounter procedure AILIN PIERSON [facility] Start: 04-16-2024 End: 04-16-2024 Patient encounter procedure Ailin Pierson MD Work Phone: [facility] Start: 04-16-2024 End: 04-16-2024 Refill Ailin Pierson MD Work Phone: [facility] [place] Comment on above: Refill Request Orders Start: 04-10-2024 End: 04-13-2024 ambulatory Ailin Pierson MD Work Phone: Internal Medicine [place] [address] Start: 01-11-2024 Telephone encounter Vince Boyer MD Work Phone: Radiation Oncology Comment on above: Patient Update (Re:r adiation treatment) Start: 01-05-2024 End: 01-05-2024 Patient encounter procedure Vince Huffman MD Work Phone: Radiation Oncology Comment on above: Prostate cancer (HCC ) Start: 01-04-2024 Telephone encounter Juan Blanton MD Work Phone: Urology Comment on above: Patient Question Start: 01-03-2024 End: 01-03-2024 Patient encounter procedure Juan Blanton MD Work Phone: Urology Comment on above: Prostate cancer (HCC ) (Primary Dx) Start: 12-30-2023 Telephone encounter Ailin chang MD Work Phone: [facility] [place] Comment on above: Results Start: 12-29-2023 End: 12-29-2023 Office outpatient visit 40 minutes Ailin Pierson MD Work Phone: [facility] [place] Comment on above: Prostate cancer (HCC ) (Primary Dx); Vitamin D deficiency; Vitamin B12 deficiency; Essential hypertension, benign Start: 12-09-2023 End: 12-09-2023 Subsequent hospital visit by physician [facility] Work Phone: Molecular Imaging Comment on above: Prostate cancer (HCC ) [C61] Start: 12-09-2023 End: 12-09-2023 Subsequent hospital visit by physician [facility] Work Phone: Molecular Imaging Comment on above: Prostate cancer (HCC ) [C61] Start: 12-06-2023 End: 12-06-2023 Patient encounter procedure Juan Blanton MD Work Phone: Urology Comment on above: Prostate cancer (HCC ) (Primary Dx); Dysuria Start: 11-21-2023 Preprocedural examination done Juan Blanton Jr., MD Work Phone: [facility] Start: 11-21-2023 Encounter for other preprocedural examination [facility] Start: 10-11-2023 End: 10-11-2023 Patient encounter procedure Juan Blanton MD Work Phone: Urology Comment on above: Elevated prostate sp ecific antigen (PSA) (Primary Dx) Start: 09-28-2023 End: 09-28-2023 Patient encounter procedure Kayla Betancourt APRN.CNP Work Phone: Internal Medicine [place] Comment on above: Prostate cancer (HCC ) (Primary Dx); Insomnia, unspecified type; Increased urinary frequency; Dark urine; Constipation, unspecified constipation type; Sinus drainage Start: 09-22-2023 End: 09-22-2023 Subsequent hospital visit by physician [facility] (I-Stat/Lg Bore/3t) [facility] Comment on above: Encounter for observ ation for other suspected diseases and conditions ruled out [Z03.89] Start: 2023 End: 2023 Patient encounter procedure Juan Blanton MD Work Phone: Urology Comment on above: Elevated prostate sp ecific antigen (PSA) (Primary Dx); Encounter for observation for other suspected diseases and conditions ruled out Start: 07-08-2023 Telephone encounter Juan Blanton MD Work Phone: Urology Comment on above: Patient Question Start: 05-18-2023 Telephone encounter Kayla Betancourt APRN.DIRECTOR OF COMPENSATION Work Phone: [facility] [place] Comment on above: Patient Question (Re garding prostate ) Start: 05-03-2023 Telephone encounter Juan Blanton MD Work Phone: Urology Comment on above: Patient Question Start: 04-19-2023 End: 04-19-2023 Patient encounter procedure Juan Blanton MD Work Phone: Urology Comment on above: Elevated prostate sp ecific antigen (PSA) (Primary Dx) Start: 04-01-2023 Telephone encounter Juan Blanton MD Work Phone: Urology Comment on above: Prostate Biopsy Inst ructions Start: 03-30-2023 Telephone encounter Kayla Betancourt APRN.DIRECTOR OF COMPENSATION Work Phone: [facility] [place] Comment on above: Results Orders; Results Start: 03-29-2023 End: 03-29-2023 Patient encounter procedure Dat Jones PA-C Work Phone: Urology Comment on above: Elevated PSA (Primar y Dx); Benign prostatic hyperplasia with urinary obstruction; Pain in right testicle Start: 03-24-2023 Patient encounter procedure Kayla Betancourt APRN.DIRECTOR OF COMPENSATION Work Phone: [facility] Start: 03-24-2023 Patient encounter status Kayla santos WEDDING DECORATOR.DIRECTOR OF COMPENSATION Work Phone: [facility] Start: 03-24-2023 Telephone encounter Kayla Betancourt APRN.DIRECTOR OF COMPENSATION Work Phone: [facility] [place] Comment on above: Orders Refill Request Start: 12-30-2022 ambulatory Kayla Coe [facility] [place] Comment on above: [facility] ([facility] [place] [facility]) Start: 04-20-2022 End: 04-20-2022 Nursing evaluation of patient and report Nurse Urol [facility] Work Phone: Urology Comment on above: Benign prostatic hyp erplasia with urinary obstruction (Primary Dx) Start: 03-25-2022 End: 03-25-2022 Patient encounter procedure Kayla Betancourt APRN.DIRECTOR OF COMPENSATION Work Phone: Internal Medicine [place] Comment on above: Annual physical exam (Primary Dx); Essential hypertension, benign; Elevated PSA; Onychomycosis; Medication monitoring encounter; Tick bite of right upper arm, initial encounter; Erythema migrans Start: 03-09-2022 Patient encounter procedure Ailin Pierson MD Work Phone: [facility] [place] Start: 03-09-2022 Refill Ailin Whaley Work Phone: [facility] [place] Comment on above: Refill Request Lab Orders Start: 12-08-2017 Patient encounter [facility] Start: 09-01-2017 Patient encounter [facility] Start: 08-08-2017 Ambulatory [facility] Start: 08-08-2017 End: 08-10-2017 Evaluation and management of inpatient [facility] Start: 07-21-2017 Patient encounter [facility] Start: 07-07-2017 Patient encounter [facility] Start: 05-11-2017 Patient encounter [facility] Procedures Date Procedure Procedure Detail Performing Clinician Start: 11-19-2024 Echo tthrc r-t 2d w/wom-mode compl spec&colr d Ailin Pierson MD Work Phone: Start: 10-10-2024 Ecg routine ecg w/le ast 12 lds i&r only Ailin Pierson MD Work Phone: Start: 10-08-2024 Dxa bone density sunday dy 1/> sites axial skel Ailin Pierson MD Work Phone: Start: 08-29-2024 CT of abdomen and pe lvis without contrast Dr. Ailin Pierson MD Work Phone: Start: 07-16-[address] atten uation skull base mid-thigh Vince Huffman MD Work Phone: Start: 06-19-2024 CT of chest, abdomen and pelvis without contrast Dr. Ailin Pierson MD Work Phone: Start: 06-19-2024 CT of lumbar spine Dr. Ailin Pierson MD Work Phone: Start: 05-23-[address] José Miguel Pierson MD Work Phone: Start: 05-22-2024 Plain chest X-ray Dr. Austyn Pierson MD Work Phone: Start: 05-22-2024 CT cervical spine wi thout contrast Dr. Ailin Pierson MD Work Phone: Start: 05-22-[address] Ailin Pierson MD Work Phone: Start: 05-22-2024 CT of head without contrast Dr. Ailin Pierson MD Work Phone: Start: 05-22-2024 Plain x-ray of elbow Dr Tashi Pierson MD Work Phone: Start: 05-22-2024 Plain x-ray of pelvi s and lower extremity Dr. Ailin Pierson MD Work Phone: Start: 05-22-[address] José Miguel Pierson MD Work Phone: Start: 05-22-2024 SARS-CoV-2, Influenz a & RSV (PCR) Dr. Aliin Pierson MD Work Phone: Start: 05-22-[address] José Miguel Pierson MD Work Phone: Start: 05-09-2024 Computed tomography of abdomen and pelvis with intravenous contrast Dr. Ailin Pierson MD Work Phone: Start: 12-09-2023 Bone &/joint imaging whole body Juan Blanton MD Work Phone: Start: 09-28-2023 Urnls dip stick/tabl et rgnt auto w/o microscopy Kayla Serafin WEDDING DECORATOR.DIRECTOR OF COMPENSATION Work Phone: Start: 04-19-2023 Us pelvic nonobstetr ic image dcmtn limited/f/u Juan Blanton MD Work Phone: Start: 04-19-2023 Urnls dip stick/tabl et rgnt auto w/o microscopy Juan Blanton MD Work Phone: Start: 03-29-2023 Urnls dip stick/tabl et rgnt auto w/o microscopy Dat Jones PA-C Work Phone: History of transuret hral prostatectomy S/P TURP Ailin Pierson MD Work Phone: Plan of Treatment Date Care Activity Detail Author Start: 12-28-2027 Diabetes Screening Diabetes Screenin g [facility] Start: 12-27-2027 Diabetes Screening Diabetes Screenin g [facility] Start: 12-25-2027 Diabetes Screening Diabetes Screenin g [facility] Start: 12-12-2027 Diabetes Screening Diabetes Screenin g [facility] Start: 10-24-2027 Diabetes Screening Diabetes Screenin g [facility] Start: 04-19-2027 Diabetes Screening Diabetes Screenin g [facility] Start: 03-25-2026 Diabetes Screening Diabetes Screenin g [facility] Start: 06-29-2025 BP Controlled (<130/80) BP Controlle d (<130/80) [facility] Start: 06-26-2025 Annual PCP Team [employer] Mechanic [place]erna Disease Visit Annual PCP Team Chronic Disease Visit [facility] Start: 06-26-2025 BP Controlled (<130/80) BP Controlle d (<130/80) [facility] Start: 04-23-2025 Annual PCP Team [employer] Mechanic merna Disease Visit Annual PCP Team Chronic Disease Visit [facility] Start: 04-23-2025 BP Controlled (<130/80) BP Controlle d (<130/80) [facility] Start: 04-23-2025 Covid-19 Vaccine ( season) Covid-19 Vaccine () [facility] Comment on above: Postponed from 01/28 (Declined at this time) Start: 04-17-2025 End: 04-17-2025 ambulatory 04/17/2025 8:30 AM [facility] Radiation Oncology [address] [place] [address] Vince Huffman MD [address] [place] [address] 6MO/LABS 03/31* Radiation Oncology Comment on above: 6MO/LABS 03/31* Start: 04-10-2025 End: 04-10-2025 ambulatory 04/10/2025 8:15 AM EST Results Only [place] [facility] [address] [place] [address] PSA [place] [facility] Comment on above: PSA Start: 03-23-2025 DIABETES SCREEN DIABETES SCREEN [facility] Start: 03-23-2025 Diabetes Screening Diabetes Screenin g [facility] Start: 01-28-2025 Influenza vaccination [facility] Start: 01-09-2025 End: 01-09-2025 Patient encounter procedure 01/09/2025 8:00 AM EDT Office Visit [facility] [place] [address] [place] [address] Ailin Pierson MD [address] [facility] [place] [address] 3 mo follow up [facility] [place] Comment on above: 3 mo follow up Start: 01-04-2025 BP Controlled (<130/80) BP Controlle d (<130/80) [facility] Start: 01-01-2025 End: 01-01-2025 Patient encounter procedure 01/01/2025 4:00 PM EDT Office Visit [facility] [place] [address] [facility] [place] [address] Ailin Pierson MD [address] [facility] [place] [address] 3 mo follow up [facility] [place] Comment on above: 3 mo follow up Start: 12-28-2024 Annual PCP Team [employer] Mechanic merna Disease Visit Annual PCP Team Chronic Disease Visit [facility] Start: 12-28-2024 BP Controlled (<130/80) BP Controlle d (<130/80) [facility] Start: 12-27-2024 End: 12-27-2024 Patient encounter procedure 12/27/2024 9:45 AM EDT Office Visit [facility] [address] [place] [id number] Juan lBanton Jr., MD [address] [place] [address] post op 4 weeks-ok by [facility] Comment on above: post op 4 weeks-ok jacqueline DOMINGUEZ Start: 12-19-2024 End: 12-19-2024 Patient encounter procedure 12/19/2024 11:40 AM EDT Appointment Cat Scan [address] [place] [address] Aortic dilatation [I77.819] Cat Scan Comment on above: Aortic dilatation [I 77.819] Start: 12-11-2024 End: 12-11-2024 Patient encounter procedure 12/11/2024 11:40 AM EDT Office Visit [facility] [place] [address] [place] [address] Ailin Pierson MD [address] [place] [address] Hospital Follow up [facility] [place] Comment on above: Hospital Follow up Start: 11-28-2024 End: 11-28-2024 Admission to [facility] center [facility] Comment on above: CYSTOSCOPY, RESECTIO N PROSTATE TRANSURETHRAL Start: 11-28-2024 End: 11-28-2024 Anesthesia consultation 11/28/2024 10:15 AM EDT Anesthesia Event [address] [address] Gabriella Gonzalez MD [address] [place] [address] [facility] Start: 11-28-2024 Subsequent hospital visit by physician [place] [facility] Comment on above: BPH with obstruction /lower urinary tract symptoms [N40.1, N13.8] Start: 11-28-2024 End: 11-28-2024 Trurl electrosurg rescj prostate bleed complete CYSTOSCOPY, RESECTION PROSTATE TRANSURETHRAL BPH with obstruction/lower urinary tract symptoms 11/28/2024 10:15 AM EDT [facility] Start: 11-26-2024 Influenza vaccination Influenza Vacc ine (#1) [facility] Comment on above: Postponed from 01/28 (Declined at this time) Start: 11-19-2024 End: 11-19-2024 Patient encounter procedure 11/19/2024 12:30 PM EDT Appointment Cardiology Lab [address] [place] [address] Abnormal EKG [R94.31] ok per [facility] Comment on above: Abnormal EKG [R94.31 ] ok per [facility] Start: 11-14-2024 End: 11-14-2024 ambulatory 11/14/2024 9:20 AM EDT PAT Pre Surgical Testing [address] [place] [address] CYSTO, TRANSURETHRAL RESECTION OF PROSTATE W/ DR BLANTON ON 11/28/2024 - JF Pre Surgical Testing Comment on above: CYSTO, TRANSURETHRAL RESECTION OF PROSTATE W/ DR BLANTON ON 11/28/2024 - JF Start: 11-05-2024 End: 11-05-2024 Nursing evaluation of patient and report 11/05/2024 8:00 AM EDT Nurse Visit Urology [address] [address] , Nurse [facility]rol [place] [address] [place], [place] [id number] cath change Urology Comment on above: cath change Start: 10-15-2024 End: 10-15-2024 Follow-up encounter 10/15/2024 8:30 AM EDT [facility] Radiation Oncology [address] [place] [id number] Vince Huffman MD [address] [place] [address] 4WK FOLLOW UP-CALL [phone] Radiation Oncology Comment on above: 4WK FOLLOW UP-CALL [phone] Start: 10-12-2024 End: 10-12-2024 Patient encounter procedure 10/12/2024 8:00 AM EDT Office Visit Cardiology [address] [facility] [place] [address] Abnormal EKG [R94.31] Cardiology Comment on above: Abnormal EKG [R94.31 ] Start: 10-11-2024 End: 10-11-2024 Nursing evaluation of patient and report 10/11/2024 11:00 AM EDT Nurse Visit Urology [address] [address] , Nurse [facility]rol [place] [address] [place] [address] Rigoberto 6 month Urology Comment on above: Rigoberto 6 month Start: 10-10-2024 End: 01-09-2025 Basic metabolic 2000 panel - Serum or Plasma [facility] Comment on above: Expected: 10/10/2024 , Expires: 01/09/2025 Start: 10-10-2024 End: 01-09-2025 Magnesium [Mass/volume] in Serum or Plasma [facility] Comment on above: Expected: 10/10/2024 , Expires: 01/09/2025 Start: 10-10-2024 End: 01-09-2025 Thyrotropin [Units/volume] in Serum or Plasma [facility] Comment on above: Expected: 10/10/2024 , Expires: 01/09/2025 Start: 10-10-2024 End: 10-10-2024 Patient encounter procedure 10/10/2024 8:20 AM EDT Office Visit [facility] [place] [address] [place] [address] Ailin Pierson MD [address] [place] [address] 6 week f/u [facility] [place] Comment on above: 6 week f/u Start: 10-09-2024 End: 10-09-2024 Patient encounter procedure 10/09/2024 10:30 AM EDT Office Visit Urology [address] [address] Juan Blanton Jr., MD [address] [place] [address] follow up Urology Comment on above: follow up Start: 10-08-2024 End: 10-08-2024 Patient encounter procedure 10/08/2024 8:20 AM EDT Appointment Radiology [address] [place] [id number] Other osteoporosis, unspecified pathological fracture presence [M81.8] Radiology Comment on above: Other osteoporosis, unspecified pathological fracture presence [M81.8] Start: 09-27-2024 Annual PCP Team [employer] P[employer] Mechanic merna Disease Visit Annual PCP Team Chronic Disease Visit [facility] Start: 09-25-2024 End: 09-25-2024 Patient encounter procedure 09/25/2024 10:30 AM EDT Office Visit Urology [address] [address] Juan Blanton Jr., MD [address] [place] [address] Follow up PSA and Prostate Cancer Urology Comment on above: Follow up PSA and Pr ostate Cancer Start: 09-20-2024 End: 09-20-2024 Patient encounter procedure 09/20/2024 1:45 PM EDT Appointment Radiation Oncology [address] [place] [address] Location: [email or web address] Comment on above: Location: [facility] Start: 09-19-2024 End: 09-19-2024 Patient encounter procedure 09/19/2024 1:45 PM EDT Appointment Radiation Oncology [address] [place] [id number] Location: [email or web address] Comment on above: Location: [facility] Start: 09-18-2024 End: 09-18-2024 Patient encounter procedure Radiation Oncology Comment on above: Location: [facility] Location: W-ON TREAT MENT VISIT Start: 09-17-2024 End: 09-17-2024 Patient encounter procedure 09/17/2024 1:45 PM EDT Appointment Radiation Oncology [address] [place], [place] [id number] Location: [email or web address] Comment on above: Location: [facility] Start: 09-14-2024 End: 09-14-2024 Patient encounter procedure 09/14/2024 1:45 PM EDT Appointment Radiation Oncology [address] [place] DC [id number] Location: [email or web address] Comment on above: Location: [facility] Start: 09-13-2024 End: 09-13-2024 Patient encounter procedure 09/13/2024 1:45 PM EDT Appointment Radiation Oncology [address] [place] [address] Location: [facility] Comment on above: Location: [facility] Start: 09-12-2024 End: 09-12-2024 Patient encounter procedure Radiation Oncology Comment on above: Location: [facility] follow up Start: 09-11-2024 End: 09-11-2024 Patient encounter procedure Radiation Oncology Comment on above: Location: [facility] Location: W-ON TREAT MENT VISIT Start: 09-10-2024 End: 09-10-2024 Patient encounter procedure 09/10/2024 1:45 PM EDT Appointment Radiation Oncology [address] [place] [address] Location: [email or web address] Comment on above: Location: [facility] Start: 09-07-2024 End: 09-07-2024 Patient encounter procedure 09/07/2024 1:45 PM EDT Appointment Radiation Oncology [address] [place] [address] Location: [facility] Comment on above: Location: [facility] Start: 09-06-2024 End: 09-06-2024 Patient encounter procedure 09/06/2024 1:45 PM EDT Appointment Radiation Oncology [address] [place] [id number] Location: [facility] Comment on above: Location: [facility] Start: 09-05-2024 End: 09-05-2024 Patient encounter procedure 09/05/2024 1:45 PM EDT Appointment Radiation Oncology [address] [place] [address] Location: [facility] Comment on above: Location: [facility] Start: 09-04-2024 End: 09-04-2024 Patient encounter procedure Radiation Oncology Comment on above: Location: [facility] Location: W-ON TREAT MENT VISIT Start: 09-03-2024 End: 09-03-2024 Patient encounter procedure 09/03/2024 1:45 PM EDT Appointment Radiation Oncology [address] [place] [address] Location: [facility] Comment on above: Location: [facility] Start: 08-31-2024 End: 08-31-2024 Patient encounter procedure 08/31/2024 1:45 PM EDT Appointment Radiation Oncology [address] [place] [phone] Location: [facility] Comment on above: Location: [facility] Start: 08-30-2024 End: 08-30-2024 Patient encounter procedure 08/30/2024 1:45 PM EDT Appointment Radiation Oncology [address] [place] [address] Location: [facility] Comment on above: Location: [facility] Start: 08-29-2024 [facility] Start: 08-29-2024 [facility] Start: 08-29-2024 [facility] Start: 08-29-2024 Bacteria identified in Blood by Culture Blood Culture [facility] Start: 08-29-2024 End: 08-29-2024 Patient encounter procedure 08/29/2024 1:45 PM EDT Appointment Radiation Oncology [address] [place] [id number] Location: [facility] Comment on above: Location: [facility] Start: 08-28-2024 End: 08-28-2024 Patient encounter procedure 08/28/2024 1:45 PM EDT Appointment Radiation Oncology [address] [place] DC [id number] Location: [facility] Comment on above: Location: [facility] Start: 08-28-2024 End: 08-28-2024 Patient encounter procedure [facility] [place] Comment on above: 3 month follow up Location: W-ON TREAT MENT VISIT Start: 08-27-2024 End: 08-27-2024 Patient encounter procedure 08/27/2024 1:45 PM EDT Appointment Radiation Oncology [address] [place] [address] Location: [facility] Comment on above: Location: [facility] Start: 08-24-2024 End: 08-24-2024 Patient encounter procedure 08/24/2024 1:45 PM EDT Appointment Radiation Oncology [address] [place] [address] Location: [facility] Comment on above: Location: [facility] Start: 08-23-2024 End: 08-23-2024 Patient encounter procedure 08/23/2024 1:45 PM EDT Appointment Radiation Oncology [address] [place], [place] [address] Location: [facility] Comment on above: Location: [facility] Start: 08-22-2024 End: 08-22-2024 Patient encounter procedure 08/22/2024 1:45 PM EDT Appointment Radiation Oncology [address] [place] [address] Location: [facility] Comment on above: Location: [facility] Start: 08-21-2024 End: 08-21-2024 Patient encounter procedure Radiation Oncology Comment on above: Location: [facility] Location: W-ON TREAT MENT VISIT Start: 08-20-2024 End: 08-20-2024 Patient encounter procedure [facility] [place] Comment on above: 3 month follow up Location: [facility] Start: 08-17-2024 End: 08-17-2024 Patient encounter procedure 08/17/2024 1:45 PM EDT Appointment Radiation Oncology [address] [place], [place] [id number] Location: [facility] Comment on above: Location: [facility] Start: 08-16-2024 End: 08-16-2024 Patient encounter procedure 08/16/2024 1:45 PM EDT Appointment Radiation Oncology [address] [place] [address] Location: [facility] Comment on above: Location: [facility] Start: 08-15-2024 End: 08-15-2024 Patient encounter procedure 08/15/2024 1:45 PM EDT Appointment Radiation Oncology [address] [place], [place] [phone] Location: [facility] Comment on above: Location: [facility] Start: 08-14-2024 End: 08-14-2024 Patient encounter procedure Radiation Oncology Comment on above: Location: [facility] Location: W-ON TREAT MENT VISIT Start: 08-13-2024 End: 08-13-2024 Patient encounter procedure 08/13/2024 1:45 PM EDT Appointment Radiation Oncology [address] [place], [place] [id number] Location: [facility] Comment on above: Location: [facility] Start: 08-10-2024 End: 08-10-2024 Patient encounter procedure 08/10/2024 1:45 PM EDT Appointment Radiation Oncology [address] [place] [id number] Location: [email or web address] Comment on above: Location: [facility] Start: 08-09-2024 End: 08-09-2024 Patient encounter procedure 08/09/2024 1:00 PM EDT Appointment Radiation Oncology [address] [place], [place] [phone] Vince Huffman MD [address] [place], [place] [id number] Location: [email or web address] Comment on above: Location: [facility] Start: 08-02-2024 End: 08-02-2024 Patient encounter procedure 08/02/2024 2:15 PM EST Office Visit Radiation Oncology [address] [place] [id number] Vince Huffman MD [address] [place] [id number] sim at this time. full bladder vac bag Radiation Oncology Comment on above: sim at this time. fu ll bladder vac bag Start: 08-02-2024 End: 08-02-2024 Nursing evaluation of patient and report 08/02/2024 1:30 PM EST Nurse Visit Radiation Oncology [address] [place] [phone] Wstr, Nurse Radt [facility] [address] [place] [phone] needs consent. needs full bladder Radiation Oncology Comment on above: needs consent. needs full bladder Start: 07-24-2024 End: 07-24-2024 Patient encounter procedure 07/24/2024 11:15 AM EST Office Visit Urology [address] [address] [place] [address] [place] [phone] 6 mo follow up Urology Comment on above: 6 mo follow up Start: 07-16-2024 End: 07-16-2024 Patient encounter procedure Nuclear Medicine Comment on above: Prostate cancer (HCC ) [C61] Start: 07-10-2024 End: 07-10-2024 Patient encounter procedure 07/10/2024 9:00 AM EST Office Visit Urology [address] [address] Juan Blanton Jr., MD [address] [place], [place] [id number] 6 mo follow up Urology Comment on above: 6 mo follow up Start: 07-05-2024 End: 10-04-2024 Prostate specific Ag [Mass/volume] in Serum or Plasma PROSTATE-SPECIFIC ANTIGEN DIAGNOSTIC Lab Routine Prostate cancer (HCC) Expected: 07/05/2024, Expires: 10/04/2024 [facility] Work Phone: Comment on above: Expected: 07/05/2024 , Expires: 10/04/2024 Start: 06-29-2024 End: 06-29-2024 Patient encounter procedure 06/29/2024 11:00 AM EST Office Visit Radiation Oncology [address] [place] [address] Vince Huffman MD [address] [place] [address] Follow-up Consult - Prostate cancer Radiation Oncology Comment on above: Follow-up Consult - Prostate cancer Start: 06-26-2024 End: 06-26-2024 Patient encounter procedure 06/26/2024 3:40 PM EST Office Visit [facility] [place] [address] [place] [address] Ailin Pierson MD [address] [facility] [place] [address] hospital follow up from fall [facility] [place] Comment on above: hospital follow up f rom fall [facility] Start: 06-21-2024 Patient discharge [facility] Start: 06-19-2024 End: 06-20-2024 [facility] Start: 06-19-2024 Application of intermittent pneumatic compression device [facility] Start: 06-19-2024 Fall prevention [facility] Start: 06-19-2024 Assessment of risk o f venous thromboembolism [facility] Start: 06-19-2024 Insertion of cathete r into peripheral vein [facility] Start: 06-19-2024 Measuring intake and output [facility] Start: 06-19-2024 Providing care accor ding to standard [facility] Start: 06-19-2024 Provision of activit y privileges [facility] Start: 06-19-2024 Referral to occupati onal therapist [facility] Start: 06-19-2024 Referral to service [facility] Start: 06-19-2024 Following clinical p athway protocol [facility] Start: 06-19-2024 Admission procedure [facility] Start: 05-31-2024 End: 05-31-2024 Nursing evaluation of patient and report 05/31/2024 9:00 AM EST Nurse Visit Urology [address] [address] Mc, Nurse Urol [place] [address] [place] [address] 2 wk follow up/bladder scan Urology Comment on above: 2 wk follow up/bladd er scan Start: 05-30-2024 Advance Directive Discussion Advance Directive Discussion [facility] Start: 05-24-2024 Patient discharge [facility] Start: 05-24-2024 Introduction of urin gera catheter [facility] Start: 05-24-2024 Removal of urinary catheter [facility] Start: 05-22-2024 Following clinical p athway protocol [facility] Start: 05-22-2024 Assessment of risk o f venous thromboembolism [facility] Start: 05-22-2024 Insertion of cathete r into peripheral vein [facility] Start: 05-22-2024 Measuring intake and output [facility] Start: 05-22-2024 Providing care accor ding to standard [facility] Start: 05-22-2024 Provision of activit y privileges [facility] Start: 05-22-2024 Referral to occupati onal therapist [facility] Start: 05-22-2024 Referral to service [facility] Start: 05-22-2024 [facility] Start: 05-22-2024 Consultation [facility] Start: 05-22-2024 Following clinical p athway protocol [facility] Start: 05-22-2024 Admission procedure [facility] Start: 05-16-2024 End: 05-16-2024 Patient encounter procedure 05/16/2024 10:00 AM EST Office Visit Urology [address] [address] Sarah Ware, WEDDING DECORATOR.DIRECTOR OF COMPENSATION [address] [place] [address] ED follow up- Urology Comment on above: ED follow up- Start: 05-09-2024 [facility] Start: 04-23-2024 End: 04-23-2024 Patient encounter procedure 04/23/2024 9:00 AM EST Office Visit [facility] [place] [address] [place] [address] Ailin Pierson MD [address] [place] [address] medicare wellness [facility] [place] Comment on above: medicare wellness Start: 04-19-2024 BP Controlled (<130/80) BP Controlle d (<130/80) [facility] Start: 04-16-2024 End: 07-16-2024 CBC panel - Blood by Automated count COMPLETE BLOOD COUNT Lab Routine Annual physical exam Primary hypertension Expected: 04/16/2024, Expires: 07/16/2024 [facility] Comment on above: Expected: 04/16/2024 , Expires: 07/16/2024 Start: 04-16-2024 End: 07-16-2024 Comprehensive metabolic 2000 panel - Serum or Plasma COMPREHENSIVE METABOLIC PANEL Lab Routine Annual physical exam Mixed hyperlipidemia Primary hypertension Expected: 04/16/2024, Expires: 07/16/2024 [facility] Comment on above: Expected: 04/16/2024 , Expires: 07/16/2024 Start: 04-16-2024 End: 07-16-2024 Lipid 1996 panel - Serum or Plasma LIPID PANEL BASIC Lab Routine Annual physical exam Mixed hyperlipidemia Expected: 04/16/2024, Expires: 07/16/2024 [facility] Work Phone: Comment on above: Expected: 04/16/2024 , Expires: 07/16/2024 Start: 04-10-2024 End: 07-10-2024 CBC panel - Blood by Automated count COMPLETE BLOOD COUNT Lab Routine Medication management Expected: 04/10/2024, Expires: 07/10/2024 [facility] Work Phone: Comment on above: Expected: 04/10/2024 , Expires: 07/10/2024 Start: 03-30-2024 Annual PCP Team [employer] Mechanic merna Disease Visit Annual PCP Team Chronic Disease Visit [facility] Start: 03-30-2024 BP Controlled (<130/80) BP Controlle d (<130/80) [facility] Start: 03-30-2024 Covid-19 Vaccine () Covid-19 Vaccine () [facility] Comment on above: Postponed from 01/28 (Declined at this time) Start: 03-29-2024 BP Controlled (<130/80) BP Controlle d (<130/80) [facility] Start: 01-29-2024 Covid-19 Vaccine () Covid-19 Vaccine () [facility] Start: 01-29-2024 Influenza vaccination [facility] Start: 01-06-2024 End: 04-06-2024 Prostate specific Ag [Mass/volume] in Serum or Plasma PROSTATE-SPECIFIC ANTIGEN DIAGNOSTIC Lab Routine Prostate cancer (HCC) Expected: 01/06/2024, Expires: 04/06/2024 [facility] Comment on above: Expected: 01/06/2024 , Expires: 04/06/2024 Start: 01-05-2024 End: 01-05-2024 Patient encounter procedure 01/05/2024 9:30 AM EDT Office Visit Radiation Oncology [address] [place], [place] [phone] Vince Huffman MD [address] [place], [place] [phone] PROSTATE CANCER CONSULT* Radiation Oncology Comment on above: PROSTATE CANCER CONS ULT* Start: 01-03-2024 End: 01-03-2024 Patient encounter procedure 01/03/2024 8:45 AM EDT Office Visit Urology [address] [address] Juan Blanton Jr., MD [address] [place] [address] 4 wk follow Urology Comment on above: 4 wk follow Start: 12-29-2023 End: 03-29-2024 25-hydroxyvitamin D3 [Mass/volume] in Serum or Plasma [facility] Work Phone: Comment on above: Expected: 12/29/2023 , Expires: 03/29/2024 Start: 12-29-2023 End: 03-29-2024 Cobalamin (Vitamin B12) [Mass/volume] in Serum or Plasma [facility] Comment on above: Expected: 12/29/2023 , Expires: 03/29/2024 Start: 12-29-2023 End: 12-29-2023 Patient encounter procedure 12/29/2023 9:40 AM EDT Office Visit [facility] [place] [address] [place] [address] Ailin Pierson MD [address] [place], [place] [phone] 3 month follow up [facility] [place] Comment on above: 3 month follow up Start: 12-09-2023 End: 12-09-2023 Patient encounter procedure 12/09/2023 12:30 PM EDT Appointment Molecular Imaging [address] [place] [address] C61,NM WHOLE BODY,OFFICE CALLING,ORDER IN EPIC [facility] Comment on above: C61,NM WHOLE BODY,OF FICE CALLING,ORDER IN EPIC Start: 12-09-2023 End: 12-09-2023 Patient encounter procedure 12/09/2023 9:30 AM EDT Appointment Molecular Imaging [address] [place] [address] C61,NM WHOLE BODY,OFFICE CALLING,ORDER IN EPIC [facility] Comment on above: C61,NM WHOLE BODY,OF FICE CALLING,ORDER IN EPIC Start: 11-27-2023 Influenza vaccination Influenza Vacc ine (#1) [facility] Comment on above: Postponed from 01/28 (Declined at this time) Start: 11-15-2023 End: 11-15-2023 Patient encounter procedure 11/15/2023 3:00 PM EDT Office Visit Urology [address] [id number] Juan Blanton Jr., MD [address] [place] [address] follow up to mri/ psa Urology Comment on above: follow up to mri/ ps a Start: 10-11-2023 End: 10-11-2023 Patient encounter procedure 10/11/2023 8:45 AM EDT Office Visit Urology [address] [place] [address] Juan Blanton Jr., MD [address] [place] [address] follow up to mri/ psa Urology Comment on above: follow up to mri/ ps a Start: 09-28-2023 End: 09-28-2023 Patient encounter procedure 09/28/2023 9:20 AM EDT Office Visit [facility] [place] [address] [place], [place] [phone] Kayla Betancourt APRN.DIRECTOR OF COMPENSATION [address] [place] [address] Medicare Wellness [facility] [place] Comment on above: Medicare Wellness Start: 2023 End: 10-18-2023 Prostate specific Ag [Mass/volume] in Serum or Plasma PSA/PROSTSPECAG DIAG Lab Routine Elevated prostate specific antigen (PSA) Expected: 2023, Expires: 10/18/2023 [facility] Work Phone: Comment on above: Expected: 2023 , Expires: 10/18/2023 Start: 07-06-2023 BP CONTROLLED (<130/80) BP CONTROLLE D (<130/80) [facility] Start: 06-25-2023 ANNUAL PCP TEAM CONSULTATIVE SALES ASSOCIATE MERNA DISEASE VISIT ANNUAL PCP TEAM CHRONIC DISEASE VISIT [facility] Start: 06-11-2023 DIABETES SCREEN DIABETES SCREEN [facility] Start: 05-30-2023 Advance Directive Discussion Advance Directive Discussion [facility] Start: 05-30-2023 Behavioral Health Screening Behavioral Health Screening [facility] Start: 05-30-2023 Depression Assessment Depression Ass essment [facility] Start: 03-29-2023 End: 06-28-2023 ISOPSA ASSAY FOR UROLOGY USE ONLY [facility] Work Phone: Comment on above: Expected: 03/29/2023 , Expires: 06/28/2023 Start: 03-25-2023 ANNUAL PCP TEAM CONSULTATIVE SALES ASSOCIATE MERNA DISEASE VISIT ANNUAL PCP TEAM CHRONIC DISEASE VISIT [facility] Start: 03-25-2023 BP CONTROLLED (<130/80) BP CONTROLLE D (<130/80) [facility] Start: 03-25-2023 COVID-19 VACCINE (3 - Booster for Pfizer series) COVID-19 VACCINE (3 - Booster for Pfizer series) [facility] Comment on above: Postponed from 10/10 (Declined at this time) Start: 03-25-2023 COVID-19 VACCINE (3 - Pfizer series) COVID-19 VACCINE (3 - Pfizer series) [facility] Comment on above: Postponed from 10/10 (Declined at this time) Start: 03-25-2023 HEPATITIS C SCREENING HEPATITIS C SC [facility] Comment on above: Postponed from 07/19 (Declined at this time) Start: 03-25-2023 SHINGRIX VACCINE (1 of 2) GALVAN GRIX VACCINE (1 of 2) [facility] Comment on above: Postponed from 07/19 (Declined at this time) Start: 03-25-2023 Urine microalbumin profile [facility] Comment on above: Postponed from 07/19 (Declined at this time) Start: 03-24-2023 End: 06-23-2023 CBC W Auto Differential panel - Blood CBC + DIFF Lab Routine Encounter for wellness examination Expected: 03/24/2023, Expires: 06/23/2023 [facility] Work Phone: Comment on above: Expected: 03/24/2023 , Expires: 06/23/2023 Start: 03-24-2023 End: 06-23-2023 Comprehensive metabolic 2000 panel - Serum or Plasma COMP METABOLIC PANEL Lab Routine Encounter for wellness examination Expected: 03/24/2023, Expires: 06/23/2023 [facility] Work Phone: Comment on above: Expected: 03/24/2023 , Expires: 06/23/2023 Start: 03-24-2023 End: 06-23-2023 Lipid 1995 panel - Serum or Plasma LIPID PANEL BASIC Lab Routine Encounter for wellness examination Expected: 03/24/2023, Expires: 06/23/2023 [facility] Work Phone: Comment on above: Expected: 03/24/2023 , Expires: 06/23/2023 Start: 03-24-2023 End: 06-23-2023 Prostate specific Ag [Mass/volume] in Serum or Plasma PSA/PROSTSPECAG DIAG Lab Routine Elevated PSA Expected: 03/24/2023, Expires: 06/23/2023 [facility] Work Phone: Comment on above: Expected: 03/24/2023 , Expires: 06/23/2023 Start: 01-28-2023 Covid-19 Vaccine () Covid-19 Vaccine () [facility] Start: 01-28-2023 Influenza vaccination [facility] Start: 12-31-2022 End: 03-02-2023 CBC W Auto Differential panel - Blood CBC + DIFF Lab Routine Essential hypertension, benign Expected: 12/31/2022, Expires: 03/02/2023 [facility] Work Phone: Comment on above: Expected: 12/31/2022 , Expires: 03/02/2023 Start: 12-31-2022 End: 03-02-2023 Comprehensive metabolic 2000 panel - Serum or Plasma COMP METABOLIC PANEL Lab Routine Essential hypertension, benign Expected: 12/31/2022, Expires: 03/02/2023 [facility] Work Phone: Comment on above: Expected: 12/31/2022 , Expires: 03/02/2023 Start: 12-31-2022 End: 03-02-2023 Lipid 1996 panel - Serum or Plasma LIPID PANEL BASIC Lab Routine Mixed hyperlipidemia Expected: 12/31/2022, Expires: 03/02/2023 [facility] Work Phone: Comment on above: Expected: 12/31/2022 , Expires: 03/02/2023 Start: 11-26-2022 Influenza vaccination INFLUENZA (#1) [facility] Comment on above: Postponed from 01/28 (Declined at this time) Start: 04-25-2022 End: 06-25-2022 Hepatic function 2000 panel - Serum or Plasma HEPATIC FUNCTION PNL Lab Routine Medication monitoring encounter Onychomycosis Expected: 04/25/2022 (Approximate), Expires: 06/25/2022 [facility] Work Phone: Comment on above: Expected: 04/25/2022 (Approximate), Expires: 06/25/2022 Start: 03-25-2022 End: 05-25-2022 Borrelia burgdorferi IgG and IgM panel - Serum LYME AB LATE >30 DAYS SYMPTOMS Lab Routine Tick bite of right upper arm, initial encounter Erythema migrans Expected: 03/25/2022, Expires: 05/25/2022 [facility] Work Phone: Comment on above: Expected: 03/25/2022 , Expires: 05/25/2022 Start: 03-18-2022 End: 05-18-2022 PSA/PROSTSPECAG SCRN PSA/PROSTSPECAG SCRN Lab Routine Annual physical exam Prostate cancer screening Expected: 03/18/2022 (Approximate), Expires: 05/18/2022 [facility] Work Phone: Comment on above: Expected: 03/18/2022 (Approximate), Expires: 05/18/2022 Start: 03-17-2022 End: 05-17-2022 CBC W Auto Differential panel - Blood CBC + DIFF Lab Routine Mixed hyperlipidemia Essential hypertension, benign Annual physical exam Expected: 03/17/2022, Expires: 05/17/2022 [facility] Work Phone: Comment on above: Expected: 03/17/2022 , Expires: 05/17/2022 Start: 03-17-2022 End: 05-17-2022 Comprehensive metabolic 2000 panel - Serum or Plasma COMP METABOLIC PANEL Lab Routine Mixed hyperlipidemia Essential hypertension, benign Annual physical exam Expected: 03/17/2022, Expires: 05/17/2022 [facility] Work Phone: Comment on above: Expected: 03/17/2022 , Expires: 05/17/2022 Start: 03-17-2022 End: 05-17-2022 Lipid 1996 panel - Serum or Plasma LIPID PANEL BASIC Lab Routine Mixed hyperlipidemia Essential hypertension, benign Annual physical exam Expected: 03/17/2022, Expires: 05/17/2022 [facility] Work Phone: Comment on above: Expected: 03/17/2022 , Expires: 05/17/2022 Start: 03-04-2022 ANNUAL PCP TEAM CONSULTATIVE SALES ASSOCIATE MERNA DISEASE VISIT ANNUAL PCP TEAM CHRONIC DISEASE VISIT [facility] Start: 01-28-2022 Influenza vaccination INFLUENZA (#1) [facility] Start: 05-30-2021 ADVANCE DIRECTIVE DISCUSSION ADVANCE DIRECTIVE DISCUSSION [facility] Start: 05-30-2021 DEPRESSION ASSESSMENT DEPRESSION ASS ESSMENT [facility] Start: 10-10-2020 COVID-19 VACCINE (3 - Booster for Pfizer series) COVID-19 VACCINE (3 - Booster for Pfizer series) [facility] Start: 2018 RSV Vaccine (1 - 1-d ose 75+ series) RSV Vaccine (1 - 1-dose 75+ series) [facility] Start: 04-29-2010 Medicare Annual Well ness Visit Medicare Annual Wellness Visit [facility] Start: 2003 RSV Vaccine (1 - 1-d ose 60+ series) RSV Vaccine (1 - 1-dose 60+ series) [facility] Start: 1993 SHINGRIX VACCINE (1 of 2) GALVAN GRIX VACCINE (1 of 2) [facility] Start: 1962 Urine microalbumin profile [facility] Start: 1961 Anxiety Screening Anxiety Screening [facility] Start: 1961 BP CONTROLLED (<130/80) BP CONTROLLE D (<130/80) [facility] Start: 1961 Depression Screening Depression Scre ening [facility] Start: 1961 HEPATITIS C SCREENING HEPATITIS C [facility] Bacteria identified in Urine by Culture URINE CULTURE Microbiology Routine Prostate cancer (HCC) Dysuria 12/06/2023 2:36 PM EDT [facility] Bacteria identified in Urine by Culture BACTERIAL CULTURE, URINE Microbiology Routine Recurrent UTI 09/25/2024 10:48 AM EDT [facility] Work Phone: End: 01-10-2026 CT Chest WO contrast CT CHEST WO IVCON Radiology Routine Aortic dilatation 1 Occurrences starting 12/11/2024 until 01/10/2026 [facility] Work Phone: Comment on above: 1 Occurrences starti ng 12/11/2024 until 01/10/2026 CT Chest WO contrast CT CHEST WO IVCON Radiology Routine Aortic dilatation 12/19/2024 11:51 AM EDT [facility] Work Phone: CT Guidance for radi ation treatment of Unspecified body region CT SIM PLANNING RADIATION ONCOLOGY Radiology Routine Prostate cancer (HCC) Ordered: 08/02/2024 [facility] Work Phone: Comment on above: Ordered: 08/02/2024 End: 04-27-2024 Dup-scan artl marina abdl/pel/scrot&/rpr orgn com US DOPPLER COMPLETE Radiology Routine Pain in right testicle 1 Occurrences starting 03/29/2023 until 04/27/2024 [facility] Work Phone: Comment on above: 1 Occurrences starti ng 03/29/2023 until 04/27/2024 End: 07-27-2025 DXA Skeletal system.axial Views for bone density DXA-AXIAL SKELETON Radiology Routine Other osteoporosis, unspecified pathological fracture presence 1 Occurrences starting 06/27/2024 until 07/27/2025 [facility] Work Phone: Comment on above: 1 Occurrences starti ng 06/27/2024 until 07/27/2025 ECG COMPLETE ECG COMPLETE ECG Routine Medication monitoring encounter 10/10/2024 9:20 AM EDT [facility] End: 10-10-2025 Echocardiography ECHO Cardiology Routine Abnormal EKG 1 Occurrences starting 10/10/2024 until 10/10/2025 [facility] Work Phone: Comment on above: 1 Occurrences starti ng 10/10/2024 until 10/10/2025 End: 08-17-2024 MR Prostate WO and W contrast IV MRI PROSTATE WO/W IVCON Radiology Routine Encounter for observation for other suspected diseases and conditions ruled out 1 Occurrences starting 2023 until 08/17/2024 [facility] Work Phone: Comment on above: 1 Occurrences starti ng 2023 until 08/17/2024 MR Prostate WO and W contrast IV MRI PROSTATE WO/W IVCON Radiology Routine Encounter for observation for other suspected diseases and conditions ruled out 09/22/2023 10:57 AM EDT [facility] Work Phone: End: 08-17-2024 MR Unspecified body region 3D post processing MRI 3D POST PROCESSING Radiology Routine Elevated prostate specific antigen (PSA) Encounter for observation for other suspected diseases and conditions ruled out 1 Occurrences starting 2023 until 08/17/2024 [facility] Work Phone: Comment on above: 1 Occurrences starti ng 2023 until 08/17/2024 MR Unspecified body region 3D post processing MRI 3D POST PROCESSING Radiology Routine Elevated prostate specific antigen (PSA) Encounter for observation for other suspected diseases and conditions ruled out 09/22/2023 10:57 AM EDT [facility] End: 01-04-2025 NM Whole body Bone Views NM BONE WHOLE BODY Radiology Routine Prostate cancer (HCC) 1 Occurrences starting 12/06/2023 until 01/04/2025 [facility] Work Phone: Comment on above: 1 Occurrences starti ng 12/06/2023 until 01/04/2025 Patient Education [facility] Work Phone: Patient referral [facility] Work Phone: End: 07-29-2025 PET+CT Guidance for localization of tumor of Whole body-- W [id number] IV NM PET/CT PROSTATE WHOLE BODY IMAGING Radiology STAT Prostate cancer (HCC) 1 Occurrences starting 06/29/2024 until 07/29/2025 [facility] Work Phone: Comment on above: 1 Occurrences starti ng 06/29/2024 until 07/29/2025 POST VOID RESIDUAL POST VOID RES IDUAL Procedures Routine Benign prostatic hyperplasia with urinary obstruction Ordered: 04/20/2022 [facility] Work Phone: Comment on above: Ordered: 04/20/2022 POST VOID RESIDUAL POST VOID RES IDUAL Procedures Routine Elevated PSA Benign prostatic hyperplasia with urinary obstruction Ordered: 03/29/2023 [facility] Work Phone: Comment on above: Ordered: 03/29/2023 PROSTATE BIOPSY GUKI PROSTATE BI OPSY GUKI Procedures Routine Elevated prostate specific antigen (PSA) Ordered: 03/30/2023 [facility] Work Phone: Comment on above: Ordered: 03/30/2023 SURGICAL PATHOLOGY SURGICAL PATH OLOGY Lab Routine Elevated prostate specific antigen (PSA) 04/19/2023 10:55 AM EST [facility] Work Phone: Urine culture [facility] End: 04-27-2024 Us scrotum & contents US SCROTUM AND CONTENTS Radiology Routine Pain in right testicle 1 Occurrences starting 03/29/2023 until 04/27/2024 [facility] Work Phone: Comment on above: 1 Occurrences starti ng 03/29/2023 until 04/27/2024 [facility] Immunizations Immunization Date Immunization Notes Care Provider Fa [facility] 08-15-2020 COVID-19 original vaccine, age 12+ yr, monovalent (PFIZER-BIONTECH - PURPLE TOP) Ailin Pierson MD Work Phone: [facility] Work Phone: 07-25-2020 COVID-19 original vaccine, age 12+ yr, monovalent (PFIZER-BIONTECH - PURPLE TOP) Ailin Pierson MD Work Phone: [facility] Work Phone: 02-27-2019 influenza, high dose seasonal, preservative-free Ailin Pierson MD Work Phone: [facility] Work Phone: 02-27-2019 influenza virus vacc ine, unspecified formulation Kayla Betancourt APRN.CNP Work Phone: [facility] 10-06-2016 pneumococcal conjuga te vaccine, 13 valent Ailin Pierson MD Work Phone: [facility] Work Phone: 06-25-2014 influenza, injectabl e, quadrivalent, preservative free Dr. Ailin Pierson MD Work Phone: [facility] 06-25-2014 influenza, seasonal, injectable Ailin Pierson MD Work Phone: [facility] Work Phone: 06-22-2013 influenza virus vacc ine, unspecified formulation Ailin Pierson MD Work Phone: [facility] 09-09-2011 influenza virus vacc ine, unspecified formulation Ailin Pierson MD Work Phone: [facility] 09-09-2011 pneumococcal polysaccharide vaccine, 23 valent Ailin Pierson MD Work Phone: [facility] Payers Date Payer Category Payer Self-pay 2016 [facility] REID SYED DICARE SUPPLEMENT Member Subscriber Plan / Payer (Effective 2016-Present) Name: Zachary Short Relation to Subscriber: Self Name: Zachary Short Payer ID: [id number] (NAIC) Group ID: [id number] Type: Indemnity Address: [address] [place] [id number] 2016 Unknown REID SYED DICARE SUPPLEMENT [id number] 2016-Present [phone] [address] [place] [id number] Indemnity [id number] 2016 Medicare [id number] 2010 Medicare [id number] 2010 Medicare [id number] Unknown [id number] Unknown [id number] Unknown [id number] Unknown [id number] Unknown [id number] Unknown [id number] Unknown [id number] Unknown [id number] Unknown [id number] Unknown [id number] Unknown [id number] Social History Date Type Detail Facility Start: 09-21-2011 End: 04-19-2023 Tobacco smoking status TXIS Never smoked tobacco [facility] Start: 09-21-2011 End: 04-19-2023 Tobacco use and exposure Smokeless tobacco non-user [facility] Start: 01-13-2022 End: 12-11-2024 Alcohol intake Current drinker of alcohol (finding) [facility] Start: 06-10-2020 History SDOH Alcohol Frequency 2 [facility] Start: 06-10-2020 History SDOH Alcohol Std Drinks 1 [facility] Start: 06-10-2020 History SDOH Social Connections Phone 5 [facility] Start: 06-10-2020 History SDOH Social Connections Meetings 3 [facility] Start: 06-10-2020 History SDOH Social Connections Living 4 [facility] Start: 06-10-2020 Education 15 [facility] Start: 05-22-2012 Alcohol Comment socially, 3-4 beers/year [facility] Start: 1945 Sex Assigned At Male [facility] Start: 03-23-2022 End: 04-02-2022 Exposure to SARS-CoV-2 (event) Not sure [facility] Start: 06-10-2020 End: 03-30-2023 History of Social function [facility] Start: 06-10-2020 End: 03-30-2023 Social connection and isolation panel [facility] Do you belong to any clubs or organizations such as holiness groups, unions, fraternal or athletic groups, or school groups? Yes [facility] Are you now , , , , never or living with a partner? [facility] How often to you hav e a drink containing alcohol? Monthly or less [facility] How many standard drinks containing alcohol do you have on a typical day? 1 or 2 [facility] How often do you hav e 6 or more drinks on 1 occasion? Never [facility] How hard is it for y ou to pay for the very basics like food, housing, medical care, and heating Not hard at all [facility] Do you feel stress - tense, restless, nervous, or anxious, or unable to sleep at night because your mind is troubled all the time - these days [OSQ] Not at all [facility] (I/We) worried whecaron er (my/our) food would run out before (I/we) got money to buy more. Never true [facility] In the past 12 month s, was there a time when you were not able to pay the mortgage or rent on time? No [facility] Start: 02-20-2019 Gender identity Identifies as male gender (finding) [facility] Start: 02-20-2019 Sexual orientation Heterosexual (dominga mcintosh) [facility] How often to you hav e a drink containing alcohol? 2-4 times a month [facility] Start: 08-29-2024 Sex Male (finding) [facility] NEGATED: Highlighted rowStart: NINF History of tobacco use Passive smoker [facility] Medical Equipment Procedure Code Equipment Code Equipment Origin al Text Equipment Identifier Dates Alvaro Bn Smpx P Speedset Fd Fst - [id number] Start: 09-08-2011 Alvaro Bn Smpx P Tobra Fd - [id number] Start: 03-07-2012 Rou-Qe-X-Kind Implant - [id number] Start: 09-08-2011 Comment on above: Description: affinit i humeral stem Head Hum 18mm 48 mm Ecc Dvour - [id number] Start: 09-08-2011 Comment on above: Description: affinit i humeral head Head Hum 18mm 52 mm Ecc Affnt - [id number] Start: 03-07-2012 Stem Hum 14mm Affnt Ti Std - [id number] Start: 03-07-2012 Comp Angel 48 Peg Pros Affnt - [id number] Start: 03-07-2012 Goals Date Patient Goal Desired Activity /State Functional Status Date Assessment Result Facility 12-27-2024 Are you deaf, or do you have serious difficulty hearing No 12/27/2024 3:27 PM Karla Castro RN No [facility] 12-27-2024 Are you blind, or do you have serious difficulty seeing, even when wearing glasses No 12/27/2024 3:27 PM Karla Castro, LAY No [facility] 12-27-2024 Do you have serious difficulty walking or climbing stairs No 12/27/2024 3:27 PM Karla Castro, LAY No [facility] 12-27-2024 Do you have difficul ty dressing or bathing No 12/27/2024 3:27 PM Karla Castro, LAY No [facility] 12-27-2024 Because of a physica l, mental, or emotional condition, do you have difficulty doing errands alone such as visiting a physician's office or shopping No 12/27/2024 3:27 PM Karla Castro, LAY No [facility] 11-29-2024 Are you deaf, or do you have serious difficulty hearing No 11/29/2024 3:01 PM Essie Samuel RN No [facility] 11-29-2024 Are you blind, or do you have serious difficulty seeing, even when wearing glasses No 11/29/2024 3:01 PM Essie Samuel RN No [facility] 11-29-2024 Do you have serious difficulty walking or climbing stairs No 11/29/2024 3:01 PM Essie Samuel RN No [facility] 11-29-2024 Do you have difficul ty dressing or bathing No 11/29/2024 3:01 PM Essie Samuel RN No [facility] 11-29-2024 Because of a physica l, mental, or emotional condition, do you have difficulty doing errands alone such as visiting a physician's office or shopping No 11/29/2024 3:01 PM Essie Samuel RN No [facility] 06-21-2024 Functional status Chair [facility] Work Phone: 05-24-2024 Functional status [facility] Work Phone: 2014 Are you deaf, or do you have serious difficulty hearing No 2014 1:03 PM Evelyn Boateng LPN No [facility] 2014 Are you blind, or do you have serious difficulty seeing, even when wearing glasses No 2014 1:03 PM Evelyn Boateng LPN No [facility] 2014 Do you have serious difficulty walking or climbing stairs No 2014 1:03 PM Evelyn Boateng LPN No [facility] 2014 Do you have difficul ty dressing or bathing No 2014 1:03 PM Evelyn Boateng LPN No [facility] 2014 Because of a physica l, mental, or emotional condition, do you have difficulty doing errands alone such as visiting a physician's office or shopping No 2014 1:03 PM Evelyn Boateng LPN No [facility] Mental Status Date Assessment Result Facility 12-27-2024 Because of a physica l, mental, or emotional condition, do you have serious difficulty concentrating, remembering, or making decisions No 12/27/2024 3:27 PM EDT Karla Zaidi, LAY No [facility] 11-29-2024 Because of a physica l, mental, or emotional condition, do you have serious difficulty concentrating, remembering, or making decisions No 11/29/2024 3:01 PM EDT Essie Montiel RN No [facility] 06-21-2024 Cognitive function Voice/Name [facility] Work Phone: 05-24-2024 Cognitive function Voice/Name [facility] Work Phone: 2014 Because of a physica l, mental, or emotional condition, do you have serious difficulty concentrating, remembering, or making decisions No 2014 1:03 PM Evelyn Boateng LPN No [facility] Clinical Notes 05-17-2008 to 01-01-2025 Mario Justin - 12/28/2024 12:32 PM Joseluis Mckinney RN - 12/28/2024 10:27 AM Arsen Cabrera RN - 12/26/2024 9:23 AM Nithya Pardo RT(R) - 12/19/2024 11:40 AM EDT Note Date & Type Note Facility 01-01-2025 Note HNO ID: [id number] Author: AILIN PIERSON MD Service: ? Author Type: Physician Type: Progress Notes Filed: 01/01/2025 17:10 Note Text: Reason for Visit Follow up HPI Zachary Short is a 79-year-old male, with a history of recurrent UTIs, presenting for follow-up after a recent hospitalization for a UTI. Zachary was admitted to the hospital on 12/24 and discharged on 12/27 for a UTI. He was treated with IV Rocephin, and urine cultures showed E. coli, which was alexandre-sensitive. He was discharged with a 5-day course of Keflex, with 2 days remaining. He reports feeling weak and experiencing dyspnea on exertion, which he attributes to the recent radiation treatment. He also reports dizziness and lightheadedness, which he believes may be related to his anemia. He denies any known heart or lung problems. Zachary also reports a recent fall, which he attributes to dizziness from the infection. He fell in his driveway while trying to move a trash barrel and snowblower. He denies any injuries from the fall. Zachary also reports the hospital personnel told him that he has sleep apnea, as he stopped breathing mutliple times , but has not been using a CPAP machine and has always declined wanting one. He expresses reluctance to undergo a sleep study, but is considering it due to his symptoms. Social History Tobacco Use Smoking status: Never Passive exposure: Never Smokeless tobacco: Never Vaping Use Vaping status: Never Used Substance Use Topics Alcohol use: Yes Comment: socially, 3-4 beers/year Drug use: No Past medical history, appointments, medications, allergies reviewed. Pertinent Lab/Diagnostic Studies are reviewed and discussed today Current Outpatient Medications: cephALEXin (KEFLEX) 500 mg capsule finasteride (PROSCAR) 5 mg tablet colestipol (COLESTID) 1 gram tablet citalopram (CELEXA) 20 mg tablet tamsulosin (FLOMAX) 0.4 mg oxyCODONE-acetaminophen 5-325 mg (PERCOCET) azelastine 0.1% nasal spray lisinopril-hydroCHLOROthiazide (ZESTORETIC) 10-12.5 mg per tablet ergocalciferol 50,000 unit capsule (VITAMIN D2, DRISDOL) polyethylene glycol 3350 (MIRALAX) 17 gram/dose powder aspirin, enteric coated (ASPIRIN, ENTERIC COATED) 81 mg EC tablet Health Maintenance Depression Screening Anxiety Screening DTaP,Tdap,Td Vaccine(1 - Tdap) Shingrix Vaccine(1 of 2) Medicare Annual Wellness Visit RSV Vaccine(1 - 1-dose 75+ series) Advance Directive Discussion@ Review Of Systems Constitutional: (+) weakness Neurological: (+) dizziness, (+) lightheadedness, (+) memory impairment Respiratory: (+) exertional shortness of breath Gastrointestinal: (+) nocturnal regurgitation Physical Exam BP 88/58 Pulse 93 Resp 18 Wt 108.8 kg (239 lb 12.8 oz) SpO2 97% BMI 33.45 kg/m? GENERAL: NAD, alert and oriented. SKIN: Unremarkable, no rash or skin lesions. HEAD: Normocephalic. EYES: PERRLA, EOMI, conjunctiva clear. LUNGS: Clear to auscultation bilaterally, no wheezes/rhonchi/rales. HEART: Regular rate and rhythm, no murmurs. No ectopy. EXTREMITIES: Normal, no deformities, no skin discoloration, no edema. NEURO: Awake, alert and oriented x3, cranial nerves II-XII grossly intact, normal gait, no involuntary motions. Labs: (12/24) - Blood culture: No growth - Urine culture: Escherichia coli, alexandre sensitive - Hemoglobin: Low Imaging: - CT Scan: Bulging aorta, incisional hernia noted, no evidence of active malignancy Assessment and Plan 1. Iron deficiency (E61.1) Recent hospitalization revealed low hemoglobin levels. Patient reports feeling weak and experiencing shortness of breath. - Ordered iron infusions to address deficiency. 2. Sleep apnea, unspecified type (G47.30) Patient has a history of sleep apnea and has previously been reluctant to use CPAP therapy. Reports difficulty breathing and significant weakness. - Ordered sleep study at [facility] to evaluate the severity of sleep apnea and determine appropriate CPAP settings. 3. Hospital discharge follow-up (Z09) Admitted from 12/24 to 12/27 for a UTI caused by E. 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 Treated with IV Rocephin and currently completing a 5-day course of Keflex. Patient also reports a recent fall, possibly related to dizziness from the infection. - Complete the remaining 2 days of Keflex therapy. - Monitor for any recurrent symptoms or complications. Voice recognition software was used to compose this office note. Please excuse any unintended typographical errors. Recording using [employer] software for draft documentation of the visit was discussed with the patient/authorized product support representative; all questions welcomed and answered. Patient/authorized product support representative agreed to proceed Ailin Pierson MD [facility] 12-28-2024 Note HNO ID: [id number] Author: MARIO JUSTIN, ? Service: ? Author Type: Patient Wet Pan Mixer Type: Progress Notes Filed: 12/28/2024 12:40 Note Text: POPULATION HEALTH NAVIGATION OUTREACH Action/FYI Please also help him get an appointment ERMA with his urologist Dr. Blanton. ( Appointment not available until Scheduled patient TCM appt with PCP Reason for Outreach Community Monitoring/Network Navigator Pools AND Phone Line: CM Pool Care Gaps due: Medicare Annual Wellness Visit Follow-up Appointment Patient Contacted: Spoke to patient/parent/or legal guardian Patient identified by name and : Yes Community Monitoring/Network Navigator Pools AND Phone Line actions taken: Patient scheduled / pended orders: Hospital Follow-up: Medium risk 10-14% 01/01/2025 in [facility] with AILIN PIERSON - 3 mo follow up 04/10/2025 in [facility] with [facility] - PSA 04/17/2025 in [facility] with VINCE HUFFMAN - 6MO/LABS 03/31* Navigation Signature: Mario Justin Population piSociety Navigator December 28, 2024 12:32 PM [facility] 12-28-2024 History of Present illness Narrative POPULATION HEALTH NAVIGATION OUTREACH Action/FYI Please also help him get an appointment ERMA with his urologist Dr. Blanton. ( Appointment not available until Scheduled patient TCM appt with PCP Reason for Outreach Community Monitoring/Network Navigator Pools & Phone Line: CM Pool Care Gaps due: Medicare Annual Wellness Visit Follow-up Appointment Patient Contacted: Spoke to patient/parent/or legal guardian Patient identified by name and : Yes Community Monitoring/Network Navigator Pools & Phone Line actions taken: Patient scheduled / pended orders: Hospital Follow-up: Medium risk 10-14% 01/01/2025 in [facility] with AILIN PIERSON - 3 mo follow up 04/10/2025 in [facility] with [facility] - PSA 04/17/2025 in [facility] with VINCE HUFFMAN - 6MO/LABS 03/31* Navigation Signature: Mario Justin Population Health Navigator December 28, 2024 12:32 PM Transition Care Management (TCM) Initial Outreach PCP Update / Actionable Items Navigation Team Update / Actionable Items Please call patient to try to get a sooner appointment with PCP office for TCM if one is available. RS 22%, Please also help him get an appointment ERMA with his urologist Dr. Blanton. Thank you, Joseluis Lawton RN RUSTIC TCM Home Visit Referral Source of Stratification: TCM HUB Hospital Admission Status: Discharged Readmission Risk Score: 22 Patient meets program referral criteria: No Patient does not qualify for High Risk TCM Home Visit program due to: Readmission Risk Score does not meet criteria Disposition: Patient does not qualify for HRTIC, will provide TCM outreach follow-up for 30-days Patient Source: In-Network Discharge Initial outreach: TCM discharge report Outreach Summary: Patient reports that he is feeling better but fatigued, probably from being in bed for 3 days. Instructed on symptoms of UTI and how to prevent with drinking plenty of fluids and urinating often to empty bladder. He has hx of retention and has been seeing a urologist. Instructed on ED measures for inability to urinate. Also explained that he can go to an express clinic or PCP/urology office for very early symptoms of UTI in an effort to avoid the ED. Reviewed DC'd and new medications. He is taking antibiotic four times a day until completed. He would like a sooner appointment with PCP if one is available and an appointment with his urologist. Sent to navigator. Sent [employer] message at his request with the H@H phone number. Patient discharged from [facility] Discharge date: 12/27/24 Admitted for: UTI Readmission Risk: 22 Value-Based Contract: ACO Contact: Contact made with patient: Yes Hi, my name is Joseluis Lawton RN and I am calling from the [facility] on behalf of your Primary Care Provider, Ailin Pierson MD. I understand you were recently in the hospital, so I am calling to check in with you to ensure you are feeling well now that you are home. May I ask you a few questions related to your hospital stay and well-being? Yes Spoke to: Patient Validation: Validated the person spoken to is actively involved in the patient's care. The patient was identified by Name and Date of . Symptoms: Are you feeling about the same, better or worse since leaving the hospital? Better Medications: Do you have any questions about taking your medications, including which medications you should be on, or do you need refills on your medications? No Medication Review: Partial mediation review completed, per patient preference Discharge Instructions: Your Discharge Instructions / After Visit Summary (AVS) are important in guiding you through the recovery process. Do you have any questions related to your discharge instructions? No Home Care: Were you discharged with home care? No Equipment: Do you have all the necessary equipment and supplies needed at your home? Yes The patient verbalizes understanding the use of the equipment and supplies Social: Your mental health is as important to us as your physical health. Would you mind answering a few questions on this topic? Yes On the Storyboard review: Food Insecurity, Transportation, Depression, Housing, and Financial Strain: Complete any SDOHs, listed above, if not addressed in the past 3 months. If all SDOHs, listed above, have been addressed within the last 3 months, confirm responses and update any SDOHs that have changed. Action Taken: No needs verbalized. No action required. Follow-Up Appointment: [Appointment / TCM Follow-up within 14 days] I would like to help you schedule a hospital follow-up virtual or telephone visit with your PCP. This is a great way for you to connect with your provider to ensure you have safely transitioned home. If you are agreeable, I will send your request to a project controls scheduler who will contact and assist you with that appointment. This will give you an opportunity to ask any questions or address any concerns you may have with your PCP. Inform the patient that if they have any questions or concerns prior to that appointment, to call their PCP's office right away. Appointment Action: Patient desires an appointment. Complete Navigation Team box and route to appropriate pool for scheduling. Education details: Patient and family educated on issues/questions related to reason for admission, transition of care topics, and follow-up needed upon discharge. Joseluis Lawton RN December 28, 2024 10:28 AM documented in this encounter [facility] 12-28-2024 Note HNO ID: [id number] Author: JOSELUIS LAWTON RN Service: ? Author Type: Registered Nurse Type: Progress Notes Filed: 12/28/2024 11:19 Note Text: Transition Care Management (TCM) Initial Outreach PCP Update / Actionable Items Navigation Team Update / Actionable Items Please call patient to try to get a sooner appointment with PCP office for TCM if one is available. RS 22%, Please also help him get an appointment ERMA with his urologist Dr. Blanton. Thank you, Joseluis Lawton RN [facility] TCM Home Visit Referral Source of Stratification: [facility] Hospital Admission Status: Discharged Readmission Risk Score: 22 Patient meets program referral criteria: No Patient does not qualify for High Risk TCM Home Visit program due to: Readmission Risk Score does not meet criteria Disposition: Patient does not qualify for RUSTIC, will provide TCM outreach follow-up for 30-days Patient Source: In-Network Discharge Initial outreach: TCM discharge report Outreach Summary: Patient reports that he is feeling better but fatigued, probably from being in bed for 3 days. Instructed on symptoms of UTI and how to prevent with drinking plenty of fluids and urinating often to empty bladder. He has hx of retention and has been seeing a urologist. Instructed on ED measures for inability to urinate. Also explained that he can go to an express clinic or PCP/urology office for very early symptoms of UTI in an effort to avoid the ED. Reviewed DC'd and new medications. He is taking antibiotic four times a day until completed. He would like a sooner appointment with PCP if one is available and an appointment with his urologist. Sent to navigator. Sent [employer] message at his request with the H@H phone number. Patient discharged from [facility] Discharge date: 12/27/24 Admitted for: UTI Readmission Risk: 22 Value-Based Contract: ACO Contact: Contact made with patient: Yes Hi, my name is Joseluis Lawton RN and I am calling from the [facility] on behalf of your Primary Care Provider, Ailin Pierson MD. I understand you were recently in the hospital, so I am calling to check in with you to ensure you are feeling well now that you are home. May I ask you a few questions related to your hospital stay and well-being? Yes Spoke to: Patient Validation: Validated the person spoken to is actively involved in the patient's care. The patient was identified by Name and Date of . Symptoms: Are you feeling about the same, better or worse since leaving the hospital? Better Medications: Do you have any questions about taking your medications, including which medications you should be on, or do you need refills on your medications? No Medication Review: Partial mediation review completed, per patient preference Discharge Instructions: Your Discharge Instructions / After Visit Summary (AVS) are important in guiding you through the recovery process. Do you have any questions related to your discharge instructions? No Home Care: Were you discharged with home care? No Equipment: Do you have all the necessary equipment and supplies needed at your home? Yes The patient verbalizes understanding the use of the equipment and supplies Social: Your mental health is as important to us as your physical health. Would you mind answering a few questions on this topic? Yes On the Storyboard review: Food Insecurity, Transportation, Depression, Housing, and Financial Strain: Complete any SDOHs, listed above, if not addressed in the past 3 months. If all SDOHs, listed above, have been addressed within the last 3 months, confirm responses and update any SDOHs that have changed. Action Taken: No needs verbalized. No action required. Follow-Up Appointment: [Appointment / TCM Follow-up within 14 days] I would like to help you schedule a hospital follow-up virtual or telephone visit with your PCP. This is a great way for you to connect with your provider to ensure you have safely transitioned home. If you are agreeable, I will send your request to a project controls scheduler who will contact and assist you with that appointment. This will give you an opportunity to ask any questions or address any concerns you may have with your PCP. Inform the patient that if they have any questions or concerns prior to that appointment, to call their PCP's office right away. Appointment Action: Patient desires an appointment. Complete Navigation Team box and route to appropriate pool for scheduling. Education details: Patient and family educated on issues/questions related to reason for admission, transition of care topics, and follow-up needed upon discharge. Joseluis Lawton RN December 28, 2024 10:28 AM [facility] 12-28-2024 Note Patient Outreach (AM [facility]) ZACHARY SHORT ([id number]) 1945 M Date Time Provider Department 12/28/24 JOSELUIS LAWTONKimberly During your visit today, we recorded the following information about you: Joseluis Lawton RN 12/28/2024 11:19 AM Signed Transition Care Management (TCM) Initial Outreach PCP Update / Actionable Items Navigation Team Update / Actionable Items Please call patient to try to get a sooner appointment with PCP office for TCM if one is available. RS 22%, Please also help him get an appointment ERMA with his urologist Dr. Blanton. Thank you, Joseluis Lawton RN RUSTIC TCM Home Visit Referral Source of Stratification: [facility] Hospital Admission Status: Discharged Readmission Risk Score: 22 Patient meets program referral criteria: No Patient does not qualify for High Risk TCM Home Visit program due to: Readmission Risk Score does not meet criteria Disposition: Patient does not qualify for HRTIC, will provide TCM outreach follow-up for 30-days Patient Source: In-Network Discharge Initial outreach: TCM discharge report Outreach Summary: Patient reports that he is feeling better but fatigued, probably from being in bed for 3 days. Instructed on symptoms of UTI and how to prevent with drinking plenty of fluids and urinating often to empty bladder. He has hx of retention and has been seeing a urologist. Instructed on ED measures for inability to urinate. Also explained that he can go to an express clinic or PCP/urology office for very early symptoms of UTI in an effort to avoid the ED. Reviewed DC'd and new medications. He is taking antibiotic four times a day until completed. He would like a sooner appointment with PCP if one is available and an appointment with his urologist. Sent to navigator. Sent [employer] message at his request with the H@H phone number. Patient discharged from [facility] Discharge date: 12/27/24 Admitted for: UTI Readmission Risk: 22 Value-Based Contract: ACO Contact: Contact made with patient: Yes Hi, my name is Joseluis Lawton RN and I am calling from the [facility] on behalf of your Primary Care Provider, Ailin Pierson MD. I understand you were recently in the hospital, so I am calling to check in with you to ensure you are feeling well now that you are home. May I ask you a few questions related to your hospital stay and well-being? Yes Spoke to: Patient Validation: Validated the person spoken to is actively involved in the patient's care. The patient was identified by Name and Date of . Symptoms: Are you feeling about the same, better or worse since leaving the hospital? Better Medications: Do you have any questions about taking your medications, including which medications you should be on, or do you need refills on your medications? No Medication Review: Partial mediation review completed, per patient preference Discharge Instructions: Your Discharge Instructions / After Visit Summary (AVS) are important in guiding you through the recovery process. Do you have any questions related to your discharge instructions? No Home Care: Were you discharged with home care? No Equipment: Do you have all the necessary equipment and supplies needed at your home? Yes The patient verbalizes understanding the use of the equipment and supplies Social: Your mental health is as important to us as your physical health. Would you mind answering a few questions on this topic? Yes On the Storyboard review: Food Insecurity, Transportation, Depression, Housing, and Financial Strain: Complete any SDOHs, listed above, if not addressed in the past 3 months. If all SDOHs, listed above, have been addressed within the last 3 months, confirm responses and update any SDOHs that have changed. Action Taken: No needs verbalized. No action required. Follow-Up Appointment: [Appointment / TCM Follow-up within 14 days] I would like to help you schedule a hospital follow-up virtual or telephone visit with your PCP. This is a great way for you to connect with your provider to ensure you have safely transitioned home. If you are agreeable, I will send your request to a project controls scheduler who will contact and assist you with that appointment. This will give you an opportunity to ask any questions or address any concerns you may have with your PCP. Inform the patient that if they have any questions or concerns prior to that appointment, to call their PCP's office right away. Appointment Action: Patient desires an appointment. Complete Navigation Team box and route to appropriate pool for scheduling. Education details: Patient and family educated on issues/questions related to reason for admission, transition of care topics, and follow-up needed upon discharge. Joseluis Lawton RN December 28, 2024 10:28 AM Anne Justin (more content not included)... [facility] 12-27-2024 Note HNO ID: [id number] Author: SHANITA BERRIOS LSW Service: Care Management Author Type: Medical Library Assistant Type: Care Mgt Progress Note Filed: 12/27/2024 14:49 Note Text: CARE MANAGEMENT DISCHARGE NOTE SERVICE DATE: December 27, 2024 SERVICE TIME: 2:47 PM Admission Date: 12/24/2024 LOS: 3 days Discharge Arrangement Discharge Arrangement: Home with Self Care Services Arranged None Caregiver Assessment Caregiver is ready, willing and able to meet the patient's needs as recommended by the inter-professional team: No Caregiver needed Transportation Arrangements Transportation Arrangements: Car Date of Trip: 12/27/24 Destination: Home Handoff Communication: Handoff to: Primary Care Physician Primary Care Physician Name/Phone: Ailin Pierson MD/[phone] Discharge order placed. CMSW met with the patient at bedside to discuss PT/OT recommendation of Home PT/OT; patient declines home health care at this time. Patient is discharging home with self care and is driving himself home. Patient is aware and agreeable to discharge plan. Rounded with RN and PCNA. No additional CM needs. SIGNATURE: TODD Hauser PATIENT NAME: Zachary Short DATE: December 27, 2024 TIME: 2:47 PM [facility] 12-26-2024 Note HNO ID: [id number] Author: ALLISON SUN MD Service: Hospital Medicine Author Type: Physician Type: Progress Notes Filed: 12/26/2024 12:24 Note Text: INPATIENT PROGRESS NOTE SERVICE DATE: 12/26/2024 PRIMARY SERVICE: Hospital Medicine CHIEF COMPLAINT: UTI Subjective No fever chills nausea vomiting Current Facility-Administered Medications Medication Dose Route Frequency NaCl 0.9% iv flush bag 20 mL INTRAVENOUS PRN piperacillin-tazobactam iv piggyback 3.375 g in dextrose (iso-osmotic) 50 mL (ZOSYN) 3.375 g INTRAVENOUS q 6 HR oxyCODONE-acetaminophen 5-325 mg 1 tablet (PERCOCET) 1 tablet ORAL q 4 H PRN colestipol 1 g tab(s) (COLESTID) 1 g ORAL BID polyethylene glycol 3350 17 g packet 17 g ORAL DAILY PRN finasteride 5 mg tab(s) (PROSCAR) 5 mg ORAL DAILY tamsulosin 0.4 mg cap(s) (FLOMAX) 0.4 mg ORAL BID ondansetron orally disintegrating 4 mg tab(s) (ZOFRAN ODT) 4 mg ORAL q 6 H PRN Or ondansetron (PF) 4 mg injection (ZOFRAN) 4 mg INTRAVENOUS q 6 H PRN acetaminophen 650 mg tab(s) (TYLENOL) 650 mg ORAL q 6 H PRN aspirin, enteric coated 81 mg tab(s) 81 mg ORAL DAILY lisinopril 10 mg tab(s) (ZESTRIL) 10 mg ORAL DAILY And hydroCHLOROthiazide 12.5 mg tab(s) 12.5 mg ORAL DAILY phenazopyridine 200 mg tab(s) (PYRIDIUM) 200 mg ORAL TID after MEALS Objective PHYSICAL EXAM: BP 127/75 Pulse 55 Temp (Src) 97.7 (Oral) Resp 18 Ht 5' 11 (1.80m) Wt 230 lb 2.6 oz (104.4kg) SpO2 98% BMI 32.12 kg/(m2). O2 Therapy: Room Air General: Patient is alert and is in no acute respiratory distress. Lungs: Clear to auscultation, no wheezing, rales, or rhonchi. Cardiac: S1-S2 within normal limits Abdomen: Soft, nontender, nondistended. Extremities: No cyanosis Neurologic: Cranial nerves from II-XII intact grossly. Psych normal affect. DATA: LABORATORY TESTS: CBC: Recent Labs 12/26/2444512/25/2443612/24/241918 WBC 7.22 7.85 8.56 HB 9.3* 9.0* 9.7* PLT 185 201 202 MCV 106.3* 105.6* 105.1* NEUTP 70.4 -- 76.9 ABSNEUT 5.09 -- 6.58 LYMPHP 11.1 -- 9.2 EODINP 6.0 -- 2.0 CHEM: Recent Labs 12/26/2444612/25/2443612/24/241918 NA 137 138 135* K 4.4 4.0 4.7 CA 9.1 8.8 9.1 MG 2.2 1.8 1.9 ANION 10 12 13 CHLOR 100 101 99 CO2 27 25 23 GLUC 98 94 98 BUN 18 16 20 CREAT 1.29* 0.94 1.08 HEPATIC: Recent Labs 12/24/241918 ALT 14 AST 19 TBILI 0.2 ALKPHOS 87 ALB 3.9 TPROT 7.5 URINALYSIS: Recent Labs 12/24/24 191 SPGR 1.025 UBACTERIA Many* LEUKEST 1+* UWBC >25 /HPF* URBC 6-10 /HPF* UHB 2+* UPROT 3+* UGLUC Negative UKET Negative COAG: No results for input(s): APTT, INR in the last 168 hours. CARDIAC: No results for input(s): CKMB, CKMBP, TROPT, PBNP in the last 168 hours. DATA: Diagnostic tests reviewed for today's visit: Most recent labs and imaging results. Most recent EKG Urine Culture: Positive Micro-30 Days No results found for the last 720 hours. Blood Culture: Positive Micro-30 Days No results found for the last 720 hours. Medication and Non-Pharmacologic VTE Prophylaxis/Anticoagulants Anticoagulant AND Antiplatelet Medications (From admission, onward) Start Dose Route Frequency Last Action Ordered Stop 12/25/24 0900 aspirin, enteric coated 81 mg tab(s) 81 mg PO DAILY Given, 12/26 0800 12/24/24 2238 -- 12/24/24 2245 activity - mobilize patient (ok,fl) VTE Prophylaxis: VTE prophylaxis appropriate Assesment: Acute E. coli UTI Generalized weakness debility and fall secondary to UTI BPH, prostate cancer status post radiation and TURP Hypertension Hyperlipidemia GERD Anemia Plan *Patient initiated emergency room he was started on IV Zosyn and vancomycin, before microbiology, ID was consulted. I will add Pyridium *DC Mahoney catheter, continue BPH medications *Blood work was reviewed HANDH low but stable *Continue chronic home medications monitor vital signs *Check CBC BMP magnesium for tomorrow *Constipation the patient and his [id number] at bedside Plan 12/10/2019 *Continue IV antibiotics Zosyn, vancomycin was discontinued, continue Pyridium patient benefited from diet, patient urine culture showed E. coli pending sensitivity, blood culture no growth at 1 day ID note was reviewed from yesterday. *Blood work was reviewed HANDH low but stable *Continue chronic home medications monitor vital signs *Check CBC BMP magnesium for tomorrow Plan of care discussed with: Provider, RN, Patient. Disclaimer This dictation was created using voice recognition software. Phonetic and/or minor grammatical errors may exist. SIGNATURE: Allison Sun MD PATIENT NAME: Zachary Short [facility] 12-26-2024 Note HNO ID: [id number] Author: ARSEN ISRAEL RN Service: ? Author Type: Registered Nurse Type: Progress Notes Filed: 12/26/2024 09:24 Note Text: Transitional Care Management (TCM) Inpatient Outreach N/A - No specialty updates needed Summary: Patient admitted to: [facility] Patient admitted on: (Not on file) Admitted for: Acute urinary tract infection Contact made with patient: No MyChart message sent Arsen Israel RN December 26, 2024 [facility] 12-26-2024 History of Present illness Narrative Transitional Care Management (TCM) Inpatient Outreach N/A - No specialty updates needed Summary: Patient admitted to: [facility] Patient admitted on: (Not on file) Admitted for: Acute urinary tract infection Contact made with patient: No MyChart message sent Arsen Israel RN December 26, 2024 documented in this encounter [facility] 12-26-2024 Note Patient Outreach (AM [facility]) ZACHARY SHORT ([id number]) 1945 M Date Time Provider Department 12/26/24 ARSEN ISRAEL AMBWALTERG During your visit today, we recorded the following information about you: Arsen Israel RN 12/26/2024 9:24 AM Signed Transitional Care Management (TCM) Inpatient Outreach N/A - No specialty updates needed Summary: Patient admitted to: [facility] Patient admitted on: (Not on file) Admitted for: Acute urinary tract infection Contact made with patient: No MyChart message sent Arsen Israel RN December 26, 2024 Allergies As of Date: 12/26/2024 Noted Allergy Reaction RAMELTEON 05/22/2024 1 - Mental Status Change Date Reviewed: 12/26/2024 Reviewed by: Chris Nolan RN - Fully Assessed Reason for Visit: Transition Of Care [4074] Cmt: TCM Inpatient reach in Prescriptions as of 12/26/2024 - finasteride (PROSCAR) 5 mg tablet Take 1 tablet by mouth once daily. - colestipol (COLESTID) 1 gram tablet Take 1 tablet by mouth two times a day. - citalopram (CELEXA) 20 mg tablet Take 1 tablet by mouth once daily. - tamsulosin (FLOMAX) 0.4 mg Take 1 capsule by mouth two times a day. - oxyCODONE-acetaminophen 5-325 mg (PERCOCET) Take 1-2 tablets by mouth every 4 hours as needed (for pain). - azelastine 0.1% nasal spray Use 1 [place] in each nostril two times a day. - lisinopril-hydroCHLOROthiazide (ZESTORETIC) 10-12.5 mg per tablet Take 1 tablet by mouth once daily. - ergocalciferol 50,000 unit capsule (VITAMIN D2, DRISDOL) Take 1 capsule by mouth two times a week. TO BE TAKEN ORALLY DIRECTED. Take 1 tablet by mouth twice weekly [id number], then decrease to 1 tablet weekly. - naproxen (NAPROSYN) 500 mg tablet Take 1 tablet by mouth two times a day as needed (for pain/inflammation). Take with food. - polyethylene glycol 3350 (MIRALAX) 17 gram/dose powder Take 17 g by mouth once daily. Dissolve dose in 4 - 8 ounces of liquid and take as directed. - aspirin, enteric coated (ASPIRIN, ENTERIC COATED) 81 mg EC tablet Take 81 mg by mouth once daily. Facility-Administered Medications as of 12/26/2024 - phenazopyridine 200 mg tab(s) (PYRIDIUM) - NaCl 0.9% iv flush bag - piperacillin-tazobactam iv piggyback 3.375 g in dextrose (iso-osmotic) 50 mL (ZOSYN) - oxyCODONE-acetaminophen 5-325 mg 1 tablet (PERCOCET) - colestipol 1 g tab(s) (COLESTID) - polyethylene glycol 3350 17 g packet - finasteride 5 mg tab(s) (PROSCAR) - tamsulosin 0.4 mg cap(s) (FLOMAX) - ondansetron orally disintegrating 4 mg tab(s) (ZOFRAN ODT) - ondansetron (PF) 4 mg injection (ZOFRAN) - acetaminophen 650 mg tab(s) (TYLENOL) - aspirin, enteric coated 81 mg tab(s) - lisinopril 10 mg tab(s) (ZESTRIL) - hydroCHLOROthiazide 12.5 mg tab(s) Problem List As Of Date 12/26/2024 Noted Resolved Mixed hyperlipidemia [E78.2] 11/09/2005 Unspecified Asthma [J45.909] 11/09/2005 Personal history of other malignant neoplasm of*03/31/2006 Cervical Spondylosis without Myelopathy [M47.81* Family History of Malignant Neoplasm of Gastroi*05/16/2008 Primary Localized Osteoarthrosis, Shoulder Quin*05/16/2008 ACTINIC KERATOSIS (Premalignant AK) [L57.0] 05/17/2008 Other Seborrheic Keratosis [L82.1] 05/17/2008 09/15/2009 ACTINIC DAMAGE///CHR SOLAR SKIN DAMAGE NOS [L57*05/17/2008 09/15/2009 Rosacea [L71.9] 05/17/2008 Primary hypertension [I10] 09/15/2009 Obesity [E66.9] 09/15/2009 Irritated//Inflamed Seborrheic Keratosis [L82.0]09/23/2009 Solar lentigo [L81.4] 09/23/2009 Bladder Neck Obstruction [N32.0] 10/30/2009 Hypertrophy of prostate with urinary obstructio*05/28/2010 Arthritis of shoulder region, left, degenerativ*08/03/2011 Benign neoplasm of rectum and anal canal [D12.8*08/23/2011 Pain in joint, shoulder region [M25.519] 10/21/2011 Chronic knee pain [M25.569, G89.29] 02/28/2017 Preop examination [Z01.818] 11/21/2023 Elevated prostate specific antigen (PSA) [R97.2*11/21/2023 11/29/2023 Obesity, Class I, BMI 30-34.9 [E66.811] 11/21/2023 Prostate cancer (HCC) [C61] 11/29/2023 BPH with obstruction/lower urinary tract sympto*11/28/2024 Hypotension [I95.9] 12/17/2024 Lightheaded [R42] 12/17/2024 Acute on chronic urinary retention [R33.9] 12/24/2024 Acute urinary tract infection [N39.0] 05/27/2024 Fall [W19.XXXA] 12/24/2024 GERD (gastroesophageal reflux disease) [K21.9] 08/08/2017 Weakness [R53.1] 12/24/2024 Hyponatremia [E87.1] 12/24/2024 Acute UTI (urinary tract infection) [N39.0] 12/24/2024 Encounter Status:Closed by ARSEN ISRAEL on 12/26/24 [facility] 12-25-2024 Note HNO ID: [id number] Author: SHANITA BERRIOS LSW Service: Care Management Author Type: Medical Library Assistant Type: Care Mgt Initial Assessment Filed: 12/25/2024 16:23 Note Text: CARE MANAGEMENT: ASSESSMENT AND DISCHARGE PLAN SERVICE DATE: December 25, 2024 SERVICE TIME: 4:19 PM PCP: Ailin Pierson MD Primary Contact: Extended Emergency Contact Information Primary Emergency Contact: Arnoldo Short Mobile Relation: Son Admission Status: Inpatient Insurance Provider: MEDICARE A AND B Discharge Planning requested by: Per Department Practice Potential Transition Plans Home Advance Directives Current Advance Directive: Health Care Power of Skiver Machine Operator, Living Will In Chart: Yes Up To Date and Valid: Yes Current Living Arrangements and Support Lives with: Alone Type of Residence: Private Residence (House) Does the patient have to climb stairs at home?: Yes, stairs within the home (ranch with basement) Support: Family members, Friends/neighbors, Children How do you manage to accomplish the following: Independent: Ambulation, Bathe/Shower, Dress, Meals/Meal Prep, Going to the bathroom, Medication Management, Transportation to appointments/community Current Services/Equipment Current Post-Acute Service(s): DME Current DME Type: Grab bars, Shower seat, Walker, Cane, Other: See Comment (walking stick) Discharge Planning Patient Goal(s): General wellness [place] Choice Explained: [place] of [place] Given: No Reason Not Given: No placements necessary Are you interested in bedside delivery of your medications? No Discharge Planning Participant(s): Patient Patient/Family Comments: Caregiver Assessment: Caregiver is ready, willing and able to meet the patient's needs as recommended by the inter-professional team: No Caregiver needed Transport at Discharge: Transportation Arrangements: Car Destination: Home Needs Prior to Discharge: Needs Prior to Discharge: To Be Determined, Discharge Transportation, Other: See Comment (medical clearance) Post-Acute Discharge Plan: CMSW met with the patient at bedside; introduced self/role. Patient is an 79 year old male who presents with acute urinary tract infection with PMHx of HTN, HLD, GERD, BPH, prostate cancer s/p radiation with recent negative biopsy 11/28/24, and hx chronic urinary retention. 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 Patient drives and states that he drove himself here. Patient is from home alone and states that he is safe and has his needs met. CM assigned will continue to follow for discharge needs. SIGNATURE: TODD Hauser PATIENT NAME: Zachary Short DATE: December 25, 2024 TIME: 4:19 PM [facility] 12-25-2024 Note HNO ID: [id number] Author: ALLISON SUN MD Service: Hospital Medicine Author Type: Physician Type: Progress Notes Filed: 12/25/2024 14:36 Note Text: INPATIENT PROGRESS NOTE SERVICE DATE: 12/25/2024 PRIMARY SERVICE: Hospital Medicine CHIEF COMPLAINT: UTI Subjective Still have burning with urination no fever chills nausea vomiting Current Facility-Administered Medications Medication Dose Route Frequency NaCl 0.9% iv flush bag 20 mL INTRAVENOUS PRN piperacillin-tazobactam iv piggyback 3.375 g in dextrose (iso-osmotic) 50 mL (ZOSYN) 3.375 g INTRAVENOUS q 6 HR vancomycin dosing and monitoring per pharmacy OTHER As Directed oxyCODONE-acetaminophen 5-325 mg 1 tablet (PERCOCET) 1 tablet ORAL q 4 H PRN colestipol 1 g tab(s) (COLESTID) 1 g ORAL BID polyethylene glycol 3350 17 g packet 17 g ORAL DAILY PRN finasteride 5 mg tab(s) (PROSCAR) 5 mg ORAL DAILY tamsulosin 0.4 mg cap(s) (FLOMAX) 0.4 mg ORAL BID ondansetron orally disintegrating 4 mg tab(s) (ZOFRAN ODT) 4 mg ORAL q 6 H PRN Or ondansetron (PF) 4 mg injection (ZOFRAN) 4 mg INTRAVENOUS q 6 H PRN acetaminophen 650 mg tab(s) (TYLENOL) 650 mg ORAL q 6 H PRN aspirin, enteric coated 81 mg tab(s) 81 mg ORAL DAILY lisinopril 10 mg tab(s) (ZESTRIL) 10 mg ORAL DAILY And hydroCHLOROthiazide 12.5 mg tab(s) 12.5 mg ORAL DAILY vancomycin iv piggyback 1.5 g in D5W 300 mL (VANCOCIN) 1.5 g INTRAVENOUS q 24 HR Objective PHYSICAL EXAM: BP 100/54 Pulse 70 Temp (Src) 97.3 (Oral) Resp 18 Ht 5' 11 (1.80m) Wt 230 lb 2.6 oz (104.4kg) SpO2 98% BMI 32.12 kg/(m2). O2 Therapy: Room Air General: Patient is alert and is in no acute respiratory distress. Lungs: Clear to auscultation, no wheezing, rales, or rhonchi. Cardiac: S1-S2 within normal limits Abdomen: Soft, lower abdominal pressure, nondistended. Extremities: No cyanosis Neurologic: Cranial nerves from II-XII intact grossly. Psych normal affect. DATA: LABORATORY TESTS: CBC: Recent Labs 12/25/2443612/24/241918 WBC 7.85 8.56 HB 9.0* 9.7* PLT 201 202 MCV 105.6* 105.1* NEUTP -- 76.9 ABSNEUT -- 6.58 LYMPHP -- 9.2 EODINP -- 2.0 CHEM: Recent Labs 12/25/2443612/24/241918 NA 138 135* K 4.0 4.7 CA 8.8 9.1 MG 1.8 1.9 ANION 12 13 CHLOR 101 99 CO2 25 23 GLUC 94 98 BUN 16 20 CREAT 0.94 1.08 HEPATIC: Recent Labs 12/24/241918 ALT 14 AST 19 TBILI 0.2 ALKPHOS 87 ALB 3.9 TPROT 7.5 URINALYSIS: Recent Labs 12/24/241912 SPGR 1.025 UBACTERIA Many* LEUKEST 1+* UWBC >25 /HPF* URBC 6-10 /HPF* UHB 2+* UPROT 3+* UGLUC Negative UKET Negative COAG: No results for input(s): APTT, INR in the last 168 hours. CARDIAC: No results for input(s): CKMB, CKMBP, TROPT, PBNP in the last 168 hours. DATA: Diagnostic tests reviewed for today's visit: Most recent labs and imaging results. Most recent EKG Urine Culture: Positive Micro-30 Days No results found for the last 720 hours. Blood Culture: Positive Micro-30 Days No results found for the last 720 hours. Medication and Non-Pharmacologic VTE Prophylaxis/Anticoagulants Anticoagulant AND Antiplatelet Medications (From admission, onward) Start Dose Route Frequency Last Action Ordered Stop 12/25/24 0900 aspirin, enteric coated 81 mg tab(s) 81 mg PO DAILY Given, 12/25 0813 12/24/24 2238 -- 12/24/24 2245 activity - mobilize patient (ok,fl) VTE Prophylaxis: VTE prophylaxis appropriate Assesment: Acute UTI Generalized weakness debility and fall secondary to UTI BPH, prostate cancer status post radiation and TURP Hypertension Hyperlipidemia GERD Anemia Plan *Patient initiated emergency room he was started on IV Zosyn and vancomycin, before microbiology, ID was consulted. I will add Pyridium *DC Mahoney catheter, continue BPH medications *Blood work was reviewed HANDH low but stable *Continue chronic home medications monitor vital signs *Check CBC BMP magnesium for tomorrow *Constipation the patient and his [id number] at bedside Plan of care discussed with: Provider, RN, Patient. Disclaimer This dictation was created using voice recognition software. Phonetic and/or minor grammatical errors may exist. SIGNATURE: Allison Sun MD PATIENT NAME: Zachary Short [facility] 12-24-2024 Telephone encounter Note Patient is calling that he is having urinary burning and unable to urinate. Patient is drinking fluids. Patient stated that he also fell in his garage. Temp. 99.8. Patient is feeling weak. Patient had surgery on 11/28/24. Patient stated that he had blood in urine and blood clots yesterday but is clear up today after increasing his fluids. Informed patient that the recommendation would be for him to go to /[facility]. Mario Ugalde RN [facility] Work Phone: 12-24-2024 Miscellaneous Notes Patient is calling that he is having urinary burning and unable to urinate. Patient is drinking fluids. Patient stated that he also fell in his garage. Temp. 99.8. Patient is feeling weak. Patient had surgery on 11/28/24. Patient stated that he had blood in urine and blood clots yesterday but is clear up today after increasing his fluids. Informed patient that the recommendation would be for him to go to /[facility]. Mario Ugalde RN documented in this encounter [facility] 12-19-2024 History of Present illness Narrative Radiology Service Progress Note PATIENT NAME: Zachary Short DATE OF SERVICE: December 19, 2024 TIME: 3:52 PM PATIENT IDENTITY VERIFICATION COMPLETED USING TWO (2) IDENTIFIERS: Name and Date of confirmed by patient verbally. FALL SCREENING: Has the patient had 2 falls in the last year or 1 fall with injury or currently using an Ambulatory Assistive Device (Walker, Cane, Wheelchair, Crutches, etc.)? No PATIENT GENDER DATA: Assigned male at PATIENT RELEVANT IMPLANT DATA REVIEWED: Yes PATIENT PRESENTS WITH AN IMPLANTABLE OR ATTACHED EXTENSION WORK INSTRUCTOR: No RADIOLOGY DEPARTMENT: CT; Exam(s) Completed: Chest PERIPHERAL IV DATA: Not applicable SIGNED BY: RT Gwen(R) December 19, 2024 3:52 PM documented in this encounter [facility] 12-19-2024 Note HNO ID: [id number] Author: NITHYA ALDRIDGE RT(R) Service: ? Author Type: Insurance Inspector Type: Progress Notes Filed: 12/19/2024 15:52 Note Text: Radiology Service Progress Note PATIENT NAME: Zachary Short DATE OF SERVICE: December 19, 2024 TIME: 3:52 PM PATIENT IDENTITY VERIFICATION COMPLETED USING TWO (2) IDENTIFIERS: Name and Date of confirmed by patient verbally. FALL SCREENING: Has the patient had 2 falls in the last year or 1 fall with injury or currently using an Ambulatory Assistive Device (Walker, Cane, Wheelchair, Crutches, etc.)? No PATIENT GENDER DATA: Assigned male at PATIENT RELEVANT IMPLANT DATA REVIEWED: Yes PATIENT PRESENTS WITH AN IMPLANTABLE OR ATTACHED EXTENSION WORK INSTRUCTOR: No RADIOLOGY DEPARTMENT: CT; Exam(s) Completed: Chest PERIPHERAL IV DATA: Not applicable SIGNED BY: RT Gwen(Sri) December 19, 2024 3:52 PM [facility] 12-18-2024 Note HNO ID: [id number] Author: SOPHIA GARAY RN Service: ? Author Type: Registered Nurse Type: Progress Notes Filed: 12/18/2024 09:43 Note Text: CDM ESCALATION Provider Action / FYI: CARMELO Tabares, Paged Virtualist yesterday due to pt having BP of 97/58 accompanied by unsteady gait and feeling fuzzy when standing. Pt reports symptoms been ongoing. Virtualist advised to hold Lisinopril if SBP<110. Follow up with you 01/09. Thank you, Sophia Garay, RN Spoke with patient. He spoke with the Virtualist yesterday. BP this morning is 118/79 P 72. Pt was waiting to take his Lisinopril until he spoke with PCC. Per Virtualist notes, let pt know okay to take Lisinopril if SBP>110. Reviewed with pt to keep a log of BPs and when Lisinopril is held to bring to his follow up with Dr. Pierson. If symptoms persist or worsen before follow up on 01/09, pt should reach out to Dr. Pierson's office. Pt voiced understanding. Message received via: My eStore App[employer] escalation follow-up Patient escalated to Virtualist on: 12/18/24 Reason for escalation: low BP, lightheaded, unsteady when standing up Virtualist intervention: Hold BP medication if SBP<110, Log BP and times that med is held and discuss with PCP at next appt on 01/09, Discussed red flag symptoms Contact made with patient: Yes Patient identified by name and date of . Discussed care with patient Based on stitch bonding machine tender helper the following disposition is advised: No symptoms or symptoms present, not severe. Routed to: No Action Needed VINH Education Provided this Outreach: No Sophia Garay RN December 18, 2024 9:31 AM [facility] 12-18-2024 History of Present illness Narrative CDM ESCALATION Provider Action / FYI: CARMELO Tabares, Paged Virtualist yesterday due to pt having BP of 97/58 accompanied by unsteady gait and feeling fuzzy when standing. Pt reports symptoms been ongoing. Virtualist advised to hold Lisinopril if SBP<110. Follow up with you 01/09. Thank you, Sophia Garay, RN Spoke with patient. He spoke with the Virtualist yesterday. BP this morning is 118/79 P 72. Pt was waiting to take his Lisinopril until he spoke with PCC. Per Virtualist notes, let pt know okay to take Lisinopril if SBP>110. Reviewed with pt to keep a log of BPs and when Lisinopril is held to bring to his follow up with Dr. Pierson. If symptoms persist or worsen before follow up on 01/09, pt should reach out to Dr. Pierson's office. Pt voiced understanding. Message received via: My eStore App[employer] escalation follow-up Patient escalated to Virtualist on: 12/18/24 Reason for escalation: low BP, lightheaded, unsteady when standing up Virtualist intervention: Hold BP medication if SBP<110, Log BP and times that med is held and discuss with PCP at next appt on 01/09, Discussed red flag symptoms Contact made with patient: Yes Patient identified by name and date of . Discussed care with patient Based on stitch bonding machine tender helper the following disposition is advised: No symptoms or symptoms present, not severe. Routed to: No Action Needed VINH Education Provided this Outreach: No Sophia Garay RN December 18, 2024 9:31 AM documented in this encounter [facility] 12-18-2024 Telephone encounter Note Patient calling and had the Medicare Outpatient Observation notice. I called back and gave billing number to patient. Left message about billing # [phone]. [facility] 12-18-2024 Miscellaneous Notes Patient calling and had the Medicare Outpatient Observation notice. I called back and gave billing number to patient. Left message about billing # [phone]. documented in this encounter [facility] 12-18-2024 Note Patient Outreach (AM [facility] ZACHARY SHORT ([id number]) 1945 M Date Time Provider Department 12/18/24 SOPHIA GARAY [facility] During your visit today, we recorded the following information about you: Sophia Garay, LAY 12/18/2024 9:43 AM Signed CDM ESCALATION Provider Action / FYI: Dr. Pierson, HILTONI, Paged Virtualist yesterday due to pt having BP of 97/58 accompanied by unsteady gait and feeling fuzzy when standing. Pt reports symptoms been ongoing. Virtualist advised to hold Lisinopril if SBP<110. Follow up with you 01/09. Thank you, Sophia Garay RN Spoke with patient. He spoke with the Virtualist yesterday. BP this morning is 118/79 P 72. Pt was waiting to take his Lisinopril until he spoke with PCC. Per Virtualist notes, let pt know okay to take Lisinopril if SBP>110. Reviewed with pt to keep a log of BPs and when Lisinopril is held to bring to his follow up with Dr. Pierson. If symptoms persist or worsen before follow up on 01/09, pt should reach out to Dr. Pierson's office. Pt voiced understanding. Message received via: H@H escalation follow-up Patient escalated to Virtualist on: 12/18/24 Reason for escalation: low BP, lightheaded, unsteady when standing up Virtualist intervention: Hold BP medication if SBP<110, Log BP and times that med is held and discuss with PCP at next appt on 01/09, Discussed red flag symptoms Contact made with patient: Yes Patient identified by name and date of . Discussed care with patient Based on stitch bonding machine tender helper the following disposition is advised: No symptoms or symptoms present, not severe. Routed to: No Action Needed VINH Education Provided this Outreach: No Sophia Garay RN December 18, 2024 9:31 AM Allergies As of Date: 12/18/2024 Noted Allergy Reaction RAMELTEON 05/22/2024 1 - Mental Status Change Date Reviewed: 12/17/2024 Reviewed by: Nini Sheriff APRN.DIRECTOR OF COMPENSATION - Fully Assessed Prescriptions as of 12/18/2024 - finasteride (PROSCAR) 5 mg tablet Take 1 tablet by mouth once daily. - colestipol (COLESTID) 1 gram tablet Take 1 tablet by mouth two times a day. - citalopram (CELEXA) 20 mg tablet Take 1 tablet by mouth once daily. - tamsulosin (FLOMAX) 0.4 mg Take 1 capsule by mouth two times a day. - oxyCODONE-acetaminophen 5-325 mg (PERCOCET) Take 1-2 tablets by mouth every 4 hours as needed (for pain). - azelastine 0.1% nasal spray Use 1 [place] in each nostril two times a day. - lisinopril-hydroCHLOROthiazide (ZESTORETIC) 10-12.5 mg per tablet Take 1 tablet by mouth once daily. - ergocalciferol 50,000 unit capsule (VITAMIN D2, DRISDOL) Take 1 capsule by mouth two times a week. TO BE TAKEN ORALLY DIRECTED. Take 1 tablet by mouth twice weekly [id number], then decrease to 1 tablet weekly. - naproxen (NAPROSYN) 500 mg tablet Take 1 tablet by mouth two times a day as needed (for pain/inflammation). Take with food. - polyethylene glycol 3350 (MIRALAX) 17 gram/dose powder Take 17 g by mouth once daily. Dissolve dose in 4 - 8 ounces of liquid and take as directed. - aspirin, enteric coated (ASPIRIN, ENTERIC COATED) 81 mg EC tablet Take 1 tablet by mouth once daily. Problem List As Of Date 12/18/2024 Noted Resolved Mixed hyperlipidemia [E78.2] 11/09/2005 Unspecified Asthma [J45.909] 11/09/2005 Personal history of other malignant neoplasm of*03/31/2006 Cervical Spondylosis without Myelopathy [M47.81* Family History of Malignant Neoplasm of Gastroi*05/16/2008 Primary Localized Osteoarthrosis, Shoulder Quin*05/16/2008 ACTINIC KERATOSIS (Premalignant AK) [L57.0] 05/17/2008 Other Seborrheic Keratosis [L82.1] 05/17/2008 09/15/2009 ACTINIC DAMAGE///CHR SOLAR SKIN DAMAGE NOS [L57*05/17/2008 09/15/2009 Rosacea [L71.9] 05/17/2008 Primary hypertension [I10] 09/15/2009 Obesity [E66.9] 09/15/2009 Irritated//Inflamed Seborrheic Keratosis [L82.0]09/23/2009 Solar lentigo [L81.4] 09/23/2009 Bladder Neck Obstruction [N32.0] 10/30/2009 Hypertrophy of prostate with urinary obstructio*05/28/2010 Arthritis of shoulder region, left, degenerativ*08/03/2011 Benign neoplasm of rectum and anal canal [D12.8*08/23/2011 Pain in joint, shoulder region [M25.519] 10/21/2011 Chronic knee pain [M25.569, G89.29] 02/28/2017 Preop examination [Z01.818] 11/21/2023 Elevated prostate specific antigen (PSA) [R97.2*11/21/2023 11/29/2023 Obesity, Class I, BMI 30-34.9 [E66.811] 11/21/2023 Prostate cancer (HCC) [C61] 11/29/2023 BPH with obstruction/lower urinary tract sympto*11/28/2024 Hypotension [I95.9] 12/17/2024 Lightheaded [R42] 12/17/2024 Encounter Status:Closed by SOPHIA GARAY on 12/18/24 [facility] 12-17-2024 Note HNO ID: [id number] Author: NINI SHERIFF APRN.DIRECTOR OF COMPENSATION Service: ? Author Type: Nurse Practitioner Type: Progress Notes Filed: 12/17/2024 16:20 Note Text: Virtualist [facility] Note I have communicated my name and active licensure. The patient's identity and physical location were verified at the time of this visit. Either the patient or their legal product support representative has been informed of the risks and benefits of -- and alternatives to -- treatment through a remote evaluation and consents to proceed with the evaluation remotely. Subjective/Objective: Hx HTN, prostate cancer Reporting low BP-today SBP 97 and then 110 later in day Has lightheadedness or brain fog, that has been going on for a while per patient Takes Zestoretic for BP Denies Shortness of Breath, CP, dizziness Past medical history, past surgical history, family history and social history reviewed and updated as indicated in EMR. REVIEW OF SYSTEMS: Review of Systems VITAL SIGNS: (if available) There were no vitals taken for this visit. Physical Exam (if video visit was performed) Physical Exam Triage source: Transitional Care Management (TCM): Disposition: Patient remains at home and Meds adjusted and / or prescribed Assessment/Plan: ASSESSMENT/PLAN: 1. Hypotension, unspecified hypotension type - ICD9: 458.9, ICD10: I95.9 (primary diagnosis) 2. Lightheaded - ICD9: 780.4, ICD10: R42 -Hold BP medication for SBP<110 -Log BP and times that med is held and discuss with PCP at next appt on 01/09 -Discussed red flag symptoms Medical Decision Making: Problems: Low: Acute, uncomplicated illness or injury Data: Unique source(s) for external note(s) reviewed: 2 Unique test result(s) reviewed: 2 Risk: Low: Low risk from testing/treatment Medical Decision Making Level: 3 - Low A total of 20 minutes was spent providing medical care using telemedicine. Mode of contact: Audio Only Visit Signed in as Primary Virtualist, Secondary Virtualist, or [facility] Telehealth provider: Primary SIGNATURE: Nini Islas APRN.CNP PATIENT NAME: Zachary Short DATE: December 17, 2024 [facility] 12-17-2024 History of Present illness Narrative Virtualist [facility] Note I have communicated my name and active licensure. The patient's identity and physical location were verified at the time of this visit. Either the patient or their legal product support representative has been informed of the risks and benefits of -- and alternatives to -- treatment through a remote evaluation and consents to proceed with the evaluation remotely. Subjective/Objective: Hx HTN, prostate cancer Reporting low BP-today SBP 97 and then 110 later in day Has lightheadedness or brain fog, that has been going on for a while per patient Takes Zestoretic for BP Denies Shortness of Breath, CP, dizziness Past medical history, past surgical history, family history and social history reviewed and updated as indicated in EMR. REVIEW OF SYSTEMS: Review of Systems VITAL SIGNS: (if available) There were no vitals taken for this visit. Physical Exam (if video visit was performed) Physical Exam Triage source: Transitional Care Management (TCM): Disposition: Patient remains at home and Meds adjusted and / or prescribed Assessment/Plan: ASSESSMENT/PLAN: 1. Hypotension, unspecified hypotension type - ICD9: 458.9, ICD10: I95.9 (primary diagnosis) 2. Lightheaded - ICD9: 780.4, ICD10: R42 -Hold BP medication for SBP<110 -Log BP and times that med is held and discuss with PCP at next appt on 01/09 -Discussed red flag symptoms Medical Decision Making: Problems: Low: Acute, uncomplicated illness or injury Data: Unique source(s) for external note(s) reviewed: 2 Unique test result(s) reviewed: 2 Risk: Low: Low risk from testing/treatment Medical Decision Making Level: 3 - Low A total of 20 minutes was spent providing medical care using telemedicine. Mode of contact: Audio Only Visit Signed in as Primary Virtualist, Secondary Virtualist, or [facility] Telehealth provider: Primary SIGNATURE: Nini Islas APRN.CNP PATIENT NAME: Zachary Short DATE: December 17, 2024 documented in this encounter [facility] 12-17-2024 Note HNO ID: [id number] Author: SOPHIA GARAY RN Service: ? Author Type: Registered Nurse Type: Progress Notes Filed: 12/17/2024 15:13 Note Text: Transitional Care Management (TCM) Follow-Up Note PCP Update / Actionable Items Virtualist Name of Virtualist: Nini Islas Time paged: 3:12 pm Preferred contact number: [phone] Patient escalation symptom(s)/nursing assessment: low BP, lightheadedness, unsteady when standing up Patient Source: In-Network Discharge Follow-up outreach: TCM enrolled patient Outreach Summary: Spoke with patient. He saw Dr. Pierson on 12/11. She wants him to monitor his BP and call if dizzy, lightheaded or short of breath. He had lbs drawn, waiting for results. Has CT scan scheduled Tuesday. Pt states that he has been feelng fuzzy and unsteady always when he stands up. Last time it happened was this morning. Symptoms will last a few minutes. BP today is 97/58 HR 76. Will page Virtualist regarding symptoms. Pt thanked PCC. Contact: Contact made with patient: Yes Spoke to: Patient Validation: Validated the person spoken to is actively involved in the patient's care. The patient was identified by Name and Date of . I'd like to get an update on how you're doing since our last phone call. Is now a good time to talk? Yes Symptoms: Are you feeling about the same, better or worse since leaving the hospital? Worse Patient [place] [phone] and indicate 'TCM patient', MRN, Patient Name, Patient Concern, and patient's preferred method of contact (telephone, FaceTime, Google Duo), your name, your contact number. Informed patient that you recommend further assessment from a provider to review symptoms. I have sent a page for the provider to contact you today. If you haven't heard from that provider and still have concerns, please contact you PCP's office right away. Indicated TCM patient and symptoms in the Vituralist section and sent alpha page to Virtualist to to contact the patient. Route chart to Virtualist carrying the pager. Targets addressed / completed during outreach: Contact patient within two (2) business days Patient has TCM appointment with PC within 14 days Outreach Outcome: Escalation to Virtualist Care Management partners utilized: Virtualist Time Stamp: 12/17/2024 3:11 PM CLOSE Pagers Name Pager Type Status Primary Virtualist Pager Alpha Sent Sophia Garay RN December 17, 2024 2:56 PM [facility] 12-17-2024 History of Present illness Narrative Images from the original note were not included. Transitional Care Management (TCM) Follow-Up Note PCP Update / Actionable Items Virtualist Name of Virtualist: Nini Farley Urban Time paged: 3:12 pm Preferred contact number: [phone] Patient escalation symptom(s)/nursing assessment: low BP, lightheadedness, unsteady when standing up Patient Source: In-Network Discharge Follow-up outreach: TCM enrolled patient Outreach Summary: Spoke with patient. He saw Dr. Pierson on 12/11. She wants him to monitor his BP and call if dizzy, lightheaded or short of breath. He had lbs drawn, waiting for results. Has CT scan scheduled Tuesday. Pt states that he has been feelng fuzzy and unsteady always when he stands up. Last time it happened was this morning. Symptoms will last a few minutes. BP today is 97/58 HR 76. Will page Virtualist regarding symptoms. Pt thanked PCC. Contact: Contact made with patient: Yes Spoke to: Patient Validation: Validated the person spoken to is actively involved in the patient's care. The patient was identified by Name and Date of . I'd like to get an update on how you're doing since our last phone call. Is now a good time to talk? Yes Symptoms: Are you feeling about the same, better or worse since leaving the hospital? Worse Patient indicated symptoms are worse -Page Virtualist at and indicate 'TCM patient', MRN, Patient Name, Patient Concern, and patient's preferred method of contact (telephone, [employer], [employer]), your name, your contact number. Informed patient that you recommend further assessment from a provider to review symptoms. I have sent a page for the provider to contact you today. If you haven't heard from that provider and still have concerns, please contact you PCP's office right away. Indicated TCM patient and symptoms in the Vituralist section and sent alpha page to Virtualist to to contact the patient. Route chart to Virtualist carrying the pager. Targets addressed / completed during outreach: Contact patient within two (2) business days Patient has TCM appointment with PC within 14 days Outreach Outcome: Escalation to Virtualist Care Management partners utilized: Virtualist Time Stamp: 12/17/2024 3:11 PM CLOSE Pagers Name Pager Type Status Primary Virtualist Pager Alpha Sent Sophia Garay RN December 17, 2024 2:56 PM documented in this encounter [facility] 12-17-2024 Note Patient Outreach (AM [facility]) ZACHARY SHORT ([id number]) 1945 M Date Time Provider Department 12/17/24 SOPHIA GARAY [facility] During your visit today, we recorded the following information about you: Sophia Garay RN 12/17/2024 3:13 PM Signed Transitional Care Management (TCM) Follow-Up Note PCP Update / Actionable Items Virtualist Name of Virtualist: Nini Farley Urban Time paged: 3:12 pm Preferred contact number: [phone] Patient escalation symptom(s)/nursing assessment: low BP, lightheadedness, unsteady when standing up Patient Source: In-Network Discharge Follow-up outreach: TCM enrolled patient Outreach Summary: Spoke with patient. He saw DrTashi Donavoncharlene on 12/11. She wants him to monitor his BP and call if dizzy, lightheaded or short of breath. He had lbs drawn, waiting for results. Has CT scan scheduled Tuesday. Pt states that he has been feelng fuzzy and unsteady always when he stands up. Last time it happened was this morning. Symptoms will last a few minutes. BP today is 97/58 HR 76. Will page Virtualist regarding symptoms. Pt thanked PCC. Contact: Contact made with patient: Yes Spoke to: Patient Validation: Validated the person spoken to is actively involved in the patient's care. The patient was identified by Name and Date of . I'd like to get an update on how you're doing since our last phone call. Is now a good time to talk? Yes Symptoms: Are you feeling about the same, better or worse since leaving the hospital? Worse Patient indicated symptoms are worse -Page Virtualist at and indicate 'TCM patient', MRN, Patient Name, Patient Concern, and patient's preferred method of contact (telephone, [employer], [employer]), your name, your contact number. Informed patient that you recommend further assessment from a provider to review symptoms. I have sent a page for the provider to contact you today. If you haven't heard from that provider and still have concerns, please contact you PCP's office right away. Indicated TCM patient and symptoms in the Vituralist section and sent alpha page to Virtualist to to contact the patient. Route chart to Virtualist carrying the pager. Targets addressed / completed during outreach: Contact patient within two (2) business days Patient has TCM appointment with PC within 14 days Outreach Outcome: Escalation to Virtualist Care Management partners utilized: Virtualist Time Stamp: 12/17/2024 3:11 PM CLOSE Pagers Name Pager Type Status Primary Virtualist Pager Alpha Sent Sophia Garay RN December 17, 2024 2:56 PM Allergies As of Date: 12/17/2024 Noted Allergy Reaction RAMELTEON 05/22/2024 1 - Mental Status Change Date Reviewed: 12/11/2024 Reviewed by: Ladonna Mcnair MA - Fully Assessed Prescriptions as of 12/17/2024 - finasteride (PROSCAR) 5 mg tablet Take 1 tablet by mouth once daily. - colestipol (COLESTID) 1 gram tablet Take 1 tablet by mouth two times a day. - citalopram (CELEXA) 20 mg tablet Take 1 tablet by mouth once daily. - tamsulosin (FLOMAX) 0.4 mg Take 1 capsule by mouth two times a day. - oxyCODONE-acetaminophen 5-325 mg (PERCOCET) Take 1-2 tablets by mouth every 4 hours as needed (for pain). - azelastine 0.1% nasal spray Use 1 [place] in each nostril two times a day. - lisinopril-hydroCHLOROthiazide (ZESTORETIC) 10-12.5 mg per tablet Take 1 tablet by mouth once daily. - ergocalciferol 50,000 unit capsule (VITAMIN D2, DRISDOL) Take 1 capsule by mouth two times a week. TO BE TAKEN ORALLY DIRECTED. Take 1 tablet by mouth twice weekly [id number], then decrease to 1 tablet weekly. - naproxen (NAPROSYN) 500 mg tablet Take 1 tablet by mouth two times a day as needed (for pain/inflammation). Take with food. - polyethylene glycol 3350 (MIRALAX) 17 gram/dose powder Take 17 g by mouth once daily. Dissolve dose in 4 - 8 ounces of liquid and take as directed. - aspirin, enteric coated (ASPIRIN, ENTERIC COATED) 81 mg EC tablet Take 1 tablet by mouth once daily. Problem List As Of Date 12/17/2024 Noted Resolved Mixed hyperlipidemia [E78.2] 11/09/2005 Unspecified Asthma [J45.909] 11/09/2005 Personal history of other malignant neoplasm of*03/31/2006 Cervical Spondylosis without Myelopathy [M47.81* Family History of Malignant Neoplasm of Gastroi*05/16/2008 Primary Localized Osteoarthrosis, Shoulder Quin*05/16/2008 ACTINIC KERATOSIS (Premalignant AK) [L57.0] 05/17/2008 Other Seborrheic Keratosis [L82.1] 05/17/2008 09/15/2009 ACTINIC DAMAGE///CHR SOLAR SKIN DAMAGE NOS [L57*05/17/2008 09/15/2009 Rosacea [L71.9] 05/17/2008 Primary hypertension [I10] 09/15/2009 Obesity [E66.9] 09/15/2009 Irritated//Inflamed Seborrheic Keratosis [L82.0]09/23/2009 Solar lentigo [L81.4] 09/23/2009 Bladder Neck Obstruction [N32.0] 10/30/2009 Hypertrophy of prostate with urinary (more content not included)... [facility] 12-11-2024 Note HNO ID: [id number] Author: AILIN PIERSON MD Service: ? Author Type: Physician Type: Progress Notes Filed: 12/11/2024 17:08 Note Text: Reason for Visit Follow up HPI Zachary Short is a 79-year-old male with a history of prostate cancer and aortic dilation, presenting for follow-up after recent prostate surgery and cardiac complications. Zachary recently underwent prostate surgery performed by Dr. Pierson, during which he experienced cardiac complications. He reports that his heart rate was irregular, jumping up and down, leading to an extended recovery time of 3-4 hours and close monitoring by the anesthesiologist and other physicians. Zachary was informed that his heart rate dropped to 52 bpm at one point, causing concern among the medical team. He was given medication to stabilize his heart rate, which eventually allowed him to be moved to a regular room. Since the surgery, he has noticed fluctuations in his heart rate and blood pressure, with a recent reading of 117/68 mmHg and a heart rate of 56 bpm this morning, which later increased to 70-80 bpm. Prior to the surgery, Zachary was scheduled for an echocardiogram but canceled it based on information that it would be performed during his pre-hospital exam. However, the echocardiogram was not conducted as expected, leading to delays and confusion. Eventually, his urologist, Dr. Ruelas, facilitated the echocardiogram, which revealed aortic dilation with a maximal dimension of 4.1 cm. Zachary is seeking clarification on the implications of this finding and its potential impact on his irregular heart rate. Post-surgery, Zachary experienced significant bleeding for 8 days, with a particularly severe episode on the 8th day, which he describes as extremely thick and red. He reports that the bleeding caused a blockage in his urinary flow, which he managed to clear by applying pressure. A second similar episode occurred but has since resolved. He is now able to urinate without a catheter, although he wakes up every 2.5-3 hours at night to urinate to prevent leakage. He expresses satisfaction with his current urinary function and notes an improvement in his overall condition, including increased energy levels, as evidenced by his ability to mow the lawn recently. Zachary also mentions a significant reduction in his PSA levels to approximately 0.2 ng/mL following radiation therapy, although he has not had a recent PSA test. He is awaiting further information from Dr. Huffman regarding his cancer status. He recalls a previous hospitalization in April for sepsis, which he reportedly contracted twice. He was recently treated for an infection with the same medication used for sepsis, raising concerns about a possible recurrence. Social History Tobacco Use Smoking status: Never Passive exposure: Never Smokeless tobacco: Never Vaping Use Vaping status: Never Used Substance Use Topics Alcohol use: Yes Comment: socially, 3-4 beers/year Drug use: No Past medical history, appointments, medications, allergies reviewed. Pertinent Lab/Diagnostic Studies are reviewed and discussed today Current Outpatient Medications: finasteride (PROSCAR) 5 mg tablet colestipol (COLESTID) 1 gram tablet citalopram (CELEXA) 20 mg tablet tamsulosin (FLOMAX) 0.4 mg oxyCODONE-acetaminophen 5-325 mg (PERCOCET) azelastine 0.1% nasal spray lisinopril-hydroCHLOROthiazide (ZESTORETIC) 10-12.5 mg per tablet ergocalciferol 50,000 unit capsule (VITAMIN D2, DRISDOL) naproxen (NAPROSYN) 500 mg tablet polyethylene glycol 3350 (MIRALAX) 17 gram/dose powder aspirin, enteric coated (ASPIRIN, ENTERIC COATED) 81 mg EC tablet Health Maintenance Depression Screening Anxiety Screening DTaP,Tdap,Td Vaccine(1 - Tdap) Shingrix Vaccine(1 of 2) Medicare Annual Wellness Visit RSV Vaccine(1 - 1-dose 75+ series) Advance Directive Discussion@ Review Of Systems Genitourinary: (+) nocturia, (+) urinary frequency, (+) urinary incontinence Physical Exam BP 98/57 Pulse 81 Resp 16 Wt 108.2 kg (238 lb 9.6 oz) SpO2 95% BMI 32.36 kg/m? GENERAL: NAD, alert and oriented. SKIN: Unremarkable, no rash or skin lesions. HEAD: Normocephalic. EYES: PERRLA, EOMI, conjunctiva clear. NECK: Supple, no lymphadenopathy, normal thyroid, no carotid bruits. LUNGS: Clear to auscultation bilaterally, no wheezes/rhonchi/rales. HEART: Regular rate and rhythm, no murmurs. No ectopy. EXTREMITIES: Normal, no deformities, no skin discoloration, no edema. NEURO: Awake, alert and oriented x3, cranial nerves II-XII grossly intact, normal gait, no involuntary motions. Labs: - PSA: 0.2 Tests: - Prostate Tissue Pathology: No malignant cells identified, benign prostatic hyperplasia Imaging: - Echocardiogram: Aorta dilated to 4.1 cm, no obstruction noted Assessment and Plan 1. Hospital discharge follow-up (Z09) S/P TURP (Z90.79) Benign prostatic hyperplasia without lower ur (more content not included)... [facility] 12-11-2024 History of Present illness Narrative Reason for Visit Follow up HPI Zachary Short is a 79-year-old male with a history of prostate cancer and aortic dilation, presenting for follow-up after recent prostate surgery and cardiac complications. Zachary recently underwent prostate surgery performed by Dr. Pierson, during which he experienced cardiac complications. He reports that his heart rate was irregular, jumping up and down, leading to an extended recovery time of 3-4 hours and close monitoring by the anesthesiologist and other physicians. Zachary was informed that his heart rate dropped to 52 bpm at one point, causing concern among the medical team. He was given medication to stabilize his heart rate, which eventually allowed him to be moved to a regular room. Since the surgery, he has noticed fluctuations in his heart rate and blood pressure, with a recent reading of 117/68 mmHg and a heart rate of 56 bpm this morning, which later increased to 70-80 bpm. Prior to the surgery, Zachary was scheduled for an echocardiogram but canceled it based on information that it would be performed during his pre-hospital exam. However, the echocardiogram was not conducted as expected, leading to delays and confusion. Eventually, his urologist, Dr. Ruelas, facilitated the echocardiogram, which revealed aortic dilation with a maximal dimension of 4.1 cm. Zachary is seeking clarification on the implications of this finding and its potential impact on his irregular heart rate. Post-surgery, Zachary experienced significant bleeding for 8 days, with a particularly severe episode on the 8th day, which he describes as extremely thick and red. He reports that the bleeding caused a blockage in his urinary flow, which he managed to clear by applying pressure. A second similar episode occurred but has since resolved. He is now able to urinate without a catheter, although he wakes up every 2.5-3 hours at night to urinate to prevent leakage. He expresses satisfaction with his current urinary function and notes an improvement in his overall condition, including increased energy levels, as evidenced by his ability to mow the lawn recently. Zachary also mentions a significant reduction in his PSA levels to approximately 0.2 ng/mL following radiation therapy, although he has not had a recent PSA test. He is awaiting further information from Dr. Huffman regarding his cancer status. He recalls a previous hospitalization in April for sepsis, which he reportedly contracted twice. He was recently treated for an infection with the same medication used for sepsis, raising concerns about a possible recurrence. Social History Tobacco Use Smoking status: Never Passive exposure: Never Smokeless tobacco: Never Vaping Use Vaping status: Never Used Substance Use Topics Alcohol use: Yes Comment: socially, 3-4 beers/year Drug use: No Past medical history, appointments, medications, allergies reviewed. Pertinent Lab/Diagnostic Studies are reviewed and discussed today Current Outpatient Medications: finasteride (PROSCAR) 5 mg tablet colestipol (COLESTID) 1 gram tablet citalopram (CELEXA) 20 mg tablet tamsulosin (FLOMAX) 0.4 mg oxyCODONE-acetaminophen 5-325 mg (PERCOCET) azelastine 0.1% nasal spray lisinopril-hydroCHLOROthiazide (ZESTORETIC) 10-12.5 mg per tablet ergocalciferol 50,000 unit capsule (VITAMIN D2, DRISDOL) naproxen (NAPROSYN) 500 mg tablet polyethylene glycol 3350 (MIRALAX) 17 gram/dose powder aspirin, enteric coated (ASPIRIN, ENTERIC COATED) 81 mg EC tablet Health Maintenance Depression Screening Anxiety Screening DTaP,Tdap,Td Vaccine(1 - Tdap) Shingrix Vaccine(1 of 2) Medicare Annual Wellness Visit RSV Vaccine(1 - 1-dose 75+ series) Advance Directive Discussion@ Review Of Systems Genitourinary: (+) nocturia, (+) urinary frequency, (+) urinary incontinence Physical Exam BP 98/57 Pulse 81 Resp 16 Wt 108.2 kg (238 lb 9.6 oz) SpO2 95% BMI 32.36 kg/m GENERAL: NAD, alert and oriented. SKIN: Unremarkable, no rash or skin lesions. HEAD: Normocephalic. EYES: PERRLA, EOMI, conjunctiva clear. NECK: Supple, no lymphadenopathy, normal thyroid, no carotid bruits. LUNGS: Clear to auscultation bilaterally, no wheezes/rhonchi/rales. HEART: Regular rate and rhythm, no murmurs. No ectopy. EXTREMITIES: Normal, no deformities, no skin discoloration, no edema. NEURO: Awake, alert and oriented x3, cranial nerves II-XII grossly intact, normal gait, no involuntary motions. Labs: - PSA: 0.2 Tests: - Prostate Tissue Pathology: No malignant cells identified, benign prostatic hyperplasia Imaging: - Echocardiogram: Aorta dilated to 4.1 cm, no obstruction noted Assessment and Plan 1. Hospital discharge follow-up (Z09) S/P TURP (Z90.79) Benign prostatic hyperplasia without lower urinary tract symptoms (N40.0) Patient recently underwent TURP with no malignancy found in the prostate fragments; pathology report indicated benign prostatic hyperplasia. Post-operative urinary function has significantly improved, with no current catheterization required. Initial post-operative period complicated by hematuria and urinary retention due to blood clots, which have since resolved. Patient is now able to void effectively and reports improved quality of life. - Continue monitoring urinary function. - Advised patient to avoid heavy lifting and strenuous activities to prevent recurrence of hematuria. - Follow-up appointment scheduled in 3 months to reassess urinary function and overall recovery. 2. 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 Recent echocardiogram confirmed the finding. No evidence of obstruction noted. Patient experienced intraoperative cardiac irregularities during TURP, requiring extended monitoring and intervention in the recovery room. Current vital signs show variability in blood pressure and heart rate, with recent readings of BP 117/68 mmHg and HR 56-80 bpm. - Ordered CT scan of the chest to further evaluate the extent and location of aortic dilatation; no contrast required. - Referred patient to community service specialist for ongoing monitoring and management. - Educated patient on the nature of aortic dilatation, emphasizing that intervention is typically not required until the diameter reaches 5 cm. - Advised patient to monitor blood pressure regularly and report any significant changes or symptoms such as chest pain or shortness of breath. - Follow-up appointment scheduled in [address] scan results and discuss further management. Voice recognition software was used to compose this office note. Please excuse any unintended typographical errors. Recording using [employer] software for draft documentation of the visit was discussed with the patient/authorized product support representative; all questions welcomed and answered. Patient/authorized product support representative agreed to proceed Ailin Pierson MD documented in this encounter [facility] 12-11-2024 Instructions Ailin Pierson MD - 12/11/2024 12:40 PM EDT We discussed your prostate health and recent surgery: - The pathology report from your prostate surgery showed no cancer in the fragments removed. The findings were benign, consistent with prostatic hyperplasia. - You no longer require a catheter and are urinating well. This is a significant improvement, and I m glad to hear you are feeling better. - You experienced some bleeding after the procedure, which resolved after passing clots. You are now urinating without issues and able to control your bladder. Continue monitoring for any changes, and let us know if you experience new symptoms such as difficulty urinating or significant bleeding. 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 This is being monitored, as intervention is typically not required unless it reaches 5 cm. - I have ordered a CT scan of your chest (no contrast) to get a clearer picture of the aorta and its dilation. Please schedule and complete this test within the next month. - After the CT scan, you may need to follow up with a community service specialist for further evaluation. For now, this condition is not expected to cause you significant problems. - Your blood pressure and heart rate have been fluctuating. Please continue monitoring these at home and let us know if you experience symptoms such as dizziness, chest pain, or shortness of breath. We discussed your cancer treatment: - Your last PSA test after radiation therapy showed a significant decrease to 0.2, which is a positive sign. No further PSA tests have been done since then. Dr. Huffman is expected to follow up with you later this month to discuss your progress. We discussed your follow-up care: - Please complete the blood work I ordered at your convenience this month. - Keep your scheduled appointment in December. - I will see you back in 3 months to review your progress and any new test results. Please continue to avoid heavy lifting, using a weed eater, or prolonged use of a experience designer to prevent strain. Let us know if you have any new or worsening symptoms. documented in this encounter [facility] 12-10-2024 Note HNO ID: [id number] Author: SOPHIA GARAY RN Service: ? Author Type: Registered Nurse Type: Progress Notes Filed: 12/10/2024 15:26 Note Text: Transitional Care Management (TCM) Follow-Up Note PCP Update / Actionable Items Patient Source: In-Network Discharge Follow-up outreach: TCM enrolled patient Outreach Summary: urinating every 2 hours, no blood in the urine. He is having formed BMs. No pain. Pt's BP has been around 100/60, HR has been around 55-65. No dizziness or lightheadedness. He is drinking lots of water. No medication concerns. Follow up with PCP tomorrow. Pt thanked PCC. Contact: Contact made with patient: Yes Spoke to: Patient Validation: Validated the person spoken to is actively involved in the patient's care. The patient was identified by Name and Date of . I'd like to get an update on how you're doing since our last phone call. Is now a good time to talk? Yes Symptoms: Are you feeling about the same, better or worse since leaving the hospital? Better Weekly Outreach: 1st Outreach Medications: Do you have any questions about taking your medications, including which medications you should be on, or do you need refills on your medications? No Patient Questions / Concerns: Do you have any questions related to your discharge? No Appointment / TCM Follow-Up: Have you had a follow-up visit with your Primary Care Provider or Specialist since you were discharged? No Do you need any assistance with scheduling or changing your follow-up appointments? Patient already has an appointment scheduled EDUCATION: Patient and family educated on issues/questions related to reason for admission, transition of care topics, and follow-up needed upon discharge. Sophia Garay RN December 10, 2024 3:17 PM [facility] 12-10-2024 History of Present illness Narrative Transitional Care Management (TCM) Follow-Up Note PCP Update / Actionable Items Patient Source: In-Network Discharge Follow-up outreach: TCM enrolled patient Outreach Summary: urinating every 2 hours, no blood in the urine. He is having formed BMs. No pain. Pt's BP has been around 100/60, HR has been around 55-65. No dizziness or lightheadedness. He is drinking lots of water. No medication concerns. Follow up with PCP tomorrow. Pt thanked PCC. Contact: Contact made with patient: Yes Spoke to: Patient Validation: Validated the person spoken to is actively involved in the patient's care. The patient was identified by Name and Date of . I'd like to get an update on how you're doing since our last phone call. Is now a good time to talk? Yes Symptoms: Are you feeling about the same, better or worse since leaving the hospital? Better Weekly Outreach: 1st Outreach Medications: Do you have any questions about taking your medications, including which medications you should be on, or do you need refills on your medications? No Patient Questions / Concerns: Do you have any questions related to your discharge? No Appointment / TCM Follow-Up: Have you had a follow-up visit with your Primary Care Provider or Specialist since you were discharged? No Do you need any assistance with scheduling or changing your follow-up appointments? Patient already has an appointment scheduled EDUCATION: Patient and family educated on issues/questions related to reason for admission, transition of care topics, and follow-up needed upon discharge. Sophia Garay RN December 10, 2024 3:17 PM documented in this encounter [facility] 12-10-2024 Note Patient Outreach ([facility] [place] ZACHARY SHORT ([id number]) 1945 M Date Time Provider Department 12/10/24 SOPHIA GARAY During your visit today, we recorded the following information about you: Sophia Garay RN 12/10/2024 3:26 PM Signed Transitional Care Management (TCM) Follow-Up Note PCP Update / Actionable Items Patient Source: In-Network Discharge Follow-up outreach: TCM enrolled patient Outreach Summary: urinating every 2 hours, no blood in the urine. He is having formed BMs. No pain. Pt's BP has been around 100/60, HR has been around 55-65. No dizziness or lightheadedness. He is drinking lots of water. No medication concerns. Follow up with PCP tomorrow. Pt thanked PCC. Contact: Contact made with patient: Yes Spoke to: Patient Validation: Validated the person spoken to is actively involved in the patient's care. The patient was identified by Name and Date of . I'd like to get an update on how you're doing since our last phone call. Is now a good time to talk? Yes Symptoms: Are you feeling about the same, better or worse since leaving the hospital? Better Weekly Outreach: 1st Outreach Medications: Do you have any questions about taking your medications, including which medications you should be on, or do you need refills on your medications? No Patient Questions / Concerns: Do you have any questions related to your discharge? No Appointment / TCM Follow-Up: Have you had a follow-up visit with your Primary Care Provider or Specialist since you were discharged? No Do you need any assistance with scheduling or changing your follow-up appointments? Patient already has an appointment scheduled EDUCATION: Patient and family educated on issues/questions related to reason for admission, transition of care topics, and follow-up needed upon discharge. Spohia Garay RN December 10, 2024 3:17 PM Allergies As of Date: 12/10/2024 Noted Allergy Reaction RAMELTEON 05/22/2024 1 - Mental Status Change Date Reviewed: 11/28/2024 Reviewed by: Mikala Miranda RN - Fully Assessed Prescriptions as of 12/10/2024 - finasteride (PROSCAR) 5 mg tablet Take 1 tablet by mouth once daily. - colestipol (COLESTID) 1 gram tablet Take 1 tablet by mouth two times a day. - citalopram (CELEXA) 20 mg tablet Take 1 tablet by mouth once daily. - tamsulosin (FLOMAX) 0.4 mg Take 1 capsule by mouth two times a day. - oxyCODONE-acetaminophen 5-325 mg (PERCOCET) Take 1-2 tablets by mouth every 4 hours as needed (for pain). - azelastine 0.1% nasal spray Use 1 [place] in each nostril two times a day. - lisinopril-hydroCHLOROthiazide (ZESTORETIC) 10-12.5 mg per tablet Take 1 tablet by mouth once daily. - ergocalciferol 50,000 unit capsule (VITAMIN D2, DRISDOL) Take 1 capsule by mouth two times a week. TO BE TAKEN ORALLY DIRECTED. Take 1 tablet by mouth twice weekly [id number], then decrease to 1 tablet weekly. - naproxen (NAPROSYN) 500 mg tablet Take 1 tablet by mouth two times a day as needed (for pain/inflammation). Take with food. - polyethylene glycol 3350 (MIRALAX) 17 gram/dose powder Take 17 g by mouth once daily. Dissolve dose in 4 - 8 ounces of liquid and take as directed. - aspirin, enteric coated (ASPIRIN, ENTERIC COATED) 81 mg EC tablet Take 1 tablet by mouth once daily. Problem List As Of Date 12/10/2024 Noted Resolved Mixed hyperlipidemia [E78.2] 11/09/2005 Unspecified Asthma [J45.909] 11/09/2005 Personal history of other malignant neoplasm of*03/31/2006 Cervical Spondylosis without Myelopathy [M47.81* Family History of Malignant Neoplasm of Gastroi*05/16/2008 Primary Localized Osteoarthrosis, Shoulder Quin*05/16/2008 ACTINIC KERATOSIS (Premalignant AK) [L57.0] 05/17/2008 Other Seborrheic Keratosis [L82.1] 05/17/2008 09/15/2009 ACTINIC DAMAGE///CHR SOLAR SKIN DAMAGE NOS [L57*05/17/2008 09/15/2009 Rosacea [L71.9] 05/17/2008 Primary hypertension [I10] 09/15/2009 Obesity [E66.9] 09/15/2009 Irritated//Inflamed Seborrheic Keratosis [L82.0]09/23/2009 Solar lentigo [L81.4] 09/23/2009 Bladder Neck Obstruction [N32.0] 10/30/2009 Hypertrophy of prostate with urinary obstructio*05/28/2010 Arthritis of shoulder region, left, degenerativ*08/03/2011 Benign neoplasm of rectum and anal canal [D12.8*08/23/2011 Pain in joint, shoulder region [M25.519] 10/21/2011 Chronic knee pain [M25.569, G89.29] 02/28/2017 Preop examination [Z01.818] 11/21/2023 Elevated prostate specific antigen (PSA) [R97.2*11/21/2023 11/29/2023 Obesity, Class I, BMI 30-34.9 [E66.811] 11/21/2023 Prostate cancer (HCC) [C61] 11/29/2023 BPH with obstruction/lower urinary tract sympto*11/28/2024 Encounter Status:Closed by SOPHIA GARAY on 12/10/24 [facility] 12-03-2024 Note HNO ID: [id number] Author: JOSE HI MA Service: ? Author Type: Fisher Dip Net Type: Progress Notes Filed: 12/03/2024 13:59 Note Text: POPULATION HEALTH NAVIGATION OUTREACH Action/FYI Readmission Risk= 17% High Risk: Please schedule with PCP within 7 days, please let pt know a follow up would be best to check BP and HR in the office. Thank you , Sophia Garay RN Patient discharged from [facility] Discharge date: 11/29/24 Admitted for: BPH with obstruction/lower urinary symptoms Readmission Risk: 17% Value-Based Contract: ACO Spoke with patient Scheduled Hospital Follow up Didn't offer wellness due to a lot of confusion with appointments Reason for Outreach Community Monitoring/Network Navigator Pools AND Phone Line: CM Pool Care Gaps due: Follow-up Appointment Patient Contacted: Spoke to patient/parent/or legal guardian Patient identified by name and : Yes Community Monitoring/Network Navigator Pools AND Phone Line actions taken: Patient scheduled / pended orders: Hospital Follow-up: High risk >15% 12/11/2024 in [facility] with GANTA, AILIN - [facility]UAN BLANT[facility] - post op 4 weeks-ok by ANGELICA 01/09/2025 in [facility] with GANTA, AILIN - 3 mo follow up 04/10/2025 in [facility] with [facility] - PSA 04/17/2025 in [facility] with FLORIAN HUFFMANUNG - 6MO/LABS 03/31* Navigation Signature: Jose Hi MA December 03, 2024 1:47 PM [facility] 12-03-2024 History of Present illness Narrative POPULATION HEALTH NAVIGATION OUTREACH Action/FYI Readmission Risk= 17% High Risk: Please schedule with PCP within 7 days, please let pt know a follow up would be best to check BP and HR in the office. Thank you , Sophia Garay RN Patient discharged from [facility] Discharge date: 11/29/24 Admitted for: BPH with obstruction/lower urinary symptoms Readmission Risk: 17% Value-Based Contract: ACO Spoke with patient Scheduled Hospital Follow up Didn't offer wellness due to a lot of confusion with appointments Reason for Outreach Community Monitoring/Network Navigator Pools & Phone Line: CM Pool Care Gaps due: Follow-up Appointment Patient Contacted: Spoke to patient/parent/or legal guardian Patient identified by name and : Yes Community Monitoring/Network Navigator Pools & Phone Line actions taken: Patient scheduled / pended orders: Hospital Follow-up: High risk >15% 12/11/2024 in [facility] with JASMEET PIERSONRA - Hospital Follow up 12/27/2024 in [facility] with JUAN BLANTON JR - post op 4 weeks-ok by ANGELICA 01/09/2025 in [facility] with AILIN PIERSON - 3 mo follow up 04/10/2025 in [facility] with [facility] - PSA 04/17/2025 in [facility] with VINCE HUFFMAN - 6MO/LABS 03/31* Navigation Signature: Jose Hi MA December 03, 2024 1:47 PM Transition Care Management (TCM) Initial Outreach PCP Update / Actionable Items Readmission Risk= 17% High Risk: Please schedule with PCP within 7 days, please let pt know a follow up would be best to check BP and HR in the office. Thank you , Sophia Garay RN HRTIC TCM Home Visit Referral Source of Stratification: [facility] Hospital Admission Status: Discharged Readmission Risk Score: 17% Patient meets program referral criteria: No Patient does not qualify for High Risk TCM Home Visit program due to: Readmission Risk Score does not meet criteria Disposition: Patient does not qualify for HRTIC, will provide TCM outreach follow-up for 30-days Patient Source: In-Network Discharge Initial outreach: TCM discharge report Outreach Summary: Spoke with pt. He states that he is doing pretty good. He was having a good amount of blood in his urine. The blood is subsiding and urine is looking more clear. He is urinating about every 1-1.5 hr or it will leak. No pain from procedure. Pt having more formed stools. Pt BP was 101/61 today, which is lower than normal. Pt talked to nurse at Dr. Pierson's this morning. He was told to check his HR. Pt checked BP while on phone with PCC, 115/78 Pulse 55. Advised to monitor a few times a day, if HR dropping below 55 or pt has dizziness or lightheadedness, should call the office. Reviewed H@H number. Follow up with Urology on 12/27. Pt declines sooner PCP follow up. Pt thanked PCC. Patient discharged from [facility] Discharge date: 11/29/24 Admitted for: BPH with obstruction/lower urinary symptoms Readmission Risk: 17% Value-Based Contract: ACO Contact: Contact made with patient: Yes Hi, my name is Sophia Garay RN and I am calling from the [facility] on behalf of your Primary Care Provider, Ailin Pierson MD. I understand you were recently in the hospital, so I am calling to check in with you to ensure you are feeling well now that you are home. May I ask you a few questions related to your hospital stay and well-being? Yes Spoke to: Patient Validation: Validated the person spoken to is actively involved in the patient's care. The patient was identified by Name and Date of . Symptoms: Are you feeling about the same, better or worse since leaving the hospital? Better Medications: Do you have any questions about taking your medications, including which medications you should be on, or do you need refills on your medications? No Medication Review: Partial mediation review completed, per patient preference Discharge Instructions: Your Discharge Instructions / After Visit Summary (AVS) are important in guiding you through the recovery process. Do you have any questions related to your discharge instructions? No Home Care: Were you discharged with home care? No Equipment: Do you have all the necessary equipment and supplies needed at your home? No Reviewed equipment and supplies needed Facilitated any orders and/or provider updates on behalf of the patient as needed Social: Your mental health is as important to us as your physical health. Would you mind answering a few questions on this topic? Yes On the Storyboard review: Food Insecurity, Transportation, Depression, Housing, and Financial Strain: Complete any SDOHs, listed above, if not addressed in the past 3 months. If all SDOHs, listed above, have been addressed within the last 3 months, confirm responses and update any SDOHs that have changed. Action Taken: No needs verbalized. No action required. Follow-Up Appointment: [Appointment / TCM Follow-up within 14 days] I would like to help you schedule a hospital follow-up virtual or telephone visit with your PCP. This is a great way for you to connect with your provider to ensure you have safely transitioned home. If you are agreeable, I will send your request to a project controls scheduler who will contact and assist you with that appointment. This will give you an opportunity to ask any questions or address any concerns you may have with your PCP. Inform the patient that if they have any questions or concerns prior to that appointment, to call their PCP's office right away. Appointment Action: No action required; patient already has appointment scheduled. Education details: Patient and family educated on issues/questions related to reason for admission, transition of care topics, and follow-up needed upon discharge. Sophia Garay RN December 03, 2024 11:30 AM documented in this encounter [facility] 12-03-2024 Note HNO ID: [id number] Author: SOPHIA GARAY RN Service: ? Author Type: Registered Nurse Type: Progress Notes Filed: 12/03/2024 11:55 Note Text: Transition Care Management (TCM) Initial Outreach PCP Update / Actionable Items Readmission Risk= 17% High Risk: Please schedule with PCP within 7 days, please let pt know a follow up would be best to check BP and HR in the office. Thank you , Sophia Garay RN HRTIC TCM Home Visit Referral Source of Stratification: [facility] Hospital Admission Status: Discharged Readmission Risk Score: 17% Patient meets program referral criteria: No Patient does not qualify for High Risk TCM Home Visit program due to: Readmission Risk Score does not meet criteria Disposition: Patient does not qualify for HRTIC, will provide TCM outreach follow-up for 30-days Patient Source: In-Network Discharge Initial outreach: TCM discharge report Outreach Summary: Spoke with pt. He states that he is doing pretty good. He was having a good amount of blood in his urine. The blood is subsiding and urine is looking more clear. He is urinating about every 1-1.5 hr or it will leak. No pain from procedure. Pt having more formed stools. Pt BP was 101/61 today, which is lower than normal. Pt talked to nurse at Dr. Pierson'jana this morning. He was told to check his HR. Pt checked BP while on phone with PCC, 115/78 Pulse 55. Advised to monitor a few times a day, if HR dropping below 55 or pt has dizziness or lightheadedness, should call the office. Reviewed H@H number. Follow up with Urology on 12/27. Pt declines sooner PCP follow up. Pt thanked PCC. Patient discharged from [facility] Discharge date: 11/29/24 Admitted for: BPH with obstruction/lower urinary symptoms Readmission Risk: 17% Value-Based Contract: ACO Contact: Contact made with patient: Yes Hi, my name is Sophia Garay RN and I am calling from the [facility] on behalf of your Primary Care Provider, Ailin Pierson MD. I understand you were recently in the hospital, so I am calling to check in with you to ensure you are feeling well now that you are home. May I ask you a few questions related to your hospital stay and well-being? Yes Spoke to: Patient Validation: Validated the person spoken to is actively involved in the patient's care. The patient was identified by Name and Date of . Symptoms: Are you feeling about the same, better or worse since leaving the hospital? Better Medications: Do you have any questions about taking your medications, including which medications you should be on, or do you need refills on your medications? No Medication Review: Partial mediation review completed, per patient preference Discharge Instructions: Your Discharge Instructions / After Visit Summary (AVS) are important in guiding you through the recovery process. Do you have any questions related to your discharge instructions? No Home Care: Were you discharged with home care? No Equipment: Do you have all the necessary equipment and supplies needed at your home? No Reviewed equipment and supplies needed Facilitated any orders and/or provider updates on behalf of the patient as needed Social: Your mental health is as important to us as your physical health. Would you mind answering a few questions on this topic? Yes On the Storyboard review: Food Insecurity, Transportation, Depression, Housing, and Financial Strain: Complete any SDOHs, listed above, if not addressed in the past 3 months. If all SDOHs, listed above, have been addressed within the last 3 months, confirm responses and update any SDOHs that have changed. Action Taken: No needs verbalized. No action required. Follow-Up Appointment: [Appointment / TCM Follow-up within 14 days] I would like to help you schedule a hospital follow-up virtual or telephone visit with your PCP. This is a great way for you to connect with your provider to ensure you have safely transitioned home. If you are agreeable, I will send your request to a project controls scheduler who will contact and assist you with that appointment. This will give you an opportunity to ask any questions or address any concerns you may have with your PCP. Inform the patient that if they have any questions or concerns prior to that appointment, to call their PCP's office right away. Appointment Action: No action required; patient already has appointment scheduled. Education details: Patient and family educated on issues/questions related to reason for admission, transition of care topics, and follow-up needed upon discharge. Sophia Garay RN December 03, 2024 11:30 AM [facility] 12-03-2024 Note Patient Outreach ([facility] HANZACHARY PATEL ([id number]) 1945 M Date Time Provider Department 12/03/24 SOPHIA GARAY During your visit today, we recorded the following information about you: Sophia Garay RN 12/03/2024 11:55 AM Addendum Transition Care Management (TCM) Initial Outreach PCP Update / Actionable Items Readmission Risk= 17% High Risk: Please schedule with PCP within 7 days, please let pt know a follow up would be best to check BP and HR in the office. Thank you , Sophia Garay RN RUSTIC TCM Home Visit Referral Source of Stratification: [facility] Hospital Admission Status: Discharged Readmission Risk Score: 17% Patient meets program referral criteria: No Patient does not qualify for High Risk TCM Home Visit program due to: Readmission Risk Score does not meet criteria Disposition: Patient does not qualify for [facility], will provide TCM outreach follow-up for 30-days Patient Source: In-Network Discharge Initial outreach: TCM discharge report Outreach Summary: Spoke with pt. He states that he is doing pretty good. He was having a good amount of blood in his urine. The blood is subsiding and urine is looking more clear. He is urinating about every 1-1.5 hr or it will leak. No pain from procedure. Pt having more formed stools. Pt BP was 101/61 today, which is lower than normal. Pt talked to nurse at Dr. Ly this morning. He was told to check his HR. Pt checked BP while on phone with PCC, 115/78 Pulse 55. Advised to monitor a few times a day, if HR dropping below 55 or pt has dizziness or lightheadedness, should call the office. Reviewed H@H number. Follow up with Urology on 12/27. Pt declines sooner PCP follow up. Pt thanked PCC. Patient discharged from [facility] Discharge date: 11/29/24 Admitted for: BPH with obstruction/lower urinary symptoms Readmission Risk: 17% Value-Based Contract: ACO Contact: Contact made with patient: Yes Hi, my name is Sophia Garay RN and I am calling from the [facility] on behalf of your Primary Care Provider, Ailin Pierson MD. I understand you were recently in the hospital, so I am calling to check in with you to ensure you are feeling well now that you are home. May I ask you a few questions related to your hospital stay and well-being? Yes Spoke to: Patient Validation: Validated the person spoken to is actively involved in the patient's care. The patient was identified by Name and Date of . Symptoms: Are you feeling about the same, better or worse since leaving the hospital? Better Medications: Do you have any questions about taking your medications, including which medications you should be on, or do you need refills on your medications? No Medication Review: Partial mediation review completed, per patient preference Discharge Instructions: Your Discharge Instructions / After Visit Summary (AVS) are important in guiding you through the recovery process. Do you have any questions related to your discharge instructions? No Home Care: Were you discharged with home care? No Equipment: Do you have all the necessary equipment and supplies needed at your home? No Reviewed equipment and supplies needed Facilitated any orders and/or provider updates on behalf of the patient as needed Social: Your mental health is as important to us as your physical health. Would you mind answering a few questions on this topic? Yes On the Storyboard review: Food Insecurity, Transportation, Depression, Housing, and Financial Strain: Complete any SDOHs, listed above, if not addressed in the past 3 months. If all SDOHs, listed above, have been addressed within the last 3 months, confirm responses and update any SDOHs that have changed. Action Taken: No needs verbalized. No action required. Follow-Up Appointment: [Appointment / TCM Follow-up within 14 days] I would like to help you schedule a hospital follow-up virtual or telephone visit with your PCP. This is a great way for you to connect with your provider to ensure you have safely transitioned home. If you are agreeable, I will send your request to a project controls scheduler who will contact and assist you with that appointment. This will give you an opportunity to ask any questions or address any concerns you may have with your PCP. Inform the patient that if they have any questions or concerns prior to that appointment, to call their PCP's office right away. Appointment Action: No action required; patient already has appointment scheduled. Education details: Patient and family educated on issues/questions related to reason for admission, transition of care topics, and follow-up needed upon discharge. Sophia Garay RN December 03, 2024 11:30 AM Jose Hi MA 12/03/2024 1:59 PM Signed POPULATION HEALTH NAVIGATION OUTREACH Action/FYI Readmission Risk= (more content not included)... [facility] 11-30-2024 Telephone encounter Note [facility] or 11/28/24 Fu with me 4 weeks [facility] 11-30-2024 Miscellaneous Notes [facility] or 11/28/24 Fu with me 4 weeks documented in this encounter [facility] 11-29-2024 Note HNO ID: [id number] Author: HARI JIMENEZ RN Service: Care Management Author Type: Registered Nurse Type: Care Mgt Progress Note Filed: 11/29/2024 15:06 Note Text: CARE MANAGEMENT: ASSESSMENT AND DISCHARGE PLAN SERVICE DATE: November 29, 2024 SERVICE TIME: 10:30 AM PCP: Ailin Pierson MD Primary Contact: Extended Emergency Contact Information Primary Emergency Contact: Arnoldo Short Mobile Relation: Son Admission Status: Observation Insurance Provider: MEDICARE A AND B Discharge Planning requested by: Per Department Practice Potential Transition Plans Home, No Services Indicated Advance Directives Current Advance Directive: Health Care Power of Skiver Machine Operator In Chart: Yes Up To Date and Valid: Yes Current Living Arrangements and Support Lives with: Alone (with cat Sameer) Type of Residence: Private Residence (House) Does the patient have to climb stairs at home?: stairs within the home (steps in basement, but patient states he does not go down there) Support: Friends/neighbors, Family members, Children How do you manage to accomplish the following: Independent: Ambulation, Bathe/Shower, Dress, Meals/Meal Prep, Going to the bathroom, Medication Management, Transportation to appointments/community Current Services/Equipment Current Post-Acute Service(s): DME Current DME Type: Cane, Rollator Scooter Discharge Planning Patient Goal(s): Be able to go home, General wellness, Less pain [place] of Choice Explained: [place] Given: No Reason Not Given: No placements necessary Are you interested in bedside delivery of your medications? Yes Discharge Planning Participant(s): Patient Patient/Family Comments: Caregiver Assessment: Caregiver is ready, willing and able to meet the patient's needs as recommended by the inter-professional team: No Caregiver needed Name of Caregiver: neighbors, family Transport at Discharge: Transportation Arrangements: Car Date of Trip: 11/29/24 Destination: Home Needs Prior to Discharge: Needs Prior to Discharge: Ready for Discharge, None Post-Acute Discharge Plan: CM introduced self to patient at bedside. Patient lives at home alone with his cat. Patient has 0 steps to get into home, and basement stairs which he does not use. Patient is independent with ADLs. Patient has a cane and rollator he uses PRN. No anticipated needs at this time. Patient son Arnoldo to transport him home at time of DC. CM will continue to follow for discharge care. SIGNATURE: Hari Jimenez RN PATIENT NAME: Zachary Short DATE: November 29, 2024 TIME: 2:50 PM CARE MANAGEMENT DISCHARGE NOTE SERVICE DATE: November 29, 2024 SERVICE TIME: 2:53 PM Admission Date: 11/28/2024 LOS: 0 days Discharge Arrangement Discharge Arrangement: Home with Self Care, Home with Relative Services Arranged Provider Name: Ailin Pierson MD PCP - General, Internal Medicine Since 02/21/2016 Caregiver Assessment Caregiver is ready, willing and able to meet the patient's needs as recommended by the inter-professional team: No Caregiver needed Name of Caregiver: neighbors, family Transportation Arrangements Transportation Arrangements: Car Date of Trip: 11/29/24 Destination: Home Handoff Communication: Handoff to: Primary Care Physician Primary Care Physician Name/Phone: Ailin Pierson MD Additional Information: Patient lives at home alone with his cat. Patient has 0 steps to get into home, and basement stairs which he does not use. Patient has a cane and rollator he uses PRN. Patient is independent with ADLs. Patient son Arnoldo to transport him home at time of DC. SIGNATURE: Hari Jimenez RN, BSN PATIENT NAME: Zachary Short DATE: November 29, 2024 TIME: 2:50 PM [facility] 11-29-2024 Note HNO ID: [id number] Author: ROCHELLE MEDRANO RN Service: ? Author Type: Registered Nurse Type: Progress Notes Filed: 11/29/2024 13:24 Note Text: Transitional Care Management (TCM) Inpatient Outreach N/A - No specialty updates needed Summary: Patient admitted to: [facility] Patient admitted on: (Not on file) Admitted for: BPH Contact made with patient: No, MyChart message sent. Outreach ended. Rochelle Medrano RN November 29, 2024 [facility] 11-29-2024 History of Present illness Narrative Transitional Care Management (TCM) Inpatient Outreach N/A - No specialty updates needed Summary: Patient admitted to: [facility] Patient admitted on: (Not on file) Admitted for: BPH Contact made with patient: No, MyChart message sent. Outreach ended. Rochelle Medrano RN November 29, 2024 documented in this encounter [facility] 11-29-2024 Note HNO ID: [id number] Author: JUAN BLANTON JR, MD Service: Urology Author Type: Resident Type: Progress Notes Filed: 11/29/2024 08:32 Note Text: Attestation signed by Juan Blanton Jr., MD at 11/29/2024 8:32 AM Discussed with the resident and agree with resident's findings and plan as documented in the resident's note. Juan Blanton Jr, MD UROLOGY PROGRESS NOTE PATIENT NAME: Zachary Short DATE OF : 1945 ADMISSION DATE: 11/28/2024 8:23 AM Subjective NAEON Denies issues denies chest pain or shortness of breath Has not been OOB much Objective VS: BP 110/52 Pulse (!) 51 Temp 36.3 ?C (97.4 ?F) Resp 16 Ht 182.9 cm (6') Wt 107.3 kg (236 lb 8.9 oz) SpO2 98% BMI 32.08 kg/m? I AND O - 24hr: Intake/Output Summary (Last 24 hours) at 11/29/2024 0710 Last data filed at 11/29/2024 0452 Gross per 24 hour Intake 1380 ml Output 7300 ml Net -5920 ml Physical Exam: General: Neck: Resp: Abdomen: No acute distress Supple Normal effort soft : Urine grade 1 Labs and Imaging Studies LABS: BMP: No results for input(s): NA, K, CHLOR, CO2, BUN, CREAT, GLUC in the last 72 hours. CBC: No results for input(s): WBC, HB, HCT, PLT in the last 72 hours. Urinalysis: pH, Arterial Date Value Ref Range Status 07/17/2007 7.43 7.35 - 7.45 Final Specific Lorane, Ur Date Value Ref Range Status 10/23/2024 1.020 1.005 - 1.030 Final Glucose, Urine Date Value Ref Range Status 10/23/2024 Negative Negative Final Bilirubin, Urine Date Value Ref Range Status 10/23/2024 Negative Negative Final Ketones, Urine Date Value Ref Range Status 10/23/2024 Negative Negative Final Hemoglobin/Blood,Ur Date Value Ref Range Status 10/23/2024 3+ (A) Negative Final Protein, Urine Date Value Ref Range Status 10/23/2024 1+ (A) Negative Final Nitrites Date Value Ref Range Status 10/23/2024 Negative Negative Final WBC, Urine Date Value Ref Range Status 10/23/2024 11-25 /HPF (A) 0-5 /HPF Final Assessment/Plan ASSESSMENT: 79 year old male POD1 TURP PLAN: - mahoney removed on rounds -please page station gateman when pt voids - may consider EKG if HR lower on next vitals check -pt asymptomatic at this time -amoxicillin for home - anticipate home later today Neelam Lin MD PGY-3 Urology Resident [facility] 11-29-2024 Note Patient Outreach (AM BC) ZACHARY SHORT ([id number]) 1945 M Date Time Provider Department 11/29/24 ROCHELLE MEDRANO AMBWALTERG During your visit today, we recorded the following information about you: Rochelle Medrano RN 11/29/2024 1:24 PM Signed Transitional Care Management (TCM) Inpatient Outreach N/A - No specialty updates needed Summary: Patient admitted to: [facility] Patient admitted on: (Not on file) Admitted for: BPH Contact made with patient: No, MyChart message sent. Outreach ended. Rochelle Medrano RN November 29, 2024 Allergies As of Date: 11/29/2024 Noted Allergy Reaction RAMELTEON 05/22/2024 1 - Mental Status Change Date Reviewed: 11/28/2024 Reviewed by: Mikala Miranda, LAY - Fully Assessed Reason for Visit: Transition Of Care [4074] Cmt: Inpatient reach in Prescriptions as of 11/29/2024 - finasteride (PROSCAR) 5 mg tablet Take 1 tablet by mouth once daily. - colestipol (COLESTID) 1 gram tablet Take 1 tablet by mouth two times a day. - citalopram (CELEXA) 20 mg tablet Take 1 tablet by mouth once daily. - tamsulosin (FLOMAX) 0.4 mg Take 1 capsule by mouth two times a day. - oxyCODONE-acetaminophen 5-325 mg (PERCOCET) Take 1-2 tablets by mouth every 4 hours as needed (for pain). - azelastine 0.1% nasal spray Use 1 [place] in each nostril two times a day. - lisinopril-hydroCHLOROthiazide (ZESTORETIC) 10-12.5 mg per tablet Take 1 tablet by mouth once daily. - ergocalciferol 50,000 unit capsule (VITAMIN D2, DRISDOL) Take 1 capsule by mouth two times a week. TO BE TAKEN ORALLY DIRECTED. Take 1 tablet by mouth twice weekly [id number], then decrease to 1 tablet weekly. - naproxen (NAPROSYN) 500 mg tablet Take 1 tablet by mouth two times a day as needed (for pain/inflammation). Take with food. - polyethylene glycol 3350 (MIRALAX) 17 gram/dose powder Take 17 g by mouth once daily. Dissolve dose in 4 - 8 ounces of liquid and take as directed. - aspirin, enteric coated (ASPIRIN, ENTERIC COATED) 81 mg EC tablet Take 1 tablet by mouth once daily. Facility-Administered Medications as of 11/29/2024 - colestipol 1 g tab(s) (COLESTID) - citalopram 20 mg tab(s) (CeleXA) - finasteride 5 mg tab(s) (PROSCAR) - tamsulosin 0.4 mg cap(s) (FLOMAX) - oxyCODONE-acetaminophen 5-325 mg 1 tablet (PERCOCET) - ondansetron (PF) 4 mg injection (ZOFRAN) - NaCl 0.9% irrigation solution - NaCl 0.9% iv flush bag - acetaminophen 650 mg tab(s) (TYLENOL) - metoclopramide HCl 10 mg injection (REGLAN) - melatonin 3 mg tab(s) - docusate sodium 100 mg cap(s) (COLACE) - NaCl 0.9% irrigation solution - lisinopril 10 mg tab(s) (ZESTRIL) - hydroCHLOROthiazide 12.5 mg tab(s) Problem List As Of Date 11/29/2024 Noted Resolved Mixed hyperlipidemia [E78.2] 11/09/2005 Unspecified Asthma [J45.909] 11/09/2005 Personal history of other malignant neoplasm of*03/31/2006 Cervical Spondylosis without Myelopathy [M47.81* Family History of Malignant Neoplasm of Gastroi*05/16/2008 Primary Localized Osteoarthrosis, Shoulder Quin*05/16/2008 ACTINIC KERATOSIS (Premalignant AK) [L57.0] 05/17/2008 Other Seborrheic Keratosis [L82.1] 05/17/2008 09/15/2009 ACTINIC DAMAGE///CHR SOLAR SKIN DAMAGE NOS [L57*05/17/2008 09/15/2009 Rosacea [L71.9] 05/17/2008 Primary hypertension [I10] 09/15/2009 Obesity [E66.9] 09/15/2009 Irritated//Inflamed Seborrheic Keratosis [L82.0]09/23/2009 Solar lentigo [L81.4] 09/23/2009 Bladder Neck Obstruction [N32.0] 10/30/2009 Hypertrophy of prostate with urinary obstructio*05/28/2010 Arthritis of shoulder region, left, degenerativ*08/03/2011 Benign neoplasm of rectum and anal canal [D12.8*08/23/2011 Pain in joint, shoulder region [M25.519] 10/21/2011 Chronic knee pain [M25.569, G89.29] 02/28/2017 Preop examination [Z01.818] 11/21/2023 Elevated prostate specific antigen (PSA) [R97.2*11/21/2023 11/29/2023 Obesity, Class I, BMI 30-34.9 [E66.811] 11/21/2023 Prostate cancer (HCC) [C61] 11/29/2023 BPH with obstruction/lower urinary tract sympto*11/28/2024 Encounter Status:Closed by ROCHELLE MEDRANO on 11/29/24 [facility] 11-28-2024 Note HNO ID: [id number] Author: GREGORY RAMIREZ, RN Service: Nursing Author Type: Registered Nurse Type: Nursing Progress Note Filed: 11/28/2024 14:08 Note Text: Dr. Salguero ok with transfer to floor. [facility] 11-28-2024 Note HNO ID: [id number] Author: LYLY THORPE APRN.GENERAL OFFICE CLERK Service: Anesthesiology Author Type: Nurse Communications Intern Type: Anesthesia Procedure Notes Filed: 11/28/2024 10:50 Note Text: ANESTHESIOLOGY PROCEDURE NOTE Airway General Information Procedure Start Time/Medication Administration: 11/28/2024 10:11 AM Procedure End Time: 11/28/2024 10:12 AM Patient location during procedure: OR Consent Obtained: Yes Patient identity confirmed: arm band Staffing Anesthesiologist: Juan Salguero DO GENERAL OFFICE CLERK: Lyly Thorpe APRN.GENERAL OFFICE CLERK Performed by: GENERAL OFFICE CLERK Indications and Patient Condition Indications for airway management: anesthesia and airway protection Preoxygenated: yes anesthesia circuit Patient position: sniffing Method: asleep Manual In-Line Stabilization: No Final Airway Details Final airway type: supraglottic airway Number of attempts at approach: 1 Final Supraglottic Airway: i-gel Size 4 Seal Adequate: yes SIGNATURE: Lyly Thorpe APRN.GENERAL OFFICE CLERK PATIENT NAME: Zachary Short DATE: November 28, 2024 TIME: 10:49 AM CSN: [id number] [facility] 11-20-2024 Telephone encounter Note I do not think his cardiological finding will interfere with his urological treatment Regards, Ailin Pierson MD [facility] 11-20-2024 Miscellaneous Notes I do not think his cardiological finding will interfere with his urological treatment Regards, Ailin Pierson MD Pt informed. Pt asking if result needs sent to DR Blanton [facility] urology? Pt reports he has a procedure beginning of next month Jie Preciado MA ----- Message from Ailin Pierson MD sent at 11/19/2024 5:35 PM EDT ----- The heart function is good, but the aorta is mildly dialated we will discuss this further in the next visit, no intervention needed at this time. Regards, Ailin Pierson MD documented in this encounter [facility] 11-20-2024 Telephone encounter Note Pt informed. Pt asking if result needs sent to DR Blanton [facility] urology? Pt reports he has a procedure beginning of next month Jie Preciado MA [facility] 11-20-2024 Telephone encounter Note ----- Message from Ailin Pierson MD sent at 11/19/2024 5:35 PM EDT ----- The heart function is good, but the aorta is mildly dialated we will discuss this further in the next visit, no intervention needed at this time. Regards, Ailin Pierson MD [facility] 11-14-2024 Telephone encounter Note Called patient and LVM of scheduled echo appt. If patient calls back please let him know date and time of echo. . ThanksYordan [facility] 11-14-2024 Miscellaneous Notes Called patient and LVM of scheduled echo appt. If patient calls back please let him know date and time of echo. . Yordan Manriquez documented in this encounter [facility] 11-14-2024 History and physical note Images from the original note were not included. [facility] HISTORY AND PHYSICAL EXAMINATION SERVICE DATE: 11/14/2024 SERVICE TIME: 07:45 AM PRIMARY CARE PHYSICIAN: Ailin Pierson MD Assessment Patient has the following medical conditions which may affect jose francisco-operative course: Problem List Items Addressed This Visit Cardiovascular Mixed hyperlipidemia Current Assessment & Plan Managed by PCP and Controlled with meds. Cholesterol, Total (mg/dL) Date Value 04/19/2024 193 06/11/2020 170 Primary hypertension Current Assessment & Plan Managed by PCP and Controlled with meds. Last 14 BP Last 14 Encounter BP Readings: Date: BP: 10/23/2024 129/73 10/10/2024 102/61 09/18/2024 111/58 09/11/2024 114/66 09/04/2024 142/67 08/28/2024 116/63 08/28/2024 110/62 08/21/2024 100/67 08/14/2024 122/72 06/29/2024 118/69 06/26/2024 112/70 04/23/2024 118/78 01/05/2024 120/71 12/29/2023 120/78 Other Preop examination - Primary Current Assessment & Plan Patient has the following medical conditions which may affect jose francisco-operative course addressed in assessment and plan today Obesity, Class I, BMI 30-34.9 Current Assessment & Plan BMI 32 Pending ECHO from 10/10/2024 in [facility] ? Flagged for anesthesia review ANESTHESIA FINDINGS: Intubation History: No history of difficult intubation. No abnormal airway history Significant Anesthesia Considerations: none Airway History: No history of difficult airway No abnormal airway history Glover Activity Status Index: METS: Climb a flight of stairs or walk up a hill (5.50 METs) DASI Score: 5.5 Patient denies any chest pain or undue shortness of breath with the above physical activity. ARISCAT Score: Age: >80 Preoperative SpO2: >=96% Respiratory infection in the last month: No Preoperative anemia: No Surgical incision: peripheral Duration of surgery: <2 hrs Emergency procedure: No ARISCAT Score: 16 I - PHYSICAL EVALUATION AIRWAY Patient intubated: No. DENTAL Dental findings: missing tooth/teeth and poor dentition. Dentures, upper: partial. Dentures, lower: partial. II - ANESTHESIA PLAN Anesthetic Plan: general Beta Ayaz Monitoring Plan Post Procedure Analgesic Plan Prepared for Surgery: . Last OR October 2023 with no issues with anesthesia CONSULTS: Planned Anesthetic: general The Following Tests/Procedures Have Been Initiated: No orders of the defined types were placed in this encounter. REASON FOR VISIT: Zachary Short is a 79 year old male who is scheduled for Procedure(s): CYSTOSCOPY, RESECTION PROSTATE TRANSURETHRAL (N/A) at the request of Dr. Blanton, Juan Martin Jr., MD for routine H&P. My final recommendation will be communicated back to the requesting physician by way of shared medical record or letter. Subjective The patient has the following: COVID-19 Immunization Status Upcoming Covid-19 Vaccine () Postponed until 04/23/2025 04/23/2024 Postponed until 04/23/2025 by Ailin Pierson MD (Declined at this time) 03/30/2023 Postponed until 03/30/2024 by Roxana Reza MA (Declined at this time) 03/25/2022 Postponed until 03/25/2023 by Roxana Reza MA (Declined at this time) Only the first 3 history entries have been loaded, but more history exists. CHIEF COMPLAINT: The reason for this visit is to perform a comprehensive review of the patient's past medical history, assess their current health status and obtain any additional testing required based on anesthesia guidelines. We will also identify any potential anesthesia problems or contraindications to the planned procedure. HPI: Patient presents to [facility] for the preoperative exam for the above procedure. Patient with PMH prostate cancer on hormone therapy s/p radiation with last treatment 3 weeks ago. Chronic hx of BPH x 2 years. Patient recently was unable to empty his bladder with ultrasound showing blockage. Mahoney cath put in place. +UTI and was prescribed antibiotic treatments. Patient denies any other problems or concerns at this time. Risks and benefits of the procedure discussed by Surgeon and patient agreed to proceed with planned procedure. REVIEW OF SYSTEMS: General: No weight loss, malaise or fevers. Neurological: No history of TIA's, stroke, REMOTE RECRUITER tumor, impaired sensorium, hemiplegia, paraplegia or quadraplegia. No neurological symptoms or problems. Respiratory: No history of current cough or dyspnea, or pneumonia in the past 6 weeks. No history of respiratory/pulmonary symptoms or problems. Cardiovascular: Positive for: hyperlipidemia and hypertension GI: No history of GI symptoms or problems. No history of esophageal varices, recent ascites, or ETOH greater than 2 drinks per day. : See HPI. Positive for: self catheterization. Endocrine: No history of diabetes. Has not taken steroids within the past 30 days. No history of endocrinological symptoms or problems. Hematology: No history of bleeding or clotting disorder. Patient is not taking anti-coagulation or platelet medications. No history of hematological symptoms or problems. Oncology: Hx Prostate Ca Radiation 3 weeks from today Positive for: chemo within 30 days. Psych: No history of psychiatric symptoms or problems. Musculoskeletal: Negative for joint pain or swelling, back pain or muscle pain. Skin: Negative for lesions, rash and itching. Implanted Devices: Has implanted device Implants: Mahoney Cath, Joints. plates. 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 Only seasonal now PAST SURGICAL HISTORY Procedure Laterality Date ARTHROPLASTY HEMIARTHROPLASTY 09/10/2011 left shoulder Ari arthroplasty ARTHROPLASTY HEMIARTHROPLASTY 03/07/2012 left shoulder revision COLONOSCOPY & POLYPECTOMY 08/23/11 repeat 5 years COLONOSCOPY FLX DX W/COLLJ SPEC WHEN PFRMD 10/19/2016 Normal colonoscopy-family history-5 year follow-up NECK 07/17/2007 Anterior cervical discectomy allograft fusion on c-4,c-5,c-6 FAMILY HISTORY Problem Relation Age of Onset Colon Cancer Father Cancer Mother metastatic melanoma Social History Tobacco Use Smoking status: Never Passive exposure: Never Smokeless tobacco: Never Vaping Use Vaping status: Never Used Substance Use Topics Alcohol use: Yes Comment: socially, 3-4 beers/year Drug use: No Prior to Admission medications as of 11/14/24 0831 Medication Sig Last Dose Taking finasteride (PROSCAR) 5 mg tablet Take 1 tablet by mouth once daily. Yes colestipol (COLESTID) 1 gram tablet Take 1 tablet by mouth two times a day. Yes citalopram (CELEXA) 20 mg tablet Take 1 tablet by mouth once daily. Yes tamsulosin (FLOMAX) 0.4 mg Take 1 capsule by mouth two times a day. Yes oxyCODONE-acetaminophen 5-325 mg (PERCOCET) Take 1-2 tablets by mouth every 4 hours as needed (for pain). Yes azelastine 0.1% nasal spray Use 1 [place] in each nostril two times a day. Yes lisinopril-hydroCHLOROthiazide (ZESTORETIC) 10-12.5 mg per tablet Take 1 tablet by mouth once daily. Yes ergocalciferol 50,000 unit capsule (VITAMIN D2, DRISDOL) Take 1 capsule by mouth two times a week. TO BE TAKEN ORALLY DIRECTED. Take 1 tablet by mouth twice weekly [id number], then decrease to 1 tablet weekly. Yes polyethylene glycol 3350 (MIRALAX) 17 gram/dose powder Take 17 g by mouth once daily. Dissolve dose in 4 - 8 ounces of liquid and take as directed. Patient taking differently: Take 17 g by mouth as needed. Dissolve dose in 4 - 8 ounces of liquid and take as directed. Yes naproxen (NAPROSYN) 500 mg tablet Take 1 tablet by mouth two times a day as needed (for pain/inflammation). Take with food. Patient not taking: Reported on 06/26/2024 aspirin, enteric coated (ASPIRIN, ENTERIC COATED) 81 mg EC tablet Take 1 tablet by mouth once daily. Patient not taking: Reported on 06/26/2024 No medication comments found. ALLERGIES Allergen Reactions Ramelteon Mental Status Change Objective PHYSICAL EXAM: General: alert and oriented and healthy appearance. Pertinent negatives noted - not distressed. Skin: normal color, no rash or lesions. HEENT: pupils equal round and pupils reactive to light. Cardiovascular: regular rate and rhythm, normal S1 and S2, no rub, murmurs, or gallop. Respiratory: normal breath sounds, no wheezes or crackles. No chest wall deformity or tenderness. Abdomen: bowel sounds present and soft. Pertinent negatives noted - not tender. Extremities: no deformity, no edema or tenderness, no joint swelling or clubbing. Neurological: normal cognition and motor skills. Gait normal. No weakness or sensory deficit. PAIN ASSESSMENT: VITALS: BP 100/85 Pulse 67 Temp 96.8 Resp 18 Ht 5' 11 (1.80m) Wt 232 lb (105.2kg) SpO2 96% BMI 32.37 kg/(m^2). Diagnostic tests reviewed for today's visit: Lab Value Units Date High Low HB 11.8 g/dL 10/23/2024 17.0 13.0 HCT 34.4 % 10/23/2024 51.0 39.0 WBC 6.96 k/uL 10/23/2024 11.00 3.70 PLT 201 k/uL 10/23/2024 400 150 NA 137 mmol/L 10/23/2024 144 136 K 4.6 mmol/L 10/23/2024 5.1 3.7 GLUC 96 mg/dL 10/23/2024 99 74 BUN 21 mg/dL 10/23/2024 24 9 CREAT 1.01 mg/dL 10/23/2024 1.22 0.73 PTSEC No results within date range. INR No results within date range. APTT No results within date range. ALT <5 U/L 10/23/2024 54 10 AST 27 U/L 10/23/2024 40 14 TBILI <0.2 mg/dL 10/23/2024 1.3 0.2 TSH 3.280 mIU/L 10/10/2024 4.200 0.270 Lab Value Units Date High Low HCGQT No results within date range. UHCG No results within date range. HCG, BODY* No results within date range. Lab Value Units Date High Low ABORHD No results within date range. ABSCREEN No results within date range. Hemoglobin A1C (%) Date Value 02/24/2017 5.3 No results found for this or any previous visit (from the past 14037 hours). ARISCAT risk index interpretation 0 to 25 points: Low risk: 1.6% pulmonary complication rate 26 to 44 points: Intermediate risk: 13.3% pulmonary complication rate 45 to 123 points: High risk: 42.1% pulmonary complication rate The Following Tests/Procedures Have Been Initiated: No orders in [facility] for PAT visit by surgeon Assessment/Plan BPH with obstruction/lower urinary tract symptoms [N40.1, N13.8] PLAN Planned Procedure: Procedure(s): CYSTOSCOPY, RESECTION PROSTATE TRANSURETHRAL (N/A) I spent a total of 59 minutes on the date of the service which included preparing to see the patient, [id number] patient care, completing clinical documentation, obtaining and/or reviewing separately obtained history, performing a medically appropriate examination, counseling and educating the patient/family/caregiver, communicating results to the patient/family/caregiver, and care coordination (not separately reported). Instructions Given to Patient: Instructions located in the after visit summary. Patient given verbal and written preop instructions and voices comprehension and compliance. SIGNATURE: Navneet Tellez APRN.CNP PATIENT NAME: Zachary Short DATE: November 14, 2024 TIME: 8:53 AM PAGER/CONTACT #: [facility] 11-14-2024 History and physical note Images from the original note were not included. [facility] HISTORY AND PHYSICAL EXAMINATION SERVICE DATE: 11/14/2024 SERVICE TIME: 07:45 AM PRIMARY CARE PHYSICIAN: Ailin Pierson MD Assessment Patient has the following medical conditions which may affect jose francisco-operative course: Problem List Items Addressed This Visit Cardiovascular Mixed hyperlipidemia Current Assessment & Plan Managed by PCP and Controlled with meds. Cholesterol, Total (mg/dL) Date Value 04/19/2024 193 06/11/2020 170 Primary hypertension Current Assessment & Plan Managed by PCP and Controlled with meds. Last 14 BP Last 14 Encounter BP Readings: Date: BP: 10/23/2024 129/73 10/10/2024 102/61 09/18/2024 111/58 09/11/2024 114/66 09/04/2024 142/67 08/28/2024 116/63 08/28/2024 110/62 08/21/2024 100/67 08/14/2024 122/72 06/29/2024 118/69 06/26/2024 112/70 04/23/2024 118/78 01/05/2024 120/71 12/29/2023 120/78 Other Preop examination - Primary Current Assessment & Plan Patient has the following medical conditions which may affect jose francisco-operative course addressed in assessment and plan today Obesity, Class I, BMI 30-34.9 Current Assessment & Plan BMI 32 Pending ECHO from 10/10/2024 in [facility] ? Flagged for anesthesia review ANESTHESIA FINDINGS: Intubation History: No history of difficult intubation. No abnormal airway history Significant Anesthesia Considerations: none Airway History: No history of difficult airway No abnormal airway history Glover Activity Status Index: METS: Climb a flight of stairs or walk up a hill (5.50 METs) DASI Score: 5.5 Patient denies any chest pain or undue shortness of breath with the above physical activity. ARISCAT Score: Age: >80 Preoperative SpO2: >=96% Respiratory infection in the last month: No Preoperative anemia: No Surgical incision: peripheral Duration of surgery: <2 hrs Emergency procedure: No ARISCAT Score: 16 I - PHYSICAL EVALUATION AIRWAY Patient intubated: No. DENTAL Dental findings: missing tooth/teeth and poor dentition. Dentures, upper: partial. Dentures, lower: partial. II - ANESTHESIA PLAN Anesthetic Plan: general Beta Ayaz Monitoring Plan Post Procedure Analgesic Plan Prepared for Surgery: . Last OR October 2023 with no issues with anesthesia CONSULTS: Planned Anesthetic: general The Following Tests/Procedures Have Been Initiated: No orders of the defined types were placed in this encounter. REASON FOR VISIT: Zachary Short is a 79 year old male who is scheduled for Procedure(s): CYSTOSCOPY, RESECTION PROSTATE TRANSURETHRAL (N/A) at the request of Juan Hicks Jr., MD for routine H&P. My final recommendation will be communicated back to the requesting physician by way of shared medical record or letter. Subjective The patient has the following: COVID-19 Immunization Status Upcoming Covid-19 Vaccine () Postponed until 04/23/2025 04/23/2024 Postponed until 04/23/2025 by Ailin Pierson MD (Declined at this time) 03/30/2023 Postponed until 03/30/2024 by Roxana Reza MA (Declined at this time) 03/25/2022 Postponed until 03/25/2023 by Roxana Reza MA (Declined at this time) Only the first 3 history entries have been loaded, but more history exists. CHIEF COMPLAINT: The reason for this visit is to perform a comprehensive review of the patient's past medical history, assess their current health status and obtain any additional testing required based on anesthesia guidelines. We will also identify any potential anesthesia problems or contraindications to the planned procedure. HPI: Patient presents to [facility] for the preoperative exam for the above procedure. Patient with PMH prostate cancer on hormone therapy s/p radiation with last treatment 3 weeks ago. Chronic hx of BPH x 2 years. Patient recently was unable to empty his bladder with ultrasound showing blockage. Mahoney cath put in place. +UTI and was prescribed antibiotic treatments. Patient denies any other problems or concerns at this time. Risks and benefits of the procedure discussed by Surgeon and patient agreed to proceed with planned procedure. REVIEW OF SYSTEMS: General: No weight loss, malaise or fevers. Neurological: No history of TIA's, stroke, REMOTE RECRUITER tumor, impaired sensorium, hemiplegia, paraplegia or quadraplegia. No neurological symptoms or problems. Respiratory: No history of current cough or dyspnea, or pneumonia in the past 6 weeks. No history of respiratory/pulmonary symptoms or problems. Cardiovascular: Positive for: hyperlipidemia and hypertension GI: No history of GI symptoms or problems. No history of esophageal varices, recent ascites, or ETOH greater than 2 drinks per day. : See HPI. Positive for: self catheterization. Endocrine: No history of diabetes. Has not taken steroids within the past 30 days. No history of endocrinological symptoms or problems. Hematology: No history of bleeding or clotting disorder. Patient is not taking anti-coagulation or platelet medications. No history of hematological symptoms or problems. Oncology: Hx Prostate Ca Radiation 3 weeks from today Positive for: chemo within 30 days. Psych: No history of psychiatric symptoms or problems. Musculoskeletal: Negative for joint pain or swelling, back pain or muscle pain. Skin: Negative for lesions, rash and itching. Implanted Devices: Has implanted device Implants: Mahoney Cath, Joints. plates. 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 Only seasonal now PAST SURGICAL HISTORY Procedure Laterality Date ARTHROPLASTY HEMIARTHROPLASTY 09/10/2011 left shoulder Ari arthroplasty ARTHROPLASTY HEMIARTHROPLASTY 03/07/2012 left shoulder revision COLONOSCOPY & POLYPECTOMY 08/23/11 repeat 5 years COLONOSCOPY FLX DX W/COLLJ SPEC WHEN PFRMD 10/19/2016 Normal colonoscopy-family history-5 year follow-up NECK 07/17/2007 Anterior cervical discectomy allograft fusion on c-4,c-5,c-6 FAMILY HISTORY Problem Relation Age of Onset Colon Cancer Father Cancer Mother metastatic melanoma Social History Tobacco Use Smoking status: Never Passive exposure: Never Smokeless tobacco: Never Vaping Use Vaping status: Never Used Substance Use Topics Alcohol use: Yes Comment: socially, 3-4 beers/year Drug use: No Prior to Admission medications as of 11/14/24 0831 Medication Sig Last Dose Taking finasteride (PROSCAR) 5 mg tablet Take 1 tablet by mouth once daily. Yes colestipol (COLESTID) 1 gram tablet Take 1 tablet by mouth two times a day. Yes citalopram (CELEXA) 20 mg tablet Take 1 tablet by mouth once daily. Yes tamsulosin (FLOMAX) 0.4 mg Take 1 capsule by mouth two times a day. Yes oxyCODONE-acetaminophen 5-325 mg (PERCOCET) Take 1-2 tablets by mouth every 4 hours as needed (for pain). Yes azelastine 0.1% nasal spray Use 1 [place] in each nostril two times a day. Yes lisinopril-hydroCHLOROthiazide (ZESTORETIC) 10-12.5 mg per tablet Take 1 tablet by mouth once daily. Yes ergocalciferol 50,000 unit capsule (VITAMIN D2, DRISDOL) Take 1 capsule by mouth two times a week. TO BE TAKEN ORALLY DIRECTED. Take 1 tablet by mouth twice weekly [id number], then decrease to 1 tablet weekly. Yes polyethylene glycol 3350 (MIRALAX) 17 gram/dose powder Take 17 g by mouth once daily. Dissolve dose in 4 - 8 ounces of liquid and take as directed. Patient taking differently: Take 17 g by mouth as needed. Dissolve dose in 4 - 8 ounces of liquid and take as directed. Yes naproxen (NAPROSYN) 500 mg tablet Take 1 tablet by mouth two times a day as needed (for pain/inflammation). Take with food. Patient not taking: Reported on 06/26/2024 aspirin, enteric coated (ASPIRIN, ENTERIC COATED) 81 mg EC tablet Take 1 tablet by mouth once daily. Patient not taking: Reported on 06/26/2024 No medication comments found. ALLERGIES Allergen Reactions Ramelteon Mental Status Change Objective PHYSICAL EXAM: General: alert and oriented and healthy appearance. Pertinent negatives noted - not distressed. Skin: normal color, no rash or lesions. HEENT: pupils equal round and pupils reactive to light. Cardiovascular: regular rate and rhythm, normal S1 and S2, no rub, murmurs, or gallop. Respiratory: normal breath sounds, no wheezes or crackles. No chest wall deformity or tenderness. Abdomen: bowel sounds present and soft. Pertinent negatives noted - not tender. Extremities: no deformity, no edema or tenderness, no joint swelling or clubbing. Neurological: normal cognition and motor skills. Gait normal. No weakness or sensory deficit. PAIN ASSESSMENT: VITALS: BP 100/85 Pulse 67 Temp 96.8 Resp 18 Ht 5' 11 (1.80m) Wt 232 lb (105.2kg) SpO2 96% BMI 32.37 kg/(m^2). Diagnostic tests reviewed for today's visit: Lab Value Units Date High Low HB 11.8 g/dL 10/23/2024 17.0 13.0 HCT 34.4 % 10/23/2024 51.0 39.0 WBC 6.96 k/uL 10/23/2024 11.00 3.70 PLT 201 k/uL 10/23/2024 400 150 NA 137 mmol/L 10/23/2024 144 136 K 4.6 mmol/L 10/23/2024 5.1 3.7 GLUC 96 mg/dL 10/23/2024 99 74 BUN 21 mg/dL 10/23/2024 24 9 CREAT 1.01 mg/dL 10/23/2024 1.22 0.73 PTSEC No results within date range. INR No results within date range. APTT No results within date range. ALT <5 U/L 10/23/2024 54 10 AST 27 U/L 10/23/2024 40 14 TBILI <0.2 mg/dL 10/23/2024 1.3 0.2 TSH 3.280 mIU/L 10/10/2024 4.200 0.270 Lab Value Units Date High Low HCGQT No results within date range. UHCG No results within date range. HCG, BODY* No results within date range. Lab Value Units Date High Low ABORHD No results within date range. ABSCREEN No results within date range. Hemoglobin A1C (%) Date Value 02/24/2017 5.3 No results found for this or any previous visit (from the past 28814 hours). ARISCAT risk index interpretation 0 to 25 points: Low risk: 1.6% pulmonary complication rate 26 to 44 points: Intermediate risk: 13.3% pulmonary complication rate 45 to 123 points: High risk: 42.1% pulmonary complication rate The Following Tests/Procedures Have Been Initiated: No orders in [facility] for PAT visit by surgeon Assessment/Plan BPH with obstruction/lower urinary tract symptoms [N40.1, N13.8] PLAN Planned Procedure: Procedure(s): CYSTOSCOPY, RESECTION PROSTATE TRANSURETHRAL (N/A) I spent a total of 59 minutes on the date of the service which included preparing to see the patient, [id number] patient care, completing clinical documentation, obtaining and/or reviewing separately obtained history, performing a medically appropriate examination, counseling and educating the patient/family/caregiver, communicating results to the patient/family/caregiver, and care coordination (not separately reported). Instructions Given to Patient: Instructions located in the after visit summary. Patient given verbal and written preop instructions and voices comprehension and compliance. SIGNATURE: Navneet Tellez APRN.CNP PATIENT NAME: Zachary Short DATE: November 14, 2024 TIME: 8:53 AM PAGER/CONTACT #: documented in this encounter [facility] 11-14-2024 Note HNO ID: [id number] Author: NAVNEET TELLEZ APRN.CNP Service: ? Author Type: Nurse Practitioner Type: Progress Notes Filed: 11/14/2024 08:53 Note Text: RED DOT Patient has a pending ECHO but unsure why it hasn't been completed yet. Completed Radiation 3 weeks ago. He was told that the PAT department would take care of it CC ELMER please review with anesthesia regarding pending ECHO [facility] 11-14-2024 History of Present illness Narrative RED DOT Patient has a pending ECHO but unsure why it hasn't been completed yet. Completed Radiation 3 weeks ago. He was told that the PAT department would take care of it CC ELMER please review with anesthesia regarding pending ECHO documented in this encounter [facility] 11-08-2024 Instructions Navneet Tellez APRN.CNP - 11/08/2024 6:54 AM EDT PATIENT PREOPERATIVE INSTRUCTIONS Your surgeon has scheduled for your procedure at this surgery center: [facility]: [phone], [address], [place] [address] Please enter through the main entrance and proceed to the blue elevators. The surgery [facility] center is located to the left of the blue elevator. Please read below carefully for your personalized instructions. DATE FOR SURGERY : 11/28/24 Your surgeon's office will provide you with your ARRIVAL TIME for surgery. -If you have not received an arrival time by the afternoon before your surgery date, please follow up with your surgeon's office. - If you are scheduled for Tuesday surgery, please make sure you have your arrival time by Tuesday afternoon. Requirement for Vaccinations : 72-hour period between getting vaccine and date of surgery. Dietary Restrictions : Dietary Restrictions:Please Follow Surgeons office Restrictions First ALL OTHER PATIENTS - Nothing to eat after midnight. You may have 12 ounces of clear liquids ( water, Gatorade, apple juice, carbonated beverage, clear tea or black coffee) until 4 hours before your surgery. This is important because if you do, your surgery may have to be cancelled Blood Thinning Medications: - Stop NSAIDS (Ibuprofen, Advil, Aleve, Motrin, Celebrex, Mobic, etc.) 7 days before surgery, as directed by your surgeon. You may take Tylenol (Acetaminophen) or any of your pain medications that do not contain aspirin or NSAIDS as needed. IF YOU TAKE ANY OF THE FOLLOWING BLOOD THINNERS, PLEASE CONTACT YOUR SURGEON AND THE PHYSICIAN WHO PRESCRIBES IT FOR YOU IN ORDER TO GET PERIOPERATIVE INSTRUCTIONS SOON POSSIBLE. BLOOD THINNERS: Aspirin , Coumadin, Plavix, Eliquis, Pradaxa, Xarelto, Lovenox, Brilinta, Effient, Savaysa, Arixtra, etc - Stop Vitamin E, fish oil, multivitamins, Marijuana, CBD oil and other over the counter herbals and dietary supplements 7 days before surgery. -This would not apply to cancer patients who are prescribed Marinol or any other prescription form on marijuana or CBD. Medications: Approved medications to take the morning of surgery with a sip of water: BP, HCTZ, Heart, thyroid, psych, seizure, and pain medications excluding NSAIDS. HOLD - ANANDA inhibitors (Angiotensin-converting enzyme inhibitors) and ARBs (Angiotensin II receptor blockers) Day of surgery. If you take any medications for erectile dysfunction-Cialis (Tadalafil), Levitra, Staxyn (Vardenafil) Viagra (Sildenenafil please do not take these for 48 hours before surgery. It is recommended ALL Pre-Op patients and Endoscopy patients hold all GLP-1 agonists for 7 days prior to surgery. Insulin Medication Instructions: Please follow up with the provider that manages your Insulin and how to prepare you for surgery. Pre Surgery Med Instructions Medication instructions azelastine 0.1% nasal spray DO NOT TAKE THE MORNING OF SURGERY. citalopram (CELEXA) 20 mg tablet Continue as prescribed. colestipol (COLESTID) 1 gram tablet DO NOT TAKE THE MORNING OF SURGERY. ergocalciferol 50,000 unit capsule (VITAMIN D2, DRISDOL) Stop 7 days before surgery. finasteride (PROSCAR) 5 mg tablet DO NOT TAKE THE MORNING OF SURGERY. lisinopril-hydroCHLOROthiazide (ZESTORETIC) 10-12.5 mg per tablet Continue as prescribed. Takes at night oxyCODONE-acetaminophen 5-325 mg (PERCOCET) Continue as prescribed. polyethylene glycol 3350 (MIRALAX) 17 gram/dose powder DO NOT TAKE THE MORNING OF SURGERY. tamsulosin (FLOMAX) 0.4 mg DO NOT TAKE THE MORNING OF SURGERY. If you start any new medications after today's visit, please contact the surgeon's office. Pain Medications: Tylenol for pain as needed and if you are not allergic to. Important Reminders: - Candy, mints, gum and tobacco products are NOT permitted the morning of surgery. - Hearing aids, dentures and glasses may be worn the morning of surgery. - NO jewelry, body piercings, makeup, hairpins or contacts are to be worn the day of surgery. -Oral hygiene and a shower or bath (See Below ) is required the evening before or the morning of surgery. - NO lotion, creams, powders or deodorants on the skin the day of surgery -Wear loose, comfortable clothing that will accommodate bandages. -Your length of stay will be determined by your surgeon - You will need to have someone else (Family or friend) drive you home once discharged from the hospital. You are not allowed to drive yourself home after surgery. - YOU MUST HAVE A RESPONSIBLE GRINDING WHEEL INSPECTOR TAKE YOU HOME. A PARTS IDENTIFICATION TECHNICIAN, CAB OR UBER GRINDING WHEEL INSPECTOR CANNOT BE MADE A RESPONSIBLE GRINDING WHEEL INSPECTOR. - We recommend that a responsible person stays with you overnight to take care of you. - You cannot stay in a hotel alone after outpatient surgery. You will not be permitted to have your surgery, if you do not have someone to take care of you. Personal Belongings: - Leave ALL valuables and money at home or with family members. - You will need a form of ID and insurance card to check in the morning of surgery. If you develop symptoms such as a fever, cold, or flu, or have other changes to your health within TWO DAYS of scheduled surgery or the morning of surgery, please contact the surgery center above. Visitors to any [facility] facility: An individual who is sick should not visit. Visitors to patients with COVID-19 must follow these guidelines, which include wearing a mask, eye protection, gown and gloves. CCAG- Visitations are: Visitation hours are from 7 a.m. to 9 p.m. Pre- Surgery-Patients may have up to two visitors at a time. PACU-Patients may have up to 1-2 visitors at a time. Personal Belongings: -Please have your photo ID and insurance cards. -If you do not have a copy of advance directives on file with us, please bring a copy with you on the day of surgery. If you already have an Advance Directive, please fax a copy to [phone] or Mellissa HUNT at [phone] or email to for it to be added to your chart. If you do not have an Advance Directive, you can find the appropriate form and more information at [email or web address]. We recommend that you complete the Advance Directive form found on the website and bring it with you the day of your surgery. It can be witnessed and scanned into your chart that day. Navneet Tellez MBA, MSN, ANP-C 11/14/24 documented in this encounter [facility] 11-05-2024 History of Present illness Narrative Zachary Short presents for a Mahoney catheter change Assisted to exam table, placed into semi-atkins position.Prepped with Iodine and 200 mg/10ml Lidocaine Hydrochloride jelly, 2% instilled retrograde into urethra. Using sterile procedure inserted 16 Fr. Coude catheter into bladder, returned 10 cc's of yellow urine.Balloon inflated with 10 cc's sterile H2O, connected to closed leg bag drainage, secured mahoney catheter to upper right side thigh c a mahoney catheter stabilization device.Leg bag secured to upper right side thigh.Tolerated procedure well. Overnight bag supplied.Instructions were given to wipe collection bag-mahoney catheter connection with alcohol prior to disconnect for exchange of collection bags, secure catheter with paper tape or mahoney catheter stabilization device obtained from a medical supply store and to alternate inner upper thigh site daily and to secure collection bag to alternate inner upper thigh daily. Gregory Casarez RN documented in this encounter [facility] 11-05-2024 Note HNO ID: [id number] Author: GREGORY CASAREZ RN Service: ? Author Type: Registered Nurse Type: Progress Notes Filed: 11/05/2024 13:40 Note Text: Zachary Short presents for a Mahoney catheter change Assisted to exam table, placed into semi-atkins position.Prepped with Iodine and 200 mg/10ml Lidocaine Hydrochloride jelly, 2% instilled retrograde into urethra. Using sterile procedure inserted 16 Fr. Coude catheter into bladder, returned 10 cc's of yellow urine.Balloon inflated with 10 cc's sterile H2O, connected to closed leg bag drainage, secured mahoney catheter to upper right side thigh c a mahoney catheter stabilization device.Leg bag secured to upper right side thigh.Tolerated procedure well. Overnight bag supplied.Instructions were given to wipe collection bag-mahoney catheter connection with alcohol prior to disconnect for exchange of collection bags, secure catheter with paper tape or mahoney catheter stabilization device obtained from a medical supply store and to alternate inner upper thigh site daily and to secure collection bag to alternate inner upper thigh daily. Gregory Casarez RN [facility] 10-23-2024 Telephone encounter Note Per Dr Huffman, pt was called to see if UA with culture was completed on 10/17 not 08/29/24 when it had been ordered and if it wsa a straight cath as noted on report. Spoke with Zachary and he reports he came in for blood draw on 10/17 and was told he needed a urine culture too. He told the lab he had a mahoney cath and was told that it was ok and the specimen was drawn from the catheter bag. Pt does reports some occasional burning at tip but feels ok and reports urine looks clear in bag. This all reported to Dr Huffman who ordered pt to go to ER to have catheter changed since the culture on 10/17 showed Silke. Pt was notified and prefers to go to [facility] and will do so now. Dr Blanton is now caring for pt as radiation is complete. [facility] 10-23-[address] Huffman, pt was called to see if UA with culture was completed on 10/17 not 08/29/24 when it had been ordered and if it wsa a straight cath as noted on report. Spoke with Zachary and he reports he came in for blood draw on 10/17 and was told he needed a urine culture too. He told the lab he had a mahoney cath and was told that it was ok and the specimen was drawn from the catheter bag. Pt does reports some occasional burning at tip but feels ok and reports urine looks clear in bag. This all reported to Dr Huffman who ordered pt to go to ER to have catheter changed since the culture on 10/17 showed Silke. Pt was notified and prefers to go to [facility] and will do so now. Dr Blanton is now caring for pt as radiation is complete. documented in this encounter [facility] 10-15-2024 Note HNO ID: [id number] Author: ?, ?, ? Service: ? Author Type: ? Type: Progress Notes Filed: 10/18/2024 13:30 Note Text: I called and spoke to Zachary and scheduled him to have his PSA lab work done this week Tuesday10/17/24, he confirmed this date, time and location Ayah Jyotichema [facility] 10-15-2024 Note HNO ID: [id number] Author: VINCE HUFFMAN MD Service: ? Author Type: Physician Type: Progress Notes Filed: 10/18/2024 13:30 Note Text: AMBULATORY TELEPHONE VISIT Zachary Short has consented to this telephone encounter. Persons Present: patient Chief Complaint/Reason: Four week follow-up after radiation treatment. HPI: Stage IIA, T1c cN0, prostate adenocarcinoma with Lisbeth score 7 (3+4), grade group 2, and PSA 17.31 ng/mL. He is on hormonal therapy. He had diarrhea after radiation treatment and then subsequent anal discomfort. His diarrhea improved now. Data Reviewed: None. Assessment: (Z09) Radiotherapy follow-up (primary encounter diagnosis) (C61) Prostate cancer (HCC) He is recovering from acute radiation treatment GI effects. He will use Aquaphor cream around the anus area. Plan: He will see urology early next month for catheter changes. He told me that Dr. Blanton is considering TURP once he heals from radiation treatment so that Mahoney catheter can be removed. I will get PSA. Total Time Spent: 10 minutes Vince Huffman MD [facility] 10-11-2024 History of Present illness Narrative Zachary Short a 79 year old male, identified by name and date of , here for a 6 Month Lupron injection Hot Flashes:No Frequency: none Allergies reviewed: Yes Medication - prescribed and OTC reviewed and updated: Yes Latex allergy: no. PAIN SCALE: Is the patient having any pain? No 0 on a scale of 0 to 10 Injection Administration: 45 mg IM left upper arm. Lot Number:[id number] Expiration date:10/2025 Patient tolerated well. FOLLOW UP: Next Dose: 6 months documented in this encounter [facility] 10-11-2024 Note HNO ID: [id number] Author: GREGORY CASAREZ RN Service: ? Author Type: Registered Nurse Type: Progress Notes Filed: 10/26/2024 11:18 Note Text: Zachary Short a 79 year old male, identified by name and date of , here for a 6 Month Lupron injection Hot Flashes:No Frequency: none Allergies reviewed: Yes Medication - prescribed and OTC reviewed and updated: Yes Latex allergy: no. PAIN SCALE: Is the patient having any pain? No 0 on a scale of 0 to 10 Injection Administration: 45 mg IM left upper arm. Lot Number:[id number] Expiration date:10/2025 Patient tolerated well. FOLLOW UP: Next Dose: 6 months [facility] 10-10-2024 Note HNO ID: [id number] Author: AILIN PIERSON MD Service: ? Author Type: Physician Type: Progress Notes Filed: 10/10/2024 12:30 Note Text: Reason for Visit Follow up HPI Zachary is a 79-year-old male with a history of prostate cancer, presenting for follow-up after completing radiation therapy. Zachary recently completed radiation therapy targeting the prostate and is awaiting results, expected next week. He reports ongoing issues with a urinary catheter due to an enlarged prostate obstructing the urethra, causing nocturnal enuresis. He is scheduled for a second injection tomorrow to reduce testosterone levels and is considering a TURP procedure to alleviate urinary obstruction. He also reports diarrhea with associated burning pain, which he attributes to recent radiation therapy. Zachary has been hospitalized four times since April, twice for kidney infections and twice for falls resulting in fractures. He reports difficulty sleeping, averaging 2-3 hours per night, and is currently taking a sleep aid as needed. He also reports feelings of depression and is taking citalopram, which he feels is effective. He denies seeing a leisure travel agent recently. Social History Tobacco Use Smoking status: Never Passive exposure: Never Smokeless tobacco: Never Vaping Use Vaping status: Never Used Substance Use Topics Alcohol use: Yes Comment: socially, 3-4 beers/year Drug use: No Past medical history, appointments, medications, allergies reviewed. Pertinent Lab/Diagnostic Studies are reviewed and discussed today Current Outpatient Medications: tamsulosin (FLOMAX) 0.4 mg oxyCODONE-acetaminophen 5-325 mg (PERCOCET) azelastine 0.1% nasal spray lisinopril-hydroCHLOROthiazide (ZESTORETIC) 10-12.5 mg per tablet ergocalciferol 50,000 unit capsule (VITAMIN D2, DRISDOL) polyethylene glycol 3350 (MIRALAX) 17 gram/dose powder colestipol (COLESTID) 1 gram tablet citalopram (CELEXA) 20 mg tablet naproxen (NAPROSYN) 500 mg tablet aspirin, enteric coated (ASPIRIN, ENTERIC COATED) 81 mg EC tablet Current Facility-Administered Medications: [START ON 10/11/2024] leuprolide 45 mg injection (ELIGARD) Health Maintenance Depression Screening Anxiety Screening DTaP,Tdap,Td Vaccine(1 - Tdap) Shingrix Vaccine(1 of 2) RSV Vaccine(1 - 1-dose 75+ series) Advance Directive Discussion@ Review Of Systems Constitutional: (+) sleep disturbance Gastrointestinal: (+) diarrhea, (+) rectal/burning pain Genitourinary: (+) incomplete bladder emptying, (+) urinary leakage Neurological: (+) dizziness, (+) balance problem Psychiatric: (+) depression Physical Exam BP 102/61 Pulse 81 Ht 182.9 cm (6') Wt 108.5 kg (239 lb 3.2 oz) SpO2 98% BMI 32.44 kg/m? GENERAL: NAD, alert and oriented SKIN: unremarkable, no rash or skin lesions. HEAD: normocephalic EYES: PERRLA, EOMI, conjunctiva clear EARS: external ears normal, canals clear, TM's normal. LUNGS: Clear to auscultation bilaterally, no wheezes/rhonchi/rales. HEART: Regular rate and rhythm, no murmurs. No ectopy. EXTREMITIES: Normal, No deformities, No skin discoloration, No edema. NEURO: Awake, alert and oriented x3, cranial nerves II-XII grossly intact, normal gait, no involuntary motions Labs: Tests: (Today) EKG: - Premature Ventricular Complexes - Left Anterior Fascicular Block Imaging: (2 days ago) DEXA Scan: - 10-year risk for major hip fracture is low - Bone density within normal range Bone Scan: - Borderline extension beyond the prostate, no definitive infiltration identified CT Scans: - Fractures at left lateral 4th and 8th ribs - L4 vertebral fracture/disruption Assessment and Plan 1. Vitamin D deficiency (E55.9) - Ordered serum vitamin D level. 2. Medication monitoring encounter (Z51.81) Currently on citalopram for depression, considering dosage increase. - Performed EKG to assess cardiac status before increasing citalopram dosage. - Increased citalopram dosage. 3. Left anterior fascicular block (I44.4) Abnormal EKG (R94.31) Supraventricular premature beats (I49.1) Cardiac arrhythmia, unspecified cardiac arrhythmia type (I49.9) EKG shows left anterior fascicular block and supraventricular premature beats. - Ordered echocardiogram to further evaluate cardiac function. - Discussed potential need for cardiology referral based on echo results. 4. Hypomagnesemia (E83.42) - Ordered serum magnesium level. 5. Elevated TSH (R79.89) - Ordered serum TSH level. Voice recognition software was used to compose this office note. Please excuse any unintended typographical errors. Recording using [employer] software for draft documentation of the visit was discussed with the patient/authorized product support representative; all questions welcomed and answered. Patient/authorized product support representative agreed to proceed Ailin Pierson MD [facility] 10-10-2024 History of Present illness Narrative Reason for Visit Follow up HPI Zachary is a 79-year-old male with a history of prostate cancer, presenting for follow-up after completing radiation therapy. Zachary recently completed radiation therapy targeting the prostate and is awaiting results, expected next week. He reports ongoing issues with a urinary catheter due to an enlarged prostate obstructing the urethra, causing nocturnal enuresis. He is scheduled for a second injection tomorrow to reduce testosterone levels and is considering a TURP procedure to alleviate urinary obstruction. He also reports diarrhea with associated burning pain, which he attributes to recent radiation therapy. Zachary has been hospitalized four times since April, twice for kidney infections and twice for falls resulting in fractures. He reports difficulty sleeping, averaging 2-3 hours per night, and is currently taking a sleep aid as needed. He also reports feelings of depression and is taking citalopram, which he feels is effective. He denies seeing a leisure travel agent recently. Social History Tobacco Use Smoking status: Never Passive exposure: Never Smokeless tobacco: Never Vaping Use Vaping status: Never Used Substance Use Topics Alcohol use: Yes Comment: socially, 3-4 beers/year Drug use: No Past medical history, appointments, medications, allergies reviewed. Pertinent Lab/Diagnostic Studies are reviewed and discussed today Current Outpatient Medications: tamsulosin (FLOMAX) 0.4 mg oxyCODONE-acetaminophen 5-325 mg (PERCOCET) azelastine 0.1% nasal spray lisinopril-hydroCHLOROthiazide (ZESTORETIC) 10-12.5 mg per tablet ergocalciferol 50,000 unit capsule (VITAMIN D2, DRISDOL) polyethylene glycol 3350 (MIRALAX) 17 gram/dose powder colestipol (COLESTID) 1 gram tablet citalopram (CELEXA) 20 mg tablet naproxen (NAPROSYN) 500 mg tablet aspirin, enteric coated (ASPIRIN, ENTERIC COATED) 81 mg EC tablet Current Facility-Administered Medications: [START ON 10/11/2024] leuprolide 45 mg injection (ELIGARD) Health Maintenance Depression Screening Anxiety Screening DTaP,Tdap,Td Vaccine(1 - Tdap) Shingrix Vaccine(1 of 2) RSV Vaccine(1 - 1-dose 75+ series) Advance Directive Discussion@ Review Of Systems Constitutional: (+) sleep disturbance Gastrointestinal: (+) diarrhea, (+) rectal/burning pain Genitourinary: (+) incomplete bladder emptying, (+) urinary leakage Neurological: (+) dizziness, (+) balance problem Psychiatric: (+) depression Physical Exam BP 102/61 Pulse 81 Ht 182.9 cm (6') Wt 108.5 kg (239 lb 3.2 oz) SpO2 98% BMI 32.44 kg/m GENERAL: NAD, alert and oriented SKIN: unremarkable, no rash or skin lesions. HEAD: normocephalic EYES: PERRLA, EOMI, conjunctiva clear EARS: external ears normal, canals clear, TM's normal. LUNGS: Clear to auscultation bilaterally, no wheezes/rhonchi/rales. HEART: Regular rate and rhythm, no murmurs. No ectopy. EXTREMITIES: Normal, No deformities, No skin discoloration, No edema. NEURO: Awake, alert and oriented x3, cranial nerves II-XII grossly intact, normal gait, no involuntary motions Labs: Tests: (Today) EKG: - Premature Ventricular Complexes - Left Anterior Fascicular Block Imaging: (2 days ago) DEXA Scan: - 10-year risk for major hip fracture is low - Bone density within normal range Bone Scan: - Borderline extension beyond the prostate, no definitive infiltration identified CT Scans: - Fractures at left lateral 4th and 8th ribs - L4 vertebral fracture/disruption Assessment and Plan 1. Vitamin D deficiency (E55.9) - Ordered serum vitamin D level. 2. Medication monitoring encounter (Z51.81) Currently on citalopram for depression, considering dosage increase. - Performed EKG to assess cardiac status before increasing citalopram dosage. - Increased citalopram dosage. 3. Left anterior fascicular block (I44.4) Abnormal EKG (R94.31) Supraventricular premature beats (I49.1) Cardiac arrhythmia, unspecified cardiac arrhythmia type (I49.9) EKG shows left anterior fascicular block and supraventricular premature beats. - Ordered echocardiogram to further evaluate cardiac function. - Discussed potential need for cardiology referral based on echo results. 4. Hypomagnesemia (E83.42) - Ordered serum magnesium level. 5. Elevated TSH (R79.89) - Ordered serum TSH level. Voice recognition software was used to compose this office note. Please excuse any unintended typographical errors. Recording using [employer] software for draft documentation of the visit was discussed with the patient/authorized product support representative; all questions welcomed and answered. Patient/authorized product support representative agreed to proceed Ailin Pierson MD documented in this encounter [facility] 10-10-2024 Instructions Ailin Pierson MD - 10/10/2024 9:32 AM EDT We discussed your prostate cancer and related treatments: - You have completed your radiation therapy. The oncologist s office is expected to call you next week with results. Please follow up with them if you do not hear back. - You mentioned ongoing use of a catheter due to an enlarged prostate. The urologist has discussed the option of surgery to reduce the prostate size and improve bladder function. This would involve an overnight hospital stay. You may decide whether to proceed with this based on your preferences and discussions with the urologist. - Continue taking your prescribed medications, including the testosterone-suppressing injections. You are scheduled to receive your next injection tomorrow, along with a catheter change. We discussed your bone health: - Your recent bone density scan shows that your bone density is within the normal range, and your 10-year risk for major fractures is low. This is reassuring, and no further action is needed at this time. - Your history of fractures is likely related to cancer involvement in the bones. Continue to follow up with your oncologist regarding this. We discussed your bowel issues: - You are experiencing diarrhea and burning pain, which may be related to recent radiation therapy. I have prescribed Colestipol to help manage your diarrhea. Please take this as directed. - If your symptoms persist or worsen, let us know. We discussed your mental health: - You are currently taking Citalopram (Celexa) for depression. I have increased your dose to help manage your symptoms. Please take the new dose as prescribed. - If you experience any side effects or worsening of your mood, contact our office. We discussed your heart health: - Your EKG today showed some changes, including premature ventricular complexes and a left anterior fascicular block. To further evaluate your heart, I have ordered an echocardiogram. Please schedule this test as soon as possible. - At this time, I am not referring you to a leisure travel agent to avoid unnecessary stress. We will review the echocardiogram results and decide on next steps. We discussed your sleep issues: - You are having difficulty sleeping and are using sleeping pills occasionally. Continue to use them as needed, but let us know if your sleep does not improve or if you need additional support. We discussed your recent infections: - You recently completed a course of antibiotics for a urinary tract infection. Continue monitoring for any signs of infection, such as fever, chills, or worsening urinary symptoms, and let us know if they occur. Next steps: - Schedule an echocardiogram as ordered. - Follow up with your oncologist for radiation results and ongoing cancer care. - Follow up with your urologist for your next injection, catheter change, and any further decisions regarding prostate surgery. - Take all prescribed medications as directed, including Colestipol and the increased dose of Citalopram. - Contact our office if you, experience any new or worsening symptoms. documented in this encounter [facility] 10-08-2024 History of Present illness Narrative Radiology Service Progress Note PATIENT NAME: Zachary Short DATE OF SERVICE: October 08, 2024 TIME: 8:21 AM PATIENT IDENTITY VERIFICATION COMPLETED USING TWO (2) IDENTIFIERS: Name and Date of confirmed by patient verbally. FALL SCREENING: Has the patient had 2 falls in the last year or 1 fall with injury or currently using an Ambulatory Assistive Device (Walker, Cane, Wheelchair, Crutches, etc.)? Yes, Patient High Risk for Falls What interventions were put in place to prevent falls during this visit? Increased Observations by Caregivers PATIENT GENDER DATA: Assigned male at PATIENT RELEVANT IMPLANT DATA REVIEWED: Not Applicable PATIENT PRESENTS WITH AN IMPLANTABLE OR ATTACHED EXTENSION WORK INSTRUCTOR: No RADIOLOGY DEPARTMENT: Bone Density PERIPHERAL IV DATA: Not applicable SIGNED BY: RT Kylah(Sri) October 08, 2024 8:21 AM documented in this encounter [facility] 10-08-2024 Note HNO ID: [id number] Author: LUIS ANTONIO CHILD RT(R) Service: ? Author Type: Technologist Type: Progress Notes Filed: 10/08/2024 08:32 Note Text: Radiology Service Progress Note PATIENT NAME: Zachary Short DATE OF SERVICE: October 08, 2024 TIME: 8:21 AM PATIENT IDENTITY VERIFICATION COMPLETED USING TWO (2) IDENTIFIERS: Name and Date of confirmed by patient verbally. FALL SCREENING: Has the patient had 2 falls in the last year or 1 fall with injury or currently using an Ambulatory Assistive Device (Walker, Cane, Wheelchair, Crutches, etc.)? Yes, Patient High Risk for Falls What interventions were put in place to prevent falls during this visit? Increased Observations by Caregivers PATIENT GENDER DATA: Assigned male at PATIENT RELEVANT IMPLANT DATA REVIEWED: Not Applicable PATIENT PRESENTS WITH AN IMPLANTABLE OR ATTACHED EXTENSION WORK INSTRUCTOR: No RADIOLOGY DEPARTMENT: Bone Density PERIPHERAL IV DATA: Not applicable SIGNED BY: RT Kylah(R) October 08, 2024 8:21 AM [facility] 09-28-2024 Telephone encounter Note Patient advised per MGG-Urine cx + Abx sent Patient agreed, and verbalized understanding. Deanna Hogan MA [facility] 09-28-2024 Miscellaneous Notes Patient advised per MGG-Urine cx + Abx sent Patient agreed, and verbalized understanding. Deanna Hogan MA documented in this encounter [facility] 09-25-2024 Note HNO ID: [id number] Author: JUAN BLANTON JR, MD Service: ? Author Type: Physician Type: Progress Notes Filed: 09/25/2024 11:27 Note Text: ESTABLISHED PATIENT OFFICE VISIT HPI Zachary Short is a 79 year old male who presents sp trus bx 04/21. Did well after surgery. Gland 67cc. Path benign. Psa was 14.2 then and is now 12.17. no fever. No uti. Feels well otherwise. Options discussed. 10/11/23 - here to discuss psa and mri prostate. Psa now 17. Mri prostate 1 pirads 5 lesion. Gland 66 cc. No change in luts. Options discussed. 12/06/23 - sp mri fusion bx. Path on lesion showed G7(3+4). Rest of bx neg. Gland 66.8cc. mri had showed a ? Lesion in pelvic bone. No LAD. Options discussed. 01/03/24 - bone scan normal. Repeat psa 12. Options discussed. No fever. No uti. 09/25/24 - since last seen completed xrt. Dr. Soto gave lupron injection. Is now catheter dependent. Was getting UTI's with cic. Interested in becoming catheter independent. Options discussed. Would like to proceed with TURP LAB: Creatinine Date Value Ref Range Status 04/19/2024 0.98 0.73 - 1.22 mg/dL Final PSA (ng/mL) Date Value 06/25/2024 17.31 12/29/2023 12.32 08/18/2023 17.02 05/10/2023 12.17 03/25/2023 14.20 PSA Screening (ng/mL) Date Value 03/23/2022 9.18 10/06/2016 2.58 Glucose, Urine Date Value 08/28/2024 Negative 08/31/2011 Negative mg/dL Bilirubin, Urine (no units) Date Value 08/28/2024 Negative 08/31/2011 Negative Ketones, Urine (no units) Date Value 08/28/2024 Negative 08/31/2011 Negative Specific [place], Ur (no units) Date Value 08/28/2024 1.015 08/31/2011 1.020 Hemoglobin/Blood,Ur Date Value 08/28/2024 1+ 08/31/2011 Negative pH, Urine (no units) Date Value 08/28/2024 6.0 08/31/2011 5.5 Protein, Urine Date Value 08/28/2024 2+ 08/31/2011 Negative mg/dL Nitrites (no units) Date Value 08/28/2024 Negative 08/31/2011 Negative WBC, Urine (/HPF) Date Value 08/31/2011 3-5 MEDICATIONS: tamsulosin (FLOMAX) 0.4 mgTake 1 capsule by mouth two times a day.Disp: 180 capsuleRfl: 3 citalopram hydrobromide (CELEXA) 10 mg tabletTake 1 tablet by mouth once daily. Start with half a pill a week and then go to a full pillDisp: 90 tabletRfl: 3 oxyCODONE-acetaminophen 5-325 mg (PERCOCET)Take 1-2 tablets by mouth every 4 hours as needed (for pain).Disp: Rfl: azelastine 0.1% nasal sprayUse 1 [place] in each nostril two times a day.Disp: 30 mLRfl: 1 lisinopril-hydroCHLOROthiazide (ZESTORETIC) 10-12.5 mg per tabletTake 1 tablet by mouth once daily.Disp: 90 tabletRfl: 3 ergocalciferol 50,000 unit capsule (VITAMIN DR AquilinoISDOL)Take 1 capsule by mouth two times a week. TO BE TAKEN ORALLY DIRECTED. Take 1 tablet by mouth twice weekly [id number], then decrease to 1 tablet weekly.Disp: 8 capsuleRfl: 5 ramelteon (ROZEREM) 8 mg tabletTake 1 tablet by mouth daily at bedtime.Disp: 30 tabletRfl: 1 (Patient not taking: Reported on 09/25/2024) naproxen (NAPROSYN) 500 mg tabletTake 1 tablet by mouth two times a day as needed (for pain/inflammation). Take with food.Disp: 30 tabletRfl: 1 (Patient not taking: Reported on 06/26/2024) polyethylene glycol 3350 (MIRALAX) 17 gram/dose powderTake 17 g by mouth once daily. Dissolve dose in 4 - 8 ounces of liquid and take as directed.Disp: 510 gRfl: 0 (Patient not taking: Reported on 09/25/2024) aspirin, enteric coated (ASPIRIN, ENTERIC COATED) 81 mg EC tabletTake 1 tablet by mouth once daily.Disp: Rfl: (Patient not taking: Reported on 06/26/2024) REVIEW OF SYSTEMS Review of Systems Constitutional: Negative. Respiratory: Negative. Cardiovascular: Negative. Gastrointestinal: Negative. Genitourinary: Negative. Skin: Negative. Neurological: Negative. Psychiatric/Behavioral: Negative. 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 Only seasonal now FAMILY HISTORY Problem Relation Age of Onset Colon Cancer Father Cancer Mother metastatic melanoma SOCIAL HISTORY Social History Tobacco Use Smoking status: Never Passive exposure: Never Smokeless tobacco: Never Vaping Use Vaping status: Never Used Substance Use Topics Alcohol use: Yes Comment: socially, 3-4 beers/year Drug use: No PHYSICAL EXAMINATION General appearance: Well appearing, alert, in no acute distress, and well-hydrated, well nourished Skin: Skin color, texture, turgor normal, no suspicious rashes or lesions Respiratory:+ effort Cardiovascular: Not examined GI: Normal abdominal exam, Abdomen soft, non-tender. No masses, organomegaly Musculoskeletal: Negati (more content not included)... [facility] 09-25-[facility] History of Present illness Narrative ESTABLISHED PATIENT OFFICE VISIT HPI Zachary Short is a 79 year old male who presents sp trus bx 04/21. Did well after surgery. Gland 67cc. Path benign. Psa was 14.2 then and is now 12.17. no fever. No uti. Feels well otherwise. Options discussed. 10/11/23 - here to discuss psa and mri prostate. Psa now 17. Mri prostate 1 pirads 5 lesion. Gland 66 cc. No change in luts. Options discussed. 12/06/23 - sp mri fusion bx. Path on lesion showed G7(3+4). Rest of bx neg. Gland 66.8cc. mri had showed a ? Lesion in pelvic bone. No LAD. Options discussed. 01/03/24 - bone scan normal. Repeat psa 12. Options discussed. No fever. No uti. 09/25/24 - since last seen completed xrt. Dr. Soto gave lupron injection. Is now catheter dependent. Was getting UTI's with cic. Interested in becoming catheter independent. Options discussed. Would like to proceed with TURP LAB: Creatinine Date Value Ref Range Status 04/19/2024 0.98 0.73 - 1.22 mg/dL Final PSA (ng/mL) Date Value 06/25/2024 17.31 12/29/2023 12.32 08/18/2023 17.02 05/10/2023 12.17 03/25/2023 14.20 PSA Screening (ng/mL) Date Value 03/23/2022 9.18 10/06/2016 2.58 Glucose, Urine Date Value 08/28/2024 Negative 08/31/2011 Negative mg/dL Bilirubin, Urine (no units) Date Value 08/28/2024 Negative 08/31/2011 Negative Ketones, Urine (no units) Date Value 08/28/2024 Negative 08/31/2011 Negative Specific [place], Ur (no units) Date Value 08/28/2024 1.015 08/31/2011 1.020 Hemoglobin/Blood,Ur Date Value 08/28/2024 1+ 08/31/2011 Negative pH, Urine (no units) Date Value 08/28/2024 6.0 08/31/2011 5.5 Protein, Urine Date Value 08/28/2024 2+ 08/31/2011 Negative mg/dL Nitrites (no units) Date Value 08/28/2024 Negative 08/31/2011 Negative WBC, Urine (/HPF) Date Value 08/31/2011 3-5 MEDICATIONS: tamsulosin (FLOMAX) 0.4 mg^Take 1 capsule by mouth two times a day.^Disp: 180 capsule^Rfl: 3 citalopram hydrobromide (CELEXA) 10 mg tablet^Take 1 tablet by mouth once daily. Start with half a pill a week and then go to a full pill^Disp: 90 tablet^Rfl: 3 oxyCODONE-acetaminophen 5-325 mg (PERCOCET)^Take 1-2 tablets by mouth every 4 hours as needed (for pain).^Disp: ^Rfl: azelastine 0.1% nasal spray^Use 1 [place] in each nostril two times a day.^Disp: 30 mL^Rfl: 1 lisinopril-hydroCHLOROthiazide (ZESTORETIC) 10-12.5 mg per tablet^Take 1 tablet by mouth once daily.^Disp: 90 tablet^Rfl: 3 ergocalciferol 50,000 unit capsule (VITAMIN D2, DRISDOL)^Take 1 capsule by mouth two times a week. TO BE TAKEN ORALLY DIRECTED. Take 1 tablet by mouth twice weekly [id number], then decrease to 1 tablet weekly.^Disp: 8 capsule^Rfl: 5 ramelteon (ROZEREM) 8 mg tablet^Take 1 tablet by mouth daily at bedtime.^Disp: 30 tablet^Rfl: 1 (Patient not taking: Reported on 09/25/2024) naproxen (NAPROSYN) 500 mg tablet^Take 1 tablet by mouth two times a day as needed (for pain/inflammation). Take with food.^Disp: 30 tablet^Rfl: 1 (Patient not taking: Reported on 06/26/2024) polyethylene glycol 3350 (MIRALAX) 17 gram/dose powder^Take 17 g by mouth once daily. Dissolve dose in 4 - 8 ounces of liquid and take as directed.^Disp: 510 g^Rfl: 0 (Patient not taking: Reported on 09/25/2024) aspirin, enteric coated (ASPIRIN, ENTERIC COATED) 81 mg EC tablet^Take 1 tablet by mouth once daily.^Disp: ^Rfl: (Patient not taking: Reported on 06/26/2024) REVIEW OF SYSTEMS Review of Systems Constitutional: Negative. Respiratory: Negative. Cardiovascular: Negative. Gastrointestinal: Negative. Genitourinary: Negative. Skin: Negative. Neurological: Negative. Psychiatric/Behavioral: Negative. 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 Only seasonal now FAMILY HISTORY Problem Relation Age of Onset Colon Cancer Father Cancer Mother metastatic melanoma SOCIAL HISTORY Social History Tobacco Use Smoking status: Never Passive exposure: Never Smokeless tobacco: Never Vaping Use Vaping status: Never Used Substance Use Topics Alcohol use: Yes Comment: socially, 3-4 beers/year Drug use: No PHYSICAL EXAMINATION General appearance: Well appearing, alert, in no acute distress, and well-hydrated, well nourished Skin: Skin color, texture, turgor normal, no suspicious rashes or lesions Respiratory:+ effort Cardiovascular: Not examined GI: Normal abdominal exam, Abdomen soft, non-tender. No masses, organomegaly Musculoskeletal: Negative Neuro: Negative Genitourinary: not examined Impression: (N40.1, N13.8) BPH with obstruction/lower urinary tract symptoms (primary encounter diagnosis) (C61) Prostate cancer (HCC) (N39.0) Recurrent UTI Plan: cysto, transurethral resection of the prostate All r/b/a of surgery discussed, infection, bleeding, damage to nearby structures, repeat surgery, nodular regrowth, bladder neck contracture, incontinence, impotence, lower urinary tract symptoms, repeat catheterizations. , heart attack, stroke, deep vein thrombosis, pulmonary embolus. Patient verbalized understanding and agrees to proceed. Eligard injection next month - will continue this for now, consider stopping in the future Cath change today with urine cx Psa checks after surgery Juan Blanton Jr, MD 09/25/2024 documented in this encounter [facility] 09-18-2024 Note HNO ID: [id number] Author: VINCE HUFFMAN MD Service: ? Author Type: Physician Type: Progress Notes Filed: 09/18/2024 14:30 Note Text: Radiation Oncology - On Treatment Review (OTR) Note PATIENT NAME: Zachary Short PATIENT DIAGNOSIS: Stage IIA, T1c cN0, prostate adenocarcinoma with Nordheim score 7 (3+4), grade group 2, and PSA 17.31 ng/mL. He is on hormonal therapy. COURSE: definitive AREA TREATED: Pelvis/prostate/SV CURRENT DOSE: 7000 cGy in 28 fx PLANNED DOSE: 7000 cGy in 28 fx SUBJECTIVE: He is doing well without any specific new complaints. EXAM: KPS: 90 General Appearance: Alert and oriented. No acute distress. IMAGING/LAB RESULTS: None Treatment chart checked: Yes Patient treatment site reviewed and verified:Yes CBCTs reviewed and current:Yes Medications started: None ASSESSMENT/PLAN: Clinically stable. No signs of toxicity. He finished radiation treatment today as planned. Follow-up with me in four weeks. Vince Huffman MD [facility] 09-18-2024 History of Present illness Narrative Radiation Oncology - On Treatment Review (OTR) Note PATIENT NAME: Zachary Short PATIENT DIAGNOSIS: Stage IIA, T1c cN0, prostate adenocarcinoma with Lisbeth score 7 (3+4), grade group 2, and PSA 17.31 ng/mL. He is on hormonal therapy. COURSE: definitive AREA TREATED: Pelvis/prostate/SV CURRENT DOSE: 7000 cGy in 28 fx PLANNED DOSE: 7000 cGy in 28 fx SUBJECTIVE: He is doing well without any specific new complaints. EXAM: KPS: 90 General Appearance: Alert and oriented. No acute distress. IMAGING/LAB RESULTS: None Treatment chart checked: Yes Patient treatment site reviewed and verified:Yes CBCTs reviewed and current:Yes Medications started: None ASSESSMENT/PLAN: Clinically stable. No signs of toxicity. He finished radiation treatment today as planned. Follow-up with me in four weeks. Vince Huffman MD Radiation Therapy - Nursing Note (OTV) PATIENT NAME: Zachary Short PATIENT September 18, 2024 [facility] FACILITY/LOCATION: [facility] NOTE TYPE: PROSTATE - MALE PELVIS Subjective Data some diarrhea 2 times a day, afraid to take imodium Additional Data Do you want to see a Physical Science Technician? No Status: Patient is male Stress Scale: On a scale of 0 to 10, what number best describes how much distress you have experienced in the past week?(0 being no distress and 10 being extreme distress) 2 Social work notified: Pt denied need to see addiction social worker at this time. Nursing Assessment Fatigue: moderate; causing difficulty performing some activities Appetite: good Nutritional Intake: Regular oral intake. Weight Gain/Loss: Not applicable Ambulatory weight history: Last 6 Encounter Wt Readings: Date: Wt: 08/28/2024 107 kg (236 lb) 06/29/2024 110.2 kg (243 lb) 06/26/2024 110.7 kg (244 lb) 05/16/2024 109.3 kg (241 lb) 04/23/2024 111 kg (244 lb 11.4 oz) 01/05/2024 113.4 kg (250 lb) Nausea:None Vomiting: None Bowel Function: diarrhea 1 - abdominal cramping; two or less soft or liquid bowel Erythema/Hyperpigmentation:none Desquamation:none Rash:none Skin Care: Aquaphor Skin Sensation: mild itching Focused Assessment PROSTATE - MALE PELVIS: Rectal bleeding: No. Rectal pain: No. Bladder function: no problems. Urinary frequency (D/N): mahoney/mahoney clear yellow. SIGNED by: Mali Fernández RN documented in this encounter [facility] 09-18-2024 Note HNO ID: [id number] Author: MALI FERNÁNDEZ RN Service: ? Author Type: Registered Nurse Type: Progress Notes Filed: 09/18/2024 14:20 Note Text: Written discharge instructions given and reviewed with patient. Patient verbalizes understanding. Encouraged to call with any questions or concerns. Instruction for 4 week phone call follow up appointment given by Dr. Huffman. [facility] 09-18-2024 History of Present illness Narrative Written discharge instructions given and reviewed with patient. Patient verbalizes understanding. Encouraged to call with any questions or concerns. Instruction for 4 week phone call follow up appointment given by Dr. Huffman. documented in this encounter [facility] 09-18-2024 Note HNO ID: [id number] Author: MALI FERNÁNDEZ RN Service: ? Author Type: Registered Nurse Type: Progress Notes Filed: 09/18/2024 14:30 Note Text: Radiation Therapy - Nursing Note (OTV) PATIENT NAME: Zachary Short PATIENT September 18, 2024 [facility] FACILITY/LOCATION: [facility] NOTE TYPE: PROSTATE - MALE PELVIS Subjective Data some diarrhea 2 times a day, afraid to take imodium Additional Data Do you want to see a Physical Science Technician? No Status: Patient is male Stress Scale: On a scale of 0 to 10, what number best describes how much distress you have experienced in the past week?(0 being no distress and 10 being extreme distress) 2 Social work notified: Pt denied need to see addiction social worker at this time. Nursing Assessment Fatigue: moderate; causing difficulty performing some activities Appetite: good Nutritional Intake: Regular oral intake. Weight Gain/Loss: Not applicable Ambulatory weight history: Last 6 Encounter Wt Readings: Date: Wt: 08/28/2024 107 kg (236 lb) 06/29/2024 110.2 kg (243 lb) 06/26/2024 110.7 kg (244 lb) 05/16/2024 109.3 kg (241 lb) 04/23/2024 111 kg (244 lb 11.4 oz) 01/05/2024 113.4 kg (250 lb) Nausea:None Vomiting: None Bowel Function: diarrhea 1 - abdominal cramping; two or less soft or liquid bowel Erythema/Hyperpigmentation:none Desquamation:none Rash:none Skin Care: Aquaphor Skin Sensation: mild itching Focused Assessment PROSTATE - MALE PELVIS: Rectal bleeding: No. Rectal pain: No. Bladder function: no problems. Urinary frequency (D/N): mahoney/mahoney clear yellow. SIGNED by: Mali Fernández RN [facility] 09-18-2024 Note Education (RADTWS) HANZACHARY PATEL ([id number]) 1945 M Date Time Provider Department 09/18/24 VINCE HUFFMAN Reason for Visit: Patient Education [91] During your visit today, we recorded the following information about you: Allergies As of Date: 09/18/2024 (No Known Allergies) Date Reviewed: 09/18/2024 Reviewed by: Mali Fernández RN - Fully Assessed Prescriptions as of 09/18/2024 - citalopram hydrobromide (CELEXA) 10 mg tablet Take 1 tablet by mouth once daily. Start with half a pill a week and then go to a full pill - oxyCODONE-acetaminophen 5-325 mg (PERCOCET) Take 1-2 tablets by mouth every 4 hours as needed (for pain). - ramelteon (ROZEREM) 8 mg tablet Take 1 tablet by mouth daily at bedtime. - azelastine 0.1% nasal spray Use 1 [place] in each nostril two times a day. - lisinopril-hydroCHLOROthiazide (ZESTORETIC) 10-12.5 mg per tablet Take 1 tablet by mouth once daily. - tamsulosin (FLOMAX) 0.4 mg Take 1 capsule by mouth daily at bedtime. - ergocalciferol 50,000 unit capsule (VITAMIN D2, DRISDOL) Take 1 capsule by mouth two times a week. TO BE TAKEN ORALLY DIRECTED. Take 1 tablet by mouth twice weekly x8qoixs, then decrease to 1 tablet weekly. - naproxen (NAPROSYN) 500 mg tablet Take 1 tablet by mouth two times a day as needed (for pain/inflammation). Take with food. - polyethylene glycol 3350 (MIRALAX) 17 gram/dose powder Take 17 g by mouth once daily. Dissolve dose in 4 - 8 ounces of liquid and take as directed. - aspirin, enteric coated (ASPIRIN, ENTERIC COATED) 81 mg EC tablet Take 1 tablet by mouth once daily. Encounter Status:Closed by FERNÁNDEZMALI ADRIAN on 09/18/24 [facility] 09-18-2024 Note HNO ID: [id number] Author: VINCE HUFFMAN MD Service: Radiation Oncology Author Type: Physician Type: Progress Notes Filed: 09/21/2024 10:07 Note Text: ZACHARY SHORT [id number] : 1945 09/18/2024 [facility] Department of Radiation Oncology RADIATION ONCOLOGY - COMPLETION NOTE DATE OF SIMULATION: 08/02/24 DATES OF TREATMENT: 08/09/24 - 09/18/24 UNIT: W_TRUEBEAM AREA TREATED: Prostate/pelvis/SV DISEASE: Stage IIA, T1c cN0, prostate adenocarcinoma with Nordheim score 7 (3+4), grade group 2, and PSA 17.31 ng/mL. He is on hormonal therapy. DELIVERED DOSE: 7000 cGy in 28 fractions treating to the 97.6% isodose line with 10 MV and 3 vmat hoskins. ELAPSED TIME: 40 days. TOLERANCE/ RESPONSE: He had UTI and was treated with antibiotics. REMARKS: He tolerated radiation treatment well overall. He has Mahoney catheter managed by his urologist. Four week follow-up with az. Staff Physician VINCE HUFFMAN M.D. / 0:07 AM Electronically Signed cc: Ailin Pierson [address] [place] [address] Juan [place] [id number] [place] [address] 09-11-2024 Note HNO ID: [id number] Author: VINCE HUFFMAN MD Service: ? Author Type: Physician Type: Progress Notes Filed: 09/11/2024 14:23 Note Text: Radiation Oncology - On Treatment Review (OTR) Note PATIENT NAME: Zachary Short PATIENT DIAGNOSIS: Stage IIA, T1c cN0, prostate adenocarcinoma with Nordheim score 7 (3+4), grade group 2, and PSA 17.31 ng/mL. He is on hormonal therapy. COURSE: definitive AREA TREATED: Pelvis/prostate/SV CURRENT DOSE: 5750 cGy in 23 fx PLANNED DOSE: 7000 cGy in 28 fx SUBJECTIVE: He is doing well without any specific new complaints. EXAM: KPS: 90 General Appearance: Alert and oriented. No acute distress. IMAGING/LAB RESULTS: None Treatment chart checked: Yes Patient treatment site reviewed and verified:Yes CBCTs reviewed and current:Yes Medications started: None ASSESSMENT/PLAN: Clinically stable. No signs of toxicity. Continue radiation treatment as planned. Vince Huffman MD [facility] 09-11-2024 History of Present illness Narrative Radiation Oncology - On Treatment Review (OTR) Note PATIENT NAME: Zachary Short PATIENT DIAGNOSIS: Stage IIA, T1c cN0, prostate adenocarcinoma with Lisbeth score 7 (3+4), grade group 2, and PSA 17.31 ng/mL. He is on hormonal therapy. COURSE: definitive AREA TREATED: Pelvis/prostate/SV CURRENT DOSE: 5750 cGy in 23 fx PLANNED DOSE: 7000 cGy in 28 fx SUBJECTIVE: He is doing well without any specific new complaints. EXAM: KPS: 90 General Appearance: Alert and oriented. No acute distress. IMAGING/LAB RESULTS: None Treatment chart checked: Yes Patient treatment site reviewed and verified:Yes CBCTs reviewed and current:Yes Medications started: None ASSESSMENT/PLAN: Clinically stable. No signs of toxicity. Continue radiation treatment as planned. Vince Huffman MD Radiation Therapy - Nursing Note (OTV) PATIENT NAME: Zachary Short PATIENT September 11, 2024 [facility] FACILITY/LOCATION: [place] [facility] NOTE TYPE: PROSTATE - MALE PELVIS Subjective Data some fatigue, a little diarrhea has not taken imodium, seems to alternate with constipation Additional Data Do you want to see a Physical Science Technician? No Status: Patient is male Stress Scale: On a scale of 0 to 10, what number best describes how much distress you have experienced in the past week?(0 being no distress and 10 being extreme distress) 3 Social work notified: Pt denied need to see addiction social worker at this time. Nursing Assessment Fatigue: increased fatigue over baseline but not altering normal activities Appetite: good Nutritional Intake: Regular oral intake. Weight Gain/Loss: Not applicable Ambulatory weight history: Last 6 Encounter Wt Readings: Date: Wt: 08/28/2024 107 kg (236 lb) 06/29/2024 110.2 kg (243 lb) 06/26/2024 110.7 kg (244 lb) 05/16/2024 109.3 kg (241 lb) 04/23/2024 111 kg (244 lb 11.4 oz) 01/05/2024 113.4 kg (250 lb) Nausea:None Vomiting: None Bowel Function: alternates with normal to constipation to diarrhea Erythema/Hyperpigmentation:none Desquamation:none Rash:none Skin Care: Aquaphor Skin Sensation: Within Normal Limits Focused Assessment PROSTATE - MALE PELVIS: Rectal bleeding: No. Rectal pain: Minimal. Bladder function: no problems. Urinary frequency (D/N): has mahoney/clear pale yellow. SIGNED by: Mali Fernández RN documented in this encounter [facility] 09-11-2024 Note HNO ID: [id number] Author: MALI FERNÁNDEZ RN Service: ? Author Type: Registered Nurse Type: Progress Notes Filed: 09/11/2024 14:23 Note Text: Radiation Therapy - Nursing Note (OTV) PATIENT NAME: Zachary Short PATIENT September 11, 2024 [facility] FACILITY/LOCATION: [place] [facility] NOTE TYPE: PROSTATE - MALE PELVIS Subjective Data some fatigue, a little diarrhea has not taken imodium, seems to alternate with constipation Additional Data Do you want to see a Physical Science Technician? No Status: Patient is male Stress Scale: On a scale of 0 to 10, what number best describes how much distress you have experienced in the past week?(0 being no distress and 10 being extreme distress) 3 Social work notified: Pt denied need to see addiction social worker at this time. Nursing Assessment Fatigue: increased fatigue over baseline but not altering normal activities Appetite: good Nutritional Intake: Regular oral intake. Weight Gain/Loss: Not applicable Ambulatory weight history: Last 6 Encounter Wt Readings: Date: Wt: 08/28/2024 107 kg (236 lb) 06/29/2024 110.2 kg (243 lb) 06/26/2024 110.7 kg (244 lb) 05/16/2024 109.3 kg (241 lb) 04/23/2024 111 kg (244 lb 11.4 oz) 01/05/2024 113.4 kg (250 lb) Nausea:None Vomiting: None Bowel Function: alternates with normal to constipation to diarrhea Erythema/Hyperpigmentation:none Desquamation:none Rash:none Skin Care: Aquaphor Skin Sensation: Within Normal Limits Focused Assessment PROSTATE - MALE PELVIS: Rectal bleeding: No. Rectal pain: Minimal. Bladder function: no problems. Urinary frequency (D/N): has mahoney/clear pale yellow. SIGNED by: Mali Fernández RN [facility] 09-04-2024 History of Present illness Narrative Radiation Oncology - On Treatment Review (OTR) Note PATIENT NAME: Zachary Short PATIENT DIAGNOSIS: Stage IIA, T1c cN0, prostate adenocarcinoma with Nordheim score 7 (3+4), grade group 2, and PSA 17.31 ng/mL. He is on hormonal therapy. COURSE: definitive AREA TREATED: Pelvis/prostate/SV CURRENT DOSE: 4500 cGy in 18 fx PLANNED DOSE: 7000 cGy in 28 fx SUBJECTIVE: He is doing well without any specific new complaints. He had UTI and was treated with antibiotics. He feels a lot better and he denies any pelvic pain. He had Mahoney catheter now and he reports that his urine is clean now. He will talk to his urologist to see when his Mahoney catheter can come out. EXAM: KPS: 90 General Appearance: Alert and oriented. No acute distress. IMAGING/LAB RESULTS: None Treatment chart checked: Yes Patient treatment site reviewed and verified:Yes CBCTs reviewed and current:Yes Medications started: None ASSESSMENT/PLAN: Clinically stable. No signs of toxicity. Continue radiation treatment as planned. Vince Huffman MD Radiation Therapy - Nursing Note (OTV) PATIENT NAME: Zachary Short PATIENT September 04, 2024 [facility] FACILITY/LOCATION: [place] [facility]UR[facility] NOTE TYPE: PROSTATE - MALE PELVIS Subjective Data has mahoney in, has finished Keflex has also finished pyridium Additional Data Do you want to see a Physical Science Technician? No Status: Patient is male Stress Scale: On a scale of 0 to 10, what number best describes how much distress you have experienced in the past week?(0 being no distress and 10 being extreme distress) 0 Social work notified: Pt denied need to see addiction social worker at this time. Nursing Assessment Fatigue: increased fatigue over baseline but not altering normal activities Appetite: good Nutritional Intake: Regular oral intake. Weight Gain/Loss: Not applicable Ambulatory weight history: Last 6 Encounter Wt Readings: Date: Wt: 08/28/2024 107 kg (236 lb) 06/29/2024 110.2 kg (243 lb) 06/26/2024 110.7 kg (244 lb) 05/16/2024 109.3 kg (241 lb) 04/23/2024 111 kg (244 lb 11.4 oz) 01/05/2024 113.4 kg (250 lb) Nausea:None Vomiting: None Bowel Function: normal bowel movements Erythema/Hyperpigmentation:none Desquamation:none Rash:none Skin Care: Aquaphor Skin Sensation: Within Normal Limits Focused Assessment PROSTATE - MALE PELVIS: Rectal bleeding: No. Rectal pain: No. Bladder function: no problems, retention. Urinary frequency (D/N): Pt has mahoney in and it is clamped for radiation treatment, pt reports urine is clear, /mahoney. SIGNED by: Mali Fernández RN documented in this encounter [facility] 09-04-2024 Note HNO ID: [id number] Author: VINCE HUFFMAN MD Service: ? Author Type: Physician Type: Progress Notes Filed: 09/04/2024 14:33 Note Text: Radiation Oncology - On Treatment Review (OTR) Note PATIENT NAME: Zachary Short PATIENT DIAGNOSIS: Stage IIA, T1c cN0, prostate adenocarcinoma with Lisbeth score 7 (3+4), grade group 2, and PSA 17.31 ng/mL. He is on hormonal therapy. COURSE: definitive AREA TREATED: Pelvis/prostate/SV CURRENT DOSE: 4500 cGy in 18 fx PLANNED DOSE: 7000 cGy in 28 fx SUBJECTIVE: He is doing well without any specific new complaints. He had UTI and was treated with antibiotics. He feels a lot better and he denies any pelvic pain. He had Mahoney catheter now and he reports that his urine is clean now. He will talk to his urologist to see when his Mahoney catheter can come out. EXAM: KPS: 90 General Appearance: Alert and oriented. No acute distress. IMAGING/LAB RESULTS: None Treatment chart checked: Yes Patient treatment site reviewed and verified:Yes CBCTs reviewed and current:Yes Medications started: None ASSESSMENT/PLAN: Clinically stable. No signs of toxicity. Continue radiation treatment as planned. Vince Huffman MD [facility] 09-04-2024 Note HNO ID: [id number] Author: MALI FERNÁNDEZ RN Service: ? Author Type: Registered Nurse Type: Progress Notes Filed: 09/04/2024 14:33 Note Text: Radiation Therapy - Nursing Note (OTV) PATIENT NAME: Zachary Short PATIENT September 04, 2024 [facility] FACILITY/LOCATION: [facility] NOTE TYPE: PROSTATE - MALE PELVIS Subjective Data has mahoney in, has finished Keflex has also finished pyridium Additional Data Do you want to see a Physical Science Technician? No Status: Patient is male Stress Scale: On a scale of 0 to 10, what number best describes how much distress you have experienced in the past week?(0 being no distress and 10 being extreme distress) 0 Social work notified: Pt denied need to see addiction social worker at this time. Nursing Assessment Fatigue: increased fatigue over baseline but not altering normal activities Appetite: good Nutritional Intake: Regular oral intake. Weight Gain/Loss: Not applicable Ambulatory weight history: Last 6 Encounter Wt Readings: Date: Wt: 08/28/2024 107 kg (236 lb) 06/29/2024 110.2 kg (243 lb) 06/26/2024 110.7 kg (244 lb) 05/16/2024 109.3 kg (241 lb) 04/23/2024 111 kg (244 lb 11.4 oz) 01/05/2024 113.4 kg (250 lb) Nausea:None Vomiting: None Bowel Function: normal bowel movements Erythema/Hyperpigmentation:none Desquamation:none Rash:none Skin Care: Aquaphor Skin Sensation: Within Normal Limits Focused Assessment PROSTATE - MALE PELVIS: Rectal bleeding: No. Rectal pain: No. Bladder function: no problems, retention. Urinary frequency (D/N): Pt has mahoney in and it is clamped for radiation treatment, pt reports urine is clear, /mahoney. SIGNED by: Mali Fernández RN [facility] 08-29-2024 Radiology Diagnostic study note [facility] Imaging Services [address] [place], [place] [id number] Abdomen/Pelvis without Cont MR#: [id number] Acct: [id number] Name: ZACHARY SHORT Rep #: [id number] : 1945 M 79 From: Bonny Austin MD PCP: Dr. Ailin Pierson MD Status: PRE E R Study:Abdomen/Pelvis without Cont Date of Exa m: 08/29/24 Exam# [id number] Ordering Dr: Leatha Fajardo DO PROCEDURE: ABDOMEN/PELVIS WITHOUT CONT 08/29/2024 REASON FOR EXAM: LOWER ABDOMINAL PAIN, HISTORY OF KIDNEY STONES TECHNIQUE: CT abdomen and pelvis was performed with out IV contrast. Multiplanar reformatswere generated. One or more dose reduction techniques were used (e.g., Automated exposure control, adjustment of the mA and/or kV according to patient size, use of iterative reconstruction technique). PATIENT PREPARATION: Per protocol ORAL CONTRAST TYPE: None. COMPARISON: 06/19/2024 FINDINGS: Exam limited by beam hardening artifact related to the arms which were positioned at the sides rather than above the head. Note also that evaluation of the abdominopelvic viscera, vasculature, and remaining soft tissues is limited in the absence of IV contrast. Lung bases: Multivessel coronary atherosclerosis and/or stents. Aortic annular calcification. Hiatal hernia. Atelectasis/scarring. Similar fissural likely intrapulmonary lymph nodes in theRIGHT lung base. Liver: Unremarkable. Spleen: Unremarkable. Gallbladder: Unremarkable. Pancreas: Unremarkable. Adrenals: Unremarkable. Kidneys: LEFT renal cyst. No hydronephrosis or ureteral calculus identified. Mild nonspecific stranding along the mid to distal course of the RIGHT ureter and RIGHT pelvic sidewall, slightly increased from prior. Bowel: Mild sigmoid diverticulosis.. Normal caliber appendix. Lymph nodes: Unremarkable. Vasculature: Atherosclerosis. Tortuous aortoiliac vessels. Mild infrarenal abdominal aortic ectasia to 2.6 x 2.4 cm. Peritoneum: Unremarkable. Bladder: Decompressed by Mahoney catheter and suboptimally evaluated. Marked bladder wall thickening disproportionate to the degree of underdistention. Perivesicular stranding. Reproductive Organs: Prostatomegaly. Body Wall: Tiny fat containing umbilical hernia.. Bones: Multilevel spondylosis. Findings suggestive of early diffuse idiopathic skeletal hyperostosis. Multilevel spinal canal stenoses are suboptimally characterized by CT. Trace lumbar dextroscoliosis. Degenerative changes of the hips and SI joints including anterior ankylosis. Subacute appearing LEFT transverse process fractures from L1-L3. Subacute appearing nondisplaced fractures of LEFT posterior ribs 11-12. CT/Abdomen/Pelvis without Cont IMPRESSION: 1. Findings suggestive of cystitis although a component of chronic bladder outlet obstruction may be present given prostatomegaly. Stranding extending along the mid to distal LEFT ureter could be related to ascending urinary tract infection. Correlate with urinalysis. No hydronephrosis or ureteral calculus identified. 2. Subacute appearing fractures of LEFT L1-L3 transverse processes and LEFT posterior ribs 11-12. 3. Abdominal aortic ectasia to 2.6 cm. Recommend follow-up in 5 years per 2013 ACR recommendations. 4. Additional description as above. Reading Location: [id number] CC: Dr. Ailin Pierson MD; Dr. Lamont Fajardo, DO ~ Slitter Cut Off Operator: Signed [facility] 08-29-2024 Telephone encounter Note Currently getting radiation for prostate cancer. Pt c/o of increased bladder pain and frequency. Self caths once per day per another MD (not radiation oncologist). Hx of sepsis with untreated UTI. UA ordered 08/28 afternoon for these complaints.Per Dr Huffman: Called pt this am to report his urine was positive for infection. NO culture was ordered yesterday so asked him to do a self cath urine specimen here after he get radiation treatment.When I spoke with pt he said he just does not feel good and running to bathroom every 15 min but does not go much. He reports that he self caths in the evening. When asked if he measures tht he said yes he has a container from hospital he uses and usually fill that up. In checking that container her said it holds 28oz. He also reports that he is chilling and shaking right now. Had him check his temp and it was 97.7F. This reported to Dr Huffman who advises pt to go to ER right now. Pt not happy about that but understands and states he will go. Told ok to miss radiation today and we will check on him in the morning. [facility] 08-29-2024 Miscellaneous Notes Currently getting radiation for prostate cancer. Pt c/o of increased bladder pain and frequency. Self caths once per day per another MD (not radiation oncologist). Hx of sepsis with untreated UTI. UA ordered 08/28 afternoon for these complaints.Per Dr Huffman: Called pt this am to report his urine was positive for infection. NO culture was ordered yesterday so asked him to do a self cath urine specimen here after he get radiation treatment.When I spoke with pt he said he just does not feel good and running to bathroom every 15 min but does not go much. He reports that he self caths in the evening. When asked if he measures tht he said yes he has a container from hospital he uses and usually fill that up. In checking that container her said it holds 28oz. He also reports that he is chilling and shaking right now. Had him check his temp and it was 97.7F. This reported to Dr Huffman who advises pt to go to ER right now. Pt not happy about that but understands and states he will go. Told ok to miss radiation today and we will check on him in the morning. documented in this encounter [facility] 08-29-2024 Hospital Discharge instructions Additional Instructions Follow-up with your urologist within the next 7 to 10 days [facility] Work Phone: 08-28-2024 Note HNO ID: [id number] Author: SOLO BAKER MD Service: ? Author Type: Physician Type: Progress Notes Filed: 09/05/2024 12:31 Note Text: Radiation Therapy - Nursing Note (OTV) PATIENT NAME: Zachary Short PATIENT August 28, 2024 [facility] FACILITY/LOCATION: [place] NURSING NOTE TYPE: PROSTATE - MALE PELVIS Subjective Data c/o pain in bladder area, pt history of self cath, but only does this first thing in am, thinks maybe should do more often Also reports his son saw someone for [facility] [place] who gave son a mixture that he has tried once, this is in a vape form and does not think it is marijuana Additional Data Do you want to see a Physical Science Technician? No Status: Patient is male Stress Scale: On a scale of 0 to 10, what number best describes how much distress you have experienced in the past week?(0 being no distress and 10 being extreme distress) 6 Social work notified: Pt denied need to see addiction social worker at this time. Nursing Assessment Fatigue: none Appetite: good Nutritional Intake: Regular oral intake. Weight Gain/Loss: Not applicable Ambulatory weight history: Last 6 Encounter Wt Readings: Date: Wt: 08/28/2024 107 kg (236 lb) 06/29/2024 110.2 kg (243 lb) 06/26/2024 110.7 kg (244 lb) 05/16/2024 109.3 kg (241 lb) 04/23/2024 111 kg (244 lb 11.4 oz) 01/05/2024 113.4 kg (250 lb) Nausea:None Vomiting: None Bowel Function: loose stools, Erythema/Hyperpigmentation:none Desquamation:none Rash:none Skin Care: Aquaphor Skin Sensation: Within Normal Limits Focused Assessment PROSTATE - MALE PELVIS: Rectal bleeding: No. Rectal pain: No. Bladder function: no problems, painful urination, blood in urine. Urinary frequency (D/N): urinates multiple times a day/every hour or so., SIGNED by: Mali Fernández RN [facility] STAFF PHYSICAN NOTE OF PERSONAL INVOLVEMENT IN CARE I have personally participated in the [place] components of the case including a review and verification of the treatment chart, treatment site, and pertinent set-up including imaging and agree with the above findings Complex scenario. Patient complains of significant pain with urination. Complicated by self-cath/recent history of UTI, prostate radiation. He is seeing his urologist next week to discuss. UA today to rule out UTI. If negative, consider azo. no other radiation toxicity. continue XRT as planned. Solo Baker MD [facility] 08-28-2024 History of Present illness Narrative Radiation Therapy - Nursing Note (OTV) PATIENT NAME: Zachary Short PATIENT August 28, 2024 [facility] FACILITY/LOCATION: [place] NURSING NOTE TYPE: PROSTATE - MALE PELVIS Subjective Data c/o pain in bladder area, pt history of self cath, but only does this first thing in am, thinks maybe should do more often Also reports his son saw someone for medical marSIVIannettea who gave son a mixture that he has tried once, this is in a vape form and does not think it is marijuana Additional Data Do you want to see a Physical Science Technician? No Status: Patient is male Stress Scale: On a scale of 0 to 10, what number best describes how much distress you have experienced in the past week?(0 being no distress and 10 being extreme distress) 6 Social work notified: Pt denied need to see addiction social worker at this time. Nursing Assessment Fatigue: none Appetite: good Nutritional Intake: Regular oral intake. Weight Gain/Loss: Not applicable Ambulatory weight history: Last 6 Encounter Wt Readings: Date: Wt: 08/28/2024 107 kg (236 lb) 06/29/2024 110.2 kg (243 lb) 06/26/2024 110.7 kg (244 lb) 05/16/2024 109.3 kg (241 lb) 04/23/2024 111 kg (244 lb 11.4 oz) 01/05/2024 113.4 kg (250 lb) Nausea:None Vomiting: None Bowel Function: loose stools, Erythema/Hyperpigmentation:none Desquamation:none Rash:none Skin Care: Aquaphor Skin Sensation: Within Normal Limits Focused Assessment PROSTATE - MALE PELVIS: Rectal bleeding: No. Rectal pain: No. Bladder function: no problems, painful urination, blood in urine. Urinary frequency (D/N): urinates multiple times a day/every hour or so., SIGNED by: Mali Fernández RN Complex scenario. Patient complains of significant pain with urination. Complicated by self-cath/recent history of UTI, prostate radiation. He is seeing his urologist next week to discuss. UA today to rule out UTI. If negative, consider azo. no other radiation toxicity. continue XRT as planned. Solo Baker MD documented in this encounter [facility] 08-28-2024 Note HNO ID: [id number] Author: AILIN PIERSON MD Service: ? Author Type: Physician Type: Progress Notes Filed: 08/28/2024 18:01 Note Text: Reason for Visit Follow up prostate cancer treatment HPI Zachary is a 79-year-old male with a history of stage 2a prostate adenocarcinoma, presenting with severe urinary retention and associated pain. Zachary reports severe urinary retention and associated pain, requiring self-catheterization once daily. He experiences a constant urge to urinate every 30-60 minutes, with minimal urine output each time, leading to significant pain rated as 10/10. This issue persists throughout the night, disrupting his sleep. He notes temporary pain relief after urination, but the pain quickly returns. He has been taking two aspirin at night for the past 2-3 days, which has slightly reduced the pain and increased the interval between urinations to 75 minutes. He has also taken Percocet and oxycodone for pain relief, but was advised by his urologist, Dr. Fallon, to discontinue these medications. He is uncertain about the reason for this advice and is concerned about potential interactions with his current treatments. Zachary is currently undergoing radiation therapy and has received a Lupron injection as part of his treatment for prostate cancer. He reports experiencing side effects from the Lupron injection, including hot flashes, chills, and weight loss. He also notes a significant decrease in energy levels, numbness and tingling in his legs, and a feeling of unsteadiness on his feet. He describes a sensation of walking around in a fog, which he attributes to both the radiation therapy and lack of sleep. Zachary has a history of back pain, which he attributes to a previous injury. He underwent a bone scan, which showed no evidence of cancer in the back. However, he reports a recent fall around Kelly time, resulting in a contusion that took three months to heal. He has not had any falls in the past three months, but reports feeling unsteady, particularly when getting out of bed or using the bathroom. His children have made modifications to his home to reduce the risk of falls, including installing handrails and a shower seat. Zachary has a complex medical history, including a recent hospitalization for severe pain and urinary retention. During this hospitalization, he was diagnosed with a bladder infection and was treated with antibiotics and a catheter. He has been self-catheterizing once daily since March. He reports that his current urologist, Dr. Fallon, has been responsive to his needs, providing him with a sufficient supply of catheters. Zachary expresses frustration with his current situation, particularly the severe pain associated with urinary retention. He is willing to increase the frequency of self-catheterization if it would provide relief. He also expresses concern about the cost of catheters and the potential for Medicare coverage. He reports a recent appointment with his radiation oncologist, Dr. Huffman, during which he discussed his symptoms and potential treatment options. He has a follow-up appointment with his previous urologist, Dr. Blanton, but is unsure of the reason for this appointment. Social History Tobacco Use Smoking status: Never Passive exposure: Never Smokeless tobacco: Never Vaping Use Vaping status: Never Used Substance Use Topics Alcohol use: Yes Comment: socially, 3-4 beers/year Drug use: No Past medical history, appointments, medications, allergies reviewed. Pertinent Lab/Diagnostic Studies are reviewed and discussed today Current Outpatient Medications: oxyCODONE-acetaminophen 5-325 mg (PERCOCET) ramelteon (ROZEREM) 8 mg tablet azelastine 0.1% nasal spray lisinopril-hydroCHLOROthiazide (ZESTORETIC) 10-12.5 mg per tablet tamsulosin (FLOMAX) 0.4 mg ergocalciferol 50,000 unit capsule (VITAMIN D2, DRISDOL) polyethylene glycol 3350 (MIRALAX) 17 gram/dose powder naproxen (NAPROSYN) 500 mg tablet aspirin, enteric coated (ASPIRIN, ENTERIC COATED) 81 mg EC tablet Health Maintenance Depression Screening Anxiety Screening DTaP,Tdap,Td Vaccine(1 - Tdap) Shingrix Vaccine(1 of 2) RSV Vaccine(1 - 1-dose 75+ series) Advance Directive Discussion@ Review Of Systems Constitutional: (+) chills, (+) hot flashes, (+) sleep disturbance, (+) weight loss Genitourinary: (+) urinary frequency, (+) dysuria, (+) nocturia, (+) incomplete emptying, (+) dribbling Musculoskeletal: (+) back pain Neurological: (+) unsteady gait, (+) paresthesias, (+) near falls Physical Exam BP 110/62 Pulse 74 Ht 182.9 cm (6') Wt 107 kg (236 lb) SpO2 96% BMI 32.01 kg/m? GENERAL: NAD, alert and oriented. SKIN: Unremarkable, no rash or skin lesions. HEAD: Normocephalic. EYES: PERRLA, EOMI, conjunctiva clear. EARS: External ears normal, canals clear, TM's normal. NOSE/SINUSES: Nares normal. Septum midline. OROPHARYNX: Li (more content not included)... [facility] 08-28-2024 History of Present illness Narrative Reason for Visit Follow up prostate cancer treatment HPI Zachary is a 79-year-old male with a history of stage 2a prostate adenocarcinoma, presenting with severe urinary retention and associated pain. Zachary reports severe urinary retention and associated pain, requiring self-catheterization once daily. He experiences a constant urge to urinate every 30-60 minutes, with minimal urine output each time, leading to significant pain rated as 10/10. This issue persists throughout the night, disrupting his sleep. He notes temporary pain relief after urination, but the pain quickly returns. He has been taking two aspirin at night for the past 2-3 days, which has slightly reduced the pain and increased the interval between urinations to 75 minutes. He has also taken Percocet and oxycodone for pain relief, but was advised by his urologist, Dr. Fallon, to discontinue these medications. He is uncertain about the reason for this advice and is concerned about potential interactions with his current treatments. Zachary is currently undergoing radiation therapy and has received a Lupron injection as part of his treatment for prostate cancer. He reports experiencing side effects from the Lupron injection, including hot flashes, chills, and weight loss. He also notes a significant decrease in energy levels, numbness and tingling in his legs, and a feeling of unsteadiness on his feet. He describes a sensation of walking around in a fog, which he attributes to both the radiation therapy and lack of sleep. Zachary has a history of back pain, which he attributes to a previous injury. He underwent a bone scan, which showed no evidence of cancer in the back. However, he reports a recent fall around Kelly time, resulting in a contusion that took three months to heal. He has not had any falls in the past three months, but reports feeling unsteady, particularly when getting out of bed or using the bathroom. His children have made modifications to his home to reduce the risk of falls, including installing handrails and a shower seat. Zachary has a complex medical history, including a recent hospitalization for severe pain and urinary retention. During this hospitalization, he was diagnosed with a bladder infection and was treated with antibiotics and a catheter. He has been self-catheterizing once daily since March. He reports that his current urologist, Dr. Fallon, has been responsive to his needs, providing him with a sufficient supply of catheters. Zachary expresses frustration with his current situation, particularly the severe pain associated with urinary retention. He is willing to increase the frequency of self-catheterization if it would provide relief. He also expresses concern about the cost of catheters and the potential for Medicare coverage. He reports a recent appointment with his radiation oncologist, Dr. Huffman, during which he discussed his symptoms and potential treatment options. He has a follow-up appointment with his previous urologist, Dr. Blanton, but is unsure of the reason for this appointment. Social History Tobacco Use Smoking status: Never Passive exposure: Never Smokeless tobacco: Never Vaping Use Vaping status: Never Used Substance Use Topics Alcohol use: Yes Comment: socially, 3-4 beers/year Drug use: No Past medical history, appointments, medications, allergies reviewed. Pertinent Lab/Diagnostic Studies are reviewed and discussed today Current Outpatient Medications: oxyCODONE-acetaminophen 5-325 mg (PERCOCET) ramelteon (ROZEREM) 8 mg tablet azelastine 0.1% nasal spray lisinopril-hydroCHLOROthiazide (ZESTORETIC) 10-12.5 mg per tablet tamsulosin (FLOMAX) 0.4 mg ergocalciferol 50,000 unit capsule (VITAMIN D2, DRISDOL) polyethylene glycol 3350 (MIRALAX) 17 gram/dose powder naproxen (NAPROSYN) 500 mg tablet aspirin, enteric coated (ASPIRIN, ENTERIC COATED) 81 mg EC tablet Health Maintenance Depression Screening Anxiety Screening DTaP,Tdap,Td Vaccine(1 - Tdap) Shingrix Vaccine(1 of 2) RSV Vaccine(1 - 1-dose 75+ series) Advance Directive Discussion@ Review Of Systems Constitutional: (+) chills, (+) hot flashes, (+) sleep disturbance, (+) weight loss Genitourinary: (+) urinary frequency, (+) dysuria, (+) nocturia, (+) incomplete emptying, (+) dribbling Musculoskeletal: (+) back pain Neurological: (+) unsteady gait, (+) paresthesias, (+) near falls Physical Exam BP 110/62 Pulse 74 Ht 182.9 cm (6') Wt 107 kg (236 lb) SpO2 96% BMI 32.01 kg/m GENERAL: NAD, alert and oriented. SKIN: Unremarkable, no rash or skin lesions. HEAD: Normocephalic. EYES: PERRLA, EOMI, conjunctiva clear. EARS: External ears normal, canals clear, TM's normal. NOSE/SINUSES: Nares normal. Septum midline. OROPHARYNX: Lips, mucosa, and tongue normal, good dentition. No oral lesions noted. NECK: Supple, no lymphadenopathy, normal thyroid, no carotid bruits. LUNGS: Clear to auscultation bilaterally, no wheezes/rhonchi/rales. HEART: Regular rate and rhythm, no murmurs. No ectopy. EXTREMITIES: Normal, no deformities, no skin discoloration, no edema. NEURO: Awake, alert and oriented x3, cranial nerves II-XII grossly intact, normal gait, no involuntary motions. Labs: - PSA: 17.31 Imaging: - PET Scan: Mid to upper apical transition zone in the prostate and foci in the left lateral 8th rib (SUV max 6.6), T12 costovertebral junction, and left L4. No other suspicious uptake in the abdomen, thorax, or lymph nodes. - CT Scan: Severe bladder distension noted, with suspicion of bladder or kidney infection. - Bone Scan: No abnormal findings. Tests: - Prostate Biopsy: Adenocarcinoma, Nordheim score 7, stage 2A. Assessment and Plan 1. Prostate cancer (HCC) (C61) Stage 2a prostate adenocarcinoma with Lisbeth score of 7 and PSA of 17.31. Undergoing radiation therapy with Dr. Huffman and has received Lupron injection. Recent PET scan shows metastasis in the left lateral 8th rib, T12 costovertebral junction, and L4. Experiencing side effects from treatment, including hot flashes, shivering, and fatigue. - Continue radiation therapy as scheduled. - Monitor for side effects of Lupron and manage symptoms as needed. - Discussed the importance of completing the full course of treatment for optimal outcomes. 2. Self-catheterizes urinary bladder (Z78.9) Performing self-catheterization once daily. Experiencing significant pain and urinary frequency every 30 minutes to an hour. Recent history of severe bladder distention and infection requiring emergency catheterization and antibiotics. - Increase self-catheterization frequency to twice daily to improve bladder emptying and reduce pain. - Monitor for signs of urinary tract infection and report any symptoms immediately. - Follow-up with urologist Dr. Guallpa for ongoing management. 3. Falls (R29.6) History of falls, most recently around Kelly time. Experiencing weakness and instability, particularly when getting out of bed and in the bathroom. Home environment has been modified with safety features to prevent falls. - Continue using safety features at home, including handrails and shower seat. - Encourage regular physical activity to maintain strength and balance. - Monitor for any new falls or changes in mobility. 4. Decreased bone density (M85.80) At risk for decreased bone density due to androgen deprivation therapy with Lupron. - Ordered bone density scan to assess current bone health. - Consider Prolia injections based on bone density scan results. 5. Essential hypertension (I10) Blood pressure is well-controlled on current medication regimen. - Continue current antihypertensive therapy. - Monitor blood pressure regularly. Voice recognition software was used to compose this office note. Please excuse any unintended typographical errors. The patient consented to the use of ambient Funky Moves software for draft documentation of the visit consistent with [facility] s Notice of Privacy Practices. Ailin Pierson MD documented in this encounter [facility] 08-22-2024 Telephone encounter Note Called and left vox Patient is scheduled September 12, 2024 at 12:45 pm, [facility] Thank timo Llamas [facility] 08-22-2024 Miscellaneous Notes Called and left vox Patient is scheduled September 12, 2024 at 12:45 pm, [facility] Thank you Muriel Needs appt with me documented in this encounter [facility] 08-22-2024 Telephone encounter Note Needs appt with me [facility] 08-21-2024 Note HNO ID: [id number] Author: SAMEER RENDON MD Service: ? Author Type: Physician Type: Progress Notes Filed: 08/21/2024 15:01 Note Text: Radiation Oncology - On Treatment Review (OTR) Note PATIENT NAME: Zachary Short PATIENT DIAGNOSIS: Stage IIA, T1c cN0, prostate adenocarcinoma with Lisbeth score 7 (3+4), grade group 2, and PSA 17.31 ng/mL. He is on hormonal therapy. COURSE: definitive AREA TREATED: Pelvis/prostate/SV CURRENT DOSE: 1000 cGy in 4 fx PLANNED DOSE: 7000 cGy in 28 fx SUBJECTIVE: Tolerating inc in urinary frequency and urgency, in spite of ISc X 1 PM, HS. He indicated he self-cath x 1 in the pm, still gets up hourly through the night to urinate, does not self-cath > 1 / day. Also notes since starting the RT a feeling of obstruction when inserting the catheter and has to force the catheter beyond the obstruction. He has difficulty with stream onset, he said Dr Huffman increased Flomax to two tabs hs and added another medication for this problem, I cannot find another similar medication. He is afraid to self-cath > x1 because that's what they told me to do. BM ranges between obstipation and loose, denies diarrhea. Having hot flashes from ADT. EXAM: KPS: 90 General Appearance: Alert and oriented. No acute distress. IMAGING/LAB RESULTS: None Treatment chart checked: Yes Patient treatment site reviewed and verified:Yes CBCTs reviewed and current:Yes Medications started: None ASSESSMENT/PLAN: Tolerating increase in urinary frequency. Clinically declined due to inc in urinary frequency and difficulties with self-cath, will notify Dr Blanton (Urology). . Tolerating excess toxicity. Continue radiation treatment as planned. Sameer Rendon MD for Vince Huffman MD Radiation Therapy - Nursing Note (OTV) PATIENT NAME: Zachary Short PATIENT August 21, 2024 [facility] FACILITY/LOCATION: [place] NURSING NOTE TYPE: PROSTATE - MALE PELVIS Subjective Data I'm feeling weaker. I'm cathing myself at 6-7 pm to help me emptying my bladder. I'm not getting any sleep d/t being up every hour at night time. Additional Data Do you want to see a Physical Science Technician? No Status: Patient is male Stress Scale: On a scale of 0 to 10, what number best describes how much distress you have experienced in the past week?(0 being no distress and 10 being extreme distress) 0 Social work notified: Pt denied need to see addiction social worker at this time. Nursing Assessment Fatigue: increased fatigue over baseline but not altering normal activities Appetite: good Nutritional Intake: Regular oral intake. Weight Gain/Loss: Not applicable Ambulatory weight history: Last 6 Encounter Wt Readings: Date: Wt: 06/29/2024 110.2 kg (243 lb) 06/26/2024 110.7 kg (244 lb) 05/16/2024 109.3 kg (241 lb) 04/23/2024 111 kg (244 lb 11.4 oz) 01/05/2024 113.4 kg (250 lb) 01/03/2024 111.1 kg (245 lb) Nausea:None Vomiting: None Bowel Function: diarrhea 2 - 3 to 5 soft or liquid bowel movements per day Erythema/Hyperpigmentation:none Desquamation:none Rash:none Skin Care: None Skin Sensation: Within Normal Limits Focused Assessment PROSTATE - MALE PELVIS: Rectal bleeding: No. Rectal pain: bermudez and sometimes mild pain . Bladder function: urgency, frequency, painful urination, incomplete emptying. Urinary frequency (D/N): q hr/q hr. Having leaking at times. SIGNED by: Lavinia Blanca RN [facility] 08-21-2024 History of Present illness Narrative Radiation Oncology - On Treatment Review (OTR) Note PATIENT NAME: Zachary Short PATIENT DIAGNOSIS: Stage IIA, T1c cN0, prostate adenocarcinoma with Nordheim score 7 (3+4), grade group 2, and PSA 17.31 ng/mL. He is on hormonal therapy. COURSE: definitive AREA TREATED: Pelvis/prostate/SV CURRENT DOSE: 1000 cGy in 4 fx PLANNED DOSE: 7000 cGy in 28 fx SUBJECTIVE: Tolerating inc in urinary frequency and urgency, in spite of ISc X 1 PM, HS. He indicated he self-cath x 1 in the pm, still gets up hourly through the night to urinate, does not self-cath > 1 / day. Also notes since starting the RT a feeling of obstruction when inserting the catheter and has to force the catheter beyond the obstruction. He has difficulty with stream onset, he said Dr Huffman increased Flomax to two tabs hs and added another medication for this problem, I cannot find another similar medication. He is afraid to self-cath > x1 because that's what they told me to do. BM ranges between obstipation and loose, denies diarrhea. Having hot flashes from ADT. EXAM: KPS: 90 General Appearance: Alert and oriented. No acute distress. IMAGING/LAB RESULTS: None Treatment chart checked: Yes Patient treatment site reviewed and verified:Yes CBCTs reviewed and current:Yes Medications started: None ASSESSMENT/PLAN: Tolerating increase in urinary frequency. Clinically declined due to inc in urinary frequency and difficulties with self-cath, will notify Dr Blanton (Urology). . Tolerating excess toxicity. Continue radiation treatment as planned. Sameer Rendon MD for Vince Huffman MD Radiation Therapy - Nursing Note (OTV) PATIENT NAME: Zachary Short PATIENT August 21, 2024 [facility] FACILITY/LOCATION: [place] NURSING NOTE TYPE: PROSTATE - MALE PELVIS Subjective Data I'm feeling weaker. I'm cathing myself at 6-7 pm to help me emptying my bladder. I'm not getting any sleep d/t being up every hour at night time. Additional Data Do you want to see a Physical Science Technician? No Status: Patient is male Stress Scale: On a scale of 0 to 10, what number best describes how much distress you have experienced in the past week?(0 being no distress and 10 being extreme distress) 0 Social work notified: Pt denied need to see addiction social worker at this time. Nursing Assessment Fatigue: increased fatigue over baseline but not altering normal activities Appetite: good Nutritional Intake: Regular oral intake. Weight Gain/Loss: Not applicable Ambulatory weight history: Last 6 Encounter Wt Readings: Date: Wt: 06/29/2024 110.2 kg (243 lb) 06/26/2024 110.7 kg (244 lb) 05/16/2024 109.3 kg (241 lb) 04/23/2024 111 kg (244 lb 11.4 oz) 01/05/2024 113.4 kg (250 lb) 01/03/2024 111.1 kg (245 lb) Nausea:None Vomiting: None Bowel Function: diarrhea 2 - 3 to 5 soft or liquid bowel movements per day Erythema/Hyperpigmentation:none Desquamation:none Rash:none Skin Care: None Skin Sensation: Within Normal Limits Focused Assessment PROSTATE - MALE PELVIS: Rectal bleeding: No. Rectal pain: bermudez and sometimes mild pain . Bladder function: urgency, frequency, painful urination, incomplete emptying. Urinary frequency (D/N): q hr/q hr. Having leaking at times. SIGNED by: Lavinia Blanca RN documented in this encounter [facility] 08-14-2024 Note HNO ID: [id number] Author: VINCE HUFFMAN MD Service: ? Author Type: Physician Type: Progress Notes Filed: 08/14/2024 14:33 Note Text: Radiation Oncology - On Treatment Review (OTR) Note PATIENT NAME: Zachary Short PATIENT DIAGNOSIS: Stage IIA, T1c cN0, prostate adenocarcinoma with Nordheim score 7 (3+4), grade group 2, and PSA 17.31 ng/mL. He is on hormonal therapy. COURSE: definitive AREA TREATED: Pelvis/prostate/SV CURRENT DOSE: 1000 cGy in 4 fx PLANNED DOSE: 7000 cGy in 28 fx SUBJECTIVE: He is doing well without any specific new complaints. He continues to do self-catheterization once a day as before he started radiation treatment. EXAM: KPS: 90 General Appearance: Alert and oriented. No acute distress. IMAGING/LAB RESULTS: None Treatment chart checked: Yes Patient treatment site reviewed and verified:Yes CBCTs reviewed and current:Yes Medications started: None ASSESSMENT/PLAN: Clinically stable. No signs of toxicity. Continue radiation treatment as planned. Vince Huffman MD [facility] 08-14-2024 History of Present illness Narrative Radiation Oncology - On Treatment Review (OTR) Note PATIENT NAME: Zachary Short PATIENT DIAGNOSIS: Stage IIA, T1c cN0, prostate adenocarcinoma with Nordheim score 7 (3+4), grade group 2, and PSA 17.31 ng/mL. He is on hormonal therapy. COURSE: definitive AREA TREATED: Pelvis/prostate/SV CURRENT DOSE: 1000 cGy in 4 fx PLANNED DOSE: 7000 cGy in 28 fx SUBJECTIVE: He is doing well without any specific new complaints. He continues to do self-catheterization once a day as before he started radiation treatment. EXAM: KPS: 90 General Appearance: Alert and oriented. No acute distress. IMAGING/LAB RESULTS: None Treatment chart checked: Yes Patient treatment site reviewed and verified:Yes CBCTs reviewed and current:Yes Medications started: None ASSESSMENT/PLAN: Clinically stable. No signs of toxicity. Continue radiation treatment as planned. Vince Huffman MD Radiation Therapy - Nursing Note (OTV) PATIENT NAME: Zachary Short PATIENT August 14, 2024 [facility] FACILITY/LOCATION: [facility] NOTE TYPE: PROSTATE - MALE PELVIS Subjective Data no complaints so far with treatments Additional Data Do you want to see a Physical Science Technician? No Status: Patient is male Stress Scale: On a scale of 0 to 10, what number best describes how much distress you have experienced in the past week?(0 being no distress and 10 being extreme distress) 5 Social work notified: Pt denied need to see addiction social worker at this time. Nursing Assessment Fatigue: none Appetite: good Nutritional Intake: Regular oral intake. Weight Gain/Loss: Not applicable Ambulatory weight history: Last 6 Encounter Wt Readings: Date: Wt: 06/29/2024 110.2 kg (243 lb) 06/26/2024 110.7 kg (244 lb) 05/16/2024 109.3 kg (241 lb) 04/23/2024 111 kg (244 lb 11.4 oz) 01/05/2024 113.4 kg (250 lb) 01/03/2024 111.1 kg (245 lb) Nausea:None Vomiting: None Bowel Function: normal bowel movements Erythema/Hyperpigmentation:none Desquamation:none Rash:none Skin Care: None Skin Sensation: Within Normal Limits Focused Assessment PROSTATE - MALE PELVIS: Rectal bleeding: No. Rectal pain: No. Bladder function: no problems. Urinary frequency (D/N): voids small amounts thru out day but then straights cath every day at 6pm and that keeps him comfortable/n/a. SIGNED by: Mali Fernández RN documented in this encounter [facility] 08-14-2024 Note HNO ID: [id number] Author: MALI FERNÁNDEZ RN Service: ? Author Type: Registered Nurse Type: Progress Notes Filed: 08/14/2024 14:33 Note Text: Radiation Therapy - Nursing Note (OTV) PATIENT NAME: Zachary Short PATIENT August 14, 2024 [facility] FACILITY/LOCATION: [facility] NOTE TYPE: PROSTATE - MALE PELVIS Subjective Data no complaints so far with treatments Additional Data Do you want to see a Physical Science Technician? No Status: Patient is male Stress Scale: On a scale of 0 to 10, what number best describes how much distress you have experienced in the past week?(0 being no distress and 10 being extreme distress) 5 Social work notified: Pt denied need to see addiction social worker at this time. Nursing Assessment Fatigue: none Appetite: good Nutritional Intake: Regular oral intake. Weight Gain/Loss: Not applicable Ambulatory weight history: Last 6 Encounter Wt Readings: Date: Wt: 06/29/2024 110.2 kg (243 lb) 06/26/2024 110.7 kg (244 lb) 05/16/2024 109.3 kg (241 lb) 04/23/2024 111 kg (244 lb 11.4 oz) 01/05/2024 113.4 kg (250 lb) 01/03/2024 111.1 kg (245 lb) Nausea:None Vomiting: None Bowel Function: normal bowel movements Erythema/Hyperpigmentation:none Desquamation:none Rash:none Skin Care: None Skin Sensation: Within Normal Limits Focused Assessment PROSTATE - MALE PELVIS: Rectal bleeding: No. Rectal pain: No. Bladder function: no problems. Urinary frequency (D/N): voids small amounts thru out day but then straights cath every day at 6pm and that keeps him comfortable/n/a. SIGNED by: Mali Fernández RN [facility] 08-02-2024 Note HNO ID: [id number] Author: POONAM RICE RN Service: ? Author Type: Registered Nurse Type: Progress Notes Filed: 08/02/2024 13:29 Note Text: Radiation Therapy - Patient Education Note PATIENT NAME: Zachary Short PATIENT August 02, 2024 [facility] FACILITY/LOCATION: [place] READINESS TO LEARN Cognitive Ability: Alert and oriented Motivation to learn: Eager Interested Family Support: Unable to assess - Family not present Instruction provide to: Patient Patient learns best by: Multiple Methods Factors effecting learning: None Physical limitations effecting learning: None LEARNING RESPONSE Diagnosis: Pt simulated today for radiation therapy to prostate. Education Topic/Teaching Points: Radiation therapy, Side effects, and OTV: Method of instruction: Teach Back skin care Individual instruction Written instruction/Handouts Verbal instruction Patient /Family response: Patient verbalized understanding of radiation treatments, side effects, OTV, and transportation. Follow-up plan: Patient instructed to call with any further issues Contact information given. Supplemental material: Informational handouts on Department phone list, bowel handout, Bladder function, Fatigue, and [place] instructions, XRT sheet and Aquaphor handout. Referral (recommendation): None, Pt denied need for social work, van service, and ceramic engineer. Patient has an Onbody or Implanted device: No Signed by: Poonam Rice RN [facility] 08-02-2024 History of Present illness Narrative Radiation Therapy - Patient Education Note PATIENT NAME: Zachary Short PATIENT August 02, 2024 [facility] FACILITY/LOCATION: [place] READINESS TO LEARN Cognitive Ability: Alert and oriented Motivation to learn: Eager Interested Family Support: Unable to assess - Family not present Instruction provide to: Patient Patient learns best by: Multiple Methods Factors effecting learning: None Physical limitations effecting learning: None LEARNING RESPONSE Diagnosis: Pt simulated today for radiation therapy to prostate. Education Topic/Teaching Points: Radiation therapy, Side effects, and OTV: Method of instruction: Teach Back skin care Individual instruction Written instruction/Handouts Verbal instruction Patient /Family response: Patient verbalized understanding of radiation treatments, side effects, OTV, and transportation. Follow-up plan: Patient instructed to call with any further issues Contact information given. Supplemental material: Informational handouts on Department phone list, bowel handout, Bladder function, Fatigue, and [place] instructions, XRT sheet and Aquaphor handout. Referral (recommendation): None, Pt denied need for social work, van service, and ceramic engineer. Patient has an Onbody or Implanted device: No Signed by: Pooanm Rice RN documented in this encounter [facility] 08-02-2024 History of Present illness Narrative ZACHARY SHORT [id number] 08/02/2024 [facility] Department of Radiation Oncology [facility] RADIATION ONCOLOGY SIMULATION NOTE DATE OF SIMULATION: 08/02/2024 MACHINE: GigOwl Definition CT Simulator Diagnosis: Stage IIA, T1c cN0, prostate adenocarcinoma with Nordheim score 7 (3+4), grade group 2, and PSA 17.31 ng/mL. He is on hormonal therapy. AREA:Prostate/SV/Pelvis PATIENT POSITION: Supine. CONTRAST: None PROTOCOL: None BLOCKING: Custom blocking to be determined at treatment planning. FIXATION DEVICE: In order to achieve accurate and reproducible treatments, the patient is to be immobilized with vac bag PROCEDURE: A time-out was conducted and recorded by the therapist. Patient was simulated on the CT scanner for external beam radiation therapy. Treatment site was marked by the simulation therapist. ASSESSMENT/PLAN: Patient tolerated simulation procedure well. Treatments will be initiated after treatment planning. The patient is scheduled for a verification simulation on the treatment machine to ensure proper set-up and field arrangement is correct prior to the first treatment of primary and boost hoskins if applicable. Electronically Signed Vince Huffman M.D./melida 59:15 AM documented in this encounter [facility] 08-02-2024 History of Present illness Narrative ZACHARY SHORT [id number] 08/02/2024 [facility] Department of Radiation Oncology Treatment Planning Note For reasons stated in the consult note, Zachary Short is a candidate for radiation therapy. Based on review and interpretation of the relevant diagnostic studies together with the exam findings, Zachary Short was simulated on 08/02/2024 at which time the target volume and/or requisite hoskins were delineated, as indicated in the simulation note, to be treated according to the prescription. The treatment target and organs at risk were contoured on the simulation scan using the fused PET. After reviewing multiple treatment plans with dosimetry, the best plan was approved to deliver the prescribed course of radiation to the target area using inverse planning to allow for the best isodose distribution, treating to the 97.6% isodose line with 10MV and 3 vmat hoskins. Custom MLC for IMRT were the treatment device(s) used to shape/modify the beams. Limiting dose to normal tissue was confirmed upon review of the calculated dose volume histogram. IMRT planning was used because it best met the dose/volume constraints for the organs at risk for this patient, better than what could be achieved using conventional or 3D planning. The specific dose requirements for the PTV, organs at risk and dose-volume histograms are contained in this treatment plan and/or elsewhere in the medical record. A completed summary of this plan dated 08/07/2024 incorporated herein by reference includes dose, beam arrangements, energy, blocking, isodose distribution, and/or ports and DVH. Electronically Signed Vince Huffman M.D. 0:16 AM documented in this encounter [facility] 08-02-2024 Note HNO ID: [id number] Author: VINCE HUFFMAN MD Service: Radiation Oncology Author Type: Physician Type: Progress Notes Filed: 08/03/2024 09:15 Note Text: ZACHARY SHORT [id number] 08/02/2024 [facility] Department of Radiation Oncology [facility] RADIATION ONCOLOGY SIMULATION NOTE DATE OF SIMULATION: 08/02/2024 MACHINE: Siemens Definition CT Simulator Diagnosis: Stage IIA, T1c cN0, prostate adenocarcinoma with Lisbeth score 7 (3+4), grade group 2, and PSA 17.31 ng/mL. He is on hormonal therapy. AREA:Prostate/SV/Pelvis PATIENT POSITION: Supine. CONTRAST: None PROTOCOL: None BLOCKING: Custom blocking to be determined at treatment planning. FIXATION DEVICE: In order to achieve accurate and reproducible treatments, the patient is to be immobilized with vac bag PROCEDURE: A time-out was conducted and recorded by the therapist. Patient was simulated on the CT scanner for external beam radiation therapy. Treatment site was marked by the simulation therapist. ASSESSMENT/PLAN: Patient tolerated simulation procedure well. Treatments will be initiated after treatment planning. The patient is scheduled for a verification simulation on the treatment machine to ensure proper set-up and field arrangement is correct prior to the first treatment of primary and boost hoskins if applicable. Electronically Signed Vince Huffman M.D./melida 59:15 AM [facility] 08-02-2024 Note HNO ID: [id number] Author: VINCE HUFFMAN MD Service: Radiation Oncology Author Type: Physician Type: Progress Notes Filed: 08/07/2024 10:16 Note Text: ZACHARY SHORT [id number] 08/02/2024 [facility] Department of Radiation Oncology Treatment Planning Note For reasons stated in the consult note, Zachary Short is a candidate for radiation therapy. Based on review and interpretation of the relevant diagnostic studies together with the exam findings, Zachary Short was simulated on 08/02/2024 at which time the target volume and/or requisite hoskins were delineated, as indicated in the simulation note, to be treated according to the prescription. The treatment target and organs at risk were contoured on the simulation scan using the fused PET. After reviewing multiple treatment plans with dosimetry, the best plan was approved to deliver the prescribed course of radiation to the target area using inverse planning to allow for the best isodose distribution, treating to the 97.6% isodose line with 10MV and 3 vmat hoskins. Custom MLC for IMRT were the treatment device(s) used to shape/modify the beams. Limiting dose to normal tissue was confirmed upon review of the calculated dose volume histogram. IMRT planning was used because it best met the dose/volume constraints for the organs at risk for this patient, better than what could be achieved using conventional or 3D planning. The specific dose requirements for the PTV, organs at risk and dose-volume histograms are contained in this treatment plan and/or elsewhere in the medical record. A completed summary of this plan dated 08/07/2024 incorporated herein by reference includes dose, beam arrangements, energy, blocking, isodose distribution, and/or ports and DVH. Electronically Signed Vince Huffman M.D. 510:16 AM [facility] 08-01-2024 Telephone encounter Note Therapists will call him and schedule simulation. Thanks. [facility] Work Phone: 08-01-2024 Miscellaneous Notes Therapists will call him and schedule simulation. Thanks. Patient called asking when radiation treatments would be scheduled. documented in this encounter [facility] 08-01-2024 Telephone encounter Note Patient called asking when radiation treatments would be scheduled. [facility] Work Phone: 07-24-2024 Note HNO ID: [id number] Author: DESTINEE CLOUD RN Service: ? Author Type: Registered Nurse Type: Progress Notes Filed: 07/24/2024 10:37 Note Text: Patient needed prn ones at home that he usually is cathing daily. He states that Dr. Soto office also said they would help him out. [facility] 07-23-2024 Telephone encounter Note Spoke w pt and he is seeing urologist at [facility], I advised him to call them and get order for supplies. Kelvin Dowd [facility] 07-23-2024 Miscellaneous Notes Spoke w pt and he is seeing urologist at [facility], I advised him to call them and get order for supplies. Kelvin Dowd Patient called stating he has to cath every day and has 6 catheters left. He did receive some from [facility] when he was inpatient. They are called speedZipcarth soft. they are 13 inches, 33 cm. lubricated. Patient is asking if this is something we can prescribe. Please advise. documented in this encounter [facility] 07-23-2024 Telephone encounter Note Patient called stating he has to cath every day and has 6 catheters left. He did receive some from [facility] when he was inpatient. They are called ApniCure Lexdir. they are 13 inches, 33 cm. lubricated. Patient is asking if this is something we can prescribe. Please advise. [facility] Work Phone: 07-20-2024 Telephone encounter Note Patient states that he transferred care to Dr. Soto last week and got the 3 month Eligard shot with him locally. When he was in [facility] when he fell and now is home he got established with him and going to continue care with him locally. If down the road he needs surgery or something else he might retrun, but for now seeing Augie in [place]. He thanks you for everything, and said tell Dr. Blanton thank you so much for everything. No need for Eligard here. [facility] 07-20-2024 Miscellaneous Notes Patient states that he transferred care to Dr. Soto last week and got the 3 month Eligard shot with him locally. When he was in [facility] when he fell and now is home he got established with him and going to continue care with him locally. If down the road he needs surgery or something else he might retrun, but for now seeing Augie in [place]. He thanks you for everything, and said tell Dr. Blanton thank you so much for everything. No need for Eligard here. I called and left a message about calling back and getting scheduled for this. When patient calls back please assist with Nurse Visit schedule. Let Clinical know so I can get a CAM Order for that date. Images from the original note were not included. Juan Blanton Jr., MD to Rochelle Carter 07/19/24 10:22 AM Schedule 6 month eligard injection with nursing - link documented in this encounter [facility] 2024 Telephone encounter Note I called and left a message about calling back and getting scheduled for this. When patient calls back please assist with Nurse Visit schedule. Let Clinical know so I can get a CAM Order for that date. [facility] 2024 Telephone encounter Note Images from the original note were not included. Juan Blanton Jr., MD to Rochelle Carter 07/19/24 10:22 AM Schedule 6 month eligard injection with nursing - link [facility] 07-16-2024 Note HNO ID: [id number] Author: DEE BOB RT(Sri) Service: ? Author Type: Insurance Inspector Type: Progress Notes Filed: 07/16/2024 10:09 Note Text: RADIOLOGY SERVICE PROGRESS NOTE SERVICE DATE: 07/16/2024 SERVICE TIME: 10:08 AM PATIENT IDENTITY VERIFICATION COMPLETED USING TWO (2) STANDARD IDENTIFIERS: Name and Date of confirmed by patient verbally and Name and Date of confirmed by identification band FALL SCREENING: Has the patient had 2 falls in the last year or 1 fall with injury or currently using an Ambulatory Assistive Device (Walker, Cane, Wheelchair, Crutches, etc.)? Yes, Patient High Risk for Falls What interventions were put in place to prevent falls during this visit? Instructed Patient to Call for Help if Needed, Instructed Patient to Remain Seated (Not on Exam Table) Until Exam, and Increased Observations by Caregivers PATIENT GENDER DATA: .male NA ALLERGIES: NA MEDICATIONS REVIEWED: NA PATIENT RELEVANT IMPLANT DATA REVIEWED: Not Applicable PATIENT PRESENTS WITH AN IMPLANTABLE OR ATTACHED EXTENSION WORK INSTRUCTOR: NA CREATININE: Creatinine Date Value Ref Range Status 04/19/2024 0.98 0.73 - 1.22 mg/dL Final 03/25/2023 0.87 0.73 - 1.22 mg/dL Final 03/23/2022 0.92 0.73 - 1.22 mg/dL Final Estimated Glomerular Filtration Rate Date Value Ref Range Status 04/19/2024 78 >=60 mL/min/1.73m? Final Comment: Estimated Glomerular Filtration Rate (eGFR) is calculated using the 2020 CKD-EPI creatinine equation. This equation utilizes serum creatinine, sex, and age as parameters. The creatinine assay has traceable calibration to isotope dilution-mass spectrometry. Refer to KDIGO guidelines for clinical interpretation. In patients with unstable renal function, e.g. those with acute kidney injury, the eGFR may not accurately reflect actual GFR. eGFR- Date Value Ref Range Status 06/11/2020 >60 Final P.O.C.T. RESULTS: POC done: Yes, See Lab Tab July 16, [address] PERFORMED: No IV SITE: Ambulatory: A peripheral IV was started in the Left antecubital site with a Angio cath: 22 gauge. POST EXAM PIV STATUS: Discontinued PROCEDURE TYPE: NM INJECT: PET/CT PSMA. 9.6 mCi [id number]. No other medications given.. ADMINISTRATION TIME: 931 PATIENT DISCHARGED TO: Ambulatory patient, left [place] department area. Is this a therapy: No A Diagnostic radioactive procedure has taken place, with no further precautions necessary other than routine body substance precautions. More information regarding radiation safety can be found using this link: [email or web address]%[email or web address]%20Medicine% [email or web address] SIGNATURE: RT Migel(R) PATIENT NAME: Zachary Short DATE: July 16, 2024 TIME: 10:08 AM PAGER/CONTACT #: [facility] 07-16-2024 History of Present illness Narrative RADIOLOGY SERVICE PROGRESS NOTE SERVICE DATE: 07/16/2024 SERVICE TIME: 10:08 AM PATIENT IDENTITY VERIFICATION COMPLETED USING TWO (2) STANDARD IDENTIFIERS: Name and Date of confirmed by patient verbally and Name and Date of confirmed by identification band FALL SCREENING: Has the patient had 2 falls in the last year or 1 fall with injury or currently using an Ambulatory Assistive Device (Walker, Cane, Wheelchair, Crutches, etc.)? Yes, Patient High Risk for Falls What interventions were put in place to prevent falls during this visit? Instructed Patient to Call for Help if Needed, Instructed Patient to Remain Seated (Not on Exam Table) Until Exam, and Increased Observations by Caregivers PATIENT GENDER DATA: .male NA ALLERGIES: NA MEDICATIONS REVIEWED: NA PATIENT RELEVANT IMPLANT DATA REVIEWED: Not Applicable PATIENT PRESENTS WITH AN IMPLANTABLE OR ATTACHED EXTENSION WORK INSTRUCTOR: NA CREATININE: Creatinine Date Value Ref Range Status 04/19/2024 0.98 0.73 - 1.22 mg/dL Final 03/25/2023 0.87 0.73 - 1.22 mg/dL Final 03/23/2022 0.92 0.73 - 1.22 mg/dL Final Estimated Glomerular Filtration Rate Date Value Ref Range Status 04/19/2024 78 >=60 mL/min/1.73m Final Comment: Estimated Glomerular Filtration Rate (eGFR) is calculated using the 2020 CKD-EPI creatinine equation. This equation utilizes serum creatinine, sex, and age as parameters. The creatinine assay has traceable calibration to isotope dilution-mass spectrometry. Refer to KDIGO guidelines for clinical interpretation. In patients with unstable renal function, e.g. those with acute kidney injury, the eGFR may not accurately reflect actual GFR. eGFR- Date Value Ref Range Status 06/11/2020 >60 Final P.O.C.T. RESULTS: POC done: Yes, See Lab Tab July 16, [address] PERFORMED: No IV SITE: Ambulatory: A peripheral IV was started in the Left antecubital site with a Angio cath: 22 gauge. POST EXAM PIV STATUS: Discontinued PROCEDURE TYPE: NM INJECT: PET/CT PSMA. 9.6 mCi [id number]. No other medications given.. ADMINISTRATION TIME: 931 PATIENT DISCHARGED TO: Ambulatory patient, left [place] department area. Is this a therapy: No A Diagnostic radioactive procedure has taken place, with no further precautions necessary other than routine body substance precautions. More information regarding radiation safety can be found using this link: [email or web address] SIGNATURE: RT Migel(Sri) PATIENT NAME: Zachary Short DATE: July 16, 2024 TIME: 10:08 AM PAGER/CONTACT #: documented in this encounter [facility] 07-03-2024 Note HNO ID: [id number] Author: VINCE HUFFMAN MD Service: ? Author Type: Physician Type: Progress Notes Filed: 07/03/2024 10:55 Note Text: Radiation Oncology - Follow Up Note PATIENT NAME: Zachary Short PATIENT DIAGNOSIS: Stage IIA, T1c cN0, prostate adenocarcinoma with Lisbeth score 7 (3+4), grade group 2, and PSA 17.31 ng/mL. INTERVAL HISTORY: When I saw him back in December, he decided not to pursue radiation treatment. He is now referred back to me because he is reconsidering his treatment options. He had an episode of fall and was told to have fracture in his lumbar spine recently. PSA on 06/25/24 was 17.31 and progressed from 12.32 six months ago. ALLERGIES No Known Allergies MEDICATIONS: oxyCODONE-acetaminophen 5-325 mg (PERCOCET) Take 1-2 tablets by mouth every 4 hours as needed (for pain). ramelteon (ROZEREM) 8 mg tablet Take 1 tablet by mouth daily at bedtime. azelastine 0.1% nasal spray Use 1 [place] in each nostril two times a day. lisinopril-hydroCHLOROthiazide (ZESTORETIC) 10-12.5 mg per tablet Take 1 tablet by mouth once daily. tamsulosin (FLOMAX) 0.4 mg Take 1 capsule by mouth daily at bedtime. ergocalciferol 50,000 unit capsule (VITAMIN D2, DRISDOL) Take 1 capsule by mouth two times a week. TO BE TAKEN ORALLY DIRECTED. Take 1 tablet by mouth twice weekly [id number], then decrease to 1 tablet weekly. polyethylene glycol 3350 (MIRALAX) 17 gram/dose powder Take 17 g by mouth once daily. Dissolve dose in 4 - 8 ounces of liquid and take as directed. HYDROcodone-homatropine (HYCODAN, WITH HOMATROPINE,) 5-1.5 mg/5 mL syrup Take 5 mL by mouth every 6 hours as needed for cough for up to 5 days. naproxen (NAPROSYN) 500 mg tablet Take 1 tablet by mouth two times a day as needed (for pain/inflammation). Take with food. (Patient not taking: Reported on 06/26/2024) aspirin, enteric coated (ASPIRIN, ENTERIC COATED) 81 mg EC tablet Take 1 tablet by mouth once daily. (Patient not taking: Reported on 06/26/2024) PHYSICAL EXAM: VS: BP 118/69 Pulse 71 Temp 36.7 ?C (98 ?F) (Temporal) Resp 15 Wt 110.2 kg (243 lb) SpO2 98% BMI 32.96 kg/m? KPS: 90 General Appearance: Alert and oriented. No acute distress. HEENT: NCAT. Sclera anicteric. EOMI. Neck: Normal ROM. Chest: No respiratory distress. Musculoskeletal: Normal ROM in extremities. Neuro: Speech fluent. No focal deficits. Hematologic: No signs of active bleeding ASSESSMENT AND PLAN: 78 year old man with stage IIA, T1c cN0, prostate adenocarcinoma with Lisbeth score 7 (3+4), grade group 2, and PSA 17.31 ng/mL. He declined radiation treatment before. However, now his PSA is progressing and he is reconsidering. I will get PSMA PET scan for staging. If that's negative for distant metastasis, he may be a candidate for definitive radiation treatment and a short term hormonal therapy. I will talk to him after his PET scan. Signed by: Vince Huffman MD cc: Ailin Pierson [address] [place] [address] [facility] 07-03-2024 History of Present illness Narrative Radiation Oncology - Follow Up Note PATIENT NAME: Zachary Short PATIENT DIAGNOSIS: Stage IIA, T1c cN0, prostate adenocarcinoma with Nordheim score 7 (3+4), grade group 2, and PSA 17.31 ng/mL. INTERVAL HISTORY: When I saw him back in December, he decided not to pursue radiation treatment. He is now referred back to me because he is reconsidering his treatment options. He had an episode of fall and was told to have fracture in his lumbar spine recently. PSA on 06/25/24 was 17.31 and progressed from 12.32 six months ago. ALLERGIES No Known Allergies MEDICATIONS: oxyCODONE-acetaminophen 5-325 mg (PERCOCET) Take 1-2 tablets by mouth every 4 hours as needed (for pain). ramelteon (ROZEREM) 8 mg tablet Take 1 tablet by mouth daily at bedtime. azelastine 0.1% nasal spray Use 1 [place] in each nostril two times a day. lisinopril-hydroCHLOROthiazide (ZESTORETIC) 10-12.5 mg per tablet Take 1 tablet by mouth once daily. tamsulosin (FLOMAX) 0.4 mg Take 1 capsule by mouth daily at bedtime. ergocalciferol 50,000 unit capsule (VITAMIN D2, DRISDOL) Take 1 capsule by mouth two times a week. TO BE TAKEN ORALLY DIRECTED. Take 1 tablet by mouth twice weekly [id number], then decrease to 1 tablet weekly. polyethylene glycol 3350 (MIRALAX) 17 gram/dose powder Take 17 g by mouth once daily. Dissolve dose in 4 - 8 ounces of liquid and take as directed. HYDROcodone-homatropine (HYCODAN, WITH HOMATROPINE,) 5-1.5 mg/5 mL syrup Take 5 mL by mouth every 6 hours as needed for cough for up to 5 days. naproxen (NAPROSYN) 500 mg tablet Take 1 tablet by mouth two times a day as needed (for pain/inflammation). Take with food. (Patient not taking: Reported on 06/26/2024) aspirin, enteric coated (ASPIRIN, ENTERIC COATED) 81 mg EC tablet Take 1 tablet by mouth once daily. (Patient not taking: Reported on 06/26/2024) PHYSICAL EXAM: VS: BP 118/69 Pulse 71 Temp 36.7 C (98 F) (Temporal) Resp 15 Wt 110.2 kg (243 lb) SpO2 98% BMI 32.96 kg/m KPS: 90 General Appearance: Alert and oriented. No acute distress. HEENT: NCAT. Sclera anicteric. EOMI. Neck: Normal ROM. Chest: No respiratory distress. Musculoskeletal: Normal ROM in extremities. Neuro: Speech fluent. No focal deficits. Hematologic: No signs of active bleeding ASSESSMENT AND PLAN: 78 year old man with stage IIA, T1c cN0, prostate adenocarcinoma with Lisbeth score 7 (3+4), grade group 2, and PSA 17.31 ng/mL. He declined radiation treatment before. However, now his PSA is progressing and he is reconsidering. I will get PSMA PET scan for staging. If that's negative for distant metastasis, he may be a candidate for definitive radiation treatment and a short term hormonal therapy. I will talk to him after his PET scan. Signed by: Vince Huffman MD cc: Ailin Pierson [address] [place] [id number] Radiation Therapy - Nursing Note (Follow-up) PATIENT NAME: Zachary Short PATIENT June 29, 2024 [facility] FACILITY/LOCATION: [place] Reason for visit: Follow up to discuss treatment options. Subjective Data Pt reports that he is straight cathing daily per Dr Blanton. Pt reports being more emotional, fatigued, shaking hands, increased falls, weakness and poor balance since before . Pt reports burning sensation in lower abdomen toward prostate when he tries to urinate for the last 2-3 days. Additional Data Do you want to see a Physical Science Technician? No Nursing Assessment Fatigue: moderate; causing difficulty performing some activities Appetite: fair Weight Gain/Loss: No Last 6 Encounter Wt Readings: Date: Wt: 06/29/2024 110.2 kg (243 lb) 06/26/2024 110.7 kg (244 lb) 05/16/2024 109.3 kg (241 lb) 04/23/2024 111 kg (244 lb 11.4 oz) 01/05/2024 113.4 kg (250 lb) 01/03/2024 111.1 kg (245 lb) Bowel Function: constipation 0 - bowel movement every day Bone Pain: severe pain: pain or analgesics severely interfering with activities of daily living and bone pain from injuries sustained from multiple falls. Focused Assessment PROSTATE - MALE PELVIS: Rectal bleeding: No. Rectal pain: No. Bladder function: no problems, incomplete emptying, retention. Urinary frequency (D/N): 4-5/2-3 plus straight cath once daily prior to bed. SIGNED by: Poonam Rice RN documented in this encounter [facility] 07-02-2024 Telephone encounter Note Pt called and is notified of providers message and instructions. Pt voices understanding. Hari Rodriguez RN [facility] 07-02-2024 Miscellaneous Notes Pt called and is notified of providers message and instructions. Pt voices understanding. Hari Rodriguez RN I sent some syrup for disruptive cough, but he needs to take tylenol for pain and fever, Can take otc delsym for congestions. RegardsAilin MD [facility] 06/26/24. Please review and advise. Carley Khan MA Patient calling in to see if he can get something called in for him, he is having Congestion, temp 99.5, can't sleep,and cough. Patient denies appiontment due to already having one at [facility] at 11 am today. Please review and advise. Susan Sher July 02, 2024 8:36 AM documented in this encounter [facility] 07-02-2024 Telephone encounter Note I sent some syrup for disruptive cough, but he needs to take tylenol for pain and fever, Can take otc delsym for congestions. Regards, Ailin Pierson MD [facility] 07-02-2024 Telephone encounter Note [facility] 06/26/24. Please review and advise. Carley Khan MA [facility] 07-02-2024 Telephone encounter Note Patient calling in to see if he can get something called in for him, he is having Congestion, temp 99.5, can't sleep,and cough. Patient denies appiontment due to already having one at [facility] at 11 am today. Please review and advise. Susan Sher July 02, 2024 8:36 AM [facility] 06-29-2024 Note HNO ID: [id number] Author: POONAM RICE RN Service: ? Author Type: Registered Nurse Type: Progress Notes Filed: 07/03/2024 10:55 Note Text: Radiation Therapy - Nursing Note (Follow-up) PATIENT NAME: Zachary Short PATIENT June 29, 2024 [facility] FACILITY/LOCATION: [place] Reason for visit: Follow up to discuss treatment options. Subjective Data Pt reports that he is straight cathing daily per Dr Blanton. Pt reports being more emotional, fatigued, shaking hands, increased falls, weakness and poor balance since before . Pt reports burning sensation in lower abdomen toward prostate when he tries to urinate for the last 2-3 days. Additional Data Do you want to see a Physical Science Technician? No Nursing Assessment Fatigue: moderate; causing difficulty performing some activities Appetite: fair Weight Gain/Loss: No Last 6 Encounter Wt Readings: Date: Wt: 06/29/2024 110.2 kg (243 lb) 06/26/2024 110.7 kg (244 lb) 05/16/2024 109.3 kg (241 lb) 04/23/2024 111 kg (244 lb 11.4 oz) 01/05/2024 113.4 kg (250 lb) 01/03/2024 111.1 kg (245 lb) Bowel Function: constipation 0 - bowel movement every day Bone Pain: severe pain: pain or analgesics severely interfering with activities of daily living and bone pain from injuries sustained from multiple falls. Focused Assessment PROSTATE - MALE PELVIS: Rectal bleeding: No. Rectal pain: No. Bladder function: no problems, incomplete emptying, retention. Urinary frequency (D/N): 4-5/2-3 plus straight cath once daily prior to bed. SIGNED by: Poonam Rice RN [facility] 06-28-2024 Telephone encounter Note Called and spoke to Zachary and updated patient. Patient planning on keeping appointment with Dr Huffman for tomorrow, patient son will accompany patient to appointment. Lea Hargrove LPN June 28, 2024 4:18 PM [facility] 06-28-2024 Miscellaneous Notes Called and spoke to Zachary and updated patient. Patient planning on keeping appointment with Dr Huffman for tomorrow, patient son will accompany patient to appointment. Lea Hargrove LPN June 28, 2024 4:18 PM Please call patient and let him know to keep the apt tomorrow with I just communicated with him and he has plan to give the medication and then radiation and also do a bone scan on him tomorrow. He can keep the augie visit for a second opinion and make decisions after visit. I think since Dr Huffman can see him tomorrow we should try to keep that appointment Santa, Ailin Pierson MD If he doesn't have metastasis, he is a candidate for a short course of hormone therapy and definitive radiation treatment. I understand your concern for possible bone metastases. If he had recent lumbar spine fracture, I'm not sure how helpful repeat bone scan would be. I can get PSMA PET scan if his insurance company approves. He is scheduled to see me tomorrow and I will order PSMA PET then. Thank you for brining up your concerns! Vince Hi Luly Blanton and Dr Huffman, This patient had a couple falls in the past 2 months , on of them was severe, where he lay on the floor for 15 hours as he could not call any one. Developed severe back ache from it , the pain has motivated him to seek treatment for the prostate cancer. He has several lumbar vertebral fractures, and rib fractures. Would you think the bones are brittle from the prostate cancer/. The last NM scan did not show mets but that was around a year ago and things could have changed. I will try to treat him with prolia Could you help me with understanding what are his treatment options at this point? And his prognosis? He is motivated for the first time to consider all his options. Thank you Ailin Pierson MD documented in this encounter [facility] 06-28-2024 Telephone encounter Note Please call patient and let him know to keep the apt tomorrow with I just communicated with him and he has plan to give the medication and then radiation and also do a bone scan on him tomorrow. He can keep the augie visit for a second opinion and make decisions after visit. I think since Dr Huffman can see him tomorrow we should try to keep that appointment Regards, Ailin Pierson MD [facility] 06-28-2024 Telephone encounter Note If he doesn't have metastasis, he is a candidate for a short course of hormone therapy and definitive radiation treatment. I understand your concern for possible bone metastases. If he had recent lumbar spine fracture, I'm not sure how helpful repeat bone scan would be. I can get PSMA PET scan if his insurance company approves. He is scheduled to see me tomorrow and I will order PSMA PET then. Thank you for brining up your concerns! Vince [facility] Work Phone: 06-28-2024 Telephone encounter Note Hi Luly Blanton and Dr Huffman, This patient had a couple falls in the past 2 months , on of them was severe, where he lay on the floor for 15 hours as he could not call any one. Developed severe back ache from it , the pain has motivated him to seek treatment for the prostate cancer. He has several lumbar vertebral fractures, and rib fractures. Would you think the bones are brittle from the prostate cancer/. The last NM scan did not show mets but that was around a year ago and things could have changed. I will try to treat him with prolia Could you help me with understanding what are his treatment options at this point? And his prognosis? He is motivated for the first time to consider all his options. Thank you Ailin Pierson MD [facility] 06-28-2024 Telephone encounter Note Called and spoke to Martha with Dr Soto office (Urology) [facility]. Updated Martha, who will call patient to set up appointment. Dr Pierson would like patient to be seen [facility] regarding prostate cancer. Patient is willing to see Urology and was apprehensive previously to follow up. Dr Pierson is willing to do a peer to peer with Dr Soto if needed. Urologist requested order, office note and face sheet to be faxed over to their office. Faxed done. [facility] office # [phone] Lea Hargrove LPN June 28, 2024 9:58 AM [facility] 06-28-2024 Miscellaneous Notes Called and spoke to Martha with Dr Soto office (Urology) [facility]. Updated Martha, who will call patient to set up appointment. Dr Pierson would like patient to be seen [facility] regarding prostate cancer. Patient is willing to see Urology and was apprehensive previously to follow up. Dr Pierson is willing to do a peer to peer with Dr Soto if needed. Urologist requested order, office note and face sheet to be faxed over to their office. Faxed done. [facility] office # [phone] Lea Hargrove LPN June 28, 2024 9:58 AM documented in this encounter [facility] 06-28-2024 Note HNO ID: [id number] Author: ?, ?, ? Service: ? Author Type: ? Type: Progress Notes Filed: 06/28/2024 09:44 Note Text: POPULATION HEALTH NAVIGATION OUTREACH Action/FYI [facility] [place] Support: Called pt to schedule an appt in Pain Management. Spoke w/ pt, Will call back later to schedule appt. Reason for Outreach Care Gap/HCC or Scheduling Wellness Visits Care Gaps due: N/A Patient Contacted: Spoke to patient/parent/or legal guardian Patient identified by name and : No Navigation Signature: Saud Chowdhury June 28, 2024 9:44 AM [facility] 06-28-2024 History of Present illness Narrative POPULATION HEALTH NAVIGATION OUTREACH Action/[facility] Support: Called pt to schedule an appt in Pain Management. Spoke w/ pt, Will call back later to schedule appt. Reason for Outreach Care Gap/HCC or Scheduling Wellness Visits Care Gaps due: N/A Patient Contacted: Spoke to patient/parent/or legal guardian Patient identified by name and : No Navigation Signature: Saud Chowdhury June 28, 2024 9:44 AM documented in this encounter [facility] 06-28-2024 Note Patient Outreach (NE TNAV) ZACHARY SHORT ([id number]) 1945 M Date Time Provider Department 06/28/24 NO PCP NETNAV During your visit today, we recorded the following information about you: Saud Chowdhury 06/28/2024 9:44 AM Signed POPULATION HEALTH NAVIGATION OUTREACH Action/[facility] Support: Called pt to schedule an appt in Pain Management. Spoke w/ pt, Will call back later to schedule appt. Reason for Outreach Care Gap/HCC or Scheduling Wellness Visits Care Gaps due: N/A Patient Contacted: Spoke to patient/parent/or legal guardian Patient identified by name and : No Navigation Signature: Saud Chowdhury June 28, 2024 9:44 AM Allergies As of Date: 06/28/2024 (No Known Allergies) Date Reviewed: 06/26/2024 Reviewed by: Mine Campbell MA - Fully Assessed Prescriptions as of 06/28/2024 - ramelteon (ROZEREM) 8 mg tablet Take 1 tablet by mouth daily at bedtime. - azelastine 0.1% nasal spray Use 1 [place] in each nostril two times a day. - lisinopril-hydroCHLOROthiazide (ZESTORETIC) 10-12.5 mg per tablet Take 1 tablet by mouth once daily. - tamsulosin (FLOMAX) 0.4 mg Take 1 capsule by mouth daily at bedtime. - ergocalciferol 50,000 unit capsule (VITAMIN D2, DRISDOL) Take 1 capsule by mouth two times a week. TO BE TAKEN ORALLY DIRECTED. Take 1 tablet by mouth twice weekly [id number], then decrease to 1 tablet weekly. - naproxen (NAPROSYN) 500 mg tablet Take 1 tablet by mouth two times a day as needed (for pain/inflammation). Take with food. - polyethylene glycol 3350 (MIRALAX) 17 gram/dose powder Take 17 g by mouth once daily. Dissolve dose in 4 - 8 ounces of liquid and take as directed. - aspirin, enteric coated (ASPIRIN, ENTERIC COATED) 81 mg EC tablet Take 1 tablet by mouth once daily. Problem List As Of Date 06/28/2024 Noted Resolved Mixed hyperlipidemia [E78.2] 11/09/2005 Unspecified Asthma [J45.909] 11/09/2005 Personal history of other malignant neoplasm of*03/31/2006 Cervical Spondylosis without Myelopathy [M47.81* Family History of Malignant Neoplasm of Gastroi*05/16/2008 Primary Localized Osteoarthrosis, Shoulder Quin*05/16/2008 ACTINIC KERATOSIS (Premalignant AK) [L57.0] 05/17/2008 Other Seborrheic Keratosis [L82.1] 05/17/2008 09/15/2009 ACTINIC DAMAGE///CHR SOLAR SKIN DAMAGE NOS [L57*05/17/2008 09/15/2009 Rosacea [L71.9] 05/17/2008 Primary hypertension [I10] 09/15/2009 Obesity [E66.9] 09/15/2009 Irritated//Inflamed Seborrheic Keratosis [L82.0]09/23/2009 Solar lentigo [L81.4] 09/23/2009 Bladder Neck Obstruction [N32.0] 10/30/2009 Hypertrophy of prostate with urinary obstructio*05/28/2010 Arthritis of shoulder region, left, degenerativ*08/03/2011 Benign neoplasm of rectum and anal canal [D12.8*08/23/2011 Pain in joint, shoulder region [M25.519] 10/21/2011 Chronic knee pain [M25.569, G89.29] 02/28/2017 Preop examination [Z01.818] 11/21/2023 Elevated prostate specific antigen (PSA) [R97.2*11/21/2023 11/29/2023 Obesity, Class I, BMI 30-34.9 [E66.811] 11/21/2023 Prostate cancer (HCC) [C61] 11/29/2023 Encounter Status:Closed by SAUD CHOWDHURY on 06/28/24 [facility] 06-27-2024 Telephone encounter Note I called and spoke to Zachary and scheduled him to come in this week Tuesday06/29/24 @ 11:00 am, patient confirmed this date & time Ayah Hassan [facility] 06-27-2024 Miscellaneous Notes I called and spoke to Zachary and scheduled him to come in this week Tuesday06/29/24 @ 11:00 am, patient confirmed this date & time Ayah Hassan Images from the original note were not included. Unscheduled order from yesterday- Dr. Pierson. Please note telephone encounter from Dr. Blanton's office. order from PCP- Prostate Cancer, ref prov Dr. Pierson. Message from Dr. Blanton's office - Juan Blanton Jr., MD [facility] Clinical Pool Psa 17.31 Recommend fu with rad/onc Patient informed. He was told to call Dr. Huffman's office to set up a follow up but wanted to keep his appointment with Dr. Blanton on 07/24/24. Mayi Stallings MA Clinical, please advise. Do we call and set up consult after 07/24? documented in this encounter [facility] 06-27-2024 Telephone encounter Note Images from the original note were not included. Unscheduled order from yesterday- Dr. Pierson. Please note telephone encounter from Dr. Blanton's office. order from PCP- Prostate Cancer, ref prov Dr. Pierson. Message from Dr. Blanton's office - Juan Blanton Jr., MD [facility] Clinical Pool Psa 17.31 Recommend fu with rad/onc Patient informed. He was told to call Dr. Huffman's office to set up a follow up but wanted to keep his appointment with Dr. Blanton on 07/24/24. Mayi Stallings MA Clinical, please advise. Do we call and set up consult after 07/24? [facility] Work Phone: 06-26-2024 Note HNO ID: [id number] Author: AILIN PIERSON MD Service: ? Author Type: Physician Type: Progress Notes Filed: 06/28/2024 10:39 Note Text: Reason for Visit Patient presents with: Hospital F/U Zachary Short is a 78 year old male who presents here today for Above Complaints.. Health Maintenance Depression Screening Anxiety Screening DTaP,Tdap,Td Vaccine(1 - Tdap) Shingrix Vaccine(1 of 2) RSV Vaccine(1 - 1-dose 75+ series) Advance Directive Discussion HPI Zachary is a very pleasant 78-year-old gentleman who was diagnosed with prostate cancer, has arthritis of the back, LUTS, hypertension and obesity. He is here with his son for a hospital discharge follow-up. Over the past 2 months he has been to the hospital 2 times,. Both times after a fall. He has in the last visit broken multiple ribs and fractured vertebral bones. He was admitted on June 19, 2024 to June 21, 2024 at [facility]. 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 He was admitted for a couple days and was adequately given pain relief and DVT prophylaxis and discharged. Prior to this he was admitted in April at [facility] for tripping and falling out of the bed, he could not get up and could not call his family members and he was laying for 15 hours. He had a bowel movement and he had passed urine 2 times in the position. Both his sons found him 15 hours later, he had developed rhambomyolysis, usama and found to have uti. Since then he has been having severe pain in back. Until the last visit in the office with me he was not motivated to have any treatment done for his prostate cancer and wanted to just let things ride. But after the awful experience he had after the fall and the chronic pain he has in the back he is open to getting treatment and is very motivated to getting many things done. He was told that he has probably severe sleep apnea and for the first time he says he would consider getting PAP treatment if he has to use it. His current urologist has referred him for radiation therapy as surgery was not preferable at his age, and he wants to have a second opinion. He also wants to know all the options he has for treatment. We discussed that his options are mostly palliative at this point and it will aid his quality of life. Over the past few years after watching his he has talked more about quality of life and wanting to live and do things he wants to do rather than being treated and today he has changed that outlook a little bit and seems more motivated. No problem-specific Assessment AND Plan notes found for this encounter. 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 Only seasonal now PAST SURGICAL HISTORY Procedure Laterality Date ARTHROPLASTY HEMIARTHROPLASTY 09/10/2011 left shoulder Ari arthroplasty ARTHROPLASTY HEMIARTHROPLASTY 03/07/2012 left shoulder revision COLONOSCOPY AND POLYPECTOMY 08/23/11 repeat 5 years COLONOSCOPY FLX DX W/COLLJ SPEC WHEN PFRMD 10/19/2016 Normal colonoscopy-family history-5 year follow-up NECK 07/17/2007 Anterior cervical discectomy allograft fusion on c-4,c-5,c-6 FAMILY HISTORY Problem Relation Age of Onset Colon Cancer Father Cancer Mother metastatic melanoma Social History Tobacco Use Smoking status: Never Passive exposure: Never Smokeless tobacco: Never Vaping Use Vaping status: Never Used Substance Use Topics Alcohol use: Yes Comment: socially, 3-4 beers/year Drug use: No Past medical history, appointments, medications, allergies reviewed. Pertinent Lab/Diagnostic Studies are reviewed and discussed today Current Outpatient Medications: ramelteon (ROZEREM) 8 mg tablet azelastine 0.1% nasal spray lisinopril-hydroCHLOROthiazide (ZESTORETIC) 10-12.5 mg per tablet tamsulosin (FLOMAX) 0.4 mg ergocalciferol 50,000 unit capsule (VITAMIN D2, DRISDOL) naproxen (NAPROSYN) 500 mg tablet polyethylene glycol 3350 (MIRALAX) 17 gram/dose powder aspirin, enteric coated (ASPIRIN, ENTERIC COATED) 81 mg EC tablet Review of Systems CONSTITUTIONAL: No fevers, chills night sweats, unintended weight loss CARDIOVASCULAR: No chest pain, dyspnea, palpitations, orthopnea, PND, ankle edema. PULM: No dyspnea, unexplained cough. GI: No dysphagia/odynophagia, problematic reflux, constipation, diarrhea, changes in stool habits, hematochezia, melena. : No new urinary complaints, including dysu (more content not included)... [facility] 06-26-2024 History of Present illness Narrative Reason for Visit Patient presents with: Hospital F/U Zachary Short is a 78 year old male who presents here today for Above Complaints.. Health Maintenance Depression Screening Anxiety Screening DTaP,Tdap,Td Vaccine(1 - Tdap) Shingrix Vaccine(1 of 2) RSV Vaccine(1 - 1-dose 75+ series) Advance Directive Discussion MARGIE Sharma is a very pleasant 78-year-old gentleman who was diagnosed with prostate cancer, has arthritis of the back, LUTS, hypertension and obesity. He is here with his son for a hospital discharge follow-up. Over the past 2 months he has been to the hospital 2 times,. Both times after a fall. He has in the last visit broken multiple ribs and fractured vertebral bones. He was admitted on June 19, 2024 to June 21, 2024 at [facility]. 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 He was admitted for a couple days and was adequately given pain relief and DVT prophylaxis and discharged. Prior to this he was admitted in April at [facility] for tripping and falling out of the bed, he could not get up and could not call his family members and he was laying for 15 hours. He had a bowel movement and he had passed urine 2 times in the position. Both his sons found him 15 hours later, he had developed rhambomyolysis, usama and found to have uti. Since then he has been having severe pain in back. Until the last visit in the office with me he was not motivated to have any treatment done for his prostate cancer and wanted to just let things ride. But after the awful experience he had after the fall and the chronic pain he has in the back he is open to getting treatment and is very motivated to getting many things done. He was told that he has probably severe sleep apnea and for the first time he says he would consider getting PAP treatment if he has to use it. His current urologist has referred him for radiation therapy as surgery was not preferable at his age, and he wants to have a second opinion. He also wants to know all the options he has for treatment. We discussed that his options are mostly palliative at this point and it will aid his quality of life. Over the past few years after watching his he has talked more about quality of life and wanting to live and do things he wants to do rather than being treated and today he has changed that outlook a little bit and seems more motivated. No problem-specific Assessment & Plan notes found for this encounter. 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 Only seasonal now PAST SURGICAL HISTORY Procedure Laterality Date ARTHROPLASTY HEMIARTHROPLASTY 09/10/2011 left shoulder Ari arthroplasty ARTHROPLASTY HEMIARTHROPLASTY 03/07/2012 left shoulder revision COLONOSCOPY & POLYPECTOMY 08/23/11 repeat 5 years COLONOSCOPY FLX DX W/COLLJ SPEC WHEN PFRMD 10/19/2016 Normal colonoscopy-family history-5 year follow-up NECK 07/17/2007 Anterior cervical discectomy allograft fusion on c-4,c-5,c-6 FAMILY HISTORY Problem Relation Age of Onset Colon Cancer Father Cancer Mother metastatic melanoma Social History Tobacco Use Smoking status: Never Passive exposure: Never Smokeless tobacco: Never Vaping Use Vaping status: Never Used Substance Use Topics Alcohol use: Yes Comment: socially, 3-4 beers/year Drug use: No Past medical history, appointments, medications, allergies reviewed. Pertinent Lab/Diagnostic Studies are reviewed and discussed today Current Outpatient Medications: ramelteon (ROZEREM) 8 mg tablet azelastine 0.1% nasal spray lisinopril-hydroCHLOROthiazide (ZESTORETIC) 10-12.5 mg per tablet tamsulosin (FLOMAX) 0.4 mg ergocalciferol 50,000 unit capsule (VITAMIN D2, DRISDOL) naproxen (NAPROSYN) 500 mg tablet polyethylene glycol 3350 (MIRALAX) 17 gram/dose powder aspirin, enteric coated (ASPIRIN, ENTERIC COATED) 81 mg EC tablet Review of Systems CONSTITUTIONAL: No fevers, chills night sweats, unintended weight loss CARDIOVASCULAR: No chest pain, dyspnea, palpitations, orthopnea, PND, ankle edema. PULM: No dyspnea, unexplained cough. GI: No dysphagia/odynophagia, problematic reflux, constipation, diarrhea, changes in stool habits, hematochezia, melena. : No new urinary complaints, including dysuria, gross hematuria or pyuria. NEURO: No new balance problems, peripheral weakness/paresthesias or numbness of concern. Physical Exam BP 112/70 Pulse 78 Resp 18 Wt 110.7 kg (244 lb) SpO2 98% BMI 33.09 kg/m General appearance: Well appearing, alert, in no acute distress, well nourished. Appears nervous and has some tremors. Skin: large ecchymosis on the left flank area Head: Normocephalic, no masses, lesions, tenderness or abnormalities Eyes: Anicteric sclera. Pupils are equally round and reactive to light. Extraocular movements are intact. Lungs: Lungs clear to auscultation. No wheezing, rhonchi, rales Heart: RRR without murmur, gallop, or rubs. Extremities: No deformities, edema, skin discoloration, clubbing or cyanosis. Good capillary refill. ASSESSMENT/PLAN: 1. Prostate cancer (HCC) - ICD9: 185, ICD10: C61 (primary diagnosis) Unclear if there is any progression of the prostate cancer, to the back which is causing poor bone density and fractures, He is finally wanting to work on the prostate cancer instead of letting nature take its course. Wants a second opinion. - CONSULT TO UROLOGY - RAD/ONC CONSULT 2. Closed fracture of multiple ribs of both sides, sequela - ICD9: 905.1, ICD10: S22.43XS - consult to pain management for cementing and other procedures that may help him. 3. Fracture of vertebra due to osteoporosis, sequela - ICD9: 905.1, ICD10: M80.08XS - Reviewed the need for Calcium and Vitamin D supplements and weight bearing exercise as tolerated - CONSULT TO PAIN MGT 4. Other osteoporosis, unspecified pathological fracture presence - ICD9: 733.09, ICD10: M81.8 - Reviewed the need for Calcium and Vitamin D supplements and weight bearing exercise as tolerated - DXA-AXIAL SKELETON 5. Debility - ICD9: 799.3, ICD10: R53.81 Physical Therapy and pain management may help 6. Falls frequently - ICD9: V15.88, ICD10: R29.6 He has physical therapy coming up at home, encouraged him to do that Spent more than 50 mins , 30 face to face with the patient and family and over 30 mins co ordination care Ailin Pierson MD documented in this encounter [facility] 06-26-2024 Telephone encounter Note Images from the original note were not included. Juan Blanton Jr., MD P [facility] Exchange Clinical Pool Psa 17.31 Recommend fu with rad/onc Patient informed. He was told to call Dr. Huffman's office to set up a follow up but wanted to keep his appointment with Dr. Blanton on 07/24/24. Mayi Stallings MA [facility] 06-26-2024 Miscellaneous Notes Images from the original note were not included. Juan Blanton Jr., MD [facility] Exchange Clinical Pool Psa 17.31 Recommend fu with rad/onc Patient informed. He was told to call Dr. Huffman's office to set up a follow up but wanted to keep his appointment with Dr. Blanton on 07/24/24. Mayi Stallings MA documented in this encounter [facility] 06-21-2024 Note [facility] Medical Records Department [address] [place] [address] Discharge Summary 06/21/24 1423 MR#: [id number] Acct: [id number] Name: ZACHARY SHORT Rep #: [id number] : 1945 78 From: Itzel Randle MD PCP: Dr. Ailin Pierson MD Status:ADM VASU Location: [place] [address] Providers Date of Admission: 06/19/24 Date of Discharge: 06/21/24 Primary Care Physician: Dr. Ailin Pierson MD Reason For Visit: DEBILITY DUE TO MECHANICAL FALL Diagnosis Discharge Diagnosis (1) Fracture, ribs: Status: Acute Code(s): S22.49XA - Multiple fractures of ribs, unspecified side, initial encounter for closed fracture (2) Fracture of transverse process of lumbar vertebra: Status: Acute Code(s): S32.009A - Unspecified fracture of unspecified lumbar vertebra, initial encounter for closed fracture (3) Contusion of left flank: Status: Acute Code(s): S30.1XXA - Contusion of abdominal wall, initial encounter (4) Fall: Status: Acute Code(s): W19.XXXA - Unspecified fall, initial encounter Plan #Debility with left rib fractures and spinal fractures due to mechanical fall * patient said he was picking his toothbrush which fell down; he fell down and did not hit his head, but hit his left flank and back against the toilet. * sustained a large ecchymotic patch over the left lower back. * Imaging done showed left rib fractures and lumbar spinal stenosis * CT of the chest abdomen and pelvis showed 2.4 x 1.8cm hypodense nodule in the postero medial aspect of hte lower pole of the left kidney suggestive of small cyst and edematous changes overlying the subcutaneous fat in the posterior left flank extending to the lower posterior pelvic fat suggestive of post fall contusion. * CXR showed no acute cardiopulmonary pathollgy. * CT chest showed nondisplaced fracture of L2, L3 and L4, and showed nondisplaced facture of the costovertebral aspect of hte left fourth rib as well as the posterolateral aspect of the left 11th rib * PT/OT on board * PO tylenol, PO oxycodone and IV morphine prn for pain. * fall precautions * incentive spirometry * #Left rib and spinal fractures due to mechanical fall * as above * #Left lower back ecchymosis due to mechanical fall * Has a large ecchymotic patch over the left lower back. Hemoglobin is 12.6. * hold aspirin and monitor Hb * monitor ecchymosis for resolution * #History of prostate cancer * says he has opted for conservative management for now and is due to follow up with his urologist within a few weeks for follow up PSA * on flomax * #Hypertension: On lisinopril and HCTZ DVT prophylaxis: SCDs due to mechanical fall and left lower back ecchymosis Code status: full code * Medications at Discharge Home Medications azelastine 137 mcg (0.1 %) nasal spray 1 spray intranasal DAILY nasal 05/22/24 ergocalciferol (vitamin D2) 1,250 mcg (50,000 unit) capsule 1,250 mcg PO .weekly bones 05/22/24 lisinopril 10 mg-hydrochlorothiazide 12.5 mg tablet 1 tab PO DAILY bp 05/22/24 polyethylene glycol 3350 17 gram/dose oral powder 17 g PO DAILY PRN bowels 05/22/24 tamsulosin 0.4 mg capsule 0.8 mg (2 x 0.4 mg) PO QHS #60 caps 05/24/24 lidocaine 5 % topical patch 1 patch topical DAILY #30 ea 06/21/24 oxycodone 5 mg tablet 5 mg PO Q4H PRN PRN Pain Score 4-10 5 days #30 tabs 06/21/24 Hospital Course Operations None Procedures None Summary of Care Provided Minutes Spent on Discharge: 47 Hospital Course: ZACHARY SHORT, is a 78 M with a PMH as outlined who presents via the ED on 06/19/2024 with a complaint of mechanical fall and back pain. He was brushing his teeth when he dropped is toothbrush. In his attempt to pick it up, he fell. He hit his head and also hit the left side of his back and ribs. He had no loss of consciousness. He complained of lower back pain and left flank pain with associated bruising. He had no other symptoms. Review of systems was otherwise. Vitals in the ED were BP of 109/75, CA of 75, RR of 16 and oxygen sats of 95% on room air. CBC and BMP ordered with pending at time of review. CT chest abdomen and pelvis showed a 2.4 x 1.8 cm hypodense nodule in the posterior aspect of the left lower pole of the left kidney suggestive of a small cyst and showed edematous changes overlying the subcutaneous fat in the posterior left flank extending to the lower posterior pelvic fat suggestive of post fall contusion. Lumbar spine CT showed a nondisplaced fracture of the costovertebral aspect of the left fourth rib as well as the posterior lateral aspect of the left 11th rib and nondisplaced fractures of the L2-L3 and L4 transverse processes. He has been admitted to be managed for debility and spinal fractures as well as rib fractures due to mechanical fall. PT OT were consulted. He was also placed on p.o. pain meds and IV pain meds as well as lidocaine patch. He wor (more content not included)... [facility] 05-31-2024 History of Present illness Narrative Patient presents with urinary retention. Patient states he self caths but states that since taking flomax 0.8 mg he has been urinating much better. Patient asked to go to restroom and see if he could empty out his bladder so it could be scanned. Patient went to restroom and voided. Bladder scan done and patient showed 397 ml of residual urine. Patient was then asked to demonstrate self cath. Patient had no issue with self cath and got 650ml of residual. Patient encouraged to continue self cath and contact office if any new difficulties occur. documented in this encounter [facility] 05-31-2024 Note HNO ID: [id number] Author: GREGORY CASAREZ RN Service: ? Author Type: Registered Nurse Type: Progress Notes Filed: 05/31/2024 11:01 Note Text: Patient presents with urinary retention. Patient states he self caths but states that since taking flomax 0.8 mg he has been urinating much better. Patient asked to go to restroom and see if he could empty out his bladder so it could be scanned. Patient went to restroom and voided. Bladder scan done and patient showed 397 ml of residual urine. Patient was then asked to demonstrate self cath. Patient had no issue with self cath and got 650ml of residual. Patient encouraged to continue self cath and contact office if any new difficulties occur. [facility] 05-25-2024 Telephone encounter Note Left message on voicemail to let us know if he needs anymore. [facility] 05-25-2024 Miscellaneous Notes Left message on voicemail to let us know if he needs anymore. I will put 10 14fr coude self caths at our service desk associate. [facility] [address] [facility] 2nd floor middle desk. SonArnoldo notified and they will have them picked up tomorrow. Ninfa Patel MA Spoke with patient and we will touch based tomorrow if son needs to come here or if they ordered for him before leaving the Hospital. Patient saw Sarah Ware on 05-16-2024 and passed Voiding trial and was given some #14 BD Coude catheters to go home and straight cath prn. He ended up falling at home and was on the floor for 18 hours until he got help. He is hoping to get discharged from [facility] today but doesn't have that many catheters til the Nurse visit on 05-31-2024. Anyway to get some #14 Coude catheter samples from [place] office to get him til 05-31-2024? As he is there, if not he will have son try and drive to [place] to get. documented in this encounter [facility] 05-24-2024 Telephone encounter Note I will put 10 14fr coude self caths at our service desk associate. [facility] [address] [facility] 2nd floor middle desk. SonArnoldo notified and they will have them picked up tomorrow. Ninfa Patel MA [facility] 05-24-2024 Telephone encounter Note Spoke with patient and we will touch based tomorrow if son needs to come here or if they ordered for him before leaving the Hospital. [facility] 05-24-2024 Note [facility] Medical Records Department [address] [place] [address] Discharge Summary 05/24/24 1445 MR#: [id number] Acct: [id number] Name: ZACHARY SHORT Rep #: [id number] : 1945 78 From: Brayden Gaona DO PCP: Dr. Ailin Pierson MD Status:DIS IN [facility] Prov[facility] Date of Admission: 05/22/24 Date of Discharge: 05/24/24 Primary Care Physician: Dr. Ailin Pierson MD Consultations 05/22/24 18:56 Consult: Orthopedics Routine Consulting Provider: Samuel Adler Reason for Consult: elbow fracture EMERGENT Consult: No MD Notified: Yes Date Notified: 05/22/24 Time Notified: 07:54 Method of Notification: Verbal Reason For Visit: FALL Diagnosis Discharge Diagnosis (1) Right elbow pain: Status: Acute Code(s): M25.521 - Pain in right elbow Plan 1. Acute cystitis related to temporary indwelling Mahoney catheter-patient will remain on IV Rocephin, urine cultures pending, patient would like to try to discontinue his Mahoney catheter and I told him tomorrow I would discontinue it and make sure that he was able to straight cath without a residual before he goes home. #2 rhabdomyolysis-patient's BMP will be rechecked tomorrow #3 prostate cancer-complicates care, management, recovery, and prognosis, patient is due to follow- up with his urologist as an outpatient #4 possible fracture of the coronoid process of the right elbow-orthopedic surgery will see the patient in consultation Total clinical time spent by myself addressing the patient's medical issues, reviewing all of his data, and collaborating with patient's care team: 35 minutes Medications at Discharge Home Medications aspirin 81 mg capsule 81 mg PO DAILY prevention 05/22/24 azelastine 137 mcg (0.1 %) nasal spray 1 spray intranasal DAILY nasal 05/22/24 ergocalciferol (vitamin D2) 1,250 mcg (50,000 unit) capsule 1,250 mcg PO .weekly bones 05/22/24 lisinopril 10 mg-hydrochlorothiazide 12.5 mg tablet 1 tab PO DAILY bp 05/22/24 naproxen 500 mg tablet 500 mg PO BID PRN PRN pain 05/22/24 polyethylene glycol 3350 17 gram/dose oral powder 17 g PO DAILY PRN bowels 05/22/24 cefdinir 300 mg capsule 300 mg PO BID #8 caps 05/24/24 tamsulosin 0.4 mg capsule 0.8 mg (2 x 0.4 mg) PO QHS #60 caps 05/24/24 Hospital Course Operations None Procedures None Summary of Care Provided Minutes Spent on Discharge: 31 Hospital Course: This 78-year-old white male was seen in the emergency room at [facility] for generalized weakness and a fall from his bed with no serious injuries but he could not get up off his floor. He also complained of a fever at home. Workup in the emergency room included a white blood cell count which was elevated at 14.9, hemoglobin is 12.9, BUN was 22, and CPK was 9592. AST was elevated to 48 and ALT was 75. UA was abnormal for white blood cell count of 25-50, there is +2 bacteria. Patient was admitted for rhabdomyolysis generalized weakness and acute UTI. There was question about a closed fracture of the right elbow, patient was seen by orthopedic surgery however and they did not feel the patient had a fracture. Patient was seen by PT and OT, he was given IV antibiotics and improved during his hospital stay. Patient's Mahoney catheter was removed prior to discharge home. On 05/24/2024, patient was seen and examined: On examination he appeared in good health and spirits. Vital signs as documented. Skin warm and dry and without overt rashes. Neck without JVD, neck was supple, trachea midline, thyroid was normal. Lungs clear bilaterally, normal air movement was noted. Heart exam notable for regular rhythm, normal sounds and absence of murmurs, rubs or gallops. Abdomen unremarkable and without evidence of organomegaly, masses, or abdominal aortic enlargement. Bowel sounds are present, abdomen is not distended. Extremities nonedematous, no cyanosis was noted, no clubbing was noted. Neuro: Cranial nerves II through XII are grossly intact, no focal motor deficits were noted, sensation to light touch and pinprick intact, motor exam 5/5 throughout. Psych: Patient is alert and oriented x3, he does not appear anxious or depressed, he does not appear agitated. Patient was discharged home in stable condition on 05/24/2024 Weight / BMI Weight Weight: 108.5 kg Body Mass Index (BMI) 32.4 ABG / Lab / Microbiology Data 05/23/24 05:24 05/24/24 05:22 Laboratory: Laboratory Results - last 24 hr 05/24/24 05:22: Sodium 138, Potassium 3.5, Chloride 107, Carbon Dioxide 26.0, Anion Gap 5, BUN 15, Creatinine 0.71, Estim Creat Clear Calc 93.71, Est GFR (MDRD) Af Amer 137, Est GFR (MDRD) Non-Af 113, BUN/Creatinine Ratio 21.1 H, Glucose 102, Calcium 8.7 Microbiology: Microbiology 05/22/24 15:27 Blood Culture (Wb) - Left Wrist Blood Culture - Final (more content not included)... [facility] 05-24-2024 Telephone encounter Note Patient saw Sarah Ware on 05-16-2024 and passed Voiding trial and was given some #14 BD Coude catheters to go home and straight cath prn. He ended up falling at home and was on the floor for 18 hours until he got help. He is hoping to get discharged from [facility] today but doesn't have that many catheters til the Nurse visit on 05-31-2024. Anyway to get some #14 Coude catheter samples from [place] office to get him til 05-31-2024? As he is there, if not he will have son try and drive to [place] to get. [facility] 05-22-2024 Evaluation note Diagnosis Onset Date Resolution Acute on chronic urinary retention inactive May 22, 5:51pm Acute UTI inactive May 22, 2024 5:51pm Closed fracture of right elbow inactive May 22, 5:51pm Fall inactive May 22, 2024 5:51pm Fever inactive May 22, 2024 5:51pm Leukocytosis inactive April 5:51pm Rhabdomyolysis inactive April 302023 5:51pm Right elbow pain inactive May 22, 2024 5:51pm Weakness inactive May 22, 2024 5:51pm Contusion of left flank inactive J anuary 2024 11:44am Fall inactive June 19, 2024 11:44am Fracture of transverse process of lumbar vertebra inactive June 19 11:44am Fracture, ribs inactive June 192024 11:44am [facility] Work Phone: 1(220) 730-922612-18-2024 Instructions* Patient Instructions* Sarah Ware APRN.MARITO - 05/16/2024 10:46 AM EST self cath as needed [facility] NoteHNO ID: [id number] Author: SARAH WARE APRN.CNP Service: ? Author Type: Nurse Practitioner Type: Progress Notes Filed: 07/24/2024 13:09 Note Text: Zachary Short is a 78 year old male who presents today for a follow up for Patient presents with: ER F/U Urinary Retention CHIEF COMPLAINT AND HISTORY OF PRESENT ILLNESS CC: urine retention 78 year old male with a history of prostate cancer, lisbeth 3+4=7 MRI fusion on 11/06/2023, ipsa 12.32, presents for ER follow up, he reports that he was changing his furnace filter and fell at home about 3 weeks ago, from that time on he had lower back pain, he presented to the [place] ER on 05/09/2024. Treated with pain medication? which caused constipation then he had a difficult time emptying his bladder. Voiding in small amounts. 7 days ago the pain increased so he went to the ER. Mahoney was placed and has been draining a large amount of urine. He has increased his fluids intake He has not taken pain meds in 2 weeks He has been taking flomax 0.4 mg daily Radiation oncology consult 12/2023, patient decided not to receive treatment Latest Ref Rng 10/06/2016 03/23/2022 03/25/2023 05/10/2023 08/18/2023 PSA Screening <2.60 ng/mL 2.58 9.18 (H) PSA <2.60 ng/mL 14.20 (H) 12.17 (H) 17.02 (H) NM bone scan negative 12/09/2023 11/21/2023 pathology FINAL DIAGNOSIS A. 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 20% pattern 4. B. Prostate, left lateral apex, biopsy: - Benign prostatic tissue. C. Prostate, left lateral mid, biopsy: - Benign prostatic tissue. D. Prostate, left lateral base, biopsy: - Benign prostatic tissue. E. Prostate, right lateral apex, biopsy: - Benign prostatic tissue. F. Prostate, right lateral mid, biopsy: - Benign prostatic tissue. G. Prostate, right lateral base, biopsy: - Benign prostatic tissue. VITALS: Height 182.9 cm (6'), weight 109.3 kg (241 lb). ALLERGIES: Patient has no known allergies. MEDICATIONS: Current Outpatient Medications Medication Sig Dispense Refill ramelteon (ROZEREM) 8 mg tablet Take 1 tablet by mouth daily at bedtime. 30 tablet 1 azelastine 0.1% nasal spray Use 1 [place] in each nostril two times a day. 30 mL 1 lisinopril-hydroCHLOROthiazide (ZESTORETIC) 10-12.5 mg per tablet Take 1 tablet by mouth once daily. 90 tablet 3 tamsulosin (FLOMAX) 0.4 mg Take 1 capsule by mouth daily at bedtime. 90 capsule 3 ergocalciferol 50,000 unit capsule (VITAMIN D2, DRISDOL) Take 1 capsule by mouth two times a week. TO BE TAKEN ORALLY DIRECTED. Take 1 tablet by mouth twice weekly [id number], then decrease to 1 tablet weekly. 8 capsule 5 naproxen (NAPROSYN) 500 mg tablet Take 1 tablet by mouth two times a day as needed (for pain/inflammation). Take with food. 30 tablet 1 polyethylene glycol 3350 (MIRALAX) 17 gram/dose powder Take 17 g by mouth once daily. Dissolve dose in 4 - 8 ounces of liquid and take as directed. 510 g 0 aspirin, enteric coated (ASPIRIN, ENTERIC COATED) 81 mg EC tablet Take 1 tablet by mouth once daily. No current facility-administered medications for this visit. 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 Only seasonal now PAST SURGICAL HISTORY: PAST SURGICAL HISTORY Procedure Laterality Date ARTHROPLASTY HEMIARTHROPLASTY 09/10/2011 left shoulder Ari arthroplasty ARTHROPLASTY HEMIARTHROPLASTY 03/07/2012 left shoulder revision COLONOSCOPY AND POLYPECTOMY 3/26/12 repeat 5 years COLONOSCOPY FLX DX W/COLLJ SPEC WHEN PFRMD 10/19/2016 Normal colonoscopy-family history-5 year follow-up NECK 07/17/2007 Anterior cervical discectomy allograft fusion on c-4,c-5,c-6 FAMILY HISTORY: FAMILY HISTORY Problem Relation Age of Onset Colon Cancer Father Cancer Mother metastatic melanoma All histories reviewed on this date 05/16/2024: Yes REVIEW OF SYSTEMS: CONSTITUTIONAL: Patient reports no recent fever or weight loss CARDIOVASCULAR: Negative for chest pain. All other systems reviewed and are negative other than HPI. PHYSICAL EXAM: constitutional: appears healthy in no acute distress gu: mahoney catheter in place RADIOLOGY REPORTS REVIEWED: Yes LAB RESULTS REVIEWED: Yes (more content not included)...[facility]12-18-2024 History of Present illness Narrative* Sarah Ware APRN.[facility] - 05/16/2024 10:13 AM EST Zachary Short is a 78 year old male who presents today for a follow up for Patient presents with: ER F/U Urinary Retention CHIEF COMPLAINT & HISTORY OF PRESENT ILLNESS CC: urine retention 78 year old male with a history of prostate cancer, lisbeth 3+4=7 MRI fusion on 11/06/2023, ipsa 12.32, presents for ER follow up, he reports that he was changing his furnace filter and fell at home about 3 weeks ago, from that time on he had lower back pain, he presented to the [place] ER on 05/09/2024. Treated with pain medication? which caused constipation then he had a difficult time emptying his bladder. Voiding in small amounts. 7 days ago the pain increased so he went to the ER. Mahoney was placed and has been draining a large amount of urine. He has increased his fluids intake He has not taken pain meds in 2 weeks He has been taking flomax 0.4 mg daily Radiation oncology consult 12/2023, patient decided not to receive treatment Latest Ref Rng 10/06/2016 03/23/2022 03/25/2023 05/10/2023 08/18/2023 PSA Screening <2.60 ng/mL 2.58 9.18 (H) PSA <2.60 ng/mL 14.20 (H) 12.17 (H) 17.02 (H) NM bone scan negative 12/09/2023 11/21/2023 pathology FINAL DIAGNOSIS A. 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 20% pattern 4. B. Prostate, left lateral apex, biopsy: - Benign prostatic tissue. C. Prostate, left lateral mid, biopsy: - Benign prostatic tissue. D. Prostate, left lateral base, biopsy: - Benign prostatic tissue. E. Prostate, right lateral apex, biopsy: - Benign prostatic tissue. F. Prostate, right lateral mid, biopsy: - Benign prostatic tissue. G. Prostate, right lateral base, biopsy: - Benign prostatic tissue. VITALS: Height 182.9 cm (6'), weight 109.3 kg (241 lb). ALLERGIES: Patient has no known allergies. MEDICATIONS: Current Outpatient Medications Medication Sig Dispense Refill ramelteon (ROZEREM) 8 mg tablet Take 1 tablet by mouth daily at bedtime. 30 tablet 1 azelastine 0.1% nasal spray Use 1 [place] in each nostril two times a day. 30 mL 1 lisinopril-hydroCHLOROthiazide (ZESTORETIC) 10-12.5 mg per tablet Take 1 tablet by mouth once daily. 90 tablet 3 tamsulosin (FLOMAX) 0.4 mg Take 1 capsule by mouth daily at bedtime. 90 capsule 3 ergocalciferol 50,000 unit capsule (VITAMIN D2, DRISDOL) Take 1 capsule by mouth two times a week. TO BE TAKEN ORALLY DIRECTED. Take 1 tablet by mouth twice weekly [id number], then decrease to 1 tablet weekly. 8 capsule 5 naproxen (NAPROSYN) 500 mg tablet Take 1 tablet by mouth two times a day as needed (for pain/inflammation). Take with food. 30 tablet 1 polyethylene glycol 3350 (MIRALAX) 17 gram/dose powder Take 17 g by mouth once daily. Dissolve dosein 4 - 8 ounces of liquid and take as directed. 510 g 0 aspirin, enteric coated (ASPIRIN, ENTERIC COATED) 81 mg EC tablet Take 1 tablet by mouth once daily. No current facility-administered medications for this visit. 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 Only seasonal now PAST SURGICAL HISTORY: PAST SURGICAL HISTORY Procedure Laterality Date ARTHROPLASTY HEMIARTHROPLASTY 09/10/2011 left shoulder Ari arthroplasty ARTHROPLASTY HEMIARTHROPLASTY 03/07/2012 left shoulder revision COLONOSCOPY & POLYPECTOMY 08/23/11 repeat 5 years COLONOSCOPY FLX DX W/COLLJ SPEC WHEN PFRMD 10/19/2016 Normal colonoscopy-family history-5 year follow-up NECK 07/17/2007 Anterior cervical discectomy allograft fusion on c-4,c-5,c-6 FAMILY HISTORY: FAMILY HISTORY Problem Relation Age of Onset Colon Cancer Father Cancer Mother metastatic melanoma All histories reviewed on this date 05/16/2024: Yes REVIEW OF SYSTEMS: CONSTITUTIONAL: Patient reports no recent fever or weight loss CARDIOVASCULAR: Negative for chest pain. All other systems reviewed and are negative other than HPI. PHYSICAL EXAM: constitutional: appears healthy in no acute distress gu: mahoney catheter in place RADIOLOGY REPORTS REVIEWED: Yes LAB RESULTS REVIEWED: Yes IMAGING STUDIES INDEPENDENTLY REVIEWED: No OLD RECORDS REVIEWED: Yes: Extensive: No Patient presents for trial of voiding. Bladder filled with 400 cc of sterile water, balloon deflated, mahoney catheter removed without difficulty, balloon intact. Patient voided 100 cc's of yellow urine. ASSESSMENT/PLAN: 1. Urine retention - ICD9: 788.20, ICD10: R33.9 (primary diagnosis) -passed trial of void -instructed on CIC using a #14 coude catheter if unable to void, contact our office -follow up in 2 weeks for PVR 2. BPH with obstruction/lower urinary tract symptoms - ICD9: 600.01, 599.69, ICD10: N40.1, N13.8 -continue with flomax 0.4 mg po daily 3. Prostate cancer (HCC) - ICD9: 185, ICD10: C61 -follow up with Dr. Blanton next month Patient to schedule follow up in 2 weeks. Sarah Ware APRN.[facility] documented in this encounter[facility] Telephone encounter Note * Telephone Encounter - Roxana Reza MA - 05/14/2024 2:35 PM EST Referral faxed as requested. [facility]12-16-[facility] Miscellaneous Notes* Telephone Encounter - Roxana Reza MA - 05/14/2024 2:35 PM EST Referral faxed as requested. * Telephone Encounter - Kayla Betancourt APRN.CNP - 05/14/2024 12:26 PM EST Order placed. Please fax as requested and update patient. Thank you Kayla Betancourt APRN.[facility] * Telephone Encounter - Gildardo Wade RN - 05/14/2024 11:48 AM EST Pt returned call. Pt asking provider to send referral to Dr. Soto, urology at [facility]. * Telephone Encounter - Hari Rodriguez RN - 05/14/2024 11:25 AM EST Called and left a voicemail for the Patient to call back and ask for a nurse to receive the providers message. Hari Rodriguez RN * Telephone Encounter - Kayla Betancourt APRN.CNP - 05/14/2024 9:41 AM EST He needs to see urology. Please let us know who to send consult to? Thank you Kayla Betancourt APRN.[facility] * Telephone Encounter - Hari Rodriguez RN - 05/14/2024 8:38 AM EST Pt called in and reports he was in [facility] ER on Tuesday and they placed a urinary mahoney. He states he has prostate cancer and he isn't going to have radiation or chemo for it, and he was told he was too old to have his prostate removed. Pt states he was having urinary retention and was in a lot of paindue to it. They only gave him a leg bag, so it fills up really fast and it worries him at bed time.He said the people in the ER told him that Urology would give him a better bag and show him how to take care of it. I told the Pt to make sure to clean the tubing at the tip of his penis and to move from his penis away down the tubing, to not bring infection toward himself. I told him to use a washcloth with soap and water, or wet wipes and to clean it at least once to twice a day. Pt states they told him to see Dr Pierson and Urology. He said he doesn't know if he needs to see Dr Pierson or just go to Urology. He said [facility] ER was telling him to see Dr Soto. Pt sates he has seen Dat KOHLER here and he isn't 'overjoyed' with him, the Pt said he isn't aggressive enough. The Pt was askingif we had another urologist here at [facility] and I told him we had Kt Collins NP, but he was asking for a doctor. He states he has seen Dr Blanton, but said he told him that he is a surgeon and not a urologist. He didn't know if Dr Pierson thought he should see Dr Soto. He was told in the ER that he may have to have the mahoney for the rest of his life. I didn't make an appointment with Dr Pierson, because Pt wanted provider him to come in or to just got to Urology. I told him if anyone removed the mahoney it would be urology. Please call and advise. documented in this encounterOhiohealth [facility]12-16-2024 Telephone encounter Note * Telephone Encounter - Kayla Betancourt APRN.CNP - 05/14/2024 12:26 PM EST Order placed. Please fax as requested and update patient. Thank you Kayla Betancourt APRN.CNP [facility]12-16-2024 Telephone encounter Note* Telephone Encounter - Gildardo Wade RN - 05/14/2024 11:48 AM EST Pt returned call. Pt asking provider to send referral to Dr. Soto, urology at [facility]. [facility]12-16-[facility] Telephone encounter Note* Telephone Encounter - Hari Rodriguez RN - 05/14/2024 11:25 AM EST Called and left a voicemail for the Patient to call back and ask for a nurse to receive the providers message. Hari Rodriguez RN [facility]12-16-2024 Telephone encounter Note* Telephone Encounter - Kayla Betancourt APRN.CNP - 05/14/2024 9:41 AM EST He needs to see urology. Please let us know who to send consult to? Thank you Kayla Betancourt APRN.CNP [address]16-2024 Telephone encounter Note* Telephone Encounter - Hari Rodriguez RN - 05/14/2024 8:38 AM EST Pt called in and reports he was in [facility] ER on Tuesday and they placed a urinary mahoney. He states he has prostate cancer and he isn't going to have radiation or chemo for it, and he was told he was too old to have his prostate removed. Pt states he was having urinary retention and was in a lot of paindue to it. They only gave him a leg bag, so it fills up really fast and it worries him at bed time.He said the people in the ER told him that Urology would give him a better bag and show him how to take care of it. I told the Pt to make sure to clean the tubing at the tip of his penis and to move from his penis away down the tubing, to not bring infection toward himself. I told him to use a washcloth with soap and water, or wet wipes and to clean it at least once to twice a day. Pt states they told him to see Dr Pierson and Urology. He said he doesn't know if he needs to see Dr Pierson or just go to Urology. He said [facility] ER was telling him to see Dr Soto. Pt sates he has seen Dat KOHLER here and he isn't 'overjoyed' with him, the Pt said he isn't aggressive enough. The Pt was askingif we had another urologist [facility] and I told him we had Kt Collins NP, but he was asking for a doctor. He states he has seen Dr Blanton, but said he told him that he is a surgeon and not a urologist. He didn't know if Dr Pierson thought he should see Dr Soto. He was told in the ER that he may have to have the mahoney for the rest of his life. I didn't make an appointment with Dr Pierson, because Pt wanted provider him to come in or to just got to Urology. I told him if anyone removed the mahoney it would be urology. Please call and advise. [facility]11-27-[facility] Telephone encounter Note* Telephone Encounter - Mali Saenz LPN - 04/25/2024 9:49 AM EST Rec'd approval from [facility] from 04/23/24 until further notice. Pharmacy notified [facility]11-27-[facility] Miscellaneous Notes* Telephone Encounter - Mali Saenz LPN - 04/25/2024 9:49 AM EST Rec'd approval from [facility] from 04/23/24 until further notice. Pharmacy notified * Telephone Encounter - Mali Saenz LPN - 04/24/2024 9:37 AM EST Unable to complete PA electronically. Did complete via covermymeds ZACHARY HAN ([place]: [id number]) PA Rx #: [id number] Need Help? Call us at Status sent iconSent to Plan today Drug Ramelteon 8MG tablets ePA cloud logo Form [employer] Electronic Prior Authorization Request Form ([facility]) Original Claim Info 569,MR IF LEVEL OF CARE CHANGE CALL HELP DESKCLOSED FORM. For RxLocal Coupon Manuel of: $58.34 submit to BIN: [id number] PCN: CP Group: [id number] --Service provided at no cost and no switch fee to the pharmacy-- documented in this encounterOhiohealth [facility]11-26-2024 Telephone encounter Note * Telephone Encounter - Mali Saenz LPN - 04/24/2024 9:37 AM EST Unable to complete PA electronically. Did complete via covermymeds ZACHARY HAN ([place]: [id number]) PA Rx #: [id number] Need Help? Call us at Status sent iconSent to Plan today Drug Ramelteon 8MG tablets ePA cloud logo Form [employer] Electronic Prior Authorization Request Form ([facility]) Original Claim Info 569,MR IF LEVEL OF CARE CHANGE CALL HELP DESKCLOSED FORM. For RxLocal Coupon Manuel of: $58.34 submit to BIN: [id number] PCN: [id number] Group: [id number] --Service provided at no cost and no switch fee to the pharmacy-- [facility]11-25-[facility] History of Present illness Narrative* Ailin Pierson MD - 04/23/2024 9:00 AM EST Images from the original note were not included. Zachary Short is a 78 year old male here for a Medicare wellness visit. Medicare Health Risk Assessment General Health Exercise: Minutes/Day 30 min Exercise: Days/Week 3 days Alcohol: Daily Use 2-4 times a month Alcohol: Drinks/Day 1 or 2 Alcohol: 6 or more drinks Never Feel off balance Yes Concerns: Teeth/Dentures No Concerns: Sexual function No Troubled by feelings None of the above Frequency: Eating healthy diet More than half the days ADLs requiring help None Safety precautions in home/vehicle Yes Smoke, vape, chews tobacco No Difficulty hearing No Difficulty seeing No Current Providers Specialists: I have reviewed specialist-related care of the patient in the medical record. Medical/Family history review Reviewed and updated problem list, medical/surgical/family/social history, medications, and allergies. Opioid use review Opioid Medications (last 90 days) No data to display Depression Screening Cognitive screening was normal last time and normal. Cognitive screening reviewed and No further action needed (score 3-5). Functional Observation Was the patient's Timed Up & Go test unsteady or >= 12 seconds? No Advance Care Planning Surrogate decision maker and/or advance care plan documented Measurements BP 118/78 Pulse 77 Resp 16 Wt 111 kg (244 lb 11.4 oz) BMI 30.43 kg/m Vision Screening: Follows with optometry/ophthalmology Assessment/Plan Medicare annual wellness visit, subsequent (Z00.00) - Counseled on healthy diet and regular exercise - Fall avoidance information provided - Personalized prevention plan provided Reason for Visit Patient presents with: Medicare Wellness Exam Zachary Short is a 78 year old male who presents here today for Above Complaints.. Health Maintenance Depression Screening Anxiety Screening DTaP,Tdap,Td Vaccine(1 - Tdap) Shingrix Vaccine(1 of 2) RSV Vaccine(1 - 1-dose 60+ series) BP Controlled (<130/80) Advance Directive Discussion HPI This is a very pleasant 78-year-old gentleman with a past medical history of hypertension, mixed hyperlipidemia recent diagnosis of prostate cancer, he also has history of skin cancer, arthritis of the shoulder, obesity, rosacea. Prostate cancer: High grade Lisbeth score of 7. NM study did not show likely tracer Uptake so unlikely he has metastasized. He has to decide what he would like to do. Met with the oncologist who offered radiation and hormonal therapies. Impressively read up on things. Tried to discuss goals of care, she enjoys his boat but sold it, was too much to care for. He has afarm that was 80 acres, and is going to [employer]. He used to spend a lot more time there than now. Enjoys spending time with his sons. He does have some interest In the mineral and oil wells [employer] properties and services has. That keeps him interested and occupied. He really missed his , who recently. He lives one day at a time. What he fears most is being with fecal and tubes, like colostomy. He does not want to live that time. He has lived a good life and wants to go peaceful He has not decided what he to do as yet. We discussed that exercise would really helpful to lose weight as he is still contemplating on prostate cancer treatment and does not want to do anything aggressive. Recently he fell down the basement steps. He does not like to go down the basement steps but his washer and dryer are there, so has to go down a couple times a week for laundry and that is when he puts himself at risk so his son's, they are thinking of moving out to a more comfortable and safe place. He does some exercises in bed. No problem-specific Assessment & Plan notes found for this encounter. 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 Only seasonal now PAST SURGICAL HISTORY Procedure Laterality Date ARTHROPLASTY HEMIARTHROPLASTY 09/10/2011 left shoulder Ari arthroplasty ARTHROPLASTY HEMIARTHROPLASTY 03/07/2012 left shoulder revision COLONOSCOPY & POLYPECTOMY 08/23/11 repeat 5 years COLONOSCOPY FLX DX W/COLLJ SPEC WHEN PFRMD 10/19/2016 Normal colonoscopy-family history-5 year follow-up NECK 07/17/2007 Anterior cervical discectomy allograft fusion on c-4,c-5,c-6 FAMILY HISTORY Problem Relation Age of Onset Colon Cancer Father Cancer Mother metastatic melanoma Social History Tobacco Use Smoking status: Never Passive exposure: Never Smokeless tobacco: Never Vaping Use Vaping status: Never Used Substance Use Topics Alcohol use: Yes Comment: socially, 3-4 beers/year Drug use: No Past medical history, appointments, medications, allergies reviewed. Pertinent Lab/Diagnostic Studies are reviewed and discussed today Current Outpatient Medications: lisinopril-hydroCHLOROthiazide (ZESTORETIC) 10-12.5 mg per tablet tamsulosin (FLOMAX) 0.4 mg ergocalciferol 50,000 unit capsule (VITAMIN D2, DRISDOL) naproxen (NAPROSYN) 500 mg tablet polyethylene glycol 3350 (MIRALAX) 17 gram/dose powder aspirin, enteric coated (ASPIRIN, ENTERIC COATED) 81 mg EC tablet Review of Systems CONSTITUTIONAL: No fevers, chills night sweats, unintended weight loss CARDIOVASCULAR: No chest pain, dyspnea, palpitations, orthopnea, PND, ankle edema. PULM: No dyspnea, unexplained cough. GI: No dysphagia/odynophagia, problematic reflux, constipation, diarrhea, changes in stool habits, hematochezia, melena. : No new urinary complaints, including dysuria, gross hematuria or pyuria. NEURO: No new balance problems, peripheral weakness/paresthesias or numbness of concern. Physical Exam BP 118/78 Pulse 77 Resp 16 Wt 111 kg (244 lb 11.4 oz) BMI 30.43 kg/m General appearance: Well appearing, alert, in no acute distress, well nourished. Skin: Skin color, texture, turgor normal, no suspicious rashes or lesions Head: Normocephalic, no masses, lesions, tenderness or abnormalities Eyes: Anicteric sclera. Pupils are equally round and reactive to light. Extraocular movements are intact. Lungs: Lungs clear to auscultation. No wheezing, rhonchi, rales Heart: RRR without murmur, gallop, or rubs. Extremities: No deformities, edema, skin discoloration, clubbing or cyanosis. Good capillary refill. ASSESSMENT/PLAN: 1. Medicare annual wellness visit, subsequent - ICD9: V70.0, ICD10: Z00.00 (primary diagnosis) - Counseled on healthy diet and regular exercise 2. Insomnia, unspecified type - ICD9: 780.52, ICD10: G47.00 Trial of - RAMELTEON 8 MG TABLET 3. Prostate cancer (HCC) - ICD9: 185, ICD10: C61 He is still to come to a conclusion with what he is going to do. I will try to offer as much as possible advise and do some life projections. He will think about it and make a decision. He is leaningtowards not doing anything aggressive I spent 30 minutes with the patient, talking to him because he needed some support and counseling Ailin Pierson MD documented in this encounterOhio[facility] NoteHNO ID: [id number] Author: AILIN PIERSON MD Service: ? Author Type: Physician Type: Progress Notes Filed: 04/23/2024 18:06 Note Text: Zachary Short is a 78 year old male here for a Medicare wellness visit. Medicare Health Risk Assessment General Health Exercise: Minutes/Day 30 min Exercise: Days/Week 3 days Alcohol: Daily Use 2-4 times a month Alcohol: Drinks/Day 1 or 2 Alcohol: 6 or more drinks Never Feel off balance Yes Concerns: Teeth/Dentures No Concerns: Sexual function No Troubled by feelings None of the above Frequency: Eating healthy diet More than half the days ADLs requiring help None Safety precautions in home/vehicle Yes Smoke, vape, chews tobacco No Difficulty hearing No Difficulty seeing No Current Providers Specialists: I have reviewed specialist-related care of the patient in the medical record. Medical/Family history review Reviewed and updated problem list, medical/surgical/family/social history, medications, and allergies. Opioid use review Opioid Medications (last 90 days) No data to display Depression Screening Cognitive screening was normal last time and normal. Cognitive screening reviewed and No further action needed (score 3-5). Functional Observation Was the patient's Timed Up AND Go test unsteady or >= 12 seconds? No Advance Care Planning Surrogate decision maker and/or advance care plan documented Measurements BP 118/78 Pulse 77 Resp 16 Wt 111 kg (244 lb 11.4 oz) BMI 30.43 kg/m? Vision Screening: Follows with optometry/ophthalmology Assessment/Plan Medicare annual wellness visit, subsequent (Z00.00) - Counseled on healthy diet and regular exercise - Fall avoidance information provided - Personalized prevention plan provided Reason for Visit Patient presents with: Medicare Wellness Exam Zachary Short is a 78 year old male who presents here today for Above Complaints.. Health Maintenance Depression Screening Anxiety Screening DTaP,Tdap,Td Vaccine(1 - Tdap) Shingrix Vaccine(1 of 2) RSV Vaccine(1 - 1-dose 60+ series) BP Controlled (<130/80) Advance Directive Discussion HPI This is a very pleasant 78-year-old gentleman with a past medical history of hypertension, mixed hyperlipidemia recent diagnosis of prostate cancer, he also has history of skin cancer, arthritis of the shoulder, obesity, rosacea. Prostate cancer: High grade Nordheim score of 7. NM study did not show likely tracer Uptake so unlikely he has metastasized. He has to decide what he would like to do. Met with the oncologist who offered radiation and hormonal therapies. Impressively read up on things. Tried to discuss goals of care, she enjoys his boat but sold it, was too much to care for. 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 He used to spend a lot more time there than now. Enjoys spending time with his sons. 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 That keeps him interested and occupied. He really missed his , who recently. He lives one day at a time. What he fears most is being with fecal and tubes, like colostomy. He does not want to live that time. He has lived a good life and wants to go peaceful He has not decided what he to do as yet. We discussed that exercise would really helpful to lose weight as he is still contemplating on prostate cancer treatment and does not want to do anything aggressive. Recently he fell down the basement steps. He does not like to go down the basement steps but his washer and dryer are there, so has to go down a couple times a week for laundry and that is when he puts himself at risk so his son's, they are thinking of moving out to a more comfortable and safe place. He does some exercises in bed. No problem-specific Assessment AND Plan notes found for this encounter. 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 Only seasonal now PAST SURGICAL HISTORY Procedure Laterality Date ARTHROPLASTY HEMIARTHROPLASTY 09/10/2011 left shoulder Ari arthroplasty ARTHROPLASTY HEMIARTHROPLASTY 03/07/2012 left shoulder revision COLONOSCOPY AND POLYPECTOMY 08/23/11 repeat 5 years COLONOSCOPY FLX DX W/COLLJ SPEC WHEN PFRMD 10/19/2016 Normal colonoscopy-family history-5 year follow-up NECK 07/17/2007 Anterior cervical discectomy allograft fusion on c-4,c-5,c-6 FAMILY HISTORY Problem Relation Age of Onset Colon Cancer Father Cancer Mother metastatic melanoma Social History Tobacco Use Smoking status: Never Passive exposure: Never Smokeless toba (more content not included)...[facility] 04-16-2024 Telephone encounter Note* Telephone Encounter - Kayla Betancourt APRN.CNP - 04/16/2024 12:49 PM EST Fasting blood work ordered Thank you Kayla Betancourt APRN.CNP [facility]11-18-2024 Miscellaneous Notes* Telephone Encounter - Kayla Betancourt APRN.CNP - 04/16/2024 12:49 PM EST Fasting blood work ordered Thank you Kayla Betancourt APRN.CNP * Telephone Encounter - Florence Goldberg RN - 04/16/2024 12:17 PM EST Patient calls and is asking if provider wants him to get labs done prior to medicare wellness visiton 04/23/2024. Please review and advise, Florence Goldberg RN documented in this encounterOhio[facility]11-18-2024 Telephone encounter Note * Telephone Encounter - Florence Goldberg RN - 04/16/2024 12:23 PM EST The patient has been identified by name and date of : Yes Caregiver verified no other encounters exist for this prescription request: Yes Caregiver confirmed with patient/requestor that no other refills are due, in the near future, with this provider at this time: Yes The last office visit in the department: 12/29/2023 Does the patient have a future office visit with this provider/department: Yes 04/23/2024 Requested Prescriptions Pending Prescriptions Disp Refills lisinopril-hydroCHLOROthiazide (ZESTORETIC) 10-12.5 mg per tablet 90 tablet 3 Sig: Take 1 tablet by mouth once daily. tamsulosin (FLOMAX) 0.4 mg 90 capsule 3 Sig: Take 1 capsule by mouth daily at bedtime. Florence Goldberg RN April 16, 2024 12:23 PM [facility]11-18-2024 Miscellaneous Notes* Telephone Encounter - Florence Goldberg RN - 04/16/2024 12:23 PM EST The patient has been identified by name and date of : Yes Caregiver verified no other encounters exist for this prescription request: Yes Caregiver confirmed with patient/requestor that no other refills are due, in the near future, with this provider at this time: Yes The last office visit in the department: 12/29/2023 Does the patient have a future office visit with this provider/department: Yes 04/23/2024 Requested Prescriptions Pending Prescriptions Disp Refills lisinopril-hydroCHLOROthiazide (ZESTORETIC) 10-12.5 mg per tablet 90 tablet 3 Sig: Take 1 tablet by mouth once daily. tamsulosin (FLOMAX) 0.4 mg 90 capsule 3 Sig: Take 1 capsule by mouth daily at bedtime. Florence Goldberg RN April 16, 2024 12:23 PM documented in this encounterOhio[facility]11-18-2024 Telephone encounter Note * Telephone Encounter - Florence Goldberg RN - 04/16/2024 12:17 PM EST Patient calls and is asking if provider wants him to get labs done prior to medicare wellness visiton 04/23/2024. Please review and advise, Florence Goldberg RN [facility]11-12-2024 NotePatient Outreach (INTMMN) ZACHARY SHORT ([id number]) 1945 M Date Time Provider Department 04/10/24 AILIN PIERSON INTROHIT During your visit today, we recorded the following information about you: Allergies As of Date: 04/10/2024 (No Known Allergies) Date Reviewed: 01/05/2024 Reviewed by: Poonam Rice RN - Fully Assessed Visit Diagnosis:Medication management [Z79.899] Order(s):COMPLETE BLOOD COUNT [SQCBC] Order #: [id number] FUTURE Prescriptions as of 04/13/2024 - ergocalciferol 50,000 unit capsule (VITAMIN D2, DRISDOL) Take 1 capsule by mouth two times a week. TO BE TAKEN ORALLY DIRECTED. Take 1 tablet by mouth twice weekly [id number], then decrease to 1 tablet weekly. - naproxen (NAPROSYN) 500 mg tablet Take 1 tablet by mouth two times a day as needed (for pain/inflammation). Take with food. - polyethylene glycol 3350 (MIRALAX) 17 gram/dose powder Take 17 g by mouth once daily. Dissolve dose in 4 - 8 ounces of liquid and take as directed. - lisinopril-hydroCHLOROthiazide (ZESTORETIC) 10-12.5 mg per tablet Take 1 tablet by mouth once daily. - tamsulosin (FLOMAX) 0.4 mg Take 1 capsule by mouth daily at bedtime. - aspirin, enteric coated (ASPIRIN, ENTERIC COATED) 81 mg EC tablet Take 1 tablet by mouth once daily. Problem List As Of Date 04/10/2024 Noted Resolved Mixed hyperlipidemia [E78.2] 11/09/2005 Unspecified Asthma [J45.909] 11/09/2005 Personal history of other malignant neoplasm of*03/31/2006 Cervical Spondylosis without Myelopathy [M47.81* Family History of Malignant Neoplasm of Gastroi*05/16/2008 Primary Localized Osteoarthrosis, Shoulder Quin*05/16/2008 ACTINIC KERATOSIS (Premalignant AK) [L57.0] 05/17/2008 Other Seborrheic Keratosis [L82.1] 05/17/2008 09/15/2009 ACTINIC DAMAGE///CHR SOLAR SKIN DAMAGE NOS [L57*05/17/2008 09/15/2009 Rosacea [L71.9] 05/17/2008 Primary hypertension [I10] 09/15/2009 Obesity [E66.9] 09/15/2009 Irritated//Inflamed Seborrheic Keratosis [L82.0]09/23/2009 Solar lentigo [L81.4] 09/23/2009 Bladder Neck Obstruction [N32.0] 10/30/2009 Hypertrophy of prostate with urinary obstructio*05/28/2010 Arthritis of shoulder region, left, degenerativ*08/03/2011 Benign neoplasm of rectum and anal canal [D12.8*08/23/2011 Pain in joint, shoulder region [M25.519] 10/21/2011 Chronic knee pain [M25.569, G89.29] 02/28/2017 Preop examination [Z01.818] 11/21/2023 Elevated prostate specific antigen (PSA) [R97.2*11/21/2023 11/29/2023 Obesity, Class I, BMI 30-34.9 [E66.811] 11/21/2023 Prostate cancer (HCC) [C61] 11/29/2023 Encounter Status:Closed by ETTA WOLFE on 04/13/24[facility]-11-[facility] Telephone encounter Note* Telephone Encounter - Mali Fernández RN - 01/11/2024 7:55 AM EDT Late entry: On 01/10/24 phone call to pt to see if he had made a decision on receiving radiation therapy. Pt states after long consideration and discussions with sons, he has decided not to do any treatment for prostate cancer. Allowed pt time to discuss all his feeling about this decision. He states understanding of all his options and feels at his age he would prefer to live without the burden of treatment and or side effects. Instructed pt to let Dr Blanton know of his decision to see if he wants f/u sooner than the scheduled 07/10/14. Also told pt to call if he were to change his mind about this.Dr Huffman made aware. [facility]08-14-2024 Miscellaneous Notes* Telephone Encounter - Mali Fernández RN - 01/11/2024 7:55 AM EDT Late entry: On 01/10/24 phone call to pt to see if he had made a decision on receiving radiation therapy. Pt states after long consideration and discussions with sons, he has decided not to do any treatment for prostate cancer. Allowed pt time to discuss all his feeling about this decision. He states understanding of all his options and feels at his age he would prefer to live without the burden of treatment and or side effects. Instructed pt to let Dr Blanton know of his decision to see if he wants f/u sooner than the scheduled 07/10/14. Also told pt to call if he were to change his mind about this.Dr Huffman made aware. documented in this encounterOhiohealth [facility]08-08-2024 Nurse Note* Poonam Rice RN - 01/05/2024 9:30 AM EDT Radiation Therapy - Nursing Note (Consult) PATIENT NAME: Zachary Short PATIENT January 05, 2024 [facility] FACILITY/LOCATION: [place] Chief Complaint: consult Reason for visit: Consult. Referring physician: Internal provider Dr Blanton Subjective Data: no complaints Additional Data Do you want to see a Physical Science Technician? No Are you interested in information about fertility? No Status: Patient is male Stress Scale: On a scale of 0 to 10, what number best describes how much distress you have experienced in the past week?(0 being no distress and 10 being extreme distress) 2 Social work notified: unknown SIGNED by: Poonam Rice RN [facility]08-08-2024 Nurse Note* Poonam Rice RN - 01/05/2024 9:30 AM EDT Radiation Therapy - Nursing Note (Consult) PATIENT NAME: Zachary Short PATIENT January 05, 2024 [facility] FACILITY/LOCATION: [place] Chief Complaint: consult Reason for visit: Consult. Referring physician: Internal provider Dr Blanton Subjective Data: no complaints Additional Data Do you want to see a Physical Science Technician? No Are you interested in information about fertility? No Status: Patient is male Stress Scale: On a scale of 0 to 10, what number best describes how much distress you have experienced in the past week?(0 being no distress and 10 being extreme distress) 2 Social work notified: unknown SIGNED by: Poonam Rice RN documented in this encounterOhiohealth [facility]08-08-2024 History of Present illness Narrative* Vince Huffman MD - 01/05/2024 9:14 AM EDT Radiation Oncology - New Patient/Consult Note PATIENT NAME: Zachary Shotr PATIENT REQUESTING PROVIDER: Dr. Juan Blanton Jr DIAGNOSIS: Stage IIA, T1c cN0, prostate adenocarcinoma with Lisbeth score 7 (3+4), grade group 2, and PSA 12.32 ng/mL. Cancer Staging Prostate cancer (HCC) Staging form: Prostate Cancer - Clinical stage from 11/29/2023: Stage IIA (T1c, N0, M0, PSA: 10 to 19, Lisbeth 7) - Signed by Juan Blanton Jr., MD on 11/29/2023 HPI: 78 year old male who presents with above diagnosis, for an opinion regarding the role of radiation therapy in the management of the patient's disease. Final recommendations will be communicated back to the requesting physician by way of the shared medical record, or letter to requesting physician via US mail. 78 year old man who had elevated PSA to 9.18 on 03/23/22 and it increased from 2.58 7 years ago. PSA further increased to 14.20 on 03/25/23. Prostate biopsy on 04/19/23 showed benign findings. PSA was 12.17 on 05/10/23 and 17.02 on 08/18/23. MRI prostate on 09/27/23 showed a lesion in the left transition zone anteriorly mid body to apex suspicious for prostate carcinoma extending out to the peripheral zone abutting the capsule. Extraprostatic extension cannot be excluded. No significant lymph nodes noted in the pelvis. Hypointense focusleft iliac bone. Unclear whether this represents sclerotic metastasis. MRI fusion biopsy of the prostate on 11/21/23 showed prostatic adenocarcinoma with Nordheim score 7 (3+4), grade group 2. Biopsy of other areas of the prostate showed benign findings. Bone scan on 12/09/23 was negative for bone metastases. Most recent PSA on 12/29/23 was 12.32 ng/mL. He has weak urinary stream and mild urinary frequency and urgency. He has infrequent urge incontinence. He has nocturia 2-3/night. He is on Flomax. ALLERGIES No Known Allergies Current Outpatient Medications on File Prior to Visit Medication Sig ergocalciferol 50,000 unit capsule (VITAMIN D2, DRISDOL) Take 1 capsule by mouth two times a week. TO BE TAKEN ORALLY DIRECTED. Take 1 tablet by mouth twice weekly j2xruon, then decrease to 1 tablet weekly. naproxen (NAPROSYN) 500 mg tablet Take 1 tablet by mouth two times a day as needed (for pain/inflammation). Take with food. polyethylene glycol 3350 (MIRALAX) 17 gram/dose powder Take 17 g by mouth once daily. Dissolve dosein 4 - 8 ounces of liquid and take as directed. lisinopril-hydroCHLOROthiazide (ZESTORETIC) 10-12.5 mg per tablet Take 1 tablet by mouth once daily. tamsulosin (FLOMAX) 0.4 mg Take 1 capsule by mouth daily at bedtime. aspirin, enteric coated (ASPIRIN, ENTERIC COATED) 81 mg EC tablet Take 1 tablet by mouth once daily. No current facility-administered medications on file prior to visit. PAST MEDICAL HISTORY No date: Benign neoplasm of rectum and anal canal No date: Benign prostatic hyperplasia with urinary obstruction No date: Cervical spondylosis without myelopathy No date: Elevated prostate specific antigen (PSA) No date: Essential hypertension, benign No date: Family history of malignant neoplasm of gastrointestinal tract Comment: Father No date: Other and unspecified hyperlipidemia Comment: diet controlled No date: Unspecified asthma(493.90) Comment: childhood. Only seasonal now Prior radiation therapy, collagen vascular disease, or inflammatory bowel disease: No Any implanted or external electric devices? No \ PAST SURGICAL HISTORY 09/10/2011: ARTHROPLASTY HEMIARTHROPLASTY Comment: left shoulder Ari arthroplasty 03/07/2012: ARTHROPLASTY HEMIARTHROPLASTY Comment: left shoulder revision 08/23/11: COLONOSCOPY & POLYPECTOMY Comment: repeat 5 years 10/19/2016: COLONOSCOPY FLX DX W/COLLJ SPEC WHEN PFRMD Comment: Normal colonoscopy-family history-5 year follow-up 07/17/2007: NECK Comment: Anterior cervical discectomy allograft fusion on c-4,c-5,c-6 FAMILY HISTORY Problem Relation Age of Onset Colon Cancer Father Cancer Mother metastatic melanoma Social History Tobacco Use Smoking status: Never Passive exposure: Never Smokeless tobacco: Never Vaping Use Vaping Use: Never used Substance Use Topics Alcohol use: Yes Comment: socially, 3-4 beers/year Drug use: No COMPLETE REVIEW OF SYSTEMS: GENERAL: feeling well without fatigue, no recent change in weight HEENT: denies KARIMI, change in hearing or vision, no other ENT complaints NECK: denies swelling or pain in neck RESPIRATORY: no cough, no wheezing or shortness of breath CARDIOVASCULAR: no chest pain, no palpitations GI: normal appetite, tolerating PO well, BMs normal, and no abdominal pain : see HPI. MUSCULOSKELETAL: denies any painful or swollen joints, no muscle aches SKIN: no rash HEMATOLOGY/LYMPHOLOGY: negative for prolonged bleeding, no swollen lymph nodes NEURO: no numbness or paresthesias and no weakness of the extremities PHYSICAL EXAM: VS: BP 120/71 Pulse 62 Temp 36.7 C (98 F) (Temporal) Resp 14 Wt 113.4 kg (250 lb) SpO2 95% BMI 31.08 kg/m KPS: 90 General Appearance: Alert and oriented. No acute distress. HEENT: NCAT. Sclera anicteric. EOMI. Neck: Normal ROM. Chest: No respiratory distress. Musculoskeletal: Normal ROM in extremities. Neuro: Speech fluent. Gait normal. No focal deficits. Hematologic: No signs of active bleeding. RADIOLOGY/LABORATORY DATA: see HPI ASSESSMENT AND PLAN: 78 year old man with stage IIA, T1c cN0, prostate adenocarcinoma with Nordheim score 7 (3+4), grade group 2, and PSA 12.32 ng/mL. He is in unfavorable intermediate group. I discussed management of prostate cancer in that group such as surgery, radiation treatment with a short course of hormonal therapy or brachytherapy. I went over the rationale, benefits and potential complications of radiation treatment in detail and answered all his questions. He wishes to think over and will let us know of his decision if he decides to pursue radiation treatment. Thank you very much for allowing us to participate in his care. Signed by: Vince Huffman MD cc: Ailin Pierson [address] [place] [address] Juan Blanton [facility] [address] documented in this encounterOhiohealth [facility]08-07-2024 Telephone encounter Note * Telephone Encounter - Gregory Casarez RN - 01/04/2024 3:40 PM EDT Called patient back and answered his questions. Patient states he will see oncologist tomorrow and will call back if he needs to come back to office. Patient aware he will need PSA and return in 6 months [facility]08-07-2024 Miscellaneous Notes* Telephone Encounter - Gregory Casarez RN - 01/04/2024 3:40 PM EDT Called patient back and answered his questions. Patient states he will see oncologist tomorrow and will call back if he needs to come back to office. Patient aware he will need PSA and return in 6 months * Telephone Encounter - Rochelle Diana - 01/04/2024 3:06 PM EDT PT is requesting a return call. He has follow up questions about yesterday's office visit. Please call [phone] or [phone]. documented in this encounterOhiohealth [facility]08-07-2024 Telephone encounter Note * Telephone Encounter - Rochelle Diana - 01/04/2024 3:06 PM EDT PT is requesting a return call. He has follow up questions about yesterday's office visit. Please call [phone] or [phone]. [facility]08-[facility] History of Present illness Narrative* Juan Blanton Jr., MD - 01/03/2024 10:10 AM EDT ESTABLISHED PATIENT OFFICE VISIT HPI Zachary Short is a 78 year old male who presents sp trus bx 04/21. Did well after surgery. Gland 67cc. Path benign. Psa was 14.2 then and is now 12.17. no fever. No uti. Feels well otherwise. Options discussed. 10/11/23 - here to discuss psa and mri prostate. Psa now 17. Mri prostate 1 pirads 5 lesion. Gland 66 cc. No change in luts. Options discussed. 12/06/23 - sp mri fusion bx. Path on lesion showed G7(3+4). Rest of bx neg. Gland 66.8cc. mri had showed a ? Lesion in pelvic bone. No LAD. Options discussed. 01/03/24 - bone scan normal. Repeat psa 12. Options discussed. No fever. No uti. LAB: Creatinine Date Value Ref Range Status 03/25/2023 0.87 0.73 - 1.22 mg/dL Final PSA (ng/mL) Date Value 12/29/2023 12.32 08/18/2023 17.02 05/10/2023 12.17 03/25/2023 14.20 PSA Screening (ng/mL) Date Value 03/23/2022 9.18 10/06/2016 2.58 Glucose, Urine (mg/dL) Date Value 08/31/2011 Negative Bilirubin, Urine (no units) Date Value 08/31/2011 Negative Ketones, Urine (no units) Date Value 08/31/2011 Negative Specific [place], Ur (no units) Date Value 08/31/2011 1.020 Hemoglobin/Blood,Ur ( ) Date Value 08/31/2011 Negative pH, Urine (no units) Date Value 08/31/2011 5.5 Protein, Urine (mg/dL) Date Value 08/31/2011 Negative Nitrites (no units) Date Value 08/31/2011 Negative WBC, Urine (/HPF) Date Value 08/31/2011 3-5 MEDICATIONS: ergocalciferol 50,000 unit capsule (VITAMIN D2, DRISDOL) Take 1 capsule by mouth two times a week. TO BE TAKEN ORALLY DIRECTED. Take 1 tablet by mouth twice weekly j2emlap, then decrease to 1 tablet weekly. naproxen (NAPROSYN) 500 mg tablet Take 1 tablet by mouth two times a day as needed (for pain/inflammation). Take with food. polyethylene glycol 3350 (MIRALAX) 17 gram/dose powder Take 17 g by mouth once daily. Dissolve dosein 4 - 8 ounces of liquid and take as directed. lisinopril-hydroCHLOROthiazide (ZESTORETIC) 10-12.5 mg per tablet Take 1 tablet by mouth once daily. tamsulosin (FLOMAX) 0.4 mg Take 1 capsule by mouth daily at bedtime. aspirin, enteric coated (ASPIRIN, ENTERIC COATED) 81 mg EC tablet Take 1 tablet by mouth once daily. REVIEW OF SYSTEMS Review of Systems Constitutional: Negative. Respiratory: Negative. Cardiovascular: Negative. Gastrointestinal: Negative. Genitourinary: Negative. Skin: Negative. Neurological: Negative. Psychiatric/Behavioral: Negative. HISTORIES PAST MEDICAL HISTORY No date: Benign neoplasm of rectum and anal canal No date: Benign prostatic hyperplasia with urinary obstruction No date: Cervical spondylosis without myelopathy No date: Elevated prostate specific antigen (PSA) No date: Essential hypertension, benign No date: Family history of malignant neoplasm of gastrointestinal tract Comment: Father No date: Other and unspecified hyperlipidemia Comment: diet controlled No date: Unspecified asthma(493.90) Comment: childhood. Only seasonal now FAMILY HISTORY Problem Relation Age of Onset Colon Cancer Father Cancer Mother metastatic melanoma SOCIAL HISTORY Social History Tobacco Use Smoking status: Never Passive exposure: Never Smokeless tobacco: Never Vaping Use Vaping Use: Never used Substance Use Topics Alcohol use: Yes Comment: socially, 3-4 beers/year Drug use: No PHYSICAL EXAMINATION General appearance: Well appearing, alert, in no acute distress, and well- hydrated, well nourished Skin: Skin color, texture, turgor normal, no suspicious rashes or lesions Respiratory:+ effort Cardiovascular: Not examined GI: Normal abdominal exam, Abdomen soft, non-tender. No masses, organomegaly Musculoskeletal: Negative Neuro: Negative Genitourinary: not examined Impression: (C61) Prostate cancer (HCC) (primary encounter diagnosis) Plan: Rad/onc 6 months Psa prior Juan Blanton Jr, MD 01/03/2024 documented [facility] this encounter[facility] Telephone encounter Note * Telephone Encounter - Linda Fong LPN - 12/30/2023 1:21 PM EDT Patient returned call and went over results, notes from Dr Pierson with understanding. Aware rx sent to pharmacy. [facility] Miscellaneous Notes* Telephone Encounter - Linda Fong LPN - 12/30/2023 1:21 PM EDT Patient returned call and went over results, notes from Dr Pierson with understanding. Aware rx sent to pharmacy. * Telephone Encounter - Hari Rodriguez RN - 12/30/2023 1:17 PM EDT Called and left a voicemail for the Patient to call back and ask for a nurse to receive the providers message. Hari Rodriguez RN * Telephone Encounter - Ailin Pierson MD - 12/30/2023 12:51 PM EDT Please inform patient of very low vitamin d levels, We are giving her replacement doses, sent to her regular pharmacy. This might help in the overall mood and energy. He needs to take it immediately after eating. Vit b12 levels are normal Regards, Ailin Pierson MD documented in this encounterOhio[facility] Telephone encounter Note * Telephone Encounter - Hari Rodriguez RN - 12/30/2023 1:17 PM EDT Called and left a voicemail for the Patient to call back and ask for a nurse to receive the providers message. Hari Rodriguez RN [facility]08-02-[facility] Telephone encounter Note* Telephone Encounter - Ailin Pierson MD - 12/30/2023 12:51 PM EDT Please inform patient of very low vitamin d levels, We are giving her replacement doses, sent to her regular pharmacy. This might help in the overall mood and energy. He needs to take it immediately after eating. Vit b12 levels are normal Regards, Ailin Pierson MD [facility]08-01-[facility] History of Present illness Narrative* Ailin Pierson MD - 12/29/2023 9:34 AM EDT Reason for Visit Patient presents with: Recheck: 3 month follow up Zachary Short is a 78 year old male who presents here today for Above Complaints.. Health Maintenance Depression Screening Anxiety Screening DTaP,Tdap,Td Vaccine(1 - Tdap) Shingrix Vaccine(1 of 2) RSV Vaccine(1 - 1-dose 60+ series) BP Controlled (<130/80) Advance Directive Discussion HPI This is a very pleasant 78-year-old gentleman with a past medical history of hypertension, mixed hyperlipidemia recent diagnosis of prostate cancer, he also has history of skin cancer, arthritis of the shoulder, obesity, rosacea. Prostate cancer: High grade Lisbeth score of 7. NM study did not show likely tracer Uptake so unlikely he has metastasized. He has to decide what he would like to do. He has read a lot and is very well informed about the treatment options. He wants to maintain quality of life, he watched his of cancer, lost her ability to pass urine and have bowel movements and be extremely sick with the bag. He helped her to this process and he just cannot imagine himself going through this again. He was wondering what would his life expectancy been without any treatment and to let just things be. He also wanted to know what his life expectancy would be if he did have treatment. Based on the amount of time that we are talking about he wants to make a decision. I spent a lot of time and we looked up stuff on up to date to get some idea of his life expectancy with any kind of treatment. Especially he is leaning towards the hormonal treatment because he read about radiation and possible proctitis, problems with \ureters and strictures forming in sometimes fromradiation as a complication. He is not interested in that type of treatment. No problem-specific Assessment & Plan notes found for this encounter. PAST MEDICAL HISTORY No date: Benign neoplasm of rectum and anal canal No date: Benign prostatic hyperplasia with urinary obstruction No date: Cervical spondylosis without myelopathy No date: Elevated prostate specific antigen (PSA) No date: Essential hypertension, benign No date: Family history of malignant neoplasm of gastrointestinal tract Comment: Father No date: Other and unspecified hyperlipidemia Comment: diet controlled No date: Unspecified asthma(493.90) Comment: childhood. Only seasonal now PAST SURGICAL HISTORY 09/10/2011: ARTHROPLASTY HEMIARTHROPLASTY Comment: left shoulder Ari arthroplasty 03/07/2012: ARTHROPLASTY HEMIARTHROPLASTY Comment: left shoulder revision 08/23/11: COLONOSCOPY & POLYPECTOMY Comment: repeat 5 years 10/19/2016: COLONOSCOPY FLX DX W/COLLJ SPEC WHEN PFRMD Comment: Normal colonoscopy-family history-5 year follow-up 07/17/2007: NECK Comment: Anterior cervical discectomy allograft fusion on c-4,c-5,c-6 FAMILY HISTORY Problem Relation Age of Onset Colon Cancer Father Cancer Mother metastatic melanoma Social History Tobacco Use Smoking status: Never Passive exposure: Never Smokeless tobacco: Never Vaping Use Vaping Use: Never used Substance Use Topics Alcohol use: Yes Comment: socially, 3-4 beers/year Drug use: No Past medical history, appointments, medications, allergies reviewed. Pertinent Lab/Diagnostic Studies are reviewed and discussed today Current Outpatient Medications: naproxen (NAPROSYN) 500 mg tablet polyethylene glycol 3350 (MIRALAX) 17 gram/dose powder lisinopril-hydroCHLOROthiazide (ZESTORETIC) 10-12.5 mg per tablet tamsulosin (FLOMAX) 0.4 mg aspirin, enteric coated (ASPIRIN, ENTERIC COATED) 81 mg EC tablet Review of Systems CONSTITUTIONAL: No fevers, chills night sweats, unintended weight loss CARDIOVASCULAR: No chest pain, dyspnea, palpitations, orthopnea, PND, ankle edema. PULM: No dyspnea, unexplained cough. GI: No dysphagia/odynophagia, problematic reflux, constipation, diarrhea, changes in stool habits, hematochezia, melena. : No new urinary complaints, including dysuria, gross hematuria or pyuria. NEURO: No new balance problems, peripheral weakness/paresthesias or numbness of concern. Physical Exam BP 120/78 (BP Site: Left Arm) Pulse 66 Ht 191 cm (6' 3.2) Wt 114.6 kg (252 lb 9.6 oz) GfA667% BMI 31.41 kg/m General appearance: Well appearing, alert, in no acute distress, well nourished. Skin: Skin color, texture, turgor normal, no suspicious rashes or lesions Head: Normocephalic, no masses, lesions, tenderness or abnormalities Eyes: Anicteric sclera. Pupils are equally round and reactive to light. Extraocular movements are intact. Lungs: Lungs clear to auscultation. No wheezing, rhonchi, rales Heart: RRR without murmur, gallop, or rubs. Extremities: No deformities, edema, skin discoloration, clubbing or cyanosis. Good capillary refill. ASSESSMENT/PLAN: 1. Prostate cancer (HCC) - ICD9: 185, ICD10: C61 (primary diagnosis) -40 minutes [id number] was spent with the patient in counseling him, understanding his goals and values and getting him prepared for what is to come next. I also gave him options because he does not want to travel too far. He wanted to stick to [place]. To be given local options. Clarified some questions. 2. Vitamin D deficiency - ICD9: 268.9, ICD10: E55.9 - VITAMIN D 25 HYDROXY 3. Vitamin B12 deficiency - ICD9: 266.2, ICD10: E53.8 - VITAMIN B12 4. Essential hypertension, benign - ICD9: 401.1, ICD10: I10 - Controlled - Recommend home blood pressure monitoring, to bring results to next visit - Encouraged sodium restriction, DASH or Mediterranean diet - Recommend regular aerobic exercise Ailin Pierson MD documented in this encounterOhio[facility] History of Present illness Narrative* Juan Hyde CT - 12/09/2023 9:30 AM EDT RADIOLOGY SERVICE PROGRESS NOTE SERVICE DATE: 12/09/2023 SERVICE TIME: 9:54 AM PATIENT IDENTITY VERIFICATION COMPLETED USING TWO (2) STANDARD IDENTIFIERS: Name and Date of confirmed by patient verbally and Name and Date of confirmed by identification band FALL SCREENING: Has the patient had 2 falls in the last year or 1 fall with injury or currently using an Ambulatory Assistive Device (Walker, Cane, Wheelchair, Crutches, etc.)? No PATIENT GENDER DATA: .male ALLERGIES: Reviewed and unchanged MEDICATIONS REVIEWED: Not applicable PATIENT RELEVANT IMPLANT DATA REVIEWED: Not Applicable PATIENT PRESENTS WITH AN IMPLANTABLE OR ATTACHED EXTENSION WORK INSTRUCTOR: No CREATININE: Creatinine Date Value Ref Range Status 03/25/2023 0.87 0.73 - 1.22 mg/dL Final 03/23/2022 0.92 0.73 - 1.22 mg/dL Final 06/11/2020 0.87 0.73 - 1.22 mg/dL Final Estimated Glomerular Filtration Rate Date Value Ref Range Status 03/25/2023 88 >=60 mL/min/1.73m Final Comment: Estimated Glomerular Filtration Rate (eGFR) is calculated using the 2020 CKD-EPI creatinine equation. This equation utilizes serum creatinine, sex, and age as parameters. The creatinine assay has traceable calibration to isotope dilution- mass spectrometry. Refer to KDIGO guidelines for clinical interpretation. In patients with unstable renal function, e.g. those with acute kidney injury, the eGFRmay not accurately reflect actual GFR. eGFR- Date Value Ref Range Status 06/11/2020 >60 Final P.O.C.T. RESULTS: N/A December 09, [address] PERFORMED: No IV SITE: Ambulatory: A peripheral IV was started in the Right antecubital site with a Angio cath: 24 gauge. POST EXAM PIV STATUS: Discontinued PROCEDURE TYPE: NM INJECT: Whole Body Bone Scan. 21.9 mCi Tc99m MDP. No other medications given.. ADMINISTRATION TIME: 09:36 PATIENT DISCHARGED TO: Ambulatory patient, left NM department area. A Diagnostic radioactive procedure has taken place, with no further precautions necessary other than routine body substance precautions. More information regarding radiation safety can be found usingthis link: [email or web address] SIGNATURE: SHERRI Chilel PATIENT NAME: Zachary Short DATE: December 09, 2023 TIME: 9:54 AM PAGER/CONTACT #: documented in this encounterOhio[facility]07-[facility] History of Present illness Narrative* Juan Blanton Jr., MD - 12/06/2023 2:13 PM EDT ESTABLISHED PATIENT OFFICE VISIT HPI Zachary Short is a 78 year old male who presents sp trus bx 04/21. Did well after surgery. Gland 67cc. Path benign. Psa was 14.2 then and is now 12.17. no fever. No uti. Feels well otherwise. Options discussed. 10/11/23 - here to discuss psa and mri prostate. Psa now 17. Mri prostate 1 pirads 5 lesion. Gland 66 cc. No change in luts. Options discussed. 12/06/23 - sp mri fusion bx. Path on lesion showed G7(3+4). Rest of bx neg. Gland 66.8cc. mri had showed a ? Lesion in pelvic bone. No LAD. Options discussed. LAB: Creatinine Date Value Ref Range Status 03/25/2023 0.87 0.73 - 1.22 mg/dL Final PSA (ng/mL) Date Value 08/18/2023 17.02 05/10/2023 12.17 03/25/2023 14.20 PSA Screening (ng/mL) Date Value 03/23/2022 9.18 10/06/2016 2.58 Glucose, Urine (mg/dL) Date Value 08/31/2011 Negative Bilirubin, Urine (no units) Date Value 08/31/2011 Negative Ketones, Urine (no units) Date Value 08/31/2011 Negative Specific [place], Ur (no units) Date Value 08/31/2011 1.020 Hemoglobin/Blood,Ur ( ) Date Value 08/31/2011 Negative pH, Urine (no units) Date Value 08/31/2011 5.5 Protein, Urine (mg/dL) Date Value 08/31/2011 Negative Nitrites (no units) Date Value 08/31/2011 Negative WBC, Urine (/HPF) Date Value 08/31/2011 3-5 MEDICATIONS: naproxen (NAPROSYN) 500 mg tablet Take 1 tablet by mouth two times a day as needed (for pain/inflammation). Take with food. polyethylene glycol 3350 (MIRALAX) 17 gram/dose powder Take 17 g by mouth once daily. Dissolve dosein 4 - 8 ounces of liquid and take as directed. lisinopril-hydroCHLOROthiazide (ZESTORETIC) 10-12.5 mg per tablet Take 1 tablet by mouth once daily. tamsulosin (FLOMAX) 0.4 mg Take 1 capsule by mouth daily at bedtime. aspirin, enteric coated (ASPIRIN, ENTERIC COATED) 81 mg EC tablet Take 1 tablet by mouth once daily. REVIEW OF SYSTEMS Review of Systems Constitutional: Negative. Respiratory: Negative. Cardiovascular: Negative. Gastrointestinal: Negative. Genitourinary: Negative. Skin: Negative. Neurological: Negative. Psychiatric/Behavioral: Negative. 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 Only seasonal now FAMILY HISTORY Problem Relation Age of Onset Colon Cancer Father Cancer Mother metastatic melanoma SOCIAL HISTORY Social History Tobacco Use Smoking status: Never Passive exposure: Never Smokeless tobacco: Never Vaping Use Vaping Use: Never used Substance Use Topics Alcohol use: Yes Comment: socially, 3-4 beers/year Drug use: No PHYSICAL EXAMINATION General appearance: Well appearing, alert, in no acute distress, and well- hydrated, well nourished Skin: Skin color, texture, turgor normal, no suspicious rashes or lesions Respiratory:+ effort Cardiovascular: Not examined GI: Normal abdominal exam, Abdomen soft, non-tender. No masses, organomegaly Musculoskeletal: Negative Neuro: Negative Genitourinary: not examined Impression: (C61) Prostate cancer (HCC) (primary encounter diagnosis) (R30.0) Dysuria Plan: Bone scan Fu after Psa prior Juan Blanton Jr, MD 12/06/2023 documented in this encounterOhio[facility]-14-[facility] History of Present illness Narrative* Juan Blanton Jr., MD - 10/11/2023 8:45 AM EDT ESTABLISHED PATIENT OFFICE VISIT HPI Zachary Short is a 78 year old male who presents sp trus bx 04/21. Did well after surgery. Gland 67cc. Path benign. Psa was 14.2 then and is now 12.17. no fever. No uti. Feels well otherwise. Options discussed. 10/11/23 - here to discuss psa and mri prostate. Psa now 17. Mri prostate 1 pirads 5 lesion. Gland 66 cc. No change in luts. Options discussed. LAB: Creatinine Date Value Ref Range Status 03/25/2023 0.87 0.73 - 1.22 mg/dL Final PSA (ng/mL) Date Value 08/18/2023 17.02 05/10/2023 12.17 03/25/2023 14.20 PSA Screening (ng/mL) Date Value 03/23/2022 9.18 10/06/2016 2.58 Glucose, Urine (mg/dL) Date Value 08/31/2011 Negative Bilirubin, Urine (no units) Date Value 08/31/2011 Negative Ketones, Urine (no units) Date Value 08/31/2011 Negative Specific Lor[place], Ur (no units) Date Value 08/31/2011 1.020 Hemoglobin/Blood,Ur ( ) Date Value 08/31/2011 Negative pH, Urine (no units) Date Value 08/31/2011 5.5 Protein, Urine (mg/dL) Date Value 08/31/2011 Negative Nitrites (no units) Date Value 08/31/2011 Negative WBC, Urine (/HPF) Date Value 08/31/2011 3-5 MEDICATIONS: naproxen (NAPROSYN) 500 mg tablet Take 1 tablet by mouth two times a day as needed (for pain/inflammation). Take with food. polyethylene glycol 3350 (MIRALAX) 17 gram/dose powder Take 17 g by mouth once daily. Dissolve dosein 4 - 8 ounces of liquid and take as directed. lisinopril-hydroCHLOROthiazide (ZESTORETIC) 10-12.5 mg per tablet Take 1 tablet by mouth once daily. tamsulosin (FLOMAX) 0.4 mg Take 1 capsule by mouth daily at bedtime. aspirin, enteric coated (ASPIRIN, ENTERIC COATED) 81 mg EC tablet Take 1 tablet by mouth once daily. REVIEW OF SYSTEMS Review of Systems Constitutional: Negative. Respiratory: Negative. Cardiovascular: Negative. Gastrointestinal: Negative. Genitourinary: Negative. Skin: Negative. Neurological: Negative. Psychiatric/Behavioral: Negative. 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 Only seasonal now FAMILY HISTORY Problem Relation Age of Onset Colon Cancer Father Cancer Mother metastatic melanoma SOCIAL HISTORY Social History Tobacco Use Smoking status: Never Passive exposure: Never Smokeless tobacco: Never Vaping Use Vaping Use: Never used Substance Use Topics Alcohol use: Yes Comment: socially, 3-4 beers/year Drug use: No PHYSICAL EXAMINATION General appearance: Well appearing, alert, in no acute distress, and well- hydrated, well nourished Skin: Skin color, texture, turgor normal, no suspicious rashes or lesions Respiratory:+ effort Cardiovascular: Not examined GI: Normal abdominal exam, Abdomen soft, non-tender. No masses, organomegaly Musculoskeletal: Negative Neuro: Negative Genitourinary: not examined Impression: (R97.20) Elevated prostate specific antigen (PSA) (primary encounter diagnosis) Plan: MRI Fusion transrectal ultrasound prostate biopsy Explained procedure in detail. Explained multiple cores necessary. Explained use of local anesthesia. Explained transrectal ultrasound necessary for obtaining specifics of prostate. Discussed all risks to the procedure including bleeding, infection, damage to nearby structures, repeat procedure, repeat surgery. Patient understands risks and agrees to proceed. Juan Blanton Jr, MD 10/11/2023 documented in this encounterOhio[facility] Instructions* Patient Instructions* Kayla Betancourt APRN.CNP - 09/28/2023 10:05 AM EDT Take miralax daily for the next 3-5 days until you have a soft regular bowel movement. Hold for liquid stool. Can take melatonin for sleep if needed. Start with low dose like 2.5mg. documented in this encounterOhio[facility] History of Present illness Narrative* Kayla Betancourt APRN.CNP - 09/28/2023 9:34 AM EDT CC: Patient presents with: Recheck: Follow up prostrate HPI Zachary Short is a 78 year old male who presents today for concerns of recent diagnosis of prostate cancer. Had biopsy last March, PSA increasing, MRI in the last week but not been contacted by urologist.Is very stressed and concerned with this diagnosis. It is causing him sleep difficulties. Has difficulty falling and staying asleep. Has noticed stools are harder to pass and not as regular for the past few weeks. This is resulting in increase in urination and slightly darker in color. Also with constant clear sinus drainage and nonproductive cough for the past month that resolved in the last few days. Denies fever, chills, wheezing, sinus pressure, shortness of breath, chest pressure, edema, palpitations, abdominal pain, nausea, vomiting, pain with urination, or blood in urine. 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 Only seasonal now PAST SURGICAL HISTORY Procedure Laterality Date ARTHROPLASTY HEMIARTHROPLASTY 09/10/2011 left shoulder Ari arthroplasty ARTHROPLASTY HEMIARTHROPLASTY 03/07/2012 left shoulder revision COLONOSCOPY & POLYPECTOMY 08/23/11 repeat 5 years COLONOSCOPY FLX DX W/COLLJ SPEC WHEN PFRMD 10/19/2016 Normal colonoscopy-family history-5 year follow-up NECK 07/17/2007 Anterior cervical discectomy allograft fusion on c-4,c-5,c-6 ALLERGIES Patient has no known allergies. MEDICATIONS lisinopril-hydroCHLOROthiazide (ZESTORETIC) 10-12.5 mg per tablet Take 1 tablet by mouth once daily. naproxen (NAPROSYN) 500 mg tablet Take 1 tablet by mouth two times a day as needed (for pain/inflammation). Take with food. tamsulosin (FLOMAX) 0.4 mg Take 1 capsule by mouth daily at bedtime. aspirin, enteric coated (ASPIRIN, ENTERIC COATED) 81 mg EC tablet Take 1 tablet by mouth once daily. FAMILY HISTORY Problem Relation Age of Onset Colon Cancer Father Cancer Mother metastatic melanoma Social History Tobacco Use Smoking status: Never Passive exposure: Never Smokeless tobacco: Never Vaping Use Vaping Use: Never used Substance Use Topics Alcohol use: Yes Comment: socially, 3-4 beers/year Drug use: No PHYSICAL EXAM BP 124/80 Pulse 60 Resp 16 Wt 115.2 kg (254 lb) SpO2 97% BMI 34.45 kg/m General Appearance: well appearing, in no acute distress, alert Pysch: mood and affect broad and appropriate, tearful when discussing his cancer diagnosis Skin: Skin color, texture, turgor normal for age; Eyes: conjunctiva pink and moist, no icterus, sclera white, non-injected Ears: external ears normal to inspection and palpation, canals clear, Left tympanic membrane normal. , Right tympanic membrane normal Nose/sinus: Nares normal. Septum midline. Mucosa normal. No drainage., No sinus tenderness Neck: Thyroid normal size and symmetric without palpable nodules, Neck supple, No adenopathy Lymph nodes: No cervical lymphadenopathy and No supraclavicular lymphadenopathy Lungs: Lungs clear to auscultation. No wheezing, rhonchi, rales. Heart: RRR without murmur, gallop, or rubs. No ectopy Abdomen: Abdomen soft, non-tender. Bowel sounds normal. No masses, organomegaly Health maintenance reviewed with patient: DTaP,Tdap,Td Vaccine(1 - Tdap) Never done Shingrix Vaccine(1 of 2) Never done RSV Vaccine(1 - 1-dose 60+ series) Never done Advance Directive Discussion due on 05/30/2023 Behavioral Health Screening Never done Covid-19 Vaccine( season) due on 03/30/2024 Influenza Vaccine(Season Ended) due on 01/29/2024 Annual PCP Team Chronic Disease Visit due on 03/30/2024 BP Controlled (<130/80) due on 04/19/2024 Diabetes Screening due on 03/25/2026 Pneumococcal Vaccine: 65+ Completed Colorectal Cancer Screening Discontinued DATA REVIEWED: No new labs ASSESSMENT/PLAN: 1. Prostate cancer (HCC) - ICD9: 185, ICD10: C61 (primary diagnosis) Continue with recommendations by urology Will message his urologist regarding patient's concerns on MRI results 2. Insomnia, unspecified type - ICD9: 780.52, ICD10: G47.00 Melatonin as discussed Follow up if no improvement 3. Increased urinary frequency - ICD9: 788.41, ICD10: R35.0 Ua normal - will try to improve constipation to see if this improves - UA DIP, URINE (POC) 4. Dark urine - ICD9: 791.9, ICD10: R82.998 As above - UA DIP, URINE (POC) 5. Constipation, unspecified constipation type - ICD9: 564.00, ICD10: K59.00 Take miralax daily for the next 3-5 days until you have a soft regular bowel movement. Hold for liquid stool. Follow up for any concerns. 6. Sinus drainage - ICD9: 478.19, ICD10: J34.89 - resolved and assessment negative Possible result of allergy or irritant. Follow up if this returns. Prescription instructions reviewed with patient as applicable. Potential red flag symptoms discussed with the patient. Reviewed appropriate action plan to take if red flag symptoms occur. Patient agreeable to treatment plan. Kayla Betancourt APRN.CNP documented in this encounterOhiohealth [facility]04-25-2024 History of Present illness Narrative* Juan Muniz RT(R) - 09/22/2023 10:00 AM EDT Radiology Service Progress Note DATE OF SERVICE: September 22, 2023 TIME: 10:43 AM PATIENT IDENTITY VERIFICATION COMPLETED USING TWO (2) STANDARD IDENTIFIERS: Name and Date of confirmed by patient verbally and Name and Date of confirmed by identification band. FALL SCREENING: Has the patient had 2 falls in the last year or 1 fall with injury or currently using an Ambulatory Assistive Device (Walker, Cane, Wheelchair, Crutches, etc.)? No PATIENT GENDER DATA: Male PATIENT RELEVANT IMPLANT DATA REVIEWED: Yes PATIENT PRESENTS WITH AN IMPLANTABLE OR ATTACHED EXTENSION WORK INSTRUCTOR: No ALLERGIES: Reviewed and unchanged CONTRAST ALLERGY: NO. EXAM: MRI - CONTRAST TYPE: GROUP II PERIPHERAL IV DATA: Ambulatory: A peripheral IV was started in the Left antecubital site with a Angio cath: 22 gauge. RADIOLOGY DEPARTMENT: MR; Exam(s) Completed: Body: Prostate SIGNATURE: RT Mckenna(R) PATIENT NAME: Zachary Short DATE: September 22, 2023 TIME: 10:43 AM documented in this encounterOhiohealth [facility]02-21-[facility]24 History of Present illness Narrative* Juan Blanton Jr., MD - 07/20/2023 9:24 AM EST ESTABLISHED PATIENT OFFICE VISIT HPI Zachary Short is a 78 year old male who presents sp trus bx 04/21. Did well after surgery. Gland 67cc. Path benign. Psa was 14.2 then and is now 12.17. no fever. No uti. Feels well otherwise. Options discussed. LAB: Creatinine Date Value Ref Range Status 03/25/2023 0.87 0.73 - 1.22 mg/dL Final PSA (ng/mL) Date Value 05/10/2023 12.17 03/25/2023 14.20 PSA Screening (ng/mL) Date Value 03/23/2022 9.18 10/06/2016 2.58 Glucose, Urine (mg/dL) Date Value 08/31/2011 Negative Bilirubin, Urine (no units) Date Value 08/31/2011 Negative Ketones, Urine (no units) Date Value 08/31/2011 Negative Specific Lorane, Ur (no units) Date Value 08/31/2011 1.020 Hemoglobin/Blood,Ur ( ) Date Value 08/31/2011 Negative pH, Urine (no units) Date Value 08/31/2011 5.5 Protein, Urine (mg/dL) Date Value 08/31/2011 Negative Nitrites (no units) Date Value 08/31/2011 Negative WBC, Urine (/HPF) Date Value 08/31/2011 3-5 MEDICATIONS: lisinopril-hydroCHLOROthiazide (ZESTORETIC) 10-12.5 mg per tablet Take 1 tablet by mouth once daily. naproxen (NAPROSYN) 500 mg tablet Take 1 tablet by mouth two times a day as needed (for pain/inflammation). Take with food. tamsulosin (FLOMAX) 0.4 mg Take 1 capsule by mouth daily at bedtime. aspirin, enteric coated (ASPIRIN, ENTERIC COATED) 81 mg EC tablet Take 1 tablet by mouth once daily. iv contrast (will be provided with radiology test) MRI Prostate Inject, intravenously, once for 1 dose. No IV access, insert saline lock prior to the beginning of sedation, infusion, injection of imaging exam. Discontinue saline lock post exam. If Pt. has a central line or IVAD, may access for administration according to line specific nursing protocol. Once exam is complete flush line and de-access according to line specific nursing protocol in the MR contrast administration guidelines link. REVIEW OF SYSTEMS Review of Systems Constitutional: Negative. Respiratory: Negative. Cardiovascular: Negative. Gastrointestinal: Negative. Genitourinary: Negative. Skin: Negative. Neurological: Negative. Psychiatric/Behavioral: Negative. 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 Only seasonal now FAMILY HISTORY Problem Relation Age of Onset Colon Cancer Father Cancer Mother metastatic melanoma SOCIAL HISTORY Social History Tobacco Use Smoking status: Never Passive exposure: Never Smokeless tobacco: Never Vaping Use Vaping Use: Never used Substance Use Topics Alcohol use: Yes Comment: socially, 3-4 beers/year Drug use: No PHYSICAL EXAMINATION General appearance: Well appearing, alert, in no acute distress, and well- hydrated, well nourished Skin: Skin color, texture, turgor normal, no suspicious rashes or lesions Respiratory:+ effort Cardiovascular: Not examined GI: Normal abdominal exam, Abdomen soft, non-tender. No masses, organomegaly Musculoskeletal: Negative Neuro: Negative Genitourinary: not examined Impression: (R97.20) Elevated prostate specific antigen (PSA) (primary encounter diagnosis) (Z03.89) Encounter for observation for other suspected diseases and conditions ruled out Plan: 6 months Mri prostate psa Juan Blanton Jr, MD 07/20/2023 documented in this encounterOhiohealth [facility]02-09-2024 Miscellaneous Notes* Telephone Encounter - Destinee Cloud RN - 07/08/2023 11:05 AM EST Responded in My chart. * Telephone Encounter - Rochelle Schwartz - 07/08/2023 10:51 AM EST Pt called asking if he should do his lab before his 07/19/[address] Blanton or if he should wait until July closer to when they are due? documented in this encounterOhiohealth [facility]12-21-2023 Miscellaneous Notes* Telephone Encounter - Ninfa Lopez LPN - 05/19/2023 10:48 AM EST Spoke with pt and information listed below given. Pt verbalizes understanding. Ninfa Lopez LPN * Telephone Encounter - Angus Rojo Ma - 05/19/2023 10:41 AM EST Left message to call office. 05/19/2023 10:41 AM * Telephone Encounter - Kayla Betancourt APRN.CNP - 05/19/2023 7:16 AM EST Please let patient know this is not cancer. Prostate cancer is typically very slow growing which means if this was to change into a cancer it would not be quickly. Dr. Blanton is rechecking his PSA in3 months to look for continued increase and is also seeing him in June to be re-evaluated. Thank you Kayla Betancourt APRN.DIRECTOR OF COMPENSATION * Telephone Encounter - Jo Branham LPN - 05/18/2023 9:55 AM EST Pt was referred to urology - OJSE F Jones who then referred pt to Dr Blanton. JOSE F Jones had ordered a scrotum & contents US but pt was told by Dr Blanton that he didn't need it. Pt is also asking JOgerardoer to look at his prostate biopsy results. He was told by urology that he does not have cancer however he sees the following: F. Prostate, left lateral apex, core biopsy: - High-grade prostatic intraepithelial neoplasia. Pt states he was told to check with his regular provider regarding his questions for the US. Pt is concerned that even though this is a pre cancer that it'll progress quickly in to cancer. Pt has a follow up with Dr Blanton 07/19/23. Jo Branham LPN documented in this encounterOhiohealth [facility]12-05-2023 Miscellaneous Notes* Telephone Encounter - Destinee Cloud RN - 05/03/2023 11:26 AM EST Patient made aware of message. Aware of plan of care. No other questions. Encounter closed. * Telephone Encounter - Juan Blanton Jr., MD - 05/03/2023 11:10 AM EST Yes That is not cancer Need to recheck psa in 3 months and fu then * Telephone Encounter - Destinee Cloud RN - 05/03/2023 10:[address] Blanton: F. Prostate, left lateral apex, core biopsy: - High-grade prostatic intraepithelial neoplasia. Can I reassure 3 month PSA OK with result? He was concerned. * Telephone Encounter - Rochelle Morris - 05/03/2023 10:45 AM EST Pt called and has question regarding his recent BX and and has a question with LINE F on the results. Please advise, thanks! documented in this encounterOhiohealth [facility]11-21-2023 Nurse Note* Marcus Goldberg Ma - 04/19/2023 11:48 AM EST The patient was seen in the office today for follow-up evaluation and transrectal ultrasound guidedprostate biopsy for a history of elevated psa (ICD- 10 code R97.2). The patient has a prior urologichistory of elevated PSA. He is doing well with no new significant complaints. Examination: unchanged The remainder of the examination is unremarkable. All recent laboratory and test results were reviewed with the patient. PSA (ng/mL) Date Value 03/25/2023 14.20 PSA Screening (ng/mL) Date Value 03/23/2022 9.18 10/06/2016 2.58 Creatinine Date Value Ref Range Status 03/25/2023 0.87 0.73 - 1.22 mg/dL Final A urinalysis was performed revealing: no evidence of infection or hematuria. Blood pressure 125/76, pulse 84, resp. rate 18, height 182.9 cm (6'), weight 113.9 kg (251 lb). Urinalysis pH, Arterial Date Value Ref Range Status 07/17/2007 7.43 7.35 - 7.45 Final Specific Lorane, Ur Date Value Ref Range Status 08/31/2011 1.020 1.001 - 1.029 Final Glucose, Urine Date Value Ref Range Status 08/31/2011 Negative Negative mg/dL Final Bilirubin, Urine Date Value Ref Range Status 08/31/2011 Negative Negative Final Ketones, Urine Date Value Ref Range Status 08/31/2011 Negative Negative Final Hemoglobin/Blood,Ur Date Value Ref Range Status 08/31/2011 Negative Negative Final Protein, Urine Date Value Ref Range Status 08/31/2011 Negative Negative mg/dL Final WBC, Urine Date Value Ref Range Status 08/31/2011 3-5 /HPF Final UNIVERSAL PROTOCOL / SAFETY CHECKLIST Procedure to be Performed: TRANSRECTAL ULTRASOUND GUIDED BIOPSY OF THE PROSTATE Sign In: A Moment of CARE was completed. Personnel directly involved with the procedure wore the appropriate PPE (Personal Protective Equipment). No special equipment needed. Patient/Surrogate Stated/Verified: PATIENT VERIFIED(optional for EMERGENT procedures): Patient name, Date of , Relevant allergies, and The intended procedure Time Out Communication: Intended patient and procedure match the source documents. Consent documented and matches the intended procedure. No relevant labs, photos, and/or imaging studies were applicable for review. No correct side/site applicable for marking and visibility. Medications required for procedure verified. No fire risk assessment and interventions applicable. No implant(s) inserted. Sign Out: SIGN OUT (optional for EMERGENT procedures): All specimen containers correctly labeled. Post-procedure follow-up management communicated and Plan of Care Visit completed when applicable. Marcus Goldberg Ma TRANS RECTAL ULTRASOUND PROSTATE BIOPSY The patient confirmed that he had discontinued all aspirin products, blood thinners and NSAIDS as directed. The prescribed prep and prophylactic antibiotics were taken as directed. He took Levaquin 750 mg orally and was given intramuscular gentamicin 160 mg. The benefits and risks of the transrectal ultrasound guided prostate biopsy procedure were discussed with the patient, especially the potential complications of prostate biopsy including, but not limited to: pain, infection, bleeding, hematochezia, hematuria, worsening of voiding symptoms, urinary r etention, sepsis and possible need for additional biopsies. All questions were answered to the patient's satisfaction. The written consent will be scanned into to the patient's electronic medical record. Procedure: The patient was placed on the procedure table in the lateral recumbent position. The well-lubricated transrectal ultrasound probe was carefully and atraumatically inserted into the rectum and the prostate was visualized. A periprostatic block was then given in the standard fashion, using 2% lidocaine with a spinal needle under directed transrectal ultrasound guidance. Once adequate anesthesia was achieved, 12 needle biopsy cores were taken from the left and right lobes of the prostate. Specimens were sent to pathology for histologic evaluation. The patient tolerated the procedure well without complications. Post procedure vitals: BP 109/70 P 101 R 18 Assessment: elevated psa (ICD-10 code R97.2) Plan: The patient was given standard post-procedure instructions and advised to stay well hydrated. The patient has been instructed to return to the office in approximately one week in order to review the biopsy results. That appointment will be scheduled by the patient, today. Based on these results, further management will be instituted. documented in this encounterOhiohealth [facility]11-21-2023 Procedure note* Juan Blanton Jr., MD - 04/19/2023 10:42 AM EST PROSTATE BIOPSY WITH ULTRASOUND GUIDANCE Zachary Short a 77 year old. History and Physical reviewed and is unchanged. . UNIVERSAL PROTOCOL / SAFETY CHECKLIST Procedure to be Performed: trus bx Sign In: A Moment of CARE was completed. Personnel directly involved with the procedure wore the appropriate PPE (Personal Protective Equipment). Patient/Surrogate Stated/Verified: PATIENT VERIFIED(optional for EMERGENT procedures): Patient name, Date of , Relevant allergies, and The intended procedure Time Out Communication: Intended patient and procedure match the source documents. Consent documented and matches the intended procedure. Sign Out: SIGN OUT (optional for EMERGENT procedures): All specimen containers correctly labeled. Juan Blanton Jr, MD Fire risk assessment done Pre procedure dx: elevated psa Post procedure dx: same Informed Consent Discussed: Yes. Risks, benefits, alternatives and personnel discussed with patientwho consents to proceed. Discussed RBAPC. Audible time out was performed. Is the patient having any pain? No 0 on a scale of 0 to 10 PSA (ng/mL) Date Value 03/25/2023 14.20 PSA Screening (ng/mL) Date Value 10/06/2016 2.58 PALPABLE NODULE: No Prostate biopsies taken from the site below using ultrasound guidance 1.) RIGHT BASE: 2 2.) RIGHT MID: 2 3.) RIGHT APEX: 2 4.) LEFT BASE: 2 5.) LEFT MID: 2 6.) LEFT APEX: 2 ALLERGIES No Known Allergies MEDICATIONS: 10 ml 1% Plain Xylocaine jose francisco prostatic nerve block given: Yes PROSTATE ULTRASOUND The prostate sonogram was obtained via transrectal approach. The gland is moderately enlarged, measuring 67cc. There is a homogeneous echo pattern throughout the prostate gland. Echogenic foci within the gland consistant with clacifications were noted. There is no focal lesion within the pereferal zone of the prostate gland. Juan Blanton Jr, MD documented in this encounterOhiohealth [facility]11-03-2023 Miscellaneous Notes* Telephone Encounter - Destinee Cloud RN - 04/01/2023 9:40 AM EDT Patient called to ask about Prostate Biopsy coverage. Advised Referral in, but auth OK. Went over instructions and will send to My Chart as well. MEDICATION INFORMATION ASPIRIN and ADVIL can make you more prone to bleeding after surgery. Please STOP taking these medications at least (7) days before surgery or procedure. Medications can be resumed (1) days after the Prostate Biopsy procedure. NOTE: Please obtain approval to stop any prescribed medication from the prescribing doctor. Some common medications that contain ASPIRIN or act like Aspirin are to be avoided are as follows: This is a list of the medications you should avoid: Advil Clinoril (Sulindac) Naprosyn (Naproxen) Aggrenox Ecotrin NSAID (Non-Steroidal Agrylin Excedrin Anti-Inflammatory Drugs) Aleve (Naproxen) Fish Oil Pepto-Bismol [place] Gingko [place] Persantine (Dipyridamole) Anacin Glucosamine Chondroitin Plavix (Clopidogrel) Ascriptin Green Tea Plaquenil (Hydroxychloroquine) Aspergum Heparin Pletal (Cilostazol) Aspirin Herbals Ticlid (Ticlopidine) Reza Ibuprofen Trental (Pentoxyfylline) Bextra Indocin (Indomethacin) Vanquish Bufferin Midol Vitamin E (MVI) Coumadin (warfarin) Mobic/Meloxicam Multivitamin (MVI) MEDICATIONS you may SUBSTITUTE: Anacin 3 Plenadol Percocet* Datril Sine-Aide Excedrin PM Tylenol Fioricet* Tylenol with codeine* (*Denotes prescription needed to obtain these medications) ADDITIONAL DIRECTIONS Antibiotic: Oral and IM Injection will be given in office the day of the procedure Please arrive 15 minutes early, you will be asked to provide a urine sample upon arrival. Fasting: Fasting is NOT required. Fleets Enema: Please administer rectally 2-4 hours before the Prostate Biopsy. This can be purchased at the pharmacy of your choice. Chief Service Observer:Recommended but not mandatory. For questions contact: [facility] Nurse Line @ [phone] After hours, call answering service @ [phone] documented in this encounterOhiohealth [facility]11-02-2023 Miscellaneous Notes* Telephone Encounter - Alexandrea Daniel - 03/31/2023 8:01 AM EDT Pt confirmed prostate bx @ [place] with Dr. Blanton 04/19/23 @ 10:30 am. He will check with his doctor re: blood thinners. Ref by Jacqueline Jones. Pattie * Telephone Encounter - Nithya Rosales LPN - 03/30/2023 4:51 PM EDT Called patient. Verified name and date of . Patient notified- verbalizes understanding. Does wish to have biopsy completed. Aware staff will call him to arrange. Nithya Rosales LPN * Telephone Encounter - Dat Jones PA-C - 03/30/2023 3:40 PM EDT Please notify patient that his IsoPSA came back at 13.1 % and a PSA of 14.86 The IsoPSA being greater than 6.1% indicates there is a risk of high grade prostate cancer in the next 10 years So a prostate biopsy is recommended. Orders have been placed for biopsy if he wished to have biopsy I will arrange procedure with staff Urologist If he wishes to discuss results I am happy to discuss at visit. TAYLOR Estrada, LAM, ALICIA documented in this encounterOhiohealth [facility]ering[facility]11-01-2023 Miscellaneous Notes* Telephone Encounter - Roxana Reza Ma - 03/30/2023 1:15 PM EDT Results gone over in OV today. * Telephone Encounter - Roxana Reza Ma - 03/30/2023 1:15 PM EDT ----- Message from Kayla Betancourt APRN.DIRECTOR OF COMPENSATION sent at 03/30/2023 11:45 AM EDT ----- Please let patient know his blood work, outside of PSA, was all within acceptable ranges Thank you Kayla Betancourt APRN.DIRECTOR OF COMPENSATION documented in this encounterOhiohealth [facility]ering[facility]10-31-2023 History of Present illness Narrative* Dat Jones PA-C - 03/29/2023 3:19 PM EDT Images from the original note were not included. [facility] ESTABLISHED PATIENT CLINIC NOTE Some elements copied from his previous note, which have been updated where appropriate, and all reflect current medical decision making from date of this visit. NAME: Zachary Short CHIEF COMPLAINT: BPH , Elevated PSA HISTORY OF PRESENT ILLNESS: Zachary Short is a 77 year old male an established patient following up for BPH w Obstruction and elevated PSA of 14.20 He does still have a increased PVR with 426 ml and with good renal function tests and continues Flomax Iso PSA /Biopsy Patient has new groin pain that goes to right testicle will get a scrotum US PSA (ng/mL) Date Value 03/25/2023 14.20 PSA Screening (ng/mL) Date Value 03/23/2022 9.18 10/06/2016 2.58 LABS: Hematocrit (%) Date Value 03/25/2023 41.0 03/23/2022 43.8 06/11/2020 41.9 08/29/2018 43.4 12/07/2016 44.6 06/25/2014 43.3 PSA (ng/mL) Date Value 03/25/2023 14.20 PSA Screening (ng/mL) Date Value 03/23/2022 9.18 10/06/2016 2.58 No results found for: TESTOST PSA (ng/mL) Date Value 03/25/2023 14.20 PSA Screening (ng/mL) Date Value 03/23/2022 9.18 10/06/2016 2.58 Creatinine Date Value Ref Range Status 03/25/2023 0.87 0.73 - 1.22 mg/dL Final 03/23/2022 0.92 0.73 - 1.22 mg/dL Final 06/11/2020 0.87 0.73 - 1.22 mg/dL Final 08/29/2018 0.89 0.73 - 1.22 mg/dL Final MEDICATIONS: tamsulosin (FLOMAX) 0.4 mg Take 1 capsule by mouth daily at bedtime. lisinopril-hydroCHLOROthiazide (PRINZIDE,ZESTORETIC) 10-12.5 mg per tablet Take 1 tablet by mouth once daily. aspirin, enteric coated (ASPIRIN, ENTERIC COATED) 81 mg EC tablet Take 1 tablet by mouth once daily. 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 Only seasonal now REVIEW OF SYSTEMS: GENERAL: No fever, chills, weight loss, or fatigue. All other systems reviewed and are negative PHYSICAL EXAMINATION: Blood pressure 110/70, pulse 86, temperature 36.8 C (98.3 F), temperature source Temporal, resp. rate 14, height 182.9 cm (6'), weight 114.7 kg (252 lb 12.8 oz), SpO2 97 %. GENERAL: WNL nutrition, no deformities, healthy appearing PROBLEM LIST REVIEW: Yes LABS: Results for orders placed or performed in visit on 03/29/23 UA DIP, URINE (POC) Result Value Ref Range GLUCOSE UA (POCT) Negative Negative mg/dL BILIRUBIN UA (POCT) Negative Negative KETONE UA (POCT) Negative Negative mg/dL SPECIFIC GRAVITY UA (POCT) 1.015 1.005 - 1.030 HEMOGLOBIN/BLOOD UA (POCT) Negative Negative PH UA (POCT) 6.5 4.5 - 8.0 PROTEIN UA (POCT) Negative Negative mg/dL UROBILINOGEN UA (POCT) 0.2 Normal E.U./dL NITRITE UA (POCT) Negative Negative LEUKOCYTES UA (POCT) Negative Negative COLOR UA (POCT) Light yellow CLARITY UA (POCT) Slightly Cloudy PROCEDURES: PVR: 426 ml IMAGING: IMPRESSION/PLAN: 76 year old male with 1. Elevated PSA - ICD9: 790.93, ICD10: R97.20 (primary diagnosis) 2. Benign prostatic hyperplasia with urinary obstruction - ICD9: 600.01, 599.69, ICD10: N40.1, N13.8 3. Pain in right testicle - ICD9: 608.9, ICD10: N50.811 > Continue Flomax daily > PSA is 14.20 recommend IsoPSA > Scrotum US -pending > follow-up based on IsoPSA test TAYLOR Estrada, ALICIA FRITZ * Nithya Rosales LPN - 03/29/2023 3:11 PM EDT Verified name and date of . CC Post Void Residual HPI: Zachary Short is a 77 year old male. The patient is here now for an appointment with Dat Jones, [facility], [place], PA-COV. Procedure: Explained procedure to patient and verbalizes understanding. Performed a PVR. Patient urinated and instructed to empty bladder as much as possible just prior to having PVR done using bladder ultrasound scanner. Results of scan: 426 mL The patient tolerated the procedure well. Plan: Appointment with Dat. documented in this encounterOhiohealth Pickering[facility]10-26-2023 Miscellaneous Notes* Telephone Encounter - Maritza Vivar RN - 03/24/2023 12:37 PM EDT Pt notified lab orders are in and to be fasting for 12 hours before. * Telephone Encounter - Kayla Betancourt APRN.CNP - 03/24/2023 12:28 PM EDT Fasting blood work orders placed. Thank you Kayla Betancourt APRN.DIRECTOR OF COMPENSATION * Telephone Encounter - Florence Goldberg RN - 03/24/2023 9:51 AM EDT Patient calls and states that he has annual appointment with provider on 03/30/2023 and would like to get labs done prior to appointment. Patient asking if provider would place lab orders? Please review and advise, Florence Goldberg RN documented in this encounterOhiohealth Pickering[facility]10-26-2023 Miscellaneous Notes* Telephone Encounter - Alexus Reagan - 03/24/2023 10:06 AM EDT Patient has been identified by name and date of : Yes, Requested Prescriptions Pending Prescriptions Disp Refills tamsulosin (FLOMAX) 0.4 mg 90 capsule 3 Sig: Take 1 capsule by mouth daily at bedtime. Date of last office visit in primary care: 07/06/2022 Date of next office visit in primary care: Visit date not found Last 2 Encounter Wt Readings: Date: Wt: 07/06/2022 114.8 kg (253 lb) 06/25/2022 115.2 kg (254 lb) Please advise. Thank you. Alexus Moore Pss. documented in this encounterOhiohealth Pickering[facility]08-07-2023 History of Present illness Narrative* Kayla Coe MA - 01/03/2023 1:03 PM EDT POPULATION HEALTH NAVIGATION OUTREACH Action/FYI Spoke with Zachary. Advise him lab fasting orders have been placed. Patient Identified by Name and : YES, via phone Outreach Outcome/Action Spoke to patient / parent / legal guardian: Patient scheduled Did you use a PCP flex slot to schedule this appointment? N/A Reason for Outreach Care Gap or Scheduling/Wellness visits Payer: Payor: MEDICARE / Plan: MEDICARE A AND B / Product Type: Medicare / Care Gap Reviewed:: Annual Wellness visit Reminder: Reminder note to check Health Maintenance for items below Health Maintenance items due: There are no preventive care reminders to display for this patient. Navigation Signature: Kayla Coe MA January 03, 2023 1:03 PM * Kayla Betancourt APRN.CNP - 12/31/2022 12:06 PM EDT Orders have been placed Kayla Betancourt APRN.CNP * Kayla Coe MA - 12/30/2022 9:56 AM EDT POPULATION HEALTH NAVIGATION OUTREACH Action/FYI Please sign lab orders Patient requested lab work Spoke with Zachary schedule medicare wellness exam ANNUAL MEDICARE WELLNESS AFTER 03-20-23 Patient Identified by Name and : YES, via phone Outreach Outcome/Action Spoke to patient / parent / legal guardian: Patient scheduled Did you use a PCP flex slot to schedule this appointment? No Reason for Outreach Care Gap or Scheduling/Wellness visits Payer: Payor: MEDICARE / Plan: MEDICARE A AND B / Product Type: Medicare / Care Gap Reviewed:: Annual Wellness visit Reminder: Reminder note to check Health Maintenance for items below Health Maintenance items due: There are no preventive care reminders to display for this patient. Navigation Signature: Kayla Coe MA December 30, 2022 9:56 AM documented in this encounter[facility] History of Present illness Narrative* Nithya Rosales LPN - 04/20/2022 8:45 AM EST Verified name and date of . CC Post Void Residual HPI: Zachary Short is a 76 year old male. The patient is here now for an appointment with TAYLOR Estrada MT, [place]. Procedure: Explained procedure to patient and verbalizes understanding. Performed a PVR. Patient urinated and instructed to empty bladder as much as possible just prior to having PVR done using bladder ultrasound scanner. Results of scan: 390 mL The patient tolerated the procedure well. Plan: Spoke with Dat Jones PA-C and aware of PVR results. Patient to continue on Flomax and follow up in three months for PVR. Patient verbalizes understanding. documented in this encounterOhio[facility]10-27-[facility] History of Present illness Narrative* Kayla Betancourt APRN.MARITO - 03/25/2022 8:02 AM EDT CC: Patient presents with: Yearly Exam: Yearly medication follow up HPI Zachary Short is a 76 year old male who presents today for annual exam. HTN and HLD: Mr. Short indicates that he is feeling well and denies any symptoms referable to elevated blood pressure. Specifically denies headache, chest pain, palpitations, dyspnea, and peripheral edema. Patient denies any side effects of his medication(s) and is compliant with their regimen. He does check BP's away from this office with average BP's in the 120s/70s range. Zachary works out regular ly 3-5 times per week with walking and yard work. He watches his diet for sodium, low fat and low cholesterol generally not very much. Last 3 Encounter BP Readings: Date: BP: 03/25/2022 128/86 03/04/2021 136/60 06/12/2020 122/78 Elevated PSA: States he has had it elevated before and saw urology 6-7 years ago which he was told it was normal. Reports chronic hesitancy and slow stream and gets up 2 times a night to urinate. No pain, hematuria, and incontinence. Toe nail infection has been dealing with this for a year and a half using over the counter antifungal nail pakistani. He and his son both got this from using showers at a [employer] club. Son required oral antifungal treatment. Over 6 months ago, scratched a scab on his LUE and states he had a bullseye on it so realized the scab he scratched off was probable a tick. States he lives in an area that her routinely gets ticks on him. Found out recently this is a sign of lyme disease and would like to have a panel drawn to check this out. Patient denies any fatigue, fever, numbness, tingling, change in mental status, or weakness. 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 Denies any new changes to his skin since last dermatology visit. Osteoarthritis of knees: Had Left knee replaced years ago, and gets regular injections into the right knee. Was told by orthopedic in [place] the right knee needs replaced as well but patient declined this. Denies any joint swelling, weakness, redness, numbness, or tingling. REVIEW OF SYSTEMS General: no fevers, no chills, no night sweats, no recurrent infections, no change in appetite, no change in energy, and no significant changes in weight HEENT: no frequent or significant headaches, no changes in hearing, no visual changes, no nose bleeds, no sinus or nasal problems Respiratory: no cough, no wheezing, no shortness of breath Cardiovascular: no chest pain, no chest pressure, no palpitations, and no swelling GI: No nausea, vomiting, or diarrhea : See HPI Musculoskeletal: See HPI Skin: See HPI Psych: PHQ2 is 0 Hematologic/Lymph: Negative for prolonged bleeding, bruising easily or swollen nodes Endocrine: no fatigue, no weight gain, no weight loss, no cold intolerance, no heat intolerance, nopolyuria, no polyphagia, and no polydipsia Neurologic: No headache, weakness, numbness, tingling, dizziness, syncope. PAST MEDICAL HISTORY Diagnosis Date Benign neoplasm of rectum and anal canal Cervical spondylosis without myelopathy Essential hypertension, benign Family history of malignant neoplasm of gastrointestinal tract Father Other and unspecified hyperlipidemia diet controlled Unspecified asthma(493.90) childhood. Only seasonal now PAST SURGICAL HISTORY Procedure Laterality Date ARTHROPLASTY HEMIARTHROPLASTY 09/10/2011 left shoulder Ari arthroplasty ARTHROPLASTY HEMIARTHROPLASTY 03/07/2012 left shoulder revision COLONOSCOPY & POLYPECTOMY 08/23/11 repeat 5 years COLONOSCOPY FLX DX W/COLLJ SPEC WHEN PFRMD 10/19/2016 Normal colonoscopy-family history-5 year follow-up NECK 07/17/2007 Anterior cervical discectomy allograft fusion on c-4,c-5,c-6 ALLERGIES Environmental [Other] MEDICATIONS lisinopril-hydroCHLOROthiazide (PRINZIDE,ZESTORETIC) 10-12.5 mg per tablet Take 1 tablet by mouth once daily. docusate sodium (COLACE) 100 mg capsule Take 1 capsule by mouth twice daily as needed for Constipation. aspirin, enteric coated (ASPIR-81) 81 mg EC tablet Take 1 tablet by mouth once daily. acetaminophen/d-brompheniramin 650-2 mg tab Take 650 mg by mouth once daily. mupirocin (BACTROBAN) 2 % ointment FAMILY HISTORY Problem Relation Age of Onset Colon Cancer Father Cancer Mother metastatic melanoma Social History Tobacco Use Smoking status: Never Smokeless tobacco: Never Substance Use Topics Alcohol use: Yes Comment: socially, 3-4 beers/year Drug use: No PHYSICAL EXAM BP 128/86 Pulse 68 Resp 16 Wt 117 kg (258 lb) BMI 34.99 kg/m General Appearance: well appearing, in no acute distress, alert Pysch: mood and affect broad and appropriate Skin: Skin color, texture, turgor normal for age; Eyes: conjunctiva pink and moist, no icterus, sclera white, non-injected Neck: Thyroid normal size and symmetric without palpable nodules, No adenopathy Lymph nodes: No cervical lymphadenopathy and No supraclavicular lymphadenopathy Lungs: Lungs clear to auscultation. No wheezing, rhonchi, rales. Heart: RRR without murmur, gallop, or rubs. No ectopy Abdomen: Abdomen soft, non-tender. Bowel sounds normal. No masses, organomegaly Extremities: No deformities, edema, skin discoloration, clubbing or cyanosis. Good capillary refill. Bilateral toes with thickened discolored nails worse on the left toes. Neurological: Gait normal. Reflexes normal and symmetric. Sensation grossly intact. Health maintenance reviewed with patient: HEPATITIS C SCREENING Never done BP CONTROLLED (<130/80) Never done ADVANCE DIRECTIVE DISCUSSION Never done DEPRESSION ASSESSMENT Never done ANNUAL PCP TEAM CHRONIC DISEASE VISIT due on 03/04/2022 INFLUENZA(1) due on 11/26/2022 DTAP,TDAP,TD(1 - Tdap) due on 03/25/2023 SHINGRIX VACCINE(1 of 2) due on 03/25/2023 COVID-19 VACCINE(3 - Booster for Pfizer series) due on 03/25/2023 DIABETES SCREEN due on 03/23/2025 PNEUMOCOCCAL: 65+ Completed DATA REVIEWED: Most recent labs ASSESSMENT/PLAN: 1. Annual physical exam - ICD9: V70.0, ICD10: Z00.00 (primary diagnosis) - Counseled on healthy diet and regular exercise - Discussed need for and benefit of weight loss. BMI 34.99 kg/(m^2) - Counseled on limiting alcohol intake to 2 drinks per day - Depression screening tool completed and reviewed with patient. Based on score and interview, patient is not at risk for depression and recommended no further intervention at this time. - Follow up for annual exam in one year 2. Essential hypertension, benign - ICD9: 401.1, ICD10: I10 - good control - Continue current medication(s) - Encouraged dietary sodium restriction/DASH diet - Recommended regular aerobic exercise. - Recommend home blood pressure monitoring, to bring results in on next visit - Goal of BP <130/80 - LISINOPRIL 10 MG-HYDROCHLOROTHIAZIDE 12.5 MG TABLET 3. Elevated PSA - ICD9: 790.93, ICD10: R97.20 - CONSULT TO UROLOGY 4. Onychomycosis - ICD9: 110.1, ICD10: B35.1 - will start oral treatment and recheck liver enzymes in 1 month, if no improvement will send to podiatry for further evaluation - TERBINAFINE HCL 250 MG TABLET - HEPATIC FUNCTION PNL - follow up in 3 months 5. Medication monitoring encounter - ICD9: V58.83, ICD10: Z51.81 As above. - HEPATIC FUNCTION PNL 6. Tick bite of right upper arm, initial encounter - ICD9: 912.4, E906.4, ICD10: S40.861A, W57.XXXA - LYME AB LATE >30 DAYS SYMPTOMS 7. Erythema migrans - ICD9: 529.1, ICD10: K14.1 - LYME AB LATE >30 DAYS SYMPTOMS Prescription instructions reviewed with patient as applicable. Potential red flag symptoms discussed with the patient. Reviewed appropriate action plan to take if red flag symptoms occur. Patient agreeable to treatment plan. Kayla Betancourt APRN.CNP documented in this encounterOhio[facility]10-20-2022 Miscellaneous Notes* Telephone Encounter - Kayla Betancourt APRN.CNP - 03/18/2022 9:04 AM EDT Ordered. Kayla Betancourt APRN.CNP * Telephone Encounter - Hari Rodriguez RN - 03/17/2022 5:28 PM EDT Pt called and is notified of providers message. Pt voices understanding. Pt asking if provider would add the PSA on for him. Hari Rodriguez RN * Telephone Encounter - Kayla Betancourt APRN.CNP - 03/17/2022 12:41 PM EDT Fasting lab orders are placed. Thank you Kayla Betancourt APRN.CNP * Telephone Encounter - Hanny Tang LPN - 03/16/2022 1:33 PM EDT Patient came in to have labs completed. Still needs to have them ordered. Please review and advise. Patient would like to be notified when labs have been ordered. * Telephone Encounter - Janett Espinal LPN - 03/09/2022 3:59 PM EDT Scheduled medication follow-up for Patient, 03/25/2022, he is asking for labs to be done prior to coming in. Please order, notify Patient once order is in. Janett Espinal LPN documented in this encounterOhio[facility]10-11-2022 Miscellaneous Notes* Telephone Encounter - Janett Espinal LPN - 03/09/2022 3:53 PM EDT Patient has been identified by name and date of : Yes Patient phones for refill(s): Requested Prescriptions Pending Prescriptions Disp Refills lisinopril-hydroCHLOROthiazide (PRINZIDE,ZESTORETIC) 10-12.5 mg per tablet 90 tablet 3 Sig: Take 1 tablet by mouth once daily. Date of last office visit in primary care: 03/04/2021 Patient scheduled appt: 03/25/2022 Last 2 Encounter Wt Readings: Date: Wt: 03/04/2021 116.6 kg (257 lb) 06/12/2020 121.1 kg (267 lb) Previous labs/tests for medication: Blood Pressure: BUN (mg/dL) Date Value 06/11/2020 15 Sodium (mmol/L) Date Value 06/11/2020 139 Last 1 Encounter BP Readings: Date: BP: 03/04/2021 136/60 Please advise. Thank you. Janett Espinal LPN * Telephone Encounter - Licha Cespedes - 03/09/2022 1:42 PM EDT Patient has been identified by name and date of : Yes Requested Prescriptions Pending Prescriptions Disp Refills lisinopril-hydroCHLOROthiazide (PRINZIDE,ZESTORETIC) 10-12.5 mg per tablet 90 tablet 3 Sig: Take 1 tablet by mouth once daily. RX INSTRUCTIONS: Patient is asking for at least 6 months - he will schedule an appointment early 2022 Patient aware RX will be sent to pharmacy. No need to notify patient. Licha Cespedes documented in this encounterOhio[facility]12-19-2008 History of Past illness Narrative* Problem Noted Date Resolved Date Other seborrheic keratosis 05/17/200809/15 ACTINIC DAMAGE///CHR SOLAR SKIN DAMAGE NOS 05/1709/15/2009 documented as of this encounter (statuses as of 03/10/2022) [facility] of Past illness Narrative* Problem Noted Date Resolved Date Other seborrheic keratosis 05/17/200809/15 ACTINIC DAMAGE///CHR SOLAR SKIN DAMAGE NOS 05/1709/15/2009 documented as of this encounter (statuses as of 03/18/2022) [facility] of Past illness Narrative* Problem Noted Date Resolved Date Other seborrheic keratosis 05/17/200809/15 ACTINIC DAMAGE///CHR SOLAR SKIN DAMAGE NOS 05/1709/15/2009 documented as of this encounter (statuses as of 03/25/2022) [facility] of Past illness Narrative* Problem Noted Date Resolved Date Other seborrheic keratosis 05/17/200809/15 ACTINIC DAMAGE///CHR SOLAR SKIN DAMAGE NOS 05/1709/15/2009 documented as of this encounter (statuses as of 04/20/2022) [place] [address]19-2008 History of Past illness Narrative* Problem Noted Date Diagnosed Date Resolved Date Other seborrheic keratosis 05/17/2008 0 09/15/2009 ACTINIC DAMAGE///CHR SOLAR SKIN DAMAGE NOS 05/17/2008 09/15/2009 documented as of this encounter (statuses as of 01/03/2023) [address]19-[address] History of Past illness Narrative* Problem Noted Date Diagnosed Date Resolved Date Other seborrheic keratosis 05/17/2008 0 09/15/2009 ACTINIC DAMAGE///CHR SOLAR SKIN DAMAGE NOS 05/17/2008 09/15/2009 documented as of this encounter (statuses as of 03/24/2023) [facility] of Past illness Narrative* Problem Noted Date Diagnosed Date Resolved Date Other seborrheic keratosis 05/17/2008 0 09/15/2009 ACTINIC DAMAGE///CHR SOLAR SKIN DAMAGE NOS 05/17/2008 09/15/2009 documented as of this encounter (statuses as of 03/25/2023) [address]19[address]2008 History of Past illness Narrative* Problem Noted Date Diagnosed Date Resolved Date Other seborrheic keratosis 05/17/2008 0 09/15/2009 ACTINIC DAMAGE///CHR SOLAR SKIN DAMAGE NOS 05/17/2008 09/15/2009 documented as of this encounter (statuses as of 03/30/2023) [address]19[address] History of Past illness Narrative* Problem Noted Date Diagnosed Date Resolved Date Other seborrheic keratosis 05/17/2008 0 09/15/2009 ACTINIC DAMAGE///CHR SOLAR SKIN DAMAGE NOS 05/17/2008 09/15/2009 documented as of this encounter (statuses as of 03/30/2023) [facility] of [facility] illness Narrative* Problem Noted Date Diagnosed Date Resolved Date Other seborrheic keratosis 05/17/2008 0 09/15/2009 ACTINIC DAMAGE///CHR SOLAR SKIN DAMAGE NOS 05/17/2008 09/15/2009 documented as of this encounter (statuses as of 03/31/2023) [facility] of [facility] illness Narrative* Problem Noted Date Diagnosed Date Resolved Date Other seborrheic keratosis 05/17/2008 0 09/15/2009 ACTINIC DAMAGE///CHR SOLAR SKIN DAMAGE NOS 05/17/2008 09/15/2009 documented as of this encounter (statuses as of 04/01/2023) [facility] of [facility] illness Narrative* Problem Noted Date Diagnosed Date Resolved Date Other seborrheic keratosis 05/17/2008 0 09/15/2009 ACTINIC DAMAGE///CHR SOLAR SKIN DAMAGE NOS 05/17/2008 09/15/2009 documented as of this encounter (statuses as of 04/19/2023) [address]2008 History of Past illness Narrative* Problem Noted Date Diagnosed Date Resolved Date Other seborrheic keratosis 05/17/2008 0 09/15/2009 ACTINIC DAMAGE///CHR SOLAR SKIN DAMAGE NOS 05/17/2008 09/15/2009 documented as of this encounter (statuses as of 05/03/2023) [address]19[address] History of Past illness Narrative* Problem Noted Date Diagnosed Date Resolved Date Other seborrheic keratosis 05/17/2008 0 09/15/2009 ACTINIC DAMAGE///CHR SOLAR SKIN DAMAGE NOS 05/17/2008 09/15/2009 documented as of this encounter (statuses as of 05/20/2023) [address]19[address]2008 History of Past illness Narrative* Problem Noted Date Diagnosed Date Resolved Date Other seborrheic keratosis 05/17/2008 0 09/15/2009 ACTINIC DAMAGE///CHR SOLAR SKIN DAMAGE NOS 05/17/2008 09/15/2009 documented as of this encounter (statuses as of 07/08/2023) [address]19[address] History of Past illness Narrative* Problem Noted Date Diagnosed Date Resolved Date Other seborrheic keratosis 05/17/2008 0 09/15/2009 ACTINIC DAMAGE///CHR SOLAR SKIN DAMAGE NOS 05/17/2008 09/15/2009 documented as of this encounter (statuses as of 07/20/2023) [facility] Diagnosis Essential hypertension, benign [facility] Diagnosis Mixed hyperlipidemia- Primary Essential hypertension, benign Annual physical exam Routine general medical examination at a health care facility Prostate cancer screening Special screening for malignant neoplasm of prostate documented [facility] this encounter [facility] Diagnosis Annual physical exam- Primary Routine general medical examination at a health care facility Essential hypertension, benign Elevated PSA Elevated prostate specific antigen (PSA) Onychomycosis Dermatophytosis of nail Medication monitoring encounter Encounter for therapeutic drug monitoring Tick bite of right upper arm, initial encounter Erythema migrans [facility] Diagnosis Benign prostatic hyperplasia with urinary obstruction- Primary [facility] Diagnosis Essential hypertension, benign- Primary Mixed hyperlipidemia Screening for prostate cancer Special screening for malignant neoplasm of prostate [facility] Diagnosis Annual physical exam- Primary Routine general medical examination at a health care facility Encounter for wellness examination Elevated PSA Elevated prostate specific antigen (PSA) documented [facility] this encounter [facility] Diagnosis Elevated PSA- Primary Elevated prostate specific antigen (PSA) Benign prostatic hyperplasia with urinary obstruction Pain in right testicle Unspecified disorder of male genital organs documented [facility] Diagnosis Elevated prostate specific antigen (PSA)- Primary [facility]* Diagnosis Elevated prostate specific antigen (PSA)- Primary [facility] Diagnosis Elevated prostate specific antigen (PSA)- Primary Encounter for observation for other suspected diseases and conditions ruled out [facility]* Diagnosis Encounter for observation for other suspected diseases and conditions ruled out Elevated prostate specific antigen (PSA) documented [facility] this encounter [facility]* Diagnosis Prostate cancer (HCC)- Primary Malignant neoplasm of prostate Insomnia, unspecified type Increased urinary frequency Urinary frequency Dark urine Other nonspecific finding on examination of urine Constipation, unspecified constipation type Sinus drainage Other diseases of nasal cavity and sinuses documented [facility] this encounter [facility] Diagnosis Elevated prostate specific antigen (PSA)- Primary [facility]* Diagnosis Prostate cancer (HCC)- Primary Malignant neoplasm of prostate Dysuria [facility]* Diagnosis Prostate cancer (HCC) Malignant neoplasm of prostate [facility] Diagnosis Prostate cancer (HCC)- Primary Malignant neoplasm of prostate Vitamin D deficiency Unspecified vitamin D deficiency Vitamin B12 deficiency Other B-complex deficiencies Essential hypertension, benign [facility] encounter [facility] Diagnosis Prostate cancer (HCC)- Primary Malignant neoplasm of prostate [facility] Diagnosis Prostate cancer (HCC) Malignant neoplasm of prostate [facility]* Diagnosis Medication management Encounter for long-term (current) use of other medications documented [facility] this [facility]* Diagnosis Essential hypertension, benign [facility] Diagnosis Encounter for Medicare annual wellness exam- Primary Routine general medical examination at a health care facility Annual physical exam Routine general medical examination at a [facility] care facility Mixed hyperlipidemia Primary hypertension Unspecified essential hypertension [facility] Diagnosis Medicare annual wellness visit, subsequent- Primary Routine general medical examination at a health care facility Insomnia, unspecified type Prostate cancer (HCC) Malignant neoplasm of prostate [facility] Diagnosis Prostate cancer (HCC)- Primary Malignant neoplasm of prostate Unable to void Other symptoms involving urinary system [facility]* Diagnosis Urine retention- Primary Retention of urine, unspecified BPH with obstruction/lower urinary tract symptoms Hypertrophy of prostate with urinary obstruction and other lower urinary tract symptoms (LUTS) Prostate cancer (HCC) Malignant neoplasm of prostate [facility]* Diagnosis Urine retention- Primary Retention of urine, unspecified [facility] Diagnosis Prostate cancer (HCC)- Primary Malignant neoplasm of prostate Closed fracture of multiple ribs of both sides, sequela Fracture of vertebra due to osteoporosis, sequela Other osteoporosis, unspecified pathological fracture presence Debility Debility, unspecified Falls frequently Personal history of fall [facility] this [facility] Diagnosis Upper respiratory tract infection, unspecified type- Primary [facility]* Diagnosis Prostate cancer (HCC)- Primary Malignant neoplasm of prostate [facility]* Diagnosis Prostate cancer (HCC) Malignant neoplasm of prostate [facility]* Diagnosis Prostate cancer (HCC)- Primary Malignant neoplasm of prostate [facility] Diagnosis Prostate cancer (HCC)- Primary Malignant neoplasm of prostate [facility] Diagnosis Prostate cancer (HCC)- Primary Malignant neoplasm of prostate [facility] Diagnosis Prostate cancer (HCC)- Primary Malignant neoplasm of prostate [facility] Diagnosis Prostate cancer (HCC)- Primary Malignant neoplasm of prostate [facility] Diagnosis Prostate cancer (HCC)- Primary Malignant neoplasm of prostate Self-catheterizes urinary bladder Other specified conditions influencing health status Falls Unspecified fall Decreased bone density Other disorders of bone and cartilage Essential hypertension Unspecified essential hypertension [facility]* Diagnosis Prostate cancer (HCC)- Primary Malignant neoplasm of prostate documented in this encounter [facility]* Diagnosis Prostate cancer (HCC)- Primary Malignant neoplasm of prostate documented in this encounter [facility]* Diagnosis Prostate cancer (HCC)- Primary Malignant neoplasm of prostate documented in this encounter [facility]* Diagnosis Prostate cancer (HCC)- Primary Malignant neoplasm of prostate documented in this encounter [facility] note* Diagnosis BPH with obstruction/lower urinary tract symptoms- Primary Hypertrophy of prostate with urinary obstruction and other lower urinary tract symptoms (LUTS) Prostate cancer (HCC) Malignant neoplasm of prostate Recurrent UTI Urinary tract infection, site not specified documented in this encounter [facility] note* Diagnosis Other osteoporosis, unspecified pathological fracture presence documented in this encounter [facility] note* Diagnosis Medication monitoring encounter- Primary Encounter for therapeutic drug monitoring Vitamin D deficiency Unspecified vitamin D deficiency 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 Abnormal EKG Nonspecific abnormal electrocardiogram (ECG) (EKG) Supraventricular premature beats Hypomagnesemia Disorders of magnesium metabolism Elevated TSH Nonspecific abnormal results of thyroid function study Cardiac arrhythmia, unspecified cardiac arrhythmia type documented in this encounter [facility] note* Diagnosis Malignant neoplasm of prostate (HCC)- Primary Malignant neoplasm of prostate BPH with obstruction/lower urinary tract symptoms Hypertrophy of prostate with urinary obstruction and other lower urinary tract symptoms (LUTS) documented in this encounter [facility] note* Diagnosis Encounter for Mahoney catheter replacement- Primary Fitting and adjustment of urinary device BPH with obstruction/lower urinary tract symptoms Hypertrophy of prostate with urinary obstruction and other lower urinary tract symptoms (LUTS) documented in this encounter [facility] note* Diagnosis Preop examination- Primary Preoperative examination, unspecified Obesity, Class I, BMI 30-34.9 Obesity, unspecified Mixed hyperlipidemia Primary hypertension Unspecified essential hypertension BPH with obstruction/lower urinary tract symptoms Hypertrophy of prostate with urinary obstruction and other lower urinary tract symptoms (LUTS) * Assessment & Plan Note - Navneet Tellez APRN.DIRECTOR OF COMPENSATION - 11/08/2024 6:56 AM EDT Associated Problem(s): Primary hypertension Managed by PCP and Controlled with meds. Last 14 BP Last 14 Encounter BP Readings: Date: BP: 10/23/2024 129/73 10/10/2024 102/61 09/18/2024 111/58 09/11/2024 114/66 09/04/2024 142/67 08/28/2024 116/63 08/28/2024 110/62 08/21/2024 100/67 08/14/2024 122/72 06/29/2024 118/69 06/26/2024 112/70 04/23/2024 118/78 01/05/2024 120/71 12/29/2023 120/78 * Assessment & Plan Note - Navneet Tellez APRN.CNP - 11/08/2024 6:56 AM EDT Associated Problem(s): Mixed hyperlipidemia Managed by PCP and Controlled with meds. Cholesterol, Total (mg/dL) Date Value 04/19/2024 193 06/11/2020 170 * Assessment & Plan Note - Navneet Tellez APRN.CNP - 11/08/2024 6:56 AM EDT Associated Problem(s): Obesity, Class I, BMI 30-34.9 BMI 32 * Assessment & Plan Note - Navneet Tellez APRN.CNP - 11/08/2024 6:56 AM EDT Associated Problem(s): Preop examination Patient has the following medical conditions which may affect jose francisco-operative course addressed in assessment and plan today [facility] Preop examination- Primary Preoperative examination, unspecified Obesity, Class I, BMI 30-34.9 Obesity, unspecified Mixed hyperlipidemia Primary hypertension Unspecified essential hypertension Abnormal EKG Nonspecific abnormal electrocardiogram (ECG) (EKG) BPH with obstruction/lower urinary tract symptoms Hypertrophy of prostate with urinary obstruction and other lower urinary tract symptoms (LUTS) documented in this encounter [facility] note* Diagnosis Preop examination- Primary Preoperative examination, unspecified Obesity, Class I, BMI 30-34.9 Obesity, unspecified Mixed hyperlipidemia Primary hypertension Unspecified essential hypertension Hospital discharge follow-up- Primary Other follow-up examination S/P TURP Other postprocedural status Aortic dilatation Aortic ectasia, unspecified site Benign prostatic hyperplasia without lower urinary tract symptoms documented in this encounter [facility] note* Diagnosis Preop examination- Primary Preoperative examination, unspecified Obesity, Class I, BMI 30-34.9 Obesity, unspecified Mixed hyperlipidemia Primary hypertension Unspecified essential hypertension Hypotension, unspecified hypotension type- Primary Lightheaded Dizziness and giddiness documented in this encounter [facility] note* Diagnosis Preop examination- Primary Preoperative examination, unspecified Obesity, Class I, BMI 30-34.9 Obesity, unspecified Mixed hyperlipidemia Primary hypertension Unspecified essential hypertension Aortic dilatation Aortic ectasia, unspecified site documented in this encounter [facility] for referral (narrative)* Diagnostic Procedure Only (Routine) - Pending Review Specialty Diagnoses / Procedures Referred By Mayra avalos Referred To Contact US IMAG[facility] Diagnoses Pain in right testicle Procedures US DOPPLER COMPLETE DUP-SCAN ARTL MARINA ABDL/PEL/SCROT&/RPR ORGN COM Dat Jones PA-C [address] [place] [id number] [facility] [place] [address] Referral ID Status Reason Start Date Expiration Date Visits Requested Visits Authorized [id number] Pending Review Auto-Generat ed Referral 3 04/27/2024 1 1 * Diagnostic Procedure Only (Routine) - Pending Review Specialty Diagnoses / Procedures Referred By Mayra avalos Referred To Contact [facility] IMAG[facility] Diagnoses Pain in right testicle Procedures US SCROTUM AND CONTENTS US SCROTUM & CONTENTS Dat Jones PA-C [address] [place] [phone] [place] [id number] Referral ID Status Reason Start Date Expiration Date Visits Requested Visits Authorized [id number] Pending Review Auto-Generat ed Referral 04/27/2024 1 1 [facility] for referral (narrative)* Outpatient Procedure (Routine) - Pending Review Specialty Diagnoses / Procedures Referred By Contac t Referred To Contact [facility] Diagnoses Elevated prostate specific antigen (PSA) Procedures PROSTATE BIOPSY GUKI PROSTATE NEEDLE BIOPSY ANY APPROACH US, TRANSRECTAL URNLS DIP STICK/TABLET RGNT AUTO W/O MICROSCOPY US GUIDANCE NEEDLE PLACEMENT IMG S&I Dat Jones PA-C [address] [place] [address] [place] [address] Referral ID Status Reason Start Date Expiration Date Visits Requested Visits Authorized [id number] Pending Review Auto-Generat ed Referral 03/30/2023 03/30/2024 1 1 [facility] for referral (narrative)* Diagnostic Procedure Only (Routine) - Authorized Specialty Diagnoses / Procedures Referred By Mayra avalos Referred To Contact MOLECULAR & FUNCTIONAL IMAGING Diagnoses Prostate cancer (HCC) Procedures NM BONE WHOLE BODY BONE &/JOINT IMAGING WHOLE BODY Juan Blanton Jr., MD [address] [place] [address] [facility] [address] [place] [address] Referral ID Status Reason Start Date Expiration Date Visits Requested Visits Authorized [id number] Authorized Auto-Generat ed Referral 12/06/2023 01/04/2025 1 1 [facility] for referral (narrative)* Diagnostic Procedure Only (Routine) - Closed Specialty Diagnoses / Procedures Referred By Contac t Referred To Contact MOLECULAR & FUNCTIONAL IMAGING Diagnoses Prostate cancer (HCC) Procedures NM BONE WHOLE BODY BONE &/JOINT IMAGING WHOLE BODY Juan Blanton Jr., MD [address] [place] [address] Molecular & Functional Imaging [address] [place] [address] Referral ID Status Reason Start Date Expiration Date V isits Requested Visits Authorized [id number] Closed Auto-Generate d Referral 12/06/2023 01/04/2025 1 1 [facility] for referral (narrative)* Diagnostic Procedure Only (Urgent) - Authorized Specialty Diagnoses / Procedures Referred By Contac t Referred To Contact MOLECULAR & FUNCTIONAL IMAGING Diagnoses Prostate cancer (HCC) Procedures NM PET/CT PROSTATE WHOLE BODY IMAGING PET IMAGING CT ATTENUATION SKULL BASE MID-THIGH Vince Huffman MD [address] [place] [address] Molecular & Functional Imaging [address] [place] [address] Referral ID Status Reason Start Date Expiration Date Visits Requested Visits Authorized [id number] Authorized Auto-Generat ed Referral 06/29/2024 07/29/2025 1 1 [facility] for referral (narrative)No reason for referral information [facility]WW[facility] Work Phone: Reason for visit Narrative* Diagnostic Procedure Only (Routine) - Closed Specialty Diagnoses / Procedures Referred By Contac t Referred To Contact MOLECULAR & FUNCTIONAL IMAGING Diagnoses Prostate cancer (HCC) Procedures NM BONE WHOLE BODY BONE &/JOINT IMAGING WHOLE BODY Juan Blanton Jr., MD [address] [place] [address] Molecular & Functional Imaging [address] [place] [address] Referral ID Status Reason Start Date Expiration Date V isits Requested Visits Authorized [id number] Closed Auto-Generate d Referral 12/06/2023 01/04/2025 1 1 [facility] for visit Narrative* Diagnostic Procedure Only (Urgent) - Closed Specialty Diagnoses / Procedures Referred By Contac t Referred To Contact MOLECULAR & FUNCTIONAL IMAGING Diagnoses Prostate cancer (HCC) Procedures NM PET/CT PROSTATE WHOLE BODY IMAGING PET IMAGING CT ATTENUATION SKULL BASE MID-THIGH Vince Huffman MD [address] [facility] [place] [address] Phone: tel: fax: Molecular Imaging [address] [place], [place] [id number] Phone: tel: Referral ID Status Reason Start Date Expiration Date V isits Requested Visits Authorized [id number] Closed Auto-Generate d Referral 06/29/2024 07/29/2025 1 1 [facility] for visit Narrative* Diagnostic Procedure Only (Urgent) - Closed Specialty Diagnoses / Procedures Referred By Contac t Referred To Contact MOLECULAR & FUNCTIONAL IMAGING Diagnoses Prostate cancer (HCC) Procedures NM PET/CT PROSTATE WHOLE BODY IMAGING PET IMAGING CT ATTENUATION SKULL BASE MID-THIGH Vince Huffman MD [address] [place] [address] Phone: tel: fax: Molecular Imaging [address] [place], [place] [phone] Phone: tel: Referral ID Status Reason Start Date Expiration Date V isits Requested Visits Authorized [id number] Closed Auto-Generate d Referral 06/29/2024 07/29/2025 1 1 [facility] for visit Narrative* Diagnostic Procedure Only (Routine) - Closed Specialty Diagnoses / Procedures Referred By Contac t Referred To Contact XR IMAGING Diagnoses Other osteoporosis, unspecified pathological fracture presence Procedures DXA-AXIAL SKELETON DXA BONE DENSITY STUDY / SITES AXIAL Ailin Henry MD [address] [place] [address] Phone: tel: fax: [place] [id number] Referral ID Status Reason Start Date Expiration Date V isits Requested Visits Authorized [id number] Closed Auto-Generate d Referral 06/27/2024 07/27/2025 1 1 [facility] for visit Narrative* Outpatient Procedure (Routine) - Closed Specialty Diagnoses / Procedures Referred By Contac t Referred To Contact [facility] Diagnoses Abnormal EKG Procedures ECHO ECHO TTHRC R-T 2D W/WOM-MODE COMPL SPEC&COLR D Ailin Pierson MD [address] [place] [address] Phone: tel: fax: [facility] [place] [address] [place] [address] Referral ID Status Reason Start Date Expiration Date V isits Requested Visits Authorized [id number] Closed Auto-Generate d Referral 10/10/2024 10/10/2025 1 1 [facility] Summary Purpose Family History No Family History Records FoundNo Family History Records FoundNo Family History Records FoundNo Family History Records FoundNo Family History Records FoundNo Family History Records FoundNo Family History Records Found Advance Directives No Advanced Directives Records Found Advance Directive Response Recorded Date/ Time Living Will Yes May 22 7:33pm Do you have a Healthcare Pow er of Skiver Machine Operator? Yes May 22, 2024 7:33pm Name of Medical Power of Skiver Machine Operator arnoldo May 22, 2024 7:33pm Living Will No May 09 11:39am Do you have a Healthcare Pow er of Skiver Machine Operator? No May 09, 2024 11:39am Living Will Yes June 19 1:35pm Do you have a Healthcare Pow er of Skiver Machine Operator? Yes June 19, 2024 1:35pm Name of Medical Power of Skiver Machine Operator Arnoldo Short - jana on June 19, 2024 1:35pm Living Will Yes August 29, 2024 2:32pm Do you have a Healthcare Pow er of Skiver Machine Operator? Yes August 29, 2024 2:32pm Name of Medical Power of Skiver Machine Operator ARNOLDO HAN August 29, 2024 2:32pm Documents on File Type Date Recorded Patient Weight Reducing Technician Expl anation Advance Directive(s) 11/28/2024 8:17 AM Documents on File Type Date Recorded Patient Weight Reducing Technician Expl anation Advance Directive(s) 11/28/2024 8:17 AM Date Activated Date Inactivated Comments 12/24/2024 10:35 PM Question Answer Comments Full Code Order Discussed With: Patient Date Activated Date Inactivated Comments 12/24/2024 10:35 PM 12/27/2024 7:57 PM Reason for Referral Specialty Diagnoses / Procedures Referred By Contac t Referred To Contact Urology Diagnoses Elevated PSA Procedures CONSULT TO UROLOGY OFFICE/OUTPATIENT NEW HIGH MDM 60-74 MINUTES Kayla Betancourt APRN.DIRECTOR OF COMPENSATION [address] [facility] [place] [address] Referral ID Status Reason Start Date Expiration Date Visits Requested Visits Authorized [id number] Authorized PCP Requested Referral 03/25/2023 1 1 Specialty Diagnoses / Procedures Referred By Contac t Referred To Contact MR IMAGING Diagnoses Elevated prostate specific antigen (PSA) Encounter for observation for other suspected diseases and conditions ruled out Procedures MRI 3D POST PROCESSING 3D RENDERING W/INTERP&POSTPROC DIFF WORK STATION Juan Blanton Jr., MD [address] [place] [address] Mr Imaging [facility] Referral ID Status Reason Start Date Expiration Date Visits Requested Visits Authorized [id number] Authorized Auto-Generat ed Referral 2023 08/17/2024 1 1 Specialty Diagnoses / Procedures Referred By Contac t Referred To Contact MR IMAGING Diagnoses Encounter for observation for other suspected diseases and conditions ruled out Procedures MRI PROSTATE WO/W IVCON MRI PELVIS W/O & W/CONTRAST MATERIAL Juan Blanton Jr., MD [address] [place] [address] Mr Imaging [facility] Referral ID Status Reason Start Date Expiration Date Visits Requested Visits Authorized [id number] Authorized Auto-Generat ed Referral 2023 08/17/2024 1 1 Specialty Diagnoses / Procedures Referred By Contac t Referred To Contact Radiation Oncology Diagnoses Prostate cancer (HCC) Procedures RAD/ONC CONSULT OFFICE/OUTPATIENT NEW HIGH MDM 60 MINUTES Juan Blanton Jr., MD [address] [place] [address] Referral ID Status Reason Start Date Expiration Date Visits Requested Visits Authorized [id number] Authorized PCP Requested Referral 01/03/2024 01/02/2025 1 1 Specialty Diagnoses / Procedures Referred By Contac t Referred To Contact Diagnoses Insomnia, unspecified type Ailin Pireson MD [address] [place] [address] Referral ID Status Reason Start Date Expiration Date Visits Re quested Visits Authorized [id number] Closed 1 1 Specialty Diagnoses / Procedures Referred By Contac t Referred To Contact Urology Diagnoses Prostate cancer (HCC) Unable to void Procedures CONSULT TO UROLOGY OFFICE/OUTPATIENT NEW HIGH MDM 60 MINUTES Kayla Betancourt APRN.DIRECTOR OF COMPENSATION [address] [place] [phone] Referral ID Status Reason Start Date Expiration Date Visits Requested Visits Authorized [id number] Authorized PCP Requested Referral 4 05/14/2025 1 1 Specialty Diagnoses / Procedures Referred By Contac t Referred To Contact [facility] Diagnoses Fracture of vertebra due to osteoporosis, sequela Procedures CONSULT TO PAIN MGT OFFICE/OUTPATIENT NEW HIGH MDM 60 MINUTES Ailin Pierson MD [address] [place] [phone] [facility] [place] [address] [place] [address] Referral ID Status Reason Start Date Expiration Date V isits Requested Visits Authorized [id number] Closed PCP Requested Referral 06/27/2024 09/25/2024 1 1 Specialty Diagnoses / Procedures Referred By Contac t Referred To Contact XR IMAGING Diagnoses Other osteoporosis, unspecified pathological fracture presence Procedures DXA-AXIAL SKELETON DXA BONE DENSITY STUDY 1/> SITES AXIAL SKEL Ailin Pierson MD [facility] [place] [address] [place] [address] Referral ID Status Reason Start Date Expiration Date Visits Requested Visits Authorized [id number] New Request Auto-Generat ed Referral 06/27/2024 07/27/2025 1 1 Specialty Diagnoses / Procedures Referred By Contac t Referred To Contact Radiation Oncology Diagnoses Prostate cancer (HCC) Procedures RAD/ONC CONSULT OFFICE/OUTPATIENT NEW HIGH MDM 60 MINUTES Ailin Pierson MD [address] [place] [address] Referral ID Status Reason Start Date Expiration Date Visits Requested Visits Authorized [id number] Authorized PCP Requested Referral 06/26/2024 06/26/2025 1 1 Specialty Diagnoses / Procedures Referred By Mayra avalos Referred To Contact Urology Diagnoses Prostate cancer (HCC) Procedures CONSULT TO UROLOGY OFFICE/OUTPATIENT [facility] 60 MINUTES Ailin Pierson MD [address] [place] [address] Referral ID Status Reason Start Date Expiration Date Visits Requested Visits Authorized [id number] Authorized PCP Requested Referral 06/26/2024 06/26/2025 1 1 Medications Administered Section Inactive Administered Medications - up to 3 most recent administrations Medication Order MAR Action Action Date Dose Rate Site gentamicin 40 mg/mL 160 mg injection 160 mg, INTRAMUSCULAR, ONCE, 1 dose, On Tue04/19/23 at 1100, Antimicrobial indication: Empiric Given 04/19/2023 10:25 AM EST 160 mg Othe r levoFLOXacin 750 mg tab(s) (LEVAQUIN) 750 mg, ORAL, ONCE, 1 dose, On Tue04/19/23 at 1100, Administer 2 hours before or 2 hours after medications containing calcium, magnesium, aluminum, iron, or zinc (including antacids and sucralfate), and sevelamer. May be administered without regard to meals. Tube feedings should be held 1 hour before and 1 hour after administration., Antimicrobial indication: Empiric Given 04/19/2023 10:15 AM EST 750 mg Oral Chief Complaint and Reason for Visit Chief Complaint Admit Date RLQ abd pain May 09, 2024 10:30am FALL May 22, 2024 5:51pm FALL May 22, 2024 6:37pm FALL May 23, 2024 2:38pm FALL May 24, 2024 8:21am FALL May 24, 2024 2:45pm DEBILITY DUE TO MECHANICAL FALL June 19, 2024 11:44am DEBILITY DUE TO MECHANICAL FALL June 20, 2024 1:00pm DEBILITY DUE TO MECHANICAL FALL June 21, 2024 2:23pm gu August 29, 2024 12:3 9pm Reason for Visit Admit Date Acute on chronic urinary retention Decem 2023 5:51pm Acute UTI May 22, 2024 5:51pm Closed fracture of right elbow May 22, 2024 5:51pm Fall May 22, 2024 5:51pm Fever May 22, 2024 5:51pm Leukocytosis May 22, 2024 5:51pm Rhabdomyolysis May 22, 2024 5:51pm Right elbow pain May 22, 2024 5:51pm Weakness May 22, 2024 5:51pm Contusion of left flank June 19 11:44am Fall June 19, 2024 1 1:44am Fracture of transverse process of lumbar vertebra June 19, 2024 11:44am Fracture, ribs June 19, 2024 1 1:44am Additional Source Comments (unrecognized sect ion and content) No Status Records FoundNo Status Records FoundNo Status Records FoundNo Status Records FoundNo Status Records FoundNo Status Records FoundNo Status Records Found INFORMATION SOURCE (unrecogn ized section and content) DATE CREATED AUTHOR 11/18/2017 [facility] DATE CREATED AUTHOR AUTHOR'S ORGANIZ ATION 12/09/2017 [facility] DATE CREATED AUTHOR AUTHOR'S ORGANIZ ATION 07/20/2024 [facility] DATE CREATED AUTHOR AUTHOR'S ORGANIZ ATION 09/05/2024 [facility] DATE CREATED AUTHOR AUTHOR'S ORGANIZ ATION 12/30/2024 [facility] DATE CREATED AUTHOR AUTHOR'S ORGANIZ ATION 12/30/2024 [facility] DATE CREATED AUTHOR AUTHOR'S ORGANIZ ATION 01/04/2025 [facility] Source Comments (unrecognize d section and content) In the event this informatio n is protected by the Federal Confidentiality of Alcohol and Drug Abuse Patient Records regulations: The Federal rules restrict any use of the information to criminally investigate or prosecute any alcohol or drug abuse patient.[facility] the event this information is protected by the Federal Confidentiality of Alcohol and Drug Abuse Patient Records regulations: The Federal rules restrict any use of the information to criminally investigate or prosecute any alcohol or drug abuse patient.[facility] the event this information is protected by the Federal Confidentiality of Alcohol and Drug Abuse Patient Records regulations: The Federal rules restrict any use of the information to criminally investigate or prosecute any alcohol or drug abuse patient.[facility] the event this information is protected by the Federal Confidentiality of Alcohol and Drug Abuse Patient Records regulations: The Federal rules restrict any use of the information to criminally investigate or prosecute any alcohol or drug abuse patient.[facility] the event this information is protected by the Federal Confidentiality of Alcohol and Drug Abuse Patient Records regulations: The Federal rules restrict any use of the information to criminally investigate or prosecute any alcohol or drug abuse patient.[facility] the event this information is protected by the Federal Confidentiality of Alcohol and Drug Abuse Patient Records regulations: The Federal rules restrict any use of the information to criminally investigate or prosecute any alcohol or drug abuse patient.[facility] the event this information is protected by the Federal Confidentiality of Alcohol and Drug Abuse Patient Records regulations: The Federal rules restrict any use of the information to criminally investigate or prosecute any alcohol or drug abuse patient.[facility] Hospital[facility] the event this information is protected by the Federal Confidentiality of Alcohol and Drug Abuse Patient Records regulations: The Federal rules restrict any use of the information to criminally investigate or prosecute any alcohol or drug abuse patient.[facility] Hospital[facility] the event this information is protected by the Federal Confidentiality of Alcohol and Drug Abuse Patient Records regulations: The Federal rules restrict any use of the information to criminally investigate or prosecute any alcohol or drug abuse patient.[facility] the event this information is protected by the Federal Confidentiality of Alcohol and Drug Abuse Patient Records regulations: The Federal rules restrict any use of the information to criminally investigate or prosecute any alcohol or drug abuse patient.[facility] Hospital[facility] the event this information is protected by the Federal Confidentiality of Alcohol and Drug Abuse Patient Records regulations: The Federal rules restrict any use of the information to criminally investigate or prosecute any alcohol or drug abuse patient.[facility] Hospital[facility] the event this information is protected by the Federal Confidentiality of Alcohol and Drug Abuse Patient Records regulations: The Federal rules restrict any use of the information to criminally investigate or prosecute any alcohol or drug abuse patient.[facility]In the event this information is protected by the Federal Confidentiality of Alcohol and Drug Abuse Patient Records regulations: The Federal rules restrict any use of the information to criminally investigate or prosecute any alcohol or drug abuse patient.[facility] HospitalIn the event this information is protected by the Federal Confidentiality of Alcohol and Drug Abuse Patient Records regulations: The Federal rules restrict any use of the information to criminally investigate or prosecute any alcohol or drug abuse patient.[facility]In the event this information is protected by the Federal Confidentiality of Alcohol and Drug Abuse Patient Records regulations: The Federal rules restrict any use of the information to criminally investigate or prosecute any alcohol or drug abuse patient.[facility]In the event this information is protected by the Federal Confidentiality of Alcohol and Drug Abuse Patient Records regulations: The Federal rules restrict any use of the information to criminally investigate or prosecute any alcohol or drug abuse patient.[facility] HospitalIn the event this information is protected by the Federal Confidentiality of Alcohol and Drug Abuse Patient Records regulations: The Federal rules restrict any use of the information to criminally investigate or prosecute any alcohol or drug abuse patient.[facility] HospitalIn the event this information is protected by the Federal Confidentiality of Alcohol and Drug Abuse Patient Records regulations: The Federal rules restrict any use of the information to criminally investigate or prosecute any alcohol or drug abuse patient.[facility] HospitalIn the event this information is protected by the Federal Confidentiality of Alcohol and Drug Abuse Patient Records regulations: The Federal rules restrict any use of the information to criminally investigate or prosecute any alcohol or drug abuse patient.[facility] HospitalIn the event this information is protected by the Federal Confidentiality of Alcohol and Drug Abuse Patient Records regulations: The Federal rules restrict any use of the information to criminally investigate or prosecute any alcohol or drug abuse patient.[facility] HospitalIn the event this information is protected by the Federal Confidentiality of Alcohol and Drug Abuse Patient Records regulations: The Federal rules restrict any use of the information to criminally investigate or prosecute any alcohol or drug abuse patient.[facility] HospitalIn the event this information is protected by the Federal Confidentiality of Alcohol and Drug Abuse Patient Records regulations: The Federal rules restrict any use of the information to criminally investigate or prosecute any alcohol or drug abuse patient.[facility]In the event this information is protected by the Federal Confidentiality of Alcohol and Drug Abuse Patient Records regulations: The Federal rules restrict any use of the information to criminally investigate or prosecute any alcohol or drug abuse patient.[facility] HospitalIn the event this information is protected by the Federal Confidentiality of Alcohol and Drug Abuse Patient Records regulations: The Federal rules restrict any use of the information to criminally investigate or prosecute any alcohol or drug abuse patient.[facility] HospitalIn the event this information is protected by the Federal Confidentiality of Alcohol and Drug Abuse Patient Records regulations: The Federal rules restrict any use of the information to criminally investigate or prosecute any alcohol or drug abuse patient.[facility] HospitalIn the event this information is protected by the Federal Confidentiality of Alcohol and Drug Abuse Patient Records regulations: The Federal rules restrict any use of the information to criminally investigate or prosecute any alcohol or drug abuse patient.[facility] HospitalIn the event this information is protected by the Federal Confidentiality of Alcohol and Drug Abuse Patient Records regulations: The Federal rules restrict any use of the information to criminally investigate or prosecute any alcohol or drug abuse patient.[facility] HospitalIn the event this information is protected by the Federal Confidentiality of Alcohol and Drug Abuse Patient Records regulations: The Federal rules restrict any use of the information to criminally investigate or prosecute any alcohol or drug abuse patient.[facility] HospitalIn the event this information is protected by the Federal Confidentiality of Alcohol and Drug Abuse Patient Records regulations: The Federal rules restrict any use of the information to criminally investigate or prosecute any alcohol or drug abuse patient.[facility] HospitalIn the event this information is protected by the Federal Confidentiality of Alcohol and Drug Abuse Patient Records regulations: The Federal rules restrict any use of the information to criminally investigate or prosecute any alcohol or drug abuse patient.[facility] HospitalIn the event this information is protected by the Federal Confidentiality of Alcohol and Drug Abuse Patient Records regulations: The Federal rules restrict any use of the information to criminally investigate or prosecute any alcohol or drug abuse patient.[facility] HospitalIn the event this information is protected by the Federal Confidentiality of Alcohol and Drug Abuse Patient Records regulations: The Federal rules restrict any use of the information to criminally investigate or prosecute any alcohol or drug abuse patient.[facility] HospitalIn the event this information is protected by the Federal Confidentiality of Alcohol and Drug Abuse Patient Records regulations: The Federal rules restrict any use of the information to criminally investigate or prosecute any alcohol or drug abuse patient.[facility] HospitalIn the event this information is protected by the Federal Confidentiality of Alcohol and Drug Abuse Patient Records regulations: The Federal rules restrict any use of the information to criminally investigate or prosecute any alcohol or drug abuse patient.[facility] HospitalIn the event this information is protected by the Federal Confidentiality of Alcohol and Drug Abuse Patient Records regulations: The Federal rules restrict any use of the information to criminally investigate or prosecute any alcohol or drug abuse patient.[facility] HospitalIn the event this information is protected by the Federal Confidentiality of Alcohol and Drug Abuse Patient Records regulations: The Federal rules restrict any use of the information to criminally investigate or prosecute any alcohol or drug abuse patient.[facility] HospitalIn the event this information is protected by the Federal Confidentiality of Alcohol and Drug Abuse Patient Records regulations: The Federal rules restrict any use of the information to criminally investigate or prosecute any alcohol or drug abuse patient.[facility] HospitalIn the event this information is protected by the Federal Confidentiality of Alcohol and Drug Abuse Patient Records regulations: The Federal rules restrict any use of the information to criminally investigate or prosecute any alcohol or drug abuse patient.[facility] HospitalIn the event this information is protected by the Federal Confidentiality of Alcohol and Drug Abuse Patient Records regulations: The Federal rules restrict any use of the information to criminally investigate or prosecute any alcohol or drug abuse patient.[facility] HospitalIn the event this information is protected by the Federal Confidentiality of Alcohol and Drug Abuse Patient Records regulations: The Federal rules restrict any use of the information to criminally investigate or prosecute any alcohol or drug abuse patient.[facility] HospitalIn the event this information is protected by the Federal Confidentiality of Alcohol and Drug Abuse Patient Records regulations: The Federal rules restrict any use of the information to criminally investigate or prosecute any alcohol or drug abuse patient.[facility] HospitalIn the event this information is protected by the Federal Confidentiality of Alcohol and Drug Abuse Patient Records regulations: The Federal rules restrict any use of the information to criminally investigate or prosecute any alcohol or drug abuse patient.[facility] HospitalIn the event this information is protected by the Federal Confidentiality of Alcohol and Drug Abuse Patient Records regulations: The Federal rules restrict any use of the information to criminally investigate or prosecute any alcohol or drug abuse patient.[facility] HospitalIn the event this information is protected by the Federal Confidentiality of Alcohol and Drug Abuse Patient Records regulations: The Federal rules restrict any use of the information to criminally investigate or prosecute any alcohol or drug abuse patient.[facility] HospitalIn the event this information is protected by the Federal Confidentiality of Alcohol and Drug Abuse Patient Records regulations: The Federal rules restrict any use of the information to criminally investigate or prosecute any alcohol or drug abuse patient.[facility] HospitalIn the event this information is protected by the Federal Confidentiality of Alcohol and Drug Abuse Patient Records regulations: The Federal rules restrict any use of the information to criminally investigate or prosecute any alcohol or drug abuse patient.[facility] HospitalIn the event this information is protected by the Federal Confidentiality of Alcohol and Drug Abuse Patient Records regulations: The Federal rules restrict any use of the information to criminally investigate or prosecute any alcohol or drug abuse patient.[facility] HospitalIn the event this information is protected by the Federal Confidentiality of Alcohol and Drug Abuse Patient Records regulations: The Federal rules restrict any use of the information to criminally investigate or prosecute any alcohol or drug abuse patient.[facility] HospitalIn the event this information is protected by the Federal Confidentiality of Alcohol and Drug Abuse Patient Records regulations: The Federal rules restrict any use of the information to criminally investigate or prosecute any alcohol or drug abuse patient.[facility] HospitalIn the event this information is protected by the Federal Confidentiality of Alcohol and Drug Abuse Patient Records regulations: The Federal rules restrict any use of the information to criminally investigate or prosecute any alcohol or drug abuse patient.[facility] HospitalIn the event this information is protected by the Federal Confidentiality of Alcohol and Drug Abuse Patient Records regulations: The Federal rules restrict any use of the information to criminally investigate or prosecute any alcohol or drug abuse patient.[facility] HospitalIn the event this information is protected by the Federal Confidentiality of Alcohol and Drug Abuse Patient Records regulations: The Federal rules restrict any use of the information to criminally investigate or prosecute any alcohol or drug abuse patient.[facility] HospitalIn the event this information is protected by the Federal Confidentiality of Alcohol and Drug Abuse Patient Records regulations: The Federal rules restrict any use of the information to criminally investigate or prosecute any alcohol or drug abuse patient.[facility] HospitalIn the event this information is protected by the Federal Confidentiality of Alcohol and Drug Abuse Patient Records regulations: The Federal rules restrict any use of the information to criminally investigate or prosecute any alcohol or drug abuse patient.[facility] HospitalIn the event this information is protected by the Federal Confidentiality of Alcohol and Drug Abuse Patient Records regulations: The Federal rules restrict any use of the information to criminally investigate or prosecute any alcohol or drug abuse patient.[facility] HospitalIn the event this information is protected by the Federal Confidentiality of Alcohol and Drug Abuse Patient Records regulations: The Federal rules restrict any use of the information to criminally investigate or prosecute any alcohol or drug abuse patient.[facility] HospitalIn the event this information is protected by the Federal Confidentiality of Alcohol and Drug Abuse Patient Records regulations: The Federal rules restrict any use of the information to criminally investigate or prosecute any alcohol or drug abuse patient.[facility] HospitalIn the event this information is protected by the Federal Confidentiality of Alcohol and Drug Abuse Patient Records regulations: The Federal rules restrict any use of the information to criminally investigate or prosecute any alcohol or drug abuse patient.[facility] HospitalIn the event this information is protected by the Federal Confidentiality of Alcohol and Drug Abuse Patient Records regulations: The Federal rules restrict any use of the information to criminally investigate or prosecute any alcohol or drug abuse patient.[facility] HospitalIn the event this information is protected by the Federal Confidentiality of Alcohol and Drug Abuse Patient Records regulations: The Federal rules restrict any use of the information to criminally investigate or prosecute any alcohol or drug abuse patient.[facility] HospitalIn the event this information is protected by the Federal Confidentiality of Alcohol and Drug Abuse Patient Records regulations: The Federal rules restrict any use of the information to criminally investigate or prosecute any alcohol or drug abuse patient.[facility] HospitalIn the event this information is protected by the Federal Confidentiality of Alcohol and Drug Abuse Patient Records regulations: The Federal rules restrict any use of the information to criminally investigate or prosecute any alcohol or drug abuse patient.[facility] HospitalIn the event this information is protected by the Federal Confidentiality of Alcohol and Drug Abuse Patient Records regulations: The Federal rules restrict any use of the information to criminally investigate or prosecute any alcohol or drug abuse patient.[facility] HospitalIn the event this information is protected by the Federal Confidentiality of Alcohol and Drug Abuse Patient Records regulations: The Federal rules restrict any use of the information to criminally investigate or prosecute any alcohol or drug abuse patient.[facility] HospitalIn the event this information is protected by the Federal Confidentiality of Alcohol and Drug Abuse Patient Records regulations: The Federal rules restrict any use of the information to criminally investigate or prosecute any alcohol or drug abuse patient.[facility] HospitalIn the event this information is protected by the Federal Confidentiality of Alcohol and Drug Abuse Patient Records regulations: The Federal rules restrict any use of the information to criminally investigate or prosecute any alcohol or drug abuse patient.[facility] HospitalIn the event this information is protected by the Federal Confidentiality of Alcohol and Drug Abuse Patient Records regulations: The Federal rules restrict any use of the information to criminally investigate or prosecute any alcohol or drug abuse patient.[facility] HospitalIn the event this information is protected by the Federal Confidentiality of Alcohol and Drug Abuse Patient Records regulations: The Federal rules restrict any use of the information to criminally investigate or prosecute any alcohol or drug abuse patient.[facility] HospitalIn the event this information is protected by the Federal Confidentiality of Alcohol and Drug Abuse Patient Records regulations: The Federal rules restrict any use of the information to criminally investigate or prosecute any alcohol or drug abuse patient.[facility] HospitalIn the event this information is protected by the Federal Confidentiality of Alcohol and Drug Abuse Patient Records regulations: The Federal rules restrict any use of the information to criminally investigate or prosecute any alcohol or drug abuse patient.[facility] HospitalIn the event this information is protected by the Federal Confidentiality of Alcohol and Drug Abuse Patient Records regulations: The Federal rules restrict any use of the information to criminally investigate or prosecute any alcohol or drug abuse patient.[facility] HospitalIn the event this information is protected by the Federal Confidentiality of Alcohol and Drug Abuse Patient Records regulations: The Federal rules restrict any use of the information to criminally investigate or prosecute any alcohol or drug abuse patient.[facility] HospitalIn the event this information is protected by the Federal Confidentiality of Alcohol and Drug Abuse Patient Records regulations: The Federal rules restrict any use of the information to criminally investigate or prosecute any alcohol or drug abuse patient.[facility] HospitalIn the event this information is protected by the Federal Confidentiality of Alcohol and Drug Abuse Patient Records regulations: The Federal rules restrict any use of the information to criminally investigate or prosecute any alcohol or drug abuse patient.[facility] HospitalIn the event this information is protected by the Federal Confidentiality of Alcohol and Drug Abuse Patient Records regulations: The Federal rules restrict any use of the information to criminally investigate or prosecute any alcohol or drug abuse patient.[facility] HospitalIn the event this information is protected by the Federal Confidentiality of Alcohol and Drug Abuse Patient Records regulations: The Federal rules restrict any use of the information to criminally investigate or prosecute any alcohol or drug abuse patient.[facility] HospitalIn the event this information is protected by the Federal Confidentiality of Alcohol and Drug Abuse Patient Records regulations: The Federal rules restrict any use of the information to criminally investigate or prosecute any alcohol or drug abuse patient.[facility] HospitalIn the event this information is protected by the Federal Confidentiality of Alcohol and Drug Abuse Patient Records regulations: The Federal rules restrict any use of the information to criminally investigate or prosecute any alcohol or drug abuse patient.[facility] HospitalIn the event this information is protected by the Federal Confidentiality of Alcohol and Drug Abuse Patient Records regulations: The Federal rules restrict any use of the information to criminally investigate or prosecute any alcohol or drug abuse patient.[facility] HospitalIn the event this information is protected by the Federal Confidentiality of Alcohol and Drug Abuse Patient Records regulations: The Federal rules restrict any use of the information to criminally investigate or prosecute any alcohol or drug abuse patient.[facility] HospitalIn the event this information is protected by the Federal Confidentiality of Alcohol and Drug Abuse Patient Records regulations: The Federal rules restrict any use of the information to criminally investigate or prosecute any alcohol or drug abuse patient.[facility] HospitalIn the event this information is protected by the Federal Confidentiality of Alcohol and Drug Abuse Patient Records regulations: The Federal rules restrict any use of the information to criminally investigate or prosecute any alcohol or drug abuse patient.[facility] HospitalIn the event this information is protected by the Federal Confidentiality of Alcohol and Drug Abuse Patient Records regulations: The Federal rules restrict any use of the information to criminally investigate or prosecute any alcohol or drug abuse patient.[facility]In the event this information is protected by the Federal Confidentiality of Alcohol and Drug Abuse Patient Records regulations: The Federal rules restrict any use of the information to criminally investigate or prosecute any alcohol or drug abuse patient.[facility] HospitalIn the event this information is protected by the Federal Confidentiality of Alcohol and Drug Abuse Patient Records regulations: The Federal rules restrict any use of the information to criminally investigate or prosecute any alcohol or drug abuse patient.[facility] HospitalIn the event this information is protected by the Federal Confidentiality of Alcohol and Drug Abuse Patient Records regulations: The Federal rules restrict any use of the information to criminally investigate or prosecute any alcohol or drug abuse patient.[facility] HospitalIn the event this information is protected by the Federal Confidentiality of Alcohol and Drug Abuse Patient Records regulations: The Federal rules restrict any use of the information to criminally investigate or prosecute any alcohol or drug abuse patient.[facility] HospitalIn the event this information is protected by the Federal Confidentiality of Alcohol and Drug Abuse Patient Records regulations: The Federal rules restrict any use of the information to criminally investigate or prosecute any alcohol or drug abuse patient.[facility] HospitalIn the event this information is protected by the Federal Confidentiality of Alcohol and Drug Abuse Patient Records regulations: The Federal rules restrict any use of the information to criminally investigate or prosecute any alcohol or drug abuse patient.[facility] HospitalIn the event this information is protected by the Federal Confidentiality of Alcohol and Drug Abuse Patient Records regulations: The Federal rules restrict any use of the information to criminally investigate or prosecute any alcohol or drug abuse patient.[facility]In the event this information is protected by the Federal Confidentiality of Alcohol and Drug Abuse Patient Records regulations: The Federal rules restrict any use of the information to criminally investigate or prosecute any alcohol or drug abuse patient.[facility]In the event this information is protected by the Federal Confidentiality of Alcohol and Drug Abuse Patient Records regulations: The Federal rules restrict any use of the information to criminally investigate or prosecute any alcohol or drug abuse patient.[facility] Reason for Visit (unrecogniz ed section and content) Reason Onset Date Comments Refill Request 03/09/2022 Reason Comments Lab Orders Reason Comments Yearly Exam Yearly medication fo llow up Reason Comments Nurse Visit Reason Onset Date Comments Population Health Navigation Outreach 12/30/2022 [facility] [place] [facility] Reason Comments Orders Reason Onset Date Comments Refill Request 03/24/2023 Reason Comments Follow Up Benign Prostatic Hypertrophy Elevated PSA Reason Comments Results Reason Comments Orders Results Reason Comments Prostate Biopsy Instructions Reason Comments Elevated PSA Reason Comments Patient Question Reason Comments Patient Question Regarding prostate Reason Comments Follow Up Elevated PSA Specialty Diagnoses / Procedures Referred By Contac t Referred To Contact MR IMAGING Diagnoses Encounter for observation for other suspected diseases and conditions ruled out Procedures MRI PROSTATE WO/W IVCON MRI PELVIS W/O & W/CONTRAST MATERIAL Juan Blanton Jr., MD [address] [place] [address] [place] [address] Referral ID Status Reason Start Date Expiration Date V isits Requested Visits Authorized [id number] Closed Auto-Generate d Referral 2023 08/17/2024 1 1 Reason Comments Recheck Follow up prostrate Reason Comments Elevated PSA Reason Comments Recheck 3 month follow up Reason Comments Follow Up Prostate Cancer Reason Comments Consult Specialty Diagnoses / Procedures Referred By Contac t Referred To Contact Radiation Oncology Diagnoses Prostate cancer (HCC) Procedures RAD/ONC CONSULT OFFICE/OUTPATIENT NEW HIGH MDM 60 MINUTES Juan Blanton Jr., MD [address] [place] [address] Referral ID Status Reason Start Date Expiration Date V isits Requested Visits Authorized [id number] Closed PCP Requested Referral 01/03/2024 01/02/2025 1 1 Reason Comments Patient Update Re:radiation treatme nt Reason Onset Date Comments Refill Request 04/16/2024 Reason Comments Medicare Wellness Exam Reason Comments Insurance Authorization Reason Comments Patient Update Patient Question Reason Comments ER F/U Urinary Retention Reason Comments CIC at home Reason Comments Urinary Retention Reason Comments New Patient Reason Comments Hospital F/U Reason Comments Appointment Urology Augie Reason Comments Established Patient Reason Comments Radiology NM Reason Comments Appointment Reason Comments Patient Education Reason Onset Date Comments Simulation Request Form 08/01/2024 Reason Comments Radiotherapy On-treatment Visit Reason Comments Radiotherapy On-treatment Visit Fx # 9 Reason Onset Date Comments Appointment 08/22/2024 Reason Comments F/U 3 Month Reason Comments Results UTI Reason Comments Established Patient Follow up/PSA,prosta te cancer Reason Comments Recheck Results of bone dens ity Reason Comments Mahoney Catheter Change Reason Comments Opened In Error Reason Onset Date Comments Transition Of Care 11/29/2024 Inpatient nichole ch in Reason Comments ER F/U AKGH 11/28/24-11/29/24 T URP surgery & heart rate irregularity Reason Onset Date Comments Escalation of Care 12/17/[address] Specialty Diagnoses / Procedures Referred By Contac t Referred To Contact CT IMAGING Diagnoses Aortic dilatation Procedures CT CHEST WO IVCON DIAGNOSTIC COMPUTED TOMOGRAPHY THORAX W/O Ailin Xiao MD [address] [place] [address] Phone: tel: fax: [place] [phone] Referral ID Status Reason Start Date Expiration Date V isits Requested Visits Authorized [id number] Closed Auto-Generate d Referral 12/11/2024 01/10/2026 1 1 Reason Comments Patient Update Reason Onset Date Comments Transition Of Care 12/26/2024 TCM Inpatient reach in Care Teams (unrecognized sec tion and content) Agricultural Technician Relationship Specialty Start Date End Date Ailin Pierson MD [address] [place], [place] [address] PCP - General Internal Medicine 02/21/16 Agricultural Technician Relationship Specialty Start Date End Date Ailin Pierson MD [address] [place] [address] PCP - General Internal Medicine 02/21/16 Agricultural Technician Relationship Specialty Start Date End Date Ailin Pierson MD [address] [place] [address] PCP - General Internal Medicine 02/21/16 Agricultural Technician Relationship Specialty Start Date End Date Ailin Pierson MD [address] [place], [place] [address] PCP - General Internal Medicine 02/21/16 Agricultural Technician Relationship Specialty Start Date End Date Ailin Pierson MD [address] [place] [address] PCP - General Internal Medicine 02/21/16 Agricultural Technician Relationship Specialty Start Date End Date Ailin Pierson MD [address] [place], [place] [id number] PCP - General Internal Medicine 02/21/16 Agricultural Technician Relationship Specialty Start Date End Date Ailin Pierson MD [address] [place], [place] [address] PCP - General Internal Medicine 02/21/16 Agricultural Technician Relationship Specialty Start Date End Date Ailin Piersno MD [address] [place] [address] PCP - General Internal Medicine 02/21/16 Agricultural Technician Relationship Specialty Start Date End Date Ailin Pierson MD [address] [place] [address] PCP - General Internal Medicine 02/21/16 Agricultural Technician Relationship Specialty Start Date End Date Ailin Pierson MD [address] [place] [address] PCP - General Internal Medicine 02/21/16 Agricultural Technician Relationship Specialty Start Date End Date Ailin Pierson MD [address] [place] [address] PCP - General Internal Medicine 02/21/16 Agricultural Technician Relationship Specialty Start Date End Date Ailin Pierson MD [address] [place] [address] PCP - General Internal Medicine 02/21/16 Agricultural Technician Relationship Specialty Start Date End Date Ailin Pierson MD [address] [place] [address] PCP - General Internal Medicine 02/21/16 Agricultural Technician Relationship Specialty Start Date End Date Ailin Pierson MD [address] [place] [address] PCP - General Internal Medicine 02/21/16 Agricultural Technician Relationship Specialty Start Date End Date Ailin Pierson MD [address] [place] [address] PCP - General Internal Medicine 02/21/16 Agricultural Technician Relationship Specialty Start Date End Date Ailin Pierson MD [address] [place] [address] PCP - General Internal Medicine 02/21/16 Agricultural Technician Relationship Specialty Start Date End Date Ailin Pierson MD [address] [place] [address] PCP - General Internal Medicine 02/21/16 Agricultural Technician Relationship Specialty Start Date End Date Ailin Pierson MD [address] [place] [address] PCP - General Internal Medicine 02/21/16 Agricultural Technician Relationship Specialty Start Date End Date Ailin Pierson MD [address] [place] [address] PCP - General Internal Medicine 02/21/16 Agricultural Technician Relationship Specialty Start Date End Date Ailin Pierson MD [address] [place] [address] PCP - General Internal Medicine 02/21/16 Agricultural Technician Relationship Specialty Start Date End Date Ailin Pierson MD [address] [place] [address] PCP - General Internal Medicine 02/21/16 Agricultural Technician Relationship Specialty Start Date End Date Ailin Pierson MD [address] [place] [address] PCP - General Internal Medicine 02/21/16 Agricultural Technician Relationship Specialty Start Date End Date Ailin Pierson MD [address] [place] [address] PCP - General Internal Medicine 02/21/16 Vince Huffman MD [address] [place] [address] Radiation Oncology 01/04/24 Agricultural Technician Relationship Specialty Start Date End Date Ailin Pierson MD [address] [place] [address] PCP - General Internal Medicine 02/21/16 Vince Huffman MD [address] [place] [address] Radiation Oncology 01/04/24 Agricultural Technician Relationship Specialty Start Date End Date Ailin Pierson MD [address] [place] [address] PCP - General Internal Medicine 02/21/16 Vince Huffman MD [address] [place] [address] Radiation Oncology 01/04/24 Agricultural Technician Relationship Specialty Start Date End Date Ailin Pierson MD [address] [place] [address] PCP - General Internal Medicine 02/21/16 Vince Huffman MD [address] [place] [address] Radiation Oncology 01/04/24 Agricultural Technician Relationship Specialty Start Date End Date Ailin Pierson MD [address] [place] [address] PCP - General Internal Medicine 02/21/16 Vince Huffman MD [address] [place] [address] Radiation Oncology 01/04/24 Agricultural Technician Relationship Specialty Start Date End Date Ailin Pierson MD [address] [place] [address] PCP - General Internal Medicine 02/21/16 Vince Huffman MD [address] [place] [address] Radiation Oncology 01/04/24 Agricultural Technician Relationship Specialty Start Date End Date Ailin Pierson MD [address] [place] [address] PCP - General Internal Medicine 02/21/16 Vince Huffman MD [address] [place] [address] Radiation Oncology 01/04/24 Agricultural Technician Relationship Specialty Start Date End Date Ailin Pierson MD [address] [place] [address] PCP - General Internal Medicine 02/21/16 Vince Huffman MD [address] [place] [address] Radiation Oncology 01/04/24 Carley Armenta PA-C [address] [place] [address] [facility] 05/06/24 Kayla Betancourt APRN.DIRECTOR OF COMPENSATION [address] [place] [address] [facility] 05/06/24 Nancy Villarreal PA-C [address] [place] [address] [facility] 05/06/24 Agricultural Technician Relationship Specialty Start Date End Date Ailin Pierson MD [address] [place] [address] PCP - General Internal Medicine 02/21/16 Vince Huffman MD [address] [place] [address] Radiation Oncology 01/04/24 Carley Armenta PA-C [address] [place] [address] [facility] 05/06/24 Kayla Betancourt APRN.DIRECTOR OF COMPENSATION [address] [place] [address] [facility] 05/06/24 Nancy Villarreal PA-C [address] [place] [address] [facility] 05/06/24 Agricultural Technician Relationship Specialty Start Date End Date Ailin Pierson MD [address] [place] [address] PCP - General Internal Medicine 02/21/16 Vince Huffman MD [address] [place] [address] Radiation Oncology 01/04/24 Carley Armenta PA-C [address] [place] [address] [facility] 05/06/24 Kayla Betancourt APRN.DIRECTOR OF COMPENSATION [address] [place] [address] [facility] 05/06/24 Nancy Villarreal PA-C [address] [place] [place] [address] [facility] 05/06/24 Agricultural Technician Relationship Specialty Start Date End Date Ailin Pierson MD [address] [facility] [place] [address] PCP - General Internal Medicine 02/21/16 Vince Huffman MD [address] [facility] [place] [address] Radiation Oncology 01/04/24 Carley Armenta PA-C [address] [place] [address] [facility] 05/06/24 Kayla Betancourt APRN.DIRECTOR OF COMPENSATION [address] [place] [address] [facility] 05/06/24 Nancy Villarreal PA-C [address] [place] [place] [address] [facility] 05/06/24 Agricultural Technician Relationship Specialty Start Date End Date Ailin Pierson MD [address] [facility] [place] [address] PCP - General Internal Medicine 02/21/16 Vince Huffman MD [address] [place] [address] Radiation Oncology 01/04/24 Carley Armenta PA-C [address] [place] [address] [facility] 05/06/24 Kayla Betancourt APRN.DIRECTOR OF COMPENSATION [address] [facility] [place] [address] [facility] 05/06/24 Nancy Villarreal PA-C [address] [place] [address] [facility] 05/06/24 Agricultural Technician Relationship Specialty Start Date End Date Ailin Pierson MD [address] [facility] [place] [address] PCP - General Internal Medicine 02/21/16 Vince Huffman MD [address] [place] [address] Radiation Oncology 01/04/24 Carley Armenta PA-C [address] [place] [address] [facility] 05/06/24 Kayla Betancourt APRN.DIRECTOR OF COMPENSATION [address] [place] [address] [facility] 05/06/24 Nancy Villarreal PA-C [address] [place] [address] [facility] 05/06/24 Agricultural Technician Relationship Specialty Start Date End Date Ailin Pierson MD [address] [place] [address] PCP - General Internal Medicine 02/21/16 Vince Huffman MD [address] [place] [address] Radiation Oncology 01/04/24 Carley Armenta PA-C [address] [place] [address] [facility] 05/06/24 Kayla Betancourt APRN.CNP [address] [place] [address] [facility] 05/06/24 Nancy Villarreal PA-C [address] [place] [address] [facility] 05/06/24 Agricultural Technician Relationship Specialty Start Date End Date Ailin Pierson MD [address] [place] [address] PCP - General Internal Medicine 02/21/16 Vince Huffman MD [address] [place] [address] Radiation Oncology 01/04/24 Carley Armenta PA-C [address] [place] [address] [facility] 05/06/24 Kayla Betancourt APRN.DIRECTOR OF COMPENSATION [address] [place] [address] [facility] 05/06/24 Nancy Villarreal PA-C [address] [place] [address] [facility] 05/06/24 Agricultural Technician Relationship Specialty Start Date End Date Ailin Pierson MD [address] [place] [address] PCP - General Internal Medicine 02/21/16 Vince Huffman MD [address] [place] [address] Radiation Oncology 01/04/24 Carley Armenta PA-C [address] [place] [address] [facility] 05/06/24 Kayla Betancourt APRN.DIRECTOR OF COMPENSATION [address] [place] [address] [facility] 05/06/24 Nancy Villarreal PA-C [address] [place] [address] [facility] 05/06/24 Agricultural Technician Relationship Specialty Start Date End Date Ailin Pierson MD [address] [place] [address] PCP - General Internal Medicine 02/21/16 Vince Huffman MD [address] [place] [address] Radiation Oncology 01/04/24 Carley Armenta PA-C [address] [place] [address] [facility] 05/06/24 Kayla Betancourt APRN.DIRECTOR OF COMPENSATION [address] [place] [address] [facility] 05/06/24 Nancy Villarreal PA-C [address] [place] [address] [facility] 05/06/24 Agricultural Technician Relationship Specialty Start Date End Date Ailin Pierson MD [address] [place] [address] PCP - General Internal Medicine 02/21/16 Vince Huffman MD [address] [place] [address] Radiation Oncology 01/04/24 Carley Armenta PA-C [address] [place] [address] [facility] 05/06/24 Kayla Betancourt APRN.DIRECTOR OF COMPENSATION [address] [place] [address] [facility] 05/06/24 Nancy Villarreal PA-C [address] [place] [address] [facility]/06[facility]24 Agricultural Technician Relationship Specialty Start Date End Date Ailin Pierson MD [address] [place] [address] PCP - General Internal Medicine 02/21/16 Vince Huffman MD [address] [place] [address] Radiation Oncology 01/04/24 Carley Armenta PA-C [address] [place] [address] [facility] 05/06/24 Kayla Betancourt APRN.DIRECTOR OF COMPENSATION [address] [facility] [place] [address] [facility] 05/06/24 Nancy Villarreal PA-C [address] [facility] [place] [address] [facility] 05/06/24 Agricultural Technician Relationship Specialty Start Date End Date Ailin Pierson MD [address] [place] [address] PCP - General Internal Medicine 02/21/16 Vince Huffman MD [address] [place] [address] Radiation Oncology 01/04/24 Carley Armenta PA-C [address] [place] [address] [facility] 05/06/24 Kayla Betancourt APRN.DIRECTOR OF COMPENSATION [address] [place] [address] [facility] 05/06/24 Nancy Villarreal PA-C [address] [place] [address] [facility] 05/06/24 Agricultural Technician Relationship Specialty Start Date End Date Ailin Pierson MD [address] [place] [address] PCP - General Internal Medicine 02/21/16 Vince Huffman MD [address] [place] [address] Radiation Oncology 01/04/24 Carley Armenta PA-C [address] [place] [address] [facility] 05/06/24 Kayla Betancourt APRN.DIRECTOR OF COMPENSATION [address] [place] [address] [facility] 05/06/24 Nancy Villarreal PA-C [address] [place] [address] [facility] 05/06/24 Agricultural Technician Relationship Specialty Start Date End Date Ailin Pierson MD [address] [place] [address] PCP - General Internal Medicine 02/21/16 Vince Huffman MD [address] [place] [address] Radiation Oncology 01/04/24 Carley Armenta PA-C [address] [place] [address] [facility] 05/06/24 Kayla Betancourt APRN.DIRECTOR OF COMPENSATION [address] [place] [address] [facility] 05/06/24 Nancy Villarreal PA-C [address] [place] [address] [facility] 05/06/24 Agricultural Technician Relationship Specialty Start Date End Date Ailin Pierson MD [address] [place] [address] PCP - General Internal Medicine 02/21/16 Vince Huffman MD [address] [place] [facility] [place] [address] Radiation Oncology 01/04/24 Carley Armenta PA-C [address] [place] [address] [facility] 05/06/24 Kayla Betancourt APRN.DIRECTOR OF COMPENSATION [address] [place] [address] [facility] 05/06/24 Nancy Villarreal PA-C [address] [place] [address] [facility] 05/06/24 Agricultural Technician Relationship Specialty Start Date End Date Ailin Pierson MD [address] [place] [address] PCP - General Internal Medicine 02/21/16 Vince Huffman MD [address] [place] [address] Radiation Oncology 01/04/24 Carley Armenta PA-C [address] [place] [address] [facility] 05/06/24 Kayla Betancourt APRN.DIRECTOR OF COMPENSATION [address] [place] [address] [facility] 05/06/24 Nancy Villarreal PA-C [address] [place] [address] [facility] 05/06/24 Agricultural Technician Relationship Specialty Start Date End Date Ailin Pierson MD [address] [place] [place] [address] PCP - General Internal Medicine 02/21/16 Vince Huffman MD [address] [place] [address] Radiation Oncology 01/04/24 Carley Armenta PA-C [address] [place] [address] [facility] 05/06/24 Kalya Betancourt APRN.DIRECTOR OF COMPENSATION [address] [place] [place] [address] [facility] 05/06/24 Nancy Villarreal PA-C [address] [place] [address] [facility] 05/06/24 Agricultural Technician Relationship Specialty Start Date End Date Ailin Pierson MD [address] [place] [address] PCP - General Internal Medicine 02/21/16 Vince Huffman MD [address] [place] [address] Radiation Oncology 01/04/24 Carley Armenta PA-C [address] [place] [address] [facility] 05/06/24 Kayla Betancourt APRN.CNP [address] [place] [address] [facility] 05/06/24 Nancy Villarreal PA-C [address] [place] [address] [facility] 05/06/24 Agricultural Technician Relationship Specialty Start Date End Date Ailin Pierson MD [address] [place] [address] PCP - General Internal Medicine 02/21/16 Vince Huffman MD [address] [place] [address] Radiation Oncology 01/04/24 Carley Armenta PA-C [address] [place] [address] [facility] 05/06/24 Kayla Betancourt APRN.DIRECTOR OF COMPENSATION [address] [place] [address] [facility] 05/06/24 Nancy Villarreal PA-C [address] [place] [address] [facility] 05/06/24 Agricultural Technician Relationship Specialty Start Date End Date Ailin Pierson MD [address] [place] [address] PCP - General Internal Medicine 02/21/16 Vince Huffman MD [address] [place] [address] Radiation Oncology 01/04/24 Kayla Betancourt APRN.DIRECTOR OF COMPENSATION [address] [place] [address] [facility] 05/06/24 Agricultural Technician Relationship Specialty Start Date End Date Ailin Pierson MD [address] [place] [address] PCP - General Internal Medicine 02/21/16 Vince Huffman MD [address] [place] [address] Radiation Oncology 01/04/24 Kayla Betancourt APRN.DIRECTOR OF COMPENSATION [address] [place] [address] [facility] 05/06/24 Team Status: Active Member Role Status Dates Dr. Ailin Pierson MD Primary Care Provider Active Team Status: Inactive Member Role Status Dates Dr. Ailin Pierson MD Primary Care Provider Active Start: May 09, 2024 End: May 09, 2024 Dr. Marin Platt DO Attending Provider Activ e Start: May 09, 2024 End: May 09, 2024 Dr. Marin Platt DO Emergency Provider Activ e Start: May 09, 2024 End: May 09, 2024 Team Status: Inactive Member Role Status Dates Dr. Ailin Pierson MD Primary Care Provider Active Start: May 22, 2024 End: May 24, 2024 Dr. Mich Stokes MD Emergency Provider Active S tart: May 22, 2024 End: May 24, 2024 Dr. Tyler Garcia MD Admit Provider Active St art: May 22, 2024 End: May 24, 2024 Dr. Tyler Garcia MD Other Provider Active St art: May 22, 2024 End: May 24, 2024 Samuel Adler MD Other Provider Active Start: May 22, 2024 End: May 24, 2024 Dr. Brayden Gaona DO Attending Provider Active Start: May 22, 2024 End: May 24, 2024 Team Status: Active Member Role Status Dates Dr. Ailin Pierson MD Primary Care Provider Active Start: May 22, 2024 Dr. Mich Stokes MD Emergency Provider Active S tart: May 22, 2024 Dr. Tyler Garcia MD Admit Provider Active St art: May 22, 2024 Dr. Tyler Garcia MD Attending Provider Active Start: May 22, 2024 Dr. Tyler Garcia MD Other Provider Active St art: May 22, 2024 Team Status: Active Member Role Status Dates Dr. Ailin Pierson MD Primary Care Provider Active Start: May 23, 2024 Dr. Mich Stokes MD Emergency Provider Active S tart: May 23, 2024 Dr. Tyler Garcia MD Admit Provider Active St art: May 23, 2024 Dr. Tyler Garcia MD Other Provider Active St art: May 23, 2024 Samuel Adler MD Other Provider Active Start: May 23, 2024 Dr. Brayden Gaona DO Attending Provider Active Start: May 23, 2024 Dr. Brayden Gaona DO Other Provider Active S tart: May 23, 2024 Team Status: Active Member Role Status Dates Dr. Ailin Pierson MD Primary Care Provider Active Start: May 24, 2024 Dr. Mich Stokes MD Emergency Provider Active S tart: May 24, 2024 Dr. Tyler Garcia MD Admit Provider Active St art: May 24, 2024 Dr. Tyler Garcia MD Other Provider Active St art: May 24, 2024 Samuel Adler MD Attending Provider Active St art: May 24, 2024 Samuel Adler MD Other Provider Active Start: May 24, 2024 Dr. Brayden Gaona DO Referring Provider Active Start: May 24, 2024 Dr. Brayden Gaona DO Other Provider Active S tart: May 24, 2024 Team Status: Active Member Role Status Dates Dr. Ailin Pierson MD Primary Care Provider Active Start: May 24, 2024 Dr. Mich Stokes MD Emergency Provider Active S tart: May 24, 2024 Dr. Tyler Garcia MD Admit Provider Active St art: May 24, 2024 Dr. Tyler Garcia MD Other Provider Active St art: May 24, 2024 Samuel Adler MD Other Provider Active Start: May 24, 2024 Dr. Brayden Gaona DO Attending Provider Active Start: May 24, 2024 Dr. Brayden Gaona DO Other Provider Active S tart: May 24, 2024 Team Status: Inactive Member Role Status Dates Dr. Ailin Pierson MD Primary Care Provider Active Start: June 19, 2024 End: June 21, 2024 Faustino Starr MD Emergency Provider Active Star t: June 19, 2024 End: June 21, 2024 Dr. Itzel Randle MD Admit Provider Active St art: June 19, 2024 End: June 21, 2024 Dr. Itzel Randle MD Attending Provider Active Start: June 19, 2024 End: June 21, 2024 Dr. Itzel Randle MD Other Provider Active St art: June 19, 2024 Team Status: Active Member Role Status Dates Dr. Ailin Pierson MD Primary Care Provider Active Start: June 20, 2024 Faustino Starr MD Emergency Provider Active Star t: June 20, 2024 Dr. Itzel Randle MD Admit Provider Active St art: June 20, 2024 Dr. Itzel Randle MD Attending Provider Active Start: June 20, 2024 Dr. Itzel Randle MD Other Provider Active St art: June 20, 2024 Team Status: Active Member Role Status Dates Dr. Ailin Pierson MD Primary Care Provider Active Start: June 21, 2024 Faustino Starr MD Emergency Provider Active Star t: June 21, 2024 Dr. Itzel Randle MD Admit Provider Active St art: June 21, 2024 Dr. Itzel Randle MD Attending Provider Active Start: June 21, 2024 Dr. Itzel Randle MD Other Provider Active St art: June 21, 2024 Team Status: Inactive Member Role Status Dates Dr. Ailin Pierson MD Primary Care Provider Active Start: August 29, 2024 End: August 29, 2024 Dr. Lamont Fajardo DO Emergency Provider Active S tart: August 29, 2024 End: August 29, 2024 Agricultural Technician Relationship Specialty Start Date End Date Ailin Pierson MD [address] [facility] [place] [place] [address] PCP - General Internal Medicine 02/21/16 Vince Huffman MD [address] [place] [id number] Radiation Oncology 01/04/24 Kayla Betancourt APRN.DIRECTOR OF COMPENSATION [address] [facility] [place] DC [address] [employer] Internal Medicine 05/06/24 Agricultural Technician Relationship Specialty Start Date End Date Ailin Pierson MD [address] [facility] [place] [place] DC [id number] PCP - General Internal Medicine 02/21/16 Vince Huffman MD [address] [place] [address] Radiation Oncology 01/04/24 Kayla Betancourt APRN.DIRECTOR OF COMPENSATION [address] [place] [address] [employer] Internal Medicine 05/06/24 Agricultural Technician Relationship Specialty Start Date End Date Ailin Pierson MD [address] [place] [address] PCP - General Internal Medicine 02/21/16 Vince Huffman MD [address] [place] [address] Radiation Oncology 01/04/24 Kayla Betancourt APRN.DIRECTOR OF COMPENSATION [address] [place] [address] [employer] Internal Medicine 05/06/24 Agricultural Technician Relationship Specialty Start Date End Date Ailin Pierson MD [address] [place] [address] PCP - General Internal Medicine 02/21/16 Vince Huffman MD [address] [place] [address] Radiation Oncology 01/04/24 Kayla Betancourt APRN.DIRECTOR OF COMPENSATION [address] [place] [address] [employer] Internal Medicine 05/06/24 Agricultural Technician Relationship Specialty Start Date End Date Ailin Pierson MD [address] [place] [address] PCP - General Internal Medicine 02/21/16 Vince Huffman MD [address] [place] [address] Radiation Oncology 01/04/24 Kayla Betancourt APRN.DIRECTOR OF COMPENSATION [address] [place] [address] [employer] Internal Medicine 05/06/24 Agricultural Technician Relationship Specialty Start Date End Date Ailin Pierson MD [address] [place] [address] PCP - General Internal Medicine 02/21/16 Vince Huffman MD [address] [place] [address] Radiation Oncology 01/04/24 Kayla Betancourt APRN.DIRECTOR OF COMPENSATION [address] [place] [address] [employer] Internal Medicine 05/06/24 Agricultural Technician Relationship Specialty Start Date End Date Ailin Pierson MD [address] [place] [address] PCP - General Internal Medicine 02/21/16 Vince Huffman MD [address] [place] [address] Radiation Oncology 01/04/24 Kayla Betancourt APRN.DIRECTOR OF COMPENSATION [address] [place] [address] [employer] Internal Medicine 05/06/24 Agricultural Technician Relationship Specialty Start Date End Date Ailin Pierson MD [address] [place] [address] PCP - General Internal Medicine 02/21/16 Vince Huffman MD [address] [place] [address] Radiation Oncology 01/04/24 Kayla Betancourt APRN.DIRECTOR OF COMPENSATION [address] [place] [address] [facility] Internal Medicine 05/06/24 Agricultural Technician Relationship Specialty Start Date End Date Ailin Pierson MD [address] [place] [address] PCP - General Internal Medicine 02/21/16 Vince Huffman MD [address] [place] [address] Radiation Oncology 01/04/24 Kayla Betancourt APRN.DIRECTOR OF COMPENSATION [address] [place] [address] [employer] Internal Medicine 05/06/24 Agricultural Technician Relationship Specialty Start Date End Date Ailin Pierson MD [address] [place] [address] PCP - General Internal Medicine 02/21/16 Vince Huffman MD [address] [place] [address] Radiation Oncology 01/04/24 Kayla Betancourt APRN.DIRECTOR OF COMPENSATION [address] [place] [address] [employer] Internal Medicine 05/06/24 Agricultural Technician Relationship Specialty Start Date End Date Ailin Pierson MD [address] [place] [address] PCP - General Internal Medicine 02/21/16 Vince Huffman MD [address] [place] [address] Radiation Oncology 01/04/24 Kayla Betancourt APRN.DIRECTOR OF COMPENSATION [address] [place] [address] [employer] Internal Medicine 05/06/24 Agricultural Technician Relationship Specialty Start Date End Date Ailin Pierson MD [address] [place] [address] PCP - General Internal Medicine 02/21/16 Vince Huffman MD [address] [place] [address] Radiation Oncology 01/04/24 Kayla Betancourt APRN.DIRECTOR OF COMPENSATION [address] [place] [address] [employer] Internal Medicine 05/06/24 Agricultural Technician Relationship Specialty Start Date End Date Ailin Pierson MD [address] [place] [address] PCP - General Internal Medicine 02/21/16 Vince Huffman MD [address] [place] [address] Radiation Oncology 01/04/24 Kayla Betancourt, [place] DECORATOR.DIRECTOR OF COMPENSATION [address] [place] [address] [employer] Internal Medicine 05/06/24 Agricultural Technician Relationship Specialty Start Date End Date Ailin Pierson MD [address] [place] [address] PCP - General Internal Medicine 02/21/16 Vince Huffman MD [address] [place] [address] Radiation Oncology 01/04/24 Kayla Betancourt, WEDDING DECORATOR.DIRECTOR OF COMPENSATION [address] [place] [address] [employer] Internal Medicine 05/06/24 Agricultural Technician Relationship Specialty Start Date End Date Ailin Pierson MD [address] [place] [address] PCP - General Internal Medicine 02/21/16 Vince Huffman MD [address] [place] [address] Radiation Oncology 01/04/24 Kayla Betancourt, WEDDING DECORATOR.DIRECTOR OF COMPENSATION [address] [place] [address] [employer] Internal Medicine 05/06/24 Agricultural Technician Relationship Specialty Start Date End Date Ailin Pierson MD [address] [place] [address] PCP - General Internal Medicine 02/21/16 Vince Huffman MD [address] [place] [address] Radiation Oncology 01/04/24 Kayla Betancourt APRN.DIRECTOR OF COMPENSATION [address] [place] [address] [employer] Internal Medicine 05/06/24 Sophia Garay RN Primary Care Cpc 12/03/24 Agricultural Technician Relationship Specialty Start Date End Date Ailin Pierson MD [address] [place] [address] PCP - General Internal Medicine 02/21/16 Vince Huffman MD [address] [place] [address] Radiation Oncology 01/04/24 Kayla Betancourt APRN.DIRECTOR OF COMPENSATION [address] [place] [address] [employer] Internal Medicine 05/06/24 Sophia Garay RN Primary Care Cpc 12/03/24 Agricultural Technician Relationship Specialty Start Date End Date Ailin Pierson MD [address] [place] [address] PCP - General Internal Medicine 02/21/16 Vince Huffman MD [address] [place] [address] Radiation Oncology 01/04/24 Kayla Betancourt APRN.DIRECTOR OF COMPENSATION [address] [place] [address] [employer] Internal Medicine 05/06/24 Jarrod, Sophia, weight engineer Cpc 12/03/24 Agricultural Technician Relationship Specialty Start Date End Date Ailin Pierson MD [address] [place] [address] PCP - General Internal Medicine 02/21/16 Vince Huffman MD [address] [place] [address] Radiation Oncology 01/04/24 Older, RAMESH GarzaN.DIRECTOR OF COMPENSATION [address] [place] [address] [employer] Internal Medicine 05/06/24 Sophia Garay RN Primary Care Cpc 12/03/24 Agricultural Technician Relationship Specialty Start Date End Date Ailin Pierson MD [address] [place] [address] PCP - General Internal Medicine 02/21/16 Vince Huffman MD [address] [place] [address] Radiation Oncology 01/04/24 Kayla Betancourt, WEDDING DECORATOR.DIRECTOR OF COMPENSATION [address] [place] [address] [employer] Internal Medicine 05/06/24 Sophia Garay, weight engineer Cpc 12/03/24 Agricultural Technician Relationship Specialty Start Date End Date Ailin Pierson MD [address] [place] [address] PCP - General Internal Medicine 02/21/16 Vince Huffman MD [address] [place] [address] Radiation Oncology 01/04/24 Kayla Betancourt APRN.DIRECTOR OF COMPENSATION [address] [place] [address] [employer] Internal Medicine 05/06/24 Sophia Garay, weight engineer Cpc 12/03/24 Agricultural Technician Relationship Specialty Start Date End Date Ailin Pierson MD [address] [place] [address] PCP - General Internal Medicine 02/21/16 Vince Huffman MD [address] [place] [address] Radiation Oncology 01/04/24 Kayla Betancourt APRN.DIRECTOR OF COMPENSATION [address] [place] [address] [employer] Internal Medicine 05/06/24 Sophia Garay, weight engineer Cpc 12/03/24 12/25/24 Agricultural Technician Relationship Specialty Start Date End Date Ailin Pierson MD [address] [place] [address] PCP - General Internal Medicine 02/21/16 Vince Huffman MD [address] [place] [address] Radiation Oncology 01/04/24 Kayla Betancourt APRN.DIRECTOR OF COMPENSATION [address] [place] [address] [employer] Internal Medicine 05/06/24 Agricultural Technician Relationship Specialty Start Date End Date Ailin Pierson MD [address] [place] [address] PCP - General Internal Medicine 02/21/16 Vince Huffman MD [address] [place] [id number] Radiation Oncology 01/04/24 Kayla Betancourt APRN.DIRECTOR OF COMPENSATION [address] [place] [id number] [employer] Internal Medicine 05/06/24 Joseluis Lawton, RN [address] [place] [address] Primary Care Cpc Unspecified 12/28/24 FOR RECORDS PERTAINING TO PATIENTS WHO ARE OR HAVE BEEN ENROLLED IN A CHEMICAL DEPENDENCY/SUBSTANCEABUSE PROGRAM, SOME INFORMATION MAY BE OMITTED. This clinical summary was aggregated from multiple sources. Caution should be exercised in using it in the provision of clinical care. This summary normalizes information from multiple sources, and as a consequence, information in this document may materially change the coding, format and clinical context of patient data. In addition, data may be omitted in some cases. CLINICAL DECISIONS SHOULD BE BASED ON THE PRIMARY CLINICAL RECORDS. [facility] [employer] provides no warranty or guarantee of the accuracy or completeness of information in this document.
[2025-01-06 13:39] LABS: Mucous, Urine 0 SEEN /hpf (<or=2+); Squamous Epithelial Cells - UA 0 SEEN /hpf (0-5)
[2025-01-06 13:42] LABS: Color, Urine Yellow (Yellow); Glucose, Dipstick Normal (Normal); Ketone-Dipstick Negative (Negative); Leukocyte Esterase-Dipstick 500 /ul (Negative); Nitrite-Dipstick Positive (Negative); Occult Blood-Urine 250 /ul (Negative); Protein-Dipstick 500 mg/dl (Negative); Specific Gravity, Urine 1.015 (1.002-1.030); Urine Bilirubin Dipstick Negative (Negative)
[2025-01-06 13:51] LABS: Red Blood Cells-Urine 10-25 SEEN /hpf (0-5)
[2025-01-06] MEDS: 0.9% Normal Saline (1000mL) 1,000 ML 150 ML IV (13:58)
[2025-01-06 14:05] LABS: Hematocrit 28.5 % (40-54); Hemoglobin 9.7 g/dL (13.0-16.5); Immature Granulocytes Count 0.090 X10^3/uL (0.0-0.0); Mean Corp Hgb Conc 34.0 g/dL (32-36); Mean Corpuscular Volume 104.0 fL (80-94); Mean Platelet Vol. 8.6 fl (6.2-12.0); NRBC Flagged by Analyzer 0 % (0-5); Platelet Count 234 K/mm3 (150-450); RBC Distribution Width CV 12.5 % (11.6-14.6); RBC Distribution Width SD 47.4 fl (35.1-43.9); Red Blood Count 2.74 M/mm3 (4.6-6.2); White Blood Count 12.9 K/mm3 (4.4-11.0)
[2025-01-06 14:19] LABS: Anion Gap 12 (5-15); BUN 26 mg/dL (4-19); BUN/Creat Ratio 22.0 RATIO (10-20); Calcium,Total 9.4 mg/dL (7.6-11.0); Carbon Dioxide 22.7 mmol/L (21.0-32.0); Chloride 98 mmol/L (98-108); Estimated Creatinine Clearance 62.81 ml/min (50-250); Glucose 103 mg/dL (70-99); Potassium 4.5 mmol/L (3.3-5.1)
--- OUTSIDE RECORDS SUMMARY | 2025-01-06 14:46 | XMS RPT_ITS | CCD ---
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 Ailin Pierson MD Primary Care Provider [phone] Dr. Marin Platt DO Attending Provider Dr. Marin Platt DO Emergency Provider Dr. Mich Stokes MD Emergency Provider Jose BHARDWAJ, Dr. Scott Admit Provider Unavailab elin Garcia MD, Dr. Scott Other Provider Unavailab Samuel Vincent MD Other Provider Dr. Brayden Gaona DO Attending Provider Jose BHARDWAJ, Dr. Scott Attending Provider Renee Gaona DO, Dr. Owen Other Provider Samuel Adler MD Attending Provider Jimenez DAWSON, Dr. Owen Referring Provider Faustino Starr MD Emergency Provider Razia BHARDWAJ, Dr. Itzel Hancock Admit Provider [phone] Razia BHARDWAJ, Dr. Itzel Hancock Attending Provider Razia BHARDWAJ, Dr. Itzel Hancock Other Provider Scotty DAWSON, Dr. Miguel Emergency Provider [phone] Ganta, Ailin Primary Care Unavailable Garcia, Achintya [...] Attending Unavailable Garcia, Achintya Admitting Unavailable Samuel Alder Consulting Unavailable Ganta, Ailin Primary Care Unavailable [...] Unavailable GANTA, AILIN Primary Care Unavailable GANTA, AILNI Primary Care Unavailable Allergies Allergy Classification Reported Allergen(s) Allergy Type Date of Onset Reaction(s) Facility (11 sources) environmental [Other] Propensity to adverse reactions 6 [facility] Work Phone: (20 sources) ramelteon; Translations: [RAMELTEON] Drug Allergy 4 Mental Status Change [facility] (1 source) ramelteon Drug Allergy 5 [facility] Repository Medications Current Medications Medication Drug Class(es) [...] daily azelastine 0.1% nasal spray Use 1 [place] in each nostril two times a day. 30 mL 1 04/23/2024 Active cephalexin 500 mg oral capsule (2 sources) Cephalosporin Antibacterial Start: 12-27-2024 End: 01-01-2025 take 1 capsule by mouth four times daily cephALEXin (KEFLEX) 500 mg capsule Take 1 capsule by mouth four times daily for 5 days. 20 capsule 12/27/2024 01/01/2025 Active Start: 08-29-2024 take 1 capsule by [facility] every six hours Cephalexin 500 mg [...] Take 1 tablet by mouth twice weekly [id number], then decrease to 1 tablet weekly. 8 [...] Diuretic, Angiotensin Converting Enzyme Inhibitor Start: 05-22-2024 Lisinopril-[place] chlorothiazide 10-12.5 mg tablet Active 1 {tbl} [...] August 29, 2024 12:00am polyethylene glycol 3350 80832 mg powder for oral solution (20 sources) [...] 3:16pm Start: 08-30-2017 take 1 tablet by [facility] once daily aspirin, enteric coated (ASPIRIN, ENTERIC COATED) 81 mg EC tablet Indications: S/P left unicompartmental knee replacement Take 81 mg by mouth once daily. 08/30/2017 Active Comment on above: Take 1 tablet by [facility] once daily. 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 Faxed to [phone] per request. Patient aware to follow up with [facility] scheduling for polysomnogram. Patient also requesting to [...] - Fully Assessed Reason for Visit: Orders [941] Prescriptions as of 01/03/2025 - finasteride (PROSCAR) [...] - azelastine 0.1% nasal spray Use 1 Goddard in each nostril two times a day. - lisinopril-hydroCHLOROthia zide (ZESTORETIC) 10-12.5 mg per tablet Take 1 tablet by mouth once daily. - ergocalciferol 50,000 unit capsule (VITAMIN D2, DRISDOL) Take 1 capsule by mouth two times a week. TO BE TAKEN ORALLY DIRECTED. Take 1 tablet by mouth twice weekly [id number], then decrease to 1 tablet weekly. - [...] Encounter Status:Closed by ZAIRE WELLINGTON on 01/03/25 [facility] Telephone (RADHA) -- ZACHARY HSORT ([id number]) 1945 M Date Time Provider Department 01/03/25 [...] - azelastine 0.1% nasal spray Use 1 [place] in each nostril two times a day. - lisinopril-hydroCHLOROthia zide (ZESTORETIC) 10-12.5 mg per tablet Take 1 tablet by mouth once daily. - ergocalciferol 50,000 unit capsule (VITAMIN D2, DRISDOL) Take 1 capsule by mouth two times a week. TO BE TAKEN ORALLY DIRECTED. Take 1 tablet by mouth twice weekly [id number], then decrease to 1 tablet weekly. - [...] Encounter Status:Closed by CHRISTOPHER BRODERICK on 01/04/25 [facility] CNOVon 01-01-2025 CNOV Office Visit (INTMWS ) -- ZACHARY SHORT ([id number]) 1945 M Date Time Provider Department 01/01/25 [...] sleep study at the sleep lab in [facility]. This is necessary to determine the best [...] Schedule and complete the sleep study at [facility] to evaluate your sleep apnea and determine [...] weakness Barney (more content not included)... Normal [facility] Basic metabolic 2000 panelon 12-27-2024 Anion gap [Moles/Vol] 18 mmol/L High 8-15 [facility] Comment on above: Order Comment: Speci men Type: BLOOD SPECIMEN Ordering Facility: [facility] Address: [address] [place] [address] Performed By: #### 2 4321-2, #### [facility] CLIA [id number] [address] [place] [address] [place] Calcium [Mass/Vol] 9.1 mg/dL Normal 8.5-10.2 [facility] Comment on above: Order Comment: Speci men Type: BLOOD SPECIMEN Ordering Facility: [facility] Address: [address] [place] [address] Performed By: #### 2 4321-2, #### [facility] CLIA [id number] [address] [place] [address] [place] Chloride [Moles/Vol] 98 mmol/L Normal 98-107 [facility] Comment on above: Order Comment: Speci men Type: BLOOD SPECIMEN Ordering Facility: [facility] Address: [address] [place] [address] Performed By: #### 2 4321-2, #### [facility] CLIA [id number] [address] [place] [address] [place] CO2 [Moles/Vol] 18 mmol/L Low 22-30 [facility] Comment on above: Order Comment: Speci men Type: BLOOD SPECIMEN Ordering Facility: [facility] Address: [address] [place] [address] Performed By: #### 2 4321-2, #### [facility] CLIA [id number] [address] [place] [address] [place] Creatinine [Mass/Vol] 1.19 mg/dL Normal 0.73-1.22 [facility] Comment on above: Order Comment: Speci men Type: BLOOD SPECIMEN Ordering Facility: [facility] Address: [address] [place] [address] Performed By: #### 2 4321-2, #### [facility] CLIA [id number] [address] [place] [address] [place] eGFRcr SerPlBld CKD-EPI 2020 61 mL/min/1.73m??? Normal >=60 [facility] Comment on above: Order Comment: Radha charles Type: BLOOD SPECIMEN Ordering Facility: [facility] Address: [address] [place] [address] Result Comment: Ekaterina mated Glomerular Filtration Rate [...] GFR. Performed By: #### 2 432-2, #### [facility] CLIA [id number] [address] [place] [address] [place] Glucose [Mass/Vol] 96 mg/dL Normal 74-99 [facility] Comment on above: Order Comment: Radha charles Type: BLOOD SPECIMEN Ordering Facility: [facility] Address: [address] [place] [address] Result Comment: The [place] Diabetes Association (ADA) provides guidance for cutoff [...] Standards of Medical Care in Diabetes 2016, [place] [employer]. Diabetes Care. 2016.39(Suppl 1). Performed By: #### 2 4321-2, #### [facility] CLIA [id number] [address] [place] [address] [place] Potassium [Moles/Vol] 4.6 mmol/L Normal 3.7-5.1 [facility] Comment on above: Order Comment: Speci men Type: BLOOD SPECIMEN Ordering Facility: [facility] Address: [address] [place] [address] Performed By: #### 2 4321-2, #### [facility] CLIA [id number] [address] [facility] Sodium [Moles/Vol] 134 mmol/L Low 136-144 [facility] Comment on above: Order Comment: Speci men Type: BLOOD SPECIMEN Ordering Facility: [facility] Address: [address] [place] [address] Performed By: #### 2 4321-2, #### [facility] CLIA [id number] [address] [place] [facility] Urea nitrogen [Mass/Vol] 21 mg/dL Normal 9-24 [facility] Comment on above: Order Comment: Speci men Type: BLOOD SPECIMEN Ordering Facility: [facility] Address: [address] [place] [address] Performed By: #### 2 4321-2, #### [facility] CLIA [id number] [address] [place] CBC W Auto Differential pane l (Bld)on 12-27-2024 Basophils (Bld) [#/Vol] 0.08 10*3/uL Normal <0.11 [facility] Comment on above: Order Comment: Speci men Type: BLOOD SPECIMENOrdering Facility: [facility] Address: [address] [place] [address] Performed By: #### 5 7021-8 ####[facility] [id number] [address] Basophils/100 WBC (Bld) 1.1 % Normal [facility] Comment on above: Order Comment: Speci men Type: BLOOD SPECIMENOrdering Facility: [facility] Address: [address] [place] [address] Performed By: #### 5 7021-8 ####[facility] [id number] [address] Differential cell count method Nom (Bld) Auto Normal [facility] Comment on above: Order Comment: Speci men Type: BLOOD SPECIMENOrdering Facility: [facility] Address: [address] [place] [address] Performed By: #### 5 7021-8 ####[facility] [id number] [place] [address] [place] Eosinophils (Bld) [#/Vol] 0.41 10*3/uL Normal <0.46 [facility] Comment on above: Order Comment: Speci men Type: BLOOD SPECIMENOrdering Facility: [facility] Address: [address] [place] [address] Performed By: #### 5 7021-8 ####[facility] [id number] [address] Eosinophils/100 WBC (Bld) 5.8 % Normal [facility] Comment on above: Order Comment: Speci men Type: BLOOD SPECIMENOrdering Facility: [facility] Address: [address] [place] [address] Performed By: #### 5 7021-8 ####[facility] [id number] [address] Erythrocyte distribution width (RBC) [Ratio] 12.2 % Normal 11.5-15.0 [facility] Comment on above: Order Comment: Speci men Type: BLOOD SPECIMENOrdering Facility: [facility] Address: [address] [place] [address] Performed By: #### 5 7021-8 ####[facility] [id number] [address] [place] Hematocrit (Bld) [Volume fraction] 29.4 % Low 39.0-51.0 [facility] Comment on above: Order Comment: Speci men Type: BLOOD SPECIMENOrdering Facility: [facility] Address: [address] [place] [address] Performed By: #### 5 7021-8 ####[facility] [id number] [place] [address] [place] Hemoglobin (Bld) [Mass/Vol] 9.4 g/dL Low 13.0-17.0 [facility] Comment on above: Order Comment: Speci men Type: BLOOD SPECIMENOrdering Facility: [facility] Address: [address] [place] [address] Performed By: #### 5 7021-8 ####[facility] [id number] [place] [address] [place] Immature granulocytes (Bld) [#/Vol] 0.07 10*3/uL Normal <0.10 [facility] Comment on above: Order Comment: Speci men Type: BLOOD SPECIMENOrdering Facility: [facility] Address: [address] [place] [address] Performed By: #### 5 7021-8 ####[facility] [id number] [address] [place] Immature granulocytes/100 WBC (Bld) 1.0 % Normal [facility] Comment on above: Order Comment: Speci men Type: BLOOD SPECIMENOrdering Facility: [facility] Address: [address] [place] [address] Performed By: #### 5 7021-8 ####[facility] [id number] [place] [address] [place] Lymphocytes (Bld) [#/Vol] 0.71 10*3/uL Low 1.00-4.00 [facility] Comment on above: Order Comment: Speci men Type: BLOOD SPECIMENOrdering Facility: [facility] Address: [address] [place] [address] Performed By: #### 5 7021-8 ####[facility] [id number] [address] [place] Lymphocytes/100 WBC (Bld) 10.1 % Normal [facility] Comment on above: Order Comment: Speci men Type: BLOOD SPECIMENOrdering Facility: [facility] Address: [address] [place] [address] Performed By: #### 5 7021-8 ####[facility] [id number] [address] MCH (RBC) [Entitic mass] 36.3 pg High 26.0-34.0 [facility] Comment on above: Order Comment: Speci men Type: BLOOD SPECIMENOrdering Facility: [facility] Address: [address] [place] [address] Performed By: #### 5 7021-8 ####[facility] [id number] [address] [place] MCHC (RBC) [Mass/Vol] 32.0 g/dL Normal 30.5-36.0 [facility] Comment on above: Order Comment: Speci men Type: BLOOD SPECIMENOrdering Facility: [facility] Address: [address] [place] [address] Performed By: #### 5 7021-8 ####[facility] [id number] [address] MCV (RBC) [Entitic vol] 113.5 fL High 80.0-100.0 [facility] Comment on above: Order Comment: Speci men Type: BLOOD SPECIMENOrdering Facility: [facility] Address: [address] [place] [address] Performed By: #### 5 7021-8 ####[facility] [id number] [address] Monocytes (Bld) [#/Vol] 0.81 10*3/uL Normal <0.87 [facility] Comment on above: Order Comment: Speci men Type: BLOOD SPECIMENOrdering Facility: [facility] Address: [address] [place] [address] Performed By: #### 5 7021-8 ####[facility] [id number] [address] Monocytes/100 WBC (Bld) 11.6 % Normal [facility] Comment on above: Order Comment: Speci men Type: BLOOD SPECIMENOrdering Facility: [facility] Address: [address] [place] [address] Performed By: #### 5 7021-8 ####[facility] [id number] [place] [address] [place] Neutrophils (Bld) [#/Vol] 4.93 10*3/uL Normal 1.45-7.50 [facility] Comment on above: Order Comment: Speci men Type: BLOOD SPECIMENOrdering Facility: [facility] Address: [address] [place] [address] Performed By: #### 5 7021-8 ####[facility] [id number] [place] [address] [place] Neutrophils/100 WBC (Bld) 70.4 % Normal [facility] Comment on above: Order Comment: Speci men Type: BLOOD SPECIMENOrdering Facility: [facility] Address: [address] [place] [address] Performed By: #### 5 7021-8 ####[facility] [id number] [place] [address] [place] Nucleated RBC (Bld) [#/Vol] 10*3/uL Normal <0.01 [facility] Comment on above: Order Comment: Speci men Type: BLOOD SPECIMENOrdering Facility: [facility] Address: [address] [place] [address] Performed By: #### 5 7021-8 ####[facility] [id number] [address] [place] Nucleated RBC/100 WBC (Bld) [Ratio] 0.0 /100 WBC Normal [facility] Comment on above: Order Comment: Speci men Type: BLOOD SPECIMENOrdering Facility: [facility] Address: [address] [place] [address] Performed By: #### 5 7021-8 ####[facility] [id number] [place] [address] [place] Platelet mean volume (Bld) [Entitic vol] 9.2 fL Normal 9.0-12.7 [facility] Comment on above: Order Comment: Speci men Type: BLOOD SPECIMENOrdering Facility: [facility] Address: [address] [place] [address] Performed By: #### 5 7021-8 ####[facility] [id number] [place] [address] [place] [facility] [place] Platelets (Bld) [#/Vol] 241 10*3/uL Normal 150-400 [facility] Comment on above: Order Comment: Speci men Type: BLOOD SPECIMENOrdering Facility: [facility] Address: [address] [place] [address] Performed By: #### 5 7021-8 ####[facility] [id number] [place] [address] [place] RBC (Bld) [#/Vol] 2.59 10*6/uL Low 4.20-6.00 [facility] Comment on above: Order Comment: Speci men Type: BLOOD SPECIMENOrdering Facility: [facility] Address: [address] [place] [address] Performed By: #### 5 7021-8 ####[facility] [id number] [address] [place] WBC (Bld) [#/Vol] 7.12 10*3/uL Normal 3.70-11.00 [facility] Comment on above: Order Comment: Speci men Type: BLOOD SPECIMENOrdering Facility: [facility] Address: [address] [place] [address] Performed By: #### 5 7021-8 ####[facility] [id number] [place] [id number] [facility] [place] CNCOon 12-27-2024 CNCO Letter Text Normal [facility] CNDSon 12-27-2024 CNDS HNO ID: [id number] Author: ALLISON SUN MD Service: Hospital Medicine [...] for tomorrow *Constipation the patient and his nkqdxvr-ns-enw at bedside Plan 12/10/2019 *Continue IV antibiotics [...] Consulting: Jimbo Nolan MD Primary Service: 1, [facility] PATIENT CONDITION AT DISCHARGE: Stable DISCHARGE [...] grossly. Ps (more content not included)... Normal [facility] CONSULT PROGon 12-27-2024 CONSULT PROG HNO ID: [id number] Author: JIMBO NOLAN MD Service: Infectious Disease [...] Shoulder XR Check PSA Renal US DC Mah[place] catheter, continue BPH medications I have reviewed [...] final until Authenticated by responsible provider. Normal [facility] Magnesium SerPl-mCncon 12-27 Magnesium [Mass/Vol] 2.1 mg/dL Normal 1.7-2.3 [facility] Comment on above: Order Comment: Speci men Type: BLOOD SPECIMEN Ordering Facility: [facility] Address: [address] [place] [address] Performed By: #### 2 4321-2, 15204-7 #### [facility] CLIA [id number] [address] [place] [address] [place] [facility] THERAPY NTon 12-27-2024 THERAPY NT HNO ID: [id number] Author: BALAJI GUERRA PT Service: Physical Therapy Author Type: Physical Therapist Type: Therapy (PT/OT/Speech/Resp) Filed: 12/27/2024 14:39 Note Text: -- Summary: PT Eval -- Physical Therapy Evaluation Summary SERVICE DATE: 12/27/2024 SERVICE TIME: 1341 to 1407 ROOM: [place] [address] PT 6 Clicks Score: 21 DISCHARGE RECOMMENDATIONS [...] Available: PRN (from neighbors, sons live in [place]) Entry To Home: No Stairs Number Of [...] past 6 months, enjoys going to the [place] and yard work, recently sold his yacht, sleeps on a flat bed, +drives, manages own meds SUBJECTIVE Pt agreeable to PT, ok per nursing to treat. THERAPY DIAGNOSIS General symptoms and signs-other TREATMENT INTERVENTIONS $ Evaluation-Low (83648) Billed Units: 1 unit Gait Training (01692) Treatment Minutes: 9 $ Gait Training (96762) Billed Units: 1 unit Evaluation, Gait Training (46678) Timed Code Treatment (minutes): 9 Skilled Treatment [...] DATE: December 27, (more content not included)... [facility] THERAPY NT HNO ID: [id number] Author: RICK MCFADDEN, OT/L Service: ? Author Type: Occupational Therapist Type: Therapy (PT/OT/Speech/Resp) Filed: 12/27/2024 10:20 Note Text: -- Summary: OT Evaluation -- Occupational Therapy Evaluation Summary SERVICE DATE: 12/27/2024 SERVICE TIME: 0947 to 1012 ROOM: [place] [address] OT 6 Clicks Score: 21 DISCHARGE RECOMMENDATIONS [...] Available: PRN (from neighbors, sons live in [place]) Entry To Home: No Stairs Number Of [...] past 6 months, enjoys going to the [employer] and yard work, recently sold his yacht, [...] Muscle Weakness (generalized) TREATMENT INTERVENTIONS Evaluation, Self Alf Management (01291) Timed Code Treatment (minutes): 10 Skilled Treatment Time (minutes): 25 TRAINING AND EDUCATION PROVIDED Bed Mobility, Activity Adaptation/Compensatory Strategies, Benefits of In-Hospital Mobility, Cognitive Skills, Command Following, Discharge Planning, Expected Functional Level, Functional Mobility Involving ADLs, Insight into Deficits, Lower Extremity Dressing, Memory/Attention, Orientation, Positioning, Role of Occupational Therapy, Safety/Judgment, Sitting Balance to Improve Starr with ADLs/Self-Care, Standing Balance to Improve Starr with ADLs/Self-Care, Toileting , Transfer - Sit [...] skills, Good (more content not included)... Normal [facility] Basic metabolic 2000 panelon 12-26-2024 Anion gap [Moles/Vol] 10 mmol/L Normal 8-15 [facility] Comment on above: Order Comment: Radha charles Type: BLOOD SPECIMEN Ordering Facility: [facility] Address: [address] [place] [address] Performed By: #### 2 4321-2, #### [facility] CLIA [id number] [address] [place] [address] [place] Calcium [Mass/Vol] 9.1 mg/dL Normal 8.5-10.2 [facility] Comment on above: Order Comment: Radha charles Type: BLOOD SPECIMEN Ordering Facility: [facility] Address: [address] [place] [address] Performed By: #### 2 2, #### [facility] CLIA [id number] [address] [place] [address] [place] Chloride [Moles/Vol] 100 mmol/L Normal 98-107 [facility] Comment on above: Order Comment: Radha charles Type: BLOOD SPECIMEN Ordering Facility: [facility] Address: [address] [place] [address] Performed By: #### 2 2, #### [facility] CLIA [id number] [address] [place] [address] [place] CO2 [Moles/Vol] 27 mmol/L Normal 22-30 [facility] Comment on above: Order Comment: Radha charles Type: BLOOD SPECIMEN Ordering Facility: [facility] Address: [address] [place] [address] Performed By: #### 2 2, #### [facility] CLIA [id number] [address] [place] [address] [place] Creatinine [Mass/Vol] 1.29 mg/dL High 0.73-1.22 [facility] Comment on above: Order Comment: Radha charles Type: BLOOD SPECIMEN Ordering Facility: [facility] Address: [address] [place] [address] Performed By: #### 2 4321-2, #### [facility] CLIA [id number] [address] [place] [address] [place] eGFRcr SerPlBld CKD-EPI 2020 56 mL/min/1.73m??? Low >=60 [facility] Comment on above: Order Comment: Radha charles Type: BLOOD SPECIMEN Ordering Facility: [facility] Address: [address] [place] [address] Result Comment: Ekaterina mated Glomerular Filtration Rate [...] actual GFR. Performed By: #### 2 4321-2, 67423-7 #### [facility] CLIA [id number] [address] [place] [address] [place] Glucose [Mass/Vol] 98 mg/dL Normal 74-99 [facility] Comment on above: Order Comment: Radha charles Type: BLOOD SPECIMEN Ordering Facility: [facility] Address: [address] [place] [address] Result Comment: The [place] Diabetes [employer] (ADA) provides guidance for cutoff [...] Standards of Medical Care in Diabetes 2016, [place] [employer]. Diabetes Care. 2016.39(Suppl 1). Performed By: #### 2 4321-2, #### [facility] CLIA [id number] [address] [place] [address] [place] Potassium [Moles/Vol] 4.4 mmol/L Normal 3.7-5.1 [facility] Comment on above: Order Comment: Speci men Type: BLOOD SPECIMEN Ordering Facility: [facility] Address: [address] [place] [address] Performed By: #### 2 4321-2, #### [facility] CLIA [id number] [address] [place] [address] [place] Sodium [Moles/Vol] 137 mmol/L Normal 136-144 [facility] Comment on above: Order Comment: Speci men Type: BLOOD SPECIMEN Ordering Facility: [facility] Address: [address] [place] [address] Performed By: #### 2 432-2, #### [facility] CLIA [id number] [address] [place] [address] [place] Urea nitrogen [Mass/Vol] 18 mg/dL Normal 9-24 [facility] Comment on above: Order Comment: Speci men Type: BLOOD SPECIMEN Ordering Facility: [facility] Address: [address] [place] [address] Performed By: #### 2 432-2, #### [facility] CLIA [id number] [address] [place] [address] [place] CBC W Auto Differential pane l (Bld)on 12-26-2024 Basophils (Bld) [#/Vol] 0.06 10*3/uL Normal <0.11 [facility] Comment on above: Order Comment: Speci men Type: BLOOD SPECIMENOrdering Facility: [facility] Address: [address] [place] [address] Performed By: #### 5 7021-8 ####[facility] [id number] [address] [place] Basophils/100 WBC (Bld) 0.8 % Normal [facility] Comment on above: Order Comment: Speci men Type: BLOOD SPECIMENOrdering Facility: [facility] Address: [address] [place] [address] Performed By: #### 5 7021-8 ####[facility] [id number] [address] [place] Differential cell count method Nom (Bld) Auto Normal [facility] Comment on above: Order Comment: Speci men Type: BLOOD SPECIMENOrdering Facility: [facility] Address: [address] [place] [address] Performed By: #### 5 7021-8 ####[facility] [id number] [place] [address] [place] Eosinophils (Bld) [#/Vol] 0.43 10*3/uL Normal <0.46 [facility] Comment on above: Order Comment: Speci men Type: BLOOD SPECIMENOrdering Facility: [facility] Address: [address] [place] [address] Performed By: #### 5 7021-8 ####[facility] [id number] [address] [place] Eosinophils/100 WBC (Bld) 6.0 % Normal [facility] Comment on above: Order Comment: Speci men Type: BLOOD SPECIMENOrdering Facility: [facility] Address: [address] [place] [address] Performed By: #### 5 7021-8 ####[facility] [id number] [address] [place] Erythrocyte distribution width (RBC) [Ratio] 12.3 % Normal 11.5-15.0 [facility] Comment on above: Order Comment: Speci men Type: BLOOD SPECIMENOrdering Facility: [facility] Address: [address] [place] [address] Performed By: #### 5 7021-8 ####[facility] [id number] [address] [place] Hematocrit (Bld) [Volume fraction] 26.9 % Low 39.0-51.0 [facility] Comment on above: Order Comment: Speci men Type: BLOOD SPECIMENOrdering Facility: [facility] Address: [address] [place] [address] Performed By: #### 5 7021-8 ####[facility] [id number] [place] [address] [place] Hemoglobin (Bld) [Mass/Vol] 9.3 g/dL Low 13.0-17.0 [facility] Comment on above: Order Comment: Speci men Type: BLOOD SPECIMENOrdering Facility: [facility] Address: [address] [place] [address] Performed By: #### 5 7021-8 ####[facility] [id number] [place] [address] [place] Immature granulocytes (Bld) [#/Vol] 0.07 10*3/uL Normal <0.10 [facility] Comment on above: Order Comment: Speci men Type: BLOOD SPECIMENOrdering Facility: [facility] Address: [address] [place] [address] Performed By: #### 5 7021-8 ####[facility] [id number] [place] [address] [place] Immature granulocytes/100 WBC (Bld) 1.0 % Normal [facility] Comment on above: Order Comment: Speci men Type: BLOOD SPECIMENOrdering Facility: [facility] Address: [address] [place] [address] Performed By: #### 5 7021-8 ####[facility] [id number] [place] [address] [place] Lymphocytes (Bld) [#/Vol] 0.80 10*3/uL Low 1.00-4.00 [facility] Comment on above: Order Comment: Speci men Type: BLOOD SPECIMENOrdering Facility: [facility] Address: [address] [place] [address] Performed By: #### 5 7021-8 ####[facility] [id number] [place] [address] [place] Lymphocytes/100 WBC (Bld) 11.1 % Normal [facility] Comment on above: Order Comment: Speci men Type: BLOOD SPECIMENOrdering Facility: [facility] Address: [address] [place] [address] Performed By: #### 5 7021-8 ####[facility] [id number] [address] MCH (RBC) [Entitic mass] 36.8 pg High 26.0-34.0 [facility] Comment on above: Order Comment: Speci men Type: BLOOD SPECIMENOrdering Facility: [facility] Address: [address] [place] [address] Performed By: #### 5 7021-8 ####[facility] [id number] [address] MCHC (RBC) [Mass/Vol] 34.6 g/dL Normal 30.5-36.0 [facility] Comment on above: Order Comment: Speci men Type: BLOOD SPECIMENOrdering Facility: [facility] Address: [address] [place] [address] Performed By: #### 5 7021-8 ####[facility] [id number] [address] MCV (RBC) [Entitic vol] 106.3 fL High 80.0-100.0 [facility] Comment on above: Order Comment: Speci men Type: BLOOD SPECIMENOrdering Facility: [facility] Address: [address] [place] [address] Performed By: #### 5 7021-8 ####[facility] [id number] [address] Monocytes (Bld) [#/Vol] 0.77 10*3/uL Normal <0.87 [facility] Comment on above: Order Comment: Speci men Type: BLOOD SPECIMENOrdering Facility: [facility] Address: [address] [place] [address] Performed By: #### 5 7021-8 ####[facility] [id number] [address] Monocytes/100 WBC (Bld) 10.7 % Normal [facility] Comment on above: Order Comment: Speci men Type: BLOOD SPECIMENOrdering Facility: [facility] Address: [address] [place] [address] Performed By: #### 5 7021-8 ####[facility] [id number] [place] [address] [place] Neutrophils (Bld) [#/Vol] 5.09 10*3/uL Normal 1.45-7.50 [facility] Comment on above: Order Comment: Speci men Type: BLOOD SPECIMENOrdering Facility: [facility] Address: [address] [place] [address] Performed By: #### 5 7021-8 ####[facility] [id number] [place] [address] [place] Neutrophils/100 WBC (Bld) 70.4 % Normal [facility] Comment on above: Order Comment: Speci men Type: BLOOD SPECIMENOrdering Facility: [facility] Address: [address] [place] [address] Performed By: #### 5 7021-8 ####[facility] [id number] [place] [address] [place] Nucleated RBC (Bld) [#/Vol] 10*3/uL Normal <0.01 [facility] Comment on above: Order Comment: Speci men Type: BLOOD SPECIMENOrdering Facility: [facility] Address: [address] [place] [address] Performed By: #### 5 7021-8 ####[facility] [id number] [place] [address] [place] Nucleated RBC/100 WBC (Bld) [Ratio] 0.0 /100 WBC Normal [facility] Comment on above: Order Comment: Speci men Type: BLOOD SPECIMENOrdering Facility: [facility] Address: [address] [place] [address] Performed By: #### 5 7021-8 ####[facility] [id number] [place] [address] [place] Platelet mean volume (Bld) [Entitic vol] 8.5 fL Low 9.0-12.7 [facility] Comment on above: Order Comment: Speci men Type: BLOOD SPECIMENOrdering Facility: [facility] Address: [address] [place] [address] Performed By: #### 5 7021-8 ####[facility] [id number] [address] [place] Platelets (Bld) [#/Vol] 185 10*3/uL Normal 150-400 [facility] Comment on above: Order Comment: Speci men Type: BLOOD SPECIMENOrdering Facility: [facility] Address: [address] [place] [address] Performed By: #### 5 7021-8 ####[facility] [id number] [address] [place] RBC (Bld) [#/Vol] 2.53 10*6/uL Low 4.20-6.00 [facility] Comment on above: Order Comment: Speci men Type: BLOOD SPECIMENOrdering Facility: [facility] Address: [address] [place] [address] Performed By: #### 5 7021-8 ####[facility] [id number] [address] WBC (Bld) [#/Vol] 7.22 10*3/uL Normal 3.70-11.00 [facility] Comment on above: Order Comment: Speci men Type: BLOOD SPECIMENOrdering Facility: [facility] Address: [address] [place] [address] Performed By: #### 5 7021-8 ####[facility] [id number] [address] [place] CONSULT PROGon 12-26-2024 CONSULT PROG HNO ID: [id number] Author: JIMBO NOLAN MD Service: Infectious Disease [...] and Airways Line Duration Peripheral 12/26/24 1743 [facility] Short Right Forearm 22 Gauge <1 [...] final until Authenticated by responsible provider. Normal [facility] Magnesium SerPl-mCncon 12-26 Magnesium [Mass/Vol] 2.2 mg/dL Normal 1.7-2.3 [facility] Comment on above: Order Comment: Speci men Type: BLOOD SPECIMEN Ordering Facility: [facility] Address: [address] [place] [address] Performed By: #### 2 4321-2, 18767-8 #### [facility] CLIA [id number] [address] [place] [address] [facility] NUTRITIONon 12-26-2024 NUTRITION HNO ID: [id number] Author: LUISA ARGUETA RD Service: Nutrition Therapy [...] December 26, 2024 TIME: 1:21 PM Normal [facility] PSA SerPl-mCncon 12-26-2024 Prostate specific Ag [Mass/Vol] ng/mL Normal <2.60 [facility] Comment on above: Order Comment: Speci men Type: BLOOD SPECIMENOrdering Facility: [facility] Address: [address] [place] [address] Result Comment: Wilmana angeline PSA test methodology used is the Electrochemiluminescence Immunoassay by [employer]. Total PSA values by differing methodologies cannot be interchanged. Performed By: #### 2 857-1 ####[facility] LABCLIA [id number] [place] [id number] [place] ALLIED HEALTHon 12-25-2024 ALLIED HEALTH HNO ID: [id number] Author: CASIE ANDINO RT(R) Service: Radiology Author Type: Senior System Operator Type: Allied Health Filed: 12/25/2024 23:44 Note [...] PATIENT PRESENTS WITH AN IMPLANTABLE OR ATTACHED MANAGER OF INTERNAL: No RADIOLOGY DEPARTMENT: Ultrasound PERIPHERAL IV DATA: Not applicable SIGNED BY: RT Linus(R) December 25, 2024 11:44 PM Normal [facility] Basic metabolic 2000 panelon 12-25-2024 Anion gap [Moles/Vol] 12 mmol/L Normal 8-15 [facility] Comment on above: Order Comment: Speci men Type: BLOOD SPECIMENOrdering Facility: [facility] Address: [address] [place] [address] Performed By: #### 2 132-9, 69656-0, 18576-8 ####[facility] [id number] [place] [address] [place]#### 2284-8 ####[facility] LABCLIA [id number] [place] [id number] [place] Calcium [Mass/Vol] 8.8 mg/dL Normal 8.5-10.2 [facility] Comment on above: Order Comment: Speci men Type: BLOOD SPECIMENOrdering Facility: [facility] Address: [address] [place], [place] [address] Performed By: #### 2 132-9, 01697-4, ####[facility] [id number] [place] [address] [place]#### 2284-8 ####[facility] LABCLIA [id number] [address] [address] [place] Chloride [Moles/Vol] 101 mmol/L Normal 98-107 [facility] Comment on above: Order Comment: Speci men Type: BLOOD SPECIMENOrdering Facility: [facility] Address: [address] [place] [address] Performed By: #### 2 132-9, , ####[facility] [id number] [place] [address] [place]#### 2284-8 ####[facility] LABCLIA [id number] [place] [id number] [place] CO2 [Moles/Vol] 25 mmol/L Normal 22-30 [facility] Comment on above: Order Comment: Speci men Type: BLOOD SPECIMENOrdering Facility: [facility] Address: [address] [place] [address] Performed By: #### 2 132-9, , ####[facility] [id number] [place] [address] [place]#### 2284-8 ####[facility] LABCLIA [id number] [address] [address] [place] Creatinine [Mass/Vol] 0.94 mg/dL Normal 0.73-1.22 [facility] Comment on above: Order Comment: Speci men Type: BLOOD SPECIMENOrdering Facility: [facility] Address: [address] [place], [place] [address] Performed By: #### 2 132-9, , ####[facility] [id number] [place] [address] [place]#### 2284-8 ####[facility] LABCLIA [id number] [place] [address] [place] eGFRcr SerPlBld CKD-EPI 2020 81 mL/min/1.73m??? Normal >=60 [facility] Comment on above: Order Comment: Radha charles Type: BLOOD SPECIMENOrdering Facility: [facility] Address: [address] [place] [address] Result Comment: Ekaterina mated Glomerular Filtration Rate [...] actual GFR. Performed By: #### 2 132-9, 42387-0, 52629-5 ####[facility] [id number] [place] [address] [place]#### 2284-8 ####[facility] LABCLIA [id number] [place] [address] [place] Glucose [Mass/Vol] 94 mg/dL Normal 74-99 [facility] Comment on above: Order Comment: Radha charles Type: BLOOD SPECIMENOrdering Facility: [facility] Address: [address] [place] [address] Result Comment: The [place] [employer] (ADA) provides guidance for cutoff [...] Standards of Medical Care in Diabetes 2016, [place] [employer]. Diabetes Care. 2016.39(Suppl 1). Performed By: #### 2 132-9, 02298-2, ####[facility] [id number] [place] [address] [place]#### 2284-8 ####[facility] LABCLIA [id number] [address] [address] [place] Potassium [Moles/Vol] 4.0 mmol/L Normal 3.7-5.1 [facility] Comment on above: Order Comment: Speci men Type: BLOOD SPECIMENOrdering Facility: [facility] Address: [address] [place] [address] Performed By: #### 2 132-9, , ####[facility] [id number] [place] [address] [place]#### 2284-8 ####[facility] LABCLIA [id number] [address] [address] [place] Sodium [Moles/Vol] 138 mmol/L Normal 136-144 [facility] Comment on above: Order Comment: Speci men Type: BLOOD SPECIMENOrdering Facility: [facility] Address: [address] [place] [address] Performed By: #### 2 132-9, , ####[facility] [id number] [place] [address] [place]#### 2284-8 ####[facility] LABCLIA [id number] [address] [address] [place] Urea nitrogen [Mass/Vol] 16 mg/dL Normal 9-24 [facility] Comment on above: Order Comment: Speci men Type: BLOOD SPECIMENOrdering Facility: [facility] Address: [address] [place], [place] [address] Performed By: #### 2 132-9, , ####[facility] [id number] [address] [place]#### 2284-8 ####[facility] LABCLIA [id number] [address] [place] CBC panel Auto (Bld)on 12-25 Erythrocyte distribution width (RBC) [Ratio] 12.4 % Normal 11.5-15.0 [facility] Comment on above: Order Comment: Speci men Type: BLOOD SPECIMENOrdering Facility: [facility] Address: [address] [place] [address] Performed By: #### 5 8410-2 ####[facility]IA [id number] [address] Hematocrit (Bld) [Volume fraction] 26.6 % Low 39.0-51.0 [facility] Comment on above: Order Comment: Speci men Type: BLOOD SPECIMENOrdering Facility: [facility] Address: [address] [place] [address] Performed By: #### 5 8410-2 ####[facility] [id number] [address] Hemoglobin (Bld) [Mass/Vol] 9.0 g/dL Low 13.0-17.0 [facility] Comment on above: Order Comment: Speci men Type: BLOOD SPECIMENOrdering Facility: [facility] Address: [address] [place] [address] Performed By: #### 5 8410-2 ####[facility]IA [id number] [address] MCH (RBC) [Entitic mass] 35.7 pg High 26.0-34.0 [facility] Comment on above: Order Comment: Speci men Type: BLOOD SPECIMENOrdering Facility: [facility] Address: [address] [place] [address] Performed By: #### 5 8410-2 ####[facility]ORYCLIA [id number] [place] [address] [place] MCHC (RBC) [Mass/Vol] 33.8 g/dL Normal 30.5-36.0 [facility] Comment on above: Order Comment: Speci men Type: BLOOD SPECIMENOrdering Facility: [facility] Address: [address] [place] [address] Performed By: #### 5 8410-2 ####[facility]ORY[facility]IA [id number] [address] [place] MCV (RBC) [Entitic vol] 105.6 fL High 80.0-100.0 [facility] Comment on above: Order Comment: Speci men Type: BLOOD SPECIMENOrdering Facility: [facility] Address: [address] [place] [address] Performed By: #### 5 8410-2 ####[facility]IA [id number] [address] Nucleated RBC (Bld) [#/Vol] 10*3/uL Normal <0.01 [facility] Comment on above: Order Comment: Speci men Type: BLOOD SPECIMENOrdering Facility: [facility] Address: [address] [place] [address] Performed By: #### 5 8410-2 ####[facility]ORY[facility]IA [id number] [address] [place] Platelet mean volume (Bld) [Entitic vol] 8.8 fL Low 9.0-12.7 [facility] Comment on above: Order Comment: Speci men Type: BLOOD SPECIMENOrdering Facility: [facility] Address: [address] [place] [address] Performed By: #### 5 8410-2 ####[facility]ORY[facility]IA [id number] [place] [address] [place] Platelets (Bld) [#/Vol] 201 10*3/uL Normal 150-400 [facility] Comment on above: Order Comment: Speci men Type: BLOOD SPECIMENOrdering Facility: [facility] Address: [address] [place] [address] Performed By: #### 5 8410-2 ####[facility]IA [id number] [address] [place] RBC (Bld) [#/Vol] 2.52 10*6/uL Low 4.20-6.00 [facility] Comment on above: Order Comment: Speci men Type: BLOOD SPECIMENOrdering Facility: [facility] Address: [address] [place] [address] Performed By: #### 5 8410-2 ####[facility]ORYCLIA [id number] [place] [id number] [facility] WBC (Bld) [#/Vol] 7.85 10*3/uL Normal 3.70-11.00 [facility] Comment on above: Order Comment: Speci men Type: BLOOD SPECIMENOrdering Facility: [facility] Address: [address] [place] [address] Performed By: #### 5 8410-2 ####[facility]IA [id number] [address] CONSULTon 12-25-2024 CONSULT HNO ID: [id number] Author: JIMBO NOLAN MD Service: Infectious Disease [...] pressure/discomfort. He recently underwent a TURP at [facility] on11/28/24 and had 8 days of bleeding [...] COVID-19 original vaccine, age 12+ yr, monovalent ([employer]-E96 - PURPLE TOP) 07/25/2020 08/15/2020 influenza (HD-IIV3) [...] and is negat (more content not included)... [facility] CONSULT PROGon 12-25-2024 CONSULT PROG HNO ID: [id number] Author: FOSTER FELIX RPh Service: Pharmacy Author [...] pharmacy if there are questions. Foster Felix, [facility] Normal [facility] Folate SerPl-mCncon 12-26-19 25 Folate [Mass/Vol] 15.9 ng/mL Normal >4.7 [facility] Comment on above: Order Comment: Radha charles Type: BLOOD SPECIMENOrdering Facility: [facility] Address: [address] [place] [address] Performed By: #### 2 132-9, 26595-7, 37778-6 ####[facility] [id number] [place] [address] [place]#### 2284-8 ####[facility] LABCLIA [id number] [place] [address] [place] [facility] Magnesium [Mass/Vol] 1.8 mg/dL Normal 1.7-2.3 [facility] Comment on above: Order Comment: Radha charles Type: BLOOD SPECIMENOrdering Facility: [facility] Address: [address] [place] [address] Performed By: #### 2 132-9, 97216-6, ####[facility] [id number] [place] [address] [place]#### 2284-8 ####[facility] LABCLIA [id number] [place] [address] [place] US KIDNEY/BLADDERon 12-26-19 [...] upon the base of the urinary bladder. Managed Care Provider: PSCB Transcribe Date/Time: Dec 26 2024 8:13A Dictated by : DEREK MOSHER MD This examination was interpreted and the report reviewed and electronically signed by: DEREK MOSHER MD on Dec 26 2024 8:16AM EST [id number] Normal [facility] Vit B12 [facility] Cobalamin (Vitamin B12) [Mass/Vol] 423 pg/mL Normal 232-1245 [facility] Comment on above: Order Comment: Speci men Type: BLOOD SPECIMENOrdering Facility: [facility] Address: [address] [place] [address] Performed By: #### 2 132-9, 83210-6, 94835-7 ####[facility]ATORYCLIA [id number] [place] [address] [place]#### 2284-8 ####[facility] LABCLIA [id number] [place] [id number] [facility] 12-24-2024 ALLIED HEALTH HNO ID: [id number] Author: JOSELUIS MELISSA RT(R) Service: Radiology Author Type: Senior System Operator Type: Allied Health Filed: 12/24/2024 20:33 Note [...] PATIENT PRESENTS WITH AN IMPLANTABLE OR ATTACHED MANAGER OF INTERNAL: No RADIOLOGY DEPARTMENT: General X-ray: Exam(s) Completed: Upper Extremity X-Ray(s): Shoulder, AP / TRUE AP right PERIPHERAL IV DATA: Not applicable SIGNED BY: RT Hayder(R) December 24, 2024 8:33 PM [facility] ALLIED HEALTH HNO ID: [id number] Author: CARLEY ABARCA RT(R) Service: Radiology Author [...] PATIENT PRESENTS WITH AN IMPLANTABLE OR ATTACHED MANAGER OF INTERNAL: No RADIOLOGY DEPARTMENT: General X-ray: Exam(s) Completed: Upper Extremity X-Ray(s): Shoulder, AP / TRUE AP / Y VIEW right PERIPHERAL IV DATA: Not applicable SIGNED BY: RT Kendell(R) December 24, 2024 8:28 PM [facility] Bacteria Bld Culton 12-25-19 25 Bacteria identified Cx Nom (Bld) CULTURE, BLOOD: No growth 5 days [facility] Comment on above: Performed By: #### 6 00-7 ####[facility] LABCLIA [id number] [address] [facility] Bacteria Ur Culton 5 Bacteria identified Cx [...] , Intermediate >32 , Resistant >64 Abnormal [facility] Comment on above: Performed By: #### 6 30-4 ####[facility] LABCLIA [id number] [address]#### [address]-1 ####[facility] [id number] [address] [place] CBC W Auto Differential pane l (Bld)on 12-24-2024 Basophils (Bld) [#/Vol] 0.07 10*3/uL Normal <0.11 [facility] Comment on above: Order Comment: Speci men Type: BLOOD SPECIMENOrdering Facility: [facility] Address: [address] [place] [address] Performed By: #### 5 7021-8 ####[facility]ORYCLIA [id number] [address] [place] Basophils/100 WBC (Bld) 0.8 % Normal [facility] Comment on above: Order Comment: Speci men Type: BLOOD SPECIMENOrdering Facility: [facility] Address: [address] [place] [address] Performed By: #### 5 7021-8 ####[facility]ORATORYCLIA [id number] [address] Differential cell count method Nom (Bld) Auto Normal [facility] Comment on above: Order Comment: Speci men Type: BLOOD SPECIMENOrdering Facility: [facility] Address: [address] [place], [place] [address] Performed By: #### 5 7021-8 ####[facility]ORATORYCLIA [id number] [address] [place] Eosinophils (Bld) [#/Vol] 0.17 10*3/uL Normal <0.46 [facility] Comment on above: Order Comment: Speci men Type: BLOOD SPECIMENOrdering Facility: [facility] Address: [address] [place] [address] Performed By: #### 5 7021-8 ####[facility]ORATORYCLIA [id number] [address] Eosinophils/100 WBC (Bld) 2.0 % Normal [facility] Comment on above: Order Comment: Speci men Type: BLOOD SPECIMENOrdering Facility: [facility] Address: [address] [place] [address] Performed By: #### 5 7021-8 ####[facility] LABORATORYCLIA [id number] [address] Erythrocyte distribution width (RBC) [Ratio] 12.6 % Normal 11.5-15.0 [facility] Comment on above: Order Comment: Speci men Type: BLOOD SPECIMENOrdering Facility: [facility] Address: [address] [place] [address] Performed By: #### 5 7021-8 ####[facility]ORATORYCLIA [id number] [address] Hematocrit (Bld) [Volume fraction] 28.6 % Low 39.0-51.0 [facility] Comment on above: Order Comment: Speci men Type: BLOOD SPECIMENOrdering Facility: [facility] Address: [address] [place] [address] Performed By: #### 5 7021-8 ####[facility]ORATORYCLIA [id number] [address] Hemoglobin (Bld) [Mass/Vol] 9.7 g/dL Low 13.0-17.0 [facility] Comment on above: Order Comment: Speci men Type: BLOOD SPECIMENOrdering Facility: [facility] Address: [address] [place] [address] Performed By: #### 5 7021-8 ####[facility] LABORATORYCLIA [id number] [place] [address] [place] Immature granulocytes (Bld) [#/Vol] 0.07 10*3/uL Normal <0.10 [facility] Comment on above: Order Comment: Speci men Type: BLOOD SPECIMENOrdering Facility: [facility] Address: [address] [place] [address] Performed By: #### 5 7021-8 ####[facility] LABORATORYCLIA [id number] [place] [address] [place] Immature granulocytes/100 WBC (Bld) 0.8 % Normal [facility] Comment on above: Order Comment: Speci men Type: BLOOD SPECIMENOrdering Facility: [facility] Address: [address] [place] [address] Performed By: #### 5 7021-8 ####[facility] LABORATORYCLIA [id number] [place] [address] [place] Lymphocytes (Bld) [#/Vol] 0.79 10*3/uL Low 1.00-4.00 [facility] Comment on above: Order Comment: Speci men Type: BLOOD SPECIMENOrdering Facility: [facility] Address: [address] [place] [address] Performed By: #### 5 7021-8 ####[facility] LABORATORYCLIA [id number] [address] [place] Lymphocytes/100 WBC (Bld) 9.2 % Normal [facility] Comment on above: Order Comment: Speci men Type: BLOOD SPECIMENOrdering Facility: [facility] Address: [address] [place] [address] Performed By: #### 5 7021-8 ####[facility] LABORATORYCLIA [id number] [place] [address] [place] MCH (RBC) [Entitic mass] 35.7 pg High 26.0-34.0 [facility] Comment on above: Order Comment: Speci men Type: BLOOD SPECIMENOrdering Facility: [facility] Address: [address] [place] [address] Performed By: #### 5 7021-8 ####[facility] LABORATORYCLIA [id number] [place] [address] [place] MCHC (RBC) [Mass/Vol] 33.9 g/dL Normal 30.5-36.0 [facility] Comment on above: Order Comment: Speci men Type: BLOOD SPECIMENOrdering Facility: [facility] Address: [address] [place] [address] Performed By: #### 5 7021-8 ####[facility] LABORATORYCLIA [id number] [place] [address] [place] MCV (RBC) [Entitic vol] 105.1 fL High 80.0-100.0 [facility] Comment on above: Order Comment: Speci men Type: BLOOD SPECIMENOrdering Facility: [facility] Address: [address] [place] [address] Performed By: #### 5 7021-8 ####[facility] LABORATORYCLIA [id number] [place] [address] [place] Monocytes (Bld) [#/Vol] 0.88 10*3/uL High <0.87 [facility] Comment on above: Order Comment: Speci men Type: BLOOD SPECIMENOrdering Facility: [facility] Address: [address] [place] [address] Performed By: #### 5 7021-8 ####[facility] LABORATORYCLIA [id number] [address] [place] Monocytes/100 WBC (Bld) 10.3 % Normal [facility] Comment on above: Order Comment: Speci men Type: BLOOD SPECIMENOrdering Facility: [facility] Address: [address] [place] [address] Performed By: #### 5 7021-8 ####[facility] LABORATORYCLIA [id number] [place] [address] [place] Neutrophils (Bld) [#/Vol] 6.58 10*3/uL Normal 1.45-7.50 [facility] Comment on above: Order Comment: Speci men Type: BLOOD SPECIMENOrdering Facility: [facility] Address: [address] [place] [address] Performed By: #### 5 7021-8 ####LINK LABORATORYCLIA [id number] [address] Neutrophils/100 WBC (Bld) 76.9 % Normal [facility] Comment on above: Order Comment: Speci men Type: BLOOD SPECIMENOrdering Facility: [facility] Address: [address] [place] [address] Performed By: #### 5 7021-8 ####LINK LABORATORYCLIA [id number] [place] [address] [place] Nucleated RBC (Bld) [#/Vol] 10*3/uL Normal <0.01 [facility] Comment on above: Order Comment: Speci men Type: BLOOD SPECIMENOrdering Facility: [facility] Address: [address] [place] [address] Performed By: #### 5 7021-8 ####[facility] LABORATORYCLIA [id number] [address] [place] Nucleated RBC/100 WBC (Bld) [Ratio] 0.0 /100 WBC Normal [facility] Comment on above: Order Comment: Speci men Type: BLOOD SPECIMENOrdering Facility: [facility] Address: [address] [place] [address] Performed By: #### 5 7021-8 ####[facility] LABORATORYCLIA [id number] [place] [address] [place] Platelet mean volume (Bld) [Entitic vol] 8.7 fL Low 9.0-12.7 [facility] Comment on above: Order Comment: Speci men Type: BLOOD SPECIMENOrdering Facility: [facility] Address: [address] [place] [address] Performed By: #### 5 7021-8 ####[facility] LABORATORYCLIA [id number] [place] [address] [place] Platelets (Bld) [#/Vol] 202 10*3/uL Normal 150-400 [facility] Comment on above: Order Comment: Speci men Type: BLOOD SPECIMENOrdering Facility: [facility] Address: [address] [place] [address] Performed By: #### 5 7021-8 ####[facility] LABORATORYCLIA [id number] [address] RBC (Bld) [#/Vol] 2.72 10*6/uL Low 4.20-6.00 [facility] Comment on above: Order Comment: Speci men Type: BLOOD SPECIMENOrdering Facility: [facility] Address: [address] [place] [address] Performed By: #### 5 7021-8 ####[facility] LABORATORYCLIA [id number] [address] WBC (Bld) [#/Vol] 8.56 10*3/uL Normal 3.70-11.00 [facility] Comment on above: Order Comment: Speci men Type: BLOOD SPECIMENOrdering Facility: [facility] Address: [address] [place] [address] Performed By: #### 5 7021-8 ####[facility] LABORATORYCLIA [id number] [address] CNPMelisa 12-24-2024 CNPN Telephone (CRISTHIAN) -- ZACHARY SHORT ([id number]) 1945 M Date Time Provider Department 12/24/24 [...] would be for him to go to /[facility]. Mario Ugalde RN Allergies As of Date: 12/24/2024 Noted Allergy Reaction RAMDANIELEON 05/22/2024 1 - Mental Status Change Date Reviewed: 12/17/2024 Reviewed by: Nini Sheriff APRN.HARD METALS HAND ENGRAVER - Fully Assessed Reason for Visit: Patient [...] - azelastine 0.1% nasal spray Use 1 Goddard in each nostril two times a day. - lisinopril-hydroCHLOROthia zide (ZESTORETIC) 10-12.5 mg per tablet Take 1 tablet by mouth once daily. - ergocalciferol 50,000 unit capsule (VITAMIN D2, DRISDOL) Take 1 capsule by mouth two times a week. TO BE TAKEN ORALLY DIRECTED. Take 1 tablet by mouth twice weekly [id number], then decrease to 1 tablet weekly. - [...] Encounter Status:Closed by MARIO UGALDE on 12/24/24 [facility] CONSULT PROGon 12-24-2024 CONSULT PROG HNO ID: [id number] Author: FOSTER FELIX RPh Service: Pharmacy Author [...] have any questions, please contact pharmacy at [phone]. Age: [age] year old Allergies: ALLERGIES Allergen [...] Levels: No results found for: BETHANIE Felix [facility] metabolic 2000 panelon 12-24-2024 Albumin [Mass/Vol] 3.9 g/dL Normal 3.9-4.9 [facility] Comment on above: Order Comment: Speci men Type: BLOOD SPECIMEN [facility]ing Facility: [facility] Address: [address] [place] [address] Performed By: #### 2 4321-2, #### [facility] CLIA [id number] [address] [place] [address] [place] ALP [Catalytic activity/Vol] 87 U/L Normal 38-113 [facility] Comment on above: Order Comment: Speci men Type: BLOOD SPECIMEN Ordering Facility: [facility] Address: [address] [place] [address] Performed By: #### 2 432-2, #### [facility] CLIA [id number] [address] [place] [address] [place] ALT [Catalytic activity/Vol] 14 U/L Normal 10-54 [facility] Comment on above: Order Comment: Speci men Type: BLOOD SPECIMEN Ordering Facility: [facility] Address: [address] [place] [address] Performed By: #### 2 4321-2, #### [facility] CLIA [id number] [address] [place] [address] [place] Anion gap [Moles/Vol] 13 mmol/L Normal 8-15 [facility] Comment on above: Order Comment: Speci men Type: BLOOD SPECIMEN Ordering Facility: [facility] Address: [address] [place] [address] Performed By: #### 2 4321-2, #### [facility] CLIA [id number] [address] [place] [address] [place] AST [Catalytic activity/Vol] 19 U/L Normal 14-40 [facility] Comment on above: Order Comment: Speci men Type: BLOOD SPECIMEN Ordering Facility: [facility] Address: [address] [place] [address] Performed By: #### 2 4321-2, #### [facility] CLIA [id number] [address] [place] [address] [place] Bilirubin [Mass/Vol] 0.2 mg/dL Normal 0.2-1.3 [facility] Comment on above: Order Comment: Speci men Type: BLOOD SPECIMEN Ordering Facility: [facility] Address: [address] [place] [address] Performed By: #### 2 4321-2, #### [facility] CLIA [id number] [address] [place] [address] [place] Calcium [Mass/Vol] 9.1 mg/dL Normal 8.5-10.2 [facility] Comment on above: Order Comment: Speci men Type: BLOOD SPECIMEN Ordering Facility: [facility] Address: [address] [place] [address] Performed By: #### 2 4321-2, #### [facility] CLIA [id number] [address] [place] [address] [place] Chloride [Moles/Vol] 99 mmol/L Normal 98-107 [facility] Comment on above: Order Comment: Speci men Type: BLOOD SPECIMEN Ordering Facility: [facility] Address: [address] [place] [address] Performed By: #### 2 432-2, #### [facility] CLIA [id number] [address] [place] [address] [place] CO2 [Moles/Vol] 23 mmol/L Normal 22-30 [facility] Comment on above: Order Comment: Speci men Type: BLOOD SPECIMEN Ordering Facility: [facility] Address: [address] [place] [address] Performed By: #### 2 4321-2, #### [facility] CLIA [id number] [address] [place] [address] [place] Creatinine [Mass/Vol] 1.08 mg/dL Normal 0.73-1.22 [facility] Comment on above: Order Comment: Speci men Type: BLOOD SPECIMEN Ordering Facility: [facility] Address: [address] [place] [address] Performed By: #### 2 4321-2, #### [facility] CLIA [id number] [address] [place] [address] [place] eGFRcr SerPlBld CKD-EPI 2020 69 mL/min/1.73m??? Normal >=60 [facility] Comment on above: Order Comment: Radha charles Type: BLOOD SPECIMEN Ordering Facility: [facility] Address: [address] [place] [address] Result Comment: Ekaterina mated Glomerular Filtration Rate [...] GFR. Performed By: #### 2 432-2, #### [facility] CLIA [id number] [address] [place] [address] [place] Glucose [Mass/Vol] 98 mg/dL Normal 74-99 [facility] Comment on above: Order Comment: Radha charles Type: BLOOD SPECIMEN Ordering Facility: [facility] Address: [address] [place] [address] Result Comment: The [place] [employer] (ADA) provides guidance for cutoff [...] Standards of Medical Care in Diabetes 2016, [place] [employer]. Diabetes Care. 2016.39(Suppl 1). Performed By: #### 2 4321-2, #### [facility] CLIA [id number] [address] [place] [address] [place] Potassium [Moles/Vol] 4.7 mmol/L Normal 3.7-5.1 [facility] Comment on above: Order Comment: Speci men Type: BLOOD SPECIMEN Ordering Facility: [facility] Address: [address] [place] [address] Performed By: #### 2 4321-2, #### [facility] CLIA [id number] [address] [place] Protein [Mass/Vol] 7.5 g/dL Normal 6.3-8.0 [facility] Comment on above: Order Comment: Speci men Type: BLOOD SPECIMEN Ordering Facility: [facility] Address: [address] [place] [address] Performed By: #### 2 4321-2, #### [facility] CLIA [id number] [address] [place] [address] [place] Sodium [Moles/Vol] 135 mmol/L Low 136-144 [facility] Comment on above: Order Comment: Speci men Type: BLOOD SPECIMEN Ordering Facility: [facility] Address: [address] [place] [address] Performed By: #### 2 4321-2, #### [facility] CLIA [id number] [address] [place] [address] [place] Urea nitrogen [Mass/Vol] 20 mg/dL Normal 9-24 [facility] Comment on above: Order Comment: Speci men Type: BLOOD SPECIMEN Ordering Facility: [facility] Address: [address] [place] [address] Performed By: #### 2 4321-2, #### [facility] CLIA [id number] [address] [place] [address] [place] ED NOTEon 12-24-2024 ED NOTE HNO ID: [id number] Author: LUCHO MARES RN Service: Nursing Author Type: Registered Nurse Type: ED Notes Filed: 12/24/2024 18:45 Note Text: Assumed care of patient at this time. 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 [facility] ED Triage Noteon 12-24-2024 ED Triage Note HNO ID: [id number] Author: ISAMAR GARCIA MD Service: Emergency Medicine [...] from bedside clinician. SIGNATURE: Isamar Garcia MD [facility] EKGon 12-24-2024 Electrocardiogram Ventricular Rate : 6 1 BPM Atrial Rate : 61 BPM P-R Interval : 196 ms QRS Duration : 132 ms Q-T Interval : 420 ms QTC Calculation(Bazett) : 422 ms Calculated P [place] : 54 degrees Calculated R [place] : -47 degrees Calculated T [place] : 32 degrees NORMAL SINUS RHYTHM Confirmed by MELONIE HARRINGTON MD ([id number]) on 12/25/2024 1:10:34 AM NAME : ZACHARY SHORT PID : [id number] : 1945 Gender : Male Race : ORD : Procedure Date : Dec 24 2024 19:19:55 Edit Date : Dec 25 2024 01:10:36 Diagnosis: NORMAL SINUS RHYTHM Confirmed by MELONIE HARRINGTON MD ([id number]) on 12/25/2024 1:10:34 AM Test Reason : Location : 1 : ER ED Overread By : MELONIE HARRINGTON MD Edited By : MELONIE HARRINGTON MD Referred By : , Acquired by : leanne, Normal [facility] Ferritin SerPl-mCncon 2024 Ferritin [Mass/Vol] 261.4 ng/mL Normal 30.3-565.7 [facility] Comment on above: Order Comment: Speci men Type: BLOOD SPECIMEN Ordering Facility: [facility] Address: [address] [facility] [place] [id number] Performed By: #### 2 4321-2, 42301-1 #### [facility] CLIA [id number] [address] [place] [address] [facility] HISTORY PHYSICALon HISTORY PHYSICAL HNO ID: [id number] Author: ROCHELLE MEDELLIN PA-C Service: Hospital Medicine Author Type: Physician Ladle Liner Type: H&P Filed: 12/24/2024 22:53 Note Text: [...] Ailin Pierson MD NIGHT AND WEEKEND COVERAGE: [facility]: Days: [phone], please page attending physician. Nights: [phone], please page [facility] Night coverage pager [phone]. Subjective CHIEF COMPLAINT: blood in urine HPI: [...] pressure/discomfort. He recently underwent a TURP at [facility] on11/28/24 and had 8 days of bleeding thereafter. He has been having low back pain since a fall around [place] 2023 made worse by the fall today [...] on Vancomycin and Zosyn. Patient admitted to [facility] under the hospital medicine service for [...] nasal spray No No Sig: Use 1 Goddard in each nostril two times a day. [...] Take 1 tablet by mouth twice weekly [id number], then decrease to 1 tablet weekly. finaster (more content not included)... Normal [facility] Iron and Iron binding capaci ty panelon 12-24-2024 Iron [Mass/Vol] 28 ug/dL Low 41-186 [facility] Comment on above: Order Comment: Speci men Type: BLOOD SPECIMEN Ordering Facility: [facility] Address: [address] [place] [address] Performed By: #### 5 0190-8 #### [facility] CLIA [id number] [address] [place] Iron binding capacity [Mass/Vol] 216 ug/dL Low 232-386 [facility] Comment on above: Order Comment: Speci men Type: BLOOD SPECIMEN Ordering Facility: [facility] Address: [address] [place] [address] Performed By: #### 5 0190-8 #### [facility] CLIA [id number] [address] [place] Iron/TIBC [Molar ratio] 13.0 % Low 15.0-57.0 [facility] Comment on above: Order Comment: Speci men Type: BLOOD SPECIMEN Ordering Facility: [facility] Address: [address] [place] [address] Performed By: #### 5 0190-8 #### [facility] CLIA [id number] [address] [place] [address] [place] Magnesium SerPl-mCncon 12-24 Magnesium [Mass/Vol] 1.9 mg/dL Normal 1.7-2.3 [facility] Comment on above: Order Comment: Speci men Type: BLOOD SPECIMEN Ordering Facility: [facility] Address: [address] [place] [address] Performed By: #### 2 4321-2, 56762-5 #### [facility] CLIA [id number] [address] [place] [address] [place] SEPSIS LACTATE W/ REFLEX (IN ITIAL)on 12-24-2024 Lactate [Moles/Vol] 0.9 mmol/L Normal 0.5-2.0 [facility] Comment on above: Order Comment: Speci men Type: BLOOD SPECIMENOrdering Facility: [facility] Address: [address] [place] [address] Performed By: #### S LACTR ####[facility]ORATORYCLIA [id number] [address] [place] Urinalysis complete panel (U )on 12-24-2024 Bacteria LM.HPF (Urine sed) [#/Area] Many Abnormal None Seen [facility] Comment on above: Order Comment: Speci men Type: URINE SPECIMENOrdering Facility: [facility] Address: [address] [place] [address] Performed By: #### 6 30-4 ####[facility] LABCLIA [id number] [place] [address] [place]#### 64055-3 ####[facility]ORY[facility] [id number] [place] [address] [place] Bilirubin Ql (U) Negative Normal Negative [facility] Comment on above: Order Comment: Speci men Type: URINE SPECIMENOrdering Facility: [facility] [facility] Address: [address] [place] [address] Performed By: #### 6 30-4 ####[facility] LABCLIA [id number] [address] [place] 71234-6 ####[facility] [id number] [address] [place] Clarity (Unsp spec) Cloudy Abnormal Clear [facility] Comment on above: Order Comment: Speci men Type: URINE SPECIMENOrdering Facility: [facility] Address: [address] [place] [address] Performed By: #### 6 30-4 ####[facility] LABCLIA [id number] [place] [address] [place] [facility] [place]#### 35484-6 ####[facility] [id number] [address] [place] Color (U) Yellow Normal Yellow [facility] Comment on above: Order Comment: Speci men Type: URINE SPECIMENOrdering Facility: [facility] Address: [address] [place] [address] Performed By: #### 6 30-4 ####[facility] LABCLIA [id number] [place] [address] [place]#### 48501-9 ####[facility]ORATORYCLIA [id number] [place] [address] [place] Epithelial cells LM.HPF (Urine sed) [#/Area] Few Normal [facility] Comment on above: Order Comment: Speci men Type: URINE SPECIMENOrdering Facility: [facility] Address: [address] [place] [address] Performed By: #### 6 30-4 ####[facility] LABCLIA [id number] [place] [address] [place]#### 65786-7 ####[facility] LABORATORYCLIA [id number] [place] [address] [place] Glucose Test strip (U) [Mass/Vol] Negative Normal Negative [facility] Comment on above: Order Comment: Speci men Type: URINE SPECIMENOrdering Facility: [facility] Address: [address] [place] [address] Performed By: #### 6 30-4 ####[facility] LABCLIA [id number] [place] [address] [place]#### 27260-8 ####[facility]ORATORYCLIA [id number] [place] [address] [place] Hemoglobin Ql (U) 2+ Abnormal Negative [facility] Comment on above: Order Comment: Speci men Type: URINE SPECIMENOrdering Facility: [facility] Address: [address] [place], [place] [address] Performed By: #### 6 30-4 ####[facility] LABCLIA [id number] [place] [address] [place]#### 23221-3 ####[facility] LABORATORYCLIA [id number] [place] [address] [place] Ketones Ql (U) Negative Normal Negative [facility] Comment on above: Order Comment: Speci men Type: URINE SPECIMENOrdering Facility: [facility] Address: [address] [place] [address] Performed By: #### 6 30-4 ####[facility] LABCLIA [id number] [place] [address] [place]#### 42043-6 ####[facility] LABORATORYCLIA [id number] [place] [address] [place] Leukocyte esterase Test strip Ql (U) 1+ Abnormal Negative [facility] Comment on above: Order Comment: Speci men Type: URINE SPECIMENOrdering Facility: [facility] Address: [address] [place] [address] Performed By: #### 6 30-4 ####[facility] LABCLIA [id number] [place] [address] [place]#### 58471-0 ####[facility]ORATORYCLIA [id number] [place] [address] [place] Nitrite Ql (U) Positive Abnormal Negative [facility] Comment on above: Order Comment: Speci men Type: URINE SPECIMENOrdering Facility: [facility] Address: [address] [place] [address] Performed By: #### 6 30-4 ####[facility] LABCLIA [id number] [place] [address] [place]#### 92965-9 ####[facility] LABORATORYCLIA [id number] [place] [address] [place] pH (U) 6.0 [pH] Normal 5.0-8.0 [facility] Comment on above: Order Comment: Speci men Type: URINE SPECIMENOrdering Facility: [facility] Address: [address] [place] [address] Performed By: #### 6 30-4 ####[facility] LABCLIA [id number] [place] [address] [place]#### 38998-2 ####[facility] LABORATORYCLIA [id number] [place] [address] [place] Protein (U) [Mass/Vol] 3+ Abnormal Negative [facility] Comment on above: Order Comment: Speci men Type: URINE SPECIMENOrdering Facility: [facility] Address: [address] [place] [address] Performed By: #### 6 30-4 ####[facility] LABCLIA [id number] [place] [address] [place]#### 36329-3 ####[facility]ORYCLIA [id number] [place] [address] [place] RBC LM.HPF (Urine sed) [#/Area] 6-10 /HPF Abnormal 0-3 /HPF [facility] Comment on above: Order Comment: Speci men Type: URINE SPECIMENOrdering Facility: [facility] Address: [address] [place] [address] Performed By: #### 6 30-4 ####[facility] LABCLIA [id number] [place] [address] [place]#### 59606-6 ####[facility]ORYCLIA [id number] [place] [address] [place] Specific gravity (U) [Rel density] 1.025 Normal 1.005-1.030 [facility] Comment on above: Order Comment: Speci men Type: URINE SPECIMENOrdering Facility: [facility] Address: [address] [place] [address] Performed By: #### 6 30-4 ####[facility] LABCLIA [id number] [place] [address] [place]#### 09911-6 ####[facility]ORYCLIA [id number] [place] [address] [place] Urobilinogen Ql (U) 0.2 EU/dL Normal 0.2-1.0 EU/dL [facility] Comment on above: Order Comment: Speci men Type: URINE SPECIMENOrdering Facility: [facility] Address: [address] [place] [address] Performed By: #### 6 30-4 ####[facility] LABCLIA [id number] [address] [place]#### 78461-5 ####[facility]ATORYCLIA [id number] [place] [address] [place] WBC LM.HPF (Urine sed) [#/Area] /[HPF] Abnormal 0-5 /HPF [facility] Comment on above: Order Comment: Speci men Type: URINE SPECIMENOrdering Facility: [facility] Address: [address] [place] [address] Performed By: #### 6 30-4 ####[facility] LABCLIA [id number] [address] [place]#### 23670-4 ####[facility]ORATORYCLIA [id number] [address] [place] XR SHLDR >/=3V [...] fracture. Degenerative disease of the right shoulder. Managed Care Provider: ROCÍO Transcribe Date/Time: Dec 24 2024 8:43P Dictated by : SANTHOSH GUEVARA MD This examination was interpreted and the report reviewed and electronically signed by: SANTHOSH GUEVARA MD on Dec 24 2024 8:44PM EST [id number] [facility] CT CHEST WO IVCONon 12-20-19 CT CHEST WO IVCON * * *Final Report* * * DATE OF EXAM: Dec 19 2024 11:51AM [facility] 0541 - CT CHEST WO IVCON [...] be communicated with the ordering provider via [employer] staff message or phone message by [facility] [employer] within 2 business days of report finalization. --END OF FINDING-- Managed Care Provider: PSCB Transcribe Date/Time: Dec 27 2024 4:13P Dictated by : SULTANA GUZMÁN MD This examination was interpreted and the report reviewed and electronically signed by: SULTANA GUZMÁN MD on Dec 27 2024 4:24PM EST [id number] ACTIONABLE Invalid Interpretation Code [facility] Jluis 12-18-2024 HUMA Telephone (UROLMD) -- ZACHARY SHORT ([id number]) 1945 M Date Time Provider Department 12/18/24 JUAN BLANTON JR UROLMD During your visit today, we recorded the following information about you: Destinee Cloud RN 12/18/2024 1:23 PM Addendum Patient calling and had the Medicare Outpatient Observation notice. I called back and gave billing number to patient. Left message about billing # [phone]. Allergies As of Date: 12/18/2024 Noted Allergy Reaction RAMELTEON 05/22/2024 1 - Mental Status Change Date Reviewed: 12/17/2024 Reviewed by: Nini Sheriff APRN.[employer] HAND ENGRAVER - Fully Assessed Prescriptions as of 12/18/2024 [...] - azelastine 0.1% nasal spray Use 1 [place] in each nostril two times a day. - lisinopril-hydroCHLOROthia zide (ZESTORETIC) 10-12.5 mg per tablet Take 1 tablet by mouth once daily. - ergocalciferol 50,000 unit capsule (VITAMIN D2, DRISDOL) Take 1 capsule by mouth two times a week. TO BE TAKEN ORALLY DIRECTED. Take 1 tablet by mouth twice weekly [id number], then decrease to 1 tablet weekly. - [...] Status:Closed by DESTINEE CLOUD on 12/18/24 Normal [facility] Basic metabolic 2000 panelon 12-11-2024 Anion gap [Moles/Vol] 11 mmol/L 8 - 15 mmol/L [facility] Calcium [Mass/Vol] 9.1 mg/dL 8.5 - 10. 2 mg/dL [facility] Chloride [Moles/Vol] 103 mmol/L 98 - 10 7 mmol/L [facility] CO2 [Moles/Vol] 23 mmol/L 22 - 30 mmol/L [facility] Creatinine [Mass/Vol] 0.86 mg/dL 0.73 - 1.22 mg/dL [facility] GFR/1.73 sq M.predicted among non-blacks MDRD (S/P/Bld) [Vol rate/Area] 87 mL/min/{1.73_m2} - PINF [facility] Comment on above: Estimated Glomerular Filtration Rate [...] [Mass/Vol] 98 mg/dL 74 - 99 mg/dL [facility] Comment on above: The [place] Di[employer] Association (ADA) provides guidance for [...] Standards of Medical Care in Diabetes 2016, [place] [employer]. Diabetes Care. 2016.39(Suppl 1). Interpretation and review of laboratory results Normal [facility] Potassium [Moles/Vol] 4.5 mmol/L 3.7 - 5.1 mmol/L [facility] Sodium [Moles/Vol] 137 mmol/L 136 - 144 mmol/L [facility] Urea nitrogen [Mass/Vol] 14 mg/dL 9 - 24 mg/dL [facility] Anion gap [Moles/Vol] 11 mmol/L Normal 8-15 [facility] Comment on above: Order Comment: Speci men Type: URINE SPECIMEN [facility] Facility: [facility] Address: [address] [place] [address] Performed By: #### U A #### [facility] CLIA [id number] [address] [place] [address] [place] Calcium [Mass/Vol] 9.1 mg/dL Normal 8.5-10.2 [facility] Comment on above: Order Comment: Speci men Type: URINE SPECIMEN Ordering Facility: [facility] Address: [address] [place] [address] Performed By: #### U A #### [facility] CLIA [id number] [address] [place] [address] [place] Chloride [Moles/Vol] 103 mmol/L Normal 98-[address] [facility] Comment on above: Order Comment: Speci men Type: URINE SPECIMEN Ordering Facility: [facility] Address: [address] [place] [address] Performed By: #### U A #### [facility] CLIA [id number] [address] [place] [address] [place] CO2 [Moles/Vol] 23 mmol/L Normal 22-30 [facility] Comment on above: Order Comment: Speci men Type: URINE SPECIMEN Ordering Facility: [facility] Address: [address] [place] [address] Performed By: #### U A #### [facility] CLIA [id number] [address] [place] [address] [place] Creatinine [Mass/Vol] 0.86 mg/dL Normal 0.73-1.22 [facility] Comment on above: Order Comment: Speci men Type: URINE SPECIMEN Ordering Facility: [facility] Address: [address] [place] [address] Performed By: #### U A #### [facility] CLIA [id number] [address] [place] [address] [place] eGFRcr SerPlBld CKD-EPI 2020 87 mL/min/1.73m??? Normal >=60 [facility] Comment on above: Order Comment: Speci men Type: URINE SPECIMEN Ordering Facility: [facility] Address: [address] [place] [address] Result Comment: Ekaterina mated Glomerular Filtration Rate [...] GFR. Performed By: #### U A #### [facility] CLIA [id number] [address] [place] [address] [place] Glucose [Mass/Vol] 98 mg/dL Normal 74-99 [facility] Comment on above: Order Comment: Speci men Type: URINE SPECIMEN Ordering Facility: [facility] Address: [address] [place] [address] Result Comment: The [place] Diabetes Association (ADA) provides guidance for cutoff [...] Standards of Medical Care in Diabetes 2016, [place] [employer]. Diabetes Care. 2016.39(Suppl 1). Performed By: #### U A #### [facility] CLIA [id number] [address] [place] [address] [place] Potassium [Moles/Vol] 4.5 mmol/L Normal 3.7-5.1 [facility] Comment on above: Order Comment: Speci men Type: URINE SPECIMEN Ordering Facility: [facility] Address: [address] [place] [address] Performed By: #### U A #### [facility] CLIA [id number] [address] [place] [address] [place] Sodium [Moles/Vol] 137 mmol/L Normal 136-144 [facility] Comment on above: Order Comment: Speci men Type: URINE SPECIMEN Ordering Facility: [facility] Address: [address] [place] [address] Performed By: #### U A #### [facility] CLIA [id number] [address] [place] [address] [place] Urea nitrogen [Mass/Vol] 14 mg/dL Normal 9-24 [facility] Comment on above: Order Comment: Speci men Type: URINE SPECIMEN Ordering Facility: [facility] Address: [address] [place] [address] Performed By: #### U A #### [facility] CLIA [id number] [address] [place] [address] [place] CBC W Auto Differential pane l (Bld)on 12-11-2024 Basophils (Bld) [#/Vol] 0.07 10*3/uL [facility] Basophils/100 WBC (Bld) 0.9 % [facility] Differential cell count method Nom (Bld) Auto [facility] Eosinophils (Bld) [#/Vol] 0.32 10*3/uL [facility] Eosinophils/100 WBC (Bld) 4.1 % [facility] Erythrocyte distribution width (RBC) [Ratio] 12.9 % 11.5 - 15.0 % [facility] Hematocrit (Bld) [Volume fraction] 31.6 % Low 39.0 - 51.0 % [facility] Hemoglobin (Bld) [Mass/Vol] 10.4 g/dL Low 13.0 - 17.0 g/dL [facility] Immature granulocytes (Bld) [#/Vol] 0.04 10*3/uL [facility] Immature granulocytes/100 WBC (Bld) 0.5 % [facility] Interpretation and review of laboratory results Abnormal [facility] Lymphocytes (Bld) [#/Vol] 1.02 10*3/uL [facility] Lymphocytes/100 WBC (Bld) 13.1 % [facility] MCH (RBC) [Entitic mass] 36 pg High 26.0 - 34.0 pg [facility] MCHC (RBC) [Mass/Vol] 32.9 g/dL 30.5 - 36.0 g/dL [facility] MCV (RBC) [Entitic vol] 109.3 fL High 80.0 - 100.0 fL [facility] Monocytes (Bld) [#/Vol] 0.71 10*3/uL [facility] Monocytes/100 WBC (Bld) 9.1 % [facility] Neutrophils (Bld) [#/Vol] 5.6 10*3/uL [facility] Neutrophils/100 WBC (Bld) 72.3 % [facility] Nucleated RBC (Bld) [#/Vol] NINF [facility] Nucleated RBC/100 WBC (Bld) [Ratio] 0 % /100 WBC [facility] Platelet mean volume (Bld) [Entitic vol] 9.3 fL 9.0 - 12.7 fL [facility] Platelets (Bld) [#/Vol] 237 10*3/uL [facility] RBC (Bld) [#/Vol] 2.89 10*6/uL Low 4.20 - 6.0 0 m/uL [facility] WBC (Bld) [#/Vol] 7.76 10*3/uL [facility] Basophils (Bld) [#/Vol] 0.07 10*3/uL Normal <0.11 [facility] Comment on above: Order Comment: Speci men Type: URINE SPECIMEN Ordering Facility: [facility] Address: [address] [place] [address] Performed By: #### U A #### [facility] CLIA [id number] [address] [place] [address] [place] Basophils/100 WBC (Bld) 0.9 % Normal [facility] Comment on above: Order Comment: Speci men Type: URINE SPECIMEN Ordering Facility: [facility] Address: [address] [place] [address] Performed By: #### U A #### [facility] CLIA [id number] [address] [place] [address] [place] Differential cell count method Nom (Bld) Auto Normal [facility] Comment on above: Order Comment: Speci men Type: URINE SPECIMEN Ordering Facility: [facility] Address: [address] [place] [address] Performed By: #### U A #### [facility] CLIA [id number] [address] [place] [address] [place] Eosinophils (Bld) [#/Vol] 0.32 10*3/uL Normal <0.46 [facility] Comment on above: Order Comment: Speci men Type: URINE SPECIMEN Ordering Facility: [facility] Address: [address] [place] [address] Performed By: #### U A #### [facility] CLIA [id number] [address] [place] [address] [place] Eosinophils/100 WBC (Bld) 4.1 % Normal [facility] Comment on above: Order Comment: Speci men Type: URINE SPECIMEN Ordering Facility: [facility] Address: [address] [place] [address] Performed By: #### U A #### [facility] CLIA [id number] [address] [place] [address] [place] Erythrocyte distribution width (RBC) [Ratio] 12.9 % Normal 11.5-15.0 [facility] Comment on above: Order Comment: Speci men Type: URINE SPECIMEN Ordering Facility: [facility] Address: [address] [place] [address] Performed By: #### U A #### [facility] CLIA [id number] [address] [place] [address] [place] Hematocrit (Bld) [Volume fraction] 31.6 % Low 39.0-51.0 [facility] Comment on above: Order Comment: Speci men Type: URINE SPECIMEN Ordering Facility: [facility] Address: [address] [place] [address] Performed By: #### U A #### [facility] CLIA [id number] [address] [place] [address] [place] Hemoglobin (Bld) [Mass/Vol] 10.4 g/dL Low 13.0-17.0 [facility] Comment on above: Order Comment: Speci men Type: URINE SPECIMEN Ordering Facility: [facility] Address: [address] [place] [address] Performed By: #### U A #### [facility] CLIA [id number] [address] [place] [address] [place] Immature granulocytes (Bld) [#/Vol] 0.04 10*3/uL Normal <0.10 [facility] Comment on above: Order Comment: Speci men Type: URINE SPECIMEN Ordering Facility: [facility] Address: [address] [place] [address] Performed By: #### U A #### [facility] CLIA [id number] [address] [place] [address] [place] Immature granulocytes/100 WBC (Bld) 0.5 % Normal [facility] Comment on above: Order Comment: Speci men Type: URINE SPECIMEN Ordering Facility: [facility] Address: [address] [place] [address] Performed By: #### U A #### [facility] CLIA [id number] [address] [place] [address] [place] Lymphocytes (Bld) [#/Vol] 1.02 10*3/uL Normal 1.00-4.00 [facility] Comment on above: Order Comment: Speci men Type: URINE SPECIMEN Ordering Facility: [facility] Address: [address] [place] [address] Performed By: #### U A #### [facility] CLIA [id number] [address] [place] [address] [place] Lymphocytes/100 WBC (Bld) 13.1 % Normal [facility] Comment on above: Order Comment: Speci men Type: URINE SPECIMEN Ordering Facility: [facility] Address: [address] [place] [address] Performed By: #### U A #### [facility] CLIA [id number] [address] [place] [address] [place] MCH (RBC) [Entitic mass] 36.0 pg High 26.0-34.0 [facility] Comment on above: Order Comment: Speci men Type: URINE SPECIMEN Ordering Facility: [facility] Address: [address] [place] [address] Performed By: #### U A #### [facility] CLIA [id number] [address] [place] [address] [place] MCHC (RBC) [Mass/Vol] 32.9 g/dL Normal 30.5-36.0 [facility] Comment on above: Order Comment: Speci men Type: URINE SPECIMEN Ordering Facility: [facility] Address: [address] [place] [address] Performed By: #### U A #### [facility] CLIA [id number] [address] [place] [address] [place] MCV (RBC) [Entitic vol] 109.3 fL High 80.0-100.0 [facility] Comment on above: Order Comment: Speci men Type: URINE SPECIMEN Ordering Facility: [facility] Address: [address] [place] [address] Performed By: #### U A #### [facility] CLIA [id number] [address] [place] [address] [place] Monocytes (Bld) [#/Vol] 0.71 10*3/uL Normal <0.87 [facility] Comment on above: Order Comment: Speci men Type: URINE SPECIMEN Ordering Facility: [facility] Address: [address] [place] [address] Performed By: #### U A #### [facility] CLIA [id number] [address] [place] [address] [place] Monocytes/100 WBC (Bld) 9.1 % Normal [facility] Comment on above: Order Comment: Speci men Type: URINE SPECIMEN Ordering Facility: [facility] Address: [address] [place] [address] Performed By: #### U A #### [facility] CLIA [id number] [address] [place] [address] [place] Neutrophils (Bld) [#/Vol] 5.60 10*3/uL Normal 1.45-7.50 [facility] Comment on above: Order Comment: Speci men Type: URINE SPECIMEN Ordering Facility: [facility] Address: [address] [place] [address] Performed By: #### U A #### [facility] CLIA [id number] [address] [place] [address] [place] Neutrophils/100 WBC (Bld) 72.3 % Normal [facility] Comment on above: Order Comment: Speci men Type: URINE SPECIMEN Ordering Facility: [facility] Address: [address] [place] [address] Performed By: #### U A #### [facility] CLIA [id number] [address] [place] [address] [place] Nucleated RBC (Bld) [#/Vol] 10*3/uL Normal <0.01 [facility] Comment on above: Order Comment: Speci men Type: URINE SPECIMEN Ordering Facility: [facility] Address: [address] [place] [address] Performed By: #### U A #### [facility] CLIA [id number] [address] [place] [address] [place] Nucleated RBC/100 WBC (Bld) [Ratio] 0.0 /100 WBC Normal [facility] Comment on above: Order Comment: Speci men Type: URINE SPECIMEN Ordering Facility: [facility] Address: [address] [place] [address] Performed By: #### U A #### [facility] CLIA [id number] [address] [place] [address] [place] Platelet mean volume (Bld) [Entitic vol] 9.3 fL Normal 9.0-12.7 [facility] Comment on above: Order Comment: Speci men Type: URINE SPECIMEN Ordering Facility: [facility] Address: [address] [place] [address] Performed By: #### U A #### [facility] CLIA [id number] [address] [place] [address] [place] Platelets (Bld) [#/Vol] 237 10*3/uL Normal 150-400 [facility] Comment on above: Order Comment: Speci men Type: URINE SPECIMEN Ordering Facility: [facility] Address: [address] [place] [address] Performed By: #### U A #### [facility] CLIA [id number] [address] [place] [address] [place] RBC (Bld) [#/Vol] 2.89 10*6/uL Low 4.20-6.00 [facility] Comment on above: Order Comment: Speci men Type: URINE SPECIMEN Ordering Facility: [facility] Address: [address] [place] [address] Performed By: #### U A #### [facility] CLIA [id number] [address] [place] [address] WBC (Bld) [#/Vol] 7.76 10*3/uL Normal 3.70-11.00 [facility] Comment on above: Order Comment: Speci men Type: URINE SPECIMEN Ordering Facility: [facility] Address: [address] [place] [address] Performed By: #### U A #### [facility] CLIA [id number] [address] [place] [address] CNOVon 12-11-2024 CNOV Office Visit (INTMWS ) -- ZACHARY SHORT ([id number]) 1945 M Date Time Provider Department 12/11/24 [...] may need to follow up with a certified legal secretary specialist for further evaluation. For now, this [...] weed eater, or prolonged use of a data assistant to prevent strain. Let us know if [...] cancer s (more content not included)... Normal [facility] ANES POSTPROC EVALon 025 ANES POSTPROC EVAL HNO ID: [id number] Author: JUAN SALGUERO DO Service: Anesthesiology Author Type: Physician Type: Anesthesia Postprocedure Evaluation Filed: 11/30/2024 17:04 Note Text: POST ANESTHESIA EVALUATION NOTE : 1945 Procedure Summary Date: 11/28/24 Room / Location: [facility] Anesthesia Start: 1007 Anesthesia Stop: 1123 [...] November 30, 2024 TIME: 5:03 PM CSN: [id number] [facility] Jluis 11-30-2024 HUMA Telephone (AKURFL) -- HANZACHARY ([id number]) 1945 M Date Time Provider Department 11/30/24 JUAN BLANTON JR During your visit today, we recorded the following information about you: Juan Blanton Jr., MD 11/30/2024 10:00 AM Signed [facility] or 11/28/24 Fu with ri 4 weeks Mor Cannon 12/03/2024 10:13 AM [...] - azelastine 0.1% nasal spray Use 1 Goddard in each nostril two times a day. - lisinopril-hydroCHLOROthia zide (ZESTORETIC) 10-12.5 mg per tablet Take 1 tablet by mouth once daily. - ergocalciferol 50,000 unit capsule (VITAMIN D2, DRISDOL) Take 1 capsule by mouth two times a week. TO BE TAKEN ORALLY DIRECTED. Take 1 tablet by mouth twice weekly [id number], then decrease to 1 tablet weekly. - [...] Encounter Status:Closed by JUAN BLANTON on 11/30/24 [facility] OPERATIVE NOon 11-30-2024 OPERATIVE NO HNO ID: [id number] Author: JUAN BLANTON JR, MD Service: Urology Author Type: Physician Type: Operative Report Filed: 12/01/2024 08:05 Note Text: [facility] - Operative Report ZACHARY SHORT : 1945 AGE: 79. SEX: M PATIENT TYPE: V HOSP SVC: Surgical LOCATION: [facility] ATTENDING PHYSICIAN: Juan Blanton Jr, MD CSN NUMBER: [id number] DATE OF SURGERY/PROCEDURE: 11/28/2024 INCISION/PROCEDURE START TIME: 10:27 AM INCISION CLOSE/PROCEDURE END TIME: 11:09 AM PREOPERATIVE DIAGNOSIS: BPH with lower urinary tract symptoms. POSTOPERATIVE DIAGNOSIS: BPH with lower urinary tract symptoms. SURGEON: Juan Blanton Jr, MD AUTO COLLISION REPAIR INSTRUCTOR: No Additional Staff SURGERY/PROCEDURE: Cystoscopy, transurethral resection [...] unit for recovery. Juan Blanton Jr, MD MG:[id number] /[id number] Normal [facility] CNDSon 11-29-2024 [facility] HNO ID: [id number] Author: JUAN BLANTON JR, MD Service: Urology [...] medications azelastine 0.1% nasal spray Use 1 Goddard in each nostril two times a day. [...] Take 1 tablet by mouth twice weekly q2ixrin, then decrease to 1 tablet weekly. finasteride [...] Your Medications These medications were sent to [facility] - [place] [address] [address] [phone] [address] [place] [address] amoxicillin-clavulanate potassium 875-125 mg per tablet Future Appointments: Follow Up with Dr Blanton TIME OF CARE: Discharge Management: I personally spent less than 30 minutes involved in the discharge management of this patient. SIGNATURE: Michael Dang MD DATE: November 29, 2024 TIME: 8:22 AM Normal [facility] ECG COMPLETEon 11-29-2024 ECG COMPLETE Ventricular Rate : 5 8 BPM Atrial Rate : 58 BPM P-R Interval : 200 ms QRS Duration : 134 ms Q-T Interval : 458 ms QTC Calculation(Bazett) : 449 ms Calculated P [place] : 61 degrees Calculated R [place] : -48 degrees Calculated T [place] : 36 degrees SINUS BRADYCARDIA WITH PREMATURE ATRIAL COMPLEXES LEFT AXIS DEVIATION NON-SPECIFIC INTRA-VENTRICULAR CONDUCTION BLOCK MINIMAL VOLTAGE CRITERIA FOR LVH, MAY BE NORMAL VARIANT ( Pocahontas product ) CANNOT RULE OUT SEPTAL INFARCT , AGE UNDETERMINED ABNORMAL ECG NO PREVIOUS ECGS AVAILABLE Confirmed by KANU GONZALES MD ([id number]) on 11/29/2024 2:49:30 PM NAME : ZACHARY SHORT PID : [id number] : 1945 Gender : Male Race : ORD : [id number] Procedure Date : Nov 29 2024 07:56:13 Edit Date : Nov 29 2024 14:49:33 Diagnosis: SINUS BRADYCARDIA WITH PREMATURE ATRIAL COMPLEXES LEFT AXIS DEVIATION NON-SPECIFIC INTRA-VENTRICULAR CONDUCTION BLOCK MINIMAL VOLTAGE CRITERIA FOR LVH, MAY BE NORMAL VARIANT ( Anastacio product ) CANNOT RULE OUT SEPTAL INFARCT , AGE UNDETERMINED ABNORMAL ECG NO PREVIOUS ECGS AVAILABLE Confirmed by KANU GONZALES MD ([id number]) on 11/29/2024 2:49:30 PM Test Reason : Bradycardia Location : 200 : [facility] 5105 Overread By : KANU GONZALES MD Edited By : KANU GONZALES MD Referred By : JUAN BLANTON JR Acquired by : POORNIMA CHOW [facility] ANES PRE-OPon 11-28-2024 ANES PRE-OP HNO ID: [id number] Author: JUAN SALGUERO DO Service: Anesthesiology Author [...] daily. azelastine 0.1% nasal spray Use 1 Goddard in each nostril two times a day. ergocalciferol 50,000 unit capsule (VITAMIN D2, DRISDOL) Take 1 capsule by mouth two times a week. TO BE TAKEN ORALLY DIRECTED. Take 1 tablet by mouth twice weekly [id number], then decrease to 1 tablet weekly. naproxen [...] November 28, 2024 TIME: 9:24 AM CSN: [id number] Normal [facility] Pathology biopsy report Leno (Tiss)on 11-28-2024 AP DISCLAIMER Normal [facility] Comment on above: Order Comment: Speci men Type: TISSUE SPECIMENOrdering Facility: [facility] Address: [address] [place] [address] Result Comment: Ramon medina Developed Test (LDT) Disclaimer: Performance characteristics of immunohistochemical, immunofluorescent, and chromogenic in-situ hybridization tests have been determined by the performing laboratory within [facility]'s Rajat Lopez Pathology and Laboratory Medicine Department ([facility], [facility], [facility], [facility], [facility], [facility], or [facility]) in a manner consistent with CLIA requirements. One or more of these tests may not have been cleared or approved by the FDA. [facility] is regulated under CLIA as qualified to perform high-complexity testing. These tests are used for clinical purposes. These should not be regarded as investigational or for research. Positive and negative controls stain appropriately. Performed By: #### 6 6121-5 ####[facility] [id number] [address] CASE REPORT Normal [facility] Comment on above: Order Comment: Speci men Type: TISSUE SPECIMENOrdering Facility: [facility] Address: [address] [place] [address] Result Comment: Surg ica Pathology Report Case: [id number] Authorizing Provider: Juan Blanton Jr., Collected: 11/28/2024 11:07 AM Ordering Location: [facility] Received: 11/28/2024 02:50 PM Pathologist: Zachary Blackmon MD Specimen: Prostate, Chips Performed By: #### 6 6121-5 ####[facility] [id number] [address] [facility] CLINICAL HISTORY Normal [facility] Comment on above: Order Comment: Speci men Type: TISSUE SPECIMENOrdering Facility: [facility] Address: [address] [place] [address] Result Comment: Pre- op diagnosis: BPH with obstruction/lower urinary tract symptoms [N40.1, N13.8] Performed By: #### 6 6121-5 ####[facility] [id number] [address] FINAL DIAGNOSIS Normal [facility] Comment on above: Order Comment: Speci men Type: TISSUE SPECIMENOrdering Facility: [facility] Address: [address] [place] [address] Result Comment: Sanjay menendez, transurethral resection: - Benign prostatic tissues. at 1007 EDT Performed By: #### 6 6121-5 ####[facility] [id number] [address] [place] FINAL PERFORMING LAB Normal [facility] Comment on above: Order Comment: Speci men Type: TISSUE SPECIMENOrdering Facility: [facility] Address: [address] [place] [address] Result Comment: Diag nostic interpretation performed at: [facility], [address] [place] [address] CLIA# [id number] Predatory Animal Trapper: Zachary Blackmon MD Performed By: #### 6 6121-5 ####[facility] [id number] [address] GROSS DESCRIPTION Normal [facility] Comment on above: Order Comment: Speci men Type: TISSUE SPECIMENOrdering Facility: [facility] Address: [address] [place] [address] Result Comment: Sanjay menendez, Chips Received in formalin and designated prostate chips are multiple fragments of jones-pink rubbery tissue 28.2 g and 10.0 x 9.0 x 2.0 cm. Grossly no firm areas are identified. Multiple manufacturer's service representative sections are submitted in cassettes 1-8. KM November 29, 2024 8:31 AM Gross examination performed at [facility], [address] [place] [address] Performed By: #### 6 6121-5 ####[facility]ORYCLIA [id number] [address] [facility] NURSING PROGon 11-22-2024 NURSING PROG HNO ID: [id number] Author: LACI ALEXANDRE APRN.HARD METALS HAND ENGRAVER Service: ? Author Type: Nurse Practitioner Type: [...] prior CC echocardiographic exam for comparison. Normal [facility] ECHOon 11-19-2024 CONCLUSIONS: - Exam indication: Abnormal [...] * * * Final * * * [facility] Echocardiography Report: Transthoracic Echo [facility] Date of service: 11/19/2024 11:34:12 AM Ordering physician: AILIN PIERSON Indication: Abnormal ECG Technologist: Kathia Ramos [facility] Interpreting physician: Oj Barton MD PATIENT: [...] effusion. There is an epicardial fat pad. [facility] Echocardiography Echocardiography Rep ort: Transthoracic Echo [facility] Date of service: 11/19/2024 11:34:12 AM Ordering physician: AILIN PIERSON Indication: Abnormal ECG Technologist: Kathia Ramos [facility] Interpreting physician: Oj Barton MD PATIENT: [...] * * Final * * * [facility] : [id number]. [id number] 11-14-2024 HUMA Telephone (UROLMD) -- ZACHARY SHORT ([id number]) 1945 M Date Time Provider Department 11/14/24 [...] Date Reviewed: 11/14/2024 Reviewed by: Navneet Tellez APRN.[facility] - Fully Assessed Reason for Visit: [...] - azelastine 0.1% nasal spray Use 1 Goddard in each nostril two times a day. - lisinopril-hydroCHLOROthia zide (ZESTORETIC) 10-12.5 mg per tablet Take 1 tablet by mouth once daily. - ergocalciferol 50,000 unit capsule (VITAMIN D2, DRISDOL) Take 1 capsule by mouth two times a week. TO BE TAKEN ORALLY DIRECTED. Take 1 tablet by mouth twice weekly [id number], then decrease to 1 tablet weekly. - [...] Status:Closed by YORDAN ARELLANO on 11/14/24 Normal [facility] HISTORY PHYSICALon HISTORY PHYSICAL HNO ID: [id number] Author: NAVNEET TELLEZ APRN.HARD METALS HAND ENGRAVER Service: ? Author Type: Nurse Practitioner Type: [...] BMI 32 Pending ECHO from 10/10/2024 in [facility] ? Flagged for anesthesia review ANESTHESIA FINDINGS: [...] the planned procedure. HPI: Patient presents to [facility] for the preoperative exam for the above [...] fevers. Neurological: No history of TIA's, stroke, ANESTHESIA RESIDENT tumor, impaired sensorium, hemiplegia, paraplegia or quadraplegia. [...] for: nolberto (more content not included)... Normal [facility] NURSING PROGon 11-14-2024 NURSING PROG HNO ID: [id number] Author: LACI ALEXANDRE APRN.HARD METALS HAND ENGRAVER Service: ? Author Type: Nurse Practitioner Type: [...] request. ELMER please f/u on medical optimization. [facility] NURSING PROGon 11-12-2024 NURSING PROG HNO ID: [id number] Author: BHUMIKA SCHULER, RN Service: Nursing Author Type: Registered Nurse Type: Nursing Progress Note Filed: 11/12/2024 15:27 Note Text: Does patient want another opportunity to revisit surgical decision with surgeon prior to surgery? No If yes, message sent to surgeon. N/A Normal [facility] CNNURSEon 11-05-2024 CNNURSE Nurse Visit (UROLMD) -- ZACHARY SHORT ([id number]) 1945 M Date Time Provider Department 11/05/24 [...] - azelastine 0.1% nasal spray Use 1 Goddard in each nostril two times a day. - lisinopril-hydroCHLOROthia zide (ZESTORETIC) 10-12.5 mg per tablet Take 1 tablet by mouth once daily. - ergocalciferol 50,000 unit capsule (VITAMIN D2, DRISDOL) Take 1 capsule by mouth two times a week. TO BE TAKEN ORALLY DIRECTED. Take 1 tablet by mouth twice weekly [id number], then decrease to 1 tablet weekly. - [...] Status:Closed by GREGORY CASAREZ on 11/05/24 Normal [facility] Bacteria Ur Culton 5 Bacteria identified [...] , Intermediate >32 , Resistant >64 Abnormal [facility] Comment on above: Performed By: #### 2 4321-2, 94273-1 #### [facility] CLIA [id number] [address] [place] CBC W Auto Differential pane l (Bld)on 10-23-2024 Basophils (Bld) [#/Vol] 0.04 10*3/uL Normal <0.11 [facility] Comment on above: Order Comment: Speci men Type: BLOOD SPECIMENOrdering Facility: [facility] Address: [address] [place] [address] Performed By: #### 5 7021-8 ####[facility] [id number] [address] [facility] Basophils/100 WBC (Bld) 0.6 % Normal [facility] Comment on above: Order Comment: Speci men Type: BLOOD SPECIMENOrdering Facility: [facility] Address: [address] [place] [address] Performed By: #### 5 7021-8 ####[facility] [id number] [address] [place] Differential cell count method Nom (Bld) Auto Normal [facility] Comment on above: Order Comment: Speci men Type: BLOOD SPECIMENOrdering Facility: [facility] Address: [address] [place] [address] Performed By: #### 5 7021-8 ####[facility]ORY[facility]IA [id number] [place] [address] [place] Eosinophils (Bld) [#/Vol] 0.50 10*3/uL High <0.46 [facility] Comment on above: Order Comment: Speci men Type: BLOOD SPECIMENOrdering Facility: [facility] Address: [address] [place] [address] Performed By: #### 5 7021-8 ####[facility] [id number] [address] [place] Eosinophils/100 WBC (Bld) 7.2 % Normal [facility] Comment on above: Order Comment: Speci men Type: BLOOD SPECIMENOrdering Facility: [facility] Address: [address] [place] [address] Performed By: #### 5 7021-8 ####[facility] [id number] [address] [place] Erythrocyte distribution width (RBC) [Ratio] 14.6 % Normal 11.5-15.0 [facility] Comment on above: Order Comment: Speci men Type: BLOOD SPECIMENOrdering Facility: [facility] Address: [address] [place] [address] Performed By: #### 5 7021-8 ####[facility] [id number] [address] [place] Hematocrit (Bld) [Volume fraction] 34.4 % Low 39.0-51.0 [facility] Comment on above: Order Comment: Speci men Type: BLOOD SPECIMENOrdering Facility: [facility] Address: [address] [place] [address] Performed By: #### 5 7021-8 ####[facility]ORY[facility] [id number] [place] [address] [place] Hemoglobin (Bld) [Mass/Vol] 11.8 g/dL Low 13.0-17.0 [facility] Comment on above: Order Comment: Speci men Type: BLOOD SPECIMENOrdering Facility: [facility] Address: [address] [place] [address] Performed By: #### 5 7021-8 ####[facility]ORYCLIA [id number] [place] [address] [place] Immature granulocytes (Bld) [#/Vol] 0.10 10*3/uL High <0.10 [facility] Comment on above: Order Comment: Speci men Type: BLOOD SPECIMENOrdering Facility: [facility] Address: [address] [place] [address] Performed By: #### 5 7021-8 ####[facility] [id number] [address] [place] Immature granulocytes/100 WBC (Bld) 1.4 % Normal [facility] Comment on above: Order Comment: Speci men Type: BLOOD SPECIMENOrdering Facility: [facility] Address: [address] [place] [address] Performed By: #### 5 7021-8 ####[facility]ORY[facility]IA [id number] [place] [address] [place] Lymphocytes (Bld) [#/Vol] 0.83 10*3/uL Low 1.00-4.00 [facility] Comment on above: Order Comment: Speci men Type: BLOOD SPECIMENOrdering Facility: [facility] Address: [address] [place] [address] Performed By: #### 5 7021-8 ####[facility] [id number] [address] [place] Lymphocytes/100 WBC (Bld) 11.9 % Normal [facility] Comment on above: Order Comment: Speci men Type: BLOOD SPECIMENOrdering Facility: [facility] Address: [address] [place] [address] Performed By: #### 5 7021-8 ####[facility] [id number] [address] MCH (RBC) [Entitic mass] 35.4 pg High 26.0-34.0 [facility] Comment on above: Order Comment: Speci men Type: BLOOD SPECIMENOrdering Facility: [facility] Address: [address] [place] [address] Performed By: #### 5 7021-8 ####[facility]ORY[facility]IA [id number] [address] MCHC (RBC) [Mass/Vol] 34.3 g/dL Normal 30.5-36.0 [facility] Comment on above: Order Comment: Speci men Type: BLOOD SPECIMENOrdering Facility: [facility] Address: [address] [place] [address] Performed By: #### 5 7021-8 ####[facility]ORY[facility] [id number] [address] MCV (RBC) [Entitic vol] 103.3 fL High 80.0-100.0 [facility] Comment on above: Order Comment: Speci men Type: BLOOD SPECIMENOrdering Facility: [facility] Address: [address] [place] [address] Performed By: #### 5 7021-8 ####[facility] [id number] [address] Monocytes (Bld) [#/Vol] 0.77 10*3/uL Normal <0.87 [facility] Comment on above: Order Comment: Speci men Type: BLOOD SPECIMENOrdering Facility: [facility] Address: [address] [place] [address] Performed By: #### 5 7021-8 ####[facility] [id number] [address] Monocytes/100 WBC (Bld) 11.1 % Normal [facility] Comment on above: Order Comment: Speci men Type: BLOOD SPECIMENOrdering Facility: [facility] Address: [address] [place] [address] Performed By: #### 5 7021-8 ####[facility]ORYCLIA [id number] [place] [address] [place] Neutrophils (Bld) [#/Vol] 4.72 10*3/uL Normal 1.45-7.50 [facility] Comment on above: Order Comment: Speci men Type: BLOOD SPECIMENOrdering Facility: [facility] Address: [address] [place] [address] Performed By: #### 5 7021-8 ####[facility]ORYCLIA [id number] [place] [address] [place] Neutrophils/100 WBC (Bld) 67.8 % Normal [facility] Comment on above: Order Comment: Speci men Type: BLOOD SPECIMENOrdering Facility: [facility] Address: [address] [place] [address] Performed By: #### 5 7021-8 ####[facility]ORYCLIA [id number] [place] [address] [place] Nucleated RBC (Bld) [#/Vol] 10*3/uL Normal <0.01 [facility] Comment on above: Order Comment: Speci men Type: BLOOD SPECIMENOrdering Facility: [facility] Address: [address] [place] [address] Performed By: #### 5 7021-8 ####[facility]ORYCL[facility] [id number] [address] [place] Nucleated RBC/100 WBC (Bld) [Ratio] 0.0 /100 WBC Normal [facility] Comment on above: Order Comment: Speci men Type: BLOOD SPECIMENOrdering Facility: [facility] Address: [address] [place] [address] Performed By: #### 5 7021-8 ####[facility]ORYCLIA [id number] [place] [address] [place] Platelet mean volume (Bld) [Entitic vol] 8.6 fL Low 9.0-12.7 [facility] Comment on above: Order Comment: Speci men Type: BLOOD SPECIMENOrdering Facility: [facility] Address: [address] [place] [address], [place] [address] Performed By: #### 5 7021-8 ####[facility]ORYCLIA [id number] [address] [place] Platelets (Bld) [#/Vol] 201 10*3/uL Normal 150-400 [facility] Comment on above: Order Comment: Speci men Type: BLOOD SPECIMENOrdering Facility: [facility] Address: [address] [place] [address] Performed By: #### 5 7021-8 ####[facility]ORYCL[facility] [id number] [address] [place] RBC (Bld) [#/Vol] 3.33 10*6/uL Low 4.20-6.00 [facility] Comment on above: Order Comment: Speci men Type: BLOOD SPECIMENOrdering Facility: [facility] Address: [address] [place] [address] Performed By: #### 5 7021-8 ####[facility]ORYCLIA [id number] [address] [facility] WBC (Bld) [#/Vol] 6.96 10*3/uL Normal 3.70-11.00 [facility] Comment on above: Order Comment: Speci men Type: BLOOD SPECIMENOrdering Facility: [facility] Address: [address] [place] [address] Performed By: #### 5 7021-8 ####LINK LABORATORYCLIA [id number] [address] [facility] CNPNon 10-23-2024 [facility] ([employer] AerogelsTWS) -- ZACHARY SHORT ([id number]) 1945 M Date Time Provider Department 10/23/24 [...] was notified and prefers to go to [facility] and will do so now. Dr [...] - azelastine 0.1% nasal spray Use 1 [place] in each nostril two times a day. - lisinopril-hydroCHLOROthia zide (ZESTORETIC) 10-12.5 mg per tablet Take 1 tablet by mouth once daily. - ergocalciferol 50,000 unit capsule (VITAMIN D2, DRISDOL) Take 1 capsule by mouth two times a week. TO BE TAKEN ORALLY DIRECTED. Take 1 tablet by mouth twice weekly [id number], then decrease to 1 tablet weekly. - [...] Status:Closed by MALI FERNÁNDEZ on 10/23/24 Normal [facility] metabolic 2000 panelon 10-23-2024 Albumin [Mass/Vol] 4.2 g/dL Normal 3.9-4.9 [facility] Comment on above: Order Comment: Speci men Type: BLOOD SPECIMENOrdering Facility: [facility] Address: [address] [place] [address] Performed By: #### 1 9123-9, 00812-4 ####LINK LABORATORYCLIA [id number] [place] [address] [place] ALP [Catalytic activity/Vol] 102 U/L Normal 38-113 [facility] Comment on above: Order Comment: Speci men Type: BLOOD SPECIMENOrdering Facility: [facility] Address: [address] [place] [address] Performed By: #### 1 9123-9, 41479-8 ####LINK LABORATORYCLIA [id number] [place] [address] [place] ALT [Catalytic activity/Vol] U/L Low 10-54 [facility] Comment on above: Order Comment: Speci men Type: BLOOD SPECIMENOrdering Facility: [facility] Address: [address] [place] [address] Performed By: #### 1 23-9, 55157-5 ####LINK LABORATORYCLIA [id number] [place] [address] [place] Anion gap [Moles/Vol] 11 mmol/L Normal 8-15 [facility] Comment on above: Order Comment: Speci men Type: BLOOD SPECIMENOrdering Facility: [facility] Address: [address] [place] [address] Performed By: #### 1 9123-9, 00990-7 ####LINK LABORATORYCLIA [id number] [place] [id number] [place] AST [Catalytic activity/Vol] 27 U/L Normal 14-40 [facility] Comment on above: Order Comment: Speci men Type: BLOOD SPECIMENOrdering Facility: [facility] Address: [address] [place] [address] Performed By: #### 1 23, ####LINK LABORATORYCLIA [id number] [place] [address] [place] Bilirubin [Mass/Vol] mg/dL Low 0.2-1.3 [facility] Comment on above: Order Comment: Speci men Type: BLOOD SPECIMENOrdering Facility: [facility] Address: [address] [place] [address] Performed By: #### 1 9123-01, ####LINK LABORATORYCLIA [id number] [place] [address] [place] Calcium [Mass/Vol] 9.3 mg/dL Normal 8.5-10.2 [facility] Comment on above: Order Comment: Speci men Type: BLOOD SPECIMENOrdering Facility: [facility] Address: [address] [place] [address] Performed By: #### 1 9, ####LINK LABORATORYCLIA [id number] [place] [address] [place] Chloride [Moles/Vol] 100 mmol/L Normal 98-107 [facility] Comment on above: Order Comment: Speci men Type: BLOOD SPECIMENOrdering Facility: [facility] Address: [address] [place] [address] Performed By: #### 1 9, ####LINK LABORATORYCLIA [id number] [place] [address] [place] CO2 [Moles/Vol] 26 mmol/L Normal 22-30 [facility] Comment on above: Order Comment: Speci men Type: BLOOD SPECIMENOrdering Facility: [facility] Address: [address] [place] [address] Performed By: #### 1 23-9, 78652-6 ####LINK LABORATORYCLIA [id number] [place] [address] [place] Creatinine [Mass/Vol] 1.01 mg/dL Normal 0.73-1.22 [facility] Comment on above: Order Comment: Speci men Type: BLOOD SPECIMENOrdering Facility: [facility] Address: [address] [place] [address] Performed By: #### 1 9123-9, 33835-9 ####LINK LABORATORYCLIA [id number] [place] [id number] [place] [facility] Creatinine and Glomerular filtration rate.predicted panel (S/P/Bld) 75 mL/min/1.73m??? Normal >=60 [facility] Comment on above: Order Comment: Radha charles Type: BLOOD SPECIMENOrdering Facility: [facility] Address: [address] [place] [address] Result Comment: Ekaterina mated Glomerular Filtration Rate [...] actual GFR. Performed By: #### 1 9123-9, 27834-9 ####LINK LABORATORYCLIA [id number] [place] [address] [place] [facility] Glucose [Mass/Vol] 96 mg/dL Normal 74-99 [facility] Comment on above: Order Comment: Radha charles Type: BLOOD SPECIMENOrdering Facility: [facility] Address: [address] [place] [address] Result Comment: The [place] Diabetes Association (ADA) provides guidance for cutoff [...] Standards of Medical Care in Diabetes 2016, [place] [employer]. Diabetes Care. 2016.39(Suppl 1). Performed By: #### 1 9123-9, 11230-9 ####LINK LABORATORYCLIA [id number] [place] [address] [facility] Potassium [Moles/Vol] 4.6 mmol/L Normal 3.7-5.1 [facility] Comment on above: Order Comment: Speci men Type: BLOOD SPECIMENOrdering Facility: [facility] Address: [address] [place] [address] Performed By: #### 1 9123-9, 91512-6 ####LINK LABORATORYCLIA [id number] [place] [address] [place] Protein [Mass/Vol] 7.9 g/dL Normal 6.3-8.0 [facility] Comment on above: Order Comment: Speci men Type: BLOOD SPECIMENOrdering Facility: [facility] Address: [address] [place] [address] Performed By: #### 1 9123-9, 45493-0 ####LINK LABORATORYCLIA [id number] [address] Sodium [Moles/Vol] 137 mmol/L Normal 136-144 [facility] Comment on above: Order Comment: Speci men Type: BLOOD SPECIMENOrdering Facility: [facility] Address: [address] [place] [address] Performed By: #### 1 9123-9, 26697-2 ####LINK LABORATORYCLIA [id number] [address] [place] Urea nitrogen [Mass/Vol] 21 mg/dL Normal 9-24 [facility] Comment on above: Order Comment: Speci men Type: BLOOD SPECIMENOrdering Facility: [facility] Address: [address] [place] [address] Performed By: #### 1 9123-9, 19161-0 ####LINK LABORATORYCLIA [id number] [address] [place] ED NOTEon 10-23-2024 ED NOTE HNO ID: [id number] Author: RENEE RAMIREZ RN Service: ? Author [...] DATE: October 25, 2024 TIME: 10:35 AM [facility] ED NOTE HNO ID: [id number] Author: AYDEN HOLDEN RN Service: Nursing Author [...] with all personal belongings exiting the facility. [facility] ED PROV NOTEon 10-23-2024 ED PROV NOTE HNO ID: [id number] Author: VICKY HERNÁNDEZ DO Service: Emergency Medicine [...] Course a (more content not included)... Normal [facility] ED Triage Noteon 10-23-2024 ED Triage Note HNO ID: [id number] Author: MATEO BRODERICK APRN.HARD METALS HAND ENGRAVER Service: Emergency Medicine Author Type: Nurse Practitioner [...] w Microscopic, reflex Culture SIGNATURE: Mateo Broderick, ELEVATOR TENDER.HARD METALS HAND ENGRAVER Normal [facility] Magnesium SerPl-mCncon 10-23 Magnesium [Mass/Vol] 2.0 mg/dL Normal 1.7-2.3 [facility] Comment on above: Order Comment: Speci men Type: BLOOD SPECIMENOrdering Facility: [facility] Address: [address] [place] [address] Performed By: #### 1 9123-9, 99651-9 ####[facility]ORATORYCLIA [id number] [address] [facility] Urinalysis complete panel (U )on 10-23-2024 Bacteria LM.HPF (Urine sed) [#/Area] Moderate Abnormal None Seen [facility] Comment on above: Order Comment: Speci men Type: BLOOD SPECIMEN Ordering Facility: [facility] Address: [address] [place] [address] Performed By: #### 2 432-2, #### [facility] CLIA [id number] [address] [facility] Bilirubin Ql (U) Negative Normal Negative [facility] Comment on above: Order Comment: Speci men Type: BLOOD SPECIMEN Ordering Facility: [facility] Address: [address] [place] [address] Performed By: #### 2 432-2, #### [facility] CLIA [id number] [address] Clarity (Unsp spec) Cloudy Abnormal Clear [facility] Comment on above: Order Comment: Speci men Type: BLOOD SPECIMEN Ordering Facility: [facility] Address: [address] [place] [address] Performed By: #### 2 4321-2, #### [facility] CLIA [id number] [address] [place] Color (U) Yellow Normal Yellow [facility] Comment on above: Order Comment: Speci men Type: BLOOD SPECIMEN Ordering Facility: [facility] Address: [address] [place] [address] Performed By: #### 2 4321-2, #### [facility] CLIA [id number] [address] Glucose Test strip (U) [Mass/Vol] Negative Normal Negative [facility] Comment on above: Order Comment: Speci men Type: BLOOD SPECIMEN Ordering Facility: [facility] Address: [address] [place] [address] Performed By: #### 2 4321-2, #### [facility] CLIA [id number] [address] Hemoglobin Ql (U) 3+ Abnormal Negative [facility] Comment on above: Order Comment: Speci men Type: BLOOD SPECIMEN Ordering Facility: [facility] Address: [address] [place] [address] Performed By: #### 2 432-2, #### [facility] CLIA [id number] [address] [place] Ketones Ql (U) Negative Normal Negative [facility] Comment on above: Order Comment: Speci men Type: BLOOD SPECIMEN Ordering Facility: [facility] Address: [address] [place] [address] Performed By: #### 2 432-2, #### [facility] CLIA [id number] [address] Leukocyte esterase Test strip Ql (U) 3+ Abnormal Negative [facility] Comment on above: Order Comment: Speci men Type: BLOOD SPECIMEN Ordering Facility: [facility] Address: [address] [place] [address] Performed By: #### 2 432-2, #### [facility] CLIA [id number] [address] [place] [address] [place] Nitrite Ql (U) Negative Normal Negative [facility] Comment on above: Order Comment: Speci men Type: BLOOD SPECIMEN Ordering Facility: [facility] Address: [address] [place] [address] Performed By: #### 2 4320-2, #### [facility] CLIA [id number] [address] [place] pH (U) 6.0 [pH] Normal 5.0-8.0 [facility] Comment on above: Order Comment: Speci men Type: BLOOD SPECIMEN Ordering Facility: [facility] Address: [address] [place] [address] Performed By: #### 2 4320-2, #### [facility] CLIA [id number] [address] [place] [address] [place] Protein (U) [Mass/Vol] 1+ Abnormal Negative [facility] Comment on above: Order Comment: Speci men Type: BLOOD SPECIMEN Ordering Facility: [facility] Address: [address] [place] [address] Performed By: #### 2 4320-2, #### [facility] CLIA [id number] [address] [place] [address] [place] RBC LM.HPF (Urine sed) [#/Area] 6-10 /HPF Abnormal 0-3 /HPF [facility] Comment on above: Order Comment: Speci men Type: BLOOD SPECIMEN Ordering Facility: [facility] Address: [address] [place] [address] Performed By: #### 2 4320-2, #### [facility] CLIA [id number] [address] [place] Specific gravity (U) [Rel density] 1.020 Normal 1.005-1.030 [facility] Comment on above: Order Comment: Speci men Type: BLOOD SPECIMEN Ordering Facility: [facility] Address: [address] [place] [address] Performed By: #### 2 4320-2, #### [facility] CLIA [id number] [address] [place] [address] [place] Urobilinogen Ql (U) 0.2 EU/dL Normal 0.2-1.0 EU/dL [facility] Comment on above: Order Comment: Speci men Type: BLOOD SPECIMEN Ordering Facility: [facility] Address: [address] [place] [address] [place] [id number] Performed By: #### 2 4321-2, #### [facility] CLIA [id number] [address] WBC LM.HPF (Urine sed) [#/Area] 11-25 /HPF Abnormal 0-5 /HPF [facility] Comment on above: Order Comment: Speci men Type: BLOOD SPECIMEN Ordering Facility: [facility] Address: [address] [place] [address] [place] [id number] Performed By: #### 2 4321-2, #### [facility] CLIA [id number] [address] CNPNon 10-18-2024 CNPN Telephone (RADTWS) -- ZACHARY SHORT ([id number]) 1945 M Date Time Provider Department 10/18/24 [...] - azelastine 0.1% nasal spray Use 1 [place] in each nostril two times a day. - lisinopril-hydroCHLOROthia zide (ZESTORETIC) 10-12.5 mg per tablet Take 1 tablet by mouth once daily. - ergocalciferol 50,000 unit capsule (VITAMIN D2, DRISDOL) Take 1 capsule by mouth two times a week. TO BE TAKEN ORALLY DIRECTED. Take 1 tablet by mouth twice weekly [id number], then decrease to 1 tablet weekly. - [...] Status:Closed by VERO AJ on 10/18/24 Normal [facility] Bacteria Ur Culton 5 Bacteria identified Cx Nom (U) ORGANISM ID: 1 >=100,000 CFU/ml Silke tropicalis No susceptibility testing done. Normal [facility] Comment on above: Performed By: #### 6 30-4 ####[facility] LABCLIA [id number] [place] [address] [place] PSA SerPl-mCncon 10-17-2024 Prostate specific Ag [Mass/Vol] ng/mL Normal <2.60 [facility] Comment on above: Order Comment: Speci men Type: BLOOD SPECIMEN Ordering Facility: [facility] Address: [address] [place] [address] Result Comment: Tota l PSA test methodology used is the Electrochemiluminescence Immunoassay by [employer]. Total PSA values by differing methodologies cannot be interchanged. Performed By: #### 2 857-1 #### [facility] CLIA [id number] [address] [place] [address] [place] CNNURSEon 10-11-2024 CNNURSE Nurse Visit (UROLMD) -- HANZACHARY Bates ([id number]) 1945 M Date Time Provider Department 10/11/24 [...] 45 mg IM left upper arm. Lot Number:[id number] Expiration date:10/2025 Patient tolerated well. FOLLOW UP: [...] - azelastine 0.1% nasal spray Use 1 [place] in each nostril two times a day. - lisinopril-hydroCHLOROthia zide (ZESTORETIC) 10-12.5 mg per tablet Take 1 tablet by mouth once daily. - ergocalciferol 50,000 unit capsule (VITAMIN D2, DRISDOL) Take 1 capsule by mouth two times a week. TO BE TAKEN ORALLY DIRECTED. Take 1 tablet by mouth twice weekly [id number], then decrease to 1 tablet weekly. - [...] Status:Closed by GREGORY CASAREZ on 10/26/24 Normal [facility] 25(OH)D3 SerPl-mCncon 2024 25-hydroxyvitamin D3 [Mass/Vol] 32.2 ng/mL Normal 31.0-80.0 [facility] Comment on above: Order Comment: Speci men Type: BLOOD SPECIMEN Ordering Facility: [facility] Address: [address] [place] [address] Performed By: #### 1 989-3 #### [facility] CLIA [id number] [address] [place] [address] [place] 25-hydroxyvitamin D3 [Mass/V ol]on 10-10-2024 Interpretation and review of laboratory results Normal [facility] metabolic 2000 panelon 10-10-2024 Anion gap [Moles/Vol] 13 mmol/L Normal 8-15 [facility] Comment on above: Order Comment: Speci men Type: BLOOD SPECIMENOrdering Facility: [facility] Address: [address] [place] [address] Performed By: #### 2 4321-2, 47054-0, 3016-3 ####[facility] LABCLIA [id number] [place] [address] [place] Calcium [Mass/Vol] 10.1 mg/dL Normal 8.5-10.2 [facility] Comment on above: Order Comment: Speci men Type: BLOOD SPECIMENOrdering Facility: [facility] Address: [address] [place], [place] [address] Performed By: #### 2 4321-2, , 3 ####[facility] LABCLIA [id number] [address] [address] [place] Chloride [Moles/Vol] 98 mmol/L Normal 98-[address] [facility] Comment on above: Order Comment: Speci men Type: BLOOD SPECIMENOrdering Facility: [facility] Address: [address] [place], [place] [address] Performed By: #### 2 4321-2, , 3 ####[facility] LABCLIA [id number] [address] [address] [place] CO2 [Moles/Vol] 25 mmol/L Normal 22-30 [facility] Comment on above: Order Comment: Speci men Type: BLOOD SPECIMENOrdering Facility: [facility] Address: [address] [place], [place] [address] Performed By: #### 2 4321-2, , 3015-07 ####[facility] LABCLIA [id number] [address] [address] [place] Creatinine [Mass/Vol] 1.01 mg/dL Normal 0.73-1.22 [facility] Comment on above: Order Comment: Speci men Type: BLOOD SPECIMENOrdering Facility: [facility] Address: [address] [place], [place] [address] Performed By: #### 2 4321-2, , 3 ####[facility] LABCLIA [id number] [address] [address] [place] Creatinine and Glomerular filtration rate.predicted panel (S/P/Bld) 75 mL/min/1.73m??? Normal >=60 [facility] Comment on above: Order Comment: Speci men Type: BLOOD SPECIMENOrdering Facility: [facility] Address: [address] [place] [id number] Result Comment: Ekaterina mated Glomerular Filtration Rate [...] Performed By: #### 2 4321-2, , 3 ####[facility] LABIA [id number] [place] [address] [place] Glucose [Mass/Vol] 93 mg/dL Normal 74-99 [facility] Comment on above: Order Comment: Radha charles Type: BLOOD SPECIMENOrdering Facility: [facility] Address: [address] [place] [address] Result Comment: The [place] Diabetes [employer] (ADA) provides guidance for cutoff [...] Standards of Medical Care in Diabetes 2016, [place] [employer]. Diabetes Care. 2016.39(Suppl 1). Performed By: #### 2 4321-2, , 3 ####[facility] LABIA [id number] [address] [address] [place] Potassium [Moles/Vol] 4.6 mmol/L Normal 3.7-5.1 [facility] Comment on above: Order Comment: Radha charles Type: BLOOD SPECIMENOrdering Facility: [facility] Address: [address] [place] [address] Performed By: #### 2 4321-2, 77639-0, 6-3 ####[facility] LABIA [id number] [place] [address] [place] Sodium [Moles/Vol] 136 mmol/L Normal 136-144 [facility] Comment on above: Order Comment: Speci men Type: BLOOD SPECIMENOrdering Facility: [facility] Address: [address] [place] [address] Performed By: #### 2 4321-2, 79298-2, 3016-3 ####[facility] LABIA [id number] [place] [address] [place] Urea nitrogen [Mass/Vol] 22 mg/dL Normal 9-24 [facility] Comment on above: Order Comment: Speci men Type: BLOOD SPECIMENOrdering Facility: [facility] Address: [address] [place] [address] Performed By: #### 2 4321-2, 88455-9, 3016-3 ####[facility] LABIA [id number] [place] [address] [place] CNOVon 10-10-2024 CNOV Office Visit (INTMWS ) -- ZACHARY SHORT ([id number]) 1945 M Date Time Provider Department 10/10/24 [...] I am not referring you to a auto locator to avoid unnecessary stress. We will review [...] feels is effective. He denies seeing a auto locator recently. Social History Tobacco Use Smoking status: Never Passive exposure: Never Smokeless tobacco: Never Vaping Use Vaping status: Never Used Substance Use Topics Alcohol use: Yes Comment: socially, 3-4 beers/year Drug use: No Past medical history, appointments, medications, allergies reviewed. Pertinent Lab/Diagnostic Studies are reviewed and discussed today Curr (more content not included)... Normal [facility] ECG COMPLETEon 10-10-2024 ECG COMPLETE Ventricular Rate : 6 7 BPM Atrial Rate : 67 BPM P-R Interval : 178 ms QRS Duration : 118 ms Q-T Interval : 424 ms QTC Calculation(Bazett) : 448 ms Calculated R [place] : -48 degrees Calculated T [place] : 31 degrees SINUS RHYTHM WITH PREMATURE SUPRAVENTRICULAR COMPLEXES LEFT ANTERIOR FASCICULAR BLOCK MINIMAL VOLTAGE CRITERIA FOR LVH, MAY BE NORMAL VARIANT ( R in aVL ) Confirmed by MD SEN, QAB ([id number]) on 10/15/2024 12:38:35 PM NAME : ZACHARY SHORT PID : [id number] : 1945 Gender : Male Race : ORD : [id number] Procedure Date : Oct 10 2024 09:20:28 Edit Date : Oct 15 2024 12:38:36 Diagnosis: SINUS RHYTHM WITH PREMATURE SUPRAVENTRICULAR COMPLEXES LEFT ANTERIOR FASCICULAR BLOCK MINIMAL VOLTAGE CRITERIA FOR LVH, MAY BE NORMAL VARIANT ( R in aVL ) Confirmed by MD CHATTERJEE QARAB ([id number]) on 10/15/2024 12:38:35 PM Test Reason : Z51.81 Medication monitoring encounter Location : 185 : [facility] Overread By : MD CHATTERJEE QARAB Edited By : MD CHATTERJEE QARAB Referred By : , Acquired by : Devon montanez [facility] Magnesium SerPl-mCncon 10-10 Magnesium [Mass/Vol] 2.1 mg/dL Normal 1.7-2.[address] [facility] Comment on above: Order Comment: Speci men Type: BLOOD SPECIMENOrdering Facility: [facility] Address: [address] [place] [address] Performed By: #### 2 4321-2, 78089-4, 6-3 ####[facility] [id number] [place] [address] [place] TSH SerPl-aCncon 10-10-2024 TSH Qn 3.280 m[IU]/L Normal 0.270-4.200 [facility] Comment on above: Order Comment: Speci men Type: BLOOD SPECIMENOrdering Facility: [facility] Address: [address] [place] [address] Performed By: #### 2 4321-2, 93286-8, 6-3 ####[facility] [id number] [place] [address] [place] VITAMIN D 25 HYDROXYon 10-10 25-hydroxyvitamin D3 [Mass/Vol] 32.2 ng/mL 31.0 - 80.0 ng/mL [facility] BD DXA - AXIAL SKELETONon 05 -12-2025 [...] years, Gender: Male SCANNER INFORMATION: DXA Model: [employer] - [employer] C [address] Date Scanned: 10/08/2024 8:44 AM CLINICAL HISTORY: [...] had a previous bone density in the [facility] or the previous bone density was performed on a different DXA machine (new, updated model or different location) within the [facility]. VERTEBRAL FRACTURE ASSESSMENT Not performed. IMPRESSION: THE [...] FOR MORE INFORMATION ABOUT DIAGNOSIS AND TREATMENT: [facility] for Osteoporosis and Metabolic Bone Disease:? [email or web address]/arthritis/oste o National Osteoporosis Foundation:? www.nof.org International Society of Clinical Densitometry www.iscd.org Managed Care Provider: ROCÍO Transcribe Date/Time: Oct 08 2024 8:54A Dictated by : ROXI DEVRIES MD This examination was interpreted and the report reviewed and electronically signed by: ROXI DEVRIES MD on Oct 08 2024 8:56AM EST [id number] 0.4 Normal [facility] DXA Skeletal system.axial Vi ews for bone densityOrdered By: Ccf Provider on 10-08-2024 LOWEST T-SCORE 0.4 [facility] [place] DXA Skeletal system.axial Vi ews for bone [...] FOR MORE INFORMATION ABOUT DIAGNOSIS AND TREATMENT: [facility] for Osteoporosis and Metabolic Bone Disease:? www.ccf.org/arthritis/oste o National Osteoporosis Foundation:? www.nof.org International Society of Clinical Densitometry www.iscd.org Managed Care Provider: ROCÍO Transcribe Date/Time: Oct 08 2024 8:54A Dictated by : ROXI DEVRIES MD This examination was interpreted and the report reviewed and electronically signed by: ROXI DEVRIES MD on Oct 08 2024 8:56AM [facility] DIVISION OF RADIOLOGY * * *Final Report* * * DATE OF EXAM: Oct 08 2024 8:44AM [facility] 0804 - BD DXA - AXIAL SKELETON / PROCEDURE REASON: Other osteoporosis, unspecified pathological fracture presence * * * * Physician Interpretation * * * * EXAMINATION: DXA BONE DENSITOMETRY BD DXA - AXIAL SKELETON PATIENT DEMOGRAPHICS: Age: 79 years, Gender: Male SCANNER INFORMATION: DXA Model: Room 8 Studio - [employer] C [address] Date Scanned: 10/08/2024 8:44 AM CLINICAL HISTORY: [...] had a previous bone density in the [facility] or the previous bone density was performed on a different DXA machine (new, updated model or different location) within the [facility]. VERTEBRAL FRACTURE ASSESSMENT Not performed. DIVISION OF [...] years, Gender: Male SCANNER INFORMATION: DXA Model: Room 8 Studio - [employer] C [address] Date Scanned: 10/08/2024 8:44 AM CLINICAL HISTORY: [...] had a previous bone density in the [facility] or the previous bone density was performed on a different DXA machine (new, updated model or different location) within the [facility]. VERTEBRAL FRACTURE ASSESSMENT Not performed. IMPRESSION IMPRESSION: [...] FOR MORE INFORMATION ABOUT DIAGNOSIS AND TREATMENT: [facility] for Osteoporosis and Metabolic Bone Disease:? www.ccf.org/arthritis/oste o National Osteoporosis Foundation:? www.nof.org International Society of Clinical Densitometry www.iscd.org Managed Care Provider: ROCÍO Transcribe Date/Time: Oct 08 2024 8:54A Dictated by : ROXI DEVRIES MD This examination was interpreted and the report reviewed and electronically signed by: ROXI DEVRIES MD on Oct 08 2024 8:56AM EST [facility] Radiology Study observation (narrative) [facility] Bacteria Ur Culton 5 Bacteria identified Cx [...] , Intermediate >32 , Resistant >64 Abnormal [facility] Comment on above: Performed By: #### U A #### [facility] CLIA [id number] [address] [place] [address] STATES OF [facility] CNOVon 09-25-2024 CNOV Office Visit (UROLMD ) -- ZACHARY SHORT ([id number]) 1945 M Date Time Provider Department 09/25/24 [...] Date Value 08/28/2024 Negative 08/31/2011 Negative Specific [place], Ur (no units) Date Value 08/28/2024 1.015 [...] pain).Disp: Rfl: azelastine 0.1% nasal sprayUse 1 Goddard in each nostril two times a day.Disp: 30 mLRfl: 1 lisinopril-hydroCHLOROthia zide (ZESTORETIC) 10-12.5 mg per tabletTake 1 tablet by mouth once daily.Disp: 90 tabletRfl: 3 ergocalciferol 50,000 unit capsule (VITAMIN D2, DRISDOL)Take 1 capsule by mouth two times a week. TO BE TAKEN ORALLY DIRECTED. Take 1 tablet by mouth twice weekly [id number], then decrease to 1 tablet weekly.Disp: 8 [...] color, textur (more content not included)... Normal [facility] CNOVon 09-18-2024 CNOV Office Visit (RADTWS ) -- ZACHARY SHORT ([id number]) 1945 M Date Time Provider Department 09/18/24 2:00 PM VINCE HUFFMAN During your visit today, we recorded the following information about you: Temperature Pulse Blood pressure 97.7 degrees 64/minute 111/58 Mali Fernández, RN 09/18/2024 2:30 PM Signed Radiation Therapy - Nursing Note (OTV) PATIENT NAME: Zachary Short PATIENT September 18, 2024 [facility] FACILITY/LOCATION: [place] NURSING NOTE TYPE: PROSTATE - MALE PELVIS Subjective Data some diarrhea 2 times a day, afraid to take imodium Additional Data Do you want to see a Residential Housekeeper? No Status: Patient is male Stress Scale: On a scale of 0 to 10, what number best describes how much distress you have experienced in the past week?(0 being no distress and 10 being extreme distress) 2 Social work notified: Pt denied need to see social organization professor at this time. Nursing Assessment Fatigue: moderate; [...] Stage IIA, T1c cN0, prostate adenocarcinoma with Whittier score 7 (3+4), grade group 2, and [...] - azelastine 0.1% nasal spray Use 1 Goddard in each nostril two times a day. [...] Take 1 tablet by mouth twice weekly [id number], then decrease to 1 tablet weekly. - [...] Seborrheic Kerato (more content not included)... Normal [facility] CNOVon 09-11-2024 CNOV Office Visit (RADTWS ) -- ZACHARY SHORT ([id number]) 1945 M Date Time Provider Department 09/11/24 2:00 PM VINCE HUFFMAN During your visit today, we recorded the following information about you: Temperature Pulse Blood pressure 97.1 degrees 82/minute 114/66 Mali Fernández RN 09/11/2024 2:23 PM Signed Radiation Therapy - Nursing Note (OTV) PATIENT NAME: Zachary Short PATIENT September 11, 2024 [facility] FACILITY[facility]LOCATION: [facility] NOTE TYPE: PROSTATE - MALE PELVIS Subjective Data some fatigue, a little diarrhea has not taken imodium, seems to alternate with constipation Additional Data Do you want to see a Residential Housekeeper? No Status: Patient is male Stress Scale: On a scale of 0 to 10, what number best describes how much distress you have experienced in the past week?(0 being no distress and 10 being extreme distress) 3 Social work notified: Pt denied need to see social organization professor at this time. Nursing Assessment Fatigue: increased [...] - azelastine 0.1% nasal spray Use 1 Goddard in each nostril two times a day. [...] Take 1 tablet by mouth twice weekly [id number], then decrease to 1 tablet weekly. - [...] Irritated//Inflamed Sebor (more content not included)... Normal [facility] CNOVon 09-04-2024 CNOV Office Visit (RADTWS ) -- HANZACHARY PATEL ([id number]) 1945 M Date Time Provider Department 09/04/24 2:00 PM VINCE HUFFMAN RADTWS During your visit today, we recorded the following information about you: Temperature Pulse Blood pressure 97.5 degrees 80/minute 142/67 Mali Fernández, LAY 09/04/2024 2:33 PM Signed Radiation Therapy - Nursing Note (OTV) PATIENT NAME: Zachary Short PATIENT September 04, 2024 [facility] FACILITY[facility]LOCATION: [place] NURSING NOTE TYPE: PROSTATE - MALE PELVIS Subjective Data has mahoney in, has finished Keflex has also finished pyridium Additional Data Do you want to see a Residential Housekeeper? No Status: Patient is male Stress Scale: On a scale of 0 to 10, what number best describes how much distress you have experienced in the past week?(0 being no distress and 10 being extreme distress) 0 Social work notified: Pt denied need to see social organization professor at this time. Nursing Assessment Fatigue: increased [...] Stage IIA, T1c cN0, prostate adenocarcinoma with Whittier score 7 (3+4), grade group 2, and [...] - azelastine 0.1% nasal spray Use 1 Goddard in each nostril two times a day. [...] Take 1 tablet by mouth twice weekly [id number], then decrease to 1 tablet weekly. - [...] [L57.0] 05/17/2008 (more content not included)... Normal [facility] Culture, Blood (WB)on 2024 CUB Blood cultures x2, f rom two different sites No growth in 5 days. Normal [facility] Comment on above: Performed By: #### L 400.0001 #### [facility] [address] [place], [place], [id number] Urine Cultureon 08-31-2024 [facility] Enterobacter cloacae complex [place] Count 80,000-100,000 Enterobacter cloacae complex: REACTION Cefepime Islt DYLAN <=0.12 Ciprofloxacin Islt DYLAN <=0.06 S Gentamicin Islt DYALN <=1 S levoFLOXacin Islt DYLAN <=0.12 S Meropenem Islt DYLAN <=0.25 S Nitrofurantoin Islt DYLAN <=16 S Pip+Tazo Islt DYLAN <=4 S TMP SMX Islt DYLAN <=20 S Normal [facility] Comment on above: Performed By: #### L 400.0001 #### [facility] [address] [place], [place], [address] Abdomen/Pelvis without Conto n 08-29-2024 Abdomen/Pelvis without Cont [facility] [address] [place], [place] [address] Abdomen/Pelvis without Cont MR#: [id number] Acct: [id number] Name: ZACHARY SHORT Rep #: [id number] : 1945 M 79 From: Brayden Austin MD PCP: Dr. Ailin Pierson MD Status: PRE ER Study: Abdomen/Pelvis without Cont Date of Exam: 07/24 Exam# [id number] Ordering Dr: Lamont Fajardo DO PROCEDURE: ABDOMEN/PELVIS [...] 4. Additional description as above. Reading Location: [id number] CC: Dr. Ailin Pierson MD; Dr. Lamont Fajardo, Managed Care Provider: Signed Normal [facility] Absolute neutrophil countOrd ered By: ED PROVIDER on 08-29-2024 Neutrophils (Bld) [#/Vol] 6.3 10*3/uL 2.0-7.7 [facility] Anion gap in Serum or Plasma Ordered By: ED PROVIDER on 08-29-2024 Anion gap [Moles/Vol] 12 mmol/L 5-15 [facility] BUN/creatinine ratioOrdered By: ED PROVIDER on 08-29-2024 Urea nitrogen/Creatinine [Mass ratio] 24.2 mg/mg High 10-20 [facility] Basophil percentageOrdered B y: ED PROVIDER on 08-29-2024 Basophils/100 WBC (Bld) 1.1 % High 0-1 [facility] Bilirubin Test strip Ql (U)O rdered By: Lamont Fajardo on 08-29-2024 Bilirubin Ql (U) Negative Negative [facility] Bilirubin, totalOrdered By: ED PROVIDER on 08-29-2024 Bilirubin [Mass/Vol] 0.22 mg/dL 0.00-1.30 [facility] CBC W/Diff, Automatedon 04 PLT EST ADEQUATE Normal ADEQ [facility] Comment on above: Performed By: #### L 400.0001 #### [facility] [address] [place], [address] [facility] ([id number]) 1945 M Date Time Provider Department 08/29/24 [...] 10:33 AM Signed Pt was seen at [facility]. Records printed and given to Dr Huffman. [...] - azelastine 0.1% nasal spray Use 1 Goddard in each nostril two times a day. [...] Take 1 tablet by mouth twice weekly h0cpret, then decrease to 1 tablet weekly. - [...] Status:Closed by MALI FERNÁNDEZ on 08/29/24 Normal [facility] Carbon dioxide, total [Moles /volume] in Central venous bloodOrdered By: ED PROVIDER on 08-29-2024 CO2 [Moles/Vol] 22.8 mmol/L 21.0-32.0 [facility] Chloride assayOrdered By: ED PROVIDER on 08-29-2024 Chloride [Moles/Vol] 101 mmol/L 98-108 [facility] Comprehensive Metabolic Prof ilon 08-29-2024 Albumin [Mass/Vol] 4.0 g/dL Normal 3.4-4.8 [facility] Comment on above: Performed By: #### L 400.0001 #### [facility] [address] [place], [place], [id number] Albumin/Globulin [Mass ratio] 0.9 {ratio} Normal 0.9-2.4 [facility] Comment on above: Performed By: #### L 400.0001 #### [facility] [address] [place], [address] ALK PHOS 82 U/L Normal 40-129 [facility] Comment on above: Performed By: #### L 400.0001 #### [facility] [address] [place], [address] ALT [Catalytic activity/Vol] 22 U/L Normal <=46 [facility] Comment on above: Performed By: #### L 400.0001 #### [facility] [address] [place], [address] AST [Catalytic activity/Vol] 26 U/L Normal <=37 [facility] Comment on above: Performed By: #### L 400.0001 #### [facility] [address] [place], [address] Bilirubin [Mass/Vol] 0.22 mg/dL Normal 0.00-1.30 [facility] Comment on above: Performed By: #### L 400.0001 #### [facility] [address] [place], [address] BUN/CRE 24.2 RATIO High 10-20 [facility] Comment on above: Performed By: #### L 400.0001 #### [facility] [address] [place], [address] Calcium [Mass/Vol] 9.6 mg/dL Normal 7.6-11.0 [facility] Comment on above: Performed By: #### L 400.0001 #### [facility] [address] [place], [address] Chloride [Moles/Vol] 101 mmol/L Normal 98-108 [facility] Comment on above: Performed By: #### L 400.0001 #### [facility] [address] [place], [address] CO2 [Moles/Vol] 22.8 mmol/L Normal 21.0-32.0 [facility] Comment on above: Performed By: #### L 400.0001 #### [facility] [address] [place], [address] Creatinine [Mass/Vol] 1.21 mg/dL High 0.70-1.20 [facility] Comment on above: Performed By: #### L 400.0001 #### [facility] [address] [place], [address] ECRCL 60.16 ml/min Normal 50-250 [facility] Comment on above: Performed By: #### L 400.0001 #### [facility] [address] [place], [address] GAP 12 Normal 5-15 [facility] Comment on above: Performed By: #### L 400.0001 #### [facility] [address] [place], [address] GFR/1.73 sq M.predicted among non-blacks MDRD (S/P/Bld) [Vol rate/Area] 60 mL/min/{1.73_m2} Normal >60 [facility] Comment on above: Result Comment: mL/m in/1.73m2 CKD-EPI Creatinine Equation (2020) Performed By: #### L 400.0001 #### [facility] [address] [place], [address] Globulin (S) [Mass/Vol] 4.3 g/dL High 2.2-4.2 [facility] Comment on above: Performed By: #### L 400.0001 #### [facility] [address] [place], [address] Glucose [Mass/Vol] 98 mg/dL Normal 70-99 [facility] Comment on above: Performed By: #### L 400.0001 #### [facility] [address] [place], [address] Potassium [Moles/Vol] 4.0 mmol/L Normal 3.3-5.1 [facility] Comment on above: Performed By: #### L 400.0001 #### [facility] [address] [place], [address] Sodium [Moles/Vol] 136 mmol/L Normal 133-145 [facility] Comment on above: Performed By: #### L 400.0001 #### [facility] [address] [place], [place], [id number] T PROT 8.2 g/dL Normal 5.9-8.4 [facility] Comment on above: Performed By: #### L 400.0001 #### [facility] [address] [place], [address] Urea nitrogen [Mass/Vol] 29 mg/dL High 4-19 [facility] Comment on above: Performed By: #### L 400.0001 #### [facility] [address] [place], [place], [id number] Emergency Department Summary on 08-29-2024 Emergency Department Summary [facility] Medical Records Department [address] [place] [address] Emergency Department Summary 08/29/24 MR#: [id number] Acct: [id number] Name: ZACHARY SHORT Rep #: [id number] : 1945 79 From: Lamont Fajardo DO [...] had history of retention. He sees a [facility] urologist and also sees Dr. Soto. [facility] Medical History Acute on chronic urinary [...] or tender (more content not included)... Normal [facility] Eosinophil percentageOrdered By: ED PROVIDER on 08-29-2024 Eosinophils/100 WBC (Bld) 8.4 % High 0-5 [facility] Epithelial cells.squamous LM Ql (Urine sed)Ordered By: Lamont Fajardo on 08-29-2024 Epithelial cells.squamous LM.HPF (Urine sed) [#/Area] 0 /[HPF] 0-5 [facility] Erythrocyte distribution wid th (RBC) [Ratio]Ordered By: ED PROVIDER on 08-29-2024 Erythrocyte distribution width (RBC) [Entitic vol] 51.2 fL High 35.1-43.9 [facility] Erythrocyte distribution wid th ratioOrdered By: ED PROVIDER on 08-29-2024 Erythrocyte distribution width (RBC) [Ratio] 14.1 % 11.6-14.6 [facility] Estimation of creatinine lopez aranceOrdered By: ED PROVIDER on 08-29-2024 Estimated Creatinine Clearance Calc 60.16 ml/min 50-250 [facility] GFR/1.73 sq M.predicted jimenez g non-blacks MDRD (S/P/Bld) [Vol rate/Area]Ordered By: ED PROVIDER on 08-29-2024 Estimated GFR (MDRD) Non-Af Amer 60 >60 [facility] Comment on above: mL/min/1.73m2 CKD-EP I Creatinine Equation (2020) Glucose Ql (U)Ordered By: eLatha Fajardo on 08-29-2024 Urine Glucose (UA) Normal mg/dl Normal [facility] Hematocrit Auto (Bld) [Volum e fraction]Ordered By: ED PROVIDER on 08-29-2024 Hematocrit (Bld) [Volume fraction] 33.8 % Low 40-54 [facility] Hemoglobin measurementOrdere d By: ED PROVIDER on 08-29-2024 Hemoglobin (Bld) [Mass/Vol] 11.6 g/dL Low 13.0-16.5 [facility] Immature granulocytes/100 WB C Auto (Bld)Ordered By: ED PROVIDER on 08-29-2024 Immature granulocytes/100 WBC (Bld) 0.800 % 0.0-0.9 [facility] Comment on above: IG% - Immature Granu locytes (promyelocytes, myelocytes and metamyelocytes) > 1% indicates that a LEFT SHIFT is Present. Ketones Test strip Ql (U)Ord ered By: Lamont Fajardo on 08-29-2024 Ketones Ql (U) Negative Negative [facility] - Chemistry and C hemistry - challengeOrdered By: ED PROVIDER on 08-29-2024 AST [Catalytic activity/Vol] 26 U/L <38 [facility] Lactic Acidon 08-29-2024 Lactate [Moles/Vol] 1.3 mmol/L Normal 0.0-2.0 [facility] Comment on above: Order Comment: Y Performed By: #### L 503.600 ####[facility] [address] [place], [place], [address] Lactic acid measurementOrder ed By: Lamont Fajardo on 08-29-2024 Lactate [Moles/Vol] 1.3 mmol/L 0.0-2.0 [facility] Lipaseon 08-29-2024 Lipase [Catalytic activity/Vol] 47 U/L Normal 13-75 [facility] Comment on above: Result Comment: Linda armando note: LIPASE revised reference range effective 22. New Lipase methodology. Expected to produce lower values than the previous assay method. NEW Reference Range: 13 - 75 U/L Performed By: #### L 100.0100, L500.4050, L501.2450, L503.6005 #### [facility] [address] [place], [address] Lipase measurementOrdered By : ED PROVIDER on 08-29-2024 Lipase [Catalytic activity/Vol] 47 U/L 13-75 [facility] Comment on above: Please note:LIPASE r evised reference range effective 22. New Lipase methodology. Expected to produce lower values than the previous assay method. NEW Reference Range: 13 - 75 U/L Lymphocytes Auto (Unsp spec) [#/Vol]Ordered By: ED PROVIDER on 08-29-2024 Lymphocytes (Bld) [#/Vol] 0.73 10*3/uL Low 0.83-4.51 [facility] Lymphocytes/100 WBC Auto (Un sp spec)Ordered By: ED PROVIDER on 08-29-2024 Lymphocytes/100 WBC (Bld) 8.3 % Low 19-41 [facility] MCV (mean corpuscular volume ) determinationOrdered By: ED PROVIDER on 08-29-2024 MCV (RBC) [Entitic vol] 100.3 fL High 80-94 [facility] Mean corpuscular hemoglobin (MCH) determinationOrdered By: ED PROVIDER on 08-29-2024 MCH (RBC) [Entitic mass] 34.4 pg High 27.0-32.0 [facility] Mean corpuscular hemoglobin concentration (MCHC) determinationOrdered By: ED PROVIDER on 08-29-2024 MCHC (RBC) [Mass/Vol] 34.3 g/dL 32-36 [facility] Mean platelet volume determi nationOrdered By: ED PROVIDER on 08-29-2024 Platelet mean volume (Bld) [Entitic vol] 10.0 fL 6.2-12.0 [facility] Microscopic analysis of urin e for red blood cells (RBC)Ordered By: Lamont Fajardo on 08-29-2024 Urine RBC 0 SEEN /hpf 0-5 [facility] Monocyte percentageOrdered B y: ED PROVIDER on 08-29-2024 Monocytes/100 WBC (Bld) 9.9 % 0-10 [facility] Mucus LM Ql (Urine sed)Order ed By: Lamont Fajardo on 08-29-2024 Mucus Ql (Urine sed) 0 SEEN /hpf [facility] Neutrophil percentageOrdered By: ED PROVIDER on 08-29-2024 Neutrophils/100 WBC (Bld) 71.5 % High 47-70 [facility] Nitrite Test strip Ql (U)Ord ered By: Lamont Fajardo on 08-29-2024 Nitrite Ql (U) Positive High Negative [facility] Nucleated red blood cell per centageOrdered By: ED PROVIDER on 08-29-2024 Nucleated RBC/100 WBC (Bld) [Ratio] 0 % 0-5 [facility] Platelet countOrdered By: ED PROVIDER on 08-29-2024 Platelets (Bld) [#/Vol] 219 10*3/uL 150-450 [facility] Platelets LM Ql (Bld)Ordered By: Lamont Fajardo on 08-29-2024 Platelet Estimate ADEQUATE ADEQ [facility] Potassium (Unsp spec) [Mass/ Vol]Ordered By: ED PROVIDER on 08-29-2024 Potassium [Moles/Vol] 4.0 mmol/L 3.3-5.1 [facility] Protein Test strip Ql (U)Ord ered By: Lamont Fajardo on 08-29-2024 Protein Ql (U) 100 mg/dl High Negative [facility] RBC Auto (Bld) [#/Vol]Ordere d By: ED PROVIDER on 08-29-2024 RBC (Bld) [#/Vol] 3.37 10*6/uL Low 4.6-6.2 [facility] Serum creatinine measurement (mass/volume)Ordered By: ED PROVIDER on 08-29-2024 Creatinine [Mass/Vol] 1.21 mg/dL High 0.70-1.20 [facility] Serum globulin measurementOr dered By: ED PROVIDER on 08-29-2024 Globulin (S) [Mass/Vol] 4.3 g/dL High 2.2-4.2 [facility] Serum glucose measurement (m ass/volume)Ordered By: ED PROVIDER on 08-29-2024 Glucose [Mass/Vol] 98 mg/dL 70-99 [facility] Serum or plasma alanine anderson otransferase (ALT) measurementOrdered By: ED PROVIDER on 08-29-2024 ALT [Catalytic activity/Vol] 22 U/L <47 [facility] Serum or plasma albumin valentin urement (mass/volume)Ordered By: ED PROVIDER on 08-29-2024 Albumin [Mass/Vol] 4.0 g/dL 3.4-4.8 [facility] Serum or plasma albumin/glob ulin mass ratioOrdered By: ED PROVIDER on 08-29-2024 Albumin/Globulin [Mass ratio] 0.9 {ratio} 0.9-2.4 [facility] Serum or plasma alkaline herb sphatase measurementOrdered By: ED PROVIDER on 08-29-2024 ALP [Catalytic activity/Vol] 82 U/L 40-129 [facility] Serum or plasma calcium valentin urement (mass/volume)Ordered By: ED PROVIDER on 08-29-2024 Calcium [Mass/Vol] 9.6 mg/dL 7.6-11.0 [facility] Serum or plasma urea nitroge n measurement (mass/volume)Ordered By: ED PROVIDER on 08-29-2024 Urea nitrogen [Mass/Vol] 29 mg/dL High 4-19 [facility] Sodium levelOrdered By: ED Keely MENON on 08-29-2024 Sodium [Moles/Vol] 136 mmol/L 133-145 [facility] Total proteinOrdered By: ED PROVIDER on 08-29-2024 Protein [Mass/Vol] 8.2 g/dL 5.9-8.4 [facility] Urinalysis, Completeon 08-29 BACTERIA 1+ /hpf Normal None Seen [facility] Comment on above: Order Comment: CLEAN CATCH Performed By: #### L 100.0100, L500.4050, L501.2450, L503.6005 #### [facility] [address] [place], [address] WBC 50-100 SEEN Normal 0-5 [facility] Comment on above: Order Comment: CLEAN CATCH Performed By: #### L 100.0100, L500.4050, L501.2450, L503.6005 #### [facility] [address] [place], [address] EPI,SQUAMOUS 0 SEEN Normal 0-5 [facility] Comment on above: Order Comment: CLEAN CATCH Performed By: #### L 100.0100, L500.4050, L501.2450, L503.6005 #### [facility] [address] [place], [address] Mucus Ql (Urine sed) 0 SEEN Normal [facility] Comment on above: Order Comment: CLEAN CATCH Performed By: #### L 100.0100, L500.4050, L501.2450, L503.6005 #### [facility] [address] [place], [address] RBC 0 SEEN Normal [address] [place] [address] Comment on above: Order Comment: CLEAN CATCH Performed By: #### L 100.0100, L500.4050, L501.2450, L503.6005 #### [facility] [address] [place] [place], [address] Urine blood detectionOrdered By: Lamont Fajardo on 08-29-2024 Urine Occult Blood 50 /ul High Negative [facility] Urine clarityOrdered By: Ava Fajardo on 08-29-2024 Clarity (U) Cloudy Clear [facility] Urine color determinationOrd ered By: Lamont Fajardo on 08-29-2024 Color (U) Yellow Yellow [facility] Urine leukocyte esterase det ection by dipstickOrdered By: Lamont Fajardo on 08-29-2024 Leukocyte esterase Test strip Ql (U) 500 /ul High Negative [facility] Urine pHOrdered By: Remus Un gur on 08-29-2024 pH (U) 6.0 [pH] 5.0 - 8.0 [facility] Urine sediment bacteria coun t by microscopy (number/high power field)Ordered By: Remus Ungsandra on 08-29-2024 Bacteria LM.HPF (Urine sed) [#/Area] 1 /[HPF] None Seen [facility] Urine specific gravity measu rementOrdered By: Remus Ungsandra on 08-29-2024 Specific gravity (U) [Rel density] 1.015 1.002-1.030 [facility] Urobilinogen Ql (U)Ordered B y: Remus Ungsandra on 08-29-2024 Urine Urobilinogen Normal mg/dl Normal [facility] White blood cell (WBC) count Ordered By: ED PROVIDER on 08-29-2024 WBC (Bld) [#/Vol] 8.8 10*3/uL 4.4-11.0 [facility] White blood cell countOrdere d By: Remus Ungsandra on 08-29-2024 Urine WBC 50-100 SEEN /hpf 0-5 [facility] CNOVon 08-28-2024 CNOV Office Visit (RADTWS ) -- HANZACHARY Bates ([id number]) 1945 M Date Time Provider Department 08/28/24 2:00 PM SOLO BAKER During your visit today, we recorded the following information about you: Temperature Pulse Blood pressure 97.5 degrees 81/minute 116/63 Solo Baker MD 09/05/2024 12:31 PM Addendum Radiation Therapy - Nursing Note (OTV) PATIENT NAME: Zachary Short PATIENT August 28, 2024 [facility] FACILITY[facility]LOCATION: [place] NURSING NOTE TYPE: PROSTATE [...] Data Do you want to see a Residential Housekeeper? No Status: Patient is male Stress Scale: On a scale of 0 to 10, what number best describes how much distress you have experienced in the past week?(0 being no distress and 10 being extreme distress) 6 Social work notified: Pt denied need to see social organization professor at this time. Nursing Assessment Fatigue: none [...] or so., SIGNED by: Mali Fernández RN [facility] STAFF PHYSICAN NOTE OF PERSONAL INVOLVEMENT [...] [C61] Order(s):URINALYSIS, DIPSTICK ONLY [SQUA] Order #: [id number] FUTURE Prescriptions as of 09/05/2024 - citalopram [...] - azelastine 0.1% nasal spray Use 1 Goddard in each nostril two times a day. [...] Take 1 tablet by mouth twice weekly [id number], then decrease to 1 tablet weekly. - [...] Solar l (more content not included)... Normal [facility] Office Visit (INTMWS ) -- ZACHARY SHORT ([id number]) 1945 M Date Time Provider Department 08/28/24 [...] However, he reports a recent fall around [place] on license of [facility], resulting in a contusion that [...] kg/m? GENERAL (more content not included)... Normal [facility] URINALYSIS, DIPSTICK ONLYon 08-28-2024 Bilirubin Ql (U) Negative Negative [facility] Clarity (Unsp spec) Turbid Abnormal Clear [facility] Color (U) Yellow Yellow [facility] Glucose Test strip (U) [Mass/Vol] Negative Negative [facility] Hemoglobin Ql (U) 1+ Abnormal Negative [facility] Interpretation and review of laboratory results Abnormal [facility] Ketones Ql (U) Negative Negative [facility] Leukocyte esterase Test strip Ql (U) 3+ Abnormal Negative [facility] Nitrite Ql (U) Negative Negative [facility] pH (U) 6 [pH] NINF - 8.5 [facility] Protein (U) [Mass/Vol] 2+ Abnormal Negative [facility] Specific gravity (U) [Rel density] 1.015 1.005 - 1.030 [facility] Urobilinogen Ql (U) 0.2 EU/dL 0.2-1.0 EU/dL [facility] in [facility] Bilirubin Ql (U) Negative Normal Negative [facility] Comment on above: Order Comment: Speci men Type: URINE SPECIMEN Ordering Facility: [facility] Address: [address] [place] [address] Performed By: #### U A #### [facility] CLIA [id number] [address] [place] [address] [place] Clarity (Unsp spec) Turbid Abnormal Clear [facility] Comment on above: Order Comment: Speci men Type: URINE SPECIMEN Ordering Facility: [facility] Address: [address] [place] [address] Performed By: #### U A #### [facility] CLIA [id number] [address] [place] [address] [place] Color (U) Yellow Normal Yellow [facility] Comment on above: Order Comment: Speci men Type: URINE SPECIMEN Ordering Facility: [facility] Address: [address] [place] [address] Performed By: #### U A #### [facility] CLIA [id number] [address] [place] [address] [place] Glucose Test strip (U) [Mass/Vol] Negative Normal Negative [facility] Comment on above: Order Comment: Speci men Type: URINE SPECIMEN Ordering Facility: [facility] Address: [address] [place] [address] Performed By: #### U A #### [facility] CLIA [id number] [address] [place] [address] [place] Hemoglobin Ql (U) 1+ Abnormal Negative [facility] Comment on above: Order Comment: Speci men Type: URINE SPECIMEN Ordering Facility: [facility] Address: [address] [place] [address] Performed By: #### U A #### [facility] CLIA [id number] [address] [place] [address] [place] Ketones Ql (U) Negative Normal Negative [facility] Comment on above: Order Comment: Speci men Type: URINE SPECIMEN Ordering Facility: [facility] Address: [address] [place] [address] Performed By: #### U A #### [facility] CLIA [id number] [address] [place] [address] [place] Leukocyte esterase Test strip Ql (U) 3+ Abnormal Negative [facility] Comment on above: Order Comment: Speci men Type: URINE SPECIMEN Ordering Facility: [facility] Address: [address] [place] [address] Performed By: #### U A #### [facility] CLIA [id number] [address] [place] [address] [place] Nitrite Ql (U) Negative Normal Negative [facility] Comment on above: Order Comment: Speci men Type: URINE SPECIMEN Ordering Facility: [facility] Address: [address] [place] [address] Performed By: #### U A #### [facility] CLIA [id number] [address] [place] [address] [place] pH (U) 6.0 [pH] Normal <8.5 [facility] Comment on above: Order Comment: Speci men Type: URINE SPECIMEN Ordering Facility: [facility] Address: [address] [place] [address] Performed By: #### U A #### [facility] CLIA [id number] [address] [place] [address] [place] Protein (U) [Mass/Vol] 2+ Abnormal Negative [facility] Comment on above: Order Comment: Speci men Type: URINE SPECIMEN Ordering Facility: [facility] Address: [address] [place] [address] Performed By: #### U A #### [facility] IA [id number] [address] [place] [address] [place] Specific gravity (U) [Rel density] 1.015 Normal 1.005-1.030 [facility] Comment on above: Order Comment: Speci men Type: URINE SPECIMEN Ordering Facility: [facility] Address: [address] [place] [address] Performed By: #### U A #### [facility] CLIA [id number] [address] [place] [address] [place] Urobilinogen Ql (U) 0.2 EU/dL Normal 0.2-1.0 EU/dL [facility] Comment on above: Order Comment: Speci men Type: URINE SPECIMEN Ordering Facility: [facility] Address: [address] [place] [address] Performed By: #### U A #### [facility] CLIA [id number] [address] [place] [address] [place] CNPNon 08-22-2024 CNPN Telephone (AKPRAD) -- ZACHARY SHORT ([id number]) 1945 M Date Time Provider Department 08/22/24 JUAN BLANTON JR During your visit today, we recorded the following information about you: Juan Blanton Jr., MD 08/22/2024 8:16 AM Signed Needs appt with Muriel Barnhart 08/22/2024 8:45 AM Signed Called and left vox Patient is scheduled September 12, 2024 at 12:45 pm, [facility] location Thank you Muriel Allergies As of [...] - azelastine 0.1% nasal spray Use 1 Goddard in each nostril two times a day. [...] Take 1 tablet by mouth twice weekly [id number], then decrease to 1 tablet weekly. - [...] Encounter Status:Closed by JUAN BLANTON on 08/22/24 [facility] CNOVon 08-21-2024 CNOV Office Visit (RADTWS ) -- HANZACHARY ([id number]) 1945 M Date Time Provider Department 08/21/24 [...] NAME: Zachary Short PATIENT August 21, 2024 [facility] FACILITY[facility]LOCATION[facility] NOTE TYPE: PROSTATE - MALE PELVIS Subjective Data I'm feeling weaker. I'm cathing myself at 6-7 pm to help me emptying my bladder. I'm not getting any sleep d/t being up every hour at night time. Additional Data Do you want to see a Residential Housekeeper? No Status: Patient is male Stress Scale: On a scale of 0 to 10, what number best describes how much distress you have experienced in the past week?(0 being no distress and 10 being extreme distress) 0 Social work notified: Pt denied need to see social organization professor at this time. Nursing Assessment Fatigue: increased [...] - azelastine 0.1% nasal spray Use 1 Goddard in each nostril two times a day. [...] Take 1 tablet by mouth twice weekly [id number], then decrease to 1 tablet weekly. - naproxen (NAPROSYN) 500 mg tablet Take 1 tablet by mouth two times a day as needed (for pain/inflammation). Take with food. - polyethylene glycol 3350 (MIRALAX) 17 gram/dose powder Take 17 g by mouth once daily. Dissolve dose in 4 - 8 ounces of liquid and ta (more content not included)... Normal [facility] CNOVon 08-14-2024 CNOV Office Visit (RADTWS ) -- HANZACHARY PATEL ([id number]) 1945 M Date Time Provider Department 08/14/24 2:00 PM VINCE HUFFMAN RADTWS During your visit today, we recorded the following information about you: Temperature Pulse Blood pressure 97.9 degrees 85/minute 122/72 Mali Fernández, RN 08/14/2024 2:33 PM Signed Radiation Therapy - Nursing Note (OTV) PATIENT NAME: Zachary Short PATIENT August 14, 2024 [facility] FACILITY/LOCATION: [place] NURSING NOTE TYPE: PROSTATE - MALE PELVIS Subjective Data no complaints so far with treatments Additional Data Do you want to see a Residential Housekeeper? No Status: Patient is male Stress Scale: On a scale of 0 to 10, what number best describes how much distress you have experienced in the past week?(0 being no distress and 10 being extreme distress) 5 Social work notified: Pt denied need to see social organization professor at this time. Nursing Assessment Fatigue: none [...] Vince Huffman MD Allergies As of Date: 08/14/2024 [...] - azelastine 0.1% nasal spray Use 1 Goddard in each nostril two times a day. [...] Take 1 tablet by mouth twice weekly [id number], then decrease to 1 tablet weekly. - [...] 10/30/2009 Hypertro (more content not included)... Normal [facility] CNNURSEon 08-02-2024 CNNURSE Nurse Visit (RADTWS) -- ZACHARY SHORT ([id number]) 1945 M Date Time Provider Department 08/02/24 1:30 PM NURSE RADT [facility] RADTWS During your visit today, we recorded the following information about you: Poonam Rice RN 08/02/2024 1:29 PM Signed Radiation Therapy - Patient Education Note PATIENT NAME: Zachary Short PATIENT August 02, 2024 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 Patient has an Onbody or Implanted device: [...] - azelastine 0.1% nasal spray Use 1 Goddard in each nostril two times a day. [...] Take 1 tablet by mouth twice weekly [id number], then decrease to 1 tablet weekly. - [...] Encounter Status:Closed by POONAM RICE on 08/02/24 [facility] Jluis 08-01-2024 CNPN Telephone ([employer]TWS) -- ZACHARY SHORT ([id number]) 1945 M Date Time Provider Department 08/01/24 [...] - azelastine 0.1% nasal spray Use 1 Goddard in each nostril two times a day. [...] Take 1 tablet by mouth twice weekly [id number], then decrease to 1 tablet weekly. - [...] Encounter Status:Closed by VINCE HU[facility]MAN [facility]01/[facility] (RADTWS[facility] -- ZACHARY SHORT ([id number]) 1945 M Date Time Provider Department 07/23/24 VINCE HUFFMAN RADTWS During your visit today, we recorded the following information about you: Christopher Broderick 07/23/2024 10:39 AM Signed Patient called stating he has to cath every day and has 6 catheters left. He did receive some from [facility] when he was inpatient. They are called SplitGigs soft. they are 13 inches, 33 cm. lubricated. Patient is asking if this is something we can prescribe. Please advise. Kelvin Dowd 07/23/2024 12:01 PM Signed Spoke w pt and he is seeing urologist at [facility], I advised him to call them and get order for supplies. Kelvin Dodw Allergies As of Date: 07/23/2024 (No Known Allergies) Date Reviewed: 06/29/2024 Reviewed by: Poonam Rice, RN - Fully Assessed Reason for Visit: Patient Question [9123] Prescriptions as of 07/23/2024 - oxyCODONE-acetaminophen 5-325 mg (PERCOCET) Take 1-2 tablets by mouth every 4 hours as needed (for pain). - ramelteon (ROZEREM) 8 mg tablet Take 1 tablet by mouth daily at bedtime. - azelastine 0.1% nasal spray Use 1 Goddard in each nostril two times a day. [...] Take 1 tablet by mouth twice weekly [id number], then decrease to 1 tablet weekly. - [...] Status:Closed by KELVIN DOWD on 07/23/24 Normal [facility] NM PET/CT PROSTATE WBon 06-30 NM PET/CT PROSTATE WB * * *Final Report* * * * * * SEE BOTTOM OF REPORT FOR ADDENDED TEXT * * * DATE OF EXAM: Jul 16 2024 11:14AM [facility] 0093 - NM PET/CT PROSTATE WB / PROCEDURE REASON: Prostate cancer (HCC) * * * * Physician Interpretation * * * * * * * * * * * * ORIGINAL REPORT * * * * * * * * EXAMINATION: PROSTATE-SPECIFIC MEMBRANE ANTIGEN PET-CT CLINICAL HISTORY: 78-year-old male with history of prostate cancer. * Prostate Cancer Grade: Grade Group 2 (Whittier score 3 + 4) * PSA: 17.31 [...] one month prior to the PET/CT scan. Managed Care Provider: [facility] Transcribe Date/Time: Jul 18 2024 2:30P Dictated by : MAE FRANCIS MD This examination was interpreted and the report reviewed and electronically signed by: MAE FRANCIS MD on Jul 16 2024 1:21PM EST This document has been addended by: MAE FRANCIS MD on Jul 18 2024 2:33PM EST [id number] Normal [facility] PET+CT Guidance for localiza tion of tumor of Whole body-- W 18F-FDG Aneta 07-16-2024 IMPRESSION: PROSTATE: * Tracer avid left anterior mid to upper apical transition zone lesion. AIDEN DISEASE: * No PSMA expressing pelvic lymphadenopathy. METASTATIC DISEASE: * Oligo metastatic disease to the bones. Managed Care Provider: [facility] Transcribe Date/Time: Jul 16 2024 1:08P Dictated by : MAE FRANCIS MD This examination was interpreted and the report reviewed and electronically signed by: MAE FRANCIS MD on Jul 16 2024 1:21PM [facility]OLOG[facility] * * *Final Report* * * DATE OF EXAM: Jul 16 2024 11:14AM [facility] 0093 - NM PET/CT PROSTATE WB / PROCEDURE REASON: Prostate cancer (HCC) * * * * Physician Interpretation * * * * EXAMINATION: PROSTATE-SPECIFIC MEMBRANE ANTIGEN PET-CT CLINICAL HISTORY: 78-year-old male with history of prostate cancer. * Prostate Cancer Grade: Grade Group 2 (Whittier score 3 + 4) * PSA: 17.31 [...] 3.8. Soft Tissues: No radiotracer avid lesion. [facility] Provider, Tono Mosher - 07/16/2024 * * *Final Report* * * DATE OF EXAM: Jul 16 2024 11:14AM [facility] 0093 - NM PET/CT PROSTATE WB / PROCEDURE REASON: Prostate cancer (HCC) * * * * Physician Interpretation * * * * EXAMINATION: PROSTATE-SPECIFIC MEMBRANE ANTIGEN PET-CT CLINICAL HISTORY: 78-year-old male with history of prostate cancer. * Prostate Cancer Grade: Grade Group 2 (Whittier score 3 + 4) * PSA: 17.31 [...] * Oligo metastatic disease to the bones. [facility] Transcribe Date/Time: Jul 16 2024 1:08P Dictated by : MAE FRANCIS MD This examination was interpreted and the report reviewed and electronically signed by: MAE FRANCIS MD on Jul 16 2024 1:21PM EST [facility] Radiology Study observation (narrative) [facility] PET+CT Guidance for localiza tion of tumor of Whole body-- W 18F-FDG IVOrdered By: Ccf Provider on 07-16-2024 [facility] Jluis 07-02-2024 CNPN Telephone (INTMWS) -- HANZACHARY PATEL ([id number]) 1945 M Date Time Provider Department 07/02/24 AILIN PIERSON INTMWS During your visit today, we recorded the following information about you: Susan Sher 07/02/2024 8:37 AM Signed Patient calling in to see if he can get something called in for him, he is having Congestion, temp 99.5, can't sleep,and cough. Patient denies appiontment due to already having one at [facility] at 11 am today. Please review and [...] - azelastine 0.1% nasal spray Use 1 Goddard in each nostril two times a day. [...] Take 1 tablet by mouth twice weekly [id number], then decrease to 1 tablet weekly. - [...] Encounter Status:Closed by HARI RODRIGUEZ on 07/02/24 [facility] CNOVon 06-29-2024 CNOV Office Visit (RADTWS ) -- ZACHARY SHORT ([id number]) 1945 M Date Time Provider Department 06/29/24 11:00 AM VINCE HUFFMAN During your visit today, we recorded the following information about you: Temperature Pulse Respiration Blood pressure 98 degrees 71/minute 15/minute 118/69 Weight 110.2 kg Poonam Rice RN 07/03/2024 10:55 AM Signed Radiation Therapy - Nursing Note (Follow-up) PATIENT NAME: Zachary Short PATIENT June 29, 2024 [facility] FACILITY[facility]LOCATION: [place] Reason for visit: Follow up to discuss [...] Data Do you want to see a Residential Housekeeper? No Nursing Assessment Fatigue: moderate; causing difficulty [...] Stage IIA, T1c cN0, prostate adenocarcinoma with Whittier score 7 (3+4), grade group 2, and [...] bedtime. azelastine 0.1% nasal spray Use 1 Goddard in each nostril two times a day. lisinopril-hydroCHLOROthia zide (ZESTORETIC) 10-12.5 mg per tablet Take 1 tablet by mouth once daily. tamsulosin (FLOMAX) 0.4 mg Take 1 capsule by mouth daily at bedtime. ergocalciferol 50,000 unit capsule (VITAMIN D2, DRISDOL) Take 1 capsule by mouth two times a week. TO BE TAKEN ORALLY DIRECTED. Take 1 tablet by mouth twice weekly a9ildgg, then decrease to 1 tablet weekly. polyethylene [...] stage IIA, T1c cN0, prostate adenocarcinoma with Whittier score 7 (3+4), grade group 2, and [...] by: Vince Huffman MD cc: Ailin Pierson [address] [place] [address] Referring Provider: SELF [200] Allergies As of Date: 06/29/2024 (No Known Allergies) Date Reviewed: 06/29/2024 Reviewed by: Mikhail (more content not included)... Normal [facility] CNPNon 06-28-2024 CNPN Telephone (INTMWS) -- ZACHARY SHORT ([id number]) 1945 M Date Time Provider Department 06/28/24 [...] - azelastine 0.1% nasal spray Use 1 Goddard in each nostril two times a day. [...] Take 1 tablet by mouth twice weekly [id number], then decrease to 1 tablet weekly. - [...] Encounter Status:Closed by LEA HARGROVE on 06/28/24 [facility] Telephone (INTMWS) -- ZACHARY SHORT ([id number]) 1945 M Date Time Provider Department 06/28/24 AILIN PIERSON INTMWS During your visit today, we recorded the following information about you: Lea Hargrove LPN 06/28/2024 10:47 AM Addendum Called and spoke to Martha with Dr Soto office (Urology) [facility]. Updated Martha, who will call patient to [...] their office. Faxed done. [facility] office # [phone] Lea Hargrove LPN June 28, 2024 9:58 AM Allergies As of Date: 06/28/2024 (No Known Allergies) Date Reviewed: 06/26/2024 Reviewed by: Mine Campbell MA - Fully Assessed Reason for Visit: Appointment [186] Cmt: Urology [facility] Prescriptions as of 06/28/2024 - ramelteon (ROZEREM) 8 mg tablet Take 1 tablet by mouth daily at bedtime. - azelastine 0.1% nasal spray Use 1 Goddard in each nostril two times a day. [...] Take 1 tablet by mouth twice weekly [id number], then decrease to 1 tablet weekly. - [...] Encounter Status:Closed by LEA HARGROVE on 06/28/24 [facility] CNPNon 06-27-2024 CNPN Telephone (RADTWS) -- ZACHARY SHORT ([id number]) 1945 M Date Time Provider Department 06/27/24 VINCE HUFFMAN During your visit today, we recorded the following information about you: Christopher Broderick 06/27/2024 8:04 AM Signed Unscheduled order from yesterday- Dr. Pierson. Please note telephone encounter from Dr. Blanton's office. order from PCP- Prostate Cancer, ref prov Dr. Pierson. Message from Dr. Blanton's office - Juan Blanton Jr., MD [facility] Exchange Clinical Pool Psa 17.31 Recommend fu [...] - azelastine 0.1% nasal spray Use 1 Goddard in each nostril two times a day. [...] Take 1 tablet by mouth twice weekly [id number], then decrease to 1 tablet weekly. - [...] Encounter Status:Closed by AYAH NICE on 06/27/24 [facility] CNOVon 06-26-2024 CNOV Office Visit (INTMWS ) -- HANZACHARY Bates ([id number]) 1945 M Date Time Provider Department 06/26/24 3:40 PM AILIN PIERSON INTMWS During your visit today, we recorded the following information about you: Pulse Respiration Blood pressure Weight 78/minute 18/minute 112/70 110.7 kg Ailin Pierson MD 06/28/2024 10:39 AM Signed Reason for Visit Patient presents with: [facility] F/U Zacharytanya Short is a 78 year [...] 19, 2024 to June 21, 2024 at [facility]. 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 He was admitted for a couple days and was adequately given pain relief and DVT prophylaxis and discharged. Prior to this he was admitted in April at [facility] for tripping and falling out of the [...] No chest (more content not included)... Normal [facility] Jluis 06-26-2024 HUMA Telephone (AKURFL) -- HANZACHARY PATEL ([id number]) 1945 M Date Time Provider Department 06/26/24 JUAN BLANTON JR During your visit today, we recorded the following information about you: Mayi Stallings MA 06/26/2024 10:28 AM Signed Juan Blanton Jr., MD P [facility] Exchange Clinical Pool Psa 17.31 Recommend fu [...] - azelastine 0.1% nasal spray Use 1 Goddard in each nostril two times a day. [...] Take 1 tablet by mouth twice weekly [id number], then decrease to 1 tablet weekly. - [...] Status:Closed by MAYI STALLINGS on 06/26/24 Normal [facility] Basic Metabolic Profile (BMP )on 06-25-2024 BUN Normal 12-14 [facility] Comment on above: Result Comment: Canc elled via OM: Order cancelled - Patient discharged Performed By: #### L 100.0100, L500.4050, L501.2450, L503.6005 #### [facility] [place], [address] BUN/CRE Normal 10-20 [facility] Comment on above: Result Comment: Canc elled via OM: Order cancelled - Patient discharged Performed By: #### L 100.0100, L500.4050, L501.2450, L503.6005 #### [facility] [address] [place], [address] CA,Total Normal 8.5-10.1 [facility] Comment on above: Result Comment: Canc elled via OM: Order cancelled - Patient discharged Performed By: #### L 100.0100, L500.4050, L501.2450, L503.6005 #### [facility] [address] [place], [address] CL Normal 98-107 [facility] Comment on above: Result Comment: Canc elled via OM: Order cancelled - Patient discharged Performed By: #### L 100.0100, L500.4050, L501.2450, L503.6005 #### [facility] [address] [place], [address] CO2 Normal 21.0-32.0 [facility] Comment on above: Result Comment: Canc elled via OM: Order cancelled - Patient discharged Performed By: #### L 100.0100, L500.4050, L501.2450, L503.6005 #### [facility] [address] [place], [address] CREAT,SERUM Normal 0.70-1.30 [facility] Comment on above: Result Comment: Canc elled via OM: Order cancelled - Patient discharged Performed By: #### L 100.0100, L500.4050, L501.2450, L503.6005 #### [facility] [address] [place], [address] EST GFR Normal >60 [facility] Comment on above: Result Comment: Canc elled via OM: Order cancelled - Patient discharged Performed By: #### L 100.0100, L500.4050, L501.2450, L503.6005 #### [facility] [address] [place], [address] EST GFR - AA Normal >60 [facility] Comment on above: Result Comment: Canc elled via OM: Order cancelled - Patient discharged Performed By: #### L 100.0100, L500.4050, L501.2450, L503.6005 #### [facility] [address] [place], [address] GAP Normal 5-15 [facility] Comment on above: Result Comment: Canc elled via OM: Order cancelled - Patient discharged Performed By: #### L 100.0100, L500.4050, L501.2450, L503.6005 #### [facility] [address] [place], [address] GLU Normal 74-106 [facility] Comment on above: Result Comment: Canc elled via OM: Order cancelled - Patient discharged Performed By: #### L 100.0100, L500.4050, L501.2450, L503.6005 #### [facility] [address] [place], [address] Potassium Normal 3.5-5.1 [facility] Comment on above: Result Comment: Canc elled via OM: Order cancelled - Patient discharged Performed By: #### L 100.0100, L500.4050, L501.2450, L503.6005 #### [facility] [address] [place], [address] Basic Metabolic Profile (BMP) Normal 136-145 [facility] Comment on above: Result Comment: Canc elled via OM: Order cancelled - Patient discharged Performed By: #### L 100.0100, L500.4050, L501.2450, L503.6005 #### [facility] [address] [place], [address] CBC W/Diff, Automatedon 01-2 Absolute Neut Normal 2.0-7.7 [facility] Comment on above: Result Comment: Canc elled via OM: Order cancelled - Patient discharged Performed By: #### L 100.0100, L500.4050, L501.2450, L503.6005 #### [facility] [address] [place], [address] HCT Normal 40-54 [facility] Comment on above: Result Comment: Canc elled via OM: Order cancelled - Patient discharged Performed By: #### L 100.0100, L500.4050, L501.2450, L503.6005 #### [facility] [address] [place], [address] HGB Normal 13.0-16.5 [facility] Comment on above: Result Comment: Canc elled via OM: Order cancelled - Patient discharged Performed By: #### L 100.0100, L500.4050, L501.2450, L503.6005 #### [facility] [address] [place], [address] MCH Normal 27.0-32.0 [facility] Comment on above: Result Comment: Canc elled via OM: Order cancelled - Patient discharged Performed By: #### L 100.0100, L500.4050, L501.2450, L503.6005 #### [facility] [address] [place], [address] MCHC Normal 32-36 [facility] Comment on above: Result Comment: Canc elled via OM: Order cancelled - Patient discharged Performed By: #### L 100.0100, L500.4050, L501.2450, L503.6005 #### [facility] [address] [place], [address] MCV Normal 80-94 [facility] Comment on above: Result Comment: Canc elled via OM: Order cancelled - Patient discharged Performed By: #### L 100.0100, L500.4050, L501.2450, L503.6005 #### [facility] [address] [place], [address] NEUT% Normal 47-70 [facility] Comment on above: Result Comment: Canc elled via OM: Order cancelled - Patient discharged Performed By: #### L 100.0100, L500.4050, L501.2450, L503.6005 #### [facility] [address] [place], [address] PLT Normal 150-450 [facility] Comment on above: Result Comment: Canc elled via OM: Order cancelled - Patient discharged Performed By: #### L 100.0100, L500.4050, L501.2450, L503.6005 #### [facility] [address] [place], [address] RBC Normal 4.6-6.2 [facility] Comment on above: Result Comment: Canc elled via OM: Order cancelled - Patient discharged Performed By: #### L 100.0100, L500.4050, L501.2450, L503.6005 #### [facility] [address] [place], [address] RDW CV Normal 11.6-14.6 [facility] Comment on above: Result Comment: Canc elled via OM: Order cancelled - Patient discharged Performed By: #### L 100.0100, L500.4050, L501.2450, L503.6005 #### [facility] [address] [place], [address] RDW SD Normal 35.1-43.9 [facility] Comment on above: Result Comment: Canc elled via OM: Order cancelled - Patient discharged Performed By: #### L 100.0100, L500.4050, L501.2450, L503.6005 #### [facility] [address] [place], [address] WBC Normal 4.4-11.0 [facility] Comment on above: Result Comment: Canc elled via OM: Order cancelled - Patient discharged Performed By: #### L 100.0100, L500.4050, L501.2450, L503.6005 #### [facility] [address] [place], [address] PSA [facility] 06-25-2024 Prostate specific Ag [Mass/Vol] 17.31 ng/mL High <2.60 [facility] Comment on above: Order Comment: Speci men Type: BLOOD SPECIMEN Ordering Facility: [facility] Address: [address] [place] [address] Result Comment: Wilmana angeline PSA test methodology [...] 2003,349:335-42. Performed By: #### 2 857-1 #### [facility] CLIA [id number] [address] [place] [address] [place] Basic Metabolic Profile (BMP )on 06-24-2024 BUN Normal 7-18 [facility] Comment on above: Result Comment: Canc elled via OM: Order cancelled - Patient discharged Performed By: #### L 100.0100, L500.4050, L501.2450, L503.6005 #### [facility] [address] [place], [address] BUN/CRE Normal 10-20 [facility] Comment on above: Result Comment: Canc elled via OM: Order cancelled - Patient discharged Performed By: #### L 100.0100, L500.4050, L501.2450, L503.6005 #### [facility] [address] [place], [address] CA,Total Normal 8.5-10.1 [facility] Comment on above: Result Comment: Canc elled via OM: Order cancelled - Patient discharged Performed By: #### L 100.0100, L500.4050, L501.2450, L503.6005 #### [facility] [address] [place], [address] CL Normal 98-107 [facility] Comment on above: Result Comment: Canc elled via OM: Order cancelled - Patient discharged Performed By: #### L 100.0100, L500.4050, L501.2450, L503.6005 #### [facility] [address] [place], [address] CO2 Normal 21.0-32.0 [facility] Comment on above: Result Comment: Canc elled via OM: Order cancelled - Patient discharged Performed By: #### L 100.0100, L500.4050, L501.2450, L503.6005 #### [facility] [address] [place], [address] CREAT,SERUM Normal 0.70-1.30 [facility] Comment on above: Result Comment: Canc elled via OM: Order cancelled - Patient discharged Performed By: #### L 100.0100, L500.4050, L501.2450, L503.6005 #### [facility] [address] [place], [address] EST GFR Normal >60 [facility] Comment on above: Result Comment: Canc elled via OM: Order cancelled - Patient discharged Performed By: #### L 100.0100, L500.4050, L501.2450, L503.6005 #### [facility] [address] [place], [address] EST GFR - AA Normal >60 [facility] Comment on above: Result Comment: Canc elled via OM: Order cancelled - Patient discharged Performed By: #### L 100.0100, L500.4050, L501.2450, L503.6005 #### [facility] [address] [place], [address] GAP Normal 5-15 [facility] Comment on above: Result Comment: Canc elled via OM: Order cancelled - Patient discharged Performed By: #### L 100.0100, L500.4050, L501.2450, L503.6005 #### [facility] [address] [place], [address] GLU Normal 74-106 [facility] Comment on above: Result Comment: Canc elled via OM: Order cancelled - Patient discharged Performed By: #### L 100.0100, L500.4050, L501.2450, L503.6005 #### [facility] [address] [place], [address] Potassium Normal 3.5-5.1 [facility] Comment on above: Result Comment: Canc elled via OM: Order cancelled - Patient discharged Performed By: #### L 100.0100, L500.4050, L501.2450, L503.6005 #### [facility] [address] [place], [address] Basic Metabolic Profile (BMP) Normal 136-145 [facility] Comment on above: Result Comment: Canc elled via OM: Order cancelled - Patient discharged Performed By: #### L 100.0100, L500.4050, L501.2450, L503.6005 #### [facility] [address] [place], [address] CBC W/Diff, Automatedon - Absolute Neut Normal 2.0-7.7 [facility] Comment on above: Result Comment: Canc elled via OM: Order cancelled - Patient discharged Performed By: #### L 100.0100, L500.4050, L501.2450, L503.6005 #### [facility] [address] [place], [address] HCT Normal 40-54 [facility] Comment on above: Result Comment: Canc elled via OM: Order cancelled - Patient discharged Performed By: #### L 100.0100, L500.4050, L501.2450, L503.6005 #### [facility] [address] [place], [address] HGB Normal 13.0-16.5 [facility] Comment on above: Result Comment: Canc elled via OM: Order cancelled - Patient discharged Performed By: #### L 100.0100, L500.4050, L501.2450, L503.6005 #### [facility] [address] [place], [address] MCH Normal 27.0-32.0 [facility] Comment on above: Result Comment: Canc elled via OM: Order cancelled - Patient discharged Performed By: #### L 100.0100, L500.4050, L501.2450, L503.6005 #### [facility] [address] [place], [address] MCHC Normal 32-36 [facility] Comment on above: Result Comment: Canc elled via OM: Order cancelled - Patient discharged Performed By: #### L 100.0100, L500.4050, L501.2450, L503.6005 #### [facility] [address] [place], [address] MCV Normal 80-94 [facility] Comment on above: Result Comment: Canc elled via OM: Order cancelled - Patient discharged Performed By: #### L 100.0100, L500.4050, L501.2450, L503.6005 #### [facility] [address] [place], [address] NEUT% Normal 47-70 [facility] Comment on above: Result Comment: Canc elled via OM: Order cancelled - Patient discharged Performed By: #### L 100.0100, L500.4050, L501.2450, L503.6005 #### [facility] [address] [place], [address] PLT Normal 150-450 [facility] Comment on above: Result Comment: Canc elled via OM: Order cancelled - Patient discharged Performed By: #### L 100.0100, L500.4050, L501.2450, L503.6005 #### [facility] [address] [place], [address] RBC Normal 4.6-6.2 [facility] Comment on above: Result Comment: Canc elled via OM: Order cancelled - Patient discharged Performed By: #### L 100.0100, L500.4050, L501.2450, L503.6005 #### [facility] [address] [place], [address] RDW CV Normal 11.6-14.6 [facility] Comment on above: Result Comment: Canc elled via OM: Order cancelled - Patient discharged Performed By: #### L 100.0100, L500.4050, L501.2450, L503.6005 #### [facility] [address] [place], [address] RDW SD Normal 35.1-43.9 [facility] Comment on above: Result Comment: Canc elled via OM: Order cancelled - Patient discharged Performed By: #### L 100.0100, L500.4050, L501.2450, L503.6005 #### [facility] [address] [place], [address] WBC Normal 4.4-11.0 [facility] Comment on above: Result Comment: Canc elled via OM: Order cancelled - Patient discharged Performed By: #### L 100.0100, L500.4050, L501.2450, L503.6005 #### [facility] [address] [place], [address] Basic Metabolic Profile (BMP )on 06-23-2024 BUN Normal 7-18 [facility] Comment on above: Result Comment: Canc elled via OM: Order cancelled - Patient discharged Performed By: #### L 100.0100, L500.4050, L501.2450, L503.6005 #### [facility] [address] [place], [address] BUN/CRE Normal 10-20 [facility] Comment on above: Result Comment: Canc elled via OM: Order cancelled - Patient discharged Performed By: #### L 100.0100, L500.4050, L501.2450, L503.6005 #### [facility] [address] [place], [address] CA,Total Normal 8.5-10.1 [facility] Comment on above: Result Comment: Canc elled via OM: Order cancelled - Patient discharged Performed By: #### L 100.0100, L500.4050, L501.2450, L503.6005 #### [facility] [address] [place], [address] CL Normal 98-107 [facility] Comment on above: Result Comment: Canc elled via OM: Order cancelled - Patient discharged Performed By: #### L 100.0100, L500.4050, L501.2450, L503.6005 #### [facility] [address] [place], [address] CO2 Normal 21.0-32.0 [facility] Comment on above: Result Comment: Canc elled via OM: Order cancelled - Patient discharged Performed By: #### L 100.0100, L500.4050, L501.2450, L503.6005 #### [facility] [address] [place], [address] CREAT,SERUM Normal 0.70-1.30 [facility] Comment on above: Result Comment: Canc elled via OM: Order cancelled - Patient discharged Performed By: #### L 100.0100, L500.4050, L501.2450, L503.6005 #### [facility] [address] [place], [address] EST GFR Normal >60 [facility] Comment on above: Result Comment: Canc elled via OM: Order cancelled - Patient discharged Performed By: #### L 100.0100, L500.4050, L501.2450, L503.6005 #### [facility] [address] [place], [address] EST GFR - AA Normal >60 [facility] Comment on above: Result Comment: Canc elled via OM: Order cancelled - Patient discharged Performed By: #### L 100.0100, L500.4050, L501.2450, L503.6005 #### [facility] [address] [place], [address] GAP Normal 5-15 [facility] Comment on above: Result Comment: Canc elled via OM: Order cancelled - Patient discharged Performed By: #### L 100.0100, L500.4050, L501.2450, L503.6005 #### [facility] [address] [place], [address] GLU Normal 74-106 [facility] Comment on above: Result Comment: Canc elled via OM: Order cancelled - Patient discharged Performed By: #### L 100.0100, L500.4050, L501.2450, L503.6005 #### [facility] [address] [place], [address] Potassium Normal 3.5-5.1 [facility] Comment on above: Result Comment: Canc elled via OM: Order cancelled - Patient discharged Performed By: #### L 100.0100, L500.4050, L501.2450, L503.6005 #### [facility] [address] [place], [address] Basic Metabolic Profile (BMP) Normal 136-145 [facility] Comment on above: Result Comment: Canc elled via OM: Order cancelled - Patient discharged Performed By: #### L 100.0100, L500.4050, L501.2450, L503.6005 #### [facility] [address] [place], [address] CBC W/Diff, Automatedon -2 Absolute Neut Normal 2.0-7.7 [facility] Comment on above: Result Comment: Canc elled via OM: Order cancelled - Patient discharged Performed By: #### L 100.0100, L500.4050, L501.2450, L503.6005 #### [facility] [address] [place], [address] HCT Normal 40-54 [facility] Comment on above: Result Comment: Canc elled via OM: Order cancelled - Patient discharged Performed By: #### L 100.0100, L500.4050, L501.2450, L503.6005 #### [facility] [address] [place], [address] HGB Normal 13.0-16.5 [facility] Comment on above: Result Comment: Canc elled via OM: Order cancelled - Patient discharged Performed By: #### L 100.0100, L500.4050, L501.2450, L503.6005 #### [facility] [address] [place], [address] MCH Normal 27.0-32.0 [facility] Comment on above: Result Comment: Canc elled via OM: Order cancelled - Patient discharged Performed By: #### L 100.0100, L500.4050, L501.2450, L503.6005 #### [facility] [address] [place], [address] MCHC Normal 32-36 [facility] Comment on above: Result Comment: Canc elled via OM: Order cancelled - Patient discharged Performed By: #### L 100.0100, L500.4050, L501.2450, L503.6005 #### [facility] [address] [place], [address] MCV Normal 80-94 [facility] Comment on above: Result Comment: Canc elled via OM: Order cancelled - Patient discharged Performed By: #### L 100.0100, L500.4050, L501.2450, L503.6005 #### [facility] [address] [place], [address] NEUT% Normal 47-70 [facility] Comment on above: Result Comment: Canc elled via OM: Order cancelled - Patient discharged Performed By: #### L 100.0100, L500.4050, L501.2450, L503.6005 #### [facility] [address] [place], [address] PLT Normal 150-450 [facility] Comment on above: Result Comment: Canc elled via OM: Order cancelled - Patient discharged Performed By: #### L 100.0100, L500.4050, L501.2450, L503.6005 #### [facility] [address] [place], [address] RBC Normal 4.6-6.2 [facility] Comment on above: Result Comment: Canc elled via OM: Order cancelled - Patient discharged Performed By: #### L 100.0100, L500.4050, L501.2450, L503.6005 #### [facility] [address] [place], [address] RDW CV Normal 11.6-14.6 [facility] Comment on above: Result Comment: Canc elled via OM: Order cancelled - Patient discharged Performed By: #### L 100.0100, L500.4050, L501.2450, L503.6005 #### [facility] [address] [place], [address] RDW SD Normal 35.1-43.9 [facility] Comment on above: Result Comment: Canc elled via OM: Order cancelled - Patient discharged Performed By: #### L 100.0100, L500.4050, L501.2450, L503.6005 #### [facility] [address] [place], [address] WBC Normal 4.4-11.0 [facility] Comment on above: Result Comment: Canc elled via OM: Order cancelled - Patient discharged Performed By: #### L 100.0100, L500.4050, L501.2450, L503.6005 #### [facility] [address] [place], [address] Basic Metabolic Profile (BMP )on 06-22-2024 BUN Normal 7-18 [facility] Comment on above: Result Comment: Canc elled via OM: Order cancelled - Patient discharged Performed By: #### L 100.0100, L500.4050, L501.2450, L503.6005 #### [facility] [address] [place], [address] BUN/CRE Normal 10-20 [facility] Comment on above: Result Comment: Canc elled via OM: Order cancelled - Patient discharged Performed By: #### L 100.0100, L500.4050, L501.2450, L503.6005 #### [facility] [address] [place], [address] CA,Total Normal 8.5-10.1 [facility] Comment on above: Result Comment: Canc elled via OM: Order cancelled - Patient discharged Performed By: #### L 100.0100, L500.4050, L501.2450, L503.6005 #### [facility] [address] [place], [address] CL Normal 98-107 [facility] Comment on above: Result Comment: Canc elled via OM: Order cancelled - Patient discharged Performed By: #### L 100.0100, L500.4050, L501.2450, L503.6005 #### [facility] [address] [place], [address] CO2 Normal 21.0-32.0 [facility] Comment on above: Result Comment: Canc elled via OM: Order cancelled - Patient discharged Performed By: #### L 100.0100, L500.4050, L501.2450, L503.6005 #### [facility] [address] [place], [address] CREAT,SERUM Normal 0.70-1.30 [facility] Comment on above: Result Comment: Canc elled via OM: Order cancelled - Patient discharged Performed By: #### L 100.0100, L500.4050, L501.2450, L503.6005 #### [facility] [address] [place], [address] EST GFR Normal >60 [facility] Comment on above: Result Comment: Canc elled via OM: Order cancelled - Patient discharged Performed By: #### L 100.0100, L500.4050, L501.2450, L503.6005 #### [facility] [address] [place], [address] EST GFR - AA Normal >60 [facility] Comment on above: Result Comment: Canc elled via OM: Order cancelled - Patient discharged Performed By: #### L 100.0100, L500.4050, L501.2450, L503.6005 #### [facility] [address] [place], [address] GAP Normal 5-15 [facility] Comment on above: Result Comment: Canc elled via OM: Order cancelled - Patient discharged Performed By: #### L 100.0100, L500.4050, L501.2450, L503.6005 #### [facility] [address] [place], [address] GLU Normal 74-106 [facility] Comment on above: Result Comment: Canc elled via OM: Order cancelled - Patient discharged Performed By: #### L 100.0100, L500.4050, L501.2450, L503.6005 #### [facility] [address] [place], [address] Potassium Normal 3.5-5.1 [facility] Comment on above: Result Comment: Canc elled via OM: Order cancelled - Patient discharged Performed By: #### L 100.0100, L500.4050, L501.2450, L503.6005 #### [facility] [address] [place], [address] Basic Metabolic Profile (BMP) Normal 136-145 [facility] Comment on above: Result Comment: Canc elled via OM: Order cancelled - Patient discharged Performed By: #### L 100.0100, L500.4050, L501.2450, L503.6005 #### [facility] [address] [place], [address] CBC W/Diff, Automatedon - Absolute Neut Normal 2.0-7.7 [facility] Comment on above: Result Comment: Canc elled via OM: Order cancelled - Patient discharged Performed By: #### L 100.0100, L500.4050, L501.2450, L503.6005 #### [facility] [address] [place], [address] HCT Normal 40-54 [facility] Comment on above: Result Comment: Canc elled via OM: Order cancelled - Patient discharged Performed By: #### L 100.0100, L500.4050, L501.2450, L503.6005 #### [facility] [address] [place], [address] HGB Normal 13.0-16.5 [facility] Comment on above: Result Comment: Canc elled via OM: Order cancelled - Patient discharged Performed By: #### L 100.0100, L500.4050, L501.2450, L503.6005 #### [facility] [address] [place], [address] MCH Normal 27.0-32.0 [facility] Comment on above: Result Comment: Canc elled via OM: Order cancelled - Patient discharged Performed By: #### L 100.0100, L500.4050, L501.2450, L503.6005 #### [facility] [address] [place], [address] MCHC Normal 32-36 [facility] Comment on above: Result Comment: Canc elled via OM: Order cancelled - Patient discharged Performed By: #### L 100.0100, L500.4050, L501.2450, L503.6005 #### [facility] [address] [place], [address] MCV Normal 80-94 [facility] Comment on above: Result Comment: Canc elled via OM: Order cancelled - Patient discharged Performed By: #### L 100.0100, L500.4050, L501.2450, L503.6005 #### [facility] [address] [place], [address] NEUT% Normal 47-70 [facility] Comment on above: Result Comment: Canc elled via OM: Order cancelled - Patient discharged Performed By: #### L 100.0100, L500.4050, L501.2450, L503.6005 #### [facility] [address] [place], [address] PLT Normal 150-450 [facility] Comment on above: Result Comment: Canc elled via OM: Order cancelled - Patient discharged Performed By: #### L 100.0100, L500.4050, L501.2450, L503.6005 #### [facility] [address] [place], [address] RBC Normal 4.6-6.2 [facility] Comment on above: Result Comment: Canc elled via OM: Order cancelled - Patient discharged Performed By: #### L 100.0100, L500.4050, L501.2450, L503.6005 #### [facility] [address] [place], [address] RDW CV Normal 11.6-14.6 [facility] Comment on above: Result Comment: Canc elled via OM: Order cancelled - Patient discharged Performed By: #### L 100.0100, L500.4050, L501.2450, L503.6005 #### [facility] [address] [place], [address] RDW SD Normal 35.1-43.9 [facility] Comment on above: Result Comment: Canc elled via OM: Order cancelled - Patient discharged Performed By: #### L 100.0100, L500.4050, L501.2450, L503.6005 #### [facility] [address] [place], [address] WBC Normal 4.4-11.0 [facility] Comment on above: Result Comment: Canc elled via OM: Order cancelled - Patient discharged Performed By: #### L 100.0100, L500.4050, L501.2450, L503.6005 #### [facility] [address] [place], [address] Absolute neutrophil countOrd ered By: Itzel Randle on 06-21-2024 Neutrophils (Bld) [#/Vol] 5.2 10*3/uL 2.0-7.7 [facility] Basic Metabolic Profile (BMP )on 06-21-2024 BUN/CRE 22.6 RATIO High 10-20 [facility] Comment on above: Performed By: #### L 100.0100, L500.2500 #### [facility] [address] [place], [address] CA,Total 8.6 mg/dL Normal 8.5-10.1 [facility] Comment on above: Performed By: #### L 100.0100, L500.2500 #### [facility] [address] [place], [address] Chloride [Moles/Vol] 101 mmol/L Normal 98-107 [facility] Comment on above: Performed By: #### L 100.0100, L500.2500 #### [facility] [address] [place], [address] CO2 [Moles/Vol] 25.0 mmol/L Normal 21.0-32.0 [facility] Comment on above: Performed By: #### L 100.0100, L500.2500 #### [facility] [address] [place], [address] Creatinine [Mass/Vol] 0.97 mg/dL Normal 0.70-1.30 [facility] Comment on above: Result Comment: The validity of the calculated GFR GFRAA in patients over 70 years has not been determined. Clinical correlation is essential. Performed By: #### L 100.0100, L500.2500 #### [facility] [address] [place], [address] ECRCL 77.70 ml/min Normal [facility] Comment on above: Performed By: #### L 100.0100, L500.2500 #### [facility] [address] [place], [address] EST GFR - AA 95 mL/min Normal >60 [facility] Comment on above: Result Comment: Afri can Maltese GFR Calc Performed By: #### L 100.0100, L500.2500 #### [facility] [address] [place], [address] GAP 7 Normal 5-15 [facility] Comment on above: Performed By: #### L 100.0100, L500.2500 #### [facility] [address] [place], [address] GFR/1.73 sq M.predicted among non-blacks MDRD (S/P/Bld) [Vol rate/Area] 79 mL/min/{1.73_m2} Normal >60 [facility] Comment on above: Result Comment: Non- GFR Calc Performed By: #### L 100.0100, L500.2500 #### [facility] [address] [place], [address] Glucose [Mass/Vol] 108 mg/dL High 74-106 [facility] Comment on above: Result Comment: Fast ing Glucose result from 100 to 125 mg/dL suggests IMPAIRED HOMEOSTASIS per A.D.A. criteria. Performed By: #### L 100.0100, L500.2500 #### [facility] [address] [place], [address] Potassium [Moles/Vol] 4.0 mmol/L Normal 3.5-5.1 [facility] Comment on above: Performed By: #### L 100.0100, L500.2500 #### [facility] [address] [place], [address] Sodium [Moles/Vol] 133 mmol/L Low 136-145 [facility] Comment on above: Performed By: #### L 100.0100, L500.2500 #### [facility] [address] [place], [address] Urea nitrogen [Mass/Vol] 22 mg/dL High 7-18 [facility] Comment on above: Performed By: #### L 100.0100, L500.2500 #### [facility] [address] [place], [address] Basophil percentageOrdered B y: Itzel Randle on 06-21-2024 Basophils/100 WBC (Bld) 0.5 % 0-1 [facility] Blood urea nitrogen (BUN)/cr eatinine ratioOrdered By: Itzel Randle on 06-21-2024 Urea nitrogen/Creatinine [Mass ratio] 22.6 mg/mg High 10-20 [facility] CBC W/Diff, Automatedon 05-31 Absolute Lymph 1.72 X10 3/uL Normal 0.83-4.51 [facility] Comment on above: Performed By: #### L 100.0100, L500.2500 #### [facility] [address] [place], [address] Absolute Neut 5.2 X10 3/uL Normal 2.0-7.7 [facility] Comment on above: Performed By: #### L 100.0100, L500.2500 #### [facility] [address] [place], [address] Basophils/100 WBC (Bld) 0.5 % Normal 0-1 [facility] Comment on above: Performed By: #### L 100.0100, L500.2500 #### [facility] [address] [place], [address] Eosinophils/100 WBC (Bld) 3.8 % Normal 0-5 [facility] Comment on above: Performed By: #### L 100.0100, L500.2500 #### [facility] [address] [place], [address] Erythrocyte distribution width (RBC) [Ratio] 13.3 % Normal 11.6-14.6 [facility] Comment on above: Performed By: #### L 100.0100, L500.2500 #### [facility] [address] [place], [address] Hematocrit (Bld) [Volume fraction] 30.7 % Low 40-54 [facility] Comment on above: Performed By: #### L 100.0100, L500.2500 #### [facility] [address] [place], [address] Hemoglobin (Bld) [Mass/Vol] 10.3 g/dL Low 13.0-16.5 [facility] Comment on above: Performed By: #### L 100.0100, L500.2500 #### [facility] [address] [place], [address] IG% 0.700 Normal 0.0-0.9 [facility] Comment on above: Result Comment: IG% - Immature Granulocytes (promyelocytes, myelocytes and metamyelocytes) > 1% indicates that a LEFT SHIFT is Present. Performed By: #### L 100.0100, L500.2500 #### [facility] [address] [place], [address] Lymphocytes/100 WBC (Bld) 20.8 % Normal 19-41 [facility] Comment on above: Performed By: #### L 100.0100, L500.2500 #### [facility] [address] [place], [address] MCH (RBC) [Entitic mass] 34.7 pg High 27.0-32.0 [facility] Comment on above: Performed By: #### L 100.0100, L500.2500 #### [facility] [address] [place], [address] MCHC (RBC) [Mass/Vol] 33.6 g/dL Normal 32-36 [facility] Comment on above: Performed By: #### L 100.0100, L500.2500 #### [facility] [address] [place], [address] MCV (RBC) [Entitic vol] 103.4 fL High 80-94 [facility] Comment on above: Performed By: #### L 100.0100, L500.2500 #### [facility] [address] [place], [address] Monocytes/100 WBC (Bld) 10.9 % High 0-10 [facility] Comment on above: Performed By: #### L 100.0100, L500.2500 #### [facility] [address] [place], [address] Neutrophils/100 WBC (Bld) 63.3 % Normal 47-70 [facility] Comment on above: Performed By: #### L 100.0100, L500.2500 #### [facility] [address] [place], [address] Nucleated RBC (Bld) [#/Vol] 0 10*3/uL Normal 0-5 [facility] Comment on above: Performed By: #### L 100.0100, L500.2500 #### [facility] [address] [place], [address] Platelet mean volume (Bld) [Entitic vol] 9.4 fL Normal 6.2-12.0 [facility] Comment on above: Performed By: #### L 100.0100, L500.2500 #### [facility] [address] [place], [address] Platelets (Bld) [#/Vol] 158 10*3/uL Normal 150-450 [facility] Comment on above: Performed By: #### L 100.0100, L500.2500 #### [facility] [address] [place], [address] RBC (Bld) [#/Vol] 2.97 10*6/uL Low 4.6-6.2 [facility] Comment on above: Performed By: #### L 100.0100, L500.2500 #### [facility] [address] [place], [address] RDW SD 51.0 fl High 35.1-43.9 [facility] Comment on above: Performed By: #### L 100.0100, L500.2500 #### [facility] [address] [place], [address] WBC (Bld) [#/Vol] 8.3 10*3/uL Normal 4.4-11.0 [facility] Comment on above: Performed By: #### L 100.0100, L500.2500 #### [facility] [address] [place], [address] Carbon dioxide measurementOr dered By: Itzel Randle on 06-21-2024 CO2 [Moles/Vol] 25.0 mmol/L 21.0-32.0 [facility] Chloride measurementOrdered By: Itzel Randle on 06-21-2024 Chloride [Moles/Vol] 101 mmol/L 98-107 [facility] Discharge Instructionon 05-31 Discharge Instruction [facility] Medical Records Department [address] [place] [address] Instructions for Home/Discharge Instructions 06/21/24 1422 MR#: [id number] Acct: [id number] Name: ZACHARY SHORT Rep #: [id number] : 1945 78 From: Itzel Randle MD [...] CC: Dr. Ailin Pierson MD Signed Normal [facility] Eosinophil percentageOrdered By: Itzel Randle on 06-21-2024 Eosinophils/100 WBC (Bld) 3.8 % 0-5 [facility] Erythrocyte distribution wid th (RBC) [Ratio]Ordered By: Itzel Randle on 06-21-2024 Erythrocyte distribution width (RBC) [Entitic vol] 51.0 fL High 35.1-43.9 [facility] Erythrocyte distribution wid th ratioOrdered By: Itzel Randle on 06-21-2024 Erythrocyte distribution width (RBC) [Ratio] 13.3 % 11.6-14.6 [facility] Estimated glomerular filtrat ion rate (GFR) AmericanOrdered By: Itzel Randle on 06-21-2024 Estimated GFR (MDRD) Amer 95 mL/min >60 [facility] Comment on above: GFR Calc Estimation of creatinine lopez aranceOrdered By: Itzel Randle on 06-21-2024 Estimated Creatinine Clearance Calc 77.70 ml/min [facility] Glomerular filtration rate ( GFR) estimationOrdered By: Itzel Randle on 06-21-2024 Estimated GFR (MDRD) Non-Af Amer 79 mL/min >60 [facility] Comment on above: Non- GFR Calc Glucose measurementOrdered B y: Itzel Randle on 06-21-2024 Glucose [Mass/Vol] 108 mg/dL High 74-106 [facility] Comment on above: Fasting Glucose resu lt from 100 to 125 mg/dL suggests IMPAIRED HOMEOSTASIS per A.D.A. criteria. Hematocrit Auto (Bld) [Volum e fraction]Ordered By: Itzel Randle on 06-21-2024 Hematocrit (Bld) [Volume fraction] 30.7 % Low 40-54 [facility] Hemoglobin measurementOrdere d By: Itzel Randle on 06-21-2024 Hemoglobin (Bld) [Mass/Vol] 10.3 g/dL Low 13.0-16.5 [facility] Immature granulocytes/100 WB C Auto (Bld)Ordered By: Itzel Randle on 06-21-2024 Immature granulocytes/100 WBC (Bld) 0.700 % 0.0-0.9 [facility] Comment on above: IG% - Immature Granu locytes (promyelocytes, myelocytes and metamyelocytes) > 1% indicates that a LEFT SHIFT is Present. Lymphocytes Auto (Unsp spec) [#/Vol]Ordered By: Itzel Randle on 06-21-2024 Lymphocytes (Bld) [#/Vol] 1.72 10*3/uL 0.83-4.51 [facility] Lymphocytes/100 WBC Auto (Un sp spec)Ordered By: Itzel Randle on 06-21-2024 Lymphocytes/100 WBC (Bld) 20.8 % 19-41 [facility] MCV (mean corpuscular volume ) determinationOrdered By: Itzel Randle on 06-21-2024 MCV (RBC) [Entitic vol] 103.4 fL High 80-94 [facility] Mean corpuscular hemoglobin (MCH) determinationOrdered By: Itzel Randle on 06-21-2024 MCH (RBC) [Entitic mass] 34.7 pg High 27.0-32.0 [facility] Mean corpuscular hemoglobin concentration (MCHC) determinationOrdered By: Itzel Randle on 06-21-2024 MCHC (RBC) [Mass/Vol] 33.6 g/dL 32-36 [facility] Mean platelet volume determi nationOrdered By: Itzel Randle on 06-21-2024 Platelet mean volume (Bld) [Entitic vol] 9.4 fL 6.2-12.0 [facility] Monocyte percentageOrdered B y: Itzel Randle on 06-21-2024 Monocytes/100 WBC (Bld) 10.9 % High 0-10 [facility] Neutrophil percentageOrdered By: Itzelgrant Randle on 06-21-2024 Neutrophils/100 WBC (Bld) 63.3 % 47-70 [facility] Nucleated red blood cell per centageOrdered By: Itzel Randle on 06-21-2024 Nucleated RBC/100 WBC (Bld) [Ratio] 0 % 0-5 [facility] Platelet countOrdered By: Na na Razia on 06-21-2024 Platelets (Bld) [#/Vol] 158 10*3/uL 150-450 [facility] Potassium measurementOrdered By: Itzel Randle on 06-21-2024 Potassium [Moles/Vol] 4.0 mmol/L 3.5-5.1 [facility] RBC Auto (Bld) [#/Vol]Ordere d By: Itzel Randle on 06-21-2024 RBC (Bld) [#/Vol] 2.97 10*6/uL Low 4.6-6.2 [facility] Serum anion gap measurementO rdered By: Itzel Randle on 06-21-2024 Anion gap [Moles/Vol] 7 mmol/L 5-15 [facility] Serum or plasma calcium valentin urement (mass/volume)Ordered By: Itzel Randle on 06-21-2024 Calcium [Mass/Vol] 8.6 mg/dL 8.5-10.1 [facility] Serum or plasma creatinine m easurement (mass/volume)Ordered By: Itzel Randle on 06-21-2024 Creatinine [Mass/Vol] 0.97 mg/dL 0.70-1.30 [facility] Comment on above: The validity of the calculated GFR & GFRAA in patients over 70 years has not been determined. Clinical correlation is essential. Serum or plasma urea nitroge n measurement (mass/volume)Ordered By: Itzel Randle on 06-21-2024 Urea nitrogen [Mass/Vol] 22 mg/dL High 7-18 [facility] Sodium levelOrdered By: Itzel Randle on 06-21-2024 Sodium [Moles/Vol] 133 mmol/L Low 136-145 [facility] White blood cell (WBC) count Ordered By: Itzel Randle on 06-21-2024 WBC (Bld) [#/Vol] 8.3 10*3/uL 4.4-11.0 [facility] Basic Metabolic Profile (BMP )on 06-20-2024 BUN/CRE 16.3 RATIO Normal 10-20 [facility] Comment on above: Performed By: #### L 100.0100, L500.4050, L501.2450, L503.6005 #### [facility] [address] [place], [address] CA,Total 8.5 mg/dL Normal 8.5-10.1 [facility] Comment on above: Performed By: #### L 100.0100, L500.4050, L501.2450, L503.6005 #### [facility] [address] [place], [address] Chloride [Moles/Vol] 102 mmol/L Normal 98-107 [facility] Comment on above: Performed By: #### L 100.0100, L500.4050, L501.2450, L503.6005 #### [facility] [address] [place], [address] CO2 [Moles/Vol] 28.0 mmol/L Normal 21.0-32.0 [facility] Comment on above: Performed By: #### L 100.0100, L500.4050, L501.2450, L503.6005 #### [facility] [address] [place], [address] Creatinine [Mass/Vol] 1.04 mg/dL Normal 0.70-1.30 [facility] Comment on above: Result Comment: The validity of the calculated GFR GFRAA in patients over 70 years has not been determined. Clinical correlation is essential. Performed By: #### L 100.0100, L500.4050, L501.2450, L503.6005 #### [facility] [address] [place], [address] ECRCL 72.47 ml/min Normal [facility] Comment on above: Performed By: #### L 100.0100, L500.4050, L501.2450, L503.6005 #### [facility] [address] [place], [address] EST GFR - AA 88 mL/min Normal >60 [facility] Comment on above: Result Comment: Afri can Maltese GFR Calc Performed By: #### L 100.0100, L500.4050, L501.2450, L503.6005 #### [facility] [address] [place], [address] GAP 5 Normal 5-15 [facility] Comment on above: Performed By: #### L 100.0100, L500.4050, L501.2450, L503.6005 #### [facility] [address] [place], [address] GFR/1.73 sq M.predicted among non-blacks MDRD (S/P/Bld) [Vol rate/Area] 73 mL/min/{1.73_m2} Normal >60 [facility] Comment on above: Result Comment: Non- GFR Calc Performed By: #### L 100.0100, L500.4050, L501.2450, L503.6005 #### [facility] [address] [place], [address] Glucose [Mass/Vol] 116 mg/dL High 74-106 [facility] Comment on above: Result Comment: Fast ing Glucose result from 100 to 125 mg/dL suggests IMPAIRED HOMEOSTASIS per A.D.A. criteria. Performed By: #### L 100.0100, L500.4050, L501.2450, L503.6005 #### [facility] [address] [place], [address] Potassium [Moles/Vol] 4.8 mmol/L Normal 3.5-5.1 [facility] Comment on above: Performed By: #### L 100.0100, L500.4050, L501.2450, L503.6005 #### [facility] [address] [place], [address] Sodium [Moles/Vol] 135 mmol/L Low 136-145 [facility] Comment on above: Performed By: #### L 100.0100, L500.4050, L501.2450, L503.6005 #### [facility] [address] [place], [address] Urea nitrogen [Mass/Vol] 17 mg/dL Normal 7-18 [facility] Comment on above: Performed By: #### L 100.0100, L500.4050, L501.2450, L503.6005 #### [facility] [address] [place], [address] CBC W/Diff, Automatedon 05-31 Absolute Lymph 1.11 X10 3/uL Normal 0.83-4.51 [facility] Comment on above: Performed By: #### L 100.0100, L500.4050, L501.2450, L503.6005 #### [facility] [address] [place], [address] Absolute Neut 7.1 X10 3/uL Normal 2.0-7.7 [facility] Comment on above: Performed By: #### L 100.0100, L500.4050, L501.2450, L503.6005 #### [facility] [address] [place], [address] Basophils/100 WBC (Bld) 0.7 % Normal 0-1 [facility] Comment on above: Performed By: #### L 100.0100, L500.4050, L501.2450, L503.6005 #### [facility] [address] [place], [address] Eosinophils/100 WBC (Bld) 2.0 % Normal 0-5 [facility] Comment on above: Performed By: #### L 100.0100, L500.4050, L501.2450, L503.6005 #### [facility] [address] [place], [address] Erythrocyte distribution width (RBC) [Ratio] 13.5 % Normal 11.6-14.6 [facility] Comment on above: Performed By: #### L 100.0100, L500.4050, L501.2450, L503.6005 #### [facility] [address] [place], [address] Hematocrit (Bld) [Volume fraction] 33.3 % Low 40-54 [facility] Comment on above: Performed By: #### L 100.0100, L500.4050, L501.2450, L503.6005 #### [facility] [address] [place], [address] Hemoglobin (Bld) [Mass/Vol] 11.0 g/dL Low 13.0-16.5 [facility] Comment on above: Performed By: #### L 100.0100, L500.4050, L501.2450, L503.6005 #### [facility] [address] [place], [address] IG% 0.500 Normal 0.0-0.9 [facility] Comment on above: Result Comment: IG% - Immature Granulocytes (promyelocytes, myelocytes and metamyelocytes) > 1% indicates that a LEFT SHIFT is Present. Performed By: #### L 100.0100, L500.4050, L501.2450, L503.6005 #### [facility] [address] [place], [address] Lymphocytes/100 WBC (Bld) 11.8 % Low 19-41 [facility] Comment on above: Performed By: #### L 100.0100, L500.4050, L501.2450, L503.6005 #### [facility] [address] [place], [address] MCH (RBC) [Entitic mass] 34.7 pg High 27.0-32.0 [facility] Comment on above: Performed By: #### L 100.0100, L500.4050, L501.2450, L503.6005 #### [facility] [address] [place], [address] MCHC (RBC) [Mass/Vol] 33.0 g/dL Normal 32-36 [facility] Comment on above: Performed By: #### L 100.0100, L500.4050, L501.2450, L503.6005 #### [facility] [address] [place], [address] MCV (RBC) [Entitic vol] 105.0 fL High 80-94 [facility] Comment on above: Performed By: #### L 100.0100, L500.4050, L501.2450, L503.6005 #### [facility] [address] [place], [address] Monocytes/100 WBC (Bld) 9.7 % Normal 0-10 [facility] Comment on above: Performed By: #### L 100.0100, L500.4050, L501.2450, L503.6005 #### [facility] [address] [place], [address] Neutrophils/100 WBC (Bld) 75.3 % High 47-70 [facility] Comment on above: Performed By: #### L 100.0100, L500.4050, L501.2450, L503.6005 #### [facility] [address] [place], [address] Nucleated RBC (Bld) [#/Vol] 0 10*3/uL Normal 0-5 [facility] Comment on above: Performed By: #### L 100.0100, L500.4050, L501.2450, L503.6005 #### [facility] [address] [place], [address] Platelet mean volume (Bld) [Entitic vol] 9.4 fL Normal 6.2-12.0 [facility] Comment on above: Performed By: #### L 100.0100, L500.4050, L501.2450, L503.6005 #### [facility] [address] [place], [address] Platelets (Bld) [#/Vol] 157 10*3/uL Normal 150-450 [facility] Comment on above: Performed By: #### L 100.0100, L500.4050, L501.2450, L503.6005 #### [facility] [address] [place], [address] RBC (Bld) [#/Vol] 3.17 10*6/uL Low 4.6-6.2 [facility] Comment on above: Performed By: #### L 100.0100, L500.4050, L501.2450, L503.6005 #### [facility] [address] [place], [address] RDW SD 52.2 fl High 35.1-43.9 [facility] Comment on above: Performed By: #### L 100.0100, L500.4050, L501.2450, L503.6005 #### [facility] [address] [place], [address] WBC (Bld) [#/Vol] 9.4 10*3/uL Normal 4.4-11.0 [facility] Comment on above: Performed By: #### L 100.0100, L500.4050, L501.2450, L503.6005 #### [facility] [address] [place], [address] Basic Metabolic Profile (BMP )on 06-19-2024 BUN/CRE 15.8 RATIO Normal 10-20 [facility] Comment on above: Performed By: #### L 500.2500, L100.0100 ####[facility] [id number] [place], [address] CA,Total 9.1 mg/dL Normal 8.5-10.1 [facility] Comment on above: Performed By: #### L 500.2500, L100.0100 ####[facility] [id number] [place], [address] Chloride [Moles/Vol] 101 mmol/L Normal 98-107 [facility] Comment on above: Performed By: #### L 500.2500, L100.0100 ####[facility] [id number] [place], [address] CO2 [Moles/Vol] 25.0 mmol/L Normal 21.0-32.0 [facility] Comment on above: Performed By: #### L 500.2500, L100.0100 ####[facility] [address] [place], [address] Creatinine [Mass/Vol] 1.14 mg/dL Normal 0.70-1.30 [facility] Comment on above: Result Comment: The validity of the calculated GFR GFRAA in patients over 70 years has not been determined. Clinical correlation is essential. Performed By: #### L 500.2500, L100.0100 ####[facility] [address] [place], [address] ECRCL 66.70 ml/min Normal [facility] Comment on above: Performed By: #### L 500.2500, L100.0100 ####[facility] [address] [place], [address] EST GFR - AA 79 mL/min Normal >60 [facility] Comment on above: Result Comment: Afri can Maltese GFR Calc Performed By: #### L 500.2500, L100.0100 ####[facility] [address] [place], [address] GAP 9 Normal 5-15 [facility] Comment on above: Performed By: #### L 500.2500, L100.0100 ####[facility] [address] [place], [address] GFR/1.73 sq M.predicted among non-blacks MDRD (S/P/Bld) [Vol rate/Area] 66 mL/min/{1.73_m2} Normal >60 [facility] Comment on above: Result Comment: Non- GFR Calc Performed By: #### L 500.2500, L100.0100 ####[facility] [address] [place], [address] Glucose [Mass/Vol] 109 mg/dL High 74-106 [facility] Comment on above: Result Comment: Fast ing Glucose result from 100 to 125 mg/dL suggests IMPAIRED HOMEOSTASIS per A.D.A. criteria. Performed By: #### L 500.2500, L100.0100 ####[facility] [address] [place], [address] Potassium [Moles/Vol] 4.0 mmol/L Normal 3.5-5.1 [facility] Comment on above: Performed By: #### L 500.2500, L100.0100 ####[facility] [address] [place], [address] Sodium [Moles/Vol] 136 mmol/L Normal 136-145 [facility] Comment on above: Performed By: #### L 500.2500, L100.0100 ####[facility] [address], [address] Urea nitrogen [Mass/Vol] 18 mg/dL Normal 7-18 [facility] Comment on above: Performed By: #### L 500.2500, L100.0100 ####[facility] [address], [address] CBC W/Diff, Automatedon 05-31 Absolute Lymph 1.54 X10 3/uL Normal 0.83-4.51 [facility] Comment on above: Performed By: #### L 500.2500, L100.0100 ####[facility] [address] [place], [address] Absolute Neut 7.6 X10 3/uL Normal 2.0-7.7 [facility] Comment on above: Performed By: #### L 500.2500, L100.0100 ####[facility] [address], [address] Basophils/100 WBC (Bld) 0.8 % Normal 0-1 [facility] Comment on above: Performed By: #### L 500.2500, L100.0100 ####[facility] [address], [address] Eosinophils/100 WBC (Bld) 1.9 % Normal 0-5 [facility] Comment on above: Performed By: #### L 500.2500, L100.0100 ####[facility] [address] [place], [address] Erythrocyte distribution width (RBC) [Ratio] 13.4 % Normal 11.6-14.6 [facility] Comment on above: Performed By: #### L 500.2500, L100.0100 ####[facility] [address], [address] Hematocrit (Bld) [Volume fraction] 36.2 % Low 40-54 [facility] Comment on above: Performed By: #### L 500.2500, L100.0100 ####[facility] [address] [place], [address] Hemoglobin (Bld) [Mass/Vol] 12.6 g/dL Low 13.0-16.5 [facility] Comment on above: Performed By: #### L 500.2500, L100.0100 ####[facility] [address] [place], [address] IG% 0.800 Normal 0.0-0.9 [facility] Comment on above: Result Comment: IG% - Immature Granulocytes (promyelocytes, myelocytes and metamyelocytes) > 1% indicates that a LEFT SHIFT is Present. Performed By: #### L 500.2500, L100.0100 ####[facility] [address] [place], [address] Lymphocytes/100 WBC (Bld) 14.5 % Low 19-41 [facility] Comment on above: Performed By: #### L 500.2500, L100.0100 ####[facility] [address] [place], [address] MCH (RBC) [Entitic mass] 35.6 pg High 27.0-32.0 [facility] Comment on above: Performed By: #### L 500.2500, L100.0100 ####[facility] [address] [place], [address] MCHC (RBC) [Mass/Vol] 34.8 g/dL Normal 32-36 [facility] Comment on above: Performed By: #### L 500.2500, L100.0100 ####[facility] [address] [place], [address] MCV (RBC) [Entitic vol] 102.3 fL High 80-94 [facility] Comment on above: Performed By: #### L 500.2500, L100.0100 ####[facility] [address] [place], [address] Monocytes/100 WBC (Bld) 10.1 % High 0-10 [facility] Comment on above: Performed By: #### L 500.2500, L100.0100 ####[facility] [address] [place], [address] Neutrophils/100 WBC (Bld) 71.9 % High 47-70 [facility] Comment on above: Performed By: #### L 500.2500, L100.0100 ####[facility] [address] [place], [address] Nucleated RBC (Bld) [#/Vol] 0 10*3/uL Normal 0-5 [facility] Comment on above: Performed By: #### L 500.2500, L100.0100 ####[facility] [address] [place], [address] Platelet mean volume (Bld) [Entitic vol] 9.2 fL Normal 6.2-12.0 [facility] Comment on above: Performed By: #### L 500.2500, L100.0100 ####[facility] [address] [place], [address] Platelets (Bld) [#/Vol] 160 10*3/uL Normal 150-450 [facility] Comment on above: Performed By: #### L 500.2500, L100.0100 ####[facility] [address] [place], [address] RBC (Bld) [#/Vol] 3.54 10*6/uL Low 4.6-6.2 [facility] Comment on above: Performed By: #### L 500.2500, L100.0100 ####[facility] [address] [place], [address] RDW SD 50.6 fl High 35.1-43.9 [facility] Comment on above: Performed By: #### L 500.2500, L100.0100 ####[facility] [address] [place], [address] WBC (Bld) [#/Vol] 10.6 10*3/uL Normal 4.4-11.0 [facility] Comment on above: Performed By: #### L 500.2500, L100.0100 ####[facility] [address], [address] CT Chest, Abd, Pelvis WO Con ton 06-19-2024 CT Chest, Abd, Pelvis WO Cont [facility] [address] [place] [address] CT Chest, Abd, Pelvis WO Cont MR#: [id number] Acct: [id number] Name: ZACHARY SHORT Rep #: [id number] : 1945 M 78 From: Abraham jurado MD PCP: Dr. Ailin Pierson MD Status: [facility] Study: CT Chest, Abd, Pelvis WO Cont Date of Exam: Exam# [id number] Ordering Dr: Faustino Starr MD [id number] STUDY: CT CHEST, ABDOMEN T PELVIS WITHOUT [...] Faustino Starr MD; Dr. Ailin Pierson MD Managed Care Provider: Signed Normal [facility] Emergency Department Summary on 06-19-2024 Emergency Department Summary [facility] Medical Records Department [address] [place] [address] Emergency Department Summary 06/19/24 MR#: [id number] Acct: [id number] Name: ZACHARY SHORT Rep #: [id number] : 1945 78 From: Faustino Starr MD [...] amount of urine contained in his bladder. [facility] Medical History Acute on chronic urinary [...] and comorbidities, (more content not included)... Normal [facility] H AND P Exam - Hospital[place] 06-19-2024 H&P Exam - Hospitalist [facility] Medical Records Department [address] [place] [address] H P Exam - Hospitalist 06/19/24 1132 MR#: [id number] Acct: [id number] Name: ZACHARY SHORT Rep #: [id number] : 1945 78 From: Itzel Randle MD PCP: Dr. Ailin Pierson MD Status:ADM VASU Location: [place] [address] HPI - General General Date of Admission: [...] in the ED were BP of 109/75, ID of 75, RR of 16 and oxygen [...] as rib fractures due to mechanical fall. [facility] Medical History Acute on chronic urinary [...] conjunctivae norm (more content not included)... Normal [facility] Spine Lumbar without Contras ton 06-19-2024 Spine Lumbar without Contrast [facility] [address] [place], [place] [address] Spine Lumbar without Contrast MR#: [id number] Acct: [id number] Name: ZACHARY SHORT Rep #: [id number] : 1945 M 78 From: Abraham jurado MD PCP: Dr. Ailin Pierson MD Status: REG ER Study: Spine Lumbar without Contrast Date of Exam: Exam# [id number] Ordering Dr: Faustino Starr MD [id number] STUDY: CT LUMBAR SPINE WITHOUT CONTRAST REASON [...] Faustino Starr MD; Dr. Ailin Pierson MD Managed Care Provider: Signed [facility] CNNURSEon 05-31-2024 CNNURSE Nurse Visit (UROLMD) -- ZACHARY SHORT ([id number]) 1945 M Date Time Provider Department 05/31/24 [...] - azelastine 0.1% nasal spray Use 1 Goddard in each nostril two times a day. [...] Take 1 tablet by mouth twice weekly [id number], then decrease to 1 tablet weekly. - [...] Status:Closed by GREGORY CASAREZ on 05/31/24 Normal [facility] Culture, Blood (WB)on 2023 CUB Blood cultures x2, f rom two different sites No growth in 5 days. Normal [facility] Comment on above: Performed By: #### L 100.0100, L500.4050, L501.2450, L503.6005 #### [facility] [address] [place], [place], [address] Urine Cultureon 05-26-2024 [facility] MAHONEY Enterococcus faecalis [place] Count 80,000-100,000 MIXC Mixed contaminants. Submit a new specimen if indicated. ENTCPX [place] Count 11,000-25,000 Enterobacter cloacae complex Ampicillin Islt [...] TMP SMX Islt DYLAN <=20 S Normal [facility] Comment on above: Performed By: #### M 100.2200 ####[facility] [address] [place], [place], [address] Basic Metabolic Profile (BMP )on 05-24-2024 BUN/CRE 21.1 RATIO High 10-20 [facility] Comment on above: Performed By: #### L 100.0100, L500.4050, L501.2450, L503.6005 #### [facility] [address] [place], [address] CA,Total 8.7 mg/dL Normal 8.5-10.1 [facility] Comment on above: Performed By: #### L 100.0100, L500.4050, L501.2450, L503.6005 #### [facility] [address] [place], [address] Chloride [Moles/Vol] 107 mmol/L Normal 98-107 [facility] Comment on above: Performed By: #### L 100.0100, L500.4050, L501.2450, L503.6005 #### [facility] [address] [place], [address] CO2 [Moles/Vol] 26.0 mmol/L Normal 21.0-32.0 [facility] Comment on above: Performed By: #### L 100.0100, L500.4050, L501.2450, L503.6005 #### [facility] [address] [place], [address] Creatinine [Mass/Vol] 0.71 mg/dL Normal 0.70-1.30 [facility] Comment on above: Result Comment: The validity of the calculated GFR GFRAA in patients over 70 years has not been determined. Clinical correlation is essential. Performed By: #### L 100.0100, L500.4050, L501.2450, L503.6005 #### [facility] [address] [place], [address] ECRCL 93.71 ml/min Normal [facility] Comment on above: Performed By: #### L 100.0100, L500.4050, L501.2450, L503.6005 #### [facility] [address] [place], [address] EST GFR - AA 137 mL/min Normal >60 [facility] Comment on above: Result Comment: Afri can Maltese GFR Calc Performed By: #### L 100.0100, L500.4050, L501.2450, L503.6005 #### [facility] [address] [place], [address] GAP 5 Normal 5-15 [facility] Comment on above: Performed By: #### L 100.0100, L500.4050, L501.2450, L503.6005 #### [facility] [address] [place], [address] GFR/1.73 sq M.predicted among non-blacks MDRD (S/P/Bld) [Vol rate/Area] 113 mL/min/{1.73_m2} Normal >60 [facility] Comment on above: Result Comment: Non- GFR Calc Performed By: #### L 100.0100, L500.4050, L501.2450, L503.6005 #### [facility] [address] [place], [address] Glucose [Mass/Vol] 102 mg/dL Normal 74-106 [facility] Comment on above: Result Comment: Fast ing Glucose result from 100 to 125 mg/dL suggests IMPAIRED HOMEOSTASIS per A.D.A. criteria. Performed By: #### L 100.0100, L500.4050, L501.2450, L503.6005 #### [facility] [address] [place], [address] Potassium [Moles/Vol] 3.5 mmol/L Normal 3.5-5.1 [facility] Comment on above: Performed By: #### L 100.0100, L500.4050, L501.2450, L503.6005 #### [facility] [address] [place], [address] Sodium [Moles/Vol] 138 mmol/L Normal 136-145 [facility] Comment on above: Performed By: #### L 100.0100, L500.4050, L501.2450, L503.6005 #### [facility] [address] [place], [address] Urea nitrogen [Mass/Vol] 15 mg/dL Normal 7-18 [facility] Comment on above: Performed By: #### L 100.0100, L500.4050, L501.2450, L503.6005 #### [facility] [address] [place], [address] Blood urea nitrogen (BUN)/cr eatinine ratioOrdered By: Brayden Gaona on 05-24-2024 Urea nitrogen/Creatinine [Mass ratio] 21.1 mg/mg High 10- [facility] ([id number]) 1945 M Date Time Provider Department 05/24/24 [...] He is hoping to get discharged from [facility] today but doesn't have that many catheters til the Nurse visit on 05-31-2024. Anyway to get some #14 Coude catheter samples from [place] office to get him til 05-31-2024? As he is there, if not he will have son try and drive to [place] to get. Destinee Cloud, LAY 05/24/2024 3:58 PM Signed Spoke with patient and we will touch based tomorrow if son needs to come here or if they ordered for him before leaving the Hospital. Ninfa Patel MA 05/24/2024 4:37 PM Signed I will put 10 14fr coude self caths at our front desk auxiliary. [facility] [address] [facility] 2nd floor middle desk. Son, Arnoldo notified and they will have them picked up tomorrow. YENY Yu Janelle, LAY 05/25/2024 11:06 AM Signed Left message on voicemail to let us know if he needs anymore. Allergies As of Date: 05/24/2024 (No Known Allergies) Date Reviewed: 05/16/2024 Reviewed by: Sarah Ware APRN.[employer]VER - Fully Assessed Reason for Visit: CIC at home [Other] Prescriptions as of 05/25/2024 - ramelteon (ROZEREM) 8 mg tablet Take 1 tablet by mouth daily at bedtime. - azelastine 0.1% nasal spray Use 1 Goddard in each nostril two times a day. [...] Take 1 tablet by mouth twice weekly [id number], then decrease to 1 tablet weekly. - [...] 11/29/2023 Encounter Status:Closed by DESTINEE CLOUD on 05/25/24 Normal [facility] Carbon dioxide measurementOr dered By: Brayden Gaona on 05-24-2024 CO2 [Moles/Vol] 26.0 mmol/L 21.0-32.0 [facility] Chloride measurementOrdered By: Brayden Gaona on 05-24-2024 Chloride [Moles/Vol] 107 mmol/L 98-107 [facility] Consultation - Orthopedicson 05-24-2024 Consultation - Orthopedics [facility] Medical Records Department [address] [place] [address] Consultation - Orthopedics 05/24/24 0821 MR#: [id number] Acct: [id number] Name: ZACHARY SHORT Rep #: [id number] : 1945 78 From: Samuel Adler MD PCP: Dr. Ailin Pierson MD Status:ADM IN Location: [place] [address] HPI Consult Data Date of Consult: 05/24/24 [...] admitted due to rhabdomyolysis and urinary issues. [facility] Medical History (Updated 05/24/24 @ 08:25 [...] 0 to (more content not included)... Normal [facility] Discharge Instructionon 04-30 Discharge Instruction [facility] Medical Records Department [address] [place] [address] Instructions for Home/Discharge Instructions 05/24/24 1429 MR#: [id number] Acct: [id number] Name: ZACHARY SHORT Rep #: [id number] : 1945 78 From: Brayden Gaona DO [...] MD; Dr. Samuel Adler MD Signed Normal [facility] Estimated glomerular filtrat ion rate (GFR) AmericanOrdered By: Brayden Gaona on 05-24-2024 Estimated GFR (MDRD) Amer 137 mL/min >60 [facility] Comment on above: GFR Calc Estimation of creatinine lopez aranceOrdered By: Brayden Gaona on 05-24-2024 Estimated Creatinine Clearance Calc 93.71 ml/min [facility] Glomerular filtration rate ( GFR) estimationOrdered By: Brayden Gaona on 05-24-2024 Estimated GFR (MDRD) Non-Af Amer 113 mL/min >60 [facility] Comment on above: Non- GFR Calc Glucose measurementOrdered B y: Brayden Gaona on 05-24-2024 Glucose [Mass/Vol] 102 mg/dL 74-106 [facility] Comment on above: Fasting Glucose resu lt from 100 to 125 mg/dL suggests IMPAIRED HOMEOSTASIS per A.D.A. criteria. Potassium measurementOrdered By: Brayden Gaona on 05-24-2024 Potassium [Moles/Vol] 3.5 mmol/L 3.5-5.1 [facility] Serum anion gap measurementO rdered By: Brayden Gaona on 05-24-2024 Anion gap [Moles/Vol] 5 mmol/L 5-15 [facility] Serum or plasma calcium valentin urement (mass/volume)Ordered By: Brayden Gaona on 05-24-2024 Calcium [Mass/Vol] 8.7 mg/dL 8.5-10.1 [facility] Serum or plasma creatinine m easurement (mass/volume)Ordered By: Brayden Gaona on 05-24-2024 Creatinine [Mass/Vol] 0.71 mg/dL 0.70-1.30 [facility] Comment on above: The validity of the calculated GFR & GFRAA in patients over 70 years has not been determined. Clinical correlation is essential. Serum or plasma urea nitroge n measurement (mass/volume)Ordered By: Brayden Gaona on 05-24-2024 Urea nitrogen [Mass/Vol] 15 mg/dL 7-18 [facility] Sodium levelOrdered By: Brayden Gaona on 05-24-2024 Sodium [Moles/Vol] 138 mmol/L 136-145 [facility] Urine Cultureon 05-24-2024 [facility] Culture exhibits no growth. Normal [facility] Comment on above: Performed By: #### L 400.0001 #### [facility] [address] [place], [address] Absolute neutrophil countOrd ered By: Tyler Garcia on 05-23-2024 Neutrophils (Bld) [#/Vol] 9.0 10*3/uL High 2.0-7.7 [facility] Albumin to globulin ratioOrd ered By: Tyler Garcia on 05-23-2024 Albumin/Globulin [Mass ratio] 0.6 {ratio} Low 0.9-2.4 [facility] Basic Metabolic Profile (BMP )on 05-23-2024 BUN/CRE 21.1 RATIO High 10-20 [facility] Comment on above: Performed By: #### L 500.4050, L500.3400, L500.2500, L100.0100, L501.5200 ####[facility] [address] [place], [address] CA,Total 8.4 mg/dL Low 8.5-10.1 [facility] Comment on above: Performed By: #### L 500.4050, L500.3400, L500.2500, L100.0100, L501.5200 ####[facility] [address] [place], [address] Chloride [Moles/Vol] 109 mmol/L High 98-107 [facility] Comment on above: Performed By: #### L 500.4050, L500.3400, L500.2500, L100.0100, L501.5200 ####[facility] [address] [place], [address] CO2 [Moles/Vol] 25.0 mmol/L Normal 21.0-32.0 [facility] Comment on above: Performed By: #### L 500.4050, L500.3400, L500.2500, L100.0100, L501.5200 ####[facility] [address] [place], [address] Creatinine [Mass/Vol] 0.76 mg/dL Normal 0.70-1.30 [facility] Comment on above: Result Comment: The validity of the calculated GFR GFRAA in patients over 70 years has not been determined. Clinical correlation is essential. Performed By: #### L 500.4050, L500.3400, L500.2500, L100.0100, L501.5200 ####[facility] [address] [place], [address] ECRCL 93.71 ml/min Normal [facility] Comment on above: Performed By: #### L 500.4050, L500.3400, L500.2500, L100.0100, L501.5200 ####[facility] [address] [place], [address] EST GFR - AA 127 mL/min Normal >60 [facility] Comment on above: Result Comment: Afri can Maltese GFR Calc Performed By: #### L 500.4050, L500.3400, L500.2500, L100.0100, L501.5200 ####[facility] [address] [place], [address] GAP 6 Normal 5-15 [facility] Comment on above: Performed By: #### L 500.4050, L500.3400, L500.2500, L100.0100, L501.5200 ####[facility] [address] [place], [address] GFR/1.73 sq M.predicted among non-blacks MDRD (S/P/Bld) [Vol rate/Area] 105 mL/min/{1.73_m2} Normal >60 [facility] Comment on above: Result Comment: Non- GFR Calc Performed By: #### L 500.4050, L500.3400, L500.2500, L100.0100, L501.5200 ####[facility] [address] [place], [address] Glucose [Mass/Vol] 89 mg/dL Normal 74-106 [facility] Comment on above: Performed By: #### L 500.4050, L500.3400, L500.2500, L100.0100, L501.5200 ####[facility] [address] [place], [address] Potassium [Moles/Vol] 3.8 mmol/L Normal 3.5-5.1 [facility] Comment on above: Performed By: #### L 500.4050, L500.3400, L500.2500, L100.0100, L501.5200 ####[facility] [address] [place], [address] Sodium [Moles/Vol] 139 mmol/L Normal 136-145 [facility] Comment on above: Performed By: #### L 500.4050, L500.3400, L500.2500, L100.0100, L501.5200 ####[facility] [address] [place], [address] Urea nitrogen [Mass/Vol] 16 mg/dL Normal 7-18 [facility] Comment on above: Performed By: #### L 500.4050, L500.3400, L500.2500, L100.0100, L501.5200 ####[facility] [address] [place], [address] Basophil percentageOrdered B y: Tyler Garcia on 05-23-2024 Basophils/100 WBC (Bld) 0.7 % 0-1 [facility] Bilirubin directOrdered By: Tyler Garcia on 05-23-2024 Bilirubin.direct [Mass/Vol] 0.12 mg/dL 0.00-0.30 [facility] Bilirubin, totalOrdered By: Tyler Garcia on 05-23-2024 Bilirubin [Mass/Vol] 0.50 mg/dL 0.20-1.00 [facility] Comment on above: For patients on eltr ombopag therapy, use of Dimension [place] TBIL is not recommended. CBC W/Diff, Automatedon 04-30 Absolute Lymph 1.41 X10 3/uL Normal 0.83-4.51 [facility] Comment on above: Performed By: #### L 500.4050, L500.3400, L500.2500, L100.0100, L501.5200 ####[facility] [address] [place], [address] Absolute Neut 9.0 X10 3/uL High 2.0-7.7 [facility] Comment on above: Performed By: #### L 500.4050, L500.3400, L500.2500, L100.0100, L501.5200 ####[facility] [address] [place], [address] Basophils/100 WBC (Bld) 0.7 % Normal 0-1 [facility] Comment on above: Performed By: #### L 500.4050, L500.3400, L500.2500, L100.0100, L501.5200 ####[facility] [address] [place], [address] Eosinophils/100 WBC (Bld) 2.2 % Normal 0-5 [facility] Comment on above: Performed By: #### L 500.4050, L500.3400, L500.2500, L100.0100, L501.5200 ####[facility] [address] [place], [address] Erythrocyte distribution width (RBC) [Ratio] 13.0 % Normal 11.6-14.6 [facility] Comment on above: Performed By: #### L 500.4050, L500.3400, L500.2500, L100.0100, L501.5200 ####[facility] [address] [place], [address] Hematocrit (Bld) [Volume fraction] 34.7 % Low 40-54 [facility] Comment on above: Performed By: #### L 500.4050, L500.3400, L500.2500, L100.0100, L501.5200 ####[facility] [address] [place], [address] Hemoglobin (Bld) [Mass/Vol] 11.6 g/dL Low 13.0-16.5 [facility] Comment on above: Performed By: #### L 500.4050, L500.3400, L500.2500, L100.0100, L501.5200 ####[facility] [address] [place], [address] IG% 0.800 Normal 0.0-0.9 [facility] Comment on above: Result Comment: IG% - Immature Granulocytes (promyelocytes, myelocytes and metamyelocytes) > 1% indicates that a LEFT SHIFT is Present. Performed By: #### L 500.4050, L500.3400, L500.2500, L100.0100, L501.5200 ####[facility] [address] [place], [address] Lymphocytes/100 WBC (Bld) 11.8 % Low 19-41 [facility] Comment on above: Performed By: #### L 500.4050, L500.3400, L500.2500, L100.0100, L501.5200 ####[facility] [address] [place], [address] MCH (RBC) [Entitic mass] 34.7 pg High 27.0-32.0 [facility] Comment on above: Performed By: #### L 500.4050, L500.3400, L500.2500, L100.0100, L501.5200 ####[facility] [address] [place], [address] MCHC (RBC) [Mass/Vol] 33.4 g/dL Normal 32-36 [facility] Comment on above: Performed By: #### L 500.4050, L500.3400, L500.2500, L100.0100, L501.5200 ####[facility] [address] [place], [address] MCV (RBC) [Entitic vol] 103.9 fL High 80-94 [facility] Comment on above: Performed By: #### L 500.4050, L500.3400, L500.2500, L100.0100, L501.5200 ####[facility] [address] [place], [address] Monocytes/100 WBC (Bld) 9.4 % Normal 0-10 [facility] Comment on above: Performed By: #### L 500.4050, L500.3400, L500.2500, L100.0100, L501.5200 ####[facility] [address] [place], [address] Neutrophils/100 WBC (Bld) 75.1 % High 47-70 [facility] Comment on above: Performed By: #### L 500.4050, L500.3400, L500.2500, L100.0100, L501.5200 ####[facility] [address] [place], [address] Nucleated RBC (Bld) [#/Vol] 0 10*3/uL Normal 0-5 [facility] Comment on above: Performed By: #### L 500.4050, L500.3400, L500.2500, L100.0100, L501.5200 ####[facility] [address] [place], [address] Platelet mean volume (Bld) [Entitic vol] 9.3 fL Normal 6.2-12.0 [facility] Comment on above: Performed By: #### L 500.4050, L500.3400, L500.2500, L100.0100, L501.5200 ####[facility] [address] [place], [address] Platelets (Bld) [#/Vol] 194 10*3/uL Normal 150-450 [facility] Comment on above: Performed By: #### L 500.4050, L500.3400, L500.2500, L100.0100, L501.5200 ####[facility] [address] [place], [address] RBC (Bld) [#/Vol] 3.34 10*6/uL Low 4.6-6.2 [facility] Comment on above: Performed By: #### L 500.4050, L500.3400, L500.2500, L100.0100, L501.5200 ####[facility] [address] [place], [address] RDW SD 49.9 fl High 35.1-43.9 [facility] Comment on above: Performed By: #### L 500.4050, L500.3400, L500.2500, L100.0100, L501.5200 ####[facility] [address] [place], [address] WBC (Bld) [#/Vol] 12.0 10*3/uL High 4.4-11.0 [facility] Comment on above: Performed By: #### L 500.4050, L500.3400, L500.2500, L100.0100, L501.5200 ####[facility] [address] [place], [address] Comprehensive Metabolic Prof ilon 05-23-2024 Albumin/Globulin [Mass ratio] 0.6 {ratio} Low 0.9-2.4 [facility] Comment on above: Performed By: #### L 500.4050, L500.3400, L500.2500, L100.0100, L501.5200 ####[facility] [address] [place], [address] Eosinophil percentageOrdered By: Tyler Garcia on 05-23-2024 Eosinophils/100 WBC (Bld) 2.2 % 0-5 [facility] Erythrocyte distribution wid th (RBC) [Ratio]Ordered By: Tyler Garcia on 05-23-2024 Erythrocyte distribution width (RBC) [Entitic vol] 49.9 fL High 35.1-43.9 [facility] Erythrocyte distribution wid th ratioOrdered By: Tyler Garcia on 05-23-2024 Erythrocyte distribution width (RBC) [Ratio] 13.0 % 11.6-14.6 [facility] Hematocrit Auto (Bld) [Volum e fraction]Ordered By: Tyler Garcia on 05-23-2024 Hematocrit (Bld) [Volume fraction] 34.7 % Low 40-54 [facility] Hemoglobin measurementOrdere d By: Tyler Garcia on 05-23-2024 Hemoglobin (Bld) [Mass/Vol] 11.6 g/dL Low 13.0-16.5 [facility] Immature granulocytes/100 WB C Auto (Bld)Ordered By: Tyler Garcia on 05-23-2024 Immature granulocytes/100 WBC (Bld) 0.800 % 0.0-0.9 [facility] Comment on above: IG% - Immature Granu locytes (promyelocytes, myelocytes and metamyelocytes) > 1% indicates that a LEFT SHIFT is Present. International normalized rat io (INR) calculationOrdered By: Tyler Garcia on 05-23-2024 INR Coag (Bld) [Relative time] 1.5 {INR} [facility] Laboratory - Chemistry and C hemistry - challengeOrdered By: Tyler Gracia on 05-23-2024 AST [Catalytic activity/Vol] 205 U/L High [facility] Liver Profileon 05-23-2024 Albumin [Mass/Vol] 2.7 g/dL Low 3.2-5.0 [facility] Comment on above: Performed By: #### L 500.4050, L500.3400, L500.2500, L100.0100, L501.5200 ####[facility] [address] [place], [address] ALK P 69 U/L Normal 45-117 [facility] Comment on above: Performed By: #### L 500.4050, L500.3400, L500.2500, L100.0100, L501.5200 ####[facility] [address] [place], [address] ALT [Catalytic activity/Vol] 70 U/L High 16-61 [facility] Comment on above: Performed By: #### L 500.4050, L500.3400, L500.2500, L100.0100, L501.5200 ####[facility] [address] [place], [address] AST [Catalytic activity/Vol] 205 U/L High 15-37 [facility] Comment on above: Performed By: #### L 500.4050, L500.3400, L500.2500, L100.0100, L501.5200 ####[facility] [address] [place], [address] Bilirubin [Mass/Vol] 0.50 mg/dL Normal 0.20-1.00 [facility] Comment on above: Result Comment: For patients on eltrombopag therapy, use of Dimension [place] TBIL is not recommended. Performed By: #### L 500.4050, L500.3400, L500.2500, L100.0100, L501.5200 ####[facility] [address] [place], [address] Bilirubin.direct [Mass/Vol] 0.12 mg/dL Normal 0.00-0.30 [facility] Comment on above: Performed By: #### L 500.4050, L500.3400, L500.2500, L100.0100, L501.5200 ####[facility] [address] [place], [address] Globulin (S) [Mass/Vol] 4.3 g/dL High 2.2-4.2 [facility] Comment on above: Performed By: #### L 500.4050, L500.3400, L500.2500, L100.0100, L501.5200 ####[facility] [address] [place], [address] T PROT 7.0 g/dL Normal 6.4-8.2 [facility] Comment on above: Performed By: #### L 500.4050, L500.3400, L500.2500, L100.0100, L501.5200 ####[facility] [address] [place], [address] Lymphocytes Auto (Unsp spec) [#/Vol]Ordered By: Tyler Garcia on 05-23-2024 Lymphocytes (Bld) [#/Vol] 1.41 10*3/uL 0.83-4.51 [facility] Lymphocytes/100 WBC Auto (Un sp spec)Ordered By: Tyler Garcia on 05-23-2024 Lymphocytes/100 WBC (Bld) 11.8 % Low 19-41 [facility] MCV (mean corpuscular volume ) determinationOrdered By: Tyler Garcia on 05-23-2024 MCV (RBC) [Entitic vol] 103.9 fL High 80-94 [facility] Magnesiumon 05-23-2024 Magnesium [Mass/Vol] 2.3 mg/dL Normal 1.6-2.6 [facility] Comment on above: Performed By: #### L 500.4050, L500.3400, L500.2500, L100.0100, L501.5200 ####[facility] [address] [place], [place], [address] Magnesium measurementOrdered By: Tyler Garcia on 05-23-2024 Magnesium [Mass/Vol] 2.3 mg/dL 1.6-2.6 [facility] Mean corpuscular hemoglobin (MCH) determinationOrdered By: Tyler Garcia on 05-23-2024 MCH (RBC) [Entitic mass] 34.7 pg High 27.0-32.0 [facility] Mean corpuscular hemoglobin concentration (MCHC) determinationOrdered By: Tyler Garcia on 05-23-2024 MCHC (RBC) [Mass/Vol] 33.4 g/dL 32-36 [facility] Mean platelet volume determi nationOrdered By: Tyler Garcia on 05-23-2024 Platelet mean volume (Bld) [Entitic vol] 9.3 fL 6.2-12.0 [facility] Monocyte percentageOrdered B y: Tyler Garcia on 05-23-2024 Monocytes/100 WBC (Bld) 9.4 % 0-10 [facility] Neutrophil percentageOrdered By: Tyler Garcia on 05-23-2024 Neutrophils/100 WBC (Bld) 75.1 % High 47-70 [facility] Nucleated red blood cell per centageOrdered By: Tyler Garcia on 05-23-2024 Nucleated RBC/100 WBC (Bld) [Ratio] 0 % 0-5 [facility] Phosphoruson 05-23-2024 Phosphate [Mass/Vol] 2.9 mg/dL Normal 2.5-4.9 [facility] Comment on above: Performed By: #### L 501.2300, L501.9520 ####[facility] [address] [place], [place], [address] Phosphorus measurementOrdere d By: Tyler Garcia on 05-23-2024 Phosphorus Level 2.9 mg/dL 2.5-4.9 [facility] Platelet countOrdered By: Xavier Garcia on 05-23-2024 Platelets (Bld) [#/Vol] 194 10*3/uL 150-450 [facility] Prothrombin Time w/INRon INR Coag (PPP) [Relative time] 1.5 {INR} Normal [facility] Comment on above: Performed By: #### L 100.0100, L500.4050, L501.2450, L503.6005 #### [facility] [address] [place], [address] PT Coag (PPP) [Time] 18.0 s High 11.7-14.9 [facility] Comment on above: Performed By: #### L 100.0100, L500.4050, L501.2450, L503.6005 #### [facility] [address] [place], [place], [address] Prothrombin timeOrdered By: Tyler Garcia on 05-23-2024 PT Coag (PPP) [Time] 18.0 s High 11.7-14.9 [facility] RBC Auto (Bld) [#/Vol]Ordere d By: Tyler Garcia on 05-23-2024 RBC (Bld) [#/Vol] 3.34 10*6/uL Low 4.6-6.2 [facility] Serum globulin measurementOr dered By: Tyler Garcia on 05-23-2024 Globulin (S) [Mass/Vol] 4.3 g/dL High 2.2-4.2 [facility] Serum or plasma alanine anderson otransferase (ALT) measurementOrdered By: Tyler Garcia on 05-23-2024 ALT [Catalytic activity/Vol] 70 U/L High 16-61 [facility] Serum or plasma albumin valentin urement (mass/volume)Ordered By: Tyler Garcia on 05-23-2024 Albumin [Mass/Vol] 2.7 g/dL Low 3.2-5.0 [facility] Serum or plasma alkaline herb sphatase measurementOrdered By: Tyler Garcia on 05-23-2024 ALP [Catalytic activity/Vol] 69 U/L 45-117 [facility] TSH QnOrdered By: Tyler Bates ingh on 05-23-2024 Thyroid Stimulating Hormone (TSH) 1.080 uIU/mL 0.358-3.740 [facility] Thyroid Stim Hormone (TSH)on 05-23-2024 TSH 1.080 uIU/mL Normal 0.358-3.740 [facility] Comment on above: Performed By: #### L 501.2300, L501.9520 ####[facility] [address] [place], [address] Total proteinOrdered By: Gabino Garcia on 05-23-2024 Protein [Mass/Vol] 7.0 g/dL 6.4-8.2 [facility] Urine cultureOrdered By: Bonny Gaona on 05-23-2024 Bacteria identified Cx Nom (U) Culture exhibits no growth. [facility] White blood cell (WBC) count Ordered By: Tyler Garcia on 05-23-2024 WBC (Bld) [#/Vol] 12.0 10*3/uL High 4.4-11.0 [facility] 12 Lead EKGon 05-22-2024 12 Lead EKG [facility] Cardiovascular Services [address] [place] [address] 12 Lead EKG 05/22/24 1515 MR#: [id number] Acct: [id number] Name: ZACHARY SHORT Rep #: [id number] : 1945 78 From: Jose Richards MD [...] Abnormal ECG Confirmed by JOSE RICHARDS MD ([id number]), editorial manager HARI PINEDA ([id number]) on 05/24/2024 2:16:33 PM Referred By: Mich Stokes Confirmed By: JOSE RICHARDS MD 05/24/24 1416 Date Jose Richards MD CC: Dr. Ailin Pierson MD; Dr. Mich Stokes MD; Dr. Brayden Gaona DO Signed Normal [facility] Bilirubin Test strip Ql (U)O rdered By: Mich Stokes on 05-22-2024 Bilirubin Ql (U) Negative Negative [facility] Blood cultureOrdered By: Harish Stokes on 05-22-2024 Bacteria identified Cx Nom (Bld) No growth in 5 days. [facility] Brain/Head without Contrasto n 05-22-2024 Brain/Head without Contrast [facility] Imaging Services [address] [place], [place] [address] Brain/Head without Contrast MR#: [id number] Acct: [id number] Name: ZACHARY SHORT Rep #: [id number] : 1945 M 78 From: Marielena Roper MD PCP: Dr. Ailin Pierson MD Status: REG ER Study: Brain/Head without Contrast Date of Exam: 04/30 09/20 Exam# [id number] Ordering Dr: Mich Stokes MD [id number] INDICATION: fall and trauma EXAMINATION: CT BRAIN [...] Ailin Pierson MD; Dr. Mich Stokes MD Managed Care Provider: Signed Normal [facility] CBC W/Diff, Automatedon 12-2 Absolute Lymph 1.15 X10 3/uL Normal 0.83-4.51 [facility] Comment on above: Performed By: #### L 100.0100, L500.4050, L501.2450, L503.6005 #### [facility] [address] [place], [place], [address] Absolute Neut 12.4 X10 3/uL High 2.0-7.7 [facility] Comment on above: Performed By: #### L 100.0100, L500.4050, L501.2450, L503.6005 #### [facility] [address] [place], [address] Basophils/100 WBC (Bld) 0.6 % Normal 0-1 [facility] Comment on above: Performed By: #### L 100.0100, L500.4050, L501.2450, L503.6005 #### [facility] [address] [place], [address] Eosinophils/100 WBC (Bld) 0.2 % Normal 0-5 [facility] Comment on above: Performed By: #### L 100.0100, L500.4050, L501.2450, L503.6005 #### [facility] [address] [place], [address] Erythrocyte distribution width (RBC) [Ratio] 12.9 % Normal 11.6-14.6 [facility] Comment on above: Performed By: #### L 100.0100, L500.4050, L501.2450, L503.6005 #### [facility] [address] [place], [address] Hematocrit (Bld) [Volume fraction] 38.1 % Low 40-54 [facility] Comment on above: Performed By: #### L 100.0100, L500.4050, L501.2450, L503.6005 #### [facility] [address] [place], [address] Hemoglobin (Bld) [Mass/Vol] 12.9 g/dL Low 13.0-16.5 [facility] Comment on above: Performed By: #### L 100.0100, L500.4050, L501.2450, L503.6005 #### [facility] [address] [place], [address] IG% 0.500 Normal 0.0-0.9 [facility] Comment on above: Result Comment: IG% - Immature Granulocytes (promyelocytes, myelocytes and metamyelocytes) > 1% indicates that a LEFT SHIFT is Present. Performed By: #### L 100.0100, L500.4050, L501.2450, L503.6005 #### [facility] [address] [place], [address] Lymphocytes/100 WBC (Bld) 7.7 % Low 19-41 [facility] Comment on above: Performed By: #### L 100.0100, L500.4050, L501.2450, L503.6005 #### [facility] [address] [place], [address] MCH (RBC) [Entitic mass] 35.0 pg High 27.0-32.0 [facility] Comment on above: Performed By: #### L 100.0100, L500.4050, L501.2450, L503.6005 #### [facility] [address] [place], [address] MCHC (RBC) [Mass/Vol] 33.9 g/dL Normal 32-36 [facility] Comment on above: Performed By: #### L 100.0100, L500.4050, L501.2450, L503.6005 #### [facility] [address] [place], [address] MCV (RBC) [Entitic vol] 103.3 fL High 80-94 [facility] Comment on above: Performed By: #### L 100.0100, L500.4050, L501.2450, L503.6005 #### [facility] [address] [place], [address] Monocytes/100 WBC (Bld) 7.6 % Normal 0-10 [facility] Comment on above: Performed By: #### L 100.0100, L500.4050, L501.2450, L503.6005 #### [facility] [address] [place], [address] Neutrophils/100 WBC (Bld) 83.4 % High 47-70 [facility] Comment on above: Performed By: #### L 100.0100, L500.4050, L501.2450, L503.6005 #### [facility] [address] [place], [address] Nucleated RBC (Bld) [#/Vol] 0 10*3/uL Normal 0-5 [facility] Comment on above: Performed By: #### L 100.0100, L500.4050, L501.2450, L503.6005 #### [facility] [address] [place], [address] Platelet mean volume (Bld) [Entitic vol] 9.0 fL Normal 6.2-12.0 [facility] Comment on above: Performed By: #### L 100.0100, L500.4050, L501.2450, L503.6005 #### [facility] [address] [place], [address] Platelets (Bld) [#/Vol] 205 10*3/uL Normal 150-450 [facility] Comment on above: Performed By: #### L 100.0100, L500.4050, L501.2450, L503.6005 #### [facility] [address] [place], [address] RBC (Bld) [#/Vol] 3.69 10*6/uL Low 4.6-6.2 [facility] Comment on above: Performed By: #### L 100.0100, L500.4050, L501.2450, L503.6005 #### [facility] [address] [place], [address] RDW SD 49.2 fl High 35.1-43.9 [facility] Comment on above: Performed By: #### L 100.0100, L500.4050, L501.2450, L503.6005 #### [facility] [address] [place], [address] WBC (Bld) [#/Vol] 14.9 10*3/uL High 4.4-11.0 [facility] Comment on above: Performed By: #### L 100.0100, L500.4050, L501.2450, L503.6005 #### [facility] [address] [place], [address] CPK Total, Creatine Kinaseon 05-22-2024 CPK TOTAL 9519 U/L High 39-308 [facility] Comment on above: Performed By: #### L 100.0100, L500.4050, L501.2450, L503.6005 #### [facility] [address] [place], [address] Chest 1 View (Portable)on Chest 1 View (Portable) [facility] Services [address] [place] [address] Chest 1 View (Portable) MR#: [id number] Acct: [id number] Name: ZACHARY SHORT Rep #: [id number] : 1945 M 78 From: Marielena Roper MD PCP: Dr. Ailin Pierson MD Status: [facility] ER Study: Chest 1 View (Portable) Date of Exam: 05/22/24 Exam# [id number] Ordering Dr: Mich Stokes MD [id number] INDICATION: fever EXAMINATION/TECHNIQUE: X-RAY - XR Chest [...] Ailin Pierson MD; Dr. Mich Stokes MD Managed Care Provider: Signed Normal [facility] Comprehensive Metabolic Prof njon 05-22-2024 Albumin [Mass/Vol] 3.2 g/dL Normal 3.2-5.0 [facility] Comment on above: Performed By: #### L 100.0100, L500.4050, L501.2450, L503.6005 #### [facility] [address] [place], [address] Albumin/Globulin [Mass ratio] 0.7 {ratio} Low 0.9-2.4 [facility] Comment on above: Performed By: #### L 100.0100, L500.4050, L501.2450, L503.6005 #### [facility] [address] [place], [address] ALK P 79 U/L Normal 45-117 [facility] Comment on above: Performed By: #### L 100.0100, L500.4050, L501.2450, L503.6005 #### [facility] [address] [place], [address] ALT [Catalytic activity/Vol] 75 U/L High 16-61 [facility] Comment on above: Performed By: #### L 100.0100, L500.4050, L501.2450, L503.6005 #### [facility] [address] [place], [address] AST [Catalytic activity/Vol] 248 U/L High 15-37 [facility] Comment on above: Performed By: #### L 100.0100, L500.4050, L501.2450, L503.6005 #### [facility] [address] [place], [address] Bilirubin [Mass/Vol] 0.60 mg/dL Normal 0.20-1.00 [facility] Comment on above: Result Comment: For patients on eltrombopag therapy, use of Dimension [place] TBIL is not recommended. Performed By: #### L 100.0100, L500.4050, L501.2450, L503.6005 #### [facility] [address] [place], [address] BUN/CRE 23.4 RATIO High 10-20 [facility] Comment on above: Performed By: #### L 100.0100, L500.4050, L501.2450, L503.6005 #### [facility] [address] [place], [address] CA,Total 9.2 mg/dL Normal 8.5-10.1 [facility] Comment on above: Performed By: #### L 100.0100, L500.4050, L501.2450, L503.6005 #### [facility] [address], [address] Chloride [Moles/Vol] 107 mmol/L Normal 98-107 [facility] Comment on above: Performed By: #### L 100.0100, L500.4050, L501.2450, L503.6005 #### [facility] [address] [place], [address] CO2 [Moles/Vol] 26.0 mmol/L Normal 21.0-32.0 [facility] Comment on above: Performed By: #### L 100.0100, L500.4050, L501.2450, L503.6005 #### [facility] [address] [place], [address] Creatinine [Mass/Vol] 0.94 mg/dL Normal 0.70-1.30 [facility] Comment on above: Result Comment: The validity of the calculated GFR GFRAA in patients over 70 years has not been determined. Clinical correlation is essential. Performed By: #### L 100.0100, L500.4050, L501.2450, L503.6005 #### [facility] [address] [place], [address] ECRCL 81.06 ml/min Normal [facility] Comment on above: Performed By: #### L 100.0100, L500.4050, L501.2450, L503.6005 #### [facility] [address] [place], [address] EST GFR - AA 99 mL/min Normal >60 [facility] Comment on above: Result Comment: Afri can Maltese GFR Calc Performed By: #### L 100.0100, L500.4050, L501.2450, L503.6005 #### [facility] [address] [place], [address] GAP 6 Normal 5-15 [facility] Comment on above: Performed By: #### L 100.0100, L500.4050, L501.2450, L503.6005 #### [facility] [address] [place], [address] GFR/1.73 sq M.predicted among non-blacks MDRD (S/P/Bld) [Vol rate/Area] 82 mL/min/{1.73_m2} Normal >60 [facility] Comment on above: Result Comment: Non- GFR Calc Performed By: #### L 100.0100, L500.4050, L501.2450, L503.6005 #### [facility] [address] [place], [address] Globulin (S) [Mass/Vol] 4.6 g/dL High 2.2-4.2 [facility] Comment on above: Performed By: #### L 100.0100, L500.4050, L501.2450, L503.6005 #### [facility] [address] [place], [address] Glucose [Mass/Vol] 105 mg/dL Normal 74-106 [facility] Comment on above: Result Comment: Fast ing Glucose result from 100 to 125 mg/dL suggests IMPAIRED HOMEOSTASIS per A.D.A. criteria. Performed By: #### L 100.0100, L500.4050, L501.2450, L503.6005 #### [facility] [address] [place], [address] Potassium [Moles/Vol] 4.2 mmol/L Normal 3.5-5.1 [facility] Comment on above: Performed By: #### L 100.0100, L500.4050, L501.2450, L503.6005 #### [facility] [address] [place], [address] Sodium [Moles/Vol] 140 mmol/L Normal 136-145 [facility] Comment on above: Performed By: #### L 100.0100, L500.4050, L501.2450, L503.6005 #### [facility] [address] [place], [address] T PROT 7.8 g/dL Normal 6.4-8.2 [facility] Comment on above: Performed By: #### L 100.0100, L500.4050, L501.2450, L503.6005 #### [facility] [address] [place], [address] Urea nitrogen [Mass/Vol] 22 mg/dL High 7-18 [facility] Comment on above: Performed By: #### L 100.0100, L500.4050, L501.2450, L503.6005 #### [facility] [address] [place], [address] Elbow min 3 Viewson 05-22-20 Elbow min 3 Views [facility] Imaging Services [address] [place] [address] Elbow min 3 Views MR#: [id number] Acct: [id number] Name: ZACHARY SHORT Rep #: [id number] : 1945 M 78 From: Marielena Roper MD PCP: Dr. Ailin Pierson MD Status: REG ER Study: Elbow min 3 Views Date of Exam: 05/22/24 Exam# [id number] Ordering Dr: Mich Stokes MD [id number] INDICATION: fall EXAMINATION/TECHNIQUE: X-RAY - RIGHT XR [...] Ailin Pierson MD; Dr. Mich Stokes MD Managed Care Provider: Signed Normal [facility] Emergency Department Summary on 05-22-2024 Emergency Department Summary [facility] System Medical Records Department [address] [place] [address] Emergency Department Summary 05/22/24 MR#: [id number] Acct: [id number] Name: ZACHARY SHORT Rep #: [id number] : 1945 78 From: Mich Stokes MD [...] and left lateral hip. No deformity. 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 Shoulders are nontender. He is able [...] 99 Oxygen (more content not included)... Normal [facility] Epithelial cells.squamous LM Ql (Urine sed)Ordered By: Mich Stokes on 05-22-2024 Epithelial cells.squamous LM.HPF (Urine sed) [#/Area] 0 /[HPF] 0-5 [facility] Glucose Ql (U)Ordered By: Marcio Stokes on 05-22-2024 Urine Glucose (UA) Normal mg/dl Normal [facility] H AND P Exam - Hospitaliston 05-22-2024 H&P Exam - Hospitalist [facility] System Medical Records Department [address] [place] [address] H P Exam - Hospitalist 05/22/24 1837 MR#: [id number] Acct: [id number] Name: ZACHARY SHORT Rep #: [id number] : 1945 78 From: Tyler Garcia MD PCP: Dr. Ailin Pierson MD Status:ADM IN Location: [facility] [id number] HPI - General General Date of Admission: [...] leukoesterase 100, WBC 25-50 with 2+ bacteria. [facility] Medical History Hypertension Allergy/AdvReac Type Severity [...] Weight: 2 (more content not included)... Normal [facility] HIP, UNI W/ Pelvis 2-3 Views on 05-22-2024 HIP, UNI W/ Pelvis 2-3 Views [facility] [address] [place] [address] HIP, UNI W/ Pelvis 2-3 Views MR#: [id number] Acct: [id number] Name: ZACHARY SHORT Rep #: [id number] : 1945 78 From: Marielena Roper MD PCP: Dr. Ailin Pierson MD Status: [facility] Study: HIP, UNI W/ Pelvis 2-3 Views Date of Exam: Exam# [id number] Ordering Dr: Mich Stokes MD [id number] INDICATION: fall EXAMINATION/TECHNIQUE: X-RAY - XR Hip [...] Ailin Pierson MD; Dr. Mich Stokes MD Managed Care Provider: Signed Normal [facility] Influenza virus A and B and SARS-CoV-2 (COVID-19) and Respiratory syncytial virus RNAOrdered By: Mich Stokes on 05-22-2024 SARS-CoV-2 (COVID-19) RNA ANN-MARIE+probe Ql (Unsp spec) [facility] Ketones Test strip Ql (U)Ord ered By: Mich Stokes on 05-22-2024 Ketones Ql (U) 5 mg/dl High Negative [facility] Lactic Acidon 05-22-2024 Lactate [Moles/Vol] 3.0 mmol/L Invalid Interpretation Code 0.4-1.9 [facility] Comment on above: Result Comment: Crit ical Result(s) Called at: 21:07:00 05/22/2024 by: GARRISON MAN. Results read back by Pasha Gee Performed By: #### L 503.6005 ####[facility] [address] [place], [place], [id number] Lactate [Moles/Vol] 2.0 mmol/L Normal 0.4-1.9 [facility] Comment on above: Order Comment: Y Result Comment: Crit ical Result(s) Called at: 16:09:04 05/22/2024 by: Adrian Robison to Shar Ireland. Results read back by same. Performed By: #### L 100.0100, L500.4050, L501.2450, L503.6005 #### [facility] [address] [place], [address] Lactic acid measurementOrder ed By: Mich Stokes on 05-22-2024 Lactate [Moles/Vol] 3.0 mmol/L High 0.4-2.0 [facility] Comment on above: Critical Result(s) C alled at: 21:07:00 05/22/2024 by: GARRISON MAN. Results read back by Pasha Gee M100.678on 05-22-2024 M100.678 Pending SARS-CoV-2 (COVID 19) Negative INFLUENZA A Negative INFLUENZA B Negative RSV PCR Negative Normal [facility] Comment on above: Performed By: #### L 100.0100, L500.4050, L501.2450, L503.6005 #### [facility] [address] [place], [address] Microscopic analysis of urin e for red blood cells (RBC)Ordered By: Mich Stokes on 05-22-2024 Urine RBC 5-10 SEEN /hpf 0-5 [facility] Mucus LM Ql (Urine sed)Order ed By: Mich Stokes on 05-22-2024 Mucus Ql (Urine sed) 1+ /hpf [facility] Nitrite Test strip Ql (U)Ord ered By: Mich Stokes on 05-22-2024 Nitrite Ql (U) Positive High Negative [facility] Partial Thromboplast Timeon 05-22-2024 aPTT Coag (Bld) [Time] 33.5 s Normal 24.1-36.2 [facility] Comment on above: Performed By: #### L 100.0100, L500.4050, L501.2450, L503.6005 #### [facility] [address] [place], [address] Protein Test strip Ql (U)Ord ered By: Mich Stokes on 05-22-2024 Protein Ql (U) 100 mg/dl High Negative [facility] Prothrombin Time w/INRon INR Coag (PPP) [Relative time] 1.3 {INR} Normal [facility] Comment on above: Performed By: #### L 100.0100, L500.4050, L501.2450, L503.6005 #### [facility] [address] [place], [address] PT Coag (PPP) [Time] 16.1 s High 11.7-14.9 [facility] Comment on above: Performed By: #### L 100.0100, L500.4050, L501.2450, L503.6005 #### [facility] [address] [place], [address] Sinus/Facial Boneon 05-22-20 Sinus/Facial Bone [facility] Imaging Services [address] [place] [address] Sinus/Facial Bone MR#: [id number] Acct: [id number] Name: ZACHARY SHORT Rep #: [id number] : 1945 M 78 From: Marielena Roper MD PCP: Dr. Ailin Pierson MD Status: [facility] Study: Sinus/Facial Bone Date of Exam: 05/22/24 Exam# [id number] Ordering Dr: Mich Stokes MD [id number] INDICATION: FALL, INJURY EXAMINATION: CT FACIAL BONES [...] Ailin Pierson MD; Dr. Mich Stokes MD Managed Care Provider: Signed Normal [facility] Spine Cervical without Contr ason 05-22-2024 Spine Cervical without Contras [facility] [address] [place] [address] Spine Cervical without Contras MR#: [id number] Acct: [id number] Name: ZACHARY SHORT Rep #: [id number] : 1945 78 From: Marielena Roper MD PCP: Dr. Ailin Pierson MD Status: REG ER Study: Spine Cervical without Contras Date of Exam: 07/23/23 Exam# [id number] Ordering Dr: Mich Stokes MD [id number] INDICATION: FALL,INJURY EXAMINATION: CT CERVICAL SPINE - [...] Ailin Pierson MD; Dr. Mich Stokes MD Managed Care Provider: Signed Normal [facility] Total creatine kinase measur ementOrdered By: Mich Stokes on 05-22-2024 CK [Catalytic activity/Vol] 9519 U/L High 39-308 [facility] Urinalysis, Completeon 05-22 BACTERIA 2+ /hpf Normal None Seen [facility] Comment on above: Order Comment: COLLE CTOR TO SPECIFY Performed By: #### L 100.0100, L500.4050, L501.2450, L503.6005 #### [facility] [address] [place] [place], [address] Mucus Ql (Urine sed) 1+ /hpf Normal [facility] Comment on above: Order Comment: COLLE CTOR TO SPECIFY Performed By: #### L 100.0100, L500.4050, L501.2450, L503.6005 #### [facility] [address] [place], [address] RBC 5-10 SEEN Normal 0-5 [facility] Comment on above: Order Comment: LEAH CTOR TO SPECIFY Performed By: #### L 100.0100, L500.4050, L501.2450, L503.6005 #### [facility] [address] [place], [address] WBC 25-50 SEEN Normal 0-5 [facility] Comment on above: Order Comment: LEAH CTOR TO SPECIFY Performed By: #### L 100.0100, L500.4050, L501.2450, L503.6005 #### [facility] [address] [place], [address] EPI,SQUAMOUS 0 SEEN Normal 0-5 [facility] Comment on above: Order Comment: LEAH CTOR TO SPECIFY Performed By: #### L 100.0100, L500.4050, L501.2450, L503.6005 #### [facility] [address] [place], [address] Urine blood detectionOrdered By: Mich Stokes on 05-22-2024 Urine Occult Blood 250 /ul High Negative [facility] Urine clarityOrdered By: Harish Stokes on 05-22-2024 Clarity (U) Sl. Cloudy Clear [facility] Urine color determinationOrd ered By: Mich Stokes on 05-22-2024 Color (U) Yellow Yellow [facility] Urine cultureOrdered By: Bonny Gaona on 05-22-2024 Bacteria identified Cx Nom (U) Enterococcus faecalis Abnormal [facility] Bacteria identified Cx Nom (U) Enterobacter cloacae complex Abnormal [facility] Urine leukocyte esterase det ection by dipstickOrdered By: Mich Stokes on 05-22-2024 Leukocyte esterase Test strip Ql (U) 100 /ul High Negative [facility] Urine pHOrdered By: Mich dougherty on 05-22-2024 pH (U) 5.0 [pH] 5.0 - 8.0 [facility] Urine sediment bacteria coun t by microscopy (number/high power field)Ordered By: Mich Stokes on 05-22-2024 Bacteria LM.HPF (Urine sed) [#/Area] 2 /[HPF] None Seen [facility] Urine specific gravity measu rementOrdered By: Mich Stokes on 05-22-2024 Specific gravity (U) [Rel density] 1.025 1.002-1.030 [facility] Urobilinogen Ql (U)Ordered B y: Mich Stokes on 05-22-2024 Urine Urobilinogen Normal mg/dl Normal [facility] White blood cell countOrdere d By: Mich Stokes on 05-22-2024 Urine WBC 25-50 SEEN /hpf 0-5 [facility] aPTT Coag (PPP) [Time]Ordere d By: Mich Stokes on 05-22-2024 aPTT Coag (Bld) [Time] 33.5 s 24.1-36.2 [facility] CNOVon 05-16-2024 CNOV Office Visit (UROLMD ) -- ZACHARY SHORT ([id number]) 1945 M Date Time Provider Department 05/16/24 10:00 AM SARAH WARE UROFRIEDA During your visit today, we recorded the following information about you: Weight Height 109.3 kg 1.829 m Sarah Ware, ELEVATOR TENDER.HARD METALS HAND ENGRAVER 07/24/2024 1:09 PM Addendum Zachary Short is [...] lower back pain, he presented to the [place] ER on 05/09/2024. Treated with pain medication? [...] 1 azelastine 0.1% nasal spray Use 1 Goddard in each nostril two times a day. [...] Take 1 tablet by mouth twice weekly [id number], then decrease to 1 tablet weekly. 8 [...] pain. Al (more content not included)... Normal [facility] Jluis 05-14-2024 [facility] Telephone (INTMWS) -- ZACHARY SHORT ([id number]) 1945 M Date Time Provider Department 05/14/24 AILIN PIERSON During your visit today, we recorded the following information about you: Hari Rodriguez, LAY 05/14/2024 9:16 AM Signed Pt called in and reports he was in [facility] ER on Tuesday and they placed a [...] or just go to Urology. He said [facility] ER was telling him to see Dr Soto. Pt sates he has seen Dat KOHLER here and he isn't 'overjoyed' with him, the Pt said he isn't aggressive enough. The Pt was asking if we had another urologist here at [facility] and I told him we had [...] send referral to Dr. Soto, urology at [facility]. Kayla Betacnourt APRN.CNP 05/14/2024 12:27 PM Signed Order placed. [...] [R33.9] Order(s):CONSULT TO UROLOGY [9041] Order #: [id number]: 1 FUTURE Prescriptions as of 05/14/2024 - ramelteon (ROZEREM) 8 mg tablet Take 1 tablet by mouth daily at bedtime. - azelastine 0.1% nasal spray Use 1 Goddard in each nostril two times a day. [...] Take 1 tablet by mouth twice weekly [id number], then decrease to 1 tablet weekly. - [...] left, degenerati (more content not included)... Normal [facility] Abdomen/Pelvis W IV Cont ONL Yon 05-09-2024 Abdomen/Pelvis W IV Cont ONLY [facility] [address] [place] [id number] Abdomen/Pelvis W IV Cont ONLY MR#: [id number] Acct: [id number] Name: ZACHARY SHORT Rep #: [id number] : 1945 M 78 From: Daphne sky MD PCP: Dr. Ailin Pierson MD Status: DEP ER Study: Abdomen/Pelvis W IV Cont ONLY Date of Exam: Exam# [id number] Ordering Dr: Marin Platt DO ADDENDUM by Dr. 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 Fleischner Society Guidelines suggest no follow-up is necessary for patients with a low or high risk of malignancy. Electronically Signed: Daphne Duggan MD at 8:03 EST Reading Location ID and State: [facility] / [place] Tel , Service support , 05/21/24802 Date cc: Dr. Marin Platt DO; Dr. Ailin Pierson MD * Signed ADDENDUM by Dr. Daphne Duggan MD on 05/21/[address]/Abdomen/Pelvis W IV Cont ONLY IMPRESSION: undefined 05/21/24 0810 Date cc: Dr. Marin Platt DO; Dr. Ailin Pierson MD * Signed [id number] HISTORY: Right lower quadrant abdominal pain. TECHNIQUE: [...] 14:06 EST Reading Location ID and State: [facility] / [place] Tel , Service support , CC: Dr. Marin Platt DO; Dr. Ailin Pierson MD Managed Care Provider: Signed Normal [facility] Absolute neutrophil countOrd ered By: Marin Platt on 05-09-2024 Neutrophils (Bld) [#/Vol] 5.6 10*3/uL 2.0-7.7 [facility] Albumin to globulin ratioOrd ered By: Marin Platt on 05-09-2024 Albumin/Globulin [Mass ratio] 1.3 {ratio} 0.9-2.4 [facility] Basophil percentageOrdered B y: Marin Platt on 05-09-2024 Basophils/100 WBC (Bld) 0.6 % 0-1 [facility] Bilirubin Test strip Ql (U)O rdered By: Marin Platt on 05-09-2024 Bilirubin Ql (U) Negative Negative [facility] Bilirubin, totalOrdered By: Marin Platt on 05-09-2024 Bilirubin [Mass/Vol] 0.70 mg/dL 0.20-1.00 [facility] Comment on above: For patients on eltr ombopag therapy, use of Dimension [place] TBIL is not recommended. Blood urea nitrogen (BUN)/cr eatinine ratioOrdered By: Marin Platt on 05-09-2024 Urea nitrogen/Creatinine [Mass ratio] 18.4 mg/mg 10- [facility] CBC W/Diff, Automatedon 04-29 Absolute Lymph 1.44 X10 3/uL Normal 0.83-4.51 [facility] Comment on above: Performed By: #### L 100.0100, L500.4050, L501.2450, L503.6005 #### [facility] [address] [place], [address] Absolute Neut 5.6 X10 3/uL Normal 2.0-7.7 [facility] Comment on above: Performed By: #### L 100.0100, L500.4050, L501.2450, L503.6005 #### [facility] [address] [place], [address] Basophils/100 WBC (Bld) 0.6 % Normal 0-1 [facility] Comment on above: Performed By: #### L 100.0100, L500.4050, L501.2450, L503.6005 #### [facility] [address] [place], [address] Eosinophils/100 WBC (Bld) 1.6 % Normal 0-5 [facility] Comment on above: Performed By: #### L 100.0100, L500.4050, L501.2450, L503.6005 #### [facility] [address] [place], [address] Erythrocyte distribution width (RBC) [Ratio] 12.8 % Normal 11.6-14.6 [facility] Comment on above: Performed By: #### L 100.0100, L500.4050, L501.2450, L503.6005 #### [facility] [address] [place], [address] Hematocrit (Bld) [Volume fraction] 37.2 % Low 40-54 [facility] Comment on above: Performed By: #### L 100.0100, L500.4050, L501.2450, L503.6005 #### [facility] [address] [place], [address] Hemoglobin (Bld) [Mass/Vol] 13.0 g/dL Normal 13.0-16.5 [facility] Comment on above: Performed By: #### L 100.0100, L500.4050, L501.2450, L503.6005 #### [facility] [address] [place], [address] IG% 0.400 Normal 0.0-0.9 [facility] Comment on above: Result Comment: IG% - Immature Granulocytes (promyelocytes, myelocytes and metamyelocytes) > 1% indicates that a LEFT SHIFT is Present. Performed By: #### L 100.0100, L500.4050, L501.2450, L503.6005 #### [facility] [address] [place], [address] Lymphocytes/100 WBC (Bld) 18.1 % Low 19-41 [facility] Comment on above: Performed By: #### L 100.0100, L500.4050, L501.2450, L503.6005 #### [facility] [address] [place], [address] MCH (RBC) [Entitic mass] 35.6 pg High 27.0-32.0 [facility] Comment on above: Performed By: #### L 100.0100, L500.4050, L501.2450, L503.6005 #### [facility] [address] [place], [address] MCHC (RBC) [Mass/Vol] 34.9 g/dL Normal 32-36 [facility] Comment on above: Performed By: #### L 100.0100, L500.4050, L501.2450, L503.6005 #### [facility] [address] [place], [address] MCV (RBC) [Entitic vol] 101.9 fL High 80-94 [facility] Comment on above: Performed By: #### L 100.0100, L500.4050, L501.2450, L503.6005 #### [facility] [address] [place], [address] Monocytes/100 WBC (Bld) 8.3 % Normal 0-10 [facility] Comment on above: Performed By: #### L 100.0100, L500.4050, L501.2450, L503.6005 #### [facility] [address] [place], [address] Neutrophils/100 WBC (Bld) 71.0 % High 47-70 [facility] Comment on above: Performed By: #### L 100.0100, L500.4050, L501.2450, L503.6005 #### [facility] [address] [place], [address] Nucleated RBC (Bld) [#/Vol] 0 10*3/uL Normal 0-5 [facility] Comment on above: Performed By: #### L 100.0100, L500.4050, L501.2450, L503.6005 #### [facility] [address] [place], [address] Platelet mean volume (Bld) [Entitic vol] 9.2 fL Normal 6.2-12.0 [facility] Comment on above: Performed By: #### L 100.0100, L500.4050, L501.2450, L503.6005 #### [facility] [address] [place], [address] Platelets (Bld) [#/Vol] 175 10*3/uL Normal 150-450 [facility] Comment on above: Performed By: #### L 100.0100, L500.4050, L501.2450, L503.6005 #### [facility] [address] [place], [address] RBC (Bld) [#/Vol] 3.65 10*6/uL Low 4.6-6.2 [facility] Comment on above: Performed By: #### L 100.0100, L500.4050, L501.2450, L503.6005 #### [facility] [address] [place], [address] RDW SD 47.8 fl High 35.1-43.9 [facility] Comment on above: Performed By: #### L 100.0100, L500.4050, L501.2450, L503.6005 #### [facility] [address] [place], [address] WBC (Bld) [#/Vol] 7.9 10*3/uL Normal 4.4-11.0 [facility] Comment on above: Performed By: #### L 100.0100, L500.4050, L501.2450, L503.6005 #### [facility] [address] [place], [address] Carbon dioxide measurementOr dered By: Marin Platt on 05-09-2024 CO2 [Moles/Vol] 24.0 mmol/L 21.0-32.0 [facility] Chloride measurementOrdered By: Marin Platt on 05-09-2024 Chloride [Moles/Vol] 103 mmol/L 98-107 [facility] Comprehensive Metabolic Prof ilon 05-09-2024 Albumin [Mass/Vol] 4.3 g/dL Normal 3.2-5.0 [facility] Comment on above: Performed By: #### L 100.0100, L500.4050, L501.2450, L503.6005 #### [facility] [address] [place], [address] Albumin/Globulin [Mass ratio] 1.3 {ratio} Normal 0.9-2.4 [facility] Comment on above: Performed By: #### L 100.0100, L500.4050, L501.2450, L503.6005 #### [facility] [address] [place], [address] ALK P 78 U/L Normal 45-117 [facility] Comment on above: Performed By: #### L 100.0100, L500.4050, L501.2450, L503.6005 #### [facility] [address] [place], [address] ALT [Catalytic activity/Vol] 32 U/L Normal 16-61 [facility] Comment on above: Performed By: #### L 100.0100, L500.4050, L501.2450, L503.6005 #### [facility] [address] [place], [address] AST [Catalytic activity/Vol] 24 U/L Normal 15-37 [facility] Comment on above: Performed By: #### L 100.0100, L500.4050, L501.2450, L503.6005 #### [facility] [address] [place], [address] Bilirubin [Mass/Vol] 0.70 mg/dL Normal 0.20-1.00 [facility] Comment on above: Result Comment: For patients on eltrombopag therapy, use of Dimension [place] TBIL is not recommended. Performed By: #### L 100.0100, L500.4050, L501.2450, L503.6005 #### [facility] [address] [place], [address] BUN/CRE 18.4 RATIO Normal 10-20 [facility] Comment on above: Performed By: #### L 100.0100, L500.4050, L501.2450, L503.6005 #### [facility] [address] [place], [address] CA,Total 9.6 mg/dL Normal 8.5-10.1 [facility] Comment on above: Performed By: #### L 100.0100, L500.4050, L501.2450, L503.6005 #### [facility] [address] [place], [address] Chloride [Moles/Vol] 103 mmol/L Normal 98-107 [facility] Comment on above: Performed By: #### L 100.0100, L500.4050, L501.2450, L503.6005 #### [facility] [address] [place], [address] CO2 [Moles/Vol] 24.0 mmol/L Normal 21.0-32.0 [facility] Comment on above: Performed By: #### L 100.0100, L500.4050, L501.2450, L503.6005 #### [facility] [address] [place], [address] Creatinine [Mass/Vol] 1.03 mg/dL Normal 0.70-1.30 [facility] Comment on above: Result Comment: The validity of the calculated GFR GFRAA in patients over 70 years has not been determined. Clinical correlation is essential. Performed By: #### L 100.0100, L500.4050, L501.2450, L503.6005 #### [facility] [address] [place], [address] EST GFR - AA 89 mL/min Normal >60 [facility] Comment on above: Result Comment: Afri can Maltese GFR Calc Performed By: #### L 100.0100, L500.4050, L501.2450, L503.6005 #### [facility] [address] [place], [address] GAP 10 Normal 5-15 [facility] Comment on above: Performed By: #### L 100.0100, L500.4050, L501.2450, L503.6005 #### [facility] [address] [place], [address] GFR/1.73 sq M.predicted among non-blacks MDRD (S/P/Bld) [Vol rate/Area] 74 mL/min/{1.73_m2} Normal >60 [facility] Comment on above: Result Comment: Non- GFR Calc Performed By: #### L 100.0100, L500.4050, L501.2450, L503.6005 #### [facility] [address] [place], [address] Globulin (S) [Mass/Vol] 3.4 g/dL Normal 2.2-4.2 [facility] Comment on above: Performed By: #### L 100.0100, L500.4050, L501.2450, L503.6005 #### [facility] [address] [place], [address] Glucose [Mass/Vol] 117 mg/dL High 74-106 [facility] Comment on above: Result Comment: Fast ing Glucose result from 100 to 125 mg/dL suggests IMPAIRED HOMEOSTASIS per A.D.A. criteria. Performed By: #### L 100.0100, L500.4050, L501.2450, L503.6005 #### [facility] [address] [place], [address] Potassium [Moles/Vol] 3.8 mmol/L Normal 3.5-5.1 [facility] Comment on above: Performed By: #### L 100.0100, L500.4050, L501.2450, L503.6005 #### [facility] [address] [place], [address] Sodium [Moles/Vol] 137 mmol/L Normal 136-145 [facility] Comment on above: Performed By: #### L 100.0100, L500.4050, L501.2450, L503.6005 #### [facility] [address] [place], [address] T PROT 7.7 g/dL Normal 6.4-8.2 [facility] Comment on above: Performed By: #### L 100.0100, L500.4050, L501.2450, L503.6005 #### [facility] [address] [place], [address] Urea nitrogen [Mass/Vol] 19 mg/dL High 7-18 [facility] Comment on above: Performed By: #### L 100.0100, L500.4050, L501.2450, L503.6005 #### [facility] [address] [place], [address] Emergency Department Summary on 05-09-2024 Emergency Department Summary [facility] Medical Records Department [address] [place] [address] Emergency Department Summary 05/09/24 MR#: [id number] Acct: [id number] Name: ZACHARY SHORT Rep #: [id number] : 1945 78 From: Marin Platt DO [...] intact Psych: Cooperative, appropriate [facility] History no medical history Allergy/AdvReac Type [...] 71.0 H Lymph % (Auto) 18.1 L Barber % (Auto) 8.3 Eos % (Auto) 1.6 Baso % (Auto) 0.6 Absolute Neuts (auto) 5.6 Absolute Lymphs (auto) 1.44 Nucleated RBC % 0 Differential Comment Not Rep (more content not included)... Normal [facility] Eosinophil percentageOrdered By: Marin Platt on 05-09-2024 Eosinophils/100 WBC (Bld) 1.6 % 0-5 [facility] Epithelial cells.squamous LM Ql (Urine sed)Ordered By: Marin Platt on 05-09-2024 Epithelial cells.squamous LM.HPF (Urine sed) [#/Area] 0 /[HPF] 0-5 [facility] Erythrocyte distribution wid th (RBC) [Ratio]Ordered By: Marin Platt on 05-09-2024 Erythrocyte distribution width (RBC) [Entitic vol] 47.8 fL High 35.1-43.9 [facility] Erythrocyte distribution wid th ratioOrdered By: Marin Platt on 05-09-2024 Erythrocyte distribution width (RBC) [Ratio] 12.8 % 11.6-14.6 [facility] Estimated glomerular filtrat ion rate (GFR) AmericanOrdered By: Marin Platt on 05-09-2024 Estimated GFR (MDRD) Amer 89 mL/min >60 [facility] Comment on above: GFR Calc Glomerular filtration rate ( GFR) estimationOrdered By: Marin Platt on 05-09-2024 Estimated GFR (MDRD) Non-Af Amer 74 mL/min >60 [facility] Comment on above: Non- GFR Calc Glucose Ql (U)Ordered By: Bandar Platt on 05-09-2024 Urine Glucose (UA) Normal mg/dl Normal [facility] Glucose measurementOrdered B y: Marin Platt on 05-09-2024 Glucose [Mass/Vol] 117 mg/dL High 74-106 [facility] Comment on above: Fasting Glucose resu lt from 100 to 125 mg/dL suggests IMPAIRED HOMEOSTASIS per A.D.A. criteria. Hematocrit Auto (Bld) [Volum e fraction]Ordered By: Marin Platt on 05-09-2024 Hematocrit (Bld) [Volume fraction] 37.2 % Low 40-54 [facility] Hemoglobin measurementOrdere d By: Marin Platt on 05-09-2024 Hemoglobin (Bld) [Mass/Vol] 13.0 g/dL 13.0-16.5 [facility] Immature granulocytes/100 WB C Auto (Bld)Ordered By: Marin Platt on 05-09-2024 Immature granulocytes/100 WBC (Bld) 0.400 % 0.0-0.9 [facility] Comment on above: IG% - Immature Granu locytes (promyelocytes, myelocytes and metamyelocytes) > 1% indicates that a LEFT SHIFT is Present. Ketones Test strip Ql (U)Ord ered By: Marin Platt on 05-09-2024 Ketones Ql (U) Negative Negative [facility] - Chemistry and C hemistry - challengeOrdered By: Marin Platt on 05-09-2024 AST [Catalytic activity/Vol] 24 U/L 15-37 [facility] Lactic Acidon 05-09-2024 Lactate [Moles/Vol] 1.1 mmol/L Normal 0.4-1.9 [facility] Comment on above: Order Comment: Y Performed By: #### L 100.0100, L500.4050, L501.2450, L503.6005 #### [facility] [address] [place], [address] Lactic acid measurementOrder ed By: Marin Platt on 05-09-2024 Lactate [Moles/Vol] 1.1 mmol/L 0.4-2.0 [facility] Lipaseon 05-09-2024 Lipase [Catalytic activity/Vol] 32 U/L Normal 13-75 [facility] Comment on above: Result Comment: Linda armando note: LIPASE revised reference range effective 22. New Lipase methodology. Expected to produce lower values than the previous assay method. NEW Reference Range: 13 - 75 U/L Performed By: #### L 100.0100, L500.4050, L501.2450, L503.6005 #### [facility] [address] [place], [address] Lipase measurementOrdered By : Marin Platt on 05-09-2024 Lipase [Catalytic activity/Vol] 32 U/L 13-75 [facility] Comment on above: Please note:LIPASE r evised reference range effective 22. New Lipase methodology. Expected to produce lower values than the previous assay method. NEW Reference Range: 13 - 75 U/L Lymphocytes Auto (Unsp spec) [#/Vol]Ordered By: Marin Platt on 05-09-2024 Lymphocytes (Bld) [#/Vol] 1.44 10*3/uL 0.83-4.51 [facility] Lymphocytes/100 WBC Auto (Un sp spec)Ordered By: Marin Platt on 05-09-2024 Lymphocytes/100 WBC (Bld) 18.1 % Low 19-41 [facility] MCV (mean corpuscular volume ) determinationOrdered By: Marin Platt on 05-09-2024 MCV (RBC) [Entitic vol] 101.9 fL High 80-94 [facility] Manual differential comment Leno (Bld) [Interp]Ordered By: Marin Platt on 05-09-2024 Differential Comment Not Reportable [facility] Mean corpuscular hemoglobin (MCH) determinationOrdered By: Marin Platt on 05-09-2024 MCH (RBC) [Entitic mass] 35.6 pg High 27.0-32.0 [facility] Mean corpuscular hemoglobin concentration (MCHC) determinationOrdered By: Marin Platt on 05-09-2024 MCHC (RBC) [Mass/Vol] 34.9 g/dL 32-36 [facility] Mean platelet volume determi nationOrdered By: Marin Platt on 05-09-2024 Platelet mean volume (Bld) [Entitic vol] 9.2 fL 6.2-12.0 [facility] Microscopic analysis of urin e for red blood cells (RBC)Ordered By: Marin Platt on 05-09-2024 Urine RBC 0 SEEN /hpf 0-5 [facility] Monocyte percentageOrdered B y: Marin Platt on 05-09-2024 Monocytes/100 WBC (Bld) 8.3 % 0-10 [facility] Mucus LM Ql (Urine sed)Order ed By: Marin Platt on 05-09-2024 Mucus Ql (Urine sed) 0 SEEN /hpf [facility] Neutrophil percentageOrdered By: Marin Platt on 05-09-2024 Neutrophils/100 WBC (Bld) 71.0 % High 47-70 [facility] Nitrite Test strip Ql (U)Ord ered By: Marin Platt on 05-09-2024 Nitrite Ql (U) Negative Negative [facility] Nucleated red blood cell per centageOrdered By: Marin Platt on 05-09-2024 Nucleated RBC/100 WBC (Bld) [Ratio] 0 % 0-5 [facility] Platelet countOrdered By: Bandar Platt on 05-09-2024 Platelets (Bld) [#/Vol] 175 10*3/uL 150-450 [facility] Platelets LM Ql (Bld)Ordered By: Marin Platt on 05-09-2024 Platelet Estimate Not Reportable [facility] Potassium measurementOrdered By: Marin Platt on 05-09-2024 Potassium [Moles/Vol] 3.8 mmol/L 3.5-5.1 [facility] Protein Test strip Ql (U)Ord ered By: Marin Platt on 05-09-2024 Protein Ql (U) Negative Negative [facility] RBC Auto (Bld) [#/Vol]Ordere d By: Marin Platt on 05-09-2024 RBC (Bld) [#/Vol] 3.65 10*6/uL Low 4.6-6.2 [facility] Serum anion gap measurementO rdered By: Marin Platt on 05-09-2024 Anion gap [Moles/Vol] 10 mmol/L 5-15 [facility] Serum globulin measurementOr dered By: Marin Platt on 05-09-2024 Globulin (S) [Mass/Vol] 3.4 g/dL 2.2-4.2 [facility] Serum or plasma alanine anderson otransferase (ALT) measurementOrdered By: Marin Platt on 05-09-2024 ALT [Catalytic activity/Vol] 32 U/L 16-61 [facility] Serum or plasma albumin valentin urement (mass/volume)Ordered By: Marin Craft on 05-09-2024 Albumin [Mass/Vol] 4.3 g/dL 3.2-5.0 [facility] Serum or plasma alkaline herb sphatase measurementOrdered By: Marin Platt on 05-09-2024 ALP [Catalytic activity/Vol] 78 U/L 45-117 [facility] Serum or plasma calcium valentin urement (mass/volume)Ordered By: Marin Craft on 05-09-2024 Calcium [Mass/Vol] 9.6 mg/dL 8.5-10.1 [facility] Serum or plasma creatinine m easurement (mass/volume)Ordered By: Marin Craft on 05-09-2024 Creatinine [Mass/Vol] 1.03 mg/dL 0.70-1.30 [facility] Comment on above: The validity of the calculated GFR & GFRAA in patients over 70 years has not been determined. Clinical correlation is essential. Serum or plasma urea nitroge n measurement (mass/volume)Ordered By: Marin Platt on 05-09-2024 Urea nitrogen [Mass/Vol] 19 mg/dL High 7-18 [facility] Sodium levelOrdered By: Woo Platt on 05-09-2024 Sodium [Moles/Vol] 137 mmol/L 136-145 [facility] Total proteinOrdered By: Royce Pltat on 05-09-2024 Protein [Mass/Vol] 7.7 g/dL 6.4-8.2 [facility] Urinalysis, Completeon 05-09 BACTERIA 0 SEEN Normal None Seen [facility] Comment on above: Order Comment: CLEAN CATCH Performed By: #### L 400.0001 #### [facility] [address] [place], [address] EPI,SQUAMOUS 0 SEEN Normal 0-5 [facility] Comment on above: Order Comment: CLEAN CATCH Performed By: #### L 400.0001 #### [facility] [address] [place], [address] Mucus Ql (Urine sed) 0 SEEN Normal [facility] Comment on above: Order Comment: CLEAN CATCH Performed By: #### L 400.0001 #### [facility] [address] [place], [address] RBC 0 SEEN Normal 0-5 [facility] Comment on above: Order Comment: CLEAN CATCH Performed By: #### L 400.0001 #### [facility] [address] [place], [address] WBC 0 SEEN Normal 0-5 [facility] Comment on above: Order Comment: CLEAN CATCH Performed By: #### L 400.0001 #### [facility] [address] [place], [address] Urine blood detectionOrdered By: Marin Platt on 05-09-2024 Urine Occult Blood Negative Negative [facility] Urine clarityOrdered By: Royce Platt on 05-09-2024 Clarity (U) Clear Clear [facility] Urine color determinationOrd ered By: Marin Platt on 05-09-2024 Color (U) Straw Yellow [facility] Urine leukocyte esterase det ection by dipstickOrdered By: Marin Platt on 05-09-2024 Leukocyte esterase Test strip Ql (U) Negative Negative [facility] Urine pHOrdered By: Marin Brennan on 05-09-2024 pH (U) 6.0 [pH] 5.0 - 8.0 [facility] Urine sediment bacteria coun t by microscopy (number/high power field)Ordered By: Marin Platt on 05-09-2024 Bacteria LM.HPF (Urine sed) [#/Area] 0 /[HPF] None Seen [facility] Urine specific gravity measu rementOrdered By: Marin Platt on 05-09-2024 Specific gravity (U) [Rel density] 1.020 1.002-1.030 [facility] Urobilinogen Ql (U)Ordered B y: Marin Platt on 05-09-2024 Urine Urobilinogen Normal mg/dl Normal [facility] White blood cell (WBC) count Ordered By: Marin Platt on 05-09-2024 WBC (Bld) [#/Vol] 7.9 10*3/uL 4.4-11.0 [facility] White blood cell countOrdere d By: Marin Platt on 05-09-2024 Urine WBC 0 SEEN /hpf 0-5 [facility] CNPNon 04-24-2024 [facility] Telephone (INTMWS) -- ZACHARY SHORT ([id number]) 1945 M Date Time Provider Department 04/24/24 AILIN PIERSON INTMWS During your visit today, we recorded the following information about you: Mali Saenz LPN 04/24/2024 9:38 AM Signed Unable to complete PA electronically. Did complete via covermymeds ZACHARY SHORT ([place]: [id number]) JOSE F Rx #: [id number] Need Help? Call us at Status sent iconSent to Plan today Drug Ramelteon 8MG tablets ePA cloud logo Form [employer] Electronic Prior Authorization Request Form (2016 [place]PDP) Original Claim Info 569,MR IF LEVEL OF CARE CHANGE CALL HELP DESKCLOSED FORM. For RxLocal Coupon Manuel of: $58.34 submit to BIN: [id number] PCN: JAMI Group: COUPON --Service provided at no cost and no switch fee to the pharmacy-- Valeria MaliDUSTIN 04/25/2024 9:52 AM Signed [facility]'d [facility] from 04/23/24 until further notice. Pharmacy notified Allergies As of Date: 04/24/2024 (No Known Allergies) Date Reviewed: 04/23/2024 Reviewed by: Carley Khan MA - Fully Assessed Reason for Visit: Insurance Authorization [[id number]] Prescriptions as of 04/25/2024 - ramelteon (ROZEREM) 8 mg tablet Take 1 tablet by mouth daily at bedtime. - azelastine 0.1% nasal spray Use 1 [place] in each nostril two times a day. [...] Take 1 tablet by mouth twice weekly [id number], then decrease to 1 tablet weekly. - [...] Encounter Status:Closed by MALI SAENZ on 04/25/24 [facility] CNOVrosaura 04-23-2024 CNOV Office Visit (INTMWS ) -- ZACHARY SHORT ([id number]) 1945 M Date Time Provider Department 04/23/24 [...] shoulder, obesity, rosacea. Prostate cancer: High grade Whittier score of 7. NM study did not [...] NECK 07/17/2007 (more content not included)... Normal [facility] CBC panel Auto (Bld)on 04-19 Erythrocyte distribution width (RBC) [Ratio] 12.8 % Normal 11.5-15.0 [facility] Comment on above: Order Comment: Speci men Type: BLOOD SPECIMEN Ordering Facility: [facility] Address: [address] [place] [address] Performed By: #### 5 8410-2 #### [facility] CLIA [id number] [address] [place] [address] [place] Hematocrit (Bld) [Volume fraction] 44.2 % Normal 39.0-51.0 [facility] Comment on above: Order Comment: Speci men Type: BLOOD SPECIMEN Ordering Facility: [facility] Address: [address] [place] [address] Performed By: #### 5 8410-2 #### [facility] CLIA [id number] [address] [place] [address] [place] Hemoglobin (Bld) [Mass/Vol] 14.5 g/dL Normal 13.0-17.0 [facility] Comment on above: Order Comment: Speci men Type: BLOOD SPECIMEN Ordering Facility: [facility] Address: [address] [place] [address] Performed By: #### 5 8410-2 #### [facility] CLIA [id number] [address] [place] [address] [place] MCH (RBC) [Entitic mass] 34.5 pg High 26.0-34.0 [facility] Comment on above: Order Comment: Speci men Type: BLOOD SPECIMEN Ordering Facility: [facility] Address: [address] [place] [address] Performed By: #### 5 8410-2 #### [facility] CLIA [id number] [address] [place] [address] [place] MCHC (RBC) [Mass/Vol] 32.8 g/dL Normal 30.5-36.0 [facility] Comment on above: Order Comment: Speci men Type: BLOOD SPECIMEN Ordering Facility: [facility] Address: [address] [place] [address] Performed By: #### 5 8410-2 #### [facility] CLIA [id number] [address] [place] [address] [place] MCV (RBC) [Entitic vol] 105.2 fL High 80.0-100.0 [facility] Comment on above: Order Comment: Speci men Type: BLOOD SPECIMEN Ordering Facility: [facility] Address: [address] [place] [address] Performed By: #### 5 8410-2 #### [facility] CLIA [id number] [address] [place] [address] [place] Nucleated RBC (Bld) [#/Vol] 10*3/uL Normal <0.01 [facility] Comment on above: Order Comment: Speci men Type: BLOOD SPECIMEN Ordering Facility: [facility] Address: [address] [place] [address] Performed By: #### 5 8410-2 #### [facility] CLIA [id number] [address] [place] [address] [place] Platelet mean volume (Bld) [Entitic vol] 9.7 fL Normal 9.0-12.7 [facility] Comment on above: Order Comment: Speci men Type: BLOOD SPECIMEN Ordering Facility: [facility] Address: [address] [place] [address] Performed By: #### 5 8410-2 #### [facility] CLIA [id number] [address] [place] [address] [place] Platelets (Bld) [#/Vol] 221 10*3/uL Normal 150-400 [facility] Comment on above: Order Comment: Speci men Type: BLOOD SPECIMEN Ordering Facility: [facility] Address: [address] [place] [address] Performed By: #### 5 8410-2 #### [facility] CLIA [id number] [address] [place] [address] [place] RBC (Bld) [#/Vol] 4.20 10*6/uL Normal 4.20-6.00 [facility] Comment on above: Order Comment: Speci men Type: BLOOD SPECIMEN Ordering Facility: [facility] Address: [address] [place] [address] Performed By: #### 5 8410-2 #### [facility] CLIA [id number] [address] [place] [address] [place] WBC (Bld) [#/Vol] 9.77 10*3/uL Normal 3.70-11.00 [facility] Comment on above: Order Comment: Speci men Type: BLOOD SPECIMEN Ordering Facility: [facility] Address: [address] [place] [address] Performed By: #### 5 8410-2 #### [facility] CLIA [id number] [address] [place] [address] [place] Comprehensive metabolic 2000 panelon 04-19-2024 Albumin [Mass/Vol] 4.4 g/dL Normal 3.9-4.9 [facility] Comment on above: Order Comment: Speci men Type: URINE SPECIMEN Ordering Facility: [facility] Address: [address] [place] [address] Performed By: #### U A #### [facility] CLIA [id number] [address] [place] [address] [place] ALP [Catalytic activity/Vol] 86 U/L Normal 38-113 [facility] Comment on above: Order Comment: Speci men Type: URINE SPECIMEN Ordering Facility: [facility] Address: [address] [place] [address] Performed By: #### U A #### [facility] CLIA [id number] [address] [place] [address] [place] ALT [Catalytic activity/Vol] 20 U/L Normal 10-54 [facility] Comment on above: Order Comment: Speci men Type: URINE SPECIMEN Ordering Facility: [facility] Address: [address] [place] [address] Performed By: #### U A #### [facility] CLIA [id number] [address] [place] [address] [place] Anion gap [Moles/Vol] 12 mmol/L Normal 8-15 [facility] Comment on above: Order Comment: Speci men Type: URINE SPECIMEN Ordering Facility: [facility] Address: [address] [place] [address] Performed By: #### U A #### [facility] CLIA [id number] [address] [place] [address] [place] AST [Catalytic activity/Vol] 23 U/L Normal 14-40 [facility] Comment on above: Order Comment: Speci men Type: URINE SPECIMEN Ordering Facility: [facility] Address: [address] [place] [address] Performed By: #### U A #### [facility] CLIA [id number] [address] [place] [address] [place] Bilirubin [Mass/Vol] 0.5 mg/dL Normal 0.2-1.[address] [facility] Comment on above: Order Comment: Speci men Type: URINE SPECIMEN Ordering Facility: [facility] Address: [address] [place] [address] Performed By: #### U A #### [facility] CLIA [id number] [address] [place] [address] [place] Calcium [Mass/Vol] 9.6 mg/dL Normal 8.5-10.2 [facility] Comment on above: Order Comment: Speci men Type: URINE SPECIMEN Ordering Facility: [facility] Address: [address] [place] [address] Performed By: #### U A #### [facility] CLIA [id number] [address] [place] [address] [place] Chloride [Moles/Vol] 99 mmol/L Normal 98-[address] [facility] Comment on above: Order Comment: Speci men Type: URINE SPECIMEN Ordering Facility: [facility] Address: [address] [place] [address] Performed By: #### U A #### [facility] CLIA [id number] [address] [place] [address] [place] CO2 [Moles/Vol] 26 mmol/L Normal 22-30 [facility] Comment on above: Order Comment: Speci men Type: URINE SPECIMEN Ordering Facility: [facility] Address: [address] [place] [address] Performed By: #### U A #### [facility] CLIA [id number] [address] [place] [address] [place] Creatinine [Mass/Vol] 0.98 mg/dL Normal 0.73-1.22 [facility] Comment on above: Order Comment: Speci men Type: URINE SPECIMEN Ordering Facility: [facility] Address: [address] [place] [address] Performed By: #### U A #### [facility] CLIA [id number] [address] [place] [address] [place] Creatinine and Glomerular filtration rate.predicted panel (S/P/Bld) 78 mL/min/1.73m??? Normal >=60 [facility] Comment on above: Order Comment: Speci men Type: URINE SPECIMEN Ordering Facility: [facility] Address: [address] [place] [address] Result Comment: Ekaterina mated Glomerular Filtration Rate [...] GFR. Performed By: #### U A #### [facility] CLIA [id number] [address] [place] [address] [place] Glucose [Mass/Vol] 104 mg/dL High 74-99 [facility] Comment on above: Order Comment: Speci men Type: URINE SPECIMEN Ordering Facility: [facility] Address: [address] [place] [address] Result Comment: The [place] [employer] (ADA) provides guidance for cutoff [...] Standards of Medical Care in Diabetes 2016, [place] [employer]. Diabetes Care. 2016.39(Suppl 1). Performed By: #### U A #### [facility] CLIA [id number] [address] [place] [address] [place] Potassium [Moles/Vol] 4.2 mmol/L Normal 3.7-5.1 [facility] Comment on above: Order Comment: Speci men Type: URINE SPECIMEN Ordering Facility: [facility] Address: [address] [place] [address] Performed By: #### U A #### [facility] CLIA [id number] [address] [place] [address] [place] Protein [Mass/Vol] 8.1 g/dL High 6.3-8.0 [facility] Comment on above: Order Comment: Speci men Type: URINE SPECIMEN Ordering Facility: [facility] Address: [address] [place], [place] [address] Performed By: #### U A #### [facility] CLIA [id number] [address] [place] [address] [place] Sodium [Moles/Vol] 137 mmol/L Normal 136-144 [facility] Comment on above: Order Comment: Speci men Type: URINE SPECIMEN Ordering Facility: [facility] Address: [address] [place] [address] Performed By: #### U A #### [facility] CLIA [id number] [address] [place] [address] [place] Urea nitrogen [Mass/Vol] 15 mg/dL Normal 9-24 [facility] Comment on above: Order Comment: Speci men Type: URINE SPECIMEN Ordering Facility: [facility] Address: [address] [place] [address] Performed By: #### U A #### [facility] CLIA [id number] [address] [place] [address] [place] Lipid 1996 panelon 4 Cholesterol [Mass/Vol] 193 mg/dL Normal <200 [facility] Comment on above: Order Comment: Speci men Type: URINE SPECIMEN Ordering Facility: [facility] Address: [address] [place] [address] Result Comment: <200 mg/dL, Desirable 200-239 mg/dL, Borderline high >239 mg/dL, High Performed By: #### U A #### [facility] CLIA [id number] [address] [place] [address] [place] Cholesterol in HDL [Mass/Vol] 55 mg/dL Normal >39 [facility] Comment on above: Order Comment: Speci men Type: URINE SPECIMEN Ordering Facility: [facility] Address: [address] [place] [address] Result Comment: 40-5 9 mg/dL, Acceptable >59 mg/dL, High: Negative risk factor for coronary heart disease <40 mg/dL, Low: Positive risk factor for coronary heart disease Performed By: #### U A #### [facility] CLIA [id number] [address] [place] [address] [place] Cholesterol in LDL [Mass/Vol] 123 mg/dL High <100 [facility] Comment on above: Order Comment: Speci men Type: URINE SPECIMEN Ordering Facility: [facility] Address: [address] [place] [address] Result Comment: <100 mg/dL, Optimal 100-129 mg/dL, Near optimal/above optimal 130-159 mg/dL, Borderline high 160-189 mg/dL, High >189 mg/dL, Very high Secondary prevention optimal LDL Cholesterol levels are recommended to be < 70 mg/dL Performed By: #### U A #### [facility] CLIA [id number] [address] [place] [address] [place] Cholesterol in LDL/Cholesterol in HDL [Mass ratio] 2.24 {ratio} Normal <2.54 [facility] Comment on above: Order Comment: Speci men Type: URINE SPECIMEN Ordering Facility: [facility] Address: [address] [place] [address] Result Comment: Refe rence: 1. National Cholesterol Education Program ATP III Guideline At-A-Glance Quick Desk Reference: National Heart, Lung, and Blood [place]. National Institutes of Health. 2001: NIH Publication No. 01-3305. 2. An International Atherosclerosis Society position paper: global recommendations for the management of dyslipidemia: executive summary, Atherosclerosis. 2014: 232(2):410-413. Performed By: #### U A #### [facility] CLIA [id number] [address] [place] [address] [place] Cholesterol in VLDL [Mass/Vol] 15 mg/dL Normal <30 [facility] Comment on above: Order Comment: Speci men Type: URINE SPECIMEN Ordering Facility: [facility] Address: [address] [place] [address] Performed By: #### U A #### [facility] CLIA [id number] [address] [place] [address] [place] Cholesterol non HDL [Mass/Vol] 138 mg/dL High <130 [facility] Comment on above: Order Comment: Speci men Type: URINE SPECIMEN Ordering Facility: [facility] Address: [address] [place] [address] Result Comment: <130 mg/dL, Optimal 130-159 mg/dL, Near optimal/above optimal 160-189 mg/dL, Borderline high 190-219 mg/dL, High >219 mg/dL, Very high Secondary prevention optimal non HDL Cholesterol levels are recommended to be <100 mg/dL Performed By: #### U A #### [facility] CLIA [id number] [address] [place] [address] [place] Cholesterol.total/Chol esterol in HDL [Mass ratio] 3.51 {ratio} Normal <5.10 [facility] Comment on above: Order Comment: Speci men Type: URINE SPECIMEN Ordering Facility: [facility] Address: [address] [place] [address] Performed By: #### U A #### [facility] CLIA [id number] [address] [place] [address] [place] FASTING TIME 12 hrs Normal [facility] Comment on above: Order Comment: Speci men Type: URINE SPECIMEN Ordering Facility: [facility] Address: [address] [place] [address] Performed By: #### U A #### [facility] CLIA [id number] [address] [place] [address] [place] Triglyceride [Mass/Vol] 73 mg/dL Normal <150 [facility] Comment on above: Order Comment: Speci men Type: URINE SPECIMEN Ordering Facility: [facility] Address: [address] [place] [address] Result Comment: <150 mg/dL, Normal 150-199 mg/dL, Borderline high 200-499 mg/dL, High >499 mg/dL, Very high Performed By: #### U A #### [facility] CLIA [id number] [address] [place] [address] [place] CNPMelisa 04-16-2024 [facility] HANZACHARY Jana ([id number]) 1945 M Date Time Provider Department 04/16/24 [...] [I10] Order(s):LIPID PANEL BASIC [SQLIPB] Order #: [id number] FUTURE COMPREHENSIVE METABOLIC PANEL [SQCMP] Order #: [id number] FUTURE COMPLETE BLOOD COUNT [SQCBC] Order #: [id number] FUTURE Prescriptions as of 04/17/2024 - lisinopril-hydroCHLOROthia zide (ZESTORETIC) 10-12.5 mg per tablet Take 1 tablet by mouth once daily. - tamsulosin (FLOMAX) 0.4 mg Take 1 capsule by mouth daily at bedtime. - ergocalciferol 50,000 unit capsule (VITAMIN D2, DRISDOL) Take 1 capsule by mouth two times a week. TO BE TAKEN ORALLY DIRECTED. Take 1 tablet by mouth twice weekly [id number], then decrease to 1 tablet weekly. - [...] Encounter Status:Closed by FLORENCE GOLDBERG on 04/16/24 [facility] Jluis 01-11-2024 CNPN Telephone (RADTWS) -- ZACHARY SHORT ([id number]) 1945 M Date Time Provider Department 01/11/24 [...] Fully Assessed Reason for Visit: Patient Update [3844] Cmt: Re:radiation treatment Prescriptions as of 01/11/2024 - ergocalciferol 50,000 unit capsule (VITAMIN D2, DRISDOL) Take 1 capsule by mouth two times a week. TO BE TAKEN ORALLY DIRECTED. Take 1 tablet by mouth twice weekly [id number], then decrease to 1 tablet weekly. - [...] Encounter Status:Closed by MALI FERNÁNDEZ on 01/11/24 [facility] (UROLMD) -- ZACHARY SHORT ([id number]) 1945 M Date Time Provider Department 01/10/24 [...] - azelastine 0.1% nasal spray Use 1 [place] in each nostril two times a day. - lisinopril-hydroCHLOROthia zide (ZESTORETIC) 10-12.5 mg per tablet Take 1 tablet by mouth once daily. - ergocalciferol 50,000 unit capsule (VITAMIN D2, DRISDOL) Take 1 capsule by mouth two times a week. TO BE TAKEN ORALLY DIRECTED. Take 1 tablet by mouth twice weekly [id number], then decrease to 1 tablet weekly. - [...] Encounter Status:Closed by DESTINEE CLOUD on 01/01/25 [facility] Whole body Bone Viewson 0 12-09-2023 IMPRESSION: * No evident osteoblastic metastases. * Degenerative changes as described above Managed Care Provider: PSCB Transcribe Date/Time: Dec 09 2023 2:38P Dictated by : KIRAN HOLT MD This examination was interpreted and the report reviewed and electronically signed by: MAE FRANCIS MD on Dec 09 2023 3:03PM [facility] * * *Final Report* * * DATE OF EXAM: Dec 09 2023 1:00PM FELICITA 0014 - SC BONE WHOLE BODY / PROCEDURE REASON: [id number] cancer (HCC) * * * * Physician [...] Limitations: Aspects of the arms not in purzw-[id number] and cannot be assessed. Bones: * No suspicious areas of tracer uptake. * Areas of increased uptake likely related to degenerative changes including risks, shoulders, thoracolumbar spine, hips, knees, ankles/feet. Urinary tract: Physiologic activity confirmed. [facility] Provider, [facility] - 12/09/2023 * * *Final Report* * * DATE OF EXAM: Dec 09 2023 1:00PM FELICITA Oliva4 - NM BONE WHOLE BODY / PROCEDURE REASON: [id number] cancer (HCC) * * * * Physician [...] Limitations: Aspects of the arms not in klvof-jw-yfqk and cannot be assessed. Bones: * No suspicious areas of tracer uptake. * Areas of increased uptake likely related to degenerative changes including risks, shoulders, thoracolumbar spine, hips, knees, ankles/feet. Urinary tract: Physiologic activity confirmed. IMPRESSION IMPRESSION: * No evident osteoblastic metastases. * Degenerative changes as described above Managed Care Provider: ROCÍO Transcribe Date/Time: Dec 09 2023 2:38P Dictated by : KIRAN HOLT MD This examination was interpreted and the report reviewed and electronically signed by: MAE FRANCIS MD on Dec 09 2023 3:03PM EST [facility] Radiology Study observation (narrative) [facility] Whole body Bone ViewsOrde red By: Ccf Provider on 12-09-2023 [facility] UA DIP, URINE (POC)on 2023 BILIRUBIN UA (POCT) Negative Negative [facility] CLARITY UA (POCT) Clear [facility] COLOR UA (POCT) Yellow [facility] GLUCOSE UA (POCT) Negative Negative mg/dL [facility] Hemoglobin Ql (U) Negative Negative [facility] KETONE UA (POCT) Negative Negative mg/dL [facility] LEUKOCYTES UA (POCT) Negative [facility] NITRITE [facility]A (POCT) Negative Negative [facility] PH UA (POCT) 5.5 4.5 - 8.0 [facility] Protein Ql (U) Negative Negative mg/dL [facility] SPECIFIC GRAVITY UA (POCT) 1.010 1.005 - 1.030 [facility] UROBILINOGEN UA (POCT) 0.2 Ivory l E.U./dL [facility] Location:[facility], [address] [place] [address], [place], [address] [facility] POINT OF CARE [facility] UA DIP, URINE (POC)on 2022 BILIRUBIN UA (POCT) Negative Negative [facility] CLARITY UA (POCT) Clear [facility] COLOR UA (POCT) Yellow [facility] GLUCOSE UA (POCT) Negative Negative mg/dL [facility] Hemoglobin Ql (U) Negative Negative [facility] KETONE UA (POCT) Negative Negative mg/dL [facility] LEUKOCYTES UA (POCT) Negative [facility] NITRITE UA (POCT) Negative Negative [facility] PH UA (POCT) 5.5 4.5 - 8.0 [facility] Protein Ql (U) Negative Negative mg/dL [facility] SPECIFIC GRAVITY UA (POCT) 1.020 1.005 - 1.030 [facility] UROBILINOGEN UA (POCT) 0.2 E.U./dL Ivory l E.U./dL [facility] US PROSTATE BIOPSY (POC) GUK I USE ONLYon 04-19-2023 [facility] UA DIP, URINE (POC)on 2022 BILIRUBIN UA (POCT) Negative Negative [facility] CLARITY UA (POCT) Slightly Cloudy Cl [facility] COLOR UA (POCT) Light [facility] GLUCOSE UA (POCT) Negative Negative mg/dL [facility] Hemoglobin Ql (U) Negative Negative [facility] KETONE UA (POCT) Negative Negative mg/dL [facility] LEUKOCYTES UA (POCT) Negative Negative [facility] NITRITE UA (POCT) Negative Negative [facility] PH UA (POCT) 6.5 4.5 - 8.0 [facility] Protein Ql (U) Negative Negative mg/dL [facility] SPECIFIC GRAVITY UA (POCT) 1.015 1.005 - 1.030 [facility] UROBILINOGEN UA (POCT) 0.2 E.U./dL Ivory l E.U./dL [facility] PROGRESSon 12-08-2017 [facility] NOTES [facility] PROGRESSon 09-01-2017 [facility] NOTES Normal [facility] CBCon 08-10-2017 ABSOLUTE BAS 0.0 X10 Normal [facility] Comment on above: Performed By: #### C HEM7F ACBC ####Testing performed at [address] [address] ABSOLUTE EOS 0.00 X10 Normal [facility] Comment on above: Performed By: #### C HEM7F ACBC ####Testing performed at [address] [address] ABSOLUTE NEUTROPHIL COUNT 12.4 x10 High 1.0-7.0 [facility] Comment on above: Performed By: #### C HEM7F ACBC ####Testing performed at [address] [place] [address] Basophils/100 WBC Auto (Bld) 0.0 % Normal 0.0-2.0 [facility] Comment on above: Performed By: #### C HEM7F ACBC ####Testing performed at [address] [place] [address] DTYPE AUTO DIFF Normal [facility] Comment on above: Performed By: #### C HEM7F ACBC ####Testing performed at [address] [address] Eosinophils/100 leukocytes 0.0 % Normal 0.0-11.0 [facility] Comment on above: Performed By: #### C HEM7F ACBC ####Testing performed at [address] [address] Lymphocytes 1.20 X10 Normal [facility] Comment on above: Performed By: #### C HEM7F ACBC ####Testing performed at [address] [address] Lymphocytes/100 leukocytes 8.0 % Low 20.0-55.0 [facility] Comment on above: Performed By: #### C HEM7F ACBC ####Testing performed at [address] [address] Monocytes 0.9 X10 Normal [facility] Comment on above: Performed By: #### C HEM7F ACBC ####Testing performed at [address] [address] Monocytes/100 leukocytes 6.2 % Normal 0.0-10.0 [facility] Comment on above: Performed By: #### C HEM7F, ACBC ####Testing performed at [address] [address] Neutrophils/100 leukocytes 85.8 % High 37.0-75.0 [facility] Comment on above: Performed By: #### C HEM7F, ACBC ####Testing performed at [address] [address] Erythrocyte distribution width Auto Ratio (RBC) 13.4 % Normal 11.5-14.5 [facility] Comment on above: Performed By: #### C HEM7F, ACBC ####Testing performed at [address] [address] Erythrocytes (RBC) 3.43 /cmm Low 4.0-6.1 [facility] Comment on above: Performed By: #### C HEM7F, ACBC ####Testing performed at [address] [address] Hematocrit (HCT) 35.0 % Low 42.0-52.0 [facility] Comment on above: Performed By: #### C HEM7F, ACBC ####Testing performed at [address] [address] Hemoglobin mass conc (Bld) 12.0 g/dL Low 14.0-18.0 [facility] Comment on above: Performed By: #### C HEM7F, ACBC ####Testing performed at [address] [address] MCH 35.1 pg High 26.0-35.0 [facility] Comment on above: Performed By: #### C HEM7F, ACBC ####Testing performed at [address] [address] MCHC mass conc (RBC) 34.4 g/dL Normal 27.0-37.0 [facility] Comment on above: Performed By: #### C HEM7F, ACBC ####Testing performed at [place] [id number] MCV 102.0 fL High 80.0-100.0 [facility] Comment on above: Performed By: #### C HEM7LULÚ Jack ####Testing performed at [place] [id number] Platelet mean volume (PMV) 7.4 fL Normal 7.4-11.0 [facility] Comment on above: Performed By: #### C HEM7FLULÚ ####Testing performed at [place] [id number] Platelets 164 /cmm Normal 130.0-400.0 [facility] Comment on above: Performed By: #### C HEM7FLULÚ ####[place] [address] WBC (Leukocytes) 14.5 /cmm High 3.6-11.0 [facility] Comment on above: Performed By: #### C HEM7FLULÚ ####[place] [address] CHEM 7 FASTINGon 08-10-2017 BUN (urea nitrogen) 22 mg/dL High 7-20 [facility] Comment on above: Performed By: #### C HEM7LULÚ Jack ####Testing performed at [place] [id number] Creatinine 0.8 mg/dL Normal 0.66-1.25 [facility] Comment on above: Performed By: #### C HEM7FLULÚ ####Testing performed at [place] [address] eGFR (non-black) Average GFR for 70+ years old = 75. Normal [facility] Comment on above: Result Comment: Operations Manager merna Kidney disease, GFR = <60.Kidney failure, GFR = <15.The GFR estimate is not adjusted for extreme body surface area or acute process, nor has it been validated for women or ethnic groups other than and . Performed By: #### C HEM7F ACHUNTER ####[place] [address] EST. GFR, >60 Normal [facility] Comment on above: Performed By: #### C HEM7F, ACBC ####Testing performed at [address] [address] EST. GFR,Non >60 Normal [facility] Comment on above: Performed By: #### C HEM7F, ACBC ####Testing performed at [address] [address] Chloride 108 mmol/L High 98-107 [facility] Comment on above: Performed By: #### C HEM7F, ACBC ####Testing performed at [address] [address] CO2 24 mmol/L Normal 22-30 [facility] Comment on above: Performed By: #### C HEM7F, ACBC ####Testing performed at [address] [address] Glucose mass conc 141 mg/dL High 70-100 [facility] Comment on above: Result Comment: NORM AL <100 mg/dLPREDIABETES 101-126 mg/dLDIABETES 126 mg/dL or higher Performed By: #### C HEM7F, ACBC ####Testing performed at [address] [address] Potassium molar conc 4.4 mmol/L Normal 3.5-5.1 [facility] Comment on above: Performed By: #### C HEM7F, ACBC ####Testing performed at [address] [address] Sodium 139 mmol/L Normal 137-145 [facility] Comment on above: Performed By: #### C HEM7F, ACBC ####Testing performed at [address] [address] DISCH SUMMon 08-10-2017 [facility] NOTES Normal [facility] NURSING NOTEon 08-10-2017 [facility] NOTES Normal [facility] NOT[facility] Normal [facility] NOT[facility] PROGRESSon 08-10-2017 [facility] NOTES Normal [facility] NOT[facility] Normal [facility] NOT[facility] Normal [facility] NOT[facility] Normal [facility] CBCon 08-09-2017 ABSOLUTE BAS 0.0 X10 Normal [facility] Comment on above: Performed By: #### A CBC ####Testing performed at [address] [place] [address] ABSOLUTE EOS 0.00 X10 Normal [facility] Comment on above: Performed By: #### A CBC ####Testing performed at [address] [place] [address] ABSOLUTE NEUTROPHIL COUNT 10.4 x10 High 1.0-7.0 [facility] Comment on above: Performed By: #### A CBC ####Testing performed at [address] [place] [address] Basophils/100 WBC Auto (Bld) 0.1 % Normal 0.0-2.0 [facility] Comment on above: Performed By: #### A CBC ####Testing performed at [address] [place] [address] DTYPE AUTO DIFF Normal [facility] Comment on above: Performed By: #### A CBC ####Testing performed at [address] [place] [address] Eosinophils/100 leukocytes 0.0 % Normal 0.0-11.0 [facility] Comment on above: Performed By: #### A CBC ####Testing performed at [address] [place] [address] Lymphocytes 1.20 X10 Normal [facility] Comment on above: Performed By: #### A CBC ####Testing performed at [address] [place] [address] Lymphocytes/100 leukocytes 9.7 % Low 20.0-55.0 [facility] Comment on above: Performed By: #### A CBC ####Testing performed at [address] [place] [address] Monocytes 0.6 X10 Normal [facility] Comment on above: Performed By: #### A CBC ####Testing performed at [address] [place] [address] Monocytes/100 leukocytes 4.7 % Normal 0.0-10.0 [facility] Comment on above: Performed By: #### A CBC ####Testing performed at [place] [address] Neutrophils/100 leukocytes 85.5 % High 37.0-75.0 [facility] Comment on above: Performed By: #### A CBC ####Testing performed at [place] [address] Erythrocyte distribution width Auto Ratio (RBC) 13.1 % Normal 11.5-14.5 [facility] Comment on above: Performed By: #### A CBC ####[place] [address] Erythrocytes (RBC) 3.66 /cmm Low 4.0-6.1 [facility] Comment on above: Performed By: #### A CBC ####[place] [address] Hematocrit (HCT) 37.0 % Low 42.0-52.0 [facility] Comment on above: Performed By: #### A CBC ####[place] [address] Hemoglobin mass conc (Bld) 12.8 g/dL Low 14.0-18.0 [facility] Comment on above: Performed By: #### A CBC ####Testing performed at [place] [id number] MCH 35.0 pg Normal 26.0-35.0 [facility] Comment on above: Performed By: #### A CBC ####Testing performed at [place] [address] MCHC mass conc (RBC) 34.7 g/dL Normal 27.0-37.0 [facility] Comment on above: Performed By: #### A CBC ####Testing performed at [place] [address] MCV 101.0 fL High 80.0-100.0 [facility] Comment on above: Performed By: #### A CBC ####Testing performed at [place] [id number] Platelet mean volume (PMV) 7.5 fL Normal 7.4-11.0 [facility] Comment on above: Performed By: #### A CBC ####Testing performed at [place] [address] Platelets 172 /cmm Normal 130.0-400.0 [facility] Comment on above: Performed By: #### A CBC ####Testing performed at [place] [address] WBC (Leukocytes) 12.1 /cmm High 3.6-11.0 [facility] Comment on above: Performed By: #### A CBC ####[place] [address] CHEM 7 FASTINGon 08-09-2017 BUN (urea nitrogen) 17 mg/dL Normal 7-20 [facility] Comment on above: Performed By: #### M G, CHEM7F ####[place] [address] Creatinine 0.9 mg/dL Normal 0.66-1.25 [facility] Comment on above: Performed By: #### M G, CHEM7F ####[place] [address] eGFR (non-black) Average GFR for 70+ years old = 75. Normal [facility] Comment on above: Result Comment: Operations Manager merna Kidney disease, GFR = <60.Kidney failure, GFR = <15.The GFR estimate is not adjusted for extreme body surface area or acute process, nor has it been validated for women or ethnic groups other than and . Performed By: #### M G, CHEM7F ####Testing performed at [place] [id number] EST. GFR, >60 Normal [facility] Comment on above: Performed By: #### M G, CHEM7F ####Testing performed at [place] [id number] EST. GFR,Non >60 Normal [facility] Comment on above: Performed By: #### M G, CHEM7F ####[place] [address] Chloride 106 mmol/L Normal 98-107 [facility] Comment on above: Performed By: #### M G, CHEM7F ####Testing performed at [address] [address] CO2 22 mmol/L Normal 22-30 [facility] Comment on above: Performed By: #### M G, CHEM7F ####Testing performed at [address] [address] Glucose mass conc 133 mg/dL High 70-100 [facility] Comment on above: Result Comment: NORM AL <100 mg/dLPREDIABETES 101-126 mg/dLDIABETES 126 mg/dL or higher Performed By: #### M G, CHEM7F ####Testing performed at [address] [address] Potassium molar conc 4.0 mmol/L Normal 3.5-5.1 [facility] Comment on above: Performed By: #### M Kimberly, CHEM7F ####Testing performed at [address] [address] Sodium 137 mmol/L Normal 137-145 [facility] Comment on above: Performed By: #### Gildardo Harris, CHEM7F ####Testing performed at [address] [address] Certificatioon 08-09-2017 [facility] CAC NOTES Normal [facility] MAGNESIUMon 08-09-2017 Magnesium 1.9 mg/dL Normal 1.6-2.3 [facility] Comment on above: Performed By: #### M G, CHEM7F ####Testing performed at [address] [address] NURSING NOTEon 08-09-2017 [facility] NOTES Normal [facility] NOT[facility] Normal [facility] NOT[facility] Normal [facility] NOT[facility] Normal [facility] NOT[facility] Normal [facility] NOT[facility] Normal [facility] NOT[facility] Normal [facility] PLAN OF CAREon 08-09-2017 [facility] NOTES Normal [facility] PROGRESSon 08-09-2017 [facility] NOTES Normal [facility] NOT[facility] Normal [facility] NOT[facility] Normal [facility] NOT[facility] Normal [facility] NOT[facility] Normal [facility] XR KNEE LEFT 2 VIEWSon 08-09 XR KNEE LEFT 2 VIEWS Knee, 08/08/2017 4:2 8 PMIndication:tkaComparison :05/11/2017.FINDINGS/IMPRE SSION:AP and lateral views of the left knee were obtained. There are findings consistent with recent left total knee arthroplasty, with hardware in good alignment and position. Immediate postsurgical changes within the regional soft tissues are noted. No complications are evident. Normal [facility] Anes Post-opon 08-08-2017 [facility] NOTES Normal [facility] Anes Pre-opon 08-08-2017 [facility] NOTES Normal [facility] BRIEF OP NOTon 08-08-2017 [facility] NOTES Normal [facility] CONSULTon 08-08-2017 [facility] NOTES Normal [facility] MRSA SCREENon 08-08-2017 MRSA SCREEN Negative [facility] Comment on above: Performed By: #### M RSAST ####[place] [address] STAPH AUREUS SCREEN Negative [facility] Comment on above: Result Comment: TEST ING PERFORMED BY PCR Performed By: #### M RSAST ####[place] [address] NURSING NOTEon 08-08-2017 [facility] NOTES Normal [facility] NOT[facility] Normal [facility] NOT[facility] Normal [facility] NOT[facility] Normal [facility] OP NOTEon 08-08-2017 [facility] NOTES Normal [facility] OR NURSINGon 08-08-2017 [facility] CAC NOTES [facility] PLAN OF CAREon 08-08-2017 [facility] NOTES Normal [facility] PROGRESSon 08-08-2017 [facility] NOTES Normal [facility] NOT[facility] Normal [facility] [facility]RHon 08-08-2017 REPEAT ABO/RH Positive [facility] Comment on above: Performed By: #### R ABRH ####Testing performed at [place] [id number] BMP FASTINGon 07-21-2017 BUN (urea nitrogen) 22 mg/dL High 7-20 [facility] Comment on above: Performed By: #### B MPF, PT, ACBC ####Testing performed at [place] [id number] Creatinine 0.9 mg/dL Normal 0.66-1.25 [facility] Comment on above: Performed By: #### B MPF, PT, ACBC ####Testing performed at [address] [address] eGFR (non-black) Average GFR for 70+ years old = 75. Normal [facility] Comment on above: Result Comment: Operations Manager merna Kidney disease, GFR = <60.Kidney failure, GFR = <15.The GFR estimate is not adjusted for extreme body surface area or acute process, nor has it been validated for women or ethnic groups other than and . Performed By: #### B MPF, PT, ACBC ####Testing performed at [place] [id number] EST. GFR, >60 Normal [facility] Comment on above: Performed By: #### B MPF, PT, ACBC ####Testing performed at [place] [id number] EST. GFR,Non >60 Normal [facility] Comment on above: Performed By: #### B MPF, PT, ACBC ####Testing performed at [place] [id number] Anion gap 11 mmol/L Normal 8-16 [facility] Comment on above: Performed By: #### B MPF, PT, ACBC ####Testing performed at [place] [id number] Calcium 9.9 mg/dL Normal 8.4-10.2 [facility] Comment on above: Performed By: #### B MPF, PT, ACBC ####Testing performed at [place] [id number] Chloride 102 mmol/L Normal 98-107 [facility] Comment on above: Performed By: #### B MPF, PT, ACBC ####Testing performed at [place] [id number] CO2 24 mmol/L Normal 22-30 [facility] Comment on above: Performed By: #### B MPF, PT, ACBC ####Testing performed at [address] [address] Glucose mass conc 99 mg/dL Normal 70-100 [facility] Comment on above: Result Comment: NORM AL <100 mg/dLPREDIABETES 101-126 mg/dLDIABETES 126 mg/dL or higher Performed By: #### B MPF, PT, ACBC ####Testing performed at [address] [address] Potassium molar conc 4.4 mmol/L Normal 3.5-5.1 [facility] Comment on above: Performed By: #### B MPF, PT, ACBC ####Testing performed at [address] [address] Sodium 137 mmol/L Normal 137-145 [facility] Comment on above: Performed By: #### B MPF, PT, ACBC ####Testing performed at [address] [address] CBCon 07-21-2017 ABSOLUTE BAS 0.1 X10 Normal [facility] Comment on above: Performed By: #### B MPF, PT, ACBC ####Testing performed at [address] [address] ABSOLUTE EOS 0.20 X10 Normal [facility] Comment on above: Performed By: #### B MPF, PT, ACBC ####Testing performed at [address] [address] ABSOLUTE NEUTROPHIL COUNT 5.0 x10 Normal 1.0-7.0 [facility] Comment on above: Performed By: #### B MPF, PT, ACBC ####Testing performed at [address] [address] Basophils/100 WBC Auto (Bld) 0.8 % Normal 0.0-2.0 [facility] Comment on above: Performed By: #### B MPF, PT, ACBC ####Testing performed at [address] [address] DTYPE AUTO DIFF Normal [facility] Comment on above: Performed By: #### B MPF, PT, ACBC ####Testing performed at [address] [address] Eosinophils/100 leukocytes 2.8 % Normal 0.0-11.0 [facility] Comment on above: Performed By: #### B MPF, PT, ACBC ####Testing performed at [address] [address] Lymphocytes 2.30 X10 Normal [facility] Comment on above: Performed By: #### B MPF, PT, ACBC ####Testing performed at [address] [address] Lymphocytes/100 leukocytes 27.5 % Normal 20.0-55.0 [facility] Comment on above: Performed By: #### B MPF, PT, ACBC ####Testing performed at [address] [address] Monocytes 0.9 X10 Normal [facility] Comment on above: Performed By: #### B MPF, PT, ACBC ####Testing performed at [address] [address] Monocytes/100 leukocytes 10.3 % High 0.0-10.0 [facility] Comment on above: Performed By: #### B MPF, PT, ACBC ####Testing performed at [address] [address] Neutrophils/100 leukocytes 58.6 % Normal 37.0-75.0 [facility] Comment on above: Performed By: #### B MPF, PT, ACBC ####Testing performed at [address] [address] Erythrocyte distribution width Auto Ratio (RBC) 13.3 % Normal 11.5-14.5 [facility] Comment on above: Performed By: #### B MPF, PT, ACBC ####Testing performed at [address] [address] Erythrocytes (RBC) 4.21 /cmm Normal 4.0-6.1 [facility] Comment on above: Performed By: #### B MPF, PT, ACBC ####Testing performed at [address] [address] Hematocrit (HCT) 42.4 % Normal 42.0-52.0 [facility] Comment on above: Performed By: #### B MPF, PT, ACBC ####Testing performed at [place] [id number] Hemoglobin mass conc (Bld) 15.0 g/dL Normal 14.0-18.0 [facility] Comment on above: Performed By: #### B MPF, PT, ACBC ####Testing performed at [place] [id number] MCH 35.7 pg High 26.0-35.0 [facility] Comment on above: Performed By: #### B MPF, PT, ACBC ####[place] [address] MCHC mass conc (RBC) 35.5 g/dL Normal 27.0-37.0 [facility] Comment on above: Performed By: #### B MPF, PT, ACBC ####Testing performed at [place] [id number] MCV 100.7 fL High 80.0-100.0 [facility] Comment on above: Performed By: #### B MPF, PT, ACBC ####[place] [address] Platelet mean volume (PMV) 7.4 fL Normal 7.4-11.0 [facility] Comment on above: Performed By: #### B MPF, PT, ACBC ####Testing performed at [place] [id number] Platelets 187 /cmm Normal 130.0-400.0 [facility] Comment on above: Performed By: #### B MPF, PT, ACBC ####Testing performed at [address] [address] WBC (Leukocytes) 8.5 /cmm Normal 3.6-11.0 [facility] Comment on above: Performed By: #### B MPF, PT, ACBC ####Testing performed at [address] [address] HEMOGLOBIN A1Con 07-21-2017 Glucose mass conc 108 mg/dL Normal [facility] Comment on above: Performed By: #### H A1CT ####[place] [address] Hemoglobin A1c/Hemoglobin.total mass fraction (Bld) 5.4 % Normal <6 [facility] Comment on above: Result Comment: NORM AL <5.7%PREDIABETES 5.7-6.4%DIABETES 6.5% OR HIGHER Performed By: #### H A1CT ####[place] [address] MRSA SCREENon 07-21-2017 MRSA SCREEN Negative Normal [facility] Comment on above: Performed By: #### M RSAST ####[place] [address] STAPH AUREUS SCREEN Positive [facility] Comment on above: Result Comment: TEST ING PERFORMED BY PCR Performed By: #### M RSAST ####[place] [address] PROGRESSon 07-21-2017 [facility] NOTES Normal [facility] PROTIMEon 07-21-2017 INR Coag RelTime (PPP) 1.04 {INR} Normal 0.88-1.12 [facility] Comment on above: Result Comment: 2.0- 3.0 THERAPEUTIC RANGE2.5-3.5 PROSTHETIC VALVE RANGE Performed By: #### B MPF, PT, ACBC ####[place] [address] Prothrombin time (PT) Coag time (PPP) 13.5 s Normal 11.6-14.0 [facility] Comment on above: Performed By: #### B MPF, PT, ACBC ####[place] [address] TYPE AND SCREEN CROSSMATCH C ONVERTIBLEon 07-21-2017 TYPE AND SCREEN CROSSMATCH CONVERTIBLE UNITS ORDERED 0 WORKUP EXPIRES 08/11/2017 ABO/RH(D) A POSITIVE ANTIBODY SCREEN NEGATIVE ARM BAND NUMBER [id number] Normal [facility] Comment on above: Performed By: #### T SCC ####[place] [address] URINE MACROSCOPICon 07-21-19 18 Bilirubin Ql (U) Negative Normal NEGATIVE [facility] Comment on above: Performed By: #### U MAC ####Testing performed at [address] [place] [address] URINE HEMOGLOBIN Negative Normal NEGATIVE [facility] Comment on above: Performed By: #### U MAC ####Testing performed at [address] [place] [address] URINE KETONE Negative Normal NEGATIVE [facility] Comment on above: Performed By: #### U MAC ####Testing performed at [address] [place] [address] URINE LEUKOTEST Negative Normal NEGATIVE [facility] Comment on above: Performed By: #### U MAC ####Testing performed at [address] [place] [address] URINE NITRATES Negative Normal NEGATIVE [facility] Comment on above: Performed By: #### U MAC ####Testing performed at [address] [place] [address] URINE SPEC GRAVITY 1.020 Normal 1.010-1.025 [facility] Comment on above: Performed By: #### U MAC ####Testing performed at [address] [place] [address] URINE TOTAL PROTEIN Negative Normal NEGATIVE [facility] Comment on above: Performed By: #### U MAC ####Testing performed at [address] [place] [address] Urine, clarity CLEAR Normal CLEAR [facility] Comment on above: Performed By: #### U MAC ####Testing performed at [address] [place] [address] Urine, color YELLOW Normal YELLOW [facility] Comment on above: Performed By: #### U MAC ####Testing performed at [address] [place] [address] Urine, glucose presence Negative Normal NEGATIVE [facility] Comment on above: Performed By: #### U MAC ####Testing performed at [address] [place] [address] Urine, pH 5.5 [pH] Normal 5.0-7.0 [facility] Comment on above: Performed By: #### U MAC ####Testing performed at [address] [address] Urine, urobilinogen 0.2 mg/dl Normal 0.2-1.0 [facility] Comment on above: Performed By: #### U MAC ####Testing performed at [address] [address] PROCEDUREon 07-07-2017 [facility] NOTES Normal [facility] PROCEDUREon 05-11-2017 [facility] NOTES Normal [facility] Vital Signs Date Time Vital Sign Value Performing Clinician Facility 12-11-2024 12:14-0400 Body mass index (BMI) [Ratio] 32.36 kg/m2 Ailin Pierson MD Work Phone: [facility] 12-11-2024 12:14-0400 Body weight 108.23 kg Ailin Pierson MD Work Phone: [facility] 12-11-2024 12:14-0400 Diastolic blood pressure 57 mm[Hg] Ailin Pierson MD Work Phone: [facility] 12-11-2024 12:14-0400 Heart rate 81 /min Ailin Pierson MD Work Phone: [facility] 12-11-2024 12:14-0400 Respiratory rate 16 /min Ailin Pierson MD Work Phone: [facility] 12-11-2024 12:14-0400 SaO2% (BldA) [Mass fraction] 95 % Ailin Pierson MD Work Phone: [facility] 12-11-2024 12:14-0400 Systolic blood pressure 98 mm[Hg] Ailin Pierson MD Work Phone: [facility] 11-14-2024 08:33-0400 Body height 180.3 cm Pst 1 [facility] 11-14-2024 08:33-0400 Body mass index (BMI) [Ratio] 32.36 kg/m2 Pst 1 [facility] 11-14-2024 08:33-0400 Body temperature 96.8 [degF] Pst 1 [facility] 11-14-2024 08:33-0400 Body weight 105.23 kg Pst 1 [facility] 11-14-2024 08:33-0400 Diastolic blood pressure 85 mm[Hg] Pst 1 [facility] 11-14-2024 08:33-0400 Heart rate 67 /min Pst 1 [facility] 11-14-2024 08:33-0400 Respiratory rate 18 /min Pst 1 [facility] 11-14-2024 08:33-0400 SaO2% (BldA) [Mass fraction] 96 % Pst 1 [facility] 11-14-2024 08:33-0400 Systolic blood pressure 100 mm[Hg] Pst 1 [facility] 10-10-2024 08:01-0400 Body height 182.9 cm Ailin Pierson MD Work Phone: [facility] 10-10-2024 08:01-0400 Body mass index (BMI) [Ratio] 32.44 kg/m2 Ailin Pierson MD Work Phone: [facility] 10-10-2024 08:01-0400 Body weight 108.5 kg Ailin Pierson MD Work Phone: [facility] 10-10-2024 08:01-0400 Diastolic blood pressure 61 mm[Hg] Ailin Pierson MD Work Phone: [facility] 10-10-2024 08:01-0400 Heart rate 81 /min Ailin Pierson MD Work Phone: [facility] 10-10-2024 08:01-0400 SaO2% (BldA) [Mass fraction] 98 % Ailin Pierson MD Work Phone: [facility] 10-10-2024 08:01-0400 Systolic blood pressure 102 mm[Hg] Ailin Pierson MD Work Phone: [facility] 09-18-2024 14:04-0400 Body temperature 97.7 [degF] Vince Huffman MD Work Phone: [facility] 09-18-2024 14:04-0400 Diastolic blood pressure 58 mm[Hg] Vince Huffman MD Work Phone: [facility] 09-18-2024 14:04-0400 Heart rate 64 /min Vince Huffman MD Work Phone: [facility] 09-18-2024 14:04-0400 SaO2% (BldA) [Mass fraction] 97 % Vince Huffman MD Work Phone: [facility] 09-18-2024 14:04-0400 Systolic blood pressure 111 mm[Hg] Vince Huffman MD Work Phone: [facility] 09-11-2024 14:15-0400 Body temperature 97.11 [degF] Vince Huffman MD Work Phone: [facility] 09-11-2024 14:15-0400 Diastolic blood pressure 66 mm[Hg] Vince Huffman MD Work Phone: [facility] 09-11-2024 14:15-0400 Heart rate 82 /min Vince Huffman MD Work Phone: [facility] 09-11-2024 14:15-0400 SaO2% (BldA) [Mass fraction] 97 % Vince Huffman MD Work Phone: [facility] 09-11-2024 14:15-0400 Systolic blood pressure 114 mm[Hg] Vince Huffman MD Work Phone: [facility] 09-04-2024 14:09-0400 Body temperature 97.5 [degF] Vince Huffman MD Work Phone: [facility] 09-04-2024 14:09-0400 Diastolic blood pressure 67 mm[Hg] Vince Huffman MD Work Phone: [facility] 09-04-2024 14:09-0400 Heart rate 80 /min Vince Huffman MD Work Phone: [facility] 09-04-2024 14:09-0400 SaO2% (BldA) [Mass fraction] 99 % Vince Huffman MD Work Phone: [facility] 09-04-2024 14:09-0400 Systolic blood pressure 142 mm[Hg] Vince Huffman MD Work Phone: [facility] 08-29-2024 17:17-0400 Body temperature 98 [degF] Dr. Ailin Pierson MD Work Phone: [facility] 08-29-2024 17:17-0400 Diastolic blood pressure 70 mm[Hg] Dr. Ailin Pierson MD Work Phone: 2(982)581-983304 [place] [address] 08-29-2024 17:17-0400 Heart rate 77 /min Dr. Ailin Pierson MD Work Phone: 6(223)429-833804 [place] [address] 08-29-2024 17:17-0400 Respiratory rate 16 /min Dr. Ailin Pierson MD Work Phone: 3(845)353-429653 [place] [address] 08-29-2024 17:17-0400 SaO2% (BldA) [Mass fraction] 99 % Dr. Ailin Pierson MD Work Phone: 6(116)241-372853 [place] [address] 08-29-2024 17:17-0400 Systolic blood pressure 142 mm[Hg] Dr. Ailin Pierson MD Work Phone: 1(782)185-471104 [place] [address] 08-29-2024 12:39-0400 Body height 182.[address] Ailin Pierson MD Work Phone: 2(546)114-550053 [place] [address] 08-29-2024 12:39-0400 Body mass index (BMI) [Ratio] 31.6 kg/m2 Dr. Ailin Pierson MD Work Phone: 7(006)747-786304 [place] [address] 08-29-2024 12:39-0400 Body weight 105.[address] Ailin Pierson MD Work Phone: [facility] 08-28-2024 14:13-0400 Body temperature 97.5 [degF] Solo Baker MD Work Phone: [facility] 08-28-2024 14:13-0400 Diastolic blood pressure 63 mm[Hg] Solo Baker MD Work Phone: [facility] 08-28-2024 14:13-0400 Heart rate 81 /min Solo Baker MD Work Phone: [facility] 08-28-2024 14:13-0400 SaO2% (BldA) [Mass fraction] 98 % Solo Baker MD Work Phone: [facility] 08-28-2024 14:13-0400 Systolic blood pressure 116 mm[Hg] Solo Baker MD Work Phone: [facility] 08-28-2024 08:51-0400 Body height 182.9 cm Ailin Pierson MD Work Phone: [facility] 08-28-2024 08:51-0400 Body mass index (BMI) [Ratio] 32.01 kg/m2 Ailin Pierson MD Work Phone: [facility] 08-28-2024 08:51-0400 Body weight 107.05 kg Ailin Pierson MD Work Phone: [facility] 08-28-2024 08:51-0400 Diastolic blood pressure 62 mm[Hg] Ailin Pierson MD Work Phone: [facility] 08-28-2024 08:51-0400 Heart rate 74 /min Ailin Pierson MD Work Phone: [facility] 08-28-2024 08:51-0400 SaO2% (BldA) [Mass fraction] 96 % Ailin Pierson MD Work Phone: [facility] 08-28-2024 08:51-0400 Systolic blood pressure 110 mm[Hg] Ailin Pierson MD Work Phone: [facility] 08-21-2024 14:08-0400 Body temperature 98.1 [degF] Sameer Rendon MD Work Phone: [facility] 08-21-2024 14:08-0400 Diastolic blood pressure 67 mm[Hg] Sameer Rendon MD Work Phone: [facility] 08-21-2024 14:08-0400 Heart rate 80 /min Sameer Rendon MD Work Phone: [facility] 08-21-2024 14:08-0400 Respiratory rate 18 /min Sameer Rendon MD Work Phone: [facility] 08-21-2024 14:08-0400 SaO2% (BldA) [Mass fraction] 96 % Sameer Rendon MD Work Phone: [facility] 08-21-2024 14:08-0400 Systolic blood pressure 100 mm[Hg] Sameer Rendon MD Work Phone: [facility] 08-14-2024 14:17-0400 Body temperature 97.9 [degF] Vince Huffman MD Work Phone: [facility] 08-14-2024 14:17-0400 Diastolic blood pressure 72 mm[Hg] Vince Huffman MD Work Phone: [facility] 08-14-2024 14:17-0400 Heart rate 85 /min Vince Huffman MD Work Phone: [facility] 08-14-2024 14:17-0400 SaO2% (BldA) [Mass fraction] 96 % Vince Huffman MD Work Phone: [facility] 08-14-2024 14:17-0400 Systolic blood pressure 122 mm[Hg] Vince Huffman MD Work Phone: [facility] 06-29-2024 10:46-0500 Body mass index (BMI) [Ratio] 32.96 kg/m2 Vince Huffman MD Work Phone: [facility] 06-29-2024 10:46-0500 Body temperature 98.01 [degF] Vince Huffman MD Work Phone: [facility] 06-29-2024 10:46-0500 Body weight 110.22 kg Vince Huffman MD Work Phone: [facility] 06-29-2024 10:46-0500 Diastolic blood pressure 69 mm[Hg] Vince Huffman MD Work Phone: [facility] 06-29-2024 10:46-0500 Heart rate 71 /min Vince Huffman MD Work Phone: [facility] 06-29-2024 10:46-0500 Respiratory rate 15 /min Vince Huffman MD Work Phone: [facility] 06-29-2024 10:46-0500 SaO2% (BldA) [Mass fraction] 98 % Vince Huffman MD Work Phone: [facility] 06-29-2024 10:46-0500 Systolic blood pressure 118 mm[Hg] Vince Huffman MD Work Phone: [facility] 06-26-2024 16:28-0500 Body mass index (BMI) [Ratio] 33.09 kg/m2 Ailin Pierson MD Work Phone: [facility] 06-26-2024 16:28-0500 Body weight 110.68 kg Ailin Pierson MD Work Phone: [facility] 06-26-2024 16:28-0500 Diastolic blood pressure 70 mm[Hg] Ailin Pierson MD Work Phone: [facility] 06-26-2024 16:28-0500 Heart rate 78 /min Ailin Pierson MD Work Phone: [facility] 06-26-2024 16:28-0500 Respiratory rate 18 /min Ailin Pierson MD Work Phone: [facility] 06-26-2024 16:28-0500 SaO2% (BldA) [Mass fraction] 98 % Ailin Pierson MD Work Phone: [facility] 06-26-2024 16:28-0500 Systolic blood pressure 112 mm[Hg] Ailin Pierson MD Work Phone: [facility] 06-21-2024 14:49-0500 Body temperature 98.2 [degF] Dr. Ailin Pierson MD Work Phone: [facility] 06-21-2024 14:49-0500 Diastolic blood pressure 61 mm[Hg] Dr. Ailin Pierson MD Work Phone: 1(358)790-333204 [place] [address] 06-21-2024 14:49-0500 Heart rate 74 /min Dr. Ailin Pierson MD Work Phone: 0(560)665-043504 [place] [address] 06-21-2024 14:49-0500 Respiratory rate 18 /min Dr. Ailin Pierson MD Work Phone: 5(362)828-363753 [place] [address] 06-21-2024 14:49-0500 SaO2% (BldA) [Mass fraction] 97 % Dr. Ailin Pierson MD Work Phone: 2(809)920-398353 [place] [address] 06-21-2024 14:49-0500 Systolic blood pressure 119 mm[Hg] Dr. Ailin Pierson MD Work Phone: 5(492)728-252053 [place] [address] 06-20-2024 02:45-0500 Inhaled oxygen flow rate 2 L/min Dr. Ailin Pierson MD Work Phone: 1(234)072-169253 [place] [address] 06-19-2024 12:35-0500 Body mass index (BMI) [Ratio] 32.8 kg/m2 Dr. Ailin Pierson MD Work Phone: 0(646)068-432753 [place] [address] 06-19-2024 12:35-0500 Body weight 109.[address] Ailin Pierson MD Work Phone: 9(718)636-953653 [place] [address] 05-24-2024 15:43-0500 Body temperature 97.6 [degF] Dr. Ailin Pierson MD Work Phone: 9(399)260-465553 [place] [address] 05-24-2024 15:43-0500 Diastolic blood pressure 76 mm[Hg] Dr. Ailin Pierson MD Work Phone: 4(982)886-564953 [place] [address] 05-24-2024 15:43-0500 Heart rate 71 /min Dr. Ailin Pierson MD Work Phone: 5(920)765-715553 [place] [address] 05-24-2024 15:43-0500 Respiratory rate 18 /min Dr. Ailin Pierson MD Work Phone: 1(371)958-802453 [place] [address] 05-24-2024 15:43-0500 SaO2% (BldA) [Mass fraction] 97 % Dr. Ailin Pierson MD Work Phone: 8(732)016-014453 [place] [address] 05-24-2024 15:43-0500 Systolic blood pressure 114 mm[Hg] Dr. Ailin Pierson MD Work Phone: [facility] 05-24-2024 14:58-0500 Body mass index (BMI) [Ratio] 32.4 kg/m2 Dr. Ailin Pierson MD Work Phone: [facility] 05-24-2024 14:58-0500 Body weight 108.[address] Ailin Pierson MD Work Phone: [facility] 05-16-2024 10:02-0500 Body height 182.9 cm Sarah Coyner ELEVATOR TENDER.[employer] ENGRA[employer] Work Phone: [facility] 05-16-2024 10:02-0500 Body mass index (BMI) [Ratio] 32.69 kg/m2 Sarah Coyner ELEVATOR TENDER.[employer] ENGRAVER Work Phone: [facility] 05-16-2024 10:02-0500 Body weight 109.32 kg Sarah Coyner ELEVATOR TENDER.[employer] ENGRAVER Work Phone: [facility] 05-09-2024 14:00-0500 Diastolic blood pressure 69 mm[Hg] Dr. Ailin Pierson MD Work Phone: 9(924)932-755304 [place] [address] 05-09-2024 14:00-0500 Heart rate 91 /min Dr. Ailin Pierson MD Work Phone: [facility] 05-09-2024 14:00-0500 Respiratory rate 16 /min Dr. Ailin Pierson MD Work Phone: [facility] 05-09-2024 14:00-0500 SaO2% (BldA) [Mass fraction] 98 % Dr. Ailin Pierson MD Work Phone: [facility] 05-09-2024 14:00-0500 Systolic blood pressure 114 mm[Hg] Dr. Ailin Pierson MD Work Phone: [facility] 05-09-2024 10:31-0500 Body temperature 98.1 [degF] Dr. Ailin Pierson MD Work Phone: 4(457)554-932004 [place] [address] 04-23-2024 09:11-0500 Body mass index (BMI) [Ratio] 30.43 kg/m2 Ailin Pierson MD Work Phone: [facility] 04-23-2024 09:11-0500 Body weight 111 kg Ailin Pierson MD Work Phone: [facility] 04-23-2024 09:11-0500 Diastolic blood pressure 78 mm[Hg] Ailin Pierson MD Work Phone: [facility] 04-23-2024 09:11-0500 Heart rate 77 /min Ailin Pierson MD Work Phone: [facility] 04-23-2024 09:11-0500 Respiratory rate 16 /min Ailin Pierson MD Work Phone: [facility] 04-23-2024 09:11-0500 Systolic blood pressure 118 mm[Hg] Ailin Pierson MD Work Phone: [facility] 01-05-2024 09:29-0400 Body mass index (BMI) [Ratio] 31.08 kg/m2 Vince Huffman MD Work Phone: [facility] 01-05-2024 09:29-0400 Body temperature 98.01 [degF] Vince Hufmfan MD Work Phone: [facility] 01-05-2024 09:29-0400 Body weight 113.4 kg Vince Huffman MD Work Phone: [facility] 01-05-2024 09:29-0400 Diastolic blood pressure 71 mm[Hg] Vince Huffman MD Work Phone: [facility] 01-05-2024 09:29-0400 Heart rate 62 /min Vince Huffman MD Work Phone: [facility] 01-05-2024 09:29-0400 Respiratory rate 14 /min Vince Huffman MD Work Phone: [facility] 01-05-2024 09:29-0400 SaO2% (BldA) [Mass fraction] 95 % Vince Huffman MD Work Phone: [facility] 01-05-2024 09:29-0400 Systolic blood pressure 120 mm[Hg] Vince Huffman MD Work Phone: [facility] 01-03-2024 08:36-0400 Body mass index (BMI) [Ratio] 30.46 kg/m2 Juan Blanton Jr., MD Work Phone: [facility] 01-03-2024 08:36-0400 Body weight 111.13 kg Juan Blanton Jr., MD Work Phone: [facility] 12-29-2023 09:52-0400 Body height 191 cm Ailin Pierson MD Work Phone: [facility] 12-29-2023 09:52-0400 Body mass index (BMI) [Ratio] 31.41 kg/m2 Ailin Pierson MD Work Phone: [facility] 12-29-2023 09:52-0400 Body weight 114.58 kg Ailin Pierson MD Work Phone: [facility] 12-29-2023 09:52-0400 Diastolic blood pressure 78 mm[Hg] Ailin Pierson MD Work Phone: [facility] 12-29-2023 09:52-0400 Heart rate 66 /min Ailin Pierson MD Work Phone: [facility] 12-29-2023 09:52-0400 SaO2% (BldA) [Mass fraction] 96 % Ailin Pierson MD Work Phone: [facility] 12-29-2023 09:52-0400 Systolic blood pressure 120 mm[Hg] Ailin Pierson MD Work Phone: [facility] 12-06-2023 14:10-0400 Body mass index (BMI) [Ratio] 34.45 kg/m2 Juan Blanton Jr., MD Work Phone: [facility] 12-06-2023 14:10-0400 Body weight 115.21 kg Juan Blanton Jr., MD Work Phone: [facility] 10-11-2023 08:29-0400 Body mass index (BMI) [Ratio] 34.45 kg/m2 Juan Blanton Jr., MD Work Phone: [facility] 10-11-2023 08:29-0400 Body weight 115.21 kg Juan Blanton Jr., MD Work Phone: [facility] 09-28-2023 09:17-0400 Body mass index (BMI) [Ratio] 34.45 kg/m2 Kayla Older ELEVATOR TENDER.HARD METALS HAND ENGRAVER Work Phone: [facility] 09-28-2023 09:17-0400 Body weight 115.21 kg Kayla Older ELEVATOR TENDER.HARD METALS HAND ENGRAVER Work Phone: [facility] 09-28-2023 09:17-0400 Diastolic blood pressure 80 mm[Hg] Kayla Older ELEVATOR TENDER.HARD METALS HAND ENGRAVER Work Phone: [facility] 09-28-2023 09:17-0400 Heart rate 60 /min Kayla Older ELEVATOR TENDER.HARD METALS HAND ENGRAVER Work Phone: [facility] 09-28-2023 09:17-0400 Respiratory rate 16 /min Kayla Older ELEVATOR TENDER.HARD METALS HAND ENGRAVER Work Phone: [facility] 09-28-2023 09:17-0400 SaO2% (BldA) [Mass fraction] 97 % Kayla Older ELEVATOR TENDER.HARD METALS HAND ENGRAVER Work Phone: [facility] 09-28-2023 09:17-0400 Systolic blood pressure 124 mm[Hg] Kayla Older ELEVATOR TENDER.HARD METALS HAND ENGRAVER Work Phone: [facility] 2023 13:15-0500 Body height 182.9 cm Juan Blanton Jr., MD Work Phone: [facility] 2023 13:15-0500 Body weight 113.4 kg Juan Blanton Jr., MD Work Phone: [facility] 04-19-2023 10:07-0500 Body height 182.9 cm Juan Blanton Jr., MD Work Phone: [facility] 04-19-2023 10:07-0500 Body weight 113.85 kg Juan Blanton Jr., MD Work Phone: [facility] 04-19-2023 10:07-0500 Diastolic blood pressure 76 mm[Hg] Juan Blanton Jr., MD Work Phone: [facility] 04-19-2023 10:07-0500 Heart rate 84 /min Juan Blanton Jr., MD Work Phone: [facility] 04-19-2023 10:07-0500 Respiratory rate 18 /min Juan Blanton Jr., MD Work Phone: [facility] 04-19-2023 10:07-0500 Systolic blood pressure 125 mm[Hg] Juan Blanton Jr., MD Work Phone: [facility] 03-29-2023 15:12-0400 Body height 182.9 cm Dat Jones PA-C Work Phone: [facility] 03-29-2023 15:12-0400 Body temperature 98.29 [degF] Dat Jones PA-C Work Phone: [facility] 03-29-2023 15:12-0400 Body weight 114.67 kg Dat Jones PA-C Work Phone: [facility] 03-29-2023 15:12-0400 Diastolic blood pressure 70 mm[Hg] Dat Jones PA-C Work Phone: [facility] 03-29-2023 15:12-0400 Heart rate 86 /min Dat Jones PA-C Work Phone: [facility] 03-29-2023 15:12-0400 Respiratory rate 14 /min Dat Jones PA-C Work Phone: [facility] 03-29-2023 15:12-0400 SaO2% (BldA) [Mass fraction] 97 % Dat Jones PA-C Work Phone: [facility] 03-29-2023 15:12-0400 Systolic blood pressure 110 mm[Hg] Dat Jones PA-C Work Phone: [facility] 03-25-2022 07:53-0400 Body weight 117.03 kg Kayla Older ELEVATOR TENDER.HARD METALS HAND ENGRAVER Work Phone: [facility] 03-25-2022 07:53-0400 Diastolic blood pressure 86 mm[Hg] Kayla Older ELEVATOR TENDER.HARD METALS HAND ENGRAVER Work Phone: [facility] 03-25-2022 07:53-0400 Heart rate 68 /min Kayla Older ELEVATOR TENDER.HARD METALS HAND ENGRAVER Work Phone: [facility] 03-25-2022 07:53-0400 Respiratory rate 16 /min Kayla Older ELEVATOR TENDER.HARD METALS HAND ENGRAVER Work Phone: [facility] 03-25-2022 07:53-0400 Systolic blood pressure 128 mm[Hg] Kayla Older ELEVATOR TENDER.HARD METALS HAND ENGRAVER Work Phone: [facility] Encounters Encounter Date Encounter Type Care Provider Facility Start: 01-01-2025 ambulatory [facility] Facility:[facility] Start: 12-28-2024 End: 12-28-2024 Patient Outreach Joseluis Lawton RN Work Phone: [employer] Comment on above: Initial phone contac t for Transitional Care Management Start: 12-26-2024 End: 12-26-2024 ambulatory Arsen Israel RN Work Phone: [employer] Start: 12-26-2024 End: 12-26-2024 Evaluation and management of inpatient Arsen Israel RN Work Phone: [employer] Comment on above: Transition Of Care ( TCM Inpatient reach in ) Start: 12-24-2024 End: 12-27-2024 Evaluation and management of inpatient JIMBO AN Facility:[facility] Start: 12-24-2024 End: 12-24-2024 Telephone encounter Juan Malloy (Hist) Urology Comment on above: Patient Update Start: 12-19-2024 End: 12-19-2024 ambulatory [facility] Facility:[facility] Start: 12-19-2024 End: 12-19-2024 Subsequent hospital visit by physician Sherri [facility] ([facility]) Work Phone: Cat Scan Comment on above: Aortic dilatation [I 77.819] Start: 12-18-2024 End: 12-18-2024 Patient Outreach Sophia Garay [employer] Comment on above: High Risk phone cont act for Transitional Care Management Start: 12-17-2024 End: 12-17-2024 ambulatory Nini Islas ELEVATOR TENDER.HARD METALS HAND ENGRAVER Work Phone: [employer] Comment on above: Hypotension, unspeci fied hypotension type (Primary Dx); Lightheaded Start: 12-17-2024 End: 12-17-2024 Patient Outreach Sophia Garay [employer] Comment on above: Weekly phone contact (Recurring) for Transitional Care Management Start: 12-17-2024 End: 12-17-2024 Telemedicine consultation with patient Nini Islas ELEVATOR TENDER.HARD METALS HAND ENGRAVER Work Phone: [employer] Start: 12-11-2024 End: 12-11-2024 ambulatory [facility] Facility:[facility] Start: 12-11-2024 End: 12-11-2024 Office outpatient visit 25 minutes Ailin Pierson MD Work Phone: Internal Medicine [place] Comment on above: Hospital discharge f ollow-up (Primary Dx); S/P TURP; Aortic dilatation; Benign prostatic hyperplasia without lower urinary tract symptoms Start: 12-11-2024 End: 12-11-2024 [facility] Facility:[facility] Start: 12-10-2024 End: 12-10-2024 Patient Outreach Sophia Garay [employer] Comment on above: Weekly phone contact (Recurring) for Transitional Care Management Start: 12-03-2024 End: 12-03-2024 Patient Outreach Sophia Garay [employer] Comment on above: Initial phone contac t for Transitional Care Management Start: 11-30-2024 End: 11-30-2024 Telephone encounter Juan Blanton MD Work Phone: [facility] Comment on above: Appointment Start: 11-29-2024 End: 11-29-2024 ambulatory Rochelle Medrano RN Work Phone: [employer] Start: 11-29-2024 End: 11-29-2024 Evaluation and management of inpatient Rochelle Medrano RN Work Phone: [employer] Comment on above: Transition Of Care ( Inpatient reach in) Start: 11-28-2024 End: 11-29-2024 ambulatory JUAN BLANTON JR Facility:[facility] Start: 11-19-2024 ambulatory [facility] Facility:[facility] Start: 11-19-2024 End: 11-19-2024 Subsequent hospital visit by physician Amaya [facility] Work Phone: Cardiology Lab Comment on above: Abnormal EKG [R94.31 ] Start: 11-14-2024 End: 11-14-2024 Telephone encounter Laci Alexandre APRN.CNP Work Phone: Pre Surgical Testing Comment on above: Opened In Error Appointment Start: 11-14-2024 End: 11-14-2024 Admission to [facility] Pre Surgical Testing Start: 11-14-2024 End: 11-14-2024 ambulatory Pst 1 Pre Surgical Testing Comment on above: Preop examination (P rimary Dx); Obesity, Class I, BMI 30-34.9; Mixed hyperlipidemia; Primary hypertension Start: 11-14-2024 End: 11-14-2024 Preprocedural examination done Pst 1 [facility] Work Phone: Start: 11-14-2024 End: 11-14-2024 [facility] Facility:[facility] Start: 11-05-2024 End: 11-05-2024 Nursing evaluation of patient and report Nurse Urol Link Work Phone: Urology Comment on above: Encounter for Mahoney catheter replacement (Primary Dx) Start: 11-05-2024 End: 11-05-2024 ambulatory [facility] Facility:[facility] Start: 10-25-2024 End: 12-25-2024 Follow-up encounter Mike Martinez [facility] Start: 10-23-2024 End: 10-23-2024 Emergency department patient visit UNKNOWN PROVIDER Facility:[facility] Start: 10-23-2024 End: 10-23-2024 Telephone encounter Vince Huffman MD Work Phone: Radiation Oncology Comment on above: Results Start: 10-17-2024 End: 10-17-2024 [facility] Facility:[facility] Start: 10-15-2024 End: 12-15-2024 Follow-up encounter Ailin Pierson MD Work Phone: Internal Medicine [place] Start: 10-15-2024 End: 10-15-2024 [facility] Facility:[facility] Start: 10-11-2024 End: 10-11-2024 Nursing evaluation of patient and report Nurse Urol Tracey Work Phone: Urology Comment on above: Malignant neoplasm o f prostate (HCC) (Primary Dx) Start: 10-11-2024 End: 10-11-2024 [facility] Facility:[facility] Start: 10-10-2024 End: 10-10-2024 [facility] Facility:[facility] Start: 10-10-2024 End: 10-10-2024 Office outpatient visit 25 minutes Ailin Pierson MD Work Phone: Internal Medicine [place] Comment on above: Medication monitorin g encounter (Primary Dx); Vitamin D deficiency; Left anterior fascicular block; Abnormal EKG; Supraventricular premature beats; Hypomagnesemia; Elevated TSH; Cardiac arrhythmia, unspecified cardiac arrhythmia type Start: 10-10-2024 End: 10-10-2024 [facility] Facility:[facility] Start: 10-08-2024 [facility] Facility:[facility] Start: 10-08-2024 End: 10-08-2024 Subsequent hospital visit by physician [facility] Work Phone: Radiology Comment [...] Patient Education Start: 09-17-2024 End: 09-17-2024 ambulatory [facility] Facility:[facility] Start: 09-14-2024 End: 09-14-2024 ambulatory [facility] Facility:[facility] Start: 09-13-2024 End: 09-13-2024 ambulatory [facility] Facility:[facility] Start: 09-12-2024 End: 09-12-2024 ambulatory [facility] Facility:[facility] Start: 09-11-2024 End: 09-11-2024 Patient encounter procedure Vince Huffman MD Work Phone: Radiation Oncology Comment on above: Prostate cancer (HCC ) (Primary Dx) Start: 09-11-2024 End: 09-11-2024 ambulatory [facility] Facility:[facility] Start: 09-10-2024 End: 09-10-2024 ambulatory [facility] Facility:[facility] Start: 09-07-2024 End: 09-07-2024 ambulatory [facility] Facility:[facility] Start: 09-06-2024 End: 09-06-2024 ambulatory [facility] Facility:[facility] Start: 09-05-2024 End: 09-05-2024 ambulatory [facility] Facility:[facility] Start: 09-04-2024 End: 09-04-2024 Patient encounter procedure Vince Huffman MD Work Phone: Radiation Oncology Comment on above: Prostate cancer (HCC ) (Primary Dx) Start: 09-04-2024 End: 09-04-2024 ambulatory VINCE HUFFMAN Facility:[facility] Start: 09-03-2024 End: 09-03-2024 [facility] Facility:[facility] Start: 08-31-2024 End: 08-31-2024 [facility] Facility:[facility] Start: 08-30-2024 End: 08-30-2024 [facility] Facility:[facility] Start: 08-29-2024 End: 08-29-2024 Telephone encounter Vince [...] Start: 08-28-2024 End: 08-28-2024 ambulatory SOLO BAKER Facility:[facility] Start: 08-28-2024 End: 08-28-2024 [facility] Facility:[facility] Start: 08-28-2024 End: 08-28-2024 Office outpatient visit 40 minutes Ailin Pierson MD Work Phone: [facility] [place] Comment on above: Prostate cancer (HCC ) (Primary Dx); Self-catheterizes urinary bladder; Falls; Decreased bone density; Essential hypertension Start: 08-27-2024 End: 08-27-2024 [facility] Facility:[facility] Start: 08-24-2024 End: 08-24-2024 [facility] Facility:[facility] Start: 08-23-2024 End: 08-23-2024 [facility] Facility:[facility] Start: 08-22-2024 End: 08-22-2024 Telephone encounter Juan Blanton MD Work Phone: [place] [facility] Comment on above: Appointment Start: 08-22-2024 End: 08-22-2024 [facility] Facility:[facility] Start: 08-21-2024 End: 08-21-2024 Patient encounter procedure Sameer Rendon MD Work Phone: Radiation Oncology Comment on above: Prostate cancer (HCC ) (Primary Dx) Start: 08-21-2024 End: 08-21-2024 ambulatory SAMEER RENDON Facility:[facility] Start: 08-20-2024 End: 08-20-2024 ambulatory [facility] Facility:[facility] Start: 08-17-2024 End: 08-17-2024 ambulatory [facility] Facility:[facility] Start: 08-16-2024 End: 08-16-2024 ambulatory [facility] Facility:[facility] Start: 08-15-2024 End: 08-15-2024 ambulatory [facility] Facility:[facility] Start: 08-14-2024 End: 08-14-2024 Patient encounter procedure Vince Huffman MD Work Phone: Radiation Oncology Comment on above: Prostate cancer (HCC ) (Primary Dx) Start: 08-14-2024 End: 08-14-2024 [facility] Facility:[facility] Start: 08-13-2024 End: 08-13-2024 [facility] Facility:[facility] Start: 08-10-2024 End: 08-10-2024 [facility] Facility:[facility] Start: 08-09-2024 End: 08-09-2024 [facility] Facility:[facility] Start: 08-02-2024 End: 08-08-2024 Patient encounter procedure Vince Huffman MD Work Phone: Radiation Oncology Start: 08-02-2024 End: 08-08-2024 Radiation Oncology Note Vince Huffman MD Work Phone: Radiation Oncology Comment on above: Simulation Note Treatment Planning Start: 08-02-2024 End: 08-02-2024 ambulatory [facility] Facility:[facility] Start: 08-02-2024 End: 08-02-2024 Nursing evaluation of patient and report Nurse [facility] Work Phone: Radiation Oncology Comment on above: [...] Ailin Pierson MD Work Phone: Internal Medicine [place] Comment on above: Patient Question Start: 06-29-2024 End: 06-29-2024 ambulatory AILIN PIERSON Facility:[facility] Start: 06-29-2024 End: 06-29-2024 Patient encounter procedure Vince Huffman MD Work Phone: Radiation Oncology Comment on above: Prostate cancer (HCC ) (Primary Dx) Start: 06-28-2024 End: 06-28-2024 ambulatory No Pcp ELEVATOR TENDER [facility] Start: 06-28-2024 End: 06-28-2024 Patient encounter procedure No Pcp ELEVATOR TENDER [facility] Start: 06-28-2024 End: 06-28-2024 Telephone encounter Ailin Pierson MD Work Phone: Internal Medicine [place] Comment on above: Appointment (Urology [place]) Start: 06-27-2024 End: 06-27-2024 Telephone encounter Vince Huffman MD Work Phone: Radiation Oncology Comment on above: New Patient Start: 06-26-2024 End: 06-26-2024 Office outpatient visit 40 minutes Ailin Pierson MD Work Phone: Internal Medicine [place] Comment on above: Prostate cancer (HCC ) (Primary Dx); Closed fracture of multiple ribs of both sides, sequela; Fracture of vertebra due to osteoporosis, sequela; Other osteoporosis, unspecified pathological fracture presence; Debility; Falls frequently Start: 06-26-2024 End: 06-26-2024 [facility] Facility:[facility] Start: 06-26-2024 End: 06-26-2024 Telephone encounter Juan Blanton MD Work Phone: [facility] Comment on above: Results Start: 06-25-2024 End: 06-25-2024 [facility] Facility:[facility] Start: 06-21-2024 Non-patient / Non-visit Dr. Itzel Randle MD -[place] [facility] Work Phone: Start: 06-20-2024 Non-patient / Non-visit Dr. Itzel Randle MD -[place] [facility] Work Phone: Start: 06-19-2024 End: 06-21-2024 [facility] Facility:[facility] Start: 06-19-2024 End: 06-21-2024 Evaluation and management of inpatient Dr. Itzel Randle MD -Pro[facility] Care Unit Work Phone: Start: 05-31-2024 End: 05-31-2024 [facility] Facility:[facility] Start: 05-31-2024 End: 05-31-2024 Nursing evaluation of patient and report Nurse Urol Tracey Work Phone: Urology Comment on above: Urine retention (Lily lea Dx) Start: 05-24-2024 Non-patient / Non-visit Dr. Brayden Meng DO -[place] [facility] Work Phone: Start: 05-24-2024 End: 05-25-2024 Telephone encounter Juan Blanton MD Work Phone: Urology Comment on above: CIC at home Start: 05-24-2024 Non-patient / Non-visit Dr. Samuel brannon MD -[facility] Start: 05-23-2024 Non-patient / Non-visit Dr. Brayden Meng DO -[place] [facility] Work Phone: Start: 05-22-2024 Non-patient / Non-visit Dr. Tyler Garcia MD -[place] [facility] Work Phone: Start: 05-22-2024 ambulatory [facility] Start: 05-22-2024 End: 05-24-2024 Evaluation and management of inpatient Dr. Brayden Gaona DO -[facility] Work Phone: Start: 05-16-2024 End: 05-16-2024 [facility] Facility:[facility] Start: 05-16-2024 End: 05-16-2024 Office outpatient visit [...] cancer (HCC) Start: 04-23-2024 End: 04-23-2024 ambulatory [facility] Facility:[facility] Start: 04-23-2024 End: 04-23-2024 Patient encounter procedure Ailin Pierson MD Work Phone: [facility] Start: 04-19-2024 End: 04-19-2024 ambulatory AILIN PIERSON Facility:[facility] Start: 04-19-2024 Patient encounter procedure AILIN PIERSON [facility] Start: 04-16-2024 End: 04-16-2024 Patient encounter procedure Ailin Pierson MD Work Phone: [facility] Start: 04-16-2024 End: 04-16-2024 Refill Ailin Pierson MD Work Phone: Internal Medicine [place] Comment on above: Refill Request Orders Start: 04-10-2024 End: 04-13-2024 ambulatory Ailin Pierson MD Work Phone: Internal Medicine [place] [phone] Start: 01-11-2024 Telephone encounter Vince Boyer MD [...] Ailin chang MD Work Phone: Internal Medicine [place] Comment on above: Results Start: 12-29-2023 End: 12-29-2023 Office outpatient visit 40 minutes Ailin Pierson MD Work Phone: Internal Medicine [place] Comment on above: Prostate cancer (HCC ) [...] done Juan Blanton Jr., MD Work Phone: [facility] Start: 11-21-2023 Encounter for other preprocedural examination [facility] Start: 10-11-2023 End: 10-11-2023 Patient encounter procedure Juan Blanton MD Work Phone: Urology Comment on above: Elevated prostate sp ecific antigen (PSA) (Primary Dx) Start: 09-28-2023 End: 09-28-2023 Patient encounter procedure Kayla Betancourt APRN.CNP Work Phone: Internal Medicine [place] Comment on above: Prostate cancer (HCC ) (Primary Dx); Insomnia, unspecified type; Increased urinary frequency; Dark urine; Constipation, unspecified constipation type; Sinus drainage Start: 09-22-2023 End: 09-22-2023 Subsequent hospital visit by physician Mri [facility] (I-Stat/Lg Bore/3t) [facility] [...] Question Start: 05-18-2023 Telephone encounter Kayla Betancourt APRN.HARD METALS HAND ENGRAVER Work Phone: [facility] [place] Comment on above: Patient Question (Re garding [...] Biopsy Inst ructions Start: 03-30-2023 Telephone encounter Kayal Betancourt APRN.HARD METALS HAND ENGRAVER Work Phone: [facility] [place] Comment on above: Results Orders; Results Start: 03-29-2023 End: 03-29-2023 Patient encounter procedure Dat Jones PA-C Work Phone: Urology Comment on above: Elevated PSA (Primar y Dx); Benign prostatic hyperplasia with urinary obstruction; Pain in right testicle Start: 03-24-2023 Patient encounter procedure Kayla Betancourt APRN.HARD METALS HAND ENGRAVER Work Phone: [facility] Start: 03-24-2023 Patient encounter status Kayla santos ELEVATOR TENDER.HARD METALS HAND ENGRAVER Work Phone: [facility] Start: 03-24-2023 Telephone encounter Kayla Betancourt APRN.HARD METALS HAND ENGRAVER Work Phone: [facility] [place] Comment on above: Orders Refill Request Start: 12-30-2022 ambulatory Kayla Coe [facility] [place] Comment on above: Population Health [facility] ([facility] [place] [facility]) Start: 04-20-2022 End: 04-20-2022 Nursing evaluation of patient and report Nurse [facility]rol On [facility] Work Phone: Urology Comment on above: Benign prostatic hyp erplasia with urinary obstruction (Primary Dx) Start: 03-25-2022 End: 03-25-2022 Patient encounter procedure Kayla Betancourt APRN.HARD METALS HAND ENGRAVER Work Phone: [facility] [place] Comment on above: Annual physical exam (Primary Dx); Essential hypertension, benign; Elevated PSA; Onychomycosis; Medication monitoring encounter; Tick bite of right upper arm, initial encounter; Erythema migrans Start: 03-09-2022 Patient encounter procedure Ailin Pierson MD Work Phone: [facility] [place] Start: 03-09-2022 Refill Ailin Whaley Work Phone: [facility] [place] Comment on above: Refill Request Lab Orders Start: 12-08-2017 Patient encounter [facility] Start: 09-01-2017 Patient encounter [facility] Start: 08-08-2017 Ambulatory [facility] Start: 08-08-2017 End: 08-10-2017 Evaluation and management of inpatient [facility] Start: 07-21-2017 Patient encounter [facility] Start: 07-07-2017 Patient encounter [facility] Start: 05-11-2017 Patient encounter [facility] Procedures Date Procedure Procedure Detail Performing Clinician [...] SARS-CoV-2, Influenz a & RSV (PCR) Dr. Ailin Pierson MD Work Phone: Start: 05-22-[address] José Miguel Pierson MD Work Phone: Start: 05-09-2024 Computed tomography of abdomen and pelvis with intravenous contrast Dr. Ailin Pierson MD Work Phone: Start: 12-09-2023 Bone &/joint imaging whole body Juan Blanton MD Work Phone: Start: 09-28-2023 Urnls dip stick/tabl et rgnt auto w/o microscopy Kayla Serafin ELEVATOR TENDER.HARD METALS HAND ENGRAVER Work Phone: Start: 04-19-2023 Us pelvic nonobstetr [...] Start: 12-28-2027 Diabetes Screening Diabetes Screenin g [facility] Start: 12-27-2027 Diabetes Screening Diabetes Screenin g [facility] Start: 12-25-2027 Diabetes Screening Diabetes Screenin g [facility] Start: 12-12-2027 Diabetes Screening Diabetes Screenin g [facility] Start: 10-24-2027 Diabetes Screening Diabetes Screenin g [facility] Start: 04-19-2027 Diabetes Screening Diabetes Screenin g [facility] Start: 03-25-2026 Diabetes Screening Diabetes Screenin g [facility] Start: 06-29-2025 BP Controlled (<130/80) BP Controlle d (<130/80) [facility] Start: 06-26-2025 Annual PCP Team Operations Manager merna Disease Visit Annual PCP Team Chronic Disease Visit [facility] Start: 06-26-2025 BP Controlled (<130/80) BP Controlle d (<130/80) [facility] Start: 04-23-2025 Annual PCP Team Operations Manager merna Disease Visit Annual PCP Team Chronic Disease Visit [facility] Start: 04-23-2025 BP Controlled (<130/80) BP Controlle d (<130/80) [facility] Start: 04-23-2025 Covid-19 Vaccine ( season) Covid-19 Vaccine () [facility] Comment on above: Postponed from 01/28 (Declined at this time) Start: 04-17-2025 End: 04-17-2025 ambulatory 04/17/2025 8:30 AM [facility]iation Oncology [address] [place] [address] Vince Huffman MD [address] [place] [address] 6MO/LABS 03/31* Radiation Oncology Comment on above: 6MO/LABS 03/31* Start: 04-10-2025 End: 04-10-2025 ambulatory 04/10/2025 8:15 AM EST Results Only [place] [facility] [address] [place] [address] PSA [place] Comment on above: PSA Start: 03-23-2025 DIABETES SCREEN [facility] Start: 03-23-2025 Diabetes Screening Diabetes Screenin g [facility] Start: 01-28-2025 Influenza vaccination [facility] Start: 01-09-2025 End: 01-09-2025 Patient encounter procedure 01/09/2025 8:00 AM EDT Office Visit [facility] [place] [address] [place] [address] Ailin Pierson MD [address] [facility] [place] [address] 3 mo follow up [facility] [place] Comment on above: 3 mo follow up Start: 01-04-2025 BP Controlled (<130/80) BP Controlle d (<130/80) [facility] Start: 01-01-2025 End: 01-01-2025 Patient encounter procedure 01/01/2025 4:00 PM EDT Office Visit [facility] [place] [address] [place] [address] Ailin Pierson MD [address] [place] [address] 3 mo follow up [facility] [place] Comment on above: 3 mo follow up Start: 12-28-2024 Annual PCP Team Operations Manager merna Disease Visit Annual PCP Team Chronic Disease Visit [facility] Start: 12-28-2024 BP Controlled (<130/80) BP Controlle d (<130/80) [facility] Start: 12-27-2024 End: 12-27-2024 Patient encounter procedure 12/27/2024 9:45 AM EDT Office Visit [facility] [address] [place] [phone] Juan Blanton Jr., MD [address] [place] [address] post op 4 weeks-ok by [facility] Comment on above: post op 4 weeks-ok jacqueline DOMINGUEZ Start: 12-19-2024 End: 12-19-2024 Patient encounter procedure 12/19/2024 11:40 AM EDT Appointment Cat Scan [address] [place] [address] Aortic dilatation [I77.819] Cat Scan Comment on above: Aortic dilatation [I 77.819] Start: 12-11-2024 End: 12-11-2024 Patient encounter procedure 12/11/2024 11:40 AM EDT Office Visit [facility] [place] [address] [place] [address] Ailin Pierson MD [address] [place] [address] Hospital Follow up [facility] [place] Comment on above: Hospital Follow up Start: 11-28-2024 End: 11-28-2024 Admission to [facility] Comment on above: CYSTOSCOPY, RESECTIO N PROSTATE TRANSURETHRAL Start: 11-28-2024 End: 11-28-2024 Anesthesia consultation 11/28/2024 10:15 AM EDT Anesthesia Event [address] [address] Gabriella Gonzalez MD [address] [place] [address] [facility] Start: 11-28-2024 Subsequent hospital visit by physician [place] [facility] Comment on above: BPH with obstruction /lower urinary tract symptoms [N40.1, N13.8] Start: 11-28-2024 End: 11-28-2024 Trurl electrosurg rescj prostate bleed complete CYSTOSCOPY, RESECTION PROSTATE TRANSURETHRAL BPH with obstruction/lower urinary tract symptoms 11/28/2024 10:15 AM EDT [facility] Start: 11-26-2024 Influenza vaccination Influenza Vacc ine (#1) [facility] Comment on above: Postponed from 01/28 (Declined at this time) Start: 11-19-2024 End: 11-19-2024 Patient encounter procedure 11/19/2024 12:30 PM EDT Appointment Cardiology Lab [address] [place] [address] Abnormal EKG [R94.31] ok per [facility] Comment on above: Abnormal EKG [R94.31 ] ok per [facility] Start: 11-14-2024 End: 11-14-2024 ambulatory 11/14/2024 9:20 AM EDT PAT Pre Surgical Testing [address] [place] [address] CYSTO, TRANSURETHRAL RESECTION OF PROSTATE W/ DR BLANTON ON 11/28/2024 - JF Pre Surgical Testing Comment on above: CYSTO, TRANSURETHRAL RESECTION OF PROSTATE W/ DR BLANTON ON 11/28/2024 - JF Start: 11-05-2024 End: 11-05-2024 Nursing evaluation of patient and report 11/05/2024 8:00 AM EDT Nurse Visit Urology [address] [address] , Nurse Urol [place] [address] [place], [place] [id number] cath change Urology Comment on above: cath change Start: 10-15-2024 End: 10-15-2024 Follow-up encounter 10/15/2024 8:30 AM EDT [facility] Radiation Oncology [address] [place] [phone] Vince Huffman MD [address] [place] [address] 4WK FOLLOW UP-CALL [phone] Radiation Oncology Comment on above: 4WK FOLLOW UP-CALL 3 [phone] Start: 10-12-2024 End: 10-12-2024 Patient encounter procedure 10/12/2024 8:00 AM EDT Office Visit Cardiology [address] [facility] [place] [address] Abnormal EKG [R94.31] Cardiology Comment on above: Abnormal EKG [R94.31 ] Start: 10-11-2024 End: 10-11-2024 Nursing evaluation of patient and report 10/11/2024 11:00 AM EDT Nurse Visit Urology [address] [address] , Nurse Urol [place] [address] [place] [address] Rigoberto 6 month Urology Comment on above: Rigoberto 6 month Start: 10-10-2024 End: 01-09-2025 Basic metabolic 2000 panel - Serum or Plasma [facility] Comment on above: Expected: 10/10/2024 , Expires: 01/09/2025 Start: 10-10-2024 End: 01-09-2025 Magnesium [Mass/volume] in Serum or Plasma [facility] Comment on above: Expected: 10/10/2024 , Expires: 01/09/2025 Start: 10-10-2024 End: 01-09-2025 Thyrotropin [Units/volume] in Serum or Plasma [facility] Comment on above: Expected: 10/10/2024 , Expires: 01/09/2025 Start: 10-10-2024 End: 10-10-2024 Patient encounter procedure 10/10/2024 8:20 AM EDT Office Visit [facility] [place] [address] [place] [address] Ailin Pierson MD [address] [place] [address] 6 week f/u [facility] [place] Comment on above: 6 week f/u Start: 10-09-2024 End: 10-09-2024 Patient encounter procedure 10/09/2024 10:30 AM EDT Office Visit Urology [address] [address] Juan Blanton Jr., MD [address] [place] [address] follow up Urology Comment on above: follow up Start: 10-08-2024 End: 10-08-2024 Patient encounter procedure 10/08/2024 8:20 AM EDT Appointment Radiology [address] [place] [phone] Other osteoporosis, unspecified pathological fracture presence [M81.8] Radiology Comment on above: Other osteoporosis, unspecified pathological fracture presence [M81.8] Start: 09-27-2024 Annual PCP Team Operations Manager merna Disease Visit Annual PCP Team Chronic Disease Visit [facility] Start: 09-25-2024 End: 09-25-2024 Patient encounter procedure 09/25/2024 10:30 AM EDT Office Visit Urology [address] [address] Juan Blanton Jr., MD [address] [place] [address] Follow up PSA and Prostate Cancer Urology Comment on above: Follow up PSA and Pr ostate Cancer Start: 09-20-2024 End: 09-20-2024 Patient encounter procedure 09/20/2024 1:45 PM EDT Appointment Radiation Oncology [address] [place] [address] Location: [email or web address] Comment on above: Location: [facility] Start: 09-19-2024 End: 09-19-2024 Patient encounter procedure 09/19/2024 1:45 PM EDT Appointment Radiation Oncology [address] [place] [address] Location: [facility] Comment on above: Location: [facility] Start: 09-18-2024 End: 09-18-2024 Patient encounter procedure Radiation Oncology Comment on above: Location: [facility] Location: W-ON TREAT MENT VISIT Start: 09-17-2024 End: 09-17-2024 Patient encounter procedure 09/17/2024 1:45 PM EDT Appointment Radiation Oncology [address] [place], [place] [id number] Location: [facility] Comment on above: Location: [facility] Start: 09-14-2024 End: 09-14-2024 Patient encounter procedure 09/14/2024 1:45 PM EDT Appointment Radiation Oncology [address] [place] [address] Location: [facility] Comment on above: Location: [facility] Start: 09-13-2024 End: 09-13-2024 Patient encounter procedure 09/13/2024 1:45 PM EDT Appointment Radiation Oncology [address] [place] [address] Location: [facility] Comment on above: Location: [facility] Start: 09-12-2024 End: 09-12-2024 Patient encounter procedure Radiation Oncology Comment on above: Location: [facility] follow up Start: 09-11-2024 End: 09-11-2024 Patient encounter procedure Radiation Oncology Comment on above: Location: [facility] Location: W-ON TREAT MENT VISIT Start: 09-10-2024 End: 09-10-2024 Patient encounter procedure 09/10/2024 1:45 PM EDT Appointment Radiation Oncology [address] [place] [address] Location: [email or web address] Comment on above: Location: [facility] Start: 09-07-2024 End: 09-07-2024 Patient encounter procedure 09/07/2024 1:45 PM EDT Appointment Radiation Oncology [address] [place] [address] Location: [facility] Comment on above: Location: [facility] Start: 09-06-2024 End: 09-06-2024 Patient encounter procedure 09/06/2024 1:45 PM EDT Appointment Radiation Oncology [address] [place] [phone] Location: [facility] Comment on above: Location: [facility] Start: 09-05-2024 End: 09-05-2024 Patient encounter procedure 09/05/2024 1:45 PM EDT Appointment Radiation Oncology [address] [place] [address] Location: [facility] Comment on above: Location: [facility] Start: 09-04-2024 End: 09-04-2024 Patient encounter procedure Radiation Oncology Comment on above: Location: [facility] Location: W-ON TREAT MENT VISIT Start: 09-03-2024 End: 09-03-2024 Patient encounter procedure 09/03/2024 1:45 PM EDT Appointment Radiation Oncology [address] [place] [id number] Location: [facility] Comment on above: Location: [facility] Start: 08-31-2024 End: 08-31-2024 Patient encounter procedure 08/31/2024 1:45 PM EDT Appointment Radiation Oncology [address] [place] [phone] Location: [facility] Comment on above: Location: [facility] Start: 08-30-2024 End: 08-30-2024 Patient encounter procedure 08/30/2024 1:45 PM EDT Appointment Radiation Oncology [address] [place] [address] Location: [facility] Comment on above: Location: [facility] Start: 08-29-2024 [facility] Start: 08-29-2024 [facility] Start: 08-29-2024 [facility] Start: 08-29-2024 Bacteria identified in Blood by Culture Blood Culture [facility] Start: 08-29-2024 End: 08-29-2024 Patient encounter procedure 08/29/2024 1:45 PM EDT Appointment Radiation Oncology [address] [place] [address] Location: [facility] Comment on above: Location: [facility] Start: 08-28-2024 End: 08-28-2024 Patient encounter procedure 08/28/2024 1:45 PM EDT Appointment Radiation Oncology [address] [place] [phone] Location: [facility] Comment on above: Location: [facility] Start: 08-28-2024 End: 08-28-2024 Patient encounter procedure [facility] [place] Comment on above: 3 month follow up Location: W-ON TREAT MENT VISIT Start: 08-27-2024 End: 08-27-2024 Patient encounter procedure 08/27/2024 1:45 PM EDT Appointment Radiation Oncology [address] [place] [address] Location: [facility] Comment on above: Location: [facility] Start: 08-24-2024 End: 08-24-2024 Patient encounter procedure 08/24/2024 1:45 PM EDT Appointment Radiation Oncology [address] [place] [address] Location: [facility] Comment on above: Location: [facility] Start: 08-23-2024 End: 08-23-2024 Patient encounter procedure 08/23/2024 1:45 PM EDT Appointment Radiation Oncology [address] [place], [place] [address] Location: [facility] Comment on above: Location: [facility] Start: 08-22-2024 End: 08-22-2024 Patient encounter procedure 08/22/2024 1:45 PM EDT Appointment Radiation Oncology [address] [place] [address] Location: [facility] Comment on above: Location: [facility] Start: 08-21-2024 End: 08-21-2024 Patient encounter procedure Radiation Oncology Comment on above: Location: [facility] Location: W-ON TREAT MENT VISIT Start: 08-20-2024 End: 08-20-2024 Patient encounter procedure [facility] [place] Comment on above: 3 month follow up Location: [facility] Start: 08-17-2024 End: 08-17-2024 Patient encounter procedure 08/17/2024 1:45 PM EDT Appointment Radiation Oncology [address] [place], [place] [phone] Location: [facility] Comment on above: Location: [facility] Start: 08-16-2024 End: 08-16-2024 Patient encounter procedure 08/16/2024 1:45 PM EDT Appointment Radiation Oncology [address] [place] [address] Location: [facility] Comment on above: Location: [facility] Start: 08-15-2024 End: 08-15-2024 Patient encounter procedure 08/15/2024 1:45 PM EDT Appointment Radiation Oncology [address] [place], [place] [phone] Location: [facility] Comment on above: Location: [facility] Start: 08-14-2024 End: 08-14-2024 Patient encounter procedure Radiation Oncology Comment on above: Location: [facility] Location: W-ON TREAT MENT VISIT Start: 08-13-2024 End: 08-13-2024 Patient encounter procedure 08/13/2024 1:45 PM EDT Appointment Radiation Oncology [address] [place], [place] [phone] Location: [facility] Comment on above: Location: [facility] Start: 08-10-2024 End: 08-10-2024 Patient encounter procedure 08/10/2024 1:45 PM EDT Appointment Radiation Oncology [address] [place] [phone] Location: [facility] Comment on above: Location: [facility] Start: 08-09-2024 End: 08-09-2024 Patient encounter procedure 08/09/2024 1:00 PM EDT Appointment Radiation Oncology [address] [place], [place] [phone] Vince Huffman MD [address] [place], [place] [address] Location: [facility] Comment on above: Location: [facility] Start: 08-02-2024 End: 08-02-2024 Patient encounter procedure 08/02/2024 2:15 PM EST Office Visit Radiation Oncology [address] [place] [address] Vince Huffman MD [address] [place] [address] sim at this time. full bladder vac bag Radiation Oncology Comment on above: sim at this time. fu ll bladder vac bag Start: 08-02-2024 End: 08-02-2024 Nursing evaluation of patient and report 08/02/2024 1:30 PM EST Nurse Visit Radiation Oncology [address] [place] [phone] [facility], Nurse Radt On License [facility] [address] [place] [phone] needs consent. needs full bladder Radiation Oncology Comment on above: needs consent. needs full bladder Start: 07-24-2024 End: 07-24-2024 Patient encounter procedure 07/24/2024 11:15 AM EST Office Visit Urology [address] [address] [place] [address] [place] [phone] 6 mo follow up Urology Comment on above: 6 mo follow up Start: 07-16-2024 End: 07-16-2024 Patient encounter procedure Nuclear Medicine Comment on above: Prostate cancer (HCC ) [C61] Start: 07-10-2024 End: 07-10-2024 Patient encounter procedure 07/10/2024 9:00 AM EST Office Visit Urology [address] [address] Juan Blanton Jr., MD [address] [place], [place] [phone] 6 mo follow up Urology Comment on above: 6 mo follow up Start: 07-05-2024 End: 10-04-2024 Prostate specific Ag [Mass/volume] in Serum or Plasma PROSTATE-SPECIFIC ANTIGEN DIAGNOSTIC Lab Routine Prostate cancer (HCC) Expected: 07/05/2024, Expires: 10/04/2024 [facility] Work Phone: Comment on above: Expected: 07/05/2024 , Expires: 10/04/2024 Start: 06-29-2024 End: 06-29-2024 Patient encounter procedure 06/29/2024 11:00 AM EST Office Visit Radiation Oncology [address] [place] [place] [address] Vince Huffman MD [address] [place] [address] Follow-up Consult - Prostate cancer Radiation Oncology Comment on above: Follow-up Consult - Prostate cancer Start: 06-26-2024 End: 06-26-2024 Patient encounter procedure 06/26/2024 3:40 PM EST Office Visit [facility] [place] [address] [place] [address] Ailin Pierson MD [address] [place] [address] hospital follow up from fall [facility] [place] Comment on above: hospital follow up f rom fall [facility] Start: 06-21-2024 Patient discharge [facility] Start: 06-19-2024 End: 06-20-2024 [facility] Start: 06-19-2024 Application of intermittent pneumatic compression device [facility] Start: 06-19-2024 Fall prevention [facility] Start: 06-19-2024 Assessment of risk o f venous thromboembolism [facility] Start: 06-19-2024 Insertion of cathete r into peripheral vein [facility] Start: 06-19-2024 Measuring intake and output [facility] Start: 06-19-2024 Providing care accor ding to standard [facility] Start: 06-19-2024 Provision of activit y privileges [facility] Start: 06-19-2024 Referral to occupati onal therapist [facility] Start: 06-19-2024 Referral to service [facility] Start: 06-19-2024 Following clinical p athway protocol [facility] Start: 06-19-2024 Admission procedure [facility] Start: 05-31-2024 End: 05-31-2024 Nursing evaluation of patient and report 05/31/2024 9:00 AM EST Nurse Visit Urology [address] [address] Mc, Nurse Urol [place] [address] [place] [address] 2 wk follow up/bladder scan Urology Comment on above: 2 wk follow up/bladd er scan Start: 05-30-2024 Advance Directive Discussion Advance Directive Discussion [facility] Start: 05-24-2024 Patient discharge [facility] Start: 05-24-2024 Introduction of urin gera catheter [facility] Start: 05-24-2024 Removal of urinary catheter [facility] Start: 05-22-2024 Following clinical p athway protocol [facility] Start: 05-22-2024 Assessment of risk o f venous thromboembolism [facility] Start: 05-22-2024 Insertion of cathete r into peripheral vein [facility] Start: 05-22-2024 Measuring intake and output [facility] Start: 05-22-2024 Providing care accor ding to standard [facility] Start: 05-22-2024 Provision of activit y privileges [facility] Start: 05-22-2024 Referral to occupati onal therapist [facility] Start: 05-22-2024 Referral to service [facility] Start: 05-22-2024 [facility] Start: 05-22-2024 Consultation [facility] Start: 05-22-2024 Following clinical p athway protocol [facility] Start: 05-22-2024 Admission procedure [facility] Start: 05-16-2024 End: 05-16-2024 Patient encounter procedure 05/16/2024 10:00 AM EST Office Visit Urology [address] [address] Sarah Ware, ELEVATOR TENDER.HARD METALS HAND ENGRAVER [address] [place] [address] ED follow up- Urology Comment on above: ED follow up- Start: 05-09-2024 [facility] Start: 04-23-2024 End: 04-23-2024 Patient encounter procedure 04/23/2024 9:00 AM EST Office Visit [facility] [place] [address] [place] [address] Ailin Pierson MD [address] [place] [place] [address] medicare wellness [facility] [place] Comment on above: medicare wellness Start: 04-19-2024 BP Controlled (<130/80) BP Controlle d (<130/80) [facility] Start: 04-16-2024 End: 07-16-2024 CBC panel - Blood by Automated count COMPLETE BLOOD COUNT Lab Routine Annual physical exam Primary hypertension Expected: 04/16/2024, Expires: 07/16/2024 [facility] Comment on above: Expected: 04/16/2024 , Expires: 07/16/2024 Start: 04-16-2024 End: 07-16-2024 Comprehensive metabolic 2000 panel - Serum or Plasma COMPREHENSIVE METABOLIC PANEL Lab Routine Annual physical exam Mixed hyperlipidemia Primary hypertension Expected: 04/16/2024, Expires: 07/16/2024 [facility] Comment on above: Expected: 04/16/2024 , Expires: 07/16/2024 Start: 04-16-2024 End: 07-16-2024 Lipid 1996 panel - Serum or Plasma LIPID PANEL BASIC Lab Routine Annual physical exam Mixed hyperlipidemia Expected: 04/16/2024, Expires: 07/16/2024 [facility] Work Phone: Comment on above: Expected: 04/16/2024 , Expires: 07/16/2024 Start: 04-10-2024 End: 07-10-2024 CBC panel - Blood by Automated count COMPLETE BLOOD COUNT Lab Routine Medication management Expected: 04/10/2024, Expires: 07/10/2024 [facility] Work Phone: Comment on above: Expected: 04/10/2024 , Expires: 07/10/2024 Start: 03-30-2024 Annual PCP Team Operations Manager merna Disease Visit Annual PCP Team Chronic Disease Visit [facility] Start: 03-30-2024 BP Controlled (<130/80) BP Controlle d (<130/80) [facility] Start: 03-30-2024 Covid-19 Vaccine () Covid-19 Vaccine () [facility] Comment on above: Postponed from 01/28 (Declined at this time) Start: 03-29-2024 BP Controlled (<130/80) BP Controlle d (<130/80) [facility] Start: 01-29-2024 Covid-19 Vaccine () Covid-19 Vaccine () [facility] Start: 01-29-2024 Influenza vaccination [facility] Start: 01-06-2024 End: 04-06-2024 Prostate specific Ag [Mass/volume] in Serum or Plasma PROSTATE-SPECIFIC ANTIGEN DIAGNOSTIC Lab Routine Prostate cancer (HCC) Expected: 01/06/2024, Expires: 04/06/2024 [facility] Comment on above: Expected: 01/06/2024 , Expires: 04/06/2024 Start: 01-05-2024 End: 01-05-2024 Patient encounter procedure 01/05/2024 9:30 AM EDT Office Visit Radiation Oncology [address] [place], [place] [id number] Vince Huffman MD [address], [place] [id number] PROSTATE CANCER CONSULT* Radiation Oncology Comment on above: PROSTATE CANCER CONS ULT* Start: 01-03-2024 End: 01-03-2024 Patient encounter procedure 01/03/2024 8:45 AM EDT Office Visit Urology [address] [address] Juan Blanton Jr., MD [address] [place] [address] 4 wk follow Urology Comment on above: 4 wk follow Start: 12-29-2023 End: 03-29-2024 25-hydroxyvitamin D3 [Mass/volume] in Serum or Plasma [facility] Work Phone: Comment on above: Expected: 12/29/2023 , Expires: 03/29/2024 Start: 12-29-2023 End: 03-29-2024 Cobalamin (Vitamin B12) [Mass/volume] in Serum or Plasma [facility] Comment on above: Expected: 12/29/2023 , Expires: 03/29/2024 Start: 12-29-2023 End: 12-29-2023 Patient encounter procedure 12/29/2023 9:40 AM EDT Office Visit [facility] [place] [address] [place] [address] Ailin Pierson MD [address] [place], [place] [id number] 3 month follow up [facility] [place] Comment on above: 3 month follow up Start: 12-09-2023 End: 12-09-2023 Patient encounter procedure 12/09/2023 12:30 PM EDT Appointment Molecular Imaging [address] [place] [address] C61,NM WHOLE BODY,OFFICE CALLING,ORDER IN EPIC [facility] Imaging Comment on above: C61,NM WHOLE BODY,OF FICE CALLING,ORDER IN EPIC Start: 12-09-2023 End: 12-09-2023 Patient encounter procedure 12/09/2023 9:30 AM EDT Appointment Molecular Imaging [address] [place] [address] C61,NM WHOLE BODY,OFFICE CALLING,ORDER IN EPIC [facility] Comment on above: C61,NM WHOLE BODY,OF FICE CALLING,ORDER IN EPIC Start: 11-27-2023 Influenza vaccination Influenza Vacc ine (#1) [facility] Comment on above: Postponed from 01/28 (Declined at this time) Start: 11-15-2023 End: 11-15-2023 Patient encounter procedure 11/15/2023 3:00 PM EDT Office Visit Urology [address] [id number] Juan Blanton Jr., MD [address] [place] [address] follow up to mri/ psa Urology Comment on above: follow up to mri/ ps a Start: 10-11-2023 End: 10-11-2023 Patient encounter procedure 10/11/2023 8:45 AM EDT Office Visit Urology [address] [place] [id number] Juan Blanton Jr., MD [address] [place] [address] follow up to mri/ psa Urology Comment on above: follow up to mri/ ps a Start: 09-28-2023 End: 09-28-2023 Patient encounter procedure 09/28/2023 9:20 AM EDT Office Visit [facility] [place] [address] [place], [place] [phone] Kayla Betancourt APRN.HARD METALS HAND ENGRAVER [address] [place] [address] Medicare Wellness [facility] [place] Comment on above: Medicare Wellness Start: 2023 End: 10-18-2023 Prostate specific Ag [Mass/volume] in Serum or Plasma PSA/PROSTSPECAG DIAG Lab Routine Elevated prostate specific antigen (PSA) Expected: 2023, Expires: 10/18/2023 [facility] Work Phone: Comment on above: Expected: 2023 , Expires: 10/18/2023 Start: 07-06-2023 BP CONTROLLED (<130/80) BP CONTROLLE D (<130/80) [facility] Start: 06-25-2023 ANNUAL PCP TEAM STOCKROOM SUPERVISOR MERNA DISEASE VISIT ANNUAL PCP TEAM CHRONIC DISEASE VISIT [facility] Start: 06-11-2023 DIABETES SCREEN DIABETES SCREEN [facility] Start: 05-30-2023 Advance Directive Discussion Advance Directive Discussion [facility] Start: 05-30-2023 Behavioral Health Screening Behavioral Health Screening [facility] Start: 05-30-2023 Depression Assessment Depression Ass essment [facility] Start: 03-29-2023 End: 06-28-2023 ISOPSA ASSAY FOR UROLOGY USE ONLY [facility] Work Phone: Comment on above: Expected: 03/29/2023 , Expires: 06/28/2023 Start: 03-25-2023 ANNUAL PCP TEAM STOCKROOM SUPERVISOR MERNA DISEASE VISIT ANNUAL PCP TEAM CHRONIC DISEASE VISIT [facility] Start: 03-25-2023 BP CONTROLLED (<130/80) BP CONTROLLE D (<130/80) [facility] Start: 03-25-2023 COVID-19 VACCINE (3 - Booster for Pfizer series) COVID-19 VACCINE (3 - Booster for Pfizer series) [facility] Comment on above: Postponed from 10/10 (Declined at this time) Start: 03-25-2023 COVID-19 VACCINE (3 - Pfizer series) COVID-19 VACCINE (3 - Pfizer series) [facility] Comment on above: Postponed from 10/10 (Declined at this time) Start: 03-25-2023 HEPATITIS C SCREENING HEPATITIS C [facility] Comment on above: Postponed from 07/19 (Declined at this time) Start: 03-25-2023 SHINGRIX VACCINE (1 of 2) GALVAN GRIX VACCINE (1 of 2) [facility] Comment on above: Postponed from 07/19 (Declined at this time) Start: 03-25-2023 Urine microalbumin profile [facility] Comment on above: Postponed from 07/19 (Declined at this time) Start: 03-24-2023 End: 06-23-2023 CBC W Auto Differential panel - Blood CBC + DIFF Lab Routine Encounter for wellness examination Expected: 03/24/2023, Expires: 06/23/2023 [facility] Work Phone: Comment on above: Expected: 03/24/2023 , Expires: 06/23/2023 Start: 03-24-2023 End: 06-23-2023 Comprehensive metabolic 2000 panel - Serum or Plasma COMP METABOLIC PANEL Lab Routine Encounter for wellness examination Expected: 03/24/2023, Expires: 06/23/2023 [facility] Work Phone: Comment on above: Expected: 03/24/2023 , Expires: 06/23/2023 Start: 03-24-2023 End: 06-23-2023 Lipid 1995 panel - Serum or Plasma LIPID PANEL BASIC Lab Routine Encounter for wellness examination Expected: 03/24/2023, Expires: 06/23/2023 [facility] Work Phone: Comment on above: Expected: 03/24/2023 , Expires: 06/23/2023 Start: 03-24-2023 End: 06-23-2023 Prostate specific Ag [Mass/volume] in Serum or Plasma PSA/PROSTSPECAG DIAG Lab Routine Elevated PSA Expected: 03/24/2023, Expires: 06/23/2023 [facility] Work Phone: Comment on above: Expected: 03/24/2023 , Expires: 06/23/2023 Start: 01-28-2023 Covid-19 Vaccine () Covid-19 Vaccine () [facility] Start: 01-28-2023 Influenza vaccination C [facility] Start: 12-31-2022 End: 03-02-2023 CBC W Auto Differential panel - Blood CBC + DIFF Lab Routine Essential hypertension, benign Expected: 12/31/2022, Expires: 03/02/2023 [facility] Work Phone: Comment on above: Expected: 12/31/2022 , Expires: 03/02/2023 Start: 12-31-2022 End: 03-02-2023 Comprehensive metabolic 2000 panel - Serum or Plasma COMP METABOLIC PANEL Lab Routine Essential hypertension, benign Expected: 12/31/2022, Expires: 03/02/2023 [facility] Work Phone: Comment on above: Expected: 12/31/2022 , Expires: 03/02/2023 Start: 12-31-2022 End: 03-02-2023 Lipid 1996 panel - Serum or Plasma LIPID PANEL BASIC Lab Routine Mixed hyperlipidemia Expected: 12/31/2022, Expires: 03/02/2023 [facility] Work Phone: Comment on above: Expected: 12/31/2022 , Expires: 03/02/2023 Start: 11-26-2022 Influenza vaccination INFLUENZA (#1) [facility] Comment on above: Postponed from 01/28 (Declined at this time) Start: 04-25-2022 End: 06-25-2022 Hepatic function 2000 panel - Serum or Plasma HEPATIC FUNCTION PNL Lab Routine Medication monitoring encounter Onychomycosis Expected: 04/25/2022 (Approximate), Expires: 06/25/2022 [facility] Work Phone: Comment on above: Expected: 04/25/2022 (Approximate), Expires: 06/25/2022 Start: 03-25-2022 End: 05-25-2022 Borrelia burgdorferi IgG and IgM panel - Serum LYME AB LATE >30 DAYS SYMPTOMS Lab Routine Tick bite of right upper arm, initial encounter Erythema migrans Expected: 03/25/2022, Expires: 05/25/2022 [facility] Work Phone: Comment on above: Expected: 03/25/2022 , Expires: 05/25/2022 Start: 03-18-2022 End: 05-18-2022 PSA/PROSTSPECAG SCRN PSA/PROSTSPECAG SCRN Lab Routine Annual physical exam Prostate cancer screening Expected: 03/18/2022 (Approximate), Expires: 05/18/2022 [facility] Work Phone: Comment on above: Expected: 03/18/2022 (Approximate), Expires: 05/18/2022 Start: 03-17-2022 End: 05-17-2022 CBC W Auto Differential panel - Blood CBC + DIFF Lab Routine Mixed hyperlipidemia Essential hypertension, benign Annual physical exam Expected: 03/17/2022, Expires: 05/17/2022 [facility] Work Phone: Comment on above: Expected: 03/17/2022 , Expires: 05/17/2022 Start: 03-17-2022 End: 05-17-2022 Comprehensive metabolic 2000 panel - Serum or Plasma COMP METABOLIC PANEL Lab Routine Mixed hyperlipidemia Essential hypertension, benign Annual physical exam Expected: 03/17/2022, Expires: 05/17/2022 [facility] Work Phone: Comment on above: Expected: 03/17/2022 , Expires: 05/17/2022 Start: 03-17-2022 End: 05-17-2022 Lipid 1996 panel - Serum or Plasma LIPID PANEL BASIC Lab Routine Mixed hyperlipidemia Essential hypertension, benign Annual physical exam Expected: 03/17/2022, Expires: 05/17/2022 [facility] Work Phone: Comment on above: Expected: 03/17/2022 , Expires: 05/17/2022 Start: 03-04-2022 ANNUAL PCP TEAM STOCKROOM SUPERVISOR MERNA DISEASE VISIT ANNUAL PCP TEAM CHRONIC DISEASE VISIT [facility] Start: 01-28-2022 Influenza vaccination INFLUENZA (#1) [facility] Start: 05-30-2021 ADVANCE DIRECTIVE DISCUSSION ADVANCE DIRECTIVE DISCUSSION [facility] Start: 05-30-2021 DEPRESSION ASSESSMENT DEPRESSION ASS ESSMENT [facility] Start: 10-10-2020 COVID-19 VACCINE (3 - Booster for Pfizer series) COVID-19 VACCINE (3 - Booster for Pfizer series) [facility] Start: 2018 RSV Vaccine (1 - 1-d ose 75+ series) RSV Vaccine (1 - 1-dose 75+ series) [facility] Start: 04-29-2010 Medicare Annual Well ness Visit Medicare Annual Wellness Visit [facility] Start: 2003 RSV Vaccine (1 - 1-d ose 60+ series) RSV Vaccine (1 - 1-dose 60+ series) [facility] Start: 1993 SHINGRIX VACCINE (1 of 2) GALVAN GRIX VACCINE (1 of 2) [facility] Start: 1962 Urine microalbumin profile [facility] Start: 1961 Anxiety Screening Anxiety Screening [facility] Start: 1961 BP CONTROLLED (<130/80) BP CONTROLLE D (<130/80) [facility] Start: 1961 Depression Screening Depression Scre ening [facility] Start: 1961 HEPATITIS C SCREENING HEPATITIS C [facility] Bacteria identified in Urine by Culture URINE CULTURE Microbiology Routine Prostate cancer (HCC) Dysuria 12/06/2023 2:36 PM EDT [facility] Bacteria identified in Urine by Culture BACTERIAL CULTURE, URINE Microbiology Routine Recurrent UTI 09/25/2024 10:48 AM EDT [facility] Work Phone: End: 01-10-2026 CT Chest WO contrast CT CHEST WO IVCON Radiology Routine Aortic dilatation 1 Occurrences starting 12/11/2024 until 01/10/2026 [facility] Work Phone: Comment on above: 1 Occurrences starti ng 12/11/2024 until 01/10/2026 CT Chest WO contrast CT CHEST WO IVCON Radiology Routine Aortic dilatation 12/19/2024 11:51 AM EDT [facility] Work Phone: CT Guidance for radi ation treatment of Unspecified body region CT SIM PLANNING RADIATION ONCOLOGY Radiology Routine Prostate cancer (HCC) Ordered: 08/02/2024 [facility] Work Phone: Comment on above: Ordered: 08/02/2024 End: 04-27-2024 Dup-scan artl marina abdl/pel/scrot&/rpr orgn com US DOPPLER COMPLETE Radiology Routine Pain in right testicle 1 Occurrences starting 03/29/2023 until 04/27/2024 [facility] Work Phone: Comment on above: 1 Occurrences starti ng 03/29/2023 until 04/27/2024 End: 07-27-2025 DXA Skeletal system.axial Views for bone density DXA-AXIAL SKELETON Radiology Routine Other osteoporosis, unspecified pathological fracture presence 1 Occurrences starting 06/27/2024 until 07/27/2025 [facility] Work Phone: Comment on above: 1 Occurrences starti ng 06/27/2024 until 07/27/2025 ECG COMPLETE ECG COMPLETE ECG Routine Medication monitoring encounter 10/10/2024 9:20 AM EDT [facility] End: 10-10-2025 Echocardiography ECHO Cardiology Routine Abnormal EKG 1 Occurrences starting 10/10/2024 until 10/10/2025 [facility] Work Phone: Comment on above: 1 Occurrences starti ng 10/10/2024 until 10/10/2025 End: 08-17-2024 MR Prostate WO and W contrast IV MRI PROSTATE WO/W IVCON Radiology Routine Encounter for observation for other suspected diseases and conditions ruled out 1 Occurrences starting 2023 until 08/17/2024 [facility] Work Phone: Comment on above: 1 Occurrences starti ng 2023 until 08/17/2024 MR Prostate WO and W contrast IV MRI PROSTATE WO/W IVCON Radiology Routine Encounter for observation for other suspected diseases and conditions ruled out 09/22/2023 10:57 AM EDT [facility] Work Phone: End: 08-17-2024 MR Unspecified body region 3D post processing MRI 3D POST PROCESSING Radiology Routine Elevated prostate specific antigen (PSA) Encounter for observation for other suspected diseases and conditions ruled out 1 Occurrences starting 2023 until 08/17/2024 [facility] Work Phone: Comment on above: 1 Occurrences starti ng 2023 until 08/17/2024 MR Unspecified body region 3D post processing MRI 3D POST PROCESSING Radiology Routine Elevated prostate specific antigen (PSA) Encounter for observation for other suspected diseases and conditions ruled out 09/22/2023 10:57 AM EDT [facility] End: 01-04-2025 NM Whole body Bone Views NM BONE WHOLE BODY Radiology Routine Prostate cancer (HCC) 1 Occurrences starting 12/06/2023 until 01/04/2025 [facility] Work Phone: Comment on above: 1 Occurrences starti ng 12/06/2023 until 01/04/2025 Patient Education [facility] Work Phone: Patient referral [facility] Work Phone: End: 07-29-2025 PET+CT Guidance for localization of tumor of Whole body-- W [id number] IV NM PET/CT PROSTATE WHOLE BODY IMAGING Radiology STAT Prostate cancer (HCC) 1 Occurrences starting 06/29/2024 until 07/29/2025 [facility] Work Phone: Comment on above: 1 Occurrences starti ng 06/29/2024 until 07/29/2025 POST VOID RESIDUAL POST VOID RES IDUAL Procedures Routine Benign prostatic hyperplasia with urinary obstruction Ordered: 04/20/2022 [facility] Work Phone: Comment on above: Ordered: 04/20/2022 POST VOID RESIDUAL POST VOID RES IDUAL Procedures Routine Elevated PSA Benign prostatic hyperplasia with urinary obstruction Ordered: 03/29/2023 [facility] Work Phone: Comment on above: Ordered: 03/29/2023 PROSTATE BIOPSY GUKI PROSTATE BI OPSY GUKI Procedures Routine Elevated prostate specific antigen (PSA) Ordered: 03/30/2023 [facility] Work Phone: Comment on above: Ordered: 03/30/2023 SURGICAL PATHOLOGY SURGICAL PATH OLOGY Lab Routine Elevated prostate specific antigen (PSA) 04/19/2023 10:55 AM EST [facility] Work Phone: Urine culture [facility] End: 04-27-2024 Us scrotum & contents US SCROTUM AND CONTENTS Radiology Routine Pain in right testicle 1 Occurrences starting 03/29/2023 until 04/27/2024 [facility] Work Phone: Comment on above: 1 Occurrences starti ng 03/29/2023 until 04/27/2024 [facility] Immunizations Immunization Date Immunization Notes Care Provider [facility] 08-15-2020 COVID-19 original vaccine, age 12+ yr, monovalent (PFIZER-BIONTECH - PURPLE TOP) Ailin Pierson MD Work Phone: [facility] Work Phone: 07-25-2020 COVID-19 original vaccine, age 12+ yr, monovalent (PFIZER-BIONTECH - PURPLE TOP) Ailin Pierson MD Work Phone: [facility] Work Phone: 02-27-2019 influenza, high dose seasonal, preservative-free Ailin Pierson MD Work Phone: [facility] Work Phone: 02-27-2019 influenza virus vacc ine, unspecified formulation Kayla Betancourt APRN.CNP Work Phone: [facility] 10-06-2016 pneumococcal conjuga te vaccine, 13 valent Ailin Pierson MD Work Phone: [facility] Work Phone: 06-25-2014 influenza, injectabl e, quadrivalent, preservative free Dr. Ailin Pierson MD Work Phone: [facility] 06-25-2014 influenza, seasonal, injectable Ailin Pierson MD Work Phone: [facility] Work Phone: 06-22-2013 influenza virus vacc ine, unspecified formulation Ailin Pierson MD Work Phone: [facility] 09-09-2011 influenza virus vacc ine, unspecified formulation Ailin Pierson MD Work Phone: [facility] 09-09-2011 pneumococcal polysaccharide vaccine, 23 valent Ailin Pierson MD Work Phone: [facility] Payers Date Payer Category Payer Self-pay 2016 [facility] [employer]ID [employer] DICARE SUPPLEMENT Member Subscriber Plan / Payer (Effective 2016-Present) Name: Zachary Short Relation to Subscriber: Self Name: Zachary Short Payer ID: [id number] (NAIC) Group ID: [id number] Type: Indemnity Address: [address] [place] [id number] 2016 Unknown REID [employer] DICARE SUPPLEMENT [id number] 2016-Present [phone] [address] [place] [id number] Indemnity [id number] 2016 Medicare [id number] 2010 Medicare [id number] 2010 Medicare [id number] Unknown [id number] Unknown [id number] Unknown [id number] Unknown [id number] Unknown [id number] Unknown [id number] Unknown [id number] Unknown [id number] Unknown [id number] Unknown [id number] Unknown [id number] Social History Date Type Detail Facility Start: 09-21-2011 End: 04-19-2023 Tobacco smoking status PAIS Never smoked tobacco [facility] Start: 09-21-2011 End: 04-19-2023 Tobacco use and exposure Smokeless tobacco non-user [facility] Start: 01-13-2022 End: 12-11-2024 Alcohol intake Current drinker of alcohol (finding) [facility] Start: 06-10-2020 History SDOH Alcohol Frequency 2 [facility] Start: 06-10-2020 History SDOH Alcohol Std Drinks 1 [facility] Start: 06-10-2020 History SDOH Social Connections Phone 5 [facility] Start: 06-10-2020 History SDOH Social Connections Meetings 3 [facility] Start: 06-10-2020 History SDOH Social Connections Living 4 [facility] Start: 06-10-2020 Education 15 [facility] Start: 05-22-2012 Alcohol Comment socially, 3-4 beers/year [facility] Start: 1945 Sex Assigned At Male [facility] Start: 03-23-2022 End: 04-02-2022 Exposure to SARS-CoV-2 (event) Not sure [facility] Start: 06-10-2020 End: 03-30-2023 History of Social function [facility] Start: 06-10-2020 End: 03-30-2023 Social connection and isolation panel [facility] Do you belong to any clubs or organizations such as sikh groups, unions, fraternal or athletic groups, or school groups? Yes [facility] Are you now , , , , never or living with a partner? [facility] How often to you hav e a drink containing alcohol? Monthly or less [facility] How many standard drinks containing alcohol do you have on a typical day? 1 or 2 [facility] How often do you hav e 6 or more drinks on 1 occasion? Never [facility] How hard is it for y ou to pay for the very basics like food, housing, medical care, and heating Not hard at all [facility] Do you feel stress - tense, restless, nervous, or anxious, or unable to sleep at night because your mind is troubled all the time - these days [OSQ] Not at all [facility] (I/We) worried whecaron er (my/our) food would run out before (I/we) got money to buy more. Never true [facility] In the past 12 month s, was there a time when you were not able to pay the mortgage or rent on time? No [facility] Start: 02-20-2019 Gender identity Identifies as male gender (finding) [facility] Start: 02-20-2019 Sexual orientation Heterosexual (dominga mcintosh) [facility] How often to you hav e a drink containing alcohol? 2-4 times a month [facility] Start: 08-29-2024 Sex Male (finding) [facility] NEGATED: Highlighted rowStart: NINF History of tobacco use Passive smoker [facility] Medical Equipment Procedure Code Equipment Code Equipment Origin al Text Equipment Identifier Dates Alvaro Bn Smpx P Speedset Fd Fst - [id number] Start: 09-08-2011 Alvaro Bn Smpx P Tobra Fd - [id number] Start: 03-07-2012 Qro-Sa-E-Kind Implant - [id number] Start: 09-08-2011 Comment on above: Description: affinit i humeral stem Head Hum 18mm 48 mm Ecc Dvour - [id number] Start: 09-08-2011 Comment on above: Description: affinit i humeral head Head Hum 18mm 52 mm Ecc Affnt - [id number] Start: 03-07-2012 Stem Hum 14mm Affnt Ti Std - [id number] Start: 03-07-2012 Comp Angel 48 Peg Pros Affnt - [id number] Start: 03-07-2012 Goals Date Patient Goal Desired Activity /State Functional Status Date Assessment Result Facility 12-27-2024 Are you deaf, or do you have serious difficulty hearing No 12/27/2024 3:27 PM Karla Castro RN No [facility] 12-27-2024 Are you blind, or do you have serious difficulty seeing, even when wearing glasses No 12/27/2024 3:27 PM Karla Castro, LAY No [facility] 12-27-2024 Do you have serious difficulty walking or climbing stairs No 12/27/2024 3:27 PM Karla Castro, LAY No [facility] 12-27-2024 Do you have difficul ty dressing or bathing No 12/27/2024 3:27 PM Karla Castro, LAY No [facility] 12-27-2024 Because of a physica l, mental, or emotional condition, do you have difficulty doing errands alone such as visiting a physician's office or shopping No 12/27/2024 3:27 PM Karla Castro, LAY No [facility] 11-29-2024 Are you deaf, or do you have serious difficulty hearing No 11/29/2024 3:01 PM Essie Samuel RN No [facility] 11-29-2024 Are you blind, or do you have serious difficulty seeing, even when wearing glasses No 11/29/2024 3:01 PM Essie Samuel RN No [facility] 11-29-2024 Do you have serious difficulty walking or climbing stairs No 11/29/2024 3:01 PM Essie Samuel RN No [facility] 11-29-2024 Do you have difficul ty dressing or bathing No 11/29/2024 3:01 PM Essie Samuel RN No [facility] 11-29-2024 Because of a physica l, mental, or emotional condition, do you have difficulty doing errands alone such as visiting a physician's office or shopping No 11/29/2024 3:01 PM Essie Samuel RN No [facility] 06-21-2024 Functional status Chair [facility] Work Phone: 05-24-2024 Functional status Ambulates [facility] Work Phone: 2014 Are you deaf, or do you have serious difficulty hearing No 2014 1:03 PM Evelyn Boateng LPN No [facility] 2014 Are you blind, or do you have serious difficulty seeing, even when wearing glasses No 2014 1:03 PM Evelyn Boateng LPN No [facility] 2014 Do you have serious difficulty walking or climbing stairs No 2014 1:03 PM Evelyn Boateng LPN No [facility] 2014 Do you have difficul ty dressing or bathing No 2014 1:03 PM Evelyn Boateng LPN No [facility] 2014 Because of a physica l, mental, or emotional condition, do you have difficulty doing errands alone such as visiting a physician's office or shopping No 2014 1:03 PM Evelyn Boateng LPN No [facility] Mental Status Date Assessment Result Facility 12-27-2024 Because of a physica l, mental, or emotional condition, do you have serious difficulty concentrating, remembering, or making decisions No 12/27/2024 3:27 PM EDT Karla Zaidi, LAY No [facility] 11-29-2024 Because of a physica l, mental, or emotional condition, do you have serious difficulty concentrating, remembering, or making decisions No 11/29/2024 3:01 PM EDT Essie Montiel RN No [facility] 06-21-2024 Cognitive function Voice/Name [facility] Work Phone: 05-24-2024 Cognitive function Voice/Name [facility] Work Phone: 2014 Because of a physica l, mental, or emotional condition, do you have serious difficulty concentrating, remembering, or making decisions No 2014 1:03 PM Evelyn Boateng LPN No [facility] Clinical Notes 05-17-2008 to 01-01-2025 Mario Justin - 12/28/2024 12:32 PM Joseluis Mckinney RN - 12/28/2024 10:27 AM Arsen Cabrera RN - 12/26/2024 9:23 AM Nithya Pardo RT(R) - 12/19/2024 11:40 AM EDT Note Date & Type Note Facility 01-01-2025 Note HNO ID: [id number] Author: AILIN PIERSON MD Service: ? Author [...] significant weakness. - Ordered sleep study at [facility] to evaluate the severity of sleep [...] excuse any unintended typographical errors. Recording using New KCBX software for draft documentation of the visit was discussed with the patient/authorized manufacturer's service representative; all questions welcomed and answered. Patient/authorized manufacturer's service representative agreed to proceed Ailin Pierson MD [facility] 12-28-2024 Note HNO ID: [id number] Author: MARIO JUSTIN, ? Service: ? Author Type: Patient Lens Molding Equipment Operator Type: Progress Notes Filed: 12/28/2024 12:40 Note [...] Hospital Follow-up: Medium risk 10-14% 01/01/2025 in [facility] with AILIN PIERSON - 3 mo follow up 04/10/2025 in [facility] with LAB [facility] - PSA 04/17/2025 in [facility] with VINCE HUFFMAN - 6MO/LABS 03/31* Navigation Signature: Mario Justin Population [employer] Space Navigator December 28, 2024 12:32 PM [facility] 12-28-2024 History of Present illness Narrative [...] Hospital Follow-up: Medium risk 10-14% 01/01/2025 in [facility] with AILIN PIERSON - 3 mo follow up 04/10/2025 in LAB [facility] with LAB [facility] - PSA 04/17/2025 in [facility] with VINCE HUFFMAN - 6MO/LABS 03/31* [...] Dr. Blanton. Thank you, Joseluis Lawton RN [facility] Home Visit Referral Source of Stratification: [...] with his urologist. Sent to navigator. Sent UXFLIP message at his request with the H@H phone number. Patient discharged from [facility] Discharge date: 12/27/24 Admitted for: UTI Readmission Risk: 22 Value-Based Contract: ACO Contact: Contact made with patient: Yes Hi, my name is Joseluis Lawton RN and I am calling from the [facility] on behalf of your Primary Care Provider, [...] I will send your request to a cardiac cath rn who will contact and assist you with [...] 2024 10:28 AM documented in this encounter [facility] 12-28-2024 Note HNO ID: [id number] Author: JOSELUIS LAWTON RN Service: ? Author [...] Blanton. Thank you, Joseluis Lawton RN [facility] TCM Home Visit Referral Source of Stratification: [facility] Hospital Admission Status: Discharged Readmission Risk Score: 22 Patient meets program referral criteria: No Patient does not qualify for High Risk TCM Home Visit program due to: Readmission Risk Score does not meet criteria Disposition: Patient does not qualify for [facility], will provide TCM outreach follow-up for 30-days [...] with his urologist. Sent to navigator. Sent UXFLIP message at his request with the H@H phone number. Patient discharged from [facility] Discharge date: 12/27/24 Admitted for: UTI Readmission Risk: 22 Value-Based Contract: ACO Contact: Contact made with patient: Yes Hi, my name is Joseluis Lawton RN and I am calling from the [facility] on behalf of your Primary Care Provider, [...] I will send your request to a cardiac cath rn who will contact and assist you with [...] Lawton RN December 28, 2024 10:28 AM [facility] 12-28-2024 Note Patient Outreach ([facility]) ZACHARY SHORT ([id number]) 1945 M Date Time Provider Department 12/28/24 [...] Dr. Blanton. Thank you, Joseluis Lawton RN [facility] T[facility] Home Visit Referral Source of Stratification: [facility] Hospital Admission Status: Discharged Readmission Risk Score: [...] with his urologist. Sent to navigator. Sent UXFLIP message at his request with the H@H phone number. Patient discharged from [facility] Discharge date: 12/27/24 Admitted for: UTI Readmission Risk: 22 Value-Based Contract: ACO Contact: Contact made with patient: Yes Hi, my name is Joseluis Lawton RN and I am calling from the [facility] on behalf of your Primary Care Provider, [...] I will send your request to a cardiac cath rn who will contact and assist you with [...] AM Anne Justin (more content not included)... [facility] 12-27-2024 Note HNO ID: [id number] Author: SHANITA BERRIOS LSW Service: Care Management Author Type: Mini Lab Operator Type: Care Mgt Progress Note Filed: 12/27/2024 [...] Physician Primary Care Physician Name/Phone: Ailin Pierson MD/[phone] Discharge order placed. CMSW met with the [...] DATE: December 27, 2024 TIME: 2:47 PM [facility] 12-26-2024 Note HNO ID: [id number] Author: ALLISON SUN MD Service: Hospital Medicine [...] -- 12/24/24 2245 activity - mobilize patient (ne,in) VTE Prophylaxis: VTE prophylaxis appropriate Assesment: Acute [...] for tomorrow *Constipation the patient and his vpmwfeh-cr-thx at bedside Plan 12/10/2019 *Continue IV antibiotics [...] Allison Sun MD PATIENT NAME: Zachary Short [facility] 12-26-2024 Note HNO ID: [id number] Author: ARSEN ISRAEL RN Service: ? Author Type: Registered Nurse Type: Progress Notes Filed: 12/26/2024 09:24 Note Text: Transitional Care Management (TCM) Inpatient Outreach N/A - No specialty updates needed Summary: Patient admitted to: [facility] Patient admitted on: (Not on file) Admitted for: Acute urinary tract infection Contact made with patient: No MyChart message sent Arsen Israel RN December 26, 2024 [facility] 12-26-2024 History of Present illness Narrative Transitional Care Management (TCM) Inpatient Outreach N/A - No specialty updates needed Summary: Patient admitted to: [facility] Patient admitted on: (Not on file) Admitted for: Acute urinary tract infection Contact made with patient: No MyChart message sent Arsen Israel RN December 26, 2024 documented in this encounter [facility] 12-26-2024 Note Patient Outreach (AM [facility]) ZACHARY SHORT ([id number]) 1945 M Date Time Provider Department 12/26/24 ARSEN ISRAEL AMBWALTERG During your visit today, we recorded the following information about you: Arsen Israel RN 12/26/2024 9:24 AM Signed Transitional Care Management (TCM) Inpatient Outreach N/A - No specialty updates needed Summary: Patient admitted to: [facility] Patient admitted on: (Not on file) [...] - azelastine 0.1% nasal spray Use 1 Goddard in each nostril two times a day. - lisinopril-hydroCHLOROthiazide (ZESTORETIC) 10-12.5 mg per tablet Take 1 tablet by mouth once daily. - ergocalciferol 50,000 unit capsule (VITAMIN D2, DRISDOL) Take 1 capsule by mouth two times a week. TO BE TAKEN ORALLY DIRECTED. Take 1 tablet by mouth twice weekly [id number], then decrease to 1 tablet weekly. - [...] Encounter Status:Closed by ARSEN ISRAEL on 12/26/24 [facility] 12-25-2024 Note HNO ID: [id number] Author: SHANITA BERRIOS LSW Service: Care Management Author Type: Mini Lab Operator Type: Care Mgt Initial Assessment Filed: 12/25/2024 [...] Current Advance Directive: Health Care Power of Assistant Associate Full Professor, Living Will In Chart: Yes Up To [...] stick) Discharge Planning Patient Goal(s): General wellness Bypro of Choice Explained: Bypro of Choice Given: No Reason Not Given: [...] walker for ambulation as needed; is fairly I-CD MIXER with ADLs but states that his family assists with the laundry; is not active with any skilled services CD MIXER. Patient drives and states that he drove himself here. Patient is from home alone and states that he is safe and has his needs met. CM assigned will continue to follow for discharge needs. SIGNATURE: TODD Hauser PATIENT NAME: Zachary Short DATE: December 25, 2024 TIME: 4:19 PM [facility] 12-25-2024 Note HNO ID: [id number] Author: ALLISON SUN MD Service: Hospital Medicine [...] -- 12/24/24 2245 activity - mobilize patient (ne,in) VTE Prophylaxis: VTE prophylaxis appropriate Assesment: Acute [...] for tomorrow *Constipation the patient and his fzwwpku-vp-fxy at bedside Plan of care discussed with: Provider, RN, Patient. Disclaimer This dictation was created using voice recognition software. Phonetic and/or minor grammatical errors may exist. SIGNATURE: Allison Sun MD PATIENT NAME: Zachary Short [facility] 12-24-2024 Telephone encounter Note Patient is [...] would be for him to go to /[facility]. Mario Ugalde RN [facility] Work Phone: 12-24-2024 Miscellaneous Notes Patient is [...] would be for him to go to /[facility]. Mario Ugalde RN documented in this encounter [facility] 12-19-2024 History of Present illness Narrative Radiology [...] PATIENT PRESENTS WITH AN IMPLANTABLE OR ATTACHED MANAGER OF INTERNAL: No RADIOLOGY DEPARTMENT: CT; Exam(s) Completed: Chest PERIPHERAL IV DATA: Not applicable SIGNED BY: RT Gwen(R) December 19, 2024 3:52 PM documented in this encounter [facility] 12-19-2024 Note HNO ID: [id number] Author: NITHYA ALDRIDGE RT(R) Service: ? Author Type: Senior System Operator Type: Progress Notes Filed: 12/19/2024 15:52 Note [...] PATIENT PRESENTS WITH AN IMPLANTABLE OR ATTACHED MANAGER OF INTERNAL: No RADIOLOGY DEPARTMENT: CT; Exam(s) Completed: Chest PERIPHERAL IV DATA: Not applicable SIGNED BY: RT Gwen(Sri) December 19, 2024 3:52 PM [facility] 12-18-2024 Note HNO ID: [id number] Author: SOPHIA GARAY RN Service: ? Author [...] office. Pt voiced understanding. Message received via: StartDate LabsH escalation follow-up Patient escalated to Virtualist on: [...] . Discussed care with patient Based on metal burrer the following disposition is advised: No symptoms or symptoms present, not severe. Routed to: No Action Needed VINH Education Provided this Outreach: No Sophia Garay RN December 18, 2024 9:31 AM [facility] 12-18-2024 History of Present illness Narrative [...] office. Pt voiced understanding. Message received via: StartDate LabsH escalation follow-up Patient escalated to Virtualist on: [...] . Discussed care with patient Based on metal burrer the following disposition is advised: No symptoms or symptoms present, not severe. Routed to: No Action Needed VINH Education Provided this Outreach: No Sophia Garay RN December 18, 2024 9:31 AM documented in this encounter [facility] 12-18-2024 Telephone encounter Note Patient calling and had the Medicare Outpatient Observation notice. I called back and gave billing number to patient. Left message about billing # [phone]. [facility] 12-18-2024 Miscellaneous Notes Patient calling and had the Medicare Outpatient Observation notice. I called back and gave billing number to patient. Left message about billing # [phone]. documented in this encounter [facility] 12-18-2024 Note Patient Outreach (AM [facility]) ZACHARY SHORT ([id number]) 1945 M Date Time Provider Department 12/18/24 SOPHIA GARAY [facility] During your visit today, we recorded the [...] . Discussed care with patient Based on metal burrer the following disposition is advised: No symptoms or symptoms present, not severe. Routed to: No Action Needed VINH Education Provided this Outreach: No Sophia Garay RN December 18, 2024 9:31 AM Allergies As of Date: 12/18/2024 Noted Allergy Reaction RAMELTEON 05/22/2024 1 - Mental Status Change Date Reviewed: 12/17/2024 Reviewed by: Nini Sheriff APRN.HARD METALS HAND ENGRAVER - Fully Assessed Prescriptions as of 12/18/2024 [...] - azelastine 0.1% nasal spray Use 1 Goddard in each nostril two times a day. - lisinopril-hydroCHLOROthiazide (ZESTORETIC) 10-12.5 mg per tablet Take 1 tablet by mouth once daily. - ergocalciferol 50,000 unit capsule (VITAMIN D2, DRISDOL) Take 1 capsule by mouth two times a week. TO BE TAKEN ORALLY DIRECTED. Take 1 tablet by mouth twice weekly [id number], then decrease to 1 tablet weekly. - [...] Encounter Status:Closed by SOPHIA GARAY on 12/18/24 [facility] 12-17-2024 Note HNO ID: [id number] Author: NINI SHERIFF APRN.HARD METALS HAND ENGRAVER Service: ? Author Type: Nurse Practitioner Type: Progress Notes Filed: 12/17/2024 16:20 Note Text: Virtualist [facility] Note I have communicated my name and active licensure. The patient's identity and physical location were verified at the time of this visit. Either the patient or their legal manufacturer's service representative has been informed of the risks [...] in as Primary Virtualist, Secondary Virtualist, or [facility] Telehealth provider: Primary SIGNATURE: Nini Islas APRN.CNP PATIENT NAME: Zachary Short DATE: December 17, 2024 [facility] 12-17-2024 History of Present illness Narrative Virtualist [facility] Note I have communicated my name and active licensure. The patient's identity and physical location were verified at the time of this visit. Either the patient or their legal manufacturer's service representative has been informed of the risks [...] in as Primary Virtualist, Secondary Virtualist, or [facility] Telehealth provider: Primary SIGNATURE: Nini Islas APRN.CNP PATIENT NAME: Zachary Short DATE: December 17, 2024 documented in this encounter [facility] 12-17-2024 Note HNO ID: [id number] Author: SOPHIA GARAY RN Service: ? Author Type: Registered Nurse Type: Progress Notes Filed: 12/17/2024 15:13 Note Text: Transitional Care Management (TCM) Follow-Up Note PCP Update / Actionable Items Virtualist Name of Virtualist: Nini Islas Time paged: 3:12 pm Preferred contact number: [phone] Patient escalation symptom(s)/nursing assessment: low BP, lightheadedness, [...] indicated [place] [phone] and indicate 'TCM patient', MRN, Patient Name, [...] Garay RN December 17, 2024 2:56 PM [facility] 12-17-2024 History of Present illness Narrative Images from the original note were not included. Transitional Care Management (TCM) Follow-Up Note PCP Update / Actionable Items Virtualist Name of Virtualist: Nini Farley Urban Time paged: 3:12 pm Preferred contact number: [phone] Patient escalation symptom(s)/nursing assessment: low BP, lightheadedness, [...] and patient's preferred method of contact (telephone, Arideas, Cingulate [employer]), your name, your contact number. Informed patient [...] 2024 2:56 PM documented in this encounter [facility] 12-17-2024 Note Patient Outreach (AM [facility]) ZACHARY SHORT ([id number]) 1945 M Date Time Provider Department 12/17/24 SOPHIA GARAY [facility] During your visit today, we recorded the following information about you: Sophia Garay RN 12/17/2024 3:13 PM Signed Transitional Care Management (TCM) Follow-Up Note PCP Update / Actionable Items Virtualist Name of Virtualist: Nini Farley Urban Time paged: 3:12 pm Preferred contact number: [phone] Patient escalation symptom(s)/nursing assessment: low BP, lightheadedness, [...] and patient's preferred method of contact (telephone, Arideas, Edictive), your name, your contact number. Informed patient [...] - azelastine 0.1% nasal spray Use 1 Goddard in each nostril two times a day. - lisinopril-hydroCHLOROthiazide (ZESTORETIC) 10-12.5 mg per tablet Take 1 tablet by mouth once daily. - ergocalciferol 50,000 unit capsule (VITAMIN D2, DRISDOL) Take 1 capsule by mouth two times a week. TO BE TAKEN ORALLY DIRECTED. Take 1 tablet by mouth twice weekly [id number], then decrease to 1 tablet weekly. - [...] prostate with urinary (more content not included)... [facility] 12-11-2024 Note HNO ID: [id number] Author: AILIN PIERSON MD Service: ? Author [...] without lower ur (more content not included)... [facility] 12-11-2024 History of Present illness Narrative [...] no contrast required. - Referred patient to certified legal secretary specialist for ongoing monitoring and management. - [...] excuse any unintended typographical errors. Recording using New KCBX software for draft documentation of the visit was discussed with the patient/authorized manufacturer's service representative; all questions welcomed and answered. Patient/authorized manufacturer's service representative agreed to proceed Ailin Pierson MD documented in this encounter [facility] 12-11-2024 Instructions Ailin Pierson MD - 12/11/2024 [...] may need to follow up with a certified legal secretary specialist for further evaluation. For now, this [...] weed eater, or prolonged use of a data assistant to prevent strain. Let us know if you have any new or worsening symptoms. documented in this encounter [facility] 12-10-2024 Note HNO ID: [id number] Author: SOPHIA GARAY RN Service: ? Author [...] Garay RN December 10, 2024 3:17 PM [facility] 12-10-2024 History of Present illness Narrative [...] 2024 3:17 PM documented in this encounter [facility] 12-10-2024 Note Patient Outreach (AM [facility]) ZACHARY SHORT ([id number]) 1945 M Date Time Provider Department 12/10/24 [...] - azelastine 0.1% nasal spray Use 1 Goddard in each nostril two times a day. - lisinopril-hydroCHLOROthiazide (ZESTORETIC) 10-12.5 mg per tablet Take 1 tablet by mouth once daily. - ergocalciferol 50,000 unit capsule (VITAMIN D2, DRISDOL) Take 1 capsule by mouth two times a week. TO BE TAKEN ORALLY DIRECTED. Take 1 tablet by mouth twice weekly [id number], then decrease to 1 tablet weekly. - [...] Encounter Status:Closed by SOPHIA GARAY on 12/10/24 [facility] 12-03-2024 Note HNO ID: [id number] Author: JOSE HI MA Service: ? Author Type: Wood Barker Type: Progress Notes Filed: 12/03/2024 13:59 Note Text: POPULATION HEALTH NAVIGATION OUTREACH Action/FYI Readmission Risk= 17% High Risk: Please schedule with PCP within 7 days, please let pt know a follow up would be best to check BP and HR in the office. Thank you , Sophia Garay RN Patient discharged from [facility] Discharge date: 11/29/24 Admitted for: BPH with [...] Hospital Follow-up: High risk >15% 12/11/2024 in [facility] with GANTA, AILIN - [facility] - post op 4 weeks-ok by ANGELICA 01/09/2025 in [facility] with GANTA, AILIN - 3 mo follow up 04/10/2025 in [facility] with LAB [facility] - PSA 04/17/2025 in [facility] with FLORIAN HUFFMANUNG - 6MO/LABS 03/31* Navigation Signature: Jose Hi MA December 03, 2024 1:47 PM [facility] 12-03-2024 History of Present illness Narrative POPULATION HEALTH NAVIGATION OUTREACH Action/FYI Readmission Risk= 17% High Risk: Please schedule with PCP within 7 days, please let pt know a follow up would be best to check BP and HR in the office. Thank you , Sophia Garay RN Patient discharged from [facility] Discharge date: 11/29/24 Admitted for: BPH with [...] Hospital Follow-up: High risk >15% 12/11/2024 in [facility] with JASMEET PIERSONRA - Hospital Follow up 12/27/2024 in [facility] with JUAN BLANTON JR - post op 4 weeks-ok by ANGELICA 01/09/2025 in [facility] with AILIN PIERSON - 3 mo follow up 04/10/2025 in [facility] with LAB [facility] - PSA 04/17/2025 in [facility] with VINCE HUFFMAN - 6MO/LABS 03/31* [...] Home Visit Referral Source of Stratification: [facility] Hospital Admission Status: Discharged Readmission Risk Score: [...] up. Pt thanked PCC. Patient discharged from [facility] Discharge date: 11/29/24 Admitted for: BPH with obstruction/lower urinary symptoms Readmission Risk: 17% Value-Based Contract: ACO Contact: Contact made with patient: Yes Hi, my name is Sophia Garay RN and I am calling from the [facility] on behalf of your Primary Care Provider, [...] I will send your request to a cardiac cath rn who will contact and assist you with [...] 2024 11:30 AM documented in this encounter [facility] 12-03-2024 Note HNO ID: [id number] Author: SOPHIA GARAY RN Service: ? Author [...] up. Pt thanked PCC. Patient discharged from [facility] Discharge date: 11/29/24 Admitted for: BPH with obstruction/lower urinary symptoms Readmission Risk: 17% Value-Based Contract: ACO Contact: Contact made with patient: Yes Hi, my name is Sophia Garay RN and I am calling from the [facility] on behalf of your Primary Care Provider, [...] I will send your request to a cardiac cath rn who will contact and assist you with [...] Garay RN December 03, 2024 11:30 AM [facility] 12-03-2024 Note Patient Outreach (AM [facility]) HANZACHARY PATEL ([id number]) 1945 M Date Time Provider Department 12/03/24 [...] office. Thank you , [facility] Referral Source of Stratification: [facility] Hospital Admission Status: Discharged Readmission Risk Score: 17% Patient meets program referral criteria: No Patient does not qualify for High Risk TCM Home Visit program due to: Readmission Risk Score does not meet criteria Disposition: Patient does not qualify for [facility], will provide TCM outreach follow-up for 30-days [...] up. Pt thanked PCC. Patient discharged from [facility] Discharge date: 11/29/24 Admitted for: BPH with obstruction/lower urinary symptoms Readmission Risk: 17% Value-Based Contract: ACO Contact: Contact made with patient: Yes Hi, my name is Sophia Garay RN and I am calling from the [facility] on behalf of your Primary Care Provider, [...] I will send your request to a cardiac cath rn who will contact and assist you with [...] Action/FYI Readmission Risk= (more content not included)... [facility] 11-30-2024 Telephone encounter Note [facility] or 11/28/24 Fu with me 4 weeks [facility] 11-30-2024 Miscellaneous Notes [facility] or 11/28/24 Fu with me 4 weeks documented in this encounter [facility] 11-29-2024 Note HNO ID: [id number] Author: HARI JIMENEZ RN Service: Care Management [...] Current Advance Directive: Health Care Power of Assistant Associate Full Professor In Chart: Yes Up To Date and [...] to go home, General wellness, Less pain Bypro of Choice Explained: Bypro of Choice Given: No Reason Not Given: [...] DATE: November 29, 2024 TIME: 2:50 PM [facility] 11-29-2024 Note HNO ID: [id number] Author: ROCHELLE MEDRANO RN Service: ? Author Type: Registered Nurse Type: Progress Notes Filed: 11/29/2024 13:24 Note Text: Transitional Care Management (TCM) Inpatient Outreach N/A - No specialty updates needed Summary: Patient admitted to: [facility] Patient admitted on: (Not on file) Admitted for: BPH Contact made with patient: No, MyChart message sent. Outreach ended. Rochelle Medrano RN November 29, 2024 [facility] 11-29-2024 History of Present illness Narrative Transitional Care Management (TCM) Inpatient Outreach N/A - No specialty updates needed Summary: Patient admitted to: [facility] Patient admitted on: (Not on file) Admitted for: BPH Contact made with patient: No, MyChart message sent. Outreach ended. Rochelle Medrano RN November 29, 2024 documented in this encounter [facility] 11-29-2024 Note HNO ID: [id number] Author: JUAN BLANTON JR, MD Service: Urology [...] 07/17/2007 7.43 7.35 - 7.45 Final Specific [place], Ur Date Value Ref Range Status 10/23/2024 [...] - mahoney removed on rounds -please page glass scullion when pt voids - may consider EKG if HR lower on next vitals check -pt asymptomatic at this time -amoxicillin for home - anticipate home later today Neelam Lin MD PGY-3 Urology Resident [facility] 11-29-2024 Note Patient Outreach (AM [facility]) ZACHARY SHORT ([id number]) 1945 M Date Time Provider Department 11/29/24 ROCHELLE MEDRANO AMBWALTERG During your visit today, we recorded the following information about you: Rochelle Medrano RN 11/29/2024 1:24 PM Signed Transitional Care Management (TCM) Inpatient Outreach N/A - No specialty updates needed Summary: Patient admitted to: [facility] Patient admitted on: (Not on file) [...] - azelastine 0.1% nasal spray Use 1 Goddard in each nostril two times a day. - lisinopril-hydroCHLOROthiazide (ZESTORETIC) 10-12.5 mg per tablet Take 1 tablet by mouth once daily. - ergocalciferol 50,000 unit capsule (VITAMIN D2, DRISDOL) Take 1 capsule by mouth two times a week. TO BE TAKEN ORALLY DIRECTED. Take 1 tablet by mouth twice weekly [id number], then decrease to 1 tablet weekly. - [...] Encounter Status:Closed by ROCHELLE MEDRANO on 11/29/24 [facility] 11-28-2024 Note HNO ID: [id number] Author: GREGORY RAMIREZ, RN Service: Nursing Author Type: Registered Nurse Type: Nursing Progress Note Filed: 11/28/2024 14:08 Note Text: Dr. Salguero ok with transfer to floor. [facility] 11-28-2024 Note HNO ID: [id number] Author: LYLY THORPE APRN.BLOWER ROOM ATTENDANT Service: Anesthesiology Author Type: Nurse Tar Chaser Type: Anesthesia Procedure Notes Filed: 11/28/2024 10:50 Note Text: ANESTHESIOLOGY PROCEDURE NOTE Airway General Information Procedure Start Time/Medication Administration: 11/28/2024 10:11 AM Procedure End Time: 11/28/2024 10:12 AM Patient location during procedure: OR Consent Obtained: Yes Patient identity confirmed: arm band Staffing Anesthesiologist: Juan Salguero DO BLOWER ROOM ATTENDANT: Lyly Thorpe APRN.BLOWER ROOM ATTENDANT Performed by: BLOWER ROOM ATTENDANT Indications and Patient Condition Indications for airway management: anesthesia and airway protection Preoxygenated: yes anesthesia circuit Patient position: sniffing Method: asleep Manual In-Line Stabilization: No Final Airway Details Final airway type: supraglottic airway Number of attempts at approach: 1 Final Supraglottic Airway: i-gel Size 4 Seal Adequate: yes SIGNATURE: Lyly Thorpe APRN.BLOWER ROOM ATTENDANT PATIENT NAME: Zachary Short DATE: November 28, 2024 TIME: 10:49 AM CSN: [id number] [facility] 11-20-2024 Telephone encounter Note I do not think his cardiological finding will interfere with his urological treatment Regards, Ailin Pierson MD [facility] 11-20-2024 Miscellaneous Notes I do not think [...] Ailin Pierson MD documented in this encounter [facility] 11-20-2024 Telephone encounter Note Pt informed. Pt asking if result needs sent to DR Blanton [facility] urology? 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 Regards, Ailin Pierson MD [facility] 11-14-2024 Telephone encounter Note Called patient and LVM of scheduled echo appt. If patient calls back please let him know date and time of echo. . ThanksYordan [facility] 11-14-2024 Miscellaneous Notes Called patient and LVM of scheduled echo appt. If patient calls back please let him know date and time of echo. . Yordan Manriquez documented in this encounter [facility] 11-14-2024 History and physical note Images from [...] BMI 32 Pending ECHO from 10/10/2024 in [facility] ? Flagged for anesthesia review ANESTHESIA FINDINGS: [...] the planned procedure. HPI: Patient presents to [facility] for the preoperative exam for the above [...] fevers. Neurological: No history of TIA's, stroke, ANESTHESIA RESIDENT tumor, impaired sensorium, hemiplegia, paraplegia or quadraplegia. [...] Yes azelastine 0.1% nasal spray Use 1 Goddard in each nostril two times a day. Yes lisinopril-hydroCHLOROthiazide (ZESTORETIC) 10-12.5 mg per tablet Take 1 tablet by mouth once daily. Yes ergocalciferol 50,000 unit capsule (VITAMIN D2, DRISDOL) Take 1 capsule by mouth two times a week. TO BE TAKEN ORALLY DIRECTED. Take 1 tablet by mouth twice weekly [id number], then decrease to 1 tablet weekly. Yes [...] or any previous visit (from the past 58384 hours). ARISCAT risk index interpretation 0 to 25 points: Low risk: 1.6% pulmonary complication rate 26 to 44 points: Intermediate risk: 13.3% pulmonary complication rate 45 to 123 points: High risk: 42.1% pulmonary complication rate The Following Tests/Procedures Have Been Initiated: No orders in [facility] for PAT visit by surgeon Assessment/Plan BPH with obstruction/lower urinary tract symptoms [N40.1, N13.8] PLAN Planned Procedure: Procedure(s): CYSTOSCOPY, RESECTION PROSTATE TRANSURETHRAL (N/A) I spent a total of 59 minutes on the date of the service which included preparing to see the patient, [id number] patient care, completing clinical documentation, obtaining and/or [...] 14, 2024 TIME: 8:53 AM PAGER/CONTACT #: [facility] 11-14-2024 History and physical note Images from [...] BMI 32 Pending ECHO from 10/10/2024 in [facility] ? Flagged for anesthesia review ANESTHESIA FINDINGS: [...] the planned procedure. HPI: Patient presents to [facility] for the preoperative exam for the above [...] fevers. Neurological: No history of TIA's, stroke, ANESTHESIA RESIDENT tumor, impaired sensorium, hemiplegia, paraplegia or quadraplegia. [...] Yes azelastine 0.1% nasal spray Use 1 Goddard in each nostril two times a day. Yes lisinopril-hydroCHLOROthiazide (ZESTORETIC) 10-12.5 mg per tablet Take 1 tablet by mouth once daily. Yes ergocalciferol 50,000 unit capsule (VITAMIN D2, DRISDOL) Take 1 capsule by mouth two times a week. TO BE TAKEN ORALLY DIRECTED. Take 1 tablet by mouth twice weekly [id number], then decrease to 1 tablet weekly. Yes [...] or any previous visit (from the past 08802 hours). ARISCAT risk index interpretation 0 to 25 points: Low risk: 1.6% pulmonary complication rate 26 to 44 points: Intermediate risk: 13.3% pulmonary complication rate 45 to 123 points: High risk: 42.1% pulmonary complication rate The Following Tests/Procedures Have Been Initiated: No orders in [facility] for PAT visit by surgeon Assessment/Plan BPH with obstruction/lower urinary tract symptoms [N40.1, N13.8] PLAN Planned Procedure: Procedure(s): CYSTOSCOPY, RESECTION PROSTATE TRANSURETHRAL (N/A) I spent a total of 59 minutes on the date of the service which included preparing to see the patient, [id number] patient care, completing clinical documentation, obtaining and/or [...] AM PAGER/CONTACT #: documented in this encounter [facility] 11-14-2024 Note HNO ID: [id number] Author: NAVNEET TELLEZ APRN.CNP Service: ? Author Type: Nurse Practitioner Type: Progress Notes Filed: 11/14/2024 08:53 Note Text: RED DOT Patient has a pending ECHO but unsure why it hasn't been completed yet. Completed Radiation 3 weeks ago. He was told that the PAT department would take care of it CC ELMER please review with anesthesia regarding pending ECHO [facility] 11-14-2024 History of Present illness Narrative RED DOT Patient has a pending ECHO but unsure why it hasn't been completed yet. Completed Radiation 3 weeks ago. He was told that the PAT department would take care of it CC ELMER please review with anesthesia regarding pending ECHO documented in this encounter [facility] 11-08-2024 Instructions Navneet Tellez APRN.CNP - 11/08/2024 6:54 AM EDT PATIENT PREOPERATIVE INSTRUCTIONS Your surgeon has scheduled for your procedure at this surgery center: [facility]: [phone], [address], [place] [address] Please enter through the main entrance and proceed to the blue elevators. The surgery [facility] is located to the left of [...] surgery. - YOU MUST HAVE A RESPONSIBLE SHOTGUN SHELL ASSEMBLY MACHINE OPERATOR TAKE YOU HOME. A CLINICAL DATA ASSOCIATE, CAB OR UBER SHOTGUN SHELL ASSEMBLY MACHINE OPERATOR CANNOT BE MADE A RESPONSIBLE SHOTGUN SHELL ASSEMBLY MACHINE OPERATOR. - We recommend that a responsible person [...] the surgery center above. Visitors to any [facility] facility: An individual who is sick should [...] Advance Directive, please fax a copy to [phone] or Mellissa HUNT at [phone] or email to for it to be [...] MSN, ANP-C 11/14/24 documented in this encounter [facility] 11-05-2024 History of Present illness Narrative Zachary [...] Gregory Casarez RN documented in this encounter [facility] 11-05-2024 Note HNO ID: [id number] Author: GREGORY CASAREZ RN Service: ? Author [...] inner upper thigh daily. Gregory Casarez RN [facility] 10-23-2024 Telephone encounter Note Per Dr [...] was notified and prefers to go to [facility] and will do so now. Dr Blanton is now caring for pt as radiation is complete. [facility] 10-23-[address] Huffman, pt [...] was notified and prefers to go to [facility] and will do so now. Dr Blanton is now caring for pt as radiation is complete. documented in this encounter [facility] 10-15-2024 Note HNO ID: [id number] Author: ?, ?, ? Service: ? Author Type: ? Type: Progress Notes Filed: 10/18/2024 13:30 Note Text: I called and spoke to Zachary and scheduled him to have his PSA lab work done this week Tuesday10/17/24, he confirmed this date, time and location Ayah Jyotichema [facility] 10-15-2024 Note HNO ID: [id number] Author: VINCE HUFFMAN MD Service: ? Author [...] Time Spent: 10 minutes Vince Huffman MD [facility] 10-11-2024 History of Present illness Narrative [...] 45 mg IM left upper arm. Lot Number:[id number] Expiration date:10/2025 Patient tolerated well. FOLLOW UP: Next Dose: 6 months documented in this encounter [facility] 10-11-2024 Note HNO ID: [id number] Author: GREGORY CASAREZ RN Service: ? Author [...] 45 mg IM left upper arm. Lot Number:[id number] Expiration date:10/2025 Patient tolerated well. FOLLOW UP: Next Dose: 6 months [facility] 10-10-2024 Note HNO ID: [id number] Author: AILIN PIERSON MD Service: ? Author [...] feels is effective. He denies seeing a auto locator recently. Social History Tobacco Use Smoking status: [...] excuse any unintended typographical errors. Recording using New [employer] software for draft documentation of the visit was discussed with the patient/authorized manufacturer's service representative; all questions welcomed and answered. Patient/authorized manufacturer's service representative agreed to proceed Ailin Pierson MD [facility] 10-10-2024 History of Present illness Narrative [...] feels is effective. He denies seeing a auto locator recently. Social History Tobacco Use Smoking status: [...] excuse any unintended typographical errors. Recording using New [employer] software for draft documentation of the visit was discussed with the patient/authorized manufacturer's service representative; all questions welcomed and answered. Patient/authorized manufacturer's service representative agreed to proceed Ailin Pierson MD documented in this encounter [facility] 10-10-2024 Instructions Ailin Pierson MD - 10/10/2024 [...] I am not referring you to a auto locator to avoid unnecessary stress. We will review [...] or worsening symptoms. documented in this encounter [facility] 10-08-2024 History of Present illness Narrative Radiology [...] PATIENT PRESENTS WITH AN IMPLANTABLE OR ATTACHED MANAGER OF INTERNAL: No RADIOLOGY DEPARTMENT: Bone Density PERIPHERAL IV DATA: Not applicable SIGNED BY: RT Kylah(Sri) October 08, 2024 8:21 AM documented in this encounter [facility] 10-08-2024 Note HNO ID: [id number] Author: LUIS ANTONIO CHILD RT(R) Service: ? [...] PATIENT PRESENTS WITH AN IMPLANTABLE OR ATTACHED MANAGER OF INTERNAL: No RADIOLOGY DEPARTMENT: Bone Density PERIPHERAL IV DATA: Not applicable SIGNED BY: RT Kylah(R) October 08, 2024 8:21 AM [facility] 09-28-2024 Telephone encounter Note Patient advised per MGG-Urine cx + Abx sent Patient agreed, and verbalized understanding. Deanna Hogan MA [facility] 09-28-2024 Miscellaneous Notes Patient advised per MGG-Urine cx + Abx sent Patient agreed, and verbalized understanding. Deanna Hogan MA documented in this encounter [facility] 09-25-2024 Note HNO ID: [id number] Author: JUAN BLANTON JR, MD Service: ? [...] Date Value 08/28/2024 Negative 08/31/2011 Negative Specific [place], Ur (no units) Date Value 08/28/2024 1.015 [...] pain).Disp: Rfl: azelastine 0.1% nasal sprayUse 1 Goddard in each nostril two times a day.Disp: 30 mLRfl: 1 lisinopril-hydroCHLOROthiazide (ZESTORETIC) 10-12.5 mg per tabletTake 1 tablet by mouth once daily.Disp: 90 tabletRfl: 3 ergocalciferol 50,000 unit capsule (VITAMIN DR AquilinoISDOL)Take 1 capsule by mouth two times a week. TO BE TAKEN ORALLY DIRECTED. Take 1 tablet by mouth twice weekly p1cilvr, then decrease to 1 tablet weekly.Disp: 8 [...] Date Value 08/28/2024 Negative 08/31/2011 Negative Specific [place], Ur (no units) Date Value 08/28/2024 1.015 [...] pain).^Disp: ^Rfl: azelastine 0.1% nasal spray^Use 1 Goddard in each nostril two times a day.^Disp: 30 mL^Rfl: 1 lisinopril-hydroCHLOROthiazide (ZESTORETIC) 10-12.5 mg per tablet^Take 1 tablet by mouth once daily.^Disp: 90 tablet^Rfl: 3 ergocalciferol 50,000 unit capsule (VITAMIN D2, DRISDOL)^Take 1 capsule by mouth two times a week. TO BE TAKEN ORALLY DIRECTED. Take 1 tablet by mouth twice weekly a2szzdu, then decrease to 1 tablet weekly.^Disp: 8 [...] Jr, MD 09/25/2024 documented in this encounter [facility] 09-18-2024 Note HNO ID: [id number] Author: VINCE HUFFMAN MD Service: ? Author Type: Physician Type: Progress Notes Filed: 09/18/2024 14:30 Note Text: Radiation Oncology - On Treatment Review (OTR) Note PATIENT NAME: Zachary Short PATIENT DIAGNOSIS: Stage IIA, T1c cN0, prostate adenocarcinoma with Whittier score 7 (3+4), grade group 2, and [...] me in four weeks. Vince Huffman MD [facility] 09-18-2024 History of Present illness Narrative [...] Follow-up with me in four weeks. Vince Hufmfan MD Radiation Therapy - Nursing Note (OTV) PATIENT NAME: Zachary Short PATIENT September 18, 2024 [facility] FACILITY[facility]LOCATION: [facility] NOTE TYPE: PROSTATE - MALE PELVIS Subjective Data some diarrhea 2 times a day, afraid to take imodium Additional Data Do you want to see a Residential Housekeeper? No Status: Patient is male Stress Scale: On a scale of 0 to 10, what number best describes how much distress you have experienced in the past week?(0 being no distress and 10 being extreme distress) 2 Social work notified: Pt denied need to see social organization professor at this time. Nursing Assessment Fatigue: moderate; [...] Mali Fernández RN documented in this encounter [facility] 09-18-2024 Note HNO ID: [id number] Author: MALI FERNÁNDEZ RN Service: ? Author Type: Registered Nurse Type: Progress Notes Filed: 09/18/2024 14:20 Note Text: Written discharge instructions given and reviewed with patient. Patient verbalizes understanding. Encouraged to call with any questions or concerns. Instruction for 4 week phone call follow up appointment given by Dr. Huffman. [facility] 09-18-2024 History of Present illness Narrative Written discharge instructions given and reviewed with patient. Patient verbalizes understanding. Encouraged to call with any questions or concerns. Instruction for 4 week phone call follow up appointment given by Dr. Huffman. documented in this encounter [facility] 09-18-2024 Note HNO ID: [id number] Author: MALI FERNÁNDEZ RN Service: ? Author Type: Registered Nurse Type: Progress Notes Filed: 09/18/2024 14:30 Note Text: Radiation Therapy - Nursing Note (OTV) PATIENT NAME: Zachary Short PATIENT September 18, 2024 [facility] FACILITY[facility]LOCATION: [facility] NOTE TYPE: PROSTATE - MALE PELVIS Subjective Data some diarrhea 2 times a day, afraid to take imodium Additional Data Do you want to see a Residential Housekeeper? No Status: Patient is male Stress Scale: On a scale of 0 to 10, what number best describes how much distress you have experienced in the past week?(0 being no distress and 10 being extreme distress) 2 Social work notified: Pt denied need to see social organization professor at this time. Nursing Assessment Fatigue: moderate; [...] clear yellow. SIGNED by: Mali Fernández RN [facility] 09-18-2024 Note Education (RADTWS) HANZACHARY PATEL ([id number]) 1945 M Date Time Provider Department 09/18/24 [...] - azelastine 0.1% nasal spray Use 1 Goddard in each nostril two times a day. - lisinopril-hydroCHLOROthiazide (ZESTORETIC) 10-12.5 mg per tablet Take 1 tablet by mouth once daily. - tamsulosin (FLOMAX) 0.4 mg Take 1 capsule by mouth daily at bedtime. - ergocalciferol 50,000 unit capsule (VITAMIN D2, DRISDOL) Take 1 capsule by mouth two times a week. TO BE TAKEN ORALLY DIRECTED. Take 1 tablet by mouth twice weekly [id number], then decrease to 1 tablet weekly. - [...] Encounter Status:Closed by FERNÁNDEZMALI ADRIAN on 09/18/24 [facility] 09-18-2024 Note HNO ID: [id number] Author: VINCE HUFFMAN MD Service: Radiation Oncology Author Type: Physician Type: Progress Notes Filed: 09/21/2024 10:07 Note Text: ZACHARY SHORT [id number] : 1945 09/18/2024 [facility] Department of Radiation Oncology RADIATION ONCOLOGY - COMPLETION NOTE DATE OF SIMULATION: 08/02/24 DATES OF TREATMENT: 08/09/24 - 09/18/24 UNIT: [id number]_TRUEBEAM AREA TREATED: Prostate/pelvis/SV DISEASE: Stage IIA, T1c cN0, prostate adenocarcinoma with Whittier score 7 (3+4), grade group 2, and [...] by his urologist. Four week follow-up with ri. Staff Physician VINCE HUFFMAN M.D. / 0:07 AM Electronically Signed cc: Ailin Pierson [address] [place] [address] Juan Blanton [place] [id number] [place] [address] 09-11-2024 Note HNO ID: [id number] Author: VINCE HUFFMAN MD Service: ? Author Type: Physician Type: Progress Notes Filed: 09/11/2024 14:23 Note Text: Radiation Oncology - On Treatment Review (OTR) Note PATIENT NAME: Zachary Short PATIENT DIAGNOSIS: Stage IIA, T1c cN0, prostate adenocarcinoma with Whittier score 7 (3+4), grade group 2, and [...] radiation treatment as planned. Vince Huffman MD [facility] 09-11-2024 History of Present illness Narrative [...] NAME: Zachary Short PATIENT September 11, 2024 [facility] FACILITY[facility]LOCATION: [place] NURSING NOTE TYPE: PROSTATE - MALE PELVIS Subjective Data some fatigue, a little diarrhea has not taken imodium, seems to alternate with constipation Additional Data Do you want to see a Residential Housekeeper? No Status: Patient is male Stress Scale: On a scale of 0 to 10, what number best describes how much distress you have experienced in the past week?(0 being no distress and 10 being extreme distress) 3 Social work notified: Pt denied need to see social organization professor at this time. Nursing Assessment Fatigue: increased [...] Mali Fernández RN documented in this encounter [facility] 09-11-2024 Note HNO ID: [id number] Author: MALI FERNÁNDEZ RN Service: ? Author Type: Registered Nurse Type: Progress Notes Filed: 09/11/2024 14:23 Note Text: Radiation Therapy - Nursing Note (OTV) PATIENT NAME: Zachary Short PATIENT September 11, 2024 [facility]LOC[facility]: [place] NURSING NOTE TYPE: PROSTATE - MALE PELVIS Subjective Data some fatigue, a little diarrhea has not taken imodium, seems to alternate with constipation Additional Data Do you want to see a Residential Housekeeper? No Status: Patient is male Stress Scale: On a scale of 0 to 10, what number best describes how much distress you have experienced in the past week?(0 being no distress and 10 being extreme distress) 3 Social work notified: Pt denied need to see social organization professor at this time. Nursing Assessment Fatigue: increased [...] pale yellow. SIGNED by: Mali Fernández RN [facility] 09-04-2024 History of Present illness Narrative Radiation Oncology - On Treatment Review (OTR) Note PATIENT NAME: Zachary Short PATIENT DIAGNOSIS: Stage IIA, T1c cN0, prostate adenocarcinoma with Whittier score 7 (3+4), grade group 2, and [...] NAME: Zachary Short PATIENT September 04, 2024 [facility]: [place] NURSING NOTE TYPE: PROSTATE - MALE PELVIS Subjective Data has mahoney in, has finished Keflex has also finished pyridium Additional Data Do you want to see a Residential Housekeeper? No Status: Patient is male Stress Scale: On a scale of 0 to 10, what number best describes how much distress you have experienced in the past week?(0 being no distress and 10 being extreme distress) 0 Social work notified: Pt denied need to see social organization professor at this time. Nursing Assessment Fatigue: increased [...] Mali Fernández RN documented in this encounter [facility] 09-04-2024 Note HNO ID: [id number] Author: VINCE HUFFMAN MD Service: ? Author [...] radiation treatment as planned. Vince Huffman MD [facility] 09-04-2024 Note HNO ID: [id number] Author: MALI FERNÁNDEZ RN Service: ? Author Type: Registered Nurse Type: Progress Notes Filed: 09/04/2024 14:33 Note Text: Radiation Therapy - Nursing Note (OTV) PATIENT NAME: Zachary Short PATIENT September 04, 2024 [facility]: [facility] NOTE TYPE: PROSTATE - MALE PELVIS Subjective Data has mahoney in, has finished Keflex has also finished pyridium Additional Data Do you want to see a Residential Housekeeper? No Status: Patient is male Stress Scale: On a scale of 0 to 10, what number best describes how much distress you have experienced in the past week?(0 being no distress and 10 being extreme distress) 0 Social work notified: Pt denied need to see social organization professor at this time. Nursing Assessment Fatigue: increased [...] clear, /mahoney. SIGNED by: Mali Fernández RN [facility] 08-29-2024 Radiology Diagnostic study note [facility] [address] [place], [place] [id number] Abdomen/Pelvis without Cont MR#: [id number] Acct: [id number] Name: ZACHARY SHORT Rep #: [id number] : 1945 M 79 From: Bonny Austin MD PCP: Dr. Ailin Pierson MD Status: PRE E R Study:Abdomen/Pelvis without Cont Date of Exa m: 08/29/24 Exam# [id number] Ordering Dr: Leatha Fajardo DO PROCEDURE: ABDOMEN/PELVIS [...] 4. Additional description as above. Reading Location: [id number] CC: Dr. Ailin Pierson MD; Dr. Lamont Fajardo, DO ~ Managed Care Provider: Signed [facility] 08-29-2024 Telephone encounter Note Currently getting radiation [...] will check on him in the morning. [facility] 08-29-2024 Miscellaneous Notes Currently getting radiation for [...] in the morning. documented in this encounter [facility] 08-29-2024 Hospital Discharge instructions Additional Instructions Follow-up with your urologist within the next 7 to 10 days [facility] Work Phone: 08-28-2024 Note HNO ID: [id number] Author: SOLO BAKER MD Service: ? Author Type: Physician Type: Progress Notes Filed: 09/05/2024 12:31 Note Text: Radiation Therapy - Nursing Note (OTV) PATIENT NAME: Zachary Short PATIENT August 28, 2024 [facility]: [place] NURSING NOTE TYPE: PROSTATE - MALE PELVIS [...] Data Do you want to see a Residential Housekeeper? No Status: Patient is male Stress Scale: On a scale of 0 to 10, what number best describes how much distress you have experienced in the past week?(0 being no distress and 10 being extreme distress) 6 Social work notified: Pt denied need to see social organization professor at this time. Nursing Assessment Fatigue: none [...] or so., SIGNED by: Mali Fernández RN [facility] STAFF PHYSICAN NOTE OF PERSONAL INVOLVEMENT [...] continue XRT as planned. Solo Baker MD [facility] 08-28-2024 History of Present illness Narrative Radiation Therapy - Nursing Note (OTV) PATIENT NAME: Zachary Short PATIENT August 28, 2024 [facility]: [place] NURSING NOTE TYPE: PROSTATE - MALE PELVIS Subjective Data c/o pain in bladder area, pt history of self cath, but only does this first thing in am, thinks maybe should do more often Also reports his son saw someone for medical [employer] who gave son a mixture that he has tried once, this is in a vape form and does not think it is marijuana Additional Data Do you want to see a Residential Housekeeper? No Status: Patient is male Stress Scale: On a scale of 0 to 10, what number best describes how much distress you have experienced in the past week?(0 being no distress and 10 being extreme distress) 6 Social work notified: Pt denied need to see social organization professor at this time. Nursing Assessment Fatigue: none [...] Solo Baker MD documented in this encounter [facility] 08-28-2024 Note HNO ID: [id number] Author: AILIN PIERSON MD Service: ? Author [...] midline. OROPHARYNX: Li (more content not included)... [facility] 08-28-2024 History of Present illness Narrative [...] abnormal findings. Tests: - Prostate Biopsy: Adenocarcinoma, Whittier score 7, stage 2A. Assessment and Plan [...] patient consented to the use of ambient Intuc[employer] software for draft documentation of the visit consistent with [facility] s Notice of Privacy Practices. Ailin Pierson MD documented in this encounter [facility] 08-22-2024 Telephone encounter Note Called and left vox Patient is scheduled September 12, 2024 at 12:45 pm, [facility] location Thank timo Llamas [facility] 08-22-2024 Miscellaneous Notes Called and left vox Patient is scheduled September 12, 2024 at 12:45 pm, [facility] location Thank you Muriel Needs appt with me documented in this encounter [facility] 08-22-2024 Telephone encounter Note Needs appt with me [facility] 08-21-2024 Note HNO ID: [id number] Author: SAMEER RENDON MD Service: ? Author [...] NAME: Zachary Short PATIENT August 21, 2024 [facility]: [place] NURSING NOTE TYPE: PROSTATE - MALE PELVIS Subjective Data I'm feeling weaker. I'm cathing myself at 6-7 pm to help me emptying my bladder. I'm not getting any sleep d/t being up every hour at night time. Additional Data Do you want to see a Residential Housekeeper? No Status: Patient is male Stress Scale: On a scale of 0 to 10, what number best describes how much distress you have experienced in the past week?(0 being no distress and 10 being extreme distress) 0 Social work notified: Pt denied need to see social organization professor at this time. Nursing Assessment Fatigue: increased [...] at times. SIGNED by: Lavinia Blanca RN [facility] 08-21-2024 History of Present illness Narrative Radiation Oncology - On Treatment Review (OTR) Note PATIENT NAME: Zachary Short PATIENT DIAGNOSIS: Stage IIA, T1c cN0, prostate adenocarcinoma with Whittier score 7 (3+4), grade group 2, and [...] NAME: Zachary Short PATIENT August 21, 2024 [facility]: [place] NURSING NOTE TYPE: PROSTATE - MALE PELVIS Subjective Data I'm feeling weaker. I'm cathing myself at 6-7 pm to help me emptying my bladder. I'm not getting any sleep d/t being up every hour at night time. Additional Data Do you want to see a Residential Housekeeper? No Status: Patient is male Stress Scale: On a scale of 0 to 10, what number best describes how much distress you have experienced in the past week?(0 being no distress and 10 being extreme distress) 0 Social work notified: Pt denied need to see social organization professor at this time. Nursing Assessment Fatigue: increased [...] Lavinia Blanca RN documented in this encounter [facility] 08-14-2024 Note HNO ID: [id number] Author: VINCE HUFFMAN MD Service: ? Author Type: Physician Type: Progress Notes Filed: 08/14/2024 14:33 Note Text: Radiation Oncology - On Treatment Review (OTR) Note PATIENT NAME: Zachary Short PATIENT DIAGNOSIS: Stage IIA, T1c cN0, prostate adenocarcinoma with Whittier score 7 (3+4), grade group 2, and [...] radiation treatment as planned. Vince Huffman MD [facility] 08-14-2024 History of Present illness Narrative Radiation Oncology - On Treatment Review (OTR) Note PATIENT NAME: Zachary Short PATIENT DIAGNOSIS: Stage IIA, T1c cN0, prostate adenocarcinoma with Whittier score 7 (3+4), grade group 2, and [...] NAME: Zachary Short PATIENT August 14, 2024 [facility] NOTE TYPE: PROSTATE - MALE PELVIS Subjective Data no complaints so far with treatments Additional Data Do you want to see a Residential Housekeeper? No Status: Patient is male Stress Scale: On a scale of 0 to 10, what number best describes how much distress you have experienced in the past week?(0 being no distress and 10 being extreme distress) 5 Social work notified: Pt denied need to see social organization professor at this time. Nursing Assessment Fatigue: none [...] Mali Fernández RN documented in this encounter [facility] 08-14-2024 Note HNO ID: [id number] Author: MALI FERNÁNDEZ RN Service: ? Author Type: Registered Nurse Type: Progress Notes Filed: 08/14/2024 14:33 Note Text: Radiation Therapy - Nursing Note (OTV) PATIENT NAME: Zachary Short PATIENT August 14, 2024 [facility] NOTE TYPE: PROSTATE - MALE PELVIS Subjective Data no complaints so far with treatments Additional Data Do you want to see a Residential Housekeeper? No Status: Patient is male Stress Scale: On a scale of 0 to 10, what number best describes how much distress you have experienced in the past week?(0 being no distress and 10 being extreme distress) 5 Social work notified: Pt denied need to see social organization professor at this time. Nursing Assessment Fatigue: none [...] him comfortable/n/a. SIGNED by: Mali Fernández RN [facility] 08-02-2024 Note HNO ID: [id number] Author: POONAM RICE RN Service: ? Author Type: Registered Nurse Type: Progress Notes Filed: 08/02/2024 13:29 Note Text: Radiation Therapy - Patient Education Note PATIENT NAME: Zachary Short PATIENT August 02, 2024 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 Patient has an Onbody or Implanted device: No Signed by: Poonam Rice RN [facility] 08-02-2024 History of Present illness Narrative Radiation Therapy - Patient Education Note PATIENT NAME: Zachary Short PATIENT August 02, 2024 [facility]: [place] READINESS TO LEARN Cognitive Ability: Alert and [...] list, bowel handout, Bladder function, Fatigue, and [place] instructions, XRT sheet and Aquaphor handout. Referral (recommendation): None, Pt denied need for social work, van service, and transmission rebuilder. Patient has an Onbody or Implanted device: No Signed by: Poonam Rice RN documented in this encounter [facility] 08-02-2024 History of Present illness Narrative ZACHARY SHORT [id number] 08/02/2024 [facility] Department of Radiation Oncology [facility] RADIATION ONCOLOGY SIMULATION NOTE DATE OF SIMULATION: 08/02/2024 MACHINE: EyeEm Definition CT Simulator Diagnosis: Stage IIA, T1c cN0, prostate adenocarcinoma with Whittier score 7 (3+4), grade group 2, and [...] M.D./melida 59:15 AM documented in this encounter [facility] 08-02-2024 History of Present illness Narrative ZACHARY SHORT [id number] 08/02/2024 [facility] Department of Radiation Oncology Treatment Planning Note [...] M.D. 0:16 AM documented in this encounter [facility] 08-02-2024 Note HNO ID: [id number] Author: VINCE HUFFMAN MD Service: Radiation Oncology Author Type: Physician Type: Progress Notes Filed: 08/03/2024 09:15 Note Text: ZACHARY SHORT [id number] 08/02/2024 [facility] Department of Radiation Oncology [facility] RADIATION ONCOLOGY SIMULATION NOTE DATE OF [...] Electronically Signed Vince Huffman M.D./melida 59:15 AM [facility] 08-02-2024 Note HNO ID: [id number] Author: VINCE HUFFMAN MD Service: Radiation Oncology Author Type: Physician Type: Progress Notes Filed: 08/07/2024 10:16 Note Text: ZACHARY SHORT [id number] 08/02/2024 [facility] Department of Radiation Oncology Treatment Planning Note [...] Electronically Signed Vince Huffman M.D. 510:16 AM [facility] 08-01-2024 Telephone encounter Note Therapists will call him and schedule simulation. Thanks. [facility] Work Phone: 08-01-2024 Miscellaneous Notes Therapists will call him and schedule simulation. Thanks. Patient called asking when radiation treatments would be scheduled. documented in this encounter [facility] 08-01-2024 Telephone encounter Note Patient called asking when radiation treatments would be scheduled. [facility] Work Phone: 07-24-2024 Note HNO ID: [id number] Author: DESTINEE CLOUD RN Service: ? Author Type: Registered Nurse Type: Progress Notes Filed: 07/24/2024 10:37 Note Text: Patient needed prn ones at home that he usually is cathing daily. He states that Dr. Soto office also said they would help him out. [facility] 07-23-2024 Telephone encounter Note Spoke w pt and he is seeing urologist at [facility], I advised him to call them and get order for supplies. Kelvin Dowd [facility] 07-23-2024 Miscellaneous Notes Spoke w pt and he is seeing urologist at [facility], I advised him to call them and get order for supplies. Kelvin Dowd Patient called stating he has to cath every day and has 6 catheters left. He did receive some from [facility] when he was inpatient. They are called speedSendbloomth soft. they are 13 inches, 33 cm. lubricated. Patient is asking if this is something we can prescribe. Please advise. documented in this encounter [facility] 07-23-2024 Telephone encounter Note Patient called stating he has to cath every day and has 6 catheters left. He did receive some from [facility] when he was inpatient. They are called [employer]. they are 13 inches, 33 cm. lubricated. Patient is asking if this is something we can prescribe. Please advise. [facility] Work Phone: 07-20-2024 Telephone encounter Note Patient states that he transferred care to Dr. Soto last week and got the 3 month Eligard shot with him locally. When he was in [facility] when he fell and now is home he got established with him and going to continue care with him locally. If down the road he needs surgery or something else he might retrun, but for now seeing Augie in [place]. He thanks you for everything, and said tell Dr. Blanton thank you so much for everything. No need for Eligard here. [facility] 07-20-2024 Miscellaneous Notes Patient states that he transferred care to Dr. Soto last week and got the 3 month Eligard shot with him locally. When he was in [facility] when he fell and now is home he got established with him and going to continue care with him locally. If down the road he needs surgery or something else he might retrun, but for now seeing Augie in [place]. He thanks you for everything, and said [...] nursing - link documented in this encounter [facility] 2024 Telephone encounter Note I called and left a message about calling back and getting scheduled for this. When patient calls back please assist with Nurse Visit schedule. Let Clinical know so I can get a CAM Order for that date. [facility] 2024 Telephone encounter Note Images from the original note were not included. Juan Blanton Jr., MD to Rochelle Carter 07/19/24 10:22 AM Schedule 6 month eligard injection with nursing - link [facility] 07-16-2024 Note HNO ID: [id number] Author: DEE BOB RT(Sri) Service: ? Author Type: Senior System Operator Type: Progress Notes Filed: 07/16/2024 10:09 Note [...] PATIENT PRESENTS WITH AN IMPLANTABLE OR ATTACHED MANAGER OF INTERNAL: NA CREATININE: Creatinine Date Value Ref Range [...] TYPE: NM INJECT: PET/CT PSMA. 9.6 mCi [id number]. No other medications given.. ADMINISTRATION TIME: 931 PATIENT DISCHARGED TO: Ambulatory patient, left [place] department area. Is this a therapy: No A Diagnostic radioactive procedure has taken place, with no further precautions necessary other than routine body substance precautions. More information regarding radiation safety can be found using this link: [email or web address] [email or web address] SIGNATURE: RT Migel(R) PATIENT NAME: Zachary Short DATE: July 16, 2024 TIME: 10:08 AM PAGER/CONTACT #: [facility] 07-16-2024 History of Present illness Narrative RADIOLOGY [...] PATIENT PRESENTS WITH AN IMPLANTABLE OR ATTACHED MANAGER OF INTERNAL: NA CREATININE: Creatinine Date Value Ref Range [...] TYPE: NM INJECT: PET/CT PSMA. 9.6 mCi [id number]. No other medications given.. ADMINISTRATION TIME: 931 [...] AM PAGER/CONTACT #: documented in this encounter [facility] 07-03-2024 Note HNO ID: [id number] Author: VINCE HUFFMAN MD Service: ? Author [...] bedtime. azelastine 0.1% nasal spray Use 1 Goddard in each nostril two times a day. lisinopril-hydroCHLOROthiazide (ZESTORETIC) 10-12.5 mg per tablet Take 1 tablet by mouth once daily. tamsulosin (FLOMAX) 0.4 mg Take 1 capsule by mouth daily at bedtime. ergocalciferol 50,000 unit capsule (VITAMIN D2, DRISDOL) Take 1 capsule by mouth two times a week. TO BE TAKEN ORALLY DIRECTED. Take 1 tablet by mouth twice weekly [id number], then decrease to 1 tablet weekly. polyethylene [...] by: Vince Huffman MD cc: Ailin Pierson [address] [place] [address] [facility] 07-03-2024 History of Present illness Narrative Radiation Oncology - Follow Up Note PATIENT NAME: Zachary Short PATIENT DIAGNOSIS: Stage IIA, T1c cN0, prostate adenocarcinoma with Whittier score 7 (3+4), grade group 2, and [...] bedtime. azelastine 0.1% nasal spray Use 1 Goddard in each nostril two times a day. lisinopril-hydroCHLOROthiazide (ZESTORETIC) 10-12.5 mg per tablet Take 1 tablet by mouth once daily. tamsulosin (FLOMAX) 0.4 mg Take 1 capsule by mouth daily at bedtime. ergocalciferol 50,000 unit capsule (VITAMIN D2, DRISDOL) Take 1 capsule by mouth two times a week. TO BE TAKEN ORALLY DIRECTED. Take 1 tablet by mouth twice weekly [id number], then decrease to 1 tablet weekly. polyethylene [...] by: Vince Huffman MD cc: Ailin Pierson [address] [place] [phone] Radiation Therapy - Nursing Note (Follow-up) PATIENT NAME: Zachary Short PATIENT June 29, 2024 [facility]: [place] Reason for visit: Follow up to discuss [...] Data Do you want to see a Residential Housekeeper? No Nursing Assessment Fatigue: moderate; causing difficulty [...] Poonam Rice RN documented in this encounter [facility] 07-02-2024 Telephone encounter Note Pt called and is notified of providers message and instructions. Pt voices understanding. Hari Rodriguez RN [facility] 07-02-2024 Miscellaneous Notes Pt called and is notified of providers message and instructions. Pt voices understanding. Hari Rodriguez RN I sent some syrup for disruptive cough, but he needs to take tylenol for pain and fever, Can take otc delsym for congestions. RegardsAilin MD [facility] 06/26/24. Please review and advise. Carley Khan MA Patient calling in to see if he can get something called in for him, he is having Congestion, temp 99.5, can't sleep,and cough. Patient denies appiontment due to already having one at [facility] at 11 am today. Please review and advise. Susan Sher July 02, 2024 8:36 AM documented in this encounter [facility] 07-02-2024 Telephone encounter Note I sent some syrup for disruptive cough, but he needs to take tylenol for pain and fever, Can take otc delsym for congestions. Regards, Ailin Pierson MD [facility] 07-02-2024 Telephone encounter Note [facility] 06/26/24. Please review and advise. Carley Khan MA [facility] 07-02-2024 Telephone encounter Note Patient calling in to see if he can get something called in for him, he is having Congestion, temp 99.5, can't sleep,and cough. Patient denies appiontment due to already having one at [facility] at 11 am today. Please review and advise. Susan Sher July 02, 2024 8:36 AM [facility] 06-29-2024 Note HNO ID: [id number] Author: POONAM RICE RN Service: ? Author Type: Registered Nurse Type: Progress Notes Filed: 07/03/2024 10:55 Note Text: Radiation Therapy - Nursing Note (Follow-up) PATIENT NAME: Zachary Short PATIENT June 29, 2024 [facility] FACILITY/LOCATION: [place] Reason for visit: Follow up to discuss [...] Data Do you want to see a Residential Housekeeper? No Nursing Assessment Fatigue: moderate; causing difficulty [...] to bed. SIGNED by: Poonam Rice RN [facility] 06-28-2024 Telephone encounter Note Called and spoke to Zachary and updated patient. Patient planning on keeping appointment with Dr Huffman for tomorrow, patient son will accompany patient to appointment. Lea Hargrove LPN June 28, 2024 4:18 PM [facility] 06-28-2024 Miscellaneous Notes Called and spoke [...] Ailin Pierson MD documented in this encounter [facility] 06-28-2024 Telephone encounter Note Please call patient [...] keep that appointment Regards, Ailin Pierson MD [facility] 06-28-2024 Telephone encounter Note If he doesn't [...] you for brining up your concerns! Vince [facility] Work Phone: 06-28-2024 Telephone encounter Note Hi [...] his options. Thank you Ailin Pierson MD [facility] 06-28-2024 Telephone encounter Note Called and spoke to Martha with Dr Soto office (Urology) [facility]. Updated Martha, who will call patient to [...] their office. Faxed done. [place] office # [phone] Lea Hargrove LPN June 28, 2024 9:58 AM [facility] 06-28-2024 Miscellaneous Notes Called and spoke to Martha with Dr Soto office (Urology) [facility]. Updated Mratha, who will call patient to set up [...] their office. Faxed done. [place] office # [phone] Lea Hargrove LPN June 28, 2024 9:58 AM documented in this encounter [facility] 06-28-2024 Note HNO ID: [id number] Author: ?, ?, ? Service: ? Author Type: ? Type: Progress Notes Filed: 06/28/2024 09:44 Note Text: POPULATION HEALTH NAVIGATION OUTREACH Action/FYI [facility] [place] Support: Called pt to schedule an appt in Pain Management. Spoke w/ pt, Will call back later to schedule appt. Reason for Outreach Care Gap/HCC or Scheduling Wellness Visits Care Gaps due: N/A Patient Contacted: Spoke to patient/parent/or legal guardian Patient identified by name and : No Navigation Signature: Saud Chowdhury June 28, 2024 9:44 AM [facility] 06-28-2024 History of Present illness Narrative POPULATION HEALTH NAVIGATION OUTREACH Action/[facility] Support: Called pt to schedule an appt in Pain Management. Spoke w/ pt, Will call back later to schedule appt. Reason for Outreach Care Gap/HCC or Scheduling Wellness Visits Care Gaps due: N/A Patient Contacted: Spoke to patient/parent/or legal guardian Patient identified by name and : No Navigation Signature: Saud Chowdhury June 28, 2024 9:44 AM documented in this encounter [facility] 06-28-2024 Note Patient Outreach (NE TNAV) ZACHARY SHORT ([id number]) 1945 M Date Time Provider Department 06/28/24 NO PCP NETNAV During your visit today, we recorded the following information about you: Saud Chowdhury 06/28/2024 9:44 AM Signed POPULATION HEALTH NAVIGATION OUTREACH Action/[facility] Support: Called pt to schedule an appt [...] - azelastine 0.1% nasal spray Use 1 Goddard in each nostril two times a day. - lisinopril-hydroCHLOROthiazide (ZESTORETIC) 10-12.5 mg per tablet Take 1 tablet by mouth once daily. - tamsulosin (FLOMAX) 0.4 mg Take 1 capsule by mouth daily at bedtime. - ergocalciferol 50,000 unit capsule (VITAMIN D2, DRISDOL) Take 1 capsule by mouth two times a week. TO BE TAKEN ORALLY DIRECTED. Take 1 tablet by mouth twice weekly [id number], then decrease to 1 tablet weekly. - [...] Encounter Status:Closed by SAUD CHOWDHURY on 06/28/24 [facility] 06-27-2024 Telephone encounter Note I called and spoke to Zachary and scheduled him to come in this week Tuesday06/29/24 @ 11:00 am, patient confirmed this date & time Ayah Hassan [facility] 06-27-2024 Miscellaneous Notes I called and spoke [...] Blanton's office - Juan Blanton Jr., MD [facility] Clinical Pool Psa 17.31 Recommend fu with rad/onc Patient informed. He was told to call Dr. Huffman's office to set up a follow up but wanted to keep his appointment with Dr. Blanton on 07/24/24. Mayi Stallings MA Clinical, please advise. Do we call and set up consult after 07/24? documented in this encounter [facility] 06-27-2024 Telephone encounter Note Images from the original note were not included. Unscheduled order from yesterday- Dr. Pierson. Please note telephone encounter from Dr. Blanton's office. order from PCP- Prostate Cancer, ref prov Dr. Pierson. Message from Dr. Blanton's office - Juan Blanton Jr., MD [facility] Clinical Pool Psa 17.31 Recommend fu with rad/onc Patient informed. He was told to call Dr. Huffman's office to set up a follow up but wanted to keep his appointment with Dr. Blanton on 07/24/24. Mayi Stallings MA Clinical, please advise. Do we call and set up consult after 07/24? [facility] Work Phone: 06-26-2024 Note HNO ID: [id number] Author: AILIN PIERSON MD Service: ? Author [...] 19, 2024 to June 21, 2024 at [facility]. 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 He was admitted for a couple days and was adequately given pain relief and DVT prophylaxis and discharged. Prior to this he was admitted in April at [facility] for tripping and falling out of the [...] complaints, including dysu (more content not included)... [facility] 06-26-2024 History of Present illness Narrative [...] 19, 2024 to June 21, 2024 at [facility]. 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 He was admitted for a couple days and was adequately given pain relief and DVT prophylaxis and discharged. Prior to this he was admitted in April at [facility] for tripping and falling out of the [...] Ailin Pierson MD documented in this encounter [facility] 06-26-2024 Telephone encounter Note Images from the original note were not included. Juan Blanton Jr., MD P [facility] Exchange Clinical Pool Psa 17.31 Recommend fu with rad/onc Patient informed. He was told to call Dr. Huffman's office to set up a follow up but wanted to keep his appointment with Dr. Blanton on 07/24/24. Mayi Stallings MA [facility] 06-26-2024 Miscellaneous Notes Images from the original note were not included. Juan Blanton Jr., MD [facility] Clinical Pool Psa 17.31 Recommend fu with rad/onc Patient informed. He was told to call Dr. Huffman's office to set up a follow up but wanted to keep his appointment with Dr. Blanton on 07/24/24. Mayi Stallings MA documented in this encounter [facility] 06-21-2024 Note [facility] Medical Records Department [address] [place] [address] Discharge Summary 06/21/24 1423 MR#: [id number] Acct: [id number] Name: ZACHARY SHORT Rep #: [id number] : 1945 78 From: Itzel Randle MD PCP: Dr. Ailin Pierson MD Status:ADM VASU Location: [place] [address] Providers Date of Admission: 06/19/24 Date of [...] in the ED were BP of 109/75, ID of 75, RR of 16 and oxygen [...] patch. He wor (more content not included)... [facility] 05-31-2024 History of Present illness Narrative Patient [...] new difficulties occur. documented in this encounter [facility] 05-31-2024 Note HNO ID: [id number] Author: GREGORY CASAREZ RN Service: ? Author [...] contact office if any new difficulties occur. [facility] 05-25-2024 Telephone encounter Note Left message on voicemail to let us know if he needs anymore. [facility] 05-25-2024 Miscellaneous Notes Left message on voicemail to let us know if he needs anymore. I will put 10 14fr coude self caths at our front desk auxiliary. [facility] Special[facility] [address] [facility] 2nd floor middle desk. SonArnoldo notified and [...] He is hoping to get discharged from [facility] today but doesn't have that many catheters til the Nurse visit on 05-31-2024. Anyway to get some #14 Coude catheter samples from [place] office to get him til 05-31-2024? As he is there, if not he will have son try and drive to [place] to get. documented in this encounter [facility] 05-24-2024 Telephone encounter Note I will put 10 14fr coude self caths at our front desk auxiliary. [facility] Specialty Center [address] [facility] 2nd floor middle desk. SonArnoldo notified and they will have them picked up tomorrow. Ninfa Patel MA [facility] 05-24-2024 Telephone encounter Note Spoke with patient and we will touch based tomorrow if son needs to come here or if they ordered for him before leaving the Hospital. [facility] 05-24-2024 Note [facility] Medical Records Department [address] [place] [address] Discharge Summary 05/24/24 1445 MR#: [id number] Acct: [id number] Name: ZACHARY SHORT Rep #: [id number] : 1945 78 From: Brayden Gaona DO PCP: Dr. Ailin Pierson MD Status:DIS IN [id number] Prov[facility] Date of Admission: 05/22/24 Date of [...] was seen in the emergency room at [facility] for generalized weakness and a fall from [...] Culture - Final (more content not included)... [facility] 05-24-2024 Telephone encounter Note Patient saw Sarah Ware on 05-16-2024 and passed Voiding trial and was given some #14 BD Coude catheters to go home and straight cath prn. He ended up falling at home and was on the floor for 18 hours until he got help. He is hoping to get discharged from [facility] today but doesn't have that many catheters til the Nurse visit on 05-31-2024. Anyway to get some #14 Coude catheter samples from [place] office to get him til 05-31-2024? As he is there, if not he will have son try and drive to [place] to get. [facility] 05-22-2024 Evaluation note Diagnosis Onset Date Resolution [...] 11:44am Fracture, ribs inactive June 192024 11:44am [facility] Work Phone: [phone] Instructions* Patient Instructions* Sarah Ware APRN.MARITO - 05/16/2024 10:46 AM EST self cath as needed documented in this encounterUniversity Hospitals [facility]12-18-2024 NoteHNO ID: [id number] Author: SARAH WARE APRN.CNP Service: ? Author [...] lower back pain, he presented to the [place] ER on 05/09/2024. Treated with pain medication? 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 [...] Take 1 tablet by mouth twice weekly [id number], then decrease to 1 tablet weekly. 8 [...] LAB RESULTS REVIEWED: Yes (more content not included)...[facility]12-18-2024 History of Present illness Narrative* Sarah Ware APRN.[facility] - 05/16/2024 10:13 AM EST Zachary [...] lower back pain, he presented to the [place] ER on 05/09/2024. Treated with pain medication? 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 [...] Take 1 tablet by mouth twice weekly [id number], then decrease to 1 tablet weekly. 8 [...] weeks. Sarah Ware APRN.MARITO documented in this encounterUniversity Hospitals [facility]12-16-2024 Telephone encounter Note * Telephone Encounter - Roxana Reza MA - 05/14/2024 2:35 PM EST Referral faxed as requested. [facility]12-16-2024 Miscellaneous Notes* Telephone Encounter - Roxana Reza [...] send referral to Dr. Soto, urology at [facility]. * Telephone Encounter - Hari Rodriguez RN [...] called in and reports he was in [facility] ER on Tuesday and they placed a [...] or just go to Urology. He said [facility] ER was telling him to see Dr Soto. Pt sates he has seen Dat KOHLER here and he isn't 'overjoyed' with him, the Pt said he isn't aggressive enough. The Pt was askingif we had another urologist here at [facility] and I told him we had [...] Please call and advise. documented in this encounterUniversity Hospitals [facility]12-16-2024 Telephone encounter Note * Telephone Encounter - Kayla Betancourt APRN.CNP - 05/14/2024 12:26 PM EST Order placed. Please fax as requested and update patient. Thank you Kayla Betancourt APRN.CNP [facility]12-16-2024 Telephone encounter Note* Telephone Encounter - Gildardo Wade RN - 05/14/2024 11:48 AM EST Pt returned call. Pt asking provider to send referral to Dr. Soto, urology at [facility]. [facility]12-16-2024 Telephone encounter Note* Telephone Encounter - Hari Rodriguez RN - 05/14/2024 11:25 AM EST Called and left a voicemail for the Patient to call back and ask for a nurse to receive the providers message. Hari Rodriguez RN [facility]12-16-2024 Telephone encounter Note* Telephone Encounter - Kayla Betancourt APRN.CNP - 05/14/2024 9:41 AM EST He needs to see urology. Please let us know who to send consult to? Thank you Kayla Betancourt APRN.CNP [address]16-2024 Telephone encounter Note* Telephone Encounter - Hari Rodriguez RN - 05/14/2024 8:38 AM EST Pt called in and reports he was in [facility] ER on Tuesday and they placed a [...] or just go to Urology. He said [facility] ER was telling him to see Dr Soto. Pt sates he has seen Dat KOHLER here and he isn't 'overjoyed' with him, the Pt said he isn't aggressive enough. The Pt was askingif we had another urologist here at [facility] and I told him we had [...] would be urology. Please call and advise. [facility]11-27-2024 Telephone encounter Note* Telephone Encounter - Mali Saenz LPN - 04/25/2024 9:49 AM EST Rec'd approval from [facility] from 04/23/24 until further notice. Pharmacy notified [facility]11-27-2024 Miscellaneous Notes* Telephone Encounter - Mali Saenz LPN - 04/25/2024 9:49 AM EST Rec'd approval from [facility] from 04/23/24 until further notice. Pharmacy notified * Telephone Encounter - Mali Saenz LPN - 04/24/2024 9:37 AM EST Unable to complete PA electronically. Did complete via covermymeds ZACHARY HAN ([place]: [id number]) PA Rx #: [id number] Need Help? Call us at Status sent iconSent to Plan today Drug Ramelteon 8MG tablets ePA cloud logo Form [employer] Electronic Prior Authorization Request Form (2017 [facility]) Original Claim Info 569,MR IF LEVEL OF CARE CHANGE CALL HELP DESKCLOSED FORM. For RxLocal Coupon Manuel of: $58.34 submit to BIN: [id number] PCN: CP Group: COUPON --Service provided at no cost and no switch fee to the pharmacy-- documented in this encounterUniversity Hospitals [facility]11-26-2024 Telephone encounter Note * Telephone Encounter - Mali Saenz LPN - 04/24/2024 9:37 AM EST Unable to complete PA electronically. Did complete via covermymeds ZACHARY HAN ([place]: [id number]) PA Rx #: [id number] Need Help? Call us at Status sent iconSent to Plan today Drug Ramelteon 8MG tablets ePA cloud logo Form [employer] Electronic Prior Authorization Request Form (2017 [facility]) Original Claim Info 569,MR IF LEVEL OF CARE CHANGE CALL HELP DESKCLOSED FORM. For RxLocal Coupon Manuel of: $58.34 submit to BIN: [id number] PCN: JAMI Group: COUPON --Service provided at no cost and no switch fee to the pharmacy-- [facility]11-25-2024 History of Present illness Narrative* Ailin Pierson [...] was [address], and is going to [employer]. He used to spend a lot more time there than now. Enjoys spending time with his sons. 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 That keeps him interested and occupied. [...] counseling Ailin Pierson MD documented in this encounterUniversity Hospitals Samaritan Medical Center11-25-2024 NoteHNO ID: [id number] Author: AILIN PIERSON MD Service: ? Author [...] shoulder, obesity, rosacea. Prostate cancer: High grade Whittier score of 7. NM study did not [...] exposure: Never Smokeless toba (more content not included)...[facility] 04-16-2024 Telephone encounter Note* Telephone Encounter - Kayla Betancourt APRN.CNP - 04/16/2024 12:49 PM EST Fasting blood work ordered Thank you Kayla Betancourt APRN.CNP [facility]11-18-2024 Miscellaneous Notes* Telephone Encounter - Kayla Betancourt APRN.CNP - 04/16/2024 12:49 PM EST Fasting blood work ordered Thank you Kayla Betancourt APRN.CNP * Telephone Encounter - Florence Goldberg RN - 04/16/2024 12:17 PM EST Patient calls and is asking if provider wants him to get labs done prior to medicare wellness visiton 04/23/2024. Please review and advise, Florence Goldberg RN documented in this encounterUniversity Hospitals Samaritan Medical Center11-18-2024 Telephone encounter Note * Telephone Encounter - [...] Goldberg RN April 16, 2024 12:23 PM [facility]11-18-2024 Miscellaneous Notes* Telephone Encounter - Florence Goldberg [...] 16, 2024 12:23 PM documented in this encounterUniversity Hospitals Samaritan [facility] Center11-18-2024 Telephone encounter Note * Telephone Encounter - Florence Goldberg RN - 04/16/2024 12:17 PM EST Patient calls and is asking if provider wants him to get labs done prior to medicare wellness visiton 04/23/2024. Please review and advise, Florence Goldberg RN [facility]11-12-2024 NotePatient Outreach (INTMMN) ZACHARY SHORT ([id number]) 1945 M Date Time Provider Department 04/10/24 AILIN PIERSON INTROHIT During your visit today, we recorded the following information about you: Allergies As of Date: 04/10/2024 (No Known Allergies) Date Reviewed: 01/05/2024 Reviewed by: Poonam Rice RN - Fully Assessed Visit Diagnosis:Medication management [Z79.899] Order(s):COMPLETE BLOOD COUNT [SQCBC] Order #: [id number] FUTURE Prescriptions as of 04/13/2024 - ergocalciferol 50,000 unit capsule (VITAMIN D2, DRISDOL) Take 1 capsule by mouth two times a week. TO BE TAKEN ORALLY DIRECTED. Take 1 tablet by mouth twice weekly e4rthfk, then decrease to 1 tablet weekly. - [...] 11/29/2023 Encounter Status:Closed by ETTA WOLFE on 04/13/24[facility] 01-11-2024 Telephone encounter Note* Telephone Encounter [...] his mind about this.Dr Huffman made aware. [facility]08-14-2024 Miscellaneous Notes* Telephone Encounter - Mali Fernández [...] this.Dr Huffman made aware. documented in this encounterUniversity Hospitals Samaritan Medical Center08-08-2024 Nurse Note* Poonam Rice RN - 01/05/2024 9:30 AM EDT Radiation Therapy - Nursing Note (Consult) PATIENT NAME: Zachary Short PATIENT January 05, 2024 [facility] FACILITY/LOCATION: [place] Chief Complaint: consult Reason for visit: Consult. Referring physician: Internal provider Dr Blanton Subjective Data: no complaints Additional Data Do you want to see a Residential Housekeeper? No Are you interested in information about fertility? No Status: Patient is male Stress Scale: On a scale of 0 to 10, what number best describes how much distress you have experienced in the past week?(0 being no distress and 10 being extreme distress) 2 Social work notified: unknown SIGNED by: Poonam Rice RN [facility]08-08-2024 Nurse Note* Poonam Rice RN - 01/05/2024 9:30 AM EDT Radiation Therapy - Nursing Note (Consult) PATIENT NAME: Zachary Short PATIENT January 05, 2024 [facility] FACILITY[facility]LOCATION: [place] Chief Complaint: consult Reason for visit: Consult. Referring physician: Internal provider Dr Blanton Subjective Data: no complaints Additional Data Do you want to see a Residential Housekeeper? No Are you interested in information about fertility? No Status: Patient is male Stress Scale: On a scale of 0 to 10, what number best describes how much distress you have experienced in the past week?(0 being no distress and 10 being extreme distress) 2 Social work notified: unknown SIGNED by: Poonam Rice RN documented in this encounterUniversity Hospitals Samaritan Medical Center08-08-2024 History of Present illness Narrative* Vince Huffman MD - 01/05/2024 9:14 AM EDT Radiation Oncology - New Patient/Consult Note PATIENT NAME: Zachary Short PATIENT REQUESTING PROVIDER: Dr. Juan Blanton Jr [...] prostate on 11/21/23 showed prostatic adenocarcinoma with Whittier score 7 (3+4), grade group 2. Biopsy [...] Take 1 tablet by mouth twice weekly [id number], then decrease to 1 tablet weekly. naproxen [...] stage IIA, T1c cN0, prostate adenocarcinoma with Whittier score 7 (3+4), grade group 2, and [...] by: Vince Huffman MD cc: Ailin Pierson [address] [place] [address] Juan Blanton [facility] [id number] documented in this encounterUniversity Hospitals Samaritan [facility] Center08-07-2024 Telephone encounter Note * Telephone Encounter - Gregory Casarez RN - 01/04/2024 3:40 PM EDT Called patient back and answered his questions. Patient states he will see oncologist tomorrow and will call back if he needs to come back to office. Patient aware he will need PSA and return in 6 months [facility]08-07-2024 Miscellaneous Notes* Telephone Encounter - Gregory Casarez [...] questions about yesterday's office visit. Please call [phone] or [phone]. documented in this encounterUniversity Hospitals Samaritan Medical Center08-07-2024 Telephone encounter Note * Telephone Encounter - Rochelle Diana - 01/04/2024 3:06 PM EDT PT is requesting a return call. He has follow up questions about yesterday's office visit. Please call [phone] or [phone]. [facility]08-06-2024 History of Present illness Narrative* Juan Blanton [...] (no units) Date Value 08/31/2011 Negative Specific [place], Ur (no units) Date Value 08/31/2011 1.020 [...] Take 1 tablet by mouth twice weekly [id number], then decrease to 1 tablet weekly. naproxen [...] Blanton Jr, MD 01/03/2024 documented in this encounterUniversity Hospitals [facility]08-02-[facility]24 Telephone encounter Note * Telephone Encounter - Linda Fong LPN - 12/30/2023 1:21 PM EDT Patient returned call and went over results, notes from Dr Pierson with understanding. Aware rx sent to pharmacy. [facility]08-[facility] Miscellaneous Notes* Telephone Encounter - Linda Fong [...] Regards, Ailin Pierson MD documented in this encounterUniversity Hospitals [facility]08-02-2024 Telephone encounter Note * Telephone Encounter - Hari Rodriguez RN - 12/30/2023 1:17 PM EDT Called and left a voicemail for the Patient to call back and ask for a nurse to receive the providers message. Hari Rodriguez RN [facility]08-02-2024 Telephone encounter Note* Telephone Encounter - Ailin Pierson MD - 12/30/2023 12:51 PM EDT Please inform patient of very low vitamin d levels, We are giving her replacement doses, sent to her regular pharmacy. This might help in the overall mood and energy. He needs to take it immediately after eating. Vit b12 levels are normal Regards, Ailin Pierson MD [facility]08-01-2024 History of Present illness Narrative* Ailin Pierson [...] Wt 114.6 kg (252 lb 9.6 oz) [id number]% BMI 31.41 kg/m General appearance: Well appearing, [...] 185, ICD10: C61 (primary diagnosis) -40 minutes [id number] was spent with the patient in counseling him, understanding his goals and values and getting him prepared for what is to come next. I also gave him options because he does not want to travel too far. He wanted to stick to [place]. To be given local options. Clarified some [...] exercise Ailin Pierson MD documented in this encounterUniversity Hospitals [facility]07-12-2024 History of Present illness Narrative* Juan Hyde [...] PATIENT PRESENTS WITH AN IMPLANTABLE OR ATTACHED MANAGER OF INTERNAL: No CREATININE: Creatinine Date Value Ref Range [...] 9:54 AM PAGER/CONTACT #: documented in this encounterUniversity Hospitals [facility]07-09-2024 History of Present illness Narrative* Juan Blanton [...] (no units) Date Value 08/31/2011 Negative Specific [place], Ur (no units) Date Value 08/31/2011 1.020 [...] Blanton Jr, MD 12/06/2023 documented in this encounterUniversity Hospitals [facility]05-14-2024 History of Present illness Narrative* Juan Blanton [...] (no units) Date Value 08/31/2011 Negative Specific [place], Ur (no units) Date Value 08/31/2011 1.020 [...] Blanton Jr, MD 10/11/2023 documented in this encounterUniversity Hospitals [facility]05-01-2024 Instructions* Patient Instructions* Kayla Betancourt APRN.CNP - 09/28/2023 10:05 AM EDT Take miralax daily for the next 3-5 days until you have a soft regular bowel movement. Hold for liquid stool. Can take melatonin for sleep if needed. Start with low dose like 2.5mg. documented in this encounterUniversity Hospitals [facility]05-01-2024 History of Present illness Narrative* Kayla Betancourt [...] plan. Kayla Betancourt APRN.CNP documented in this encounterUniversity Hospitals Sam[facility]04-25-2024 History of Present illness Narrative* Juan Muniz [...] PATIENT PRESENTS WITH AN IMPLANTABLE OR ATTACHED MANAGER OF INTERNAL: No ALLERGIES: Reviewed and unchanged CONTRAST ALLERGY: NO. EXAM: MRI - CONTRAST TYPE: GROUP II PERIPHERAL IV DATA: Ambulatory: A peripheral IV was started in the Left antecubital site with a Angio cath: 22 gauge. RADIOLOGY DEPARTMENT: MR; Exam(s) Completed: Body: Prostate SIGNATURE: RT Mckenna(R) PATIENT NAME: Zachary Short DATE: September 22, 2023 TIME: 10:43 AM documented in this encounterUniversity Hospitals [facility]02-21-2024 History of Present illness Narrative* Juan Blanton [...] (no units) Date Value 08/31/2011 Negative Specific [place], Ur (no units) Date Value 08/31/2011 1.020 [...] Blanton Jr, MD 07/20/2023 documented in this encounterUniversity Hospitals [facility] Center02-09-2024 Miscellaneous Notes* Telephone Encounter - Destinee Cloud RN - 07/08/2023 11:05 AM EST Responded in My chart. * Telephone Encounter - Rochelle Schwartz - 07/08/2023 10:51 AM EST Pt called asking if he should do his lab before his 07/19/[address] Blanton or if he should wait until July closer to when they are due? documented in this encounterUniversity Hospitals Sam[facility]12-21-2023 Miscellaneous Notes* Telephone Encounter - Ninfa Lopez [...] to be re-evaluated. Thank you Kayla Betancourt APRN.HARD METALS HAND ENGRAVER * Telephone Encounter - Jo Branham LPN - 05/18/2023 9:55 AM EST Pt was referred to urology - JOSE F Jones who then referred pt to [...] 07/19/23. Jo Branham LPN documented in this encounterUniversity Hospitals [facility]12-05-2023 Miscellaneous Notes* Telephone Encounter - Destinee Cloud [...] results. Please advise, thanks! documented in this encounterUniversity Hospitals Samar[facility] Center11-21-2023 Nurse Note* Marcus Goldberg Ma - 04/19/2023 [...] 07/17/2007 7.43 7.35 - 7.45 Final Specific [place], Ur Date Value Ref Range Status 08/31/2011 [...] management will be instituted. documented in this encounterUniversity Hospitals Sam[facility] Center11-21-2023 Procedure note* Juan Blanton Jr., MD - [...] Juan Blanton Jr, MD documented in this encounterUniversity Hospitals Sam[facility] Center11-03-2023 Miscellaneous Notes* Telephone Encounter - Destinee Cloud [...] Anti-Inflammatory Drugs) Aleve (Naproxen) Fish Oil Pepto-Bismol [place] Gingko [place] Persantine (Dipyridamole) Anacin Glucosamine Chondroitin [...] purchased at the pharmacy of your choice. Sinker Puller:Recommended but not mandatory. For questions contact: [facility] Urology Nurse Line @ [phone] After hours, call answering service @ [phone] documented in this encounterUniversity Hospitals Samar[facility] Center11-02-2023 Miscellaneous Notes* Telephone Encounter - Alexandrea Daniel - 03/31/2023 8:01 AM EDT Pt confirmed prostate bx @ [place] with Dr. Blanton 04/19/23 @ 10:30 am. He will check with his doctor re: blood thinners. Ref by Jacqueline Jones. [email or web address] * Telephone Encounter - Nithya Rosales LPN [...] TAYLOR Estrada, LAM, ALICIA documented in this encounterUniversity Hospitals Samar[facility] Center11-01-2023 Miscellaneous Notes* Telephone Encounter - Roxana Reza Ma - 03/30/2023 1:15 PM EDT Results gone over in OV today. * Telephone Encounter - Roxana Reza Ma - 03/30/2023 1:15 PM EDT ----- Message from Kayla Betancourt APRN.HARD METALS HAND ENGRAVER sent at 03/30/2023 11:45 AM EDT ----- Please let patient know his blood work, outside of PSA, was all within acceptable ranges Thank you Kayla Betancourt APRN.HARD METALS HAND ENGRAVER documented in this encounterUniversity Hospitals Sam[facility] Center10-31-2023 History of Present illness Narrative* Dat Jones PA-C - 03/29/2023 3:19 PM EDT Images from the original note were not included. [facility] ESTABLISHED PATIENT CLINIC NOTE [...] now for an appointment with Dat Jones, [facility], [place], PA-COV. Procedure: Explained procedure to patient and verbalizes understanding. Performed a PVR. Patient urinated and instructed to empty bladder as much as possible just prior to having PVR done using bladder ultrasound scanner. Results of scan: 426 mL The patient tolerated the procedure well. Plan: Appointment with Dat. documented in this encounterUniversity Hospitals [facility] Center10-26-2023 Miscellaneous Notes* Telephone Encounter - Maritza Vivar RN - 03/24/2023 12:37 PM EDT Pt notified lab orders are in and to be fasting for 12 hours before. * Telephone Encounter - Kayla Betancourt APRN.CNP - 03/24/2023 12:28 PM EDT Fasting blood work orders placed. Thank you Kayla Betancourt APRN.HARD METALS HAND ENGRAVER * Telephone Encounter - Florence Goldberg RN - 03/24/2023 9:51 AM EDT Patient calls and states that he has annual appointment with provider on 03/30/2023 and would like to get labs done prior to appointment. Patient asking if provider would place lab orders? Please review and advise, Florence Goldberg RN documented in this encounterUniversity Hospitals [facility] Center10-26-2023 Miscellaneous Notes* Telephone Encounter - Alexus Reagan [...] you. Alexus Moore Pss. documented in this encounterUniversity Hospitals Sam[facility] Center08-07-2023 History of Present illness Narrative* Kayla Coe [...] 30, 2022 9:56 AM documented in this encounterUniversity Hospitals [facility] Center11-22-2022 History of Present illness Narrative* Nithya Rosales [...] PVR. Patient verbalizes understanding. documented in this encounterUniversity Hospitals Samar[facility] Center10-27-2022 History of Present illness Narrative* Kayla Betancourt [...] half using over the counter antifungal nail chilean. He and his son both got this from using showers [place] [employer]. Son required oral antifungal treatment. Over [...] right knee. Was told by orthopedic in [place] the right knee needs replaced as well [...] plan. Kayla Betancourt APRN.CNP documented in this encounterUniversity Hospitals [facility] Center10-20-2022 Miscellaneous Notes* Telephone Encounter - Kayla Betancourt [...] in. Janett Espinal LPN documented in this encounterUniversity Hospitals Sam[facility] Center10-11-2022 Miscellaneous Notes* Telephone Encounter - Janett Espinal [...] notify patient. Licha Cespedes documented in this encounterUniversity Hospitals Samar[facility] Center12-19-2008 History of Past illness Narrative* Problem Noted Date Resolved Date Other seborrheic keratosis 05/17/200809/15 ACTINIC DAMAGE///CHR SOLAR SKIN DAMAGE NOS 05/1709/15/2009 documented as of this encounter (statuses as of 03/10/2022) [facility] History of Past illness Narrative* Problem Noted Date Resolved Date Other seborrheic keratosis 05/17/200809/15 ACTINIC DAMAGE///CHR SOLAR SKIN DAMAGE NOS 05/1709/15/2009 documented as of this encounter (statuses as of 03/18/2022) [facility] of Past illness Narrative* Problem Noted Date Resolved Date Other seborrheic keratosis 05/17/200809/15 ACTINIC DAMAGE///CHR SOLAR SKIN DAMAGE NOS 05/1709/15/2009 documented as of this encounter (statuses as of 03/25/2022) [facility] of Past illness Narrative* Problem Noted Date Resolved Date Other seborrheic keratosis 05/17/200809/15 ACTINIC DAMAGE///CHR SOLAR SKIN DAMAGE NOS 05/1709/15/2009 documented as of this encounter (statuses as of 04/20/2022) [place] [address]-19-2008 History of Past illness Narrative* Problem Noted Date Diagnosed Date Resolved Date Other seborrheic keratosis 05/17/2008 0 09/15/2009 ACTINIC DAMAGE///CHR SOLAR SKIN DAMAGE NOS 05/17/2008 09/15/2009 documented as of this encounter (statuses as of 01/03/2023) [address]19-2008 History of Past illness Narrative* Problem Noted Date Diagnosed Date Resolved Date Other seborrheic keratosis 05/17/2008 0 09/15/2009 ACTINIC DAMAGE///CHR SOLAR SKIN DAMAGE NOS 05/17/2008 09/15/2009 documented as of this encounter (statuses as of 03/24/2023) [facility] Narrative* Problem Noted Date Diagnosed Date Resolved Date Other seborrheic keratosis 05/17/2008 0 09/15/2009 ACTINIC DAMAGE///CHR SOLAR SKIN DAMAGE NOS 05/17/2008 09/15/2009 documented as of this encounter (statuses as of 03/25/2023) [address]19-2008 History of Past illness Narrative* Problem Noted Date Diagnosed Date Resolved Date Other seborrheic keratosis 05/17/2008 0 09/15/2009 ACTINIC DAMAGE///CHR SOLAR SKIN DAMAGE NOS 05/17/2008 09/15/2009 documented as of this encounter (statuses as of 03/30/2023) [address]19-2008 History of Past illness Narrative* Problem Noted Date Diagnosed Date Resolved Date Other seborrheic keratosis 05/17/2008 0 09/15/2009 ACTINIC DAMAGE///CHR SOLAR SKIN DAMAGE NOS 05/17/2008 09/15/2009 documented as of this encounter (statuses as of 03/30/2023) [facility] Narrative* Problem Noted Date Diagnosed Date Resolved Date Other seborrheic keratosis 05/17/2008 0 09/15/2009 ACTINIC DAMAGE///CHR SOLAR SKIN DAMAGE NOS 05/17/2008 09/15/2009 documented as of this encounter (statuses as of 03/31/2023) [facility] Narrative* Problem Noted Date Diagnosed Date Resolved Date Other seborrheic keratosis 05/17/2008 0 09/15/2009 ACTINIC DAMAGE///CHR SOLAR SKIN DAMAGE NOS 05/17/2008 09/15/2009 documented as of this encounter (statuses as of 04/01/2023) [facility] illness Narrative* Problem Noted Date Diagnosed Date Resolved Date Other seborrheic keratosis 05/17/2008 0 09/15/2009 ACTINIC DAMAGE///CHR SOLAR SKIN DAMAGE NOS 05/17/2008 09/15/2009 documented as of this encounter (statuses as of 04/19/2023) [address]19-2008 History of Past illness Narrative* Problem Noted Date Diagnosed Date Resolved Date Other seborrheic keratosis 05/17/2008 0 09/15/2009 ACTINIC DAMAGE///CHR SOLAR SKIN DAMAGE NOS 05/17/2008 09/15/2009 documented as of this encounter (statuses as of 05/03/2023) [address]19-2008 History of Past illness Narrative* Problem Noted Date Diagnosed Date Resolved Date Other seborrheic keratosis 05/17/2008 0 09/15/2009 ACTINIC DAMAGE///CHR SOLAR SKIN DAMAGE NOS 05/17/2008 09/15/2009 documented as of this encounter (statuses as of 05/20/2023) [address]19-2008 History of Past illness Narrative* Problem Noted Date Diagnosed Date Resolved Date Other seborrheic keratosis 05/17/2008 0 09/15/2009 ACTINIC DAMAGE///CHR SOLAR SKIN DAMAGE NOS 05/17/2008 09/15/2009 documented as of this encounter (statuses as of 07/08/2023) [address]19-2008 History of Past illness Narrative* Problem Noted Date Diagnosed Date Resolved Date Other seborrheic keratosis 05/17/2008 0 09/15/2009 ACTINIC DAMAGE///CHR SOLAR SKIN DAMAGE NOS 05/17/2008 09/15/2009 documented as of this encounter (statuses as of 07/20/2023) [facility]* Diagnosis Essential hypertension, benign [facility] Mixed hyperlipidemia- Primary Essential hypertension, benign Annual physical exam Routine general medical examination at a health care facility Prostate cancer screening Special screening for malignant neoplasm of prostate documented in this encounter [facility]* Diagnosis Annual physical exam- Primary Routine [...] urinary obstruction- Primary [facility] Diagnosis Essential hypertension, benign- Primary Mixed hyperlipidemia Screening for prostate cancer Special screening for malignant neoplasm of prostate [facility]* Diagnosis Annual physical exam- Primary Routine general medical examination at a health care facility Encounter for wellness examination Elevated PSA Elevated prostate specific antigen (PSA) documented in this encounter [facility]* Diagnosis Elevated PSA- Primary Elevated prostate specific antigen (PSA) Benign prostatic hyperplasia with urinary obstruction Pain in right testicle Unspecified disorder of male genital organs documented in this encounter [facility] Diagnosis Elevated prostate specific antigen (PSA)- Primary documented in this [facility]* Diagnosis Elevated prostate specific antigen (PSA)- Primary documented in this encounter [facility]* Diagnosis Elevated prostate specific antigen (PSA)- Primary Encounter for observation for other suspected diseases and conditions ruled out [facility]* Diagnosis Encounter for observation for other suspected diseases and conditions ruled out Elevated prostate specific antigen (PSA) documented in this encounter [facility]* Diagnosis Prostate cancer (HCC)- Primary Malignant neoplasm of prostate Insomnia, unspecified type Increased urinary frequency Urinary frequency Dark urine Other nonspecific finding on examination of urine Constipation, unspecified constipation type Sinus drainage Other diseases of nasal cavity and sinuses documented in this encounter [facility]* Diagnosis Elevated prostate specific antigen (PSA)- Primary [facility]* Diagnosis Prostate cancer (HCC)- Primary Malignant neoplasm of prostate Dysuria documented in this encounter [facility]* Diagnosis Prostate cancer (HCC) Malignant neoplasm of prostate [facility]* Diagnosis Prostate cancer (HCC)- Primary Malignant neoplasm of prostate Vitamin D deficiency Unspecified vitamin D deficiency Vitamin B12 deficiency Other B-complex deficiencies Essential hypertension, benign documented in this encounter [facility]* Diagnosis Prostate cancer (HCC)- Primary Malignant neoplasm of prostate documented in this encounter [facility]* Diagnosis Prostate cancer (HCC) Malignant neoplasm of prostate documented in this encounter [facility]* Diagnosis Medication management Encounter for long-term (current) use of other medications documented in this encounter [facility]* Diagnosis Essential hypertension, benign [facility] Encounter for Medicare annual wellness exam- Primary Routine general medical examination at a health care facility Annual physical exam Routine general medical examination at a [facility] care facility Mixed hyperlipidemia Primary hypertension Unspecified essential hypertension [facility] Medicare annual wellness visit, subsequent- Primary Routine general medical examination at a health care facility Insomnia, unspecified type Prostate cancer (HCC) Malignant neoplasm of prostate [facility]* Diagnosis Prostate cancer (HCC)- Primary Malignant neoplasm of prostate Unable to void Other symptoms involving urinary system [facility]* Diagnosis Urine retention- Primary Retention of urine, unspecified BPH with obstruction/lower urinary tract symptoms Hypertrophy of prostate with urinary obstruction and other lower urinary tract symptoms (LUTS) Prostate cancer (HCC) Malignant neoplasm of prostate [facility]* Diagnosis Urine retention- Primary Retention of urine, unspecified documented in this encounter [facility]* Diagnosis Prostate cancer (HCC)- Primary Malignant neoplasm of prostate Closed fracture of multiple ribs of both sides, sequela Fracture of vertebra due to osteoporosis, sequela Other osteoporosis, unspecified pathological fracture presence Debility Debility, unspecified Falls frequently Personal history of fall documented in this encounter [facility]* Diagnosis Upper respiratory tract infection, unspecified type- Primary [facility]* Diagnosis Prostate cancer (HCC)- Primary Malignant neoplasm of prostate [facility]* Diagnosis Prostate cancer (HCC) Malignant neoplasm of prostate [facility]* Diagnosis Prostate cancer (HCC)- Primary Malignant neoplasm of prostate [facility]* Diagnosis Prostate cancer (HCC)- Primary Malignant neoplasm of prostate documented [facility] this encounter [facility]* Diagnosis Prostate cancer (HCC)- Primary Malignant neoplasm of prostate [facility]* Diagnosis Prostate cancer (HCC)- Primary Malignant neoplasm of prostate [facility] Diagnosis Prostate cancer (HCC)- Primary Malignant neoplasm of prostate [facility] Diagnosis Prostate cancer (HCC)- Primary Malignant neoplasm of prostate Self-catheterizes urinary bladder Other specified conditions influencing health status Falls Unspecified fall Decreased bone density Other disorders of bone and cartilage Essential hypertension Unspecified essential hypertension [facility]* Diagnosis Prostate cancer (HCC)- Primary Malignant neoplasm of prostate documented [facility]* Diagnosis Prostate cancer (HCC)- Primary Malignant neoplasm of prostate [facility]* Diagnosis Prostate cancer (HCC)- Primary Malignant neoplasm of prostate [facility]* Diagnosis Prostate cancer (HCC)- Primary Malignant neoplasm of prostate documented in this encounter [facility] note* Diagnosis BPH with obstruction/lower urinary tract symptoms- Primary Hypertrophy of prostate with urinary obstruction and other lower urinary tract symptoms (LUTS) Prostate cancer (HCC) Malignant neoplasm of prostate Recurrent UTI Urinary tract infection, site not specified documented in this encounter [facility] note* Diagnosis Other osteoporosis, unspecified pathological fracture presence documented in this encounter [facility] note* Diagnosis Medication monitoring encounter- Primary Encounter for therapeutic drug monitoring Vitamin D deficiency Unspecified vitamin D deficiency 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 Abnormal EKG Nonspecific abnormal electrocardiogram (ECG) (EKG) Supraventricular premature beats Hypomagnesemia Disorders of magnesium metabolism Elevated TSH Nonspecific abnormal results of thyroid function study Cardiac arrhythmia, unspecified cardiac arrhythmia type documented in this encounter [facility] note* Diagnosis Malignant neoplasm of prostate (HCC)- Primary Malignant neoplasm of prostate BPH with obstruction/lower urinary tract symptoms Hypertrophy of prostate with urinary obstruction and other lower urinary tract symptoms (LUTS) documented in this encounter [facility] note* Diagnosis Encounter for Mahoney catheter replacement- Primary Fitting and adjustment of urinary device BPH with obstruction/lower urinary tract symptoms Hypertrophy of prostate with urinary obstruction and other lower urinary tract symptoms (LUTS) documented in this encounter [facility] note* Diagnosis Preop examination- Primary Preoperative examination, unspecified Obesity, Class I, BMI 30-34.9 Obesity, unspecified Mixed hyperlipidemia Primary hypertension Unspecified essential hypertension BPH with obstruction/lower urinary tract symptoms Hypertrophy of prostate with urinary obstruction and other lower urinary tract symptoms (LUTS) * Assessment & Plan Note - Navneet Tellez APRN.HARD METALS HAND ENGRAVER - 11/08/2024 6:56 AM EDT Associated Problem(s): [...] and plan today [facility] Diagnosis Preop examination- Primary Preoperative examination, unspecified Obesity, Class I, BMI 30-34.9 Obesity, unspecified Mixed hyperlipidemia Primary hypertension Unspecified essential hypertension Abnormal EKG Nonspecific abnormal electrocardiogram (ECG) (EKG) BPH with obstruction/lower urinary tract symptoms Hypertrophy of prostate with urinary obstruction and other lower urinary tract symptoms (LUTS) documented in this encounter [facility] note* Diagnosis Preop examination- Primary Preoperative examination, unspecified Obesity, Class I, BMI 30-34.9 Obesity, unspecified Mixed hyperlipidemia Primary hypertension Unspecified essential hypertension Hospital discharge follow-up- Primary Other follow-up examination S/P TURP Other postprocedural status Aortic dilatation Aortic ectasia, unspecified site Benign prostatic hyperplasia without lower urinary tract symptoms documented in this encounter [facility] note* Diagnosis Preop examination- Primary Preoperative examination, unspecified Obesity, Class I, BMI 30-34.9 Obesity, unspecified Mixed hyperlipidemia Primary hypertension Unspecified essential hypertension Hypotension, unspecified hypotension type- Primary Lightheaded Dizziness and giddiness documented in this encounter [facility] note* Diagnosis Preop examination- Primary Preoperative examination, unspecified Obesity, Class I, BMI 30-34.9 Obesity, unspecified Mixed hyperlipidemia Primary hypertension Unspecified essential hypertension Aortic dilatation Aortic ectasia, unspecified site documented in this encounter [facility] for referral (narrative)* Diagnostic Procedure Only (Routine) - Pending Review Specialty Diagnoses / Procedures Referred By Mayra avalos Referred To Contact [facility] Diagnoses Pain in right testicle Procedures US DOPPLER COMPLETE DUP-SCAN ARTL MARINA ABDL/PEL/SCROT&/RPR ORGN COM Dat Jones PA-C [address] [place] [phone] [facility] [place] [address] Referral ID Status Reason Start Date Expiration Date Visits Requested Visits Authorized [id number] Pending Review Auto-Generat ed Referral 3 04/27/2024 1 1 * Diagnostic Procedure Only (Routine) - Pending Review Specialty Diagnoses / Procedures Referred By Mayra avalos Referred To Contact [facility] Diagnoses Pain in right testicle Procedures US SCROTUM AND CONTENTS US SCROTUM & CONTENTS Dat Jones PA-C [address] [place] [phone] [place] [id number] Referral ID Status Reason Start Date Expiration Date Visits Requested Visits Authorized [id number] Pending Review Auto-Generat ed Referral 04/27/2024 1 1 [facility] for referral (narrative)* Outpatient Procedure (Routine) - Pending Review Specialty Diagnoses / Procedures Referred By Contac t Referred To Contact [facility] Diagnoses Elevated prostate specific antigen (PSA) Procedures PROSTATE BIOPSY GUKI PROSTATE NEEDLE BIOPSY ANY APPROACH US, TRANSRECTAL URNLS DIP STICK/TABLET RGNT AUTO W/O MICROSCOPY US GUIDANCE NEEDLE PLACEMENT IMG S&I Dat Jones PA-C [address] [place] [address] [place] [address] Referral ID Status Reason Start Date Expiration Date Visits Requested Visits Authorized [id number] Pending Review Auto-Generat ed Referral 03/30/2023 03/30/2024 1 1 [facility] for referral (narrative)* Diagnostic Procedure Only (Routine) - Authorized Specialty Diagnoses / Procedures Referred By Mayra avalos Referred To Contact MOLECULAR & FUNCTIONAL IMAGING Diagnoses Prostate cancer (HCC) Procedures NM BONE WHOLE BODY BONE &/JOINT IMAGING WHOLE BODY Juan Blanton Jr., MD [address] [place] [address] [facility] [address] [place] [address] Referral ID Status Reason Start Date Expiration Date Visits Requested Visits Authorized [id number] Authorized Auto-Generat ed Referral 12/06/2023 01/04/2025 1 1 [facility] for referral (narrative)* Diagnostic Procedure Only (Routine) - Closed Specialty Diagnoses / Procedures Referred By Contac t Referred To Contact MOLECULAR & FUNCTIONAL IMAGING Diagnoses Prostate cancer (HCC) Procedures NM BONE WHOLE BODY BONE &/JOINT IMAGING WHOLE BODY Juan Blanton Jr., MD [address] [place] [address] Molecular & Functional Imaging [address] [place] [address] Referral ID Status Reason Start Date Expiration Date V isits Requested Visits Authorized [id number] Closed Auto-Generate d Referral 12/06/2023 01/04/2025 1 1 [facility] for referral (narrative)* Diagnostic Procedure Only (Urgent) - Authorized Specialty Diagnoses / Procedures Referred By Contac t Referred To Contact MOLECULAR & FUNCTIONAL IMAGING Diagnoses Prostate cancer (HCC) Procedures NM PET/CT PROSTATE WHOLE BODY IMAGING PET IMAGING CT ATTENUATION SKULL BASE MID-THIGH Vince Huffman MD [address] [place] [address] Molecular [facility] [address] [place] [address] Referral ID Status Reason Start Date Expiration Date Visits Requested Visits Authorized [id number] Authorized Auto-Generat ed Referral 06/29/2024 07/29/2025 1 1 [facility] for referral (narrative)No reason for referral information availableWUniversity [facility]als [facility] Work Phone: Reason for visit Narrative* Diagnostic Procedure Only (Routine) - Closed Specialty Diagnoses / Procedures Referred By Contac t Referred To Contact MOLECULAR & FUNCTIONAL IMAGING Diagnoses Prostate cancer (HCC) Procedures NM BONE WHOLE BODY BONE &/JOINT IMAGING WHOLE BODY Juan Blanton Jr., MD [address] [place] [address] Molecular & Functional Imaging [address] [place] [address] Referral ID Status Reason Start Date Expiration Date V isits Requested Visits Authorized [id number] Closed Auto-Generate d Referral 12/06/2023 01/04/2025 1 1 [facility] for visit Narrative* Diagnostic Procedure Only (Urgent) - Closed Specialty Diagnoses / Procedures Referred By Contac t Referred To Contact MOLECULAR & FUNCTIONAL IMAGING Diagnoses Prostate cancer (HCC) Procedures NM PET/CT PROSTATE WHOLE BODY IMAGING PET IMAGING CT ATTENUATION SKULL BASE MID-THIGH Vince Huffman MD [address] [facility] [place] [address] Phone: tel: fax: Molecular Imaging [address] [place], [place] [id number] Phone: tel: Referral ID Status Reason Start Date Expiration Date V isits Requested Visits Authorized [id number] Closed Auto-Generate d Referral 06/29/2024 07/29/2025 1 1 [facility] for visit Narrative* Diagnostic Procedure Only (Urgent) - Closed Specialty Diagnoses / Procedures Referred By Contac t Referred To Contact MOLECULAR & FUNCTIONAL IMAGING Diagnoses Prostate cancer (HCC) Procedures NM PET/CT PROSTATE WHOLE BODY IMAGING PET IMAGING CT ATTENUATION SKULL BASE MID-THIGH Vince Huffman MD [address] [place] [address] Phone: tel: fax: Molecular Imaging [address] [place], [place] [phone] Phone: tel: Referral ID Status Reason Start Date Expiration Date V isits Requested Visits Authorized [id number] Closed Auto-Generate d Referral 06/29/2024 07/29/2025 1 1 [facility] for visit Narrative* Diagnostic Procedure Only (Routine) - Closed Specialty Diagnoses / Procedures Referred By Contac t Referred To Contact XR IMAGING Diagnoses Other osteoporosis, unspecified pathological fracture presence Procedures DXA-AXIAL SKELETON DXA BONE DENSITY STUDY / SITES AXIAL Ailin Henry MD [address] [place] [address] Phone: tel: fax: [place] [address] Referral ID Status Reason Start Date Expiration Date V isits Requested Visits Authorized [id number] Closed Auto-Generate d Referral 06/27/2024 07/27/2025 1 1 [facility] for visit Narrative* Outpatient Procedure (Routine) - Closed Specialty Diagnoses / Procedures Referred By Contac t Referred To Contact [facility] Diagnoses Abnormal EKG Procedures ECHO ECHO TTHRC R-T 2D W/WOM-MODE COMPL SPEC&COLR D Ailin Pierson MD [address] [place] [address] Phone: tel: fax: [facility] [address] [place] [address] Referral ID Status Reason Start Date Expiration Date V isits Requested Visits Authorized [id number] Closed Auto-Generate d Referral 10/10/2024 10/10/2025 1 1 [facility] Summary Purpose Family History No Family History Records FoundNo Family History Records FoundNo Family History Records FoundNo Family History Records FoundNo Family History Records FoundNo Family History Records FoundNo Family History Records Found Advance Directives No Advanced Directives Records Found Advance Directive Response Recorded Date/ Time Living Will Yes May 22 7:33pm Do you have a Healthcare Pow er of Assistant Associate Full Professor? Yes May 22, 2024 7:33pm Name of Medical Power of Assistant Associate Full Professor arnoldo May 22, 2024 7:33pm Living Will No May 09 11:39am Do you have a Healthcare Pow er of Assistant Associate Full Professor? No May 09, 2024 11:39am Living Will Yes June 19 1:35pm Do you have a Healthcare Pow er of Assistant Associate Full Professor? Yes June 19, 2024 1:35pm Name of Medical Power of Assistant Associate Full Professor Arnoldo Short - jana on June 19, 2024 1:35pm Living Will Yes August 29, 2024 2:32pm Do you have a Healthcare Pow er of Assistant Associate Full Professor? Yes August 29, 2024 2:32pm Name of Medical Power of Assistant Associate Full Professor ARNOLDO HAN August 29, 2024 2:32pm Documents on File Type Date Recorded Patient Quality Control Tech Raw Materials Expl anation Advance Directive(s) 11/28/2024 8:17 AM Documents on File Type Date Recorded Patient Quality Control Tech Raw Materials Expl anation Advance Directive(s) 11/28/2024 8:17 AM [...] NEW HIGH MDM 60-74 MINUTES Kayla Betancourt APRN.HARD METALS HAND ENGRAVER [address] [place] [address] Referral ID Status Reason Start Date Expiration Date Visits Requested Visits Authorized [id number] Authorized PCP Requested Referral 03/25/2023 1 1 Specialty Diagnoses / Procedures Referred By Contac t Referred To Contact MR IMAGING Diagnoses Elevated prostate specific antigen (PSA) Encounter for observation for other suspected diseases and conditions ruled out Procedures MRI 3D POST PROCESSING 3D RENDERING W/INTERP&POSTPROC DIFF WORK STATION Juan Blanton Jr., MD [address] [place] [id number] Mr Imaging [facility] Referral ID Status Reason Start Date Expiration Date Visits Requested Visits Authorized [id number] Authorized Auto-Generat ed Referral 2023 08/17/2024 1 1 Specialty Diagnoses / Procedures Referred By Contac t Referred To Contact MR IMAGING Diagnoses Encounter for observation for other suspected diseases and conditions ruled out Procedures MRI PROSTATE WO/W IVCON MRI PELVIS W/O & W/CONTRAST MATERIAL Juan Blanton Jr., MD [address] [place] [id number] [facility] Referral ID Status Reason Start Date Expiration Date Visits Requested Visits Authorized [id number] Authorized Auto-Generat ed Referral 2023 08/17/2024 1 1 Specialty Diagnoses / Procedures Referred By Contac t Referred To Contact Radiation Oncology Diagnoses Prostate cancer (HCC) Procedures RAD/ONC CONSULT OFFICE/OUTPATIENT NEW HIGH MDM 60 MINUTES Juan Blanton Jr., MD [address] [place] [address] Referral ID Status Reason Start Date Expiration Date Visits Requested Visits Authorized [id number] Authorized PCP Requested Referral 01/03/2024 01/02/2025 1 1 Specialty Diagnoses / Procedures Referred By Contac t Referred To Contact Diagnoses Insomnia, unspecified type Ailin Pierson MD [address] [place] [address] Referral ID Status Reason Start Date Expiration Date Visits Re quested Visits Authorized [id number] Closed 1 1 Specialty Diagnoses / Procedures Referred By Contac t Referred To Contact Urology Diagnoses Prostate cancer (HCC) Unable to void Procedures CONSULT TO UROLOGY OFFICE/OUTPATIENT NEW HIGH MDM 60 MINUTES Kayla Betancourt APRN.HARD METALS HAND ENGRAVER [address] [place] [phone] Referral ID Status Reason Start Date Expiration Date Visits Requested Visits Authorized [id number] Authorized PCP Requested Referral 4 05/14/2025 1 1 Specialty Diagnoses / Procedures Referred By Contac t Referred To Contact [facility] Diagnoses Fracture of vertebra due to osteoporosis, sequela Procedures CONSULT TO PAIN MGT OFFICE/OUTPATIENT NEW HIGH MDM 60 MINUTES Ailin Pierson MD [address] [place] [phone] [facility] [place] [address] [place] [address] Referral ID Status Reason Start Date Expiration Date V isits Requested Visits Authorized [id number] Closed PCP Requested Referral 06/27/2024 09/25/2024 1 1 Specialty Diagnoses / Procedures Referred By Contac t Referred To Contact XR IMAGING Diagnoses Other osteoporosis, unspecified pathological fracture presence Procedures DXA-AXIAL SKELETON DXA BONE DENSITY STUDY 1/> SITES AXIAL SKEL Ailin Pierson MD [facility] [place] [address] [place] [address] Referral ID Status Reason Start Date Expiration Date Visits Requested Visits Authorized [id number] New Request Auto-Generat ed Referral 06/27/2024 07/27/2025 1 1 Specialty Diagnoses / Procedures Referred By Contac t Referred To Contact Radiation Oncology Diagnoses Prostate cancer (HCC) Procedures RAD/ONC CONSULT OFFICE/OUTPATIENT NEW HIGH MDM 60 MINUTES Ailin Pierson MD [address] [place] [address] Referral ID Status Reason Start Date Expiration Date Visits Requested Visits Authorized [id number] Authorized PCP Requested Referral 06/26/2024 06/26/2025 1 1 Specialty Diagnoses / Procedures Referred By Mayra avalos Referred To Contact Urology Diagnoses Prostate cancer (HCC) Procedures CONSULT TO UROLOGY OFFICE/OUTPATIENT [facility] 60 MINUTES Ailin Pierson MD [address] [place] [address] Referral ID Status Reason Start Date Expiration Date Visits Requested Visits Authorized [id number] Authorized PCP Requested Referral 06/26/2024 06/26/2025 1 [...] and content) DATE CREATED AUTHOR 11/18/2017 [facility] DATE CREATED AUTHOR AUTHOR'S ORGANIZ ATION 12/09/2017 [facility] DATE CREATED AUTHOR AUTHOR'S ORGANIZ ATION 07/20/2024 [facility] DATE CREATED AUTHOR AUTHOR'S ORGANIZ ATION 09/05/2024 [facility] DATE CREATED AUTHOR AUTHOR'S ORGANIZ ATION 12/30/2024 [facility] DATE CREATED AUTHOR AUTHOR'S ORGANIZ ATION 12/30/2024 [facility] DATE CREATED AUTHOR AUTHOR'S ORGANIZ ATION 01/04/2025 [facility] Source Comments (unrecognize d section and content) In the event this informatio n is protected by the Federal Confidentiality of Alcohol and Drug Abuse Patient Records regulations: The Federal rules restrict any use of the information to criminally investigate or prosecute any alcohol or drug abuse patient.[facility] the event this information is protected by the Federal Confidentiality of Alcohol and Drug Abuse Patient Records regulations: The Federal rules restrict any use of the information to criminally investigate or prosecute any alcohol or drug abuse patient.[facility] Center[facility] the event this information is protected by the Federal Confidentiality of Alcohol and Drug Abuse Patient Records regulations: The Federal rules restrict any use of the information to criminally investigate or prosecute any alcohol or drug abuse patient.[facility] Center[facility] the event this information is protected by the Federal Confidentiality of Alcohol and Drug Abuse Patient Records regulations: The Federal rules restrict any use of the information to criminally investigate or prosecute any alcohol or drug abuse patient.[facility] Center[facility] the event this information is protected by the Federal Confidentiality of Alcohol and Drug Abuse Patient Records regulations: The Federal rules restrict any use of the information to criminally investigate or prosecute any alcohol or drug abuse patient.[facility] Center[facility] the event this information is protected by the Federal Confidentiality of Alcohol and Drug Abuse Patient Records regulations: The Federal rules restrict any use of the information to criminally investigate or prosecute any alcohol or drug abuse patient.[facility] CenterIn the event this information is protected by the Federal Confidentiality of Alcohol and Drug Abuse Patient Records regulations: The Federal rules restrict any use of the information to criminally investigate or prosecute any alcohol or drug abuse patient.[facility] CenterIn the event this information is protected by the Federal Confidentiality of Alcohol and Drug Abuse Patient Records regulations: The Federal rules restrict any use of the information to criminally investigate or prosecute any alcohol or drug abuse patient.[facility] CenterIn the event this information is protected by the Federal Confidentiality of Alcohol and Drug Abuse Patient Records regulations: The Federal rules restrict any use of the information to criminally investigate or prosecute any alcohol or drug abuse patient.[facility] CenterIn the event this information is protected by the Federal Confidentiality of Alcohol and Drug Abuse Patient Records regulations: The Federal rules restrict any use of the information to criminally investigate or prosecute any alcohol or drug abuse patient.[facility] CenterIn the event this information is protected by the Federal Confidentiality of Alcohol and Drug Abuse Patient Records regulations: The Federal rules restrict any use of the information to criminally investigate or prosecute any alcohol or drug abuse patient.[facility] CenterIn the event this information is protected by the Federal Confidentiality of Alcohol and Drug Abuse Patient Records regulations: The Federal rules restrict any use of the information to criminally investigate or prosecute any alcohol or drug abuse patient.[facility] CenterIn the event this information is protected by the Federal Confidentiality of Alcohol and Drug Abuse Patient Records regulations: The Federal rules restrict any use of the information to criminally investigate or prosecute any alcohol or drug abuse patient.[facility] CenterIn the event this information is protected by the Federal Confidentiality of Alcohol and Drug Abuse Patient Records regulations: The Federal rules restrict any use of the information to criminally investigate or prosecute any alcohol or drug abuse patient.[facility] CenterIn the event this information is protected by the Federal Confidentiality of Alcohol and Drug Abuse Patient Records regulations: The Federal rules restrict any use of the information to criminally investigate or prosecute any alcohol or drug abuse patient.[facility] CenterIn the event this information is protected by the Federal Confidentiality of Alcohol and Drug Abuse Patient Records regulations: The Federal rules restrict any use of the information to criminally investigate or prosecute any alcohol or drug abuse patient.[facility] CenterIn the event this information is protected by the Federal Confidentiality of Alcohol and Drug Abuse Patient Records regulations: The Federal rules restrict any use of the information to criminally investigate or prosecute any alcohol or drug abuse patient.[facility] CenterIn the event this information is protected by the Federal Confidentiality of Alcohol and Drug Abuse Patient Records regulations: The Federal rules restrict any use of the information to criminally investigate or prosecute any alcohol or drug abuse patient.[facility] CenterIn the event this information is protected by the Federal Confidentiality of Alcohol and Drug Abuse Patient Records regulations: The Federal rules restrict any use of the information to criminally investigate or prosecute any alcohol or drug abuse patient.[facility] CenterIn the event this information is protected by the Federal Confidentiality of Alcohol and Drug Abuse Patient Records regulations: The Federal rules restrict any use of the information to criminally investigate or prosecute any alcohol or drug abuse patient.[facility] CenterIn the event this information is protected by the Federal Confidentiality of Alcohol and Drug Abuse Patient Records regulations: The Federal rules restrict any use of the information to criminally investigate or prosecute any alcohol or drug abuse patient.[facility] CenterIn the event this information is protected by the Federal Confidentiality of Alcohol and Drug Abuse Patient Records regulations: The Federal rules restrict any use of the information to criminally investigate or prosecute any alcohol or drug abuse patient.[facility] CenterIn the event this information is protected by the Federal Confidentiality of Alcohol and Drug Abuse Patient Records regulations: The Federal rules restrict any use of the information to criminally investigate or prosecute any alcohol or drug abuse patient.[facility] CenterIn the event this information is protected by the Federal Confidentiality of Alcohol and Drug Abuse Patient Records regulations: The Federal rules restrict any use of the information to criminally investigate or prosecute any alcohol or drug abuse patient.[facility] CenterIn the event this information is protected by the Federal Confidentiality of Alcohol and Drug Abuse Patient Records regulations: The Federal rules restrict any use of the information to criminally investigate or prosecute any alcohol or drug abuse patient.[facility] CenterIn the event this information is protected by the Federal Confidentiality of Alcohol and Drug Abuse Patient Records regulations: The Federal rules restrict any use of the information to criminally investigate or prosecute any alcohol or drug abuse patient.[facility] CenterIn the event this information is protected by the Federal Confidentiality of Alcohol and Drug Abuse Patient Records regulations: The Federal rules restrict any use of the information to criminally investigate or prosecute any alcohol or drug abuse patient.[facility] CenterIn the event this information is protected by the Federal Confidentiality of Alcohol and Drug Abuse Patient Records regulations: The Federal rules restrict any use of the information to criminally investigate or prosecute any alcohol or drug abuse patient.[facility] CenterIn the event this information is protected by the Federal Confidentiality of Alcohol and Drug Abuse Patient Records regulations: The Federal rules restrict any use of the information to criminally investigate or prosecute any alcohol or drug abuse patient.[facility] [facility] CenterIn the event this information is protected by the Federal Confidentiality of Alcohol and Drug Abuse Patient Records regulations: The Federal rules restrict any use of the information to criminally investigate or prosecute any alcohol or drug abuse patient.[facility] CenterIn the event this information is protected by the Federal Confidentiality of Alcohol and Drug Abuse Patient Records regulations: The Federal rules restrict any use of the information to criminally investigate or prosecute any alcohol or drug abuse patient.[facility] CenterIn the event this information is protected by the Federal Confidentiality of Alcohol and Drug Abuse Patient Records regulations: The Federal rules restrict any use of the information to criminally investigate or prosecute any alcohol or drug abuse patient.[facility] CenterIn the event this information is protected by the Federal Confidentiality of Alcohol and Drug Abuse Patient Records regulations: The Federal rules restrict any use of the information to criminally investigate or prosecute any alcohol or drug abuse patient.[facility] CenterIn the event this information is protected by the Federal Confidentiality of Alcohol and Drug Abuse Patient Records regulations: The Federal rules restrict any use of the information to criminally investigate or prosecute any alcohol or drug abuse patient.[facility] CenterIn the event this information is protected by the Federal Confidentiality of Alcohol and Drug Abuse Patient Records regulations: The Federal rules restrict any use of the information to criminally investigate or prosecute any alcohol or drug abuse patient.[facility] CenterIn the event this information is protected by the Federal Confidentiality of Alcohol and Drug Abuse Patient Records regulations: The Federal rules restrict any use of the information to criminally investigate or prosecute any alcohol or drug abuse patient.[facility] CenterIn the event this information is protected by the Federal Confidentiality of Alcohol and Drug Abuse Patient Records regulations: The Federal rules restrict any use of the information to criminally investigate or prosecute any alcohol or drug abuse patient.[facility] CenterIn the event this information is protected by the Federal Confidentiality of Alcohol and Drug Abuse Patient Records regulations: The Federal rules restrict any use of the information to criminally investigate or prosecute any alcohol or drug abuse patient.[facility] CenterIn the event this information is protected by the Federal Confidentiality of Alcohol and Drug Abuse Patient Records regulations: The Federal rules restrict any use of the information to criminally investigate or prosecute any alcohol or drug abuse patient.[facility] CenterIn the event this information is protected by the Federal Confidentiality of Alcohol and Drug Abuse Patient Records regulations: The Federal rules restrict any use of the information to criminally investigate or prosecute any alcohol or drug abuse patient.[facility] CenterIn the event this information is protected by the Federal Confidentiality of Alcohol and Drug Abuse Patient Records regulations: The Federal rules restrict any use of the information to criminally investigate or prosecute any alcohol or drug abuse patient.[facility] CenterIn the event this information is protected by the Federal Confidentiality of Alcohol and Drug Abuse Patient Records regulations: The Federal rules restrict any use of the information to criminally investigate or prosecute any alcohol or drug abuse patient.[facility] CenterIn the event this information is protected by the Federal Confidentiality of Alcohol and Drug Abuse Patient Records regulations: The Federal rules restrict any use of the information to criminally investigate or prosecute any alcohol or drug abuse patient.[facility] CenterIn the event this information is protected by the Federal Confidentiality of Alcohol and Drug Abuse Patient Records regulations: The Federal rules restrict any use of the information to criminally investigate or prosecute any alcohol or drug abuse patient.[facility] CenterIn the event this information is protected by the Federal Confidentiality of Alcohol and Drug Abuse Patient Records regulations: The Federal rules restrict any use of the information to criminally investigate or prosecute any alcohol or drug abuse patient.[facility] CenterIn the event this information is protected by the Federal Confidentiality of Alcohol and Drug Abuse Patient Records regulations: The Federal rules restrict any use of the information to criminally investigate or prosecute any alcohol or drug abuse patient.[facility] CenterIn the event this information is protected by the Federal Confidentiality of Alcohol and Drug Abuse Patient Records regulations: The Federal rules restrict any use of the information to criminally investigate or prosecute any alcohol or drug abuse patient.[facility] CenterIn the event this information is protected by the Federal Confidentiality of Alcohol and Drug Abuse Patient Records regulations: The Federal rules restrict any use of the information to criminally investigate or prosecute any alcohol or drug abuse patient.[facility] CenterIn the event this information is protected by the Federal Confidentiality of Alcohol and Drug Abuse Patient Records regulations: The Federal rules restrict any use of the information to criminally investigate or prosecute any alcohol or drug abuse patient.[facility] CenterIn the event this information is protected by the Federal Confidentiality of Alcohol and Drug Abuse Patient Records regulations: The Federal rules restrict any use of the information to criminally investigate or prosecute any alcohol or drug abuse patient.[facility] CenterIn the event this information is protected by the Federal Confidentiality of Alcohol and Drug Abuse Patient Records regulations: The Federal rules restrict any use of the information to criminally investigate or prosecute any alcohol or drug abuse patient.[facility] CenterIn the event this information is protected by the Federal Confidentiality of Alcohol and Drug Abuse Patient Records regulations: The Federal rules restrict any use of the information to criminally investigate or prosecute any alcohol or drug abuse patient.[facility] CenterIn the event this information is protected by the Federal Confidentiality of Alcohol and Drug Abuse Patient Records regulations: The Federal rules restrict any use of the information to criminally investigate or prosecute any alcohol or drug abuse patient.[facility] CenterIn the event this information is protected by the Federal Confidentiality of Alcohol and Drug Abuse Patient Records regulations: The Federal rules restrict any use of the information to criminally investigate or prosecute any alcohol or drug abuse patient.[facility] CenterIn the event this information is protected by the Federal Confidentiality of Alcohol and Drug Abuse Patient Records regulations: The Federal rules restrict any use of the information to criminally investigate or prosecute any alcohol or drug abuse patient.[facility] CenterIn the event this information is protected by the Federal Confidentiality of Alcohol and Drug Abuse Patient Records regulations: The Federal rules restrict any use of the information to criminally investigate or prosecute any alcohol or drug abuse patient.[facility] CenterIn the event this information is protected by the Federal Confidentiality of Alcohol and Drug Abuse Patient Records regulations: The Federal rules restrict any use of the information to criminally investigate or prosecute any alcohol or drug abuse patient.[facility] CenterIn the event this information is protected by the Federal Confidentiality of Alcohol and Drug Abuse Patient Records regulations: The Federal rules restrict any use of the information to criminally investigate or prosecute any alcohol or drug abuse patient.[facility] CenterIn the event this information is protected by the Federal Confidentiality of Alcohol and Drug Abuse Patient Records regulations: The Federal rules restrict any use of the information to criminally investigate or prosecute any alcohol or drug abuse patient.[facility] CenterIn the event this information is protected by the Federal Confidentiality of Alcohol and Drug Abuse Patient Records regulations: The Federal rules restrict any use of the information to criminally investigate or prosecute any alcohol or drug abuse patient.[facility] CenterIn the event this information is protected by the Federal Confidentiality of Alcohol and Drug Abuse Patient Records regulations: The Federal rules restrict any use of the information to criminally investigate or prosecute any alcohol or drug abuse patient.[facility] CenterIn the event this information is protected by the Federal Confidentiality of Alcohol and Drug Abuse Patient Records regulations: The Federal rules restrict any use of the information to criminally investigate or prosecute any alcohol or drug abuse patient.[facility] CenterIn the event this information is protected by the Federal Confidentiality of Alcohol and Drug Abuse Patient Records regulations: The Federal rules restrict any use of the information to criminally investigate or prosecute any alcohol or drug abuse patient.[facility] CenterIn the event this information is protected by the Federal Confidentiality of Alcohol and Drug Abuse Patient Records regulations: The Federal rules restrict any use of the information to criminally investigate or prosecute any alcohol or drug abuse patient.[facility] CenterIn the event this information is protected by the Federal Confidentiality of Alcohol and Drug Abuse Patient Records regulations: The Federal rules restrict any use of the information to criminally investigate or prosecute any alcohol or drug abuse patient.[facility] CenterIn the event this information is protected by the Federal Confidentiality of Alcohol and Drug Abuse Patient Records regulations: The Federal rules restrict any use of the information to criminally investigate or prosecute any alcohol or drug abuse patient.[facility] CenterIn the event this information is protected by the Federal Confidentiality of Alcohol and Drug Abuse Patient Records regulations: The Federal rules restrict any use of the information to criminally investigate or prosecute any alcohol or drug abuse patient.[facility] CenterIn the event this information is protected by the Federal Confidentiality of Alcohol and Drug Abuse Patient Records regulations: The Federal rules restrict any use of the information to criminally investigate or prosecute any alcohol or drug abuse patient.[facility] CenterIn the event this information is protected by the Federal Confidentiality of Alcohol and Drug Abuse Patient Records regulations: The Federal rules restrict any use of the information to criminally investigate or prosecute any alcohol or drug abuse patient.[facility] CenterIn the event this information is protected by the Federal Confidentiality of Alcohol and Drug Abuse Patient Records regulations: The Federal rules restrict any use of the information to criminally investigate or prosecute any alcohol or drug abuse patient.[facility] CenterIn the event this information is protected by the Federal Confidentiality of Alcohol and Drug Abuse Patient Records regulations: The Federal rules restrict any use of the information to criminally investigate or prosecute any alcohol or drug abuse patient.[facility] CenterIn the event this information is protected by the Federal Confidentiality of Alcohol and Drug Abuse Patient Records regulations: The Federal rules restrict any use of the information to criminally investigate or prosecute any alcohol or drug abuse patient.[facility] CenterIn the event this information is protected by the Federal Confidentiality of Alcohol and Drug Abuse Patient Records regulations: The Federal rules restrict any use of the information to criminally investigate or prosecute any alcohol or drug abuse patient.[facility] CenterIn the event this information is protected by the Federal Confidentiality of Alcohol and Drug Abuse Patient Records regulations: The Federal rules restrict any use of the information to criminally investigate or prosecute any alcohol or drug abuse patient.[facility] CenterIn the event this information is protected by the Federal Confidentiality of Alcohol and Drug Abuse Patient Records regulations: The Federal rules restrict any use of the information to criminally investigate or prosecute any alcohol or drug abuse patient.[facility] CenterIn the event this information is protected by the Federal Confidentiality of Alcohol and Drug Abuse Patient Records regulations: The Federal rules restrict any use of the information to criminally investigate or prosecute any alcohol or drug abuse patient.[facility] CenterIn the event this information is protected by the Federal Confidentiality of Alcohol and Drug Abuse Patient Records regulations: The Federal rules restrict any use of the information to criminally investigate or prosecute any alcohol or drug abuse patient.[facility] CenterIn the event this information is protected by the Federal Confidentiality of Alcohol and Drug Abuse Patient Records regulations: The Federal rules restrict any use of the information to criminally investigate or prosecute any alcohol or drug abuse patient.[facility] CenterIn the event this information is protected by the Federal Confidentiality of Alcohol and Drug Abuse Patient Records regulations: The Federal rules restrict any use of the information to criminally investigate or prosecute any alcohol or drug abuse patient.[facility] CenterIn the event this information is protected by the Federal Confidentiality of Alcohol and Drug Abuse Patient Records regulations: The Federal rules restrict any use of the information to criminally investigate or prosecute any alcohol or drug abuse patient.[facility] CenterIn the event this information is protected by the Federal Confidentiality of Alcohol and Drug Abuse Patient Records regulations: The Federal rules restrict any use of the information to criminally investigate or prosecute any alcohol or drug abuse patient.[facility] CenterIn the event this information is protected by the Federal Confidentiality of Alcohol and Drug Abuse Patient Records regulations: The Federal rules restrict any use of the information to criminally investigate or prosecute any alcohol or drug abuse patient.[facility] CenterIn the event this information is protected by the Federal Confidentiality of Alcohol and Drug Abuse Patient Records regulations: The Federal rules restrict any use of the information to criminally investigate or prosecute any alcohol or drug abuse patient.[facility] CenterIn the event this information is protected by the Federal Confidentiality of Alcohol and Drug Abuse Patient Records regulations: The Federal rules restrict any use of the information to criminally investigate or prosecute any alcohol or drug abuse patient.[facility] CenterIn the event this information is protected by the Federal Confidentiality of Alcohol and Drug Abuse Patient Records regulations: The Federal rules restrict any use of the information to criminally investigate or prosecute any alcohol or drug abuse patient.[facility] CenterIn the event this information is protected by the Federal Confidentiality of Alcohol and Drug Abuse Patient Records regulations: The Federal rules restrict any use of the information to criminally investigate or prosecute any alcohol or drug abuse patient.[facility] CenterIn the event this information is protected by the Federal Confidentiality of Alcohol and Drug Abuse Patient Records regulations: The Federal rules restrict any use of the information to criminally investigate or prosecute any alcohol or drug abuse patient.[facility] CenterIn the event this information is protected by the Federal Confidentiality of Alcohol and Drug Abuse Patient Records regulations: The Federal rules restrict any use of the information to criminally investigate or prosecute any alcohol or drug abuse patient.[facility] CenterIn the event this information is protected by the Federal Confidentiality of Alcohol and Drug Abuse Patient Records regulations: The Federal rules restrict any use of the information to criminally investigate or prosecute any alcohol or drug abuse patient.[facility] CenterIn the event this information is protected by the Federal Confidentiality of Alcohol and Drug Abuse Patient Records regulations: The Federal rules restrict any use of the information to criminally investigate or prosecute any alcohol or drug abuse patient.[facility] CenterIn the event this information is protected by the Federal Confidentiality of Alcohol and Drug Abuse Patient Records regulations: The Federal rules restrict any use of the information to criminally investigate or prosecute any alcohol or drug abuse patient.[facility] CenterIn the event this information is protected by the Federal Confidentiality of Alcohol and Drug Abuse Patient Records regulations: The Federal rules restrict any use of the information to criminally investigate or prosecute any alcohol or drug abuse patient.[facility] Reason for Visit (unrecogniz ed section and [...] & W/CONTRAST MATERIAL Juan Blanton Jr., MD [address] [place] [address] [place] [address] Referral ID Status Reason Start Date Expiration Date V isits Requested Visits Authorized [id number] Closed Auto-Generate d Referral 2023 08/17/2024 1 [...] MDM 60 MINUTES Juan Blanton Jr., MD [address] [place] [address] Referral ID Status Reason Start Date Expiration Date V isits Requested Visits Authorized [id number] Closed PCP Requested Referral 01/03/2024 01/02/2025 1 [...] COMPUTED TOMOGRAPHY THORAX W/O Ailin Xiao MD [address] [place] [address] Phone: tel: fax: [place] [phone] Referral ID Status Reason Start Date Expiration Date V isits Requested Visits Authorized [id number] Closed Auto-Generate d Referral 12/11/2024 01/10/2026 1 1 Reason Comments Patient Update Reason Onset Date Comments Transition Of Care 12/26/2024 TCM Inpatient reach in Care Teams (unrecognized sec tion and content) Lines Tender Relationship Specialty Start Date End Date Ailin Pierson MD [address] [place], [place] [id number] PCP - General Internal Medicine 02/21/16 Lines Tender Relationship Specialty Start Date End Date Ailin Pierson MD [address] [place] [address] PCP - General Internal Medicine 02/21/16 Lines Tender Relationship Specialty Start Date End Date Ailin Pierson MD [address] [place] [address] PCP - General Internal Medicine 02/21/16 Lines Tender Relationship Specialty Start Date End Date Ailin Pierson MD [address] [place], [place] [address] PCP - General Internal Medicine 02/21/16 Lines Tender Relationship Specialty Start Date End Date Ailin Pierson MD [address] [place] [address] PCP - General Internal Medicine 02/21/16 Lines Tender Relationship Specialty Start Date End Date Ailin Pierson MD [address] [place], [place] [id number] PCP - General Internal Medicine 02/21/16 Lines Tender Relationship Specialty Start Date End Date Ailin Pierson MD [address] [place], [place] [address] PCP - General Internal Medicine 02/21/16 Lines Tender Relationship Specialty Start Date End Date Ailin Pierson MD [address] [place] [address] PCP - General Internal Medicine 02/21/16 Lines Tender Relationship Specialty Start Date End Date Ailin Pierson MD [address] [place] [address] PCP - General Internal Medicine 02/21/16 Lines Tender Relationship Specialty Start Date End Date Ailin Pierson MD [address] [place] [address] PCP - General Internal Medicine 02/21/16 Lines Tender Relationship Specialty Start Date End Date Ailin Pierson MD [address] [place] [address] PCP - General Internal Medicine 02/21/16 Lines Tender Relationship Specialty Start Date End Date Ailin Pierosn MD [address] [place] [address] PCP - General Internal Medicine 02/21/16 Lines Tender Relationship Specialty Start Date End Date Ailin Pierson MD [address] [place] [address] PCP - General Internal Medicine 02/21/16 Lines Tender Relationship Specialty Start Date End Date Ailin Pierson MD [address] [place] [address] PCP - General Internal Medicine 02/21/16 Lines Tender Relationship Specialty Start Date End Date Ailin Pierson MD [address] [place] [address] PCP - General Internal Medicine 02/21/16 Lines Tender Relationship Specialty Start Date End Date Ailin Pierson MD [address] [place] [address] PCP - General Internal Medicine 02/21/16 Lines Tender Relationship Specialty Start Date End Date Ailin Pierson MD [address] [place] [address] PCP - General Internal Medicine 02/21/16 Lines Tender Relationship Specialty Start Date End Date Ailin Pierson MD [address] [place] [address] PCP - General Internal Medicine 02/21/16 Lines Tender Relationship Specialty Start Date End Date Ailin Pierson MD [address] [place] [address] PCP - General Internal Medicine 02/21/16 Lines Tender Relationship Specialty Start Date End Date Ailin Pierson MD [address] [place] [address] PCP - General Internal Medicine 02/21/16 Lines Tender Relationship Specialty Start Date End Date Ailin Pierson MD [address] [place] [address] PCP - General Internal Medicine 02/21/16 Lines Tender Relationship Specialty Start Date End Date Ailin Pierson MD [address] [place] [address] PCP - General Internal Medicine 02/21/16 Lines Tender Relationship Specialty Start Date End Date Ailin Pierson MD [address] [place] [address] PCP - General Internal Medicine 02/21/16 Vince Huffman MD [address] [place] [address] Radiation Oncology 01/04/24 Lines Tender Relationship Specialty Start Date End Date Ailin Pierson MD [address] [place] [address] PCP - General Internal Medicine 02/21/16 Vince Huffman MD [address] [place] [address] Radiation Oncology 01/04/24 Lines Tender Relationship Specialty Start Date End Date Ailin Pierson MD [address] [place] [address] PCP - General Internal Medicine 02/21/16 Vince Huffman MD [address] [place] [address] Radiation Oncology 01/04/24 Lines Tender Relationship Specialty Start Date End Date Ailin Pierson MD [address] [place] [address] PCP - General Internal Medicine 02/21/16 Vince Huffman MD [address] [place] [address] Radiation Oncology 01/04/24 Lines Tender Relationship Specialty Start Date End Date Ailin Pierson MD [address] [place] [address] PCP - General Internal Medicine 02/21/16 Vince Huffman MD [address] [place] [address] Radiation Oncology 01/04/24 Lines Tender Relationship Specialty Start Date End Date Ailin Pierson MD [address] [place] [address] PCP - General Internal Medicine 02/21/16 Vince Huffman MD [address] [place] [address] Radiation Oncology 01/04/24 Lines Tender Relationship Specialty Start Date End Date Ailin Pierson MD [address] [place] [address] PCP - General Internal Medicine 02/21/16 Vince Huffman MD [address] [place] [address] Radiation Oncology 01/04/24 Lines Tender Relationship Specialty Start Date End Date Ailin Pierson MD [address] [place] [address] PCP - General Internal Medicine 02/21/16 Vince Huffman MD [address] [place] [address] Radiation Oncology 01/04/24 Carley Armenta PA-C [address] [place] [address] Emergency Department Nurse Family Medicine 05/06/24 Kayla Betancourt APRN.HARD METALS HAND ENGRAVER [address] [place] [address] Emergency Department Nurse Internal Medicine 05/06/24 Nancy Villarreal PA-C [address] [place] [address] Emergency Department Nurse Family Medicine 05/06/24 Lines Tender Relationship Specialty Start Date End Date Ailin Pierson MD [address] [place] [address] PCP - General Internal Medicine 02/21/16 Vince Huffman MD [address] [place] [address] Radiation Oncology 01/04/24 Carley Armenta PA-C [address] [place] [address] Emergency Department Nurse Family Medicine 05/06/24 Kayla Betancourt APRN.HARD METALS HAND ENGRAVER [address] [place] [address] Emergency Department Nurse Internal Medicine 05/06/24 Nancy Villarreal PA-C [address] [place] [address] Emergency Department Nurse Family Medicine 05/06/24 Lines Tender Relationship Specialty Start Date End Date Ailin Pierson MD [address] [place] [address] PCP - General Internal Medicine 02/21/16 Vince Huffman MD [address] [place] [address] Radiation Oncology 01/04/24 Carley Armenta PA-C [address] [place] [address] Emergency Department Nurse Family Medicine 05/06/24 Kayla Betancourt APRN.HARD METALS HAND ENGRAVER [address] [facility] [place] [address] Emergency Department Nurse Internal Medicine 05/06/24 Nancy Villarreal PA-C [address] [place] [address] Emergency Department Nurse Family Medicine 05/06/24 Lines Tender Relationship Specialty Start Date End Date Ailin Pierson MD [address] [place] [address] PCP - General Internal Medicine 02/21/16 Vince Huffman MD [address] [facility] [place] [address] Radiation Oncology 01/04/24 Carley Armenta PA-C [address] [place] [address] Emergency Department Nurse Family Medicine 05/06/24 Kayla Betancourt APRN.HARD METALS HAND ENGRAVER [address] [place] [address] Emergency Department Nurse Internal Medicine 05/06/24 Nancy Villarreal PA-C [address] [place] [address] Emergency Department Nurse Family Medicine 05/06/24 Lines Tender Relationship Specialty Start Date End Date Ailin Pierson MD [address] [place] [address] PCP - General Internal Medicine 02/21/16 Vince Huffman MD [address] [place] [address] Radiation Oncology 01/04/24 Carley Armenta PA-C [address] [place] [address] Emergency Department Nurse Family Medicine 05/06/24 Kayla Betancourt APRN.HARD METALS HAND ENGRAVER [address] [facility] [place] [address] Emergency Department Nurse Internal Medicine 05/06/24 Nancy Villarreal PA-C [address] [place] [address] Emergency Department Nurse Family Medicine 05/06/24 Lines Tender Relationship Specialty Start Date End Date Ailin Pierson MD [address] [facility] [place] [address] PCP - General Internal Medicine 02/21/16 Vince Huffman MD [address] [place] [address] Radiation Oncology 01/04/24 Carley Armenta PA-C [address] [place] [address] Emergency Department Nurse Family Medicine 05/06/24 Kayla Betancourt APRN.HARD METALS HAND ENGRAVER [address] [place] [address] Emergency Department Nurse Internal Medicine 05/06/24 Nancy Villarreal PA-C [address] [place] [address] [facility] Family [facility] 05/06/24 Lines Tender Relationship Specialty Start Date End Date Ailin Pierson MD [address] [place] [address] PCP - General Internal Medicine 02/21/16 Vince Huffman MD [address] [place] [address] Radiation Oncology 01/04/24 Carley Armenta PA-C [address] [place] [address] [facility]ly [facility] 05/06/24 Kayla Betancourt APRN.CNP [address] [place] [address] Emergency Department Nurse Internal Medicine 05/06/24 Nancy Villarreal PA-C [address] [place] [address] [facility]ly [facility] 05/06/24 Lines Tender Relationship Specialty Start Date End Date Ailin Pierson MD [address] [place] [address] PCP - General Internal Medicine 02/21/16 Vince Huffman MD [address] [place] [address] Radiation Oncology 01/04/24 Carley Armenta PA-C [address] [place] [address] Emergency Department Nurse Family Medicine 05/06/24 Kayla Betancourt APRN.HARD METALS HAND ENGRAVER [address] [place] [address] Emergency Department Nurse Internal Medicine 05/06/24 Nancy Villarreal PA-C [address] [place] [address] Emergency Department Nurse Family Medicine 05/06/24 Lines Tender Relationship Specialty Start Date End Date Ailin Pierson MD [address] [place] [address] PCP - General Internal Medicine 02/21/16 Vince Huffman MD [address] [place] [address] Radiation Oncology 01/04/24 Carley Armenta PA-C [address] [place] [address] Emergency Department Nurse Family Medicine 05/06/24 Kayla Betancourt APRN.HARD METALS HAND ENGRAVER [address] [place] [address] Emergency Department Nurse Internal Medicine 05/06/24 Nancy Villarreal PA-C [address] [place] [address] Emergency Department Nurse Family Medicine 05/06/24 Lines Tender Relationship Specialty Start Date End Date Ailin Pierson MD [address] [place] [address] PCP - General Internal Medicine 02/21/16 Vince Huffman MD [address] [place] [address] Radiation Oncology 01/04/24 Carley Armenta PA-C [address] [place] [address] Emergency Department Nurse Family Medicine 05/06/24 Kayla Betancourt APRN.HARD METALS HAND ENGRAVER [address] [place] [address] Emergency Department Nurse Internal Medicine 05/06/24 Nancy Villarreal PA-C [address] [place] [address] Emergency Department Nurse Family Medicine 05/06/24 Lines Tender Relationship Specialty Start Date End Date Ailin Pierson MD [address] [place] [address] PCP - General Internal Medicine 02/21/16 Vince Huffman MD [address] [place] [address] Radiation Oncology 01/04/24 Carley Armenta PA-C [address] [place] [address] Emergency Department Nurse Family Medicine 05/06/24 Kayla Betancourt APRN.HARD METALS HAND ENGRAVER [address] [place] [address] Emergency Department Nurse Internal Medicine 05/06/24 Nancy Villarreal PA-C [address] [place] [address] [facility] Lines Tender Relationship Specialty Start Date End Date Ailin Pierson MD [address] [place] [address] PCP - General Internal Medicine 02/21/16 Vince Huffman MD [address] [place] [address] Radiation Oncology 01/04/24 Carley Armenta PA-C [address] [place] [address] [facility] 05/06/24 Kayla Betancourt APRN.HARD METALS HAND ENGRAVER [address] [place] [address] Emergency Department Nurse Internal Medicine 05/06/24 Nancy Villarreal PA-C [address] [place] [address] Formerly [facility] 05/06/24 Lines Tender Relationship Specialty Start Date End Date Ailin Pierson MD [address] [place] [address] PCP - General Internal Medicine 02/21/16 Vince Huffman MD [address] [place] [address] Radiation Oncology 01/04/24 Carley Armenta PA-C [address] [place] [address] Emergency Department Nurse Family Medicine 05/06/24 Kayla Betancourt APRN.HARD METALS HAND ENGRAVER [address] [place] [address] Emergency Department Nurse Internal Medicine 05/06/24 Nancy Villarreal PA-C [address] [place] [address] Emergency Department Nurse Family Medicine 05/06/24 Lines Tender Relationship Specialty Start Date End Date Ailin Pierson MD [address] [place] [address] PCP - General Internal Medicine 02/21/16 Vince Huffman MD [address] [place] [address] Radiation Oncology 01/04/24 Carley Armenta PA-C [address] [place] [address] Emergency Department Nurse Family Medicine 05/06/24 Kayla Betancourt APRN.HARD METALS HAND ENGRAVER [address] [place] [address] Emergency Department Nurse Internal Medicine 05/06/24 Nancy Villarreal PA-C [address] [place] [address] Emergency Department Nurse Family Medicine 05/06/24 Lines Tender Relationship Specialty Start Date End Date Ailin Pierson MD [address] [place] [address] PCP - General Internal Medicine 02/21/16 Vince Huffman MD [address] [place] [address] Radiation Oncology 01/04/24 Carlye Armenta PA-C [address] [place] [address] Emergency Department Nurse Family Medicine 05/06/24 Kayla Betancourt APRN.HARD METALS HAND ENGRAVER [address] [place] [address] Emergency Department Nurse Internal Medicine 05/06/24 Nancy Villarreal PA-C [address] [place] [address] Emergency Department Nurse Family Medicine 05/06/24 Lines Tender Relationship Specialty Start Date End Date Ailin Pierson MD [address] [place] [address] PCP - General Internal Medicine 02/21/16 Vince Huffman MD [address] [facility] [place] [place] [address] Radiation Oncology 01/04/24 Carley Armenta PA-C [address] [place] [address] Emergency Department Nurse Family Medicine 05/06/24 Kayla Betancourt APRN.HARD METALS HAND ENGRAVER [address] [place] [address] Emergency Department Nurse Internal Medicine 05/06/24 Nancy Villarreal PA-C [address] [place] [address] Emergency Department Nurse Family Medicine 05/06/24 Lines Tender Relationship Specialty Start Date End Date Ailin Pierson MD [address] [place] [address] PCP - General Internal Medicine 02/21/16 Vince Huffman MD [address] [place] [address] Radiation Oncology 01/04/24 Carley Armenta PA-C [address] [place] [address] Emergency Department Nurse Family Medicine 05/06/24 Kayla Betancourt APRN.HARD METALS HAND ENGRAVER [address] [place] [address] Emergency Department Nurse Internal Medicine 05/06/24 Nancy Villarreal PA-C [address] [place] [address] Emergency Department Nurse Family Medicine 05/06/24 Lines Tender Relationship Specialty Start Date End Date Ailin Pierson MD [address] [place] [address] PCP - General Internal Medicine 02/21/16 Vince Huffman MD [address] [place] [address] Radiation Oncology 01/04/24 Carlye Armenta PA-C [address] [place] [address] Emergency Department Nurse Family Medicine 05/06/24 Kayla Betancourt APRN.HARD METALS HAND ENGRAVER [address] [facility] [place] [address] Emergency Department Nurse Internal Medicine 05/06/24 Nancy Villarreal PA-C [address] [place] [address] [facility] Family [facility] 05/06/24 Lines Tender Relationship Specialty Start Date End Date Ailin Pierson MD [address] [place] [address] PCP - General Internal Medicine 02/21/16 Vince Huffman MD [address] [place] [address] Radiation Oncology 01/04/24 Carley Armenta PA-C [address] [place] [address] Formerly [facility] 05/06/24 Kayla Betancourt APRN.CNP [address] [place] [address] Emergency Department Nurse Internal Medicine 05/06/24 Nancy Villarreal PA-C [address] [place] [address] [facility]ly [facility] 05/06/24 Lines Tender Relationship Specialty Start Date End Date Ailin Pierson MD [address] [place] [address] PCP - General Internal Medicine 02/21/16 Vince Huffman MD [address] [place] [address] Radiation Oncology 01/04/24 Carley Armenta PA-C [address] [place] [address] Emergency Department Nurse Family Medicine 05/06/24 Kayla Betancourt APRN.HARD METALS HAND ENGRAVER [address] [place] [address] Emergency Department Nurse Internal Medicine 05/06/24 Nancy Villarreal PA-C [address] [place] [address] Emergency Department Nurse Family Medicine 05/06/24 Lines Tender Relationship Specialty Start Date End Date Ailin Pierson MD [address] [place] [address] PCP - General Internal Medicine 02/21/16 Vince Huffman MD [address] [place] [address] Radiation Oncology 01/04/24 Kayla Betancourt APRN.HARD METALS HAND ENGRAVER [address] [place] [address] Emergency Department Nurse Internal Medicine 05/06/24 Lines Tender Relationship Specialty Start Date End Date Ailin Pierson MD [address] [place] [address] PCP - General Internal Medicine 02/21/16 Vince Huffman MD [address] [place] [address] Radiation Oncology 01/04/24 Kayla Betancourt APRN.HARD METALS HAND ENGRAVER [address] [place] [address] Emergency Department Nurse Internal Medicine 05/06/24 Team Status: Active Member [...] August 29, 2024 End: August 29, 2024 Lines Tender Relationship Specialty Start Date End Date Ailin Pierson MD [address] [facility] [place] [address] PCP - General Internal Medicine 02/21/16 Vince Huffman MD [address] [place] [address] Radiation Oncology 01/04/24 Kayla Betancourt APRN.HARD METALS HAND ENGRAVER [address] [facility] [place] [address]81 Emergency Department Nurse Internal Medicine 05/06/24 Lines Tender Relationship Specialty Start Date End Date Ailin Pierson MD [address] [facility] [place] [address] PCP - General Internal Medicine 02/21/16 Vince Huffman MD [address] [place] [address] Radiation Oncology 01/04/24 Kayla Betancourt APRN.HARD METALS HAND ENGRAVER [address] [place] [address] Emergency Department Nurse Internal Medicine 05/06/24 Lines Tender Relationship Specialty Start Date End Date Ailin Pierson MD [address] [place] [address] PCP - General Internal Medicine 02/21/16 Vince Huffman MD [address] [place] [address] Radiation Oncology 01/04/24 Kayla Betancourt APRN.HARD METALS HAND ENGRAVER [address] [place] [address] Emergency Department Nurse Internal Medicine 05/06/24 Lines Tender Relationship Specialty Start Date End Date Ailin Pierson MD [address] [place] [address] PCP - General Internal Medicine 02/21/16 Vince Huffman MD [address] [place] [address] Radiation Oncology 01/04/24 Kayla Betancourt APRN.HARD METALS HAND ENGRAVER [address] [place] [address] Emergency Department Nurse Internal Medicine 05/06/24 Lines Tender Relationship Specialty Start Date End Date Ailin Pierson MD [address] [place] [address] PCP - General Internal Medicine 02/21/16 Vince Huffman MD [address] [place] [address] Radiation Oncology 01/04/24 Kayla Betancourt APRN.HARD METALS HAND ENGRAVER [address] [place] [address] Emergency Department Nurse Internal Medicine 05/06/24 Lines Tender Relationship Specialty Start Date End Date Ailin Pierson MD [address] [place] [address] PCP - General Internal Medicine 02/21/16 Vince Huffman MD [address] [place] [address] Radiation Oncology 01/04/24 Kayla Betancourt APRN.HARD METALS HAND ENGRAVER [address] [place] [address] Emergency Department Nurse Internal Medicine 05/06/24 Lines Tender Relationship Specialty Start Date End Date Ailin Pierson MD [address] [place] [address] PCP - General Internal Medicine 02/21/16 Vince Huffman MD [address] [place] [address] Radiation Oncology 01/04/24 Kayla Betancourt APRN.HARD METALS HAND ENGRAVER [address] [place] [address] Emergency Department Nurse Internal Medicine 05/06/24 Lines Tender Relationship Specialty Start Date End Date Ailin Pierson MD [address] [place] [address] PCP - General Internal Medicine 02/21/16 Vince Huffman MD [address] [place] [address] Radiation Oncology 01/04/24 Kayla Betancourt APRN.HARD METALS HAND ENGRAVER [address] [place] [address] [facility] Internal Medicine 05/06/24 Lines Tender Relationship Specialty Start Date End Date Ailin Pierson MD [address] [place] [address] PCP - General Internal Medicine 02/21/16 Vince Huffman MD [address] [place] [address] Radiation Oncology 01/04/24 Kayla Betancourt APRN.HARD METALS HAND ENGRAVER [address] [place] [address] Emergency Department Nurse Internal Medicine 05/06/24 Lines Tender Relationship Specialty Start Date End Date Ailin Pierson MD [address] [place] [address] PCP - General Internal Medicine 02/21/16 Vince Huffman MD [address] [place] [address] Radiation Oncology 01/04/24 Kayla Betancourt APRN.HARD METALS HAND ENGRAVER [address] [place] [address] Emergency Department Nurse Internal Medicine 05/06/24 Lines Tender Relationship Specialty Start Date End Date Ailin Pierson MD [address] [place] [address] PCP - General Internal Medicine 02/21/16 Vince Hfufman MD [address] [place] [address] Radiation Oncology 01/04/24 Kayla Betancourt APRN.HARD METALS HAND ENGRAVER [address] [place] [address] Emergency Department Nurse Internal Medicine 05/06/24 Lines Tender Relationship Specialty Start Date End Date Ailin Pierson MD [address] [place] [address] PCP - General Internal Medicine 02/21/16 Vince Huffman MD [address] [place] [address] Radiation Oncology 01/04/24 Kayla Betancourt APRN.HARD METALS HAND ENGRAVER [address] [place] [address] Emergency Department Nurse Internal Medicine 05/06/24 Lines Tender Relationship Specialty Start Date End Date Ailin Pierson MD [address] [place] [address] PCP - General Internal Medicine 02/21/16 Vince Huffman MD [address] [place] [address] Radiation Oncology 01/04/24 Kayla Betancourt, ELEVATOR TENDER.HARD METALS HAND ENGRAVER [address] [place] [address] Emergency Department Nurse Internal Medicine 05/06/24 Lines Tender Relationship Specialty Start Date End Date Ailin Pierson MD [address] [place] [address] PCP - General Internal Medicine 02/21/16 Vince Huffman MD [address] [place] [address] Radiation Oncology 01/04/24 Kayla Betancourt, ELEVATOR TENDER.HARD METALS HAND ENGRAVER [address] [place] [address] Emergency Department Nurse Internal Medicine 05/06/24 Lines Tender Relationship Specialty Start Date End Date Ailin Pierson MD [address] [place] [address] PCP - General Internal Medicine 02/21/16 Vince Huffman MD [address] [place] [address] Radiation Oncology 01/04/24 Kayla Betancourt, ELEVATOR TENDER.HARD METALS HAND ENGRAVER [address] [place] [address] Emergency Department Nurse Internal Medicine 05/06/24 Lines Tender Relationship Specialty Start Date End Date Ailin Pierson MD [address] [place] [address] PCP - General Internal Medicine 02/21/16 Vince Huffamn MD [address] [place] [address] Radiation Oncology 01/04/24 Kayla Betancourt APRN.HARD METALS HAND ENGRAVER [address] [place] [address] Emergency Department Nurse Internal Medicine 05/06/24 Sophia Garay RN Primary Care Unit Manager Rn 12/03/24 Lines Tender Relationship Specialty Start Date End Date Ailin Pierson MD [address] [place] [address] PCP - General Internal Medicine 02/21/16 Vince Huffman MD [address] [place] [address] Radiation Oncology 01/04/24 Kayla Betancourt APRN.HARD METALS HAND ENGRAVER [address] [place] [address] Emergency Department Nurse Internal Medicine 05/06/24 Sophia Garay RN Primary Care Unit Manager Rn 12/03/24 Lines Tender Relationship Specialty Start Date End Date Ailin Pierson MD [address] [place] [address] PCP - General Internal Medicine 02/21/16 Vince Huffman MD [address] [place] [address] Radiation Oncology 01/04/24 Kayla Betancourt APRN.HARD METALS HAND ENGRAVER [address] [place] [address] Emergency Department Nurse Internal Medicine 05/06/24 Jarrod, Sophia, environmental health aide Unit Manager Rn 12/03/24 Lines Tender Relationship Specialty Start Date End Date Ailin Pierson MD [address] [place] [address] PCP - General Internal Medicine 02/21/16 Vince Huffman MD [address] [place] [address] Radiation Oncology 01/04/24 Older, RAMESH GarzaN.HARD METALS HAND ENGRAVER [address] [place] [address] Emergency Department Nurse Internal Medicine 05/06/24 Sophia Garay RN Primary Care Unit Manager Rn 12/03/24 Lines Tender Relationship Specialty Start Date End Date Ailin Pierson MD [address] [place] [address] PCP - General Internal Medicine 02/21/16 Vince Huffman MD [address] [place] [address] Radiation Oncology 01/04/24 Kayla Betancourt, ELEVATOR TENDER.HARD METALS HAND ENGRAVER [address] [place] [address] Emergency Department Nurse Internal Medicine 05/06/24 Sophia Garay, environmental health aide Unit Manager Rn 12/03/24 Lines Tender Relationship Specialty Start Date End Date Ailin Pierson MD [address] [place] [address] PCP - General Internal Medicine 02/21/16 Vince Huffman MD [address] [place] [address] Radiation Oncology 01/04/24 Kayla Betancourt APRN.HARD METALS HAND ENGRAVER [address] [place] [address] Emergency Department Nurse Internal Medicine 05/06/24 Sophia Garay, environmental health aide Unit Manager Rn 12/03/24 Lines Tender Relationship Specialty Start Date End Date Ailin Pierson MD [address] [place] [address] PCP - General Internal Medicine 02/21/16 Vince Huffman MD [address] [place] [address] Radiation Oncology 01/04/24 Kayla Betancourt APRN.HARD METALS HAND ENGRAVER [address] [place] [address] Emergency Department Nurse Internal Medicine 05/06/24 Sophia Garay, environmental health aide Unit Manager Rn 12/03/24 12/25/24 Lines Tender Relationship Specialty Start Date End Date Ailin Pierson MD [address] [place] [address] PCP - General Internal Medicine 02/21/16 Vince Huffman MD [address] [place] [address] Radiation Oncology 01/04/24 Kayla Betancourt APRN.HARD METALS HAND ENGRAVER [address] [place] [address] Emergency Department Nurse Internal Medicine 05/06/24 Lines Tender Relationship Specialty Start Date End Date Ailin Pierson MD [address] [place] [address] PCP - General Internal Medicine 02/21/16 Vince Huffman MD [address] [place] [id number] Radiation Oncology 01/04/24 Kayla Betancourt APRN.HARD METALS HAND ENGRAVER [address] [place] [id number] Emergency Department Nurse Internal Medicine 05/06/24 Joseluis Lawton, RN [address] [place] [address] Primary Care Unit Manager Rn Unspecified 12/28/24 FOR RECORDS PERTAINING TO PATIENTS [...] BE BASED ON THE PRIMARY CLINICAL RECORDS. [facility] [employer] provides no warranty or guarantee of the accuracy or completeness of information in this document.
--- NOTE | 2025-01-06 14:50 | CT_ITS ---
PROCEDURE: ABDOMEN/PELVIS W IV CONT ONLY 01/06/2025 REASON FOR EXAM: DYSURIA TECHNIQUE: ABDOMEN/PELVIS W IV CONT ONLY Coronal and Sagittal reconstruction series were provided. CONTRAST: Isovue 370 VOLUME: 100 mL One or more dose reduction techniques were used (e.g., Automated exposure control, adjustment of the mA and/or kV according to patient size, use of iterative reconstruction technique. RADIATION DOSE SUMMARY: DLP: 1600 mGycm COMPARISON: CT abdomen pelvis 08/29/2024. FINDINGS: Lung bases: Bibasilar atelectasis/scarring. Liver: The liver is normal in size without suspicious hepatic mass. The major portal veins are patent. No biliary ductal dilation. Gallbladder: No radiopaque stones within the gallbladder. Spleen: Normal in size. Pancreas: Unremarkable. Adrenals: No adrenal mass. Kidneys: Simple bilateral renal cysts. No hydronephrosis or nephrolithiasis. Bladder: The urinary bladder is moderately distended with severe, marked wall thickening and enhancement, and periserosal stranding. Reproductive Organs: Probable interval TURP. Bowel: The bowel loops are nondilated. No large volume ascites or free air. Normal appendix. Lymph nodes: No suspicious lymphadenopathy. Vasculature: At least moderate mixed plaque of the aortoiliac vessels. Bones: Thoracolumbar spondylosis with multilevel chronic vertebral body height loss. Stable, chronic left L1-L3 transverse process fracture deformities. Additional chronic appearing right L4-5 transverse process fracture deformities. Chronic bilateral rib fracture deformities. CT/Abdomen/Pelvis W IV Cont ONLY IMPRESSION: Severe wall thickening and enhancement, with periserosal edema, compatible with cystitis, such as infectious, from medications (such as chemotherapy), neoplastic or idiopathic. Correlation with urinalysis and urologic consultation recommended. Reading Location: [id number]
--- NOTE | 2025-01-06 15:09 | CASEMGMT ---
Care Management Face to Face with patient for initial transition planning/care coordination assessment in the ED.? This process description writer introduced self and role at [facility]. Patient alert and oriented. Patient willing to participate in assessment and is able to answer most questions appropriately.?Patient did have problems remembering some details. ?Care providers, pharmacy, and demographics verified. Admitting Diagnosis: Acute UTI Other diagnosis history: Including but may not be limited to: Closed fracture of right elbow, Leukocytosis, Kidney Stones, Asthma, Hypertension. Rhabdomyolysis and Acute on Urinary Retention. PCP: Dr. Ailin Magallon Specialists: Neurologist: Patient unable to remember name but stated is through [facility] and Radiation Oncology: Dr. Huffman. Patient stated he was supposed to get connected to a manager clinical applications however cancelled his first appointment and has to reschedule. Preferred Pharmacy: [facility] Insurance: Medicare Part A and B Prescription Benefit: Yes Living Will/HPOA: Yes, but not on file. LNOK: Patient is a . Patient has 2 sons, Ariel of [place] and Brayden of [place]. Patient described both as supportive. Living Arrangements: Patient lives alone in a [id number] with a basement. Patient described all first floor living and stated he does not utilize the basement. Patient denied any steps leading in/out of the house and denied any environmental barriers. Transportation: Patient drives and denied any transportation barriers. DME: Grab bars in the shower, grab bars by the toilet, [id number], shower chair, standard walker, quad cane and a walking stick. HHC: Patient stated he?s previously had HHC which included PT and OT when he ?broke bones? however wasn?t able to say who through or provide a timeframe. Patient stated he also had skilled following previous knee operations. SNF/Rehab: Denied Community Resources: Denied any formal agencies however patient described his neighbors as good resources/supports to him when needed. Behavioral Health History: Denied Patient goals: Patient wishes to discharge home, denies need for home health care at this time. Patient denies any further needs or concerns at this time. Disposition Plan: admission to acute; RN CM/SW to follow for discharge planning needs that may arise. Rochelle Bonilla, [employer] TEACHER, CLINICAL SPECIALIST
--- NOTE | 2025-01-06 17:27 | PCM.CONS.GEN ---
Assessment & Plan Assessment/Plan (1) Acute UTI: PLAN: Very concerning that there may be something more involved as patient was discharged with appropriate antibiotics and was seen actually by infectious disease while he was here and just completed the antibiotics on the . He was not feeling well to begin with but then dysuria started today. With his CAT scan findings showing marked bladder wall thickening and concern for periserosal edema, cannot rule out abscess and given the patient recent TURP I did discuss this with the patient about staying here and seeing our urology team or going to his urologist (who normally at [facility] but the patient had a surgery at [facility]) he would request transfer. I discussed with Dr. Singh about facilitating that. PLAN: Plan BPH: Continue tamsulosin. Hypertension: Continue with lisinopril/HCTZ. At this point in time the patient is going to be transferred but if there is delay in acceptance or if urology does not feel is necessary then the hospital service can be recontacted for admission. HPI Consult Data Date of Consult: 01/06/25 HPI Narrative Reason for Consultation: Consult requested by Dr. Singh for UTI. HPI Narrative: DARLENE ISIDRO, is a 79 M who presents with dysuria. This is an 87-year-old male who on November 28 underwent cystoscopy and a TURP. He was subsequently admitted on December 24 and discharged on the with a UTI and was discharged with cephalexin. Patient completed the cephalexin on the . Since being discharged he has just felt weak and then started experiencing dysuria today. Patient's urine culture on the showed pansensitive E. coli. Patient presented emergency room today and had a white count of 12.9 and urinalysis that showed greater than 100 white blood cells, 2+ bacteria positive nitrates. Patient received ceftriaxone in the emergency room. Given how quickly he developed urinary symptoms after less than 24 hours of discontinuing the antibiotics a CAT scan was requested. CAT scan showed severe wall thickening and enhancement with Vernon serosal edema, compatible with cystitis, such as infectious from medications, neoplastic or idiopathic. [facility] Medical History Fracture, ribs Fracture of transverse process of lumbar vertebra Contusion of left flank Fall Acute on chronic urinary retention Leukocytosis Closed fracture of right elbow Weakness Acute UTI Fever Rhabdomyolysis Fall Right elbow pain Kidney stones Non-smoker Asthma Hypertension Home Medications ?Medication ?Instructions ?Recorded ?Last Taken ?Type azelastine 137 mcg (0.1 %) nasal 1 spray intranasal DAILY nasal 05/22/24 06/19/24 History spray ergocalciferol (vitamin D2) 1,250 1,250 mcg PO .weekly bones 05/22/24 06/16/24 History mcg (50,000 unit) capsule lisinopril 10 1 tab PO DAILY bp 05/22/24 06/19/24 History mg-hydrochlorothiazide 12.5 mg tablet polyethylene glycol 3350 17 17 g PO DAILY PRN bowels 05/22/24 05/15/24 History gram/dose oral powder oxycodone 5 mg tablet 5 mg PO Q4H PRN PRN Pain Score 06/21/24 Unknown Rx 4-10 5 days #30 tabs phenazopyridine 200 mg tablet 200 mg PO TID 6 doses #6 tabs 08/29/24 Unknown Rx (Pyridium) colestipol 1 gram tablet 1 g PO BID 01/06/25 Unknown History tamsulosin 0.4 mg capsule 0.4 mg PO BID 01/06/25 Unknown History Allergy/AdvReac Type Severity Reaction Status Date / Time ramelteon Allergy hallucinati Verified 01/06/25 12:50 ons Surgical History (Updated 01/06/25 @ 17:[address] Darlene Dejesus DO) S/P TURP Knee joint replacement status H/O shoulder replacement Shoulder joint replacement by other means Social History housing: house Smoking Status: Never smoker ROS ROS Narrative Short of breath. All review of systems were negative except as mentioned above in the history of present illness and the other review of systems. Physical Exam Narrative - Physical Exam General: Alert, Oriented x3, Cooperative. On room air. Slightly hard of hearing. Nontoxic and afebrile. No respiratory distress. No conversational dyspnea. HEENT: Atraumatic, PERRLA, EOMI, Normocephalic Oral: Moist Mucosa, No Gingival or Mucosal Lesions/ Ulcerations Neck: Supple, No JVD, Negative Carotid Bruits Lungs: Clear to auscultation, Normal air movement Cardiovascular: Regular rate, Normal S1, Normal S2, No murmurs Abdomen: Bowel Sounds Present, Soft, Non Tender, Non-Distended, No Hepato-splenomegaly Extremities: No clubbing, No cyanosis, No edema, Capillary Refill Less than 3 Seconds Skin: No rashes, No breakdown Musculoskeletal: No Tenderness to Palpation of Joints or Extremities Neurological: Moves all extremity spontaneously Psych/Mental Status: Normal Affect, Appropriate Lab / Micro Data 01/06/25 13:55 01/06/25 13:55 Labs: Laboratory Results - last 24 hr 01/06/25 13:35: Urine Color Yellow, Urine Clarity Turbid, Urine pH 6.0, Ur Specific [place] 1.015, Urine Protein 500 H, Urine Glucose (UA) Normal, Urine Ketones Negative, Urine Occult Blood 250 H, Urine Nitrite Positive H, Urine Bilirubin Negative, Urine Urobilinogen Normal, Ur Leukocyte Esterase 500 H, Urine RBC 10-25 SEEN, Urine WBC >100 SEEN, Ur Squamous Epith Cells 0 SEEN, Urine Bacteria 2+, Urine Mucus 0 SEEN 01/06/25 13:55: WBC 12.9 H, RBC 2.74 L, Hgb 9.7 L, Hct 28.5 L, MCV 104.0 H, MCH 35.4 H, MCHC 34.0, RDW Std Deviation 47.4 H, RDW Coeff of Jam 12.5, Plt Count 234, MPV 8.6, Immature Gran % (Auto) 0.700, Neut % (Auto) 85.0 H, Lymph % (Auto) 5.6 L, [place] % (Auto) 7.7, Eos % (Auto) 0.6, Baso % (Auto) 0.4, Absolute Neuts (auto) 11.0 H, Absolute Lymphs (auto) 0.73 L, Nucleated RBC % 0, Sodium 133, Potassium 4.5, Chloride 98, Carbon Dioxide 22.7, Anion Gap 12, BUN 26 H, Creatinine 1.18, Estim Creat Clear Calc 62.81, Est GFR (MDRD) Non-Af 62, BUN/Creatinine Ratio 22.0 H, Glucose 103 H, Lactic Acid 1.4, Calcium 9.4 Imaging Radiology Impression Abdomen/Pelvis CT 01/06/25 14:50 IMPRESSION: Severe wall thickening and enhancement, with periserosal edema, compatible with cystitis, such as infectious, from medications (such as chemotherapy), neoplastic or idiopathic. Correlation with urinalysis and urologic consultation recommended. Reading Location: [id number] Charges/Coding Visit Charges Office Visits / Consults: 33707 OV L4 New 45min
[2025-01-07] VITALS: BP 112/66; PULSE 58; RESP 14; TEMP 36.7; O2SAT 98
[2025-01-07 01:00] VITALS: BP 121/73; PULSE 61; RESP 16; TEMP 36.9; O2SAT 97
== END 2025-01-07 01:36 | disposition other institution (70) ==
LOC: ED 14:38 → MS3 17:39
PROVIDERS: Emergency Provider Emergency Medicine; PCP Internal Medicine; Referring Provider Emergency Medicine; Visit Provider Emergency Medicine
DX: N39.0 Urinary tract infection, site not specified (principal); R53.1 Weakness; I10 Essential (primary) hypertension; Z79.899 Other long term (current) drug therapy
CPT/HCPCS: 74177; 80048; 81001; 83605; 85025; 87040; 87077; 87086; 87088; 87186; 96361; 96365; 96366; 99285; Q9967; A4216

== ENCOUNTER → 2025-02-04 | Outpatient (CLI) | payer MEDICARE, BC, SELFPAY | END | disposition home or self-care (01) | LOC: SL 19:28 | PROVIDERS: PCP Internal Medicine; Referring Provider Internal Medicine; Visit Provider Internal Medicine | DX: G47.33 Obstructive sleep apnea (adult) (pediatric) (principal) | CPT/HCPCS: 95810 ==

== ENCOUNTER → 2025-02-27 | Outpatient (CLI) | payer MEDICARE, BC, SELFPAY | END | disposition home or self-care (01) | LOC: SL 19:28 | PROVIDERS: PCP Internal Medicine; Referring Provider Internal Medicine; Visit Provider Internal Medicine | DX: G47.33 Obstructive sleep apnea (adult) (pediatric) (principal) | CPT/HCPCS: 95811 ==